=== PATIENT | male | born 1950 | race Caucasian/White ===

== ENCOUNTER 2020-03-17 08:34 | Outpatient (REF) | payer OTHER, SELFPAY ==
--- NOTE | 2020-03-17 | US_ITS ---
EXAMINATION: US RETROPERITONEAL LIMITED (AORTA) CLINICAL INFORMATION: Cardiovascular disorders. Smoker. COMPARISON: Ultrasound echo dated 03/15/2016 TECHNIQUE: Oleary-scale, color Doppler and spectral Doppler evaluation of the abdominal aorta. FINDINGS: The aorta is normal. The measurements of the aorta in maximum AP and transverse dimensions respectively are as follows: Proximal: 2.7 x 3.1 cm. Mid: 2.4 x 2.5 cm. Distal: 2.3 x 2.2 cm. PSV: 84.0 cm/s. The measurements of the common iliac arteries in maximum AP and TRV dimensions are as follows: AP: Right: 1.4 cm. Left: 1.4 cm. TRANS: Right: 1.5 cm. Left: 1.4 cm. US/US aorta IMPRESSION: There is a proximal abdominal aortic aneurysm that measures up to 3.1 cm in transverse dimension. Recommend continued attention on follow-up.
== END 2020-03-17 08:35 | disposition home or self-care (01) ==
LOC: HO.US 08:34
PROVIDERS: PCP Internal Medicine; Visit Provider Internal Medicine
DX: Z13.6 Encounter for screening for cardiovascular disorders (principal)
CPT/HCPCS: 76775

== ENCOUNTER → 2020-06-04 13:43 | Outpatient (BNVA) | payer OTHER, SELFPAY | PROVIDERS: PCP Internal Medicine; Visit Provider Internal Medicine Cardiovascular Disease | DX: I25.10 Atherosclerotic heart disease of native coronary artery without angina pectoris (principal); I10 Essential (primary) hypertension; I48.0 Paroxysmal atrial fibrillation | CPT/HCPCS: 93005 ==

== ENCOUNTER → 2020-06-05 07:51 | Outpatient (REF) | payer OTHER, SELFPAY ==
--- NOTE | 2020-06-05 07:55 | CA_ITS ---
Acquisition Time: 2020-06-05 08:58:03 Total Exercise Time: 00:07:17 Test Indications: Abnormal ECG Medications: METOPROLOL XARELTO ATORVASTATIN OMEPRAZOLE Protocol: CHELY Max HR: 133 BPM 86% of Pred: 153 BPM Max BP: 164/080 mmHG Max Work Load: 8.9 METS Exercise stress test with exercise 7 min 17 sec of Chley protocol, without anginal symptoms, with isolated PVC, with normotensive response to exercise, without EKG changes meeting criteria for ischemia. EKG tracings and report reviewed with Dr Little. Referred By: Robert Rai Overread By: EVANGELIST YOUNGER
== END ==
LOC: HO.CARD 07:51
PROVIDERS: Visit Provider Internal Medicine Cardiovascular Disease
DX: I25.10 Atherosclerotic heart disease of native coronary artery without angina pectoris (principal); I48.0 Paroxysmal atrial fibrillation
CPT/HCPCS: 93017

== ENCOUNTER → 2020-07-07 08:37 | Outpatient (BNVA) | payer OTHER, SELFPAY | PROVIDERS: PCP Internal Medicine; Visit Provider Nurse Practitioner ==

== ENCOUNTER → 2021-03-05 08:50 | Outpatient (BNVA) | payer OTHER, SELFPAY | PROVIDERS: PCP Internal Medicine; Visit Provider Nurse Practitioner ==

== ENCOUNTER → 2021-07-19 14:08 | Outpatient (BNVA) | payer OTHER, SELFPAY | PROVIDERS: PCP Internal Medicine; Visit Provider Hospitalist | DX: G47.33 Obstructive sleep apnea (adult) (pediatric) (principal); G82.20 Paraplegia, unspecified; J98.4 Other disorders of lung; G70.9 Myoneural disorder, unspecified; Z99.89 Dependence on other enabling machines and devices | CPT/HCPCS: 99202 ==

== ENCOUNTER → 2021-07-20 14:11 | Outpatient (BNVA) | payer OTHER, SELFPAY | PROVIDERS: PCP Internal Medicine; Visit Provider Internal Medicine Cardiovascular Disease | DX: I48.0 Paroxysmal atrial fibrillation (principal); I25.10 Atherosclerotic heart disease of native coronary artery without angina pectoris | CPT/HCPCS: 99212 ==

== ENCOUNTER 2021-07-23 15:28 | Outpatient (REF) | payer OTHER, SELFPAY ==
[2021-07-23 18:06] LABS: Appearance Urine HAZY; Color Urine STRAW; Glucose Urine UA NEG (NEG); Leukocyte Esterase Urine 3+ (NEG); Nitrite Urine POS (NEG); PH 6.5 (5.0-8.0); UACC Culture Trigger YES; Urine Blood 2+ (NEG); Urine Ketones NEG (NEG); Urine Protein NEG (NEG-TRACE)
[2021-07-23 18:18] LABS: Bacteria Urine 3+ /LPF; Squamous Epithelial Cell Urine TRACE /LPF
[2021-07-23 18:20] LABS: Calcium Oxalate Crystals Urine TRACE /LPF; WBC Urine 30-49 /HPF (0-4)
== END 2021-07-23 15:29 | disposition home or self-care (01) ==
LOC: HO.MANLNP 15:28
PROVIDERS: PCP Physician Assistant; Visit Provider Physician Assistant
DX: R30.0 Dysuria (principal)
CPT/HCPCS: 81001; 87086; 87088; 87186

== ENCOUNTER 2021-08-21 13:08 | Emergency (ER) | payer OTHER, SELFPAY ==
--- NOTE | ~2021-08-21 | CT_ITS ---
EXAMINATION: CT ABDOMEN AND PELVIS WITHOUT CONTRAST CLINICAL INFORMATION: History of brown urine. Evaluate for stone. COMPARISON: CT abdomen and pelvis from 05/23/2021. TECHNIQUE: Multidetector volumetric imaging was performed from the superior aspect of the liver through the pubic symphysis. Sagittal and coronal reformatted images were obtained on the technologist's workstation. This CT examination was performed using dose optimization techniques as appropriate, variously including the following: *Automated exposure control *Adjustment of mA and/or kV according to patient size (this includes techniques or standardized protocols for targeted exams where dose is matched to indication/reason for exam; i.e. extremities or head) *Use of iterative reconstruction technique DLP: 848 mGy-cm FINDINGS: LUNG BASES: Mild atelectasis at the dependent aspect of each lower lobe. No pulmonary consolidation or pleural effusion at either lung base. LIVER: The liver has normal size, shape, and attenuation. No evidence of liver mass. GALLBLADDER AND BILIARY TREE: Gallbladder has noncalcified stones. No gallbladder wall thickening or pericholecystic fluid. No dilated bile ducts. PANCREAS: No acute findings within the atrophied pancreas. No edema, pancreatic ductal dilatation or mass. SPLEEN: Again noted is mild splenomegaly. The spleen measures 14.5 cm AP dimension. ADRENAL GLANDS: Normal. KIDNEYS AND URETERS: Kidneys are normal in size. 3.8 cm cortical cyst of the mid left kidney has a simple appearance. No renal imaging follow-up is recommended for a simple cyst. There are two clustered stones (0.4 cm and 0.3 cm stones) of the upper pole of the left kidney. No large renal calculi. No ureteral stones or hydronephrosis. BLADDER: Urinary bladder is decompressed by a suprapubic catheter. No bladder calculi. BOWEL AND PERITONEUM: [id number]-[id number] sized sliding-type hiatal hernia. No dilated bowel loops. No ascites or pneumoperitoneum. The appendix is normal. Moderate amount fecal material is present in the colon. Again noted is the edema in the presacral space without presacral or perirectal fluid collection. ABDOMINAL WALL: There is no fluid around the suprapubic catheter. Again noted is mild protrusion of fat and trace fluid of the proximal right inguinal canal. VASCULATURE: Atherosclerotic calcification of the abdominal aorta without aneurysm. LYMPH NODES: No pathologic sized lymph nodes in the abdomen or pelvis. No inguinal lymphadenopathy. PELVIC VISCERA: Prostate gland is unremarkable. SKELETAL: No acute findings within the extensively degenerated spine. No compression fractures. A metallic device/pump is seen in subcutaneous tissues of the right lower lateral abdominal wall. A catheter enters the spinal canal at the T12-L1 level and ascends into the thoracic spinal canal. CT/CT abdomen pelvis wo con IMPRESSION: * Cholelithiasis without evidence of acute gallbladder inflammation. No pericholecystic fluid. The previously observed cholecystostomy tube has been removed. * Small, nonobstructing stones are present in the posterior upper pole the left kidney. No ureterolithiasis or hydronephrosis. Urinary bladder is decompressed by Gregg catheter. * Mild splenomegaly is unchanged compared to 05/23/2021. * Lgmek-ti-[id number] hiatal hernia.
[2021-08-21 13:14] VITALS: BP 104/43; PULSE 67; RESP 18; TEMP 37.1; O2SAT 97
[2021-08-21 13:20] VITALS: BP 117/46; PULSE 73; O2SAT 96
[2021-08-21 13:21] VITALS: BMI 32.1
--- NOTE | 2021-08-21 13:32 | PC.NURSE ---
Pt incontinent of stool, incontinence care performed with ax2. white floaties noted in pts catheter bag. Pt denies fevers at home. Pts aid is at bedside.
--- NOTE | 2021-08-21 14:00 | ED_ITS ---
HPI - Male Genitourinary General Chief complaint: Urogenital-Male Stated complaint: uti Time Seen by Provider: 08/21/21 13:51 Source: patient Mode of arrival: ambulatory Limitations: physical limitation (parapelegic) History of Present Illness HPI Narrative: 71-year-old paraplegic with a suprapubic catheter presents emergency room for dark cloudy urine that was noticed by his [employer] yesterday. Patient lives at home and has 24/ care, he became a paraplegic because of an accident 1 year ago. He has had a suprapubic catheter for 1 year, states that he gets changed every 6-8 weeks, is due to be changed out in 2 days. Patient also has a baclofen pump in his abdomen. No fevers, no back pain, no nausea, vomiting, diarrhea, abdominal pain, shortness of breath, or chest pain. Patient has had 3-4 UTIs since last year. States that he feels perfectly well today, he is only here for the cloudy dark urine that was noticed yesterday. Related Data Home Medications Medication Instructions Recorded Confirmed CPAP (CPAP Machine/Device) 07/19/21 07/20/21 Lactobacillus rhamnosus GG 15 1 cap PO DAILY 07/19/21 07/20/21 billion cell sprinkle capsule (Culturelle) apixaban 5 mg tablet (Eliquis) 5 mg PO Q12H 07/19/21 07/20/21 ascorbic acid (vitamin C) 250 mg 250 mg PO DAILY 07/19/21 07/20/21 tablet baclofen 2,000 mcg/mL intrathecal 200 mcg INTRATHECAL DAILY 07/19/21 07/20/21 solution baclofen 5 mg tablet mg PO 07/19/21 07/20/21 [facility]-castor oil topical TOPICAL 07/19/21 07/20/21 ointment (Venelex) bisacodyl 10 mg rectal suppository 10 mg VA DAILY PRN 07/19/21 07/20/21 chlorhexidine gluconate 0.12 % 15 ml PO BID 07/19/21 07/20/21 mouthwash gabapentin 300 mg capsule 300 mg PO BID 07/19/21 07/20/21 magnesium hydroxide 400 mg/5 mL PO 07/19/21 07/20/21 oral suspension (Milk of Magnesia) melatonin 3 mg tablet 6 mg PO DAILY 07/19/21 07/20/21 multivitamin 1 tab PO DAILY 07/19/21 07/20/21 pantoprazole 40 mg tablet,delayed 40 mg PO BID 07/19/21 07/20/21 release polyethylene glycol 3350 17 g PO 07/19/21 07/20/21 gram/dose oral powder (Purelax) psyllium husk 0.4 gram capsule 0.4 g PO DAILY 07/19/21 07/20/21 (Metamucil) sennosides 8.6 mg tablet (Senokot) 8.6 mg PO DAILY 07/19/21 07/20/21 acetaminophen 325 mg tablet 325 mg PO PRN tab 07/20/21 07/20/21 aluminum-mag hydroxide-simethicone ml PO PRN 07/20/21 07/20/21 200 mg-200 mg-20 mg/5 mL oral susp (Antacid-Antigas) midodrine 10 mg tablet 10 mg PO PRN tab 07/20/21 07/20/21 Previous Rx's Medication Instructions Recorded cefuroxime axetil 500 mg tablet 500 mg PO BID 10 Days #20 tab 08/21/21 Allergies Allergy/AdvReac Type Severity Reaction Status Date / Time No Known Allergies Allergy Verified 07/19/21 14:19 [No Known Allergies*] Review of Systems Constitutional: Constitutional: Denies body ache(s), Denies chills, Denies fatigue, Denies fever(s), Denies headache(s), Denies malaise and Denies weakness Eyes: Eyes: Denies diplopia ENT: Denies vertigo, Denies dizziness, Denies headache(s) and Reports post nasal drip Cardiovascular: Cardiovascular: Denies chest pain, Denies syncope, Denies leg edema, Denies lightheadedness, Denies Loss of Consciousness, Denies palpitations and Denies dyspnea Respiratory: Respiratory: Denies chest congestion, Denies cough and Denies dyspnea Gastrointestinal: Gastrointestinal: Denies abdominal pain, Denies hematochezia, Denies constipation, Denies diarrhea, Denies nausea and Denies vomiting Genitourinary: Genitourinary: Denies flank pain, Denies penile discharge, Denies scrotal swelling, Denies testicular mass, Denies testicular pain and Reports other (Dark cloudy urine) Musculoskeletal: Musculoskeletal: Reports no additional musculoskeletal complaints and Denies back pain Neurologic: Denies confusion, Denies vertigo, Denies dizziness, Denies syncope, Denies headache(s) and Denies weakness Psychiatric: Psychiatric: Denies anxiety, Denies confusion and Denies depression Endocrine: Endocrine: Denies fatigue and Denies palpitations PMFSH Past Medical History Medical History CAD (coronary artery disease) HTN (hypertension) LATANYA on CPAP Paraplegia Paroxysmal atrial fibrillation Restrictive lung mechanics due to neuromuscular disease Surgical History History of carpal tunnel release History of hip surgery Hx of colonoscopy Hx of rotator cuff surgery Family History Family History Father Diabetes HTN (hypertension) CVD (cardiovascular disease) Mother CVD (cardiovascular disease) Diabetes HTN (hypertension) Brother CVD (cardiovascular disease) Diabetes HTN (hypertension) Social History Social History Alcohol intake: current Alcohol intake frequency: former alcohol drinker Patient Tobacco Use Status: Former Tobacco user Tobacco use type: Cigarette Years Smoked: 20 years Advance Directives: No Advance Directives Information Provided: No Physical Exam Vital Signs: Vital Signs: Last Vital Signs Temp 97.5 F 08/21/21 15:17 Pulse 55 08/21/21 15:17 Resp 18 08/21/21 15:17 BP 114/50 L 08/21/21 15:17 Pulse Ox 98 08/21/21 15:17 BMI result Body Mass Index 32.1 Const: General: comfortable, no acute distress, alert and awake; No confusion Nutritional Appearance: well nourished Orientation/consciousness: patient oriented x3 and No confusion Limitations: no limitations HEENT: Head: Yes normal to inspection, Yes normocephalic and Yes atraumatic Ears: hearing grossly normal bilaterally, external ears normal, TM's normal bilaterally and EAC's normal General nose exam: Normal external nose present Face and sinus: Yes normal facial exam and Yes sinuses nontender Mouth: Normal oral and palatal mucosa present Throat: Yes posterior oropharynx normal Eyes: Conjunctivae: conjunctivae normal Pupils: Equal, round and reactive pupils present EOM: EOMs intact bilaterally Neck: Neck: Yes full ROM, Yes no lymphadenopathy and Yes supple Resp: Effort & Inspection: normal respiratory effort and able to speak in complete sentences Auscultation: clear to auscultation bilaterally, no crackles, no rales, no rhonchi and no wheezes Cardio: Rate: regular rate Rhythm: regular rhythm Heart sounds: S1 normal heart sound present and S2 normal heart sound present GI: Inspection: Yes normal to inspection Palpation (GI): Soft to palpation, nontender, no guarding and not rigid Percussion: Yes normal to percussion Auscultation: normal bowel sounds Skin: General skin exam: no rashes or lesions noted Neuro: General: patient oriented x3 and No confusion Cranial nerves: Yes Equal, round and reactive pupils present Extrem: Other: parapelegic Psych: Appearance: grossly normal Affect: normal affect Attitude: cooperative Thought process: Normal thought process present Course Course Course Narrative: 71-year-old paraplegic with suprapubic catheter presents for concern for urinary tract infection. Patient has had dark cloudy urine yesterday, and today there is sediment in his urine. No fevers, patient appears well. Vitals are stable. Due to report of dark cloudy urine, and concerned the patient may not be able to have sensation of kidney stone, will get CT abdomen pelvis to rule this out. Getting labs, urine. Prior urine culture showed Pseudomonas susceptible to all antibiotics. Reevaluation(s) Reevaluation #1: Labs remarkable for mild anemia, patient has a dirty urine. No evidence of kidney stone. Will treat with antibiotics, give return precautions, f/u with PCP CT/CT abdomen pelvis wo con IMPRESSION: *? Cholelithiasis without evidence of acute gallbladder inflammation. No pericholecystic fluid. The previously observed cholecystostomy tube has been removed. *? Small, nonobstructing stones are present in the posterior upper pole the left kidney. No ureterolithiasis or hydronephrosis. Urinary bladder is decompressed by Gregg catheter. *? Mild splenomegaly is unchanged compared to 05/23/2021. *? Enbhl-lu-ihorkxth hiatal hernia. ? MDM - Male Genitourinary Lab Data Result diagrams: 08/21/21 14:46 08/21/21 14:46 Labs: Lab Results 04/16/22 04/16/22 04/16/22 Range/Units 14:46 14:46 14:57 WBC 7.0 (4.8-10.8) X10*3/uL RBC 4.18 L (4.60-5.80) X10*6/uL Hgb 11.0 L (14.0-18.0) g/dl Hct 34.7 L (42.0-52.0) % MCV 83.0 (80.0-98.0) fL MCH 26.3 L (27.0-33.0) pg MCHC 31.7 (31.0-36.0) g/dl RDW 15.3 (11.0-16.0) % Plt Count 197 (160-400) X10*3/uL MPV 10.0 (9.4-12.4) fL Immature Gran % (Auto) 0.1 (0.0-0.4) % Neut % (Auto) 76.5 H (45-73) % Lymph % (Auto) 15.2 L (20-40) % Jerome % (Auto) 5.5 (2-11) % Eos % (Auto) 2.4 (0-4) % Baso % (Auto) 0.3 (0-2) % Lymph # (Auto) 1.1 L (1.2-4.9) X10*3/uL Jerome # (Auto) 0.4 (0.1-1.2) X10*3/uL Eos # (Auto) 0.2 (0.0-0.4) X10*3/uL Baso # (Auto) 0.0 (0.0-0.2) X10*3/uL Abs Immat Gran (auto) 0.01 (0.00-0.03) X10*3/uL Absolute Neuts (auto) 5.4 (2.0-8.3) x10*3/uL Absolute Nucleated RBC 0.000 (0.0-0.012) X10*3/uL Nucleated RBC % (auto) 0.0 (0.0-0.2) /100WBC Sodium 138 (135-145) mmol/L Potassium 3.6 (3.3-5.1) mmol/L Chloride 103 (96-108) mmol/L Carbon Dioxide 26 (22-29) mmol/L Anion Gap 13 (12-20) BUN 15 (9-16) mg/dL Creatinine 0.52 (0.5-1.4) mg/dL Estim Creat Clear Calc 150.6 Estimated GFR > 60 Random Glucose 106 (60-115) mg/dL Calcium 9.3 (8.4-10.2) mg/dL Total Bilirubin 0.5 (0.0-1.0) mg/dL AST 12 (5-37) U/L ALT 9 (0-40) U/L Alkaline Phosphatase 65 (39-117) U/L Total Protein 6.5 (6.5-8.0) g/dL Albumin 3.6 (3.5-5.0) g/dL Urine Color YELLOW Urine Appearance CLOUDY Urine pH 6.5 (5.0-8.0) Ur Specific Wittmann <= 1.005 (1.005-1.025) Urine Protein NEG (NEG-TRACE) MG/DL Urine Glucose (UA) NEG (NEG) MG/DL Urine Ketones NEG (NEG) MG/DL Urine Blood TRACE (NEG) Urine Nitrite POS H (NEG) Ur Leukocyte Esterase 3+ H (NEG) Urine RBC 1-4 (0) /HPF Urine WBC TNTC H (0-4) /HPF Ur Squamous Epith Cells TRACE /LPF Amorphous Sediment TRACE /LPF Urine Bacteria 2+ /LPF Discharge Plan Discharge Clinical Impression: Acute UTI Patient Disposition: Home, Self-Care Instructions: Urinary Tract Infection in Men (DC) Additional Instructions: Please call your primary care provider on Monday morning for follow-up appointment. Please take your medication as prescribed. If you have fevers, back pain, or any new or concerning symptoms, please return to emergency room. I also referred you to Dr. Estrada, urologist, for follow-up appointment. Prescriptions: New cefuroxime axetil 500 mg tablet 500 mg PO BID 10 Days Qty: 20 0RF No Action pantoprazole 40 mg tablet,delayed release (DR/EC) 40 mg PO BID 0RF polyethylene glycol 3350 [Purelax] 17 gram/dose powder PO 0RF magnesium hydroxide [Milk of Magnesia] 400 mg/5 mL suspension PO 0RF Eliquis 5 mg tablet 5 mg PO Q12H 0RF balsam anita-castor oil [Venelex] Ointment topical 0RF baclofen 5 mg tablet PO 0RF chlorhexidine gluconate 0.12 % mouthwash 15 ml PO BID 0RF gabapentin 300 mg capsule 300 mg PO BID 0RF (DME) CPAP Machine/Device Device See Rx Instructions .Route 0RF Rx Instructions: As directed baclofen 2,000 mcg/mL solution 200 mcg intrathecal DAILY 0RF Rx Instructions: administer over 24 hrs sennosides [Senokot] 8.6 mg tablet 8.6 mg PO DAILY 0RF Culturelle 15 billion cell capsule, sprinkle 1 cap PO DAILY 0RF multivitamin Tablet 1 tab PO DAILY 0RF ascorbic acid (vitamin C) 250 mg tablet 250 mg PO DAILY 0RF psyllium husk [Metamucil] 0.4 gram capsule 0.4 g PO DAILY 0RF melatonin 3 mg tablet 6 mg PO DAILY 0RF bisacodyl 10 mg suppository 10 mg VA DAILY PRN0RF acetaminophen 325 mg tablet 325 mg PO PRN0RF alum-mag hydroxide-simeth [Antacid-Antigas] 200-200-20 mg/5 mL suspension PO PRN0RF midodrine 10 mg tablet 10 mg PO PRN0RF Referrals: Rigoberto Estrada MD [Physician] -
[2021-08-21 14:51] LABS: MANUAL DIFF FLAG NO
[2021-08-21 14:52] LABS: Basophils Percent Auto 0.3 % (0-2); Eosinophils Absolute Auto 0.2 X10*3/uL (0.0-0.4); Eosinophils Percent Auto 2.4 % (0-4); Hematocrit 34.7 % (42.0-52.0); Imm Gran Abs Auto 0.01 X10*3/uL (0.00-0.03); Imm Gran Pct Auto 0.1 % (0.0-0.4); Lymphocytes Absolute Auto 1.1 X10*3/uL (1.2-4.9); Lymphocytes Percent Auto 15.2 % (20-40); Mean Corpuscular HGB Conc 31.7 g/dl (31.0-36.0); Mean Corpuscular Hemoglobin 26.3 pg (27.0-33.0); Monocytes Absolute Auto 0.4 X10*3/uL (0.1-1.2); Monocytes Percent Auto 5.5 % (2-11); Neutrophils Absolute Auto 5.4 x10*3/uL (2.0-8.3); Neutrophils Percent Auto 76.5 % (45-73); Platelet Count 197 X10*3/uL (160-400); Red Blood Count 4.18 X10*6/uL (4.60-5.80); Red Cell Distribution Width 15.3 % (11.0-16.0)
[2021-08-21 15:08] LABS: Appearance Urine CLOUDY; Color Urine YELLOW; Glucose Urine UA NEG (NEG); Leukocyte Esterase Urine 3+ (NEG); Nitrite Urine POS (NEG); PH 6.5 (5.0-8.0); Specific Gravity - Urine <= 1.005 (1.005-1.025); UACC Culture Trigger YES; Urine Blood TRACE (NEG); Urine Ketones NEG (NEG); Urine Protein NEG (NEG-TRACE)
[2021-08-21 15:10] LABS: Alanine Aminotransferase 9 U/L (0-40); Albumin Level 3.6 g/dL (3.5-5.0); Alkaline Phosphatase 65 U/L (39-117); Anion Gap 13 (12-20); Aspartate Amino Transferase 12 U/L (5-37); Bilirubin Total 0.5 mg/dL (0.0-1.0); Blood Urea Nitrogen 15 mg/dL (9-16); Calcium 9.3 mg/dL (8.4-10.2); Carbon Dioxide 26 mmol/L (22-29); Chloride 103 mmol/L (96-108); Creatinine Clr Calc Pharmacy 150.6; Estimated Glomerular Filt Rate > 60; Glucose Random 106 mg/dL (60-115); Potassium 3.6 mmol/L (3.3-5.1); Sodium 138 mmol/L (135-145); Total Protein 6.5 g/dL (6.5-8.0)
[2021-08-21 15:17] VITALS: BP 114/50; PULSE 55; RESP 18; TEMP 36.4; O2SAT 98
[2021-08-21 15:33] LABS: Amorphous Sediment Urine TRACE /LPF; Bacteria Urine 2+ /LPF; Squamous Epithelial Cell Urine TRACE /LPF; WBC Urine TNTC /HPF (0-4)
[2021-08-21] MEDS: cephALEXin 500 MG CAPSULE PO (18:18)
== END 2021-08-21 18:25 | disposition home or self-care (01) ==
PROVIDERS: Physician Assistant; Emergency Provider Emergency Medicine
DX: N39.0 Urinary tract infection, site not specified (principal); G82.20 Paraplegia, unspecified; I10 Essential (primary) hypertension; I48.0 Paroxysmal atrial fibrillation; I25.10 Atherosclerotic heart disease of native coronary artery without angina pectoris; G47.33 Obstructive sleep apnea (adult) (pediatric); Z99.89 Dependence on other enabling machines and devices; Z93.50 Unspecified cystostomy status
CPT/HCPCS: 36415; 74176; 80053; 81001; 85025; 87086; 99283; 99284

== ENCOUNTER → 2021-10-15 13:26 | Outpatient (BNVA) | payer OTHER, SELFPAY | PROVIDERS: PCP Internal Medicine; Visit Provider Hospitalist | DX: G47.33 Obstructive sleep apnea (adult) (pediatric) (principal); G82.20 Paraplegia, unspecified; J98.4 Other disorders of lung; G70.9 Myoneural disorder, unspecified; Z99.89 Dependence on other enabling machines and devices | CPT/HCPCS: 99212 ==

== ENCOUNTER → 2022-01-27 14:06 | Outpatient (BNVA) | payer OTHER, SELFPAY | PROVIDERS: PCP Internal Medicine; Visit Provider Hospitalist | DX: G47.33 Obstructive sleep apnea (adult) (pediatric) (principal); G82.20 Paraplegia, unspecified; J98.4 Other disorders of lung; G70.9 Myoneural disorder, unspecified; Z99.89 Dependence on other enabling machines and devices | CPT/HCPCS: 99212 ==

== ENCOUNTER 2022-02-16 13:21 | Outpatient (REF) | payer OTHER, SELFPAY ==
[2022-02-16 15:12] LABS: Anion Gap 15 (12-20); Blood Urea Nitrogen 19 mg/dL (9-16); Calcium 9.4 mg/dL (8.4-10.2); Carbon Dioxide 29 mmol/L (22-29); Chloride 100 mmol/L (96-108); Estimated Glomerular Filt Rate > 60; Glucose Random 93 mg/dL (60-115); Potassium 4.4 mmol/L (3.3-5.1); Sodium 140 mmol/L (135-145)
== END 2022-02-16 13:22 | disposition home or self-care (01) ==
LOC: HO.LAB 13:21
PROVIDERS: Visit Provider Internal Medicine Cardiovascular Disease
DX: I48.0 Paroxysmal atrial fibrillation (principal)
CPT/HCPCS: 36415; 80048

== ENCOUNTER → 2022-07-21 14:26 | Outpatient (BNVA) | payer OTHER, SELFPAY | PROVIDERS: PCP Internal Medicine; Visit Provider Internal Medicine Cardiovascular Disease | DX: I48.0 Paroxysmal atrial fibrillation (principal); I25.10 Atherosclerotic heart disease of native coronary artery without angina pectoris | CPT/HCPCS: 93005; 99212 ==

== ENCOUNTER 2022-08-14 16:43 | Emergency (ER) | payer OTHER, SELFPAY ==
--- NOTE | ~2022-08-14 | XR_ITS ---
EXAMINATION: CR CHEST CLINICAL INFORMATION: Weakness. COMPARISON: Chest x-ray dated 08/19/2015. TECHNIQUE: Frontal view of the chest was obtained on 2 images. FINDINGS: The cardiomediastinal silhouette is borderline enlarged, possibly related to AP portable technique. Lungs bilaterally are symmetrically expanded and clear. No focal consolidation, effusion or pneumothorax is seen. Old healed posterior left fifth, sixth, and seventh rib fractures are seen. Moderate vertebral spurring seen in the mid and lower thoracic spine. Bone anchor is projected over the left humeral head. XR/XR chest 1V IMPRESSION: 1. No acute cardiopulmonary process. 2. Borderline enlarged cardiomediastinal silhouette, possibly related to AP portable technique.
[2022-08-14 16:50] VITALS: BP 124/74; PULSE 60; O2SAT 98
[2022-08-14 17:02] VITALS: BP 115/45; PULSE 57; RESP 18; TEMP 36.4; O2SAT 98; BMI 36.2
--- NOTE | 2022-08-14 17:13 | ED.GENADULT ---
HPI - General Adult General Chief complaint: General Medical <Hung Quintana - Last Filed: 08/14/22 19:32> Stated complaint: PERIOD OF UNRESP PER FAMILY,WOKE AFTER EMS ARRIVAL <Hung Quintana - Last Filed: 08/14/22 19:32> Time Seen by Provider: 08/14/22 17:02 <Hung Quintana - Last Filed: 08/14/22 19:32> Source: patient, family, RN notes reviewed and old records reviewed <Hung Quintana - Last Filed: 08/14/22 19:32> Mode of arrival: EMS <Hung Quintana Last Filed: 08/14/22 19:32> Limitations: physical limitation <Hung Quintana Last Filed: 08/14/22 19:32> History of Present Illness HPI narrative: 72-year-old male with past medical history significant for paroxysmal AFib on Eliquis, hypertension, GERD, coronary artery disease, obesity, paraplegia erase cervical spine injury 2 years ago who presents for evaluation of unresponsiveness. Patient arrived to the ER awake, alert oriented at his baseline per family. Apparently around 3:00 p.m. family could not wake the patient and this lasted for approximately an hour despite repeated x2 weeks patient including sternal rubs. The patient has no complaints and does not know why he would not wake up. Per family the patient had ?pinpoint pupils the time. ? This has reportedly happened on 1 or 2 occasions in the past but not such a prolonged period of about an hour Per family there was no period of confusion after the patient woke up Apparently the patient woke up on the EMS stretcher when he was being wheeled to his front door He denies any headaches, fevers, chills, chest pain, shortness of breath, abdominal pain, nausea vomiting, diarrhea <Hung Quintana Last Filed: 08/14/22 19:32> Related Data Home medications: Home Medications Medication Instructions Recorded Confirmed CPAP (CPAP Machine/Device) 07/19/21 07/21/22 Lactobacillus rhamnosus GG 15 1 cap PO DAILY 07/19/21 07/21/22 billion cell sprinkle capsule (Culturelle) apixaban 5 mg tablet (Eliquis) 5 mg PO Q12H 07/19/21 07/21/22 ascorbic acid (vitamin C) 250 mg 250 mg PO DAILY 07/19/21 07/21/22 tablet balsam anita-castor oil topical topical 07/19/21 07/21/22 ointment (Venelex topical ointment) multivitamin 1 tab PO DAILY 07/19/21 07/21/22 pantoprazole 40 mg tablet,delayed 40 mg PO BID 07/19/21 07/21/22 release acetaminophen 325 mg tablet 325 mg PO PRN 07/20/21 07/21/22 aluminum-mag hydroxide-simethicone ml PO PRN 07/20/21 07/21/22 200 mg-200 mg-20 mg/5 mL oral susp (Antacid-Antigas) midodrine 10 mg tablet 10 mg PO PRN 07/20/21 07/21/22 baclofen 2,000 mcg/mL intrathecal 207 mcg intrathecal DAILY 10/15/21 07/21/22 solution baclofen 5 mg tablet mg PO TID 10/15/21 07/21/22 bisacodyl 10 mg rectal suppository 10 mg SC DAILY 10/15/21 07/21/22 gabapentin 300 mg capsule 300 mg PO TID 10/15/21 07/21/22 magnesium hydroxide 400 mg/5 mL PO PRN 10/15/21 07/21/22 oral suspension (Milk of Magnesia) melatonin 3 mg tablet 10 mg PO DAILY 10/15/21 07/21/22 nystatin 100,000 unit/gram topical topical 10/15/21 07/21/22 powder polyethylene glycol 3350 17 g PO PRN 10/15/21 07/21/22 gram/dose oral powder (Purelax) chlorhexidine gluconate 0.12 % 15 ml PO TID 01/27/22 07/21/22 mouthwash methenamine hippurate 1 gram tablet 1 g PO BID 01/27/22 07/21/22 sennosides 8.6 mg tablet (Senokot) 17.2 mg PO DAILY 01/27/22 07/21/22 silver sulfadiazine 1 % topical appl topical BID 01/27/22 07/21/22 cream <Hung Quintana - Last Filed: 08/14/22 19:32> Allergies/adverse reactions: Allergies Allergy/AdvReac Type Severity Reaction Status Date / Time No Known Allergies Allergy Verified 01/27/22 14:37 [No Known Allergies*] <Hung O Last Filed: 08/14/22 19:32> Review of Systems Constitutional: Constitutional: Reports as per HPI, Denies chills, Denies fatigue, Denies fever(s) and Denies headache(s) <Hung Last Filed: 08/14/22 19:32> ENT: Denies headache(s) < Last Filed: 08/14/22 19:32> Cardiovascular: Cardiovascular: Denies chest pain and Denies dyspnea < Last Filed: 08/14/22 19:32> Respiratory: Respiratory: Denies cough and Denies dyspnea < Last Filed: 08/14/22 19:32> Gastrointestinal: Gastrointestinal: Denies abdominal pain, Denies constipation and Denies vomiting <Hung Last Filed: 08/14/22 19:32> Genitourinary: Genitourinary: Denies difficulty urinating and Denies dysuria <Hung Last Filed: 08/14/22 19:32> Neurologic: Denies headache(s) and Denies focal weakness <Hung Last Filed: 08/14/22 19:32> Endocrine: Endocrine: Denies fatigue < Last Filed: 08/14/22 19:32> [facility] Past Medical History Medical History: Medical History CAD (coronary artery disease) HTN (hypertension) LATANYA on CPAP Paraplegia Paroxysmal atrial fibrillation Restrictive lung mechanics due to neuromuscular disease <Hung O Last Filed: 08/14/22 19:32> Surgical History: Surgical History History of carpal tunnel release History of hip surgery Hx of colonoscopy Hx of rotator cuff surgery <Hung Rossi Last Filed: 08/14/22 19:32> Family History Family History: Family History Father Diabetes HTN (hypertension) CVD (cardiovascular disease) Mother CVD (cardiovascular disease) Diabetes HTN (hypertension) Brother CVD (cardiovascular disease) Diabetes HTN (hypertension) <Hung Quintana Last Filed: 08/14/22 19:32> Social History Social History: Social History Alcohol intake: current Alcohol intake frequency: former alcohol drinker Patient Tobacco Use Status: Former Tobacco user Tobacco use type: Cigarette Years Smoked: 20 years Smoked in Last 30 Days: No Advance Directives: No Advance Directives Information Provided: No <Hung Quintana Last Filed: 08/14/22 19:32> Physical Exam ED Vital Signs: Vital Signs - 24 hr 08/14/22 17:02 Temperature 97.6 F Pulse Rate 57 Respiratory Rate 18 Blood Pressure 115/45 L Pulse Oximetry 98 Oxygen Delivery Method Room Air BMI result Body Mass Index 36.2 <Hung Quintana - Last Filed: 08/14/22 19:32> Vital Signs - 24 hr 08/14/22 17:02 Temperature 97.6 F Pulse Rate 57 Respiratory Rate 18 Blood Pressure 115/45 L Pulse Oximetry 98 Oxygen Delivery Method Room Air BMI result Body Mass Index 36.2 <JASMYNE Cronin - Last Filed: 08/20/22 09:31> Const General: healthy appearing, comfortable, no acute distress, alert and awake <Hung Quintana - Last Filed: 08/14/22 19:32> Nutritional Appearance: well nourished <Hung Quintana - Last Filed: 08/14/22 19:32> Orientation/consciousness: patient oriented x3 <Hung Quintana - Last Filed: 08/14/22 19:32> HENMT Head: Yes normocephalic and Yes atraumatic <Hung Quintana Last Filed: 08/14/22 19:32> Throat: Yes posterior oropharynx normal <Hung Quintana Last Filed: 08/14/22 19:32> Eyes Eyelids: Yes eyelids normal <Hung Quintana - Last Filed: 08/14/22 19:32> Conjunctivae: conjunctivae normal <Hung Quintana - Last Filed: 08/14/22 19:32> Sclerae: sclerae normal <Hung OSherman - Last Filed: 08/14/22 19:32> Corneas: corneas normal <Hung O Last Filed: 08/14/22 19:32> Pupils: Equal, round and reactive pupils present <Hung ODante - Last Filed: 08/14/22 19:32> EOM: EOMs intact bilaterally <Hung O Last Filed: 08/14/22 19:32> Neck Neck: Yes full ROM <Hung O Last Filed: 08/14/22 19:32> Resp Effort & Inspection: normal respiratory effort, able to speak in complete sentences, no audible wheezes and not labored <Hung O Last Filed: 08/14/22 19:32> Auscultation: clear to auscultation bilaterally <Hung Last Filed: 08/14/22 19:32> Cardio Rate: regular rate <Hung Last Filed: 08/14/22 19:32> Rhythm: regular rhythm < Filed: 08/14/22 19:32> GI Inspection: No distended <Hung O Filed: 08/14/22 19:32> Palpation (GI): Soft to palpation, not firm, nontender, no guarding and not rigid <Hung O Last Filed: 08/14/22 19:32> Auscultation: normoactive bowel sounds <Hung O Last Filed: 08/14/22 19:32> Skin General skin exam: no rashes or lesions noted and elasticity normal <Hung O Last Filed: 08/14/22 19:32> Neuro Other: Contractures to bilateral upper extremities. This patient has severely limited range of motion to the upper extremities. He has no motor ability to lower extremities. Gross sensation is intact to about the waist <Hung OSherman - Last Filed: 08/14/22 19:32> General: patient oriented x3 <Hung ODante - Last Filed: 08/14/22 19:32> Cranial nerves: Yes CN's II-XII intact bilaterally, Yes Equal, round and reactive pupils present and Yes Bilaterally intact EOM present <Hung Hollyy - Last Filed: 08/14/22 19:32> Cognition (Neuro): normal cognition <Hung RossiKaylanDante - Last Filed: 08/14/22 19:32> Course Reevaluation(s) Reevaluation #1: Patient's workup significant for a mild anemia is actually improved from baseline, no leukocytosis, ABG significant for mild hypercapnia but not a level an offsite cause unresponsiveness or somnolence. I did discuss this the patient and caregiver. He does have CPAP machine at home which he has been using. The patient has bacteriuria but he has a chronic suprapubic catheter, no abdominal discomfort, no fevers, no white count. Her the patient and his caregiver, he always has bacteria in his urine, will not treat as an active UTI as he has no symptoms of such. The patient has remained awake, and oriented with stable vital signs throughout his stay in the ER. He is still for discharge at this time <Hung Quintana - Last Filed: 08/14/22 19:32> Time: 19:30 <Hung Barreray - Last Filed: 08/14/22 19:32> Reevaluation #2: 08/20/2022--929--patient's urine culture grew Pseudomonas and Klebsiella with ESBL, called and spoke with patient and this morning made aware of results and need to return to ED for admission/IV antibiotics. and patient skeptical, report they found nothing on ED visit, state they will not return to the emergency department for IV antibiotics. Report they will wait & tell their PCP on Monday. Discussed with patient this could cause /sepsis. <JASMYNE Cronin - Last Filed: 08/20/22 09:31> Medical Decision Making Medical Decision Making MDM Narrative: 72-year-old male presents for evaluation of a period of unresponsiveness that lasted approximately 1 hour. Per family the patient had pinpoint pupils the time. He arrived to the ER awake, and oriented. No complaints. His neuro status is at his reported baseline. Will check basic labs, VBG to apnea. Will check a drug screen to check for opiates. There are no prescribed opiates in the patient's medication list <Hung Quintana - Last Filed: 08/14/22 19:32> Differential Diagnosis Unresponsiveness Syncope Orthostasis Opiate overdose Hypercapnia Seizure disorder Hyperammonemia <Hung Quintana - Last Filed: 08/14/22 19:32> Lab Data Result Diagrams: 08/14/22 17:44 08/14/22 17:44 <Hung Quintana - Last Filed: 08/14/22 19:32> Labs: Lab Results 08/14/22 08/14/22 08/14/22 Range/Units 17:44 17:44 17:44 WBC 7.0 (4.8-10.8) X10*3/uL RBC 4.65 (4.60-5.80) X10*6/uL Hgb 13.3 L D (14.0-18.0) g/dl Hct 41.1 L (42.0-52.0) % MCV 88.4 (80.0-98.0) fL MCH 28.6 (27.0-33.0) pg MCHC 32.4 (31.0-36.0) g/dl RDW 14.6 (11.0-16.0) % Plt Count 198 (160-400) X10*3/uL MPV 11.0 (9.4-12.4) fL Immature Gran % (Auto) 0.3 (0.0-0.4) % Neut % (Auto) 74.8 H (45-73) % Lymph % (Auto) 18.4 L (20-40) % Crowley % (Auto) 4.2 (2-11) % Eos % (Auto) 1.9 (0-4) % Baso % (Auto) 0.4 (0-2) % Lymph # (Auto) 1.3 (1.2-4.9) X10*3/uL Crowley # (Auto) 0.3 (0.1-1.2) X10*3/uL Eos # (Auto) 0.1 (0.0-0.4) X10*3/uL Baso # (Auto) 0.0 (0.0-0.2) X10*3/uL Abs Immat Gran (auto) 0.02 (0.00-0.03) X10*3/uL Absolute Neuts (auto) 5.2 (2.0-8.3) x10*3/uL Absolute Nucleated RBC 0.000 (0.0-0.012) X10*3/uL Nucleated RBC % (auto) 0.0 (0.0-0.2) /100WBC O2 Saturation % ABG pH at Pt Temp (7.35-7.45) ABG pCO2 at Pt Temp (32-45) mmHg ABG pO2 at Pt Temp (83-108) mmHg ABG HCO3 (22-26) mmol/L ABG Base Excess (Actual) mmol/L Sodium 139 (135-145) mmol/L Potassium 4.3 (3.3-5.1) mmol/L Chloride 101 (96-108) mmol/L Carbon Dioxide 31 H (22-29) mmol/L Anion Gap 11 L (12-20) BUN 15 (9-16) mg/dL Creatinine 0.66 (0.5-1.4) mg/dL Estim Creat Clear Calc 124.2 Estimated GFR > 60 Random Glucose 104 (60-115) mg/dL Calcium 9.2 (8.4-10.2) mg/dL Magnesium 1.9 (1.6-2.6) mg/dL Total Bilirubin 0.5 (0.0-1.0) mg/dL AST 16 (5-37) U/L ALT 13 (0-40) U/L Alkaline Phosphatase 70 (39-117) U/L Ammonia 29 (13-55) umol/L Total Protein 7.0 (6.5-8.0) g/dL Albumin 3.9 (3.5-5.0) g/dL Lipase 14 (8-78) U/L Urine Color Urine Appearance Urine pH (5.0-9.0) Ur Specific [place] (1.005-1.025) Urine Protein (Neg-Trace) mg/dL Urine Glucose (UA) (Negative) mg/dL Urine Ketones (Negative) mg/dL Urine Blood (Negative) Urine Nitrite (Negative) Ur Leukocyte Esterase (Negative) Urine RBC (0-2) /HPF Urine WBC (0-5) /HPF Ur Squamous Epith Cells (0-2) /HPF Urine Bacteria (None Seen) Hyaline Casts (0-2) /LPF Urine Opiates Screen (Not Detect) Urine Fentanyl Screen (Not Detect) Ur Barbiturates Screen (Not Detect) Ur Phencyclidine Scrn (Not Detect) Ur Amphetamines Screen (Not Detect) U Benzodiazepines Scrn (Not Detect) Urine Cocaine Screen (Not Detect) U Marijuana (THC) Screen (Not Detect) 08/14/22 08/14/22 08/14/22 Range/Units 17:52 18:41 18:41 WBC (4.8-10.8) X10*3/uL RBC (4.60-5.80) X10*6/uL Hgb (14.0-18.0) g/dl Hct (42.0-52.0) % MCV (80.0-98.0) fL MCH (27.0-33.0) pg MCHC (31.0-36.0) g/dl RDW (11.0-16.0) % Plt Count (160-400) X10*3/uL MPV (9.4-12.4) fL Immature Gran % (Auto) (0.0-0.4) % Neut % (Auto) (45-73) % Lymph % (Auto) (20-40) % Crowley % (Auto) (2-11) % Eos % (Auto) (0-4) % Baso % (Auto) (0-2) % Lymph # (Auto) (1.2-4.9) X10*3/uL Crowley # (Auto) (0.1-1.2) X10*3/uL Eos # (Auto) (0.0-0.4) X10*3/uL Baso # (Auto) (0.0-0.2) X10*3/uL Abs Immat Gran (auto) (0.00-0.03) X10*3/uL Absolute Neuts (auto) (2.0-8.3) x10*3/uL Absolute Nucleated RBC (0.0-0.012) X10*3/uL Nucleated RBC % (auto) (0.0-0.2) /100WBC O2 Saturation 82.0 % ABG pH at Pt Temp 7.42 (7.35-7.45) ABG pCO2 at Pt Temp 53 H (32-45) mmHg ABG pO2 at Pt Temp 53 L (83-108) mmHg ABG HCO3 34 H (22-26) mmol/L ABG Base Excess (Actual) 8.5 mmol/L Sodium (135-145) mmol/L Potassium (3.3-5.1) mmol/L Chloride (96-108) mmol/L Carbon Dioxide (22-29) mmol/L Anion Gap (12-20) BUN (9-16) mg/dL Creatinine (0.5-1.4) mg/dL Estim Creat Clear Calc Estimated GFR Random Glucose (60-115) mg/dL Calcium (8.4-10.2) mg/dL Magnesium (1.6-2.6) mg/dL Total Bilirubin (0.0-1.0) mg/dL AST (5-37) U/L ALT (0-40) U/L Alkaline Phosphatase (39-117) U/L Ammonia (13-55) umol/L Total Protein (6.5-8.0) g/dL Albumin (3.5-5.0) g/dL Lipase (8-78) U/L Urine Color Yellow Urine Appearance Cloudy Urine pH 6.5 (5.0-9.0) Ur Specific [place] 1.010 (1.005-1.025) Urine Protein Trace (Neg-Trace) mg/dL Urine Glucose (UA) Negative (Negative) mg/dL Urine Ketones Negative (Negative) mg/dL Urine Blood Small (1+) H (Negative) Urine Nitrite Positive H (Negative) Ur Leukocyte Esterase Large (3+) H (Negative) Urine RBC 0-2 (0-2) /HPF Urine WBC >50 H (0-5) /HPF Ur Squamous Epith Cells 0-2 (0-2) /HPF Urine Bacteria 4+ (None Seen) Hyaline Casts 0-2 (0-2) /LPF Urine Opiates Screen Not Detected (Not Detect) Urine Fentanyl Screen Not Detected (Not Detect) Ur Barbiturates Screen Not Detected (Not Detect) Ur Phencyclidine Scrn Not Detected (Not Detect) Ur Amphetamines Screen Not Detected (Not Detect) U Benzodiazepines Scrn Not Detected (Not Detect) Urine Cocaine Screen Not Detected (Not Detect) U Marijuana (THC) Screen Not Detected (Not Detect) <Hung Quintana - Last Filed: 08/14/22 19:32> Lab Results 08/14/22 08/14/22 08/14/22 Range/Units 17:44 17:44 17:44 WBC 7.0 (4.8-10.8) X10*3/uL RBC 4.65 (4.60-5.80) X10*6/uL Hgb 13.3 L D (14.0-18.0) g/dl Hct 41.1 L (42.0-52.0) % MCV 88.4 (80.0-98.0) fL MCH 28.6 (27.0-33.0) pg MCHC 32.4 (31.0-36.0) g/dl RDW 14.6 (11.0-16.0) % Plt Count 198 (160-400) X10*3/uL MPV 11.0 (9.4-12.4) fL Immature Gran % (Auto) 0.3 (0.0-0.4) % Neut % (Auto) 74.8 H (45-73) % Lymph % (Auto) 18.4 L (20-40) % Crowley % (Auto) 4.2 (2-11) % Eos % (Auto) 1.9 (0-4) % Baso % (Auto) 0.4 (0-2) % Lymph # (Auto) 1.3 (1.2-4.9) X10*3/uL [place] # (Auto) 0.3 (0.1-1.2) X10*3/uL Eos # (Auto) 0.1 (0.0-0.4) X10*3/uL Baso # (Auto) 0.0 (0.0-0.2) X10*3/uL Abs Immat Gran (auto) 0.02 (0.00-0.03) X10*3/uL Absolute Neuts (auto) 5.2 (2.0-8.3) x10*3/uL Absolute Nucleated RBC 0.000 (0.0-0.012) X10*3/uL Nucleated RBC % (auto) 0.0 (0.0-0.2) /100WBC O2 Saturation % ABG pH at Pt Temp (7.35-7.45) ABG pCO2 at Pt Temp (32-45) mmHg ABG pO2 at Pt Temp (83-108) mmHg ABG HCO3 (22-26) mmol/L ABG Base Excess (Actual) mmol/L Sodium 139 (135-145) mmol/L Potassium 4.3 (3.3-5.1) mmol/L Chloride 101 (96-108) mmol/L Carbon Dioxide 31 H (22-29) mmol/L Anion Gap 11 L (12-20) BUN 15 (9-16) mg/dL Creatinine 0.66 (0.5-1.4) mg/dL Estim Creat Clear Calc 124.2 Estimated GFR > 60 Random Glucose 104 (60-115) mg/dL Calcium 9.2 (8.4-10.2) mg/dL Magnesium 1.9 (1.6-2.6) mg/dL Total Bilirubin 0.5 (0.0-1.0) mg/dL AST 16 (5-37) U/L ALT 13 (0-40) U/L Alkaline Phosphatase 70 (39-117) U/L Ammonia 29 (13-55) umol/L Total Protein 7.0 (6.5-8.0) g/dL Albumin 3.9 (3.5-5.0) g/dL Lipase 14 (8-78) U/L Urine Color Urine Appearance Urine pH (5.0-9.0) Ur Specific [place] (1.005-1.025) Urine Protein (Neg-Trace) mg/dL Urine Glucose (UA) (Negative) mg/dL Urine Ketones (Negative) mg/dL Urine Blood (Negative) Urine Nitrite (Negative) Ur Leukocyte Esterase (Negative) Urine RBC (0-2) /HPF Urine WBC (0-5) /HPF Ur Squamous Epith Cells (0-2) /HPF Urine Bacteria (None Seen) Hyaline Casts (0-2) /LPF Urine Opiates Screen (Not Detect) Urine Fentanyl Screen (Not Detect) Ur Barbiturates Screen (Not Detect) Ur Phencyclidine Scrn (Not Detect) Ur Amphetamines Screen (Not Detect) U Benzodiazepines Scrn (Not Detect) Urine Cocaine Screen (Not Detect) U Marijuana (THC) Screen (Not Detect) 08/14/22 08/14/22 08/14/22 Range/Units 17:52 18:41 18:41 WBC (4.8-10.8) X10*3/uL RBC (4.60-5.80) X10*6/uL Hgb (14.0-18.0) g/dl Hct (42.0-52.0) % MCV (80.0-98.0) fL MCH (27.0-33.0) pg MCHC (31.0-36.0) g/dl RDW (11.0-16.0) % Plt Count (160-400) X10*3/uL MPV (9.4-12.4) fL Immature Gran % (Auto) (0.0-0.4) % Neut % (Auto) (45-73) % Lymph % (Auto) (20-40) % [place] % (Auto) (2-11) % Eos % (Auto) (0-4) % Baso % (Auto) (0-2) % Lymph # (Auto) (1.2-4.9) X10*3/uL [place] # (Auto) (0.1-1.2) X10*3/uL Eos # (Auto) (0.0-0.4) X10*3/uL Baso # (Auto) (0.0-0.2) X10*3/uL Abs Immat Gran (auto) (0.00-0.03) X10*3/uL Absolute Neuts (auto) (2.0-8.3) x10*3/uL Absolute Nucleated RBC (0.0-0.012) X10*3/uL Nucleated RBC % (auto) (0.0-0.2) /100WBC O2 Saturation 82.0 % ABG pH at Pt Temp 7.42 (7.35-7.45) ABG pCO2 at Pt Temp 53 H (32-45) mmHg ABG pO2 at Pt Temp 53 L (83-108) mmHg ABG HCO3 34 H (22-26) mmol/L ABG Base Excess (Actual) 8.5 mmol/L Sodium (135-145) mmol/L Potassium (3.3-5.1) mmol/L Chloride (96-108) mmol/L Carbon Dioxide (22-29) mmol/L Anion Gap (12-20) BUN (9-16) mg/dL Creatinine (0.5-1.4) mg/dL Estim Creat Clear Calc Estimated GFR Random Glucose (60-115) mg/dL Calcium (8.4-10.2) mg/dL Magnesium (1.6-2.6) mg/dL Total Bilirubin (0.0-1.0) mg/dL AST (5-37) U/L ALT (0-40) U/L Alkaline Phosphatase (39-117) U/L Ammonia (13-55) umol/L Total Protein (6.5-8.0) g/dL Albumin (3.5-5.0) g/dL Lipase (8-78) U/L Urine Color Yellow Urine Appearance Cloudy Urine pH 6.5 (5.0-9.0) Ur Specific [place] 1.010 (1.005-1.025) Urine Protein Trace (Neg-Trace) mg/dL Urine Glucose (UA) Negative (Negative) mg/dL Urine Ketones Negative (Negative) mg/dL Urine Blood Small (1+) H (Negative) Urine Nitrite Positive H (Negative) Ur Leukocyte Esterase Large (3+) H (Negative) Urine RBC 0-2 (0-2) /HPF Urine WBC >50 H (0-5) /HPF Ur Squamous Epith Cells 0-2 (0-2) /HPF Urine Bacteria 4+ (None Seen) Hyaline Casts 0-2 (0-2) /LPF Urine Opiates Screen Not Detected (Not Detect) Urine Fentanyl Screen Not Detected (Not Detect) Ur Barbiturates Screen Not Detected (Not Detect) Ur Phencyclidine Scrn Not Detected (Not Detect) Ur Amphetamines Screen Not Detected (Not Detect) U Benzodiazepines Scrn Not Detected (Not Detect) Urine Cocaine Screen Not Detected (Not Detect) U Marijuana (THC) Screen Not Detected (Not Detect) <JASMYNE Cronin - Last Filed: 08/20/22 09:31> Discharge Plan Discharge Clinical Impression: Mental status change resolved <Hung Quintana - Last Filed: 08/14/22 19:32> Patient Disposition: Home, Self-Care <Hung Quintana - Last Filed: 08/14/22 19:32> Additional Instructions: Your workup in the emergency department was significant for bacteria in your urine which is common with chronic catheters. If you develop a fever or abdominal discomfort, this should be treated as a urinary tract infection Your blood gas was significant for mild hypercapnia which is a slight increase in the CO2 she see in your blood. This is most commonly associated with COPD, sleep apnea. <Hung Quintana - Last Filed: 08/14/22 19:32> Prescriptions: No Action pantoprazole 40 mg tablet,delayed release (DR/EC) 40 mg PO BID Eliquis 5 mg tablet 5 mg PO Q12H balsam anita-castor oil [Venelex] Ointment topical (DME) CPAP Machine/Device Device See Rx Instructions .Route Rx Instructions: As directed Culturelle 15 billion cell capsule, sprinkle 1 cap PO DAILY multivitamin Tablet 1 tab PO DAILY ascorbic acid (vitamin C) 250 mg tablet 250 mg PO DAILY acetaminophen 325 mg tablet 325 mg PO PRN alum-mag hydroxide-simeth [Antacid-Antigas] 200-200-20 mg/5 mL suspension PO PRN midodrine 10 mg tablet 10 mg PO PRN polyethylene glycol 3350 [Purelax] 17 gram/dose powder PO PRN melatonin 3 mg tablet 10 mg PO DAILY magnesium hydroxide [Milk of Magnesia] 400 mg/5 mL suspension PO PRN gabapentin 300 mg capsule 300 mg PO TID bisacodyl 10 mg suppository 10 mg SC DAILY baclofen 5 mg tablet PO TID baclofen 2,000 mcg/mL solution 207 mcg intrathecal DAILY Rx Instructions: administer over 24 hrs chlorhexidine gluconate 0.12 % mouthwash 15 ml PO TID sennosides [Senokot] 8.6 mg tablet 17.2 mg PO DAILY nystatin 100,000 unit/gram powder topical methenamine hippurate 1 gram tablet 1 g PO BID silver sulfadiazine 1 % cream topical BID <Hung Quintana - Last Filed: 08/14/22 19:32> Interventions: ED Discharge Assessment Last Done: 08/14/22 21:18 <Hung Quintana - Last Filed: 08/14/22 19:32> Discharge Date/Time: 08/14/22 21:20 <Hung Quintana - Last Filed: 08/14/22 19:32>
--- NOTE | 2022-08-14 17:14 | ECG_ITS ---
Test Reason : LOW BLOOD PRESSURE Blood Pressure : / mmHG Vent. Rate : 053 BPM Atrial Rate : 053 BPM P-R Int : 152 ms QRS Dur : 088 ms QT Int : 432 ms P-R-T Axes : 048 035 039 degrees QTc Int : 405 ms Sinus bradycardia Otherwise normal ECG When compared with ECG of 13-NOV-2015 22:24, No significant change was found Referred By: Hung Quintana Electronically Signed By:MARY BETH GREGORY MD
[2022-08-14 17:53] LABS: Basophils Percent Auto 0.4 % (0-2); Eosinophils Absolute Auto 0.1 X10*3/uL (0.0-0.4); Eosinophils Percent Auto 1.9 % (0-4); Hematocrit 41.1 % (42.0-52.0); Hemoglobin 13.3 g/dl (14.0-18.0); Imm Gran Abs Auto 0.02 X10*3/uL (0.00-0.03); Imm Gran Pct Auto 0.3 % (0.0-0.4); Lymphocytes Absolute Auto 1.3 X10*3/uL (1.2-4.9); Lymphocytes Percent Auto 18.4 % (20-40); MANUAL DIFF FLAG NO; Mean Corpuscular HGB Conc 32.4 g/dl (31.0-36.0); Mean Corpuscular Hemoglobin 28.6 pg (27.0-33.0); Mean Corpuscular Volume 88.4 fL (80.0-98.0); Monocytes Absolute Auto 0.3 X10*3/uL (0.1-1.2); Monocytes Percent Auto 4.2 % (2-11); Neutrophils Absolute Auto 5.2 x10*3/uL (2.0-8.3); Neutrophils Percent Auto 74.8 % (45-73); Platelet Count 198 X10*3/uL (160-400); Red Blood Count 4.65 X10*6/uL (4.60-5.80); Red Cell Distribution Width 14.6 % (11.0-16.0)
[2022-08-14 18:07] LABS: Venous Blood Gas Refer to POC result
[2022-08-14 18:08] LABS: ABG Base Excess 8.5 mmol/L; ABG HCO3 34 mmol/L (22-26); ABG pCO2 53 mmHg (32-45); ABG pH 7.42 (7.35-7.45); ABG pO2 53 mmHg (83-108)
[2022-08-14 18:08] LABS: Ammonia 29 umol/L (13-55)
[2022-08-14 18:15] LABS: Alanine Aminotransferase 13 U/L (0-40); Albumin Level 3.9 g/dL (3.5-5.0); Alkaline Phosphatase 70 U/L (39-117); Anion Gap 11 (12-20); Aspartate Amino Transferase 16 U/L (5-37); Bilirubin Total 0.5 mg/dL (0.0-1.0); Blood Urea Nitrogen 15 mg/dL (9-16); Calcium 9.2 mg/dL (8.4-10.2); Carbon Dioxide 31 mmol/L (22-29); Chloride 101 mmol/L (96-108); Creatinine Clr Calc Pharmacy 124.2; Estimated Glomerular Filt Rate > 60; Glucose Random 104 mg/dL (60-115); Lipase 14 U/L (8-78); Magnesium 1.9 mg/dL (1.6-2.6); Potassium 4.3 mmol/L (3.3-5.1); Sodium 139 mmol/L (135-145)
[2022-08-14 18:58] LABS: Appearance Urine Cloudy; Color Urine Yellow; Glucose Urine UA Negative (Negative); Leukocyte Esterase Urine Large (3+) (Negative); Nitrite Urine Positive (Negative); PH 6.5 (5.0-9.0); UMIC TRIGGER UACC YES; Urine Blood Small (1+) (Negative); Urine Ketones Negative (Negative); Urine Protein Trace mg/dL (Neg-Trace)
[2022-08-14 19:05] LABS: Bacteria Urine 4+ (None Seen); Hyaline Casts Urine 0-2 /LPF (0-2); RBC Urine 0-2 /HPF (0-2); Squamous Epithelial Cell Urine 0-2 /HPF (0-2); UACC Culture Trigger YES; WBC Urine >50 /HPF (0-5)
[2022-08-14 19:09] LABS: Amphetamine Screen Urine Not Detected (Not Detect); Barbiturates, Urine Not Detected (Not Detect); Benzodiazepines Screen Urine Not Detected (Not Detect); Cannabinoid Screen Urine Not Detected (Not Detect); Cocaine Screen Urine Not Detected (Not Detect); Fentanyl, urine Not Detected (Not Detect); Opiate Screen Urine Not Detected (Not Detect); Phencyclidine Screen Urine Not Detected (Not Detect)
--- NOTE | 2022-08-14 19:20 | PC.NURSE ---
assumed care of patient at 1900 - ekg being done by PCT and pt resting comfortably , on rn cardiac rehab. will CTM
--- NOTE | 2022-08-14 21:17 | MHC.EDTECH ---
EMS arrived at 1911 for transport back home. RN aware
--- NOTE | 2022-08-14 21:18 | PC.NURSE ---
ambulance here now 21:15 to transport patient back home.
[2022-08-14 21:20] VITALS: PULSE 62; RESP 17
== END 2022-08-14 21:20 | disposition home or self-care (01) ==
PROVIDERS: Physician Assistant; Emergency Provider Internal Medicine; PCP Internal Medicine
DX: R41.82 Altered mental status, unspecified (principal); I48.0 Paroxysmal atrial fibrillation; Z79.01 Long term (current) use of anticoagulants; Z79.899 Other long term (current) drug therapy; Z79.4 Long term (current) use of insulin; Z87.891 Personal history of nicotine dependence
CPT/HCPCS: 36415; 71045; 80053; 80307; 81001; 82140; 82803; 83690; 83735; 85025; 87086; 87088; 87186; 93005; 99284

== ENCOUNTER 2022-08-20 13:35 | Emergency (ER) | payer OTHER, SELFPAY ==
[2022-08-20 13:46] VITALS: BP 120/48; BP 146/80; PULSE 55; PULSE 60; RESP 16; TEMP 36.8; O2SAT 98; BMI 34.0
--- NOTE | 2022-08-20 14:38 | ED_ITS ---
HPI - Male Genitourinary General Chief complaint: Urogenital-Male Stated complaint: UTI Time Seen by Provider: 08/20/22 13:50 Source: patient, family and EMS Mode of arrival: EMS Limitations: no limitations History of Present Illness HPI Narrative: 72-year-old male with past medical history significant for paroxysmal AFib on Eliquis, hypertension, GERD, coronary artery disease, obesity, paraplegia secondary to cervical spine injury 2 years ago, chronic UTIS on methenamine, chronic suprapubic antonio who presents to the ER with concern for abnormal urine culture. Patient was seen here on August 14 for change of mental status. He had a urine culture which was sent down to the lab and is now showing greater than 100,000 of Pseudomonas and Klebsiella ESBL +. The patient was called and because there was no oral option based on the sensitivity it was recommended that he come into the ER for further evaluation. Patient is feeling well and has no complaints. Per family he has had no fever, vomiting, pain. He has been eating and drinking well. He does have chronic urinary tract infections and is followed by a urologist. Related Data Home Medications Medication Instructions Recorded Confirmed CPAP (CPAP Machine/Device) 07/19/21 07/21/22 Lactobacillus rhamnosus GG 15 1 cap PO DAILY 07/19/21 07/21/22 billion cell sprinkle capsule (Culturelle) apixaban 5 mg tablet (Eliquis) 5 mg PO Q12H 07/19/21 07/21/22 ascorbic acid (vitamin C) 250 mg 250 mg PO DAILY 07/19/21 07/21/22 tablet radhasam anita-castor oil topical topical 07/19/21 07/21/22 ointment (Venelex topical ointment) multivitamin 1 tab PO DAILY 07/19/21 07/21/22 pantoprazole 40 mg tablet,delayed 40 mg PO BID 07/19/21 07/21/22 release acetaminophen 325 mg tablet 325 mg PO PRN 07/20/21 07/21/22 aluminum-mag hydroxide-simethicone ml PO PRN 07/20/21 07/21/22 200 mg-200 mg-20 mg/5 mL oral susp (Antacid-Antigas) midodrine 10 mg tablet 10 mg PO PRN 07/20/21 07/21/22 baclofen 2,000 mcg/mL intrathecal 207 mcg intrathecal DAILY 10/15/21 07/21/22 solution baclofen 5 mg tablet mg PO TID 10/15/21 07/21/22 bisacodyl 10 mg rectal suppository 10 mg ID DAILY 10/15/21 07/21/22 gabapentin 300 mg capsule 300 mg PO TID 10/15/21 07/21/22 magnesium hydroxide 400 mg/5 mL PO PRN 10/15/21 07/21/22 oral suspension (Milk of Magnesia) melatonin 3 mg tablet 10 mg PO DAILY 10/15/21 07/21/22 nystatin 100,000 unit/gram topical topical 10/15/21 07/21/22 powder polyethylene glycol 3350 17 g PO PRN 10/15/21 07/21/22 gram/dose oral powder (Purelax) chlorhexidine gluconate 0.12 % 15 ml PO TID 01/27/22 07/21/22 mouthwash methenamine hippurate 1 gram tablet 1 g PO BID 01/27/22 07/21/22 sennosides 8.6 mg tablet (Senokot) 17.2 mg PO DAILY 01/27/22 07/21/22 silver sulfadiazine 1 % topical appl topical BID 01/27/22 07/21/22 cream Allergies Allergy/AdvReac Type Severity Reaction Status Date / Time No Known Allergies Allergy Verified 01/27/22 14:37 [No Known Allergies*] Review of Systems Review of Systems: Yes all other systems are reviewed and are negative Constitutional: Constitutional: Reports no additional constitutional com plaints, Denies body ache(s), Denies chills, Denies fever(s), Denies headache(s) and Denies weakness Eyes: Eyes: Reports no additional eye complaints and Denies change in vision ENT: Reports system reviewed and no additional complaints, except as documented, Denies dizziness, Denies headache(s), Denies nasal congestion, Denies nasal discharge and Denies neck pain Cardiovascular: Cardiovascular: Reports no additional cardiovascular complaints, Denies chest pain, Denies leg edema and Denies dyspnea Respiratory: Respiratory: Reports no additional respiratory complaints, Denies cough and Denies dyspnea Gastrointestinal: Gastrointestinal: Reports no additional gastrointestinal complaints, Denies abdominal pain, Denies diarrhea, Denies nausea and Denies vomiting Genitourinary: Genitourinary: Denies urinary incontinence Musculoskeletal: Musculoskeletal: Reports no additional musculoskeletal complaints, Denies back pain, Denies arthralgias, Denies joint swelling, Denies neck pain, Denies numbness and Denies tingling Integumentary/Breasts: Skin/Breast: Reports system reviewed and no additional complaints, except as docu and Denies rash Neurologic: Reports system reviewed and no additional complaints, except as documented, Denies dizziness, Denies headache(s), Denies numbness, Denies tingling and Denies weakness PMFSH Past Medical History Attestation statement: The following information was validated with the patient. Source: old records reviewed and nursing notes reviewed Medical History CAD (coronary artery disease) HTN (hypertension) LATANYA on CPAP Paraplegia Paroxysmal atrial fibrillation Restrictive lung mechanics due to neuromuscular disease Surgical History History of carpal tunnel release History of hip surgery Hx of colonoscopy Hx of rotator cuff surgery Family History Family History Father Diabetes HTN (hypertension) CVD (cardiovascular disease) Mother CVD (cardiovascular disease) Diabetes HTN (hypertension) Brother CVD (cardiovascular disease) Diabetes HTN (hypertension) Social History Social History Alcohol intake: current Alcohol intake frequency: former alcohol drinker Patient Tobacco Use Status: Former Tobacco user Tobacco use type: Cigarette Years Smoked: 20 years Advance Directives: Yes Advance Directives Information Provided: No Advance Directives on File: No Physical Exam Vital Signs: Vital Signs: Last Vital Signs Temp 98.2 F 08/20/22 13:46 Pulse 55 08/20/22 13:46 Resp 16 08/20/22 13:46 BP 120/48 L 08/20/22 13:46 Pulse Ox 98 08/20/22 13:46 O2 Del Method Room Air 08/20/22 13:46 BMI result Body Mass Index 34.0 Const: General: cooperative, healthy appearing, comfortable and no acute distress Orientation/consciousness: patient oriented x3 Limitations: no limitations HEENT: Head: Yes normal to inspection Ears: hearing grossly normal bilaterally General nose exam: Normal external nose present Face and sinus: Yes normal facial exam Mouth: Normal oral and palatal mucosa present Throat: Yes posterior oropharynx normal Eyes: General: appearance normal, both eyes and all related structures Pupils: Equal, round and reactive pupils present Neck: Neck: Yes normal visual inspection Chest: Chest palpation & inspection: normal inspection of the chest Resp: Effort & Inspection: normal respiratory effort Auscultation: clear to auscultation bilaterally Cardio: Rate: regular rate Rhythm: regular rhythm Peripheral pulses: Peripheral pulses 2+ throughout GI: Other: +suprapubic catheter Inspection: Yes normal to inspection Palpation (GI): Soft to palpation and nontender Auscultation: normal bowel sounds Back/Spine/Pelvis: Thoracic/Lumbar Spine: thoracic and lumbar spine normal to inspection Skin: General skin exam: no rashes or lesions noted Neuro: Other: +contracted extremities General: patient oriented x3 Cranial nerves: Yes Equal, round and reactive pupils present Course Course Course Narrative: Patient is alert and oriented at his baseline. He has no systemic signs or symptoms concerning for infection. He has a urine culture that is likely from chronic colonization. I do not feel that he needs to be admitted to the hospital or receive IV antibiotics. I did discuss this with the family. They should monitor the patient and if he develops any systemic symptoms such as fever or vomiting they should bring him back to the emergency room. They were comfortable with this plan of care. Medical Decision Making Medical Decision Making [facility] Narrative: 72-year-old male who is a paraplegic with a chronic suprapubic catheter and urinary track infection presents after being informed that his urine culture was positive which was taken on August 14. Urine culture shows greater than 100,000 of Pseudomonas and Klebsiella with multiple resistances. Patient is asymptomatic and feels well with no complaint. I will check labs Differential Diagnosis Differential Diagnoses: The differential diagnosis associated with the presentation includes Likely chronic colonization. 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 I spoke to Infectious Disease Dr Peñaloza and we reviewed the patient and his urine culture. She feels that this is also chronic colonization and does not need to be treated with any additional antibiotics or admission to the hospital. Lab Data [facility] Lab Attestation statement: I reviewed the patient's lab results. 08/20/22 14:36 08/20/22 14:36 Labs: Lab Results 08/20/22 08/20/22 Range/Units 14:36 14:36 WBC 8.4 (4.8-10.8) X10*3/uL RBC 4.29 L (4.60-5.80) X10*6/uL Hgb 11.9 L (14.0-18.0) g/dl Hct 37.1 L (42.0-52.0) % MCV 86.5 (80.0-98.0) fL MCH 27.7 (27.0-33.0) pg MCHC 32.1 (31.0-36.0) g/dl RDW 14.9 (11.0-16.0) % Plt Count 176 (160-400) X10*3/uL MPV 10.8 (9.4-12.4) fL Immature Gran % (Auto) 0.1 (0.0-0.4) % Neut % (Auto) 77.6 H (45-73) % Lymph % (Auto) 15.0 L (20-40) % [place] % (Auto) 5.1 (2-11) % Eos % (Auto) 1.8 (0-4) % Baso % (Auto) 0.4 (0-2) % Lymph # (Auto) 1.3 (1.2-4.9) X10*3/uL [place] # (Auto) 0.4 (0.1-1.2) X10*3/uL Eos # (Auto) 0.2 (0.0-0.4) X10*3/uL Baso # (Auto) 0.0 (0.0-0.2) X10*3/uL Abs Immat Gran (auto) 0.01 (0.00-0.03) X10*3/uL Absolute Neuts (auto) 6.5 (2.0-8.3) x10*3/uL Absolute Nucleated RBC 0.000 (0.0-0.012) X10*3/uL Nucleated RBC % (auto) 0.0 (0.0-0.2) /100WBC Sodium 142 (135-145) mmol/L Potassium 4.1 (3.3-5.1) mmol/L Chloride 103 (96-108) mmol/L Carbon Dioxide 30 H (22-29) mmol/L Anion Gap 13 (12-20) BUN 16 (9-16) mg/dL Creatinine 0.65 (0.5-1.4) mg/dL Estim Creat Clear Calc 118.2 Estimated GFR > 60 Random Glucose 103 (60-115) mg/dL Calcium 9.0 (8.4-10.2) mg/dL Total Bilirubin 0.5 (0.0-1.0) mg/dL AST 12 (5-37) U/L ALT 8 (0-40) U/L Alkaline Phosphatase 65 (39-117) U/L Total Protein 6.6 (6.5-8.0) g/dL Albumin 3.8 (3.5-5.0) g/dL Discharge Plan Discharge Clinical Impression: Abnormal urine Patient Disposition: Home, Self-Care Instructions: Antonio Catheter Placement and Care (ED) Additional Instructions: Your urine culture shows bacteria which is likely chronic. You do not have any symptoms of a urinary tract infection. Please return if you develop pain, fever, vomiting or any other change. Please follow-up with your urologist ou tpatient. Continue your home medications. Prescriptions: No Action pantoprazole 40 mg tablet,delayed release (DR/EC) 40 mg PO BID Eliquis 5 mg tablet 5 mg PO Q12H balsam anita-castor oil [Venelex] Ointment topical (DME) CPAP Machine/Device Device See Rx Instructions .Route Rx Instructions: As directed Culturelle 15 billion cell capsule, sprinkle 1 cap PO DAILY multivitamin Tablet 1 tab PO DAILY ascorbic acid (vitamin C) 250 mg tablet 250 mg PO DAILY acetaminophen 325 mg tablet 325 mg PO PRN alum-mag hydroxide-simeth [Antacid-Antigas] 200-200-20 mg/5 mL suspension PO PRN midodrine 10 mg tablet 10 mg PO PRN polyethylene glycol 3350 [Purelax] 17 gram/dose powder PO PRN melatonin 3 mg tablet 10 mg PO DAILY magnesium hydroxide [Milk of Magnesia] 400 mg/5 mL suspension PO PRN gabapentin 300 mg capsule 300 mg PO TID bisacodyl 10 mg suppository 10 mg ID DAILY baclofen 5 mg tablet PO TID baclofen 2,000 mcg/mL solution 207 mcg intrathecal DAILY Rx Instructions: administer over 24 hrs chlorhexidine gluconate 0.12 % mouthwash 15 ml PO TID sennosides [Senokot] 8.6 mg tablet 17.2 mg PO DAILY nystatin 100,000 unit/gram powder topical methenamine hippurate 1 gram tablet 1 g PO BID silver sulfadiazine 1 % cream topical BID Referrals: Aba Linares MD [Primary Care Provider] - 1 week
[2022-08-20 14:40] LABS: MANUAL DIFF FLAG NO
[2022-08-20 14:46] LABS: Basophils Percent Auto 0.4 % (0-2); Eosinophils Absolute Auto 0.2 X10*3/uL (0.0-0.4); Eosinophils Percent Auto 1.8 % (0-4); Hematocrit 37.1 % (42.0-52.0); Hemoglobin 11.9 g/dl (14.0-18.0); Imm Gran Abs Auto 0.01 X10*3/uL (0.00-0.03); Imm Gran Pct Auto 0.1 % (0.0-0.4); Lymphocytes Absolute Auto 1.3 X10*3/uL (1.2-4.9); Mean Corpuscular HGB Conc 32.1 g/dl (31.0-36.0); Mean Corpuscular Hemoglobin 27.7 pg (27.0-33.0); Mean Corpuscular Volume 86.5 fL (80.0-98.0); Mean Platelet Volume 10.8 fL (9.4-12.4); Monocytes Absolute Auto 0.4 X10*3/uL (0.1-1.2); Monocytes Percent Auto 5.1 % (2-11); Neutrophils Absolute Auto 6.5 x10*3/uL (2.0-8.3); Neutrophils Percent Auto 77.6 % (45-73); Platelet Count 176 X10*3/uL (160-400); Red Blood Count 4.29 X10*6/uL (4.60-5.80); Red Cell Distribution Width 14.9 % (11.0-16.0); White Blood Count 8.4 X10*3/uL (4.8-10.8)
[2022-08-20 15:00] LABS: Alanine Aminotransferase 8 U/L (0-40); Albumin Level 3.8 g/dL (3.5-5.0); Alkaline Phosphatase 65 U/L (39-117); Anion Gap 13 (12-20); Aspartate Amino Transferase 12 U/L (5-37); Bilirubin Total 0.5 mg/dL (0.0-1.0); Blood Urea Nitrogen 16 mg/dL (9-16); Carbon Dioxide 30 mmol/L (22-29); Chloride 103 mmol/L (96-108); Creatinine Clr Calc Pharmacy 118.2; Estimated Glomerular Filt Rate > 60; Glucose Random 103 mg/dL (60-115); Potassium 4.1 mmol/L (3.3-5.1); Sodium 142 mmol/L (135-145); Total Protein 6.6 g/dL (6.5-8.0)
--- NOTE | 2022-08-20 15:51 | MHC.EDTECH ---
pt will be going home via ambulance [facility]. [facility] at [facility]37. [facility] stated et[facility] quarter after 4
[2022-08-20 15:55] VITALS: BP 119/56; PULSE 52; RESP 14; TEMP 36.9; O2SAT 97
--- NOTE | 2022-08-20 16:00 | PC.NURSE ---
Patient alert and oriented x 3. Paraplegic patient from a SNF. Patient has a superpubic catheter chronically. 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 labs drawn. Will be sent back to facility.
== END 2022-08-20 16:58 | disposition home or self-care (01) ==
PROVIDERS: Physician Assistant; Emergency Provider Emergency Medicine; PCP Internal Medicine
DX: R82.90 Unspecified abnormal findings in urine (principal); I10 Essential (primary) hypertension; I48.0 Paroxysmal atrial fibrillation; G82.20 Paraplegia, unspecified; Z87.891 Personal history of nicotine dependence; Z96.0 Presence of urogenital implants; Z79.01 Long term (current) use of anticoagulants; Z79.899 Other long term (current) drug therapy
CPT/HCPCS: 36415; 80053; 85025; 99283

== ENCOUNTER → 2022-09-09 15:07 | Outpatient (REF) | payer OTHER, SELFPAY ==
--- NOTE | 2022-09-09 | HM_ITS ---
Conclusion: 1. Patient was monitored for total period of 3 days 2. Baseline was normal sinus with average heart of 57 beats per minute 3. Frequent sinus bradycardia with 68% of time heart rate below 60 beats per minute but no significant pauses greater than 2.5 seconds noted 4. Frequent PACs with total burden of 2.5% with frequent episodes of SVT, longest lasting 10 minutes and 49 seconds and the fastest at 182 beats per minute 5. Occasional PVCs noted with total burden of 0.3% 6. Patient reported 1 event that correlated with isolated PVCs MTDD
== END ==
LOC: HO.CARD 15:07
PROVIDERS: PCP Internal Medicine; Visit Provider Internal Medicine
DX: R55 Syncope and collapse (principal)
CPT/HCPCS: 93242

== ENCOUNTER → 2022-09-13 14:48 | Outpatient (BNVA) | payer OTHER, SELFPAY | PROVIDERS: PCP Internal Medicine; Visit Provider Hospitalist | DX: G47.33 Obstructive sleep apnea (adult) (pediatric) (principal); G82.20 Paraplegia, unspecified; J98.4 Other disorders of lung; G70.9 Myoneural disorder, unspecified; J96.12 Chronic respiratory failure with hypercapnia; Z99.89 Dependence on other enabling machines and devices | CPT/HCPCS: 99212 ==

== ENCOUNTER 2023-06-07 21:08 | Emergency (ER) | payer OTHER, SELFPAY ==
[2023-06-07 21:16] VITALS: BP 126/42; PULSE 59; RESP 16; TEMP 37.2; O2SAT 96; BMI 36.1
--- NOTE | 2023-06-07 21:23 | ED.GENADULT ---
HPI - General Adult General Chief complaint: General Medical Stated complaint: DOES NOT HAVE [employer] FOR THE NIGHT Time Seen by Provider: 06/07/23 21:22 Source: patient Mode of arrival: EMS Limitations: no limitations History of Present Illness HPI narrative: Patient paraplegic from spinal cord injury at issues with [employer] at home who left tonight and patient does not have any care for tonight will be coming in the morning can not take care of the patient patient has no active medical issues patient tested COVID positive 3 days ago asymptomatic otherwise Related Data Home Medications Medication Instructions Recorded Confirmed CPAP (CPAP Machine/Device) 07/19/21 07/21/22 Lactobacillus rhamnosus GG 15 1 cap PO DAILY 07/19/21 07/21/22 billion cell sprinkle capsule (Culturelle) apixaban 5 mg tablet (Eliquis) 5 mg PO Q12H 07/19/21 07/21/22 ascorbic acid (vitamin C) 250 mg 250 mg PO DAILY 07/19/21 07/21/22 tablet balsam anita-castor oil topical topical 07/19/21 07/21/22 ointment (Venelex topical ointment) multivitamin 1 tab PO DAILY 07/19/21 07/21/22 pantoprazole 40 mg tablet,delayed 40 mg PO BID 07/19/21 07/21/22 release acetaminophen 325 mg tablet 325 mg PO PRN 07/20/21 07/21/22 aluminum-mag hydroxide-simethicone ml PO PRN 07/20/21 07/21/22 200 mg-200 mg-20 mg/5 mL oral susp (Antacid-Antigas) midodrine 10 mg tablet 10 mg PO PRN 07/20/21 07/21/22 baclofen 2,000 mcg/mL intrathecal 207 mcg intrathecal DAILY 10/15/21 07/21/22 solution baclofen 5 mg tablet mg PO TID 10/15/21 07/21/22 bisacodyl 10 mg rectal suppository 10 mg CA DAILY 10/15/21 07/21/22 gabapentin 300 mg capsule 300 mg PO TID 10/15/21 07/21/22 magnesium hydroxide 400 mg/5 mL PO PRN 10/15/21 07/21/22 oral suspension (Milk of Magnesia) melatonin 3 mg tablet 10 mg PO DAILY 06/10/22 03/16/23 nystatin 100,000 unit/gram topical topical 10/15/21 07/21/22 powder polyethylene glycol 3350 17 g PO PRN 10/15/21 07/21/22 gram/dose oral powder (Purelax) chlorhexidine gluconate 0.12 % 15 ml PO TID 01/27/22 07/21/22 mouthwash methenamine hippurate 1 gram tablet 1 g PO BID 01/27/22 07/21/22 sennosides 8.6 mg tablet (Senokot) 17.2 mg PO DAILY 01/27/22 07/21/22 silver sulfadiazine 1 % topical appl topical BID 01/27/22 07/21/22 cream Allergies Allergy/AdvReac Type Severity Reaction Status Date / Time No Known Allergies Allergy Verified 06/07/23 21:16 [No Known Allergies*] Review of Systems Review of Systems: Yes all other systems are reviewed and are negative PMFSH Past Medical History Medical History Chronic hypercapnic respiratory failure Restrictive lung mechanics due to neuromuscular disease Paraplegia LATANYA on CPAP CAD (coronary artery disease) Paroxysmal atrial fibrillation HTN (hypertension) Surgical History History of carpal tunnel release Hx of colonoscopy Hx of rotator cuff surgery History of hip surgery Family History Family History Father Diabetes HTN (hypertension) CVD (cardiovascular disease) Mother CVD (cardiovascular disease) Diabetes HTN (hypertension) Brother CVD (cardiovascular disease) Diabetes HTN (hypertension) Social History Social History Alcohol intake: current Alcohol intake frequency: former alcohol drinker Patient Tobacco Use Status: Former Tobacco user Tobacco use type: Cigarette Years Smoked: 20 years Advance Directives: No Advance Directives Information Provided: No Physical Exam ED Vital Signs: Vital Signs - 24 hr 06/07/23 21:16 06/07/23 21:25 06/07/23 23:57 Temperature 98.9 F 98.9 F 97.9 F Pulse Rate 59 74 57 Respiratory Rate 16 14 14 Blood Pressure 126/42 L 126/42 L 113/50 L Pulse Oximetry 96 97 98 Oxygen Delivery Method Room Air Room Air Room Air 06/08/23 03:01 Temperature 97.8 F Pulse Rate 56 Respiratory Rate 18 Blood Pressure 114/46 L Pulse Oximetry 97 Oxygen Delivery Method Room Air BMI result Body Mass Index 36.1 Appearance: Alert. Oriented X3. No acute distress. Eyes: PERRLA, ENT: Pharynx normal. Oral Mucosa moist Neck: Normal inspection. Neck supple. CVS: Normal heart rate and rhythm. Pulses normal. Respiratory: No respiratory distress. Equal air entry bilateral, Abdomen: Soft and nontender. Bowel sounds are present, Skin: Skin warm and dry. Normal skin color. Normal skin turgor. Extremities: No lower extremity edema. No calf tenderness Neuro: Oriented X 3. Paraplegic with limited upper extremity movements Medical Decision Making Medical Decision Making MDM Narrative: Patient with multiple issues unable to have [employer] till tomorrow will get case management involved medically cleared Discharge Plan Discharge Clinical Impression: Paraplegia Patient Disposition: Still a Patient Prescriptions: No Action pantoprazole 40 mg tablet,delayed release (DR/EC) 40 mg PO BID Eliquis 5 mg tablet 5 mg PO Q12H balsam anita-castor oil [Venelex] Ointment topical (DME) CPAP Machine/Device Device See Rx Instructions .Route Rx Instructions: As directed Culturelle 15 billion cell capsule, sprinkle 1 cap PO DAILY multivitamin Tablet 1 tab PO DAILY ascorbic acid (vitamin C) 250 mg tablet 250 mg PO DAILY acetaminophen 325 mg tablet 325 mg PO PRN alum-mag hydroxide-simeth [Antacid-Antigas] 200-200-20 mg/5 mL suspension PO PRN midodrine 10 mg tablet 10 mg PO PRN polyethylene glycol 3350 [Purelax] 17 gram/dose powder PO PRN melatonin 3 mg tablet 10 mg PO DAILY magnesium hydroxide [Milk of Magnesia] 400 mg/5 mL suspension PO PRN gabapentin 300 mg capsule 300 mg PO TID bisacodyl 10 mg suppository 10 mg CA DAILY baclofen 5 mg tablet PO TID baclofen 2,000 mcg/mL solution 207 mcg intrathecal DAILY Rx Instructions: administer over 24 hrs chlorhexidine gluconate 0.12 % mouthwash 15 ml PO TID sennosides [Senokot] 8.6 mg tablet 17.2 mg PO DAILY nystatin 100,000 unit/gram powder topical methenamine hippurate 1 gram tablet 1 g PO BID silver sulfadiazine 1 % cream topical BID
[2023-06-07 21:25] VITALS: BP 126/42; PULSE 74; RESP 14; TEMP 37.2; O2SAT 97
--- OUTSIDE RECORDS SUMMARY | 2023-06-07 22:02 | XMS_ITS | Continuity of Care Document ---
Author Name Unknown Organization [facility] Address [address] [place] [id number]- Care Team Providers Care Valve Pipe Irrigator Name Role Phone Aba Linares DO Primary Care Physician Encounter [facility] Date(s): 05/26/22 - 06/02/22 [facility] [address] [place] [id number]- Attending Physician: Radha CAMACHO, rEan Referring Physician: Aba Linares DO Allergies, Adverse Reactions, Alerts No Known Allergies Medications albuterol 90 mcg/inh inhalation aerosol 2 puffs, Inhalation, 4 times a day, Maintenance, 09/23/20 12:37:00 EDT Start Date: 09/23/20 Status: Ordered atorvastatin 10 mg oral tablet 1 tablet = 10 mg, By Mouth, Daily at bedtime, 0 Refills, Maintenance, 09/09/20 7:49:00 EDT, Tablet Start Date: 09/09/20 Status: Ordered Baclofen = 7.5 mg, By Mouth, 3 times a day, 0 Refills, Maintenance, 09/17/21 15:00:00 EDT, Partial fill uponpatient request if the prescription is for a schedule II opioid drug. Start Date: 09/17/21 Status: Ordered baclofen 10 mg oral tablet 10 mg, 1, tablet, By Mouth, 3 times a day, # 90 tablet, Refills 0, Tot. Refills 0, Maintenance, 05/26/22 15:47:00 EST, Route to Pharmacy Electronically, [facility]/pharmacy #[id number], Partial fill upon patient request if the prescription is for a schedule II opi... Start Date: 05/26/22 Status: Ordered baclofen 10 mg oral tablet 10 mg, 1, tablet, By Mouth, 3 times a day, # 270 tablet, Refills 1, Tot. Refills 1, Maintenance, 06/10/22 15:49:00 EST, Route to Pharmacy Electronically, [facility], 180.3, cm, 05/26/22 15:08:00 EST, Height, 93, kg, 09/30/21 14:5... Start Date: 06/10/22 Status: Ordered Bedside Table with Wheels Bedside Table with Wheels, See Instructions, # 1 kit, Refills 0, Tot. Refills 0, Maintenance, Dx: tetraplegia, 03/24/22 14:00:00 EST, Supply Start Date: 03/24/22 Status: Ordered Bilateral Class I (20-30mmHg) Knee-high Stockings Bilateral Class I (20-30mmHg) Knee-high Stockings, See Instructions, # 2 kit, Refills 3, Tot. Refills 3, Maintenance, Dx: Dependent edema Use daily. On in a.m. off at bedtime, 09/30/21 15:32:00 EDT, Supply Start Date: 09/30/21 Status: Ordered bisacodyl 10 mg rectal suppository 1 supp = 10 mg, Rectally, Every 48 hours, 0 Refills, Maintenance, 09/09/20 7:49:00 EDT, Suppository Start Date: 09/09/20 Status: Ordered docusate sodium 100 mg oral capsule 1 capsule = 100 mg, By Mouth, 2 times a day, PRN for constipation, # 60 capsule, 11 Refills, Maintenance, 02/10/22 14:22:00 EDT, Capsule, [facility]/pharmacy #[id number], \, 180.3, cm, 01/27/22 15:54:00 EDT, Height, 93, kg, 09/30/21 14:59:00 EDT, Dry Weight Start Date: 02/10/22 Status: Ordered Eliquis Starter Pack 5 mg oral tablet 1 tablet = 5 mg, By Mouth, 2 times a day, 0 Refills, Maintenance, 07/27/21 10:08:00 EDT, Partial fill upon patient request if the prescription is for a schedule II opioid drug. Start Date: 07/27/21 Status: Ordered gabapentin 300 mg oral capsule 300 mg, 1, capsule, By Mouth, 2 times a day, 9 am and 3 pm, Maintenance, 09/23/20 12:22:00 EDT Start Date: 09/23/20 Status: Ordered gabapentin 400 mg oral capsule 400 mg, 1, capsule, By Mouth, Daily at bedtime, Maintenance, 09/23/20 12:24:00 EDT Start Date: 09/23/20 Status: Ordered lidocaine 5% topical film 1 patch, Topically, Daily in AM, apply to right shoulder; remove at bedtime after 12 hours, Maintenance, 09/23/20 12:25:00 EDT, Film Start Date: 09/23/20 Status: Ordered Maalox Plus Liquid 30 mL, By Mouth, Every 4 hours, PRN Dyspepsia, Maintenance, 09/23/20 12:35:00 EDT Start Date: 09/23/20 Status: Ordered Magic Bullet 10 mg rectal suppository 1 supp = 10 mg, Rectally, Daily, Daily afer dinner., # 30 supp, 11 Refills, Maintenance, 08/20/21 15:56:00 EDT, Suppository, [facility]/pharmacy #[id number], 180.3, cm, 08/12/21 7:56:00 EDT, Height, 100.5, kg, 09/23/20 12:08:00 EDT, Dry Weight Start Date: 08/20/21 Status: Ordered melatonin 3 mg oral tablet 1 tablet = 3 mg, By Mouth, Daily at bedtime, Maintenance, 09/23/20 12:26:00 EDT Start Date: 09/23/20 Status: Ordered Metamucil 400 mg oral capsule 5 capsule = 2,000 mg, By Mouth, 4 times a day, PRN as needed for constipation, with at least 8 ounces of water, # 160 capsule, 0 Refills, Maintenance, 08/12/21 9:15:00 EDT, Capsule, Partial fill uponpatient request if the prescription is for a schedu... Start Date: 08/12/21 Status: Ordered metoprolol 50 mg oral tablet, extended release 50 mg, 1, tablet, By Mouth, Daily, Refills 0, Maintenance, 09/09/20 7:49:00 EDT Start Date: 09/09/20 Status: Ordered midodrine 5 mg oral tablet 5 mg, 1, tablet, By Mouth, 2 times a day, 9 am and 3 pm, Refills 0, Maintenance, 09/09/20 7:49:00 EDT Start Date: 09/09/20 Status: Ordered MiraLax = 17 Gm, By Mouth, Daily, 0 Refills, Maintenance, 08/12/21 9:15:00 EDT, Partial fill upon patient request if the prescription is for a schedule II opioid drug. Start Date: 08/12/21 Status: Ordered MiraLax oral powder for reconstitution = 17 Gm, By Mouth, Daily, PRN Constipation, dissolve in water before taking, # 530 pack/packet, 5 Refills, Maintenance, 09/17/21 16:24:00 EDT, REC Powder, [facility]/pharmacy #[id number], Partial fill upon patient request if the prescription is for a schedule II o... Start Date: 09/17/21 Status: Ordered Multivitamin With Minerals 1 tablet, By Mouth, Daily, Maintenance, 09/23/20 12:29:00 EDT Start Date: 09/23/20 Status: Ordered Mylanta Gas = 80 mg, 3 times a day after meals and bedtime, 0 Refills, Maintenance, 08/12/21 9:15:00 EDT, Partial fill upon patient request if the prescription is for a schedule II opioid drug. Start Date: 08/12/21 Status: Ordered pantoprazole 40 mg oral delayed release tablet = 40 mg, By Mouth, Daily before breakfast, 0 Refills, Maintenance, 09/09/20 7:49:00 EDT, EC Tablet Start Date: 09/09/20 Status: Ordered Please provide 24/7 DEPOSITION REPORTER care and weekly VNA visits for medication management. Please provide 24/7 DEPOSITION REPORTER care and weekly VNA visits for medication management., See Instructions, # 1 each, Refills 0, Tot. Refills 0, Maintenance, Dx: Tetraplegia, 12/06/21 10:20:00 EDT, Supply Start Date: 12/06/21 Status: Ordered Right UE combination Elbow /hand orthosis with progressive elbow extension lock Right UE combination Elbow /hand orthosis with progressive elbow extension lock, See Instructions, # 1 kit, Refills 0, Tot. Refills 0, Maintenance, Dx: C5 Tetraplegia., 08/12/21 8:42:00 EDT, Supply Start Date: 08/12/21 Status: Ordered rivaroxaban 20 mg oral tablet = 20 mg, By Mouth, Daily at supper, 0 Refills, Maintenance, 09/09/20 7:49:00 EDT, Tablet Start Date: 09/09/20 Status: Ordered Tylenol 325 mg oral tablet 650 mg, 2, tablet, By Mouth, Every 6 hours, PRN, Refills 0, Maintenance, as needed for mild pain orfever, 09/09/20 7:49:00 EDT Start Date: 09/09/20 Status: Ordered Venelex 788 mg-87 mg/g topical ointment See Instructions, Topically 3 times a day to affected area as needed, # 60 Gm, 6 Refills, Maintenance, 08/21/21 7:56:00 EDT, Ointment, [facility]acy #[id number], Partial fill upon patient request if the prescription is for a schedule II opioid drug., Topical... Start Date: 08/21/21 Status: Ordered Problem List Condition Confirmation Course Effective Dates Status Health St atus Informant Lower extremity edema Confirmed Active Vital Signs Most recent to oldest [Reference Range]: 1 Height 180.3 cm (05/26/22 3:08 PM) Mode of Delivery (Oxygen) Room air (05/26/22 3:08 PM) Patient Care team information Care Team Personnel Name: Danny Whittaker RN Position: [facility] ED RN W/OE and Tasks Member Role: Primary Care Nurse Name: Aba Linares DO Position: Reference Physician Member Role: PCP Address: Address: [address] [place] [address] [place] [address]- Name: Tesha Kirkpatrick RN Position: S RN Member Role: Primary Care Nurse Name: Vera Patricia RN Position: S RN Member Role: Primary Care Nurse Name: Pau Mills RN Position: [facility] SURINDER Nurse Member Role: Primary Care Nurse Name: Genevieve Orozco RN Position: [facility] RN Member Role: Primary Care Nurse Care Team Related Persons Name: CIRO TORREZ Address: [address] [address]
--- OUTSIDE RECORDS SUMMARY | 2023-06-07 22:02 | XMS_ITS | Continuity of Care Document ---
Author Name Unknown Organization [facility] Physical Me dicine and Rehabilitation Address Unknown Care Team Providers Care Reading Assistant Name Role Phone Aba Linares DO Marlen Primary Care Physician Encounter [facility] [place] Date(s): 10/22/21 - 11/21/21 [facility] Medicine [facility] Rehabilitation Allergies, Adverse Reactions, Alerts No Known Allergies [...] Status: Ordered baclofen 10 mg oral tablet 5 mg, 0.5, tablet, By Mouth, 3 times a day, # 21 tablet, Refills 0, Tot. Refills 0, Maintenance, 09/17/21 16:22:00 EDT, Route to Pharmacy Electronically, [facility]/pharmacy #[id number], Partial fill upon patientrequest if the prescription is for a schedule II op... Start Date: 09/17/21 Status: Ordered Bilateral Class I (20-30mmHg) Knee-high [...] EDT, Suppository Start Date: 09/09/20 Status: Ordered Eliquis Starter Pack 5 mg [...] 11 Refills, Maintenance, 08/20/21 15:56:00 EDT, Suppository, [facility]/pharmacy #[id number], 180.3, cm, 08/12/21 7:56:00 EDT, [...] Refills, Maintenance, 09/17/21 16:24:00 EDT, REC Powder, [facility]/pharmacy #[id number], Partial fill upon patient request [...] EC Tablet Start Date: 09/09/20 Status: Ordered Right UE combination Elbow /hand [...] EDT, Tablet Start Date: 09/09/20 Status: Ordered tiZANidine 4 mg oral tablet 4 mg, 1, tablet, By Mouth, 3 times a day, not to exceed 3 doses/day stop taking if dizzy or low blood pressure, # 90 tablet, Refills 0, Tot. Refills 0, Maintenance, 10/01/20 11:28:00 EDT, Print Requisition, Partial fill upon patient request if the pr... Start Date: 10/01/20 Status: Ordered Tylenol 325 mg oral tablet 650 mg, 2, tablet, By Mouth, Every 6 hours, PRN, Refills 0, Maintenance, as needed for mild pain orfever, 09/09/20 7:49:00 EDT Start Date: 09/09/20 Status: Ordered Venelex 788 mg-87 mg/g topical ointment See Instructions, Topically 3 times a day to affected area as needed, # 60 Gm, 6 Refills, Maintenance, 08/21/21 7:56:00 EDT, Ointment, [facility]/pharmacy #[id number], Partial fill upon patient request if the prescription is for a schedule II opioid drug., Topical... Start Date: 08/21/21 Status: Ordered Problem List Condition Effective Dates Status Health Status Inform ant Lower extremity edema(Confirmed) Active
--- OUTSIDE RECORDS SUMMARY | 2023-06-07 22:02 | XMS_ITS | Continuity of Care Document ---
Author Name Unknown Organization [facility] Address [address] [place], [place] [address]juno hanks, [address] [place] [address]- Care Team Providers Care Maintenance Superintendent Name Role Phone Not on Staff, PCP Primary Care Physician Unavail able Encounter [facility] [place] [place] Date(s): 06/11/21 - 07/11/21 [facility] [address] [place] [address] Drive, [address] [place], [place] [address] Allergies, Adverse Reactions, Alerts No Known Allergies Medications albuterol 90 mcg/inh inhalation aerosol 2 puffs, Inhalation, 4 times a day, Maintenance, 09/23/20 12:37:00 EDT Start Date: 09/23/20 Status: Ordered atorvastatin 10 mg oral tablet 1 tablet = 10 mg, By Mouth, Daily at bedtime, 0 Refills, Maintenance, 09/09/20 7:49:00 EDT, Tablet Start Date: 09/09/20 Status: Ordered baclofen 10 mg oral tablet 10 mg, 1, tablet, By Mouth, 3 times a day, Refills 0, Maintenance, 09/09/20 7:49:00 EDT Start Date: 09/09/20 Status: Ordered bisacodyl 10 mg rectal suppository 1 supp = 10 mg, Rectally, Every 48 hours, 0 Refills, Maintenance, 09/09/20 7:49:00 EDT, Suppository Start Date: 09/09/20 Status: Ordered gabapentin 300 mg oral capsule [...] 12:35:00 EDT Start Date: 09/23/20 Status: Ordered melatonin 3 mg oral tablet 1 tablet = 3 mg, By Mouth, Daily at bedtime, Maintenance, 09/23/20 12:26:00 EDT Start Date: 09/23/20 Status: Ordered metoprolol 50 mg oral tablet, extended release 50 mg, 1, tablet, By Mouth, Daily, Refills 0, Maintenance, 09/09/20 7:49:00 EDT Start Date: 09/09/20 Status: Ordered midodrine 5 mg oral tablet 5 mg, 1, tablet, By Mouth, 2 times a day, 9 am and 3 pm, Refills 0, Maintenance, 09/09/20 7:49:00 EDT Start Date: 09/09/20 Status: Ordered Multivitamin With Minerals 1 tablet, By Mouth, Daily, Maintenance, 09/23/20 12:29:00 EDT Start Date: 09/23/20 Status: Ordered pantoprazole 40 mg oral delayed release tablet = 40 mg, By Mouth, Daily before breakfast, 0 Refills, Maintenance, 09/09/20 7:49:00 EDT, EC Tablet Start Date: 09/09/20 Status: Ordered rivaroxaban 20 mg oral tablet [...]
--- OUTSIDE RECORDS SUMMARY | 2023-06-07 22:02 | XMS_ITS | Continuity of Care Document ---
Author Name Unknown Organization [facility] Address [address] [place] [id number]- Care Team Providers Care Adoption Counselor Name Role Phone Aba Linares DO Marlen Primary Care Physician Encounter [facility] [place] Date(s): 03/08/22 - 04/07/22 [facility] [address] [place] [address]- Allergies, Adverse Reactions, Alerts No Known Allergies [...] 09/17/21 16:22:00 EDT, Route to Pharmacy Electronically, [facility]/pharmacy #[id number], Partial fill upon patientrequest if the prescription is for a schedule II op... Start Date: 09/17/21 Status: Ordered Bedside Table with Wheels Bedside [...] 11 Refills, Maintenance, 02/10/22 14:22:00 EDT, Capsule, [facility]/pharmacy #[id number], \, 180.3, cm, 01/27/22 15:54:00 EDT, [...] 11 Refills, Maintenance, 08/20/21 15:56:00 EDT, Suppository, [facility]/pharmacy #[id number], 180.3, cm, 08/12/21 7:56:00 EDT, Height, [...] Refills, Maintenance, 09/17/21 16:24:00 EDT, REC Powder, [facility]/pharmacy #[id number], Partial fill upon patient request if [...] Start Date: 09/09/20 Status: Ordered Please provide 28/11 RESTAURANT HOURLY TEAM MEMBER care and weekly VNA visits for medication management. Please provide 28/11 RESTAURANT HOURLY TEAM MEMBER care and weekly VNA visits for medication [...] EDT, Tablet Start Date: 09/09/20 Status: Ordered traMADol 50 mg oral tablet 1 tablet = 50 mg, By Mouth, Every 12 hours, PRN as needed for pain, for 30 days, # 60 tablet, 3 Refills, Acute 05/27/22 17:03:00 EST, 01/27/22 17:03:00 EDT, Tablet, [facility]/pharmacy #[id number], 180.3, cm, 01/27/22 15:54:00 EDT, Height, 93, kg, 09/30/21 14:59:0... Start Date: 01/27/22 Stop Date: 05/27/22 Status: Ordered Tylenol 325 mg oral tablet 650 mg, 2, tablet, By Mouth, Every 6 hours, PRN, Refills 0, Maintenance, as needed for mild pain orfever, 09/09/20 7:49:00 EDT Start Date: 09/09/20 Status: Ordered Venelex 788 mg-87 mg/g topical ointment See Instructions, Topically 3 times a day to affected area as needed, # 60 Gm, 6 Refills, Maintenance, 08/21/21 7:56:00 EDT, Ointment, [id number], Partial fill upon patient request if the prescription is for a schedule II opioid drug., Topical... Start Date: 08/21/21 Status: Ordered Problem List Condition Confirmation Course Effective Dates Status Health St atus Informant Lower extremity edema Confirmed Active Patient Care team information Care Team Personnel Name: Danny Whittaker RN Position: [facility] ED RN W/OE and Tasks Member Role: Primary Care Nurse Name: Aba Linares DO Position: Reference Physician Member Role: PCP Address: Address: [address] [place] [address] [place] [address]- Name: Tesha Kirkpatrick RN Position: [facility] RN Member Role: Primary Care Nurse Name: Vera Patricia RN Position: [facility] RN Member Role: Primary Care Nurse Name: Pau Mills RN Position: [facility] AMB Nurse Member Role: Primary Care Nurse Name: Genevieve Orozco RN Position: [facility] RN Member Role: Primary Care Nurse Care Team Related Persons Name: CIRO TORREZ Address: [address] [address]
--- OUTSIDE RECORDS SUMMARY | 2023-06-07 22:02 | XMS_ITS | Continuity of Care Document ---
Author Name Unknown Organization [facility] Address [address], [address] [place] [address]- Care Team Providers Care Administration Manager Name Role Phone Aba Linares DO Primary Care Physician Encounter [facility] [place] Date(s): 01/24/22 - 02/23/22 [facility] [address], 4th [address] [place] [address]- Allergies, Adverse Reactions, Alerts No Known Allergies [...] 09/17/21 16:22:00 EDT, Route to Pharmacy Electronically, [facility]/pharmacy #[id number], Partial fill upon patientrequest if the prescription [...] 11 Refills, Maintenance, 02/10/22 14:22:00 EDT, Capsule, [facility]/pharmacy #[id number], \, 180.3, cm, 01/27/22 15:54:00 EDT, [...] 11 Refills, Maintenance, 08/20/21 15:56:00 EDT, Suppository, [facility]/pharmacy #[id number], 180.3, cm, 08/12/21 7:56:00 EDT, Height, [...] Refills, Maintenance, 09/17/21 16:24:00 EDT, REC Powder, [facility]/pharmacy #[id number], Partial fill upon patient request if [...] Date: 09/09/20 Status: Ordered Please provide 28/11 MYSQL DEVELOPER care and weekly VNA visits for medication management. Please provide 28/11 MYSQL DEVELOPER care and weekly VNA visits for medication [...] 05/27/22 17:03:00 EST, 01/27/22 17:03:00 EDT, Tablet, [facility]/pharmacy #[id number], 180.3, cm, 01/27/22 15:54:00 EDT, Height, [...] 6 Refills, Maintenance, 08/21/21 7:56:00 EDT, Ointment, [facility]/pharmacy #[id number], Partial fill upon patient request if the prescription is for a schedule II opioid drug., Topical... Start Date: 08/21/21 Status: Ordered Problem List Condition Confirmation Course Effective Dates Status Health St atus Informant Lower extremity edema Confirmed Active Patient Care team information Personnel Name: Aba Linares DO Address: Address: [address] [place] [address] Internal Medicine [place], [place] [address]
--- OUTSIDE RECORDS SUMMARY | 2023-06-07 22:02 | XMS_ITS | Continuity of Care Document ---
Author Name Unknown Organization [facility] Physical [facility]icine and Rehabilitation Address [address] [facility] [address] [place] [address]- Care Team Providers Care Accounting Supervisor Name Role Phone Aba Linares DO Marlen Primary Care Physician [phone] Encounter [facility] Date(s): 03/16/22 - 04/15/22 [facility] Physical Medicine and Rehabilitation [address] [place] [address]- Allergies, Adverse Reactions, Alerts No Known Allergies [...] 09/17/21 16:22:00 EDT, Route to Pharmacy Electronically, [facility]/pharmacy #[id number], Partial fill upon patientrequest if the prescription [...] 11 Refills, Maintenance, 02/10/22 14:22:00 EDT, Capsule, [facility]/pharmacy #[id number], \, 180.3, cm, 01/27/22 15:54:00 EDT, [...] 11 Refills, Maintenance, 08/20/21 15:56:00 EDT, Suppository, [facility]/pharmacy #[id number], 180.3, cm, 08/12/21 7:56:00 EDT, Height, [...] Refills, Maintenance, 09/17/21 16:24:00 EDT, REC Powder, [facility]/pharmacy #[id number], Partial fill upon patient request if [...] Date: 09/09/20 Status: Ordered Please provide 28/11 SLITTING MACHINE OPERATOR HELPER care and weekly VNA visits for medication management. Please provide 28/11 SLITTING MACHINE OPERATOR HELPER care and weekly VNA visits for medication [...] 05/27/22 17:03:00 EST, 01/27/22 17:03:00 EDT, Tablet, [facility]/pharmacy #[id number], 180.3, cm, 01/27/22 15:54:00 EDT, Height, [...] Refills, Maintenance, 08/21/21 7:56:00 EDT, Ointment, [id number], Partial fill upon patient request if the prescription is for a schedule II opioid drug., Topical... Start Date: 08/21/21 Status: Ordered Problem List Condition Confirmation Course Effective Dates Status Health St atus Informant Lower extremity edema Confirmed Active Patient Care team information Care Team Personnel Name: Danny Whittaker RN Position: [facility] ED RN W/OE and Tasks Member Role: Primary Care Nurse Name: Aba Linares DO Position: Reference Physician Member Role: PCP Address: Address: [address] [place] [address] [place] [address]- Name: Tesha Kirkpatrick RN Position: [facility] RN Member Role: Primary Care Nurse Name: Vera Patricia RN Position: [facility] RN Member Role: Primary Care Nurse Name: Pau Mills RN Position: [facility] AMB Nurse Member Role: Primary Care Nurse Name: Genevieve Orozco RN Position: [facility] RN Member Role: Primary Care Nurse Care Team Related Persons Name: CIRO TORREZ Address: [address] [address]
--- OUTSIDE RECORDS SUMMARY | 2023-06-07 22:02 | XMS_ITS | Continuity of Care Document ---
Author Name Unknown Organization [facility] Physical Me dicine and Rehabilitation Address Unknown Care Team Providers Care Boiler Tender Name Role Phone Milagros CHUNG Aba Gee Primary Care Physician Encounter [facility] [place] Date(s): 09/30/21 - 10/07/21 [facility] Medicine [facility] Rehabilitation Encounter Diagnosis Lower extremity edema(Discharge Diagnosis) - 09/30/21 Attending Physician: Eran Garcia MD Allergies, Adverse Reactions, Alerts No Known Allergies [...] 09/17/21 16:22:00 EDT, Route to Pharmacy Electronically, [facility]/pharmacy #[id number], Partial fill upon patientrequest if the prescription [...] 11 Refills, Maintenance, 08/20/21 15:56:00 EDT, Suppository, [facility]/pharmacy #[id number], 180.3, cm, 08/12/21 7:56:00 EDT, [...] Refills, Maintenance, 09/17/21 16:24:00 EDT, REC Powder, [facility]/pharmacy #[id number], Partial fill upon patient request [...] 6 Refills, Maintenance, 08/21/21 7:56:00 EDT, Ointment, [facility]/pharmacy #[id number], Partial fill upon patient request if the prescription is for a schedule II opioid drug., Topical... Start Date: 08/21/21 Status: Ordered Problem List Condition Effective Dates Status Health Status Inform ant Lower extremity edema(Confirmed) Active Diagnosis Diagnosis Type Effective Dates Health Status Cl inical Service Informant Lower extremity edema Discharge Diagnosis 09/30/21 Vital Signs Most recent to oldest [Reference Range]: 1 Height 180.3 cm (09/30/21 2:59 PM) Weight 93 kg (09/30/21 2:59 PM) Oxygen Saturation [94-100 %] 100 % (09/30/21 2:59 PM) Pulse Rate [55-90 bpm] 66 bpm (09/30/21 2:59 PM) Body Mass Index [18.5-24.99] 28.61 *H* (09/30/21 2:59 PM) Blood Pressure [90-138/55-84 mm Hg] 97/4 8mm Hg (09/30/21 2:59 PM) Temperature [96.8-100.4 DegF] 98.0 DegF (09/30/21 2:59 PM) Mode of Delivery (Oxygen) Room air (09/30/21 2:59 PM) Blood pressure sites Arm, left (09/30/21 2:59 PM) Temperature Route Temporal (09/30/21 2:59 PM) Dry Weight 93 kg (09/30/21 2:59 PM)
--- OUTSIDE RECORDS SUMMARY | 2023-06-07 22:02 | XMS_ITS | Continuity of Care Document ---
Author Name Unknown Organization [facility] Address [address] [place] [address] Drjuno hanks, [address] [place] [address]- Care Team Providers Care Solar Energy Technician Name Role Phone Not on Staff, PCP Primary Care Physician Unavail able Encounter [facility] Date(s): 09/07/20 - 10/07/20 [facility] [address] [place] [address] Drive, [address] [place], [place] [address] Allergies, Adverse Reactions, Alerts Substance Reaction Severity Status NKA Active Medications albuterol 90 mcg/inh inhalation aerosol 2 [...] 12:29:00 EDT Start Date: 09/23/20 Status: Ordered oxyCODONE 5 mg oral tablet 1-2, By Mouth, Every 6 hours, PRN, # 60 tablet, Refills 0, Tot. Refills 0, Acute 11/01/20 12:00:00 EDT, Pain , Moderate, 10/01/20 11:27:00 EDT, Print Requisition, Partial fill upon patient request ifthe prescription is for a schedule II opioid drug. Start Date: 10/01/20 Stop Date: 11/01/20 Status: Ordered pantoprazole 40 mg oral delayed [...]
--- OUTSIDE RECORDS SUMMARY | 2023-06-07 22:02 | XMS_ITS | Continuity of Care Document ---
Author Name Unknown Organization [facility] Address [address] [place], [place] [address]juno hanks, [address] [place] [address]- Care Team Providers Care Incident Response Consultant Name Role Phone Not on Staff, PCP Primary Care Physician Unavail able [place] [facility] [place](s): 09/23/20 - 10/23/20 [facility] [address] [place] [address] Drive, [address] [place], [place] [address] Allergies, Adverse Reactions, Alerts Substance [...]
--- OUTSIDE RECORDS SUMMARY | 2023-06-07 22:02 | XMS_ITS | Continuity of Care Document ---
Author Name Unknown Organization [facility] Address [address] [place] [address]- Care Team Providers Care Concession Worker Name Role Phone Aba Linares DO Marlen Primary Care Physician [phone] En[facility] Date(s): 09/07/22 - 10/07/22 [facility] [address] [place] [address]- Allergies, Adverse Reactions, Alerts No Known Allergies [...] 05/26/22 15:47:00 EST, Route to Pharmacy Electronically, [facility]/pharmacy #[id number], Partial fill upon patient request if the prescription is for a schedule II opi... Start Date: 05/26/22 Status: Ordered baclofen 10 mg oral tablet 10 mg, 1, tablet, By Mouth, 3 times a day, # 270 tablet, Refills 1, Tot. Refills 1, Maintenance, 06/10/22 15:49:00 EST, Route to Pharmacy Electronically, [facility], 180.3, cm, 05/26/22 [...] 11 Refills, Maintenance, 02/10/22 14:22:00 EDT, Capsule, [facility]/pharmacy #[id number], \, 180.3, cm, 01/27/22 15:54:00 [...] 11 Refills, Maintenance, 08/20/21 15:56:00 EDT, Suppository, [facility]/pharmacy #[id number], 180.3, cm, 08/12/21 7:56:00 EDT, Height, 100.5, kg, 09/23/20 12:08:00 EDT, Dry Weight Start Date: 08/20/21 Status: Ordered Manual Cheryl lift with scale attachment Manual Cheryl lift with scale attachment, See Instructions, # 1 kit, Refills 0, Tot. Refills 0, Maintenance, Dx: Tetraplegia, 09/08/22 13:20:00 EDT, Supply Start Date: 09/08/22 Status: Ordered melatonin 3 mg oral tablet [...] Refills, Maintenance, 09/17/21 16:24:00 EDT, REC Powder, [facility]/pharmacy #[id number], Partial fill upon patient request [...] Date: 09/09/20 Status: Ordered Please provide 24/7 ADULT NEUROPSYCHOLOGIST care and weekly VNA visits for medication management. Please provide 24/7 ADULT NEUROPSYCHOLOGIST care and weekly VNA visits for medication [...] 6 Refills, Maintenance, 08/21/21 7:56:00 EDT, Ointment, [facility]/pharmacy #[id number], Partial fill upon patient request if the prescription is for a schedule II opioid drug., Topical... Start Date: 08/21/21 Status: Ordered Problem List Condition Confirmation Course Effective Dates Status Health St atus Informant Lower extremity edema Confirmed Active Patient Care team information Care Team Personnel Name: Danny Whittaker RN Position: [facility] ED RN W/OE and Tasks Member Role: Primary Care Nurse Name: Aba Linares DO Position: Reference Physician Member Role: PCP Address: Address: [address] [place] [address] Internal Medicine [place], [place] [address] Name: Tesha Kirkpatrick RN Position: S RN Member Role: Primary Care Nurse Name: Vera Patricia RN Position: [facility] AMB Nurse Member Role: Primary Care Nurse Name: Pau Mills RN Position: [facility] AMB Nurse Member Role: Primary Care Nurse Name: Genevieve Orozco RN Position: [facility] RN Member Role: Primary Care Nurse Care Team Related Persons Name: CIRO TORREZ Address: home [address] [address] Name: PAULA WALLIS Address: [place] [address]
--- OUTSIDE RECORDS SUMMARY | 2023-06-07 22:02 | XMS_ITS | Continuity of Care Document ---
Author Name Unknown Organization [facility] Address [address] [place] [address]- Care Team Providers Care Project Production Engineer Name Role Phone Aba Linares DO Marlen Primary Care Physician Encounter [facility] [place] Date(s): 05/12/22 - 09/24/[address] [address] Encounter Diagnosis Quadriplegia, unspecified(Final) - Discharge Disposition: A-D/C Home Attending Physician: Eran Garcia MD Admitting Physician: Eran Garcia MD Referring Physician: Eran Garcia MD Allergies, Adverse Reactions, [...] 05/26/22 15:47:00 EST, Route to Pharmacy Electronically, [facility]/pharmacy #[id number], Partial fill upon patient request if the prescription is for a schedule II opi... Start Date: 05/26/22 Status: Ordered baclofen 10 mg oral tablet 10 mg, 1, tablet, By Mouth, 3 times a day, # 270 tablet, Refills 1, Tot. Refills 1, Maintenance, 06/10/22 15:49:00 EST, Route to Pharmacy Electronically, [facility], 180.3, cm, 05/26/22 [...] 11 Refills, Maintenance, 02/10/22 14:22:00 EDT, Capsule, [facility]/pharmacy #[id number], \, 180.3, cm, 01/27/22 [...] 11 Refills, Maintenance, 08/20/21 15:56:00 EDT, Suppository, [facility]/pharmacy #[id number], 180.3, cm, 08/12/21 7:56:00 [...] Refills, Maintenance, 09/17/21 16:24:00 EDT, REC Powder, [facility]/pharmacy #[id number], Partial fill upon patient [...] Date: 09/09/20 Status: Ordered Please provide 24/7 BUSINESS TAXES SPECIALIST care and weekly VNA visits for medication management. Please provide 24/7 BUSINESS TAXES SPECIALIST care and weekly VNA visits for medication [...] 6 Refills, Maintenance, 08/21/21 7:56:00 EDT, Ointment, [facility]/pharmacy #[id number], Partial fill upon patient request if the prescription is for a schedule II opioid drug., Topical... Start Date: 08/21/21 Status: Ordered Problem List Condition Confirmation Course Effective Dates Status Health St atus Informant Lower extremity edema Confirmed Active Patient Care team information Care Team Personnel Name: Danny Whittaker RN Position: [facility] ED RN W/OE and Tasks Member Role: Primary Care Nurse Name: Aba Linares DO Position: Reference Physician Member Role: PCP Address: Address: [address] [place] [address] Internal Medicine [place], [place] [address] Name: Tesha Kirkpatrick RN Position: [facility] RN Member Role: Primary Care Nurse Name: Vera Patricia RN Position: [facility] AMB Nurse Member Role: Primary Care Nurse Name: Pau Mills RN Position: [facility] AMB Nurse Member Role: Primary Care Nurse Name: Genevieve Orozco RN Position: [facility] RN Member Role: Primary Care Nurse Care Team Related Persons Name: CIRO TORREZ Address: [address] [place] [address] Name: PAULA WALLIS Address: [place] [address]
--- OUTSIDE RECORDS SUMMARY | 2023-06-07 22:02 | XMS_ITS | Continuity of Care Document ---
Author Name Unknown Organization [facility] Address [address] [place] [address]- Care Team Providers Care Gang Leader Name Role Phone Aba Linares DO Primary Care Physician [phone] Encounter [facility] Date(s): 09/07/22 - 10/07/22 [facility] [address] [address] Allergies, Adverse Reactions, Alerts No Known [...] 05/26/22 15:47:00 EST, Route to Pharmacy Electronically, [facility]/pharmacy #[id number], Partial fill upon patient request if the prescription is for a schedule II opi... Start Date: 05/26/22 Status: Ordered baclofen 10 mg oral tablet 10 mg, 1, tablet, By Mouth, 3 times a day, # 270 tablet, Refills 1, Tot. Refills 1, Maintenance, 06/10/22 15:49:00 EST, Route to Pharmacy Electronically, [facility], 180.3, cm, 05/26/22 [...] 11 Refills, Maintenance, 02/10/22 14:22:00 EDT, Capsule, [facility]/pharmacy #[id number], \, 180.3, cm, 01/27/22 15:54:00 EDT, [...] 11 Refills, Maintenance, 08/20/21 15:56:00 EDT, Suppository, [facility]/pharmacy #[id number], 180.3, cm, 08/12/21 7:56:00 EDT, Height, [...] Refills, Maintenance, 09/17/21 16:24:00 EDT, REC Powder, [facility]/pharmacy #[id number], Partial fill upon patient request if [...] Date: 09/09/20 Status: Ordered Please provide 24/7 TOBACCO DRUMMER care and weekly VNA visits for medication management. Please provide 24/7 TOBACCO DRUMMER care and weekly VNA visits for medication [...] 6 Refills, Maintenance, 08/21/21 7:56:00 EDT, Ointment, [facility]/pharmacy #[id number], Partial fill upon patient request if [...] Reference Physician Member Role: PCP Address: Address: [address] [place] [address] Internal Medicine [place], [place] [address] Name: Tesha Kirkpatrick RN Position: [facility] RN Member Role: Primary Care Nurse Name: Vera Patricia RN Position: [facility] AMB Nurse Member Role: Primary Care Nurse Name: Pua Mills RN Position: [facility] AMB Nurse Member Role: Primary Care Nurse Name: Genevieve Orozco RN Position: S RN Member Role: Primary Care Nurse Care Team Related Persons Name: CIRO TORREZ Address: home [address] [place] [address] Name: PAULA WALLIS Address: [place] [address]
--- OUTSIDE RECORDS SUMMARY | 2023-06-07 22:02 | XMS_ITS | Continuity of Care Document ---
Author Name Unknown Organization [facility] Address [address] [place] [id number]- Care Team Providers Care Filling Separator Name Role Phone AidenAba olivia DO Primary Care Physician [place] [facility] [place] Date(s): 02/09/23 - 02/16/23 [facility] [address] [place] [address]- Attending Physician: Eran Garcia MD Referring Physician: Aba Linares DO Allergies, Adverse [...] tablet, By Mouth, 3 times a day, PRN, # 270 tablet, Refills 1, Tot. Refills 1, Maintenance, Spasm, 02/09/23 14:14:00 EDT, Route to Pharmacy Electronically, [email or web address],178, cm, 02/09/23 13:48:00 EDT, Height, 120, kg, 06... Start Date: 02/09/23 Status: Ordered baclofen 10 mg oral tablet 10 mg, 1, tablet, By Mouth, 3 times a day, # 90 tablet, Refills 0, Tot. Refills 0, Maintenance, 05/26/22 15:47:00 EST, Route to Pharmacy Electronically, [facility]/pharmacy #[id number], Partial fill upon patient request if the prescription is for a schedule II opi... Start Date: 05/26/22 Status: Ordered Bedside Table with Wheels Bedside [...] EDT, Supply Start Date: 09/30/21 Status: Ordered Bilateral Wrist hand orthoses Bilateral Wrist hand orthoses, See Instructions, # 1 each, Refills 0, Tot. Refills 0, Maintenance, Dx: Tetraplegia, 10/25/22 9:47:00 EDT, Supply Start Date: 10/25/22 Status: Ordered bisacodyl 10 mg rectal suppository 1 supp = 10 mg, Rectally, Every 48 hours, 0 Refills, Maintenance, 09/09/20 7:49:00 EDT, Suppository Start Date: 09/09/20 Status: Ordered Botox 100 units injection See Instructions, 200 units total to right elbow flexors +/- shoulder., # 1 kit, 3 Refills, Maintenance, 11/24/22 15:14:00 EDT, Partial fill upon patient request if the prescription is for a scheduleII opioid drug. Start Date: 11/24/22 Status: Ordered docusate sodium 100 mg oral capsule 1 capsule = 100 mg, By Mouth, 2 times a day, PRN for constipation, # 60 capsule, 11 Refills, Maintenance, 01/04/23 14:53:00 EDT, Capsule, [facility], \, 178, cm, 11/17/22 15:17:00 EDT, Height, 120, kg, 10/26/22 18:50:00 EDT, Dry... Start Date: 01/04/23 Status: Ordered Eliquis Starter Pack 5 mg [...] Date: 09/09/20 Status: Ordered Please provide 28/11 MICROBIOLOGICAL ANALYST care and weekly VNA visits for medication management. Please provide 28/11 MICROBIOLOGICAL ANALYST care and weekly VNA visits for medication [...] 6 Refills, Maintenance, 08/21/21 7:56:00 EDT, Ointment, [facility]/pharmacy #[id number], Partial fill upon patient request if the prescription is for a schedule II opioid drug., Topical... Start Date: 08/21/21 Status: Ordered Problem List Condition Confirmation Course Effective Dates Status Health St atus Informant Presence of intrathecal baclofen pump Confirmed Active Lower extremity edema Confirmed Active Obese class II Confirmed Active Vital Signs Most recent to oldest [Reference Range]: 1 Height 178 cm (02/09/23 1:48 PM) Mode of Delivery (Oxygen) Room air (02/09/23 1:48 PM) Blood pressure sites Arm, right (02/09/23 1:48 PM) Patient Care team information Care Team Personnel Name: Danny Whittaker RN Position: [facility] ED RN W/OE and Tasks Member Role: Primary Care Nurse Name: Aba Linares DO Position: Reference Physician Member Role: PCP Address: Address: [address] [place] [address] Internal Medicine [place], [place] [address] Name: Tesha Kirkpatrick RN Position: [facility] RN Member Role: Primary Care Nurse Name: Vera Patricia RN Position: [facility] AMB Nurse Member Role: Primary Care Nurse Name: Genevieve Orozco RN Position: [facility] RN Member Role: Primary Care Nurse Care Team Related Persons Name: CIRO TORREZ Address: [address] [address] Name: FARNAZ HANNAH
--- OUTSIDE RECORDS SUMMARY | 2023-06-07 22:02 | XMS_ITS | Continuity of Care Document ---
Author Name Unknown Organization [facility] Address Unknown Care Team Providers Care Ux Consultant Name Role Phone Aba Linares DO Marlen Primary Care Physician [phone] [id number] Date(s): 09/17/21 - 10/17/21 [facility] Allergies, Adverse [...] 09/17/21 16:22:00 EDT, Route to Pharmacy Electronically, [facility]/pharmacy #[id number], Partial fill upon patientrequest if the prescription [...] 11 Refills, Maintenance, 08/20/21 15:56:00 EDT, Suppository, [facility]/pharmacy #[id number], 180.3, cm, 08/12/21 [...] Refills, Maintenance, 09/17/21 16:24:00 EDT, REC Powder, [facility]/pharmacy #[id number], Partial fill upon [...] 6 Refills, Maintenance, 08/21/21 7:56:00 EDT, Ointment, [facility]/pharmacy #[id number], Partial fill upon patient request if the prescription is for a schedule II opioid drug., Topical... Start Date: 08/21/21 Status: Ordered Problem List Condition Effective Dates Status Health Status Inform ant Lower extremity edema(Confirmed) Active
--- OUTSIDE RECORDS SUMMARY | 2023-06-07 22:02 | XMS_ITS | Continuity of Care Document ---
Author Name Unknown Organization [facility] Address [address] [place] [address]- Care Team Providers Care Online Health And Fitness Coach Name Role Phone Aba Linares DO Marlen Primary Care Physician [phone] [place] [id number] Date(s): 06/15/22 - 07/15/22 [facility] [address] [place] [address]- Attending Physician: Sumaya Rod Admitting Physician: AdmtrSumaya Referring Physician: Admtr, Ar8 Allergies, Adverse Reactions, Alerts No Known Allergies [...] 05/26/22 15:47:00 EST, Route to Pharmacy Electronically, [facility]/pharmacy #[id number], Partial fill upon patient request if the prescription is for a schedule II opi... Start Date: 05/26/22 Status: Ordered baclofen 10 mg oral tablet 10 mg, 1, tablet, By Mouth, 3 times a day, # 270 tablet, Refills 1, Tot. Refills 1, Maintenance, 06/10/22 15:49:00 EST, Route to Pharmacy Electronically, [facility], 180.3, cm, 05/26/22 [...] 11 Refills, Maintenance, 02/10/22 14:22:00 EDT, Capsule, [facility]/pharmacy #[id number], \, 180.3, cm, 01/27/22 15:54:00 [...] 11 Refills, Maintenance, 08/20/21 15:56:00 EDT, Suppository, [facility]/pharmacy #[id number], 180.3, cm, 08/12/21 [...] Refills, Maintenance, 09/17/21 16:24:00 EDT, REC Powder, [facility]/pharmacy #[id number], Partial fill upon [...] Date: 09/09/20 Status: Ordered Please provide 24/7 ROCK DUSTER care and weekly VNA visits for medication management. Please provide 24/7 ROCK DUSTER care and weekly VNA visits for medication [...] 6 Refills, Maintenance, 08/21/21 7:56:00 EDT, Ointment, [facility]/pharmacy #[id number], Partial fill upon patient request if the prescription is for a schedule II opioid drug., Topical... Start Date: 08/21/21 Status: Ordered Problem List Condition Confirmation Course Effective Dates Status [facility] St atus Informant Lower extremity edema Confirmed Active Patient Care team information Care Team Personnel Name: Danny Whittaker RN Position: [facility] ED RN W/OE and Tasks Member Role: Primary Care Nurse Name: Aba Linares DO Position: Reference Physician Member Role: PCP Address: Address: [address] [place] [address] [place] [address]- Name: Tesha Kirkpatrick RN Position: [facility] RN Member Role: Primary Care Nurse Name: Vera Patricia RN Position: [facility] RN Member Role: Primary Care Nurse Name: Pau Mills RN Position: [facility] AMB Nurse Member Role: Primary Care Nurse Name: Genevieve Orozco RN Position: [facility] RN Member Role: Primary Care Nurse Care Team Related Persons Name: CIRO TORREZ Address: home [address] [place] [address] Name: PAULA WALLIS Address: [place] [address]
--- OUTSIDE RECORDS SUMMARY | 2023-06-07 22:02 | XMS_ITS | Continuity of Care Document ---
Author Name Unknown Organization [facility] Address Unknown Care Team Providers Care Industrial Technician Name Role Phone Milagros CHUNG Aba Gee Primary Care Physician [phone] [id number] 08[facility]20[facility]21 - 09/19/21 [facility] Allergies, Adverse Reactions, [...] 09/17/21 16:22:00 EDT, Route to Pharmacy Electronically, [facility]/pharmacy #[id number], Partial fill upon patientrequest if the prescription is for a schedule II op... Start Date: 09/17/21 Status: Ordered bisacodyl 10 mg rectal suppository [...] 11 Refills, Maintenance, 08/20/21 15:56:00 EDT, Suppository, [facility]/pharmacy #[id number], 180.3, cm, 08/12/21 7:56:00 [...] Refills, Maintenance, 09/17/21 16:24:00 EDT, REC Powder, [facility]/pharmacy #[id number], Partial fill upon patient [...] 6 Refills, Maintenance, 08/21/21 7:56:00 EDT, Ointment, [facility]/pharmacy #[id number], Partial fill upon patient request if the prescription is for a schedule II opioid drug., Topical... Start Date: 08/21/21 Status: Ordered
--- OUTSIDE RECORDS SUMMARY | 2023-06-07 22:03 | XMS_ITS | Continuity of Care Document ---
Author Name Unknown Organization [facility] Address [address] [place] [address] [address] [place] [address]- Care Team Providers Care Mine Expert Name Role Phone Not on Staff, PCP Primary Care Physician Unavail able [place] [facility] [place] [facility] [place] 09/08/20 - 10/24/[address] [place], [place] [address] Attending Physician: Lindsey Dacosta MD Allergies, Adverse Reactions, Alerts Substance Reaction Severity [...]
--- OUTSIDE RECORDS SUMMARY | 2023-06-07 22:03 | XMS_ITS | Continuity of Care Document ---
Author Name Unknown Organization [facility] Address [address] [place] [address] [address], [address] [place] [address]- Care Team Providers Care Curbing Stonecutter Name Role Phone Not on Staff, PCP Primary Care Physician Unavail able En[place] [facility] [place] Date(s): 09/10/20 - 10/10/20 [facility] [address] [place] [address] Drive, [address] [place], [place] [address] Allergies, Adverse Reactions, Alerts [...]
--- OUTSIDE RECORDS SUMMARY | 2023-06-07 22:03 | XMS_ITS | Continuity of Care Document ---
Author Name Unknown Organization [facility] Address [address] [place] [address] [address] [place] [address]- Care Team Providers Care Services Account Manager Name Role Phone Aba Linares DO Primary Care Physician [phone] Encounter [facility] [place] Date(s): 08/22/22 - 09/21/22 [facility] [address] [place], [place] [address] Allergies, Adverse Reactions, Alerts No Known Allergies [...] 05/26/22 15:47:00 EST, Route to Pharmacy Electronically, [facility]/pharmacy #[id number], Partial fill upon patient request if the [...] 11 Refills, Maintenance, 02/10/22 14:22:00 EDT, Capsule, [facility]/pharmacy #[id number], \, 180.3, cm, 01/27/22 [...] 11 Refills, Maintenance, 08/20/21 15:56:00 EDT, Suppository, [facility]/pharmacy #[id number], 180.3, cm, 08/12/21 7:56:00 [...] Refills, Maintenance, 09/17/21 16:24:00 EDT, REC Powder, [facility]/pharmacy #[id number], Partial fill upon patient [...] Date: 09/09/20 Status: Ordered Please provide 24/7 PUBLIC RELATIONS SPECIALIST care and weekly VNA visits for medication management. Please provide 24/7 PUBLIC RELATIONS SPECIALIST care and weekly VNA visits for [...] 6 Refills, Maintenance, 08/21/21 7:56:00 EDT, Ointment, [facility]/pharmacy #[id number], Partial fill upon patient [...] Reference Physician Member Role: PCP Address: Address: [address] [place] [address] Internal Medicine [place], [place] [address] Name: Tesha Kirkpatrick RN Position: [facility] RN Member Role: Primary Care Nurse Name: Vera Patricia RN Position: [facility] AMB Nurse Member Role: Primary Care Nurse Name: Pau Mills RN Position: [facility] AMB Nurse Member Role: Primary Care Nurse Name: Genevieve Orozco RN Position: [facility] RN Member Role: Primary Care Nurse Care Team Related Persons Name: CIRO TORREZ Address: home [address] [place] [address] Name: PAULA WALLIS Address: [place] [address]
--- OUTSIDE RECORDS SUMMARY | 2023-06-07 22:03 | XMS_ITS | Continuity of Care Document ---
Author Name Unknown Organization [facility] Address [address] [facility] [address] [place] [address]- Care Team Providers Care Office Engineer Name Role Phone Aba Linares DO Marlen Primary Care Physician [phone] En[place] [facility] [place] Date(s): 11/24/22 - 12/24/22 [facility] [address] [place] [address]- Allergies, Adverse Reactions, Alerts No Known Allergies [...] 05/26/22 15:47:00 EST, Route to Pharmacy Electronically, [facility]/pharmacy #[id number], Partial fill upon patient request if the prescription is for a schedule II opi... Start Date: 05/26/22 Status: Ordered baclofen 10 mg oral tablet 10 mg, 1, tablet, By Mouth, 3 times a day, # 270 tablet, Refills 1, Tot. Refills 1, Maintenance, 06/10/22 15:49:00 EST, Route to Pharmacy Electronically, [facility], 180.3, cm, 05/26/22 [...] 11 Refills, Maintenance, 02/10/22 14:22:00 EDT, [facility]aps[facility], [id number], \, 180.3, cm, 01/27/22 15:54:00 EDT, [...] 11 Refills, Maintenance, 08/20/21 15:56:00 EDT, Suppository, [facility]/pharmacy #[id number], 180.3, cm, 08/12/21 7:56:00 EDT, [...] Refills, Maintenance, 09/17/21 16:24:00 EDT, REC Powder, [facility]/pharmacy #[id number], Partial fill upon patient request [...] Date: 09/09/20 Status: Ordered Please provide 24/7 SEALER DRY CELL care and weekly VNA visits for medication management. Please provide 28/11 SEALER DRY CELL care and weekly VNA visits for medication [...] 6 Refills, Maintenance, 08/21/21 7:56:00 EDT, Ointment, [facility]/pharmacy #[id number], Partial fill upon patient request if the prescription is for a schedule II opioid drug., Topical... Start Date: 08/21/21 Status: Ordered Problem List Condition Confirmation Course Effective Dates Status Health St atus Informant Lower extremity edema Confirmed Active Obese class II Confirmed Active Patient Care team information Care Team Personnel Name: Danny Whittaker RN Position: [facility] ED RN W/OE and Tasks Member Role: Primary Care Nurse Name: Aba Linares DO Position: Reference Physician Member Role: PCP Address: Address: [address] [place] [address] Internal Medicine [place], [place] [address] Name: Tesha Kirkpatrick RN Position: [facility] RN Member Role: Primary Care Nurse Name: Vera Patricia RN Position: [facility] AMB Nurse Member Role: Primary Care Nurse Name: Genevieve Orozco RN Position: S RN Member Role: Primary Care Nurse Care Team Related Persons Name: CIRO TORREZ Address: [address] [address] Name: FARNAZ HANNAH
--- OUTSIDE RECORDS SUMMARY | 2023-06-07 22:03 | XMS_ITS | Continuity of Care Document ---
Author Name Unknown Organization [facility] Address [address] [place] [address]- Care Team Providers Care Wood Shop Teacher Name Role Phone Aba Linares DO Marlen Primary Care Physician [place] [facility] [place] - 11/24/22 [facility] [address] [place] [address]- Allergies, Adverse Reactions, Alerts No Known Allergies [...] 05/26/22 15:47:00 EST, Route to Pharmacy Electronically, [facility]/pharmacy #[id number], Partial fill upon patient request if the prescription is for a schedule II opi... Start Date: 05/26/22 Status: Ordered baclofen 10 mg oral tablet 10 mg, 1, tablet, By Mouth, 3 times a day, # 270 tablet, Refills 1, Tot. Refills 1, Maintenance, 06/10/22 15:49:00 EST, [facility], 180.3, cm, 05/26/22 [...] 11 Refills, Maintenance, 08/20/21 15:56:00 EDT, Suppository, [facility]/pharmacy #[id number], 180.3, cm, 08/12/21 7:56:00 EDT, [...] Refills, Maintenance, 09/17/21 16:24:00 EDT, REC Powder, [facility]/pharmacy #[id number], Partial fill upon patient request [...] Date: 09/09/20 Status: Ordered Please provide 24/7 JUICE STANDARDIZER care and weekly VNA visits for medication management. Please provide 28/11 JUICE STANDARDIZER care and weekly VNA visits for medication [...] Team Personnel Name: Danny Whittaker RN Position: [facility] ED RN W/OE and Tasks Member Role: Primary Care Nurse Name: Aba Linares DO Position: Reference Physician Member Role: PCP Address: Address: [address] [place] [address] Internal Medicine [place], [place] [address] Name: Tesha Kirkpatrick RN Position: [facility] RN Member Role: Primary Care Nurse Name: Vera Patricia RN Position: [facility] AMB Nurse Member Role: Primary Care Nurse Name: Pau Mills RN Position: [facility] AMB Nurse Member Role: Primary Care Nurse Name: Genevieve Orozco RN Position: [facility] RN Member Role: Primary Care Nurse Care Team Related Persons Name: CIRO TORREZ Address: [address] [address] Name: FARNAZ HANNAH
--- OUTSIDE RECORDS SUMMARY | 2023-06-07 22:03 | XMS_ITS | Continuity of Care Document ---
Author Name Unknown Organization [facility] Address [address] [place] [address] [address], [address] [place] [address]- Care Team Providers Care Salary Manager Name Role Phone Not on Staff, PCP Primary Care Physician Unavail able Encounter [facility] [place] Date(s): 10/02/20 - 11/01/20 [facility] Neuro[facility] [address] [place] [address] Drive, [address] [place], [place] [address] Allergies, Adverse Reactions, Alerts Substance Reaction Severity [...]
--- OUTSIDE RECORDS SUMMARY | 2023-06-07 22:03 | XMS_ITS | Continuity of Care Document ---
Author Name Unknown Organization [facility] [place] [facility] [place] Address [address] [place] [address]- Care Team Providers Care Budget Specialist Name Role Phone Aba Linares DO Marlen Primary Care Physician [place] [facility] [place] 11[place]24/22 [facility] [address] [place] [address]- Attending Physician: Eran Garcia MD Allergies, Adverse [...] 05/26/22 15:47:00 EST, Route to Pharmacy Electronically, [facility]/pharmacy #[id number], Partial fill upon patient request if the [...] 11 Refills, Maintenance, 02/10/22 14:22:00 EDT, Capsule, [facility]/pharmacy #[id number], \, 180.3, cm, 01/27/22 15:54:00 EDT, [...] 11 Refills, Maintenance, 08/20/21 15:56:00 EDT, Suppository, [facility]/pharmacy #[id number], 180.3, cm, 08/12/21 7:56:00 EDT, Height, [...] Refills, Maintenance, 09/17/21 16:24:00 EDT, REC Powder, [facility]/pharmacy #[id number], Partial fill upon patient request if [...] Start Date: 09/09/20 Status: Ordered Please provide 24/ LAB AIDE care and weekly VNA visits for medication management. Please provide 24/ LAB AIDE care and weekly VNA visits for medication [...] 6 Refills, Maintenance, 08/21/21 7:56:00 EDT, Ointment, [facility]/pharmacy #[id number], Partial fill upon patient request if the prescription is for a schedule II opioid drug., Topical... Start Date: 08/21/21 Status: Ordered Problem List Condition Confirmation Course Effective Dates Status Health St atus Informant Lower extremity edema Confirmed Active Obese class II Confirmed Active Vital Signs Most recent to oldest [Reference Range]: 1 Height 178 cm (11/17/22 3:17 PM) Patient Care team information Care Team Personnel Name: Danny Whittaker RN Position: [facility] ED RN W/OE and Tasks Member Role: Primary Care Nurse Name: Aba Linares DO Position: Reference Physician Member Role: PCP Address: Address: [address] [place] [address] Internal Medicine [place], [place] [address] Name: Tesha Kirkpatrick RN Position: [facility] RN Member Role: Primary Care Nurse Name: Vera Patricia RN Position: [facility] AMB Nurse Member Role: Primary Care Nurse Name: Pau Mills RN Position: [facility] AMB Nurse Member Role: Primary Care Nurse Name: Genevieve Orozco RN Position: [facility] RN Member Role: Primary Care Nurse Care Team Related Persons Name: CARILorettaCIRO Address: [address] [address] Name: FARNAZ HANNAH
--- OUTSIDE RECORDS SUMMARY | 2023-06-07 22:03 | XMS_ITS | Continuity of Care Document ---
Author Name Unknown Organization [facility] Address [address] [place] [address]- Care Team Providers Care Honing Machine Operator Tool Name Role Phone Aba Linares DO Marlen Primary Care Physician [place] [facility] [place] 01[place]14[place]22 [facility] [address] [place] [address]- Allergies, Adverse Reactions, Alerts No Known Allergies [...] 09/17/21 16:22:00 EDT, Route to Pharmacy Electronically, [facility]/pharmacy #[id number], Partial fill upon patientrequest if the prescription [...] 11 Refills, Maintenance, 08/20/21 15:56:00 EDT, Suppository, [facility]/pharmacy #[id number], 180.3, cm, 08/12/21 7:56:00 EDT, [...] Refills, Maintenance, 09/17/21 16:24:00 EDT, REC Powder, [facility]/pharmacy #[id number], Partial fill upon patient request [...] Date: 09/09/20 Status: Ordered Please provide 28/11 NOVELTY TWISTER OPERATOR care and weekly VNA visits for medication management. Please provide 28/11 NOVELTY TWISTER OPERATOR care and weekly VNA visits for medication [...] Refills, Maintenance, 08/21/21 7:56:00 EDT, [facility]int[facility], [id number], Partial fill upon patient request if the prescription is for a schedule II opioid drug., Topical... Start Date: 08/21/21 Status: Ordered Problem List Condition Effective Dates Status Health Status Inform ant Lower extremity edema(Confirmed) Active Care Team Personnel Name: Aba Linares DO Address: [address] [place] [address] Internal Medicine [place], [place] [address]
--- OUTSIDE RECORDS SUMMARY | 2023-06-07 22:03 | XMS_ITS | Continuity of Care Document ---
Author Name Unknown Organization [facility] Address [address] [place] [address]- Care Team Providers Care Reconnaissance Crewmember Name Role Phone Aba Linares DO Marlen Primary Care Physician En[place] [facility] [place](s): 05/30/22 - 08/20/22 [facility] [address] [place] [address]- Attending Physician: Eran Garcia MD Allergies, Adverse Reactions, Alerts No Known Allergies Medications albuterol 90 mcg/inh inhalation aerosol 2 puffs, Inhalation, 4 times a day, Maintenance, 09/23/20 12:37:00 EDT Start Date: 09/23/20 Status: Ordered Annual Cheryl lift with scale attachment Annual Cheryl lift with scale attachment, See Instructions, # 1 kit, Refills 0, Tot. Refills 0, Maintenance, Dx: Tetraplegia, 08/18/22 12:45:00 EDT, Supply Start Date: 08/18/22 Status: Ordered atorvastatin 10 mg oral tablet [...] Pharmacy Electronically, [facility]/pharmacy #[id number], Partial fill upon patient request if the [...] Date: 09/09/20 Status: Ordered Please provide 24/7 SEWING MACHINE REPAIRER care and weekly VNA visits for medication management. Please provide 24/7 SEWING MACHINE REPAIRER care and weekly VNA visits for medication [...] Team Personnel Name: Danny Whittaker RN Position: [facility] ED RN W/OE and Tasks Member Role: Primary Care Nurse Name: Aba Linares DO Position: Reference Physician Member Role: PCP Address: Address: [address] [place] [address] Internal Medicine [place], [place] [address] Name: Tesha Kirkpatrick RN Position: [facility] RN Member Role: Primary Care Nurse Name: Vera Patricia RN Position: [facility] RN Member Role: Primary Care Nurse Name: Pau Mills RN Position: [facility] SURINDER Nurse Member Role: Primary Care Nurse Name: Genevieve Orozco RN Position: [facility] RN Member Role: Primary Care Nurse Care Team Related Persons Name: CIRO TORREZ Address: [address] [place] [address] Name: PAULA WALLIS Address: [place] [address]
--- OUTSIDE RECORDS SUMMARY | 2023-06-07 22:03 | XMS_ITS | Continuity of Care Document ---
Author Name Unknown Organization [facility] Raymond lalito Address [address] [place] [address] [address] [place] [address]- Care Team Providers Care Legal Specialist Name Role Phone Aba Linares DO Primary Care Physician [place] [facility] [place] - 09/22/22 [facility] [address] [place], [place] [address] Attending Physician: Clare Medrano MD Referring Physician: Aba Linares DO Allergies, [...] 05/26/22 15:47:00 EST, Route to Pharmacy Electronically, [facility]/pharmacy #[id number], Partial fill upon patient request if the [...] 11 Refills, Maintenance, 02/10/22 14:22:00 EDT, Capsule, [facility]/pharmacy #[id number], \, 180.3, cm, 01/27/22 15:54:00 EDT, [...] 11 Refills, Maintenance, 08/20/21 15:56:00 EDT, Suppository, [facility]/pharmacy #[id number], 180.3, cm, 08/12/21 7:56:00 EDT, Height, [...] Refills, Maintenance, 09/17/21 16:24:00 EDT, REC Powder, [facility]/pharmacy #[id number], Partial fill upon patient request if [...] Date: 09/09/20 Status: Ordered Please provide 24/7 SPECIAL EVENTS COORDINATOR care and weekly VNA visits for medication management. Please provide 24/7 SPECIAL EVENTS COORDINATOR care and weekly VNA visits for medication [...] Team Personnel Name: Danny Whittaker RN Position: [facility] ED RN W/OE and Tasks Member Role: Primary Care Nurse Name: Aba Linares DO Position: Reference Physician Member Role: PCP Address: Address: [address] [place] [address] Internal Medicine [address] Name: Tesha Kirkpatrick RN Position: [facility] RN Member Role: Primary Care Nurse Name: Vera Patricia RN Position: [facility] AMB Nurse Member Role: Primary Care Nurse Name: Pau Mills RN Position: [facility] AMB Nurse Member Role: Primary Care Nurse Name: Genevieve Orozco RN Position: [facility] RN Member Role: Primary Care Nurse Care Team Related Persons Name: CIRO TORREZ Address: home [address] [place] [address] Name: PAULA WALLIS Address: [place] [address]
--- OUTSIDE RECORDS SUMMARY | 2023-06-07 22:03 | XMS_ITS | Continuity of Care Document ---
Author Name Unknown Organization [facility] Address [address] [place] [address]- Care Team Providers Care Engine Lathe Set Up Operator Name Role Phone Aba Linares DO Marlen Primary Care Physician Encounter [facility] Date(s): 06/15/22 - 06/22/22 [facility] Physical Medicine and Rehabilitation [address] [place] [address]- Attending Physician: Eran Garcia MD Allergies, Adverse [...] 05/26/22 15:47:00 EST, Route to Pharmacy Electronically, [facility]/pharmacy #[id number], Partial fill upon patient request if the prescription is for a schedule II opi... Start Date: 05/26/22 Status: Ordered baclofen 10 mg oral tablet 10 mg, 1, tablet, By Mouth, 3 times a day, # 270 tablet, Refills 1, Tot. Refills 1, Maintenance, 06/10/22 15:49:00 EST, Route to Pharmacy Electronically, [facility], 180.3, cm, 05/26/22 [...] 11 Refills, Maintenance, 02/10/22 14:22:00 EDT, Capsule, [facility]/pharmacy #[id number], \, 180.3, cm, 01/27/22 15:54:00 EDT, [...] 11 Refills, Maintenance, 08/20/21 15:56:00 EDT, Suppository, [facility]/pharmacy #[id number], 180.3, cm, 08/12/21 7:56:00 EDT, Height, [...] Refills, Maintenance, 09/17/21 16:24:00 EDT, REC Powder, [facility]/pharmacy #[id number], Partial fill upon patient request if [...] Date: 09/09/20 Status: Ordered Please provide 24/7 INTERNET MARKETING ANALYST care and weekly VNA visits for medication management. Please provide 24/7 INTERNET MARKETING ANALYST care and weekly VNA visits for [...] 6 Refills, Maintenance, 08/21/21 7:56:00 EDT, Ointment, [facility]/pharmacy #[id number], Partial fill upon patient request if the prescription is for a schedule II opioid drug., Topical... Start Date: 08/21/21 Status: Ordered Problem List Condition Confirmation Course Effective Dates Status Health St atus Informant Lower extremity edema Confirmed Active Patient Care team information Care Team Personnel Name: Danny Whittaker RN Position: [facility] ED RN W/OE and Tasks Member Role: Primary Care Nurse Name: Aba Linares DO Position: Reference Physician Member Role: PCP Address: Address: [address] [place] [address] [place] [address]- Name: Tesha Kirkpatrick RN Position: [facility] RN Member Role: Primary Care Nurse Name: Vera Patricia RN Position: [facility] RN Member Role: Primary Care Nurse Name: Pau Mills RN Position: [facility] SURINDER Nurse Member Role: Primary Care Nurse Name: Genevieve Orozco RN Position: [facility] RN Member Role: Primary Care Nurse Care Team Related Persons Name: CIRO TORREZ Address: home [address] [place] [address] Name: PAULA WALLIS Address: [place] [address]
--- OUTSIDE RECORDS SUMMARY | 2023-06-07 22:03 | XMS_ITS | Continuity of Care Document ---
Author Name Unknown Organization [facility] Address [address] [place] [address]- Care Team Providers Care Supervisor Finishing Name Role Phone Aba Linares DO Marlen Primary Care Physician [phone] [place] [facility] [place] - 01/13/[address] [address] Attending Physician: Clare Medrano MD Admitting Physician: Clare Medrano MD Referring Physician: Clare Medrano MD Allergies, Adverse Reactions, Alerts No Known [...] 05/26/22 15:47:00 EST, Route to Pharmacy Electronically, [facility]/pharmacy #[id number], Partial fill upon patient request if the prescription is for a schedule II opi... Start Date: 05/26/22 Status: Ordered baclofen 10 mg oral tablet 10 mg, 1, tablet, By Mouth, 3 times a day, # 270 tablet, Refills 1, Tot. Refills 1, Maintenance, 01/04/23 14:53:00 EDT, Route to Pharmacy Electronically, [facility], 178, cm, 11/17/22 15:17:00 EDT, Height, 120, kg, 10/26/22 18:50... Start Date: 01/04/23 Status: Ordered Bedside Table with Wheels Bedside [...] 11 Refills, Maintenance, 08/20/21 15:56:00 EDT, Suppository, [facility]/pharmacy #[id number], 180.3, cm, 08/12/21 7:56:00 EDT, [...] Refills, Maintenance, 09/17/21 16:24:00 EDT, REC Powder, [facility]/pharmacy #[id number], Partial fill upon patient request [...] Date: 09/09/20 Status: Ordered Please provide 28/11 FISHER POUND NET OR TRAP care and weekly VNA visits for medication management. Please provide 28/11 FISHER POUND NET OR TRAP care and weekly VNA visits for medication [...] 6 Refills, Maintenance, 08/21/21 7:56:00 EDT, Ointment, [facility]/pharmacy #[id number], Partial fill upon patient request if the prescription is for a schedule II opioid drug., Topical... Start Date: 08/21/21 Status: Ordered Problem List Condition Confirmation Course Effective Dates Status Health atus Informant Presence of intrathecal baclofen pump Confirmed Active Lower extremity edema Confirmed Active Obese class II Confirmed Active Patient Care team information Care Team Personnel Name: Danny Whittaker RN Position: S ED RN W/OE and Tasks Member Role: Primary Care Nurse Name: Aba Linares DO Position: Reference Physician Member Role: PCP Address: Address: [address] [place] [address] [place] [address]- [place] Name: Tesha Kirkpatrick RN Position: [facility] RN Member Role: Primary Care Nurse Name: Vera Patricia RN Position: [facility] AMB Nurse Member Role: Primary Care Nurse Name: Genevieve Orozco RN Position: [facility] RN Member Role: Primary Care Nurse Care Team Related Persons Name: CIRO TORREZ Address: [address] [address] Name: FARNAZ HANNAH
--- OUTSIDE RECORDS SUMMARY | 2023-06-07 22:03 | XMS_ITS | Continuity of Care Document ---
Author Name Unknown Organization [facility] Address [address] [place] [address] [address], [address] [place] [address]- Care Team Providers Care Steam Clean Machine Operator Name Role Phone Not on Staff, PCP Primary Care Physician Unavail able Encounter [facility] [place] Date(s): 09/09/20 - 10/09/20 [facility] [address] [place] [address] Drive, [address] [place], [place] [address] Allergies, Adverse Reactions, Alerts [...]
--- OUTSIDE RECORDS SUMMARY | 2023-06-07 22:03 | XMS_ITS | Continuity of Care Document ---
Author Name Unknown Organization [facility] Address [address] [place] [address] [address], [address] [place] [address]- Care Team Providers Care Story Writer Name Role Phone Not on Staff, PCP Primary Care Physician Unavail able [place] [facility] [place] 08/31/20 - 11/11/20 [facility] Neurosurgery [address] [place] [address] Drive, [address] [place], [place] [address] Attending Physician: Not on Staff, Attending MD Allergies, Adverse Reactions, Alerts Substance Reaction [...]
--- OUTSIDE RECORDS SUMMARY | 2023-06-07 22:03 | XMS_ITS | Continuity of Care Document ---
Author Name Unknown Organization [facility] ter Address [address] [place] [address]- Care Team Providers Care Caustic Preparer Name Role Phone Not on Staff, PCP Primary Care Physician Unavail able En[place] [facility] [place] Date(s): 09/16/20 - 10/15/[address] [address]- Attending Physician: Dre Alexandre MD Admitting Physician: Dre Alexandre MD Allergies, Adverse Reactions, Alerts Substance Reaction [...]
--- OUTSIDE RECORDS SUMMARY | 2023-06-07 22:03 | XMS_ITS | Continuity of Care Document ---
Author Name Unknown Organization [facility] Raymond lalito Address [address] [place] [address] ve [address] [place] [address]- Care Team Providers Care Poem Writer Name Role Phone Aba Linares DO Marlen Primary Care Physician Encounter [facility] Date(s): 08/23/22 - 09/22/22 [facility] [address] [place], [place] [address] Attending Physician: Sumaya Rod Admitting Physician: AdmtrSumaya [...] 05/26/22 15:47:00 EST, Route to Pharmacy Electronically, [facility]/pharmacy #[id number], Partial fill upon patient request if the [...] 11 Refills, Maintenance, 02/10/22 14:22:00 EDT, Capsule, [facility]/pharmacy #[id number], \, 180.3, cm, 01/27/22 15:54:00 [...] 11 Refills, Maintenance, 08/20/21 15:56:00 EDT, Suppository, [facility]/pharmacy #[id number], 180.3, cm, 08/12/21 7:56:00 [...] Refills, Maintenance, 09/17/21 16:24:00 EDT, REC Powder, [facility]/pharmacy #[id number], Partial fill upon patient [...] Date: 09/09/20 Status: Ordered Please provide 24/7 GUEST ROOM ATTENDANT care and weekly VNA visits for medication management. Please provide 24/7 GUEST ROOM ATTENDANT care and weekly VNA visits for medication [...] 6 Refills, Maintenance, 08/21/21 7:56:00 EDT, Ointment, [facility]/pharmacy #[id number], Partial fill upon patient request if the prescription is for a schedule II opioid drug., Topical... Start Date: 08/21/21 Status: Ordered Problem List Condition Confirmation Course Effective Dates Status Health St atus Informant Lower extremity edema Confirmed Active Patient Care team information Care Team Personnel Name: Danny Whittaker RN Position: [facility] ED RN W/OE and Tasks Member Role: Primary Care Nurse Name: Aba Linares DO Position: Reference Physician Member Role: PCP Address: Address: [address] [place] [address] Internal Medicine [place], [place] [address] Name: Tesha Kirkpatrick RN Position: [facility] RN Member Role: Primary Care Nurse Name: Vera Patricia RN Position: [facility] AMB Nurse Member Role: Primary Care Nurse Name: Pau Mills RN Position: [facility] AMB Nurse Member Role: Primary Care Nurse Name: Genevieve Orozco RN Position: [facility] RN Member Role: Primary Care Nurse Care Team Related Persons Name: CIRO TORREZ Address: home [address] [address] Name: PAULA WALLIS Address: [place] [address]
--- OUTSIDE RECORDS SUMMARY | 2023-06-07 22:03 | XMS_ITS | Continuity of Care Document ---
Author Name Unknown Organization [facility] Address [address] [place] [address]- Care Team Providers Care Shallot Packer Name Role Phone Not on Staff, PCP Primary Care Physician Unavail able Encounter 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 Start Date: 09/09/20 Status: Ordered baclofen 10 mg oral tablet 5 mg, 0.5, tablet, By Mouth, 3 times a day, Refills 0, Maintenance, 09/09/20 7:49:00 EDT, Partial fill upon patient request if the prescription is for a schedule II opioid drug. Start Date: 09/09/20 Status: Ordered bisacodyl 10 mg rectal suppository 1 supp = 10 mg, Rectally, 2 times a day, PRN Constipation, 0 Refills, Maintenance, 09/09/20 7:49:00EDT, Suppository, Partial fill upon patient request if the prescription is for a schedule II opioiddrug. Start Date: 09/09/20 Status: Ordered Duoneb Inhalation Solution 1, vials, BAND Nebulizer, Every 6 hours, PRN, Refills 0, Maintenance, 09/09/20 7:49:00 EDT, Inhalation Solution Start Date: 09/09/20 Status: Ordered gabapentin 100 mg oral capsule 300 mg, Capsule, By Mouth, 09/09/20 9:00:00 EDT Start Date: 09/09/20 Stop Date: 09/09/20 Status: Completed gabapentin 100 mg oral capsule 300 mg, 3, capsule, By Mouth, 3 times a day, Refills 0, Maintenance, 09/09/20 7:49:00 EDT, Partial fill upon patient request if the prescription is for a schedule II opioid drug. Start Date: 09/09/20 Status: Ordered melatonin 5 mg oral tablet By Mouth, Daily at bedtime, 0 Refills, Maintenance, 09/09/20 7:49:00 EDT, Tablet, Partial fill uponpatient request if the prescription is for a schedule II opioid drug. Start Date: 09/09/20 Status: Ordered metoprolol 50 mg oral tablet, extended release 50 mg, 1, tablet, By Mouth, Daily, Refills 0, Maintenance, 09/09/20 7:49:00 EDT, Partial fill upon patient request if the prescription is for a schedule II opioid drug. Start Date: 09/09/20 Status: Ordered midodrine 5 mg oral tablet 5 mg, Tablet, By Mouth, 09/09/20 9:00:00 EDT Start Date: 09/09/20 Stop Date: 09/09/20 Status: Completed midodrine 5 mg oral tablet 5 mg, 1, tablet, By Mouth, 3 times a day, Refills 0, Maintenance, 09/09/20 7:49:00 EDT, Partial fill upon patient request if the prescription is for a schedule II opioid drug. Start Date: 09/09/20 Status: Ordered midodrine 5 mg oral tablet 5 mg, Tablet, By Mouth, 09/08/20 15:00:00 EDT Start Date: 09/08/20 Stop Date: 09/08/20 Status: Completed midodrine 5 mg oral tablet 5 mg, Tablet, By Mouth, 09/08/20 21:00:00 EDT Start Date: 09/08/20 Stop Date: 09/08/20 Status: Completed oxyCODONE 5 mg oral tablet 5 mg, 1, tablet, By Mouth, Every 6 hours, PRN, for 7 days, # 42 tablet, Refills 0, Tot. Refills 0, Acute 09/16/20 7:49:00 EDT, Pain , Moderate, 09/09/20 7:49:00 EDT, Print Requisition, Partial fill upon patient request if the prescription is for a papa... Start Date: 09/09/20 Stop Date: 09/16/20 Status: Ordered oxyCODONE 5 mg oral tablet 5 mg, 1, tablet, By Mouth, Every 4 hours, PRN, for 7 days, # 42 tablet, Refills 0, Tot. Refills 0, Acute 09/16/20 10:03:00 EDT, Pain , Moderate, 09/09/20 10:03:00 EDT, Print Requisition, Partial fillupon patient request if the prescription is for a s... Start Date: 09/09/20 Stop Date: 09/16/20 Status: Ordered pantoprazole 40 mg oral delayed release tablet = 40 mg, By Mouth, Daily, 0 Refills, Maintenance, 09/09/20 7:49:00 EDT, EC Tablet Start Date: 09/09/20 Status: Ordered rivaroxaban 20 mg oral tablet = 20 mg, By Mouth, Daily at supper, 0 Refills, Maintenance, 09/09/20 7:49:00 EDT, Tablet, Partial fill upon patient request if the prescription is for a schedule II opioid drug. Start Date: 09/09/20 Status: Ordered Tylenol 325 mg oral tablet 650 mg, 2, tablet, By Mouth, Every 6 hours, PRN, Refills 0, Maintenance, Pain , Mild, 09/09/20 7:49:00 EDT, Partial fill upon patient request if the prescription is for a schedule II opioid drug. Start Date: 09/09/20 Status: Ordered Results Radiology Reports * Exam Date Time Procedure Performing Provider Status 09/05/20 10:11 AM Chest Portable Adina Saleh; Auth ( Verified) Notes: (Chest Portable) Reason For Exam: Shortness of Breath RESULT: Chest Portable Chest Portable upright at 9:55 AM Reason: Shortness of Breath; Clinical Question(s): Atelectasis COMPARISON: Multiple priors, the most recent 09/02/2020 FINDINGS: LINES AND TUBES: None. LUNGS AND PLEURA: Low lung volumes again noted. There is bibasilar atelectasis. Lungs are otherwise clear with normalvascularity. Haziness again noted in the left costophrenic angle. No right pleural effusion. No pneumothorax. HEART, MEDIASTINUM AND AURELIO: Heart is normal in size. Normal upper mediastinal and hilar contour. BONES AND SOFT TISSUES: Recent fractures of left ribs 6 and 7 again noted. Evidence of remote surgery in the left shoulder. IMPRESSION: Suboptimal inspiration with bibasilar atelectasis, left greater than right, and possible small leftpleural effusion. Findings are similar to 09/02/2020. Recent left rib fractures without interval change. WSN: [id number] Ordering Physician: Srini Maldonado Dictated By: Yeison Sood MD Dictated Date/Time: 09/05/20 11:14 a Reviewed By: Yeison Sood MD Signed By: Yeison Sood MD Signed Date/Time: 09/05/20 11:14 am Transcribed By: JEANETTE Transcribed Date/Time: 09/05/20 11:12 am * Exam Date Time Procedure Performing Provider Status 09/02/20 6:10 AM Chest Portable Miriam Wagner; Auth (V erified) Notes: (Chest Portable) Reason For Exam: Cough RESULT: Chest Portable Chest Portable performed upright at 5:54 AM INDICATION: Cough. COMPARISON: multiple priors, the most [id number]/01/2020. FINDINGS: LINES AND TUBES: Right IJ central venous catheter terminating at the middle third SVC. LUNGS AND PLEURA: Unchanged left basilar, retrocardiac opacity. Right lung is clear. Normal pulmonary vascularity. Small left pleural effusion. No pneumothorax. HEART, MEDIASTINUM AND AURELIO: Unchanged. BONES AND SOFT TISSUES: Multiple left posterior nondisplaced rib fractures. IMPRESSION: No change since prior. I have personally reviewed the images and I agree with this report. WSN: [id number] Ordering Physician: Hung Morales Dictated By: Bandar[Radiology] Heraclio CAMACHO Dictated Date/Time: 09/02/20 3:12 pm Reviewed By: Kenya Lopez MD Signed By: Kenya Lopez MD Signed Date/Time: 09/02/20 3:17 pm Transcribed By: JEANETTE Transcribed Date/Time: 09/02/20 2:56 pm * Exam Date Time Procedure Performing Provider Status 09/01/20 12:20 PM Chest Portable Olive Alatorre; Auth (Verified) Notes: (Chest Portable) Reason For Exam: Shortness of Breath RESULT: Chest Portable Chest Portable Reason: Shortness of Breath COMPARISON: 08/31/2020 FINDINGS: LINES AND TUBES: Right IJ central venous catheter with tip in SVC. LUNGS AND PLEURA: Low lung volumes. Bibasilar atelectasis, left greater than right. Lungs are otherwise clear with normal vascularity. Slight blunting of left costophrenic angle. No pneumothorax. HEART, MEDIASTINUM AND AURELIO: No significant interval change. BONES AND SOFT TISSUES: No new abnormality. Evidence of remote surgery in the left shoulder. Left-sided rib fractures are again noted. IMPRESSION: No significant interval change. WSN: [id number] Ordering Physician: Mauricio Berman Dictated By: Sebastián Aparicio MD Dictated Date/Time: 09/01/20 12:48 p Reviewed By: Sebastián Aparicio MD Signed By: Sebastián Aparicio MD Signed Date/Time: 09/01/20 12:48 pm Transcribed By: JEANETTE Transcribed Date/Time: 09/01/20 12:45 pm * Exam Date Time Procedure Performing Provider Status 08/31/20 8:18 AM Chest Portable Gloria Matias; Emery (Verified) Notes: (Chest Portable) Reason For Exam: Cough RESULT: Chest Portable Chest Portable upright at 8:03 AM Reason: Cough COMPARISON: 08/29 and 08/30/2020 FINDINGS: LINES AND TUBES: Right IJ central venous catheter with tip in SVC, unchanged. LUNGS AND PLEURA: Bibasilar atelectasis, left greater than right. Lungs are otherwise clear with normal vascularity. Slight blunting of left costophrenic angle. No pneumothorax. HEART, MEDIASTINUM AND AURELIO: Heart is normal in size. Normal upper mediastinal and hilar contour. BONES AND SOFT TISSUES: No acute abnormality. Evidence of remote surgery in the left shoulder. Recent fractures of left ribs 5 6, and 7 IMPRESSION: Bibasilar atelectasis, left greater than right, with possible small left pleural effusion. Recent fractures of left ribs 5 through 7 without change from previous studies. WSN: [id number] Ordering Physician: Francisco Smith Dictated By: Yeison Sood MD Dictated Date/Time: 08/31/20 3:07 pm Reviewed By: Yeison Sood MD Signed By: Yeison Sood MD Signed Date/Time: 08/31/20 3:07 pm Transcribed By: JEANETTE Transcribed Date/Time: 08/31/20 3:05 pm * Exam Date Time Procedure Performing Provider Status 08/30/20 4:23 PM Chest Portable Patricia Solorio (Verified) Notes: (Chest Portable) Reason For Exam: R IJ;Line Placement RESULT: Chest Portable Chest Portable Reason: Line Placement; R IJ COMPARISON: 08/29/2020 FINDINGS: LINES AND TUBES: Central venous catheter tip in good position in the SVC. LUNGS AND PLEURA: Clear lungs. Normal pulmonary vascularity. No pleural effusion. No pneumothorax. HEART, MEDIASTINUM AND AURELIO: Heart is normal in size. Normal upper mediastinal and hilar contour. BONES AND SOFT TISSUES: No acute abnormality. IMPRESSION: No acute abnormality. WSN: [id number] Ordering Physician: Jez Raya Dictated By: Bryant Devries MD Dictated Date/Time: 08/30/20 4:38 pm Reviewed By: Bryant Devries MD Signed By: Bryant Devries MD Signed Date/Time: 08/30/20 4:38 pm Transcribed By: JEANETTE Transcribed Date/Time: 08/30/20 4:37 pm * Exam Date Time Procedure Performing Provider Status 08/29/20 2:09 PM Pelvis 1 or 2 Views Tessa Reza [facility] (Verified) Notes: (Pelvis 1 or 2 Views) Reason For Exam: Decreased ROM RESULT: Pelvis 1 or 2 Views Pelvis 1 or 2 Views Reason: Decreased ROM; Clinical Question(s): Other: COMPARISON: None. FINDINGS: The study is limited due to exclusion of the inferior aspect of the pelvis. The femoral heads are normally aligned with the acetabula. No definite fractures are seen. Osteophyte formation within the lumbar spine is noted. There are enthesophytes arising from the iliac crests. IMPRESSION: Limited study. No acute osseous abnormalities are seen. WSN: [id number] Ordering Physician: Dena Ortega Dictated By: Paulina Liu MD Dictated Date/Time: 08/29/20 2:14 pm Reviewed By: Paulina Liu MD Signed By: Paulina Liu MD Signed Date/Time: 08/29/20 2:14 pm Transcribed By: JEANETTE Transcribed Date/Time: 08/29/20 2:13 pm * Exam Date Time Procedure Performing Provider Status 08/29/20 2:09 PM Chest Portable Chelsea RezaDarrel Land ( Verified) Notes: (Chest Portable) Reason For Exam: Other: RESULT: Chest Portable Examination: Portable chest performed on 08/29/2020. History: Trauma. Findings: A frontal view of the chest is submitted without comparison. Portions of the left thorax are excluded from the radiograph. The cardiac and mediastinal silhouettes are within normal limits. The lungs are clear. Fractures ofthe left fifth, sixth, seventh, and possibly eighth ribs are noted. The right humeral head is high riding, which may be secondary to chronic rotator cuff injury. IMPRESSION: There is no acute cardiopulmonary disease. Left rib fractures as noted. WSN: [id number] Ordering Physician: Dena Ortega Dictated By: Paulina Liu MD Dictated Date/Time: 08/29/20 2:12 pm Reviewed By: Paulina Liu MD Signed By: Paulina Liu MD Signed Date/Time: 08/29/20 2:12 pm Transcribed By: JEANETTE Transcribed Date/Time: 08/29/20 2:11 pm Vital Signs Most recent to oldest [Reference Range]: 1 2 3 Height 179 cm (08/29/20 6:00 PM) Weight 109.4 kg (09/06/20 9:48 AM) 112.8 kg (09/04/20 5:59 AM) 95.8 kg (08/29/20 6:35 PM) Oxygen Saturation [94-100 %] 98 % (09/09/20 9:11 AM) 100 % (09/09/20 8:00 AM) 99 % (09/09/20 6:00 AM) Pulse Rate [55-90 bpm] 64 bpm (09/09/20 8:31 AM) 58 bpm (09/08/20 9:00 PM) 54 bpm *L* (09/08/20 2:27 PM) Blood Pressure [90-138/55-84 mm Hg] 100/44mm Hg (09/09/20 9:11 AM) 97/50mm Hg (09/09/20 8:31 AM) 97/50mm Hg (09/09/20 8:00 AM) Respiratory Rate [16-30 br/min] 19 br/min (09/09/20 9:11 AM) 20 br/min (09/09/20 8:31 AM) 15 br/min *L* (09/09/20 8:00 AM) Temperature [96.8-100.4 DegF] 97.2 DegF (09/09/20 7:00 AM) 98.0 DegF (09/09/20 4:00 AM) 98.5 DegF (09/09/20 12:00 AM) Liters per Minute 2 L/min (09/07/20 6:00 AM) 2 L/min (09/07/20 5:00 AM) 2 L/min (09/07/20 4:00 AM) Mode of Delivery (Oxygen) Room air (09/09/20 9:11 AM) Room air (09/09/20 8:00 AM) Room air (09/09/20 4:00 AM) Blood pressure sites Arm, left (09/08/20 8:00 PM) Arm, left (09/08/20 6:00 PM) Arm, left (09/08/20 4:00 PM) Temperature Route Temporal (09/09/20 7:00 AM) Temporal (09/09/20 4:00 AM) Temporal (09/09/20 12:00 AM) Dry Weight 95.8 kg (08/29/20 6:00 PM) Weight Obtained Via Bed scale (09/06/20 9:48 AM) Bed scale (09/04/20 5:59 AM) Bed scale (08/29/20 6:35 PM) Dry Weight Obtained Via Bed scale (08/29/20 6:00 PM)
--- OUTSIDE RECORDS SUMMARY | 2023-06-07 22:03 | XMS_ITS | Continuity of Care Document ---
Author Name Unknown Organization [facility] Address [address] [place] [address]- Care Team Providers Care Interstate Bus Driver Name Role Phone Aba Linares DO Marlen Primary Care Physician Encounter [facility] Date(s): 01/05/22 - 02/04/22 [facility] [address] [place] [id number]- Allergies, Adverse Reactions, Alerts No Known Allergies [...] 09/17/21 16:22:00 EDT, Route to Pharmacy Electronically, [facility]/pharmacy #[id number], Partial fill upon patientrequest if the prescription [...] Refills, Maintenance, 08/20/21 15:56:00 EDT, Suppository, [facility]/pharmacy #[id number], 180.3, cm, 08/12/21 7:56:00 EDT, Height, [...] Maintenance, 09/17/21 16:24:00 EDT, REC Powder, [facility]/pharmacy #[id number], Partial fill upon patient request if [...] Date: 09/09/20 Status: Ordered Please provide 28/11 LIFE INSURANCE SALESPERSON care and weekly VNA visits for medication management. Please provide 28/11 LIFE INSURANCE SALESPERSON care and weekly VNA visits for medication [...] 05/27/22 17:03:00 EST, 01/27/22 17:03:00 EDT, Tablet, [facility]/pharmacy #[id number], 180.3, cm, 01/27/22 15:54:00 EDT, Height, [...] Personnel Name: Aba Linares DO Address: Address: [address] [place] [address] Internal Medicine [place], [place] [address]
--- OUTSIDE RECORDS SUMMARY | 2023-06-07 22:03 | XMS_ITS | Continuity of Care Document ---
Author Name Unknown Organization [facility] Address [address] [place], [place] [address]juon hanks, [address] [place] [address]- Care Team Providers Care Spout Liner Name Role Phone Not on Staff, PCP Primary Care Physician Unavail able Encounter [facility] [place] Date(s): 09/01/20 - 10/01/20 [facility] [address] [place] [address] Drive, [address] [place], [place] [address] Allergies, Adverse Reactions, Alerts Substance Reaction Severity [...]
--- OUTSIDE RECORDS SUMMARY | 2023-06-07 22:03 | XMS_ITS | Continuity of Care Document ---
Author Name Unknown Organization [facility] Raymond lalito Address [address] [place] [address] [address] [place] [address]- Care Team Providers Care Oil Spraying Machine Operator Name Role Phone Aba Linares DO Primary Care Physician Encounter [facility] [place] Date(s): 11/03/22 - 12/03/22 [facility] [address] [place], [place] [address] Allergies, Adverse Reactions, Alerts No [...] 05/26/22 15:47:00 EST, Route to Pharmacy Electronically, [facility]/pharmacy #[id number], Partial fill upon patient request if the prescription is for a schedule II opi... Start Date: 05/26/22 Status: Ordered baclofen 10 mg oral tablet 10 mg, 1, tablet, By Mouth, 3 times a day, # 270 tablet, Refills 1, Tot. Refills 1, Maintenance, 06/10/22 15:49:00 EST, Route to Pharmacy Electronically, [facility], 180.3, cm, 05/26/22 [...] 11 Refills, Maintenance, 02/10/22 14:22:00 EDT, Capsule, [facility]/pharmacy #[id number], \, 180.3, cm, 01/27/22 15:54:00 [...] 11 Refills, Maintenance, 08/20/21 15:56:00 EDT, Suppository, [facility]/pharmacy #[id number], 180.3, cm, 08/12/21 7:56:00 EDT, [...] Refills, Maintenance, 09/17/21 16:24:00 EDT, REC Powder, [facility]/pharmacy #[id number], Partial fill upon patient request [...] Date: 09/09/20 Status: Ordered Please provide 24/ POWERSAW SUPERVISOR care and weekly VNA visits for medication management. Please provide 24/ POWERSAW SUPERVISOR care and weekly VNA visits for medication [...] 6 Refills, Maintenance, 08/21/21 7:56:00 EDT, Ointment, [facility]/pharmacy #[id number], Partial fill upon patient request if the prescription is for a schedule II opioid drug., Topical... Start Date: 08/21/21 Status: Ordered Problem List Condition Confirmation Course Effective Dates Status Health St atus Informant Lower extremity edema Confirmed Active Obese class II Confirmed Active Patient Care team information Care Team Personnel Name: Danny Whittaker RN Position: [facility] ED RN W/OE and Tasks Member Role: Primary Care Nurse Name: Aba Linares DO Position: Reference Physician Member Role: PCP Address: Address: [address] [place] [address] Internal Medicine [place], [place] [address] Name: Tesha Kirkpatrick RN Position: [facility] RN Member Role: Primary Care Nurse Name: Vera Patricia RN Position: [facility] AMB Nurse Member Role: Primary Care Nurse Name: Pau Mills RN Position: [facility] SURINDER Nurse Member Role: Primary Care Nurse Name: Ernesto THURSTON, Genevieve Position: [facility] RN Member Role: Primary Care Nurse Care Team Related Persons Name: CIRO TORREZ Address: [address] [address] Name: FARNAZ HANNAH
--- OUTSIDE RECORDS SUMMARY | 2023-06-07 22:03 | XMS_ITS | Continuity of Care Document ---
Author Name Unknown Organization [facility] Address [address] [place] [address]- Care Team Providers Care Housekeeping Lead Name Role Phone Aba Linares DO Marlen Primary Care Physician Encounter [facility] [place] Date(s): 08/04/22 - 09/03/[address] [address] Attending Physician: Sumaya Rod Admitting Physician: AdmtrSumaya [...] 05/26/22 15:47:00 EST, Route to Pharmacy Electronically, [facility]/pharmacy #[id number], Partial fill upon patient request if the prescription is for a schedule II opi... Start Date: 05/26/22 Status: Ordered baclofen 10 mg oral tablet 10 mg, 1, tablet, By Mouth, 3 times a day, # 270 tablet, Refills 1, Tot. Refills 1, Maintenance, 06/10/22 15:49:00 EST, Route to Pharmacy Electronically, [facility], 180.3, cm, 05/26/22 [...] 11 Refills, Maintenance, 02/10/22 14:22:00 EDT, Capsule, [facility]/pharmacy #[id number], \, 180.3, cm, 01/27/22 15:54:00 EDT, [...] Refills, Maintenance, 08/20/21 15:56:00 EDT, Suppository, [facility]/pharmacy #[id number], 180.3, cm, 08/12/21 7:56:00 EDT, Height, [...] Maintenance, 09/17/21 16:24:00 EDT, REC Powder, [facility]/pharmacy #[id number], Partial fill upon patient request if [...] Date: 09/09/20 Status: Ordered Please provide 24/7 SOLID GLASS ROD DOWEL MACHINE OPERATOR care and weekly VNA visits for medication management. Please provide 24/7 SOLID GLASS ROD DOWEL MACHINE OPERATOR care and weekly VNA visits for [...] Team Personnel Name: Danny Whittaker RN Position: [facility] ED RN W/OE and Tasks Member Role: Primary Care Nurse Name: Aba Linares DO Position: Reference Physician Member Role: PCP Address: Address: [address] [place] [address] Internal Medicine [address] Name: Tesha Kirkpatrick RN Position: [facility] RN Member Role: Primary Care Nurse Name: Vera Patricia RN Position: [facility] RN Member Role: Primary Care Nurse Name: Pau Mills RN Position: [facility] SURINDER Nurse Member Role: Primary Care Nurse Name: Genevieve Orozco RN Position: [facility] RN Member Role: Primary Care Nurse Care Team Related Persons Name: CIRO TORREZ Address: home [address] [place] [address] Name: PAULA WALLIS Address: [place] [address]
--- OUTSIDE RECORDS SUMMARY | 2023-06-07 22:03 | XMS_ITS | Continuity of Care Document ---
Author Name Unknown Organization [facility] Physical Tn dicine and Rehabilitation Address [address] [place] [address]- Care Team Providers Care Certified Bench Jeweler Technician Name Role Phone Aba Linares DO Marlen Primary Care Physician [phone] Encounter [facility] Date(s): 02/10/22 - 03/12/22 [facility] Physical Medicine and Rehabilitation [address] [place] [address]- Allergies, Adverse Reactions, Alerts No Known Allergies [...] 09/17/21 16:22:00 EDT, Route to Pharmacy Electronically, [facility]/pharmacy #[id number], Partial fill upon patientrequest if the prescription [...] 11 Refills, Maintenance, 02/10/22 14:22:00 EDT, Capsule, [facility]/pharmacy #[id number], \, 180.3, cm, 01/27/22 [...] 11 Refills, Maintenance, 08/20/21 15:56:00 EDT, Suppository, [facility]/pharmacy #[id number], 180.3, cm, 08/12/21 7:56:00 [...] Refills, Maintenance, 09/17/21 16:24:00 EDT, REC Powder, [facility]/pharmacy #[id number], Partial fill upon patient [...] Date: 09/09/20 Status: Ordered Please provide 28/11 POST MANAGER care and weekly VNA visits for medication management. Please provide 28/11 POST MANAGER care and weekly VNA visits for medication [...] 05/27/22 17:03:00 EST, 01/27/22 17:03:00 EDT, Tablet, [facility]/pharmacy #[id number], 180.3, cm, 01/27/22 15:54:00 EDT, Height, [...] 6 Refills, Maintenance, 08/21/21 7:56:00 EDT, Ointment, [facility]/pharmacy #[id number], Partial fill upon patient request if the prescription is for a schedule II opioid drug., Topical... Start Date: 08/21/21 Status: Ordered Problem List Condition Confirmation Course Effective Dates Status [facility] atus Informant Lower extremity edema Confirmed Active Patient Care team information Personnel Name: Aba Linares DO Address: Address: [address] [place] [address] Internal Medicine [place], [place] [address]
--- OUTSIDE RECORDS SUMMARY | 2023-06-07 22:03 | XMS_ITS | Continuity of Care Document ---
Author Name Unknown Organization [facility] ter Address [address] [place] [address] Care Team Providers Care Blow Mold Operator Name Role Phone Not on Staff, PCP Primary Care Physician Unavail able [place] [facility] Date(s): 09/28/20 - 10/01/[address] [address] Discharge Disposition: Disch/Trans to IP Rehab or unit w/in Hos Attending Physician: Dre Alexandre MD Admitting Physician: Dre Alexandre MD Referring Physician: Dre Alexandre MD Allergies, Adverse Reactions, [...] baclofen 10 mg oral tablet 10 mg, Tablet, By Mouth, 10/01/20 15:00:00 EDT Start Date: 10/01/20 Stop Date: 10/01/20 Status: Completed baclofen 10 mg oral tablet 10 mg, 1, tablet, By Mouth, 3 times a day, Refills 0, Maintenance, 09/09/20 7:49:00 EDT Start Date: 09/09/20 Status: Ordered bisacodyl 10 mg rectal suppository 1 supp = 10 mg, Rectally, Every 48 hours, 0 Refills, Maintenance, 09/09/20 7:49:00 EDT, Suppository Start Date: 09/09/20 Status: Ordered gabapentin 300 mg oral capsule 300 mg, Capsule, By Mouth, 10/01/20 9:00:00 EDT Start Date: 10/01/20 Stop Date: 10/01/20 Status: Completed gabapentin 300 mg oral capsule 300 mg, Capsule, By Mouth, 10/01/20 15:00:00 EDT Start Date: 10/01/20 Stop Date: 10/01/20 Status: Completed gabapentin 300 mg oral capsule 300 mg, [...] mg oral tablet, extended release 50 mg, XL Tablet, By Mouth, 10/01/20 9:00:00 EDT Start Date: 10/01/20 Stop Date: 10/01/20 Status: Completed metoprolol 50 mg oral tablet, extended release [...] 7:49:00 EDT Start Date: 09/09/20 Status: Ordered Results Radiology Reports * Exam Date Time Procedure Performing Provider Status 09/28/20 5:34 PM C-Arm < 1 Hour Keyla Martinez; Auth ( Verified) Notes: (C-Arm < 1 Hour) Reason For Exam: decompression cerival spine RESULT: C-Arm < 1 Hour Spine Single View, C-Arm < 1 Hour INDICATION/CLINICAL QUESTION: Cervical spine decompression. Special Instructions: ft 3 secs, tt 15 mins. COMPARISON: MRI 09/01/2020. TECHNIQUE: Fluoroscopy support was provided. There was no radiologist in attendance. Fluoroscopy time: 3 seconds. Technologist time: 15 minutes. Exposure: 0.5 mGy FINDINGS: 2 lateral intraoperative fluoroscopic spot views. Please see procedural report for further information. IMPRESSION: See above. WSN: [id number] Ordering Physician: Dre Alexandre Dictated By: Pavan Anderson MD Dictated Date/Time: 09/28/20 7:43 pm Reviewed By: Pavan Anderson MD Signed By: Pavan Anderson MD Signed Date/Time: 09/28/20 7:43 pm Transcribed By: JEANETTE Transcribed Date/Time: 09/28/20 7:41 pm * Exam Date Time Procedure Performing Provider Status 09/28/20 5:34 PM Spine Single View Mari Martinez (Verified) Notes: (Spine Single View) Reason For Exam: decompression cevical spine RESULT: Spine Single View Spine Single View, C-Arm < 1 Hour INDICATION/CLINICAL QUESTION: Cervical spine decompression. Special Instructions: ft 3 secs, tt 15 mins. COMPARISON: MRI 09/01/2020. TECHNIQUE: Fluoroscopy support was provided. There was no radiologist in attendance. Fluoroscopy time: 3 seconds. Technologist time: 15 minutes. Exposure: 0.5 mGy FINDINGS: 2 lateral intraoperative fluoroscopic spot views. Please see procedural report for further information. IMPRESSION: See above. WSN: [id number] Ordering Physician: Dre Alexandre Dictated By: Pavan Anderson MD Dictated Date/Time: 09/28/20 7:43 pm Reviewed By: Pavan Anderson MD Signed By: Pavan Anderson MD Signed Date/Time: 09/28/20 7:43 pm Transcribed By: JEANETTE Transcribed Date/Time: 09/28/20 7:41 pm Vital Signs Most recent to oldest [Reference Range]: 1 2 3 Height 180.3 cm (10/01/20 7:08 AM) 180.3 cm (10/01/20 3:35 AM) 180.3 cm (09/30/20 11:35 PM) Weight 101 kg (09/28/20 7:58 PM) 100.5 kg (09/28/20 1:39 PM) 100.5 kg (09/23/20 12:08 PM) Oxygen Saturation [94-100 %] 94 % (10/01/20 7:08 AM) 97 % (10/01/20 3:35 AM) 97 % (09/30/20 11:35 PM) Pulse Rate [55-90 bpm] 70 bpm (10/01/20 8:08 AM) 70 bpm (10/01/20 7:08 AM) 67 bpm (10/01/20 3:35 AM) Body Mass Index [18.5-24.99] 30.92 *>HHI* (09/28/20 1:39 PM) 30.92 *>HHI* (09/23/20 12:08 PM) Blood Pressure [90-138/55-84 mm Hg] 131/64mm Hg (10/01/20 8:08 AM) 131/64mm Hg (10/01/20 7:08 AM) 148/61mm Hg *H* (10/01/20 3:35 AM) Respiratory Rate [16-30 br/min] 18 br/min (10/01/20 2:28 PM) 16 br/min (10/01/20 2:28 PM) 16 br/min (10/01/20 9:08 AM) Temperature [96.8-100.4 DegF] 98.6 DegF (10/01/20 7:08 AM) 98.2 DegF (10/01/20 3:35 AM) 98.9 DegF (09/30/20 11:35 PM) Liters per Minute 4 L/min (09/28/20 5:00 PM) Mode of Delivery (Oxygen) Room air (10/01/20 7:08 AM) Room air (10/01/20 3:35 AM) Room air (09/30/20 11:35 PM) Blood pressure sites Arm, left (10/01/20 7:08 AM) Arm, left (10/01/20 3:35 AM) Arm, left (09/30/20 11:35 PM) Temperature Route Oral (10/01/20 7:08 AM) Oral (10/01/20 3:35 AM) Oral (09/30/20 11:35 PM) Dry Weight 100.5 kg (09/23/20 12:08 PM) Weight Obtained Via Bed scale (09/28/20 7:58 PM) Rehab records (09/23/20 12:08 PM) Dry Weight Obtained Via Rehab records (09/23/20 12:08 PM)
--- OUTSIDE RECORDS SUMMARY | 2023-06-07 22:03 | XMS_ITS | Continuity of Care Document ---
Author Name Unknown Organization [facility] Neurosur[facility] y Address [address] [place], [place] [address]juno hanks, [address] [place] [address]- Care Team Providers Care Benefits Sales Consultant Name Role Phone Not on Staff, PCP Primary Care Physician Unavail able [place] [facility] Date(s): 09/04/20 - 11/28/20 [facility] Neurosurgery [address] [place] [address] Drive, [address] [place], [place] [address] Attending Physician: Dre Alexandre MD Referring Physician: Not on Staff, Referring MD Allergies, Adverse Reactions, Alerts Substance Reaction [...]
--- OUTSIDE RECORDS SUMMARY | 2023-06-07 22:03 | XMS_ITS | Continuity of Care Document ---
Author Name Unknown Organization [facility] Physical Ct dicine and Rehabilitation Address [address] [place] [address]- Care Team Providers Care Appraiser Timber Name Role Phone Milagros CHUNG Aba Gee Primary Care Physician [phone] Encounter [facility] Date(s): 07/05/22 - 08/04/22 [facility] Physical Medicine and Rehabilitation [address] [place] [address] Allergies, Adverse Reactions, Alerts No Known Allergies [...] 05/26/22 15:47:00 EST, Route to Pharmacy Electronically, [facility]/pharmacy #[id number], Partial fill upon patient request if the [...] 11 Refills, Maintenance, 02/10/22 14:22:00 EDT, Capsule, [facility]/pharmacy #[id number], \, 180.3, cm, 01/27/22 15:54:00 [...] 11 Refills, Maintenance, 08/20/21 15:56:00 EDT, Suppository, [facility]/pharmacy #[id number], 180.3, cm, 08/12/21 7:56:00 [...] Refills, Maintenance, 09/17/21 16:24:00 EDT, REC Powder, [facility]/pharmacy #[id number], Partial fill upon patient [...] Date: 09/09/20 Status: Ordered Please provide 24/7 MOTOR RUNNER care and weekly VNA visits for medication management. Please provide 24/7 MOTOR RUNNER care and weekly VNA visits for medication [...] Team Personnel Name: Danny Whittaker RN Position: [facility] ED RN W/OE and Tasks Member Role: Primary Care Nurse Name: Aba Linares DO Position: Reference Physician Member Role: PCP Address: Address: [address] [place] [address] Internal Medicine [place], [place] [address] Name: Tesha Kirkpatrick RN Position: [facility] RN Member Role: Primary Care Nurse Name: Vera Patricia RN Position: [facility] RN Member Role: Primary Care Nurse Name: Pau Mills RN Position: [facility] SURINDER Nurse Member Role: Primary Care Nurse Name: Genevieve Orozco RN Position: [facility] RN Member Role: Primary Care Nurse Care Team Related Persons Name: CIRO TORREZ Address: home [address] [place] [address] Name: PAULA WALLIS Address: [place] [address]
--- OUTSIDE RECORDS SUMMARY | 2023-06-07 22:03 | XMS_ITS | Continuity of Care Document ---
Author Name Unknown Organization [facility]astic [facility] lalito Address [address] [place] [address] [address] [place] [address]- Care Team Providers Care Country Manager Name Role Phone Aba Linares DO Marlen Primary Care Physician [place] [facility] [place](s): 09/28/22 - 01/19/23 [facility] Plastic [address] [place], [place] [address] Attending Physician: Clare Medrano MD Allergies, Adverse Reactions, [...] Route to Pharmacy Electronically, [facility]/pharmacy #[id number], Partial fill upon patient request if the prescription is for a schedule II opi... Start Date: 05/26/22 Status: Ordered baclofen 10 mg oral tablet 10 mg, 1, tablet, By Mouth, 3 times a day, # 270 tablet, Refills 1, Tot. Refills 1, Maintenance, 01/04/23 14:53:00 EDT, Route to Pharmacy Electronically, [facility], 178, cm, 11/17/22 [...] Start Date: 09/09/20 Status: Ordered Please provide 24 HOUSEKEEPING AID care and weekly VNA visits for medication management. Please provide / HOUSEKEEPING AID care and weekly VNA visits for medication [...] 6 Refills, Maintenance, 08/21/21 7:56:00 EDT, Ointment, [facility]/pharmacy #[id number], Partial fill upon patient request if the prescription is for a schedule II opioid drug., Topical... Start Date: 08/21/21 Status: Ordered Problem List Condition Confirmation Course Effective Dates Status [facility] at Informant Presence of intrathecal baclofen pump Confirmed Active Lower extremity edema Confirmed Active Obese class II Confirmed Active Patient Care team information Care Team Personnel Name: Danny Whittaker RN Position: [facility] ED RN W/OE and Tasks Member Role: Primary Care Nurse Name: Aba Linares DO Position: Reference Physician Member Role: PCP Address: Address: [address] [place] [address] Internal Medicine [place], [place] [address] Name: Tesha Kirkpatrick RN Position: S RN Member Role: Primary Care Nurse Name: Vera Patricia RN Position: [facility] SURINDER Nurse Member Role: Primary Care Nurse Name: Genevieve Orozco RN Position: [facility] RN Member Role: Primary Care Nurse Care Team Related Persons Name: CIRO TORREZ Address: [address] [address] Name: FARNAZ HANNAH
--- OUTSIDE RECORDS SUMMARY | 2023-06-07 22:03 | XMS_ITS | Continuity of Care Document ---
Author Name Unknown Organization [facility] [place] Address [address] [place] [address]- Care Team Providers Care Director Of Personnel Name Role Phone Aba Linares DO Marlen Primary Care Physician Encounter [facility] Date(s): 03/06/23 - 04/05/23 [facility] Reconstructive Surg [address] [address] Attending Physician: Sumaya Rod Admitting Physician: Sumaya Rod Referring Physician: AdmtrSumaya Allergies, Adverse Reactions, Alerts No Known Allergies [...] 02/09/23 14:14:00 EDT, Route to Pharmacy Electronically, [facility],178, cm, 02/09/23 13:48:00 EDT, Height, 120, kg, 06... Start Date: 02/09/23 Status: Ordered baclofen 10 mg oral tablet 10 mg, 1, tablet, By Mouth, 3 times a day, # 90 tablet, Refills 0, Tot. Refills 0, Maintenance, 05/26/22 15:47:00 EST, Route to Pharmacy Electronically, [facility]/pharmacy #[id number], Partial fill upon patient request if the [...] Refills, Maintenance, 08/20/21 15:56:00 EDT, Suppository, [facility]/pharmacy #[id number], 180.3, cm, 08/12/21 7:56:00 EDT, Height, [...] Maintenance, 09/17/21 16:24:00 EDT, REC Powder, [facility]/pharmacy #[id number], Partial fill upon patient request if [...] Date: 09/09/20 Status: Ordered Please provide 28/11 SECURITY TRAINER care and weekly VNA visits for medication management. Please provide / SECURITY TRAINER care and weekly VNA visits for medication [...] Refills, Maintenance, 08/21/21 7:56:00 EDT, Ointment, [facility]/pharmacy #[id number], Partial fill upon patient request if the [...] Physician Member Role: PCP Address: Address: [address] [place] [address] Internal Medicine [place], [place] [address] Name: Tesha Kirkpatrick RN Position: [facility] RN Member Role: Primary Care Nurse Name: Vera Patricia RN Position: [facility] AMB Nurse Member Role: Primary Care Nurse Name: Genevieve Orozco RN Position: [facility] RN Member Role: Primary Care Nurse Care Team Related Persons Name: CIRO TORREZ Address: [address] [address] Name: FARNAZ HANNAH
--- OUTSIDE RECORDS SUMMARY | 2023-06-07 22:04 | XMS_ITS | Continuity of Care Document ---
Author Name Unknown Organization [facility] Address [address] [place] [address]- Care Team Providers Care Chair Pad Maker Name Role Phone Aba Linares DO Marlen Primary Care Physician [phone] [id number] Date[facility] 05/03/22 - 06/11/[address] [address] Attending Physician: Eran Garcia MD Admitting Physician: [...] 05/26/22 15:47:00 EST, Route to Pharmacy Electronically, [facility]/pharmacy #[id number], Partial fill upon patient request if the [...] 11 Refills, Maintenance, 02/10/22 14:22:00 EDT, Capsule, [facility]/pharmacy #[id number], \, 180.3, cm, 01/27/22 15:54:00 [...] 11 Refills, Maintenance, 08/20/21 15:56:00 EDT, Suppository, [facility]/pharmacy #[id number], 180.3, cm, 08/12/21 7:56:00 EDT, [...] Refills, Maintenance, 09/17/21 16:24:00 EDT, REC Powder, [facility]/pharmacy #[id number], Partial fill upon patient request [...] Date: 09/09/20 Status: Ordered Please provide 24/7 ATHLETIC AGENT care and weekly VNA visits for medication management. Please provide 24/7 ATHLETIC AGENT care and weekly VNA visits for medication [...] 6 Refills, Maintenance, 08/21/21 7:56:00 EDT, Ointment, [facility]/pharmacy #[id number], Partial fill upon patient request if the prescription is for a schedule II opioid drug., Topical... Start Date: 08/21/21 Status: Ordered Problem List Condition Confirmation Course Effective Dates [facility] Informant Lower extremity edema Confirmed Active Patient Care team information Care Team Personnel Name: Danny Whittaker RN Position: [facility] ED RN W/OE and Tasks Member Role: Primary Care Nurse Name: Aba Linares DO Position: Reference Physician Member Role: PCP Address: Address: [address] [place] [address] [place] [address]- Name: Tesha Kirkpatrick RN Position: [facility] RN Member Role: Primary Care Nurse Name: Vera Patricia RN Position: [facility] RN Member Role: Primary Care Nurse Name: Pau Mills RN Position: [facility] SURINDER Nurse Member Role: Primary Care Nurse Name: Genevieve Orozco RN Position: [facility] RN Member Role: Primary Care Nurse Care Team Related Persons Name: CIRO TORREZ Address: [address] [address]
--- OUTSIDE RECORDS SUMMARY | 2023-06-07 22:04 | XMS_ITS | Continuity of Care Document ---
Author Name Unknown Organization [facility] Address [address] [place] [address] [address], [address] [place] [address]- Care Team Providers Care Car Examiner Name Role Phone Not on Staff, PCP Primary Care Physician Unavail able Encounter [facility] Date(s): 10/29/20 - 11/28/[address], [address] [place], [place] [address] Attending Physician: Sumaya Rod Admitting Physician: Admtr, Hector8 Referring Physician: Admtr, Ar8 Allergies, Adverse Reactions, Alerts Substance Reaction Severity [...]
--- OUTSIDE RECORDS SUMMARY | 2023-06-07 22:04 | XMS_ITS | Continuity of Care Document ---
Author Name Unknown Organization [facility] Address [address] [place] [address]- Care Team Providers Care Graphic User Interface Designer Name Role Phone Aba Linares DO Primary Care Physician [id number] Date(s): 12/01/22 - 03/08/23 [facility] Physical Medicine and Rehabilitation [address] [place] [address]- Attending Physician: Radha CAMACHO, Eran Referring Physician: Aba Linares DO Allergies, Adverse [...] 02/09/23 14:14:00 EDT, Route to Pharmacy Electronically, [facility],178, cm, 02/09/23 13:48:00 EDT, Height, 120, kg, 06... Start Date: 02/09/23 Status: Ordered baclofen 10 mg oral tablet 10 mg, 1, tablet, By Mouth, 3 times a day, # 90 tablet, Refills 0, Tot. Refills 0, Maintenance, 05/26/22 15:47:00 EST, Route to Pharmacy Electronically, [facility]/pharmacy #[id number], Partial fill upon patient request if the [...] 11 Refills, Maintenance, 08/20/21 15:56:00 EDT, Suppository, [facility]/pharmacy #[id number], 180.3, cm, 08/12/21 [...] Refills, Maintenance, 09/17/21 16:24:00 EDT, REC Powder, [facility]/pharmacy #[id number], Partial fill upon [...] Start Date: 09/09/20 Status: Ordered Please provide / ORGANIC SECTION TECHNICAL LEAD care and weekly VNA visits for medication management. Please provide / ORGANIC SECTION TECHNICAL LEAD care and weekly VNA visits for medication [...] 6 Refills, Maintenance, 08/21/21 7:56:00 EDT, Ointment, [facility]/pharmacy #[id number], Partial fill upon [...] Reference Physician Member Role: PCP Address: Address: [address] [place] [address] Internal Medicine [place], [place] [address] Name: Tesha Kirkpatrick RN Position: S RN Member Role: Primary Care Nurse Name: Vera Patricia RN Position: [facility] AMB Nurse Member Role: Primary Care Nurse Name: Genevieve Orozco RN Position: [facility] RN Member Role: Primary Care Nurse Care Team Related Persons Name: CIRO TORREZ Address: [address] [address] Name: FARNAZ HANNAH
--- OUTSIDE RECORDS SUMMARY | 2023-06-07 22:04 | XMS_ITS | Continuity of Care Document ---
Author Name Unknown Organization [facility] [place] Address [address] [place] [address]- Care Team Providers Care Veneer Sheet Repairer Name Role Phone Aba Linares DO Primary Care Physician [phone] Encounter [facility] Date(s): 08/29/22 - 09/28/22 [facility] [place] [address] [place], [place] [address] Attending Physician: Sumaya Rod Admitting [...] 05/26/22 15:47:00 EST, Route to Pharmacy Electronically, [facility]/pharmacy #[id number], Partial fill upon patient request if the [...] 11 Refills, Maintenance, 02/10/22 14:22:00 EDT, Capsule, [facility]/pharmacy #[id number], \, 180.3, cm, [...] Date: 09/09/20 Status: Ordered Please provide 24/7 MATERIALS DIRECTOR care and weekly VNA visits for medication management. Please provide 24/7 MATERIALS DIRECTOR care and weekly VNA visits for medication [...] 7:56:00 EDT, Ointment, [facility]/pharmacy #[id number], Partial fill upon patient request if the prescription is for a schedule II opioid drug., Topical... Start Date: 08/21/21 Status: Ordered Problem List Condition Confirmation Course Effective Dates Status [facility] Informant Lower extremity edema Confirmed Active Patient Care team information Care Team Personnel Name: Danny Whittaker RN Position: [facility] ED RN W/OE and Tasks Member Role: Primary Care Nurse Name: Aba Linares DO Position: Reference Physician Member Role: PCP Address: Address: [address] [place] [address] Internal Medicine [place], [place] [address] Name: Tesha Kirkpatrick RN Position: [facility] RN Member Role: Primary Care Nurse Name: Vera Patricia RN Position: [facility] AMB Nurse Member Role: Primary Care Nurse Name: Pau Mills RN Position: [facility] AMB Nurse Member Role: Primary Care Nurse Name: Genevieve Orozco RN Position: [facility] RN Member Role: Primary Care Nurse Care Team Related Persons Name: CIRO TORREZ Address: home [address] [address] Name: PAULA WALLIS Address: [place] [address]
--- OUTSIDE RECORDS SUMMARY | 2023-06-07 22:04 | XMS_ITS | Continuity of Care Document ---
Author Name Unknown Organization [facility] Address [address] [place], [place] [address]juno hanks, [address] [place] [address]- Care Team Providers Care Middleware Consultant Name Role Phone Not on Staff, PCP Primary Care Physician Unavail able Encounter [facility] Date(s): 04/06/21 - 05/06/21 [facility] Neurosurgery [address] [place] [address] Drive, [address] [place], [place] [address] Allergies, Adverse Reactions, Alerts Substance Reaction Severity [...]
--- OUTSIDE RECORDS SUMMARY | 2023-06-07 22:04 | XMS_ITS | Continuity of Care Document ---
Author Name Unknown Organization [facility] Address [address] [place] [address]- Care Team Providers Care Podiatry Teacher Name Role Phone Milagros Aba CHUNG Primary Care Physician [phone] [place] [facility] [place](s[place] 01/27/22 - 02/03/22 [facility] [address] [place] [address]- Attending Physician: Radha CAMACHO, Eran Referring Physician: [...] 09/17/21 16:22:00 EDT, Route to Pharmacy Electronically, [facility]/pharmacy #[id number], Partial fill upon patientrequest if the prescription [...] Refills, Maintenance, 08/20/21 15:56:00 EDT, Suppository, [facility]/pharmacy #[id number], 180.3, cm, 08/12/21 7:56:00 [...] Maintenance, 09/17/21 16:24:00 EDT, REC Powder, [facility]/pharmacy #[id number], Partial fill upon patient [...] Date: 09/09/20 Status: Ordered Please provide 28/11 ASSEMBLER HYDRAULIC BACKHOE care and weekly VNA visits for medication management. Please provide 28/11 ASSEMBLER HYDRAULIC BACKHOE care and weekly VNA visits for medication [...] 05/27/22 17:03:00 EST, 01/27/22 17:03:00 EDT, Tablet, [facility]/pharmacy #[id number], 180.3, cm, 01/27/22 15:54:00 [...] Refills, Maintenance, 08/21/21 7:56:00 EDT, Ointment, [id number], Partial fill upon patient request if the prescription is for a schedule II opioid drug., Topical... Start Date: 08/21/21 Status: Ordered Problem List Condition Confirmation Course Effective Dates Status Health St atus Informant Lower extremity edema Confirmed Active Vital Signs Most recent to oldest [Reference Range]: 1 Height 180.3 cm (01/27/22 3:54 PM) Mode of Delivery (Oxygen) Room air (01/27/22 3:54 PM) Patient Care team information Personnel Name: Aba Linares DO Address: Address: [address] [place] [address] Internal Medicine [place], [place] [address]
--- OUTSIDE RECORDS SUMMARY | 2023-06-07 22:04 | XMS_ITS | Continuity of Care Document ---
Author Name Unknown Organization [facility] l[facility]ito Address [address] [place] [address] [address] [place] [address]- Care Team Providers Care Copper Plate Lithographer Name Role Phone Aba Linares DO Primary Care Physician [place] [facility] [place] 09/26/22 - 10/26/22 [facility] [address] [place], [place] [address] Allergies, Adverse Reactions, Alerts No Known [...] 15:47:00 EST, Route to Pharmacy Electronically, [facility]/pharmacy #[id number], Partial fill upon patient request if the prescription is for a schedule II opi... Start Date: 05/26/22 Status: Ordered baclofen 10 mg oral tablet 10 mg, 1, tablet, By Mouth, 3 times a day, # 270 tablet, Refills 1, Tot. Refills 1, Maintenance, 06/10/22 15:49:00 EST, Route to Pharmacy Electronically, [facility], 180.3, cm, 05/26/22 [...] Refills, Maintenance, 02/10/22 14:22:00 EDT, Capsule, [facility]/pharmacy #[id number], \, 180.3, cm, 01/27/22 15:54:00 EDT, [...] 11 Refills, Maintenance, 08/20/21 15:56:00 EDT, Suppository, [id number], 180.3, cm, 08/12/21 7:56:00 EDT, Height, [...] Maintenance, 09/17/21 16:24:00 EDT, REC Powder, [facility]/pharmacy #[id number], Partial fill upon patient request if [...] Date: 09/09/20 Status: Ordered Please provide 24/7 DIGITAL CONTENT PRODUCER care and weekly VNA visits for medication management. Please provide 24/7 DIGITAL CONTENT PRODUCER care and weekly VNA visits for medication [...] Refills, Maintenance, 08/21/21 7:56:00 EDT, Ointment, [facility]/pharmacy #[id number], Partial fill upon patient request if [...] Physician Member Role: PCP Address: Address: [address] [place] [address] Internal Medicine [place], [place] [address] Name: Tesha Kirkpatrick RN Position: [facility] RN Member Role: Primary Care Nurse Name: Vera Patricia RN Position: [facility] AMB Nurse Member Role: Primary Care Nurse Name: Pau Mills RN Position: [facility] AMB Nurse Member Role: Primary Care Nurse Name: Genevieve Orozco RN Position: [facility] RN Member Role: Primary Care Nurse Care Team Related Persons Name: CIRO TORREZ Address: home [address] [place] [address] Name: KADI, PAULA Address: home [place] [address]
--- OUTSIDE RECORDS SUMMARY | 2023-06-07 22:04 | XMS_ITS | Continuity of Care Document ---
Author Name Unknown Organization [facility] Address [address] [place] [address], [address] [place] [address]- Care Team Providers Care Sheep Farmer Name Role Phone Aba Linares DO Marlen Primary Care Physician Encounter [facility] [place] Date(s): 07/27/21 - 08/26/[address], [address] [place], [place] [address] Attending Physician: Sumaya Rod Admitting Physician: Admtr, Sumaya Referring Physician: Admtr, Ar8 Allergies, Adverse Reactions, [...] 11 Refills, Maintenance, 08/20/21 15:56:00 EDT, Suppository, [facility]/pharmacy #[id number], 180.3, cm, 08/12/21 7:56:00 [...] opioid drug. Start Date: 08/12/21 Status: Ordered Multivitamin With Minerals 1 tablet, [...] 6 Refills, Maintenance, 08/21/21 7:56:00 EDT, Ointment, [facility]/pharmacy #[id number], Partial fill upon patient request if the prescription is for a schedule II opioid drug., Topical... Start Date: 08/21/21 Status: Ordered
--- OUTSIDE RECORDS SUMMARY | 2023-06-07 22:04 | XMS_ITS | Continuity of Care Document ---
Author Name Unknown Organization [facility] ter Address [address] [place] [address]- Care Team Providers Care Bank And Savings Securities Trader Name Role Phone Not on Staff, PCP Primary Care Physician Unavail able Encounter [facility] [place] Date(s): 09/03/20 - 10/16/[address] [address]- Attending Physician: Dre Alexandre MD Admitting Physician: [...]
--- OUTSIDE RECORDS SUMMARY | 2023-06-07 22:04 | XMS_ITS | Continuity of Care Document ---
Author Name Unknown Organization [facility]icine [facility] Rehabilitation Address [address] [place] [address]- Care Team Providers Care Automobile Club Information Clerk Name Role Phone Milagros CHUNG Aba Gee Primary Care Physician Encounter [facility] [place] Date(s): 06/13/22 - 07/13/22 [facility] [address] [place] [address]- Allergies, Adverse Reactions, Alerts No Known Allergies [...] 05/26/22 15:47:00 EST, Route to Pharmacy Electronically, [facility]/pharmacy #[id number], Partial fill upon patient request if the [...] 11 Refills, Maintenance, 02/10/22 14:22:00 EDT, Capsule, [facility]/pharmacy #[id number], \, 180.3, cm, 01/27/22 15:54:00 [...] 11 Refills, Maintenance, 08/20/21 15:56:00 EDT, Suppository, [facility]/pharmacy #[id number], 180.3, cm, 08/12/21 7:56:00 EDT, [...] Refills, Maintenance, 09/17/21 16:24:00 EDT, REC Powder, [facility]/pharmacy #[id number], Partial fill upon patient request [...] Date: 09/09/20 Status: Ordered Please provide 24/7 TRACTOR DRIVER care and weekly VNA visits for medication management. Please provide 24/7 TRACTOR DRIVER care and weekly VNA visits for medication [...] Name: Danny Whittaker RN Position: [facility] ED RN W/OE and Tasks Member Role: Primary Care Nurse Name: Aba Linares DO Position: Reference Physician Member Role: PCP Address: Address: [address] [place] [address] Internal Medicine [place], [place] [address] Name: Tesha Kirkpatrick RN Position: [facility] RN Member Role: Primary Care Nurse Name: Vera Patricia RN Position: [facility] RN Member Role: Primary Care Nurse Name: Pau Mills RN Position: [facility] SURINDER Nurse Member Role: Primary Care Nurse Name: Genevieve Orozco RN Position: [facility] RN Member Role: Primary Care Nurse Care Team Related Persons Name: CIRO TORREZ Address: home [address] [place] [address] Name: PAULA WALLIS Address: [place] [address]
--- OUTSIDE RECORDS SUMMARY | 2023-06-07 22:04 | XMS_ITS | Continuity of Care Document ---
Author Name Unknown Organization [facility] Physical Tx dicine and Rehabilitation Address [address] [place] [address]- Care Team Providers Care Plaster Caster Name Role Phone Aba Linares DO Marlen Primary Care Physician [place] [facility] [place] 01/04/23 - 02/03/23 [facility] [address] [place] [address]- Allergies, Adverse Reactions, Alerts No Known Allergies [...] to Pharmacy Electronically, [facility]/pharmacy #[id number], Partial fill upon patient request if the prescription is for a schedule II opi... Start Date: 05/26/22 Status: Ordered baclofen 10 mg oral tablet 10 mg, 1, tablet, By Mouth, 3 times a day, # 270 tablet, Refills 1, Tot. Refills 1, Maintenance, 01/04/23 14:53:00 EDT, Route to Pharmacy Electronically, [facility], 178, cm, 11/17/22 [...] 11 Refills, Maintenance, 01/04/23 14:53:00 EDT, Capsule, [facility], \, 178, cm, [...] Date: 09/09/20 Status: Ordered Please provide 24/7 LEAD MOBILE DEVELOPER care and weekly VNA visits for medication management. Please provide 28/11 LEAD MOBILE DEVELOPER care and weekly VNA visits for [...] List Condition Confirmation Course Effective Dates Status [facility] atus Informant Presence of intrathecal baclofen pump Confirmed Active Lower extremity edema Confirmed Active Obese class II Confirmed Active Patient Care team information Care Team Personnel Name: Danny Whittaker RN Position: [facility] ED RN W/OE and Tasks Member Role: Primary Care Nurse Name: bAa Linares DO Position: Reference Physician Member Role: PCP Address: Address: [address] [place] [address] Internal Medicine [place], [place] [address] Name: Tesha Kirkpatrick RN Position: [facility] RN Member Role: Primary Care Nurse Name: Vera Patricia RN Position: [facility] Nurse Member Role: Primary Care Nurse Name: Ernesto THURSTON, Genevieev Position: [facility] RN Member Role: Primary Care Nurse Care Team Related Persons Name: CIRO TORREZ Address: [address] [address] Name: FARNAZ HANNAH
--- OUTSIDE RECORDS SUMMARY | 2023-06-07 22:04 | XMS_ITS | Continuity of Care Document ---
Author Name Unknown Organization [facility] Address [address] [place] [address] [address], [address] [place] [address]- Care Team Providers Care Cloth Bleaching Supervisor Name Role Phone Not on Staff, PCP Primary Care Physician Unavail able Encounter [facility] [place] Date(s): 09/14/20 - 10/14/20 [facility] [address] [place] [address] Drive, [address] [place], [place] [address] Allergies, Adverse Reactions, Alerts Substance Reaction [...]
--- OUTSIDE RECORDS SUMMARY | 2023-06-07 22:04 | XMS_ITS | Continuity of Care Document ---
Author Name Unknown Organization [facility] ter Address [address] [place] [address]- Care Team Providers Care Chief I Dispatcher Name Role Phone Aba Linares DO Marlen Primary Care Physician [phone] Encounter [facility] [place] Date(s): 10/26/22 - 10/26/[address] [address]- Discharge Disposition: A-D/C Home Attending Physician: aJnak Brooks MD Admitting Physician: Janak Brooks MD Referring Physician: Not on Staff, Referring [...] 05/26/22 15:47:00 EST, Route to Pharmacy Electronically, [facility]/pharmacy #[id number], Partial fill upon patient request if the [...] 11 Refills, Maintenance, 02/10/22 14:22:00 EDT, Capsule, [facility]/pharmacy #[id number], \, 180.3, cm, 01/27/22 [...] 11 Refills, Maintenance, 08/20/21 15:56:00 EDT, Suppository, [facility]/pharmacy #[id number], 180.3, cm, 08/12/21 7:56:00 [...] Refills, Maintenance, 09/17/21 16:24:00 EDT, REC Powder, [facility]/pharmacy #[id number], Partial fill upon patient [...] Date: 09/09/20 Status: Ordered Please provide 24/7 ASSEMBLER CAMPER care and weekly VNA visits for medication management. Please provide 24/7 ASSEMBLER CAMPER care and weekly VNA visits for medication [...] 6 Refills, Maintenance, 08/21/21 7:56:00 EDT, Ointment, [facility]/pharmacy #[id number], Partial fill upon patient request if the prescription is for a schedule II opioid drug., Topical... Start Date: 08/21/21 Status: Ordered Problem List Condition Confirmation Course Effective Dates Status Health St atus Informant Lower extremity edema Confirmed Active Obese class II Confirmed Active Vital Signs Most recent to oldest [Reference Range]: 1 2 3 Height 178 cm (10/26/22 6:50 PM) 178 cm (10/26/22 3:08 PM) Weight 120 kg (10/26/22 6:50 PM) 120 kg (10/26/22 3:08 PM) Oxygen Saturation [94-100 %] 98 % (10/26/22 6:50 PM) 98 % (10/26/22 2:47 PM) Pulse Rate [55-90 bpm] 52 bpm *L* (10/26/22 6:50 PM) 55 bpm (10/26/22 2:47 PM) Body Mass Index [18.5-24.99 kg/m2] 37.87 kg/m2 *>HHI* (10/26/22 6:50 PM) Blood Pressure [90-138/55-84 mm Hg] 101/46mm Hg (10/26/22 7:00 PM) 92/47mm Hg (10/26/22 6:50 PM) 108/47mm Hg (10/26/22 2:47 PM) Respiratory Rate [16-30 br/min] 16 br/min (10/26/22 6:50 PM) 15 br/min *L* (10/26/22 2:47 PM) Temperature [96.8-100.4 DegF] 98.3 DegF (10/26/22 6:50 PM) 98.5 DegF (10/26/22 2:47 PM) Mode of Delivery (Oxygen) Room air (10/26/22 6:50 PM) Room air (10/26/22 2:47 PM) Blood pressure sites Arm, left (10/26/22 7:00 PM) Arm, left (10/26/22 6:50 PM) Arm, left (10/26/22 2:47 PM) Temperature Route Oral (10/26/22 6:50 PM) Oral (10/26/22 2:47 PM) Dry Weight 120 kg (10/26/22 6:50 PM) 120 kg (10/26/22 3:08 PM) Weight Obtained Via Patient/family state d (10/26/22 3:08 PM) Dry Weight Obtained Via Patient/family s tated (10/26/22 3:08 PM) EKG study * Event Display: EKG Authored Date: [id number] Note * Carmelita Morrison MD: PERFORM Event Display: Patient Education Leaflets Authored Date: [id number] Abrasions ?? [id number] Abrasions Abrasions are skin scrapes. Their treatment depends on how large and deep the abrasion is. Home care You may be prescribed an antibiotic cream or ointment to apply to the wound. This helps prevent infection. Follow instructions when using this medicine. General care ??? To care for the abrasion, do the following each day for as long as directed by your healthcare provider: o If you were given a bandage, change it once a day. If your bandage sticks to the wound, soak it in warm water until it loosens. o Wash the area with soap and warm water. You may do this in a sink or under a tub faucet or shower. Rinse off the soap. Then pat the area dry witha clean towel. o If antibiotic ointment or cream was prescribed, reapply it to the wound as directed. Cover the wound with a fresh nonstick bandage. If the bandage becomes wet or dirty, change it as soon as possible. o Some antibiotic ointments or cream can cause an allergic reaction or dermatitis.This may cause redness, itching, or hives. If this occurs, stop using the ointment right away and wash off any remaining ointment. You may need to take some allergy medicine to relieve symptoms. ??? You may use acetaminophen or ibuprofen to control pain unless another pain medicine was prescribed.??Talk with your healthcare provider before using these medicines if you have chronic liver or kidneydisease, or ever had a stomach ulcer or digestive tract bleeding. Don???t use ibuprofen in childrenyounger than 6 months old. ??? Most skin wounds heal within 10 days. But an infection may occur even with treatment. So it???s important to watch the wound for signs of infection as listed below. ?? Follow-up care Follow up with your healthcare provider as advised. ?? When to get medical advice Call your healthcare provider right away if any of these occur: ??? Fever of 100.4??F (38??C) or higher, or as advised by your provider ??? Increasing pain, redness, swelling, or fluid leaking from the wound ??? Bleeding from the wound that doesn't stop after a few minutes of steady, firm pressure ??? Decreased ability to move any body part near the wound ?? Last Reviewed Date: 2021 ?? [id number] [employer]. All rights reserved. This information is not intended as a substitute for professional medical care. Always follow your healthcare professional's instructions. ?? Patient Care team information Care Team Personnel Name: Danny Whittaker RN Position: S ED RN W/OE and Tasks Member Role: Primary Care Nurse Name: Aba Linares DO Position: Reference Physician Member Role: PCP Address: Address: [address] [place] [address] [place] [address]- [place] Name: Tesha Kirkpatrick RN Position: [facility] RN Member Role: Primary Care Nurse Name: Vera Patricia RN Position: [facility] AMB Nurse Member Role: Primary Care Nurse Name: Pau Mills RN Position: [facility] AMB Nurse Member Role: Primary Care Nurse Name: Genevieve Orozco RN Position: [facility] RN Member Role: Primary Care Nurse Name: Bridget Zaidi Position: [facility] ED TA [facility] Member Role: Shake Backboard Notcher Name: Janak Brooks MD Position: [facility] ED Medicine MD Member Role: Admitting Physician Address: Address: [address] [place] [address]- Name: Carmelita Morrison MD Position: [facility] Resident Member Role: ED Resident Address: Address: [address] [place] [address]- Name: Nahomy Alfaro RN Position: [facility] ED RN W/OE and Tasks Member Role: Patient Care Provider Care Team Related Persons Name: CIRO TORREZ Address: home [address] [place] [address] Name: PAULA WALLIS Address: [place] [address]
--- OUTSIDE RECORDS SUMMARY | 2023-06-07 22:04 | XMS_ITS | Continuity of Care Document ---
Author Name Unknown Organization [facility] Physical Ct dicine and Rehabilitation Address [address] [place] [address]- Care Team Providers Care Urban Renewal Manager Name Role Phone Milagros CHUNG Aba Gee Primary Care Physician [phone] [facility] [place] Date(s): 10/14/22 - 11/13/22 [facility] Physical Medicine and Rehabilitation [address] [place] [address] Allergies, Adverse Reactions, Alerts No Known Allergies [...] 05/26/22 15:47:00 EST, Route to Pharmacy Electronically, [facility]/pharmacy #[id number], Partial fill upon patient request if the [...] 11 Refills, Maintenance, 02/10/22 14:22:00 EDT, Capsule, [facility]/pharmacy #[id number], \, 180.3, cm, 01/27/22 15:54:00 [...] 11 Refills, Maintenance, 08/20/21 15:56:00 EDT, Suppository, [facility]/pharmacy #[id number], 180.3, cm, 08/12/21 7:56:00 EDT, [...] Refills, Maintenance, 09/17/21 16:24:00 EDT, REC Powder, [facility]/pharmacy #[id number], Partial fill upon patient request [...] Date: 09/09/20 Status: Ordered Please provide 24/7 CONSULTING DATABASE ADMINISTRATOR care and weekly VNA visits for medication management. Please provide 24/7 CONSULTING DATABASE ADMINISTRATOR care and weekly VNA visits for medication [...] 6 Refills, Maintenance, 08/21/21 7:56:00 EDT, Ointment, [facility]/pharmacy #[id number], Partial fill upon patient request if the prescription is for a schedule II opioid drug., Topical... Start Date: 08/21/21 Status: Ordered Problem List Condition Confirmation Course Effective Dates Status Health St atus Informant Lower extremity edema Confirmed Active Obese class II Confirmed Active Patient Care team information Care Team Personnel Name: Danny Whittaker RN Position: [facility] ED RN W/OE and Tasks Member Role: Primary Care Nurse Name: Aba Linares DO Position: Reference Physician Member Role: PCP Address: Address: [address] [place] [address] Internal Medicine [place], [place] [address] Name: Tesha Kirkpatrick RN Position: [facility] RN Member Role: Primary Care Nurse Name: Vera Patricia RN Position: [facility] AMB Nurse Member Role: Primary Care Nurse Name: Pau Mills RN Position: [facility] AMB Nurse Member Role: Primary Care Nurse Name: Genevieve Orozco RN Position: S RN Member Role: Primary Care Nurse Care Team Related Persons Name: CIRO TORREZ Address: [address] [address] Name: PAULA WALLIS Address: home [place] [address]
--- OUTSIDE RECORDS SUMMARY | 2023-06-07 22:04 | XMS_ITS | Continuity of Care Document ---
Author Name Unknown Organization [facility] Physical Pa dicine and Rehabilitation Address [address] [address]- Care Team Providers Care Commercial Property Manager Name Role Phone Aba Linares DO Marlen Primary Care Physician Encounter [facility] [place] Date(s): 04/10/23 - 05/10/23 [facility] Physical Medicine and Rehabilitation [address] [place] [address]- Allergies, Adverse Reactions, Alerts No Known Allergies [...] 02/09/23 14:14:00 EDT, Route to Pharmacy Electronically, [facility],178, cm, 02/09/23 13:48:00 EDT, Height, 120, kg, 06... Start Date: 02/09/23 Status: Ordered baclofen 10 mg oral tablet 10 mg, 1, tablet, By Mouth, 3 times a day, # 90 tablet, Refills 0, Tot. Refills 0, Maintenance, 05/26/22 15:47:00 EST, Route to Pharmacy Electronically, [facility]/pharmacy #[id number], Partial fill upon patient request if [...] 0, Tot. Refills 0, Maintenance, Dx: Tetraplegia, 04/10/23 15:39:00 EST, Supply Start Date: 04/10/23 Status: Ordered bisacodyl 10 mg rectal suppository [...] Refills, Maintenance, 08/20/21 15:56:00 EDT, Suppository, [facility]/pharmacy #[id number], 180.3, cm, 08/12/21 7:56:00 EDT, Height, [...] Maintenance, 09/17/21 16:24:00 EDT, REC Powder, [facility]/pharmacy #[id number], Partial fill upon patient request if [...] Date: 09/09/20 Status: Ordered Please provide 28/11 OFFAL ICER POULTRY care and weekly VNA visits for medication management. Please provide 28/11 OFFAL ICER POULTRY care and weekly VNA visits for medication management., See Instructions, # 1 each, Refills 0, Tot. Refills 0, Maintenance, Dx: Tetraplegia, 12/06/21 10:20:00 EDT, Supply Start Date: 12/06/21 Status: Ordered Reusable underpads Reusable underpads, See Instructions, # 7 each, Refills 11, Tot. Refills 11, Maintenance, Dx: Tetraplegia, 04/11/23 10:36:00 EST, Supply Start Date: 04/11/23 Status: Ordered Right UE combination Elbow /hand [...] 6 Refills, Maintenance, 08/21/21 7:56:00 EDT, Ointment, [facility]/pharmacy #[id number], Partial fill upon patient request if the [...] Reference Physician Member Role: PCP Address: Address: [address] [place] [address] [place] [address]- Name: Tesha Kirkptarick RN Position: S RN Member Role: Primary Care Nurse Name: Vera Patricia RN Position: [facility] Nurse Member Role: Primary Care Nurse Name: Genevieve Orozco RN Position: [facility] RN Member Role: Primary Care Nurse Care Team Related Persons Name: CIRO TORREZ Address: [address] [address] Name: FARNAZ HANNAH
--- OUTSIDE RECORDS SUMMARY | 2023-06-07 22:04 | XMS_ITS | Continuity of Care Document ---
Author Name Unknown Organization [facility] Address [address] [place] [address]- Care Team Providers Care Flash Ranging Crewmember Name Role Phone Aba Linares DO Primary Care Physician [phone] Encounter [facility] Date(s): 09/01/22 - 09/08/22 [facility] Medicine and Rehabilitation [address] [place] [address]- Attending Physician: Radha CAMACHO, Eran Referring Physician: [...] 15:47:00 EST, Route to Pharmacy Electronically, [facility]/pharmacy #[id number], Partial fill upon patient request if the prescription is for a schedule II opi... Start Date: 05/26/22 Status: Ordered baclofen 10 mg oral tablet 10 mg, 1, tablet, By Mouth, 3 times a day, # 270 tablet, Refills 1, Tot. Refills 1, Maintenance, 06/10/22 15:49:00 EST, Route to Pharmacy Electronically, [facility], 180.3, cm, 05/26/22 [...] Refills, Maintenance, 02/10/22 14:22:00 EDT, Capsule, [facility]/pharmacy #[id number], \, 180.3, cm, 01/27/22 15:54:00 [...] Refills, Maintenance, 08/20/21 15:56:00 EDT, Suppository, [facility]/pharmacy #[id number], 180.3, cm, 08/12/21 7:56:00 EDT, [...] Maintenance, 09/17/21 16:24:00 EDT, REC Powder, [facility]/pharmacy #[id number], Partial fill upon patient request [...] Date: 09/09/20 Status: Ordered Please provide 24/7 WEDDING DESIGNER care and weekly VNA visits for medication management. Please provide 24/7 WEDDING DESIGNER care and weekly VNA visits for medication [...] oldest [Reference Range]: 1 Height 180.3 cm (09/01/22 1:11 PM) Oxygen Saturation [94-100 %] 96 % (09/01/22 1:11 PM) Pulse Rate [55-90 bpm] 57 bpm (09/01/22 1:11 PM) Blood Pressure [90-138/55-84 mm Hg] 101/ 48mm Hg (09/01/22 1:11 PM) Mode of Delivery (Oxygen) Room air (09/01/22 1:11 PM) Blood pressure sites Arm, left (09/01/22 1:11 PM) Patient Care team information Care Team Personnel Name: Danny Whittaker RN Position: S ED RN W/OE and Tasks Member Role: Primary Care Nurse Name: Aba Linares DO Position: Reference Physician Member Role: PCP Address: Address: [address] [place] [address] Internal Medicine [place], [place] [address] Name: Tesha Kirkpatrick RN Position: S RN Member Role: Primary Care Nurse Name: Vera Patricia RN Position: [facility] RN Member Role: Primary Care Nurse Name: Pau Mills RN Position: [facility] AMB Nurse Member Role: Primary Care Nurse Name: Genevieve Orozco RN Position: [facility] RN Member Role: Primary Care Nurse Care Team Related Persons Name: CIRO TORREZ Address: home [address] [place] [address] [place] [address] Name: PAULA WALLIS Address: [place] [address]
--- OUTSIDE RECORDS SUMMARY | 2023-06-07 22:04 | XMS_ITS | Continuity of Care Document ---
Author Name Unknown Organization [facility] Physical Me dicine and Rehabilitation Address Unknown Care Team Providers Care Derrick Boat Lever Operator Name Role Phone Aba Linares DO Primary Care Phys[id number] - 08[facility]19[facility] [facility] Medicine [facility] Rehabilitation Encounter Diagnosis Dysesthesia(Discharge Diagnosis) - 08/12/21 Neurogenic bowel(Discharge Diagnosis) - 08/12/21 Spasticity(Discharge Diagnosis) - 08/12/21 Quadriplegia, C5-C7 complete(Discharge Diagnosis) - 08/12/21 Presence of intrathecal baclofen pump(Discharge Diagnosis) - 08/12/21 Neurogenic bladder(Discharge Diagnosis) - 08/12/21 Attending Physician: Eran Garcia MD Referring Physician: [...] mg, Rectally, Daily, Daily afer dinner., # 10 supp, 0 Refills, Maintenance, 08/12/21 9:01:00 EDT, Suppository Start Date: 08/12/21 Status: Ordered melatonin 3 mg oral tablet [...] EDT Start Date: 09/09/20 Status: Ordered Venelex Topically, 3 times a day, 0 Refills, Maintenance, 08/12/21 9:15:00 EDT, Partial fill upon patient request if the prescription is for a schedule II opioid drug. Start Date: 08/12/21 Status: Ordered Problem List Diagnosis Diagnosis Type Effective Dates Health Status Clinical Service Informant Quadriplegia, C5-C7 complete Discharge Diagnosis 08/12/21 Neurogenic bowel Discharge Diagnosis 08/12/21 Spasticity Discharge Diagnosis 08/12/21 Dysesthesia Discharge Diagnosis 08/12/21 Presence of intrathecal baclofen pump Discharge Diagnosis 08/12/21 Neurogenic bladder Discharge Diagnosis 08/12/21 Vital Signs Most recent to oldest [Reference Range]: 1 Height 180.3 cm (08/12/21 7:56 AM) Oxygen Saturation [94-100 %] 97 % (08/12/21 7:56 AM) Pulse Rate [55-90 bpm] 88 bpm (08/12/21 7:56 AM) Blood Pressure [90-138/55-84 mm Hg] 115/ 49mm Hg (08/12/21 7:56 AM) Temperature [96.8-100.4 DegF] 98.6 DegF (08/12/21 7:56 AM) Blood pressure sites Arm, left (08/12/21 7:56 AM) Temperature Route Temporal (08/12/21 7:56 AM)
--- OUTSIDE RECORDS SUMMARY | 2023-06-07 22:04 | XMS_ITS | Continuity of Care Document ---
Author Name Unknown Organization [facility] Physical Me dicine and Rehabilitation Address [address] [place] [address]- Care Team Providers Care Assistant Plant Manager Name Role Phone Milagros CHUNG Aba Gee Primary Care Physician [phone] Encounter [facility] Date(s): 03/13/23 - 04/12/23 [facility] Physical Medicine and Rehabilitation [address] [place] [id number] Allergies, Adverse Reactions, Alerts No Known Allergies [...] 02/09/23 14:14:00 EDT, Route to Pharmacy Electronically, [facility],178, cm, 02/09/23 13:48:00 EDT, Height, 120, kg, 06... Start Date: 02/09/23 Status: Ordered baclofen 10 mg oral tablet 10 mg, 1, tablet, By Mouth, 3 times a day, # 90 tablet, Refills 0, Tot. Refills 0, Maintenance, 05/26/22 15:47:00 EST, Route to Pharmacy Electronically, [facility]/pharmacy #[id number], Partial fill upon patient request if the [...] 11 Refills, Maintenance, 08/20/21 15:56:00 EDT, Suppository, [facility]/pharmacy #[id number], 180.3, cm, [...] Refills, Maintenance, 09/17/21 16:24:00 EDT, REC Powder, [facility]/pharmacy #[id number], Partial fill [...] Date: 09/09/20 Status: Ordered Please provide 28/11 TRAFFIC INSPECTOR care and weekly VNA visits for medication management. Please provide 28/11 TRAFFIC INSPECTOR care and weekly VNA visits for medication [...] 6 Refills, Maintenance, 08/21/21 7:56:00 EDT, Ointment, [facility]/pharmacy #[id number], Partial fill upon patient request if the [...] Tasks Member Role: Primary Care Nurse Name: Bigda DO, Aba A Position: Reference Physician Member Role: PCP Address: Address: [address] [place] [address] Internal Medicine [place], [place] [address] Name: Tesha Kirkpatrick RN Position: S RN Member Role: Primary Care Nurse Name: Vera Patricia RN Position: [facility] AMB Nurse Member Role: Primary Care Nurse Name: Genevieve Orozco RN Position: [facility] RN Member Role: Primary Care Nurse Care Team Related Persons Name: CIRO TORREZ Address: [address] [address] Name: FARNAZ HANNAH
--- OUTSIDE RECORDS SUMMARY | 2023-06-07 22:04 | XMS_ITS | Continuity of Care Document ---
Author Name Unknown Organization [facility] Physical Ut dicine and Rehabilitation Address [address] [place] [address]- Care Team Providers Care Manager Marketing Name Role Phone Aba Linares DO Primary Care Physician Encounter [facility] Date(s): 10/22/21 - 02/19/22 [facility] Physical Medicine and Rehabilitation [address] [place] [address]- Attending Physician: Radha CAMACHO, Eran Referring Physician: [...] 09/17/21 16:22:00 EDT, Route to Pharmacy Electronically, [facility]/pharmacy #[id number], Partial fill upon patientrequest if the prescription [...] 11 Refills, Maintenance, 02/10/22 14:22:00 EDT, Capsule, [facility]/pharmacy #[id number], \, 180.3, cm, 01/27/22 15:54:00 [...] 11 Refills, Maintenance, 08/20/21 15:56:00 EDT, Suppository, [facility]/pharmacy #[id number], 180.3, cm, 08/12/21 7:56:00 EDT, [...] Refills, Maintenance, 09/17/21 16:24:00 EDT, REC Powder, [facility]/pharmacy #[id number], Partial fill upon patient request [...] Date: 09/09/20 Status: Ordered Please provide 28/11 CHORUS MASTER care and weekly VNA visits for medication management. Please provide 28/11 CHORUS MASTER care and weekly VNA visits for medication [...] 05/27/22 17:03:00 EST, 01/27/22 17:03:00 EDT, Tablet, [facility]/pharmacy #[id number], 180.3, cm, 01/27/22 15:54:00 EDT, [...] 6 Refills, Maintenance, 08/21/21 7:56:00 EDT, Ointment, [facility]/pharmacy #[id number], Partial fill upon patient request if the prescription is for a schedule II opioid drug., Topical... Start Date: 08/21/21 Status: Ordered Problem List Condition Confirmation Course Effective Dates Status Health St atus Informant Lower extremity edema Confirmed Active Patient Care team information Personnel Name: Aba Linares DO Address: Address: [address] [place] [address] Internal Medicine [place], [place] [address]
--- OUTSIDE RECORDS SUMMARY | 2023-06-07 22:04 | XMS_ITS | Continuity of Care Document ---
Author Name Unknown Organization [facility] Address [address] [place] [address]- Care Team Providers Care Commodity Loan Clerk Name Role Phone Aba Linares DO Marlen Primary Care Physician Encounter [facility] [place] Date(s): 05/12/22 - 09/24/[address] [address] Encounter Diagnosis Quadriplegia, unspecified(Final) - Discharge [...] 05/26/22 15:47:00 EST, Route to Pharmacy Electronically, [facility]/pharmacy #[id number], Partial fill upon patient request if the prescription is for a schedule II opi... Start Date: 05/26/22 Status: Ordered baclofen 10 mg oral tablet 10 mg, 1, tablet, By Mouth, 3 times a day, # 270 tablet, Refills 1, Tot. Refills 1, Maintenance, 06/10/22 15:49:00 EST, Route to Pharmacy Electronically, [facility], 180.3, cm, 05/26/22 [...] 11 Refills, Maintenance, 02/10/22 14:22:00 EDT, Capsule, [facility]/pharmacy #[id number], \, 180.3, cm, 01/27/22 [...] 11 Refills, Maintenance, 08/20/21 15:56:00 EDT, Suppository, [facility]/pharmacy #[id number], 180.3, cm, 08/12/21 7:56:00 [...] Refills, Maintenance, 09/17/21 16:24:00 EDT, REC Powder, [facility]/pharmacy #[id number], Partial fill upon patient [...] Date: 09/09/20 Status: Ordered Please provide 24/7 FERRYBOAT CAPTAIN care and weekly VNA visits for medication management. Please provide 24/7 FERRYBOAT CAPTAIN care and weekly VNA visits for medication [...] 6 Refills, Maintenance, 08/21/21 7:56:00 EDT, Ointment, [facility]/pharmacy #[id number], Partial fill upon patient [...] Physician Member Role: PCP Address: Address: [address] [place] [address] Internal Medicine [place], [place] [address] Name: Tesha Kirkpatrick RN Position: [facility] RN Member Role: Primary Care Nurse Name: Vera Patricia RN Position: [facility] AMB Nurse Member Role: Primary Care Nurse Name: Pau Mills RN Position: [facility] AMB Nurse Member Role: Primary Care Nurse Name: Genevieve Orozco RN Position: [facility] RN Member Role: Primary Care Nurse Care Team Related Persons Name: CIRO TORREZ Address: [address] [address] Name: PAULA WALLIS Address: [place] [address]
--- OUTSIDE RECORDS SUMMARY | 2023-06-07 22:04 | XMS_ITS | Continuity of Care Document ---
Author Name Unknown Organization [facility] Physical Ar dicine and Rehabilitation Address [address] [place] [address]- Care Team Providers Care Teacher Emotionally Impaired Name Role Phone Aba Linares DO Marlen Primary Care Physician [place] [facility] [place] 02/10/22 - 03/12/22 [facility] Physical Medicine and Rehabilitation [address] [place] [address]- Allergies, Adverse Reactions, Alerts No Known Allergies [...] 09/17/21 16:22:00 EDT, Route to Pharmacy Electronically, [facility]/pharmacy #[id number], Partial fill upon patientrequest if the prescription [...] 11 Refills, Maintenance, 02/10/22 14:22:00 EDT, Capsule, [facility]/pharmacy #[id number], \, 180.3, cm, 01/27/22 15:54:00 [...] 11 Refills, Maintenance, 08/20/21 15:56:00 EDT, Suppository, [facility]/pharmacy #[id number], 180.3, cm, 08/12/21 7:56:00 EDT, [...] Refills, Maintenance, 09/17/21 16:24:00 EDT, REC Powder, [facility]/pharmacy #[id number], Partial fill upon patient request [...] Date: 09/09/20 Status: Ordered Please provide 28/11 DESTINATION SIGN REPAIRER care and weekly VNA visits for medication management. Please provide 28/11 DESTINATION SIGN REPAIRER care and weekly VNA visits for [...] 05/27/22 17:03:00 EST, 01/27/22 17:03:00 EDT, Tablet, [facility]/pharmacy #[id number], 180.3, cm, 01/27/22 15:54:00 EDT, [...] 6 Refills, Maintenance, 08/21/21 7:56:00 EDT, Ointment, [facility]/pharmacy #[id number], Partial fill upon patient request if the prescription is for a schedule II opioid drug., Topical... Start Date: 08/21/21 Status: Ordered Problem List Condition Confirmation Course Effective Dates Status Health St atus Informant Lower extremity edema Confirmed Active Patient Care team information Personnel Name: Aba Linares DO Address: Address: [address] [place] [address] Internal Medicine [place], [place] [address]
--- OUTSIDE RECORDS SUMMARY | 2023-06-07 22:04 | XMS_ITS | Continuity of Care Document ---
Author Name Unknown Organization [facility] Physical Me dicine and Rehabilitation Address Unknown Care Team Providers Care Method Consultant Name Role Phone Aba Linares DO Marlen Primary Care Physician [phone] Encounter [facility] Date(s): 11/24/21 - 12/24/21 [facility] Physical Medicine and Rehabilitation Allergies, Adverse [...] 09/17/21 16:22:00 EDT, Route to Pharmacy Electronically, [facility]/pharmacy #[id number], Partial fill upon patientrequest if the prescription [...] 11 Refills, Maintenance, 08/20/21 15:56:00 EDT, Suppository, [facility]/pharmacy #[id number], 180.3, cm, 08/12/21 7:56:00 [...] Refills, Maintenance, 09/17/21 16:24:00 EDT, REC Powder, [facility]/pharmacy #[id number], Partial fill upon patient [...] Date: 09/09/20 Status: Ordered Please provide 28/11 PARKING RAMP ATTENDANT care and weekly VNA visits for medication management. Please provide 28/11 PARKING RAMP ATTENDANT care and weekly VNA visits for [...] 6 Refills, Maintenance, 08/21/21 7:56:00 EDT, Ointment, [facility]/pharmacy #[id number], Partial fill upon patient request if the prescription is for a schedule II opioid drug., Topical... Start Date: 08/21/21 Status: Ordered Problem List Condition Effective Dates Status Health Status Inform ant Lower extremity edema(Confirmed) Active
--- OUTSIDE RECORDS SUMMARY | 2023-06-07 22:04 | XMS_ITS | Continuity of Care Document ---
Author Name Unknown Organization [facility] Address [address] [place] [address] [address] [place] [address]- Care Team Providers Care Brick Setter Operator Name Role Phone Not on Staff, PCP Primary Care Physician Unavail able Encounter [facility] Date(s): 09/24/20 - 10/24/20 [facility] [address] [place] [address]- Attending Physician: Sumaya Rod Admitting Physician: Admtr, [...]
--- OUTSIDE RECORDS SUMMARY | 2023-06-07 22:04 | XMS_ITS | Continuity of Care Document ---
Author Name Unknown Organization [facility] Raymond lalito Address [address] [place] [address] [address] [place] [address]- Care Team Providers Care Body Technician/Painter Name Role Phone Aba Linares DO Marlen Primary Care Physician [place] [facility] [place]23 - 05/18/23 [facility] [address] [place], [place] [address] Allergies, Adverse Reactions, Alerts No [...] 02/09/23 14:14:00 EDT, Route to Pharmacy Electronically, [facility],178, cm, 02/09/23 13:48:00 EDT, Height, 120, kg, 06... Start Date: 02/09/23 Status: Ordered baclofen 10 mg oral tablet 10 mg, 1, tablet, By Mouth, 3 times a day, # 90 tablet, Refills 0, Tot. Refills 0, Maintenance, 05/26/22 15:47:00 EST, Route to Pharmacy Electronically, [facility]/pharmacy #[id number], Partial fill upon patient request if the [...] 11 Refills, Maintenance, 08/20/21 15:56:00 EDT, Suppository, [facility]/pharmacy #[id number], 180.3, cm, 08/12/21 [...] Refills, Maintenance, 09/17/21 16:24:00 EDT, REC Powder, [facility]/pharmacy #[id number], Partial fill upon [...] Date: 09/09/20 Status: Ordered Please provide 28/11 PACKING TRACTOR MACHINE OPERATOR care and weekly VNA visits for medication management. Please provide / PACKING TRACTOR MACHINE OPERATOR care and weekly VNA visits [...] 6 Refills, Maintenance, 08/21/21 7:56:00 EDT, Ointment, [facility]/pharmacy #[id number], Partial fill upon patient request if the prescription is for a schedule II opioid drug., Topical... Start Date: 08/21/21 Status: Ordered Problem List Condition Confirmation Course Effective Dates Status [facility] atus Informant Presence of intrathecal baclofen pump Confirmed Active Lower extremity edema Confirmed Active Obese class II Confirmed Active Patient Care team information Care Team Personnel Name: Danny Whittaker RN Position: S ED RN W/OE and Tasks Member Role: Primary Care Nurse Name: Aba Linares DO Position: Reference Physician Member Role: PCP Address: Address: [address] [place] [address] [place] [address]- Name: Tesha Kirkpatrick RN Position: S RN Member Role: Primary Care Nurse Name: Vera Patricia RN Position: [facility] AMB Nurse Member Role: Primary Care Nurse Name: Genevieve Orozco RN Position: [facility] RN Member Role: Primary Care Nurse Care Team Related Persons Name: CIRO TORREZ Address: [address] [address] Name: FARNAZ HANNAH
--- OUTSIDE RECORDS SUMMARY | 2023-06-07 22:04 | XMS_ITS | Continuity of Care Document ---
Author Name Unknown Organization [facility] Physical Me dicine and Rehabilitation Address [address] [place] [address]- Care Team Providers Care Child And Adolescent Psychologist Name Role Phone Aba Linares DO Marlen Primary Care Physician [phone] Encounter [facility] [place] Date(s): 03/22/22 - 04/21/22 [facility] Physical Medicine and Rehabilitation [address] [place] [address] Allergies, Adverse Reactions, Alerts No Known [...] Route to Pharmacy Electronically, [facility]/pharmacy #[id number], Partial fill upon patientrequest if the prescription [...] Date: 09/09/20 Status: Ordered Please provide 28/11 JUNK REMOVAL SPECIALIST care and weekly VNA visits for medication management. Please provide 24/ JUNK REMOVAL SPECIALIST care and weekly VNA visits for [...] 08/21/21 7:56:00 EDT, Ointment, [facility]/pharmacy #[id number], Partial fill upon patient request if the prescription is for a schedule II opioid drug., Topical... Start Date: 08/21/21 Status: Ordered Problem List Condition Confirmation Course Effective Dates Status Health atus Informant Lower extremity edema Confirmed Active Patient Care team information Care Team Personnel Name: Danny Whittaker RN Position: [facility] ED RN W/OE and Tasks Member Role: Primary Care Nurse Name: Aba Linares DO Position: Reference Physician Member Role: PCP Address: Address: [address] [place] [address] [place] [address]- Name: Tesha Kirkpatrick RN Position: [facility] RN Member Role: Primary Care Nurse Name: Vera Patricia RN Position: [facility] RN Member Role: Primary Care Nurse Name: Pau Mills RN Position: [facility] AMB Nurse Member Role: Primary Care Nurse Name: Genevieve Orozco RN Position: [facility] RN Member Role: Primary Care Nurse Care Team Related Persons Name: CIRO TORREZ Address: home [address] [place] [address]
--- OUTSIDE RECORDS SUMMARY | 2023-06-07 22:04 | XMS_ITS | Continuity of Care Document ---
Author Name Unknown Organization [facility] Address [address] [place] [address]- Care Team Providers Care It Associate Name Role Phone Aba Linares DO Marlen Primary Care Physician [place] [facility] [place]23 - 03/31/[address] [address]- Attending Physician: Sumaya Rod Admitting Physician: Sumaya [...] 02/09/23 14:14:00 EDT, Route to Pharmacy Electronically, [facility],178, cm, 02/09/23 13:48:00 EDT, Height, 120, kg, 06... Start Date: 02/09/23 Status: Ordered baclofen 10 mg oral tablet 10 mg, 1, tablet, By Mouth, 3 times a day, # 90 tablet, Refills 0, Tot. Refills 0, Maintenance, 05/26/22 15:47:00 EST, Route to Pharmacy Electronically, [facility]/pharmacy #[id number], Partial fill upon patient request if the [...] Date: 09/09/20 Status: Ordered Please provide 28/11 BOILER TESTER care and weekly VNA visits for medication management. Please provide / BOILER TESTER care and weekly VNA visits for medication [...] 08/21/21 7:56:00 EDT, Ointment, [facility]/pharmacy #[id number], Partial fill upon patient request if the [...] Reference Physician Member Role: PCP Address: Address: [address] [place] [address] Internal Medicine [place], [place] [address] Name: Tesha Kirkpatrick RN Position: [facility] RN Member Role: Primary Care Nurse Name: Vera Patricia RN Position: [facility] AMB Nurse Member Role: Primary Care Nurse Name: Genevieve Orozco RN Position: [facility] RN Member Role: Primary Care Nurse Care Team Related Persons Name: CIRO TORREZ Address: [address] [address] Name: FARNAZ HANNAH
--- OUTSIDE RECORDS SUMMARY | 2023-06-07 22:04 | XMS_ITS | Continuity of Care Document ---
Author Name Unknown Organization [facility] Address [address] [place] [address]- Care Team Providers Care Arch Support Technician Name Role Phone Aba Linares DO Marlen Primary [facility] Phys[id number] Date[facility] - 06/11/[address] [address] Attending Physician: Eran Garcia MD [...] 05/26/22 15:47:00 EST, Route to Pharmacy Electronically, [facility]/pharmacy #[id number], Partial fill upon patient request if the [...] 11 Refills, Maintenance, 02/10/22 14:22:00 EDT, Capsule, [facility]/pharmacy #[id number], \, 180.3, cm, 01/27/22 [...] 11 Refills, Maintenance, 08/20/21 15:56:00 EDT, Suppository, [facility]/pharmacy #[id number], 180.3, cm, 08/12/21 7:56:00 [...] Refills, Maintenance, 09/17/21 16:24:00 EDT, REC Powder, [facility]/pharmacy #[id number], Partial fill upon patient [...] Date: 09/09/20 Status: Ordered Please provide 24/7 SHOE PULLER care and weekly VNA visits for medication management. Please provide 24/7 SHOE PULLER care and weekly VNA visits for medication [...] 6 Refills, Maintenance, 08/21/21 7:56:00 EDT, Ointment, [facility]/pharmacy #[id number], Partial fill upon patient request if the prescription is for a schedule II opioid drug., Topical... Start Date: 08/21/21 Status: Ordered Problem List Condition Confirmation Course Effective Dates Status Health St atus Informant Lower extremity edema Confirmed Active Patient Care team information Care Team Personnel Name: Danny Whittaker RN Position: [facility] ED RN W/OE and Tasks Member Role: Primary Care Nurse Name: Aba Linares DO Position: Reference Physician Member Role: PCP Address: Address: [address] [place] [address] [place] [address]- Name: Tesha Kirkpatrick RN Position: [facility] RN Member Role: Primary Care Nurse Name: Vera Patricia RN Position: [facility] RN Member Role: Primary Care Nurse Name: Pau Milsl RN Position: [facility] SURINDER Nurse Member Role: Primary Care Nurse Name: Genevieve Orozco RN Position: [facility] RN Member Role: Primary Care Nurse Care Team Related Persons Name: CIRO TORREZ Address: [address] [address]
--- OUTSIDE RECORDS SUMMARY | 2023-06-07 22:04 | XMS_ITS | Continuity of Care Document ---
Author Name Unknown Organization [facility] Address [address] [place] [address] [address] [place] [address]- Care Team Providers Care Bilingual Account Manager Name Role Phone Not on Staff, PCP Primary Care Physician Unavail able Encounter [facility] Date(s): 09/14/20 - 10/14/20 [facility] [address] [place] [address]- Allergies, Adverse Reactions, Alerts Substance Reaction Severity [...]
--- OUTSIDE RECORDS SUMMARY | 2023-06-07 22:04 | XMS_ITS | Continuity of Care Document ---
Author Name Unknown Organization [facility] Address [address] [place] [address] [address] [place] [address]- Care Team Providers Care Human Resources Vice President Name Role Phone Aba Linares DO Marlen Primary Care Physician Encounter [facility] Date(s): 12/20/22 - 01/19/23 [facility] [address] [place], [place] [address] Attending Physician: Sumaya Rod Admitting Physician: [...] 05/26/22 15:47:00 EST, Route to Pharmacy Electronically, [facility]/pharmacy #[id number], Partial fill upon patient request if the [...] 11 Refills, Maintenance, 08/20/21 15:56:00 EDT, Suppository, [facility]/pharmacy #[id number], 180.3, cm, 08/12/21 7:56:00 EDT, [...] Refills, Maintenance, 09/17/21 16:24:00 EDT, REC Powder, [facility]/pharmacy #[id number], Partial fill upon patient request [...] Date: 09/09/20 Status: Ordered Please provide / DIRECTOR OF GIFT PLANNING care and weekly VNA visits for medication management. Please provide 24/ DIRECTOR OF GIFT PLANNING care and weekly VNA visits for medication [...] 6 Refills, Maintenance, 08/21/21 7:56:00 EDT, Ointment, [facility]/pharmacy #[id number], Partial fill upon patient request if the [...] Reference Physician Member Role: PCP Address: Address: [address] [place] [address] Internal Medicine [place], [place] [address] Name: Tesha Kirkpatrick RN Position: [facility] RN Member Role: Primary Care Nurse Name: Vera Patricia RN Position: [facility] AMB Nurse Member Role: Primary Care Nurse Name: Genevieve Orozco RN Position: [facility] RN Member Role: Primary Care Nurse Care Team Related Persons Name: CIRO TORREZ Address: [address] [address] Name: FARNAZ HANNAH
--- OUTSIDE RECORDS SUMMARY | 2023-06-07 22:05 | XMS_ITS | Continuity of Care Document ---
Author Name Unknown Organization [facility] Address [address] [place] [address]- Care Team Providers Care Concrete Panel Installer Name Role Phone Aba Linares DO Marlen Primary Care Physician Encounter [facility] Date(s): 12/15/21 - 01/14/22 [facility] [address] [place] [address]- Allergies, Adverse Reactions, Alerts No Known Allergies [...] 09/17/21 16:22:00 EDT, Route to Pharmacy Electronically, [facility]/pharmacy #[id number], Partial fill upon patientrequest if the prescription [...] Date: 09/09/20 Status: Ordered Please provide 28/11 PURCHASING MANAGER care and weekly VNA visits for medication management. Please provide 28/11 PURCHASING MANAGER care and weekly VNA visits for [...] Refills, Maintenance, 08/21/21 7:56:00 EDT, Ointment, [id number], Partial fill upon patient request if the prescription is for a schedule II opioid drug., Topical... Start Date: 08/21/21 Status: Ordered Problem List Condition Effective Dates Status Health Status Inform ant Lower extremity edema(Confirmed) Active Care Team Personnel Name: bAa Linares DO Address: [address] [place] [address] Internal Medicine [place], [place] [address]
--- OUTSIDE RECORDS SUMMARY | 2023-06-07 22:05 | XMS_ITS | Continuity of Care Document ---
Author Name Unknown Organization [facility] Address Unknown Care Team Providers Care Security Guard Dispatcher Name Role Phone Aba Linares DO Marlen Primary Care Physician [phone] Encounter [facility] Date(s): 10/26/21 - 11/25/21 [facility] Allergies, Adverse [...] 09/17/21 16:22:00 EDT, Route to Pharmacy Electronically, [facility]/pharmacy #[id number], Partial fill upon patientrequest if the prescription [...] 08/21/21 7:56:00 EDT, Ointment, [facility]/pharmacy #[id number], Partial fill upon patient request if the prescription is for a schedule II opioid drug., Topical... Start Date: 08/21/21 Status: Ordered Problem List Condition Effective Dates Status Health Status Inform ant Lower extremity edema(Confirmed) Active
--- OUTSIDE RECORDS SUMMARY | 2023-06-07 22:05 | XMS_ITS | Continuity of Care Document ---
Author Name Unknown Organization [facility] Address Unknown Care Team Providers Care Software Design Engineer Name Role Phone Aba Linares DO Marlen Primary Care Physician [phone] [place] [facility] [place]s): 09/01/21 - 10/01/21 [facility] Allergies, [...] 16:22:00 EDT, Route to Pharmacy Electronically, [facility]/pharmacy #[id number], Partial fill upon patientrequest if the prescription [...] Refills, Maintenance, 08/20/21 15:56:00 EDT, Suppository, [facility]/pharmacy #[id number], 180.3, cm, 08/12/21 7:56:00 EDT, Height, [...] Maintenance, 09/17/21 16:24:00 EDT, REC Powder, [facility]/pharmacy #[id number], Partial fill upon patient request if [...] Refills, Maintenance, 08/21/21 7:56:00 EDT, Ointment, [facility]/pharmacy #[id number], Partial fill upon patient request if the prescription is for a schedule II opioid drug., Topical... Start Date: 08/21/21 Status: Ordered Problem List Condition Effective Dates Status Health Status Inform ant Lower extremity edema(Confirmed) Active
--- OUTSIDE RECORDS SUMMARY | 2023-06-07 22:05 | XMS_ITS | Continuity of Care Document ---
Author Name Unknown Organization [facility] Address [address] [place] [address]- Care Team Providers Care Geophysical Prospector Name Role Phone Aba Linares DO Primary Care Physician Encounter [facility] R [id number] Date(s): 04/20/23 - 04/27/23 [facility] [address] [place] [address]- Attending Physician: Radha CAMACHO, Eran Referring Physician: [...] 02/09/23 14:14:00 EDT, Route to Pharmacy Electronically, [facility],178, cm, 02/09/23 13:48:00 EDT, Height, 120, kg, 06... Start Date: 02/09/23 Status: Ordered baclofen 10 mg oral tablet 10 mg, 1, tablet, By Mouth, 3 times a day, # 90 tablet, Refills 0, Tot. Refills 0, Maintenance, 05/26/22 15:47:00 EST, Route to Pharmacy Electronically, [facility]/pharmacy #[id number], Partial fill upon patient request if the [...] Refills, Maintenance, 08/20/21 15:56:00 EDT, Suppository, [facility]/pharmacy #[id number], 180.3, cm, 08/12/21 7:56:00 EDT, Height, [...] Maintenance, 09/17/21 16:24:00 EDT, REC Powder, [facility]/pharmacy #[id number], Partial fill upon patient request if [...] Date: 09/09/20 Status: Ordered Please provide 28/11 MORTGAGE UNDERWRITER care and weekly VNA visits for medication management. Please provide 28/11 MORTGAGE UNDERWRITER care and weekly VNA visits for medication [...] Refills, Maintenance, 08/21/21 7:56:00 EDT, Ointment, [id number], Partial fill upon patient request if the prescription is for a schedule II opioid drug., Topical... Start Date: 08/21/21 Status: Ordered Problem List Condition Confirmation Course Effective Dates Status [facility] St atus Informant Presence of intrathecal baclofen pump Confirmed Active Lower extremity edema Confirmed Active Obese class II Confirmed Active Vital Signs Most recent to oldest [Reference Range]: 1 Height 178 cm (04/20/23 2:43 PM) Oxygen Saturation [94-100 %] 96 % (04/20/23 2:43 PM) Pulse Rate [55-90 bpm] 59 bpm (04/20/23 2:43 PM) Blood Pressure [90-138/55-84 mm Hg] 106/ 57mm Hg (04/20/23 2:43 PM) Mode of Delivery (Oxygen) Room air (04/20/23 2:43 PM) Blood pressure sites Arm, left (04/20/23 2:43 PM) Patient Care team information Care Team Personnel Name: Danny Whittaker RN Position: [facility] ED RN W/OE and Tasks Member Role: Primary Care Nurse Name: Aba Linares DO Position: Reference Physician Member Role: PCP Address: Address: [address] [place] [address] [place] [address]- Name: Tesha Kirkpatrick RN Position: S RN Member Role: Primary Care Nurse Name: Vera Patircia RN Position: [facility] AMB Nurse Member Role: Primary Care Nurse Name: Genevieve Orozco RN Position: [facility] RN Member Role: Primary Care Nurse Care Team Related Persons Name: CIRO TORREZ Address: [address] [address] Name: FARNAZ HANNAH
[2023-06-07 23:57] VITALS: BP 113/50; PULSE 57; RESP 14; TEMP 36.6; O2SAT 98
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
[2023-06-08 03:01] VITALS: BP 114/46; PULSE 56; RESP 18; TEMP 36.6; O2SAT 97
--- NOTE | 2023-06-08 06:34 | PC.NURSE ---
Pts , Gretchen, called inquiring when will pt return home as she was expecting him to be home at 0600. Gretchen updated that there is no care aide available at this time for pt to return home. Gretchen reports will call back later for an update.
--- NOTE | 2023-06-08 07:20 | PC.NURSE ---
Alert and oriented, provided with fluids per patients request. Arms repositioned, patient denies pain or discomfort
--- NOTE | 2023-06-08 07:39 | PC.NURSE ---
Spoke with Mallory who stated she is just waiting for a return call from [employer] before patient will be able to return home. States plan is to have 2 life enrichment director in the home for the next few days to make sure `s behavior is appropriate. Mallory to call back once she speaks to [employer].
--- NOTE | 2023-06-08 08:25 | PC.NURSE ---
Turned and repositioned, incontinence care provided. Suprapubic flushed with 30cc normal saline, flushed well.
[2023-06-08 08:27] VITALS: BP 99/54; RESP 20; O2SAT 97
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
--- NOTE | 2023-06-08 10:34 | PC.NURSE ---
Report called to overflow
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
--- NOTE | 2023-06-08 13:58 | PC.NURSE ---
pt with nad, no complaints, pt has a summer analyst here with him and another came as well, ate lunch, has his meds with him and he states he took his own meds in the ED and has them with him/ with the summer analyst, I contacted pharmacy and they will do his med rec
[2023-06-08 14:00] VITALS: BP 116/58; PULSE 72; RESP 16; TEMP 36.6; O2SAT 96
--- NOTE | 2023-06-08 17:00 | PHA.MEDREC ---
Pharmacy Consult ? Medication Reconciliation Pharmacy has completed the medication reconciliation.Patient or PARTS SALES ASSOCIATE unable to confirm medications. Spoke with Mallory (agency) She texted PARTS SALES ASSOCIATE who in turn texted it to me.
--- NOTE | 2023-06-08 17:30 | PC.NURSE ---
assumed care of pt at 1500. DIAGRAMMER AND SEAMER at bedside assisting pt with bed bath. suprapubic cath in place draining clear yellow urine with some sediment noted. respirations even and unlabored, pt offering no complaints, safety precautions remain in place, encoouraged to call for assistance.
[2023-06-08 21:20] VITALS: BP 135/64; PULSE 86; RESP 18; TEMP 36.6; O2SAT 96
--- NOTE | 2023-06-08 22:16 | PC.NURSE ---
Assumed care of pt at 19:00: Pt A+Ox4, quadriplegic. VSS, breathing non-labored, afebrile. Denies pain. suprapubic catheter in place draining CYU. Phone call received from Mallory Mcgarry who identified herself as the stone planer [employer] (pt's DIRECT SERVICE PROFESSIONAL company) [phone]. Mallory was adamant about patient returning home tonight, and ensured that he would have camp recreation specialist available at home. Caller made aware by this RN that the physician on-duty would be notified as well as ED charge nurse/supervisor remelt. EMIR Vanegas also arrived at [facility] to meet with patient, and made aware of situation/given Mallory's contact info. Pt in bed, watching TV and eating snacks, in overall good spirits. call sanchez within reach. Will cont with plan of care. safety and airborne/contact precautions remain in place.
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
[2023-06-09 05:53] VITALS: BP 125/57; PULSE 63; TEMP 36.4; O2SAT 94
== END 2023-06-09 12:46 | disposition home or self-care (01) ==
PROVIDERS: Emergency Provider Internal Medicine; PCP Internal Medicine
DX: G82.20 Paraplegia, unspecified (principal); I10 Essential (primary) hypertension; I48.0 Paroxysmal atrial fibrillation; Z79.01 Long term (current) use of anticoagulants; Z79.899 Other long term (current) drug therapy
CPT/HCPCS: 99284; 99285

== ENCOUNTER 2023-07-03 14:15 | Outpatient (AMB) | payer OTHER, SELFPAY ==
[2023-07-03 14:23] VITALS: BMI 33.2
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
== END 2023-07-03 15:02 | disposition home or self-care (01) ==
PROVIDERS: PCP Internal Medicine; Visit Provider Hospitalist
DX: G47.33 Obstructive sleep apnea (adult) (pediatric) (principal); Z99.89 Dependence on other enabling machines and devices; G82.20 Paraplegia, unspecified; J98.4 Other disorders of lung; G70.9 Myoneural disorder, unspecified; J96.12 Chronic respiratory failure with hypercapnia
CPT/HCPCS: 99215

== ENCOUNTER → 2023-07-03 14:15 | Outpatient (BNVA) | payer OTHER, SELFPAY | PROVIDERS: PCP Internal Medicine; Visit Provider Hospitalist | DX: G47.33 Obstructive sleep apnea (adult) (pediatric) (principal); G82.20 Paraplegia, unspecified; J98.4 Other disorders of lung; G70.9 Myoneural disorder, unspecified; J96.12 Chronic respiratory failure with hypercapnia; Z99.89 Dependence on other enabling machines and devices | CPT/HCPCS: 99212 ==

== ENCOUNTER 2023-07-23 22:36 | Emergency (ER) | payer OTHER, SELFPAY ==
--- NOTE | ~2023-07-23 | XR_ITS ---
EXAMINATION: XR ABDOMEN KUB CLINICAL INDICATION: No bowel movement. Discomfort. COMPARISON: CT dated 08/22/2019 TECHNIQUE: AP view of the abdomen. FINDINGS: Moderate to large volume of stool is present in the colon. Nondilated bowel gas pattern. No gross evidence of free air, though sensitivity is limited on the supine images. Calcific atherosclerosis is present in the iliac arteries. Phleboliths are present in the pelvis. Bones are osteopenic. Degenerative spondylosis is noted in the lumbar spine. 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 XR/XR KUB IMPRESSION: Moderate to large volume of stool in the colon. Nondilated bowel gas pattern.
[2023-07-23 22:40] VITALS: BP 110/60; PULSE 62; O2SAT 100; BMI 35.2
[2023-07-23 22:52] VITALS: BP 120/63; PULSE 65; RESP 19; TEMP 37; O2SAT 100
--- NOTE | 2023-07-23 23:23 | ED.MALEGU ---
HPI - Male Genitourinary General Chief complaint: Urogenital-Male Stated complaint: NO URINE OUTPUT SINCE 2PM,NO BM X3 DAYS Time Seen by Provider: 07/23/23 22:41 Source: patient and other Mode of arrival: EMS History of Present Illness HPI Narrative: 72-year-old male who is paraplegic and comes in from home with concerns that his Gregg catheter stopped draining since 1400, it was recently replaced on Monday of this past week, he denies any associated fever or chills and denies any nausea or vomiting. Patient also states that he has not had a recent bowel movement and is concerned because his healthcare providers are not allowing him to take MiraLax. Related Data Home Medications Medication Instructions Recorded Confirmed CPAP (CPAP Machine/Device) 07/19/21 07/21/22 apixaban 5 mg tablet (Eliquis) 5 mg PO Q12H 07/19/21 06/08/23 ascorbic acid (vitamin C) 250 mg 250 mg PO BID 07/19/21 06/08/23 tablet pantoprazole 40 mg tablet,delayed 40 mg PO BID 07/19/21 06/08/23 release baclofen 2,000 mcg/mL intrathecal 207 mcg intrathecal DAILY 10/15/21 06/08/23 solution gabapentin 300 mg capsule 300 mg PO TID 10/15/21 06/08/23 methenamine hippurate 1 gram tablet 1 g PO BID 01/27/22 06/08/23 docusate sodium 100 mg capsule 100 mg PO BID PRN constipation 06/08/23 06/08/23 escitalopram oxalate 10 mg tablet 10 mg PO DAILY 06/08/23 06/08/23 multivitamin 1 tab PO DAILY 06/08/23 06/08/23 baclofen 10 mg tablet 10 mg PO TID 07/03/23 melatonin 10 mg tablet,extended 10 mg PO BEDTIME 07/03/23 release Previous Rx's Medication Instructions Recorded azithromycin 250 mg tablet 250 mg PO 3XW 28 days #12 tabs 07/03/23 Allergies Allergy/AdvReac Type Severity Reaction Status Date / Time No Known Allergies Allergy Verified 07/03/23 14:24 [No Known Allergies*] Review of Systems Review of Systems: Pertinent positives and negatives as stated in HPI PMFSH Past Medical History Source: nursing notes reviewed Medical History Chronic hypercapnic respiratory failure Restrictive lung mechanics due to neuromuscular disease Paraplegia LATANYA on CPAP CAD (coronary artery disease) Paroxysmal atrial fibrillation HTN (hypertension) Surgical History History of carpal tunnel release Hx of colonoscopy Hx of rotator cuff surgery History of hip surgery Family History Family History Father Diabetes HTN (hypertension) CVD (cardiovascular disease) Mother CVD (cardiovascular disease) Diabetes HTN (hypertension) Brother CVD (cardiovascular disease) Diabetes HTN (hypertension) Social History Social History Alcohol intake: former Patient Tobacco Use Status: Former Tobacco user Tobacco use type: Cigarette Years Smoked: 20 years Advance Directives: No Advance Directives Information Provided: No Physical Exam Vital Signs: Vital Signs: Last Vital Signs Temp 98.6 F 07/23/23 22:52 Pulse 65 07/23/23 22:52 Resp 19 07/23/23 22:52 BP 120/63 07/23/23 22:52 Pulse Ox 100 07/23/23 22:52 O2 Del Method Room Air 07/23/23 22:52 BMI result Body Mass Index 35.2 VITAL SIGNS: Reviewed. GENERAL: Well developed, well nourished, in no acute distress. HEAD: Normocephalic/atraumatic EYES: PERRLA, EOMI EARS: Ext canals without abnormality NOSE: Nares patent bilateral OROPHARYNX: no oral lesions noted, posterior pharynx clear NECK: Supple, no adenopathy LUNGS: Normal breath sounds. No adventitious sounds or accessory muscle use. SpO2<100> CARDIOVASCULAR: Regular rate and rhythm without noted murmurs ABDOMEN: Soft, non-tender, non-distended with bowel sounds. : Indwelling suprapubic catheter MUSCULOSKELETAL: No tenderness, deformities, or effusions noted on gross inspection. EXTREMITIES: No cyanosis, clubbing or edema. SKIN: Inspection of the skin reveals no rashes, NEUROLOGIC: Alert and oriented x 4. Significant contractures in upper extremities. Medical Decision Making Medical Decision Making MDM Narrative: 72-year-old male with history and clinical presentation of frequent blockages in his suprapubic catheter, will attempt to irrigate and if unsuccessful will exchange catheter as he has a new catheter with him. Will also obtain a KUB to assess the constipation though patient has no other additional complaints and will also provide a dose of MiraLax. Attempts to irrigate the old catheter unsuccessful and so suprapubic catheter was exchanged with provided catheter by the patient. There was immediate urine release, patient tolerated procedure well. KUB does demonstrate moderate to large volume of stool, he did receive MiraLax. Patient is otherwise discharged back to home. Differential Diagnosis Differential Diagnoses: The differential diagnosis associated with the presentation includes Please see the discussion above Admission/Observation Consideration of admission/observation: Escalation of care including admission/observation considered Please see the discussion above Radiology Impression Discussion of test interpretation with radiology: I have reviewed the radiologist's reading. Radiologist Impression: Please see the discussion above External Record Review External record reviewed: Outpatient record and Prior outpatient labs Procedures Catheter Insertion (Urinary) Date of insertion: 07/24/23 Time of insertion: 00:30 Reason for placing indwelling catheter: Urinary obstruction Bladder scan/ultrasound used before catheterization: Yes Estimated amount of urine (mLs): 300 Antiseptic solution prep: Povidone-Iodine Topical anesthesia used: No Catheter type/location: Suprapubic Size (Amharic): 20 Catheter balloon size (mL): 30 Catheter balloon amount: 30 Results: successfully catheterized-immediate flow Procedure performed: without complications Critical Care Time Critical Care Time Critical Care Time: Yes Total Critical Care Time: 30 Attestation: I personally attest to this time spent taking care of the patient. Discharge Plan Discharge Clinical Impression: Complication, blocked suprapubic catheter, Constipation Instructions: Constipation (ED), High Fiber Diet (ED), How to Care for Your Suprapubic Catheter (DC), Fleet Enema (ED) Additional Instructions: 1. Resume all home medications as prescribed. I do recommend [id number] MiraLax for any additional symptoms of constipation. 2. Follow-up with primary care doctor on Monday morning. Return to the ER for any worsening symptoms. Prescriptions: No Action multivitamin [Multi-Vitamin] Tablet 1 tab PO DAILY docusate sodium 100 mg capsule 100 mg PO BID PRN (Reason: constipation) escitalopram oxalate 10 mg tablet 10 mg PO DAILY pantoprazole 40 mg tablet,delayed release (DR/EC) 40 mg PO BID Eliquis 5 mg tablet 5 mg PO Q12H (DME) CPAP Machine/Device Device See Rx Instructions .Route Rx Instructions: As directed ascorbic acid (vitamin C) 250 mg tablet 250 mg PO BID gabapentin 300 mg capsule 300 mg PO TID baclofen 2,000 mcg/mL solution 207 mcg intrathecal DAILY Rx Instructions: administer over 24 hrs methenamine hippurate 1 gram tablet 1 g PO BID melatonin 10 mg tablet extended release 10 mg PO BEDTIME baclofen 10 mg tablet 10 mg PO TID azithromycin 250 mg tablet 250 mg PO 3XW 28 Days Qty: 12 1RF Rx Instructions: Take 1 tablet on Monday/Monday/Monday Referrals: Aba Linares MD [Primary Care Provider] -
--- NOTE | 2023-07-24 00:34 | PC.NURSE ---
Addendum entered by Avani Cobos 07/24/23 00:34: A large amount of urine pouring out of catheter insertion site once removed. Pt reports immediate relief of discomfort. Original Note: MD Chicas replacing suprapubic catheter. geospatial technician at bedside for new [place]io tubing/bag. Plan for DC home.
[2023-07-24] MEDS: polyethylene glycoL 3350 17 GM POWD.PACK PO (01:05)
--- NOTE | 2023-07-24 01:30 | MHC.EDTECH ---
call out to leslie at 0130 to book transport for pt, estimated eta given was 0200
[2023-07-24 02:30] VITALS: BP 124/60; PULSE 72; RESP 16; TEMP 36.9; O2SAT 100
== END 2023-07-24 02:30 | disposition home or self-care (01) ==
PROVIDERS: Emergency Provider Student in an Organized Health Care Education/Training Program; PCP Internal Medicine
DX: T83.090A Other mechanical complication of cystostomy catheter, initial encounter (principal); K59.00 Constipation, unspecified; N13.9 Obstructive and reflux uropathy, unspecified; G82.20 Paraplegia, unspecified; I10 Essential (primary) hypertension; Y84.6 Urinary catheterization as the cause of abnormal reaction of the patient, or of later complication, without mention of misadventure at the time of the procedure; Y92.9 Unspecified place or not applicable
CPT/HCPCS: 51705; 51798; 74018; 99283

== ENCOUNTER 2023-08-05 08:49 | Emergency (ER) | payer OTHER, SELFPAY ==
[2023-08-05 08:57] VITALS: BP 108/58; PULSE 67; O2SAT 99
--- NOTE | 2023-08-05 08:58 | ED_ITS ---
HPI - Male Genitourinary General Chief complaint: Urogenital-Male Stated complaint: CATHETER IS CLOGGED Time Seen by Provider: 08/05/23 08:52 Source: patient, EMS, RN notes reviewed and old records reviewed Mode of arrival: EMS Limitations: no limitations History of Present Illness HPI Narrative: 72-year-old male with a history of paraplegia since August of 2020 after a spinal cord injury, neurogenic bladder status post suprapubic catheter, LATANYA on CPAP, restrictive lung disease, chronic hypercarbic respiratory failure, HTN, CAD, paroxysmal AFib who presents to the ER for evaluation of a clogged suprapubic catheter. His INDEPENDENT AGENT MUSIC EDUCATION had noticed there was the same amount of urine in the bag from last night till this morning with leaking around the tubing. Patient does not have any pain. Patient has not had any fevers or chills. No abdominal pain. No sediment noted in the urine. He was reportedly here 07/22 for similar complaint and had his catheter changed at that time. MD Complaint: other (Clogged suprapubic catheter with leaking urine) Onset (ago): hour(s) Duration: constant Associated symptoms: Reports denies other symptoms Related Data Home Medications Medication Instructions Recorded Confirmed CPAP (CPAP Machine/Device) 07/19/21 07/21/22 apixaban 5 mg tablet (Eliquis) 5 mg PO Q12H 07/19/21 06/08/23 ascorbic acid (vitamin C) 250 mg 250 mg PO BID 07/19/21 06/08/23 tablet pantoprazole 40 mg tablet,delayed 40 mg PO BID 07/19/21 06/08/23 release baclofen 2,000 mcg/mL intrathecal 207 mcg intrathecal DAILY 10/15/21 06/08/23 solution gabapentin 300 mg capsule 300 mg PO TID 10/15/21 06/08/23 methenamine hippurate 1 gram tablet 1 g PO BID 01/27/22 06/08/23 docusate sodium 100 mg capsule 100 mg PO BID PRN constipation 06/08/23 06/08/23 escitalopram oxalate 10 mg tablet 10 mg PO DAILY 06/08/23 06/08/23 multivitamin 1 tab PO DAILY 06/08/23 06/08/23 baclofen 10 mg tablet 10 mg PO TID 07/03/23 melatonin 10 mg tablet,extended 10 mg PO BEDTIME 07/03/23 release Previous Rx's Medication Instructions Recorded azithromycin 250 mg tablet 250 mg PO 3XW 28 days #12 tabs 07/03/23 Allergies Allergy/AdvReac Type Severity Reaction Status Date / Time No Known Allergies Allergy Verified 07/03/23 14:24 [No Known Allergies*] Review of Systems Review of Systems: Yes all other systems are reviewed and are negative [facility] Past Medical History Medical History Chronic hypercapnic respiratory failure Restrictive lung mechanics due to neuromuscular disease Paraplegia LATANYA on CPAP CAD (coronary artery disease) Paroxysmal atrial fibrillation HTN (hypertension) Surgical History History of carpal tunnel release Hx of colonoscopy Hx of rotator cuff surgery History of hip surgery Family History Family History Father Diabetes HTN (hypertension) CVD (cardiovascular disease) Mother CVD (cardiovascular disease) Diabetes HTN (hypertension) Brother CVD (cardiovascular disease) Diabetes HTN (hypertension) Social History Social History Alcohol intake: former Patient Tobacco Use Status: Former Tobacco user Tobacco use type: Cigarette Years Smoked: 20 years Smoked in Last 30 Days: No Use of substances other than those prescribed or required for medical reasons: No Advance Directives: No Advance Directives Information Provided: No Physical Exam Vital Signs: Vital Signs: Last Vital Signs Temp 98.9 F 08/05/23 09:02 Pulse 60 08/05/23 09:02 Resp 16 08/05/23 09:02 BP 124/47 L 08/05/23 09:02 Pulse Ox 96 08/05/23 09:02 O2 Del Method Room Air 08/05/23 09:02 BMI result Body Mass Index 33.8 Appearance: Alert. Oriented X3. No acute distress. Head: normocephalic, atraumatic. Eyes: Pupils equal, round and reactive to light. ENT: Pharynx normal. No tonsillar swelling or exudate. Neck: Normal inspection. Neck supple. CVS: Normal heart rate and rhythm. Pulses normal. Respiratory: No respiratory distress. Breath sounds normal. Abdomen: Obese Soft and nontender. SPC in place with leaking urine around the i nsertion site. Skin: Skin warm and dry. Normal skin color. Normal skin turgor. No rashes. Extremities: No lower extremity edema. No joint swelling. contracted upper extremities Neuro/psych: Oriented X 3. conversant, mental status at baseline Medications Administered Discontinued Medications Generic Name Dose Route Start Last Admin Trade Name Cristhian PRN Reason Stop Dose Admin Levofloxacin 500 mg 08/05/23 09:12 08/05/23 09:25 Levofloxacin 500 Mg Tablet PO 08/05/23 09:13 500 mg ONCE ONE Administration Medical Decision Making Medical Decision Making [facility] Narrative: 72-year-old male with history of paraplegia and chronic suprapubic catheter presenting for recurrent catheter issues. Has been clogged since midnight with no drainage in the tubing, there was leakage around the insertion site. Unable to flush. Catheter was successfully exchanged with flow of dark but clear urine. Patient has a history of pansensitive Pseudomonas as well as ESBL Klebsiella. He has an appointment with his urologist on Monday. He is afebrile. Will empirically start 3 day course of Levaquin, 1st dose given here in the ER. He will continue until he sees his urologist on Monday. At this time patient is stable for discharge from the ER with Urology follow-up on Monday. Differential Diagnosis Differential Diagnoses: The differential diagnosis associated with the presentation includes catheter associated UTI, dehydration/sedement causing blockage, malpositioned catheter Lab Data [facility] Lab Attestation statement: I reviewed the patient's lab results. Appears infected versus colonized Labs: Lab Results 08/05/23 Range/Units 09:25 Urine Color Other A Urine Appearance Hazy Urine pH 8.0 (5.0-9.0) Ur Specific [place] 1.010 (1.005-1.025) Urine Protein 30 (1+) H (Neg-Trace) mg/dL Urine Glucose (UA) Negative (Negative) mg/dL Urine Ketones Negative (Negative) mg/dL Urine Blood Large (3+) H (Negative) Urine Nitrite Negative (Negative) Ur Leukocyte Esterase Large (3+) H (Negative) Urine RBC >20 H (0-2) /HPF Urine WBC >50 H (0-5) /HPF Ur Squamous Epith Cells 0-2 (0-2) /HPF Urine Bacteria 4+ (None Seen) Hyaline Casts 0-2 (0-2) /LPF Independent Historian Clinical information obtained from an independent historian. History obtained from or confirmed by: EMS External Record Review External record reviewed: Office record, Outpatient record, Prior outpatient labs and Prior outpatient radiology Prescription Management I considered prescription management with: Antibiotic Chronic Conditions Patient?s care impacted by: Other (paraplegia) Procedures Catheter Insertion (Urinary) Date of insertion: 08/05/23 Time of insertion: 09:18 Reason for placing: Yes Reason for placing indwelling catheter: Other (cervical spinal injury resulting in paraplegia) Patient has the following: history of catheter associated urinary tract infection Antiseptic solution prep: Povidone-Iodine Topical anesthesia used: No Catheter type/location: Suprapubic Size (Serbian): 20 Catheter balloon size (mL): 30 Catheter balloon amount: 30 Results: successfully catheterized-immediate flow Procedure performed: without complications Critical Care Time Critical Care Time Critical Care Time: No Discharge Plan Discharge Clinical Impression: Blocked urinary catheter Qualifiers: Encounter type: initial encounter Qualified Code(s): T83.098A - Other me chanical complication of other urinary catheter, initial encounter Patient Disposition: Home, Self-Care Instructions: Catheter-associated Urinary Tract Infection (ED) Additional Instructions: take the prescribed antibiotic tomorrow and Monday. you were given 1st dose today in the ER follow up with your Urologist on Monday for further recommendations If you develop new or worsening symptoms call 911 or come back to the ER for further evaluation. Prescriptions: No Action multivitamin [Multi-Vitamin] Tablet 1 tab PO DAILY docusate sodium 100 mg capsule 100 mg PO BID PRN (Reason: constipation) escitalopram oxalate 10 mg tablet 10 mg PO DAILY pantoprazole 40 mg tablet,delayed release (DR/EC) 40 mg PO BID Eliquis 5 mg tablet 5 mg PO Q12H (DME) CPAP Machine/Device Device See Rx Instructions .Route Rx Instructions: As directed ascorbic acid (vitamin C) 250 mg tablet 250 mg PO BID gabapentin 300 mg capsule 300 mg PO TID baclofen 2,000 mcg/mL solution 207 mcg intrathecal DAILY Rx Instructions: administer over 24 hrs methenamine hippurate 1 gram tablet 1 g PO BID melatonin 10 mg tablet extended release 10 mg PO BEDTIME baclofen 10 mg tablet 10 mg PO TID azithromycin 250 mg tablet 250 mg PO 3XW 28 Days Qty: 12 1RF Rx Instructions: Take 1 tablet on Monday/Monday/Monday
[2023-08-05 09:02] VITALS: BP 124/47; PULSE 60; RESP 16; TEMP 37.2; O2SAT 96; BMI 33.8
[2023-08-05] MEDS: levoFLOXacin 500 MG TABLET PO (09:25)
--- NOTE | 2023-08-05 09:26 | MHC.EDTECH ---
EMS bedding removed from under Pt, Pt cleaned and repositioned. Home brief applied to Pt, per his request, ok per RN.
--- NOTE | 2023-08-05 09:45 | PC.NURSE ---
Patient admitted to ER d/t lack of drainage from suprapubic cath / requesitng change out. Cath switched out with provider, immediate cloudy yellow drainage noted, UA sent from new output
[2023-08-05 09:46] LABS: Appearance Urine Hazy; Color Urine Other; Glucose Urine UA Negative (Negative); Nitrite Urine Negative (Negative); Urine Blood Large (3+) (Negative); Urine Ketones Negative (Negative); Urine Protein 30 (1+) mg/dL (Neg-Trace)
[2023-08-05 09:47] LABS: Leukocyte Esterase Urine Large (3+) (Negative); UMIC TRIGGER UACC YES
--- OUTSIDE RECORDS SUMMARY | 2023-08-05 09:47 | XMS_ITS | Continuity of Care Document ---
Author Name Unknown Organization [facility] Address [address] [place] [id number]- Care Team Providers Care Allergist Name Role Phone Milagros CHUNG Aba Gee Primary Care Physician [phone] Encounter [facility] Date(s): 06/29/23 - 07/06/23 [facility] [address] [place], [place] [address] Attending Physician: Sourav Guadalupe DO Referring Physician: Mitchell CAMACHO, Clare Allergies, Adverse Reactions, Alerts No Known Allergies Medications albuterol 90 mcg/inh inhalation aerosol 2 puffs, Inhalation, 4 times a day, Maintenance, 09/23/20 12:37:00 EDT Start Date: 09/23/20 Status: Ordered atorvastatin 10 mg oral tablet 1 tablet = 10 mg, By Mouth, Daily at bedtime, 0 Refills, Maintenance, 09/09/20 7:49:00 EDT, Tablet Start Date: 09/09/20 Status: Ordered azithromycin 250 mg oral tablet preventive, --Mon, 0 Refills, Maintenance, 07/05/23 14:11:00 EST, Partial fill upon patient request if the prescription is for a schedule II opioid drug. Start Date: 07/05/23 Status: Ordered baclofen 10 mg oral tablet 10 mg, 1, tablet, By Mouth, 3 times a day, PRN, # 270 tablet, Refills 1, Tot. Refills 1, Maintenance, Spasm, 02/09/23 14:14:00 EDT, Route to Pharmacy Electronically, [facility],178, cm, 02/09/23 13:48:00 EDT, Height, 120, kg, 06... Start Date: 02/09/23 Status: Ordered baclofen 10 mg oral tablet 10 mg, 1, tablet, By Mouth, 3 times a day, # 90 tablet, Refills 0, Tot. Refills 0, Maintenance, 05/26/22 15:47:00 EST, Route to Pharmacy Electronically, [facility]/pharmacy #[id number], Partial fill upon patient request if the [...] opioid drug. Start Date: 07/27/21 Status: Ordered escitalopram 10 mg oral tablet 0 Refills, Maintenance, 07/05/23 14:11:00 EST, Partial fill upon patient request if the prescription is for a schedule II opioid drug. Start Date: 07/05/23 Status: Ordered gabapentin 300 mg oral capsule [...] a schedu... Start Date: 08/12/21 Status: Ordered methenamine hippurate 1 gm oral tablet 0 Refills, Maintenance, 07/05/23 14:11:00 EST, Partial fill upon patient request if the prescription is for a schedule II opioid drug. Start Date: 07/05/23 Status: Ordered midodrine 5 mg oral tablet [...] Date: 09/09/20 Status: Ordered Please provide 28/11 ASSISTANT SIGNAL MAINTAINER care and weekly VNA visits for medication management. Please provide 28/11 ASSISTANT SIGNAL MAINTAINER care and weekly VNA visits for medication [...] EDT, Supply Start Date: 08/12/21 Status: Ordered Tylenol 325 mg oral tablet 650 mg, 2, tablet, By Mouth, Every 6 hours, PRN, Refills 0, Maintenance, as needed for mild pain orfever, 09/09/20 7:49:00 EDT Start Date: 09/09/20 Status: Ordered Venelex 788 mg-87 mg/g topical ointment See Instructions, Topically 3 times a day to affected area as needed, # 60 Gm, 6 Refills, Maintenance, 08/21/21 7:56:00 EDT, Ointment, [facility]/pharmacy #[id number], Partial fill upon patient request if the prescription is for a schedule II opioid drug., Topical... Start Date: 08/21/21 Status: Ordered Vitamin C 500 mg oral tablet 1 tablet = 500 mg, By Mouth, Daily, 0 Refills, Maintenance, 07/05/23 14:13:00 EST, Partial fill upon patient request if the prescription is for a schedule II opioid drug. Start Date: 07/05/23 Status: Ordered Problem List Condition Confirmation Course Effective Dates Status Health St atus Informant Anemia 1 Confirmed Active Atrial fibrillation Confirmed Active Spinal cord injury, cervical region Confirmed Active COPD (chronic obstructive pulmonary disease) Confirmed Active Presence of intrathecal baclofen pump Confirmed Active Lower extremity edema Confirmed Active GERD (gastroesophageal reflux disease) Confirmed Active Obese class II Confirmed Active 1Hemoglobin 06/29/23-10 Procedures Procedure Date Related Diagnosis Body Site Status Baclofen pump implant Com pleted Carpal tunnel release-b/l Completed Decompression of cervical spine 1 Completed Inguinal herniorrhaphy Co mpleted Rotator cuff repair-L Com pleted Suprapubic catheter Compl eted 86393 (after SCI) Vital Signs Most recent to oldest [Reference Range]: 1 Height 178 cm (06/29/23 12:00 PM) Oxygen Saturation [94-100 %] 98 % (06/29/23 12:00 PM) Pulse Rate [55-90 bpm] 55 bpm (06/29/23 12:00 PM) Blood Pressure [90-138/55-84 mm Hg] 113/ 63mm Hg (06/29/23 12:00 PM) Respiratory Rate [16-30 br/min] 18 br/mi n (06/29/23 12:00 PM) Mode of Delivery (Oxygen) Room air (06/29/23 12:00 PM) Blood pressure sites Arm, left (06/29/23 12:00 PM) Patient Care team information Care Team Personnel Name: Danny Whittaker RN Position: [facility] ED RN W/OE and Tasks Member Role: Primary Care Nurse Name: Aba Linares DO Position: Reference Physician Member Role: PCP Address: Address: [address] [place] [address] [place] [address]- Name: Tesha Kirkpatrick RN Position: [facility] RN Member Role: Primary Care Nurse Name: Vera Patricia RN Position: [facility] AMB Nurse Member Role: Primary Care Nurse Name: Genevieve Orozco RN Position: [facility] RN Member Role: Primary Care Nurse Care Team Related Persons Name: CIRO TORREZ Address: home [address] [place] [id number] Name: FARNAZ HANNAH
--- OUTSIDE RECORDS SUMMARY | 2023-08-05 09:47 | XMS_ITS | Continuity of Care Document ---
Author Name Unknown Organization [facility] Raymond lalito Address [address] [place] [address] [address] [place] [address]- Care Team Providers Care Cake Puncher Name Role Phone Aba Linares DO Primary Care Physician [phone] Encounter [facility] Date(s): 07/18/23 - 07/25/23 [facility] [address] [place] [address]- Attending Physician: Mitchell CAMACHO, Clare Referring Physician: Aba Linares DO Allergies, Adverse [...] 02/09/23 14:14:00 EDT, Route to Pharmacy Electronically, [facility],178, cm, 02/09/23 13:48:00 EDT, Height, 120, kg, 06... Start Date: 02/09/23 Status: Ordered baclofen 10 mg oral tablet 10 mg, 1, tablet, By Mouth, 3 times a day, # 90 tablet, Refills 0, Tot. Refills 0, Maintenance, 05/26/22 15:47:00 EST, Route to Pharmacy Electronically, [facility]/pharmacy #[id number], Partial fill upon patient request if the [...] 11 Refills, Maintenance, 08/20/21 15:56:00 EDT, Suppository, [facility]/pharmacy #[id number], 180.3, cm, 08/12/21 7:56:00 [...] Refills, Maintenance, 09/17/21 16:24:00 EDT, REC Powder, [facility]/pharmacy #[id number], Partial fill upon patient [...] Date: 09/09/20 Status: Ordered Please provide 28/11 MEDICAL FIELD REPRESENTATIVE care and weekly VNA visits for medication management. Please provide 28/11 MEDICAL FIELD REPRESENTATIVE care and weekly VNA visits for medication [...] 6 Refills, Maintenance, 08/21/21 7:56:00 EDT, Ointment, [facility]/pharmacy #[id number], Partial fill upon patient [...] Active GERD (gastroesophageal reflux disease) Confirmed Active Severe obesity (BMI 35.0-39.9) with comorbidity Confirmed Active 1Hemoglobin 06/29/23-10 Vital Signs Most recent to oldest [Reference Range]: 1 Height 178 cm (07/18/23 1:42 PM) Weight 120 kg (07/18/23 1:42 PM) Body Mass Index [18.5-24.99 kg/m2] 37.87 kg/m2 *>HHI* (07/18/23 1:42 PM) Patient Care team information Care Team Personnel Name: Danny Whittaker RN Position: [facility] ED RN W/OE and Tasks Member Role: Primary Care Nurse Name: Aba Linares DO Position: Reference Physician Member Role: PCP Address: Address: [address] [place] [address] Internal Medicine [place], [place] [address] Name: Tesha Kirkpatrick RN Position: [facility] RN Member Role: Primary Care Nurse Name: Vera Patricia RN Position: [facility] AMB Nurse Member Role: Primary Care Nurse Name: Genevieve Orozco RN Position: [facility] RN Member Role: Primary Care Nurse Care Team Related Persons Name: CIRO TORREZ Address: [address] [address] Name: FARNAZ HANNAH
--- OUTSIDE RECORDS SUMMARY | 2023-08-05 09:47 | XMS_ITS | Continuity of Care Document ---
Author Name Unknown Organization [facility] ter Address [address] [place] [address]- Care Team Providers Care Astronomy Professor Name Role Phone Aba Linares DO Marlen Primary Care Physician [place] [facility]/02/23 - 07/29/[address] [address] Attending Physician: Clare Medrano MD [...] Ordered azithromycin 250 mg oral tablet preventive, , 0 Refills, Maintenance, 07/05/23 14:11:00 EST, Partial fill upon patient request if the prescription is for a schedule II opioid drug. Start Date: 07/05/23 Status: Ordered baclofen 10 mg oral tablet 10 mg, 1, tablet, By Mouth, 3 times a day, PRN, # 270 tablet, Refills 1, Tot. Refills 1, Maintenance, Spasm, 02/09/23 14:14:00 EDT, Route to Pharmacy Electronically, [facility],178, cm, 02/09/23 13:48:00 EDT, Height, 120, kg, 06... Start Date: 02/09/23 Status: Ordered baclofen 10 mg oral tablet 10 mg, 1, tablet, By Mouth, 3 times a day, # 90 tablet, Refills 0, Tot. Refills 0, Maintenance, 05/26/22 15:47:00 EST, Route to Pharmacy Electronically, [facility]/pharmacy #[id number], Partial fill upon patient request if the [...] 11 Refills, Maintenance, 08/20/21 15:56:00 EDT, Suppository, [facility]/pharmacy #[id number], 180.3, cm, 08/12/21 7:56:00 EDT, [...] Refills, Maintenance, 09/17/21 16:24:00 EDT, REC Powder, [facility]/pharmacy #[id number], Partial fill upon patient request [...] Date: 09/09/20 Status: Ordered Please provide 28/11 FREIGHT BROKER care and weekly VNA visits for medication management. Please provide 28/11 FREIGHT BROKER care and weekly VNA visits for medication [...] Refills, Maintenance, 08/21/21 7:56:00 EDT, Ointment, [facility]/pharmacy #[id number], Partial fill upon patient request if the [...] 35.0-39.9) with comorbidity Confirmed Active 1Hemoglobin 06/29/23-10 Patient Care team information Care Team Personnel Name: Danny Whittaker RN Position: [facility] ED RN W/OE and Tasks Member Role: Primary Care Nurse Name: Aba Linares DO Position: Reference Physician Member Role: PCP Address: Address: [address] [place] [address] Internal Medicine [place], [place] [address] Name: Tesha Kirkpatrick RN Position: [facility] RN Member Role: Primary Care Nurse Name: Vera Patricia RN Position: [facility] AMB Nurse Member Role: Primary Care Nurse Name: Genevieve Orozco RN Position: [facility] RN Member Role: Primary Care Nurse Care Team Related Persons Name: CIRO TORREZ Address: [address] [address] Name: FARNAZ HANNAH
--- OUTSIDE RECORDS SUMMARY | 2023-08-05 09:48 | XMS_ITS | Continuity of Care Document ---
Author Name Unknown Organization [facility] Address [address] [place] [address]- Care Team Providers Care Laryngologist Name Role Phone Aba Linares DO Marlen Primary Care Physician [place] [facility] [place] Date(s): 06/29/23 - 07/29/23 [facility] [address] [place], [place] [address] Attending Physician: Sumaya Rod Admitting Physician: AdmSumaya taylor Referring Physician: [email or web address] Allergies, Adverse Reactions, Alerts No Known Allergies [...] 02/09/23 14:14:00 EDT, Route to Pharmacy Electronically, [facility],178, cm, 02/09/23 13:48:00 EDT, Height, 120, kg, 06... Start Date: 02/09/23 Status: Ordered baclofen 10 mg oral tablet 10 mg, 1, tablet, By Mouth, 3 times a day, # 90 tablet, Refills 0, Tot. Refills 0, Maintenance, 05/26/22 15:47:00 EST, Route to Pharmacy Electronically, [facility]/pharmacy #[id number], Partial fill upon patient request if the [...] Maintenance, 08/20/21 15:56:00 EDT, Suppository, [facility]/pharmacy #[id number], 180.3, cm, 08/12/21 7:56:00 EDT, [...] 09/17/21 16:24:00 EDT, REC Powder, [facility]/pharmacy #[id number], Partial fill upon patient request [...] Date: 09/09/20 Status: Ordered Please provide 28/11 COMMERCIAL LOAN ADMINISTRATOR care and weekly VNA visits for medication management. Please provide 28/11 COMMERCIAL LOAN ADMINISTRATOR care and weekly VNA visits for [...] Maintenance, 08/21/21 7:56:00 EDT, Ointment, [facility]/pharmacy #[id number], Partial fill upon patient request if the [...] Team Personnel Name: Danny Whittaker RN Position: [facility] ED RN W/OE and Tasks Member Role: Primary Care Nurse Name: Aba Linares DO Position: Reference Physician Member Role: PCP Address: Address: [address] [place] [address] [place] [address]- Name: Tesha Kirkpatrick RN Position: [facility] RN Member Role: Primary Care Nurse Name: Vera Patricia RN Position: [facility] AMB Nurse Member Role: Primary Care Nurse Name: Genevieve Orozco RN Position: [facility] RN Member Role: Primary Care Nurse Care Team Related Persons Name: CIRO TORREZ Address: [address] [address] Name: FARNAZ HANNAH
[2023-08-05 09:49] LABS: Bacteria Urine 4+ (None Seen); Hyaline Casts Urine 0-2 /LPF (0-2); RBC Urine >20 /HPF (0-2); Squamous Epithelial Cell Urine 0-2 /HPF (0-2); UACC Culture Trigger YES; WBC Urine >50 /HPF (0-5)
--- OUTSIDE RECORDS SUMMARY | 2023-08-05 09:49 | XMS_ITS | Continuity of Care Document ---
Author Name Unknown Organization [facility] ter Address [address] [place] [address]- Care Team Providers Care Trailer Rental Clerk Name Role Phone Aba Linares DO Marlen Primary Care Physician Encounter [facility] Date(s): 07/07/23 - 07/07/[address] [address] Discharge Disposition: A-D/C Home Attending Physician: Clare Medrano MD Admitting Physician: [...] 02/09/23 14:14:00 EDT, Route to Pharmacy Electronically, [facility],178, cm, 02/09/23 13:48:00 EDT, Height, 120, kg, 06... Start Date: 02/09/23 Status: Ordered baclofen 10 mg oral tablet 10 mg, 1, tablet, By Mouth, 3 times a day, # 90 tablet, Refills 0, Tot. Refills 0, Maintenance, 05/26/22 15:47:00 EST, Route to Pharmacy Electronically, [facility]/pharmacy #[id number], Partial fill upon patient request if the [...] 11 Refills, Maintenance, 08/20/21 15:56:00 EDT, Suppository, [facility]/pharmacy #[id number], 180.3, cm, 08/12/21 7:56:00 EDT, Height, [...] Refills, Maintenance, 09/17/21 16:24:00 EDT, REC Powder, [facility]/pharmacy #[id number], Partial fill upon patient request if [...] opioid drug. Start Date: 08/12/21 Status: Ordered oxyCODONE 5 mg oral tablet 5 mg, 1, tablet, By Mouth, Every 6 hours, PRN, for 3 days, Do not drive on this medication., # 10 tablet, Refills 0, Tot. Refills 0, Acute 07/10/23 9:43:00 EST, as needed for pain, 07/07/23 9:43:00 EST, Route to Pharmacy Electronically, [facility]/pharmacy #... Start Date: 07/07/23 Stop Date: 07/10/23 Status: Ordered pantoprazole 40 mg oral delayed release tablet = 40 mg, By Mouth, Daily before breakfast, 0 Refills, Maintenance, 09/09/20 7:49:00 EDT, EC Tablet Start Date: 09/09/20 Status: Ordered Please provide 28/11 MILL REPRESENTATIVE care and weekly VNA visits for medication management. Please provide 28/11 MILL REPRESENTATIVE care and weekly VNA visits for [...] 7:49:00 EDT Start Date: 09/09/20 Status: Ordered Tylenol 325 mg oral tablet 650 mg, 2, tablet, By Mouth, Every 6 hours, PRN, for 7 days, not to exceed 4000 mg/day, # 30 tablet, Refills 0, Tot. Refills 0, Acute 07/14/23 9:43:00 EST, for pain, 07/07/23 9:43:00 EST, Route to Pharmacy Electronically, [facility]/pharmacy #[id number], Partial f... Start Date: 07/07/23 Stop Date: 07/14/23 Status: Ordered Venelex 788 mg-87 mg/g topical ointment See Instructions, Topically 3 times a day to affected area as needed, # 60 Gm, 6 Refills, Maintenance, 08/21/21 7:56:00 EDT, Ointment, [facility]/pharmacy #[id number], Partial fill upon patient request if [...] Obese class II Confirmed Active 1Hemoglobin 06/29/23-10 Vital Signs Most recent to oldest [Reference Range]: 1 2 3 Height 178 cm (07/07/23 5:54 AM) 178 cm (07/05/23 2:20 PM) Oxygen Saturation [94-100 %] 96 % (07/07/23 10:15 AM) 97 % (07/07/23 10:00 AM) 97 % (07/07/23 9:45 AM) Pulse Rate [55-90 bpm] 54 bpm *L* (07/07/23 5:54 AM) Blood Pressure [90-138/55-84 mm Hg] 131/54mm Hg (07/07/23 10:15 AM) 143/50mm Hg *H* (07/07/23 10:00 AM) 146/43mm Hg *H* (07/07/23 9:45 AM) Respiratory Rate [16-30 br/min] 14 br/min *L* (07/07/23 10:15 AM) 16 br/min (07/07/23 10:00 AM) 19 br/min (07/07/23 9:45 AM) Temperature [96.8-100.4 DegF] 99.1 DegF (07/07/23 9:45 AM) 98.1 DegF (07/07/23 5:54 AM) Liters per Minute 6 L/min (07/07/23 9:45 AM) Mode of Delivery (Oxygen) Room air (07/07/23 11:00 AM) Room air (07/07/23 10:15 AM) Simple face mask (07/07/23 9:45 AM) Blood pressure sites Leg, right (07/07/23 9:45 AM) Arm, left (07/07/23 5:54 AM) Temperature Route Temporal (07/07/23 9:45 AM) Temporal (07/07/23 5:54 AM) Note * Alisson Diaz RN: PERFORM Event Display: Discharge/Transfer Note Hospital Authored Date: [id number] Nursing Discharge Note Entered On: 07/07/2023 11:07 EST Performed On: 07/07/2023 11:06 EST by Alisson Diaz RN Nursing Discharge Note 2 Discharge Time : 07/07/2023 11:05 EST Discharge Level of Care at Discharge : Home/Fdc/Foster Care Patient Left Unit Via : Wheelchair Patient Accompanied Off Unit with : Significant other, Responsible adult DC Instructions Provided & Signed by Pt : Yes Patient Understands D/C Instructions : Yes Verbalized Understanding of D/C Plan By : Family, Caregiver Patient Instructions Discharge Signed : Yes Did Pt have Specialty Bed or Wound Vac : No Alisson Diaz RN - 07/07/2023 11:06 EST * Alisson Diaz RN: PERFORM, MODIFY Event Display: Patient Education/Instruction Authored Date: [id number] Surgery Adult Discharge Instructions [address] [address] Name: ADRIAN GUERRERO : 1950?? Visit: 07/07/2023 06:03?? Current Date: 07/07/2023 10:02 ?? Account: [id number]?? Surgery Discharge Instructions We would like to thank you for allowing us to assist you with your healthcare needs. The following includes patient education materials and information regarding your injury/illness. Our entire staffstrives to provide an excellent experience for our patients and their families. PLEASE ENSURE YOU FOLLOW-UP PER THE INSTRUCTIONS BELOW! ?? YOUR OPINION IS IMPORTANT TO US! Please complete the survey you may receive by mail or email. Your feedback will be used to make improvements to the healthcare experiences of our patients and their families. Surveys are administered by [employer] ?? If further treatment with your primary care physician or another doctor is recommended, it is important for you to keep the appointment. Call your primary care physician or return to the Emergency Department immediately if your condition worsens, fails to improve, or new symptoms develop. If you need to find a doctor, you can call [facility] for a referral at [phone] or toll free at [phone]) or log in to [email or web address].. ?? [facility], in keeping with [facility] guidance, no longer requires face masks for staff, patientsor visitors in most situations. Similiar to time spent indoors at other locations, there is the chance that you were exposed to repiratory viruses during your time with us (such as flu or COVID-19). If you develop symptoms concerning for a viral respiratory infection, please seek testing (and treatment if indicated) from your medical provider or home test kit. ?? You can view and manage your care through the patient portal or by using a health care joshua of your choosing. [employer] is a website that allows you to securely view your medical information including your hospital discharge summary, office visit summaries, medications and follow-up visits. You can also request appointments, renew medications, and request access to your medical information using a health care joshua of your choosing, or just ask a question. You are entitled to know the individuals who participated in your treatment. This information is available within your medical record and will be provided upon your request. You can enroll at [email or web address] or register d uring your next office visit. You have been discharged from [facility], Patient Care Unit: [facility]??. If you have any questions regarding these instructions after you leave, please call us and we will be happy to assist you. [facility] Your Care Team Attending Physician Clare Medrano MD?? Consulting Providers Eleazar CAMACHO, Delmy Jenkins?? Discharging Providers Jeyson CAMACHO, Cindy Reason for Admission TETRAPLEGIACS DS Primary Care Provider Milagros DO, Aba Gee? Advance Directive Health Care Proxy on File Yes - Health Care Proxy Yes - MOLST What to do next Instructions From Your Doctor ?? Orders?? Unit Discharge Criteria Met, ??07/07/23 9:42:00 EST?? Prescriptions??, ??07/07/23 9:42:00 EST?? Instructions from your Care Team Elevate arm with pillows while lying and sitting No lifting with that hand Keep splint on for 4 weeks, keep clean and dry Follow-up as scheduled Pain meds sent??to home pharmacy You may restart all meds from home, including Xarelto Call MD office if you have questions or concerns Scheduled Follow-Up Appointments Monday 1:40 PM EDT ?? With: Clare Medrano MD Where: [facility] Plastic Surgery [address] [place] [id number]- Status: Pending 2023 2:30 PM EDT ?? With: Adrian Garcia MD Where: [facility] [address] [facility] [address] [place] [address]- Status: Pending You Need to Schedule the Following Appointments Follow Up with??Clare Medrano Where: [address] [place] [address] [address] [facility] [place] [address]- Business (1) Follow Up with??Aba Linares DO When:??In 0 days Where: [address] [place] [address] [place] [address]- Business (1) Discharge Medications ADRIAN GUERRERO :1950 Visit Date:07/07/2023 Medications: Please continue your medications until treatment is completed or stopped by your provider. You may resume your daily prescription medications. Discuss any questions related to medications with your provider. What How Much When Why Instructions Next Dose New Oxycodone (oxyCODONE 5 mg oral tablet) 1 tab(s) Oral Every 6 hours as needed for as needed for pain Duration: [address] on this medication. ?? Pickup at [facility]/pharmacy #[id number] Changed Acetaminophen (Tylenol 325 mg oral tablet) 2 tab(s) Oral Every 6 hours as needed for as needed for mild pain or fever Changed Acetaminophen (Tylenol 325 mg oral tablet) 2 tab(s) Oral Every 6 hours as needed for for pain Duration: 7 Days not to exceed 4000 mg/ day ?? Pickup at [facility]/pharmacy #0373 Unchanged Al Hydroxide/ Mg Hydroxide/ Simethicone (Maalox Plus Liquid) 30 Milliliter Oral Every 4 hours as needed for Dyspepsia Unchanged Albuterol (albuterol 90 mcg/ inh inhalation aerosol) 2 puff(s) Inhalation 4 times a day Unchanged apixaban (Eliquis Starter Pack 5 mg oral tablet) 1 tab(s) Oral Twice a day Unchanged Ascorbic Acid (Vitamin C 500 mg oral tablet) 1 tab(s) Oral Daily Unchanged Atorvastatin (atorvastatin 10 mg oral tablet) 1 tab(s) Oral Daily at Bedtime Unchanged Azithromycin (azithromycin 250 mg oral tablet) preventive, --Mon ?? Unchanged Baclofen (baclofen 10 mg oral tablet) 1 tab(s) Oral 3 times a day Unchanged Baclofen (baclofen 10 mg oral tablet) 1 tab(s) Oral 3 times a day as needed for Spasm Unchanged Balsam [place] Oil Topical (Venelex 788 mg-87 mg/ g topical ointment) See instructions Topically 3 times a day to affected area as needed ?? Unchanged Bisacodyl (bisacodyl 10 mg rectal suppository) 1 suppository(ies) Per rectum Every 48 hours Unchanged Bisacodyl (Magic Bullet 10 mg rectal suppository) 1 suppository(ies) Per rectum Daily Daily afer dinner. ?? Unchanged Docusate (docusate sodium 100 mg oral capsule) 1 capsule Oral Twice a day as needed for for constipation Unchanged Durable Medical Equipment (Bedside Table with Wheels) See instructions Dx: tetraplegia ?? Unchanged Durable Medical Equipment (Bilateral Class I (20-30mmHg) Knee-high Stockings) See instructions Lower extremity edema Dx: Dependent edema ?Use daily. On in a.m. off at bedtime ?? Unchanged Durable Medical Equipment (Bilateral Wrist hand orthoses) See instructions Dx: Tetraplegia ?? Unchanged Durable Medical Equipment (Manual Cheryl lift with scale attachment) See instructions Dx: Tetraplegia ?? Unchanged Durable Medical Equipment (Reusable underpads) See instructions Dx: Tetraplegia ?? Unchanged Durable Medical Equipment (Right UE combination Elbow / hand orthosis with progressive elbow extension lock) See instructions Dx: C5 Tetraplegia. ?? Unchanged Escitalopram (escitalopram 10 mg oral tablet) Unchanged Gabapentin (gabapentin 300 mg oral capsule) 1 capsule Oral Twice a day 9 am and 3 pm ?? Unchanged Gabapentin (gabapentin 400 mg oral capsule) 1 capsule Oral Daily at Bedtime Unchanged Lidocaine Topical (lidocaine 5% topical film) 1 patch(es) Topically Daily in the morning apply to right shoulder; remove at bedtime after 12 hours ?? Unchanged Melatonin (melatonin 3 mg oral tablet) 1 tab(s) Oral Daily at Bedtime Unchanged Methenamine (methenamine hippurate 1 gm oral tablet) Unchanged Midodrine (midodrine 5 mg oral tablet) 1 tab(s) Oral Twice a day 9 am and 3 pm ?? Unchanged Miscellaneous Rx (Please provide 24/ MILL REPRESENTATIVE care and weekly VNA visits for medication management.) See instructions Dx: Tetraplegia ?? Unchanged Multivitamin With Minerals 1 tab(s) Oral Daily Unchanged onabotulinumtoxinA (Botox 100 units injection) See instructions 200 units total to right elbow flexors +/ - shoulder. ?? Unchanged Pantoprazole (pantoprazole 40 mg oral delayed release tablet) 40 Milligram Oral Daily before breakfast Unchanged PEG Electrolyte Solution (MiraLax) 17 gram Oral Daily Unchanged Polyethylene Glycol 3350 (MiraLax oral powder for reconstitution) 17 gram Oral Daily as needed for Constipation dissolve in water before taking ?? Unchanged Psyllium (Metamucil 400 mg oral capsule) 5 capsule Oral 4 times a day as needed for as needed for constipation with at least 8 ounces of water ?? Unchanged Simethicone (Mylanta Gas) 80 Milligram 3 times a day after meals and bedtime Pharmacy Information [facility]/pharmacy #0373: [address] [place], [place] [id number] [phone] Allergies (NKA means No Known Allergies) NKA Valuables and Belongings I fully understand and agree that [facility] accepts no responsibility for all my personal property including clothing, toilet articles, radios, jewelry, dentures, hearing aids, rings, money, or any other property that is in my possession or is brought to me after admission. I understand certain valuables may be placed in a hospital safe for a short period of time. I understand that the hospital is not liable for loss or damage due to accident, fire, or other natural occurrence while said property is in the safe. I accept full responsibility for any personal property that I keep with me, and will not hold the hospital responsible in case of loss or disappearance. I acknowledge that i have been encouraged to send valuables and belongings home. ?? Review of Valuable and Belonging List: With patient Date for Pt to Sign Valuables/Belongings: 07/07/23 06:55:00 ?? Common Emergency Awareness Tips IS IT A STROKE? Act FAST and Check for these signs: FACE Does the face look uneven? ARM Does one arm drift down? SPEECH Does their speech sound strange? TIME Call at any sign of stroke ?? Heart Attack Signs Chest discomfort: Most heart attacks involve discomfort in the center of the chest and lasts more than a few minutes, or goes away and comes back. It can feel like uncomfortable pressure, squeezing, fullness or pain. Discomfort in upper body: Symptoms can include pain or discomfort in one or both arms, back, neck, jaw or stomach. Shortness of breath: With or without discomfort. Other signs: Breaking out in a cold sweat, nausea, or lightheaded. Remember, MINUTES DO MATTER. If you experience any of these heart attack warning signs, call to get immediate medical attention! ?? Smoking can increase your chances of developing chronic health problems and can cause harmful effects to other family members in your house. If you smoke, you are strongly encouraged to quit. Please call [facility] Link at [phone] or [phone] ([phone]) or log in to [email or web address] for referrals to smoking cessation programs. ?? The National Suicide Prevention Hotline is available 28/11 if you or someone you know needs to find a reason to keep living. By calling 4-268-747-suot (2762) you'll be connected to a skilled, trained counselor at a crisis center in your area. SURGERY DISCHARGE INSTRUCTIONS SIGNATURE PAGE ADRIAN GUERRERO Location:[facility] Registration Date and Time:07/07/2023 06:03 EST Primary Care Physician: Aba Linares DO, Attending Physician: Clare Medrano MD, I LAILASEGUNDOLoretta ADRIAN, have received the above patient education materials/instructions and have verbalized understanding. If ambulance or transport services are being used I further acknowledge being given a choice of service. ?? If you need to contact me, please call me at this number: CIS . Patient/Circus Artist Name: Ciro Guerrero Patient/Circus Artist Signature: Relationship to Patient: Wife Witness Name/Signature: Date: 07/07/2023 * Barlar RN, Alisson: PERFORM, SIGN, VERIFY Event Display: Patient Education Handout Authored Date: [id number] * Alisson Diaz RN: PERFORM Event Display: Patient Education Leaflets Authored Date: [id number] Surgery Medical Daystay Surgical Overnight Discharge Instructions ?? 295 Medical Daystay/Surgical Overnight Discharge Instructions ? Since your coordination and judgment may be altered by medication and/or anesthesia, a responsible adult must drive you home from the hospital. ? If you have received medication for pain or sedation while under our care, you should not drive, operate machinery, drink alcohol, or sign any legal documents for 24 hours.?? You should have someone with you at home tonight. ? Remain at home the day of discharge.?? You may be up and about unless otherwise instructed by your physician. ? You may resume your daily prescription medication schedule.?? Any depressant medication should be avoided for 24 hours unless otherwise instructed by your surgeon or anesthesiologist. ? Call your physician for a follow-up appointment.? If you experience unusual or severe pain not relied by your pain medication, excessive bleedingor drainage, persistent nausea and vomiting, excessive swelling or redness, foul odor from incisionsite or fever over 100.6F, you need to call your physician. ? A follow-up phone call by a nurse will be made the day after your procedure.?? If you have stayed with us over night, you will not be receiving a follow-up phone call. ? Nausea and vomiting are a common side effect of prescription pain medication.?? We recommend that pills are not taken on an empty stomach.?? While taking any prescription pain medication you should not drive or drink alcohol. ? Patient Care team information Care Team Personnel Name: Danny Whittaker RN Position: [facility] ED RN W/OE and Tasks Member Role: Primary Care Nurse Name: Aba Linares DO Position: Reference Physician Member Role: PCP Address: Address: [address] [place] [address] [place] [address]- Name: Tesha Kirkpatrick RN Position: [facility] RN Member Role: Primary Care Nurse Name: Vera Patricia RN Position: [facility] SURINDER Nurse Member Role: Primary Care Nurse Name: Genevieve Orozco RN Position: [facility] RN Member Role: Primary Care Nurse Care Team Related Persons Name: CIRO GUERRERO Address: [address] [address] Name: FARNAZ HANNAH
--- OUTSIDE RECORDS SUMMARY | 2023-08-05 09:49 | XMS_ITS | Continuity of Care Document ---
Author Name Unknown Organization [facility] [place] [facility] Address [address] [place] [id number]- Care Team Providers Care Director Clinical Operations Name Role Phone Aba Linares DO Primary Care Phys[id number] Date[facility]s): 06/13/23 - 06/20/23 [facility] [address] [place] [id number]- Attending Physician: Amanuel CAMACHO, Man Ocampo Referring Physician: Aba Linares DO Allergies, Adverse [...] 02/09/23 14:14:00 EDT, Route to Pharmacy Electronically, [facility],178, cm, 02/09/23 13:48:00 EDT, Height, 120, kg, 06... Start Date: 02/09/23 Status: Ordered baclofen 10 mg oral tablet 10 mg, 1, tablet, By Mouth, 3 times a day, # 90 tablet, Refills 0, Tot. Refills 0, Maintenance, 05/26/22 15:47:00 EST, Route to Pharmacy Electronically, [facility]/pharmacy #[id number], Partial fill upon patient request if the [...] 11 Refills, Maintenance, 08/20/21 15:56:00 EDT, Suppository, [facility]/pharmacy #[id number], 180.3, cm, 08/12/21 7:56:00 EDT, [...] Refills, Maintenance, 09/17/21 16:24:00 EDT, REC Powder, [facility]/pharmacy #[id number], Partial fill upon patient request [...] Date: 09/09/20 Status: Ordered Please provide 28/11 MULE RIDER care and weekly VNA visits for medication management. Please provide 28/11 MULE RIDER care and weekly VNA visits for medication [...] Refills, Maintenance, 08/21/21 7:56:00 EDT, Ointment, [id number], Partial fill upon patient request if the prescription is for a schedule II opioid drug., Topical... Start Date: 08/21/21 Status: Ordered Problem List Condition Confirmation Course Effective Dates Status Health St atus Informant Presence of intrathecal baclofen pump Confirmed Active Lower extremity edema Confirmed Active Obese class II Confirmed Active Vital Signs Most recent to oldest [Reference Range]: 1 Height 178 cm (06/13/23 3:41 PM) Patient Care team information Care Team Personnel Name: Danny Whittaker RN Position: [facility] ED RN W/OE and Tasks Member Role: Primary Care Nurse Name: Aba Linares DO Position: Reference Physician Member Role: PCP Address: Address: [address] [place] [address] Internal Medicine [place], [place] [address] Name: Tesha Kirkpatrick RN Position: S RN Member Role: Primary Care Nurse Name: Vera Patricia RN Position: [facility] AMB Nurse Member Role: Primary Care Nurse Name: Genevieve Orozco RN Position: [facility] RN Member Role: Primary Care Nurse Care Team Related Persons Name: CIRO TORREZ Address: [address] [address] Name: FARNAZ HANNAH
--- OUTSIDE RECORDS SUMMARY | 2023-08-05 09:49 | XMS_ITS | Continuity of Care Document ---
Author Name Unknown Organization [facility] Address [address] [address]- Care Team Providers Care Quick Sketch Artist Name Role Phone Aba Linares DO Marlen Primary Care Physician [phone] Encounter [facility] [place] Date(s): 06/22/23 - 07/22/23 [facility] [address] [place] [address]- Allergies, Adverse Reactions, Alerts No Known Allergies Medications albuterol 90 mcg/inh inhalation aerosol 2 puffs, Inhalation, 4 times a day, Maintenance, 09/23/20 12:37:00 EDT Start Date: 09/23/20 Status: Ordered atorvastatin 10 mg oral tablet 1 tablet = 10 mg, By Mouth, Daily at bedtime, 0 Refills, Maintenance, 09/09/20 7:49:00 EDT, Tablet Start Date: 09/09/20 Status: Ordered azithromycin 250 mg oral tablet preventive, -Mon, 0 Refills, Maintenance, 07/05/23 14:11:00 EST, Partial fill upon patient request if the prescription is for a schedule II opioid drug. Start Date: 07/05/23 Status: Ordered baclofen 10 mg oral tablet 10 mg, 1, tablet, By Mouth, 3 times a day, PRN, # 270 tablet, Refills 1, Tot. Refills 1, Maintenance, Spasm, 02/09/23 14:14:00 EDT, Route to Pharmacy Electronically, [facility],178, cm, 02/09/23 13:48:00 EDT, Height, 120, kg, 06... Start Date: 02/09/23 Status: Ordered baclofen 10 mg oral tablet 10 mg, 1, tablet, By Mouth, 3 times a day, # 90 tablet, Refills 0, Tot. Refills 0, Maintenance, 05/26/22 15:47:00 EST, Route to Pharmacy Electronically, [facility]/pharmacy #[id number], Partial fill upon patient request if the [...] Date: 09/09/20 Status: Ordered Please provide 28/11 CEMETERY LABORER care and weekly VNA visits for medication management. Please provide 28/11 CEMETERY LABORER care and weekly VNA visits for medication [...] 08/21/21 7:56:00 EDT, Ointment, [facility]/pharmacy #[id number], Partial fill upon patient request if the [...] Reference Physician Member Role: PCP Address: Address: [address] [place] [address] Internal Medicine [place], [place] [address] Name: Tesha Kirkpatrick RN Position: [facility] RN Member Role: Primary Care Nurse Name: Vera Patricia RN Position: [facility] AMB Nurse Member Role: Primary Care Nurse Name: Genevieve Orozco RN Position: [facility] RN Member Role: Primary Care Nurse Care Team Related Persons Name: CIRO TORREZ Address: [address] [address] Name: FARNAZ HANNAH
--- OUTSIDE RECORDS SUMMARY | 2023-08-05 09:50 | XMS_ITS | Continuity of Care Document ---
Author Name Unknown Organization [facility] ter Address [address] [place] [address]- Care Team Providers Care Medical Liaison Name Role Phone Aba Linares DO Marlen Primary Care Physician Encounter [facility] [place] Date(s): 05/26/23 - 06/25/[address] [address] Attending Physician: Clare Medrano MD Admitting Physician: Clare Medrano MD Allergies, Adverse Reactions, [...] 02/09/23 14:14:00 EDT, Route to Pharmacy Electronically, [facility],178, cm, 02/09/23 13:48:00 EDT, Height, 120, kg, 06... Start Date: 02/09/23 Status: Ordered baclofen 10 mg oral tablet 10 mg, 1, tablet, By Mouth, 3 times a day, # 90 tablet, Refills 0, Tot. Refills 0, Maintenance, 05/26/22 15:47:00 EST, Route to Pharmacy Electronically, [facility]/pharmacy #[id number], Partial fill upon patient request if the [...] Date: 09/09/20 Status: Ordered Please provide 28/11 DOUGH MIXER care and weekly VNA visits for medication management. Please provide 28/11 DOUGH MIXER care and weekly VNA visits for medication [...] 7:56:00 EDT, Ointment, [facility]/pharmacy #[id number], Partial fill upon patient request if the [...] Physician Member Role: PCP Address: Address: [address] [place] [address] [place] [address]- Name: Tesha Kirkpatrick RN Position: S RN Member Role: Primary Care Nurse Name: Vera Patricia RN Position: [facility] AMB Nurse Member Role: Primary Care Nurse Name: Genevieve Orozco RN Position: S RN Member Role: Primary Care Nurse Care Team Related Persons Name: CIRO TORREZ Address: [address] [address] Name: FARNAZ HANNAH
--- OUTSIDE RECORDS SUMMARY | 2023-08-05 09:50 | XMS_ITS | Continuity of Care Document ---
Author Name Unknown Organization [facility] Raymond lalito Address [address] [place] [address] [address] [place] [address]- Care Team Providers Care Digital Tech Name Role Phone Aba Linares DO Marlen Primary Care Physician [phone] [facility] [place] Date(s): 06/29/23 - 07/29/23 [facility] [address] [place] [address]- Allergies, Adverse Reactions, Alerts No Known Allergies [...] 02/09/23 14:14:00 EDT, Route to Pharmacy Electronically, [facility],178, cm, 02/09/23 13:48:00 EDT, Height, 120, kg, 06... Start Date: 02/09/23 Status: Ordered baclofen 10 mg oral tablet 10 mg, 1, tablet, By Mouth, 3 times a day, # 90 tablet, Refills 0, Tot. Refills 0, Maintenance, 05/26/22 15:47:00 EST, Route to Pharmacy Electronically, [facility]/pharmacy #[id number], Partial fill [...] kg, 10/26/22 18:50:00 EDT, Dry... Start Date: 8/30/23 Status: Ordered Eliquis Starter Pack 5 mg [...] Date: 09/09/20 Status: Ordered Please provide 28/11 SCRAP CUTTER care and weekly VNA visits for medication management. Please provide 28/11 SCRAP CUTTER care and weekly VNA visits for medication [...] 7:56:00 EDT, Ointment, [facility]/pharmacy #[id number], Partial fill upon patient request if the [...] List Condition Confirmation Course Effective Dates Status [facility] atus Informant Anemia 1 Confirmed Active Atrial fibrillation Confirmed Active Spinal cord injury, cervical region Confirmed Active COPD (chronic obstructive pulmonary disease) Confirmed Active Presence of intrathecal baclofen pump Confirmed Active Lower extremity edema Confirmed Active GERD (gastroesophageal reflux disease) Confirmed Active Severe obesity (BMI 35.0-39.9) with comorbidity Confirmed Active 1Hemoglobin 06/29/23- Patient Care team information Care Team Personnel Name: Danny Whittaker RN Position: [facility] ED RN W/OE and Tasks Member Role: Primary Care Nurse Name: Aba Linares DO Position: Reference Physician Member Role: PCP Address: Address: [address] [place] [address] Internal Medicine [place], [place] [address] Name: Tesha Kirkpatrick RN Position: [facility] RN Member Role: Primary Care Nurse Name: Vera Patricia RN Position: [facility] AMB Nurse Member Role: Primary Care Nurse Name: Genevieve Orozco RN Position: [facility] RN Member Role: Primary Care Nurse Care Team Related Persons Name: CIRO TORREZ Address: [address] [address] Name: FARNAZ HANNAH
[2023-08-05 12:29] VITALS: BP 124/47; PULSE 60; RESP 16; TEMP 37.2; O2SAT 96
== END 2023-08-05 12:00 | disposition home or self-care (01) ==
PROVIDERS: Physician Assistant; Emergency Provider Student in an Organized Health Care Education/Training Program; PCP Internal Medicine
DX: T83.090A Other mechanical complication of cystostomy catheter, initial encounter (principal); Y83.3 Surgical operation with formation of external stoma as the cause of abnormal reaction of the patient, or of later complication, without mention of misadventure at the time of the procedure; Y92.9 Unspecified place or not applicable; G82.20 Paraplegia, unspecified; N31.9 Neuromuscular dysfunction of bladder, unspecified; I10 Essential (primary) hypertension; I48.0 Paroxysmal atrial fibrillation; I25.10 Atherosclerotic heart disease of native coronary artery without angina pectoris; J96.12 Chronic respiratory failure with hypercapnia
CPT/HCPCS: 51705; 81001; 87086; 87088; 87186; 99284

== ENCOUNTER 2023-08-14 14:22 | Outpatient (AMB) | payer OTHER, SELFPAY ==
--- NOTE | 2023-08-14 14:25 | A.OFFVIS_ITS ---
Intake Vital Signs 08/14/23 14:26 Height 5 ft 9 in BMI Reason not done Patient refused/unable BP 109/53 L Blood Pressure Location Lt brachial Position Sitting Intake Visit Reasons: r/s 1 year followup w/ekg Intake Note: 1 year follow-up Milk Pickup Driver Required: No Renewable Energy Trader: Renewable Energy Trader Present Accompanied by: Spouse Allergies No Known Allergies [No Known Allergies*] Allergy (Verified 07/03/23 14:24) Medication List - Last Reconciled 08/14/23 by Robert Rai MD apixaban (Eliquis) 5 mg PO Q12H ascorbic acid (vitamin C) 250 mg PO BID azithromycin 250 mg PO 3XW 28 days baclofen 207 mcg intrathecal DAILY baclofen 10 mg PO TID CPAP (CPAP Machine/Device) As directed docusate sodium 100 mg PO BID PRN escitalopram oxalate 10 mg PO DAILY gabapentin 300 mg PO TID melatonin ER 10 mg PO BEDTIME methenamine hippurate 1 g PO BID multivitamin 1 tab PO DAILY pantoprazole 40 mg PO BID HPI HPI Comments History of Present Illness Details Eran comes for follow-up. He has had no cardiac complaints. However as you know is very restricted in overall due to his cervical spinal cord injury. He has constant cough. Uses CPAP. Denies any prolonged palpitation. Denies any chest pain. Currently taking oral anticoagulation without any side effects. Blood pressure has remained stable he has currently not on any medications for the same. No major bleeding issues or neurologic events. [facility] Medical History Chronic hypercapnic respiratory failure Restrictive lung mechanics due to neuromuscular disease Paraplegia LATANYA on CPAP CAD (coronary artery disease) Paroxysmal atrial fibrillation HTN (hypertension) Surgical History History of carpal tunnel release Hx of colonoscopy Hx of rotator cuff surgery History of hip surgery Family History Father Diabetes HTN (hypertension) CVD (cardiovascular disease) Mother CVD (cardiovascular disease) Diabetes HTN (hypertension) Brother CVD (cardiovascular disease) Diabetes HTN (hypertension) Social History Alcohol intake: former Patient Tobacco Use Status: Former Tobacco user Tobacco use type: Cigarette Years Smoked: 20 years Review of Systems Const Denies chills, Denies fatigue, Denies fever(s), Denies frequent falls, Denies weakness, Denies weight gain and Denies weight loss ENT Denies dizziness Card Denies chest pain, Denies leg edema, Denies lightheadedness, Denies palpitations, Denies dyspnea, Denies dyspnea on exertion, Denies orthopnea and Denies other (loss of consciousness) Resp Denies cough, Denies dyspnea and Denies dyspnea on exertion GI Denies hematochezia and Denies change in stool character Musc Denies abnormal gait, Denies muscle weakness, Denies numbness, Denies radiating pain into limb and Denies tingling Neuro Denies abnormal gait, Denies dizziness, Denies frequent falls, Denies numbness, Denies tingling and Denies weakness Endo Denies fatigue and Denies palpitations Physical Exam Vital Signs: Last Vital Signs BP 109/53 L 08/14/23 14:26 Const General: cooperative, comfortable, no acute distress, alert, awake and ill appearing Nutritional Appearance: underweight Orientation/consciousness: patient oriented x3 Limitations: wheelchair Neck Neck: Yes trachea midline, Yes supple and Yes no JVD Chest Chest palpation & inspection: normal inspection of the chest Resp Effort & Inspection: normal respiratory effort Auscultation: clear to auscultation bilaterally Cardio Jugular venous distension: no JVD Palpation: normal PMI Rate: regular rate Rhythm: regular rhythm Heart sounds: S1 normal heart sound present and S2 normal heart sound present GI Auscultation: normal bowel sounds Skin General skin exam: no rashes or lesions noted Neuro General: patient oriented x3 and no focal motor deficits Extrem General: Yes no clubbing, cyanosis or edema Psych Appearance: grossly normal Office Procedures EKG Details: EKG shows sinus bradycardia at 54 beats per minute otherwise normal EKG 57001-[id number], Complete Assessment & Plan Assessment & Plan (1) Paroxysmal atrial fibrillation: Code(s): I48.0 - Paroxysmal atrial fibrillation Plan: Paroxysmal atrial fibrillation which has remained suppressed without any medications. Continue oral anticoagulation therapy with CHADS-VASc score of 2. We discussed the rationale for oral anticoagulant therapy. Semi annual renal function test should be pursued. Recommend to continue CPAP therapy. Advised to call me with any worsening symptoms. No change in therapy at this (2) HTN (hypertension): Code(s): I10 - Essential (primary) hypertension Plan: Point time. Hypertension which remains controlled without any medical therapy. Probably given reduce functionality and use of CPAP therapy and losing weight. Continue monitor intermittently blood pressure at home. Advised to call me with any well elevated reading. Will follow up in the clinic in 1 year's time on their request. Thank you for allowing me to partake in his care Coding Level of Care Code Est Pt Level 4 (10713) Diagnoses Paroxysmal atrial fibrillation I48.0 HTN (hypertension) I10 CPT Codes EKG - CPT: 27510-Njwyquwnzrfwfglhk, Complete ([id number])
[2023-08-14 14:26] VITALS: BP 109/53
== END 2023-08-14 15:01 | disposition home or self-care (01) ==
PROVIDERS: PCP Internal Medicine; Visit Provider Internal Medicine Cardiovascular Disease
DX: I48.0 Paroxysmal atrial fibrillation (principal); I10 Essential (primary) hypertension
CPT/HCPCS: 93010; 99214

== ENCOUNTER → 2023-08-14 14:22 | Outpatient (BNVA) | payer OTHER, SELFPAY | PROVIDERS: PCP Internal Medicine; Visit Provider Internal Medicine Cardiovascular Disease | DX: I48.0 Paroxysmal atrial fibrillation (principal); I10 Essential (primary) hypertension; Z79.01 Long term (current) use of anticoagulants | CPT/HCPCS: 93005; 99212 ==

== ENCOUNTER 2023-09-23 13:13 | Emergency (ER) | payer OTHER, SELFPAY ==
[2023-09-23 13:36] VITALS: BP 116/47; BP 128/62; PULSE 57; PULSE 58; RESP 18; TEMP 36.8; O2SAT 98; O2SAT 99; BMI 34.9
--- NOTE | 2023-09-23 13:40 | ED_ITS ---
HPI - General Adult General Chief complaint: Urogenital-Male Stated complaint: BLEEDING FROM [place] PER EMS Time Seen by Provider: 09/23/23 13:20 Source: patient, EMS and RN notes reviewed Mode of arrival: EMS Limitations: no limitations History of Present Illness ED Provider: Erika Martinez NP HPI narrative: Patient is a 73-year-old male with history of paroxysmal AFib on Eliquis, hypertension, GERD, coronary artery disease, obesity, paraplegia secondary to cervical spine injury 2 years ago, chronic UTIS on methenamine, chronic suprapubic rutherford presenting to the emergency department with report of hematuria noted in drainage bag of suprapubic catheter since this morning. Also reports that he had some itching/burning around his penis area. States that his catheter was flushed by his aide which improved the burning around his penis and states that the catheter was draining normally after being flushed. Reports history of hematuria in the past, states that began after an aid attempted to change his catheter at home in March. He denies any abdominal pain, nausea or vomiting. Denies fever, chills, body aches. States that his catheter was draining normally after being flushed. MD complaint: hematuria Onset (ago): hour(s) Associated symptoms: denies other symptoms Treatments prior to arrival: other (flushing catheter) Related Data Home Medications ?Medication ?Instructions ?Recorded ?Confirmed CPAP (CPAP Machine/Device) 07/19/21 08/14/23 apixaban 5 mg tablet (Eliquis) 5 mg PO Q12H 07/19/21 08/14/23 ascorbic acid (vitamin C) 250 mg 250 mg PO BID 07/19/21 08/14/23 tablet pantoprazole 40 mg tablet,delayed 40 mg PO BID 07/19/21 08/14/23 release baclofen 2,000 mcg/mL intrathecal 207 mcg intrathecal DAILY 10/15/21 08/14/23 solution gabapentin 300 mg capsule 300 mg PO TID 10/15/21 08/14/23 methenamine hippurate 1 gram tablet 1 g PO BID 01/27/22 08/14/23 docusate sodium 100 mg capsule 100 mg PO BID PRN constipation 06/08/23 08/14/23 escitalopram oxalate 10 mg tablet 10 mg PO DAILY 06/08/23 08/14/23 multivitamin 1 tab PO DAILY 06/08/23 08/14/23 baclofen 10 mg tablet 10 mg PO TID 07/03/23 08/14/23 melatonin 10 mg tablet,extended 10 mg PO BEDTIME 07/03/23 08/14/23 release Previous Rx's ?Medication ?Instructions ?Recorded azithromycin 250 mg tablet 250 mg PO 3XW 28 days #12 tabs 07/03/23 levofloxacin 750 mg tablet 750 mg PO DAILY #4 tabs 09/23/23 Allergies Allergy/AdvReac Type Severity Reaction Status Date / Time No Known Allergies Allergy Verified 09/23/23 13:38 [No Known Allergies*] Review of Systems 2 Review of Systems: As per HPI. Yes all other systems are reviewed and are negative [facility] Past Medical History Medical History Chronic hypercapnic respiratory failure Restrictive lung mechanics due to neuromuscular disease Paraplegia LATANYA on CPAP CAD (coronary artery disease) Paroxysmal atrial fibrillation HTN (hypertension) Surgical History History of carpal tunnel release Hx of colonoscopy Hx of rotator cuff surgery History of hip surgery Family History Family History Father Diabetes HTN (hypertension) CVD (cardiovascular disease) Mother CVD (cardiovascular disease) Diabetes HTN (hypertension) Brother CVD (cardiovascular disease) Diabetes HTN (hypertension) Social History Social History Alcohol intake: former Patient Tobacco Use Status: Former Tobacco user Tobacco use type: Cigarette Years Smoked: 20 years Advance Directives: No Advance Directives Information Provided: Yes Physical Exam ED Vital Signs: Vital Signs - 24 hr 09/23/23 13:36 09/23/23 14:40 Temperature 98.2 F Pulse Rate 58 52 Respiratory Rate 18 15 Blood Pressure 116/47 L 117/57 L Pulse Oximetry 99 100 Oxygen Delivery Method Room Air Room Air BMI result Body Mass Index 34.9 Vital signs have been reviewed and appear to be correct. Blood pressure normal. Heart rate bradycardic. Respiratory rate normal. Temperature normal. Oxygen saturation normal. Const General: cooperative, no acute distress, alert and awake Nutritional Appearance: obese Orientation/consciousness: patient oriented x3 Limitations: physical limitations HENMT Head: Yes normocephalic and Yes atraumatic Ears: hearing grossly normal bilaterally and external ears normal General nose exam: Normal external nose present Mouth: Normal oral and palatal mucosa present Throat: Yes uvula midline Eyes Pupils: Equal, round and reactive pupils present Resp Effort & Inspection: normal respiratory effort Auscultation: clear to auscultation bilaterally Cardio Rate: regular rate Rhythm: regular rhythm Heart sounds: S1 normal heart sound present and S2 normal heart sound present Peripheral pulses: Peripheral pulses 2+ throughout GI Inspection: Yes other (suprapubic catheter present without surrounding erythema) Palpation (GI): Soft to palpation and nontender Other: scant amount of urinary incontinence from penis General: Yes no CVA tenderness Penis: normal penis Back/Spine/Pelvis Back: no CVA tenderness Skin General skin exam: elasticity normal and turgor normal Neuro General: patient oriented x3 and No moves all extremities Cranial nerves: Yes Equal, round and reactive pupils present Cognition (Neuro): normal cognition Medical Decision Making Medical Decision Making [facility] Narrative: Patient is a 73-year-old male with history of paroxysmal AFib on Eliquis, hypertension, GERD, coronary artery disease, obesity, paraplegia secondary to cervical spine injury 2 years ago, chronic UTIS on methenamine, chronic suprapubic rutherford presenting to the emergency department with report of hematuria noted in drainage bag of suprapubic catheter since this morning. On exam patient is awake, A+Ox3, BP slightly low, patient bradycardic in the 50s, asymptomatic, WNL, afebrile, normal neurological exam without focal deficits, physical exam findings as above. Given reported symptoms and physical exam findings, initial differential includes painless hematuria, complication of catheter, UTI/pyelonephritis. Labs notable for microcytic anemia not at transfusable level, no evidence of DYLAN. Urinalysis notable for 3+ leukocytes, 3+ blood, >50WBCs. Catheter draining appropriately in the ED. Case discussed with Dr. Estrada who recommends antibiotics and follow up with urologist on Monday. Prior cultures show pansensitive Pseudomonas and ESBL Klebsiella, will treat with Levaquin and 1st dose given in the emergency department. Discussed plan with patient and caretakers, who verbalized understanding and agreement. Return precautions discussed. Differential Diagnosis Differential Diagnoses: The differential diagnosis associated with the presentation includes As per MDM Admission/Observation Consideration of admission/observation: Escalation of care including admission/observation considered Patient would have been admitted to the hospital had their work up had any findings where hospital admission was appropriate and their clinical presentation warranted hospital admission. Consult Healthcare Provider Management of the patient was discussed with: Condominium Property Manager (Dr. Estrada urology) Lab Data [facility] Lab Attestation statement: I reviewed the patient's lab results. As per [facility] 09/23/23 15:11 09/23/23 15:11 Labs: Lab Results 09/23/23 09/23/23 Range/Units 15:11 15:29 WBC 8.6 (4.8-10.8) X10*3/uL RBC 3.78 L (4.60-5.80) X10*6/uL Hgb 10.0 L (14.0-18.0) g/dl Hct 31.4 L (42.0-52.0) % MCV 83.1 (80.0-98.0) fL MCH 26.5 L (27.0-33.0) pg MCHC 31.8 (31.0-36.0) g/dl RDW 16.2 H (11.0-16.0) % Plt Count 220 (160-400) X10*3/uL MPV 10.1 (9.4-12.4) fL Immature Gran % (Auto) 0.1 (0.0-0.4) % Neut % (Auto) 76.9 H (45-73) % Lymph % (Auto) 13.7 L (20-40) % Villalba % (Auto) 6.9 (2-11) % Eos % (Auto) 2.0 (0-4) % Baso % (Auto) 0.4 (0-2) % Lymph # (Auto) 1.2 (1.2-4.9) X10*3/uL Villalba # (Auto) 0.6 (0.1-1.2) X10*3/uL Eos # (Auto) 0.2 (0.0-0.4) X10*3/uL Baso # (Auto) 0.0 (0.0-0.2) X10*3/uL Abs Immat Gran (auto) 0.01 (0.00-0.03) X10*3/uL Absolute Neuts (auto) 6.6 (2.0-8.3) x10*3/uL Absolute Nucleated RBC 0.000 (0.0-0.012) X10*3/uL Nucleated RBC % (auto) 0.0 (0.0-0.2) /100WBC Sodium 140 (135-145) mmol/L Potassium 3.8 (3.3-5.1) mmol/L Chloride 103 (96-108) mmol/L Carbon Dioxide 26 (22-29) mmol/L Anion Gap 15 (12-20) BUN 12 (9-16) mg/dL Creatinine 0.55 (0.5-1.4) mg/dL Estim Creat Clear Calc 143.9 Estimated GFR > 60 Random Glucose 107 (60-115) mg/dL Calcium 8.9 (8.4-10.2) mg/dL Total Bilirubin 0.4 (0.0-1.0) mg/dL AST 18 (5-37) U/L ALT 9 (0-40) U/L Alkaline Phosphatase 62 (39-117) U/L Total Protein 6.6 (6.5-8.0) g/dL Albumin 3.5 (3.5-5.0) g/dL Urine Color Yellow Urine Appearance Cloudy Urine pH 7.0 (5.0-9.0) Ur Specific Colbert <= 1.005 (1.005-1.025) Urine Protein 100 (2+) H (Neg-Trace) mg/dL Urine Glucose (UA) Negative (Negative) mg/dL Urine Ketones Negative (Negative) mg/dL Urine Blood Large (3+) H (Negative) Urine Nitrite Negative (Negative) Ur Leukocyte Esterase Large (3+) H (Negative) Urine RBC 6-10 H (0-2) /HPF Urine WBC >50 H (0-5) /HPF Ur Squamous Epith Cells 0-2 (0-2) /HPF Urine Bacteria Trace (None Seen) Hyaline Casts 0-2 (0-2) /LPF External Record Review External record reviewed: Inpatient record, Office record and Outpatient record Prescription Management I considered prescription management with: Antibiotic Discharge Plan Discharge Clinical Impression: Urinary tract infection, Painless hematuria Patient Disposition: Home, Self-Care Instructions: How to Care for Your Suprapubic Catheter (DC), Hematuria (ED), Catheter-associated Urinary Tract Infection (ED) Additional Instructions: You were evaluated in the emergency department today for blood in your urinary catheter drainage bag. Your evaluation showed evidence of a urinary tract infection and you are being treated with antibiotics, please complete the full course as prescribed. You were given the 1st dose tonight in the emergency department in your next dose is due tomorrow night. We recommend that you follow-up with your urologist on Monday. Return to the emergency department if you develop back pain, nausea and vomiting, fever, increased blood in your urine or if your urine is not draining into your bag or any other concerning symptoms. Prescriptions: New levofloxacin 750 mg tablet 750 mg PO DAILY Qty: 4 0RF No Action multivitamin [Multi-Vitamin] Tablet 1 tab PO DAILY docusate sodium 100 mg capsule 100 mg PO BID PRN (Reason: constipation) escitalopram oxalate 10 mg tablet 10 mg PO DAILY pantoprazole 40 mg tablet,delayed release (DR/EC) 40 mg PO BID Eliquis 5 mg tablet 5 mg PO Q12H (DME) CPAP Machine/Device Device See Rx Instructions .Route Rx Instructions: As directed ascorbic acid (vitamin C) 250 mg tablet 250 mg PO BID gabapentin 300 mg capsule 300 mg PO TID baclofen 2,000 mcg/mL solution 207 mcg intrathecal DAILY Rx Instructions: administer over 24 hrs methenamine hippurate 1 gram tablet 1 g PO BID melatonin 10 mg tablet extended release 10 mg PO BEDTIME baclofen 10 mg tablet 10 mg PO TID azithromycin 250 mg tablet 250 mg PO 3XW 28 Days Qty: 12 1RF Rx Instructions: Take 1 tablet on Monday/Monday/Monday Print Language: Vietnamese
--- OUTSIDE RECORDS SUMMARY | 2023-09-23 14:08 | XMS_ITS | Continuity of Care Document ---
Author Organization [facility] Address [address] [place] [address]- Care Team Providers Care Ornamental Metal Worker Name Role Phone Aba Linares DO Marlen Primary Care Physician [phone] Encounter [facility] Date(s): 08/23/23 - 09/22/23 [facility] [address] [place] [address]- Allergies, Adverse Reactions, Alerts No Known Allergies [...] 02/09/23 14:14:00 EDT, Route to Pharmacy Electronically, [facility],178, cm, 02/09/23 13:48:00 EDT, Height, 120, kg, 06... Start Date: 02/09/23 Status: Ordered baclofen 10 mg oral tablet 10 mg, 1, tablet, By Mouth, 3 times a day, # 90 tablet, Refills 0, Tot. Refills 0, Maintenance, 05/26/22 15:47:00 EST, Route to Pharmacy Electronically, [facility]/pharmacy #[id number], Partial fill upon patient request if the [...] 11 Refills, Maintenance, 08/20/21 15:56:00 EDT, Suppository, [facility]/pharmacy #[id number], 180.3, cm, 08/12/21 7:56:00 EDT, Height, 100.5, kg, 09/23/20 12:08:00 EDT, Dry Weight Start Date: 08/20/21 Status: Ordered Manual Cheryl lift with scale attachment Manual Cheryl lift with scale attachment, See Instructions, # 1 kit, Refills 0, Tot. Refills 0, Maintenance, Dx: Tetraplegia, 09/08/22 13:20:00 EDT, Supply Start Date: 5/4/23 Status: Ordered melatonin 3 mg oral tablet [...] Refills, Maintenance, 09/17/21 16:24:00 EDT, REC Powder, [facility]/pharmacy #[id number], Partial fill upon patient [...] Date: 09/09/20 Status: Ordered Please provide 28/11 LABOR AND DELIVERY NURSE care and weekly VNA visits for medication management. Please provide 28/11 LABOR AND DELIVERY NURSE care and weekly VNA visits for medication [...] Refills, Maintenance, 08/21/21 7:56:00 EDT, Ointment, [id number], Partial fill upon patient request if the [...] Team Personnel Name: Danny Whittaker RN Position: [facility] ED RN W/OE and Tasks Member Role: Primary Care Nurse Name: Aba Linares DO Position: Reference Physician Member Role: PCP Address: Address: [address] [place] [address] Internal Medicine [place], [place] [address] Name: Tesha Kirkpatrick RN Position: [facility] RN Member Role: Primary Care Nurse Name: Vera Patricia RN Position: [facility] AMB Nurse Member Role: Primary Care Nurse Name: Genevieve Orozco RN Position: [facility] RN Member Role: Primary Care Nurse Care Team Related Persons Name: CIRO TORREZ Address: [address] [address] Name: FARNAZ HANNAH
--- OUTSIDE RECORDS SUMMARY | 2023-09-23 14:08 | XMS_ITS | Continuity of Care Document ---
Author Organization [facility] Raymond lalito Address [address] [place] [address] [facility] [address] [place] [address]- Care Team Providers Care Bio Medical Technician Name Role Phone Aba Linares DO Marlen Primary Care Physician [phone] Encounter [facility] Date(s): 07/07/23 - 08/06/23 [facility] [address] [address] Allergies, Adverse Reactions, Alerts No [...] 02/09/23 14:14:00 EDT, Route to Pharmacy Electronically, [facility],178, cm, 02/09/23 13:48:00 EDT, Height, 120, kg, 06... Start Date: 02/09/23 Status: Ordered baclofen 10 mg oral tablet 10 mg, 1, tablet, By Mouth, 3 times a day, # 90 tablet, Refills 0, Tot. Refills 0, Maintenance, 05/26/22 15:47:00 EST, Route to Pharmacy Electronically, [facility]/pharmacy #[id number], Partial fill upon [...] Date: 09/09/20 Status: Ordered Please provide 28/11 CASHIERS BUSSERS FOOD RUNNERS care and weekly VNA visits for medication management. Please provide 28/11 CASHIERS BUSS[employer] FOOD RUNNERS care and weekly VNA visits for medication [...] 08/21/21 7:56:00 EDT, Ointment, [facility]/pharmacy #[id number], Partial fill upon patient request if [...] Reference Physician Member Role: PCP Address: Address: [address] [place] [address] Internal [place] [address] Name: Tesha Kirkpatrick RN Position: [facility] RN Member Role: Primary Care Nurse Name: Vera Patricia RN Position: [facility] AMB Nurse Member Role: Primary Care Nurse Name: Genevieve Orozco RN Position: [facility] RN Member Role: Primary Care Nurse Care Team Related Persons Name: CIRO TORREZ Address: [address] [address] Name: FARNAZ HANNAH
--- OUTSIDE RECORDS SUMMARY | 2023-09-23 14:08 | XMS_ITS | Continuity of Care Document ---
Author Organization [facility] Address [address] [place] [address]- Care Team Providers Care Casing Worker Name Role Phone Aba Linares DO Primary Care Physician Encounter [facility] Date(s): 08/17/23 - 08/24/23 [facility] [address] [place] [address]- Attending Physician: Radha CAMACHO, Eran Referring Physician: [...] 02/09/23 14:14:00 EDT, Route to Pharmacy Electronically, [facility],178, cm, 02/09/23 13:48:00 EDT, Height, 120, kg, 06... Start Date: 02/09/23 Status: Ordered baclofen 10 mg oral tablet 10 mg, 1, tablet, By Mouth, 3 times a day, # 90 tablet, Refills 0, Tot. Refills 0, Maintenance, 05/26/22 15:47:00 EST, Route to Pharmacy Electronically, [facility]/pharmacy #[id number], Partial fill upon patient request if the [...] Refills, Maintenance, 08/20/21 15:56:00 EDT, Suppository, [facility]/pharmacy #[id number], 180.3, cm, 08/12/21 7:56:00 [...] Maintenance, 09/17/21 16:24:00 EDT, REC Powder, [facility]/pharmacy #[id number], Partial fill upon patient [...] Date: 09/09/20 Status: Ordered Please provide 28/11 CENTRAL OFFICE WORKER care and weekly VNA visits for medication management. Please provide 28/11 CENTRAL OFFICE WORKER care and weekly VNA visits for medication [...] 6 Refills, Maintenance, 08/21/21 7:56:00 EDT, Ointment, [facility]/pharmacy #[id number], Partial fill upon patient request if the [...] oldest [Reference Range]: 1 Height 178 cm (08/17/23 2:49 PM) Oxygen Saturation [94-100 %] 96 % (08/17/23 2:49 PM) Pulse Rate [55-90 bpm] 54 bpm *L* (08/17/23 2:49 PM) Blood Pressure [90-138/55-84 mm Hg] 93/5 5mm Hg (08/17/23 2:49 PM) Mode of Delivery (Oxygen) Room air (08/17/23 2:49 PM) Patient Care team information Care Team Personnel Name: Danny Whittaker RN Position: [facility] ED RN W/OE and Tasks Member Role: Primary Care Nurse Name: Aba Linares DO Position: Reference Physician Member Role: PCP Address: Address: [address] [place] [address] [place] [address]- Name: Tesha Kirkpatrick RN Position: [facility] RN Member Role: Primary Care Nurse Name: Vera Patricia RN Position: [facility] AMB Nurse Member Role: Primary Care Nurse Name: Genevieve Orozco RN Position: [facility] RN Member Role: Primary Care Nurse Care Team Related Persons Name: CIRO TORREZ Address: [address] [address] Name: FARNAZ HANNAH
--- OUTSIDE RECORDS SUMMARY | 2023-09-23 14:08 | XMS_ITS | Continuity of Care Document ---
Author Organization [facility] Address [address] [place] [address]- Care Team Providers Care Technical Maintenance Technician Name Role Phone Aba Linares DO Marlen Primary Care Physician [phone] Encounter [facility] Date(s): 08/17/23 - 09/16/23 [facility] [address] [place] [address]- Attending Physician: Sumaya Rod Admitting Physician: AdmtrSumaya Referring Physician: AdmtrSumaya Allergies, Adverse Reactions, Alerts [...] 02/09/23 14:14:00 EDT, Route to Pharmacy Electronically, [facility],178, cm, 02/09/23 13:48:00 EDT, Height, 120, kg, 06... Start Date: 02/09/23 Status: Ordered baclofen 10 mg oral tablet 10 mg, 1, tablet, By Mouth, 3 times a day, # 90 tablet, Refills 0, Tot. Refills 0, Maintenance, 05/26/22 15:47:00 EST, Route to Pharmacy Electronically, [facility]/pharmacy #[id number], Partial fill upon patient request if the [...] 11 Refills, Maintenance, 08/20/21 15:56:00 EDT, Suppository, [facility]/pharmacy #[id number], 180.3, cm, 08/12/21 7:56:00 EDT, [...] Refills, Maintenance, 09/17/21 16:24:00 EDT, REC Powder, [facility]/pharmacy #[id number], Partial fill upon patient request [...] Date: 09/09/20 Status: Ordered Please provide 28/11 MATERIALS AND PROCESSES MANAGER care and weekly VNA visits for medication management. Please provide 28/11 MATERIALS AND PROCESSES MANAGER care and weekly VNA visits for [...] 6 Refills, Maintenance, 08/21/21 7:56:00 EDT, Ointment, [facility]/pharmacy #[id number], Partial fill upon patient request if the [...] Reference Physician Member Role: PCP Address: Address: [address] [place] [address] [place] [address]- Name: Tesha Kirkpatrick RN Position: [facility] RN Member Role: Primary Care Nurse Name: Vera Patricia RN Position: [facility] AMB Nurse Member Role: Primary Care Nurse Name: Genevieve Orozco RN Position: [facility] RN Member Role: Primary Care Nurse Care Team Related Persons Name: CIRO TORREZ Address: [address] [address] Name: FARNAZ HANNAH
--- OUTSIDE RECORDS SUMMARY | 2023-09-23 14:09 | XMS_ITS | Continuity of Care Document ---
Author Organization [facility] Raymond lalito Address [address] [place] [address] [address] [place] [address]- Care Team Providers Care Civil Service Clerk Name Role Phone Aba Linares DO Marlen Primary Care Physician Encounter [facility] Date(s): 08/01/23 - 08/31/23 [facility] [address] [address]- Attending Physician: Sumaya Rod Admitting Physician: AdmtrSumaya [...] 02/09/23 14:14:00 EDT, Route to Pharmacy Electronically, [facility],178, cm, 02/09/23 13:48:00 EDT, Height, 120, kg, 06... Start Date: 02/09/23 Status: Ordered baclofen 10 mg oral tablet 10 mg, 1, tablet, By Mouth, 3 times a day, # 90 tablet, Refills 0, Tot. Refills 0, Maintenance, 05/26/22 15:47:00 EST, Route to Pharmacy Electronically, [facility]/pharmacy #[id number], Partial fill upon patient request if the [...] Refills, Maintenance, 08/20/21 15:56:00 EDT, Suppository, [facility]/pharmacy #[id number], 180.3, cm, 08/12/21 7:56:00 EDT, Height, [...] Maintenance, 09/17/21 16:24:00 EDT, REC Powder, [facility]/pharmacy #[id number], Partial fill upon patient request if [...] Date: 09/09/20 Status: Ordered Please provide 28/11 PROFESSOR OF BUSINESS care and weekly VNA visits for medication management. Please provide 28/11 PROFESSOR OF BUSINESS care and weekly VNA visits for medication [...] Refills, Maintenance, 08/21/21 7:56:00 EDT, Ointment, [facility]/pharmacy #[id number], Partial fill upon patient request if the [...] Team Personnel Name: Danny Whittaker RN Position: [facility] ED RN W/OE and Tasks Member Role: Primary Care Nurse Name: Aba Linares DO Position: Reference Physician Member Role: PCP Address: Address: [address] [place] [address] [place] [address]- Name: Tesha Kirkpatrick RN Position: [facility] RN Member Role: Primary Care Nurse Name: Vera Patricia RN Position: [facility] AMB Nurse Member Role: Primary Care Nurse Name: Genevieve Orozco RN Position: [facility] RN Member Role: Primary Care Nurse Care Team Related Persons Name: CIRO TORREZ Address: [address] [address] Name: FARNAZ HANNAH
--- OUTSIDE RECORDS SUMMARY | 2023-09-23 14:09 | XMS_ITS | Continuity of Care Document ---
Author Organization [facility] Raymond lalito Address [address] [place] [address] [facility] [address] [place] [address]- Care Team Providers Care Business Communications Instructor Name Role Phone Aba Linares DO Marlen Primary Care Physician [place] [facility] [place]s): 08/02/23 - 09/01/23 [facility] [address] [address] Allergies, Adverse Reactions, [...] 02/09/23 14:14:00 EDT, Route to Pharmacy Electronically, [facility],178, cm, 02/09/23 13:48:00 EDT, Height, 120, kg, 06... Start Date: 02/09/23 Status: Ordered baclofen 10 mg oral tablet 10 mg, 1, tablet, By Mouth, 3 times a day, # 90 tablet, Refills 0, Tot. Refills 0, Maintenance, 05/26/22 15:47:00 EST, Route to Pharmacy Electronically, [facility]/pharmacy #[id number], Partial fill upon [...] 11 Refills, Maintenance, 08/20/21 15:56:00 EDT, Suppository, [facility]/pharmacy #[id number], 180.3, cm, 08/12/21 [...] Refills, Maintenance, 09/17/21 16:24:00 EDT, REC Powder, [facility]/pharmacy #[id number], Partial fill upon [...] Date: 09/09/20 Status: Ordered Please provide 28/11 PAYMENT POSTER care and weekly VNA visits for medication management. Please provide 28/11 PAYMENT POSTER care and weekly VNA visits for medication [...] 6 Refills, Maintenance, 08/21/21 7:56:00 EDT, Ointment, [facility]/pharmacy #[id number], Partial fill upon patient request if the [...] Team Personnel Name: Danny Whittaker RN Position: [facility] ED RN W/OE and Tasks Member Role: Primary Care Nurse Name: Aba Linares DO Position: Reference Physician Member Role: PCP Address: Address: [address] [place] [address] Internal Medicine [place], [place] [address] Name: Tesha Kirkpatrick RN Position: [facility] RN Member Role: Primary Care Nurse Name: Vera Patricia RN Position: [facility] AMB Nurse Member Role: Primary Care Nurse Name: Genevieve Orozco RN Position: [facility] RN Member Role: Primary Care Nurse Care Team Related Persons Name: CIRO TORREZ Address: [address] [address] Name: FARNAZ HANNAH
--- OUTSIDE RECORDS SUMMARY | 2023-09-23 14:09 | XMS_ITS | Continuity of Care Document ---
Author Organization [facility] Raymond lalito Address [address] [place] [address] [facility] [address] [place] [address]- Care Team Providers Care Hhas Name Role Phone Aba Linares DO Marlen Primary Care Physician [phone] Encounter [facility] Date(s): 08/09/23 - 09/08/23 [facility] [address] [address] Allergies, Adverse Reactions, Alerts No Known [...] 02/09/23 14:14:00 EDT, Route to Pharmacy Electronically, [facility],178, cm, 02/09/23 13:48:00 EDT, Height, 120, kg, 06... Start Date: 02/09/23 Status: Ordered baclofen 10 mg oral tablet 10 mg, 1, tablet, By Mouth, 3 times a day, # 90 tablet, Refills 0, Tot. Refills 0, Maintenance, 05/26/22 15:47:00 EST, Route to Pharmacy Electronically, [facility]/pharmacy #[id number], Partial fill upon [...] Maintenance, 08/20/21 15:56:00 EDT, Suppository, [facility]/pharmacy #[id number], 180.3, cm, 08/12/21 [...] 09/17/21 16:24:00 EDT, REC Powder, [facility]/pharmacy #[id number], Partial fill upon [...] Date: 09/09/20 Status: Ordered Please provide 28/11 SYSTEMS SOFTWARE MANAGER care and weekly VNA visits for medication management. Please provide 28/11 SYSTEMS SOFTWARE MANAGER care and weekly VNA visits for [...] Maintenance, 08/21/21 7:56:00 EDT, Ointment, [facility]/pharmacy #[id number], Partial fill upon patient request if the [...] Team Personnel Name: Danny Whittaker RN Position: [facility] ED RN W/OE and Tasks Member Role: Primary Care Nurse Name: Aba Linares DO Position: Reference Physician Member Role: PCP Address: Address: [address] [place] [address] Internal Medicine [place], [place] [address] Name: Tesha Kirkpatrick RN Position: [facility] RN Member Role: Primary Care Nurse Name: Vera Patricia RN Position: [facility] AMB Nurse Member Role: Primary Care Nurse Name: Genevieve Orozco RN Position: [facility] RN Member Role: Primary Care Nurse Care Team Related Persons Name: CIRO TORREZ Address: [address] [address] Name: FARNAZ HANNAH
--- OUTSIDE RECORDS SUMMARY | 2023-09-23 14:09 | XMS_ITS | Continuity of Care Document ---
Author Organization [facility] Raymond lalito Address [address] [place] [address] [facility] [address] [place] [address]- Care Team Providers Care Manager Of Training And Development Name Role Phone Aba Linares DO Malren Primary Care Physician Encounter [facility] Date(s): 08/01/23 - 08/31/23 [facility] [address] [address] Allergies, Adverse Reactions, Alerts No Known [...] 02/09/23 14:14:00 EDT, Route to Pharmacy Electronically, [facility],178, cm, 02/09/23 13:48:00 EDT, Height, 120, kg, 06... Start Date: 02/09/23 Status: Ordered baclofen 10 mg oral tablet 10 mg, 1, tablet, By Mouth, 3 times a day, # 90 tablet, Refills 0, Tot. Refills 0, Maintenance, 05/26/22 15:47:00 EST, Route to Pharmacy Electronically, [facility]/pharmacy #[id number], Partial fill [...] Date: 09/09/20 Status: Ordered Please provide 28/11 COLOR GRINDER care and weekly VNA visits for medication management. Please provide 28/11 COLOR GRINDER care and weekly VNA visits for medication [...] 7:56:00 EDT, Ointment, [facility]/pharmacy #[id number], Partial fill upon patient request if the [...] List Condition Confirmation Course Effective Dates Status [facility] atus Informant Anemia 1 Confirmed Active [...] Team Personnel Name: Danny Whittaker RN Position: [facility] ED RN W/OE and Tasks Member Role: Primary Care Nurse Name: Aba Linares DO Position: Reference Physician Member Role: PCP Address: Address: [address] [place] [address] Internal Medicine [place], [place] [address] Name: Tesha Kirkpatrick RN Position: [facility] RN Member Role: Primary Care Nurse Name: Vera Patricia RN Position: [facility] AMB Nurse Member Role: Primary Care Nurse Name: Genevieve Orozco RN Position: [facility] RN Member Role: Primary Care Nurse Care Team Related Persons Name: CIRO TORREZ Address: [address] [address] Name: AFRNAZ HANNAH
[2023-09-23 14:40] VITALS: BP 117/57; PULSE 52; RESP 15; O2SAT 100
[2023-09-23 15:18] LABS: MANUAL DIFF FLAG NO
[2023-09-23 15:21] LABS: Basophils Percent Auto 0.4 % (0-2); Eosinophils Absolute Auto 0.2 X10*3/uL (0.0-0.4); Hematocrit 31.4 % (42.0-52.0); Imm Gran Abs Auto 0.01 X10*3/uL (0.00-0.03); Imm Gran Pct Auto 0.1 % (0.0-0.4); Lymphocytes Absolute Auto 1.2 X10*3/uL (1.2-4.9); Lymphocytes Percent Auto 13.7 % (20-40); Mean Corpuscular HGB Conc 31.8 g/dl (31.0-36.0); Mean Corpuscular Hemoglobin 26.5 pg (27.0-33.0); Mean Corpuscular Volume 83.1 fL (80.0-98.0); Mean Platelet Volume 10.1 fL (9.4-12.4); Monocytes Absolute Auto 0.6 X10*3/uL (0.1-1.2); Monocytes Percent Auto 6.9 % (2-11); Neutrophils Absolute Auto 6.6 x10*3/uL (2.0-8.3); Neutrophils Percent Auto 76.9 % (45-73); Platelet Count 220 X10*3/uL (160-400); Red Blood Count 3.78 X10*6/uL (4.60-5.80); Red Cell Distribution Width 16.2 % (11.0-16.0); White Blood Count 8.6 X10*3/uL (4.8-10.8)
[2023-09-23 15:35] LABS: Alanine Aminotransferase 9 U/L (0-40); Albumin Level 3.5 g/dL (3.5-5.0); Alkaline Phosphatase 62 U/L (39-117); Anion Gap 15 (12-20); Aspartate Amino Transferase 18 U/L (5-37); Bilirubin Total 0.4 mg/dL (0.0-1.0); Blood Urea Nitrogen 12 mg/dL (9-16); Calcium 8.9 mg/dL (8.4-10.2); Carbon Dioxide 26 mmol/L (22-29); Chloride 103 mmol/L (96-108); Creatinine Clr Calc Pharmacy 143.9; Estimated Glomerular Filt Rate > 60; Glucose Random 107 mg/dL (60-115); Potassium 3.8 mmol/L (3.3-5.1); Sodium 140 mmol/L (135-145); Total Protein 6.6 g/dL (6.5-8.0)
[2023-09-23 15:50] LABS: Appearance Urine Cloudy; Color Urine Yellow; Glucose Urine UA Negative (Negative); Leukocyte Esterase Urine Large (3+) (Negative); Nitrite Urine Negative (Negative); Specific Gravity - Urine <= 1.005 (1.005-1.025); UMIC TRIGGER UACC YES; Urine Blood Large (3+) (Negative); Urine Ketones Negative (Negative); Urine Protein 100 (2+) mg/dL (Neg-Trace)
[2023-09-23 15:56] LABS: Bacteria Urine Trace (None Seen); Hyaline Casts Urine 0-2 /LPF (0-2); Squamous Epithelial Cell Urine 0-2 /HPF (0-2); UACC Culture Trigger YES; WBC Urine >50 /HPF (0-5)
[2023-09-23] MEDS: levoFLOXacin 750 MG TABLET PO (18:10)
[2023-09-23 18:54] VITALS: BP 128/57; PULSE 59; RESP 18; TEMP 36.8; O2SAT 97
== END 2023-09-23 18:54 | disposition home or self-care (01) ==
PROVIDERS: Registered Nurse Emergency; Emergency Provider Emergency Medicine; PCP Internal Medicine
DX: N39.0 Urinary tract infection, site not specified (principal); R31.9 Hematuria, unspecified; Z96.0 Presence of urogenital implants; G82.20 Paraplegia, unspecified; T14.8XXS Other injury of unspecified body region, sequela; I10 Essential (primary) hypertension; I48.91 Unspecified atrial fibrillation; Z79.01 Long term (current) use of anticoagulants; I25.10 Atherosclerotic heart disease of native coronary artery without angina pectoris
CPT/HCPCS: 36415; 80053; 81001; 85025; 87086; 87088; 87186; 99283

== ENCOUNTER 2023-10-11 14:30 | Outpatient (REF) | payer OTHER, SELFPAY ==
[2023-10-11 19:08] LABS: Appearance Urine Turbid; Color Urine Dark Yellow; Glucose Urine UA Negative (Negative); Leukocyte Esterase Urine Large (3+) (Negative); Nitrite Urine Negative (Negative); PH 6.5 (5.0-9.0); UMIC TRIGGER UACC YES; Urine Blood Large (3+) (Negative); Urine Ketones Trace mg/dL (Negative); Urine Protein 300 (3+) mg/dL (Neg-Trace)
[2023-10-11 19:51] LABS: Bacteria Urine None Seen (None Seen); Hyaline Casts Urine 0-2 /LPF (0-2); RBC Urine >20 /HPF (0-2); Squamous Epithelial Cell Urine 0-2 /HPF (0-2); UACC Culture Trigger YES; WBC Urine >50 /HPF (0-5)
== END 2023-10-11 14:31 | disposition home or self-care (01) ==
LOC: HO.MANLNP 14:30
PROVIDERS: Visit Provider Internal Medicine
DX: N39.0 Urinary tract infection, site not specified (principal)
CPT/HCPCS: 81001; 81003; 87086; 87088; 87186

== ENCOUNTER 2023-11-03 14:59 | Outpatient (AMB) | payer OTHER, SELFPAY ==
--- NOTE | 2023-11-03 15:04 | MHC.OFFVIS ---
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 He was admitted to [facility]. Underwent number surgery for decompression of the C3/C4 spinal cord area. The patient was monitored in the intensive care but he did not require a tracheostomy. The patient has minimal movement to the upper extremities. Ultimately the patient was transferred to [facility] in [place]. There he had issues with urosepsis and was briefly admitted at [facility]. Subsequently the patient was then transferred over to an acute rehab at [facility] and [place]. While he was there he was noted to be hypoxic at nighttime. He did undergo a sleep study which was personally by me is also in the records which demonstrates that he had AHI up to 50 events an hour. Most of the events were either obstructive or hypopneas. No evidence of any significant central sleep apnea. He did desaturate down to the 70s. The patient was then placed on PAP therapy with good response. He has been tolerating the therapy. The patient ultimately after prolonged hospitalization and rehab was transferred home and now he is going to the transition of getting his care situated in the [place]. while the patient was at [facility] he was able to get a CPAP with a [place] DME. 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 The patient needs to establish with a local DME company for supplies. In addition to that the patient does have issues with a weak cough due to the high spinal cord injury. He denies any chest congestion at this time. He is currently not using any oxygen at nighttime. He does get around with the use of a power wheelchair. 10/15/2021 the patient is here for pulmonary follow-up visit. Overall he is doing well. He is working with his teen to keep him home in safe. He has been tolerating the CPAP. The CPAP therapy continues to be affecting beneficial. He is using a nasal pillow mask. He is very reluctant to use a fullface mask because of some difficulties that he has had in the past that were pretty dramatic and traumatic for him. he does complaint of a dry mouth. It is likely that he is opening his mouth while sleeping. I did provide him a chin strap that he can try along with the nasal pillows. His apnea scores are within normal limits. His cough is overall better. We did talk about the staff regarding doing manual chest PT or considering a percussion device. In addition to that I did request that they can check or point check his pulse ox while sleeping specially since he has 24 hour care to make sure that he does not require oxygen supplementation. There is still struggling to find him a [employer] company that will work under the [employer]s [employer] insurance. Once he is accepted into a [employer] company then we can continue getting supplies. 01/27/2022 the patient is here for a pulmonary follow-up visit. Overall he is doing well. He is tolerating his CPAP therapy. The CPAP therapy has been affecting beneficial. He is using nasal pillows. Although he does have issues with opening his mouth even with a chin strap and he does complain of a dry mouth. Therefore, we did talk about the importance of a fullface mask. He is willing to try 1. I did encourage him to try the F 30 medium mask. I will submit went to his [employer]. Otherwise his AHI is very good below 2 events an hour. He feels sometimes the pressure is too high so therefore I did decrease some of the pressures from a maximum of 20 down to a maximum of 14. His average pressure that he needs to treat his sleep apnea is 12.5 cmH2O. The patient does have a cough. It is mild to moderate at times. He does expectorate. He needs to be performed CPT. We his spoken before about a percussion valve. I will submit 1 again to his [employer] company. If his symptoms worsen if he gets more congested then we can consider a percussion wrap that will be more effective for him. Otherwise the patient is without any other complaints. 09/13/2022 The patient is here for a pulmonary follow up visit. Overall he is doing well. He is tolerating his CPAP therapy. The CPAP therapy has been affecting beneficial. He is using nasal mask. He could not tolerate the full face mask. Although he does have issues with opening his mouth. He needs to start isung the chin strap. Also, he was taken to the ED with encephalopathy. ABH with chronic hypercarbic respiratory failure. Not medication related per the pt. May have been related to a UTI. He was also referred to [facility] and had a holter monitor. No further episodes of confusion noted. 07/03/2023 the patient is here for a pulmonary follow-up visit. The patient overall has been doing well. Although, he has been having hard time with his fullface mask. He was doing better with the nasal pillows. He would like to go back on that type of mask. He is mouth breather and he was wearing a chinstrap in the past. Therefore will go ahead and attempt to get him back on the previous therapy. Otherwise patient is not tolerating CPAP. Will request a an urgent mask change from his [employer] company, [employer]. Hopefully they can supply them mask soon so he can start his therapy soon as possible. In the meantime he is also complaining of chest congestion. He is able to expectorate usually yellowish phlegm. Typically is on a daily basis. Denies any fevers or chills or any worsening shortness of breath. Likely has a component of chronic bronchitis. We could try macrolide therapy Monday for about a month just to see if we can improve his secretions in addition to improve his promotility issues that may be also contributing to his underlying chronic bronchitis. If the patient finds the medication helpful and he would like to stand medication would have to get an EKG to make sure that I can can tolerated. Patient also she got a chest x-ray although be difficult for him to do so we can make arrangements for him to have 1 done. Therefore, the patient is not improving on the current therapy he should have an x-ry. The order is available already. The patient also would like to decrease the pressure on his CPAP. I did go down to the maximum pressure of 12. His average pressure is around 11 so therefore we do want bring a lower than that. At the same time I made the ramp maximum 45 minutes in order for him to be able to fall asleep with the mask and then let the pressures increased. His sleep hygiene is not very good however. Will continue to monitor his progress on the CPAP. Otherwise the other option would be to check a blood gas and make sure that his CO2 is within normal limits. Will discuss that further during the next visit or if his symptoms worsen. 11/03/2023 the patient is here for a pulmonary follow-up visit. Overall he is doing well he has tolerating the nasal pillows. No significant air leakage based on his download from the machine. He still tolerates it just for short bout and then he takes it off after an hour. Seems like once the ramp is completed 45 minutes then the PAP pressures increased and he develops a hard time tolerating it. We did download the CPAP is seems that his AHI is slightly below 5. He understands that if he decrease the pressures it may be that his AHI will increase. Although at this point we need to make sure he tolerates the machine better so therefore I will decrease the pressures at this time. If the patient still has a hard time tolerating he can always call. He is also complains of the air. We also adjusted the temperature slightly from 80-78 and he can always adjusted accordingly to his comfort. The humidity is set at auto. The patient also has been little bit more sleepy. It may be from the fact that he has been using the CPAP regularly. Although because of his history of restrictive lung disease will go ahead and request blood work including a blood gas. If his CO2 is elevated then we have to consider changing his machine to a BiPAP or a noninvasive ventilator. [facility] Medical History Chronic hypercapnic respiratory failure Restrictive lung mechanics due to neuromuscular disease Paraplegia DIMAS on CPAP CAD (coronary artery disease) Paroxysmal atrial fibrillation HTN (hypertension) Surgical History History of carpal tunnel release Hx of colonoscopy Hx of rotator cuff surgery History of hip surgery Family History Father Diabetes HTN (hypertension) CVD (cardiovascular disease) Mother CVD (cardiovascular disease) Diabetes HTN (hypertension) Brother CVD (cardiovascular disease) Diabetes HTN (hypertension) Social History Alcohol intake: former Patient Tobacco Use Status: Former Tobacco user Tobacco use type: Cigarette Years Smoked: 20 years Review of Systems Const Reports daytime sleepiness, Denies difficulty sleeping, Denies fever(s) and Denies snoring Eyes Denies change in vision ENT Denies change in voice and Reports dry mouth Card Denies chest pain Resp Denies change in phlegm color, Denies chest congestion, Reports cough, Denies excessive phlegm production and Denies snoring GI Reports no additional complaints Reports as per HPI Musc Reports as per HPI Skin/Breast Denies rash Neuro Reports as per HPI Physical Exam Vital Signs: Last Vital Signs Pulse 60 11/03/23 15:06 Pulse Ox 98 11/03/23 15:06 Oxygen Delivery Method Room Air 11/03/23 15:06 BMI result Body Mass Index 33.4 Const General: alert Limitations: physical limitations (quadriplegia) Neck Neck: Yes normal visual inspection, Yes full ROM and Yes no lymphadenopathy Chest Chest palpation & inspection: normal inspection of the chest Resp Auscultation: diminished lung sounds Cardio Rate: regular rate Rhythm: regular rhythm Heart sounds: S1 normal heart sound present and S2 normal heart sound present GI Palpation (GI): Soft to palpation and nontender Auscultation: normal bowel sounds Skin General skin exam: rashes and/or lesions noted Assessment & Plan Assessment & Plan (1) DIMAS on CPAP: Code(s): G47.33 - Obstructive sleep apnea (adult) (pediatric); Z99.89 - Dependence on other enabling machines and devices Category: Medical (2) Paraplegia: Code(s): G82.20 - Paraplegia, unspecified Category: Medical (3) Restrictive lung mechanics due to neuromuscular disease: Code(s): J98.4 - Other disorders of lung; G70.9 - Myoneural disorder, unspecified Category: Medical (4) Chronic hypercapnic respiratory failure: Code(s): J96.12 - Chronic respiratory failure with hypercapnia Category: Medical Plan continue APAP therapy, adjusted pressure 6-12->4>8 .Request nasal pillows, needs to wear chin strap. Needs a new mask from DME consider using APAP during his afternoon nap venous blood gas and CXR CPT with acapella valve. Consider percussion wrap if worsens F/U 3-4 months Orders: Orders XR chest 2V 11/03/23 G70.9 - Myoneural disorder, unspecified, J96.12 - Chronic respiratory failure with hypercapnia, J98.4 - Other disorders of lung Venous Blood Gas 11/03/23 G70.9 - Myoneural disorder, unspecified, J96.12 - Chronic respiratory failure with hypercapnia, J98.4 - Other disorders of lung Coding Level of Care Code Est Pt Level 4 (53100) Diagnoses DIMAS on CPAP G47.33; Z99.89 Paraplegia G82.20 Restrictive lung mechanics due to neuromuscular disease J98.4; G70.9 Chronic hypercapnic respiratory failure J96.12 Time Spent (min) 18
[2023-11-03 15:06] VITALS: PULSE 60; O2SAT 98; BMI 33.4
== END 2023-11-03 15:32 | disposition home or self-care (01) ==
PROVIDERS: PCP Internal Medicine; Visit Provider Hospitalist
DX: G47.33 Obstructive sleep apnea (adult) (pediatric) (principal); Z99.89 Dependence on other enabling machines and devices; G82.20 Paraplegia, unspecified; J98.4 Other disorders of lung; G70.9 Myoneural disorder, unspecified; J96.12 Chronic respiratory failure with hypercapnia
CPT/HCPCS: 99214

== ENCOUNTER 2023-11-03 14:59 | Outpatient (REF) | payer OTHER, SELFPAY ==
--- NOTE | ~2023-11-03 | XR_ITS ---
EXAMINATION: XR CHEST CLINICAL INFORMATION: Patient states shortness of breath, unable to lift arms, best images possible per technologist. COMPARISON: 08/14/2022. TECHNIQUE: 2 views of the chest were obtained. FINDINGS: There is no gross pneumothorax. Lung volumes are low. Borderline enlargement of cardiac silhouette. Degenerative changes in the thoracic spine. No pleural effusion. No new focal consolidation to suggest pneumonia. Limited visualization on the lateral view due to overlying arm as patient unable to lift arm. Deformity of multiple left ribs redemonstrate characteristics of prior fractures. XR/XR chest 2V IMPRESSION: 1. No evidence of pneumonia. 2. Borderline enlargement of cardiac silhouette.
[2023-11-03 16:07] LABS: VBG pCO2 41 mmHg; VBG pH 7.48 (7.32-7.43); VBG pO2 85 mmHg
[2023-11-03 16:08] LABS: VBG HCO3 30 mmol/L (22-26)
[2023-11-03 16:09] LABS: Venous Blood Gas Refer to POC result
[2023-11-03 16:44] LABS: Anion Gap 13 (12-20); Blood Urea Nitrogen 11 mg/dL (9-16); Calcium 9.1 mg/dL (8.4-10.2); Carbon Dioxide 27 mmol/L (22-29); Chloride 95 mmol/L (96-108); Estimated Glomerular Filt Rate > 60; Glucose Random 111 mg/dL (60-115); Potassium 4.3 mmol/L (3.3-5.1); Sodium 131 mmol/L (135-145)
== END 2023-11-03 15:00 | disposition home or self-care (01) ==
LOC: HO.LAB 14:59
PROVIDERS: PCP Internal Medicine; Visit Provider Hospitalist
DX: K21.9 Gastro-esophageal reflux disease without esophagitis (principal); J96.12 Chronic respiratory failure with hypercapnia; J98.4 Other disorders of lung; G70.9 Myoneural disorder, unspecified; G47.33 Obstructive sleep apnea (adult) (pediatric); Z99.89 Dependence on other enabling machines and devices
CPT/HCPCS: 36415; 71046; 80048; 82803; 99212

== ENCOUNTER 2023-11-13 19:25 | Inpatient (IN) | payer OTHER, SELFPAY ==
[2023-11-13] VITALS (9 sets, daily range): BP systolic 108–144; BP diastolic 48–70; PULSE 69–89; RESP 14–20; TEMP 36.4–39.1; O2SAT 94–96; BMI 32.0
--- NOTE | ~2023-11-13 | XR_ITS ---
EXAMINATION: XR CHEST CLINICAL INFORMATION: Fever. COMPARISON: 11/03/2023. TECHNIQUE: Frontal view of the chest was obtained. FINDINGS: The patient is mildly rotated. The cardiomediastinal silhouette is stable. There is no focal lung consolidation or pleural effusions. The bony structures and soft tissues are unremarkable. XR/XR chest 1V IMPRESSION: No acute cardiopulmonary process.
--- NOTE | ~2023-11-13 | CT_ITS ---
EXAMINATION: CT ABDOMEN AND PELVIS WITHOUT CONTRAST CLINICAL INFORMATION: Hematuria COMPARISON: August 1621 TECHNIQUE: Multidetector volumetric imaging was performed from the superior aspect of the liver through the pubic symphysis. Sagittal and coronal reformatted images were obtained on the technologist's workstation. This CT examination was performed using dose optimization techniques as appropriate, variously including the following: *Automated exposure control *Adjustment of mA and/or kV according to patient size (this includes techniques or standardized protocols for targeted exams where dose is matched to indication/reason for exam; i.e. extremities or head) *Use of iterative reconstruction technique DLP: 944 mGy-cm FINDINGS: LUNG BASES: There is small bilateral pleural effusion. Coronary artery calcifications present. There is trace of pericardial effusion. Large hiatal hernia. LIVER, GALLBLADDER, AND BILIARY TREE: The liver is normal in size, shape, and attenuation. No focal hepatic lesion or biliary ductal dilatation is present. There are multiple gallstones without pericolic cystic fluid collection or wall thickening. PANCREAS: Unremarkable. SPLEEN: Spleen is enlarged measured 16 cm. ADRENAL GLANDS: Unremarkable. KIDNEYS AND URETERS: Left kidney revealed 0.9 x 1.4 cm stone in upper pole, partially obstructing stone in left renal pelvis measured 0.9 cm, perinephric stranding, hydronephrosis and cyst in interpolar cortex, measured 3.4 x 3.3 cm. The rest of left ureter is dilated with periureteral stranding but no urolithiasis. Right kidney demonstrate no hydroureteronephrosis or nephrolithiasis mildly for collecting system and mild perinephric stranding. BLADDER: Urinary bladder decompressed with suprapubic catheter an inflated balloon GASTROINTESTINAL TRACT: There are scattered diverticula but no diverticulitis there is small amount of ascites seen along the left flank seen. Normal appendix visualized. There is large hiatal hernia. Small bowel loops are unremarkable ABDOMINAL WALL: No significant hernia is appreciated. LYMPH NODES: Scattered small mesenteric lymph nodes present. There is nonspecific VASCULAR: Unremarkable. PELVIC VISCERA: Unremarkable. OSSEOUS STRUCTURES: There are multilevel degenerative changes in lumbar spine without compression deformities There is a battery of neurostimulator seen on the right subcutaneously with thin wires entering spine at the level of T12-L1 CT/CT abdomen pelvis wo IV con IMPRESSION: 1. Left-sided nephrolithiasis with hydronephrosis and perinephric/periureteral stranding. 2. Cholelithiasis without cholecystitis. 3. Splenomegaly. 4. Diverticulosis without diverticulitis. 5. Small bilateral pleural effusion and trace of pericardial effusion. 6. Large hiatal hernia. 7. Small amount of ascites along the left flank. Fleischner guidelines were followed.
--- NOTE | 2023-11-13 19:44 | ED_ITS ---
HPI - Male Genitourinary General Chief complaint: Urogenital-Male Stated complaint: BLOOD IN URINE, DISCHARGE FROM [facility] PER EMS Time Seen by Provider: 11/13/23 19:36 Source: patient Mode of arrival: ambulatory Limitations: no limitations History of Present Illness ED Provider: Uziel Munoz PA-C HPI Narrative: 73-year-old male history of chronic respiratory failure, CAD, afib, paraplegic, GERD, HTN presents to the ED for fever, chills, altered mental status and blood in the [place]. dietetic aide states patient has had fever at the facility and is usually more alert. Related Data Home Medications ?Medication ?Instructions ?Recorded ?Confirmed CPAP (CPAP Machine/Device) 07/19/21 08/14/23 apixaban 5 mg tablet (Eliquis) 5 mg PO Q12H 07/19/21 08/14/23 ascorbic acid (vitamin C) 250 mg 250 mg PO BID 07/19/21 08/14/23 tablet pantoprazole 40 mg tablet,delayed 40 mg PO BID 07/19/21 08/14/23 release baclofen 2,000 mcg/mL intrathecal 207 mcg intrathecal DAILY 10/15/21 08/14/23 solution gabapentin 300 mg capsule 300 mg PO TID 10/15/21 08/14/23 methenamine hippurate 1 gram tablet 1 g PO BID 01/27/22 08/14/23 docusate sodium 100 mg capsule 100 mg PO BID PRN constipation 06/08/23 08/14/23 escitalopram oxalate 10 mg tablet 10 mg PO DAILY 06/08/23 08/14/23 multivitamin 1 tab PO DAILY 06/08/23 08/14/23 baclofen 10 mg tablet 10 mg PO TID 07/03/23 08/14/23 melatonin 10 mg tablet,extended 10 mg PO BEDTIME 07/03/23 08/14/23 release Previous Rx's ?Medication ?Instructions ?Recorded azithromycin 250 mg tablet 250 mg PO 3XW 28 days #12 tabs 07/03/23 Allergies Allergy/AdvReac Type Severity Reaction Status Date / Time No Known Allergies Allergy Verified 11/13/23 19:34 [No Known Allergies*] Review of Systems 2 Review of Systems: fever, alteretemtnal statuts Yes all other systems are reviewed and are negative PMFSH Past Medical History Medical History Chronic hypercapnic respiratory failure Restrictive lung mechanics due to neuromuscular disease Paraplegia LATANYA on CPAP CAD (coronary artery disease) Paroxysmal atrial fibrillation HTN (hypertension) Surgical History History of carpal tunnel release Hx of colonoscopy Hx of rotator cuff surgery History of hip surgery Family History Family History Father Diabetes HTN (hypertension) CVD (cardiovascular disease) Mother CVD (cardiovascular disease) Diabetes HTN (hypertension) Brother CVD (cardiovascular disease) Diabetes HTN (hypertension) Social History Social History Household Members: Spouse Housing: House Do you presently have visiting nurse or other home services: Yes (visiting nurses, cnas daily) Alcohol intake: former Patient Tobacco Use Status: Former Tobacco user Tobacco use type: Cigarette Years Smoked: 20 years Physical Exam 2 Vital Signs: Vital Signs: Last Vital Signs Temp 97.5 F 11/13/23 22:20 Pulse 69 11/13/23 23:28 Resp 16 11/13/23 23:28 BP 108/50 L 11/13/23 23:28 Pulse Ox 95 11/13/23 23:28 O2 Del Method CPAP 11/13/23 23:28 BMI result Body Mass Index 32.0 Const: General: cooperative, healthy appearing, comfortable, no acute distress, well developed, alert, awake and Physically active HEENT: Head: Yes normal to inspection, Yes No palpable skull fracture present, Yes normocephalic, Yes atraumatic and No abrasion Eyes: General: appearance normal, both eyes and all related structures Neck: Neck: Yes normal visual inspection, Yes full ROM, Yes no lymphadenopathy, Yes no meningeal signs, Yes trachea midline, Yes supple, No anterior neck swelling and No tender Chest: Chest palpation & inspection: normal inspection of the chest and normal palpation of entire chest wall Resp: Effort & Inspection: normal respiratory effort and able to speak in complete sentences Auscultation: clear to auscultation bilaterally Cardio: Jugular venous distension: no JVD Heart sounds: S1 normal heart sound present and S2 normal heart sound present GI: Inspection: Yes normal to inspection Palpation (GI): Soft to palpation, not firm, nontender, no guarding and not rigid : Other: Patient has suprapubic catheter, draining blood. General: No CVA tenderness and Yes no CVA tenderness Back/Spine/Pelvis: Back: no CVA tenderness, No CVA tenderness and No back tenderness Skin: General skin exam: no rashes or lesions noted and elasticity normal Neuro: Other: Patient paraplegic. Patient is slightly altered due to fever General: no meningeal signs Extrem: Other: Paraplegia Psych: Appearance: grossly normal, well kempt and not disheveled Medications Administered Discontinued Medications Generic Name Dose Route Start Last Admin Trade Name Freq PRN Reason Stop Dose Admin Acetaminophen 975 mg 11/13/23 20:02 11/13/23 20:05 Acetaminophen 325 Mg Tablet PO 11/13/23 20:03 975 mg ONCE ONE Administration Sodium Chloride 1,000 mls @ 999 mls/hr 11/13/23 19:40 11/13/23 20:57 Ns IV 11/13/23 20:40 Infused .Q1H1M STA Infusion Ceftriaxone Sodium 1 gm/ 50 mls @ 100 mls/hr 11/13/23 19:42 11/13/23 20:27 Sodium Chloride IV 11/13/23 20:11 Infused ONCE ONE Infusion Sodium Chloride 1,000 mls @ 999 mls/hr 11/13/23 21:35 11/13/23 22:40 Ns IV 11/13/23 22:35 Infused .Q1H1M STA Infusion Sodium Chloride 1,000 mls @ 999 mls/hr 11/13/23 22:32 11/13/23 23:48 Ns IV 11/13/23 23:32 Infused .Q1H1M STA Infusion Sodium Chloride 1,000 mls @ 999 mls/hr 11/13/23 23:30 11/13/23 23:51 Ns IV 11/14/23 00:30 999 mls/hr .Q1H1M PAUL Administration Medical Decision Making Medical Decision Making MDM Narrative: 73-year-old male presents to ED for 4 fever, altered mental status, and blood in the [place]. Sepsis protocol called. Patient treated as a UTI. Labs lactic antibiotics fluids ordered 1:00am: Patient's suprapubic [place] was flushed out that has no longer blood going into the [place] bag. Patient to be admitted to hospitalist for UTI and DYLAN. Case discussed with Dr. Marin with hospitalist who accepts the case. Patient more alert oriented x3 Differential Diagnosis Differential Diagnoses: The differential diagnosis associated with the presentation includes (UTI, pyelonephritis, urosepsis) Admission/Observation Consideration of admission/observation: Escalation of care including admission/observation considered Consult Healthcare Provider Management of the patient was discussed with: Hospitalist (Dr. Marin) Lab Data 11/13/23 19:53 11/13/23 20:29 Labs: Lab Results 11/13/23 11/13/23 11/13/23 Range/Units 19:53 20:29 20:35 WBC 28.1 H (4.8-10.8) X10*3/uL RBC 3.66 L (4.60-5.80) X10*6/uL Hgb 9.4 L (14.0-18.0) g/dl Hct 28.2 L (42.0-52.0) % MCV 77.0 L (80.0-98.0) fL MCH 25.7 L (27.0-33.0) pg MCHC 33.3 (31.0-36.0) g/dl RDW 15.4 (11.0-16.0) % Plt Count 394 D (160-400) X10*3/uL MPV 9.0 L (9.4-12.4) fL Immature Gran % (Auto) Cancelled Neut % (Auto) Cancelled Lymph % (Auto) Cancelled [place] % (Auto) Cancelled Eos % (Auto) Cancelled Baso % (Auto) Cancelled Lymph # (Auto) Cancelled [place] # (Auto) Cancelled Eos # (Auto) Cancelled Baso # (Auto) Cancelled Abs Immat Gran (auto) Cancelled Absolute Neuts (auto) Cancelled Absolute Nucleated RBC 0.000 (0.0-0.012) X10*3/uL Nucleated RBC % (auto) 0.0 (0.0-0.2) /100WBC Neutrophils % (Manual) 85 H (45-73) % Band Neutrophils % 9 H (3-5) % Lymphocytes % (Manual) 2 L (20-40) % Monocytes % (Manual) 4 (2-11) % Abs Neuts (Manual) 26.4 H (2.0-8.3) X10*3/uL Lymphocytes # (Manual) 0.6 L (1.2-4.9) X10*3/uL Monocytes # (Manual) 1.1 (0.1-1.2) X10*3/uL Platelet Estimate NORMAL (NORMAL) Plt Morphology Comment NORMAL RBC Morphology NOTED Polychromasia 1+ (0-2) /OIF Ovalocytes 1+ (5-14) /OIF Smear Tech's Comments MANUAL DIFF PT 20.5 H (11.1-13.3) SEC INR 1.7 H (0.9-1.1) APTT 32.1 (26.0-36.8) SEC Sodium 123 L (135-145) mmol/L Potassium 4.6 (3.3-5.1) mmol/L Chloride 89 L (96-108) mmol/L Carbon Dioxide 22 (22-29) mmol/L Anion Gap 17 (12-20) BUN 31 H (9-16) mg/dL Creatinine 1.44 H (0.5-1.4) mg/dL Estim Creat Clear Calc 57.8 Estimated GFR 48 Random Glucose 115 (60-115) mg/dL Lactic Acid 0.8 (0.5-2.0) mmol/L Calcium 8.7 (8.4-10.2) mg/dL Total Bilirubin 0.4 (0.0-1.0) mg/dL AST 19 (5-37) U/L ALT 15 (0-40) U/L Alkaline Phosphatase 140 H (39-117) U/L Total Protein 7.2 (6.5-8.0) g/dL Albumin 2.9 L (3.5-5.0) g/dL Urine Color BROWN Urine Appearance Turbid Urine pH 6.5 (5.0-9.0) Ur Specific [place] >= 1.030 H (1.005-1.025) Urine Protein 300 (3+) H (Neg-Trace) mg/dL Urine Glucose (UA) Negative (Negative) mg/dL Urine Ketones Trace (Negative) mg/dL Urine Blood Large (3+) H (Negative) Urine Nitrite Positive H (Negative) Ur Leukocyte Esterase Moderate (2+) H (Negative) Urine RBC >20 H (0-2) /HPF Urine WBC >50 (0-5) /HPF Ur Squamous Epith Cells 3-5 (0-2) /HPF Urine Bacteria None Seen (None Seen) Hyaline Casts 0-2 (0-2) /LPF Influenza Type A (PCR) NEGATIVE (Negative) Influenza Type B (PCR) NEGATIVE (Negative) RSV RNA Qual (PCR) NEGATIVE (Negative) SARS-CoV-2 RNA (RT-PCR) NEGATIVE (Negative) Independent Historian Clinical information obtained from an independent historian. History obtained from or confirmed by: Other (Patient) External Record Review External record reviewed: Other (Prior visits) Critical Care Time Critical Care Time Critical Care Time: Yes Total Critical Care Time: 60 Attestation: Patient presents as sepsis. Sepsis called. Labs ordered. Fluids ordered. Antibiotics ordered. [place] flushed to clear out blood. Discharge Plan Discharge Clinical Impression: Sepsis, Catheter-associated urinary tract infection, DYLAN (acute kidney injury) Patient Disposition: Admitted As Inpatient Interventions: Admission Worksheet (ED) Last Done: 11/13/23 23:31 Discharge Date/Time: 11/14/23 00:22
[2023-11-13] MEDS: 0.9 % Sodium Chloride 1,000 ML 999 ML IV ×4 (19:56→23:51)
[2023-11-13] MEDS: cefTRIAXone sodium 1 GM in 0.9 % Sodium Chloride 50 ML IV (19:57)
[2023-11-13] MEDS: Acetaminophen 325 MG TABLET 975 MG PO (20:05)
--- NOTE | 2023-11-13 20:08 | PC.NURSE ---
pt biba from home, pt is usually a&ox4, now he is only a&ox2. pt has 24 care due to being a quadriplegic, 3D SPECIALIST reporting increased AMS and blood in catheter. pt has supra pubic in place.upon arrival, pt noted to have fever. due to AMS and fever, Uziel MEDLEY aware and sepsis alert called at this time. 20G placed in right wrist, labs obtained and sent. fluids and antibiotics administered at this time. per Uziel MEDLEY 1L normal saline due at this time due to pt not being hypotennsive. urine obtained from antonio bag. pt normal sinus on tele 82-84bpm.
[2023-11-13 20:11] LABS: Hematocrit 28.2 % (42.0-52.0); Hemoglobin 9.4 g/dl (14.0-18.0); Mean Corpuscular HGB Conc 33.3 g/dl (31.0-36.0); Mean Corpuscular Hemoglobin 25.7 pg (27.0-33.0); Platelet Count 394 X10*3/uL (160-400); Red Blood Count 3.66 X10*6/uL (4.60-5.80); Red Cell Distribution Width 15.4 % (11.0-16.0); White Blood Count 28.1 X10*3/uL (4.8-10.8)
--- NOTE | 2023-11-13 20:14 | PC.NURSE ---
pt medicated with tylenol at this time, pt able to tolerate one pill at a time. needs direction to open mouth.
[2023-11-13 20:20] LABS: Lactic Acid 0.8 mmol/L (0.5-2.0)
[2023-11-13 20:22] LABS: INTERNATIONAL NORM RATIO 1.7 (0.9-1.1); Prothrombin Time 20.5 SEC (11.1-13.3)
[2023-11-13 20:25] LABS: Partial Thromboplastin Time 32.1 SEC (26.0-36.8)
[2023-11-13 20:27] LABS: Appearance Urine Turbid; Color Urine BROWN; Glucose Urine UA Negative (Negative); Leukocyte Esterase Urine Moderate (2+) (Negative); Nitrite Urine Positive (Negative); PH 6.5 (5.0-9.0); Specific Gravity - Urine >= 1.030 (1.005-1.025); UMIC TRIGGER UACC YES; Urine Blood Large (3+) (Negative); Urine Ketones Trace mg/dL (Negative); Urine Protein 300 (3+) mg/dL (Neg-Trace)
[2023-11-13 20:40] LABS: Bacteria Urine None Seen (None Seen); Hyaline Casts Urine 0-2 /LPF (0-2); RBC Urine >20 /HPF (0-2); UACC Culture Trigger YES; WBC Urine >50 /HPF (0-5)
--- NOTE | 2023-11-13 20:43 | PC.NURSE ---
Uziel MEDLEY aware of pt temperature at this time.
[2023-11-13 20:54] LABS: Alanine Aminotransferase 15 U/L (0-40); Albumin Level 2.9 g/dL (3.5-5.0); Alkaline Phosphatase 140 U/L (39-117); Anion Gap 17 (12-20); Aspartate Amino Transferase 19 U/L (5-37); Bilirubin Total 0.4 mg/dL (0.0-1.0); Blood Urea Nitrogen 31 mg/dL (9-16); Calcium 8.7 mg/dL (8.4-10.2); Carbon Dioxide 22 mmol/L (22-29); Chloride 89 mmol/L (96-108); Creatinine Clr Calc Pharmacy 57.8; Estimated Glomerular Filt Rate 48; Glucose Random 115 mg/dL (60-115); Potassium 4.6 mmol/L (3.3-5.1); Sodium 123 mmol/L (135-145); Total Protein 7.2 g/dL (6.5-8.0)
--- NOTE | 2023-11-13 21:08 | PC.NURSE ---
this rn at bedside with Uziel MEDLEY, pt supra pubic catheter irrigated at this time. all blood removed, new drainage bag placed. urine draining clear at this time.
[2023-11-13 21:16] LABS: Influenza A PCR NEGATIVE (Negative); Influenza B PCR NEGATIVE (Negative); Resp Syncy Virus RNA Qual PCR NEGATIVE (Negative); SARS COV2 PCR INHOUSE NEGATIVE (Negative)
[2023-11-13 21:40] LABS: SLIDE REVIEW MANUAL DIFF
[2023-11-13 21:46] LABS: Band Neutrophils Percent 9 % (3-5); Lymphocytes Absolute Manual 0.6 X10*3/uL (1.2-4.9); Lymphocytes Percent Manual 2 % (20-40); Monocytes Absolute Manual 1.1 X10*3/uL (0.1-1.2); Monocytes Percent Manual 4 % (2-11); Neutrophils Absolute Manual 26.4 X10*3/uL (2.0-8.3); Neutrophils Percent Manual 85 % (45-73)
[2023-11-13 21:48] LABS: Ovalocytes 1+ (5-14) /OIF; Platelet Estimate NORMAL (NORMAL); Platelet Morphology Comment NORMAL; Polychromasia 1+ (0-2) /OIF; RBC Morphology NOTED
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
--- NOTE | 2023-11-13 23:09 | PC.NURSE ---
at this time, pt de sat to 70% while sleeping. HYDROLOGY TEACHER at bedside reports pt wears CPAP at night. pt woken up, placed on 2L nasal cannula, sating 100%. aware, RT called to bedside to place pt on night time CPAP.
[2023-11-14] VITALS (7 sets, daily range): BP systolic 120–132; BP diastolic 56–63; PULSE 72–89; RESP 16–20; TEMP 36.2–37.7; O2SAT 96–98; BMI 32.0
[2023-11-14 01:52] LABS: Anion Gap 16 (12-20); Blood Urea Nitrogen 29 mg/dL (9-16); Calcium 8.6 mg/dL (8.4-10.2); Carbon Dioxide 18 mmol/L (22-29); Chloride 95 mmol/L (96-108); Creatinine Clr Calc Pharmacy 72.3; Estimated Glomerular Filt Rate > 60; Glucose Random 107 mg/dL (60-115); Potassium 3.6 mmol/L (3.3-5.1); Sodium 125 mmol/L (135-145)
--- NOTE | 2023-11-14 02:45 | HO.SKINPHOTO ---
Location: bilateral buttock Category: pressure injury Stage: Length: Width: Depth: cm Location: Category: Stage: Length: Width: Depth: cm Location: Category: Stage: Length: Width: Depth: cm Location: Category: Stage: Length: Width: Depth: cm Location: Category: Stage: Length: Width: Depth: cm Location: Category: Stage: Length: Width: Depth: cm
[2023-11-14] MEDS: 0.9 % Sodium Chloride Flush 3 ML SYRINGE IVFLUSH ×3 (04:00→19:54)
[2023-11-14] MEDS: Pantoprazole Sodium 40 MG/10 ML VIAL IVPUSH (05:38)
[2023-11-14 06:59] LABS: Basophils Absolute Auto 0.1 X10*3/uL (0.0-0.2); Basophils Percent Auto 0.3 % (0-2); Eosinophils Percent Auto 0.1 % (0-4); Hematocrit 22.9 % (42.0-52.0); Hemoglobin 7.7 g/dl (14.0-18.0); Lymphocytes Absolute Auto 0.5 X10*3/uL (1.2-4.9); Lymphocytes Percent Auto 2.7 % (20-40); MANUAL DIFF FLAG SCAN; Mean Corpuscular HGB Conc 33.6 g/dl (31.0-36.0); Mean Corpuscular Hemoglobin 25.7 pg (27.0-33.0); Mean Corpuscular Volume 76.3 fL (80.0-98.0); Mean Platelet Volume 8.4 fL (9.4-12.4); Neutrophils Absolute Auto 17.5 x10*3/uL (2.0-8.3); Neutrophils Percent Auto 90.9 % (45-73); Platelet Count 305 X10*3/uL (160-400); Red Cell Distribution Width 15.4 % (11.0-16.0); SCAN SMEAR FLAG 1; White Blood Count 19.3 X10*3/uL (4.8-10.8)
[2023-11-14 07:06] LABS: Alanine Aminotransferase 14 U/L (0-40); Albumin Level 2.5 g/dL (3.5-5.0); Alkaline Phosphatase 122 U/L (39-117); Anion Gap 13 (12-20); Aspartate Amino Transferase 18 U/L (5-37); Bilirubin Total 0.3 mg/dL (0.0-1.0); Blood Urea Nitrogen 28 mg/dL (9-16); Calcium 8.5 mg/dL (8.4-10.2); Carbon Dioxide 20 mmol/L (22-29); Chloride 97 mmol/L (96-108); Estimated Glomerular Filt Rate > 60; Glucose Random 112 mg/dL (60-115); Potassium 3.7 mmol/L (3.3-5.1); Sodium 126 mmol/L (135-145); Total Protein 6.4 g/dL (6.5-8.0)
[2023-11-14 07:45] LABS: SLIDE REVIEW VERIFIED
--- NOTE | 2023-11-14 09:26 | PHA.MEDREC ---
Pharmacy Consult ? Medication Reconciliation Pharmacy has completed the medication reconciliation Pt has alerted mental status. Spoke with health care proxy at bedside, he was able to provide a home list of medications from to confirm medications.
--- NOTE | 2023-11-14 10:14 | MHC.CLN ---
PT WITH INCREASED NUTRITION RISK R/T PRESSURE INJURY PT IS CURRENTLY NPO WHEN DIET TO ADVANCE, RECOMMEND ADDING HIGH PROTEIN SUPPLEMENT TO PROMOTE WOUND HEALING MONITOR FOR DIET ADVANCEMENT SEE ALSO FULL CLINICAL NUTRITION ASSESSMENT
[2023-11-14] MEDS: Apixaban 5 MG TABLET PO ×2 (10:57→19:54)
[2023-11-14] MEDS: Ascorbic Acid 250 MG TABLET PO ×2 (10:57→19:54)
[2023-11-14] MEDS: Baclofen 10 MG TABLET PO ×3 (10:57→19:54)
[2023-11-14] MEDS: Escitalopram Oxalate 10 MG TABLET PO (10:57)
--- NOTE | 2023-11-14 11:10 | MHC.CM.PN ---
Pt lives at home with his , he receives 28/11 [employer] ATTEND[employer] services. Pt is fully dependent with care and wheelchair bound/bedbound. Pt has a hospital bed at home in addition to his wheelchair. HCP on file and verified. Pt will need BLS transport home. PCP: Dr. Aba Linares
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
[2023-11-14] MEDS: Gabapentin 300 MG CAPSULE PO ×2 (14:58→19:54)
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
--- NOTE | 2023-11-14 17:24 | HO.WOUND ---
Wound Consult: Initial 73yr old?[place] [facility] [place] - See progress notes and H&P for detailed history.? Wound consult placed for sacral wound POA.? Patient agreeable to assessment and photo documentation.? Sacrum Etiology: Stage 2 Pressure Injury - Present on Admission Measurements: 1.2cm x 1cm x 0.1cm Wound Bed: pale pink wound bed Drainage / Odor: None Edges: ? defined Emely wound: Intact blanchable redness and light purple intact tissue -consistent with chronic MASD - bilateral ischium noted for redness - remains intact and blanchable No Induration, Fluctuance or Warmth noted Pain: none noted Goals of Treatment: ? Triad and Foam dressing Left Elbow noted for stage 2 pressure injury - red dry pink nonblanchable tissue - partial thickness tissue loss - foam dressing to be applied Right Elbow noted for stage 1 pressure injury - pink nonblanchable tissue - foam dressing to be applied Recommendations: 1. Turn and Reposition every 2 hours and as needed for patient comfort.? Use pillows or wedges to support off loading positions. 2. Off Load all bony prominences with use of pillows and heel boots if needed.? Apply Preventative foams where needed. ? 3. Monitor for incontinence and moisture control, use barrier creams when needed for prevention and treatment. 4. Provide adequate and supplemental nutrition.? 5. Order or Continue low air loss mattress. 6. When applicable maintain blood glucose levels per Providers order. 7. Sacrum - Off Load Pressure - Cleanse with PH balance spray or wipes, pat dry. ?Apply thin layer of Triad to wound bed. Do not remove all of paste between applications as this may cause further skin damage.? Cover with foam dressing to aid in off loading and protection from friction. Change every other day and PRN. 8. Bilateral Elbows - Off Load Pressure - Apply foam dressings peel back and assess Q shift and change every 5 days. Re-consult wound care Nurse for wound deterioration or wound changes.
[2023-11-14 17:39] LABS: Osmolality Urine 297 mosm/kg (373-1093)
[2023-11-14] MEDS: Methenamine Hippurate 1 GM TABLET PO (19:54)
[2023-11-14] MEDS: Pantoprazole Sodium 20 MG TABLET.DR 40 MG PO (19:54)
[2023-11-14] MEDS: cefTRIAXone sodium 1 GM in 0.9 % Sodium Chloride 50 ML IV (19:55)
[2023-11-15] VITALS (10 sets, daily range): BP systolic 119–141; BP diastolic 57–69; PULSE 63–73; RESP 15–20; TEMP 36.2–36.7; O2SAT 91–99
--- NOTE | 2023-11-15 04:26 | PC.NURSE ---
Pt AOx2, denies pain at this time. Private PERSONALIZATION SPECIALIST bedside w/pt. Pt refused to wear CPAP tonight, did not like full face mask. Informed pt and private PERSONALIZATION SPECIALIST can bring in pt's personal CPAP if they are willing to bring it in. Private PERSONALIZATION SPECIALIST stated he would pass it on. Call sanchez within reach. Bed alarm on.
[2023-11-15 06:46] LABS: Hematocrit 22.1 % (42.0-52.0); Hemoglobin 7.4 g/dl (14.0-18.0); Mean Corpuscular HGB Conc 33.5 g/dl (31.0-36.0); Mean Corpuscular Hemoglobin 25.5 pg (27.0-33.0); Mean Corpuscular Volume 76.2 fL (80.0-98.0); Mean Platelet Volume 8.7 fL (9.4-12.4); Platelet Count 285 X10*3/uL (160-400); Red Cell Distribution Width 15.4 % (11.0-16.0); White Blood Count 12.3 X10*3/uL (4.8-10.8)
[2023-11-15 07:07] LABS: Anion Gap 11 (12-20); Blood Urea Nitrogen 26 mg/dL (9-16); Calcium 8.6 mg/dL (8.4-10.2); Carbon Dioxide 22 mmol/L (22-29); Chloride 95 mmol/L (96-108); Creatinine Clr Calc Pharmacy 95.6; Estimated Glomerular Filt Rate > 60; Glucose Fasting 123 mg/dL (60-99); Potassium 3.1 mmol/L (3.3-5.1); Sodium 125 mmol/L (135-145)
[2023-11-15 07:19] LABS: Osmolality, Serum 265 mosm/kg (281-305)
[2023-11-15 07:24] LABS: TSH reflex Free T4 1.07 uIU/mL (0.32-4.0)
[2023-11-15] MEDS: 0.9 % Sodium Chloride 1,000 ML 80 ML IVCONT (09:33)
[2023-11-15] MEDS: Apixaban 5 MG TABLET PO (09:35)
[2023-11-15] MEDS: Escitalopram Oxalate 10 MG TABLET PO (09:35)
[2023-11-15] MEDS: Pantoprazole Sodium 20 MG TABLET.DR 40 MG PO ×2 (09:35→20:30)
[2023-11-15] MEDS: Methenamine Hippurate 1 GM TABLET PO ×2 (09:35→20:30)
[2023-11-15] MEDS: Ascorbic Acid 250 MG TABLET PO ×2 (09:35→20:31)
[2023-11-15] MEDS: Urea 15 GM POWDER PO ×2 (09:35→20:30)
[2023-11-15] MEDS: Multivitamin TABLET 1 TAB PO (09:35)
[2023-11-15] MEDS: Gabapentin 300 MG CAPSULE PO ×3 (09:35→20:30)
[2023-11-15] MEDS: Potassium Chloride ER 20 MEQ TAB.ER.PRT 40 MEQ PO (09:35)
[2023-11-15] MEDS: Baclofen 10 MG TABLET PO ×3 (09:35→20:30)
--- NOTE | 2023-11-15 11:49 | MHC.CM.PN ---
Pt requiring continued acute care for UTI and Sepsis. DCP is home via BLS, resume home care services.
--- NOTE | 2023-11-15 11:59 | MHC.CLN ---
F/U PT WITH INCREASED NUTRITION RISK R/T PRESSURE INJURY DIET ADVANCED TO REGULAR NOTED SERUM NA 125-RECOMMEND 1500ML FLUID RESTRICTION RECOMMEND ADDING ENSURE BID TO PROMOTE WOUND HEALING SUPP TO PROVIDE 700KCALS, 40G PROTEIN, 360ML FREE WATER FOR F.R. MONITOR PO INTAKE AND ENCOURAGE SUPPLEMENTS
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
[2023-11-15 12:31] LABS: Iron 8 mcg/dL (45-160); Percent Iron Saturation 6 % (15-50); Total Iron Binding Capacity 130 mcg/dL (228-428); Unsaturated Iron Binding 122 ug/dL
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
[2023-11-15 13:26] LABS: Hematocrit 22.2 % (42.0-52.0); Hemoglobin 7.4 g/dl (14.0-18.0)
--- NOTE | 2023-11-15 15:55 | P.PNNP_ITS ---
Subjective Subjective Date of Service: 11/15/23 Interval history: Events noted Na unchanged Hematuria resolving Physical Exam 2 Vital Signs: Vital Signs: Last Vital Signs Temp 98 F 11/15/23 15:00 Pulse 63 11/15/23 15:00 Resp 20 11/15/23 15:00 BP 127/59 L 11/15/23 15:00 Pulse Ox 96 11/15/23 11:40 O2 Del Method Nasal Cannula 11/15/23 11:40 BMI result Body Mass Index 32.0 Const: General: ill appearing Neck: Neck: Yes supple Resp: Auscultation: clear to auscultation bilaterally Cardio: Palpation: no palpable S3 Heart sounds: no rubs GI: Palpation (GI): Soft to palpation Auscultation: normal bowel sounds Neuro: Motor exam (neuro): no asterixis Objective Data Labs 11/15/23 13:08 11/15/23 06:24 Labs: Laboratory Results - last 24 hr 11/14/23 11/15/23 11/15/23 16:43 06:24 13:08 WBC 12.3 H RBC 2.90 L Hgb 7.4 L 7.4 L Hct 22.1 L 22.2 L MCV 76.2 L MCH 25.5 L MCHC 33.5 RDW 15.4 Plt Count 285 MPV 8.7 L Absolute Nucleated RBC 0.000 Nucleated RBC % (auto) 0.0 Sodium 125 L Potassium 3.1 L Chloride 95 L Carbon Dioxide 22 Anion Gap 11 L BUN 26 H Creatinine 0.87 Estim Creat Clear Calc 95.6 Estimated GFR > 60 Fasting Glucose 123 H Osmolality 265 L Calcium 8.6 Iron 8 L TIBC 130 L % Saturation 6 L Unsat Iron Binding 122 TSH 1.07 Urine Osmolality 297 L Ur Random Sodium 34.0 Urine Creatinine 40.70 Blood Type A Positive Antibody Screen NEGATIVE Crossmatch See Detail Microbiology Microbiology Results: Microbiology 11/13/23 19:53 Urine Catheterized - Gregg Catheter Urine Culture - Preliminary Gram negative nitish 11/13/23 19:54 Blood - Venous Blood Culture - Preliminary No growth after 24 hours. 11/13/23 19:53 Blood - Venous Blood Culture - Preliminary No growth after 24 hours. Procedures Date of Service Date of Service: 11/15/23 Assessment & Plan Assessment and plan (1) DYLAN (acute kidney injury): Status: Acute (2) Hyponatremia: Status: Acute (3) Catheter-associated urinary tract infection: Status: Acute Plan DYLAN due to volume depletion. Renal function is improving with hydration. Keep intake more than output with isotonic saline. Expect renal recovery. Hyponatremia due to hypovolemia. Differential would include non osmotic ADH release. Citalopram would be a contributing factor as well. Limit hypotonic fluids. Keep I > O with NS If pNA does not improve by tomorrow, will add UREA 15 m PO BID x 4 doses Time Spent With Patient Time: Total time managing care of this patient today ____ minutes. Progress Note: Quality Stroke Does the patient have a stroke diagnosis?: No
[2023-11-15] MEDS: cefTRIAXone sodium 1 GM in 0.9 % Sodium Chloride 50 ML IV (20:30)
[2023-11-16] MEDS: 0.9 % Sodium Chloride 1,000 ML 80 ML IVCONT ×2 (00:04→11:41)
[2023-11-16 03:38] VITALS: BP 126/58; PULSE 60; RESP 18; TEMP 36.1; O2SAT 98
[2023-11-16 08:00] VITALS: BP 144/67; PULSE 64; RESP 18; TEMP 36.4; O2SAT 97
[2023-11-16 09:38] LABS: Hematocrit 24.3 % (42.0-52.0); Hemoglobin 8.1 g/dl (14.0-18.0); Mean Corpuscular HGB Conc 33.3 g/dl (31.0-36.0); Mean Corpuscular Volume 78.1 fL (80.0-98.0); Platelet Count 298 X10*3/uL (160-400); Red Blood Count 3.11 X10*6/uL (4.60-5.80); Red Cell Distribution Width 15.9 % (11.0-16.0); White Blood Count 8.6 X10*3/uL (4.8-10.8)
[2023-11-16 09:52] LABS: Anion Gap 13 (12-20); Blood Urea Nitrogen 30 mg/dL (9-16); Calcium 8.3 mg/dL (8.4-10.2); Carbon Dioxide 21 mmol/L (22-29); Chloride 95 mmol/L (96-108); Estimated Glomerular Filt Rate > 60; Glucose Random 152 mg/dL (60-115); Potassium 3.2 mmol/L (3.3-5.1); Sodium 126 mmol/L (135-145)
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
[2023-11-16] MEDS: Ascorbic Acid 250 MG TABLET PO ×2 (11:00→21:07)
[2023-11-16] MEDS: Multivitamin TABLET 1 TAB PO (11:00)
[2023-11-16] MEDS: Pantoprazole Sodium 20 MG TABLET.DR 40 MG PO ×2 (11:00→21:07)
[2023-11-16] MEDS: Methenamine Hippurate 1 GM TABLET PO ×2 (11:00→21:07)
[2023-11-16] MEDS: Potassium Chloride ER 20 MEQ TAB.ER.PRT 40 MEQ PO (11:02)
[2023-11-16] MEDS: Urea 15 GM POWDER PO ×2 (11:03→21:06)
[2023-11-16] MEDS: Baclofen 10 MG TABLET PO ×3 (11:03→21:07)
[2023-11-16] MEDS: Escitalopram Oxalate 10 MG TABLET PO (11:04)
[2023-11-16] MEDS: Gabapentin 300 MG CAPSULE PO ×3 (11:04→21:07)
[2023-11-16 11:22] VITALS: BP 141/64; PULSE 59; RESP 17; TEMP 36.3; O2SAT 98
[2023-11-16] MEDS: Iron Sucrose Complex 200 MG in 0.9 % Sodium Chloride 100 ML 440 MG IV (11:40)
--- NOTE | 2023-11-16 13:22 | P.PNNP_ITS ---
Subjective Subjective Date of Service: 11/16/23 Interval history: Events noted Na unchanged Hematuria resolving Physical Exam 2 Vital Signs: Vital Signs: Last Vital Signs Temp 97.3 F 11/16/23 11:22 Pulse 59 11/16/23 11:22 Resp 17 11/16/23 11:22 BP 141/64 H 11/16/23 11:22 Pulse Ox 98 11/16/23 11:22 O2 Del Method Room Air 11/16/23 11:22 O2 Flow Rate 2 11/15/23 23:46 BMI result Body Mass Index 32.0 Neck: Neck: Yes supple Resp: Auscultation: clear to auscultation bilaterally Cardio: Jugular venous distension: no JVD Palpation: no palpable S3 and no palpable S4 Heart sounds: no rubs GI: Palpation (GI): Soft to palpation Auscultation: normal bowel sounds Neuro: Motor exam (neuro): no asterixis Objective Data Labs 11/16/23 09:09 11/16/23 09:09 Labs: Laboratory Results - last 24 hr 11/15/23 11/16/23 13:08 09:09 WBC 8.6 RBC 3.11 L Hgb 7.4 L 8.1 L Hct 22.2 L 24.3 L MCV 78.1 L MCH 26.0 L MCHC 33.3 RDW 15.9 Plt Count 298 MPV 9.0 L Absolute Nucleated RBC 0.000 Nucleated RBC % (auto) 0.0 Sodium 126 L Potassium 3.2 L Chloride 95 L Carbon Dioxide 21 L Anion Gap 13 BUN 30 H Creatinine 0.65 Estim Creat Clear Calc 128.0 Estimated GFR > 60 Random Glucose 152 H Calcium 8.3 L Blood Type A Positive Antibody Screen NEGATIVE Crossmatch See Detail Microbiology Microbiology Results: Microbiology 11/13/23 19:53 Urine Catheterized - Gregg Catheter Urine Culture - Final Pseudomonas aeruginosa 11/13/23 19:54 Blood - Venous Blood Culture - Preliminary No growth after 48 hours. 11/13/23 19:53 Blood - Venous Blood Culture - Preliminary No growth after 48 hours. Procedures Date of Service Date of Service: 11/16/23 Assessment & Plan Assessment and plan (1) DYLAN (acute kidney injury): Status: Acute (2) Hyponatremia: Status: Acute (3) Catheter-associated urinary tract infection: Status: Acute Plan DYLAN due to volume depletion. Renal function is improving with hydration. Keep intake more than output with isotonic saline. Expect renal recovery. Hyponatremia due to hypovolemia. Differential would include non osmotic ADH release. Citalopram would be a contributing factor as well. Limit hypotonic fluids. UREA 15 m PO BID x 4 doses Time Spent With Patient Time: Total time managing care of this patient today ____ minutes. Progress Note: Quality Stroke Does the patient have a stroke diagnosis?: No
[2023-11-16 16:00] VITALS: BP 125/69; PULSE 64; RESP 17; TEMP 36.3; O2SAT 97
[2023-11-16 20:00] VITALS: BP 112/56; PULSE 63; RESP 17; TEMP 36.6; O2SAT 97
[2023-11-16] MEDS: cefTRIAXone sodium 1 GM in 0.9 % Sodium Chloride 50 ML IV (21:06)
[2023-11-17] VITALS (7 sets, daily range): BP systolic 100–148; BP diastolic 50–66; PULSE 52–69; RESP 16–20; TEMP 36.3–36.9; O2SAT 94–98
[2023-11-17] MEDS: 0.9 % Sodium Chloride 1,000 ML 80 ML IVCONT ×2 (01:07→15:22)
[2023-11-17] MEDS: 0.9 % Sodium Chloride Flush 3 ML SYRINGE IVFLUSH ×3 (01:07→20:06)
[2023-11-17] MEDS: Acetaminophen 325 MG TABLET 975 MG PO (06:18)
[2023-11-17 06:30] LABS: Hematocrit 26.2 % (42.0-52.0); Hemoglobin 8.7 g/dl (14.0-18.0); Mean Corpuscular HGB Conc 33.2 g/dl (31.0-36.0); Mean Corpuscular Hemoglobin 26.3 pg (27.0-33.0); Mean Corpuscular Volume 79.2 fL (80.0-98.0); Mean Platelet Volume 8.6 fL (9.4-12.4); Platelet Count 297 X10*3/uL (160-400); Red Blood Count 3.31 X10*6/uL (4.60-5.80); Red Cell Distribution Width 15.9 % (11.0-16.0)
[2023-11-17 06:41] LABS: Anion Gap 14 (12-20); Blood Urea Nitrogen 37 mg/dL (9-16); Calcium 9.1 mg/dL (8.4-10.2); Carbon Dioxide 24 mmol/L (22-29); Chloride 103 mmol/L (96-108); Estimated Glomerular Filt Rate > 60; Glucose Random 111 mg/dL (60-115); Potassium 3.5 mmol/L (3.3-5.1); Sodium 137 mmol/L (135-145)
[2023-11-17] MEDS: Escitalopram Oxalate 10 MG TABLET PO (08:48)
[2023-11-17] MEDS: Baclofen 10 MG TABLET PO ×3 (08:48→20:06)
[2023-11-17] MEDS: Gabapentin 300 MG CAPSULE PO ×3 (08:48→20:06)
[2023-11-17] MEDS: Methenamine Hippurate 1 GM TABLET PO ×2 (08:48→20:06)
[2023-11-17] MEDS: Ascorbic Acid 250 MG TABLET PO ×2 (08:48→20:06)
[2023-11-17] MEDS: Multivitamin TABLET 1 TAB PO (08:48)
[2023-11-17] MEDS: Piperacillin Sodium/Tazobactam 4.5 GM in 0.9 % Sodium Chloride 100 ML IV ×3 (08:48→20:07)
[2023-11-17] MEDS: Urea 15 GM POWDER PO (08:48)
[2023-11-17] MEDS: Pantoprazole Sodium 20 MG TABLET.DR 40 MG PO ×2 (08:48→20:06)
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
[2023-11-17] MEDS: Iron Sucrose Complex 200 MG in 0.9 % Sodium Chloride 100 ML 440 MG IV (10:40)
--- NOTE | 2023-11-17 11:21 | MHC.CM.PN ---
Pt not yet ready for DC. CM spoke to pt.s / HCP Sarah, to ask about home care services. Pt. has 24 hour [facility] care from [facility]. CM asked if he has a nurse that visits, and he does not. Sarah said that pt[facility] second contact listed: Consuelo Urbano, and she asked that I call her because she is aware of pt.'s medical and care needs. Message left for Consuelo to call CM, to inquire about VNA services for pt. for care for pressure ulcer. CM will place referral if indicated.
--- NOTE | 2023-11-17 11:55 | MHC.CLN ---
F/U PT WITH INCREASED NUTRITION RISK R/T PRESSURE INJURY PO INTAKE 50% X5 MEALS DIET CURRENTLY NPO NOTED SERUM NA WNL-RESOLVED WHEN DIET ADVANCES; RECOMMEND ADDING ENSURE BID TO PROMOTE WOUND HEALING SUPP TO PROVIDE 700KCALS, 40G PROTEIN MONITOR FOR DIET ADVANCEMENT
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
--- NOTE | 2023-11-17 12:22 | P.PNNP_ITS ---
Subjective Subjective Date of Service: 11/17/23 Interval history: Events noted CAD noted Physical Exam 2 Vital Signs: Vital Signs: Last Vital Signs Temp 97.7 F 11/17/23 11:31 Pulse 54 11/17/23 11:31 Resp 18 11/17/23 11:31 BP 148/66 H 11/17/23 11:31 Pulse Ox 95 11/17/23 11:31 O2 Del Method Room Air 11/17/23 11:31 O2 Flow Rate 2 11/15/23 23:46 BMI result Body Mass Index 32.0 Const: Other: Appearing in no acute distress lung sounds are clear to auscultation heart regular rate rhythm, clear S1, S2 positive bowel sounds, abdomen is soft, nontender neuro patient is alert x3, no focal deficits Stage II pressure injury to sacrum measuring 1.2 cm x 1 cm x 0.1 cm, wound bed pale pink, no odor or drainage skin blanchable with redness and light purple tissue consistent with chronic moisture associated skin damage Objective Data Labs 11/17/23 06:10 11/17/23 06:10 Labs: Laboratory Results - last 24 hr 11/17/23 06:10 WBC 7.0 RBC 3.31 L Hgb 8.7 L Hct 26.2 L MCV 79.2 L MCH 26.3 L MCHC 33.2 RDW 15.9 Plt Count 297 MPV 8.6 L Absolute Nucleated RBC 0.000 Nucleated RBC % (auto) 0.0 Sodium 137 Potassium 3.5 Chloride 103 Carbon Dioxide 24 Anion Gap 14 BUN 37 H Creatinine 0.64 Estim Creat Clear Calc 130.0 Estimated GFR > 60 Random Glucose 111 Calcium 9.1 D Microbiology Microbiology Results: Microbiology 11/13/23 19:53 Urine Catheterized - Gregg Catheter Urine Culture - Final Pseudomonas aeruginosa 11/13/23 19:54 Blood - Venous Blood Culture - Preliminary No growth after 48 hours. 11/13/23 19:53 Blood - Venous Blood Culture - Preliminary No growth after 48 hours. Procedures Date of Service Date of Service: 11/17/23 Assessment & Plan Assessment and plan (1) DYLAN (acute kidney injury): Status: Acute (2) Hyponatremia: Status: Acute (3) Catheter-associated urinary tract infection: Status: Acute Plan DYLAN due to volume depletion. Renal function is improving with hydration. Keep intake more than output with isotonic saline. Expect renal recovery. Hyponatremia due to hypovolemia. Differential would include non osmotic ADH release. Citalopram would be a contributing factor as well. Limit hypotonic fluids. Sodium up to 135 DC urea Urology evaluation for hydronephrosis/renal stone Time Spent With Patient Time: Total time managing care of this patient today ____ minutes. Progress Note: Quality Stroke Does the patient have a stroke diagnosis?: No
[2023-11-18] VITALS (7 sets, daily range): BP systolic 108–161; BP diastolic 52–74; PULSE 59–69; RESP 16–20; TEMP 36.1–36.9; O2SAT 94–98
[2023-11-18] MEDS: Piperacillin Sodium/Tazobactam 4.5 GM in 0.9 % Sodium Chloride 100 ML IV ×4 (03:05→20:09)
[2023-11-18] MEDS: 0.9 % Sodium Chloride 1,000 ML 80 ML IVCONT (03:07)
--- NOTE | 2023-11-18 04:10 | PC.NURSE ---
Pt AOx2, can answer some questions but he can be vague or segue to a topic that was not being discussed. All extremities are edematous; BLUE have contractures; BLLE foot drop. Pt is on RA, he is noncompliant w/his CPAP. T&R q2 hrs. Private ONLINE MARKETING COORDINATOR bedside. Pt had BM 11/16. Call sanchez within reach. Bed alarm on.
[2023-11-18 07:17] LABS: Hemoglobin 8.4 g/dl (14.0-18.0); Mean Corpuscular HGB Conc 32.3 g/dl (31.0-36.0); Mean Corpuscular Hemoglobin 26.3 pg (27.0-33.0); Mean Corpuscular Volume 81.5 fL (80.0-98.0); Mean Platelet Volume 8.6 fL (9.4-12.4); Platelet Count 323 X10*3/uL (160-400); Red Blood Count 3.19 X10*6/uL (4.60-5.80); Red Cell Distribution Width 16.1 % (11.0-16.0); White Blood Count 10.1 X10*3/uL (4.8-10.8)
[2023-11-18 07:48] LABS: Anion Gap 10 (12-20); Blood Urea Nitrogen 30 mg/dL (9-16); Calcium 8.8 mg/dL (8.4-10.2); Carbon Dioxide 26 mmol/L (22-29); Chloride 105 mmol/L (96-108); Creatinine Clr Calc Pharmacy 122.4; Estimated Glomerular Filt Rate > 60; Glucose Random 104 mg/dL (60-115); Potassium 3.4 mmol/L (3.3-5.1); Sodium 138 mmol/L (135-145)
[2023-11-18] MEDS: Baclofen 10 MG TABLET PO ×3 (09:43→20:09)
[2023-11-18] MEDS: Ascorbic Acid 250 MG TABLET PO ×2 (09:43→20:09)
[2023-11-18] MEDS: Gabapentin 300 MG CAPSULE PO ×3 (09:43→20:09)
[2023-11-18] MEDS: Pantoprazole Sodium 20 MG TABLET.DR 40 MG PO ×2 (09:43→20:09)
[2023-11-18] MEDS: Methenamine Hippurate 1 GM TABLET PO ×2 (09:43→20:09)
[2023-11-18] MEDS: Escitalopram Oxalate 10 MG TABLET PO (09:43)
[2023-11-18] MEDS: Multivitamin TABLET 1 TAB PO (09:43)
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
--- NOTE | 2023-11-18 14:23 | W.PM.IDCN ---
History of Present Illness Data of Consult Service Date: 11/17/23 Requesting physician: Marty Beard Primary Care Provider: Aba Linares MD HPI Reason for consult: hematuria,Pseudomonas auruginosa He presents with hematuria as well as temperature 102 and leukocytosis. He has suprapubic catheter. He has Pseudomonas low colony count. Review of Systems Review of Systems: Yes all other systems are reviewed and are negative PMFSH Past Medical History Medical History Chronic hypercapnic respiratory failure Restrictive lung mechanics due to neuromuscular disease Paraplegia LATANYA on CPAP CAD (coronary artery disease) Paroxysmal atrial fibrillation HTN (hypertension) Family History Family History Father Diabetes HTN (hypertension) CVD (cardiovascular disease) Mother CVD (cardiovascular disease) Diabetes HTN (hypertension) Brother CVD (cardiovascular disease) Diabetes HTN (hypertension) Family history: reviewed and not pertinent Surgical History Surgical History History of carpal tunnel release Hx of colonoscopy Hx of rotator cuff surgery History of hip surgery Social History Social History Household Members: Spouse Housing: House Do you presently have visiting nurse or other home services: Yes (visiting nurses, cnas daily) Alcohol intake: former Comment: Private caregiver bedside Patient Tobacco Use Status: Former Tobacco user Tobacco use type: Cigarette Years Smoked: 20 years service: No Meds Allergies Allergy/AdvReac Type Severity Reaction Status Date / Time No Known Allergies Allergy Verified 11/13/23 19:34 [No Known Allergies*] Active Medications: Current Medications Acetaminophen (Acetaminophen 325 Mg Tablet) 975 mg PO Q6H PRN PRN Reason: Pain, Mild (Pain Scale 1-3), fever or headache Last Admin: 11/17/23 06:18 Dose: 975 mg Apixaban (Apixaban 5 Mg Tablet) 5 mg PO BID [facility] Last Admin: 11/15/23 09:35 Dose: 5 mg Ascorbic Acid (Ascorbic Acid 250 Mg Tablet) 250 mg PO BID [facility] Last Admin: 11/18/23 09:43 Dose: 250 mg Baclofen (Baclofen 10 Mg Tablet) 10 mg PO TID [facility] Last Admin: 11/18/23 09:43 Dose: 10 mg Docusate Sodium (Docusate Sodium 100 Mg Capsule) 100 mg PO BEDTIME PRN PRN Reason: constipation Escitalopram Oxalate (Escitalopram Oxalate 10 Mg Tablet) 10 mg PO DAILY [facility] Last Admin: 11/18/23 09:43 Dose: 10 mg Gabapentin (Gabapentin 300 Mg Capsule) 300 mg PO TID [facility] Last Admin: 11/18/23 09:43 Dose: 300 mg Piperacillin Sod/Tazobactam (Sod 4.5 gm/ Sodium Chloride) 100 mls @ 200 mls/hr IV Q6H [facility] Last Infusion: 11/18/23 10:37 Dose: Infused Methenamine Hippurate (Methenamine Hippurate 1 Gm Tablet) 1 gm PO BID [facility] Last Admin: 11/18/23 09:43 Dose: 1 gm Multivitamins/Vitamin C (Multivitamin Tablet) 1 tab PO DAILY [facility] Last Admin: 11/18/23 09:43 Dose: 1 tab Pantoprazole Sodium (Pantoprazole Sodium 20 Mg Tablet.) 40 mg PO BID [facility] Last Admin: 11/18/23 09:43 Dose: 40 mg Sodium Chloride (0.9 % Sodium Chloride Flush 3 Ml Syringe) 3 ml IVFLUSH QSHIFT [facility] Last Admin: 11/18/23 09:44 Dose: Not Given Home Medications ?Medication ?Instructions ?Recorded ?Confirmed ?Last Taken ?Type CPAP (CPAP Machine/Device) 07/19/21 11/14/23 11/13/23 History apixaban 5 mg tablet (Eliquis) 5 mg PO BID 07/19/21 11/14/23 11/13/23 History ascorbic acid (vitamin C) 250 mg 250 mg PO BID 07/19/21 11/14/23 11/13/23 History tablet pantoprazole 40 mg tablet,delayed 40 mg PO BID 07/19/21 11/14/23 11/13/23 History release gabapentin 300 mg capsule 300 mg PO TID 10/15/21 11/14/23 11/13/23 History methenamine hippurate 1 gram tablet 1 g PO BID 01/27/22 11/14/23 11/13/23 History docusate sodium 100 mg capsule 100 mg PO BEDTIME PRN constipation 06/08/23 11/14/23 11/13/23 History escitalopram oxalate 10 mg tablet 10 mg PO DAILY 06/08/23 11/14/23 11/13/23 History multivitamin 1 tab PO DAILY 06/08/23 11/14/23 11/13/23 History baclofen 10 mg tablet 10 mg PO TID 07/03/23 11/14/23 11/13/23 History Physical Exam Vital Signs: Vital Signs: Last Vital Signs Temp 97.4 F 11/18/23 11:28 Pulse 62 11/18/23 11:28 Resp 20 11/18/23 11:28 BP 135/63 11/18/23 11:28 Pulse Ox 96 11/18/23 11:28 O2 Del Method Room Air 11/18/23 11:28 O2 Flow Rate 2 11/15/23 23:46 BMI result Body Mass Index 32.0 Neuro: Other: weakness LE Results Labs 11/18/23 06:57 11/18/23 06:57 Labs: Short CBC 11/18/23 Range/Units 06:57 WBC 10.1 (4.8-10.8) X10*3/uL Hgb 8.4 L (14.0-18.0) g/dl Hct 26.0 L (42.0-52.0) % Plt Count 323 (160-400) X10*3/uL BMP 11/18/23 06:57 Sodium 138 Potassium 3.4 Chloride 105 Carbon Dioxide 26 BUN 30 H Creatinine 0.68 Calcium 8.8 Microbiology Microbiology Results: Microbiology 11/13/23 19:53 Urine Catheterized - Gregg Catheter Urine Culture - Final Pseudomonas aeruginosa 11/13/23 19:54 Blood - Venous Blood Culture - Preliminary No growth after 48 hours. 11/13/23 19:53 Blood - Venous Blood Culture - Preliminary No growth after 48 hours. Assessment and Plan (1) Hydronephrosis, left: Status: Acute (2) Gross hematuria: Status: Acute (3) Severe sepsis: Status: Acute (4) Catheter-associated urinary tract infection: Qualifiers: Indwelling urinary catheter type: unspecified Encounter type: initial encounter Qualified Code(s): T83.511A - Infection and inflammatory reaction due to indwelling urethral catheter, initial encounter; N39.0 - Urinary tract infection, site not specified Status: Acute Plan likely zosyn for 10 days as still working on quinolone sensitivities. Follow Urology outpatient.
[2023-11-18] MEDS: 0.9 % Sodium Chloride Flush 3 ML SYRINGE IVFLUSH (20:10)
[2023-11-19] VITALS: BP 149/68; PULSE 64; RESP 19; TEMP 36.6; O2SAT 95
[2023-11-19] MEDS: Piperacillin Sodium/Tazobactam 4.5 GM in 0.9 % Sodium Chloride 100 ML IV ×4 (02:51→22:27)
[2023-11-19 03:28] VITALS: BP 121/58; PULSE 70; RESP 19; TEMP 36.3; O2SAT 95
--- NOTE | 2023-11-19 06:57 | PC.NURSE ---
patient noted to be voiding punch colored urine with male purewick. patients suprapubic catheter draining punch colored urine. Dr. Marin notified, no further orders placed. suprapubic catheter irrigated.
[2023-11-19 07:33] VITALS: BP 137/61; PULSE 61; RESP 20; TEMP 36.8; O2SAT 96
[2023-11-19 07:44] LABS: Hematocrit 26.4 % (42.0-52.0); Hemoglobin 8.3 g/dl (14.0-18.0); Mean Corpuscular HGB Conc 31.4 g/dl (31.0-36.0); Mean Corpuscular Hemoglobin 26.1 pg (27.0-33.0); Mean Platelet Volume 8.6 fL (9.4-12.4); Platelet Count 339 X10*3/uL (160-400); Red Blood Count 3.18 X10*6/uL (4.60-5.80); Red Cell Distribution Width 16.3 % (11.0-16.0); White Blood Count 11.5 X10*3/uL (4.8-10.8)
[2023-11-19 08:07] LABS: Anion Gap 16 (12-20); Calcium 9.1 mg/dL (8.4-10.2); Carbon Dioxide 21 mmol/L (22-29); Chloride 104 mmol/L (96-108); Glucose Random 196 mg/dL (60-115); Potassium 3.4 mmol/L (3.3-5.1); Sodium 138 mmol/L (135-145)
[2023-11-19] MEDS: Gabapentin 300 MG CAPSULE PO ×3 (08:32→22:26)
[2023-11-19] MEDS: Pantoprazole Sodium 20 MG TABLET.DR 40 MG PO ×2 (08:32→22:27)
[2023-11-19] MEDS: Methenamine Hippurate 1 GM TABLET PO ×2 (08:33→22:26)
[2023-11-19] MEDS: Baclofen 10 MG TABLET PO ×3 (08:33→22:26)
[2023-11-19] MEDS: Ascorbic Acid 250 MG TABLET PO ×2 (08:33→22:27)
[2023-11-19] MEDS: Multivitamin TABLET 1 TAB PO (08:33)
[2023-11-19] MEDS: Escitalopram Oxalate 10 MG TABLET PO (08:33)
[2023-11-19] MEDS: 0.9 % Sodium Chloride Flush 3 ML SYRINGE IVFLUSH ×3 (08:38→22:28)
[2023-11-19 09:03] LABS: Blood Urea Nitrogen 17 mg/dL (9-16); Creatinine Clr Calc Pharmacy 112.4; Estimated Glomerular Filt Rate > 60
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
[2023-11-19 11:57] VITALS: BP 119/69; PULSE 51; RESP 20; TEMP 36.3; O2SAT 97
[2023-11-19 16:00] VITALS: BP 142/70; PULSE 67; RESP 20; TEMP 36.5; O2SAT 97
[2023-11-19 19:08] VITALS: BP 144/71; PULSE 65; RESP 20; TEMP 36.1; O2SAT 98
[2023-11-19 20:40] LABS: OBS Int Ctl Valid YES; OBS1 NEGATIVE (NEGATIVE)
[2023-11-19] MEDS: Acetaminophen 325 MG TABLET 975 MG PO (22:29)
[2023-11-20] VITALS (8 sets, daily range): BP systolic 118–160; BP diastolic 60–72; PULSE 50–72; RESP 16–20; TEMP 36.3–37.2; O2SAT 93–98
--- NOTE | 2023-11-20 00:16 | PC.RT ---
RT placed pt on nocturnal CPAP, pt came off after 10 minutes, pt not tolerating. Pt has been refusing CPAP the last 3 nights. RN is aware pt is refusing, Pt is in no distress at this time and remains on Room Air.
[2023-11-20] MEDS: Piperacillin Sodium/Tazobactam 4.5 GM in 0.9 % Sodium Chloride 100 ML IV ×4 (04:03→21:03)
[2023-11-20 08:32] LABS: Anion Gap 14 (12-20); Blood Urea Nitrogen 13 mg/dL (9-16); Calcium 9.1 mg/dL (8.4-10.2); Carbon Dioxide 28 mmol/L (22-29); Chloride 106 mmol/L (96-108); Creatinine Clr Calc Pharmacy 124.2; Estimated Glomerular Filt Rate > 60; Glucose Random 98 mg/dL (60-115); Potassium 3.2 mmol/L (3.3-5.1); Sodium 145 mmol/L (135-145)
[2023-11-20 08:38] LABS: Magnesium 1.4 mg/dL (1.6-2.6)
--- NOTE | 2023-11-20 11:03 | MHC.CM.PN ---
CM received a call from pt.s worker's comp CM, Consuelo Urbano, she will find a VNA for him for when he goes home, she asked that we fax doctor's order to her at [phone], order requested from the provider. Consuelo also informed CM that pt. is very different here than from baseline. She said that at baseline, pt. is not lethargic or confused as he has been here.
--- NOTE | 2023-11-20 11:32 | MHC.CLN ---
F/U PT WITH INCREASED NUTRITION RISK R/T PRESSURE INJURY PO INTAKE 50-100% DIET RX: REGULAR WITH 1500ML FLUID RESTRICTION NOTED SERUM NA WNL-RESOLVED PT RECEIVING ENSURE BID TO PROMOTE WOUND HEALING SUPP TO PROVIDE 700KCALS, 40G PROTEIN, 360ML FREE WATER MONITOR PO INTAKE AND ENCOURAGE SUPPLEMENT
[2023-11-20] MEDS: Potassium Chloride Packet 20 MEQ PACKET 40 MEQ PO ×2 (11:33→21:02)
[2023-11-20] MEDS: Multivitamin TABLET 1 TAB PO (11:34)
[2023-11-20] MEDS: Methenamine Hippurate 1 GM TABLET PO ×2 (11:34→21:02)
[2023-11-20] MEDS: Escitalopram Oxalate 10 MG TABLET PO (11:34)
[2023-11-20] MEDS: Baclofen 10 MG TABLET PO ×3 (11:34→21:02)
[2023-11-20] MEDS: Gabapentin 300 MG CAPSULE PO ×3 (11:34→21:02)
[2023-11-20] MEDS: Ascorbic Acid 250 MG TABLET PO ×2 (11:34→21:02)
[2023-11-20] MEDS: Pantoprazole Sodium 20 MG TABLET.DR 40 MG PO ×2 (11:40→21:02)
[2023-11-20] MEDS: 0.9 % Sodium Chloride Flush 3 ML SYRINGE IVFLUSH ×2 (11:51→15:33)
[2023-11-20] MEDS: Magnesium Sulfate/H2O 2 GM/50 ML PIGGYBACK IV (11:51)
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
--- NOTE | 2023-11-20 16:33 | P.CDIM_ITS ---
PROVIDER RESPONSE TEXT: To clarify, the appropriate diagnosis supported by the clinical indicators: Pressure Injury Stage 1 right elbow QUERY TEXT: PHYSICIAN'S DOCUMENTATION REQUEST Date of Query: 11/15/2023 01:03 PM EDT Patient Name: Eran Guerrero Admit Date: 11/14/2023 Dear Romina Soler, A review of the medical record indicates additional documentation may be needed. Please review below and update the documentation accordingly. Clinical Indicators: Wound care note dated 11/13 - Right elbow Stage 1 pressure injury. [place], non-blanchable tissue Foam dressing to be applied. Based on the above, could you please provide further information regarding the ulcer/wound/injury: Pressure Injury Stage 1 right elbow Other (explain) Clinically unable to determine (explain) Thank you, Lucrecia Doe, CCS, CDIS Use of terms such as suspected, likely, concern for, or probable (associated with a specific diagnosi s that is being evaluated, monitored, or treated as if it exists) are acceptable and can be coded in the inpatient se tting, when documented at the time of discharge. Please use your independent medical judgment in providing your response. THIS QUERY IS PART OF THE PERMANENT MEDICAL RECORD
--- NOTE | 2023-11-20 16:33 | P.CDIM_ITS ---
PROVIDER RESPONSE TEXT: To clarify, the appropriate diagnosis supported by the clinical indicators: Pressure injury Stage 2 left elbow QUERY TEXT: PHYSICIAN'S DOCUMENTATION REQUEST Date of Query: 11/15/2023 01:01 PM EDT Patient Name: Eran Guerrero Admit Date: 11/14/2023 Dear Romina Soler, A review of the medical record indicates additional documentation may be needed. Please review below and update the documentation accordingly. Clinical Indicators: Wound care note dated 11/14/23 - Left elbow Stage 2 pressure injury - red dry pink non-blanchable tissu e - partial thickness tissue loss. Foam dressing to be applied. Based on the above, could you please provide further information regarding the ulcer/wound/injury: Pressure injury Stage 2 left elbow Other (explain) Clinically unable to determine (explain) Thank you, Lucrecia Doe, CCS, CDIS Use of terms such as suspected, likely, concern for, or probable (associated with a specific diagnosi s that is being evaluated, monitored, or treated as if it exists) are acceptable and can be coded in the inpatient se tting, when documented at the time of discharge. Please use your independent medical judgment in providing your response. THIS QUERY IS PART OF THE PERMANENT MEDICAL RECORD
[2023-11-21] VITALS (7 sets, daily range): BP systolic 136–166; BP diastolic 61–70; PULSE 60–76; RESP 16–20; TEMP 36.1–37; O2SAT 94–97
[2023-11-21] MEDS: Piperacillin Sodium/Tazobactam 4.5 GM in 0.9 % Sodium Chloride 100 ML IV ×4 (02:43→20:53)
[2023-11-21 06:34] LABS: MANUAL DIFF FLAG NO
[2023-11-21 06:41] LABS: Basophils Absolute Auto 0.1 X10*3/uL (0.0-0.2); Basophils Percent Auto 0.5 % (0-2); Eosinophils Absolute Auto 0.4 X10*3/uL (0.0-0.4); Eosinophils Percent Auto 3.7 % (0-4); Hematocrit 27.6 % (42.0-52.0); Hemoglobin 8.6 g/dl (14.0-18.0); Imm Gran Abs Auto 0.06 X10*3/uL (0.00-0.03); Imm Gran Pct Auto 0.6 % (0.0-0.4); Lymphocytes Absolute Auto 1.5 X10*3/uL (1.2-4.9); Lymphocytes Percent Auto 16.3 % (20-40); Mean Corpuscular HGB Conc 31.2 g/dl (31.0-36.0); Mean Corpuscular Hemoglobin 26.1 pg (27.0-33.0); Mean Corpuscular Volume 83.9 fL (80.0-98.0); Mean Platelet Volume 8.7 fL (9.4-12.4); Monocytes Absolute Auto 0.5 X10*3/uL (0.1-1.2); Monocytes Percent Auto 5.4 % (2-11); Neutrophils Absolute Auto 6.9 x10*3/uL (2.0-8.3); Neutrophils Percent Auto 73.5 % (45-73); Platelet Count 380 X10*3/uL (160-400); Red Blood Count 3.29 X10*6/uL (4.60-5.80); Red Cell Distribution Width 17.1 % (11.0-16.0); White Blood Count 9.4 X10*3/uL (4.8-10.8)
[2023-11-21 07:29] LABS: Alanine Aminotransferase 28 U/L (0-40); Albumin Level 2.8 g/dL (3.5-5.0); Alkaline Phosphatase 80 U/L (39-117); Anion Gap 13 (12-20); Aspartate Amino Transferase 28 U/L (5-37); Bilirubin Total 0.2 mg/dL (0.0-1.0); Blood Urea Nitrogen 15 mg/dL (9-16); Calcium 9.1 mg/dL (8.4-10.2); Carbon Dioxide 30 mmol/L (22-29); Chloride 106 mmol/L (96-108); Creatinine Clr Calc Pharmacy 118.9; Estimated Glomerular Filt Rate > 60; Glucose Fasting 98 mg/dL (60-99); Magnesium 1.7 mg/dL (1.6-2.6); Sodium 145 mmol/L (135-145); Total Protein 6.9 g/dL (6.5-8.0)
[2023-11-21] MEDS: Gabapentin 300 MG CAPSULE PO ×3 (09:04→20:53)
[2023-11-21] MEDS: Baclofen 10 MG TABLET PO ×3 (09:04→20:53)
[2023-11-21] MEDS: 0.9 % Sodium Chloride Flush 3 ML SYRINGE IVFLUSH ×2 (09:04→15:57)
[2023-11-21] MEDS: Methenamine Hippurate 1 GM TABLET PO ×2 (09:04→20:53)
[2023-11-21] MEDS: Pantoprazole Sodium 20 MG TABLET.DR 40 MG PO ×2 (09:04→20:53)
[2023-11-21] MEDS: Multivitamin TABLET 1 TAB PO (09:04)
[2023-11-21] MEDS: Escitalopram Oxalate 10 MG TABLET PO (09:04)
[2023-11-21] MEDS: Ascorbic Acid 250 MG TABLET PO ×2 (09:04→20:53)
--- NOTE | 2023-11-21 12:06 | HO.MIDLINE_ITS ---
Midline Insertion MIDLINE INSERTION Diagnosis: UTI Indication: half-way Antibiotics Pertinent Labs: Reviewed Technique: Using sterile technique including cap and mask, glove and drape, the Left arm was prepped and draped in the usual sterile fashion of full barrier technique with CHG. Using ultrasound guidance, the left basilic vein access was obtained in an single attempt by JASMYNE Lau. Previously the left cephalic vein was attempt x1 by this RN And then by JASMYNE Lau without success a NON_ PASV 20 guage 10 cm Midline was positioned. The procedure was performed in S272. Ultrasound was used to document vein patency and for needle entry. A formal ultrasound picture was recorded. [facility] has released the line for use and it is currently dressed with a StatLock, Tegaderm, and CHG disc. Verification has been performed for blood return and line patency. Arm Circumference: 37.5cm Equipment: BARD PowerGlide ST Midline Catheter Catheter Type: 20 guage 10 cm Non-PASV midline Lot #: [id number]
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
[2023-11-21] MEDS: 0.9 % Sodium Chloride Flush 10 ML SYRINGE 5 ML IVFLUSH ×2 (16:46→20:54)
[2023-11-21 20:28] LABS: Cortisol, Free 1.03 mcg/dL
[2023-11-22] VITALS (7 sets, daily range): BP systolic 124–161; BP diastolic 58–71; PULSE 59–65; RESP 17–20; TEMP 36.1–36.8; O2SAT 94–97
[2023-11-22] MEDS: Piperacillin Sodium/Tazobactam 4.5 GM in 0.9 % Sodium Chloride 100 ML IV ×4 (05:02→21:47)
[2023-11-22 06:30] LABS: MANUAL DIFF FLAG NO
[2023-11-22 06:43] LABS: Basophils Percent Auto 0.4 % (0-2); Eosinophils Absolute Auto 0.3 X10*3/uL (0.0-0.4); Eosinophils Percent Auto 3.4 % (0-4); Hematocrit 27.5 % (42.0-52.0); Hemoglobin 8.4 g/dl (14.0-18.0); Imm Gran Abs Auto 0.06 X10*3/uL (0.00-0.03); Imm Gran Pct Auto 0.7 % (0.0-0.4); Lymphocytes Absolute Auto 1.6 X10*3/uL (1.2-4.9); Lymphocytes Percent Auto 18.6 % (20-40); Mean Corpuscular HGB Conc 30.5 g/dl (31.0-36.0); Mean Corpuscular Hemoglobin 25.9 pg (27.0-33.0); Mean Corpuscular Volume 84.9 fL (80.0-98.0); Mean Platelet Volume 8.8 fL (9.4-12.4); Monocytes Absolute Auto 0.5 X10*3/uL (0.1-1.2); Monocytes Percent Auto 6.3 % (2-11); Neutrophils Absolute Auto 6.1 x10*3/uL (2.0-8.3); Neutrophils Percent Auto 70.6 % (45-73); Platelet Count 369 X10*3/uL (160-400); Red Blood Count 3.24 X10*6/uL (4.60-5.80); Red Cell Distribution Width 17.4 % (11.0-16.0); White Blood Count 8.6 X10*3/uL (4.8-10.8)
[2023-11-22 07:05] LABS: Alanine Aminotransferase 26 U/L (0-40); Albumin Level 2.9 g/dL (3.5-5.0); Alkaline Phosphatase 80 U/L (39-117); Anion Gap 13 (12-20); Aspartate Amino Transferase 26 U/L (5-37); Bilirubin Total 0.2 mg/dL (0.0-1.0); Blood Urea Nitrogen 14 mg/dL (9-16); Calcium 9.1 mg/dL (8.4-10.2); Carbon Dioxide 32 mmol/L (22-29); Chloride 105 mmol/L (96-108); Creatinine Clr Calc Pharmacy 115.6; Estimated Glomerular Filt Rate > 60; Glucose Fasting 94 mg/dL (60-99); Magnesium 1.7 mg/dL (1.6-2.6); Potassium 3.6 mmol/L (3.3-5.1); Sodium 146 mmol/L (135-145); Total Protein 7.1 g/dL (6.5-8.0)
--- NOTE | 2023-11-22 09:31 | MHC.CLN ---
F/U PT WITH INCREASED NUTRITION RISK R/T PRESSURE INJURY PO INTAKE 75-100% DIET RX: REGULAR WITH 1500ML FLUID RESTRICTION NOTED SERUM NA NOW ELEVATED-RECOMMEND D/C FLUID RESTRICTION PT RECEIVING ENSURE BID TO PROMOTE WOUND HEALING SUPP TO PROVIDE 700KCALS, 40G PROTEIN, 360ML FREE WATER MONITOR PO INTAKE AND ENCOURAGE SUPPLEMENT
[2023-11-22] MEDS: Multivitamin TABLET 1 TAB PO (10:22)
[2023-11-22] MEDS: Pantoprazole Sodium 20 MG TABLET.DR 40 MG PO ×2 (10:31→21:46)
[2023-11-22] MEDS: Methenamine Hippurate 1 GM TABLET PO ×2 (10:32→21:47)
[2023-11-22] MEDS: Baclofen 10 MG TABLET PO ×3 (10:32→21:47)
[2023-11-22] MEDS: Ascorbic Acid 250 MG TABLET PO ×2 (10:33→21:47)
[2023-11-22] MEDS: Gabapentin 300 MG CAPSULE PO ×3 (10:34→21:47)
[2023-11-22] MEDS: Escitalopram Oxalate 10 MG TABLET PO (10:35)
[2023-11-22] MEDS: Acetaminophen 325 MG TABLET 975 MG PO (11:07)
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
--- NOTE | 2023-11-22 14:11 | MHC.CM.PN ---
EMR reviewed and per MD rounds, pt is not medically cleared for discharge due to ongoing management of UTI/sepsis requiring IV antibiotics. This CM attempted to plan for pt to go home for the remainder of the IV antibiotic course (3 more days). [facility] infusion referred to and was on site, attempting to work out the financials with workers comp, option care liaison awaiting confirmation from [employer] (workers comp) regarding if they would approve option care services. [facility] referred to and per their consulting practice director have declined to accept pt at this time. This CM spoke with Blessing from [employer] (workers comp), and updated that [facility] has declined to accept pt, and without a VNA pt unable to go home with IV antibiotics as there is no one able to provide this to him at home. Blessing in agreement with discharge plan of pt staying here for the remaining IV antibiotic course. Hospitalist updated.
[2023-11-22] MEDS: 0.9 % Sodium Chloride Flush 10 ML SYRINGE 5 ML IVFLUSH ×2 (14:56→21:47)
[2023-11-23] VITALS (7 sets, daily range): BP systolic 101–156; BP diastolic 46–71; PULSE 59–77; RESP 17–20; TEMP 36.3–36.7; O2SAT 96–98
[2023-11-23] MEDS: Piperacillin Sodium/Tazobactam 4.5 GM in 0.9 % Sodium Chloride 100 ML IV ×4 (03:02→20:26)
[2023-11-23] MEDS: 0.9 % Sodium Chloride Flush 3 ML SYRINGE IVFLUSH ×4 (03:29→20:28)
[2023-11-23 07:23] LABS: Alanine Aminotransferase 32 U/L (0-40); Albumin Level 2.9 g/dL (3.5-5.0); Alkaline Phosphatase 83 U/L (39-117); Anion Gap 17 (12-20); Aspartate Amino Transferase 39 U/L (5-37); Bilirubin Total 0.3 mg/dL (0.0-1.0); Blood Urea Nitrogen 18 mg/dL (9-16); Calcium 9.2 mg/dL (8.4-10.2); Carbon Dioxide 28 mmol/L (22-29); Chloride 103 mmol/L (96-108); Creatinine Clr Calc Pharmacy 101.5; Estimated Glomerular Filt Rate > 60; Glucose Fasting 92 mg/dL (60-99); Magnesium 1.7 mg/dL (1.6-2.6); Potassium 4.3 mmol/L (3.3-5.1); Sodium 144 mmol/L (135-145); Total Protein 7.6 g/dL (6.5-8.0)
[2023-11-23] MEDS: Baclofen 10 MG TABLET PO ×3 (10:25→20:27)
[2023-11-23] MEDS: Pantoprazole Sodium 20 MG TABLET.DR 40 MG PO ×2 (10:25→20:27)
[2023-11-23] MEDS: Multivitamin TABLET 1 TAB PO (10:25)
[2023-11-23] MEDS: Ascorbic Acid 250 MG TABLET PO ×2 (10:25→20:27)
[2023-11-23] MEDS: Escitalopram Oxalate 10 MG TABLET PO (10:25)
[2023-11-23] MEDS: Gabapentin 300 MG CAPSULE PO ×3 (10:25→20:27)
[2023-11-23] MEDS: 0.9 % Sodium Chloride Flush 10 ML SYRINGE 5 ML IVFLUSH ×3 (10:26→22:25)
[2023-11-23] MEDS: Methenamine Hippurate 1 GM TABLET PO ×2 (10:26→20:27)
--- NOTE | 2023-11-23 10:59 | MHC.CM.PN ---
CM RECEIVED CALL FROM PT'S [employer], PER REQUEST UPDATED CLINICALS FAXED TO RAISA BAKER CM AT [phone]. RAISA DID MENTION THAT PT'S WAS CONCERNED D/T PT URINATING FROM HIS URETHRA AND NOTED THAT THIS DOES NOT NORMALLY HAPPEN FOR PT, HOSPITALIST MADE AWARE VIA TIGERCONNECT, RAISA ALSO QUESTIONED IF PT NEEDS TX FOR WOUND IF PT COULD BE ON [facility] IT HAS WORKED FOR PT IN PAST AND WHAT THEY TYPICALLY USE, PT DOES HAVE STAGE 2 PRESSURE WOUND TO SACRAM PER NOTES AND PT CURRENTLY RECEIVING TRIAD W/FOAM DRESSING, EMIR DID REACH OUT TO WOUND NURSE WHO REPORTED SHE WOULD NOT RECOMMEND S[place] AT THIS TIME AND THAT PT SHOULD CONTINUE W/TRIAD AND FOAM DRESSINGS. PER HOSPITALIST PT WILL NOT NEED VNA SERVICES, RAISA DOES REPORT TYPICALLY PT'S 24HR CARE STAFF CAN DO ANY DRESSING CHANGES NEEDED.
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
[2023-11-23] MEDS: Acetaminophen 325 MG TABLET 975 MG PO (17:55)
[2023-11-24] VITALS (7 sets, daily range): BP systolic 110–125; BP diastolic 53–84; PULSE 58–64; RESP 18–20; TEMP 36.3–36.8; O2SAT 92–99
[2023-11-24] MEDS: Piperacillin Sodium/Tazobactam 4.5 GM in 0.9 % Sodium Chloride 100 ML IV ×4 (07:25→21:47)
[2023-11-24] MEDS: Baclofen 10 MG TABLET PO ×3 (08:58→21:47)
[2023-11-24] MEDS: Ascorbic Acid 250 MG TABLET PO ×2 (08:58→21:47)
[2023-11-24] MEDS: Gabapentin 300 MG CAPSULE PO ×3 (08:58→21:47)
[2023-11-24] MEDS: Escitalopram Oxalate 10 MG TABLET PO (08:58)
[2023-11-24] MEDS: Methenamine Hippurate 1 GM TABLET PO (08:58)
[2023-11-24] MEDS: Multivitamin TABLET 1 TAB PO (08:58)
[2023-11-24] MEDS: Pantoprazole Sodium 20 MG TABLET.DR 40 MG PO ×2 (08:58→21:45)
[2023-11-24] MEDS: 0.9 % Sodium Chloride Flush 10 ML SYRINGE 5 ML IVFLUSH ×3 (08:59→21:56)
[2023-11-24] MEDS: 0.9 % Sodium Chloride Flush 3 ML SYRINGE IVFLUSH ×3 (08:59→21:55)
--- NOTE | 2023-11-24 11:25 | MHC.CM.PN ---
Pt recieving IV ABX, last dose on 11/26/23, then anticipate he will DC. DCP: home and resume 24 hour [employer] services, overseen by worker's comp nurse outreach case manager.
--- NOTE | 2023-11-24 11:31 | MHC.CLN ---
F/U PO INTAKE REMAINS 75-100% DIET RX: REGULAR -APPROPRIATE NOTED SERUM NA NOW WNL PT RECEIVING ENSURE BID TO PROMOTE WOUND HEALING SUPP TO PROVIDE 700KCALS, 40G PROTEIN, 360ML FREE WATER CONTINUE TO MONITOR PO INTAKE AND ENCOURAGE SUPPLEMENT
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
[2023-11-25] VITALS (7 sets, daily range): BP systolic 117–142; BP diastolic 53–76; PULSE 55–68; RESP 16–20; TEMP 36.2–36.7; O2SAT 93–99
[2023-11-25] MEDS: Piperacillin Sodium/Tazobactam 4.5 GM in 0.9 % Sodium Chloride 100 ML IV ×4 (04:16→19:37)
[2023-11-25] MEDS: Nystatin Powder 15 GM BOTTLE 1 APPL TOPICAL ×3 (04:50→20:01)
[2023-11-25] MEDS: Ascorbic Acid 250 MG TABLET PO ×2 (08:19→19:37)
[2023-11-25] MEDS: Baclofen 10 MG TABLET PO ×3 (08:20→19:37)
[2023-11-25] MEDS: Multivitamin TABLET 1 TAB PO (08:20)
[2023-11-25] MEDS: Pantoprazole Sodium 20 MG TABLET.DR 40 MG PO ×2 (08:20→19:36)
[2023-11-25] MEDS: Escitalopram Oxalate 10 MG TABLET PO (08:20)
[2023-11-25] MEDS: 0.9 % Sodium Chloride Flush 3 ML SYRINGE IVFLUSH ×3 (08:20→19:37)
[2023-11-25] MEDS: Gabapentin 300 MG CAPSULE PO ×3 (08:20→19:37)
[2023-11-25] MEDS: 0.9 % Sodium Chloride Flush 10 ML SYRINGE 5 ML IVFLUSH ×3 (08:20→19:38)
[2023-11-25 08:32] LABS: Hematocrit 28.9 % (42.0-52.0); Hemoglobin 8.8 g/dl (14.0-18.0); Mean Corpuscular HGB Conc 30.4 g/dl (31.0-36.0); Mean Corpuscular Volume 85.5 fL (80.0-98.0); Mean Platelet Volume 8.9 fL (9.4-12.4); Platelet Count 277 X10*3/uL (160-400); Red Blood Count 3.38 X10*6/uL (4.60-5.80); Red Cell Distribution Width 17.6 % (11.0-16.0)
[2023-11-25 08:52] LABS: Anion Gap 13 (12-20); Blood Urea Nitrogen 21 mg/dL (9-16); Calcium 9.2 mg/dL (8.4-10.2); Carbon Dioxide 30 mmol/L (22-29); Chloride 107 mmol/L (96-108); Creatinine Clr Calc Pharmacy 86.7; Estimated Glomerular Filt Rate > 60; Glucose Random 93 mg/dL (60-115); Potassium 3.2 mmol/L (3.3-5.1); Sodium 147 mmol/L (135-145)
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
[2023-11-25] MEDS: Potassium Chloride ER 20 MEQ TAB.ER.PRT 40 MEQ PO (10:44)
[2023-11-25] MEDS: Acetaminophen 325 MG TABLET 975 MG PO (15:07)
[2023-11-26] VITALS (8 sets, daily range): BP systolic 102–154; BP diastolic 62–79; PULSE 51–62; RESP 16–20; TEMP 36.2–36.6; O2SAT 93–99
--- NOTE | 2023-11-26 | ECG_ITS ---
Test Reason : HEART RATE DOWN 40 Blood Pressure : / mmHG Vent. Rate : 047 BPM Atrial Rate : 047 BPM P-R Int : 144 ms QRS Dur : 090 ms QT Int : 476 ms P-R-T Axes : 037 021 037 degrees QTc Int : 421 ms Sinus bradycardia with Sinus Arrhythmia Normal ECG When compared with ECG of 14-AUG-2022 18:59, No significant changes seen Referred By: Romina Soler Electronically Signed By:AUDRA DOWELL
[2023-11-26] MEDS: Piperacillin Sodium/Tazobactam 4.5 GM in 0.9 % Sodium Chloride 100 ML IV ×4 (02:51→19:56)
[2023-11-26 07:03] LABS: Anion Gap 14 (12-20); Blood Urea Nitrogen 18 mg/dL (9-16); Calcium 9.3 mg/dL (8.4-10.2); Carbon Dioxide 29 mmol/L (22-29); Chloride 106 mmol/L (96-108); Creatinine Clr Calc Pharmacy 93.5; Estimated Glomerular Filt Rate > 60; Glucose Random 93 mg/dL (60-115); Potassium 3.5 mmol/L (3.3-5.1); Sodium 145 mmol/L (135-145)
[2023-11-26] MEDS: Acetaminophen 325 MG TABLET 975 MG PO (08:58)
[2023-11-26] MEDS: Gabapentin 300 MG CAPSULE PO ×3 (08:58→19:56)
[2023-11-26] MEDS: Pantoprazole Sodium 20 MG TABLET.DR 40 MG PO ×2 (08:59→19:56)
[2023-11-26] MEDS: Ascorbic Acid 250 MG TABLET PO ×2 (08:59→19:55)
[2023-11-26] MEDS: Multivitamin TABLET 1 TAB PO (08:59)
[2023-11-26] MEDS: 0.9 % Sodium Chloride Flush 3 ML SYRINGE IVFLUSH ×3 (08:59→19:56)
[2023-11-26] MEDS: Escitalopram Oxalate 10 MG TABLET PO (08:59)
[2023-11-26] MEDS: Baclofen 10 MG TABLET PO ×3 (08:59→19:56)
[2023-11-26] MEDS: Nystatin Powder 15 GM BOTTLE 1 APPL TOPICAL ×3 (09:00→19:57)
[2023-11-26] MEDS: 0.9 % Sodium Chloride Flush 10 ML SYRINGE 5 ML IVFLUSH ×3 (09:00→19:57)
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
[2023-11-27] MEDS: Piperacillin Sodium/Tazobactam 4.5 GM in 0.9 % Sodium Chloride 100 ML IV (02:52)
[2023-11-27 03:29] VITALS: BP 142/74; PULSE 63; RESP 20; TEMP 36.7; O2SAT 97
--- NOTE | 2023-11-27 07:10 | HO.PM.IMPN ---
Subjective Subjective Date of Service: 11/27/23 Physical Exam Vital Signs: Vital Signs: Last Vital Signs Temp 98.0 F 11/27/23 03:29 Pulse 63 11/27/23 03:29 Resp 20 11/27/23 03:29 BP 142/74 H 11/27/23 03:29 Pulse Ox 97 11/27/23 03:29 O2 Del Method Room Air 11/27/23 03:29 O2 Flow Rate 2 11/24/23 20:00 BMI result Body Mass Index 32.0 Objective Data Active Medications Acetaminophen (Acetaminophen 325 Mg Tablet) 975 mg PO Q6H PRN PRN Reason: Pain, Mild (Pain Scale 1-3), fever or headache Last Admin: 11/26/23 08:58 Dose: 975 mg Documented By: SHERWIN Apixaban (Apixaban 5 Mg Tablet) 5 mg PO BID [facility] Last Admin: 11/15/23 09:35 Dose: 5 mg Documented By: TASNEEM Ascorbic Acid (Ascorbic Acid 250 Mg Tablet) 250 mg PO BID [facility] Last Admin: 11/26/23 19:55 Dose: 250 mg Documented By: LUIZ Baclofen (Baclofen 10 Mg Tablet) 10 mg PO TID [facility] Last Admin: 11/26/23 19:56 Dose: 10 mg Documented By: LUIZ Docusate Sodium (Docusate Sodium 100 Mg Capsule) 100 mg PO BEDTIME PRN PRN Reason: constipation Escitalopram Oxalate (Escitalopram Oxalate 10 Mg Tablet) 10 mg PO DAILY [facility] Last Admin: 11/26/23 08:59 Dose: 10 mg Documented By: SHERWIN Gabapentin (Gabapentin 300 Mg Capsule) 300 mg PO TID [facility] Last Admin: 11/26/23 19:56 Dose: 300 mg Documented By: LUIZ Piperacillin Sod/Tazobactam (Sod 4.5 gm/ Sodium Chloride) 100 mls @ 200 mls/hr IV Q6H [facility] Stop: 11/27/23 08:59 Last Infusion: 11/27/23 03:27 Dose: Infused Documented By: LUIZ Multivitamins/Vitamin C (Multivitamin Tablet) 1 tab PO DAILY [facility] Last Admin: 11/26/23 08:59 Dose: 1 tab Documented By: SHERWIN Nystatin (Nystatin Powder 15 Gm Bottle) 1 appl TOPICAL TID [facility]; Protocol Last Admin: 11/26/23 19:57 Dose: 1 appl Documented By: LUIZ Pantoprazole Sodium (Pantoprazole Sodium 20 Mg Tablet.Dr) 40 mg PO BID [facility] Last Admin: 11/26/23 19:56 Dose: 40 mg Documented By: LUIZ Sodium Chloride (0.9 % Sodium Chloride Flush 3 Ml Syringe) 3 ml IVFLUSH QSHIFT [facility] Last Admin: 11/26/23 19:56 Dose: 3 ml Documented By: LUIZ Sodium Chloride (0.9 % Sodium Chloride Flush 10 Ml Syringe) 5 ml IVFLUSH TID [facility] Last Admin: 11/26/23 19:57 Dose: 5 ml Documented By: LUIZ Labs 11/25/23 08:08 11/26/23 06:26 Quality Stroke Does the patient have a stroke diagnosis?: No VTE Prior VTE?: No VTE Risk Level:: Medical - moderate - high VTE Device Contraindication: Treatment Not Indicated VTE Drug Contraindication: N/A - Med Ordered
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
[2023-11-27 08:00] VITALS: BP 174/85; PULSE 66; RESP 20; TEMP 36.1; O2SAT 98
[2023-11-27] MEDS: Gabapentin 300 MG CAPSULE PO ×2 (08:26→15:09)
[2023-11-27] MEDS: Pantoprazole Sodium 20 MG TABLET.DR 40 MG PO (08:27)
[2023-11-27] MEDS: Ascorbic Acid 250 MG TABLET PO (08:27)
[2023-11-27] MEDS: Baclofen 10 MG TABLET PO ×2 (08:27→15:09)
[2023-11-27] MEDS: Multivitamin TABLET 1 TAB PO (08:27)
[2023-11-27] MEDS: Escitalopram Oxalate 10 MG TABLET PO (08:27)
[2023-11-27] MEDS: 0.9 % Sodium Chloride Flush 3 ML SYRINGE IVFLUSH ×2 (08:44→15:14)
[2023-11-27] MEDS: 0.9 % Sodium Chloride Flush 10 ML SYRINGE 5 ML IVFLUSH ×2 (08:44→15:14)
[2023-11-27] MEDS: Nystatin Powder 15 GM BOTTLE 1 APPL TOPICAL ×2 (08:45→15:10)
[2023-11-27 09:30] VITALS: BP 110/70
--- NOTE | 2023-11-27 11:14 | MHC.CLN ---
F/U PO INTAKE REMAINS 100% X 4 MEALS DIET RX: REGULAR -APPROPRIATE NOTED SERUM NA NOW WNL PT RECEIVING ENSURE BID TO PROMOTE WOUND HEALING SUPP TO PROVIDE 700KCALS, 40G PROTEIN, 360ML FREE WATER CONTINUE TO MONITOR PO INTAKE AND ENCOURAGE SUPPLEMENT
[2023-11-27 12:00] VITALS: BP 125/69; PULSE 58; RESP 20; TEMP 36.5; O2SAT 96
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
[2023-11-27 16:00] VITALS: BP 124/71; PULSE 60; RESP 18; TEMP 37.2; O2SAT 98
== END 2023-11-27 19:00 | disposition home or self-care (01) | DRG 698 ==
LOC: HO.ED 20:11 → HO.EDOVER 22:40 → HO.IMC 23:23
PROVIDERS: Hospitalist; Internal Medicine; Internal Medicine Hypertension Specialist; Nurse Practitioner Acute Care; Physician Assistant; Physician Assistant Medical; Admitting Provider Internal Medicine; Emergency Provider Emergency Medicine; PCP Internal Medicine; Visit Provider Physician Assistant
DX: T83.518A Infection and inflammatory reaction due to other urinary catheter, initial encounter (principal); A41.9 Sepsis, unspecified organism; R65.20 Severe sepsis without septic shock; G82.20 Paraplegia, unspecified; E87.1 Hypo-osmolality and hyponatremia; N13.6 Pyonephrosis; R31.0 Gross hematuria; E87.6 Hypokalemia; N31.9 Neuromuscular dysfunction of bladder, unspecified; L89.011 Pressure ulcer of right elbow, stage 1; L89.022 Pressure ulcer of left elbow, stage 2; B96.5 Pseudomonas (aeruginosa) (mallei) (pseudomallei) as the cause of diseases classified elsewhere; L89.152 Pressure ulcer of sacral region, stage 2; R00.1 Bradycardia, unspecified; N32.89 Other specified disorders of bladder; S14.109S Unspecified injury at unspecified level of cervical spinal cord, sequela; X58.XXXS Exposure to other specified factors, sequela; I48.0 Paroxysmal atrial fibrillation; E86.1 Hypovolemia; K21.9 Gastro-esophageal reflux disease without esophagitis; G47.33 Obstructive sleep apnea (adult) (pediatric); Y73.8 Miscellaneous gastroenterology and urology devices associated with adverse incidents, not elsewhere classified; I25.10 Atherosclerotic heart disease of native coronary artery without angina pectoris; Z20.822 Contact with and (suspected) exposure to COVID-19; Z87.891 Personal history of nicotine dependence; Z79.01 Long term (current) use of anticoagulants; Z79.899 Other long term (current) drug therapy
CPT/HCPCS: 0241U; 36410; 36415; 71045; 74176; 80048; 80053; 81001; 82272; 82530; 82570; 83540; 83605; 83735; 83930; 83935; 84300; 84443; 85007; 85014; 85018; 85025; 85027; 85610; 85730; 86850; 86900; 86901; 86923; 87040; 87086; 87088; 87186; 93005; 94660; 99285; J0696; J1756; J2470; J2543; J3475; P9016

== ENCOUNTER 2023-11-13 22:32 | Outpatient (BNV) | payer OTHER, SELFPAY | END 2023-11-26 11:51 | PROVIDERS: Admitting Provider Internal Medicine; Emergency Provider Emergency Medicine; PCP Internal Medicine; Visit Provider Internal Medicine | DX: R00.1 Bradycardia, unspecified (principal) | CPT/HCPCS: 93010 ==

== ENCOUNTER → 2023-11-13 22:32 | Outpatient (BNV) | payer OTHER, SELFPAY | PROVIDERS: Admitting Provider Internal Medicine; Emergency Provider Emergency Medicine; PCP Internal Medicine; Visit Provider Urology | DX: N32.89 Other specified disorders of bladder (principal); T83.511A Infection and inflammatory reaction due to indwelling urethral catheter, initial encounter; N39.0 Urinary tract infection, site not specified | CPT/HCPCS: 99222; 99232 ==

== ENCOUNTER → 2023-11-13 22:32 | Outpatient (BNV) | payer OTHER, SELFPAY | PROVIDERS: Admitting Provider Internal Medicine; Emergency Provider Emergency Medicine; PCP Internal Medicine; Visit Provider Internal Medicine Hypertension Specialist | DX: N17.9 Acute kidney failure, unspecified (principal); E87.1 Hypo-osmolality and hyponatremia; T83.511A Infection and inflammatory reaction due to indwelling urethral catheter, initial encounter; N39.0 Urinary tract infection, site not specified | CPT/HCPCS: 99223; 99232 ==

== ENCOUNTER → 2023-11-13 22:32 | Outpatient (BNV) | payer OTHER, SELFPAY | PROVIDERS: Admitting Provider Internal Medicine; Emergency Provider Emergency Medicine; PCP Internal Medicine; Visit Provider Internal Medicine | DX: N13.30 Unspecified hydronephrosis (principal); R31.0 Gross hematuria; A41.9 Sepsis, unspecified organism; R65.20 Severe sepsis without septic shock; T83.511A Infection and inflammatory reaction due to indwelling urethral catheter, initial encounter; N39.0 Urinary tract infection, site not specified | CPT/HCPCS: 99222 ==

== ENCOUNTER → 2023-11-13 22:32 | Outpatient (BNV) | payer OTHER, SELFPAY | PROVIDERS: Admitting Provider Internal Medicine; Emergency Provider Emergency Medicine; PCP Internal Medicine; Visit Provider Internal Medicine | DX: R31.0 Gross hematuria (principal); Z93.59 Other cystostomy status; T83.511A Infection and inflammatory reaction due to indwelling urethral catheter, initial encounter; N39.0 Urinary tract infection, site not specified | CPT/HCPCS: 99223; 99232; 99233; 99239 ==

== ENCOUNTER 2023-12-18 16:06 | Outpatient (REF) | payer OTHER, SELFPAY ==
[2023-12-18 17:39] LABS: MANUAL DIFF FLAG NO
[2023-12-18 17:39] LABS: Appearance Urine Cloudy; Glucose Urine UA Negative (Negative); Leukocyte Esterase Urine Trace (Negative); Nitrite Urine Positive (Negative); PH 6.5 (5.0-9.0); Specific Gravity - Urine >= 1.030 (1.005-1.025); UMIC TRIGGER UACC YES; Urine Blood Large (3+) (Negative); Urine Ketones 15 mg/dL (Negative); Urine Protein 300 (3+) mg/dL (Neg-Trace)
[2023-12-18 17:48] LABS: Basophils Percent Auto 0.3 % (0-2); Eosinophils Absolute Auto 0.2 X10*3/uL (0.0-0.4); Eosinophils Percent Auto 1.8 % (0-4); Hematocrit 31.5 % (42.0-52.0); Hemoglobin 9.8 g/dl (14.0-18.0); Imm Gran Abs Auto 0.05 X10*3/uL (0.00-0.03); Imm Gran Pct Auto 0.5 % (0.0-0.4); Lymphocytes Absolute Auto 1.2 X10*3/uL (1.2-4.9); Lymphocytes Percent Auto 11.9 % (20-40); Mean Corpuscular HGB Conc 31.1 g/dl (31.0-36.0); Mean Corpuscular Hemoglobin 27.1 pg (27.0-33.0); Mean Platelet Volume 9.8 fL (9.4-12.4); Monocytes Absolute Auto 0.4 X10*3/uL (0.1-1.2); Monocytes Percent Auto 4.3 % (2-11); Neutrophils Absolute Auto 8.2 x10*3/uL (2.0-8.3); Neutrophils Percent Auto 81.2 % (45-73); Platelet Count 285 X10*3/uL (160-400); Red Blood Count 3.62 X10*6/uL (4.60-5.80); Red Cell Distribution Width 19.2 % (11.0-16.0); White Blood Count 10.1 X10*3/uL (4.8-10.8)
[2023-12-18 17:55] LABS: Color Urine RED
[2023-12-18 18:20] LABS: Bacteria Urine 1+ (None Seen); Hyaline Casts Urine 0-2 /LPF (0-2); RBC Urine >20 /HPF (0-2); UACC Culture Trigger YES; WBC Urine 21-50 /HPF (0-5)
[2023-12-18 18:23] LABS: Alanine Aminotransferase 19 U/L (0-40); Alkaline Phosphatase 93 U/L (39-117); Anion Gap 15 (12-20); Aspartate Amino Transferase 30 U/L (5-37); Bilirubin Total 0.2 mg/dL (0.0-1.0); Blood Urea Nitrogen 9 mg/dL (9-16); Calcium 8.9 mg/dL (8.4-10.2); Carbon Dioxide 26 mmol/L (22-29); Chloride 104 mmol/L (96-108); Estimated Glomerular Filt Rate > 60; Glucose Random 93 mg/dL (60-115); Iron 28 mcg/dL (45-160); Percent Iron Saturation 18 % (15-50); Potassium 3.5 mmol/L (3.3-5.1); Sodium 141 mmol/L (135-145); Total Iron Binding Capacity 152 mcg/dL (228-428); Total Protein 7.3 g/dL (6.5-8.0); Unsaturated Iron Binding 124 ug/dL
[2023-12-18 18:37] LABS: Ferritin 453 ng/mL (20-250)
== END 2023-12-18 16:07 | disposition home or self-care (01) ==
LOC: HO.MANLDS 16:06
PROVIDERS: Visit Provider Physician Assistant
DX: N30.81 Other cystitis with hematuria (principal); J06.9 Acute upper respiratory infection, unspecified; E87.1 Hypo-osmolality and hyponatremia; D50.0 Iron deficiency anemia secondary to blood loss (chronic)
CPT/HCPCS: 36415; 80053; 81001; 82728; 83540; 85025; 87070; 87086; 87088

== ENCOUNTER 2023-12-22 12:31 | Outpatient (REF) | payer OTHER, SELFPAY ==
[2023-12-22 13:24] LABS: CDiff Gene PCR NEGATIVE (Negative)
== END 2023-12-22 12:32 | disposition home or self-care (01) ==
LOC: HO.LNP 12:31
PROVIDERS: Visit Provider Physician Assistant
DX: A04.72 Enterocolitis due to Clostridium difficile, not specified as recurrent (principal)
CPT/HCPCS: 87493

== ENCOUNTER 2024-01-09 08:34 | Inpatient (IN) | payer OTHER, SELFPAY ==
[2024-01-09] VITALS (35 sets, daily range): BP systolic 74–152; BP diastolic 37–86; PULSE 46–80; RESP 12–28; TEMP 30–36.7; O2SAT 97–100; BMI 29.2
--- NOTE | 2024-01-09 | EEG_ITS ---
This is a 16 channel portable EEG performed in ICU. It is contaminated by movement and muscle artifacts, but background EEG rhythm seems to be low amplitude fast with frequent bilateral posterior sharp waves and sharp and slow wave complexes, probably originating in the occipital area. Photic stimulation and hyperventilation were not performed. Cardiac lead did not reveal any obvious arrhythmia. IMPRESSION: Abnormal EEG, suggestive of frequent epileptic discharges localized to posterior part of brain, probably occipital area. MD LOVELY Hurtado/LORAINE / [id number]
--- NOTE | ~2024-01-09 | CT_ITS ---
EXAMINATION: CT HEAD WITHOUT CONTRAST CLINICAL INFORMATION: Seizure. Patient on Eliquis. COMPARISON: Head CT dated 04/29/2019. TECHNIQUE: Contiguous axial imaging was performed from the skullbase to vertex without intravenous administration of contrast. Limited study with motion artifacts. This CT examination was performed using dose optimization techniques as appropriate, variously including the following: *Automated exposure control *Adjustment of mA and/or kV according to patient size (this includes techniques or standardized protocols for targeted exams where dose is matched to indication/reason for exam; i.e. extremities or head) *Use of iterative reconstruction technique DLP: 775.05 mGy-cm. FINDINGS: There is no evidence of acute intracranial hemorrhage or territorial infarction. No abnormal mass effect or midline shift is seen. No extra-axial fluid collections are identified. Generalized brain parenchymal volume loss with mild expected dilatation of the ventricles. No evidence of hydrocephalus. Chronic white matter microangiopathic changes are stable. The osseous structures and soft tissues are normal. The mastoid air cells are well aerated. There are aerosolized secretions in the nasopharynx. The patient is intubated. Moderate left maxillary sinus mucosal thickening noted. There are patchy areas of mild to moderate mucosal thickening in the ethmoid air cells as well. CT/CT head/brain wo IV con IMPRESSION: No acute intracranial hemorrhage or territorial infarction. Limited examination due to motion artifacts. Moderate left maxillary sinus mucosal thickening with patchy mild to moderate mucosal thickening in the ethmoid air cells. Electronically signed by: Sudhakar Triplett MD 01/09/2024 10:05 AM EDT
--- NOTE | ~2024-01-09 | XR_ITS ---
EXAMINATION: XR CHEST CLINICAL INFORMATION: Endotracheal intubation COMPARISON: Chest x-ray on 11/13/2023 TECHNIQUE: Frontal view of the chest was obtained. FINDINGS: HEART & VASCULARITY: There are normal cardiac size and pulmonary vascularity. LUNGS: Lungs are hypoinflated with resulting exaggerated vascular and interstitial lung markings. Asymmetric crowding of vessels, resulting increased alveolar densities seen in the medial right lung base. No pneumothorax is seen. LINES & SUPPORTING TUBES: Endotracheal tube is seen ending at 4.0 cm above killian. XR/XR chest 1V IMPRESSION: 1. Interval successful endotracheal intubation. 2. Interval decrease in lung expansion with asymmetric crowding of vessels, resulting increased alveolar densities in the medial right lung base, compatible with subsegmental atelectasis. Electronically signed by: Umesh Haq MD 01/09/2024 09:18 AM EDT
--- NOTE | ~2024-01-09 | FL_ITS ---
EXAMINATION: Modified Barium Swallow CLINICAL INFORMATION: Dysphagia COMPARISON: None TECHNIQUE: Modified barium swallow was performed under lateral fluoroscopy with patient in standing position. Barium mixed with solids and liquids of different consistencies was administered by the speech pathologist. Examination was recorded in the fluoroscopy suite. FINDINGS: Exam is somewhat limited due to patient positioning and upper extremity contracture. Laryngeal penetration was seen with thin consistency barium. No subglottic aspiration was observed. FLUOROSCOPY TIME: 2 minutes 56 seconds Number of Spot Images: DOSE AREA PRODUCT: 2421 uGy-m2 (microgray-meter squared) FL/FL Modified Barium Swallow IMPRESSION: 1. Partially limited exam due to patient positioning and upper extremity contracture. 2. Laryngeal penetration was seen with thin consistency barium. No subglottic aspiration was observed. Refer to the speech therapy report for further clarification This procedure was performed by Hung Saleh PA-C, and supervised by Dr. Hagan Electronically signed by: Eriberto Hagan MD 01/23/2024 02:02 PM EDT
--- NOTE | ~2024-01-09 | XR_ITS ---
EXAMINATION: XR CHEST CLINICAL INFORMATION: OG tube placement COMPARISON: 01/09/2024 TECHNIQUE: Portable 5:00 PM view of the chest was obtained. FINDINGS: NG tube placed with its tip well below the GE junction coiled within the gastric body. ET tube remains satisfactory. No other change. XR/XR chest 1V IMPRESSION: NG tube placement as above. Electronically signed by: Ramon Holt MD 01/11/2024 07:28 PM EDT
--- NOTE | ~2024-01-09 | CT_ITS ---
EXAMINATION: CT CHEST, ABDOMEN AND PELVIS WITHOUT CONTRAST CLINICAL INFORMATION: AMS, aspiration risk, renal colic and UTI COMPARISON: CT abdomen and pelvis 11/16/2023 TECHNIQUE: Multidetector volumetric imaging was performed from the thoracic inlet through the pubic symphysis without IV contrast. Sagittal and coronal reformatted images were obtained on the technologist's workstation. This CT examination was performed using dose optimization techniques as appropriate, variously including the following: *Automated exposure control *Adjustment of mA and/or kV according to patient size (this includes techniques or standardized protocols for targeted exams where dose is matched to indication/reason for exam; i.e. extremities or head) *Use of iterative reconstruction technique DLP: 1227 mGy-cm FINDINGS: CHEST: Lung: Bibasilar atelectasis is present. Bronchial thickening is noted. An ET tube is present with its tip a few centimeters above the killian. There is mucous extending from the tip of the ET tube into the right mainstem bronchus. Bronchial thickening is noted. Mediastinum: The heart is enlarged. No evidence of aortic aneurysm. Moderate coronary calcium is present. Pericardium/Pleura: No pleural effusions. There is a trace Chest Wall/Axilla: Unremarkable ABDOMEN/PELVIS: Peritoneal Space: No significant free air or free fluid identified. Liver, Gallbladder, Biliary Tree: The liver is enlarged at 18 cm in cephalocaudad dimension with normal attenuation. No focal hepatic lesion or biliary ductal dilatation is present. The gallbladder is packed with gallstones but without obvious pericholecystic inflammatory changes. Pancreas: Unremarkable Spleen: Spleen is enlarged at 15.7 cm. Adrenal Glands: Unremarkable Kidneys and Ureters: Left: The internal indwelling double-J stent is present on the left with some redundancy in both the kidneys as well as the bladder. A 1 cm stone is present in the mid left kidney. A benign left mid renal 4.0 cm Bosniak class I renal cyst is noted which requires no additional imaging or follow up. No solid renal masses are seen. Right: There is mild dilatation of the right ureter and mild right sided hydronephrosis with some perinephric stranding and periureteral stranding. No nephrolithiasis or obstructing ureteral masses/stones are seen. Bladder: The bladder is empty containing a suprapubic Gregg catheter. Gastrointestinal Tract: Moderate-sized hiatal hernia is present. An NG tube is present with its tip coiled in stomach. The small and large bowel are unremarkable. The appendix is unremarkable. Abdominal Wall: No significant hernia is appreciated. Lymph Nodes: No lymphadenopathy. Vascular: The aorta appears normal.. The IVC appears unremarkable. PELVIC VISCERA: Unremarkable OSSEUS STRUCTURES: Mild degenerative changes are noted in the spine and hips. No bony destructive lesions are seen. CT/CT abdomen pelvis wo IV con IMPRESSION: 1. ET tube in place with mucous extending from the tip of the ET tube into the right mainstem bronchus. 2. Hepatosplenomegaly. 3. Cholelithiasis without cholecystitis. 4. Left-sided double-J stent with nonobstructing 1 cm renal calculus. 5. Mild right-sided hydronephrosis with some perinephric and periureteral stranding. No obstructing stone or mass is seen. 6. Suprapubic Gregg catheter. 7. Other incidental findings as described above. Fleischner guidelines were followed. Electronically signed by: Esau Kwok MD 01/09/2024 10:49 AM EDT
--- NOTE | ~2024-01-09 | FL_ITS ---
FLUOROSCOPIC LUMBAR PUNCTURE INDICATION: Seizures TECHNIQUE: Risks and benefits and possible complications were discussed with the patient's spouse and consent was obtained. Patient was placed in the left lateral decubitus position on the fluoroscopy table. The back was prepped and draped in routine sterile fashion. Betadine was used as a skin antiseptic. Utilizing fluoroscopic guidance, the L2-3 i interlaminar space was accessed with a 22 gague quinkie spinal needle and clear CSF fluid obtained. Opening pressure was 14 cm H2O. 12 cc of fluid was sent for analysis. The needle was removed without immediate complications. Total fluoroscopy time: 1.06 minutes FL/FL guided lumbar puncture LP IMPRESSION: Successful fluoroscopic guided lumbar puncture at L2-L3. This procedure was performed by Hung Saleh PA-C and supervised by Dr. Hagan. Electronically signed by: Eriberto Hagan MD 01/12/2024 01:05 PM EDT
--- NOTE | ~2024-01-09 | MR_ITS ---
EXAMINATION: MR BRAIN WITHOUT AND WITH CONTRAST CLINICAL INFORMATION: Seizure. COMPARISON: CT head dated 01/09/2024. TECHNIQUE: Multiplanar, multisequence imaging of the brain was performed before and after the intravenous administration of 10 mL of Gadavist. FINDINGS: No diffusion abnormalities are identified to suggest an acute infarct. Mild generalized brain parenchymal volume loss with commensurate ex vacuo prominence of the ventricles evident. No mass effect or midline shift is seen. Nonspecific mild scattered white matter signal changes may be due to chronic microangiopathy. No extra-axial fluid collections are seen. The brainstem and cerebellum are normal. There is no abnormal parenchymal or leptomeningeal enhancement. The gradient refocused acquisition demonstrates no pathologic magnetic susceptibility artifact to indicate underlying acute or chronic blood products. The hippocampi are normal in appearance. The craniovertebral junction, marrow signal, and midline structures are normal. The major intracranial flow voids at the level of the comanche of Mercado are preserved. The dural venous sinus flow voids are maintained. There is a mild amount of fluid in the mastoid air cells bilaterally. There is abnormal lateralization of the left middle turbinate with obstructive secretions in the left frontal and ethmoid sinuses. Moderate left maxillary sinus mucosal thickening with a moderate dependent proteinaceous fluid level visible with abnormal lateralization of the uncinate processes to the inferomedial wall of the left orbit. There is fluid in the pharyngeal airway within the OG tube and ETT in place. MR/MR head/brain wo/w con IMPRESSION: No acute intracranial process. Nonspecific mild scattered white matter signal changes which may be due to chronic microangiopathy. No abnormal enhancement. No hippocampal pathology. Atelectatic changes with abnormal lateralization of the left middle turbinate to the medial wall of the left orbit resulting in complete obstructive mucosal opacification of the left frontoethmoid sinuses. Additional abnormal lateralization of the left uncinate process to the inferomedial wall of the left orbit with a moderate proteinaceous fluid level and mucosal thickening in the left maxillary antrum. Recommend follow-up ENT evaluation to guide further management. Electronically signed by: Sudhakar Triplett MD 01/12/2024 01:39 PM EDT
--- NOTE | 2024-01-09 08:38 | ECG_ITS ---
Test Reason : seizure Blood Pressure : / mmHG Vent. Rate : 060 BPM Atrial Rate : 060 BPM P-R Int : 144 ms QRS Dur : 096 ms QT Int : 428 ms P-R-T Axes : 056 024 028 degrees QTc Int : 428 ms Normal sinus rhythm Normal ECG When compared with ECG of 26-NOV-2023 11:51, Heart rate has increased Referred By: Elsi Cool Electronically Signed By:MO NIÑO
[2024-01-09] MEDS: Etomidate 20 MG/10 ML VIAL 10 MG IVPUSH (08:40)
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
[2024-01-09] MEDS: Rocuronium Bromide 50 MG/5 ML VIAL IVPUSH (09:01)
[2024-01-09 09:03] LABS: VBG Base Excess 0.3 mmol/L; VBG HCO3 25 mmol/L (22-26); VBG pCO2 45 mmHg; VBG pH 7.36 (7.32-7.43); VBG pO2 92 mmHg
[2024-01-09 09:07] LABS: Ammonia 29 umol/L (13-55)
[2024-01-09 09:09] LABS: INTERNATIONAL NORM RATIO 1.1 (0.9-1.1); Prothrombin Time 13.4 SEC (11.1-13.3)
[2024-01-09 09:11] LABS: Lactic Acid 1.4 mmol/L (0.5-2.0)
[2024-01-09 09:12] LABS: Partial Thromboplastin Time 26.9 SEC (26.0-36.8)
[2024-01-09 09:14] LABS: Venous Blood Gas Refer to POC result
[2024-01-09 09:15] LABS: MANUAL DIFF FLAG NO
[2024-01-09 09:21] LABS: Troponin-I High Sensitivity 6.6 ng/L (<3.5-35.0)
[2024-01-09 09:23] LABS: Basophils Percent Auto 0.3 % (0-2); Eosinophils Absolute Auto 0.1 X10*3/uL (0.0-0.4); Eosinophils Percent Auto 1.5 % (0-4); Hematocrit 23.2 % (42.0-52.0); Hemoglobin 7.5 g/dl (14.0-18.0); Imm Gran Abs Auto 0.03 X10*3/uL (0.00-0.03); Imm Gran Pct Auto 0.4 % (0.0-0.4); Lymphocytes Absolute Auto 0.7 X10*3/uL (1.2-4.9); Lymphocytes Percent Auto 9.2 % (20-40); Mean Corpuscular HGB Conc 32.3 g/dl (31.0-36.0); Mean Corpuscular Hemoglobin 27.6 pg (27.0-33.0); Mean Corpuscular Volume 85.3 fL (80.0-98.0); Mean Platelet Volume 9.8 fL (9.4-12.4); Monocytes Absolute Auto 0.3 X10*3/uL (0.1-1.2); Monocytes Percent Auto 3.9 % (2-11); Neutrophils Absolute Auto 6.1 x10*3/uL (2.0-8.3); Neutrophils Percent Auto 84.7 % (45-73); Platelet Count 187 X10*3/uL (160-400); Red Blood Count 2.72 X10*6/uL (4.60-5.80); Red Cell Distribution Width 18.5 % (11.0-16.0); White Blood Count 7.2 X10*3/uL (4.8-10.8)
[2024-01-09 09:24] LABS: B Type Natriuretic Peptide 361 pg/mL (<100)
[2024-01-09] MEDS: cefEPime HCl 1 GM in 0.9 % Sodium Chloride 50 ML IV (09:36)
[2024-01-09] MEDS: Midazolam HCl/PF 2 MG/2 ML VIAL IVPUSH (09:37)
[2024-01-09 09:42] LABS: Alanine Aminotransferase 8 U/L (0-40); Albumin Level 2.9 g/dL (3.5-5.0); Alkaline Phosphatase 62 U/L (39-117); Anion Gap 16 (12-20); Aspartate Amino Transferase 16 U/L (5-37); Bilirubin Direct < 0.2 mg/dL (0.0-0.5); Bilirubin Total 0.2 mg/dL (0.0-1.0); Blood Urea Nitrogen 37 mg/dL (9-16); Calcium 8.3 mg/dL (8.4-10.2); Carbon Dioxide 24 mmol/L (22-29); Chloride 99 mmol/L (96-108); Creatinine Clr Calc Pharmacy 37.3; Estimated Glomerular Filt Rate 30; Ethanol < 10 mg/dL; Glucose Random 115 mg/dL (60-115); Magnesium 1.6 mg/dL (1.6-2.6); Potassium 4.1 mmol/L (3.3-5.1); Sodium 135 mmol/L (135-145); Total Protein 6.8 g/dL (6.5-8.0)
[2024-01-09 09:43] LABS: Influenza A PCR NEGATIVE (Negative); Influenza B PCR NEGATIVE (Negative); Resp Syncy Virus RNA Qual PCR NEGATIVE (Negative); SARS COV2 PCR INHOUSE NEGATIVE (Negative)
[2024-01-09] MEDS: Lactated Ringers 1,000 ML 999 ML IV (09:43)
[2024-01-09 09:52] LABS: Procalcitonin 0.13 ng/mL; TSH reflex Free T4 1.59 uIU/mL (0.32-4.0)
[2024-01-09] MEDS: fentaNYL citrate/NS 1,000 MCG/100 ML PLAST..BAG 2.5 MCG IVCONT (10:08)
[2024-01-09] MEDS: propofoL 1,000 MG/100 ML VIAL 17.6 MG IVCONT ×2 (10:14→22:32)
[2024-01-09 10:16] LABS: Appearance Urine Turbid; Color Urine Yellow; Glucose Urine UA Negative (Negative); Leukocyte Esterase Urine Large (3+) (Negative); Nitrite Urine Negative (Negative); PH 6.5 (5.0-9.0); UMIC TRIGGER UACC YES; Urine Blood Large (3+) (Negative); Urine Ketones Negative (Negative); Urine Protein 300 (3+) mg/dL (Neg-Trace)
[2024-01-09 10:26] LABS: Amphetamine Screen Urine Not Detected (Not Detect); Barbiturates, Urine Not Detected (Not Detect); Benzodiazepines Screen Urine Not Detected (Not Detect); Buprenorphine Scr Not Detected (Not Detect); Cannabinoid Screen Urine Not Detected (Not Detect); Cocaine Screen Urine Not Detected (Not Detect); Fentanyl, urine Not Detected (Not Detect); Methadone Screen, Urine Not Detected (Not Detect); Opiate Screen Urine Not Detected (Not Detect); Oxycodone Screen Urine Not Detected (Not Detect); Phencyclidine Screen Urine Not Detected (Not Detect)
[2024-01-09 10:35] LABS: Bacteria Urine 4+ (None Seen); Hyaline Casts Urine >20 /LPF (0-2); RBC Urine >20 /HPF (0-2); UACC Culture Trigger YES; WBC Urine >50 /HPF (0-5)
--- NOTE | 2024-01-09 11:19 | P.HPCC_ITS ---
History of Present Illness Date of Service: 01/09/24 Chief Complaint: Possible Seizure Patient is a 73 Y M with traumatic spinal cord injury c/b paraplegia, neurogenic bladder w/ chronic suprapubic catheter, c/b pseudomonas urinary tract infection, hypertension, CAD, atrial fibrillation on apixaban, and LATANYA on CPAP, presenting to emergency department on 01/08 with question seizure; per EMS, VNA noted prior prolonged episodes of shaking and loss of consciousness for upwards of 40 minutes, developed episode of shaking w/ loss of consciousness for greater than 20 minutes; on arrival to emergency department, patient intubated; broad work-up initiated; laboratories suggestive of acute renal insufficiency; CT H, C, A/P demonstrating possible pyelonephritis; otherwise, work-up grossly unrevealing Review of Systems 2 Review of Systems: Yes Unobtainable due to mental status PMFSH Past Medical History Medical History Chronic hypercapnic respiratory failure Restrictive lung mechanics due to neuromuscular disease Paraplegia LATANYA on CPAP CAD (coronary artery disease) Paroxysmal atrial fibrillation HTN (hypertension) Family History Family History Father Diabetes HTN (hypertension) CVD (cardiovascular disease) Mother CVD (cardiovascular disease) Diabetes HTN (hypertension) Brother CVD (cardiovascular disease) Diabetes HTN (hypertension) Surgical History Surgical History History of carpal tunnel release Hx of colonoscopy Hx of rotator cuff surgery History of hip surgery Social History Social History Household Members: Spouse Housing: House Do you presently have visiting nurse or other home services: Yes (visiting nurses, cnas daily) Alcohol intake: former Comment: caregiver at bedside Patient Tobacco Use Status: Former Tobacco user Tobacco use type: Cigarette Years Smoked: 20 years Advance Directives: Yes Advance Directives on File: Yes Advance Directives Date on File: 06/08/23 service: No Meds Allergies Allergy/AdvReac Type Severity Reaction Status Date / Time No Known Allergies Allergy Verified 01/09/24 08:53 [No Known Allergies*] Active Medications: Current Medications Propofol (Diprivan) 1,000 mg in 100 mls @ 0 mls/hr IVCONT .Q0M PAUL; Protocol Last Titration: 01/09/24 11:02 Dose: 20 mcg/kg/min, 11.74 mls/hr Fentanyl (Sublimaze/Ns) 1,000 mcg in 100 mls @ 0 mls/hr IVCONT .Q0M PAUL; Protocol Last Titration: 01/09/24 11:03 Dose: 50 mcg/hr, 5 mls/hr Naloxone HCl (Naloxone Hcl 0.4 Mg/Ml Vial) 0.2 mg IVPUSH Q2M PRN PRN Reason: Excessive sedation or RR < 8 Home Medications ?Medication ?Instructions ?Recorded ?Confirmed ?Last Taken ?Type CPAP (CPAP Machine/Device) 07/19/21 11/14/23 11/13/23 History apixaban 5 mg tablet (Eliquis) 5 mg PO BID 07/19/21 01/09/24 11/13/23 History ascorbic acid (vitamin C) 250 mg 250 mg PO BID 07/19/21 01/09/24 11/13/23 History tablet pantoprazole 40 mg tablet,delayed 40 mg PO BID 07/19/21 01/09/24 11/13/23 History release gabapentin 300 mg capsule 300 mg PO TID 10/15/21 01/09/24 11/13/23 History methenamine hippurate 1 gram tablet 1 g PO BID 01/27/22 01/09/24 11/13/23 History docusate sodium 100 mg capsule 100 mg PO BID PRN constipation 06/08/23 01/09/24 11/13/23 History escitalopram oxalate 10 mg tablet 10 mg PO DAILY 06/08/23 01/09/24 11/13/23 History multivitamin 1 tab PO DAILY 06/08/23 01/09/24 11/13/23 History baclofen 10 mg tablet 10 mg PO TID PRN Muscle Spasm 07/03/23 01/09/24 11/13/23 History acetaminophen 325 mg tablet 650 mg PO Q6H PRN Mild Pain (Scale 01/09/24 01/09/24 Unknown History Score 1-4) aluminum-magnesium hydroxide 200 5 ml PO Q4H PRN Dyspepsia 01/09/24 01/09/24 Unknown History mg-200 mg/5 mL oral suspension clobetasol 0.05 % topical cream 1 appl topical BID 01/09/24 01/09/24 Unknown History midodrine 5 mg tablet 5 mg PO BID@0900,1500 01/09/24 01/09/24 Unknown History nystatin 100,000 unit/gram topical 1 appl topical TID 01/09/24 01/09/24 Unknown History powder psyllium husk 0.4 gram capsule 2 g PO Q6H PRN Constipation 01/09/24 01/09/24 Unknown History simethicone 80 mg chewable tablet 80 mg PO TID 01/09/24 01/09/24 Unknown History vancomycin 125 mg capsule 125 mg PO QID 01/09/24 01/09/24 Unknown History Physical Exam 2 Vital Signs: Vital Signs: Last Vital Signs Temp 96.3 F L 01/09/24 11:00 Pulse 60 01/09/24 11:03 Resp 18 01/09/24 11:03 BP 134/48 L 01/09/24 11:03 Pulse Ox 100 01/09/24 11:03 O2 Del Method Mechanical Ventil ation 01/09/24 11:00 FiO2 30 01/09/24 09:02 BMI result Body Mass Index 29.2 Const: Other: intubated, sedated General: comfortable, no acute distress and well developed HEENT: Head: Yes normal to inspection, Yes normocephalic and Yes atraumatic Eyes: General: appearance normal, both eyes and all related structures Neck: Neck: Yes normal visual inspection, Yes full ROM, Yes trachea midline and Yes supple Chest: Chest palpation & inspection: normal inspection of the chest Resp: Other: no appreciable rales, rhonchi, wheezing Effort & Inspection: normal respiratory effort Cardio: Rate: bradycardic Rhythm: regular rhythm GI: Inspection: Yes normal to inspection, No Abdominal wall edema and No distended Palpation (GI): Soft to palpation, not firm, nontender, no guarding and not rigid : Male General Exam: Yes normal external exam Skin: General skin exam: no rashes or lesions noted Neuro: Other: grimaces w/ noxious stimulus; appreciable spontaneous upper extremity movements Extrem: Other: 2+ pitting edema to bilateral shins General: Yes normal to inspection, Yes full ROM and Yes capillary refill normal Psych: Other: unable to assess Results Labs 01/09/24 09:09 01/09/24 09:09 Labs: Laboratory Results - last 24 hr 01/09/24 01/09/24 01/09/24 08:50 09:00 09:09 MCV 85.3 MCH 27.6 MCHC 32.3 RDW 18.5 H Plt Count 187 D MPV 9.8 Immature Gran % (Auto) 0.4 Neut % (Auto) 84.7 H Lymph % (Auto) 9.2 L [place] % (Auto) 3.9 Eos % (Auto) 1.5 Baso % (Auto) 0.3 Lymph # (Auto) 0.7 L [place] # (Auto) 0.3 Eos # (Auto) 0.1 Baso # (Auto) 0.0 Abs Immat Gran (auto) 0.03 Absolute Neuts (auto) 6.1 Absolute Nucleated RBC 0.000 Nucleated RBC % (auto) 0.0 PT 13.4 H D INR 1.1 APTT 26.9 VBG pH 7.36 VBG pCO2 45 VBG pO2 92 VBG HCO3 25 VBG O2 Saturation TNP VBG Base Excess 0.3 Anion Gap 16 Estim Creat Clear Calc 37.3 Estimated GFR 30 Random Glucose 115 Lactic Acid 1.4 Calcium 8.3 L D Magnesium 1.6 Total Bilirubin 0.2 Direct Bilirubin < 0.2 AST 16 ALT 8 Alkaline Phosphatase 62 Ammonia 29 Troponin I High Sens 6.6 B-Natriuretic Peptide 361 H Total Protein 6.8 Albumin 2.9 L Procalcitonin 0.13 TSH 1.59 Urine Color Urine Appearance Urine pH Ur Specific [place] Urine Protein Urine Glucose (UA) Urine Ketones Urine Blood Urine Nitrite Ur Leukocyte Esterase Urine RBC Urine WBC Ur Squamous Epith Cells Urine Bacteria Hyaline Casts Urine Opiates Screen Ur Buprenorphine Scrn Ur Oxycodone Screen Urine Methadone Screen Urine Fentanyl Screen Ur Barbiturates Screen Ur Phencyclidine Scrn Ur Amphetamines Screen U Benzodiazepines Scrn Urine Cocaine Screen U Marijuana (THC) Screen Ethyl Alcohol < 10 Influenza Type A (PCR) NEGATIVE Influenza Type B (PCR) NEGATIVE RSV RNA Qual (PCR) NEGATIVE SARS-CoV-2 RNA (RT-PCR) NEGATIVE Blood Type Antibody Screen 01/09/24 01/09/24 10:03 10:08 MCV MCH MCHC RDW Plt Count MPV Immature Gran % (Auto) Neut % (Auto) Lymph % (Auto) [place] % (Auto) Eos % (Auto) Baso % (Auto) Lymph # (Auto) [place] # (Auto) Eos # (Auto) Baso # (Auto) Abs Immat Gran (auto) Absolute Neuts (auto) Absolute Nucleated RBC Nucleated RBC % (auto) PT INR APTT VBG pH VBG pCO2 VBG pO2 VBG HCO3 VBG O2 Saturation VBG Base Excess Anion Gap Estim Creat Clear Calc Estimated GFR Random Glucose Lactic Acid Calcium Magnesium Total Bilirubin Direct Bilirubin AST ALT Alkaline Phosphatase Ammonia Troponin I High Sens B-Natriuretic Peptide Total Protein Albumin Procalcitonin TSH Urine Color Yellow Urine Appearance Turbid Urine pH 6.5 Ur Specific [place] 1.010 Urine Protein 300 (3+) H Urine Glucose (UA) Negative Urine Ketones Negative Urine Blood Large (3+) H Urine Nitrite Negative Ur Leukocyte Esterase Large (3+) H Urine RBC >20 H Urine WBC >50 H Ur Squamous Epith Cells 11-20 Urine Bacteria 4+ Hyaline Casts >20 Urine Opiates Screen Not Detected Ur Buprenorphine Scrn Not Detected Ur Oxycodone Screen Not Detected Urine Methadone Screen Not Detected Urine Fentanyl Screen Not Detected Ur Barbiturates Screen Not Detected Ur Phencyclidine Scrn Not Detected Ur Amphetamines Screen Not Detected U Benzodiazepines Scrn Not Detected Urine Cocaine Screen Not Detected U Marijuana (THC) Screen Not Detected Ethyl Alcohol Influenza Type A (PCR) Influenza Type B (PCR) RSV RNA Qual (PCR) SARS-CoV-2 RNA (RT-PCR) Blood Type A Positive Antibody Screen NEGATIVE Imaging Radiologist's Impressions: Impressions Chest X-Ray 01/09/24 08:42 IMPRESSION: 1. Interval successful endotracheal intubation. 2. Interval decrease in lung expansion with asymmetric crowding of vessels, resulting increased alveolar densities in the medial right lung base, compatible with subsegmental atelectasis. Electronically signed by: Umesh Haq MD 01/09/2024 09:18 AM EDT Abdomen/Pelvis CT 01/09/24 09:01 IMPRESSION: 1. ET tube in place with mucous extending from the tip of the ET tube into the right mainstem bronchus. 2. Hepatosplenomegaly. 3. Cholelithiasis without cholecystitis. 4. Left-sided double-J stent with nonobstructing 1 cm renal calculus. 5. Mild right-sided hydronephrosis with some perinephric and periureteral stranding. No obstructing stone or mass is seen. 6. Suprapubic Gregg catheter. 7. Other incidental findings as described above. Fleischner guidelines were followed. Electronically signed by: Esau Kwok MD 01/09/2024 10:49 AM EDT RP Chest CT 01/09/24 09:01 IMPRESSION: 1. ET tube in place with mucous extending from the tip of the ET tube into the right mainstem bronchus. 2. Hepatosplenomegaly. 3. Cholelithiasis without cholecystitis. 4. Left-sided double-J stent with nonobstructing 1 cm renal calculus. 5. Mild right-sided hydronephrosis with some perinephric and periureteral stranding. No obstructing stone or mass is seen. 6. Suprapubic Gregg catheter. 7. Other incidental findings as described above. Fleischner guidelines were followed. Electronically signed by: Esau Kwok MD 01/09/2024 10:49 AM EDT RP Head CT 01/09/24 09:14 IMPRESSION: No acute intracranial hemorrhage or territorial infarction. Limited examination due to motion artifacts. Moderate left maxillary sinus mucosal thickening with patchy mild to moderate mucosal thickening in the ethmoid air cells. Electronically signed by: Sudhakar Triplett MD 01/09/2024 10:05 AM EDT RP Assessment and Plan (1) Acute alteration in mental status: Status: Acute (2) LATANYA on CPAP: Status: Acute (3) Chronic hypercapnic respiratory failure: Status: Acute (4) CAD (coronary artery disease): Status: Acute (5) Paraplegia: Status: Acute Plan Patient is a 73 Y M with traumatic spinal cord injury c/b paraplegia, neurogenic bladder w/ chronic suprapubic catheter, c/b pseudomonas urinary tract infection, hypertension, CAD, atrial fibrillation on apixaban, and LATANYA on CPAP, presenting to emergency department on 01/08 with question seizure; per EMS, VNA noted prior prolonged episodes of shaking and loss of consciousness for upwards of 40 minutes, developed episode of shaking w/ loss of consciousness for greater than 20 minutes; on arrival to emergency department, patient intubated; broad work-up initiated; laboratories suggestive of acute renal insufficiency; CT H, C, A/P demonstrating possible pyelonephritis; otherwise, work-up grossly unrevealing N: c/f seizure; follow-up EEG; CT H unrevealing; to consider MRI CV: no acute issues R: intubated in setting of encephalopathy; wean as tolerated GI: NPO : acute renal insufficiency; to monitor renal indices H: anemia; to hold home apixaban ID: c/f pyelonephritis; prior UCx c/f possible ESBL, empiric meropenem E: to monitor hypo-/hyper-glycemia P: no acute issues Total time managing care of this patient today: 60 minutes.
--- OUTSIDE RECORDS SUMMARY | 2024-01-09 11:24 | XMS_ITS | Continuity of Care Document ---
Author Organization [facility] ter Address [address] [place] [id number] Care Team Providers Care Bus Analyst Name Role Phone Aba Linares DO Primary Care Physician Encounter [facility] [place] Date(s): 10/09/23 - 12/30/[address] [id number] Attending Physician: Sophie Mayo MD Admitting Physician: Sophie Mayo MD Allergies, Adverse Reactions, Alerts No Known Allergies Medications baclofen 10 mg oral tablet 10 mg, 1, tablet, By Mouth, 3 times a day, # 90 tablet, Refills 0, Tot. Refills 0, Maintenance, 05/26/22 15:47:00 EST, Route to Pharmacy Electronically, [facility]/pharmacy #[id number], Partial fill upon patient request if the prescription is for a schedule II opi... Start Date: 05/26/22 Status: Ordered Botox 100 units injection See Instructions, 200 units total to right elbow flexors +/- shoulder., # 1 kit, 3 Refills, Maintenance, 11/24/22 15:14:00 EDT, Partial fill upon patient request if the prescription is for a scheduleII opioid drug. Start Date: 11/24/22 Status: Ordered Eliquis Starter Pack 5 mg oral tablet 1 tablet = 5 mg, By Mouth, 2 times a day, 0 Refills, Maintenance, 07/27/21 10:08:00 EDT, Partial fill upon patient request if the prescription is for a schedule II opioid drug. Start Date: 07/27/21 Status: Ordered escitalopram 10 mg oral tablet 1 tablet = 10 mg, By Mouth, Daily, # 30 tablet, 5 Refills, Maintenance, 12/10/23 22:09:00 EDT, Tablet, Partial fill upon patient request if the prescription is for a schedule II opioid drug. Start Date: 12/10/23 Status: Ordered fluconazole 100 mg oral tablet 1 tablet = 100 mg, By Mouth, Daily, for 21 days, # 21 tablet, 0 Refills, Acute 01/20/24 11:34:00 EDT, 12/30/23 11:34:00 EDT, Tablet, [facility]/pharmacy #[id number], Partial fill upon patient request if the prescription is for a schedule II opioid drug., 172, cm,... Start Date: 12/30/23 Stop Date: 01/20/24 Status: Ordered gabapentin 300 mg oral capsule 300 mg, 1, capsule, By Mouth, 3 times a day, Maintenance, 09/23/20 12:22:00 EDT Start Date: 09/23/20 Status: Ordered levoFLOXacin 750 mg oral tablet 1 tablet = 750 mg, By Mouth, Every 24 hours, for 21 days, # 21 tablet, 0 Refills, Acute 01/20/24 11:33:00 EDT, 12/30/23 11:33:00 EDT, Tablet, [facility]/pharmacy #[id number], Partial fill upon patient request if the prescription is for a schedule II opioid drug.,... Start Date: 12/30/23 Stop Date: 01/20/24 Status: Ordered Maalox Plus Liquid 30 mL, [...] a schedu... Start Date: 08/12/21 Status: Ordered midodrine 5 mg oral tablet 5 mg, 1, tablet, By Mouth, 2 times a day, PRN, 9 am and 3 pm, Refills 0, Maintenance, Blood Pressure, 09/09/20 7:49:00 EDT Start Date: 09/09/20 Status: Ordered MiraLax oral powder for reconstitution = 17 Gm, By Mouth, Daily, PRN Constipation, dissolve in water before taking, # 530 pack/packet, 5 Refills, Maintenance, 09/17/21 16:24:00 EDT, REC Powder, [facility]/pharmacy #[id number], Partial fill upon [...] opioid drug. Start Date: 08/12/21 Status: Ordered nystatin topical [id number] u/gm powder 1 application, Topically, 3 times a day, # 30 Gm, 0 Refills, Maintenance, 10/12/23 15:10:00 EDT, Powder, Partial fill upon patient request if the prescription is for a schedule II opioid drug. Start Date: 10/12/23 Status: Ordered Please provide 28/11 PHOTO JOURNALIST care and weekly VNA visits for medication management. Please provide 28/11 PHOTO JOURNALIST care and weekly VNA visits for medication management., See Instructions, # 1 each, Refills 0, Tot. Refills 0, Maintenance, Dx: Tetraplegia, 12/06/21 10:20:00 EDT, Supply Start Date: 12/06/21 Status: Ordered Silvadene 1% cream 1 application, Topically, Daily, # 25 Gm, 0 Refills, Acute 01/31/24 12:21:00 EDT, 12/30/23 12:21:00EDT, Cream, [facility]/pharmacy #[id number], Partial fill upon patient request if the prescription is for a schedule II opioid drug., 1 application Topically Daily,... Start Date: 12/30/23 Stop Date: 01/31/24 Status: Ordered Tylenol 325 mg oral tablet 650 mg, 2, tablet, By Mouth, Every 6 hours, PRN, Refills 0, Maintenance, as needed for mild pain orfever, 09/09/20 7:49:00 EDT Start Date: 09/09/20 Status: Ordered vancomycin 125 mg oral capsule = 125 mg, By Mouth, 2 times a day, for 28 days, Doses over 125 mg require ID consult. Indication for Use: C. difficile colitis, # 56 capsule, 0 Refills, Acute 01/27/24 11:33:00 EDT, 12/30/23 11:33:00EDT, Capsule, [id number], Partial fill upon... Start Date: 12/30/23 Stop Date: 01/27/24 Status: Ordered Vitamin C 250 mg oral tablet 1 tablet = 250 mg, By Mouth, 3 times a day, # 30 tablet, 0 Refills, Maintenance, 12/10/23 22:09:00 EDT, Tablet, Partial fill upon patient request if the prescription is for a schedule II opioid drug. Start Date: 12/10/23 Status: Ordered Problem List Condition Confirmation Course Effective Dates Status H ealth Status Informant Anemia 1 Confirmed Active Weakness Confirmed Active Atrial fibrillation Confirmed Active Hematuria Confirmed Active Elevated troponin Confirmed Active Spinal cord injury, cervical region Confirmed Active COPD (chronic obstructive pulmonary disease) Confirmed Active Constipation Confirmed Active Presence of intrathecal baclofen pump Confirmed Active Lower extremity edema Confirmed Active GERD (gastroesophageal reflux disease) Confirmed Active Hypokalemia Confirmed Active Hyponatremia Confirmed Active Obese class I Confirmed Active Bedsores Confirmed Active Pyelonephritis Confirmed Active Quadriplegia Confirmed Active 1Hemoglobin 06/29/23-10 Social History Social History Type Response Smoking Status Former smoker, quit more than 30 days ago; Type: Cigarettes; Other: quit smoking 2020; entered on: 12/12/23 Sex Patient Care team information Care Team Personnel Name: Danny Whittaker RN Position: [facility] ED RN W/OE and Tasks Member Role: Primary Care Nurse Name: Rupali Burgos RN Position: S RN Member Role: Primary Care Nurse Name: Aba Linares DO Position: Reference Physician Member Role: PCP Address: Address: [address] [place] [address] Internal [place], [place] [address] Name: Tesha Kirkpatrick RN Position: S RN Member Role: Primary Care Nurse Name: Karoline Rader RN Position: S RN Member Role: Primary Care Nurse Name: Clay Dunham RN Position: [facility] RN Member Role: Primary Care Nurse Name: Clay Najera RN Position: S RN Supv Member Role: Primary Care Nurse Name: Vera Patricia RN Position: [facility] AMB Nurse Member Role: Primary Care Nurse Name: Genevieve Orozco RN Position: [facility] RN Member Role: Primary Care Nurse Name: Mary Alice Villanueva RN Position: [facility] RN Supv Member Role: Primary Care Nurse Name: Анна Brock RN Position: [facility] RN Supv Member Role: Primary Care Nurse Care Team Related Persons Name: CIRO TORREZ Address: [address] [place] [address] Name: FARNAZ HANNAH
--- OUTSIDE RECORDS SUMMARY | 2024-01-09 11:24 | XMS_ITS | Continuity of Care Document ---
Author Organization [facility] Address [address] [place] [address] [address] [place] [address]- Care Team Providers Care Wireless Retail Manager Name Role Phone Aba Linares DO Primary Care Physician [phone] [place] [facility] [place] 11[place]28[place]23 - 12/28/23 [facility] [address] [place] [address] Allergies, Adverse Reactions, Alerts No Known Allergies Medications baclofen 10 mg oral tablet 10 mg, 1, tablet, By Mouth, 3 times a day, # 90 tablet, Refills 0, Tot. Refills 0, Maintenance, 05/26/22 15:47:00 EST, Route to Pharmacy Electronically, [facility]/pharmacy #[id number], Partial fill upon patient request if the [...] opioid drug. Start Date: 12/10/23 Status: Ordered gabapentin 300 mg oral capsule 300 mg, 1, capsule, By Mouth, 3 times a day, Maintenance, 09/23/20 12:22:00 EDT Start Date: 09/23/20 Status: Ordered Maalox Plus [...] Maintenance, 09/17/21 16:24:00 EDT, REC Powder, [facility]/pharmacy #[id number], Partial fill upon patient request [...] Start Date: 08/12/21 Status: Ordered nystatin topical [id number] u/gm powder 1 application, Topically, 3 times a day, # 30 Gm, 0 Refills, Maintenance, 10/12/23 15:10:00 EDT, Powder, Partial fill upon patient request if the prescription is for a schedule II opioid drug. Start Date: 10/12/23 Status: Ordered Please provide 28/11 REFUND CLERK care and weekly VNA visits for medication management. Please provide 28/11 REFUND CLERK care and weekly VNA visits for medication management., See Instructions, # 1 each, Refills 0, Tot. Refills 0, Maintenance, Dx: Tetraplegia, 12/06/21 10:20:00 EDT, Supply Start Date: 12/06/21 Status: Ordered Tylenol 325 mg oral tablet 650 mg, 2, tablet, By Mouth, Every 6 hours, PRN, Refills 0, Maintenance, as needed for mild pain orfever, 09/09/20 7:49:00 EDT Start Date: 09/09/20 Status: Ordered Vitamin C 250 mg oral [...] Tasks Member Role: Primary Care Nurse Name: Aubrey THURSTON, Rupali Position: S RN Member Role: Primary Care Nurse Name: Aba Linares DO Position: Reference Physician Member Role: PCP Address: Address: [address] [place] [address] [place] [address]- Name: Tesha Kirkpatrick RN Position: S RN Member Role: Primary Care Nurse Name: Karoline Rader RN Position: S RN Member Role: Primary Care Nurse Name: Clay Najera RN Position: [facility] RN Supv Member Role: Primary Care Nurse Name: Vera Patricia RN Position: [facility] AMB Nurse Member Role: Primary Care Nurse Name: Genevieve Orozco RN Position: S RN Member Role: Primary Care Nurse Name: Mary Alice Villanueva RN Position: S RN Supv Member Role: Primary Care Nurse Name: Анна Brock RN Position: S RN Supv Member Role: Primary Care Nurse Care Team Related Persons Name: CIRO TORREZ Address: [address] [place] [address] Name: FARNAZ HANNAH
--- OUTSIDE RECORDS SUMMARY | 2024-01-09 11:25 | XMS_ITS | Continuity of Care Document ---
Author Organization [facility] ter Address [address] [place] [id number] Care Team Providers Care Lettuce Cutter Name Role Phone Milagros CHUNG Aba Gee Primary Care Physician [phone] [place] [facility] [place]s): 12/12/23 - 12/14/[address] [address] [[email or web address] Discharge Disposition: A-D/C Home Attending Physician: Russell Villa MD Admitting Physician: Marcelino Quiros DO Referring Physician: Not on Staff, Referring MD Allergies, Adverse Reactions, Alerts No Known Allergies Medications baclofen 10 mg oral tablet 10 mg, Tablet, By Mouth, 12/14/23 9:00:00 EDT Start Date: 12/14/23 Stop Date: 12/14/23 Status: Completed baclofen 10 mg oral tablet 10 mg, 1, tablet, By Mouth, 3 times a day, # 90 tablet, Refills 0, Tot. Refills 0, Maintenance, 05/26/22 15:47:00 EST, Route to Pharmacy Electronically, [facility]/pharmacy #[id number], Partial fill upon patient request if the [...] a schedule II opioid drug. Start Date: 3/22/22 Status: Ordered escitalopram 10 mg oral tablet 1 tablet = 10 mg, By Mouth, Daily, # 30 tablet, 5 Refills, Maintenance, 12/10/23 22:09:00 EDT, Tablet, Partial fill upon patient request if the prescription is for a schedule II opioid drug. Start Date: 12/10/23 Status: Ordered gabapentin 300 mg oral capsule 300 mg, Capsule, By Mouth, 12/14/23 9:00:00 EDT Start Date: 12/14/23 Stop Date: 12/14/23 Status: Completed gabapentin 300 mg oral capsule 300 mg, 1, capsule, By Mouth, 3 times a day, Maintenance, 09/23/20 12:22:00 EDT Start Date: 09/23/20 Status: Ordered levoFLOXacin 750 mg oral tablet = 750 mg, By Mouth, Daily, for 4 days, # 4 tablet, 0 Refills, Acute 12/19/23 9:00:00 EDT, 12/15/23 9:00:00 EDT, Tablet, [facility] [id number] [email or web address]), Partial fill upon patient request if the prescription is for a schedule II opioid drug., 174, cm,... Start Date: 12/15/23 Stop Date: 12/19/23 Status: Ordered Maalox Plus Liquid 30 mL, [...] Start Date: 08/12/21 Status: Ordered nystatin topical 649628 u/gm powder 1 application, Topically, 3 times a day, # 30 Gm, 0 Refills, Maintenance, 10/12/23 15:10:00 EDT, Powder, Partial fill upon patient request if the prescription is for a schedule II opioid drug. Start Date: 10/12/23 Status: Ordered Please provide 24/7 EXECUTIVE SALES MANAGER care and weekly VNA visits for medication management. Please provide 24/7 EXECUTIVE SALES MANAGER care and weekly VNA visits for [...] oral capsule = 125 mg, By Mouth, Every 6 hours, for 12 days, Doses over 125 mg require ID consult. Indication for Use: C. difficile colitis, # 48 tablet, 0 Refills, Acute 12/26/23 13:00:00 EDT, 12/14/23 13:00:00 EDT, Capsule, Rodney [id number] (doxIQ [id number]), Part... Start Date: 12/14/23 Stop Date: 12/26/23 Status: Ordered Vitamin C 250 mg oral [...] Confirmed Active Quadriplegia Confirmed Active 1Hemoglobin 06/29/23-10 Vital Signs Most recent to oldest [Reference Range]: 1 2 3 4 Height 174 cm (12/14/23 2:47 PM) 174 cm (12/14/23 7:55 AM) 174 cm (12/13/23 9:58 PM) Weight 99.2 kg (12/12/23 11:38 PM) Oxygen Saturation [94-100 %] 100 % (12/14/23 2:47 PM) 100 % (12/14/23 7:55 AM) 100 % (12/14/23 3:00 AM) Pulse Rate [55-90 bpm] 52 bpm *L* (12/14/23 2:47 PM) 53 bpm *L* (12/14/23 7:55 AM) 51 bpm *L* (12/14/23 3:00 AM) Body Mass Index [18.5-24.99 kg/m2] 32.77 kg/m2 *>HHI* (12/12/23 11:38 PM) Blood Pressure [90-138/55-84 mm Hg] 131/59mm Hg (12/14/23 2:47 PM) 139/59mm Hg *H* (12/14/23 7:55 AM) 111/47mm Hg (12/14/23 3:00 AM) Respiratory Rate [16-30 br/min] 20 br/min (12/14/23 2:47 PM) 16 br/min (12/14/23 9:54 AM) 18 br/min (12/14/23 8:54 AM) 19 br/min (12/14/23 8:54 AM) Temperature [96.8-100.4 DegF] 98.2 DegF (12/14/23 2:47 PM) 97.7 DegF (12/14/23 7:55 AM) 97.8 DegF (12/14/23 3:00 AM) Mode of Delivery (Oxygen) Room air (12/14/23 2:47 PM) Room air (12/14/23 7:55 AM) Room air (12/14/23 3:00 AM) Blood pressure sites Arm, left (12/14/23 2:47 PM) Arm, left (12/14/23 7:55 AM) Arm, left (12/14/23 3:00 AM) Temperature Route Oral (12/14/23 2:47 PM) Oral (12/14/23 7:55 AM) Oral (12/14/23 3:00 AM) Dry Weight 99.2 kg (12/12/23 11:38 PM) Weight Obtained Via Bed scale (12/12/23 11:38 PM) Dry Weight Obtained Via Bed scale (12/12/23 11:38 PM) Social History Social History Type Response Smoking Status Former smoker, quit more than 30 days ago; Type: Cigarettes; Other: quit smoking 2020; entered on: 12/12/23 Sex History and physical note * Renee CAMACHO, Robert A: MODIFY, MODIFY, MODIFY, MODIFY, PERFORM Event Display: History and Physical Hospital Authored Date: Patient: ??ADRIAN TORREZ ? Age:??73 Years?Sex:??Male?:??1950?? History of Present Illness 12/12 ?? 73-year-old male with PMH including spinal cord injury, quadriplegia, intrathecal baclofen pump, suprapubic catheter (changed about a week ago), GERD, COPD, A-fib, anemia.?? Patient transferred from [facility] for further management of complicated UTI/pyelonephritis. ?? Patient was admitted and based on renal hospital on 12/09 after he presented with generalized weakness, cloudy urine and bedsore.?? As documented patient was initially confused.?? He was found to have hyponatremia, hypokalemia, DYLAN, elevated troponin.?? UA consistent with UTI.?? CT scan showing possible pyelonephritis and proctitis.?? Patient was started on Zosyn and vancomycin.?? Hospitalist spokewith surgery regarding bedsores, no indication for surgical debridement.?? Subsequently patient found to have diarrhea, tested positive for C. difficile, started on oral vancomycin. ?? Of note,??October 2023 patient was admitted for pyelonephritis, urine culture grew Pseudomonas and wastreated with Zosyn. ?? Chart reviewed.?? Patient has so far remained afebrile, initially soft blood pressure, currently blood pressure is stable.?? Labs shows no leukocytosis, hemoglobin 8.4, hypokalemia, hyponatremia resolved, initial DYLAN resolved, low albumin, normal liver enzymes.?? Troponin 103, 83, 103.?? C. difficile positive.?? UA showed 125 WBC and more than 182 RBC.?? Urine culture shows Pseudomonas aeruginosawhich is pansensitive.?? Blood culture so far negative. ?? Hospitalist discussed with ID who recommended transfer [place] [facility] [place] higher level of care.?? Also the patient has a intrathecal baclofen pump which is due to be refilled by 12/16/2023.?? Weaning is unable to perform this, hence patient needed to transfer to [facility].? Patient??seen at bedside.?? Patient denies any symptoms at this time.?? Continues to have??diarrhea. Review of Systems All systems reviewed and negative except as in HPI. Objective Measurements?? Height: 174 cm (12/12/23) Weight: 99.2 kg (12/12/23) Dry Weight: 99.2 kg (12/12/23) Body Mass Index:??32.77 kg/m2??Critical (12/12/23) ? Vital Signs?? Temperature: 97.8 DegF (12/12/23 23:38:00) Temperature Route: Oral (12/12/23 23:38:00) Pulse Rate: 60 bpm (12/12/23 23:38:00) Respiratory Rate: 17 br/min (12/12/23 23:38:00) Systolic Blood Pressure: 114 mm Hg (12/12/23 23:38:00) Diastolic Blood Pressure: 59 mm Hg (12/12/23 23:38:00) Blood pressure sites: Arm, right (12/12/23 23:38:00) Mean Arterial Pressure: 77 mm Hg (12/12/23 23:38:00) Pulse Pressure: 55 mm Hg (12/12/23 23:38:00) Oxygen Saturation: 100 % (12/12/23 23:38:00) Mode of Delivery (Oxygen): Room air (12/12/23 23:38:00) Early Warning Score: 2 (12/12/23 23:48:51) ? Physical Exam Constitutional: ??Alert,??no acute distress, co-operative, lying on the bed, saturating well on room air. ?? Mental state: Oriented Head: ??Normocephalic, atraumatic. ?? Eye:?No discharge. ENT: No discharge. Neck: ??Supple,??no JVD. Cardiovascular: ??S1, S2. Regular rhythm. No MRG. Respiratory:?reduced breath sound. Gastrointestinal: ??Soft, Nontender, Non distended, ??Normal bowel sounds.?? Genitourinary: Suprapubic catheter. Neurological: ??Cranial nerves intact. ??Quadriplegia,??limited movement of the left upper extremity,??contracture of both upper extremity,??no movement of the??lower extremities. Back: ??Nontender. Decubitus ulcer noted,??slight??purulent discharge noted. Musculoskeletal: ??Normal ROM.?? Bilateral edema. Hematology: No lymphadenopathy Skin: ??Warm, dry. Psychiatric: ??Cooperative.?? Assessment/Plan Diagnoses A-fib ??(I48.91) Acute renal failure ??(N17.9) Anemia ??(D64.9) COPD without exacerbation ??(J44.9) Colitis, Clostridium difficile ??(A04.72) Decubitus ulcer ??(L89.90) Elevated troponin ??(R79.89) GERD (gastroesophageal reflux disease) ??(K21.9) Hydroureter ??(N13.4) Hypokalemia ??(E87.6) Hyponatremia ??(E87.1) Infected wound ??(T14.8XXA) Presence of intrathecal baclofen pump ??(Z97.8) Presence of suprapubic catheter ??(Z93.59) Pyelonephritis ??(N12) Quadriplegia ??(G82.50) UTI (urinary tract infection) ??(N39.0) ?? Assessment:??73-year-old male with PMH including spinal cord injury, quadriplegia, intrathecal baclofen pump, suprapubic catheter (changed about a week ago), GERD, COPD, A-fib, anemia.??Patient transferred from [facility] for further management of complicated UTI/pyelonephritis. ?? UTI (urinary tract infection) (N39.0) ?Grouped with??Pyelonephritis (N12),??Presence of suprapubic catheter (Z93.59) ? UA suggestive of UTI, urine culture shows??Pseudomonas aeruginosa. Continue Zosyn. Hospitalist spoke with??ID??who recommended transfer for??higher level of care. Follow-up??cultures from??[facility]. Consider ID input. ?? Decubitus ulcer (L89.90) ?Grouped with??Infected wound (T14.8XXA) ? Patient is on vancomycin.?Hospitalist at [facility]??spoke with surgery??who recommended??no surgical intervention.??Wound consult. ?? Colitis, Clostridium difficile (A04.72):??Contact isolation.??Continue??vancomycin oral. ?? Acute renal failure (N17.9) ?Grouped with??Hydroureter (N13.4),??Hyponatremia (E87.1),??Hypokalemia (E87.6) Patient on admission??to another hospital was found to have renal failure,??has improved??with hydration.?? Patient also had hyponatremia??that has resolved.?? Patient had hypokalemia.?? She is taking orally, and has??bilateral??pitting edema,??will hold further IV fluids, monitor??renal function closely, avoid nephrotoxic medications.?? If increased output/diarrhea??patient may need??some extra hydration. Will check electrolytes in the morning and replace as??needed.?? Mild hydration??hydroureter noted,??hospitalist at??[facility]??discussed with urology,??no interventionrecommended as patient does not have any??obstructing stone. ?? Elevated troponin (R79.89):??Troponin flat, no EKG change, no chest pain. ?? Quadriplegia (G82.50) ?Grouped with??Presence of intrathecal baclofen pump (Z97.8) ? Continue gabapentin, baclofen. Patient??has??baclofen pump.??As per??discharge summary??this needs to be??refilled??by 12/15.??However??[facility] does not have the facility, hence??transferred to??[facility]. Please check with pharmacy.? Anemia (D64.9):??Stable,??monitor. A-fib (I48.91):??On Eliquis.??Not on??beta-deonte. COPD without exacerbation (J44.9):??On examination, nebs as needed. GERD (gastroesophageal reflux disease) (K21.9):??Pantoprazole. ? VTE Prophylaxis:??On Eliquis ?VTE Prophylaxis Assessment:??VTE Prophylaxis Ordered ?? Discharge Planning:? Code Status:??Full code ?Order Code Status:??Code Status Ordered ? Histories Allergies Allergies ?(Active and Proposed Allergies Only) NKA? (Severity: Unknown severity, Onset: Unknown) ? Past Medical History/Problem List Active Problems(17) Anemia Atrial fibrillation Bedsores Constipation COPD (chronic obstructive pulmonary disease) Elevated troponin GERD (gastroesophageal reflux disease) Hematuria Hypokalemia Hyponatremia Lower extremity edema Obese class I Presence of intrathecal baclofen pump Pyelonephritis Quadriplegia Spinal cord injury, cervical region Weakness ? Past Surgical History Carpal tunnel release-b/l Rotator cuff repair-L Baclofen pump implant Suprapubic catheter Inguinal herniorrhaphy Decompression of cervical spine ? Social History Alcohol Details:??Use: Past. ??Type: Liquor. ??Other: last alcoholic beverage was 2020. Employment/School Details:??Status: Retired. Exercise Details:??Regular exercise: No. Home/Environment Details:??Living situation: Home with assistance. ??Lives with: Spouse. ??Other: has 28/11 home health staff. Nutrition/Health Details:??Diet: Regular. Substance Abuse Details:??Use: Never. Tobacco Details:??Use: Former smoker, quit more than 30 days ago. ??Other: quit smoking 2020. ??Type: Cigarettes. Electronic Cigarette/Vaping Details:??Electronic Cigarette Use: Never. ? Family History No Family History documented. ? Medications Home Medications Acetaminophen (Tylenol 325 mg oral tablet)?650?Milligram?2?tablet?By Mouth?Every 6 hours?as needed?as needed for mild pain or fever Al Hydroxide/Mg Hydroxide/Simethicone (Maalox Plus Liquid)?30?Milliliter?By Mouth?Every4 hours?as needed?Dyspepsia apixaban (Eliquis Starter Pack 5 mg oral tablet)?1?tab(s)?5?Milligram?By Mouth?2 times a day Ascorbic Acid (Vitamin C 250 mg oral tablet)?1?tab(s)?250?Milligram?By Mouth?3 times a day Baclofen (baclofen 10 mg oral tablet)?10?Milligram?1?tablet?By Mouth?3 times a day Bisacodyl (bisacodyl 10 mg rectal suppository)?1?suppository(ies)?10?Milligram?Rectally?Every 48 hours Bisacodyl (Magic Bullet 10 mg rectal suppository)?1?suppository(ies)?10?Milligram?Rec tally?Daily?Daily afer dinner. Docusate (Colace sodium 100 mg oral capsule)?100?Milligram?1?capsule?By Mouth?Daily Escitalopram (escitalopram 10 mg oral tablet)?1?tab(s)?10?Milligram?By Mouth?Daily Gabapentin (gabapentin 300 mg oral capsule)?300?Milligram?1?capsule?By Mouth?3 times a day Melatonin (melatonin 3 mg oral tablet)?1?tab(s)?3?Milligram?By Mouth?Daily at bedtime Midodrine (midodrine 5 mg oral tablet)?5?Milligram?1?tablet?By Mouth?2 times a day?as needed?9 am and 3 pm?Blood Pressure Miscellaneous Rx (Please provide 24/7 EXECUTIVE SALES MANAGER care and weekly VNA visits for medication management.)?See Instructions?Dx: Tetraplegia Multivitamin With Minerals?1?tab(s)?By Mouth?Daily Nystatin Topical (nystatin topical 814002 u/gm powder)?1?joshua?Topically?3 times a day onabotulinumtoxinA (Botox 100 units injection)?See Instructions?200 units total to right elbow flexors +/- shoulder. Pantoprazole (pantoprazole 40 mg oral delayed release tablet)?40?Milligram?By Mouth?2 times a day Polyethylene Glycol 3350 (MiraLax oral powder for reconstitution)?17?gram?By Mouth?Daily?as needed?Constipation?dissolve in water before taking Psyllium (Metamucil 400 mg oral capsule)?5?capsule?2,000?Milligram?By Mouth?4 times a day?as needed?as needed for constipation?with at least 8 ounces of water Simethicone (Mylanta Gas)?80?Milligram?3 times a day after meals and bedtime ? Inpatient Medications Medications (21) Active SCHEDULED: (12) Apixaban 5 mg Tablet (apixaban) ??5 mg, By Mouth, 2 times a day Ascorbic Acid 250 mg Tablet (Vitamin C 250 mg oral tablet) ??250 mg, By Mouth, 3 times a day Baclofen 10 mg Tablet (baclofen 10 mg oral tablet) ??10 mg, By Mouth, 3 times a day Escitalopram 10 mg Tablet (escitalopram 10 mg oral tablet) ??10 mg, By Mouth, Daily Gabapentin 300 mg Capsule (gabapentin 300 mg oral capsule) ??300 mg, By Mouth, 3 times a day Multivitamin Therapeutic / Minerals Tablet (Multivit Therapeutic/Minerals Tablet) ??1 tablet, By Mouth, Daily NaCl 0.9% Flush 3ml (NaCL 0.9% Flush) ??3 mL, IV Push, Every 8 hours Nystatin Powder ??1 application, Topically, 2 times a day Pantoprazole 40 mg EC Tablet (pantoprazole 40 mg oral delayed release tablet) ??40 mg, By Mouth, 2 times a day Piperacillin/Tazobactam 3.375 Gm Inj (Zosyn Extended IVPB) ??3.375 Gm, IVPB, Every 8 hours Vancomycin 125 mg Capsule (Vancomycin Capsule) ??125 mg, By Mouth, Every 6 hours Vancomycin 1500 mg Inj (Vancomycin IVPB) ??1,500 mg, IVPB, Every 24 hours CONTINUOUS: (0) PRN: (9) Acetaminophen 325 mg Tablet (Acetaminophen Tablet) ??650 mg, By Mouth, Every 4 hours Dextromethorphan-Guaifenesin 20 mg-200 mg/10 mL Liqu UD (Robitussin DM Liquid) ??10 mL, By Mouth, Every 4 hours Docusate Sodium 100 mg Capsule (Docusate Sodium Capsule) ??100 mg 1 capsule, By Mouth, 2 times a day Melatonin 3 mg Tablet (Melatonin Tablet) ??3 mg, By Mouth, Daily at bedtime Midodrine 5 mg Tablet (midodrine 5 mg oral tablet) ??5 mg, By Mouth, 2 times a day NaCl 0.9% Flush 3ml (NaCL 0.9% Flush) ??3 mL, IV Push, Every 8 hours Polyethylene Glycol 17 Gm Powder (MiraLax Powder) ??17 Gm 1 pack/packet, By Mouth, Daily Senna Tablet ??8.6 mg 1 tablet, By Mouth, 2 times a day Simethicone 80 mg Chewable Tablet (Simethicone Tablet) ??80 mg, Chew, 3 times a day ? Results Recent Labs BACTERIOLOGY Urine Culture Results Final report (Abnormal)?? 12/10/2023 11:04 Urine Culture Isolate 1 Comment (Abnormal)?? 12/10/2023 11:04 Urine Cult Antimicrobial Susceptibility Comment ()?? 12/10/2023 11:04 ?? BLOOD COUNT & DIFF WBC 8.1 k/mm3 ()?? 12/12/2023 07:10 RBC 3.17 m/mm3 (Low)?? 12/12/2023 07:10 Hgb 8.4 Gm/dL (Low)?? 12/12/2023 07:10 Hct 26.7 % (Low)?? 12/12/2023 07:10 MCV 84.2 femtoliters ()?? 12/12/2023 07:10 MCH 26.5 pg (Low)?? 12/12/2023 07:10 MCHC 31.5 g/dL (Low)?? 12/12/2023 07:10 Platelet Count 254 k/mm3 ()?? 12/12/2023 07:10 RDW-SD 59.8 femtoliters (High)?? 12/12/2023 07:10 MPV 9.9 femtoliters ()?? 12/12/2023 07:10 Nucleated RBC (Automated) 0.0 #/100 WBC'S ()?? 12/12/2023 07:10 Abs. NRBC 0.0 k/mm3 ()?? 12/12/2023 07:10 Abs. Neut 5.8 k/mm3 ()?? 12/12/2023 07:10 Abs. Lymph 1.3 k/mm3 ()?? 12/12/2023 07:10 Abs. Roane 0.6 k/mm3 ()?? 12/12/2023 07:10 Abs. Eo 0.4 k/mm3 ()?? 12/12/2023 07:10 Abs. Baso 0.0 k/mm3 ()?? 12/12/2023 07:10 Neut % 72.4 % ()?? 12/12/2023 07:10 Lymph % 15.5 % ()?? 12/12/2023 07:10 Roane % 6.9 % ()?? 12/12/2023 07:10 Eos % 4.3 % ()?? 12/12/2023 07:10 Baso % 0.4 % ()?? 12/12/2023 07:10 Imm Gran 0.5 % ()?? 12/12/2023 07:10 Abs. Imm Gran 0.0 k/mm3 ()?? 12/12/2023 07:10 ?? CHEM GENERAL Sodium 139 mmol/L ()?? 12/12/2023 07:10 Potassium 3.1 mmol/L (Low)?? 12/12/2023 07:10 Chloride 101 mmol/L ()?? 12/12/2023 07:10 Bicarbonate Level 25 mmol/L ()?? 12/12/2023 07:10 Anion Gap 13 ()?? 12/12/2023 07:10 Glucose Level 98 mg/dL ()?? 12/12/2023 07:10 BUN 21 mg/dL ()?? 12/12/2023 07:10 Creatinine-Blood 0.96 mg/dL ()?? 12/12/2023 07:10 Estimated GFR Creatinine 85 ML/MIN/1.73 M2 ()?? 12/12/2023 07:10 Calcium 8.5 mg/dL (Low)?? 12/12/2023 07:10 Magnesium 1.7 mg/dL ()?? 12/12/2023 07:10 Protein, Total 6.6 Gm/dL ()?? 12/12/2023 07:10 Albumin 2.8 Gm/dL (Low)?? 12/12/2023 07:10 AG Ratio 0.7 ()?? 12/12/2023 07:10 Alkaline Phosphatase 122 units/L ()?? 12/12/2023 07:10 AST (SGOT) 18 units/L ()?? 12/12/2023 07:10 ALT (SGPT) 17 units/L ()?? 12/12/2023 07:10 Bilirubin, Total 0.2 mg/dL ()?? 12/12/2023 07:10 ?? URINE OTHER Est Creatinine Clearance 68.53 mL/min ()?? 12/12/2023 08:20 ? Hospital Progress note * Amanuel CAMACHO, Man Ocampo: PERFORM Event Display: Progress Note Hospital Authored Date: Patient: ??ADRIAN TORREZ ? Age:??73 Years?Sex:??Male?:??1950?? History of Present Illness Pump refilled at bedside today, see below. Adrian is being discharged home this afternoon. Assistance by Vianney Carpenter MS3 Review of Systems 14 point review of systems negative except as noted above in HPI. Physical Exam Vitals & Measurements T:??97.7?F?? HR:??53??(Peripheral)?? RR:??16?? BP:??139/59?? SpO2:??100%?? HT:??174??cm?? WT:??99.2??kg?? BMI:??32.77?? Area prepped with betadine swabs x 3 and sprayed with ethyl chloride.?? Sterile technique followed throughout the procedure.? Last Name : Lore Birthdate : [birth year] First Name : Adrian Device : SynchroMed?II; 8637-20 [id number] Last Update : 12/14/23 11:13 AM LOW RESERVOIR ALARM Refill Pump Before:??02/19/24??Low [place] Alarm Volume : 2.0 mL CHANGES MADE Refill & Adjust session workflow. 1 updates occurred. Changes made in: - [place] volume RESERVOIR Title Beginning of Session Current Settings [place] Volume 2.8 mL??20.0 mL DRUGS Title Beginning of Session Current Settings Primary: Baclofen (2,000.0 mcg/mL) Baclofen (2,000.0 mcg/mL) Is Patient Receiving Systemic Medication? - - - - - INFUSION Beginning of Session Monday - Monday : Flex Step Duration Baclofen Base Rate: - - - - - 262.4 mcg (11.0 mcg/hr) Step 1: 12:00 AM - 12:02 AM 2 min 40.0 mcg (1,199.2 mcg/hr) Step 2: 4:00 AM - 4:02 AM 2 min 40.0 mcg (1,199.2 mcg/hr) Step 3: 8:00 AM - 8:03 AM 3 min 70.0 mcg (1,400.7 mcg/hr) Step 4: 12:00 PM - 12:02 PM 2 min 40.0 mcg (1,199.2 mcg/hr) Step 5: 4:00 PM - 4:02 PM 2 min 40.0 mcg (1,199.2 mcg/hr) Step 6: 8:00 PM - 8:02 PM 2 min 40.0 mcg (1,199.2 mcg/hr) 24 Hour Dose:??532.3 mcg/day ?? Assessment/Plan ??73yo M known to our service with h/o C5??EMILY??A tetraplegia with spasticity--s/p intrathecal baclofen pump managed by our??office. He has a h/o neurogenic bladder--s/p suprapubic cath admitted with pyelonephritis--on Zosyn. ?? Pump refilled at bedside today. Next alarm date is 02/19/24. Our office will make arrangements for his pump to be refilled prior to this date. D/w Dr. Villa. ?? Problem List/Past Medical History Ongoing Anemia Atrial fibrillation Bedsores Constipation COPD (chronic obstructive pulmonary disease) Elevated troponin GERD (gastroesophageal reflux disease) Hematuria Hypokalemia Hyponatremia Lower extremity edema Obese class I Presence of intrathecal baclofen pump Pyelonephritis Quadriplegia Spinal cord injury, cervical region Weakness Procedure/Surgical History Carpal tunnel release-b/l Rotator cuff repair-L Baclofen pump implant Decompression of cervical spine Suprapubic catheter Inguinal herniorrhaphy Hospital Medications Medications (22) Active SCHEDULED: (13) Apixaban 5 mg Tablet (apixaban) ??5 mg, By Mouth, 2 times a day Ascorbic Acid 250 mg Tablet (Vitamin C 250 mg oral tablet) ??250 mg, By Mouth, 3 times a day Baclofen 10 mg Tablet (baclofen 10 mg oral tablet) ??10 mg, By Mouth, 3 times a day Escitalopram 10 mg Tablet (escitalopram 10 mg oral tablet) ??10 mg, By Mouth, Daily Gabapentin 300 mg Capsule (gabapentin 300 mg oral capsule) ??300 mg, By Mouth, 3 times a day Levofloxacin 750 mg Tablet (Levofloxacin Tablet) ??750 mg, By Mouth, Every 24 hours Lioresal 2 mg/mL Intrathecal Inj (20mL) (Lioresal 2 mg/mL Intrathecal) ??40 mg 20 mL, Intrathecal, on call to Procedure Multivitamin Therapeutic / Minerals Tablet (Multivit Therapeutic/Minerals Tablet) ??1 tablet, By Mouth, Daily NaCL 0.9% Flush 10ml (BD Normal Saline Flush) ??100 mL, Intrabladder, 2 times a day NaCl 0.9% Flush 3ml (NaCL 0.9% Flush) ??3 mL, IV Push, Every 8 hours Nystatin Powder ??1 application, Topically, 2 times a day Pantoprazole 40 mg EC Tablet (pantoprazole 40 mg oral delayed release tablet) ??40 mg, By Mouth, 2 times a day Vancomycin 125 mg Capsule (Vancomycin Capsule) ??125 mg, By Mouth, Every 6 hours CONTINUOUS: (0) PRN: (9) Acetaminophen 325 mg Tablet (Acetaminophen Tablet) ??650 mg, By Mouth, Every 4 hours Dextromethorphan-Guaifenesin 20 mg-200 mg/10 mL Liqu UD (Robitussin DM Liquid) ??10 mL, By Mouth, Every 4 hours Docusate Sodium 100 mg Capsule (Docusate Sodium Capsule) ??100 mg 1 capsule, By Mouth, 2 times a day Melatonin 3 mg Tablet (Melatonin Tablet) ??3 mg, By Mouth, Daily at bedtime Midodrine 5 mg Tablet (midodrine 5 mg oral tablet) ??5 mg, By Mouth, 2 times a day NaCl 0.9% Flush 3ml (NaCL 0.9% Flush) ??3 mL, IV Push, Every 8 hours Polyethylene Glycol 17 Gm Powder (MiraLax Powder) ??17 Gm 1 pack/packet, By Mouth, Daily Senna Tablet ??8.6 mg 1 tablet, By Mouth, 2 times a day Simethicone 80 mg Chewable Tablet (Simethicone Tablet) ??80 mg, Chew, 3 times a day Follow-Up Appointments Added Follow Up ?Time Frame ?Comments Milagros DO, Aba A?Within one week Patient Instructions ? You are admitted to the hospital due to bilateral kidney infection known as pyelonephritis??as wellas a diarrhea infection known as C. difficile You improved with antibiotics, the infectious disease doctors recommended total 7 days of??levofloxacin antibiotic for your??kidney infection/pyelonephritis and??14 days of total treatment for your C. difficile diarrhea infection with oral vancomycin, both of these have been sent to your pharmacy of choice ?? While you are in the hospital your baclofen pump was refilled on 12/14/2019 for ?? Furthermore you have some stones in your kidneys but these are not causing any obstructions,??the kidney surgeons evaluated your case and recommend you call and arrange a follow-up with them??in around 2 weeks??to see if you would need treatment for the stones. ??The number for the urology office??is [phone]. ?? Please follow-up with your primary care physician Lab Results PM&R Labs WBC: 8.3 k/mm3 (12/14/23) Platelet Count: 306 k/mm3 (12/14/23) Sodium: 143 mmol/L (12/14/23) BUN: 8 mg/dL (12/14/23) Creatinine-Blood: 0.73 mg/dL (12/14/23) AST (SGOT): 18 units/L (12/12/23) ALT (SGPT): 17 units/L (12/12/23) [1]??PM&R Consult Note; Man Vital MD 12/13/2023 16:22 EDT * Gloria Harmon RN: PERFORM, SIGN, VERIFY Event Display: Progress Note Hospital Authored Date: [id number] Patient: ADRIAN TORREZ Age: 73 years Sex: Male : 1950 Associated Diagnoses: None Author: Gloria Harmon RN Findings Narrative/Incidental Patient alert and oriented times 3, resting in bed safety precautions in place. Baclofen pump beingplaced on patient at this time prior to being dced at 3pm. No interventions needed at this time, suprapubic cath flushed this am, rectal tube also taken out per md. . Discharge Information Case Management Discharge Plan : Case Management Discharge Plan Data 12/14/2023 11:10 EDT Discharge Level of Care at Discharge Home/Senior Care/Foster Care 12/12/2023 22:38 EDT Discharge Level of Care at Discharge Short-term Acute Inpatient * Aubrey THURSTON, Rupali: VERIFY, PERFORM, SIGN Event Display: Progress Note Hospital Authored Date: [id number] Patient: ADRIAN TORREZ Age: 73 years Sex: Male : 1950 Associated Diagnoses: None Author: Aubrey THURSTON, Rupali Findings Problem Related to Alteration in Gastrointestinal : Alteration in Gastrointestinal Func/new 12/13/2023 18:00 EDT Alteration in GI status Related to C Diff Goals & Outcomes, Gastrointestinal Establish a regular pattern of elimination for pt, Nutritional intake is adequate for metabolic needs, Pt will achieve normal/improved fluid balance, Pt will have a bowel movement prior to discharge, Pt will maintain adequate GI function appropriate for pt Interventions, Gastrointestinal Assess/monitor bowel pattern, bowel sounds, flatus, Assess/monitor number of bowel movements, Assess/monitor color, quantity, quality, consistency of stoo, Assess/monitor pt for nausea, vomiting, Assess/monitor effects of re-hydration BH Goals/Interventions, Gastrointestinal Yes Gastrointestinal, Problem Start 12/13/2023 18:59 Reviewed plan with, Gastrointestinal Patient Patient Progression, Gastrointestinal Pt progressing according to plan . Evaluation Pt AOx3/4 can be confused, no tele- edema +2 on LE, dim on room air, rectal tube replaced and reinflated- small output- placed for skin management. Suprapubic catheter patent, red/pink with clots- MDaware, cardiac diet good PO intake, patent access. Pt requested to be called by MD in the morning- will pass along. Pt caregivers educated and updated. Safety measues in place see CIS for full assessment. Discharge Information Case Management Discharge Plan : Case Management Discharge Plan Data 12/12/2023 22:38 EDT Discharge Level of Care at Discharge Short-term Acute Inpatient Consult note * Jimmy LOTT, Galina Nassar: PERFORM Event Display: Consultation Note Authored Date: [id number] Patient: ??ADRIAN TORREZ ? Age:??73 Years?Sex:??Male?:??1950?? History of Present Illness ?? Date: 12/13/23 ?? Infectious Diseases Attending: Dr. Rueda ?? Requesting Attending/Provider:??Dr. Russell Villa ?? Reason for Consult: Pyelonephritis + C. difficile ?? Source of Information: CIS, patient ?? History of Present Illness: The patient is a 73-year-old male with a past medical history significant for??A. 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 Has now been re- admitted to [facility] on 12/09 with confusion and an DYLAN, and imaging showed bilateral pyelonephritis (with left nonobstructing stones) and proctitis, and there was concern for soft tissue infection of his sacral wounds, so he was started on vancomycin and Zosyn. Urology did not have any surgical recommendations, nor did Surgery regarding his wounds. Subsequently tested positive for C. difficile so was started on PO vancomycin and transferred to [facility]. His urine culture has now grown out a kelly-susceptible Pseudomonas aeruginosa, and ID has been consulted for assistance. ?? Today on exam the patient has been afebrile, hemodynamically stable, and labs have been without a leukocytosis (WBC 8.6) - did have a neutrophilic predominance on admission, creatinine improving (0.88), LFTs are WNL. Blood cultures have no growth to date. Reports he was having loose stools at home b efore presentation but unable to determine how many times a day he was stooling. His suprapubic catheter is exchanged monthly, patient predominantly insensate but??denies any cramping/frequency/urgency/suprapubic or flank pain. Does not think he had fever, chills, sweats, nausea, or vomiting. Urology formally evaluated during his last admission, has a known left renal stone??they have??been monitoring.??Regarding his wounds, do not appear overly infected without significant periwound erythema/edema/purulence. ?? Past Medical and Surgical History: ?? -A. fib -COPD -GERD -Cervical spinal cord injury??2/2 a forklift injury (2020) with resultant quadriplegia s/p cervicaldecompression and an intrathecal baclofen pump -Chronic sacral wounds -Neurogenic bladder with suprapubic catheter -Recurrent UTIs on methenamine/follows with Urology -Obesity -Bilateral carpal tunnel release -Left rotator cuff repair ?? Recent Antimicrobials: ?? PO vancomycin 125mg QID (12/11-present) Piperacillin/tazobactam IV (12/09-present) Vancomycin IV (12/09-present) ?? Medications: Reviewed ?? Antimicrobial Allergies: No known antimicrobial allergies. ?? Family History: No relevant history of infectious issues in first degree relatives. ?? Social History and Infectious Diseases Exposure History: The patient lives in [place], [place] with his . They have [id number] nursing care as he is bedridden. Former smoker, quit in 2020.??Since his accident, no heavy ETOH or illicit/IVDU. No recent travel or sick contacts. Review of Systems Denies fever, chills, rigors, night sweats, headache, chest pain, shortness of breath, cough, abdominal pain, nausea, vomiting, diarrhea, dysuria, arthralgias, or rash. ?? Physical Exam Vitals & Measurements Vital Signs?? Temperature: 97.7 DegF (12/14/23 07:55:00) Temperature Route: Oral (12/14/23 07:55:00) Pulse Rate:??53 bpm??Low (12/14/23 07:55:00) Respiratory Rate: 20 br/min (12/14/23 07:55:00) Systolic Blood Pressure:??139 mm Hg??High (12/14/23 07:55:00) Diastolic Blood Pressure: 59 mm Hg (12/14/23 07:55:00) Blood pressure sites: Arm, left (12/14/23 07:55:00) Mean Arterial Pressure: 86 mm Hg (12/14/23 07:55:00) Pulse Pressure: 80 mm Hg (12/14/23 07:55:00) Oxygen Saturation: 100 % (12/14/23 07:55:00) Mode of Delivery (Oxygen): Room air (12/14/23 07:55:00) Early Warning Score: 2 (12/14/23 08:19:49) ]GENERAL: In no acute distress HEENT: Anicteric, no subconjunctival petechiae, moist oral mucosa without lesions or thrush NECK: Neck supple, without cervical lymphadenopathy CARDIOVASCULAR: Regular rate and rhythm. Not able to appreciate any murmurs, rubs, or gallops. No peripheral edema. RESPIRATORY: Lungs diminished to auscultation, breathing comfortably on room air GASTROINTESTINAL: Non-distended, normoactive bowel sounds, non-tender GENITOURINARY: No CVAT or suprapubic tenderness. Suprapubic catheter with blood- tinged urine MUSCULOSKELETAL: Without joint effusions, no tenderness over spine SKIN: No diffuse rash present, no stigmata of infective endocarditis, sacral wounds??without significant periwound erythema/edema/purulence NEUROLOGICAL/PSYCH: A&Ox2-3, grossly intact LINES: PIVs without erythema/edema/tenderness ? Microbiology/ID Work-up: ?? C. difficile toxin 12/10: Positive Urine culture 12/09: Pseudomonas aeruginosa (kelly-susceptible) Blood cultures 12/09 x2: NGTD ?? Prior micro: Urine culture 10/11: Pseudomonas aeruginosa (resistant to levofloxacin) ?? Culture/Event_id: ?Urine Culture/[id number] Collect date: ?12/10/23 11:04 ? Result Status: ?Modified Result Date: ?12/12/23 11:06 ? Specimen: URINE ? >??Urine Culture Results:??Final report?? Testing performed at [address], [address], ??[place] [address] Dir: Jayy Reza MD CORRECTED ON 12/11 AT 1105: PREVIOUSLY REPORTED Preliminary report ?? >??Urine Culture Isolate 1:?? Pseudomonas aeruginosa 25,000-50,000 colony forming units per mL CORRECTED ON 12/11 AT 1105: PREVIOUSLY REPORTED Gram negative rods ?? >??Urine Cult Antimicrobial Susceptibility:?? S ??= Susceptible; I ??= Intermediate; R ??= Resistant ?P ??= Positive; N ??= Negative ? MICS are expressed in micrograms per mL ?Antibiotic ? RSLT#1 ?RSLT#2 ?RSLT#3 ?RSLT#4 Amikacin ? S Cefepime ? S Ceftazidime ?S Ciprofloxacin ?S Gentamicin ? S Imipenem ? S Levofloxacin ? S Meropenem ?S Piperacillin ? S Ticarcillin ?S Tobramycin ? S ? Imaging CT abdomen/pelvis 12/09:??COMPARISON: 10/12/2023.??FINDINGS:??[place] View Findings, Lines and Tubes: Suprapubic catheter in place. Right lateral abdominal wall metastatic hepatic and an epidural catheter with its tip outside the field of view.??Visualized Chest: ??Dependent atelectasis in lower lobes. No pleural effusion. Small pericardial effusion similar to prior CT. No pericardial effusion.??Diaphragm: Paraesophageal hernia.??Liver: Normal.??Gallbladder: Cholelithiasis without evidence of acute cholecystitis.??Bile ducts: No biliary ductal dilation.??Spleen: Normal.??Pancreas: ??Mildly atrophied parenchyma. No ductal dilatation or focal abnormality.??Adrenal glands: Normal.??Kidneys and ureters: There is bilateral heterogeneous hypoenhancement of the kidneys. There is perinephric fat stranding and hyperenhancement in bilateral ureteral dhaliwal. There is a 1.5 cm stone in the left kidney upper pole and a 0.7 cm stone in the lower pole. No right nephrolithiasis.??Mild bilateral hydronephroureter.??No suspicious masses. Simple appearing renal cysts and hypodensities that are too small to characterize are noted, requiring no dedicated follow up.??Bladder: Decompressed around a suprapubic catheter. There is circumferential wall thickening and perivesical fat stranding.?Reproductive organs: Unremarkable.??Stomach, small bowel, and large bowel: Unchanged moderate-sized type III paraesophageal hernia. Otherwise, normal caliber stomach and bowel loops. There is circumferential wall thickening in rectal wall with surrounding fat stranding.??Appendix: Normal.??Peritoneum and retroperitoneum: No ascites or pneumoperitoneum. No omental or mesenteric lesions.??Lymph nodes: No enlarged l ymph nodes.??Blood vessels: Moderate atherosclerotic vascular calcification. No aortic aneurysm. Noevidence of venous thrombosis.??Abdominal and pelvic wall: Bilateral small inguinal hernias with trace fluid in the right hernia sac.??Bones: No acute abnormality. Bones are diffusely demineralized. Multilevel degenerative disc disease in the visualized spine. ?? IMPRESSION:??1. Findings highly suspicious for bilateral pyelonephritis.??2. Mild bilateral hydronephroureter without an obstructing stone.??3. Cystitis.??4. Proctitis.??5. Chronic findings as detailed above. Assessment/Plan ?? Assessment:??The patient is a 73-year-old male with a past medical history significant for??A. 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 difficile diarrhea. ID has been consulted for recommendations. ?? Pyelonephritis: The patient is on empiric treatment for a UTI with hydronephrosis and??Pseudomonas aeruginosa on culture. Unclear if he required a longer course previously or if he has a recurrent infection, given the recent admissions and antibiotic courses. Would continue the Zosyn for now while a dmitted as it is susceptible, and can stop the vancomycin as his wounds do not appear acutely infected. When ready for discharge, would transition to levofloxacin to target the P. aeruginosa and can complete 7 days. Last QTc on 12/09 was 420ms. While the stones/cysts are??nonobstructing and not presenting an anatomical problem, they place him at higher risk for recurrent infections as they may be colonized, which will be a problem for future infections with the new C. diff - should have Urology follow-up to address these.? C. difficile diarrhea: Unfortunately the patient has developed this complication in the setting of the recent frequent antibiotic use. As it is his first occurrence, would continue the 14-day course of PO vancomycin which should extend beyond his current antimicrobial course. In the future, he should not be placed??on broad-spectrum antibiotics unless absolutely necessary to prevent relapse - andif he does require antibiotics, should be concurrently started on secondary prophylaxis with BID POvancomycin. ?? Recommendations: ?? - Stop vancomycin IV - Continue piperacillin/tazobactam IV while inpatient - When ready for discharge, can transition to levofloxacin 750mg PO daily to complete a 7-day course (to end 12/16) - Should have Urology follow-up to address the stones which may be contributing to recurrent infections - PO vancomycin 125mg QID should be continued to complete a 14-day course (to end 12/25) - Patient should not be placed on broad-spectrum antibiotics unless absolutely necessary to preventrelapse, and if they are then also needs to be started on oral vancomycin 125 mg PO twice per day as a secondary prophylaxis and this should continue up until 7 days after he finishes the antibiotics - If the patient were to relapse, would start??a??prolonged 6-week PO vancomycin??taper and refer to ID outpatient for consideration of bezlotoxumab infusion vs VOWST ? Thank you for the consultation. Infectious Diseases will sign-off, please call with any questions or concerns.? Galina Marquez, DNP, HORSE SHOW MANAGER-BC [facility] Infectious Disease ?? Discussed with Dr. Rueda. Recommendations communicated with Dr. Villa??via TC. ?? Time-based billing: I spent a total of 75 + minutes today reviewing the chart/medical records, evaluating the patient, formulating and discussing the treatment plan, and documenting the findings and encounter. ?? (This note was dictated using the Premium Store software and any typographical/grammatical errors were notdeliberate) ?? Lab Results Test Name Test Result Date/Time WBC 8.6 k/mm3 12/13/2023 02:50 EDT RBC 3.23 m/mm3 12/13/2023 02:50 EDT Hgb 8.7 Gm/dL 12/13/2023 02:50 EDT Hct 27.8 % 12/13/2023 02:50 EDT MCV 86.1 femtoliters 12/13/2023 02:50 EDT MCH 26.9 pg 12/13/2023 02:50 EDT MCHC 31.3 g/dL 12/13/2023 02:50 EDT Platelet Count 245 k/mm3 12/13/2023 02:50 EDT RDW-SD 60.6 femtoliters 12/13/2023 02:50 EDT MPV 9.3 femtoliters 12/13/2023 02:50 EDT Nucleated RBC (Automated) 0.0 #/100 WBC'S 12/13/2023 02:50 EDT Abs. NRBC 0.0 k/mm3 12/13/2023 02:50 EDT Abs. Neut 6.5 k/mm3 12/13/2023 02:50 EDT Abs. Lymph 1.1 k/mm3 12/13/2023 02:50 EDT Abs. Ro[place] 0.5 k/mm3 12/13/2023 02:50 EDT Abs. Eo 0.4 k/mm3 12/13/2023 02:50 EDT Abs. Baso 0.0 k/mm3 12/13/2023 02:50 EDT Neut % 75.9 % 12/13/2023 02:50 EDT Lymph % 13.3 % 12/13/2023 02:50 EDT [place] % 5.3 % 12/13/2023 02:50 EDT Eos % 4.7 % 12/13/2023 02:50 EDT Baso % 0.4 % 12/13/2023 02:50 EDT Imm Gran 0.4 % 12/13/2023 02:50 EDT Abs. Imm Gran 0.0 k/mm3 12/13/2023 02:50 EDT Sodium 140 mmol/L 12/13/2023 02:50 EDT Potassium 3.7 mmol/L 12/13/2023 02:50 EDT Chloride 106 mmol/L 12/13/2023 02:50 EDT Bicarbonate Level 25 mmol/L 12/13/2023 02:50 EDT Anion Gap 9 12/13/2023 02:50 EDT Glucose Level 164 mg/dL 12/13/2023 02:50 EDT BUN 13 mg/dL 12/13/2023 02:50 EDT Creatinine-Blood 0.88 mg/dL 12/13/2023 02:50 EDT Estimated GFR Creatinine 92 ML/MIN/1.73 M2 12/13/2023 02:50 EDT Calcium 8.4 mg/dL 12/13/2023 02:50 EDT Magnesium 1.6 mg/dL 12/13/2023 02:50 EDT Images coccyx * Amanuel CAMACHO, Man Ocampo: PERFORM, MODIFY Event Display: Consultation Note Authored Date: Patient: ??ADRIAN TORREZ ? Age:??73 Years?Sex:??Male?:??1950?? History of Present Illness Asked to evaluate Adrian who is known to our service with h/o C5 EMILY A tetraplegia with spasticity--s/p intrathecal baclofen pump. He was transferred overnight from OSH for mgmt of complicated UTI/pyelonephritis. He is s/p suprapubic catheter. He is a h/o C. diff and is on PO Vanco and mild??bump in creatinine which is now improving. We manage is baclofen pump and it is due for refill no later than monday. We were asked to evaluate. Adrian denies any worsening of his spasticity.?? Review of Systems 14 point review of systems negative except as noted above in HPI. Physical Exam Vitals & Measurements T:??96.2?F?? HR:??52??(Peripheral)?? RR:??18?? RR:??18?? BP:??111/64?? SpO2:??98%?? HT:??174??cm?? WT:??99.2??kg?? BMI:??32.77?? 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 [facility] 1 bilat lower exts. ?? Last Name : Lore Birthdate : [birth year] First Name : Adrian Device : SynchroMed?II; 8637-20 [id number] Last Update : 10/10/23 3:33 PM LOW RESERVOIR ALARM Refill Pump Before:??12/16/23??Low [place] Alarm Volume : 2.0 mL Next Refill Appointment: - - - - - CHANGES MADE No workflow selected. 0 updates occurred. Changes made in: RESERVOIR Title Beginning of Session Current Settings [place] Volume 3.0 mL 3.0 mL DRUGS Title Beginning of Session Current Settings Primary: Baclofen (2,000.0 mcg/mL) Baclofen (2,000.0 mcg/mL) Is Patient Receiving Systemic Medication? - - - - - INFUSION Beginning of Session Monday - Monday : Flex Step Duration Baclofen Base Rate: - - - - - 262.4 mcg (11.0 mcg/hr) Step 1: 12:00 AM - 12:02 AM 2 min 40.0 mcg (1,199.2 mcg/hr) Step 2: 4:00 AM - 4:02 AM 2 min 40.0 mcg (1,199.2 mcg/hr) Step 3: 8:00 AM - 8:03 AM 3 min 70.0 mcg (1,400.7 mcg/hr) Step 4: 12:00 PM - 12:02 PM 2 min 40.0 mcg (1,199.2 mcg/hr) Step 5: 4:00 PM - 4:02 PM 2 min 40.0 mcg (1,199.2 mcg/hr) Step 6: 8:00 PM - 8:02 PM 2 min 40.0 mcg (1,199.2 mcg/hr) 24 Hour Dose:??532.3 mcg/day ?? Assessment/Plan 73yo M known to our service with h/o C5??EMILY??A tetraplegia with spasticity--s/p intrathecal baclofen pump managed by our??office. He has a h/o neurogenic bladder--s/p suprapubic cath admitted with pyelonephritis--on Zosyn. ?? Pump is operating appropriately and managing his spasticity well. Will refill the pump later this week before his alarm date of 12/16/23. For now, continue Baclofen 10mg PO TID. DVT PPx with Damir. Has HCP appointed. D/w Dr. Garcia. Seen with Mikhail Forman, MS3. ? Problem List/Past Medical History Ongoing Anemia Atrial fibrillation Bedsores Constipation COPD (chronic obstructive pulmonary disease) Elevated troponin GERD (gastroesophageal reflux disease) Hematuria Hypokalemia Hyponatremia Lower extremity edema Obese class I Presence of intrathecal baclofen pump Pyelonephritis Quadriplegia Spinal cord injury, cervical region Weakness Procedure/Surgical History Carpal tunnel release-b/l Rotator cuff repair-L Baclofen pump implant Decompression of cervical spine Suprapubic catheter Inguinal herniorrhaphy Home Medications Acetaminophen: 650 mg = 2 tablet, By Mouth, Every 6 hours, PRN (as needed for mild pain or fever) Al Hydroxide/Mg Hydroxide/Simethicone: 30 mL, By Mouth, Every 4 hours, PRN (Dyspepsia) apixaban: 5 mg = 1 tablet, By Mouth, 2 times a day Ascorbic Acid: 250 mg = 1 tablet, By Mouth, 3 times a day Baclofen: 10 mg = 1 tablet, By Mouth, 3 times a day Bisacodyl: 10 mg = 1 supp, Rectally, Every 48 hours Bisacodyl: 10 mg = 1 supp, Rectally, Daily, Daily afer dinner. Docusate: 100 mg = 1 capsule, By Mouth, Daily Escitalopram: 10 mg = 1 tablet, By Mouth, Daily Gabapentin: 300 mg = 1 capsule, By Mouth, 3 times a day Melatonin: 3 mg = 1 tablet, By Mouth, Daily at bedtime Methenamine Midodrine: 5 mg = 1 tablet, By Mouth, 2 times a day, PRN (Blood Pressure), 9 am and 3 pm Miscellaneous Rx (Please provide 24/7 EXECUTIVE SALES MANAGER care and weekly VNA visits for medication management.) (Please provide 24/7 EXECUTIVE SALES MANAGER care and weekly VNA visits for medication management.): See Instructions, Dx:Tetraplegia Multivitamin With Minerals: 1 tablet, By Mouth, Daily Nystatin Topical: 1 application, Topically, 3 times a day onabotulinumtoxinA: See Instructions, 200 units total to right elbow flexors +/- shoulder. Pantoprazole: 40 mg, By Mouth, 2 times a day Polyethylene Glycol 3350: 17 Gm, By Mouth, Daily, PRN (Constipation), dissolve in water before taking Psyllium: 2,000 mg = 5 capsule, By Mouth, 4 times a day, PRN (as needed for constipation), with at least 8 ounces of water Simethicone: 80 mg, 3 times a day after meals and bedtime Hospital Medications Medications (21) Active SCHEDULED: (12) Apixaban 5 mg Tablet (apixaban) ??5 mg, By Mouth, 2 times a day Ascorbic Acid 250 mg Tablet (Vitamin C 250 mg oral tablet) ??250 mg, By Mouth, 3 times a day Baclofen 10 mg Tablet (baclofen 10 mg oral tablet) ??10 mg, By Mouth, 3 times a day Escitalopram 10 mg Tablet (escitalopram 10 mg oral tablet) ??10 mg, By Mouth, Daily Gabapentin 300 mg Capsule (gabapentin 300 mg oral capsule) ??300 mg, By Mouth, 3 times a day Multivitamin Therapeutic / Minerals Tablet (Multivit Therapeutic/Minerals Tablet) ??1 tablet, By Mouth, Daily NaCL 0.9% Flush 10ml (BD Normal Saline Flush) ??100 mL, Intrabladder, 2 times a day NaCl 0.9% Flush 3ml (NaCL 0.9% Flush) ??3 mL, IV Push, Every 8 hours Nystatin Powder ??1 application, Topically, 2 times a day Pantoprazole 40 mg EC Tablet (pantoprazole 40 mg oral delayed release tablet) ??40 mg, By Mouth, 2 times a day Piperacillin/Tazobactam 3.375 Gm Inj (Zosyn Extended IVPB) ??3.375 Gm, IVPB, Every 8 hours Vancomycin 125 mg Capsule (Vancomycin Capsule) ??125 mg, By Mouth, Every 6 hours CONTINUOUS: (0) PRN: (9) Acetaminophen 325 mg Tablet (Acetaminophen Tablet) ??650 mg, By Mouth, Every 4 hours Dextromethorphan-Guaifenesin 20 mg-200 mg/10 mL Liqu UD (Robitussin DM Liquid) ??10 mL, By Mouth, Every 4 hours Docusate Sodium 100 mg Capsule (Docusate Sodium Capsule) ??100 mg 1 capsule, By Mouth, 2 times a day Melatonin 3 mg Tablet (Melatonin Tablet) ??3 mg, By Mouth, Daily at bedtime Midodrine 5 mg Tablet (midodrine 5 mg oral tablet) ??5 mg, By Mouth, 2 times a day NaCl 0.9% Flush 3ml (NaCL 0.9% Flush) ??3 mL, IV Push, Every 8 hours Polyethylene Glycol 17 Gm Powder (MiraLax Powder) ??17 Gm 1 pack/packet, By Mouth, Daily Senna Tablet ??8.6 mg 1 tablet, By Mouth, 2 times a day Simethicone 80 mg Chewable Tablet (Simethicone Tablet) ??80 mg, Chew, 3 times a day Lab Results PM&R Labs WBC: 8.6 k/mm3 (12/13/23) Platelet Count: 245 k/mm3 (12/13/23) Sodium: 140 mmol/L (12/13/23) BUN: 13 mg/dL (12/13/23) Creatinine-Blood: 0.88 mg/dL (12/13/23) AST (SGOT): 18 units/L (12/12/23 07:10:00) AST (SGOT): 19 units/L (12/10/23 11:38:00) ALT (SGPT): 17 units/L (12/12/23 07:10:00) ALT (SGPT): 14 units/L (12/10/23 11:38:00) Note * Betty Rg RN: PERFORM Event Display: Discharge/Transfer Note Hospital Authored Date: [id number] Nursing Discharge Note Entered On: 12/14/2023 11:10 EDT Performed On: 12/14/2023 11:10 EDT by Betty Rg RN Nursing Discharge Note 2 Discharge Time : 12/14/2023 15:30 EDT Gloria Harmon RN - 12/14/2023 16:04 EDT Discharge Level of Care at Discharge : Home/Senior Care/Foster Care Patient Left Unit Via : Ambulance Patient Accompanied Off Unit with : Ambulance/Chair Van Personnel Handover Given to Transport Personnel : Yes DC Instructions Provided & Signed by Pt : Unable Patient Understands D/C Instructions : Unable Patient Instructions Discharge Signed : No Did Pt have Specialty Bed or Wound Vac : No Betty Rg RN - 12/14/2023 11:10 EDT * Allen CAMACHO, Russell Muller: PERFORM Event Display: Discharge/Transfer Note Hospital Authored Date: Patient: ??ADRIAN TORREZ ? Age:??73 Years?Sex:??Male?:??1950?? Patient Information Discharge Location: W4 Primary Care Physician: Aba Linares DO Admit Date/Time: 12/12/23 23:22 Discharge Disposition Discharge Disposition: Home: No Services Discharge Diagnosis UTI (urinary tract infection) (N39.0) Quadriplegia (G82.50) Presence of intrathecal baclofen pump (Z97.8) Presence of suprapubic catheter (Z93.59) GERD (gastroesophageal reflux disease) (K21.9) COPD without exacerbation (J44.9) A-fib (I48.91) Anemia (D64.9) Pyelonephritis (N12) Decubitus ulcer (L89.90) Infected wound (T14.8XXA) Hypokalemia (E87.6) Acute renal failure (N17.9) Hyponatremia (E87.1) Elevated troponin (R79.89) Colitis, Clostridium difficile (A04.72) Hydroureter (N13.4) _ Discharge Medications Acetaminophen (Tylenol 325 mg oral tablet)?650?Milligram?2?tablet?By Mouth?Every 6 hours?as needed?as needed for mild pain or fever Al Hydroxide/Mg Hydroxide/Simethicone (Maalox Plus Liquid)?30?Milliliter?By Mouth?Every4 hours?as needed?Dyspepsia apixaban (Eliquis Starter Pack 5 mg oral tablet)?1?tab(s)?5?Milligram?By Mouth?2 times a day Ascorbic Acid (Vitamin C 250 mg oral tablet)?1?tab(s)?250?Milligram?By Mouth?3 times a day Baclofen (baclofen 10 mg oral tablet)?10?Milligram?1?tablet?By Mouth?3 times a day Escitalopram (escitalopram 10 mg oral tablet)?1?tab(s)?10?Milligram?By Mouth?Daily Gabapentin (gabapentin 300 mg oral capsule)?300?Milligram?1?capsule?By Mouth?3 times a day Levofloxacin (levoFLOXacin 750 mg oral tablet)?750?Milligram?By Mouth?Daily?for 4?Days Melatonin (melatonin 3 mg oral tablet)?1?tab(s)?3?Milligram?By Mouth?Daily at bedtime Midodrine (midodrine 5 mg oral tablet)?5?Milligram?1?tablet?By Mouth?2 times a day?as needed?9 am and 3 pm?Blood Pressure Miscellaneous Rx (Please provide 24/7 EXECUTIVE SALES MANAGER care and weekly VNA visits for medication management.)?See Instructions?Dx: Tetraplegia Multivitamin With Minerals?1?tab(s)?By Mouth?Daily Nystatin Topical (nystatin topical 259618 u/gm powder)?1?joshua?Topically?3 times a day onabotulinumtoxinA (Botox 100 units injection)?See Instructions?200 units total to right elbow flexors +/- shoulder. Polyethylene Glycol 3350 (MiraLax oral powder for reconstitution)?17?gram?By Mouth?Daily?as needed?Constipation?dissolve in water before taking Psyllium (Metamucil 400 mg oral capsule)?5?capsule?2,000?Milligram?By Mouth?4 times a day?as needed?as needed for constipation?with at least 8 ounces of water Simethicone (Mylanta Gas)?80?Milligram?3 times a day after meals and bedtime Vancomycin (vancomycin 125 mg oral capsule)?125?Milligram?By Mouth?Every 6 hours?for12?Days?Doses over 125 mg require ID consult. Indication for Use: C. difficile colitis ? Medications Started ?? Levofloxacin Oral vancomycin PCP Follow-Up/Heads-Up ?? Diagnosed with bilateral pyelonephritis,??infectious disease team recommended 7 days of treatment, levofloxacin was prescribed Also found to have diarrhea with C. difficile??infection, or volume of diarrhea improved at time ofdischarge, completing 14 days of oral vancomycin ?? Has nonobstructing kidney stones,??urology??contact information provided??to discuss stone treatment??later on Future Appointments Monday 1:00 PM EDT ?? With: Clare Medrano MD Where: [facility] Plastic Surgery [address] [place] [id number]- Status: Pending Hospital Course ?? 73-year-old male with PMH including spinal cord injury, quadriplegia, intrathecal baclofen pump, suprapubic catheter (changed about a week ago), GERD, COPD, A-fib, anemia.??Patient transferred from [facility] for further management of complicated UTI/pyelonephritis. Seen by infectious disease doctors, recommended 7 more days of antibiotics with p.o. levofloxacin which was prescribed Furthermore was found to have C. difficile infection, volume of diarrhea improved,??infectious disease recommended 14 days of p.o. vancomycin completed therapy which was prescribed as well ?? Baclofen pump was refilled during hospital stay by physical medicine and rehab team on 12/13 Urology team provided contact information for patient to schedule outpatient follow-up to see if his nonobstructing stones??would improve with treatment, currently no inpatient intervention recommended ?? UTI (urinary tract infection) (N39.0) ?Grouped with??Pyelonephritis (N12),??Presence of suprapubic catheter (Z93.59) ? UA suggestive of UTI, urine culture shows??Pseudomonas aeruginosa. Was on Zosyn in hospital, switched to p.o.??levofloxacin at time of discharge as per infectious disease recommendations ? Final infectious disease recommendations recommendations: - When ready for discharge, can transition to levofloxacin 750mg PO daily to complete a 7-day course (to end 12/16) - Should have Urology follow-up to address the stones which may be contributing to recurrent infections - PO vancomycin 125mg QID should be continued to complete a 14-day course (to end 12/25) - Patient should not be placed on broad-spectrum antibiotics unless absolutely necessary to preventrelapse, and if they are then also needs to be started on oral vancomycin 125 mg PO twice per day as a secondary prophylaxis and this should continue up until 7 days after he finishes the antibiotics - If the patient were to relapse, would start??a??prolonged 6-week PO vancomycin??taper and refer to ID outpatient for consideration of bezlotoxumab infusion vs VOWST ? Decubitus ulcer (L89.90) Hospitalist at [facility]??spoke with surgery??who recommended??no surgical intervention Home wound care to continue ?? Colitis, Clostridium difficile (A04.72):?? Contact isolation.??Continue??vancomycin oral.?? As detailed above ?? Acute renal failure (N17.9) ?Grouped with??Hydroureter (N13.4),??Hyponatremia (E87.1),??Hypokalemia (E87.6) Patient on admission??to another hospital was found to have renal failure,??has improved??with hydration.?? Patient also had hyponatremia??that has resolved.? Elevated troponin (R79.89): ??Troponin flat, no EKG change, no chest pain. ?? Quadriplegia (G82.50) Presence of intrathecal baclofen pump (Z97.8) ? Continue gabapentin, baclofen. Baclofen pump was refilled prior to discharge 12/13 ?? Anemia (D64.9):??Stable,??monitor. A-fib (I48.91):??On Eliquis.??Not on??beta-deonte. COPD without exacerbation (J44.9):??On examination, nebs as needed. GERD (gastroesophageal reflux disease) (K21.9):??Pantoprazole. ? Objective Measurements?? Height: 174 cm (12/14/23) Weight: 99.2 kg (12/12/23) Dry Weight: 99.2 kg (12/12/23) Body Mass Index:??32.77 kg/m2??Critical (12/12/23) ? Vital Signs?? Temperature: 97.7 DegF (12/14/23 07:55:00) Temperature Route: Oral (12/14/23 07:55:00) Pulse Rate:??53 bpm??Low (12/14/23 07:55:00) Respiratory Rate: 16 br/min (12/14/23 09:54:00) Systolic Blood Pressure:??139 mm Hg??High (12/14/23 07:55:00) Diastolic Blood Pressure: 59 mm Hg (12/14/23 07:55:00) Blood pressure sites: Arm, left (12/14/23 07:55:00) Mean Arterial Pressure: 86 mm Hg (12/14/23 07:55:00) Pulse Pressure: 80 mm Hg (12/14/23 07:55:00) Oxygen Saturation: 100 % (12/14/23 07:55:00) Mode of Delivery (Oxygen): Room air (12/14/23 07:55:00) Early Warning Score: 2 (12/14/23 09:08:04) ? . Physical Exam ?? General: Resting comfortably, contractures at baseline due to paraplegia Cardiac: Regular rate rhythm no murmurs Respiratory: Diminished breath sounds at bases but on room air otherwise clear to auscultation Abdomen: Soft, nontender, suprapubic catheter in place Neuro: At his baseline, mentation normal ?? Pending Results No Pending Results Follow-Up Appointments Added Follow Up ?Time Frame ?Comments Milagros DO, Aba A?Within one week Patient Instructions ? You are admitted to the hospital due to bilateral kidney infection known as pyelonephritis??as wellas a diarrhea infection known as C. difficile You improved with antibiotics, the infectious disease doctors recommended total 7 days of??levofloxacin antibiotic for your??kidney infection/pyelonephritis and??14 days of total treatment for your C. difficile diarrhea infection with oral vancomycin, both of these have been sent to your pharmacy of choice ?? While you are in the hospital your baclofen pump was refilled on 12/14/2019 for ?? Furthermore you have some stones in your kidneys but these are not causing any obstructions,??the kidney surgeons evaluated your case and recommend you call and arrange a follow-up with them??in around 2 weeks??to see if you would need treatment for the stones. ??The number for the urology office??is [phone]. ?? Please follow-up with your primary care physician Post Discharge Care Diet: ??Regular Diet ?? Activity: ??As tolerated at baseline ?? Code Status: ??Full Resuscitation ?? Condition: ??Stable ?? Prognosis: ??Fair ?? Discharge ?12/14/23 10:40:00 EDT Discharge Prescriptions ?ePrescribed, 12/14/23 10:40:00 EDT Home Health Face to Face ^HomeHealthFTF Results Discharge Labs BLOOD COUNT & DIFF WBC 8.3 k/mm3 ()?? 12/14/2023 07:38 RBC 3.39 m/mm3 (Low)?? 12/14/2023 07:38 Hgb 8.8 Gm/dL (Low)?? 12/14/2023 07:38 Hct 29.3 % (Low)?? 12/14/2023 07:38 MCV 86.4 femtoliters ()?? 12/14/2023 07:38 MCH 26.0 pg (Low)?? 12/14/2023 07:38 MCHC 30.0 g/dL (Low)?? 12/14/2023 07:38 Platelet Count 306 k/mm3 ()?? 12/14/2023 07:38 RDW-SD 60.8 femtoliters (High)?? 12/14/2023 07:38 MPV 9.6 femtoliters ()?? 12/14/2023 07:38 Nucleated RBC (Automated) 0.0 #/100 WBC'S ()?? 12/14/2023 07:38 Abs. NRBC 0.0 k/mm3 ()?? 12/14/2023 07:38 Abs. Neut 6.5 k/mm3 ()?? 12/13/2023 02:50 Abs. Lymph 1.1 k/mm3 ()?? 12/13/2023 02:50 Abs. Roane 0.5 k/mm3 ()?? 12/13/2023 02:50 Abs. Eo 0.4 k/mm3 ()?? 12/13/2023 02:50 Abs. Baso 0.0 k/mm3 ()?? 12/13/2023 02:50 Neut % 75.9 % ()?? 12/13/2023 02:50 Lymph % 13.3 % (Low)?? 12/13/2023 02:50 Roane % 5.3 % ()?? 12/13/2023 02:50 Eos % 4.7 % ()?? 12/13/2023 02:50 Baso % 0.4 % ()?? 12/13/2023 02:50 Imm Gran 0.4 % ()?? 12/13/2023 02:50 Abs. Imm Gran 0.0 k/mm3 ()?? 12/13/2023 02:50 ?? CHEM GENERAL Sodium 143 mmol/L ()?? 12/14/2023 07:38 Potassium 3.8 mmol/L ()?? 12/14/2023 07:38 Chloride 108 mmol/L (High)?? 12/14/2023 07:38 Bicarbonate Level 24 mmol/L ()?? 12/14/2023 07:38 Anion Gap 11 ()?? 12/14/2023 07:38 Glucose Level 105 mg/dL (High)?? 12/14/2023 07:38 BUN 8 mg/dL ()?? 12/14/2023 07:38 Creatinine-Blood 0.73 mg/dL ()?? 12/14/2023 07:38 Estimated GFR Creatinine 97 ML/MIN/1.73 M2 ()?? 12/14/2023 07:38 Calcium 8.4 mg/dL (Low)?? 12/13/2023 02:50 Calcium, Ionized pH Corrected 1.26 mmol/L ()?? 12/14/2023 07:38 Phosphorus 3.3 mg/dL ()?? 12/14/2023 07:38 Magnesium 1.9 mg/dL ()?? 12/14/2023 07:38 ? URINE OTHER Est Creatinine Clearance 91.32 mL/min ()?? 12/14/2023 08:19 ? 42_ minutes spent on discharge * Arcenio THURSTON, Betty: PERFORM Event Display: Patient Education/Instruction Authored Date: Inpatient Adult Discharge Instructions. [address] [address] Name: ADRIAN TORREZ : 1950?? Visit: 12/12/2023 23:22?? Current Date: 12/14/2023 11:11 ?? Account: [id number]?? Inpatient Adult Discharge Instructions We would like to thank [...] and their families. Surveys are administered by [employer]. ?? If further treatment with your primary care physician or another doctor is recommended, it is important for you to keep the appointment. Call your primary care physician or return to the Emergency Department immediately if your condition worsens, fails to improve, or new symptoms develop. If you need to find a doctor, you can call [facility] [employer] [facility] for a referral at [phone] or toll free at [phone]) or log in to [email or web address].. ?? [facility], in keeping with [facility] guidance, no longer requires face masks for [...] a health care joshua of your choosing. [employer] is a website that allows you to securely view your medical information including your hospital discharge summary, office visit summaries, medications and follow-up visits. You can also request appointments, renew medications, and request access to your medical information using a health care joshua of your choosing, or just ask a question. You can enroll at [email or web address] or register during your next office visit. You have been discharged from [facility], Patient Care Unit: W4??. If you have any questions regarding these instructions, including results of studies pending, afteryou leave, please call us and we will be happy to assist you 28/11. [facility] Your Care Team Attending Physician Russell Villa MD?? Consulting Providers Russell Villa MD?? Discharging Providers Russell Villa MD Your Diagnosis A-fib Acute renal failure Anemia Colitis, Clostridium difficile COPD without exacerbation Decubitus ulcer Elevated troponin GERD (gastroesophageal reflux disease) Hydroureter Hypokalemia Hyponatremia Infected wound Presence of intrathecal baclofen pump Presence of suprapubic catheter Pyelonephritis Quadriplegia UTI (urinary tract infection) Tests Performed Below is a partial list of the tests performed during your hospitalization. You may have had other tests and procedures not included in this list. Please discuss all test results with your provider. BUN Calcium Level CBC CBC w/ Differential Creatinine Electrolytes Glucose Level Ionized Calcium Magnesium Level Phosphorus Level BUN?? CBC?? CBC w/ Differential?? Calcium Level?? Creatinine?? Electrolytes?? Glucose Level?? Ionized Calcium?? Magnesium Level?? Phosphorus Level?? Primary Care Provider Milagros CHUNG, Aba Gee? Advance Directive Health Care Proxy on File Yes - Health Care Proxy Yes - MOLST Discharge Vitals Temperature: 97.7 DegF Height: 174 cm Pulse Rate:??53 bpm??Low Weight: 99.2 kg Respiratory Rate: 16 br/min Body Mass Index:??32.77 kg/m2??Critical Systolic Blood Pressure:??139 mm Hg??High Body surface area: 2.19 Diastolic Blood Pressure: 59 mm Hg ?? Oxygen Saturation: 100 % ?? Studies Pending All studies ordered during this hospital stay have been completed unless listed below. Please discuss all pending results with your provider listed above in these instructions. ?? No incomplete studies found?? What to do next Instructions From Your Doctor ? You are admitted to the hospital due to bilateral kidney infection known as pyelonephritis??as wellas a diarrhea infection known as C. difficile You improved with antibiotics, the infectious disease doctors recommended total 7 days of??levofloxacin antibiotic for your??kidney infection/pyelonephritis and??14 days of total treatment for your C. difficile diarrhea infection with oral vancomycin, both of these have been sent to your pharmacy of choice ?? While you are in the hospital your baclofen pump was refilled on 12/14/2019 for ?? Furthermore you have some stones in your kidneys but these are not causing any obstructions,??the kidney surgeons evaluated your case and recommend you call and arrange a follow-up with them??in around 2 weeks??to see if you would need treatment for the stones. ??The number for the urology office??is [phone]. ?? Please follow-up with your primary care physician ?? Orders??:Regular Diet :As tolerated at baseline Status: ??Full Resuscitation :Stable :Fair? 12/14/23 10:40:00 EDT?? Prescriptions??, ??12/14/23 10:40:00 EDT?? Scheduled Follow-Up Appointments Monday 1:00 PM EDT ?? With: Clare Medrano MD Where: [facility] Plastic Surgery [address] [place] [phone]- Status: Pending You Need to Schedule the Following Appointments Follow Up with??Milagros DO, Aba A When:??Within Within one week Where: [address] [place] [address] [place] [address]- Discharge Medications ADRIAN TORREZ :1950 Visit Date:12/12/2023 Medications: Please continue your medications until treatment is completed or stopped by your provider. Medications not listed below should be discontinued. Discuss any questions related to medications with your provider. What How Much When Instructions Next Dose New Levofloxacin (levoFLOXacin 750 mg oral tablet) 750 Milligram Oral Daily Duration: 4 [facility] [address] [facility] Tomorrow 12/14 in the morning New Vancomycin (vancomycin 125 mg oral capsule) 125 Milligram Oral Every 6 hours Duration: 12 Days Doses over 125 mg require ID consult. Indication for Use: C. difficile colitis ?? [facility] [place] [address] [facility]) Take every 6 hours, next dose tonight 12/13 at 9pm Unchanged Acetaminophen (Tylenol 325 mg oral tablet) 2 tab(s) Oral Every 6 hours as needed for as needed for mild pain or fever Every 6 hours as needed for as needed for mild pain or fever Unchanged Al Hydroxide/ Mg Hydroxide/ Simethicone (Maalox Plus Liquid) 30 Milliliter Oral Every 4 hours as needed for Dyspepsia Every 4 hours as needed for Dyspepsia Unchanged apixaban (Eliquis Starter Pack 5 mg oral tablet) 1 tab(s) Oral Twice a day Tonight 12/13 at 9pm Unchanged Ascorbic Acid (Vitamin C 250 mg oral tablet) 1 tab(s) Oral 3 times a day Tonight 8 at 9pm Unchanged Baclofen (baclofen 10 mg oral tablet) 1 tab(s) Oral 3 times a day Tonight 12/13 at 9pm Unchanged Escitalopram (escitalopram 10 mg oral tablet) 1 tab(s) Oral Daily Tomorrow 12/14 in the morning Unchanged Gabapentin (gabapentin 300 mg oral capsule) 1 capsule Oral 3 times a day Tonight 12/13 at 9pm Unchanged Melatonin (melatonin 3 mg oral tablet) 1 tab(s) Oral Daily at Bedtime Tonight 12/13 at bedtime Unchanged Methenamine (methenamine hippurate 1 gm oral tablet) Resume previous schedule Unchanged Midodrine (midodrine 5 mg oral tablet) 1 tab(s) Oral Twice a day as needed for Blood Pressure 9 am and 3 pm ?? Twice a day as needed for Blood Pressure Unchanged Miscellaneous Rx (Please provide 24/ EXECUTIVE SALES MANAGER care and weekly VNA visits for medication management.) See instructions Dx: Tetraplegia ?? Resume previous schedule Unchanged Multivitamin With Minerals 1 tab(s) Oral Daily Tomorrow 12/14 in the morning Unchanged Nystatin Topical (nystatin topical 074942 u/ gm powder) 1 joshua Topically 3 times a day Tonight 12/13 at 9pm Unchanged onabotulinumtoxinA (Botox 100 units injection) See instructions 200 units total to right elbow flexors +/ - shoulder. ?? Resume previous schedule Unchanged Polyethylene Glycol 3350 (MiraLax oral powder for reconstitution) 17 gram Oral Daily as needed for Constipation dissolve in water before taking ?? Daily as needed for Constipation Unchanged Psyllium (Metamucil 400 mg oral capsule) 5 capsule Oral 4 times a day as needed for as needed for constipation with at least 8 ounces of water ?? 4 times a day as needed for as needed for constipation Unchanged Simethicone (Mylanta Gas) 80 Milligram 3 times a day after meals and bedtime 3 times a day after meals and bedtime Pharmacy Information [place] [address] ([place] [address]): [address] [place], [place] [phone] ?? What How Much When Comments Stop Taking Bisacodyl (bisacodyl 10 mg rectal suppository) 1 suppository(ies) Per rectum Every 48 hours Stop Taking Bisacodyl (Magic Bullet 10 mg rectal suppository) 1 suppository(ies) Per rectum Daily Daily afer dinner. ?? Stop Taking Docusate (Colace sodium 100 mg oral capsule) 1 capsule Oral Daily Stop Taking Pantoprazole (pantoprazole 40 mg oral delayed release tablet) 40 Milligram Oral Twice a day Prescription Given During Visit Levofloxacin (levoFLOXacin 750 mg oral tablet) - 750 mg, By Mouth, Daily, # 4 tablet, 0 Refills, [facility] ([place] [address]), [address] [place] [phone]?? Vancomycin (vancomycin 125 mg oral capsule) - 125 mg, By Mouth, Every 6 hours, # 48 tablet, 0 Refills, Doses over 125 mg require ID consult. Indication for Use: C. difficile colitis, [facility] ([place] [address]), [address] [place] [phone]?? Laboratory Results Below is a partial list of the most recent Laboratory test results done prior to this discharge. You may have had other tests and procedures not included in this list. Please discuss all test resultswith your provider. Est Creatinine Clearance - 91.32 mL/min (12/14/2023) BUN (12/14/2023) ???BUN - 8 mg/dL Calcium Level (12/13/2023) ???Calcium - 8.4 mg/dL CBC (12/14/2023) ???WBC - 8.3 k/mm3???RBC - 3.39 m/mm3???Hgb - 8.8 Gm/dL???Hct - 29.3 %???MCV - 86.4 femtoliters???MCH - 26.0 pg???MCHC - 30.0 g/dL???Platelet Count - 306 k/mm3???RDW-SD - 60.8 femtoliters???MPV - 9.6femtoliters???Nucleated RBC (Automated) - 0.0 #/100 WBC'S???Abs. NRBC - 0.0 k/mm3 CBC w/ Differential (12/13/2023) ???WBC - 8.6 k/mm3???RBC - 3.23 m/mm3???Hgb - 8.7 Gm/dL???Hct - 27.8 %???MCV - 86.1 femtoliters???MCH - 26.9 pg???MCHC - 31.3 g/dL???Platelet Count - 245 k/mm3???RDW-SD - 60.6 femtoliters???MPV - 9.3femtoliters???Nucleated RBC (Automated) - 0.0 #/100 WBC'S???Abs. NRBC - 0.0 k/mm3???Abs. Neut - 6.5 k/mm3???Abs. Lymph - 1.1 k/mm3???Abs. Roane - 0.5 k/mm3???Abs. Eo - 0.4 k/mm3???Abs. Baso - 0.0 k/mm3???Neut % - 75.9 %???Lymph % - 13.3 %???Roane % - 5.3 %???Eos % - 4.7 %???Baso % - 0.4 %???Imm Gran - 0.4 %???Abs. Imm Gran - 0.0 k/mm3 Creatinine (12/14/2023) ???Creatinine-Blood - 0.73 mg/dL???Estimated GFR Creatinine - 97 ML/MIN/1.73 M2 Electrolytes (12/14/2023) ???Sodium - 143 mmol/L???Potassium - 3.8 mmol/L???Chloride - 108 mmol/L???Bicarbonate Level - 24 mmol/L???Anion Gap - 11 Glucose Level (12/14/2023) ???Glucose Level - 105 mg/dL Ionized Calcium (12/14/2023) ???Calcium, Ionized pH Corrected - 1.26 mmol/L Magnesium Level (12/14/2023) ???Magnesium - 1.9 mg/dL Phosphorus Level (12/14/2023) ???Phosphorus - 3.3 mg/dL You will be contacted within 72 hours with your results. Allergies (NKA means No Known Allergies) NKA Problems Active Problems??(17) Anemia?? Atrial fibrillation?? Bedsores?? Constipation?? COPD (chronic obstructive pulmonary disease)?? Elevated troponin?? GERD (gastroesophageal reflux disease)?? Hematuria?? Hypokalemia?? Hyponatremia?? Lower extremity edema?? Obese class I?? Presence of intrathecal baclofen pump?? Pyelonephritis?? Quadriplegia?? Spinal cord injury, cervical region?? Weakness?? Education Materials Below is the list of Educational Leaflet Providered with your Discharge Instructions. Valuables and Belongings I fully understand and agree that [facility] accepts no responsibility for all my [...] to send valuables and belongings home. ?? Date for Pt to Sign Valuables/Belongings: 12/12/23 23:43:00 ?? Other Discharge Information ? Case Management Discharge Plan?? Discharge Plan?? Discharge Level of Care at Discharge: Home/Senior Care/Foster Care ?? Pulmonary Rehab Status?? Pulmonary Rehab Discharge Status?? Respiratory Rate: 16 br/min ? Common Emergency Awareness Tips IS IT A [...] are strongly encouraged to quit. Please call [facility] [employer] [facility] at [phone] or [phone]) or log in to [email or web address] for referrals to smoking cessation programs. ?? 648 Suicide & Crisis Lifeline is available 28/11 if you or someone you know needs to find a reason to keep living. By calling 768 you'll be connected to a skilled, trained counselor at a crisis center in your area. INPATIENT DISCHARGE INSTRUCTIONS SIGNATURE PAGE LORE ADRIAN Location:[place] [facility] Date and Time:12/12/2023 23:22 EDT Primary Care Physician: Aba Linares DO, Attending Physician: Allen CAMACHO, Russell Muller, I ADRIAN TORREZ, have received the above patient education materials/instructions and have verbalized understanding. If ambulance or transport services are being used I further acknowledge being given a choice of service. ?? If you need to contact me, please call me at this number: . Patient/Clinical Trial Specialist Name: Patient/Clinical Trial Specialist Signature: Relationship to Patient: Witness Name/Signature: Date: Patient Care team information Care Team Personnel Name: Danny Whittaker RN Position: [facility] ED RN W/OE and Tasks Member Role: Primary Care Nurse Name: Rupali Burgos RN Position: S RN Member Role: Primary Care Nurse Name: Aba Linares DO Position: Reference Physician Member Role: PCP Address: Address: [address] [place] [address] Internal Medicine [place], [place] [address] [[email or web address] Name: Tesha Kirkpatrick RN Position: S RN Member Role: Primary Care Nurse Name: Karoline Rader RN Position: S RN Member Role: Primary Care Nurse Name: Clay Najera RN Position: S RN Supv Member Role: Primary Care Nurse Name: Vera Patricia RN Position: [facility] Nurse Member Role: Primary Care Nurse Name: Genevieve Orozco RN Position: S RN Member Role: Primary Care Nurse Care Team Related Persons Name: CIRO TORREZ Address: home [address] [place] [id number] Name: FARNAZ HANNAH
--- OUTSIDE RECORDS SUMMARY | 2024-01-09 11:27 | XMS_ITS | Continuity of Care Document ---
Author Organization [facility] ter Address [address] [place] [id number]- Care Team Providers Care Container Crane Operator Name Role Phone Aba Linares DO Primary Care Physician [phone] [place] [facility] [place](s): 10/11/23 - 12/21/[address] [address] Attending Physician: Sophei Mayo MD Admitting Physician: Sophie Mayo MD Allergies, Adverse Reactions, Alerts No Known Allergies Medications baclofen 10 mg oral tablet 10 mg, 1, tablet, By Mouth, 3 times a day, # 90 tablet, Refills 0, Tot. Refills 0, Maintenance, 05/26/22 15:47:00 EST, Route to Pharmacy Electronically, [facility]/pharmacy #[id number], Partial fill upon patient request if the [...] Start Date: 08/12/21 Status: Ordered nystatin topical [id number] u/gm powder 1 application, Topically, 3 times a day, # 30 Gm, 0 Refills, Maintenance, 10/12/23 15:10:00 EDT, Powder, Partial fill upon patient request if the prescription is for a schedule II opioid drug. Start Date: 10/12/23 Status: Ordered Please provide 28/11 RESOLUTION ANALYST care and weekly VNA visits for medication management. Please provide 28/11 RESOLUTION ANALYST care and weekly VNA visits for [...] 12/26/23 13:00:00 EDT, 12/14/23 13:00:00 EDT, Capsule, [employer] [id number] ([employer] 827), Part... Start Date: 12/14/23 Stop Date: [...] Care Nurse Name: Rupali Burgos RN Position: [facility] RN Member Role: Primary Care Nurse Name: Aba Linares DO Position: Reference Physician Member Role: PCP Address: Address: [address] [place] [address] Internal Medicine [place], [place] [address] Name: Tesha Kirkpatrick RN Position: [facility] RN Member Role: Primary Care Nurse Name: Karoline Rader RN Position: [facility] RN Member Role: Primary Care Nurse Name: Clay Najera RN Position: [facility] RN Supv Member Role: Primary Care Nurse Name: Vera Patricia RN Position: [facility] AMB Nurse Member Role: Primary Care Nurse Name: Genevieve Orozco RN Position: [facility] RN Member Role: Primary Care Nurse Care Team Related Persons Name: CIRO TORREZ Address: [address] [address] Name: FARNAZ HANNAH
--- OUTSIDE RECORDS SUMMARY | 2024-01-09 11:27 | XMS_ITS | Continuity of Care Document ---
Author Organization [facility] Raymond lalito Address [address] [place] [address] [address] [place] [address]- Care Team Providers Care Motorcycle Deliverer Name Role Phone Milagros CHUNG Aba Gee Primary Care Physician [place] [facility] [place] 11/06/23 - 12/20/23 [facility] [address] [place] [address] Attending Physician: Mitchell CAMACHO, Clare Referring Physician: Aba Linares DO Allergies, Adverse Reactions, Alerts No Known Allergies Medications baclofen 10 mg oral tablet 10 mg, 1, tablet, By Mouth, 3 times a day, # 90 tablet, Refills 0, Tot. Refills 0, Maintenance, 05/26/22 15:47:00 EST, Route to Pharmacy Electronically, [facility]/pharmacy #[id number], Partial fill upon patient request if the [...] 09/17/21 16:24:00 EDT, REC Powder, [facility]/pharmacy #[id number], Partial fill upon patient request if [...] Start Date: 08/12/21 Status: Ordered nystatin topical 924799 u/gm powder 1 application, Topically, 3 times a day, # 30 Gm, 0 Refills, Maintenance, 10/12/23 15:10:00 EDT, Powder, Partial fill upon patient request if the prescription is for a schedule II opioid drug. Start Date: 10/12/23 Status: Ordered Please provide 28/11 HANDBAG PARTS CUTTER care and weekly VNA visits for medication management. Please provide 28/11 HANDBAG PARTS CUTTER care and weekly VNA visits for [...] 12/26/23 13:00:00 EDT, 12/14/23 13:00:00 EDT, Capsule, [employer] [id number] ([employer] 827), Part... Start Date: 12/14/23 Stop Date: [...] Care Nurse Name: Rupali Burgos RN Position: [facility] RN Member Role: Primary Care Nurse Name: Aba Linares DO Position: Reference Physician Member Role: PCP Address: Address: [address] [place] [address] Internal Medicine [place], [place] [address] Name: Tesha Kirkpatrick RN Position: [facility] RN Member Role: Primary Care Nurse Name: Karoline Rader RN Position: [facility] RN Member Role: Primary Care Nurse Name: Clay Najera RN Position: [facility] RN Supv Member Role: Primary Care Nurse Name: Vera Patricia RN Position: [facility] AMB Nurse Member Role: Primary Care Nurse Name: Genevieve Orozco RN Position: [facility] RN Member Role: Primary Care Nurse Care Team Related Persons Name: CIRO TORREZ Address: [address] [address] Name: FARNAZ HANNAH
--- OUTSIDE RECORDS SUMMARY | 2024-01-09 11:28 | XMS_ITS | Continuity of Care Document ---
Author Organization [facility] Raymond lalito Address [address] [place] [address] [facility] [address] [place] [address]- Care Team Providers Care Medical Reimbursement Specialist Name Role Phone Aba Linares DO Marlen Primary Care Physician Encounter [facility] [place] Date(s): 11/06/23 - 12/06/23 [facility] [address] [address] Allergies, Adverse Reactions, Alerts No Known Allergies Medications albuterol 90 mcg/inh inhalation aerosol 2 puffs, Inhalation, 4 times a day, Maintenance, 09/23/20 12:37:00 EDT Start Date: 09/23/20 Status: Ordered baclofen 10 mg oral tablet 10 mg, 1, tablet, By Mouth, 3 times a day, # 90 tablet, Refills 0, Tot. Refills 0, Maintenance, 05/26/22 15:47:00 EST, Route to Pharmacy Electronically, [facility]/pharmacy #[id number], Partial fill upon patient request if the [...] opioid drug. Start Date: 11/24/22 Status: Ordered Colace sodium 100 mg oral capsule 100 mg, 1, capsule, By Mouth, Daily, Refills 0, Maintenance, 10/12/23 15:14:00 EDT, Partial fill upon patient request if the prescription is for a schedule II opioid drug. Start Date: 10/12/23 Status: Ordered Eliquis Starter Pack 5 mg [...] 12:22:00 EDT Start Date: 09/23/20 Status: Ordered lidocaine [...] 11 Refills, Maintenance, 08/20/21 15:56:00 EDT, Suppository, [facility]/pharmacy #[id number], 180.3, cm, 08/12/21 7:56:00 EDT, [...] Refills, Maintenance, 09/17/21 16:24:00 EDT, REC Powder, [facility]/pharmacy #[id number], Partial fill upon patient request [...] Start Date: 08/12/21 Status: Ordered nystatin topical 385631 u/gm powder 1 application, Topically, 3 times a day, # 30 Gm, 0 Refills, Maintenance, 10/12/23 15:10:00 EDT, Powder, Partial fill upon patient request if the prescription is for a schedule II opioid drug. Start Date: 10/12/23 Status: Ordered pantoprazole 40 mg oral delayed release tablet = 40 mg, By Mouth, 2 times a day, 0 Refills, Maintenance, 09/09/20 7:49:00 EDT, EC Tablet Start Date: 09/09/20 Status: Ordered Please provide 24/7 RATE SETTER care and weekly VNA visits for medication management. Please provide 24/7 RATE SETTER care and weekly VNA visits for medication [...] 1 tablet = 500 mg, By Mouth, 2 times a day, 0 Refills, Maintenance, 07/05/23 14:13:00 EST, Partial fill upon patient request if the prescription is for a schedule II opioid drug. Start Date: 07/05/23 Status: Ordered Problem List Condition Confirmation Course Effective Dates Status Health St atus Informant Anemia 1 Confirmed Active Weakness Confirmed Active Atrial fibrillation Confirmed Active Hematuria Confirmed Active Spinal cord injury, cervical region Confirmed Active COPD (chronic obstructive pulmonary disease) Confirmed Active Constipation Confirmed Active Presence of intrathecal baclofen pump Confirmed Active Lower extremity edema Confirmed Active GERD (gastroesophageal reflux disease) Confirmed Active Obese class I Confirmed Active Quadriplegia Confirmed Active 1Hemoglobin 06/29/23-10 Patient Care team information Care Team Personnel Name: Danny Whittaker RN Position: [facility] ED RN W/OE and Tasks Member Role: Primary Care Nurse Name: Aba Linares DO Position: Reference Physician Member Role: PCP Address: Address: [address] [place] [address] [place] [address]- Name: Tesha Kirkpatrick RN Position: [facility] RN Member Role: Primary Care Nurse Name: Clay Najera RN Position: [facility] RN Supv Member Role: Primary Care Nurse Name: Vera Patricia RN Position: [facility] AMB Nurse Member Role: Primary Care Nurse Name: Genevieve Orozco RN Position: [facility] RN Member Role: Primary Care Nurse Care Team Related Persons Name: CIRO TORREZ Address: [address] [place] [address] Name: FARNAZ HANNAH
--- NOTE | 2024-01-09 11:38 | PC.NURSE ---
Addendum entered by Trixie Mahajan 01/09/24 16:54: Back documentation, at approx 08:20 am patient arrived with EMS and he was being bagged, had a pulse but not breathing at that time. Per ems, patient had 2 seizures once witnessed by nursing ( agency) and then one witnessed by EMS that lasted approx 45 seconds. No history of seizures. MD was present at bedside along with respiratory. MD did a sternal rub with no response noted. Patient was then intubated with a 7.5 e tube and 23 at the lip. OG was placed by RN without any complications. IV accessed by EMS in route and 1 liter of fluids were given. Another IV line was established by ultrasound in the left AC without complications. Propofol and Fentanyl were given through this left the AC. Original Note: 10mg of Etomidate given at 0840am and 50mg of NICOLE given at 0843 am. per respiratory , the size of the e tube is 7.5 and 23 at the lip line, bilateral breath sounds.
[2024-01-09] MEDS: Lactated Ringers 1,000 ML 100 ML IVCONT (11:52)
[2024-01-09] MEDS: Midodrine HCl 10 MG TABLET G-TUBE (12:14)
[2024-01-09] MEDS: levoFLOXacin/D5W 500 MG/100 ML PIGGYBACK 100 MG IV (12:14)
--- NOTE | 2024-01-09 12:58 | PHA.MEDREC ---
Addendum entered by Afshin Rodriguez 01/09/24 13:31: Received med list from patient's stay at [facility] from 12/30/23. Used list to update med rec with listed home meds that weren't in claim history. Original Note: Pharmacy Consult ? Medication Reconciliation Pharmacy has completed the medication reconciliation. Pt intubated at this time, used claim history and discharge note from 11/27/23 which matched most of the claims. Was unable to confirm if they filled the Clobetasol or Multivitamin.
[2024-01-09] MEDS: Albumin Human 25 % 50 ML 100 ML IV (14:07)
[2024-01-09 14:08] LABS: Basophils Percent Auto 0.2 % (0-2); Eosinophils Absolute Auto 0.1 X10*3/uL (0.0-0.4); Eosinophils Percent Auto 1.2 % (0-4); Hematocrit 26.5 % (42.0-52.0); Hemoglobin 8.4 g/dl (14.0-18.0); Imm Gran Abs Auto 0.05 X10*3/uL (0.00-0.03); Imm Gran Pct Auto 0.5 % (0.0-0.4); Lymphocytes Absolute Auto 0.9 X10*3/uL (1.2-4.9); Lymphocytes Percent Auto 9.3 % (20-40); MANUAL DIFF FLAG SCAN; Mean Corpuscular HGB Conc 31.7 g/dl (31.0-36.0); Mean Corpuscular Hemoglobin 27.1 pg (27.0-33.0); Mean Corpuscular Volume 85.5 fL (80.0-98.0); Monocytes Absolute Auto 0.4 X10*3/uL (0.1-1.2); Neutrophils Absolute Auto 8.1 x10*3/uL (2.0-8.3); Neutrophils Percent Auto 84.8 % (45-73); PLT CLUMP 1; Red Cell Distribution Width 18.4 % (11.0-16.0); SCAN SMEAR FLAG 1
[2024-01-09 14:18] LABS: Venous Blood Gas Refer to POC result
[2024-01-09 14:19] LABS: VBG HCO3 23 mmol/L (22-26); VBG pCO2 22 mmHg; VBG pH 7.63 (7.32-7.43); VBG pO2 217 mmHg
[2024-01-09] MEDS: Calcium Gluconate/NaCl,Iso-Osm 1 GM/50 ML PLAST..BAG IV (14:25)
[2024-01-09 14:27] LABS: Alanine Aminotransferase 7 U/L (0-40); Albumin Level 2.7 g/dL (3.5-5.0); Alkaline Phosphatase 60 U/L (39-117); Anion Gap 16 (12-20); Aspartate Amino Transferase 15 U/L (5-37); Bilirubin Total 0.2 mg/dL (0.0-1.0); Blood Urea Nitrogen 33 mg/dL (9-16); Calcium 8.7 mg/dL (8.4-10.2); Carbon Dioxide 19 mmol/L (22-29); Chloride 102 mmol/L (96-108); Creatinine Clr Calc Pharmacy 40.2; Estimated Glomerular Filt Rate 32; Glucose Random 94 mg/dL (60-115); Magnesium 1.7 mg/dL (1.6-2.6); Phosphorus 4.5 mg/dL (2.7-4.5); Potassium 4.4 mmol/L (3.3-5.1); Sodium 133 mmol/L (135-145); Total Protein 6.9 g/dL (6.5-8.0)
[2024-01-09] MEDS: vancomycin HCL Oral Solution 125 MG/5 ML SOLN.RECON PO (14:29)
[2024-01-09] MEDS: Chlorhexidine Gluc Oral Rinse 15 ML MOUTHWASH BUCCAL ×2 (14:29→20:21)
[2024-01-09] MEDS: levETIRAcetam in NaCl (iso-os) 1,000 MG/100 ML PIGGYBACK 400 MG IV ×3 (14:34→15:55)
[2024-01-09 14:35] LABS: Mean Platelet Volume 10.8 fL (9.4-12.4); Platelet Count 176 X10*3/uL (160-400); SLIDE REVIEW VERIFIED; White Blood Count 9.5 X10*3/uL (4.8-10.8)
[2024-01-09 14:49] LABS: TSH reflex Free T4 0.39 uIU/mL (0.32-4.0)
[2024-01-09] MEDS: propofoL 1,000 MG/100 ML VIAL 29.34 MG IVCONT ×2 (15:32→18:41)
[2024-01-09] MEDS: Midazolam HCl/NS 50 MG/50 ML PLAST..BAG IVCONT (16:41)
[2024-01-09 17:54] LABS: VBG Base Excess 3.1 mmol/L; VBG HCO3 24 mmol/L (22-26); VBG pCO2 25 mmHg; VBG pH 7.58 (7.32-7.43); VBG pO2 236 mmHg
[2024-01-09 17:56] LABS: Venous Blood Gas Refer to POC result
[2024-01-09 18:16] LABS: Ethanol < 10 mg/dL
[2024-01-09 18:38] LABS: Amphetamine Screen Urine Not Detected (Not Detect); Barbiturates, Urine Not Detected (Not Detect); Benzodiazepines Screen Urine POSITIVE (Not Detect); Buprenorphine Scr Not Detected (Not Detect); Cannabinoid Screen Urine Not Detected (Not Detect); Cocaine Screen Urine Not Detected (Not Detect); Fentanyl, urine POSITIVE (Not Detect); Methadone Screen, Urine Not Detected (Not Detect); Opiate Screen Urine Not Detected (Not Detect); Oxycodone Screen Urine Not Detected (Not Detect); Phencyclidine Screen Urine Not Detected (Not Detect)
[2024-01-09 18:50] LABS: Acetaminophen LAB < 3 mcg/mL (<30); Salicylate < 5.0 mg/dL (15-30)
--- NOTE | 2024-01-09 19:13 | HO.SKINPHOTO ---
Location: Bilateral Buttocks Category: Pressure Injury Stage: Unstagable
[2024-01-10] VITALS (36 sets, daily range): BP systolic 108–141; BP diastolic 45–75; PULSE 44–52; RESP 12–18; TEMP 34.7–36.6; O2SAT 93–99; BMI 30.3
--- NOTE | 2024-01-10 | EEG_ITS ---
This is a portable EEG performed in ICU. The patient is intubated and sedated. Sedation was partly stopped during the test. During initial part of EEG, background EEG rhythm was almost flat with rare low amplitude theta to delta range discharges. During later part of the tracing, similar, little bit more frequent discharges were noted with occasional right frontocentral sharp and slow wave. Cardiac lead revealed bradycardia. Photic stimulation and hyperventilation were not performed. IMPRESSION: Severe generalized slowing suggestive of bihemispheric dysfunction, which partly was due to sedation. During later part of the tracing when sedation was stopped, minor similar activity that was noted on previous EEG was still noted. MD LOVELY Hurtado/TODDL / [id number]
[2024-01-10] MEDS: Midazolam HCl/NS 50 MG/50 ML PLAST..BAG IVCONT (03:42)
[2024-01-10] MEDS: Chlorhexidine Gluc Oral Rinse 15 ML MOUTHWASH BUCCAL ×3 (03:42→21:42)
[2024-01-10] MEDS: propofoL 1,000 MG/100 ML VIAL 17.6 MG IVCONT (03:45)
[2024-01-10 05:22] LABS: VBG Base Excess 1.1 mmol/L; VBG HCO3 23 mmol/L (22-26); VBG pCO2 27 mmHg; VBG pH 7.53 (7.32-7.43); VBG pO2 67 mmHg
[2024-01-10 05:39] LABS: MANUAL DIFF FLAG NO
[2024-01-10 05:40] LABS: Basophils Percent Auto 0.5 % (0-2); Eosinophils Absolute Auto 0.2 X10*3/uL (0.0-0.4); Eosinophils Percent Auto 3.6 % (0-4); Hematocrit 23.4 % (42.0-52.0); Hemoglobin 7.6 g/dl (14.0-18.0); Imm Gran Abs Auto 0.03 X10*3/uL (0.00-0.03); Imm Gran Pct Auto 0.5 % (0.0-0.4); Lymphocytes Absolute Auto 1.1 X10*3/uL (1.2-4.9); Lymphocytes Percent Auto 17.6 % (20-40); Mean Corpuscular HGB Conc 32.5 g/dl (31.0-36.0); Mean Corpuscular Hemoglobin 27.4 pg (27.0-33.0); Mean Corpuscular Volume 84.5 fL (80.0-98.0); Mean Platelet Volume 10.1 fL (9.4-12.4); Monocytes Absolute Auto 0.4 X10*3/uL (0.1-1.2); Monocytes Percent Auto 6.6 % (2-11); Neutrophils Absolute Auto 4.3 x10*3/uL (2.0-8.3); Neutrophils Percent Auto 71.2 % (45-73); Platelet Count 196 X10*3/uL (160-400); Red Blood Count 2.77 X10*6/uL (4.60-5.80); Red Cell Distribution Width 18.4 % (11.0-16.0); White Blood Count 6.1 X10*3/uL (4.8-10.8)
[2024-01-10] MEDS: Pantoprazole Sodium 40 MG in 0.9 % Sodium Chloride 100 ML 400 MG IV (05:41)
[2024-01-10 05:55] LABS: Venous Blood Gas Refer to POC result
[2024-01-10 06:11] LABS: Albumin Level 2.8 g/dL (3.5-5.0); Anion Gap 17 (12-20); Blood Urea Nitrogen 34 mg/dL (9-16); Calcium 8.7 mg/dL (8.4-10.2); Carbon Dioxide 20 mmol/L (22-29); Chloride 103 mmol/L (96-108); Creatinine Clr Calc Pharmacy 45.3; Estimated Glomerular Filt Rate 36; Glucose Random 85 mg/dL (60-115); Magnesium 1.6 mg/dL (1.6-2.6); Phosphorus 3.6 mg/dL (2.7-4.5); Potassium 3.2 mmol/L (3.3-5.1); Sodium 137 mmol/L (135-145)
[2024-01-10] MEDS: Potassium Chloride Packet 20 MEQ PACKET 40 MEQ PO (07:40)
[2024-01-10] MEDS: Magnesium Sulfate/D5W 1 GM/100 ML PIGGYBACK IV (07:49)
[2024-01-10] MEDS: Albumin Human 25 % 100 ML IV ×2 (07:50→09:17)
[2024-01-10] MEDS: levETIRAcetam in NaCl (iso-os) 500 MG/100 ML PIGGYBACK 400 MG IV ×2 (08:02→12:58)
--- NOTE | 2024-01-10 08:15 | P.PNCC_ITS ---
Subjective Subjective Date of Service: 01/10/24 Interval History: no significant overnight events; per neurology, EEG read as frequent intermittent eleptiform activity Critical Care Time (minutes): 60 Physical Exam 2 Vital Signs: Vital Signs: Last Vital Signs Temp 97.7 F 01/10/24 03:48 Pulse 46 L 01/10/24 07:00 Resp 15 01/10/24 07:00 BP 113/55 L 01/10/24 07:00 Pulse Ox 98 01/10/24 07:00 O2 Del Method Mechanical Ventil ation 01/10/24 07:00 O2 Flow Rate 25 01/09/24 18:00 FiO2 21 01/10/24 07:43 BMI result Body Mass Index 30.3 Const: Other: intubated, sedated HEENT: Head: Yes normal to inspection, Yes normocephalic and Yes atraumatic Eyes: General: appearance normal, both eyes and all related structures Neck: Neck: Yes normal visual inspection, Yes full ROM, Yes no meningeal signs, Yes trachea midline and Yes supple Chest: Chest palpation & inspection: normal inspection of the chest Resp: Other: no appreciable rales, rhonchi, wheezing Effort & Inspection: normal respiratory effort Cardio: Rate: bradycardic Rhythm: regular rhythm GI: Inspection: Yes normal to inspection, No Abdominal wall edema and No distended Palpation (GI): Soft to palpation, not firm, nontender, no guarding and not rigid Skin: General skin exam: no rashes or lesions noted Neuro: Other: intubated, sedated; no appreciable rigidity, clonus General: no meningeal signs Extrem: Other: appreciable non-pitting edema to bilateral shins General: Yes normal to inspection, Yes full ROM and Yes capillary refill normal Psych: Other: unable to assess Objective Data Labs 01/10/24 05:18 01/10/24 05:18 Labs: Laboratory Results - last 24 hr 01/09/24 01/09/24 01/09/24 08:50 09:00 09:09 WBC 7.2 RBC 2.72 L D Hgb 7.5 L D Hct 23.2 L D MCV 85.3 MCH 27.6 MCHC 32.3 RDW 18.5 H Plt Count 187 D MPV 9.8 Immature Gran % (Auto) 0.4 Neut % (Auto) 84.7 H Lymph % (Auto) 9.2 L [place] % (Auto) 3.9 Eos % (Auto) 1.5 Baso % (Auto) 0.3 Lymph # (Auto) 0.7 L [place] # (Auto) 0.3 Eos # (Auto) 0.1 Baso # (Auto) 0.0 Abs Immat Gran (auto) 0.03 Absolute Neuts (auto) 6.1 Absolute Nucleated RBC 0.000 Nucleated RBC % (auto) 0.0 Smear Tech's Comments PT 13.4 H D INR 1.1 APTT 26.9 VBG pH 7.36 VBG pCO2 45 VBG pO2 92 VBG HCO3 25 VBG O2 Saturation TNP VBG Base Excess 0.3 Sodium 135 Potassium 4.1 Chloride 99 Carbon Dioxide 24 Anion Gap 16 BUN 37 H Creatinine 2.20 H Estim Creat Clear Calc 37.3 Estimated GFR 30 Random Glucose 115 Lactic Acid 1.4 Calcium 8.3 L D Phosphorus Magnesium 1.6 Total Bilirubin 0.2 Direct Bilirubin < 0.2 AST 16 ALT 8 Alkaline Phosphatase 62 Ammonia 29 Troponin I High Sens 6.6 B-Natriuretic Peptide 361 H Total Protein 6.8 Albumin 2.9 L Procalcitonin 0.13 TSH 1.59 Urine Color Urine Appearance Urine pH Ur Specific [place] Urine Protein Urine Glucose (UA) Urine Ketones Urine Blood Urine Nitrite Ur Leukocyte Esterase Urine RBC Urine WBC Ur Squamous Epith Cells Urine Bacteria Hyaline Casts Salicylates Urine Opiates Screen Ur Buprenorphine Scrn Ur Oxycodone Screen Urine Methadone Screen Urine Fentanyl Screen Acetaminophen Ur Barbiturates Screen Ur Phencyclidine Scrn Ur Amphetamines Screen U Benzodiazepines Scrn Urine Cocaine Screen U Marijuana (THC) Screen Ethyl Alcohol < 10 Influenza Type A (PCR) NEGATIVE Influenza Type B (PCR) NEGATIVE RSV RNA Qual (PCR) NEGATIVE SARS-CoV-2 RNA (RT-PCR) NEGATIVE Blood Type Antibody Screen 01/09/24 01/09/24 01/09/24 10:03 10:08 13:58 WBC 9.5 RBC 3.10 L Hgb 8.4 L Hct 26.5 L MCV 85.5 MCH 27.1 MCHC 31.7 RDW 18.4 H Plt Count 176 MPV 10.8 Immature Gran % (Auto) 0.5 H Neut % (Auto) 84.8 H Lymph % (Auto) 9.3 L [place] % (Auto) 4.0 Eos % (Auto) 1.2 Baso % (Auto) 0.2 Lymph # (Auto) 0.9 L [place] # (Auto) 0.4 Eos # (Auto) 0.1 Baso # (Auto) 0.0 Abs Immat Gran (auto) 0.05 H Absolute Neuts (auto) 8.1 Absolute Nucleated RBC 0.000 Nucleated RBC % (auto) 0.0 Smear Tech's Comments VERIFIED PT INR APTT VBG pH VBG pCO2 VBG pO2 VBG HCO3 VBG O2 Saturation VBG Base Excess Sodium 133 L Potassium 4.4 Chloride 102 Carbon Dioxide 19 L Anion Gap 16 BUN 33 H Creatinine 2.04 H Estim Creat Clear Calc 40.2 Estimated GFR 32 Random Glucose 94 Lactic Acid Calcium 8.7 Phosphorus 4.5 Magnesium 1.7 Total Bilirubin 0.2 Direct Bilirubin AST 15 ALT 7 Alkaline Phosphatase 60 Ammonia Troponin I High Sens B-Natriuretic Peptide Total Protein 6.9 Albumin 2.7 L Procalcitonin TSH 0.39 Urine Color Yellow Urine Appearance Turbid Urine pH 6.5 Ur Specific [place] 1.010 Urine Protein 300 (3+) H Urine Glucose (UA) Negative Urine Ketones Negative Urine Blood Large (3+) H Urine Nitrite Negative Ur Leukocyte Esterase Large (3+) H Urine RBC >20 H Urine WBC >50 H Ur Squamous Epith Cells 11-20 Urine Bacteria 4+ Hyaline Casts >20 Salicylates Urine Opiates Screen Not Detected Ur Buprenorphine Scrn Not Detected Ur Oxycodone Screen Not Detected Urine Methadone Screen Not Detected Urine Fentanyl Screen Not Detected Acetaminophen Ur Barbiturates Screen Not Detected Ur Phencyclidine Scrn Not Detected Ur Amphetamines Screen Not Detected U Benzodiazepines Scrn Not Detected Urine Cocaine Screen Not Detected U Marijuana (THC) Screen Not Detected Ethyl Alcohol Influenza Type A (PCR) Influenza Type B (PCR) RSV RNA Qual (PCR) SARS-CoV-2 RNA (RT-PCR) Blood Type A Positive Antibody Screen NEGATIVE 01/09/24 01/09/24 01/09/24 14:09 17:40 17:50 WBC RBC Hgb Hct MCV MCH MCHC RDW Plt Count MPV Immature Gran % (Auto) Neut % (Auto) Lymph % (Auto) [place] % (Auto) Eos % (Auto) Baso % (Auto) Lymph # (Auto) [place] # (Auto) Eos # (Auto) Baso # (Auto) Abs Immat Gran (auto) Absolute Neuts (auto) Absolute Nucleated RBC Nucleated RBC % (auto) Smear Tech's Comments PT INR APTT VBG pH 7.63 H* 7.58 H VBG pCO2 22 25 VBG pO2 217 236 VBG HCO3 23 24 VBG O2 Saturation 99.0 100.0 VBG Base Excess 3.0 3.1 Sodium Potassium Chloride Carbon Dioxide Anion Gap BUN Creatinine Estim Creat Clear Calc Estimated GFR Random Glucose Lactic Acid Calcium Phosphorus Magnesium Total Bilirubin Direct Bilirubin AST ALT Alkaline Phosphatase Ammonia Troponin I High Sens B-Natriuretic Peptide Total Protein Albumin Procalcitonin TSH Urine Color Urine Appearance Urine pH Ur Specific [place] Urine Protein Urine Glucose (UA) Urine Ketones Urine Blood Urine Nitrite Ur Leukocyte Esterase Urine RBC Urine WBC Ur Squamous Epith Cells Urine Bacteria Hyaline Casts Salicylates < 5.0 L Urine Opiates Screen Ur Buprenorphine Scrn Ur Oxycodone Screen Urine Methadone Screen Urine Fentanyl Screen Acetaminophen < 3 Ur Barbiturates Screen Ur Phencyclidine Scrn Ur Amphetamines Screen U Benzodiazepines Scrn Urine Cocaine Screen U Marijuana (THC) Screen Ethyl Alcohol < 10 Influenza Type A (PCR) Influenza Type B (PCR) RSV RNA Qual (PCR) SARS-CoV-2 RNA (RT-PCR) Blood Type Antibody Screen 01/09/24 01/10/24 01/10/24 18:16 05:13 05:18 WBC 6.1 RBC 2.77 L Hgb 7.6 L Hct 23.4 L MCV 84.5 MCH 27.4 MCHC 32.5 RDW 18.4 H Plt Count 196 MPV 10.1 Immature Gran % (Auto) 0.5 H Neut % (Auto) 71.2 Lymph % (Auto) 17.6 L [place] % (Auto) 6.6 Eos % (Auto) 3.6 Baso % (Auto) 0.5 Lymph # (Auto) 1.1 L [place] # (Auto) 0.4 Eos # (Auto) 0.2 Baso # (Auto) 0.0 Abs Immat Gran (auto) 0.03 Absolute Neuts (auto) 4.3 Absolute Nucleated RBC 0.000 Nucleated RBC % (auto) 0.0 Smear Tech's Comments PT INR APTT VBG pH 7.53 H VBG pCO2 27 VBG pO2 67 VBG HCO3 23 VBG O2 Saturation 96.0 VBG Base Excess 1.1 Sodium 137 Potassium 3.2 L D Chloride 103 Carbon Dioxide 20 L Anion Gap 17 BUN 34 H Creatinine 1.84 H Estim Creat Clear Calc 45.3 Estimated GFR 36 Random Glucose 85 Lactic Acid Calcium 8.7 Phosphorus 3.6 Magnesium 1.6 Total Bilirubin Direct Bilirubin AST ALT Alkaline Phosphatase Ammonia Troponin I High Sens B-Natriuretic Peptide Total Protein Albumin 2.8 L Procalcitonin TSH Urine Color Urine Appearance Urine pH Ur Specific [place] Urine Protein Urine Glucose (UA) Urine Ketones Urine Blood Urine Nitrite Ur Leukocyte Esterase Urine RBC Urine WBC Ur Squamous Epith Cells Urine Bacteria Hyaline Casts Salicylates Urine Opiates Screen Not Detected Ur Buprenorphine Scrn Not Detected Ur Oxycodone Screen Not Detected Urine Methadone Screen Not Detected Urine Fentanyl Screen POSITIVE H Acetaminophen Ur Barbiturates Screen Not Detected Ur Phencyclidine Scrn Not Detected Ur Amphetamines Screen Not Detected U Benzodiazepines Scrn POSITIVE H Urine Cocaine Screen Not Detected U Marijuana (THC) Screen Not Detected Ethyl Alcohol Influenza Type A (PCR) Influenza Type B (PCR) RSV RNA Qual (PCR) SARS-CoV-2 RNA (RT-PCR) Blood Type Antibody Screen Progress Note: A&P Assessment and plan (1) Seizure: Status: Acute (2) Pyelonephritis: Status: Acute (3) Paraplegia: Status: Acute Plan Patient is a 73 Y M with traumatic spinal cord injury c/b paraplegia, neurogenic bladder w/ chronic suprapubic catheter, c/b pseudomonas urinary tract infection, hypertension, CAD, atrial fibrillation on apixaban, and LATANYA on CPAP, presenting to emergency department on 01/08 with question seizure; per EMS, VNA noted prior prolonged episodes of shaking and loss of consciousness for upwards of 40 minutes, developed episode of shaking w/ loss of consciousness for greater than 20 minutes; on arrival to emergency department, patient intubated; broad work-up initiated; laboratories suggestive of acute renal insufficiency; CT H, C, A/P demonstrating possible pyelonephritis; otherwise, work-up grossly unrevealing N: c/f seizure; EEG 01/08 not on propofol gtt demonstrating frequent epileptiform activity; CT H unrevealing; appreciate neurology recommendations; to maintain propofol gtt, midazolam gtt, and levetiracetam CV: no acute issues R: intubated in setting of encephalopathy GI: NPO : acute renal insufficiency; to monitor renal indices H: anemia, to hold home apixaban ID: c/f pyelonephritis; prior UCx c/f possible ESBL, empiric meropenem E: to monitor hypo-/hyper-glycemia P: no acute issues Quality Stroke Does the patient have a stroke diagnosis?: No VTE Prior VTE?: No VTE Risk Level:: Medical - moderate - high VTE Device Contraindication: N/A - Device Ordered VTE Drug Contraindication: N/A - Med Ordered
[2024-01-10] MEDS: propofoL 1,000 MG/100 ML VIAL 29.34 MG IVCONT ×5 (08:44→21:42)
[2024-01-10] MEDS: Enoxaparin Sodium 40 MG/0.4 ML SYRINGE SUBCUT (09:17)
--- NOTE | 2024-01-10 09:29 | MHC.CM.PN ---
Addendum entered by Bruna Jane 01/10/24 09:34: Per pts Argenis, his [employer] child support case officer is Consuelo and she can be reached at [phone] if we have any questions for her pertaining to his care/services. Original Note: Pt in the ICU, he remains intubated. This CM contacted pts /HCP Argenis to complete CM intake assessment. Per Argenis, pt lives at home with her and has 28/11 [employer] services through [employer]. Pt is fully dependent on care and is wheelchair/bedbound, and uses a lyft for transfers. DCP will be for pt to return home with resumption of previous AFTER SCHOOL TUTOR services. Pts can transport him home with some prior notice, they have a van and will need to arrange having a AFTER SCHOOL TUTOR available for the transport, vs BLS transport. PCP: Dr. Aba Linares
--- NOTE | 2024-01-10 09:40 | MHC.CLN ---
PT IS INTUBATED ADN SEDATED CURRENTLY NPO IF TF NEEDED; RECOMMEND PROMOTE AT MAX GOAL RATE 50ML/HR WITH 30ML PROSOURCE BID TO PROVIDE 1320KCALS (2095KCALS TOTAL; 24KCALS/KG), 105G TOTAL PROTEIN (1.2G/KG), 1007ML FREE WATER FROM FORMULA MONITOR TOLERANCE AND LYTES SEE ALSO FULL CLINICAL NUTRITION ASSESSMENT
--- NOTE | 2024-01-10 09:47 | P.CNNE_ITS ---
History of Present Illness Data of Consult Service Date: 01/10/24 Primary Care Provider: Aba Linares MD [facility] Reason for consult: seizure disorder 73 Y M with traumatic spinal cord injury c/b paraplegia, neurogenic bladder w/ chronic suprapubic catheter, c/b pseudomonas urinary tract infection, hypertension, CAD, atrial fibrillation on apixaban, and LATANYA on CPAP, presenting to emergency department on 01/08 with question seizure. He was noted to be in prolonged stage of shaking. EEG was done yesterday that revealed frequent epileptic discharges. He was loaded with levetiracetam. He was also sedated with propofol and Versed. Review of Systems 2 Review of Systems: Could not be done with [facility] Past Medical History Medical History Chronic hypercapnic respiratory failure Restrictive lung mechanics due to neuromuscular disease Paraplegia LATANYA on CPAP CAD (coronary artery disease) Paroxysmal atrial fibrillation HTN (hypertension) Family History Family History Father Diabetes HTN (hypertension) CVD (cardiovascular disease) Mother CVD (cardiovascular disease) Diabetes HTN (hypertension) Brother CVD (cardiovascular disease) Diabetes HTN (hypertension) Surgical History Surgical History History of carpal tunnel release Hx of colonoscopy Hx of rotator cuff surgery History of hip surgery Social History Social History Household Members: Spouse Housing: House Do you presently have visiting nurse or other home services: Yes (visiting nurses, cnas daily) Alcohol intake: former Comment: caregiver at bedside Patient Tobacco Use Status: Former Tobacco user Tobacco use type: Cigarette Years Smoked: 20 years Advance Directives Date on File: 06/08/23 service: No Meds Allergies Allergy/AdvReac Type Severity Reaction Status Date / Time No Known Allergies Allergy Verified 01/09/24 08:53 [No Known Allergies*] Active Medications: Current Medications Chlorhexidine Gluconate (Chlorhexidine Gluc Oral Rinse 15 Ml Mouthwash) 15 ml BUCCAL Q8H [facility] Last Admin: 01/10/24 03:42 Dose: 15 ml Enoxaparin Sodium (Enoxaparin Sodium 40 Mg/0.4 Ml Syringe) 40 mg SUBCUT Q24H [facility] Last Admin: 01/10/24 09:17 Dose: 40 mg Hydromorphone HCl (Hydromorphone Hcl 1 Mg/Ml Syringe) 1 mg IVPUSH Q2H PRN; Protocol PRN Reason: Pain, Moderate(Pain Scale 4-6) Propofol (Diprivan) 1,000 mg in 100 mls @ 0 mls/hr IVCONT .Q0M [facility]; Protocol Last Admin: 01/10/24 08:44 Dose: 50 mcg/kg/min, 29.34 mls/hr Pantoprazole Sodium 40 mg/ (Sodium Chloride) 110 mls @ 400 mls/hr IV DAILY@0630 [facility] Last Infusion: 01/10/24 06:11 Dose: Infused Meropenem 1 gm/ Sodium (Chloride) 100 mls @ 200 mls/hr IV Q12H [facility] Last Infusion: 01/10/24 03:22 Dose: Infused Levetiracetam (Keppra) 500 mg in 100 mls @ 400 mls/hr IV DAILY [facility] Last Infusion: 01/10/24 09:18 Dose: Infused Midazolam HCl (Versed) 50 mg in 50 mls @ 2 mls/hr IVCONT .Q24H [facility] Last Admin: 01/10/24 03:42 Dose: 2 mg/hr, 2 mls/hr Albumin Human (Kedbumin 25 %) 100 mls @ 100 mls/hr IV Q1H [facility] Stop: 01/10/24 09:59 Last Admin: 01/10/24 09:17 Dose: 100 mls/hr Lorazepam (Lorazepam 2 Mg/Ml Vial) 4 mg IVPUSH ONCE PRN PRN Reason: Seizure Naloxone HCl (Naloxone Hcl 0.4 Mg/Ml Vial) 0.2 mg IVPUSH Q2M PRN PRN Reason: Excessive sedation or RR < 8 Home Medications ?Medication ?Instructions ?Recorded ?Confirmed ?Last Taken ?Type CPAP (CPAP Machine/Device) 07/19/21 11/14/23 11/13/23 History apixaban 5 mg tablet (Eliquis) 5 mg PO BID 07/19/21 01/09/24 11/13/23 History ascorbic acid (vitamin C) 250 mg 250 mg PO BID 07/19/21 01/09/24 11/13/23 History tablet pantoprazole 40 mg tablet,delayed 40 mg PO BID 07/19/21 01/09/24 11/13/23 History release gabapentin 300 mg capsule 300 mg PO TID 10/15/21 01/09/24 11/13/23 History methenamine hippurate 1 gram tablet 1 g PO BID 01/27/22 01/09/24 11/13/23 History docusate sodium 100 mg capsule 100 mg PO BID PRN constipation 06/08/23 01/09/24 11/13/23 History escitalopram oxalate 10 mg tablet 10 mg PO DAILY 06/08/23 01/09/24 11/13/23 History multivitamin 1 tab PO DAILY 06/08/23 01/09/24 11/13/23 History baclofen 10 mg tablet 10 mg PO TID PRN Muscle Spasm 07/03/23 01/09/24 11/13/23 History acetaminophen 325 mg tablet 650 mg PO Q6H PRN Mild Pain (Scale 01/09/24 01/09/24 Unknown History Score 1-4) aluminum-magnesium hydroxide 200 5 ml PO Q4H PRN Dyspepsia 01/09/24 01/09/24 Unknown History mg-200 mg/5 mL oral suspension clobetasol 0.05 % topical cream 1 appl topical BID 01/09/24 01/09/24 Unknown History midodrine 5 mg tablet 5 mg PO BID@0900,1500 01/09/24 01/09/24 Unknown History nystatin 100,000 unit/gram topical 1 appl topical TID 01/09/24 01/09/24 Unknown History powder psyllium husk 0.4 gram capsule 2 g PO Q6H PRN Constipation 01/09/24 01/09/24 Unknown History simethicone 80 mg chewable tablet 80 mg PO TID 01/09/24 01/09/24 Unknown History vancomycin 125 mg capsule 125 mg PO QID 01/09/24 01/09/24 Unknown History Physical Exam 2 Vital Signs: Vital Signs: Last Vital Signs Temp 97.1 F 01/10/24 08:00 Pulse 48 L 01/10/24 09:00 Resp 15 01/10/24 09:00 BP 121/56 L 01/10/24 09:00 Pulse Ox 98 01/10/24 09:00 O2 Del Method Mechanical Ventil ation 01/10/24 09:00 O2 Flow Rate 25 01/09/24 18:00 FiO2 21 01/10/24 09:00 BMI result Body Mass Index 30.3 Neuro: Other: Exam was limited because of heavy sedation. Propofol was stopped but I did not notice any abnormal movements. Eyes were midline. There was no obvious facial asymmetry. Reflexes were absent. Results Labs 01/10/24 05:18 01/10/24 05:18 Labs: Short CBC 01/09/24 01/10/24 Range/Units 13:58 05:18 WBC 9.5 6.1 (4.8-10.8) X10*3/uL Hgb 8.4 L 7.6 L (14.0-18.0) g/dl Hct 26.5 L 23.4 L (42.0-52.0) % Plt Count 176 196 (160-400) X10*3/uL BMP 01/09/24 01/10/24 13:58 05:18 Sodium 133 L 137 Potassium 4.4 3.2 L D Chloride 102 103 Carbon Dioxide 19 L 20 L BUN 33 H 34 H Creatinine 2.04 H 1.84 H Calcium 8.7 8.7 Liver Function 01/09/24 01/10/24 Range/Units 13:58 05:18 Total Bilirubin 0.2 (0.0-1.0) mg/dL AST 15 (5-37) U/L ALT 7 (0-40) U/L Alkaline Phosphatase 60 (39-117) U/L Albumin 2.7 L 2.8 L (3.5-5.0) g/dL Urine 01/09/24 Range/Units 10:03 Urine Color Yellow Urine Appearance Turbid Urine pH 6.5 (5.0-9.0) Ur Specific [place] 1.010 (1.005-1.025) Urine Protein 300 (3+) H (Neg-Trace) mg/dL Urine Glucose (UA) Negative (Negative) mg/dL Assessment and Plan (1) Status epilepticus: Status: Acute 73 years old man with new onset of status epilepticus. Exact etiology was unclear. He was not febrile. My recommendation is to obtain another EEG today. If that is better than yesterday, I recommend tapering of IV sedation. Levetiracetam should continue with a dose of at least 1000 mg twice a day. Once extubated, an MRI of brain with and without contrast is recommended. Procedures Date of Service Date of Service: 01/10/24
--- NOTE | 2024-01-10 13:29 | MHC.CM.PN ---
CM spoke w/Consuelo, pt's RN CM through [employer]. She informs CM of the followin. Pt was flushing suprapubic cath 3x daily: afternoon flush w/acetic acid, am and pm w/NS. 2. Pt's spouse DOES NOT participate in ANY care needs including ADL's - she will only assist by transporting him to medical appointments using their w/c van. Pt's 28/11 BANK [employer] cannot assist w/IV infusion but are able to perform daily buttock dressing changes. Pt has daily suprapubic cath changes (due 01/11). If pt needs STR, [employer] will negotiate payment w/facility if required. Above information relayed to ICU care team. CM to follow
--- NOTE | 2024-01-10 14:16 | P.CDIM_ITS ---
PROVIDER RESPONSE TEXT: To clarify, the appropriate diagnosis supported by the clinical indicators: Toxic metabolic QUERY TEXT: PHYSICIAN'S DOCUMENTATION REQUEST Date of Query: 01/10/2024 01:22 PM EDT Patient Name: Eran Guerrero Admit Date: 01/09/2024 Dear Ashley Hancock MD, A review of the medical record indicates additional documentation may be needed. Please review below and update the documentation accordingly. Clinical Indicators: Per Critical Care H&P 01/09/24: loss of consciousness at home in ED, unresponsive, groan to painful stimuli, acute alteration in mental status Per Critical Care Progress Note 01/10/24: intubated in setting of encephalopathy Based on the above, please further specify, in the Progress Notes, the known or suspected type of the documented encephalopathy: Metabolic Toxic Toxic metabolic Anoxic Hepatic (reported as hepatic failure and needs further specificity as to acute, subacute, or chronic) Due to a specified condition (such as UTI, hyponatremia, CVA, etc.) Other (explain) Clinically unable to determine (explain) Thank you, Doris Bobby RN Use of terms such as suspected, likely, concern for, or probable (associated with a specific diagnosi s that is being evaluated, monitored, or treated as if it exists) are acceptable and can be coded in the inpatient se tting, when documented at the time of discharge. Please use your independent medical judgment in providing your response. THIS QUERY IS PART OF THE PERMANENT MEDICAL RECORD
--- NOTE | 2024-01-10 14:16 | P.CDIM_ITS ---
PROVIDER RESPONSE TEXT: To clarify, the appropriate diagnosis supported by the clinical indicators: Other (explain): acute on chronic anemia QUERY TEXT: PHYSICIAN'S DOCUMENTATION REQUEST Date of Query: 01/10/2024 01:14 PM EDT Patient Name: Eran Guerrero Admit Date: 01/09/2024 Dear Ashley Hancock MD, A review of the medical record indicates additional documentation may be needed. Please review below and update the documentation accordingly. Clinical Indicators: H&H on 01/09/24: 8.4/26.4 H&H on 01/10/24: 7.6/23.4 Patient is on Apixaban for atrial fibrillation Per Critical Care H&P 01/09/24: anemia; to hold home Apixaban Based on the above, could you clarify which of the following is the most likely type of anemia you ar e evaluating, treating, and/or monitoring? Acute blood loss anemia Acute blood loss anemia with baseline chronic anemia (specify type) Anemia of chronic disease Anemia due to adverse effect of anticoagulant Other (explain) Clinically unable to determine (explain) Thank you, Doris Bobby RN Use of terms such as suspected, likely, concern for, or probable (associated with a specific diagnosi s that is being evaluated, monitored, or treated as if it exists) are acceptable and can be coded in the inpatient se tting, when documented at the time of discharge. Please use your independent medical judgment in providing your response. THIS QUERY IS PART OF THE PERMANENT MEDICAL RECORD
--- NOTE | 2024-01-10 14:16 | P.CDIM_ITS ---
PROVIDER RESPONSE TEXT: To clarify, the appropriate diagnosis supported by the clinical indicators: Acute kidney injury (non-traumatic) QUERY TEXT: PHYSICIAN'S DOCUMENTATION REQUEST Date of Query: 01/10/2024 01:11 PM EDT Patient Name: Eran Guerrero Admit Date: 01/09/2024 Dear Ashley Hancock MD, A review of the medical record indicates additional documentation may be needed. Please review below and update the documentation accordingly. Clinical Indicators: Per Critical Care Progress Note 01/10/24: Acute renal insufficiency BUN 34/Creatinine 1.84 laboratories suggestive of acute renal insufficiency Please clarify which of the following accurately represents the patient's renal status: Acute renal failure Acute renal failure with suspected ATN Acute renal failure with other pathology (medullary, papillary, or cortical necrosis) Acute renal failure (with type, appropriate) on Chronic Kidney Disease (CKD) Acute kidney injury (non-traumatic) CKD, please provide stage Other (explain) Clinically unable to determine (explain) Thank you, Doris Bobby RN Use of terms such as suspected, likely, concern for, or probable (associated with a specific diagnosi s that is being evaluated, monitored, or treated as if it exists) are acceptable and can be coded in the inpatient se tting, when documented at the time of discharge. Please use your independent medical judgment in providing your response. THIS QUERY IS PART OF THE PERMANENT MEDICAL RECORD
--- NOTE | 2024-01-10 16:27 | HO.WOUND ---
Wound Consult: Initial 73yr old? male admitted to [facility] [place] on 01/09/24 - See progress notes and H&P for detailed history.? Wound consult placed for Sacral Wound POA.? Patient is admitted to the ICU unit for care and remains intubated.? Wound details obtained from chart review, in preson direct care team discussion and photo review. Sacrococcygeal (Sacrum, coccyx and buttock) Etiology: ?Unstageable Pressure Injury ?Present on Admission Measurements: unknown at this time photo review Wound Bed: marbled wound bed with areas of full thickness tissue loss, red moist tissue, yellow moist slough Drainage / Odor: appears yellow faust Edges: ? irregular Emely wound: ?Perirectal area noted for suspected MASD Goals of Treatment: ? Off Load Pressure and Triad for autolytic debridement and moist wound healing and foam dressing to protect from friction and aid in off loading pressure Pressure Injury measures currently in place, Isotour LINO - specialty mattress in use, wedges for off loading, Q 2 hrs turns, heel protector boots, barrier cream in place and nutrition following. Recommendations: 1. Turn and Reposition every 2 hours and as needed for patient comfort.? Use pillows or wedges to support off loading positions. 2. Off Load all bony prominences with use of pillows and heel boots if needed.? Apply Preventative foams where needed. ? 3. Monitor for incontinence and moisture control, use barrier creams when needed for prevention and treatment. 4. Provide adequate and supplemental nutrition.? Nutrition following. 5. Continue low air loss mattress. 6. When applicable maintain blood glucose levels per Providers order. 7. Sacrum - Off Load Pressure? - Cleanse with PH balance spray or wipes, pat dry. ?Apply thin layer of Triad to wound bed. Do not remove all of paste between applications as this may cause further skin damage.? Cover with foam dressing to aid in off loading and protection from friction. Change every 3 days and PRN. Re-consult wound care Nurse for wound deterioration or wound changes.
[2024-01-11] VITALS (39 sets, daily range): BP systolic 94–150; BP diastolic 42–87; PULSE 47–68; RESP 12–20; TEMP 34–36.8; O2SAT 94–100; BMI 29.4
[2024-01-11] MEDS: propofoL 1,000 MG/100 ML VIAL 29.34 MG IVCONT ×8 (00:12→21:48)
[2024-01-11] MEDS: Chlorhexidine Gluc Oral Rinse 15 ML MOUTHWASH BUCCAL ×3 (03:34→19:32)
[2024-01-11] MEDS: Midazolam HCl/NS 50 MG/50 ML PLAST..BAG IVCONT (03:34)
[2024-01-11 05:19] LABS: VBG HCO3 21 mmol/L (22-26); VBG pCO2 28 mmHg; VBG pH 7.48 (7.32-7.43); VBG pO2 66 mmHg
[2024-01-11 05:29] LABS: MANUAL DIFF FLAG NO
[2024-01-11 05:30] LABS: Basophils Percent Auto 0.4 % (0-2); Eosinophils Absolute Auto 0.2 X10*3/uL (0.0-0.4); Eosinophils Percent Auto 3.6 % (0-4); Hematocrit 24.6 % (42.0-52.0); Hemoglobin 7.9 g/dl (14.0-18.0); Imm Gran Abs Auto 0.02 X10*3/uL (0.00-0.03); Imm Gran Pct Auto 0.4 % (0.0-0.4); Lymphocytes Absolute Auto 0.8 X10*3/uL (1.2-4.9); Lymphocytes Percent Auto 16.5 % (20-40); Mean Corpuscular HGB Conc 32.1 g/dl (31.0-36.0); Mean Corpuscular Hemoglobin 27.2 pg (27.0-33.0); Mean Corpuscular Volume 84.8 fL (80.0-98.0); Monocytes Absolute Auto 0.3 X10*3/uL (0.1-1.2); Monocytes Percent Auto 6.1 % (2-11); Neutrophils Absolute Auto 3.4 x10*3/uL (2.0-8.3); Platelet Count 187 X10*3/uL (160-400); Red Cell Distribution Width 18.6 % (11.0-16.0); White Blood Count 4.7 X10*3/uL (4.8-10.8)
[2024-01-11] MEDS: Pantoprazole Sodium 40 MG in 0.9 % Sodium Chloride 100 ML 400 MG IV (05:32)
[2024-01-11 05:38] LABS: Venous Blood Gas Refer to POC result
[2024-01-11 05:48] LABS: Albumin Level 3.1 g/dL (3.5-5.0); Anion Gap 17 (12-20); Blood Urea Nitrogen 29 mg/dL (9-16); Calcium 8.8 mg/dL (8.4-10.2); Carbon Dioxide 20 mmol/L (22-29); Chloride 106 mmol/L (96-108); Estimated Glomerular Filt Rate 38; Glucose Random 79 mg/dL (60-115); Magnesium 1.7 mg/dL (1.6-2.6); Phosphorus 4.4 mg/dL (2.7-4.5); Potassium 3.3 mmol/L (3.3-5.1); Sodium 140 mmol/L (135-145)
[2024-01-11] MEDS: Potassium Chloride Packet 20 MEQ PACKET 40 MEQ PO (06:06)
--- NOTE | 2024-01-11 08:24 | P.PNCC_ITS ---
Subjective Subjective Date of Service: 01/11/24 Interval History: no significant overnight events Critical Care Time (minutes): 60 Physical Exam 2 Vital Signs: Vital Signs: Last Vital Signs Temp 96.9 F 01/11/24 04:53 Pulse 50 01/11/24 08:00 Resp 18 01/11/24 08:00 BP 127/60 01/11/24 08:00 Pulse Ox 99 01/11/24 08:00 O2 Del Method Mechanical Ventil ation 01/11/24 08:00 O2 Flow Rate 25 01/09/24 18:00 FiO2 21 01/11/24 08:18 BMI result Body Mass Index 29.4 Const: Other: intubated, sedated General: no acute distress and well developed HEENT: Head: Yes normal to inspection, Yes normocephalic and Yes atraumatic Eyes: General: appearance normal, both eyes and all related structures Neck: Neck: Yes normal visual inspection, Yes full ROM, Yes no meningeal signs, Yes trachea midline and Yes supple Chest: Chest palpation & inspection: normal inspection of the chest Resp: Other: no appreciable rales, rhonchi, wheezing Effort & Inspection: normal respiratory effort Cardio: Rate: bradycardic Rhythm: regular rhythm GI: Inspection: Yes normal to inspection, No Abdominal wall edema and No distended Palpation (GI): Soft to palpation, not firm, nontender, no guarding and not rigid Skin: General skin exam: no rashes or lesions noted Neuro: Other: appreciable contractures bilateral upper extremities General: no meningeal signs Extrem: General: Yes normal to inspection, Yes full ROM, Yes capillary refill normal and Yes no clubbing, cyanosis or edema Psych: Other: unable to assess Objective Data Labs 01/11/24 05:14 01/11/24 05:14 Labs: Laboratory Results - last 24 hr 01/11/24 01/11/24 05:09 05:14 WBC 4.7 L RBC 2.90 L Hgb 7.9 L Hct 24.6 L MCV 84.8 MCH 27.2 MCHC 32.1 RDW 18.6 H Plt Count 187 MPV 10.0 Immature Gran % (Auto) 0.4 Neut % (Auto) 73.0 Lymph % (Auto) 16.5 L [place] % (Auto) 6.1 Eos % (Auto) 3.6 Baso % (Auto) 0.4 Lymph # (Auto) 0.8 L [place] # (Auto) 0.3 Eos # (Auto) 0.2 Baso # (Auto) 0.0 Abs Immat Gran (auto) 0.02 Absolute Neuts (auto) 3.4 Absolute Nucleated RBC 0.000 Nucleated RBC % (auto) 0.0 VBG pH 7.48 H VBG pCO2 28 VBG pO2 66 VBG HCO3 21 L VBG O2 Saturation 95.0 VBG Base Excess -1.0 Sodium 140 Potassium 3.3 Chloride 106 Carbon Dioxide 20 L Anion Gap 17 BUN 29 H Creatinine 1.79 H Estim Creat Clear Calc 46.0 Estimated GFR 38 Random Glucose 79 Calcium 8.8 Phosphorus 4.4 Magnesium 1.7 Albumin 3.1 L Microbiology Microbiology Results: Microbiology 01/09/24 Unknown Urine Catheterized - Gregg Catheter Urine Culture - Final No growth. 01/09/24 09:09 Blood - Venous Blood Culture - Preliminary No growth after 24 hours. 01/09/24 08:50 Blood - Venous Blood Culture - Preliminary No growth after 24 hours. Progress Note: A&P Assessment and plan (1) Status epilepticus: Status: Acute (2) Pyelonephritis: Status: Acute Plan Patient is a 73 Y M with traumatic spinal cord injury c/b paraplegia, neurogenic bladder w/ chronic suprapubic catheter, c/b pseudomonas urinary tract infection, hypertension, CAD, atrial fibrillation on apixaban, and LATANYA on CPAP, presenting to emergency department on 01/08 with question seizure; per EMS, VNA noted developed episode of shaking w/ loss of consciousness for greater than 20 minutes; on arrival to emergency department, patient intubated; laboratories suggestive of acute renal insufficiency; CT H, C, A/P demonstrating possible pyelonephritis; otherwise, work-up grossly unrevealing N: c/f seizure; EEG 01/08 not on sedation demonstrating frequent epileptiform activity; CT H unrevealing; repeat EEG 01/09 not on sedation w/ continued epileptiform activity, though decreased; appreciate neurology recommendations; to maintain propofol gtt, midazolam gtt, and levetiracetam; LP today CV: no acute issues R: intubated in setting of encephalopathy GI: NPO; tube feeds : acute renal insufficiency; to monitor renal indices H: chronic anemia; to hold chemical DVT prophylaxis asa-procedurally ID: c/f pyelonephritis; prior UCx c/f possible ESBL, empiric meropenem E: to monitor hypo-/hyper-glycemia P: no acute issues Quality Stroke Does the patient have a stroke diagnosis?: No VTE Prior VTE?: No VTE Risk Level:: Medical - moderate - high VTE Device Contraindication: N/A - Device Ordered VTE Drug Contraindication: N/A - Med Ordered
[2024-01-11] MEDS: levETIRAcetam in NaCl (iso-os) 1,000 MG/100 ML PIGGYBACK 400 MG IV (08:25)
--- NOTE | 2024-01-11 10:37 | MHC.CLN ---
F/U PT REMAINS INTUBATED AND SEDATED TF TO START; RECOMMEND PROMOTE AT MAX GOAL RATE 50ML/HR WITH 30ML PROSOURCE BID TO PROVIDE 1320KCALS (2095KCALS TOTAL WITH SEDATION; 24KCALS/KG), 105G TOTAL PROTEIN (1.2G/KG), 1007ML FREE WATER FROM FORMULA MONITOR TOLERANCE AND LYTES
--- NOTE | 2024-01-11 11:49 | PM.PROC ---
Brief Operative Note Date of procedure: 01/11/24 Pre-op diagnosis: Seizures Post-op diagnosis: same Procedure: FL Lumbar puncture L2-L3, Opening pressure 14 cm H20. 12 cc clear csf removed and sent for requested labs. No immediate complications.
[2024-01-11 12:38] LABS: Glucose CSF 49 mg/dL
--- NOTE | 2024-01-11 13:25 | MHC.CM.PN ---
Pt continues on ventilatory support in ICU secondary to urosepsis and seizure activity. Plan for the day: assess vent wean ability: lumbar puncture. Pt is being followed by [employer] [facility] who assists w/coordination of home services. has [employer] care at home, all necessary adaptive equipment and weekly appointments w/[facility] wound care. Until his clinical needs can be fully known, pt's d/c plan is for a return to home w/existing services, however, should he need LT IV ATB or his wound care needs change, he may require STR placement. CM to follow and will update Consuelo on 01/11 via contact number.
[2024-01-11 13:34] LABS: CSF Appearance Clear, Colorless; CSF Tube # 3
[2024-01-11 14:24] LABS: Cryptococcus neoformans/gattii Not Detected (Not Detect.); Enterovirus Not Detected (Not Detect.); Escherichia coli K1 Not Detected (Not Detect.); Haemophilus influenzae Not Detected (Not Detect.); Herpes simplex virus 1 Not Detected (Not Detect.); Herpes simplex virus 2 Not Detected (Not Detect.); Human herpesvirus 6 Not Detected (Not Detect.); Human parechovirus Not Detected (Not Detect.); Listeria monocytogenes Not Detected (Not Detect.); Neisseria meningitidis Not Detected (Not Detect.); Streptococcus agalactiae Not Detected (Not Detect.); Streptococcus pneumoniae Not Detected (Not Detect.); Varicella zoster virus Not Detected (Not Detect.)
[2024-01-11 14:31] LABS: Appearance CSF CLEAR; CSF Tube # 1; CSF Volume 2.5 ML; Color CSF COLORLESS; Red Blood Cell CSF 376 MM*3; White Blood Cell CSF 0 MM*3
[2024-01-11 14:32] LABS: Appearance CSF CLEAR; CSF Tube # 4; CSF Volume 2.8 ML; Color CSF COLORLESS; Red Blood Cell CSF 1 MM*3; White Blood Cell CSF 0 MM*3
--- NOTE | 2024-01-11 14:47 | P.CDIM_ITS ---
PROVIDER RESPONSE TEXT: To clarify, the appropriate diagnosis supported by the clinical indicators: Pressure (decubitus) ulcer sacrococcygeal, unstageable, present on admission QUERY TEXT: PHYSICIAN'S DOCUMENTATION REQUEST Date of Query: 01/11/2024 02:09 PM EDT Patient Name: Eran Guerrero Admit Date: 01/09/2024 Dear Ashley Hancock MD, A review of the medical record indicates additional documentation may be needed. Please review below and update the documentation accordingly. Clinical Indicators: Per Wound Consult 01/10/24: Unstageable pressure injury sacrococcygeal, present on admission Off Load Pressure and Triad for autolytic debridement and moist wound healing and foam dressing to pr otect from friction and aid in off loading pressure Based on the above, could you please provide further information regarding the ulcer/wound: Pressure (decubitus) ulcer sacrococcygeal, unstageable, present on admission Traumatic wound sacrococcygeal, unstageable, present on admission Other (explain) Clinically unable to determine (explain) Thank you, Doris Bobby RN Use of terms such as suspected, likely, concern for, or probable (associated with a specific diagnosi s that is being evaluated, monitored, or treated as if it exists) are acceptable and can be coded in the inpatient se tting, when documented at the time of discharge. Please use your independent medical judgment in providing your response. THIS QUERY IS PART OF THE PERMANENT MEDICAL RECORD
[2024-01-11 14:50] LABS: Triglycerides 133 mg/dL (<150)
[2024-01-11] MEDS: Baclofen 10 MG TABLET 5 MG PO ×2 (16:14→21:47)
[2024-01-11] MEDS: Albumin Human 25 % 100 ML IV (19:27)
[2024-01-11] MEDS: gadobutroL 10 ML VIAL IVPUSH (20:45)
[2024-01-12] VITALS (34 sets, daily range): BP systolic 91–150; BP diastolic 34–86; PULSE 52–81; RESP 12–20; TEMP 34–37.2; O2SAT 93–99; BMI 29.8
[2024-01-12] MEDS: propofoL 1,000 MG/100 ML VIAL 29.34 MG IVCONT ×5 (00:19→13:00)
[2024-01-12] MEDS: Chlorhexidine Gluc Oral Rinse 15 ML MOUTHWASH BUCCAL ×3 (03:28→19:33)
[2024-01-12] MEDS: Midazolam HCl/NS 50 MG/50 ML PLAST..BAG IVCONT (03:31)
[2024-01-12] MEDS: Pantoprazole Sodium 40 MG in 0.9 % Sodium Chloride 100 ML 400 MG IV (05:43)
[2024-01-12 05:58] LABS: VBG HCO3 19 mmol/L (22-26); VBG pCO2 28 mmHg; VBG pH 7.43 (7.32-7.43); VBG pO2 46 mmHg
[2024-01-12 06:05] LABS: Venous Blood Gas Refer to POC result
[2024-01-12 06:13] LABS: MANUAL DIFF FLAG NO
[2024-01-12 06:34] LABS: Albumin Level 3.6 g/dL (3.5-5.0); Anion Gap 19 (12-20); Blood Urea Nitrogen 27 mg/dL (9-16); Calcium 8.9 mg/dL (8.4-10.2); Carbon Dioxide 19 mmol/L (22-29); Chloride 111 mmol/L (96-108); Creatinine Clr Calc Pharmacy 44.7; Estimated Glomerular Filt Rate 36; Glucose Random 90 mg/dL (60-115); Magnesium 1.6 mg/dL (1.6-2.6); Phosphorus 4.7 mg/dL (2.7-4.5); Potassium 3.7 mmol/L (3.3-5.1); Sodium 145 mmol/L (135-145)
[2024-01-12 06:45] LABS: Basophils Percent Auto 0.4 % (0-2); Eosinophils Absolute Auto 0.2 X10*3/uL (0.0-0.4); Eosinophils Percent Auto 3.5 % (0-4); Hematocrit 26.1 % (42.0-52.0); Hemoglobin 8.3 g/dl (14.0-18.0); Imm Gran Abs Auto 0.02 X10*3/uL (0.00-0.03); Imm Gran Pct Auto 0.4 % (0.0-0.4); Lymphocytes Absolute Auto 0.9 X10*3/uL (1.2-4.9); Lymphocytes Percent Auto 15.9 % (20-40); Mean Corpuscular HGB Conc 31.8 g/dl (31.0-36.0); Mean Corpuscular Hemoglobin 26.9 pg (27.0-33.0); Mean Corpuscular Volume 84.7 fL (80.0-98.0); Mean Platelet Volume 10.4 fL (9.4-12.4); Monocytes Absolute Auto 0.4 X10*3/uL (0.1-1.2); Monocytes Percent Auto 6.2 % (2-11); Neutrophils Absolute Auto 4.2 x10*3/uL (2.0-8.3); Neutrophils Percent Auto 73.6 % (45-73); Platelet Count 223 X10*3/uL (160-400); Red Blood Count 3.08 X10*6/uL (4.60-5.80); Red Cell Distribution Width 18.8 % (11.0-16.0); White Blood Count 5.7 X10*3/uL (4.8-10.8)
[2024-01-12] MEDS: Baclofen 10 MG TABLET 5 MG PO ×3 (08:05→20:45)
[2024-01-12] MEDS: levETIRAcetam in NaCl (iso-os) 1,000 MG/100 ML PIGGYBACK 400 MG IV (08:05)
--- NOTE | 2024-01-12 10:10 | MHC.CLN ---
F/U PT REMAINS INTUBATED AND SEDATED DISCUSSED AT ROUNDS WITH MD SCHUMACHER RUNNING AT 30ML/HR AND TITRATING TO GOAL RECOMMEND PROMOTE AT MAX GOAL RATE 50ML/HR WITH 30ML PROSOURCE BID TO PROVIDE 1320KCALS (2095KCALS TOTAL WITH SEDATION; 24KCALS/KG), 105G TOTAL PROTEIN (1.2G/KG), 1007ML FREE WATER FROM FORMULA CONTINUE TO MONITOR TOLERANCE AND LYTES
--- NOTE | 2024-01-12 11:52 | PC.NURSE ---
Late entry for patient: 01-09-2024 Propofol started at 10:14am at 30mcg /kg/min per protocol At 10:23am per Dr Delvalle drip to be decreased by 50 percent to 15 mcg/kg/min per verbal order. Dr Delvalle also stated to increase to 20mcg/kg/min at 11:20am. followed protocol there after.
--- NOTE | 2024-01-12 12:25 | P.PNCC_ITS ---
Subjective Subjective Date of Service: 01/12/24 Interval History: Continues to be in status epilepticus needing multiple drips including propofol and Versed On ventilator support Lumbar puncture done yesterday showed normal cell count, normal glucose, pending protein levels MRI done yesterday still pending Baclofen pump was checked by the tech today and is working Critical Care Time (minutes): 50 Physical Exam 2 Vital Signs: Vital Signs: Last Vital Signs Temp 97.7 F 01/12/24 10:00 Pulse 53 01/12/24 12:00 Resp 12 01/12/24 12:00 BP 110/54 L 01/12/24 12:00 Pulse Ox 97 01/12/24 12:00 O2 Del Method Mechanical Ventil ation 01/12/24 12:00 O2 Flow Rate 25 01/09/24 18:00 FiO2 21 01/12/24 12:00 BMI result Body Mass Index 29.8 General: acute distress, ill appearing and tired appearing Nutritional Appearance: well nourished and overweight Eyes: appearance normal, both eyes and all related structures; Alignment and Position: alignment normal and position normal Neck: No lymphadenopathy, no thyromegaly Resp: bilateral air entry equal, occasional added sounds present in both lungs bases Cardio: Regular rate, regular rhythm; Heart sounds: S1 normal heart sound present and S2 normal heart sound present GI: soft, nontender, no guarding, no hepatosplenomegaly : bladder normal to inspection, bladder normal to palpation, no renal angle tenderness Skin: no rashes or lesions noted and elasticity normal Neuro: Sedated, no focal deficits, oriented to time and moves all extremities Objective Data Labs 01/12/24 05:52 01/12/24 05:52 Labs: Laboratory Results - last 24 hr 01/11/24 01/11/24 01/11/24 11:24 11:24 11:24 WBC RBC Hgb Hct MCV MCH MCHC RDW Plt Count MPV Immature Gran % (Auto) Neut % (Auto) Lymph % (Auto) [place] % (Auto) Eos % (Auto) Baso % (Auto) Lymph # (Auto) [place] # (Auto) Eos # (Auto) Baso # (Auto) Abs Immat Gran (auto) Absolute Neuts (auto) Absolute Nucleated RBC Nucleated RBC % (auto) VBG pH VBG pCO2 VBG pO2 VBG HCO3 VBG O2 Saturation VBG Base Excess Sodium Potassium Chloride Carbon Dioxide Anion Gap BUN Creatinine Estim Creat Clear Calc Estimated GFR Random Glucose Calcium Phosphorus Magnesium Albumin Triglycerides CSF Tube Number 3 1 4 CSF Volume 2.5 CSF Appearance CSF Color CSF WBC CSF RBC CSF Appearance (b) CSF Glucose CSF C.neoform/gat PCR CSF CMV DNA (PCR) CSF Enterovirus (PCR) CSF E. coli K1 (PCR) CSF H. influenzae (PCR) CSF HSV I (PCR) CSF HSV II (PCR) CSF HHV 6 (PCR) CSF L.monocytogenes PCR CSF N. meningitidis PCR CSF Parechovirus (PCR) CSF S. agalactiae (PCR) CSF S. pneumoniae (PCR) CSF VZV (PCR) 01/11/24 01/11/24 01/11/24 11:24 11:24 11:24 WBC RBC Hgb Hct MCV MCH MCHC RDW Plt Count MPV Immature Gran % (Auto) Neut % (Auto) Lymph % (Auto) [place] % (Auto) Eos % (Auto) Baso % (Auto) Lymph # (Auto) [place] # (Auto) Eos # (Auto) Baso # (Auto) Abs Immat Gran (auto) Absolute Neuts (auto) Absolute Nucleated RBC Nucleated RBC % (auto) VBG pH VBG pCO2 VBG pO2 VBG HCO3 VBG O2 Saturation VBG Base Excess Sodium Potassium Chloride Carbon Dioxide Anion Gap BUN Creatinine Estim Creat Clear Calc Estimated GFR Random Glucose Calcium Phosphorus Magnesium Albumin Triglycerides CSF Tube Number CSF Volume 2.8 CSF Appearance CLEAR CLEAR CSF Color COLORLESS COLORLESS CSF WBC 0 CSF RBC CSF Appearance (b) CSF Glucose CSF C.neoform/gat PCR CSF CMV DNA (PCR) CSF Enterovirus (PCR) CSF E. coli K1 (PCR) CSF H. influenzae (PCR) CSF HSV I (PCR) CSF HSV II (PCR) CSF HHV 6 (PCR) CSF L.monocytogenes PCR CSF N. meningitidis PCR CSF Parechovirus (PCR) CSF S. agalactiae (PCR) CSF S. pneumoniae (PCR) CSF VZV (PCR) 01/11/24 01/11/24 01/11/24 11:24 11:24 Unknown WBC RBC Hgb Hct MCV MCH MCHC RDW Plt Count MPV Immature Gran % (Auto) Neut % (Auto) Lymph % (Auto) [place] % (Auto) Eos % (Auto) Baso % (Auto) Lymph # (Auto) [place] # (Auto) Eos # (Auto) Baso # (Auto) Abs Immat Gran (auto) Absolute Neuts (auto) Absolute Nucleated RBC Nucleated RBC % (auto) VBG pH VBG pCO2 VBG pO2 VBG HCO3 VBG O2 Saturation VBG Base Excess Sodium Potassium Chloride Carbon Dioxide Anion Gap BUN Creatinine Estim Creat Clear Calc Estimated GFR Random Glucose Calcium Phosphorus Magnesium Albumin Triglycerides 133 CSF Tube Number CSF Volume CSF Appearance CSF Color CSF WBC 0 CSF RBC 376 1 CSF Appearance (b) Clear, Colorless CSF Glucose 49 CSF C.neoform/gat PCR Not Detected CSF CMV DNA (PCR) Not Detected CSF Enterovirus (PCR) Not Detected CSF E. coli K1 (PCR) Not Detected CSF H. influenzae (PCR) Not Detected CSF HSV I (PCR) Not Detected CSF HSV II (PCR) Not Detected CSF HHV 6 (PCR) Not Detected CSF L.monocytogenes PCR Not Detected CSF N. meningitidis PCR Not Detected CSF Parechovirus (PCR) Not Detected CSF S. agalactiae (PCR) Not Detected CSF S. pneumoniae (PCR) Not Detected CSF VZV (PCR) Not Detected 01/12/24 01/12/24 05:46 05:52 WBC 5.7 RBC 3.08 L Hgb 8.3 L Hct 26.1 L MCV 84.7 MCH 26.9 L MCHC 31.8 RDW 18.8 H Plt Count 223 MPV 10.4 Immature Gran % (Auto) 0.4 Neut % (Auto) 73.6 H Lymph % (Auto) 15.9 L [place] % (Auto) 6.2 Eos % (Auto) 3.5 Baso % (Auto) 0.4 Lymph # (Auto) 0.9 L [place] # (Auto) 0.4 Eos # (Auto) 0.2 Baso # (Auto) 0.0 Abs Immat Gran (auto) 0.02 Absolute Neuts (auto) 4.2 Absolute Nucleated RBC 0.000 Nucleated RBC % (auto) 0.0 VBG pH 7.43 VBG pCO2 28 VBG pO2 46 VBG HCO3 19 L VBG O2 Saturation 81.0 VBG Base Excess -4.0 Sodium 145 Potassium 3.7 Chloride 111 H Carbon Dioxide 19 L Anion Gap 19 BUN 27 H Creatinine 1.85 H Estim Creat Clear Calc 44.7 Estimated GFR 36 Random Glucose 90 Calcium 8.9 Phosphorus 4.7 H Magnesium 1.6 Albumin 3.6 Triglycerides CSF Tube Number CSF Volume CSF Appearance CSF Color CSF WBC CSF RBC CSF Appearance (b) CSF Glucose CSF C.neoform/gat PCR CSF CMV DNA (PCR) CSF Enterovirus (PCR) CSF E. coli K1 (PCR) CSF H. influenzae (PCR) CSF HSV I (PCR) CSF HSV II (PCR) CSF HHV 6 (PCR) CSF L.monocytogenes PCR CSF N. meningitidis PCR CSF Parechovirus (PCR) CSF S. agalactiae (PCR) CSF S. pneumoniae (PCR) CSF VZV (PCR) Microbiology Microbiology Results: Microbiology 01/11/24 11:24 Cerebrospinal Fluid Gram Stain - Final 01/11/24 11:24 Cerebrospinal Fluid CSF Examination - Final 01/11/24 11:24 Cerebrospinal Fluid Fluid Description - Final 01/11/24 11:24 Cerebrospinal Fluid CSF Culture - Preliminary No growth after 1 day 01/09/24 09:09 Blood - Venous Blood Culture - Preliminary No growth after 48 hours. 01/09/24 08:50 Blood - Venous Blood Culture - Preliminary No growth after 48 hours. 01/09/24 Unknown Urine Catheterized - Gregg Catheter Urine Culture - Final No growth. Progress Note: A&P Assessment and plan (1) Status epilepticus: Status: Acute (2) Pyelonephritis: Status: Acute (3) Seizure: Status: Acute (4) Acute UTI: Status: Acute (5) DYLAN (acute kidney injury): Status: Acute Plan Neuro: Acute encephalopathy secondary to status epilepticus On propofol and Versed drip to manage status epilepticus; we will slowly wean off Versed drip as tolerated white closely monitoring for any seizure activities On p.o. Keppra Continue baclofen pump, on p.o. baclofen 5 mg t.i.d. Underwent MRI of the brain yesterday, results pending Lumbar puncture shows normal cell count and normal sugars, pending proteins Close neurological status monitoring in the ICU every hour Cardiac: Blood pressure stable Respiratory: Currently on ventilator support secondary to status epilepticus leading to poor respiratory efforts On PRVC mode FiO2[50%], PEEP 5, TV 400, RR 20 Peak pressures and plateau pressures are under the curve Ventilator management bundle with head end elevation, aspiration precaution, chlorhexidine mouthwash, daily awakening trials, daily spontaneous breathing trials No plans to extubate today as the patient has status epilepticus and is on multiple sedative drips GI: Continue tube feeds Renal: Acute kidney injury possibly secondary to pyelonephritis,, we will do a bedside ultrasound to evaluate the fluid status Baseline creatinine normal, creatinine today is 1.85 We will closely monitor I's and O's Avoid nephrotoxic medications Heme: Chronic anemia, closely monitor H&H, transfuse for hemoglobin less than 7 grams/deciliter Endocrine: Blood sugars under control Sliding scale insulin as needed Infectious disease: Pancultures negative so far On meropenem as the patient has evidence of pyelonephritis on CT abdomen and has a history of ESBL Klebsiella Musculoskeletal: Decubitus ulcer prevention protocol Lines: Peripheral zone Prophylaxis: Lovenox, pantoprazole Critical care time spent is about 45 minutes on managing patient's status epilepticus, titrating multiple sedating drips to manage the seizures, ventilator management, sedation management at this time is excluding any procedural times. Quality Stroke Does the patient have a stroke diagnosis?: No VTE Prior VTE?: No VTE Risk Level:: Medical - moderate - high VTE Device Contraindication: N/A - Device Ordered VTE Drug Contraindication: N/A - Med Ordered
--- NOTE | 2024-01-12 12:36 | MHC.CM.PN ---
Addendum entered by Galina Rivera 01/12/24 12:54: Pt also w/continued seizure activity noted: on Keppra and being closely followed Original Note: Pt continues on low vent support: Pt from home w/ [employer] care and all necessary adaptive equipment. Original plan is to return to home via BLS vs spouse. Pt has thorough oversight through Rajeev's Comp RN Consuelo who calls [facility] [place] for clinical updates. [facility] [place] CM discussed pt's likely need for IV ATB and more frequent wound management that would require STR placement. No referrals have been made at this time: Consuelo is aware and can assist with STR payment needs. CM to follow for finalization of d/c plans.
[2024-01-12 12:40] LABS: Total Protein CSF 49.6 mg/dL (15-45)
[2024-01-12] MEDS: Heparin Sodium,Porcine 5,000 UNIT/ML VIAL 5000 UNIT SUBCUT ×2 (14:29→20:09)
[2024-01-12 15:05] LABS: CSF Appearance Clear, Colorless; CSF Tube # 1
[2024-01-12] MEDS: levETIRAcetam Oral Soln 500 MG/5 ML 1000 MG PO (20:46)
[2024-01-13] VITALS (34 sets, daily range): BP systolic 107–173; BP diastolic 54–86; PULSE 69–89; RESP 12–32; TEMP 34.1–37.6; O2SAT 92–99; BMI 27.9
[2024-01-13 00:07] LABS: CDiff Gene PCR NEGATIVE (Negative)
[2024-01-13] MEDS: Chlorhexidine Gluc Oral Rinse 15 ML MOUTHWASH BUCCAL ×3 (04:54→20:49)
[2024-01-13] MEDS: Heparin Sodium,Porcine 5,000 UNIT/ML VIAL 5000 UNIT SUBCUT ×2 (04:54→13:46)
[2024-01-13] MEDS: Pantoprazole Sodium 40 MG in 0.9 % Sodium Chloride 100 ML 400 MG IV (04:55)
[2024-01-13 05:04] LABS: MANUAL DIFF FLAG NO
[2024-01-13 05:05] LABS: Venous Blood Gas Refer to POC result
[2024-01-13 05:06] LABS: Basophils Percent Auto 0.3 % (0-2); Eosinophils Absolute Auto 0.2 X10*3/uL (0.0-0.4); Eosinophils Percent Auto 2.4 % (0-4); Hematocrit 28.4 % (42.0-52.0); Hemoglobin 8.9 g/dl (14.0-18.0); Imm Gran Abs Auto 0.02 X10*3/uL (0.00-0.03); Imm Gran Pct Auto 0.3 % (0.0-0.4); Lymphocytes Absolute Auto 0.7 X10*3/uL (1.2-4.9); Lymphocytes Percent Auto 10.4 % (20-40); Mean Corpuscular HGB Conc 31.3 g/dl (31.0-36.0); Mean Corpuscular Hemoglobin 26.6 pg (27.0-33.0); Mean Platelet Volume 9.6 fL (9.4-12.4); Monocytes Absolute Auto 0.4 X10*3/uL (0.1-1.2); Monocytes Percent Auto 6.4 % (2-11); Neutrophils Absolute Auto 5.4 x10*3/uL (2.0-8.3); Neutrophils Percent Auto 80.2 % (45-73); Platelet Count 231 X10*3/uL (160-400); Red Blood Count 3.34 X10*6/uL (4.60-5.80); Red Cell Distribution Width 18.8 % (11.0-16.0); White Blood Count 6.7 X10*3/uL (4.8-10.8)
[2024-01-13 05:11] LABS: VBG Base Excess -2.1 mmol/L; VBG HCO3 20 mmol/L (22-26); VBG pCO2 26 mmHg; VBG pH 7.48 (7.32-7.43); VBG pO2 104 mmHg
[2024-01-13 05:23] LABS: Albumin Level 3.6 g/dL (3.5-5.0); Anion Gap 17 (12-20); Blood Urea Nitrogen 29 mg/dL (9-16); Calcium 8.9 mg/dL (8.4-10.2); Carbon Dioxide 21 mmol/L (22-29); Chloride 114 mmol/L (96-108); Estimated Glomerular Filt Rate 40; Glucose Random 123 mg/dL (60-115); Magnesium 1.5 mg/dL (1.6-2.6); Phosphorus 4.3 mg/dL (2.7-4.5); Potassium 4.2 mmol/L (3.3-5.1); Sodium 148 mmol/L (135-145)
[2024-01-13] MEDS: Magnesium Sulfate/H2O 2 GM/50 ML PIGGYBACK IV (06:05)
[2024-01-13] MEDS: Baclofen 10 MG TABLET 5 MG PO ×3 (10:11→20:49)
[2024-01-13] MEDS: levETIRAcetam Oral Soln 500 MG/5 ML 1000 MG PO ×2 (10:54→20:49)
--- NOTE | 2024-01-13 12:26 | P.PNCC_ITS ---
Subjective Subjective Date of Service: 01/13/24 Interval History: No further seizures or status epilepticus Propofol and Versed is currently tapered off Patient is quadriplegic hard to see if he is following commands Place the patient on pressor support trials this morning Critical Care Time (minutes): 40 Physical Exam 2 Vital Signs: Vital Signs: Last Vital Signs Temp 99.7 F 01/13/24 11:57 Pulse 84 01/13/24 11:57 Resp 13 01/13/24 11:57 BP 133/69 01/13/24 11:57 Pulse Ox 94 01/13/24 11:57 O2 Del Method Mechanical Ventil ation 01/13/24 11:57 O2 Flow Rate 25 01/09/24 18:00 FiO2 21 01/13/24 11:57 BMI result Body Mass Index 27.9 General: acute distress, ill appearing and tired appearing Nutritional Appearance: well nourished and overweight Eyes: appearance normal, both eyes and all related structures; Alignment and Position: alignment normal and position normal Neck: No lymphadenopathy, no thyromegaly Resp: bilateral air entry equal, occasional crackles heard Cardio: Regular rate, regular rhythm; Heart sounds: S1 normal heart sound present and S2 normal heart sound present GI: soft, nontender, no guarding, no hepatosplenomegaly : bladder normal to inspection, bladder normal to palpation, no renal angle tenderness Skin: no rashes or lesions noted and elasticity normal Neuro: Spastic quadriplegia Objective Data Labs 01/13/24 04:58 01/13/24 04:58 Labs: Laboratory Results - last 24 hr 01/10/24 01/11/24 01/12/24 13:07 11:24 22:53 WBC RBC Hgb Hct MCV MCH MCHC RDW Plt Count MPV Immature Gran % (Auto) Neut % (Auto) Lymph % (Auto) [place] % (Auto) Eos % (Auto) Baso % (Auto) Lymph # (Auto) [place] # (Auto) Eos # (Auto) Baso # (Auto) Abs Immat Gran (auto) Absolute Neuts (auto) Absolute Nucleated RBC Nucleated RBC % (auto) VBG pH VBG pCO2 VBG pO2 VBG HCO3 VBG O2 Saturation VBG Base Excess Sodium Potassium Chloride Carbon Dioxide Anion Gap BUN Creatinine Estim Creat Clear Calc Estimated GFR Random Glucose Calcium Phosphorus Magnesium Albumin CSF Tube Number 1 CSF Appearance (b) Clear, Colorless CSF Total Protein 49.6 H Levetiracetam 62.0 H C. difficile Tox B Gene NEGATIVE 01/13/24 01/13/24 04:58 05:04 WBC 6.7 RBC 3.34 L Hgb 8.9 L Hct 28.4 L MCV 85.0 MCH 26.6 L MCHC 31.3 RDW 18.8 H Plt Count 231 MPV 9.6 Immature Gran % (Auto) 0.3 Neut % (Auto) 80.2 H Lymph % (Auto) 10.4 L [place] % (Auto) 6.4 Eos % (Auto) 2.4 Baso % (Auto) 0.3 Lymph # (Auto) 0.7 L [place] # (Auto) 0.4 Eos # (Auto) 0.2 Baso # (Auto) 0.0 Abs Immat Gran (auto) 0.02 Absolute Neuts (auto) 5.4 Absolute Nucleated RBC 0.000 Nucleated RBC % (auto) 0.0 VBG pH 7.48 H VBG pCO2 26 VBG pO2 104 VBG HCO3 20 L VBG O2 Saturation 100.0 VBG Base Excess -2.1 Sodium 148 H Potassium 4.2 Chloride 114 H Carbon Dioxide 21 L Anion Gap 17 BUN 29 H Creatinine 1.71 H Estim Creat Clear Calc 47.0 Estimated GFR 40 Random Glucose 123 H Calcium 8.9 Phosphorus 4.3 Magnesium 1.5 L Albumin 3.6 CSF Tube Number CSF Appearance (b) CSF Total Protein Levetiracetam C. difficile Tox B Gene Microbiology Microbiology Results: Microbiology 01/11/24 11:24 Cerebrospinal Fluid Gram Stain - Final 01/11/24 11:24 Cerebrospinal Fluid CSF Examination - Final 01/11/24 11:24 Cerebrospinal Fluid Fluid Description - Final 01/11/24 11:24 Cerebrospinal Fluid CSF Culture - Preliminary Culture in progress. 01/09/24 09:09 Blood - Venous Blood Culture - Preliminary No growth after 48 hours. 01/09/24 08:50 Blood - Venous Blood Culture - Preliminary No growth after 48 hours. 01/09/24 Unknown Urine Catheterized - Gregg Catheter Urine Culture - Final No growth. Progress Note: A&P Assessment and plan (1) Status epilepticus: Status: Acute (2) Pyelonephritis: Status: Acute (3) Seizure: Status: Acute (4) Acute alteration in mental status: Status: Acute (5) Acute UTI: Status: Acute (6) DYLAN (acute kidney injury): Status: Acute Plan Neuro: Acute encephalopathy secondary to status epilepticus, currently is improving Propofol and Versed drip has been tapered off, no active seizures On p.o. Keppra 1 g b.i.d.. Keppra level done yesterday was slightly higher; the level was drawn around 13:00 and he had received a dose at 09:00. We will repeat a trough level tomorrow in the morning Continue baclofen pump- confirmed with the tech that baclofen pump is working, on p.o. baclofen 5 mg t.i.d. MRI of the brain did not show any acute intracranial pathology Lumbar puncture shows normal cell count and normal sugars, protein slightly elevated Close neurological status monitoring in the ICU every hour Cardiac: Blood pressure stable Respiratory: Currently on ventilator support secondary to status epilepticus leading to poor respiratory efforts On PRVC mode FiO2 40%, PEEP 5, TV 400, RR 20; patient has been switched to pressure support trials this morning, so far he is doing okay. We will get the weaning parameters and possibly we will extubate him today Peak pressures and plateau pressures are under the curve Ventilator management bundle with head end elevation, aspiration precaution, chlorhexidine mouthwash, daily awakening trials, daily spontaneous breathing trials GI: Hold tube feeds for extubation Renal: Acute kidney injury possibly secondary to pyelonephritis, bedside ultrasound to evaluate the fluid status showed normal sized IVC, normal-sized RV and normal LV systolic function Baseline creatinine normal, creatinine yesterday was 1.85 today it trended down to 1.7 We will closely monitor I's and O's Avoid nephrotoxic medications Hypernatremia: Sodium increased up to 148 Overall fluid balance net-200 cc yesterday We will give him 500 cc of D5 water He is going to be NPO for extubation so we will not do free water flushes Heme: Chronic anemia, closely monitor H&H, transfuse for hemoglobin less than 7 grams/deciliter Endocrine: Blood sugars under control Sliding scale insulin as needed Infectious disease: Pancultures negative so far On meropenem as the patient has evidence of pyelonephritis on CT abdomen and has a history of ESBL Klebsiella Musculoskeletal: Decubitus ulcer prevention protocol Lines: Peripheral zone Prophylaxis: Heparin, pantoprazole Patient has multiple organ failures including acute encephalopathy, acute hypoxemic respiratory failure, acute kidney injury. Critical care time spent is about 40 minutes on ventilator management, ventilator setting changes, weaning from ventilator, close neurological status monitoring and this time is excluding any procedural times. Quality Stroke Does the patient have a stroke diagnosis?: No VTE Prior VTE?: No VTE Risk Level:: Medical - moderate - high VTE Device Contraindication: N/A - Device Ordered VTE Drug Contraindication: N/A - Med Ordered
[2024-01-13 16:33] LABS: Lyme (B. burgdorferi) PCR NOT DETECTED (NOT DETECTED)
[2024-01-13] MEDS: dexmedeTOMIDidine HCL/NS 400 MCG/100 ML INFUS..BTL 23.35 MCG IVCONT (21:36)
[2024-01-13 23:29] LABS: JC Polyoma Virus RT CSF Not Detected (Not Detected)
[2024-01-14] VITALS (31 sets, daily range): BP systolic 117–170; BP diastolic 49–100; PULSE 59–86; RESP 12–21; TEMP 34.8–37.9; O2SAT 91–99; BMI 28.3
--- NOTE | 2024-01-14 | ECG_ITS ---
Test Reason : HTN Blood Pressure : / mmHG Vent. Rate : 070 BPM Atrial Rate : 070 BPM P-R Int : 156 ms QRS Dur : 088 ms QT Int : 378 ms P-R-T Axes : 062 030 034 degrees QTc Int : 408 ms Normal sinus rhythm with sinus arrhythmia Normal ECG When compared with ECG of 09-JAN-2024 09:03, No significant change was found Referred By: Shefali Duggan Electronically Signed By:MO NIÑO
[2024-01-14] MEDS: 0.9 % Sodium Chloride Flush 3 ML SYRINGE IVFLUSH ×2 (00:06→08:17)
[2024-01-14] MEDS: dexmedeTOMIDidine HCL/NS 400 MCG/100 ML INFUS..BTL 35.03 MCG IVCONT (00:13)
[2024-01-14] MEDS: Midazolam HCl/PF 2 MG/2 ML VIAL IVPUSH (00:46)
[2024-01-14] MEDS: propofoL 1,000 MG/100 ML VIAL 17.6 MG IVCONT ×2 (01:37→05:48)
[2024-01-14] MEDS: dexmedeTOMIDidine HCL/NS 400 MCG/100 ML INFUS..BTL 21.02 MCG IVCONT (03:49)
[2024-01-14] MEDS: Chlorhexidine Gluc Oral Rinse 15 ML MOUTHWASH BUCCAL ×3 (04:26→19:47)
[2024-01-14 04:27] LABS: VBG Base Excess -0.6 mmol/L; VBG HCO3 22 mmol/L (22-26); VBG pCO2 33 mmHg; VBG pH 7.44 (7.32-7.43); VBG pO2 59 mmHg
[2024-01-14 04:30] LABS: Venous Blood Gas Refer to POC result
[2024-01-14 04:39] LABS: MANUAL DIFF FLAG NO
[2024-01-14 04:40] LABS: Basophils Percent Auto 0.5 % (0-2); Eosinophils Absolute Auto 0.1 X10*3/uL (0.0-0.4); Eosinophils Percent Auto 1.9 % (0-4); Hemoglobin 9.2 g/dl (14.0-18.0); Imm Gran Abs Auto 0.02 X10*3/uL (0.00-0.03); Imm Gran Pct Auto 0.3 % (0.0-0.4); Lymphocytes Absolute Auto 1.1 X10*3/uL (1.2-4.9); Lymphocytes Percent Auto 18.2 % (20-40); Mean Corpuscular HGB Conc 31.7 g/dl (31.0-36.0); Mean Corpuscular Hemoglobin 27.3 pg (27.0-33.0); Mean Corpuscular Volume 86.1 fL (80.0-98.0); Mean Platelet Volume 9.6 fL (9.4-12.4); Monocytes Absolute Auto 0.4 X10*3/uL (0.1-1.2); Monocytes Percent Auto 6.5 % (2-11); Neutrophils Absolute Auto 4.5 x10*3/uL (2.0-8.3); Neutrophils Percent Auto 72.6 % (45-73); Platelet Count 212 X10*3/uL (160-400); Red Blood Count 3.37 X10*6/uL (4.60-5.80); Red Cell Distribution Width 18.6 % (11.0-16.0); White Blood Count 6.2 X10*3/uL (4.8-10.8)
--- NOTE | 2024-01-14 04:51 | PC.NURSE ---
Upon initial assessment at approx. 1999, patient noted to have elevated NIBP. SBP 150s, patient denies pain or anxiety. Repeated NIBP readings remain SBP 150s, precedex gtt ordered (see MAR). 2300- patient SBP 170s, precedex gtt titrated up to max rate per KAYLIE Duggan. SBP remained elevated, RASS +1, and LNA concerned for HTN r/t possible seizure activity. 0045- 2mg versed IVP ordered and administered (see MAR) with positive effect, RASS -3. 0130- SBP reading 160s, propofol gtt restarted per KAYLIE Duggan (see MAR). 0500- SBP reading 130s, RASS -3. Bed locked in lowest position, bed alarm on.
[2024-01-14 04:55] LABS: Albumin Level 3.6 g/dL (3.5-5.0); Anion Gap 17 (12-20); Blood Urea Nitrogen 30 mg/dL (9-16); Calcium 9.1 mg/dL (8.4-10.2); Carbon Dioxide 21 mmol/L (22-29); Chloride 117 mmol/L (96-108); Creatinine Clr Calc Pharmacy 56.2; Estimated Glomerular Filt Rate 49; Glucose Random 158 mg/dL (60-115); Magnesium 1.8 mg/dL (1.6-2.6); Phosphorus 3.9 mg/dL (2.7-4.5); Potassium 4.1 mmol/L (3.3-5.1); Sodium 151 mmol/L (135-145)
[2024-01-14] MEDS: Dextrose 5 % 1,000 ML 50 ML IVCONT (05:44)
[2024-01-14] MEDS: Pantoprazole Sodium 40 MG/10 ML VIAL IVPUSH (05:50)
[2024-01-14 06:21] LABS: Glucose, Whole Blood 149 mg/dL (60-115)
[2024-01-14] MEDS: levETIRAcetam Oral Soln 500 MG/5 ML 1000 MG PO (08:16)
[2024-01-14] MEDS: Baclofen 10 MG TABLET 5 MG PO (08:16)
[2024-01-14] MEDS: dexmedeTOMIDidine HCL/NS 400 MCG/100 ML INFUS..BTL 11.68 MCG IVCONT (11:50)
[2024-01-14 12:28] LABS: Glucose, Whole Blood 138 mg/dL (60-115)
--- NOTE | 2024-01-14 12:42 | P.PNCC_ITS ---
Subjective Subjective Date of Service: 01/14/24 Interval History: On ventilator support this morning Had episodes of dyssynchrony, agitation hypertension and tachycardia overnight so he was started on propofol and Precedex drip and also received multiple pushes of Versed and fentanyl Critical Care Time (minutes): 40 Physical Exam 2 Vital Signs: Vital Signs: Last Vital Signs Temp 99.9 F 01/14/24 12:00 Pulse 80 01/14/24 12:00 Resp 21 H 01/14/24 12:00 BP 133/61 01/14/24 12:00 Pulse Ox 93 01/14/24 12:00 O2 Del Method Mechanical Ventil ation 01/14/24 12:00 O2 Flow Rate 25 01/09/24 18:00 FiO2 21 01/14/24 12:00 BMI result Body Mass Index 28.3 General: acute distress, ill appearing and tired appearing Nutritional Appearance: well nourished and overweight Eyes: appearance normal, both eyes and all related structures; Alignment and Position: alignment normal and position normal Neck: No lymphadenopathy, no thyromegaly Resp: bilateral air entry equal, no added sounds present Cardio: Regular rate, regular rhythm; Heart sounds: S1 normal heart sound present and S2 normal heart sound present GI: soft, nontender, no guarding, no hepatosplenomegaly : bladder normal to inspection, bladder normal to palpation, no renal angle tenderness Skin: no rashes or lesions noted and elasticity normal Neuro: Spastic quadriparesis, opens eyes Objective Data Labs 01/14/24 04:18 01/14/24 04:18 Labs: Laboratory Results - last 24 hr 01/11/24 01/14/24 01/14/24 11:24 04:16 04:18 WBC 6.2 RBC 3.37 L Hgb 9.2 L Hct 29.0 L MCV 86.1 MCH 27.3 MCHC 31.7 RDW 18.6 H Plt Count 212 MPV 9.6 Immature Gran % (Auto) 0.3 Neut % (Auto) 72.6 Lymph % (Auto) 18.2 L [place] % (Auto) 6.5 Eos % (Auto) 1.9 Baso % (Auto) 0.5 Lymph # (Auto) 1.1 L [place] # (Auto) 0.4 Eos # (Auto) 0.1 Baso # (Auto) 0.0 Abs Immat Gran (auto) 0.02 Absolute Neuts (auto) 4.5 Absolute Nucleated RBC 0.000 Nucleated RBC % (auto) 0.0 VBG pH 7.44 H VBG pCO2 33 VBG pO2 59 VBG HCO3 22 VBG O2 Saturation 89.0 VBG Base Excess -0.6 Sodium 151 H Potassium 4.1 Chloride 117 H Carbon Dioxide 21 L Anion Gap 17 BUN 30 H Creatinine 1.43 H Estim Creat Clear Calc 56.2 Estimated GFR 49 POC Glucose Random Glucose 158 H Calcium 9.1 Phosphorus 3.9 Magnesium 1.8 Albumin 3.6 Fld Lyme DNA (PCR) ANUP Virus DNA Rpt Status Not Detected Lyme Disease DNA (PCR) NOT DETECTED 01/14/24 01/14/24 06:17 12:25 WBC RBC Hgb Hct MCV MCH MCHC RDW Plt Count MPV Immature Gran % (Auto) Neut % (Auto) Lymph % (Auto) [place] % (Auto) Eos % (Auto) Baso % (Auto) Lymph # (Auto) [place] # (Auto) Eos # (Auto) Baso # (Auto) Abs Immat Gran (auto) Absolute Neuts (auto) Absolute Nucleated RBC Nucleated RBC % (auto) VBG pH VBG pCO2 VBG pO2 VBG HCO3 VBG O2 Saturation VBG Base Excess Sodium Potassium Chloride Carbon Dioxide Anion Gap BUN Creatinine Estim Creat Clear Calc Estimated GFR POC Glucose 149 H 138 H Random Glucose Calcium Phosphorus Magnesium Albumin Fld Lyme DNA (PCR) ANUP Virus DNA Rpt Status Lyme Disease DNA (PCR) Microbiology Microbiology Results: Microbiology 01/09/24 09:09 Blood - Venous Blood Culture - Final No growth after 5 days. 01/09/24 08:50 Blood - Venous Blood Culture - Final No growth after 5 days. 01/13/24 15:40 Tracheal Aspirate Gram Stain - Final 01/13/24 15:40 Tracheal Aspirate Sputum Culture - Preliminary No growth to date. 01/11/24 11:24 Cerebrospinal Fluid Gram Stain - Final 01/11/24 11:24 Cerebrospinal Fluid CSF Examination - Final 01/11/24 11:24 Cerebrospinal Fluid Fluid Description - Final 01/11/24 11:24 Cerebrospinal Fluid CSF Culture - Preliminary No growth after 2 days 01/09/24 Unknown Urine Catheterized - Gregg Catheter Urine Culture - Final No growth. Progress Note: A&P Assessment and plan (1) Status epilepticus: Status: Acute (2) Pyelonephritis: Status: Acute (3) Seizure: Status: Acute (4) Acute UTI: Status: Acute (5) DYLAN (acute kidney injury): Status: Acute (6) Bladder spasm: Status: Acute Plan Neuro: Acute encephalopathy secondary to status epilepticus, currently is improving. Had episodes of agitation along with hypertension and tachycardia overnight so was restarted Precedex initially but continued to have hypertension and tachycardia so propofol was added. He also received multiple pushes of Versed and fentanyl earlier this morning. We will taper off propofol for weaning from ventilator, continue Precedex and slowly wean On p.o. Keppra 1 g b.i.d.. Keppra level done previously was slightly higher; the level was drawn around 13:00 and he had received a dose at 09:00. Trough levels drawn this morning, pending results Continue baclofen pump- confirmed with the tech that baclofen pump is working, on p.o. baclofen 5 mg t.i.d (at home he is on 10 mg TID of baclofen on top of the pump). MRI of the brain did not show any acute intracranial pathology Lumbar puncture shows normal cell count and normal sugars, protein slightly elevated Close neurological status monitoring in the ICU every hour Cardiac: Blood pressure stable Respiratory: Currently on ventilator support secondary to status epilepticus leading to poor respiratory efforts On PRVC mode FiO2 40%, PEEP 5, TV 400, RR 20; patient has been switched to pressure support trials this morning, failed pressor support trials yesterday due to poor mental status. Patient has a better mental status this morning, weaning trials very done and he did well so patient is extubated at 13:00. We will closely monitor his respiratory status for another 24 hours GI: Hold tube feeds for extubation Renal: Acute kidney injury possibly secondary to pyelonephritis, bedside ultrasound to evaluate the fluid status showed normal sized IVC, normal-sized RV and normal LV systolic function Baseline creatinine normal, creatinine is trending down for the past 2 days. We will closely monitor I's and O's Avoid nephrotoxic medications Hypernatremia: Sodium increased up to 151 Overall fluid balance net even We will run D5 water at 100 cc/hour He is going to be NPO for extubation so we will not do free water flushes Heme: Chronic anemia, closely monitor H&H, transfuse for hemoglobin less than 7 grams/deciliter Endocrine: Blood sugars under control Sliding scale insulin as needed Infectious disease: Pancultures negative so far On meropenem as the patient has evidence of pyelonephritis on CT abdomen and has a history of ESBL Klebsiella Musculoskeletal: Decubitus ulcer prevention protocol Lines: Peripheral zone Prophylaxis: Heparin, pantoprazole Patient has multiple organ failures including acute encephalopathy, acute hypoxemic respiratory failure, acute kidney injury. Critical care time spent is about 45 minutes on ventilator management, ventilator setting changes, weaning from ventilator, postextubation care, close neurological status monitoring and this time is excluding any procedural times. Quality Stroke Does the patient have a stroke diagnosis?: No VTE Prior VTE?: No VTE Risk Level:: Medical - moderate - high VTE Device Contraindication: N/A - Device Ordered VTE Drug Contraindication: N/A - Med Ordered
[2024-01-14 15:58] LABS: VDRL Qualitative CSF Nonreactive (Nonreactive)
[2024-01-14 18:00] LABS: Glucose, Whole Blood 113 mg/dL (60-115)
[2024-01-14] MEDS: Dextrose 5 % 1,000 ML 100 ML IVCONT (18:32)
[2024-01-14] MEDS: levETIRAcetam in NaCl (iso-os) 1,000 MG/100 ML PIGGYBACK 400 MG IV (19:47)
[2024-01-15] VITALS (15 sets, daily range): BP systolic 125–181; BP diastolic 47–78; PULSE 61–82; RESP 12–20; TEMP 36.1–37.1; O2SAT 96–98; BMI 28.0
[2024-01-15 01:08] LABS: Glucose, Whole Blood 103 mg/dL (60-115)
[2024-01-15] MEDS: Dextrose 5 % 1,000 ML 100 ML IVCONT (04:28)
[2024-01-15] MEDS: Chlorhexidine Gluc Oral Rinse 15 ML MOUTHWASH BUCCAL (04:28)
[2024-01-15 05:32] LABS: MANUAL DIFF FLAG NO
[2024-01-15 05:33] LABS: Basophils Percent Auto 0.3 % (0-2); Eosinophils Absolute Auto 0.2 X10*3/uL (0.0-0.4); Hematocrit 27.6 % (42.0-52.0); Hemoglobin 8.6 g/dl (14.0-18.0); Imm Gran Abs Auto 0.02 X10*3/uL (0.00-0.03); Imm Gran Pct Auto 0.3 % (0.0-0.4); Lymphocytes Absolute Auto 1.2 X10*3/uL (1.2-4.9); Lymphocytes Percent Auto 20.4 % (20-40); Mean Corpuscular HGB Conc 31.2 g/dl (31.0-36.0); Mean Corpuscular Hemoglobin 27.2 pg (27.0-33.0); Mean Corpuscular Volume 87.3 fL (80.0-98.0); Mean Platelet Volume 9.7 fL (9.4-12.4); Monocytes Absolute Auto 0.3 X10*3/uL (0.1-1.2); Monocytes Percent Auto 5.7 % (2-11); Neutrophils Absolute Auto 4.2 x10*3/uL (2.0-8.3); Neutrophils Percent Auto 69.3 % (45-73); Platelet Count 200 X10*3/uL (160-400); Red Blood Count 3.16 X10*6/uL (4.60-5.80); Red Cell Distribution Width 18.2 % (11.0-16.0)
[2024-01-15 05:48] LABS: Anion Gap 15 (12-20); Blood Urea Nitrogen 28 mg/dL (9-16); Carbon Dioxide 22 mmol/L (22-29); Chloride 114 mmol/L (96-108); Estimated Glomerular Filt Rate > 60; Glucose Random 110 mg/dL (60-115); Magnesium 1.5 mg/dL (1.6-2.6); Phosphorus 3.2 mg/dL (2.7-4.5); Potassium 3.8 mmol/L (3.3-5.1); Sodium 147 mmol/L (135-145)
[2024-01-15] MEDS: Pantoprazole Sodium 40 MG/10 ML VIAL IVPUSH (06:11)
[2024-01-15] MEDS: Magnesium Sulfate/H2O 2 GM/50 ML PIGGYBACK IV (06:11)
[2024-01-15] MEDS: 0.9 % Sodium Chloride Flush 3 ML SYRINGE IVFLUSH ×3 (08:29→22:09)
[2024-01-15] MEDS: levETIRAcetam Oral Soln 500 MG/5 ML 1000 MG PO ×2 (09:26→22:06)
--- NOTE | 2024-01-15 09:28 | MHC.CLN ---
F/U PT EXTUBATED LINE SERVICE TECHNICIAN EVAL PENDING FOR APPROPRIATE DIET CONSISTENCY CURRENTLY NPO PT WITH INCREASED NUTRITION RISK R/T PRESSURE INJURY WHEN DIET TO ADVANCE; RECOMMEND HIGH PROTEIN SUPPLEMENT TO PROMOTE WOUND HEALING FOLLOWING WITH TEAM FOR DIET ADVANCEMENT
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
[2024-01-15] MEDS: levoFLOXacin 750 MG TABLET PO (13:11)
[2024-01-15] MEDS: Fluconazole 100 MG TABLET PO (13:11)
[2024-01-15] MEDS: Heparin Sodium,Porcine 5,000 UNIT/ML VIAL 5000 UNIT SUBCUT ×2 (13:11→22:08)
--- NOTE | 2024-01-15 14:41 | MHC.CM.PN ---
Pt will transfer out of ICU to [facility] today: Call placed to pt's Workman's Comp RN Consuelo FIELD at [phone] to inform her of the transfer for assistance w/discharge planning needs. Message left requesting a callback. Pt resides at home w/[employer] and all necessary DME. The goal is for a return to home. No additional referrals for STR or skilled RN visits have been made pending discussion with Consuelo. Pt will need BLS to return to home. [facility] to follow
--- NOTE | 2024-01-15 17:07 | MHC.SL.SWA ---
Speech Pathologist Impression: Risk of Aspiration, Oropharyngeal Dysphagia Risk of Aspiration Due to: Medically Fragile Hx of Recent Extubation Dysphasia Diet Status: Start on NDD2/HTL Liquid Consistency and Strategies for Safe Swallow: Liquid Intake Recommendation: Honey Thick Liquid Intake Strategies: Small Sips No Straws Liquids by Teaspoon Only Solid Food Consistency: Dietary Recommendations: Grnd/Mech Altered (NDD2) Additional Modifications to Solid Foods: Mildly oral phase with presence of oral residue on trials of solids. Patient tolerated softer solids without difficulty. Patient exhibited no overt s/s of aspiration on first few sips of water by teaspoon, but had coughing episode when drinking from a straw. Patient was fearful and refused to try more liquids, including thickened liquids, despite reassurance from [facility]. [facility] discussed with Dr. De Jseus. Recommend GROUND/MECHANICALLY SOFT solids (NDD2), per Dr. De Jesus, start on HONEY THICK by teaspoon as a precaution, pills to be CRUSHED in PUREE. Strict aspiration precautions apply. Patient will need 1:1 feed, monitor closely, if any difficulties are observed with this diet, downgrade to NPO and [facility] will repeat assessment. Oral Medication Intake: Crushed with Puree Please contact the pharmacy regarding appropriate crushable or liquid drug formulations that are available whenever modified delivery is recommended. Compensatory Strategies and Precautions to be Taken for Safe Swallow: Sitting Upright (90 deg) No Straw Liquids from Spoon Small Bites and Sips Alternate Liquids/Solids Rate of Ingestion Change Oral Check Avoid Specific Foods Supervision While Eating and Drinking for Safe Swallow: Total Assistance (1:1) Foods to Avoid: Mixed consistencies, hard tough to chew solids Swallowing Recommended Treatments: Compens. Strategy Educat. Recommendation for Speech: Inpatient Speech Therapy Comment: [facility] will continue to follow to monitor patient's tolerance of modified diet, re-assess for potential upgrade/feeding needs. Frequency/Duration: PRN M-F Date Range for Service Req: Timeline to reassess: Balance Staff Staker Clinican/Clinical Fellow: No Supervisory Statement: I have reviewed and agree with the student/clinical fellow's documentation: N/A Speech Language Pathologist: Pamela Peralta M.A., [facility]
[2024-01-15] MEDS: Ascorbic Acid 250 MG TABLET PO (22:06)
[2024-01-15] MEDS: Simethicone 80 MG TAB.CHEW PO (22:06)
[2024-01-15] MEDS: Docusate Sodium 100 MG CAPSULE PO (22:06)
[2024-01-15] MEDS: Omeprazole 20 MG CAPSULE.DR PO (22:06)
[2024-01-15] MEDS: vancomycin HCL 125 MG CAPSULE PO (22:07)
[2024-01-15] MEDS: oxyBUTYnin chloride ER 5 MG TAB.ER.24 PO (22:07)
[2024-01-15] MEDS: Methenamine Hippurate 1 GM TABLET PO (22:08)
[2024-01-16] VITALS (8 sets, daily range): BP systolic 120–176; BP diastolic 58–80; PULSE 63–74; RESP 18–20; TEMP 36.4–37; O2SAT 94–98; BMI 28.9
[2024-01-16 06:17] LABS: MANUAL DIFF FLAG NO
[2024-01-16 06:23] LABS: Basophils Percent Auto 0.6 % (0-2); Eosinophils Absolute Auto 0.3 X10*3/uL (0.0-0.4); Eosinophils Percent Auto 5.1 % (0-4); Hematocrit 26.8 % (42.0-52.0); Hemoglobin 8.3 g/dl (14.0-18.0); Imm Gran Abs Auto 0.02 X10*3/uL (0.00-0.03); Imm Gran Pct Auto 0.4 % (0.0-0.4); Lymphocytes Absolute Auto 1.3 X10*3/uL (1.2-4.9); Lymphocytes Percent Auto 25.9 % (20-40); Mean Corpuscular Hemoglobin 26.8 pg (27.0-33.0); Mean Corpuscular Volume 86.5 fL (80.0-98.0); Mean Platelet Volume 9.1 fL (9.4-12.4); Monocytes Absolute Auto 0.2 X10*3/uL (0.1-1.2); Monocytes Percent Auto 4.5 % (2-11); Neutrophils Absolute Auto 3.1 x10*3/uL (2.0-8.3); Neutrophils Percent Auto 63.5 % (45-73); Platelet Count 200 X10*3/uL (160-400); Red Cell Distribution Width 17.4 % (11.0-16.0); White Blood Count 4.9 X10*3/uL (4.8-10.8)
[2024-01-16 06:25] LABS: Venous Blood Gas Refer to POC result
[2024-01-16 06:26] LABS: VBG Base Excess 5.9 mmol/L; VBG HCO3 29 mmol/L (22-26); VBG pCO2 40 mmHg; VBG pH 7.47 (7.32-7.43); VBG pO2 71 mmHg
[2024-01-16 06:50] LABS: Alanine Aminotransferase 10 U/L (0-40); Albumin Level 3.5 g/dL (3.5-5.0); Anion Gap 12 (12-20); Aspartate Amino Transferase 23 U/L (5-37); Bilirubin Total 0.3 mg/dL (0.0-1.0); Blood Urea Nitrogen 24 mg/dL (9-16); Calcium 9.4 mg/dL (8.4-10.2); Carbon Dioxide 27 mmol/L (22-29); Chloride 114 mmol/L (96-108); Creatinine Clr Calc Pharmacy 87.8; Estimated Glomerular Filt Rate > 60; Glucose Random 95 mg/dL (60-115); Magnesium 1.6 mg/dL (1.6-2.6); Phosphorus 3.1 mg/dL (2.7-4.5); Potassium 3.8 mmol/L (3.3-5.1); Sodium 149 mmol/L (135-145); Total Protein 7.5 g/dL (6.5-8.0)
[2024-01-16 07:09] LABS: Alkaline Phosphatase 67 U/L (39-117)
[2024-01-16] MEDS: levETIRAcetam Oral Soln 500 MG/5 ML 1000 MG PO ×2 (08:07→21:14)
[2024-01-16] MEDS: 0.9 % Sodium Chloride Flush 3 ML SYRINGE IVFLUSH ×2 (08:07→16:52)
[2024-01-16] MEDS: Methenamine Hippurate 1 GM TABLET PO ×2 (08:08→21:15)
[2024-01-16] MEDS: Ferrous Sulfate 324 MG TABLET.DR PO (08:08)
[2024-01-16] MEDS: Ascorbic Acid 250 MG TABLET PO ×2 (08:08→21:15)
[2024-01-16] MEDS: vancomycin HCL 125 MG CAPSULE PO ×2 (08:08→21:14)
[2024-01-16] MEDS: Fluconazole 100 MG TABLET PO (08:08)
[2024-01-16] MEDS: Escitalopram Oxalate 10 MG TABLET PO (08:08)
[2024-01-16] MEDS: Multivitamin TABLET 1 TAB PO (08:08)
[2024-01-16] MEDS: Simethicone 80 MG TAB.CHEW PO ×2 (08:09→21:15)
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
[2024-01-16] MEDS: Dextrose 5 % 1,000 ML 100 ML IVCONT ×2 (11:29→22:57)
--- NOTE | 2024-01-16 11:30 | MHC.SPEECHCO ---
Pt declined offerings of food and liquid. Agreeable to try lunch.
--- NOTE | 2024-01-16 12:23 | MHC.CM.PN ---
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 RAISA AWARE NEURO IS PENDING AND CM DOES NOT HAVE A DC DATE AT THIS TIME. CM WILL CONT TO FOLLOW DC NEEDS.
--- NOTE | 2024-01-16 16:10 | HO.WOUND ---
Wound Consult: Follow up 73yr old? male admitted to [facility] on 01/09/24 - See progress notes and H&P for detailed history.? Wound consult follow up for Sacral Wound POA.? Patient was admitted to the ICU unit for care and since transitioned to [facility].? Sacrococcygeal (Sacrum, coccyx and buttock) on Admission 01/09/24 01/16/24 Sacrum and Coccyx Etiology: ?Unstageable Pressure Injury ?Present on Admission Measurements: 4cm x 6cm x 0.8cm Wound Bed: Full thickness tissue loss, red moist tissue, improving yellow moist slough Right Sacrum resolving almost healed - Left Sacrum improving - coccyx remains with adherent yellow slough Drainage / Odor: appears yellow faust Edges: ? irregular Emely wound: ?Perirectal area noted for suspected MASD - blanchable purple pigmentation noted Goals of Treatment: ? Off Load Pressure and Provider to consider Santly to necrotic tissue wound beds for enzymatic debridement and foam dressing to protect from friction and aid in off loading pressure Pressure Injury measures currently in place, LINO mattress, wedges for off loading, Q 2 hrs turns, heels off loaded with pillows, barrier cream in place and nutrition following. Recommendations: 1. Turn and Reposition every 2 hours and as needed for patient comfort.? Use pillows or wedges to support off loading positions. 2. Off Load all bony prominences with use of pillows and heel boots if needed.? Apply Preventative foams where needed. ? 3. Monitor for incontinence and moisture control, use barrier creams when needed for prevention and treatment. 4. Provide adequate and supplemental nutrition.? Nutrition following. 5. Continue low air loss mattress. 6. When applicable maintain blood glucose levels per Providers order. 7. Sacrum - Off Load Pressure? - Cleanse with PH balance spray or wipes, and irrigate wound bed with NS, pat dry. ?Apply thin layer of Triad to periwound. ?Apply thick layer of Santyl to wound beds, cover / pack with saline moist gauze. Cover with ABD pad. Change Daily. Re-consult wound care Nurse for wound deterioration or wound changes.
[2024-01-16] MEDS: Heparin Sodium,Porcine 5,000 UNIT/ML VIAL 5000 UNIT SUBCUT (21:13)
[2024-01-16] MEDS: oxyBUTYnin chloride ER 5 MG TAB.ER.24 PO (21:17)
[2024-01-16 23:14] LABS: Glucose, Whole Blood 111 mg/dL (60-115)
[2024-01-17] VITALS (20 sets, daily range): BP systolic 76–170; BP diastolic 39–97; PULSE 64–153; RESP 14–26; TEMP 36.3–37.6; O2SAT 95–98; BMI 29.8
--- NOTE | 2024-01-17 | ECG_ITS ---
Test Reason : tachycardia Blood Pressure : / mmHG Vent. Rate : 143 BPM Atrial Rate : 000 BPM P-R Int : 000 ms QRS Dur : 084 ms QT Int : 316 ms P-R-T Axes : 000 031 260 degrees QTc Int : 487 ms Atrial fibrillation with rapid ventricular response Marked ST abnormality, possible inferior subendocardial injury Marked ST abnormality, possible anterolateral subendocardial injury Abnormal ECG When compared with ECG of 14-JAN-2024 01:04, Atrial fibrillation has replaced Sinus rhythm Vent. rate has increased BY [address] now depressed in Inferior leads ST now depressed in Anterolateral leads Referred By: Miah Michel Electronically Signed By:MO NIÑO
[2024-01-17] MEDS: Heparin Sodium,Porcine 5,000 UNIT/ML VIAL 5000 UNIT SUBCUT ×2 (05:43→14:37)
[2024-01-17] MEDS: Omeprazole 20 MG CAPSULE.DR PO (05:43)
--- NOTE | 2024-01-17 10:30 | MHC.CM.PN ---
EMR REVIEWED, PT ICU STEPDOWN, PER HOSPITALIST PT IMPROVING, ANTIC DC 1-2 DAYS, PLAN CONT'S TO BE FOR PT TO RETURN HOME W/24HR CARE, CM WILL CONT TO FOLLOW DC NEEDS.
[2024-01-17] MEDS: Methenamine Hippurate 1 GM TABLET PO ×2 (10:53→21:07)
[2024-01-17] MEDS: vancomycin HCL 125 MG CAPSULE PO ×2 (10:53→21:07)
[2024-01-17] MEDS: levETIRAcetam Oral Soln 500 MG/5 ML 1000 MG PO ×2 (10:53→21:07)
[2024-01-17] MEDS: Ascorbic Acid 250 MG TABLET PO (10:53)
[2024-01-17] MEDS: Ferrous Sulfate 324 MG TABLET.DR PO (10:54)
[2024-01-17] MEDS: 0.9 % Sodium Chloride Flush 3 ML SYRINGE IVFLUSH ×2 (10:54→22:10)
[2024-01-17] MEDS: Multivitamin TABLET 1 TAB PO (10:54)
[2024-01-17] MEDS: Fluconazole 100 MG TABLET PO (10:54)
[2024-01-17] MEDS: Escitalopram Oxalate 10 MG TABLET PO (10:54)
[2024-01-17] MEDS: Simethicone 80 MG TAB.CHEW PO ×2 (10:56→21:07)
[2024-01-17] MEDS: Collagenase Clostridium Hist. 30 GM TUBE 1 APPL TOPICAL (11:14)
[2024-01-17] MEDS: Nystatin Powder 15 GM BOTTLE 1 APPL TOPICAL ×2 (11:15→21:07)
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
[2024-01-17 11:57] LABS: Hematocrit 26.9 % (42.0-52.0); Hemoglobin 8.4 g/dl (14.0-18.0); Mean Corpuscular HGB Conc 31.2 g/dl (31.0-36.0); Mean Corpuscular Hemoglobin 26.8 pg (27.0-33.0); Mean Corpuscular Volume 85.7 fL (80.0-98.0); Mean Platelet Volume 9.9 fL (9.4-12.4); Platelet Count 177 X10*3/uL (160-400); Red Blood Count 3.14 X10*6/uL (4.60-5.80); Red Cell Distribution Width 16.8 % (11.0-16.0); White Blood Count 6.2 X10*3/uL (4.8-10.8)
--- NOTE | 2024-01-17 12:05 | MHC.CLN ---
F/U PT TRANSFERRED TO MEDICAL FLOOR PT ATE PUDDING DIET ADVANCED TO GRD M/S WITH HT LIQ-APPROPRIATE PT WITH INCREASED NUTRITION RISK R/T PRESSURE INJURY RECOMMEND ADDING ENSURE MAX BID TO PROMOTE WOUND HEALING SUPP TO PROVIDE 300KCALS, 60G PROTEIN MONITOR PO INTAKE AND ENCOURAGE SUPPLEMENT
[2024-01-17 12:08] LABS: Anion Gap 14 (12-20); Blood Urea Nitrogen 18 mg/dL (9-16); Calcium 9.2 mg/dL (8.4-10.2); Carbon Dioxide 25 mmol/L (22-29); Chloride 109 mmol/L (96-108); Creatinine Clr Calc Pharmacy 104.9; Estimated Glomerular Filt Rate > 60; Glucose Random 99 mg/dL (60-115); Potassium 3.4 mmol/L (3.3-5.1); Sodium 145 mmol/L (135-145)
--- NOTE | 2024-01-17 13:36 | MHC.SLORD ---
Speech Language Pathology Order Status: Pt consistently refused PO w/ BACK TENDER FOURDRINIER on this date, despite encouragement. BACK TENDER FOURDRINIER explained desire to trial thin liquids, to which patient refused. Pt stating he didn't want anything sweet, was assured by BACK TENDER FOURDRINIER that meat and potato would not be sweet, pt continued to refuse. Per nursing, pt tolerated limited puree solids and honey thick liquids this morning.
[2024-01-17] MEDS: Metoprolol Tartrate 5 MG/5 ML VIAL IVPUSH (14:30)
[2024-01-17 14:40] LABS: Glucose, Whole Blood 94 mg/dL (60-115)
[2024-01-17] MEDS: dilTIAZem HCL 50 MG/10 ML VIAL IVPUSH (14:43)
[2024-01-17] MEDS: 0.9 % Sodium Chloride 500 ML IV ×2 (14:47→18:24)
[2024-01-17] MEDS: dilTIAZem HCL 125 MG in 0.9 % Sodium Chloride 100 ML IVCONT (14:50)
[2024-01-17] MEDS: Digoxin 0.5 MG/2 ML AMPUL 0.25 MG IVPUSH ×2 (15:07→21:46)
[2024-01-17 15:22] LABS: Magnesium 1.6 mg/dL (1.6-2.6)
[2024-01-17] MEDS: Piperacillin Sodium/Tazobactam 4.5 GM in 0.9 % Sodium Chloride 100 ML IV ×2 (15:30→22:10)
--- NOTE | 2024-01-17 15:37 | P.CONCA_ITS ---
History of Present Illness History of Present Illness Date of Service: 01/17/24 Requesting physician: Miah Michel Chief complaint: Afib with RVR Narrative: 73-year-old gentleman who has quadriplegia and recently left the intensive care unit after being in status epilepticus and was started on Keppra. He also was being treated for Pseudomonas UTI. He developed AFib with a RVR today. The patient is somewhat confused currently. He is denying any active symptoms. Appears quite comfortable laying in bed. He was given IV metoprolol followed by IV Cardizem and had some hypotension. He was getting D5W to correct his sodium because he has not been drinking and eating well. along with caregiver at bedside. Apparently patient had AFib in the past and was on Eliquis for that indication. He had hematuria over the last month and has not been taking Eliquis. [facility] Past Medical History Medical History Chronic hypercapnic respiratory failure Restrictive lung mechanics due to neuromuscular disease Paraplegia LATANYA on CPAP CAD (coronary artery disease) Paroxysmal atrial fibrillation HTN (hypertension) Family History Family History Father Diabetes HTN (hypertension) CVD (cardiovascular disease) Mother CVD (cardiovascular disease) Diabetes HTN (hypertension) Brother CVD (cardiovascular disease) Diabetes HTN (hypertension) Surgical History Surgical History History of carpal tunnel release Hx of colonoscopy Hx of rotator cuff surgery History of hip surgery Social History Social History Household Members: Spouse Housing: House Do you presently have visiting nurse or other home services: Yes (visiting nurses, cnas daily) Alcohol intake: former 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 Tobacco Use Status: Former Tobacco user Tobacco use type: Cigarette Years Smoked: 20 years Advance Directives Date on File: 06/08/23 service: No Meds Allergies Allergy/AdvReac Type Severity Reaction Status Date / Time No Known Allergies Allergy Verified 01/09/24 08:53 [No Known Allergies*] Active Medications: Current Medications Acetaminophen (Acetaminophen 325 Mg Tablet) 650 mg PO Q6H PRN PRN Reason: Mild Pain (Scale Score 1-4) Al Hydroxide/Mg Hydroxide (Magnesium Hydrox/Alum Hydrox 30 Ml Oral.Susp) 5 ml PO Q4H PRN PRN Reason: Dyspepsia Ascorbic Acid (Ascorbic Acid 250 Mg Tablet) 250 mg PO BID [facility] Last Admin: 01/17/24 10:53 Dose: 250 mg Baclofen (Baclofen 10 Mg Tablet) 5 mg PO TID PRN PRN Reason: spasms Betamethasone Dipropion Augmented (Betamethasone Dip Aug 0.05% Cr 15 Gm Tube) 1 appl TOPICAL BID [facility] Last Admin: 01/17/24 00:22 Dose: Not Given Collagenase (Collagenase Clostridium Hist. 30 Gm Tube) 1 appl TOPICAL DAILY [facility]; Protocol Last Admin: 01/17/24 11:14 Dose: 1 appl Docusate Sodium (Docusate Sodium 100 Mg Capsule) 100 mg PO BID PRN PRN Reason: constipation Last Admin: 01/15/24 22:06 Dose: 100 mg Escitalopram Oxalate (Escitalopram Oxalate 10 Mg Tablet) 10 mg PO DAILY [facility] Last Admin: 01/17/24 10:54 Dose: 10 mg Ferrous Sulfate (Ferrous Sulfate 324 Mg Tablet.Dr) 324 mg PO DAILY [facility] Last Admin: 01/17/24 10:54 Dose: 324 mg Fluconazole (Fluconazole 100 Mg Tablet) 100 mg PO DAILY [facility] Last Admin: 01/17/24 10:54 Dose: 100 mg Gabapentin (Gabapentin 300 Mg Capsule) 300 mg PO TID [facility] Heparin Sodium (Porcine) (Heparin Sodium,Porcine 5,000 Unit/Ml Vial) 5,000 unit SUBCUT Q8H [facility] Last Admin: 01/17/24 14:37 Dose: 5,000 unit Sodium Chloride (Ns) 500 mls @ 500 mls/hr IV .Q1H [facility] Stop: 01/17/24 15:44 Last Admin: 01/17/24 14:47 Dose: 500 mls/hr Diltiazem HCl 125 mg/ Sodium (Chloride) 125 mls @ 0 mls/hr IVCONT .Q0M [facility]; Protocol Last Titration: 01/17/24 14:55 Dose: 0 mg/hr, 0 mls/hr Piperacillin Sod/Tazobactam (Sod 4.5 gm/ Sodium Chloride) 100 mls @ 200 mls/hr IV Q6H [facility] Last Admin: 01/17/24 15:30 Dose: 200 mls/hr Levetiracetam (Levetiracetam Oral Soln 500 Mg/5 Ml) 1,000 mg PO BID [facility] Last Admin: 01/17/24 10:53 Dose: 1,000 mg Methenamine Hippurate (Methenamine Hippurate 1 Gm Tablet) 1 gm PO BID [facility] Last Admin: 01/17/24 10:53 Dose: 1 gm Midodrine (Midodrine Hcl 5 Mg Tablet) 5 mg PO BID@0900,1500 [facility] Last Admin: 01/17/24 15:29 Dose: Not Given Multivitamins/Vitamin C (Multivitamin Tablet) 1 tab PO DAILY [facility] Last Admin: 01/17/24 10:54 Dose: 1 tab Nystatin (Nystatin Powder 15 Gm Bottle) 1 appl TOPICAL TID [facility]; Protocol Last Admin: 01/17/24 11:15 Dose: 1 appl Omeprazole (Omeprazole 20 Mg Capsule.Dr) 20 mg PO BID@0630,1630 [facility] Last Admin: 01/17/24 05:43 Dose: 20 mg Oxybutynin Chloride (Oxybutynin Chloride Er 5 Mg Tab.Er.24) 5 mg PO BEDTIME [facility] Last Admin: 01/16/24 21:17 Dose: 5 mg Simethicone (Simethicone 80 Mg Tab.Chew) 80 mg PO TID [facility] Last Admin: 01/17/24 10:56 Dose: 80 mg Sodium Chloride (0.9 % Sodium Chloride Flush 3 Ml Syringe) 3 ml IVFLUSH QSHIFT [facility] Last Admin: 01/17/24 10:54 Dose: 3 ml Vancomycin HCl (Vancomycin Hcl 125 Mg Capsule) 125 mg PO BID [facility] Last Admin: 01/17/24 10:53 Dose: 125 mg Home Medications ?Medication ?Instructions ?Recorded ?Confirmed ?Last Taken ?Type CPAP (CPAP Machine/Device) 07/19/21 11/14/23 11/13/23 History apixaban 5 mg tablet (Eliquis) 5 mg PO BID 07/19/21 01/09/24 11/13/23 History ascorbic acid (vitamin C) 250 mg 250 mg PO BID 07/19/21 01/09/24 11/13/23 History tablet pantoprazole 40 mg tablet,delayed 40 mg PO BID 07/19/21 01/09/24 11/13/23 History release gabapentin 300 mg capsule 300 mg PO TID 06/02/2601/09/24 11/13/23 History methenamine hippurate 1 gram tablet 1 g PO BID 01/27/22 01/09/24 11/13/23 History docusate sodium 100 mg capsule 100 mg PO BID PRN constipation 06/08/23 01/09/24 11/13/23 History escitalopram oxalate 10 mg tablet 10 mg PO DAILY 06/08/23 01/09/24 11/13/23 History multivitamin 1 tab PO DAILY 06/08/23 01/09/24 11/13/23 History baclofen 10 mg tablet 10 mg PO TID PRN Muscle Spasm 07/03/23 01/09/24 11/13/23 History acetaminophen 325 mg tablet 650 mg PO Q6H PRN Mild Pain (Scale 01/09/24 01/09/24 Unknown History Score 1-4) aluminum-magnesium hydroxide 200 5 ml PO Q4H PRN Dyspepsia 01/09/24 01/09/24 Unknown History mg-200 mg/5 mL oral suspension clobetasol 0.05 % topical cream 1 appl topical BID 01/09/24 01/09/24 Unknown History midodrine 5 mg tablet 5 mg PO BID@0900,1500 01/09/24 01/09/24 Unknown History nystatin 100,000 unit/gram topical 1 appl topical TID 01/09/24 01/09/24 Unknown History powder psyllium husk 0.4 gram capsule 2 g PO Q6H PRN Constipation 01/09/24 01/09/24 Unknown History simethicone 80 mg chewable tablet 80 mg PO TID 01/09/24 01/09/24 Unknown History vancomycin 125 mg capsule 125 mg PO QID 01/09/24 01/09/24 Unknown History Physical Exam 2 Vital Signs: Vital Signs: Last Vital Signs Temp 97.4 F 01/17/24 11:00 Pulse 149 H 01/17/24 14:50 Resp 20 01/17/24 11:00 BP 103/70 01/17/24 14:50 Pulse Ox 97 01/17/24 11:00 O2 Del Method Room Air 01/17/24 11:00 O2 Flow Rate 25 01/09/24 18:00 FiO2 21 01/14/24 12:00 BMI result Body Mass Index 29.8 GENERAL APPEARANCE: in no acute distress, quadriplegia with contractures. SKIN: no suspicious lesions, warm and dry. HEART: no murmurs, irregular rate and rhythm. Tachycardic. LUNGS: clear to auscultation bilaterally. ABDOMEN: soft, nontender. EXTREMITIES: no edema. PERIPHERAL PULSES: equal. NEUROLOGIC: Cardioplegic with contractures. Objective Labs and Meds 01/17/24 11:48 01/17/24 11:48 Lab results: Laboratory Results - last 24 hr 01/16/24 01/17/24 01/17/24 23:08 11:48 14:36 WBC 6.2 RBC 3.14 L Hgb 8.4 L Hct 26.9 L MCV 85.7 MCH 26.8 L MCHC 31.2 RDW 16.8 H Plt Count 177 MPV 9.9 Absolute Nucleated RBC 0.000 Nucleated RBC % (auto) 0.0 Sodium 145 Potassium 3.4 Chloride 109 H Carbon Dioxide 25 Anion Gap 14 BUN 18 H Creatinine 0.79 Estim Creat Clear Calc 104.9 Estimated GFR > 60 POC Glucose 111 94 Random Glucose 99 Calcium 9.2 Magnesium 1.6 Assessment and Plan (1) Paroxysmal atrial fibrillation: Status: Acute Plan [age] gentleman with known history of atrial fibrillation in the past for which he was on apixaban. Recent hematuria episodes and has been off Eliquis over the last month. Presented with status epilepticus and was in the intensive care unit and was started on Keppra. Also has metabolic derangements including hypernatremia and was getting D5W. Today he went into AFib with RVR. Completely asymptomatic currently. Not in heart failure. He has not tolerated IV Cardizem and metoprolol. I think Cardizem should not be used. He was given a digoxin load and I think we should continue loading him with digoxin 250 mcg every 6 hours x3. If he can consistently take oral metoprolol then he should be started on 25 mg 3 times a day of Lopressor. Alternatively can use 2.5 mg IV metoprolol for now. If systolic blood pressure less than 70 or symptomatic hypotension then midodrine can be used. Given the fact that he is off anticoagulation and can not take it consistently I would avoid cardioversion as much as possible. I have explained this to the patient's that cardioversion his high-risk due to stroke and currently we will conservatively manage him. Please check a rectal temperature. If fever then do sepsis workup. I think he should get 1 unit of blood. Thank you for allowing me to participate in the care of your patient. Please feel free to contact me if you have any questions. Procedures Date of Service Date of Service: 01/17/24
[2024-01-17 16:09] LABS: Hematocrit 24.4 % (42.0-52.0); Hemoglobin 7.4 g/dl (14.0-18.0); Mean Corpuscular HGB Conc 30.3 g/dl (31.0-36.0); Mean Corpuscular Volume 89.1 fL (80.0-98.0); Mean Platelet Volume 9.7 fL (9.4-12.4); Platelet Count 203 X10*3/uL (160-400); Red Blood Count 2.74 X10*6/uL (4.60-5.80); White Blood Count 6.4 X10*3/uL (4.8-10.8)
[2024-01-17 16:12] LABS: Lactic Acid 0.8 mmol/L (0.5-2.0)
--- NOTE | 2024-01-17 17:26 | PM.UROCN ---
History of Present Illness Consult details Consult date: 01/17/24 Narrative: CC: Hematuria with suprapubic tube catheter 73-year-old male with traumatic spinal cord injury and paraplegia Long-term chronic suprapubic tube - history of left ureteric stent for hydronephrosis Presented through emergency room with question of seizure Evaluation for possible pyelonephritis Current question regarding hematuria Current medications include heparin Highly likely that anticoagulation has caused mild hematuria Would continue with current suprapubic tube which should be changed every 3-4 weeks. Please check with patient when last change performed. Baseline continue with vitamin-C and methenamine Imaging - Left: The internal indwelling double-J stent is present on the left with some redundancy in both the kidneys as well as the bladder. A 1 cm stone is present in the mid left kidney. A benign left mid renal 4.0 cm Bosniak class I renal cyst is noted which requires no additional maging or follow up. No solid renal masses are seen. Right: There is mild dilatation of the right ureter and mild right sided hydronephrosis with some perinephric stranding and periureteral stranding. No nephrolithiasis or obstructing ureteral masses/stones are seen. Should follow-up with regular urologist after discharge Review of Systems Constitutional: Constitutional: Reports as per HPI and Reports no additional constitutional complaints Cardiovascular: Cardiovascular: Reports as per HPI and Reports no additional cardiovascular complaints Respiratory: Respiratory: Reports as per HPI and Reports no additional respiratory complaints Gastrointestinal: Gastrointestinal: Reports as per HPI and Reports no additional gastrointestinal complaints Genitourinary: Genitourinary: Reports as per HPI Musculoskeletal: Musculoskeletal: Reports no additional musculoskeletal complaints and Reports as per HPI Neurologic: Reports system reviewed and no additional complaints, except as documented and Reports as per HPI [facility] Past Medical History Medical History Chronic hypercapnic respiratory failure Restrictive lung mechanics due to neuromuscular disease Paraplegia LATANYA on CPAP CAD (coronary artery disease) Paroxysmal atrial fibrillation HTN (hypertension) Family History Family History Father Diabetes HTN (hypertension) CVD (cardiovascular disease) Mother CVD (cardiovascular disease) Diabetes HTN (hypertension) Brother CVD (cardiovascular disease) Diabetes HTN (hypertension) Surgical History Surgical History History of carpal tunnel release Hx of colonoscopy Hx of rotator cuff surgery History of hip surgery Social History Social History Household Members: Spouse Housing: House Do you presently have visiting nurse or other home services: Yes (visiting nurses, cnas daily) Alcohol intake: former 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 Tobacco Use Status: Former Tobacco user Tobacco use type: Cigarette Years Smoked: 20 years Advance Directives Date on File: 06/08/23 service: No Meds Allergies Allergy/AdvReac Type Severity Reaction Status Date / Time No Known Allergies Allergy Verified 01/09/24 08:53 [No Known Allergies*] Active Medications: Current Medications Acetaminophen (Acetaminophen 325 Mg Tablet) 650 mg PO Q6H PRN PRN Reason: Mild Pain (Scale Score 1-4) Al Hydroxide/Mg Hydroxide (Magnesium Hydrox/Alum Hydrox 30 Ml Oral.Susp) 5 ml PO Q4H PRN PRN Reason: Dyspepsia Ascorbic Acid (Ascorbic Acid 250 Mg Tablet) 250 mg PO BID [facility] Last Admin: 01/17/24 10:53 Dose: 250 mg Baclofen (Baclofen 10 Mg Tablet) 5 mg PO TID PRN PRN Reason: spasms Betamethasone Dipropion Augmented (Betamethasone Dip Aug 0.05% Cr 15 Gm Tube) 1 appl TOPICAL BID [facility] Last Admin: 01/17/24 00:22 Dose: Not Given Collagenase (Collagenase Clostridium Hist. 30 Gm Tube) 1 appl TOPICAL DAILY [facility]; Protocol Last Admin: 01/17/24 11:14 Dose: 1 appl Docusate Sodium (Docusate Sodium 100 Mg Capsule) 100 mg PO BID PRN PRN Reason: constipation Last Admin: 01/15/24 22:06 Dose: 100 mg Escitalopram Oxalate (Escitalopram Oxalate 10 Mg Tablet) 10 mg PO DAILY [facility] Last Admin: 01/17/24 10:54 Dose: 10 mg Ferrous Sulfate (Ferrous Sulfate 324 Mg Tablet.) 324 mg PO DAILY [facility] Last Admin: 01/17/24 10:54 Dose: 324 mg Fluconazole (Fluconazole 100 Mg Tablet) 100 mg PO DAILY [facility] Last Admin: 01/17/24 10:54 Dose: 100 mg Gabapentin (Gabapentin 300 Mg Capsule) 300 mg PO TID [facility] Heparin Sodium (Porcine) (Heparin Sodium,Porcine 5,000 Unit/Ml Vial) 5,000 unit SUBCUT Q8H [facility] Last Admin: 01/17/24 14:37 Dose: 5,000 unit Diltiazem HCl 125 mg/ Sodium (Chloride) 125 mls @ 0 mls/hr IVCONT .Q0M [facility]; Protocol Last Titration: 01/17/24 14:55 Dose: 0 mg/hr, 0 mls/hr Piperacillin Sod/Tazobactam (Sod 4.5 gm/ Sodium Chloride) 100 mls @ 200 mls/hr IV Q6H [facility] Last Admin: 01/17/24 15:30 Dose: 200 mls/hr Sodium Chloride (Ns) 100 mls @ 100 mls/hr IV ONCE ONE Stop: 01/17/24 17:49 Levetiracetam (Levetiracetam Oral Soln 500 Mg/5 Ml) 1,000 mg PO BID [facility] Last Admin: 01/17/24 10:53 Dose: 1,000 mg Methenamine Hippurate (Methenamine Hippurate 1 Gm Tablet) 1 gm PO BID [facility] Last Admin: 01/17/24 10:53 Dose: 1 gm Metoprolol Tartrate (Metoprolol Tartrate 5 Mg/5 Ml Vial) 2.5 mg IVPUSH Q6H [facility]; Protocol PRN Reason: Heart Rate > 110 Multivitamins/Vitamin C (Multivitamin Tablet) 1 tab PO DAILY [facility] Last Admin: 01/17/24 10:54 Dose: 1 tab Nystatin (Nystatin Powder 15 Gm Bottle) 1 appl TOPICAL TID [facility]; Protocol Last Admin: 01/17/24 11:15 Dose: 1 appl Omeprazole (Omeprazole 20 Mg Capsule.Dr) 20 mg PO BID@0630,1630 [facility] Last Admin: 01/17/24 05:43 Dose: 20 mg Oxybutynin Chloride (Oxybutynin Chloride Er 5 Mg Tab.Er.24) 5 mg PO BEDTIME [facility] Last Admin: 01/16/24 21:17 Dose: 5 mg Simethicone (Simethicone 80 Mg Tab.Chew) 80 mg PO TID [facility] Last Admin: 01/17/24 10:56 Dose: 80 mg Sodium Chloride (0.9 % Sodium Chloride Flush 3 Ml Syringe) 3 ml IVFLUSH QSHIFT [facility] Last Admin: 01/17/24 10:54 Dose: 3 ml Vancomycin HCl (Vancomycin Hcl 125 Mg Capsule) 125 mg PO BID [facility] Last Admin: 01/17/24 10:53 Dose: 125 mg Home Medications ?Medication ?Instructions ?Recorded ?Confirmed ?Last Taken ?Type CPAP (CPAP Machine/Device) 07/19/21 11/14/23 11/13/23 History apixaban 5 mg tablet (Eliquis) 5 mg PO BID 07/19/21 01/09/24 11/13/23 History ascorbic acid (vitamin C) 250 mg 250 mg PO BID 07/19/21 01/09/24 11/13/23 History tablet pantoprazole 40 mg tablet,delayed 40 mg PO BID 07/19/21 01/09/24 11/13/23 History release gabapentin 300 mg capsule 300 mg PO TID 10/15/21 01/09/24 11/13/23 History methenamine hippurate 1 gram tablet 1 g PO BID 01/27/22 01/09/24 11/13/23 History docusate sodium 100 mg capsule 100 mg PO BID PRN constipation 06/08/23 01/09/24 11/13/23 History escitalopram oxalate 10 mg tablet 10 mg PO DAILY 06/08/23 01/09/24 11/13/23 History multivitamin 1 tab PO DAILY 06/08/23 01/09/24 11/13/23 History baclofen 10 mg tablet 10 mg PO TID PRN Muscle Spasm 07/03/23 01/09/24 11/13/23 History acetaminophen 325 mg tablet 650 mg PO Q6H PRN Mild Pain (Scale 01/09/24 01/09/24 Unknown History Score 1-4) aluminum-magnesium hydroxide 200 5 ml PO Q4H PRN Dyspepsia 01/09/24 01/09/24 Unknown History mg-200 mg/5 mL oral suspension clobetasol 0.05 % topical cream 1 appl topical BID 01/09/24 01/09/24 Unknown History midodrine 5 mg tablet 5 mg PO BID@0900,1500 01/09/24 01/09/24 Unknown History nystatin 100,000 unit/gram topical 1 appl topical TID 01/09/24 01/09/24 Unknown History powder psyllium husk 0.4 gram capsule 2 g PO Q6H PRN Constipation 01/09/24 01/09/24 Unknown History simethicone 80 mg chewable tablet 80 mg PO TID 01/09/24 01/09/24 Unknown History vancomycin 125 mg capsule 125 mg PO QID 01/09/24 01/09/24 Unknown History Physical Exam Vital Signs: Vital Signs: Last Vital Signs Temp 97.4 F 01/17/24 11:00 Pulse 149 H 01/17/24 14:50 Resp 14 01/17/24 15:58 BP 103/70 01/17/24 14:50 Pulse Ox 96 01/17/24 15:58 O2 Del Method Room Air 01/17/24 15:58 O2 Flow Rate 25 01/09/24 18:00 FiO2 21 01/14/24 12:00 BMI result Body Mass Index 29.8 Const: General: cooperative, healthy appearing, comfortable and no acute distress Orientation/consciousness: patient oriented x3 HEENT: Face and sinus: Yes normal facial exam Mouth: moist mucous membranes Neck: Neck: Yes normal visual inspection, Yes full ROM and Yes trachea midline Chest: Chest palpation & inspection: normal inspection of the chest Resp: Effort & Inspection: normal respiratory effort, able to speak in complete sentences and no respiratory distress GI: Inspection: Yes normal to inspection Back/Spine/Pelvis: Cervical Spine: normal cervical lordosis Thoracic/Lumbar Spine: thoracic and lumbar spine normal to inspection Skin: General skin exam: no rashes or lesions noted Neuro: General: patient oriented x3, tone normal and moves all extremities Extrem: General: Yes normal to inspection and Yes capillary refill normal Results Labs 01/17/24 15:51 01/17/24 11:48 Labs: Abnormal lab results 01/17/24 01/17/24 Range/Units 11:48 15:51 RBC 3.14 L 2.74 L (4.60-5.80) X10*6/uL Hgb 8.4 L 7.4 L (14.0-18.0) g/dl Hct 26.9 L 24.4 L (42.0-52.0) % MCH 26.8 L (27.0-33.0) pg MCHC 30.3 L (31.0-36.0) g/dl RDW 16.8 H 17.0 H (11.0-16.0) % Chloride 109 H (96-108) mmol/L BUN 18 H (9-16) mg/dL Short CBC 01/17/24 01/17/24 Range/Units 11:48 15:51 WBC 6.2 6.4 (4.8-10.8) X10*3/uL Hgb 8.4 L 7.4 L (14.0-18.0) g/dl Hct 26.9 L 24.4 L (42.0-52.0) % Plt Count 177 203 (160-400) X10*3/uL BMP 01/17/24 11:48 Sodium 145 Potassium 3.4 Chloride 109 H Carbon Dioxide 25 BUN 18 H Creatinine 0.79 Calcium 9.2 Urine 01/09/24 Range/Units 10:03 Urine Color Yellow Urine Appearance Turbid Urine pH 6.5 (5.0-9.0) Ur Specific [place] 1.010 (1.005-1.025) Urine Protein 300 (3+) H (Neg-Trace) mg/dL Urine Glucose (UA) Negative (Negative) mg/dL All other labs normal. Assessment and Plan (1) Gross hematuria: Status: Acute (2) Chronic suprapubic catheter: Status: Acute Plan Watch anticoagulation with hematuria Continue appropriate bladder suppression Follow-up with outpatient urologist regarding left indwelling stent management Procedures Date of Service Date of Service: 01/17/24
[2024-01-17 17:31] LABS: Alanine Aminotransferase 14 U/L (0-40); Albumin Level 3.2 g/dL (3.5-5.0); Alkaline Phosphatase 66 U/L (39-117); Anion Gap 15 (12-20); Aspartate Amino Transferase 24 U/L (5-37); Bilirubin Direct 0.1 mg/dL (0.0-0.5); Bilirubin Total 0.4 mg/dL (0.0-1.0); Blood Urea Nitrogen 18 mg/dL (9-16); Calcium 9.1 mg/dL (8.4-10.2); Carbon Dioxide 23 mmol/L (22-29); Chloride 110 mmol/L (96-108); Estimated Glomerular Filt Rate > 60; Glucose Random 98 mg/dL (60-115); Potassium 3.1 mmol/L (3.3-5.1); Sodium 145 mmol/L (135-145)
[2024-01-17 17:33] LABS: Troponin-I High Sensitivity 24.2 ng/L (<3.5-35.0)
--- NOTE | 2024-01-17 17:40 | P.EN_ITS ---
Event Note Date of Service: 01/17/24 Event Note: The patient developed AFib with RVR this afternoon, with heart rates ranging from 140 to 170s, initially maintaining blood pressure. He was given IV metoprolol 5 mg and IV cardizem 5 mg without significant improvement in HR but with a drop in BP. IV fluids were started to maintain BP. Cardiology consultation was requested. Dr. Little recommended IV lopressor 2.5 mg Q6 and a digoxin load with IV digoxin 0.25 mg x 2. A sepsis workup was initiated: blood cultures were sent, lactic acid is normal, BMP shows K+ of 3.1, and WBC is normal. Hemoglobin has decreased, and a type and screen were completed for 1 unit of RBCs. The Gregg catheter shows trace blood. Antibiotics were broadened to Zosyn.The patient remains in AFib with HR in the 140 to 150s, and BP is trending down despite IVF. Transfer to the ICU was discussed with the main entree cook and cashier. Potassium is lower since this morning, and IV replacement has been ordered. I discussed the clinical course with the in-person, and over the phone - Time Spent With Patient Time: Total time managing care of this patient today ____ minutes.
[2024-01-17] MEDS: Amiodarone/Dextrose 150 MG/100 ML PLAST..BAG 600 MG IV (18:30)
[2024-01-17] MEDS: Potassium Chloride/H20 10 MEQ/100 ML PIGGYBACK 100 MEQ IV ×6 (18:34→23:45)
[2024-01-17] MEDS: Amiodarone HCL 900 MG in 0.9 % Sodium Chloride 500 ML 34.53 MG IVCONT (18:47)
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
[2024-01-17] MEDS: Norepinephrine Bitartrate/D5W 8 MG/250 ML PLAST..BAG 9.36 MG IVCONT (19:40)
--- NOTE | 2024-01-17 19:40 | PC.NURSE ---
Pt tolerated meds crushed in applesauce today, continues to be drowsy and confused. This afternoon he went into afib with RVR of 139 -170. pt assessed at bedside and denied symptoms. bp takenand was 116/56 manual. No activity happening to explain the high rate and as rate was persisting a rapid response was called. Pt given meds as noted in JUL. His blood pressure was sensitive to the meds and was dipping with readings from upper 70's- 110's. ecg done, 's, cardiology down to assess. and as pt's blood pressure was stabalized 90's-low 100's pt remained on the unit. Later this evening bp was noted to be in the 80's again and Dr. Baer at bedside. Pt given additional bolus and transferred to ICU. Report given at pt bedside and he was transferred without incident with his belongings.
[2024-01-17 20:28] LABS: Levetiracetam Keppra 47.8 mcg/mL (6.0-46.0)
[2024-01-17] MEDS: Metoprolol Tartrate 5 MG/5 ML VIAL 2.5 MG IVPUSH (20:33)
[2024-01-17] MEDS: Gabapentin 300 MG CAPSULE PO (21:07)
[2024-01-17] MEDS: Betamethasone Dip Aug 0.05% Cr 15 GM TUBE 1 APPL TOPICAL (21:07)
[2024-01-17] MEDS: oxyBUTYnin chloride ER 5 MG TAB.ER.24 PO (21:08)
[2024-01-18] VITALS (39 sets, daily range): BP systolic 81–194; BP diastolic 36–84; PULSE 56–129; RESP 11–23; TEMP 36.5–36.8; O2SAT 90–98; BMI 30.5
[2024-01-18] MEDS: Piperacillin Sodium/Tazobactam 4.5 GM in 0.9 % Sodium Chloride 100 ML IV ×4 (04:22→22:25)
[2024-01-18 05:28] LABS: VBG Base Excess 0.5 mmol/L; VBG HCO3 22 mmol/L (22-26); VBG pCO2 29 mmHg; VBG pO2 63 mmHg
[2024-01-18 05:45] LABS: Venous Blood Gas Refer to POC result
[2024-01-18 05:46] LABS: MANUAL DIFF FLAG NO
[2024-01-18 05:47] LABS: Basophils Percent Auto 0.6 % (0-2); Eosinophils Absolute Auto 0.2 X10*3/uL (0.0-0.4); Eosinophils Percent Auto 4.2 % (0-4); Hematocrit 25.5 % (42.0-52.0); Hemoglobin 7.9 g/dl (14.0-18.0); Imm Gran Abs Auto 0.01 X10*3/uL (0.00-0.03); Imm Gran Pct Auto 0.2 % (0.0-0.4); Lymphocytes Percent Auto 19.9 % (20-40); Mean Platelet Volume 9.7 fL (9.4-12.4); Monocytes Absolute Auto 0.3 X10*3/uL (0.1-1.2); Monocytes Percent Auto 6.1 % (2-11); Neutrophils Absolute Auto 3.6 x10*3/uL (2.0-8.3); Platelet Count 170 X10*3/uL (160-400); Red Blood Count 2.93 X10*6/uL (4.60-5.80); Red Cell Distribution Width 16.9 % (11.0-16.0); White Blood Count 5.2 X10*3/uL (4.8-10.8)
[2024-01-18] MEDS: Omeprazole 20 MG CAPSULE.DR PO (05:48)
[2024-01-18 06:13] LABS: Alanine Aminotransferase 16 U/L (0-40); Alkaline Phosphatase 69 U/L (39-117); Anion Gap 14 (12-20); Aspartate Amino Transferase 31 U/L (5-37); Bilirubin Total 0.4 mg/dL (0.0-1.0); Blood Urea Nitrogen 17 mg/dL (9-16); Calcium 8.5 mg/dL (8.4-10.2); Carbon Dioxide 23 mmol/L (22-29); Chloride 112 mmol/L (96-108); Creatinine Clr Calc Pharmacy 105.9; Estimated Glomerular Filt Rate > 60; Glucose Random 94 mg/dL (60-115); Magnesium 1.4 mg/dL (1.6-2.6); Phosphorus 3.4 mg/dL (2.7-4.5); Potassium 3.8 mmol/L (3.3-5.1); Sodium 145 mmol/L (135-145); Total Protein 6.6 g/dL (6.5-8.0)
[2024-01-18] MEDS: Magnesium Sulfate/H2O 2 GM/50 ML PIGGYBACK IV (06:28)
[2024-01-18] MEDS: Betamethasone Dip Aug 0.05% Cr 15 GM TUBE 1 APPL TOPICAL ×2 (08:15→20:17)
[2024-01-18] MEDS: Nystatin Powder 15 GM BOTTLE 1 APPL TOPICAL ×3 (08:15→20:17)
[2024-01-18] MEDS: Fluconazole 100 MG TABLET PO (08:20)
[2024-01-18] MEDS: Simethicone 80 MG TAB.CHEW PO ×2 (08:20→20:15)
[2024-01-18] MEDS: vancomycin HCL 125 MG CAPSULE PO ×2 (08:20→20:14)
[2024-01-18] MEDS: Multivitamin TABLET 1 TAB PO (08:20)
[2024-01-18] MEDS: Gabapentin 300 MG CAPSULE PO ×2 (08:20→20:14)
[2024-01-18] MEDS: Ferrous Sulfate 324 MG TABLET.DR PO (08:20)
[2024-01-18] MEDS: Albumin Human 25 % 100 ML IV ×3 (08:21→20:02)
[2024-01-18] MEDS: 0.9 % Sodium Chloride Flush 3 ML SYRINGE IVFLUSH ×3 (08:21→20:26)
[2024-01-18] MEDS: Escitalopram Oxalate 10 MG TABLET PO (08:21)
[2024-01-18] MEDS: Ascorbic Acid 500 MG TABLET 1000 MG PO (08:21)
[2024-01-18] MEDS: levETIRAcetam Oral Soln 500 MG/5 ML 1000 MG PO ×2 (08:22→20:08)
[2024-01-18] MEDS: Amiodarone HCL 200 MG TABLET PO ×2 (08:42→20:14)
[2024-01-18] MEDS: Midodrine HCl 5 MG TABLET PO ×2 (09:48→12:11)
[2024-01-18] MEDS: Collagenase Clostridium Hist. 30 GM TUBE 1 APPL TOPICAL (09:48)
[2024-01-18] MEDS: Methenamine Hippurate 1 GM TABLET PO ×2 (09:48→20:15)
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
[2024-01-18] MEDS: Heparin Sodium,Porcine 5,000 UNIT/ML VIAL 5000 UNIT SUBCUT ×2 (12:10→20:16)
--- NOTE | 2024-01-18 13:59 | MHC.SLORD ---
Speech Language Pathology Order Status: Patient transferred to ICU overnight, not seen for swallow tx 01/18/24.
--- NOTE | 2024-01-18 14:07 | MHC.CM.PN ---
Addendum entered by Galina Rivera 01/18/24 14:11: Consuelo [phone] Original Note: Pt transferred back to ICU for BP management needs. Original d/c plan of a return to home w/24 hour [facility] care and likely new VNA for skilled visits. Pt has a RN CM in the community from 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 named Consuelo who is closely following and can assist w/d/c planning and DME should pt need anything. At this time, it is uncertain what pt's needs will be as he remains seriously ill - spoke w/Consuelo today to update her on pt's return to ICU - she will follow up after the weekend. CM to follow.
--- NOTE | 2024-01-18 15:17 | HO.WOUND ---
Wound Consult: Follow up 73yr old? male admitted to [facility] on 01/09/24 - See progress notes and H&P for detailed history.? Wound consult follow up for Sacral Wound POA.? Patient was re-admitted to the ICU unit for care.? Sacrococcygeal (Sacrum, coccyx and buttock) on Admission 01/09/24 01/16/24 01/18/24 Sacrum and Coccyx Etiology: ?remains Unstageable Pressure Injury ?Present on Admission Measurements: 4cm x 6cm x 0.8cm Wound Bed: Full thickness tissue loss, red moist tissue, improving yellow moist slough Right Sacrum resolving almost healed - Left Sacrum and coccyx improving with less slough noted Drainage / Odor: yellow faust Edges: ? irregular Emely wound: ?Perirectal area noted for suspected MASD - blanchable purple pigmentation noted Goals of Treatment: ? Off Load Pressure and continue Santly to necrotic tissue wound beds for enzymatic debridement and foam dressing to protect from friction and aid in off loading pressure No new topical recommendations needed at this time. Pressure Injury measures currently in place, LINO mattress, wedges for off loading, Q 2 hrs turns, heels off loaded with pillows, barrier cream in place and nutrition following. Recommendations: 1. Turn and Reposition every 2 hours and as needed for patient comfort.? Use pillows or wedges to support off loading positions. 2. Off Load all bony prominences with use of pillows and heel boots if needed.? Apply Preventative foams where needed. ? 3. Monitor for incontinence and moisture control, use barrier creams when needed for prevention and treatment. 4. Provide adequate and supplemental nutrition.? Nutrition following. 5. Continue low air loss mattress. 6. When applicable maintain blood glucose levels per Providers order. 7. Sacrum - Off Load Pressure? - Cleanse with PH balance spray or wipes, and irrigate wound bed with NS, pat dry. ?Apply thin layer of Triad to periwound. ?Apply thick layer of Santyl to wound beds, cover / pack with saline moist gauze. Cover with ABD pad. Change Daily. Re-consult wound care Nurse for wound deterioration or wound changes.
--- NOTE | 2024-01-18 15:53 | PC.NURSE ---
1400 - This RN woke patient up for med administration - patient drowsy but arousable to name - unable to swallow medication despite multiple attempts - positive tracking - no verbal response to questions - shaking head yes and no to questions - denies pain - MD notified and at bedside. No new orders at this time.
--- NOTE | 2024-01-18 16:06 | PC.NURSE ---
1400 - This RN woke patient up for med administration - patient drowsy but arousable to name - unable to swallow medication despite multiple attempts - positive tracking - minimal soft spoken response to questions - shaking head yes and no to questions - denies pain - following simple commands - unable to assess extremity strength. MD notified and at bedside. No new orders at this time.
[2024-01-18] MEDS: oxyBUTYnin chloride ER 5 MG TAB.ER.24 PO (20:15)
--- NOTE | 2024-01-18 22:12 | P.CNID_ITS ---
History of Present Illness Data of Consult Service Date: 01/15/24 Requesting physician: Sunil Portillo Primary Care Provider: Aba Linares MD HPI Reason for consult: seizures,suprapubic catheter He presents with hematuria He has recently been at [facility] and thought to have fungal and bacterial infection He is doing better but has been on levaqun,Difluca as as well from [facility] He has no abdomina pain. Review of Systems 2 Review of Systems: Yes all other systems are reviewed and are negative REPLACED BY [facility] Past Medical History Medical History Chronic hypercapnic respiratory failure Restrictive lung mechanics due to neuromuscular disease Paraplegia LATANYA on CPAP CAD (coronary artery disease) Paroxysmal atrial fibrillation HTN (hypertension) Family History Family History Father Diabetes HTN (hypertension) CVD (cardiovascular disease) Mother CVD (cardiovascular disease) Diabetes HTN (hypertension) Brother CVD (cardiovascular disease) Diabetes HTN (hypertension) Surgical History Surgical History History of carpal tunnel release Hx of colonoscopy Hx of rotator cuff surgery History of hip surgery Social History Social History Household Members: Spouse Housing: House Do you presently have visiting nurse or other home services: Yes (visiting nurses, cnas daily) Alcohol intake: former Comment: private [employer] in room Patient Tobacco Use Status: Former Tobacco user Tobacco use type: Cigarette Years Smoked: 20 years Advance Directives Date on File: 06/08/23 service: No Meds Allergies Allergy/AdvReac Type Severity Reaction Status Date / Time No Known Allergies Allergy Verified 01/09/24 08:53 [No Known Allergies*] Active Medications: Current Medications Acetaminophen (Acetaminophen 325 Mg Tablet) 650 mg PO Q6H PRN PRN Reason: Mild Pain (Scale Score 1-4) Al Hydroxide/Mg Hydroxide (Magnesium Hydrox/Alum Hydrox 30 Ml Oral.Susp) 5 ml PO Q4H PRN PRN Reason: Dyspepsia Amiodarone HCl (Amiodarone Hcl 200 Mg Tablet) 200 mg PO BID PAUL Last Admin: 01/18/24 20:14 Dose: 200 mg Ascorbic Acid (Ascorbic Acid 500 Mg Tablet) 1,000 mg PO DAILY [facility] Last Admin: 01/18/24 08:21 Dose: 1,000 mg Baclofen (Baclofen 10 Mg Tablet) 5 mg PO TID PRN PRN Reason: spasms Betamethasone Dipropion Augmented (Betamethasone Dip Aug 0.05% Cr 15 Gm Tube) 1 appl TOPICAL BID [facility] Last Admin: 01/18/24 20:17 Dose: 1 appl Collagenase (Collagenase Clostridium Hist. 30 Gm Tube) 1 appl TOPICAL DAILY [facility]; Protocol Last Admin: 01/18/24 09:48 Dose: 1 appl Docusate Sodium (Docusate Sodium 100 Mg Capsule) 100 mg PO BID PRN PRN Reason: constipation Last Admin: 01/15/24 22:06 Dose: 100 mg Escitalopram Oxalate (Escitalopram Oxalate 10 Mg Tablet) 10 mg PO DAILY [facility] Last Admin: 01/18/24 08:21 Dose: 10 mg Ferrous Sulfate (Ferrous Sulfate 324 Mg Tablet.) 324 mg PO DAILY [facility] Last Admin: 01/18/24 08:20 Dose: 324 mg Fluconazole (Fluconazole 100 Mg Tablet) 100 mg PO DAILY [facility] Last Admin: 01/18/24 08:20 Dose: 100 mg Gabapentin (Gabapentin 300 Mg Capsule) 300 mg PO TID [facility] Last Admin: 01/18/24 20:14 Dose: 300 mg Heparin Sodium (Porcine) (Heparin Sodium,Porcine 5,000 Unit/Ml Vial) 5,000 unit SUBCUT Q8H [facility] Last Admin: 01/18/24 20:16 Dose: 5,000 unit Piperacillin Sod/Tazobactam (Sod 4.5 gm/ Sodium Chloride) 100 mls @ 200 mls/hr IV Q6H [facility] Last Infusion: 01/18/24 17:00 Dose: Infused Norepinephrine Bitartrate (Levophed) 8 mg in 250 mls @ 0 mls/hr IVCONT .Q0M [facility]; Protocol Last Titration: 01/18/24 21:09 Dose: 0 mcg/kg/min, 0 mls/hr Albumin Human (Kedbumin 25 %) 100 mls @ 100 mls/hr IV Q6H [facility] Stop: 01/19/24 02:59 Last Infusion: 01/18/24 21:09 Dose: Infused Levetiracetam (Levetiracetam Oral Soln 500 Mg/5 Ml) 1,000 mg PO BID [facility] Last Admin: 01/18/24 20:08 Dose: 1,000 mg Methenamine Hippurate (Methenamine Hippurate 1 Gm Tablet) 1 gm PO BID [facility] Last Admin: 01/18/24 20:15 Dose: 1 gm Metoprolol Tartrate (Metoprolol Tartrate 5 Mg/5 Ml Vial) 2.5 mg IVPUSH Q6H PRN; Protocol PRN Reason: Heart Rate > 110 Last Admin: 01/17/24 20:33 Dose: 2.5 mg Midodrine (Midodrine Hcl 5 Mg Tablet) 5 mg PO TID@0900,1300,1700 [facility] Last Admin: 01/18/24 16:55 Dose: Not Given Multivitamins/Vitamin C (Multivitamin Tablet) 1 tab PO DAILY [facility] Last Admin: 01/18/24 08:20 Dose: 1 tab Nystatin (Nystatin Powder 15 Gm Bottle) 1 appl TOPICAL TID [facility]; Protocol Last Admin: 01/18/24 20:17 Dose: 1 appl Omeprazole (Omeprazole 20 Mg Capsule.Dr) 20 mg PO BID@0630,1630 [facility] Last Admin: 01/18/24 16:27 Dose: Not Given Oxybutynin Chloride (Oxybutynin Chloride Er 5 Mg Tab.Er.24) 5 mg PO BEDTIME [facility] Last Admin: 01/18/24 20:15 Dose: 5 mg Simethicone (Simethicone 80 Mg Tab.Chew) 80 mg PO TID [facility] Last Admin: 01/18/24 20:15 Dose: 80 mg Sodium Chloride (0.9 % Sodium Chloride Flush 3 Ml Syringe) 3 ml IVFLUSH QSHIFT [facility] Last Admin: 01/18/24 20:26 Dose: 3 ml Vancomycin HCl (Vancomycin Hcl 125 Mg Capsule) 125 mg PO BID [facility] Last Admin: 01/18/24 20:14 Dose: 125 mg Home Medications ?Medication ?Instructions ?Recorded ?Confirmed ?Last Taken ?Type CPAP (CPAP Machine/Device) 07/19/21 11/14/23 11/13/23 History apixaban 5 mg tablet (Eliquis) 5 mg PO BID 07/19/21 01/09/24 11/13/23 History ascorbic acid (vitamin C) 250 mg 250 mg PO BID 07/19/21 01/09/24 11/13/23 History tablet pantoprazole 40 mg tablet,delayed 40 mg PO BID 07/19/21 01/09/24 11/13/23 History release gabapentin 300 mg capsule 300 mg PO TID 10/15/21 01/09/24 11/13/23 History methenamine hippurate 1 gram tablet 1 g PO BID 01/27/22 01/09/24 11/13/23 History docusate sodium 100 mg capsule 100 mg PO BID PRN constipation 06/08/23 01/09/24 11/13/23 History escitalopram oxalate 10 mg tablet 10 mg PO DAILY 06/08/23 01/09/24 11/13/23 History multivitamin 1 tab PO DAILY 06/08/23 01/09/24 11/13/23 History baclofen 10 mg tablet 10 mg PO TID PRN Muscle Spasm 07/03/23 01/09/24 11/13/23 History acetaminophen 325 mg tablet 650 mg PO Q6H PRN Mild Pain (Scale 01/09/24 01/09/24 Unknown History Score 1-4) aluminum-magnesium hydroxide 200 5 ml PO Q4H PRN Dyspepsia 01/09/24 01/09/24 Unknown History mg-200 mg/5 mL oral suspension clobetasol 0.05 % topical cream 1 appl topical BID 01/09/24 01/09/24 Unknown History midodrine 5 mg tablet 5 mg PO BID@0900,1500 01/09/24 01/09/24 Unknown History nystatin 100,000 unit/gram topical 1 appl topical TID 01/09/24 01/09/24 Unknown History powder psyllium husk 0.4 gram capsule 2 g PO Q6H PRN Constipation 01/09/24 01/09/24 Unknown History simethicone 80 mg chewable tablet 80 mg PO TID 01/09/24 01/09/24 Unknown History vancomycin 125 mg capsule 125 mg PO QID 01/09/24 01/09/24 Unknown History Physical Exam 2 Vital Signs: Vital Signs: Last Vital Signs Temp 97.9 F 01/18/24 19:53 Pulse 70 01/18/24 21:09 Resp 14 01/18/24 21:18 BP 141/68 H 01/18/24 21:09 Pulse Ox 90 L 01/18/24 21:00 O2 Del Method CPAP 01/18/24 21:00 O2 Flow Rate 25 01/09/24 18:00 FiO2 21 01/18/24 21:00 BMI result Body Mass Index 30.5 Const: General: cooperative Orientation/consciousness: patient oriented x3 HEENT: Head: Yes normal to inspection Mouth: Normal oral and palatal mucosa present Eyes: General: appearance normal, both eyes and all related structures P upils: Equal, round and reactive pupils present Resp: Effort & Inspection: normal respiratory effort Cardio: Rate: regular rate Rhythm: regular rhythm GI: Palpation (GI): Soft to palpation and nontender : General: Yes no CVA tenderness Back/Spine/Pelvis: Back: no CVA tenderness Skin: General skin exam: no rashes or lesions noted Neuro: General: patient oriented x3 Cranial nerves: Yes CN's II-XII intact bilaterally and Yes Equal, round and reactive pupils present Extrem: General: Yes normal to inspection Psych: Appearance: grossly normal Results Labs 01/19/24 05:29 01/19/24 05:29 Labs: Short CBC 01/18/24 Range/Units 05:21 WBC 5.2 (4.8-10.8) X10*3/uL Hgb 7.9 L (14.0-18.0) g/dl Hct 25.5 L (42.0-52.0) % Plt Count 170 (160-400) X10*3/uL BMP 01/18/24 05:21 Sodium 145 Potassium 3.8 D Chloride 112 H Carbon Dioxide 23 BUN 17 H Creatinine 0.79 Calcium 8.5 D Liver Function 01/18/24 Range/Units 05:21 Total Bilirubin 0.4 (0.0-1.0) mg/dL AST 31 (5-37) U/L ALT 16 (0-40) U/L Alkaline Phosphatase 69 (39-117) U/L Albumin 3.0 L (3.5-5.0) g/dL Microbiology Microbiology Results: Microbiology 01/17/24 16:57 Blood - Venous Blood Culture - Preliminary No growth after 24 hours. 01/17/24 15:51 Blood - Venous Blood Culture - Preliminary No growth after 24 hours. 01/13/24 15:40 Tracheal Aspirate Gram Stain - Final 01/13/24 15:40 Tracheal Aspirate Sputum Culture - Final Era glabrata 01/11/24 11:24 Cerebrospinal Fluid Gram Stain - Final 01/11/24 11:24 Cerebrospinal Fluid CSF Examination - Final 01/11/24 11:24 Cerebrospinal Fluid Fluid Description - Final 01/11/24 11:24 Cerebrospinal Fluid CSF Culture - Final No growth after 3 days. 01/09/24 09:09 Blood - Venous Blood Culture - Final No growth after 5 days. 01/09/24 08:50 Blood - Venous Blood Culture - Final No growth after 5 days. 01/09/24 Unknown Urine Catheterized - Gregg Catheter Urine Culture - Final No growth. Assessment and Plan (1) Seizure: Status: Acute He has been treated for UTI Possibly Levaquin cause for seizure Would hold Levaquin. Po Diflucan and po Vancomycin per [facility] plan. Stop Zosyn if no bactermia or urine culture suggestive of Pseudomonas this admissiotn. (2) Atrial fibrillation with RVR: Status: Acute (3) Spasticity: Status: Acute Plan Hold Levaqui, Watch for symptoms
[2024-01-19] VITALS (19 sets, daily range): BP systolic 123–153; BP diastolic 51–69; PULSE 49–76; RESP 11–20; TEMP 36.3–36.7; O2SAT 94–99; BMI 30.5
[2024-01-19] MEDS: Albumin Human 25 % 100 ML IV (02:05)
[2024-01-19] MEDS: Piperacillin Sodium/Tazobactam 4.5 GM in 0.9 % Sodium Chloride 100 ML IV ×4 (03:09→21:16)
[2024-01-19] MEDS: Heparin Sodium,Porcine 5,000 UNIT/ML VIAL 5000 UNIT SUBCUT ×3 (04:59→21:17)
[2024-01-19] MEDS: Omeprazole 20 MG CAPSULE.DR PO ×2 (04:59→16:03)
[2024-01-19 05:36] LABS: VBG Base Excess 1.2 mmol/L; VBG HCO3 26 mmol/L (22-26); VBG pCO2 44 mmHg; VBG pH 7.38 (7.32-7.43); VBG pO2 60 mmHg
[2024-01-19 05:44] LABS: MANUAL DIFF FLAG NO
[2024-01-19 05:45] LABS: Venous Blood Gas Refer to POC result
[2024-01-19 05:46] LABS: Basophils Percent Auto 0.4 % (0-2); Eosinophils Absolute Auto 0.2 X10*3/uL (0.0-0.4); Eosinophils Percent Auto 4.9 % (0-4); Hematocrit 24.3 % (42.0-52.0); Hemoglobin 7.6 g/dl (14.0-18.0); Imm Gran Abs Auto 0.01 X10*3/uL (0.00-0.03); Imm Gran Pct Auto 0.2 % (0.0-0.4); Lymphocytes Absolute Auto 0.8 X10*3/uL (1.2-4.9); Lymphocytes Percent Auto 15.4 % (20-40); Mean Corpuscular HGB Conc 31.3 g/dl (31.0-36.0); Mean Corpuscular Hemoglobin 27.4 pg (27.0-33.0); Mean Corpuscular Volume 87.7 fL (80.0-98.0); Mean Platelet Volume 9.6 fL (9.4-12.4); Monocytes Absolute Auto 0.3 X10*3/uL (0.1-1.2); Monocytes Percent Auto 5.5 % (2-11); Neutrophils Absolute Auto 3.6 x10*3/uL (2.0-8.3); Neutrophils Percent Auto 73.6 % (45-73); Platelet Count 132 X10*3/uL (160-400); Red Blood Count 2.77 X10*6/uL (4.60-5.80); Red Cell Distribution Width 16.8 % (11.0-16.0); White Blood Count 4.9 X10*3/uL (4.8-10.8)
[2024-01-19 06:05] LABS: Albumin Level 4.3 g/dL (3.5-5.0); Anion Gap 16 (12-20); Blood Urea Nitrogen 15 mg/dL (9-16); Calcium 9.4 mg/dL (8.4-10.2); Carbon Dioxide 25 mmol/L (22-29); Chloride 113 mmol/L (96-108); Creatinine Clr Calc Pharmacy 85.4; Estimated Glomerular Filt Rate > 60; Glucose Random 94 mg/dL (60-115); Magnesium 1.8 mg/dL (1.6-2.6); Phosphorus 3.6 mg/dL (2.7-4.5); Potassium 3.5 mmol/L (3.3-5.1); Sodium 150 mmol/L (135-145)
[2024-01-19] MEDS: Escitalopram Oxalate 10 MG TABLET PO (08:29)
[2024-01-19] MEDS: Ascorbic Acid 500 MG TABLET 1000 MG PO (08:29)
[2024-01-19] MEDS: vancomycin HCL 125 MG CAPSULE PO ×2 (08:29→21:17)
[2024-01-19] MEDS: Simethicone 80 MG TAB.CHEW PO ×3 (08:29→21:16)
[2024-01-19] MEDS: Amiodarone HCL 200 MG TABLET PO ×2 (08:30→21:17)
[2024-01-19] MEDS: Methenamine Hippurate 1 GM TABLET PO ×2 (08:30→21:17)
[2024-01-19] MEDS: Gabapentin 300 MG CAPSULE PO (08:30)
[2024-01-19] MEDS: Ferrous Sulfate 324 MG TABLET.DR PO (08:30)
[2024-01-19] MEDS: Multivitamin TABLET 1 TAB PO (08:30)
[2024-01-19] MEDS: Fluconazole 100 MG TABLET PO (08:30)
[2024-01-19] MEDS: Potassium Chloride Packet 20 MEQ PACKET 40 MEQ PO (08:31)
[2024-01-19] MEDS: levETIRAcetam Oral Soln 500 MG/5 ML 1000 MG PO ×2 (08:31→21:16)
[2024-01-19] MEDS: 0.9 % Sodium Chloride Flush 3 ML SYRINGE IVFLUSH ×2 (08:31→15:04)
[2024-01-19] MEDS: Midodrine HCl 5 MG TABLET PO ×2 (09:32→13:42)
[2024-01-19] MEDS: Nystatin Powder 15 GM BOTTLE 1 APPL TOPICAL ×3 (09:33→21:19)
[2024-01-19] MEDS: Dextrose 5 % 1,000 ML 125 ML IVCONT (09:33)
[2024-01-19] MEDS: Collagenase Clostridium Hist. 30 GM TUBE 1 APPL TOPICAL (09:33)
[2024-01-19] MEDS: Betamethasone Dip Aug 0.05% Cr 15 GM TUBE 1 APPL TOPICAL ×2 (09:34→21:18)
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
--- NOTE | 2024-01-19 11:20 | MHC.CLN ---
F/U PT TRANSFERRED BACK TO ICU DISCUSSED AT ROUND WITH PT WITH POOR PO DIET ADVANCED TO GRD M/S WITH HT LIQ-APPROPRIATE PT WITH INCREASED NUTRITION RISK R/T PRESSURE INJURY PT RECEIVING ENSURE MAX BID TO PROMOTE WOUND HEALING SUPP TO PROVIDE 300KCALS, 60G PROTEIN WILL ADD MAGIC CUP WITH MEALS TO INCREASE KCALS MONITOR PO INTAKE AND ENCOURAGE SUPPLEMENT
--- NOTE | 2024-01-19 13:26 | PC.NURSE ---
arrived to 485 from ICU ,dressing to sacrum changed as ordered
--- NOTE | 2024-01-19 13:58 | MHC.CM.PN ---
EMR REVIEWED AND PER MD ROUNDS, PT HAS BEEN DOWNGRADED FROM ICU TO MED-TELE. CM WILL CONTINUE TO FOLLOW FOR ANY CHANGE TO DC PLAN/NEEDS.
--- NOTE | 2024-01-19 15:22 | MHC.SL.SWA ---
Speech Pathologist Impression: Mild to moderate pharyngeal dysphagia, new onset aphonia Risk of Aspiration Due to: Medically Fragile Aphonia Generalized weakness Dysphasia Diet Status: Continue ground/mechanical soft diet with honey thickened consistencies, recc MBSS to visualize swallow in advancing/changing diet Liquid Consistency and Strategies for Safe Swallow: Liquid Intake Recommendation: Honey Thick Liquid Intake Strategies: Small Sips Double Swallow Solid Food Consistency: Dietary Recommendations: Grnd/Mech Altered (NDD2) Additional Modifications to Solid Foods: Mildly oral phase with presence of oral residue on trials of solids. Patient tolerated softer solids without difficulty. Patient exhibited no overt s/s of aspiration on first few sips of water by teaspoon, but had coughing episode when drinking from a straw. Patient was fearful and refused to try more liquids, including thickened liquids, despite reassurance from [employer]ESALE [employer]S SALESPERSON. WH[employer]ALE [employer] SALESPERSON discussed with Dr. De Jesus. Recommend GROUND/MECHANICALLY SOFT solids (NDD2), per Dr. De Jesus, start on HONEY THICK by teaspoon as a precaution, pills to be CRUSHED in PUREE. Strict aspiration precautions apply. Patient will need 1:1 feed, monitor closely, upright positioning for all PO intake. If any difficulties are observed with this diet, downgrade to NPO and WH[employer]ALE [employer] SALESPERSON will repeat assessment. Oral Medication Intake: Crushed with Puree Please contact the pharmacy regarding appropriate crushable or liquid drug formulations that are available whenever modified delivery is recommended. Compensatory Strategies and Precautions to be Taken for Safe Swallow: Double Swallow Liquids from Cup Liquids from Straw Small Bites and Sips Rate of Ingestion Change Oral Check Supervision While Eating and Drinking for Safe Swallow: Total Assistance (1:1) Foods to Avoid: Mixed consistencies, hard tough to chew solids Swallowing Recommended Treatments: Compens. Strategy Educat. Recommendation for Speech: Inpatient Speech Therapy Comment: WH[employer] SALESPERSON will continue to follow to monitor patient's tolerance of modified diet, re-assess for potential upgrade/feeding needs. Frequency/Duration: PRN M-F Date Range for Service Req: Timeline to reassess: Netsuite Consultant Clinican/Clinical Fellow: No Supervisory Statement: I have reviewed and agree with the student/clinical fellow's documentation: N/A Speech Language Pathologist: Kelsey Jacobo M.S. [facility]-[employer] SAL[employer]ERSON
--- NOTE | 2024-01-19 15:25 | PC.NURSE ---
urine punch color in the collection bag , clarified with DR Soares to continue heparin SQ as ordered
--- NOTE | 2024-01-19 15:52 | PC.NURSE ---
Sponge bath was given by RN and CAN SEALER this afternoon , bed linen were changed
--- NOTE | 2024-01-19 16:23 | PC.NURSE ---
suprapubic cath flushed with 30 ml NS at 15:00 , no blood clots noted
--- NOTE | 2024-01-19 16:34 | PM.EVENT ---
Event Note Date of Service: 01/19/24 Event Note: hospitalist accept note 73yo M with paraplegia, spasticity on baclofen pump, neurogenic bladder with SPC, HTN, CAD, AF, LATANYA on CPAP admitted to ICU 01/09/24 with AMS + seizure activity, intubated for airway protection and started on levetiracetam MRI with no acute findings, baclofen pump working appropriately extubated 01/14/24 and downgraded to telemetry 01/15/24 on 01/17/24 developed AF/RVR that could not be controlled with IV metoprolol + digoxin and started to have low BP so transferred to ICU and started on amiodarone drip and briefly required pressor support converted to NSR and changed to PO amiodarone, stepped down to telemetry 01/19/24 remains in NSR on piperacillin-tazobactam for Pseudmonas UTI with vanco prophylaxis given hx Cdiff on levetiracetam as above Na 150, getting D5W to replete free water; recheck BMP in AM anemic; on iron; recheck CBC and transfuse if Hb <7 mild hematuria, appreciate Urology consultation Time Spent With Patient Time: Total time managing care of this patient today ____ minutes.
[2024-01-19] MEDS: oxyBUTYnin chloride ER 5 MG TAB.ER.24 PO (21:16)
[2024-01-20 00:32] VITALS: PULSE 69; RESP 18; O2SAT 94
[2024-01-20] MEDS: 0.9 % Sodium Chloride Flush 3 ML SYRINGE IVFLUSH ×3 (01:28→16:11)
[2024-01-20 03:12] VITALS: BP 156/71; PULSE 63; RESP 18; TEMP 36.9; O2SAT 98
[2024-01-20] MEDS: Omeprazole 20 MG CAPSULE.DR PO ×2 (05:12→16:08)
[2024-01-20] MEDS: Piperacillin Sodium/Tazobactam 4.5 GM in 0.9 % Sodium Chloride 100 ML IV ×4 (05:12→23:17)
[2024-01-20 05:38] VITALS: BMI 30.3
[2024-01-20 05:54] LABS: MANUAL DIFF FLAG NO
[2024-01-20 05:56] LABS: Basophils Percent Auto 0.3 % (0-2); Eosinophils Absolute Auto 0.3 X10*3/uL (0.0-0.4); Hematocrit 24.5 % (42.0-52.0); Hemoglobin 7.7 g/dl (14.0-18.0); Imm Gran Abs Auto 0.02 X10*3/uL (0.00-0.03); Imm Gran Pct Auto 0.3 % (0.0-0.4); Lymphocytes Percent Auto 16.2 % (20-40); Mean Corpuscular HGB Conc 31.4 g/dl (31.0-36.0); Mean Corpuscular Hemoglobin 27.4 pg (27.0-33.0); Mean Corpuscular Volume 87.2 fL (80.0-98.0); Mean Platelet Volume 9.9 fL (9.4-12.4); Monocytes Absolute Auto 0.3 X10*3/uL (0.1-1.2); Monocytes Percent Auto 4.3 % (2-11); Neutrophils Absolute Auto 4.7 x10*3/uL (2.0-8.3); Neutrophils Percent Auto 73.9 % (45-73); Platelet Count 149 X10*3/uL (160-400); Red Blood Count 2.81 X10*6/uL (4.60-5.80); Red Cell Distribution Width 16.6 % (11.0-16.0); White Blood Count 6.4 X10*3/uL (4.8-10.8)
[2024-01-20 05:57] LABS: Venous Blood Gas Refer to POC result
[2024-01-20 06:00] LABS: VBG Base Excess 3.8 mmol/L; VBG HCO3 28 mmol/L (22-26); VBG pCO2 41 mmHg; VBG pH 7.44 (7.32-7.43); VBG pO2 107 mmHg
[2024-01-20 06:10] LABS: Albumin Level 3.7 g/dL (3.5-5.0); Anion Gap 13 (12-20); Blood Urea Nitrogen 13 mg/dL (9-16); Calcium 9.1 mg/dL (8.4-10.2); Carbon Dioxide 26 mmol/L (22-29); Chloride 112 mmol/L (96-108); Creatinine Clr Calc Pharmacy 88.8; Estimated Glomerular Filt Rate > 60; Glucose Random 92 mg/dL (60-115); Magnesium 1.6 mg/dL (1.6-2.6); Phosphorus 3.1 mg/dL (2.7-4.5); Potassium 3.1 mmol/L (3.3-5.1); Sodium 148 mmol/L (135-145)
[2024-01-20 07:23] VITALS: BP 136/75; PULSE 102; RESP 18; TEMP 36.1; O2SAT 98
[2024-01-20 11:15] VITALS: BP 134/60; PULSE 70; RESP 17; TEMP 37; O2SAT 97
[2024-01-20] MEDS: Heparin Sodium,Porcine 5,000 UNIT/ML VIAL 5000 UNIT SUBCUT ×2 (11:33→21:14)
[2024-01-20] MEDS: levETIRAcetam Oral Soln 500 MG/5 ML 1000 MG PO ×2 (11:33→21:13)
[2024-01-20] MEDS: Simethicone 80 MG TAB.CHEW PO ×3 (11:34→21:12)
[2024-01-20] MEDS: Escitalopram Oxalate 10 MG TABLET PO (11:34)
[2024-01-20] MEDS: Midodrine HCl 5 MG TABLET PO ×3 (11:34→16:12)
[2024-01-20] MEDS: Ferrous Sulfate 324 MG TABLET.DR PO (11:34)
[2024-01-20] MEDS: Methenamine Hippurate 1 GM TABLET PO ×2 (11:34→21:13)
[2024-01-20] MEDS: Multivitamin TABLET 1 TAB PO (11:34)
[2024-01-20] MEDS: Amiodarone HCL 200 MG TABLET PO ×2 (11:34→21:13)
[2024-01-20] MEDS: Fluconazole 100 MG TABLET PO (11:34)
[2024-01-20] MEDS: Ascorbic Acid 500 MG TABLET 1000 MG PO (11:34)
[2024-01-20] MEDS: Collagenase Clostridium Hist. 30 GM TUBE 1 APPL TOPICAL (11:35)
[2024-01-20] MEDS: vancomycin HCL 125 MG CAPSULE PO ×2 (11:35→21:13)
[2024-01-20] MEDS: Betamethasone Dip Aug 0.05% Cr 15 GM TUBE 1 APPL TOPICAL ×2 (11:36→21:14)
[2024-01-20] MEDS: Nystatin Powder 15 GM BOTTLE 1 APPL TOPICAL ×3 (14:27→21:15)
[2024-01-20 14:58] LABS: Lyme IgG CSF Immunoblot NO BANDS DETECTED; Lyme IgM CSF Immunoblot NO BANDS DETECTED
[2024-01-20 16:00] VITALS: BP 159/75; PULSE 72; RESP 18; TEMP 37.3; O2SAT 96
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
[2024-01-20] MEDS: Dextrose 5 % 1,000 ML 125 ML IVCONT (17:40)
[2024-01-20] MEDS: Potassium Chloride Packet 20 MEQ PACKET 40 MEQ PO (18:30)
[2024-01-20 20:00] VITALS: BP 176/78; PULSE 71; RESP 20; TEMP 36.9; O2SAT 97
[2024-01-20] MEDS: oxyBUTYnin chloride ER 5 MG TAB.ER.24 PO (21:13)
[2024-01-21] VITALS (8 sets, daily range): BP systolic 136–172; BP diastolic 60–84; PULSE 55–147; RESP 15–20; TEMP 36.4–36.8; O2SAT 91–98; BMI 30.2
[2024-01-21] MEDS: 0.9 % Sodium Chloride Flush 3 ML SYRINGE IVFLUSH ×2 (00:07→09:57)
--- NOTE | 2024-01-21 01:42 | PC.NURSE ---
Assumed care of patient at 19:00. Pt hypertensive on evening vitals, asymptomatic. Medicated per MAR for HTN. Tolerated without issue. Handoff report given to oncoming RN at 23:15.
[2024-01-21] MEDS: Dextrose 5 % 1,000 ML 125 ML IVCONT ×2 (01:54→16:45)
[2024-01-21] MEDS: Metoprolol Tartrate 5 MG/5 ML VIAL 2.5 MG IVPUSH (02:25)
--- NOTE | 2024-01-21 03:45 | MHC.PIE ---
P.AFIB I.Noted to be in AFIB RVR,HR 130-140,BP147/84.Med with PRN dose of IV Lopressor 2.5mg.Converted to SR,then continued to go in and of AFIB RVR,SR,HR 140-150,BP 172/78.Dr Bah notified.Order for Lopressor 5mg IV STAT x1 given.Med given,converted to SR,HR 70'S. E.Cont to monitor.
[2024-01-21] MEDS: Metoprolol Tartrate 5 MG/5 ML VIAL IVPUSH (04:05)
[2024-01-21] MEDS: Heparin Sodium,Porcine 5,000 UNIT/ML VIAL 5000 UNIT SUBCUT (04:08)
[2024-01-21] MEDS: Piperacillin Sodium/Tazobactam 4.5 GM in 0.9 % Sodium Chloride 100 ML IV ×4 (04:13→21:54)
--- NOTE | 2024-01-21 05:47 | PC.RT ---
Pt refused NOC CPAP
[2024-01-21] MEDS: Omeprazole 20 MG CAPSULE.DR PO ×2 (06:18→17:05)
[2024-01-21 06:21] LABS: MANUAL DIFF FLAG NO
[2024-01-21 06:26] LABS: Basophils Percent Auto 0.3 % (0-2); Eosinophils Absolute Auto 0.4 X10*3/uL (0.0-0.4); Hematocrit 24.4 % (42.0-52.0); Hemoglobin 7.5 g/dl (14.0-18.0); Imm Gran Abs Auto 0.02 X10*3/uL (0.00-0.03); Imm Gran Pct Auto 0.3 % (0.0-0.4); Lymphocytes Percent Auto 17.1 % (20-40); Mean Corpuscular HGB Conc 30.7 g/dl (31.0-36.0); Mean Corpuscular Volume 87.8 fL (80.0-98.0); Mean Platelet Volume 10.6 fL (9.4-12.4); Monocytes Absolute Auto 0.3 X10*3/uL (0.1-1.2); Monocytes Percent Auto 4.5 % (2-11); Neutrophils Absolute Auto 4.2 x10*3/uL (2.0-8.3); Neutrophils Percent Auto 70.8 % (45-73); Platelet Count 168 X10*3/uL (160-400); Red Blood Count 2.78 X10*6/uL (4.60-5.80); Red Cell Distribution Width 16.9 % (11.0-16.0)
[2024-01-21 07:46] LABS: Alanine Aminotransferase 16 U/L (0-40); Albumin Level 3.6 g/dL (3.5-5.0); Alkaline Phosphatase 61 U/L (39-117); Anion Gap 13 (12-20); Aspartate Amino Transferase 19 U/L (5-37); Bilirubin Total 0.5 mg/dL (0.0-1.0); Blood Urea Nitrogen 13 mg/dL (9-16); Carbon Dioxide 26 mmol/L (22-29); Chloride 112 mmol/L (96-108); Creatinine Clr Calc Pharmacy 83.2; Estimated Glomerular Filt Rate > 60; Glucose Fasting 111 mg/dL (60-99); Potassium 2.9 mmol/L (3.3-5.1); Sodium 148 mmol/L (135-145); Total Protein 6.9 g/dL (6.5-8.0)
[2024-01-21 08:25] LABS: Magnesium 1.5 mg/dL (1.6-2.6)
[2024-01-21] MEDS: Nystatin Powder 15 GM BOTTLE 1 APPL TOPICAL ×3 (09:00→21:55)
[2024-01-21] MEDS: Escitalopram Oxalate 10 MG TABLET PO (09:53)
[2024-01-21] MEDS: Ascorbic Acid 500 MG TABLET 1000 MG PO (09:53)
[2024-01-21] MEDS: Amiodarone HCL 200 MG TABLET PO ×2 (09:53→21:52)
[2024-01-21] MEDS: Ferrous Sulfate 324 MG TABLET.DR PO (09:54)
[2024-01-21] MEDS: Fluconazole 100 MG TABLET PO (09:54)
[2024-01-21] MEDS: levETIRAcetam Oral Soln 500 MG/5 ML 1000 MG PO ×2 (09:54→21:54)
[2024-01-21] MEDS: Multivitamin TABLET 1 TAB PO (09:55)
[2024-01-21] MEDS: Potassium Chloride Packet 20 MEQ PACKET 40 MEQ PO ×2 (09:55→21:50)
[2024-01-21] MEDS: Methenamine Hippurate 1 GM TABLET PO ×2 (09:55→21:52)
[2024-01-21] MEDS: Midodrine HCl 5 MG TABLET PO ×2 (09:55→17:04)
[2024-01-21] MEDS: Simethicone 80 MG TAB.CHEW PO ×3 (09:56→21:53)
[2024-01-21] MEDS: vancomycin HCL 125 MG CAPSULE PO ×2 (09:56→21:52)
[2024-01-21] MEDS: Betamethasone Dip Aug 0.05% Cr 15 GM TUBE 1 APPL TOPICAL ×2 (10:16→22:18)
[2024-01-21] MEDS: Collagenase Clostridium Hist. 30 GM TUBE 1 APPL TOPICAL (10:16)
[2024-01-21] MEDS: Magnesium Sulfate/H2O 2 GM/50 ML PIGGYBACK IV (10:28)
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
[2024-01-21] MEDS: Apixaban 5 MG TABLET PO (15:33)
[2024-01-21] MEDS: oxyBUTYnin chloride ER 5 MG TAB.ER.24 PO (22:17)
[2024-01-22 04:00] VITALS: BP 151/71; PULSE 52; RESP 15; TEMP 36.7; O2SAT 97
[2024-01-22] MEDS: Piperacillin Sodium/Tazobactam 4.5 GM in 0.9 % Sodium Chloride 100 ML IV ×2 (04:15→11:33)
[2024-01-22] MEDS: Dextrose 5 % 1,000 ML 125 ML IVCONT ×2 (04:18→11:35)
[2024-01-22 06:00] VITALS: BMI 30.1
[2024-01-22] MEDS: Omeprazole 20 MG CAPSULE.DR PO ×2 (06:19→16:35)
[2024-01-22 07:05] LABS: MANUAL DIFF FLAG NO
[2024-01-22 07:08] LABS: Basophils Percent Auto 0.4 % (0-2); Eosinophils Absolute Auto 0.4 X10*3/uL (0.0-0.4); Eosinophils Percent Auto 7.7 % (0-4); Hematocrit 23.9 % (42.0-52.0); Hemoglobin 7.5 g/dl (14.0-18.0); Imm Gran Abs Auto 0.02 X10*3/uL (0.00-0.03); Imm Gran Pct Auto 0.4 % (0.0-0.4); Mean Corpuscular HGB Conc 31.4 g/dl (31.0-36.0); Mean Corpuscular Hemoglobin 27.3 pg (27.0-33.0); Mean Corpuscular Volume 86.9 fL (80.0-98.0); Mean Platelet Volume 10.1 fL (9.4-12.4); Monocytes Absolute Auto 0.3 X10*3/uL (0.1-1.2); Monocytes Percent Auto 4.8 % (2-11); Neutrophils Absolute Auto 3.7 x10*3/uL (2.0-8.3); Neutrophils Percent Auto 67.7 % (45-73); Platelet Count 169 X10*3/uL (160-400); Red Blood Count 2.75 X10*6/uL (4.60-5.80); Red Cell Distribution Width 16.9 % (11.0-16.0); White Blood Count 5.5 X10*3/uL (4.8-10.8)
[2024-01-22 07:23] LABS: Anion Gap 13 (12-20); Blood Urea Nitrogen 11 mg/dL (9-16); Calcium 8.8 mg/dL (8.4-10.2); Carbon Dioxide 25 mmol/L (22-29); Chloride 111 mmol/L (96-108); Creatinine Clr Calc Pharmacy 85.7; Estimated Glomerular Filt Rate > 60; Glucose Fasting 120 mg/dL (60-99); Magnesium 1.6 mg/dL (1.6-2.6); Potassium 3.2 mmol/L (3.3-5.1); Sodium 146 mmol/L (135-145)
[2024-01-22 07:30] VITALS: BP 174/79; PULSE 54; RESP 18; TEMP 37.2; O2SAT 98
--- NOTE | 2024-01-22 10:11 | MHC.CLN ---
F/U PT TRANSFERRED BACK TO MEDICAL FLOOR PT CONTINUES WITH POOR PO DIET RX: GRD M/S WITH HT LIQ-APPROPRIATE PT WITH INCREASED NUTRITION RISK R/T PRESSURE INJURY PT RECEIVING ENSURE MAX BID AND MAGIC CUP TID TO PROMOTE WOUND HEALING ENSURE MAX PROVIDES 300KCALS, 60G PROTEIN MAGIC CUP TID PROVIDES 870KCALS, 27G PROTEIN (HONEY THICK CONSISTENCY) MONITOR PO INTAKE AND ENCOURAGE SUPPLEMENTS
[2024-01-22 11:22] VITALS: BP 150/71; PULSE 55; RESP 18; TEMP 37.1; O2SAT 97
[2024-01-22] MEDS: Simethicone 80 MG TAB.CHEW PO ×3 (11:33→21:29)
[2024-01-22] MEDS: Midodrine HCl 5 MG TABLET PO ×3 (11:33→18:08)
[2024-01-22] MEDS: levETIRAcetam Oral Soln 500 MG/5 ML 1000 MG PO ×2 (11:33→21:29)
[2024-01-22] MEDS: Apixaban 5 MG TABLET PO ×2 (11:33→21:29)
[2024-01-22] MEDS: Multivitamin TABLET 1 TAB PO (11:33)
[2024-01-22] MEDS: Ascorbic Acid 500 MG TABLET 1000 MG PO (11:34)
[2024-01-22] MEDS: Methenamine Hippurate 1 GM TABLET PO ×2 (11:34→21:28)
[2024-01-22] MEDS: Amiodarone HCL 200 MG TABLET PO ×2 (11:34→21:29)
[2024-01-22] MEDS: Ferrous Sulfate 324 MG TABLET.DR PO (11:34)
[2024-01-22] MEDS: vancomycin HCL 125 MG CAPSULE PO ×2 (11:34→21:29)
[2024-01-22] MEDS: Escitalopram Oxalate 10 MG TABLET PO (11:34)
[2024-01-22] MEDS: Fluconazole 100 MG TABLET PO (11:34)
[2024-01-22] MEDS: Nystatin Powder 15 GM BOTTLE 1 APPL TOPICAL ×3 (11:36→21:33)
[2024-01-22] MEDS: Collagenase Clostridium Hist. 30 GM TUBE 1 APPL TOPICAL (11:37)
[2024-01-22] MEDS: Betamethasone Dip Aug 0.05% Cr 15 GM TUBE 1 APPL TOPICAL ×2 (11:38→21:33)
[2024-01-22] MEDS: Potassium Chloride Packet 20 MEQ PACKET 40 MEQ PO ×2 (11:50→21:28)
--- NOTE | 2024-01-22 13:43 | MHC.CM.PN ---
EMR reviewed and per MD rounds, pt is not medically cleared for discharge, pt awaiting a MBSS.
[2024-01-22 16:00] VITALS: BP 172/88; PULSE 71; RESP 18; TEMP 35.9; O2SAT 99
--- NOTE | 2024-01-22 18:02 | MHC.SLORD ---
Speech Language Pathology Order Status: MBSS completed. Penetration noted above the vocal folds with thin consistency. No evidence of aspiration. Mild residue on the tongue base, valleculae, and posterior pharyngeal wall subsequently cleared. Recommend GROUND/MECH ALTERED (NDD2) diet and THIN liquids with aspiration precautions and 1:1 feeding. Results sent to Dr. Kline via [employer]. Full report to follow.
[2024-01-22] MEDS: 0.9 % Sodium Chloride Flush 3 ML SYRINGE IVFLUSH ×2 (18:08→23:23)
[2024-01-22 19:54] VITALS: BP 155/64; PULSE 58; RESP 17; TEMP 36.7; O2SAT 93
[2024-01-22] MEDS: oxyBUTYnin chloride ER 5 MG TAB.ER.24 PO (21:28)
[2024-01-22 23:13] VITALS: BP 171/87; PULSE 53; RESP 17; TEMP 37.3
[2024-01-23 04:00] VITALS: BP 181/79; PULSE 53; RESP 17; TEMP 37.1; O2SAT 100
[2024-01-23] MEDS: Omeprazole 20 MG CAPSULE.DR PO ×2 (05:56→16:38)
[2024-01-23 07:36] VITALS: BP 170/70; PULSE 56; RESP 16; TEMP 36.7; O2SAT 98
[2024-01-23] MEDS: levETIRAcetam Oral Soln 500 MG/5 ML 1000 MG PO ×2 (08:12→21:07)
[2024-01-23] MEDS: Methenamine Hippurate 1 GM TABLET PO ×2 (08:12→21:07)
[2024-01-23] MEDS: Apixaban 5 MG TABLET PO ×2 (08:12→21:07)
[2024-01-23] MEDS: Escitalopram Oxalate 10 MG TABLET PO (08:12)
[2024-01-23] MEDS: Simethicone 80 MG TAB.CHEW PO ×3 (08:12→21:08)
[2024-01-23] MEDS: Fluconazole 100 MG TABLET PO (08:12)
[2024-01-23] MEDS: Ascorbic Acid 500 MG TABLET 1000 MG PO (08:13)
[2024-01-23] MEDS: Amiodarone HCL 200 MG TABLET PO ×2 (08:13→21:07)
[2024-01-23] MEDS: Multivitamin TABLET 1 TAB PO (08:13)
[2024-01-23] MEDS: Ferrous Sulfate 324 MG TABLET.DR PO (08:13)
[2024-01-23] MEDS: vancomycin HCL 125 MG CAPSULE PO ×2 (08:13→21:07)
[2024-01-23] MEDS: 0.9 % Sodium Chloride Flush 3 ML SYRINGE IVFLUSH ×3 (08:13→23:11)
[2024-01-23] MEDS: Midodrine HCl 5 MG TABLET PO ×3 (08:13→16:38)
[2024-01-23] MEDS: Betamethasone Dip Aug 0.05% Cr 15 GM TUBE 1 APPL TOPICAL ×2 (08:26→21:20)
[2024-01-23] MEDS: Nystatin Powder 15 GM BOTTLE 1 APPL TOPICAL ×3 (08:26→21:20)
[2024-01-23] MEDS: Collagenase Clostridium Hist. 30 GM TUBE 1 APPL TOPICAL (08:27)
[2024-01-23 11:22] VITALS: BP 179/71; PULSE 50; RESP 18; TEMP 36.4; O2SAT 97
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
--- NOTE | 2024-01-23 14:04 | MHC.SPEECHCO ---
Pt seen with CABINET PROFESSIONAL present and his meal tray untouched. Per CABINET PROFESSIONAL, Pt refused to eat with TALENT DEVELOPMENT ANALYST. [place] attempted with Ice Cream, but he responded clearing stating no, clenching his lips, and turning his head to the side. [place] informed MD via [employer] over suspected regression.
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
[2024-01-23 15:30] VITALS: BP 183/66; PULSE 73; RESP 23; TEMP 36.7; O2SAT 96
[2024-01-23 20:00] VITALS: BP 157/65; PULSE 50; RESP 20; TEMP 37; O2SAT 97
[2024-01-23] MEDS: oxyBUTYnin chloride ER 5 MG TAB.ER.24 PO (21:08)
[2024-01-24] VITALS (8 sets, daily range): BP systolic 119–162; BP diastolic 51–83; PULSE 51–84; RESP 8–20; TEMP 36.2–37.6; O2SAT 95–100; BMI 29.5
[2024-01-24] MEDS: Omeprazole 20 MG CAPSULE.DR PO ×2 (05:38→16:53)
[2024-01-24 06:28] LABS: MANUAL DIFF FLAG NO
[2024-01-24 06:56] LABS: Alanine Aminotransferase 16 U/L (0-40); Albumin Level 3.5 g/dL (3.5-5.0); Alkaline Phosphatase 68 U/L (39-117); Anion Gap 12 (12-20); Aspartate Amino Transferase 19 U/L (5-37); Bilirubin Total 0.2 mg/dL (0.0-1.0); Blood Urea Nitrogen 12 mg/dL (9-16); Calcium 8.9 mg/dL (8.4-10.2); Carbon Dioxide 26 mmol/L (22-29); Chloride 110 mmol/L (96-108); Creatinine Clr Calc Pharmacy 100.5; Estimated Glomerular Filt Rate > 60; Glucose Fasting 89 mg/dL (60-99); Sodium 145 mmol/L (135-145); Total Protein 7.2 g/dL (6.5-8.0)
[2024-01-24 06:57] LABS: Basophils Percent Auto 0.5 % (0-2); Eosinophils Absolute Auto 0.4 X10*3/uL (0.0-0.4); Eosinophils Percent Auto 7.8 % (0-4); Hematocrit 24.6 % (42.0-52.0); Hemoglobin 7.8 g/dl (14.0-18.0); Imm Gran Abs Auto 0.02 X10*3/uL (0.00-0.03); Imm Gran Pct Auto 0.4 % (0.0-0.4); Lymphocytes Absolute Auto 1.3 X10*3/uL (1.2-4.9); Lymphocytes Percent Auto 23.4 % (20-40); Mean Corpuscular HGB Conc 31.7 g/dl (31.0-36.0); Mean Corpuscular Hemoglobin 27.3 pg (27.0-33.0); Mean Platelet Volume 10.4 fL (9.4-12.4); Monocytes Absolute Auto 0.2 X10*3/uL (0.1-1.2); Monocytes Percent Auto 3.4 % (2-11); Neutrophils Absolute Auto 3.7 x10*3/uL (2.0-8.3); Neutrophils Percent Auto 64.5 % (45-73); Platelet Count 206 X10*3/uL (160-400); Red Blood Count 2.86 X10*6/uL (4.60-5.80); Red Cell Distribution Width 16.7 % (11.0-16.0); White Blood Count 5.7 X10*3/uL (4.8-10.8)
[2024-01-24] MEDS: Multivitamin TABLET 1 TAB PO (09:26)
[2024-01-24] MEDS: Ascorbic Acid 500 MG TABLET 1000 MG PO (09:26)
[2024-01-24] MEDS: Fluconazole 100 MG TABLET PO (09:26)
[2024-01-24] MEDS: Amiodarone HCL 200 MG TABLET PO ×2 (09:26→21:15)
[2024-01-24] MEDS: Potassium Chloride Packet 20 MEQ PACKET 40 MEQ PO ×2 (09:26→21:15)
[2024-01-24] MEDS: Midodrine HCl 5 MG TABLET PO ×3 (09:26→16:59)
[2024-01-24] MEDS: Ferrous Sulfate 324 MG TABLET.DR PO (09:26)
[2024-01-24] MEDS: Methenamine Hippurate 1 GM TABLET PO ×2 (09:26→21:15)
[2024-01-24] MEDS: Escitalopram Oxalate 10 MG TABLET PO (09:26)
[2024-01-24] MEDS: Apixaban 5 MG TABLET PO ×2 (09:26→21:15)
[2024-01-24] MEDS: levETIRAcetam Oral Soln 500 MG/5 ML 1000 MG PO ×2 (09:26→21:16)
[2024-01-24] MEDS: Simethicone 80 MG TAB.CHEW PO ×3 (09:26→21:15)
[2024-01-24] MEDS: vancomycin HCL 125 MG CAPSULE PO ×2 (09:26→21:15)
[2024-01-24] MEDS: 0.9 % Sodium Chloride Flush 3 ML SYRINGE IVFLUSH ×2 (09:27→16:53)
[2024-01-24] MEDS: Nystatin Powder 15 GM BOTTLE 1 APPL TOPICAL ×3 (09:27→21:18)
[2024-01-24] MEDS: Betamethasone Dip Aug 0.05% Cr 15 GM TUBE 1 APPL TOPICAL ×2 (09:27→22:23)
[2024-01-24] MEDS: Collagenase Clostridium Hist. 30 GM TUBE 1 APPL TOPICAL (09:27)
--- NOTE | 2024-01-24 11:17 | MHC.CLN ---
F/U PT CONTINUES WITH VARIABLE PO DIET RX: GRD M/S -APPROPRIATE PT WITH INCREASED NUTRITION RISK R/T PRESSURE INJURY PT RECEIVING ENSURE MAX BID AND MAGIC CUP TID TO PROMOTE WOUND HEALING ENSURE MAX PROVIDES 300KCALS, 60G PROTEIN MAGIC CUP TID PROVIDES 870KCALS, 27G PROTEIN MONITOR PO INTAKE AND ENCOURAGE SUPPLEMENTS
--- NOTE | 2024-01-24 12:04 | MHC.CM.PN ---
EMR reviewed and per MD rounds, pt is not medically cleared for discharge due to monitoring of electrolytes.
--- NOTE | 2024-01-24 12:25 | MHC.SL.SWA ---
Speech Pathologist Impression: Mild dysphagia Risk of Aspiration Due to: Generalized weakness Dysphasia Diet Status: Tolerating ground/mechanical altered diet with thin liquids Liquid Consistency and Strategies for Safe Swallow: Liquid Intake Recommendation: Thin Liquid Intake Strategies: Small Sips Straws OK Solid Food Consistency: Dietary Recommendations: Grnd/Mech Altered (NDD2) Oral Medication Intake: Whole with Puree Please contact the pharmacy regarding appropriate crushable or liquid drug formulations that are available whenever modified delivery is recommended. Compensatory Strategies and Precautions to be Taken for Safe Swallow: Sitting Upright (90 deg) Double Swallow Small Bites and Sips Alternate Liquids/Solids Rate of Ingestion Change Supervision While Eating and Drinking for Safe Swallow: Total Assistance (1:1) Foods to Avoid: Hard tough to chew solids Swallowing Recommended Treatments: Compens. Strategy Educat. Recommendation for Speech: Inpatient Speech Therapy Comment: Intake Recommendations: Route: PO Diet Grade: Mechanical Soft Liquid Consistencies: Thin REACHER will continue to follow during inpatient stay to monitor tolerance and provide further education for compensatory strategies. Therapy Recommendations: Therapy will be continued while inpatient M-F PRN Prognosis for Improvement: The prognosis for the patient to meet nutritional needs by mouth is good based on degree of impairment, stimulability for treatment. Frequency/Duration: M-F PRN Date Range for Service Req: Timeline to reassess: PRN Die Maker Stamping Clinican/Clinical Fellow: No Supervisory Statement: I have reviewed and agree with the student/clinical fellow's documentation: N/A Speech Language Pathologist: Kelsey Jacobo M.S. [facility]
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
[2024-01-24] MEDS: oxyBUTYnin chloride ER 5 MG TAB.ER.24 PO (21:17)
[2024-01-25] MEDS: 0.9 % Sodium Chloride Flush 3 ML SYRINGE IVFLUSH ×3 (00:14→15:32)
[2024-01-25 04:00] VITALS: BP 149/73; PULSE 53; RESP 16; TEMP 37.7; O2SAT 97
[2024-01-25 06:00] VITALS: BMI 29.1
[2024-01-25] MEDS: Omeprazole 20 MG CAPSULE.DR PO ×2 (06:06→15:32)
[2024-01-25 06:35] LABS: MANUAL DIFF FLAG NO
[2024-01-25 06:56] LABS: Basophils Percent Auto 0.5 % (0-2); Eosinophils Absolute Auto 0.4 X10*3/uL (0.0-0.4); Imm Gran Abs Auto 0.02 X10*3/uL (0.00-0.03); Imm Gran Pct Auto 0.3 % (0.0-0.4); Lymphocytes Absolute Auto 1.2 X10*3/uL (1.2-4.9); Lymphocytes Percent Auto 20.1 % (20-40); Mean Corpuscular Hemoglobin 27.6 pg (27.0-33.0); Mean Corpuscular Volume 86.2 fL (80.0-98.0); Mean Platelet Volume 10.2 fL (9.4-12.4); Monocytes Absolute Auto 0.2 X10*3/uL (0.1-1.2); Monocytes Percent Auto 3.6 % (2-11); Neutrophils Absolute Auto 4.2 x10*3/uL (2.0-8.3); Neutrophils Percent Auto 68.5 % (45-73); Platelet Count 211 X10*3/uL (160-400); Red Cell Distribution Width 16.8 % (11.0-16.0); White Blood Count 6.1 X10*3/uL (4.8-10.8)
[2024-01-25 07:09] LABS: Alanine Aminotransferase 15 U/L (0-40); Albumin Level 3.6 g/dL (3.5-5.0); Alkaline Phosphatase 71 U/L (39-117); Anion Gap 14 (12-20); Aspartate Amino Transferase 20 U/L (5-37); Bilirubin Total 0.2 mg/dL (0.0-1.0); Blood Urea Nitrogen 18 mg/dL (9-16); Calcium 9.5 mg/dL (8.4-10.2); Carbon Dioxide 25 mmol/L (22-29); Chloride 109 mmol/L (96-108); Creatinine Clr Calc Pharmacy 94.7; Estimated Glomerular Filt Rate > 60; Glucose Fasting 101 mg/dL (60-99); Magnesium 1.5 mg/dL (1.6-2.6); Potassium 3.6 mmol/L (3.3-5.1); Sodium 144 mmol/L (135-145); Total Protein 7.3 g/dL (6.5-8.0)
[2024-01-25 08:00] VITALS: BP 158/75; PULSE 51; RESP 20; TEMP 36.8; O2SAT 98
[2024-01-25] MEDS: Magnesium Sulfate/H2O 2 GM/50 ML PIGGYBACK IV (08:18)
[2024-01-25] MEDS: levETIRAcetam Oral Soln 500 MG/5 ML 1000 MG PO ×2 (08:19→20:57)
[2024-01-25] MEDS: Apixaban 5 MG TABLET PO ×2 (08:19→20:56)
[2024-01-25] MEDS: Simethicone 80 MG TAB.CHEW PO ×3 (08:19→20:56)
[2024-01-25] MEDS: Ferrous Sulfate 324 MG TABLET.DR PO (08:19)
[2024-01-25] MEDS: vancomycin HCL 125 MG CAPSULE PO ×2 (08:19→20:56)
[2024-01-25] MEDS: Midodrine HCl 5 MG TABLET PO (08:19)
[2024-01-25] MEDS: Ascorbic Acid 500 MG TABLET 1000 MG PO (08:19)
[2024-01-25] MEDS: Methenamine Hippurate 1 GM TABLET PO ×2 (08:19→20:56)
[2024-01-25] MEDS: Escitalopram Oxalate 10 MG TABLET PO (08:19)
[2024-01-25] MEDS: Amiodarone HCL 200 MG TABLET PO ×2 (08:19→20:57)
[2024-01-25] MEDS: Multivitamin TABLET 1 TAB PO (08:19)
[2024-01-25] MEDS: Fluconazole 100 MG TABLET PO (08:19)
[2024-01-25] MEDS: Potassium Chloride Packet 20 MEQ PACKET 40 MEQ PO (08:20)
[2024-01-25] MEDS: Collagenase Clostridium Hist. 30 GM TUBE 1 APPL TOPICAL (08:23)
[2024-01-25] MEDS: Betamethasone Dip Aug 0.05% Cr 15 GM TUBE 1 APPL TOPICAL ×2 (08:23→21:06)
[2024-01-25] MEDS: Nystatin Powder 15 GM BOTTLE 1 APPL TOPICAL ×3 (08:23→21:02)
[2024-01-25 11:45] VITALS: BP 120/56; PULSE 50; RESP 20; TEMP 37.1; O2SAT 97
--- NOTE | 2024-01-25 13:41 | MHC.SL.SWA ---
Speech Pathologist Impression: Risk of Aspiration Due to: Hx of Recent Extubation Weak Cough Weak Voice Dysphasia Diet Status: Recommend continue on current diet of Ground Mechanical (NDD2) with THIN liquids, pills whole with puree, 1-1 feeding. Liquid Consistency and Strategies for Safe Swallow: Liquid Intake Recommendation: Thin Liquid Intake Strategies: Unrestricted Solid Food Consistency: Dietary Recommendations: Grnd/Mech Altered (NDD2) Additional Modifications to Solid Foods: Patient requires 1:1 feed, Oral Medication Intake: Whole with Puree Please contact the pharmacy regarding appropriate crushable or liquid drug formulations that are available whenever modified delivery is recommended. Compensatory Strategies and Precautions to be Taken for Safe Swallow: Sitting Upright (90 deg) Liquids from Straw Small Bites and Sips Supervision While Eating and Drinking for Safe Swallow: Total Assistance (1:1) Foods to Avoid: Hard tough to chew solids Swallowing Recommended Treatments: Compens. Strategy Educat. Recommendation for Speech: Inpatient Speech Therapy Comment: Patient seen at lunch for toleration of current diet. Patient requested TALENT PROGRAM MANAGER wipe his eyes X2, and is bothered by watery eyes. Patient requested soda from tray initially, was given sips by straw, which patient tolerated very well, demonstrating well timed/coordinated serial sips. Patient was given bites of ground meat with potatoes, again tolerating well with timely oral phase and timely swallow. Patient though ate approximately 1/4 of meal and then refused. Patient offered and encouraged to eat magic cup nutritional supplement that came with meal, also ate approximately 1/4 of this cup. Patient is tolerating diet well, but continues to eat only small amounts at each meal. Recommend continue on current diet of Ground Mechanical (NDD2) with THIN liquids, pills whole with puree, 1-1 feeding. Patient may benefit from nutritional snacks between meals to encourage PO. Frequency/Duration: M-F PRN Date Range for Service Req: Timeline to reassess: PRN Senior Painter Clinican/Clinical Fellow: No Supervisory Statement: I have reviewed and agree with the student/clinical fellow's documentation: N/A Speech Language Pathologist: Leola Escobar M.A., [facility]-TALENT PROGRAM MANAGER
--- NOTE | 2024-01-25 14:11 | HO.WOUND ---
Wound Consult: Follow up 73yr old? male admitted to [facility] on 01/09/24 - See progress notes and H&P for detailed history.? Wound consult follow up for Sacral Wound POA.? Patient was re-admitted to the ICU unit for care.? Sacrococcygeal (Sacrum, coccyx and buttock) on Admission 01/09/24 01/16/24 01/18/24 01/25/24 Sacrum and Coccyx Etiology: ?remains Unstageable Pressure Injury ?Present on Admission Wound Bed: Full thickness tissue loss, red moist tissue, improving yellow moist slough Right Sacrum open partial thickness tissue loss, clean wound bed noted with s/s of MASD - Left Sacrum reopening to inferior aspect with adherent yellow slough post ICU admission Drainage / Odor: yellow faust Edges: ? irregular Emely wound: ?Perirectal area noted for MASD - blanchable purple pigmentation noted Goals of Treatment: ? Off Load Pressure and continue Santyl to necrotic tissue wound beds for enzymatic debridement and foam dressing to protect from friction and aid in off loading pressure No new topical recommendations needed at this time. Pressure Injury measures currently in place, LINO mattress, wedges for off loading, Q 2 hrs turns, heels off loaded with pillows and or heel protector boots, barrier cream in place and nutrition following. Recommendations: 1. Turn and Reposition every 2 hours and as needed for patient comfort.? Use pillows or wedges to support off loading positions. 2. Off Load all bony prominences with use of pillows and heel boots if needed.? Apply Preventative foams where needed. ? 3. Monitor for incontinence and moisture control, use barrier creams when needed for prevention and treatment. 4. Provide adequate and supplemental nutrition.? Nutrition following. 5. Continue low air loss mattress. 6. When applicable maintain blood glucose levels per Providers order. 7. Sacrum - Off Load Pressure? - Cleanse with PH balance spray or wipes, and irrigate wound bed with NS, pat dry. ?Apply thin layer of Triad to periwound. ?Apply thick layer of Santyl to wound beds, cover / pack with saline moist gauze. Cover with ABD pad. Change Daily. Re-consult wound care Nurse for wound deterioration or wound changes.
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
[2024-01-25 16:00] VITALS: BP 110/54; RESP 19; TEMP 36.6; O2SAT 97
[2024-01-25 20:00] VITALS: BP 124/59; PULSE 51; RESP 20; TEMP 36.1; O2SAT 96
[2024-01-25] MEDS: oxyBUTYnin chloride ER 5 MG TAB.ER.24 PO (20:56)
[2024-01-25] MEDS: Midodrine HCl 2.5 MG TABLET PO (20:56)
[2024-01-26] VITALS: BP 128/61; PULSE 50; RESP 18; TEMP 36.7; O2SAT 97
[2024-01-26] MEDS: 0.9 % Sodium Chloride Flush 3 ML SYRINGE IVFLUSH ×3 (01:00→16:40)
--- NOTE | 2024-01-26 02:28 | PC.NURSE ---
1053; Patient's HR dropped to 35 on tele, pt asymptomatic and alert. Dr Marin notified , no new orders at this time
[2024-01-26 03:59] VITALS: BP 146/67; PULSE 49; RESP 18; TEMP 36; O2SAT 98
[2024-01-26 06:00] VITALS: BMI 29.1
[2024-01-26] MEDS: Omeprazole 20 MG CAPSULE.DR PO ×2 (06:13→16:39)
--- NOTE | 2024-01-26 06:29 | PC.RT ---
Pt refused NOC BIPAP
[2024-01-26 07:44] VITALS: BP 138/60; PULSE 49; RESP 20; TEMP 36.7; O2SAT 99
[2024-01-26] MEDS: levETIRAcetam Oral Soln 500 MG/5 ML 1000 MG PO ×2 (10:29→21:10)
[2024-01-26] MEDS: Amiodarone HCL 200 MG TABLET PO ×2 (10:30→21:11)
[2024-01-26] MEDS: Apixaban 5 MG TABLET PO (10:30)
[2024-01-26] MEDS: Simethicone 80 MG TAB.CHEW PO ×3 (10:30→21:11)
[2024-01-26] MEDS: vancomycin HCL 125 MG CAPSULE PO ×2 (10:30→21:11)
[2024-01-26] MEDS: Ascorbic Acid 500 MG TABLET 1000 MG PO (10:30)
[2024-01-26] MEDS: Methenamine Hippurate 1 GM TABLET PO ×2 (10:30→21:11)
[2024-01-26] MEDS: Escitalopram Oxalate 10 MG TABLET PO (10:30)
[2024-01-26] MEDS: Midodrine HCl 2.5 MG TABLET PO ×3 (10:30→21:11)
[2024-01-26] MEDS: Ferrous Sulfate 324 MG TABLET.DR PO (10:30)
[2024-01-26] MEDS: Multivitamin TABLET 1 TAB PO (10:30)
[2024-01-26] MEDS: Collagenase Clostridium Hist. 30 GM TUBE 1 APPL TOPICAL (10:31)
[2024-01-26] MEDS: Betamethasone Dip Aug 0.05% Cr 15 GM TUBE 1 APPL TOPICAL (10:31)
[2024-01-26] MEDS: Nystatin Powder 15 GM BOTTLE 1 APPL TOPICAL ×3 (10:32→21:11)
--- NOTE | 2024-01-26 11:04 | MHC.SL.SWA ---
Speech Pathologist Impression: Risk of Aspiration Risk of Aspiration Due to: Hx of Recent Extubation Weak Cough Weak Voice Dysphasia Diet Status: Recommend continue on current diet of Ground Mechanical (NDD2) with THIN liquids, pills whole with puree, 1-1 feeding. Liquid Consistency and Strategies for Safe Swallow: Liquid Intake Recommendation: Thin Liquid Intake Strategies: Unrestricted Solid Food Consistency: Dietary Recommendations: Grnd/Mech Altered (NDD2) Oral Medication Intake: Whole with Puree Please contact the pharmacy regarding appropriate crushable or liquid drug formulations that are available whenever modified delivery is recommended. Compensatory Strategies and Precautions to be Taken for Safe Swallow: Sitting Upright (90 deg) Liquids from Straw Small Bites and Sips Supervision While Eating and Drinking for Safe Swallow: Total Assistance (1:1) Foods to Avoid: Hard tough to chew solids Swallowing Recommended Treatments: Compens. Strategy Educat. Recommendation for Speech: Inpatient Speech Therapy Comment: Intake Recommendations: Route: PO Diet Grade: Mechanical Soft Liquid Consistencies: Thin Post-Study Functional Oral Intake Scale (FOIS): 5- Total oral intake of multiple consistencies requiring special preparation Mild oropharyngeal dysphagia characterized by disorganized mastication pattern, delayed lingual transport, incomplete laryngeal elevation, and partial epiglottic inversion. Minimal oral and pharyngeal residue was cleared with subsequent swallows. Trace penetration with thin liquids also spontaneously cleared. No evidence of aspiration during this exam. Recommend continue on GROUND/MECH ALTERED (NDD2) diet for ease of mastication and UPGRADE to THIN liquids, with pills administered WHOLE in PUREE. Patient will continue to require 1:1 feeding and is recommended strategies to maximize safety: upright positioning during meal time, give small bites/sips, alternate bites/sips, dry swallow as needed to clear residue. TILE GRADER will continue to follow during inpatient stay to monitor tolerance and provide further education for compensatory strategies. Therapy Recommendations: Therapy will be continued while inpatient M-F PRN Prognosis for Improvement: The prognosis for the patient to meet nutritional needs by mouth is good based on degree of impairment, stimulability for treatment. Frequency/Duration: M-F PRN Date Range for Service Req: Timeline to reassess: PRN [employer] Clinican/Clinical Fellow: No Supervisory Statement: I have reviewed and agree with the student/clinical fellow's documentation: N/A Speech Language Pathologist: Pamela Peralta M.A., [facility]-TILE GRADER
[2024-01-26 11:45] VITALS: BP 113/56; PULSE 58; RESP 20; TEMP 36.1; O2SAT 100
--- NOTE | 2024-01-26 13:28 | MHC.CLN ---
F/U PT CONTINUES WITH VARIABLE PO DIET RX: GRD M/S -APPROPRIATE PT WITH INCREASED NUTRITION RISK R/T PRESSURE INJURY PT RECEIVING ENSURE MAX BID AND MAGIC CUP TID TO PROMOTE WOUND HEALING ENSURE MAX PROVIDES 300KCALS, 60G PROTEIN MAGIC CUP TID PROVIDES 870KCALS, 27G PROTEIN CONTINUE TO MONITOR PO INTAKE AND ENCOURAGE SUPPLEMENTS
[2024-01-26 14:21] LABS: Hematocrit 25.9 % (42.0-52.0)
--- NOTE | 2024-01-26 14:33 | P.DS_ITS ---
DS: Providers Provider Date of Service: 01/26/24 Date of admission: 01/09/24 12:10 Date of discharge: 01/26/24 Primary care physician: Aba Linares MD Consults: 01/09/24 15:16 Consult to Neurology Stat Consulting Provider: Lorena Milligan Reason for consultation: c/f Status Epilepticus Has provider been notified: Yes 01/09/24 19:15 Consult to Wound Care Routine Reason for consultation: pressure injury to buttocks 01/15/24 04:40 Consult to Urology Routine Consulting Provider: [facility] [place] [facility] Reason for consultation: hematuria/suprapubic cath Has provider been notified: No 01/15/24 11:38 Consult to Infectious Diseases Routine Consulting Provider: [facility] [place] [facility] Reason for consultation: uti(recently dc from [facility] [place] -on levaquin/fluconazole/vanco) Has provider been notified: Yes 01/17/24 11:27 Consult to Infectious Diseases Routine Consulting Provider: [facility] [place] [facility] Reason for consultation: recurrent pseudomonas uti 01/17/24 14:58 Consult to Cardiology Routine Consulting Provider: [facility] [place] [facility] Reason for consultation: afib rvr Attending physician on discharge: Marty Beard Discharging clinician: Mallory Goldman DS: Diagnosis Discharge Diagnosis (1) Atrial fibrillation with RVR: Status: Acute (2) Status epilepticus: Status: Acute DS: Summary Hospital Course Hospital Course: From H&P on the day of admission Patient is a 73 Y M with traumatic spinal cord injury c/b paraplegia, neurogenic bladder w/ chronic suprapubic catheter, c/b pseudomonas urinary tract infection, hypertension, CAD, atrial fibrillation on apixaban, and LATANYA on CPAP, presenting to emergency department on 01/08 with question seizure; per EMS, [facility] noted prior prolonged episodes of shaking and loss of consciousness for upwards of 40 minutes, developed episode of shaking w/ loss of consciousness for greater than 20 minutes; on arrival to emergency department, patient intubated; broad work-up initiated; laboratories suggestive of acute renal insufficiency; CT H, C, A/P demonstrating possible pyelonephrit is; otherwise, work-up grossly unrevealing 73yo M with paraplegia, spasticity on baclofen pump, neurogenic bladder with SPC, HTN, CAD, AF, LATANYA on CPAP admitted to ICU 01/09/24 with AMS + seizure activity, intubated for airway protection and started on levetiracetam MRI with no acute findings, baclofen pump working appropriately extubated 01/14/24 and downgraded to telemetry 01/15/24 on 01/17/24 developed AF/RVR that could not be controlled with IV metoprolol + digoxin and started to have low BP so transferred to ICU and started on amiodarone drip and briefly required pressor support converted to NSR and changed to PO amiodarone, stepped down to telemetry 01/19/24 remains in NSR Hospital course by problem: Seizures--controlled Initially admitted for status epilepticus requiring propofol and Versed drips in the ICU and intubated for airway protection. Started on Keppra. With no recurrent seizure activity. Acute metabolic encephalopathy due to status epilepticus Resolved s/p intubation due to status epilepticus leading to poor respiratory effort- extubated 01/13 Status post MRI of the brain with no acute intracranial pathology LP with normal cell count, normal sugars History of Pseudomonas UTI Initially treated with Zosyn due to history of Pseudomonas urine culture negative Zosyn stopped Hypernatremia resolved with free water replacement Hx CDiff completed course - ID rec MWF dosing until follow up with [facility] Paroxysmal atrial fibrillation Heart rate significantly elevated and blood pressure dropped requiring transfer back to the ICU on January 16 Was started on amiodarone drip and briefly required pressor support Converted to normal sinus rhythm and changed to p.o. amiodarone, downgraded back to medical floor on January 18 eliquis on hold or hematuria Hypokalemia/hypomagnesemia Improved with replacement hematuria eliquis initially placed on hold, resumed 01/20. With some persistent hematuria, discussed with Urology, we will hold Eliquis for 7 days. CBC has remained stable despite mild hematuria, no need for continued hospitalization per Urology. Recommend to follow-up with primary urologist for close monitoring. Recommend repeat CBC in 1 week. h/o spastic paraplegia baclofen pump confirmed to be working neurogenic bladder with chronic suprapubic catheter DYLAN Resolved Chronic anemia at baseline Decubitus ulcer, POA Continue local wound care Time Attestation Discharge Coordination Time (in mins): 45 Quality: Safe Use of Opioids Does Pt have an Active Cancer Diagnosis on the Problem List?: No Quality: Stroke Does the patient have a stroke diagnosis?: No Physical Exam Vital Signs: Vital Signs: Last Vital Signs Temp 97.0 F 01/26/24 11:45 Pulse 58 01/26/24 11:45 Resp 20 01/26/24 11:45 BP 113/56 L 01/26/24 11:45 Pulse Ox 100 01/26/24 11:45 O2 Del Method Room Air 01/26/24 11:45 O2 Flow Rate 25 01/09/24 18:00 FiO2 21 01/19/24 07:00 BMI result Body Mass Index 29.1 Const: General: cooperative, comfortable, alert and awake Nutritional Appearance: overweight Orientation/consciousness: patient oriented x3 GI: Inspection: No distended Palpation (GI): Soft to palpation and nontender : Other: Suprapubic catheter, punch colored Neuro: General: patient oriented x3 Extrem: Other: legs in off loading boots;b/l upper extremity contractures DS: Data Data Completed and Pending Completed studies during hospitalization [Text1]: Procedures Assistance with Respiratory Ventilation, Less than 24 Consecutive Hours, Continuous Positive Airway Pressure (11/13/23) Insertion of Infusion Device into Left Basilic Vein, Percutaneous Approach (11/13/23) Transfusion of Nonautologous Red Blood Cells into Peripheral Vein, Percutaneous Approach (11/13/23) Labs on day of discharge: Laboratory Results - last 24 hr 01/26/24 14:06 Hgb 8.0 L Hct 25.9 L Discharge Plan Discharge Anticipated Discharge Date/Time: 01/26/24 14:39 Patient Disposition: Home Health Service Discharge Diagnosis: Metabolic encephalopathy Status epilepticus Hematuria Referrals: [facility] [Outside] - 1 Week Aba Linares MD [Primary Care Provider] - 1 Week Lorena Milligan MD [Physician] - 1 Month Tj Little MD [Physician] - 1 Month Candida Schreiber MD [Physician] - 2 Weeks Discharge Medications: New baclofen 10 mg Tablet 5 mg PO TID PRN (Reason: spasms) Qty: 30 0RF midodrine 2.5 mg Tablet 2.5 mg PO TID 60 Days Qty: 180 0RF amiodarone 200 mg Tablet 200 mg PO BID 90 Days Qty: 180 0RF levetiracetam 500 mg/5 mL (5 mL) Solution 1,000 mg PO BID 90 Days Qty: 1800 0RF Santyl 250 unit/gram Ointment 1 appl topical DAILY Qty: 30 0RF Protocol: Apply to: Apply to: Sacrum vancomycin 125 mg Capsule 125 mg PO .MWF Qty: 30 0RF Continued multivitamin Tablet 1 tab PO DAILY docusate sodium 100 mg capsule 100 mg PO BID PRN (Reason: constipation) escitalopram oxalate 10 mg tablet 10 mg PO DAILY oxybutynin chloride 5 mg Tablet Extended Release 24hr 5 mg PO BEDTIME Qty: 90 0RF ferrous sulfate 324 mg (65 mg iron) tablet,delayed release (DR/EC) 324 mg PO DAILY Qty: 90 0RF clobetasol 0.05 % cream 1 appl topical BID acetaminophen 325 mg Tablet 650 mg PO Q6H PRN (Reason: Mild Pain (Scale Score 1-4)) vancomycin 125 mg Capsule 125 mg PO QID nystatin 100,000 unit/gram Powder 1 appl TOPICAL TID simethicone 80 mg Tablet,Chewable 80 mg PO TID aluminum-magnesium hydroxide 200-200 mg/5 mL Suspension 5 ml PO Q4H PRN (Reason: Dyspepsia) psyllium husk 0.4 gram Capsule 2 g PO Q6H PRN (Reason: Constipation) Rx Instructions: take with at least 8 oz. of water pantoprazole 40 mg tablet,delayed release (DR/EC) 40 mg PO BID ascorbic acid (vitamin C) 250 mg tablet 250 mg PO BID methenamine hippurate 1 gram tablet 1 g PO BID Held Eliquis 5 mg tablet 5 mg PO BID Hold Instructions: hold for 7 days, starting 01/25 Discontinued midodrine 5 mg Tablet 5 mg PO BID@0900,1500 Rx Instructions: do not give last dose of day after 6PM or within 4 hrs of bedtime gabapentin 300 mg capsule 300 mg PO TID baclofen 10 mg tablet 10 mg PO TID PRN (Reason: Muscle Spasm) No Action (DME) CPAP Machine/Device Device See Rx Instructions .Route Rx Instructions: As directed Discharge Orders: Discharge Order (Routine); Ordered 01/26/24 Ordered By: Mallory Goldman Activity on Discharge: As tolerated Stand Alone Forms: Patient Portal Discharge page Print Language: Vincentian Other Ambulatory Orders: Basic Metabolic Panel (Routine) Timeframe: 1 Week Facility: [facility] - Location: Laboratory Ordered By: Mallory Goldman Complete Blood Count no Diff (Routine) Timeframe: 1 Week Facility: [facility] - Location: Laboratory Ordered By: Mallory Goldman Care Plan Goals: see below Health Concerns: Status epilepticus/seizures Encephalopathy-resolved Hypokalemia-resolved Hematuria Atrial fibrillation Plan of Treatment: for h/o kidney stone and hematuria - call to schedule a follow-up appointment with your primary urologist; hold Eliquis for the next 7 days repeat CBC and chemistry in 1 week for seizures- take Keppra 1000 mg twice daily as prescribed. Call to schedule follow-up appointment with Neurology speech - NDD2 - ground/mechanically altered diet call to schedule follow up appointment with PCP dose of midodrine decreased to 2/5 bid for atrial fibrillation - started on amiodorone, take as prescribed. call to schedule follow up with smoke jumper dose of oral vancomycin has been decreased to once daily on monday, Monday, Monday until follow-up with Infectious diseases at [facility] wound care for sacrum - Off Load Pressure? - Cleanse with PH balance spray or wipes, and irrigate wound bed with NS, pat dry. ?Apply thin layer of Triad to periwound. ?Apply thick layer of Santyl to wound beds, cover / pack with saline moist gauze. Cover with ABD pad. Change Daily. Turn and Reposition every 2 hours and as needed for patient comfort.? Use pillows or wedges to support off loading positions. Recommend outpatient follow up in wound care clinic for ongoing wound care Assessment: see discharge summary
--- NOTE | 2024-01-26 15:42 | MHC.CM.PN ---
Addendum entered by Octavia Mahajan 01/26/24 15:47: Pt is active with [facility], DC info sent to them via [facility]. Original Note: Pt has been medically cleared for DC, he will go home today via BLS and resume his 24 hour care.
[2024-01-26 15:54] VITALS: BP 109/56; PULSE 48; RESP 18; TEMP 36.6; O2SAT 96
--- NOTE | 2024-01-26 16:13 | W.MHC.F2F ---
Service Date Service Date: 01/26/24 Encounter Date of encounter: 01/26/24 Reasons for Services Signs and symptoms assessed: needs penitentiary med reconciliation, assistance with wound care, care of suprapubic catheter Reason for penitentiary: wound care and medication management Reason for speech therapy: swallowing impairment Overseeing Care: Aba Linares Homebound: Leaving the home is medically contraindicated at this time without the asist of a device and/or another person due th the listed conditions above and below. Reason homebound: bedbound/chairbound Certification: Based on the above findings, I certify that this patient is confined to the home and needs intermittent penitentiary care, physical therapy and/or speech therapy, or continues to need occupational therapy. The patient is under my care, and I have initiated the establishment of the plan of care. The patient will be followed by a physician who will periodically review the plan of care. Time Spent With Patient Time: Total time managing care of this patient today ____ minutes.
[2024-01-26 20:00] VITALS: BP 120/63; PULSE 50; RESP 18; TEMP 36.6; O2SAT 99
[2024-01-26] MEDS: oxyBUTYnin chloride ER 5 MG TAB.ER.24 PO (21:10)
== END 2024-01-26 21:00 | disposition home health service (06) | DRG 100 ==
LOC: HO.ED 11:21 → HO.EDOVER 12:17 → HO.ICU 12:31 → HO.IMC 01-15 10:55 → HO.ICU 01-17 17:44 → HO.IMC 01-19 11:41
PROVIDERS: Family Medicine; Hospitalist; Internal Medicine; Internal Medicine Critical Care Medicine; Internal Medicine Pulmonary Disease; Nurse Practitioner Acute Care; Nurse Practitioner Family; Physician Assistant; Registered Nurse Community Health; Admitting Provider Internal Medicine Critical Care Medicine; Emergency Provider Emergency Medicine; PCP Internal Medicine; Visit Provider Physician Assistant Medical
DX: G40.901 Epilepsy, unspecified, not intractable, with status epilepticus (principal); J96.01 Acute respiratory failure with hypoxia; G82.20 Paraplegia, unspecified; N17.9 Acute kidney failure, unspecified; E87.0 Hyperosmolality and hypernatremia; D62 Acute posthemorrhagic anemia; V89.2XXS Person injured in unspecified motor-vehicle accident, traffic, sequela; L89.150 Pressure ulcer of sacral region, unstageable; E87.6 Hypokalemia; I25.10 Atherosclerotic heart disease of native coronary artery without angina pectoris; I48.0 Paroxysmal atrial fibrillation; N31.9 Neuromuscular dysfunction of bladder, unspecified; R31.0 Gross hematuria; G47.33 Obstructive sleep apnea (adult) (pediatric); I95.9 Hypotension, unspecified; Z97.8 Presence of other specified devices; Z20.822 Contact with and (suspected) exposure to COVID-19; Z93.1 Gastrostomy status; Z87.891 Personal history of nicotine dependence; Z79.01 Long term (current) use of anticoagulants; Z79.899 Other long term (current) drug therapy
CPT/HCPCS: 0241U; 36415; 62328; 70450; 70553; 71045; 71250; 74176; 74230; 80048; 80053; 80076; 80143; 80177; 80179; 80307; 81001; 82040; 82140; 82803; 82945; 82947; 83605; 83735; 83880; 84100; 84145; 84157; 84443; 84478; 84484; 85014; 85018; 85025; 85027; 85610; 85730; 86592; 86617; 86850; 86900; 86901; 86923; 87015; 87040; 87070; 87077; 87086; 87205; 87476; 87483; 87493; 87798; 89051; 92526; 92610; 92611; 93005; 94002; 94003; 94660; 94799; 95816; 99284; A9585; J0282; J0283; J0613; J0692; J1160; J1644; J1650; J1953; J1956; J2185; J2250; J2251; J2470; J2543; J2704; J3010; J3475; J3480; J7120; P9047

== ENCOUNTER 2024-01-09 12:10 | Outpatient (BNV) | payer OTHER, SELFPAY | END 2024-01-22 10:15 | PROVIDERS: Admitting Provider Internal Medicine Critical Care Medicine; Emergency Provider Emergency Medicine; PCP Internal Medicine; Visit Provider Radiology Diagnostic Radiology | DX: R13.10 Dysphagia, unspecified (principal) | CPT/HCPCS: 74230 ==

== ENCOUNTER 2024-01-09 12:10 | Outpatient (BNV) | payer OTHER, SELFPAY | END 2024-01-11 11:00 | PROVIDERS: Admitting Provider Internal Medicine Critical Care Medicine; Emergency Provider Emergency Medicine; PCP Internal Medicine; Visit Provider Radiology Diagnostic Radiology | DX: R56.9 Unspecified convulsions (principal) | CPT/HCPCS: 62328 ==

== ENCOUNTER → 2024-01-09 12:10 | Outpatient (BNV) | payer OTHER, SELFPAY | PROVIDERS: Admitting Provider Internal Medicine Critical Care Medicine; Emergency Provider Emergency Medicine; PCP Internal Medicine; Visit Provider Urology | DX: R31.0 Gross hematuria (principal); Z93.59 Other cystostomy status | CPT/HCPCS: 99222 ==

== ENCOUNTER → 2024-01-09 12:10 | Outpatient (BNV) | payer OTHER, SELFPAY | PROVIDERS: Admitting Provider Internal Medicine Critical Care Medicine; Emergency Provider Emergency Medicine; PCP Internal Medicine; Visit Provider Psychiatry & Neurology Neurology | DX: G40.901 Epilepsy, unspecified, not intractable, with status epilepticus (principal) | CPT/HCPCS: 99222 ==

== ENCOUNTER → 2024-01-09 12:10 | Outpatient (BNV) | payer OTHER, SELFPAY | PROVIDERS: Admitting Provider Internal Medicine Critical Care Medicine; Emergency Provider Emergency Medicine; PCP Internal Medicine; Visit Provider Internal Medicine | DX: R56.9 Unspecified convulsions (principal); I48.91 Unspecified atrial fibrillation; R25.2 Cramp and spasm | CPT/HCPCS: 99222 ==

== ENCOUNTER → 2024-01-09 12:10 | Outpatient (BNV) | payer OTHER, SELFPAY | PROVIDERS: Admitting Provider Internal Medicine Critical Care Medicine; Emergency Provider Emergency Medicine; PCP Internal Medicine; Visit Provider Internal Medicine Critical Care Medicine | DX: G40.901 Epilepsy, unspecified, not intractable, with status epilepticus (principal); N10 Acute pyelonephritis | CPT/HCPCS: 99222; 99291 ==

== ENCOUNTER → 2024-01-09 12:10 | Outpatient (BNV) | payer OTHER, SELFPAY | PROVIDERS: Admitting Provider Internal Medicine Critical Care Medicine; Emergency Provider Emergency Medicine; PCP Internal Medicine; Visit Provider Internal Medicine | DX: I48.91 Unspecified atrial fibrillation (principal); G40.901 Epilepsy, unspecified, not intractable, with status epilepticus | CPT/HCPCS: 99231; 99232; 99239; 99499; G0180 ==

== ENCOUNTER → 2024-01-09 12:10 | Outpatient (BNV) | payer OTHER, SELFPAY | PROVIDERS: Admitting Provider Internal Medicine Critical Care Medicine; Emergency Provider Emergency Medicine; PCP Internal Medicine; Visit Provider Internal Medicine Cardiovascular Disease | DX: I48.0 Paroxysmal atrial fibrillation (principal) | CPT/HCPCS: 99223 ==

== ENCOUNTER → 2024-01-09 12:10 | Outpatient (BNV) | payer OTHER, SELFPAY | PROVIDERS: Admitting Provider Internal Medicine Critical Care Medicine; Emergency Provider Emergency Medicine; PCP Internal Medicine; Visit Provider Internal Medicine Pulmonary Disease | DX: I48.91 Unspecified atrial fibrillation (principal); R56.9 Unspecified convulsions; G82.20 Paraplegia, unspecified; R25.2 Cramp and spasm | CPT/HCPCS: 99232; 99233; 99291 ==

== ENCOUNTER 2024-03-18 14:27 | Outpatient (AMB) | payer OTHER, SELFPAY ==
[2024-03-18 14:30] VITALS: BP 88/48; PULSE 59; BMI 24.5
--- NOTE | 2024-03-18 14:30 | MHC.OFFVIS ---
Vital Signs 03/18/24 14:30 Height 6 ft Weight 181 lb BMI 24.5 BP 88/48 L Blood Pressure Location Lt brachial Position Sitting Pulse 59 Pulse Source Monitor Intake Visit Reasons: [facility] [place]/01-[place]/Seizure(NS) Clerk Analyst Required: No Senior Brand Manager: Senior Brand Manager Present Allergies No Known Allergies [No Known Allergies*] Allergy (Verified 03/18/24 14:33) Medication List - Last Reconciled 03/18/24 by VISHNU Mohamud acetaminophen 650 mg PO Q6H PRN aluminum-magnesium hydroxide 200-200 mg/5 mL 5 mL PO Q4H PRN amiodarone 200 mg PO DAILY ascorbic acid (vitamin C) 250 mg PO BID baclofen 5 mg (1/2 x 10 mg) PO TID PRN clobetasol 0.05% 1 appl topical BID collagenase clostridium histo. (Santyl) 1 appl See Protocol topical DAILY CPAP (CPAP Machine/Device) As directed docusate sodium 100 mg PO BID PRN escitalopram oxalate 10 mg PO DAILY ferrous sulfate 324 mg PO DAILY levetiracetam 1,000 mg (10 mL) PO BID 90 days methenamine hippurate 1 g PO BID midodrine 2.5 mg PO TID 60 days multivitamin 1 tab PO DAILY nystatin 1 appl topical TID oxybutynin chloride ER 5 mg PO BEDTIME pantoprazole 40 mg PO BID psyllium husk 2 grams PO Q6H PRN simethicone 80 mg PO TID vancomycin 125 mg PO QID vancomycin 125 mg PO .MWF HPI HPI [facility] Inpatient/01-08/Seizure(NS): Details: Eran is a 73-year-old male with past medical history of cervical spinal cord injury, quadriplegia, sleep apnea with CPAP use, hypertension, paroxysmal atrial fibrillation who was admitted to [facility] November 2023 with hematuria. During that admission he was found to have sinus bradycardia with rates into the 40s. He was kept off all rate slowing medications. He was readmitted to [facility] 01/2024 with seizure activity, status epilepticus requiring intubation. During that admission he again had issues with hematuria and had AFib RVR that eventually required start of amiodarone. Today he reports that he did start Eliquis and again had hematuria. He is now off Eliquis and his urine is clear. He says he has had issues with kidney stones and currently is doing well with no planned procedures, no ureteral stents in place. He has a suprapubic catheter that is changed routinely. No reports of chest discomfort, shortness of breath, heart palpitations. He says he did not feel the atrial fibrillation when he was in the hospital. He normally uses CPAP at night but tells me that his machine needs repair. This is being taken care of. He has assistance with all levels of care. His nurse was on the phone and able to communicate with us during the visit. His personal financial planner and are present as well. Patient in an electric wheelchair. [facility] Medical History Spasticity Bladder spasm Neurogenic bladder Chronic hypercapnic respiratory failure Restrictive lung mechanics due to neuromuscular disease Paraplegia LATANYA on CPAP CAD (coronary artery disease) Paroxysmal atrial fibrillation HTN (hypertension) Surgical History Chronic suprapubic catheter History of carpal tunnel release Hx of colonoscopy Hx of rotator cuff surgery History of hip surgery Family History Father Diabetes HTN (hypertension) CVD (cardiovascular disease) Mother CVD (cardiovascular disease) Diabetes HTN (hypertension) Brother CVD (cardiovascular disease) Diabetes HTN (hypertension) Social History Household Members: Spouse Housing: House Do you presently have visiting nurse or other home services: Yes (visiting nurses, cnas daily) Alcohol intake: former 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 Patient Tobacco Use Status: Former Tobacco user Tobacco use type: Cigarette Years Smoked: 20 years Advance Directives Date on File: 06/08/23 service: No Review of Systems Const Details: in electric wheelchair All systems reviewed & are unremarkable except as noted in HPI and below ENT Denies dizziness Card Denies chest pain, Denies chest pain at rest, Denies chest pain with activity, Denies rapid heart rate, Reports pedal edema, Reports edema, Denies leg edema, Denies lightheadedness, Denies palpitations, Denies dyspnea, Denies dyspnea on exertion and Denies orthopnea Resp Denies cough, Denies dyspnea and Denies dyspnea on exertion GI Denies hematochezia and Denies change in stool character Musc Details: paraplegia, s/p spinal cord injury Reports limited range of motion Neuro Denies dizziness Endo Denies palpitations Physical Exam Vital Signs: Last Vital Signs Pulse 59 03/18/24 14:30 BP 88/48 L 03/18/24 14:30 BMI result Body Mass Index 24.5 Const General: cooperative, comfortable and no acute distress Orientation/consciousness: patient oriented x3 HEENT Head: Yes normal to inspection Resp Effort & Inspection: normal respiratory effort Auscultation: clear to auscultation bilaterally, no rales, no rhonchi and no wheezes Cardio Rate: regular rate Rhythm: regular rhythm Heart sounds: S1 normal heart sound present, S2 normal heart sound present, no murmurs and no rubs Neuro General: patient oriented x3 Extrem General: No no pedal edema and No calf tenderness Psych Appearance: grossly normal Mental Status: mental status grossly normal Office Procedures EKG Details: Today, read by me, sinus bradycardia, rate 59, QTC 465 milliseconds [id number], Complete Assessment & Plan Assessment & Plan (1) Atrial fibrillation with RVR: Code(s): I48.91 - Unspecified atrial fibrillation Category: Medical Plan: History of paroxysmal atrial fibrillation that had been suppressed without any rate slowing agents. He did have AFib RVR during 01/2024 [facility] admission for status epilepticus. He was started on amiodarone load at that time. He currently is still taking amiodarone 200 mg b.i.d.. He has not had any known recurrent AFib since then. EKG today is showing sinus bradycardia, rate 59, QTC 465 milliseconds. He has been on and off Eliquis for anticoagulation. He reports recurrent issues with hematuria whenever Eliquis is taken. He has been hospitalized and had ER evaluation for this problem. Spent time reviewing the need for anticoagulation in the stroke risk that atrial fibrillation carries. He does not want to restart Eliquis at this time. He has not had hospitalization in the last month and wants to keep it that way. Informed him that while off Eliquis he does carry an increased risk of stroke and he states understanding. Spent time reviewing Watchman device and gave pamphlets to patient's regarding this procedure. Informed him that with a Watchman he will need to take anticoagulation for a short period of time however long-term anticoagulation will not be indicated. At this time he does not want to agree to any procedures. He will think about it and let us know. Will plan to reach out to his urologist and discuss this plan. At this time will reduce his amiodarone down to 200 mg daily. Will have him check labs today including BMP, liver profile, CBC and TSH. Will arrange for cardiology follow-up in 3 months, sooner if needed. Goal at that visit would be to rediscuss anticoagulation/Watchman if not already completed. (2) Gross hematuria: Code(s): R31.0 - Gross hematuria Category: Medical Plan: As above - currently urine is clear (3) HTN (hypertension): Code(s): I10 - Essential (primary) hypertension Category: Medical Plan: Notes indicate a history of hypertension however he tells me his blood pressure runs low. He does have midodrine as part of his usual medication regime. His blood pressure is on the low side today, asymptomatic. No med changes made (4) Paraplegia: Code(s): G82.20 - Paraplegia, unspecified Category: Medical Plan: Status post C-spine injury (5) LATANYA on CPAP: Code(s): G47.33 - Obstructive sleep apnea (adult) (pediatric); Z99.89 - Dependence on other enabling machines and devices Category: Medical Plan: Patient currently reports there is a problem with his CPAP machine. He is working on having it fixed. (6) Hospital discharge follow-up: Code(s): Z09 - Encounter for follow-up examination after completed treatment for conditions other than malignant neoplasm Category: Medical Plan: As above Plan Time spent on chart review, documentation, interview and assessment Orders: Orders Liver Panel Today I48.91 - Unspecified atrial fibrillation TSH reflex Free T4 Today I48.91 - Unspecified atrial fibrillation Complete Blood Count no Diff Today R31.0 - Gross hematuria Basic Metabolic Panel Today E87.0 - Hyperosmolality and hypernatremia Medications: New amiodarone 200 mg PO DAILY 90 tabs 1RF amiodarone 200 mg PO DAILY 90 tabs 1RF Discontinued amiodarone Discontinued Reason: Doctor's Order 200 mg PO BID 90 days 180 tabs 0RF Coding Level of Care Code Est Pt Level 4 (80066) Complex EM visit Add On G2211 Diagnoses Atrial fibrillation with RVR I48.91 Gross hematuria R31.0 HTN (hypertension) I10 Paraplegia G82.20 LATANYA on CPAP G47.33; Z99.89 Hospital discharge follow-up Z09 CPT Codes EKG - CPT: 60075-[id number], Complete ([id number]) Time Spent (min) 40
== END 2024-03-18 15:22 | disposition home or self-care (01) ==
PROVIDERS: PCP Internal Medicine; Visit Provider Nurse Practitioner Family
DX: I48.91 Unspecified atrial fibrillation (principal); R31.0 Gross hematuria; I10 Essential (primary) hypertension; G82.20 Paraplegia, unspecified; G47.33 Obstructive sleep apnea (adult) (pediatric); Z99.89 Dependence on other enabling machines and devices; Z09 Encounter for follow-up examination after completed treatment for conditions other than malignant neoplasm
CPT/HCPCS: 93010; 99214; G2211

== ENCOUNTER 2024-03-18 14:27 | Outpatient (REF) | payer OTHER, SELFPAY ==
[2024-03-18 16:56] LABS: Alanine Aminotransferase 8 U/L (0-40); Albumin Level 3.1 g/dL (3.5-5.0); Alkaline Phosphatase 63 U/L (39-117); Aspartate Amino Transferase 15 U/L (5-37); Bilirubin Direct < 0.2 mg/dL (0.0-0.5); Bilirubin Total 0.2 mg/dL (0.0-1.0); TSH reflex Free T4 2.25 uIU/mL (0.32-4.0); Total Protein 7.2 g/dL (6.5-8.0)
[2024-03-18 17:01] LABS: VBG pCO2 35 mmHg; VBG pH 7.53 (7.32-7.43); VBG pO2 100 mmHg
[2024-03-18 17:02] LABS: VBG Base Excess 7.6 mmol/L; VBG HCO3 30 mmol/L (22-26)
[2024-03-18 17:10] LABS: Venous Blood Gas Refer to POC result
== END 2024-03-18 14:28 | disposition home or self-care (01) ==
LOC: HO.LAB 14:27
PROVIDERS: Hospitalist; PCP Internal Medicine; Visit Provider Nurse Practitioner Family
DX: I48.91 Unspecified atrial fibrillation (principal); J98.4 Other disorders of lung; G70.9 Myoneural disorder, unspecified; J96.12 Chronic respiratory failure with hypercapnia; R31.0 Gross hematuria; I10 Essential (primary) hypertension; G82.20 Paraplegia, unspecified; G47.33 Obstructive sleep apnea (adult) (pediatric); Z99.89 Dependence on other enabling machines and devices
CPT/HCPCS: 36415; 80076; 82803; 84443; 93005; 99212

== ENCOUNTER 2024-03-19 14:20 | Outpatient (AMB) | payer OTHER, SELFPAY ==
--- NOTE | 2024-03-19 14:27 | MHC.OFFVIS ---
Vital Signs 03/19/24 14:30 BP 102/56 L Blood Pressure Location Lt brachial Position Sitting Pulse 64 Pulse Oximetry (%) 96 Oxygen Delivery Method Room Air Intake Visit Reasons: latanya Manager Metrology Required: No Medicine Teacher: Medicine Teacher offered & declined Allergies No Known Allergies [No Known Allergies*] Allergy (Verified 03/19/24 14:28) Medication List - Last Reconciled 03/19/24 by Antonietta Rios LPN acetaminophen 650 mg PO Q6H PRN aluminum-magnesium hydroxide 200-200 mg/5 mL 5 mL PO Q4H PRN amiodarone 100 mg PO DAILY ascorbic acid (vitamin C) 250 mg PO BID baclofen 5 mg (1/2 x 10 mg) PO TID PRN clobetasol 0.05% 1 appl topical BID collagenase clostridium histo. (Santyl) 1 appl See Protocol topical DAILY CPAP (CPAP Machine/Device) As directed docusate sodium 100 mg PO BID PRN escitalopram oxalate 10 mg PO DAILY ferrous sulfate 324 mg PO DAILY levetiracetam 1,000 mg (10 mL) PO BID 90 days methenamine hippurate 1 g PO BID midodrine 2.5 mg PO TID 60 days multivitamin 1 tab PO DAILY nystatin 1 appl topical TID oxybutynin chloride ER 5 mg PO BEDTIME pantoprazole 40 mg PO BID psyllium husk 2 grams PO Q6H PRN simethicone 80 mg PO TID vancomycin 125 mg PO QID vancomycin 125 mg PO .[facility] HPI Comments Details: The patient is a 73-year-old gentleman who had an unfortunate accident while working back in August 2020 resulting in a cervical spinal cord injury. He was admitted to [facility]. Underwent number surgery for decompression of the C3/C4 spinal cord area. The patient was monitored in the intensive care but he did not require a tracheostomy. The patient has minimal movement to the upper extremities. Ultimately the patient was transferred to [facility] in [place]. There he had issues with urosepsis and was briefly admitted at [facility]. Subsequently the patient was then transferred over to an acute rehab at [facility]. While he was there he was noted to be hypoxic at nighttime. He did undergo a sleep study which was personally by me is also in the records which demonstrates that he had AHI up to 50 events an hour. Most of the events were either obstructive or hypopneas. No evidence of any significant central sleep apnea. He did desaturate down to the 70s. The patient was then placed on PAP therapy with good response. He has been tolerating the therapy. The patient ultimately after prolonged hospitalization and rehab was transferred home and now he is going to the transition of getting his care situated in the [place]. while the patient was at [facility] he was able to get a CPAP with a [place] DME. However, now that he is in [place] he cannot continue with this DME for his mattress spring encaser. The patient needs to establish with a local DME company for supplies. In addition to that the patient does have issues with a weak cough due to the high spinal cord injury. He denies any chest congestion at this time. He is currently not using any oxygen at nighttime. He does get around with the use of a power wheelchair. 10/15/2021 the patient is here for pulmonary follow-up visit. Overall he is doing well. He is working with his teen to keep him home in safe. He has been tolerating the CPAP. The CPAP therapy continues to be affecting beneficial. He is using a nasal pillow mask. He is very reluctant to use a fullface mask because of some difficulties that he has had in the past that were pretty dramatic and traumatic for him. he does complaint of a dry mouth. It is likely that he is opening his mouth while sleeping. I did provide him a chin strap that he can try along with the nasal pillows. His apnea scores are within normal limits. His cough is overall better. We did talk about the staff regarding doing manual chest PT or considering a percussion device. In addition to that I did request that they can check or point check his pulse ox while sleeping specially since he has 24 hour care to make sure that he does not require oxygen supplementation. There is still struggling to find him a DME company that will work under the worker's comp insurance. Once he is accepted into a DME company then we can continue getting supplies. 01/27/2022 the patient is here for a pulmonary follow-up visit. Overall he is doing well. He is tolerating his CPAP therapy. The CPAP therapy has been affecting beneficial. He is using nasal pillows. Although he does have issues with opening his mouth even with a chin strap and he does complain of a dry mouth. Therefore, we did talk about the importance of a fullface mask. He is willing to try 1. I did encourage him to try the F 30 medium mask. I will submit went to his [employer] company. Otherwise his AHI is very good below 2 events an hour. He feels sometimes the pressure is too high so therefore I did decrease some of the pressures from a maximum of 20 down to a maximum of 14. His average pressure that he needs to treat his sleep apnea is 12.5 cmH2O. The patient does have a cough. It is mild to moderate at times. He does expectorate. He needs to be performed CPT. We his spoken before about a percussion valve. I will submit 1 again to his [employer] company. If his symptoms worsen if he gets more congested then we can consider a percussion wrap that will be more effective for him. Otherwise the patient is without any other complaints. 09/13/2022 The patient is here for a pulmonary follow up visit. Overall he is doing well. He is tolerating his CPAP therapy. The CPAP therapy has been affecting beneficial. He is using nasal mask. He could not tolerate the full face mask. Although he does have issues with opening his mouth. He needs to start isung the chin strap. Also, he was taken to the ED with encephalopathy. ABH with chronic hypercarbic respiratory failure. Not medication related per the pt. May have been related to a UTI. He was also referred to [facility] and had a holter monitor. No further episodes of confusion noted. 07/03/2023 the patient is here for a pulmonary follow-up visit. The patient overall has been doing well. Although, he has been having hard time with his fullface mask. He was doing better with the nasal pillows. He would like to go back on that type of mask. He is mouth breather and he was wearing a chinstrap in the past. Therefore will go ahead and attempt to get him back on the previous therapy. Otherwise patient is not tolerating CPAP. Will request a an urgent mask change from his [employer] company, reliable. Hopefully they can supply them mask soon so he can start his therapy soon as possible. In the meantime he is also complaining of chest congestion. He is able to expectorate usually yellowish phlegm. Typically is on a daily basis. Denies any fevers or chills or any worsening shortness of breath. Likely has a component of chronic bronchitis. We could try macrolide therapy Monday for about a month just to see if we can improve his secretions in addition to improve his promotility issues that may be also contributing to his underlying chronic bronchitis. If the patient finds the medication helpful and he would like to stand medication would have to get an EKG to make sure that I can can tolerated. Patient also she got a chest x-ray although be difficult for him to do so we can make arrangements for him to have 1 done. Therefore, the patient is not improving on the current therapy he should have an x-ry. The order is available already. The patient also would like to decrease the pressure on his CPAP. I did go down to the maximum pressure of 12. His average pressure is around 11 so therefore we do want bring a lower than that. At the same time I made the ramp maximum 45 minutes in order for him to be able to fall asleep with the mask and then let the pressures increased. His sleep hygiene is not very good however. Will continue to monitor his progress on the CPAP. Otherwise the other option would be to check a blood gas and make sure that his CO2 is within normal limits. Will discuss that further during the next visit or if his symptoms worsen. 11/03/2023 the patient is here for a pulmonary follow-up visit. Overall he is doing well he has tolerating the nasal pillows. No significant air leakage based on his download from the machine. He still tolerates it just for short bout and then he takes it off after an hour. Seems like once the ramp is completed 45 minutes then the PAP pressures increased and he develops a hard time tolerating it. We did download the CPAP is seems that his AHI is slightly below 5. He understands that if he decrease the pressures it may be that his AHI will increase. Although at this point we need to make sure he tolerates the machine better so therefore I will decrease the pressures at this time. If the patient still has a hard time tolerating he can always call. He is also complains of the air. We also adjusted the temperature slightly from 80-78 and he can always adjusted accordingly to his comfort. The humidity is set at auto. The patient also has been little bit more sleepy. It may be from the fact that he has been using the CPAP regularly. Although because of his history of restrictive lung disease will go ahead and request blood work including a blood gas. If his CO2 is elevated then we have to consider changing his machine to a BiPAP or a noninvasive ventilator. 03/19/2024 the patient is here for a pulmonary follow-up visit. Since we last spoke he has had a very eventful few months. The patient developed a seizures and subsequently required intubation for status epilepticus. During the time he also was found to have acute kidney failure. Hydronephrosis. The patient was noted to have a significant obstructing stone that had to remove. The patient also had issue atrial fibrillation. He was subsequently person Eliquis. Unfortunately has significant hematuria and could not tolerate the Eliquis. He has been off the Eliquis although he has high risk for strokes. 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 He was initially reluctant to do so now he is thinking more serious about it. As far as his CPAP he continues use it every night. CPAP therapy has been affecting beneficial beneficial. The patient has been trying to use it. Still complains about the cold air. I did teach him how to increase the temperature to try to warm up the air. He is going to try to do so. In the meantime he did have a blood gas done actually a few while he was in the hospital. Does not have any evidence of any hypercarbia so at this point he does not require a ventilator. Download in the CPAP his AHI is actually 0 and he only requires between 4-5 cm of pressure. Therefore he will continue with a fullface mask he is tolerating it fairly well. Will follow-up in the springtime. If he has any issues he will call for an earlier assessment. [facility] Medical History Spasticity Bladder spasm Neurogenic bladder Chronic hypercapnic respiratory failure Restrictive lung mechanics due to neuromuscular disease Paraplegia LATANYA on CPAP CAD (coronary artery disease) Paroxysmal atrial fibrillation HTN (hypertension) Surgical History Chronic suprapubic catheter History of carpal tunnel release Hx of colonoscopy Hx of rotator cuff surgery History of hip surgery Family History Father Diabetes HTN (hypertension) CVD (cardiovascular disease) Mother CVD (cardiovascular disease) Diabetes HTN (hypertension) Brother CVD (cardiovascular disease) Diabetes HTN (hypertension) Social History Household Members: Spouse Housing: House Do you presently have visiting nurse or other home services: Yes (visiting nurses, cnas daily) Alcohol intake: former Comment: private MARKETING INFORMATION COORDINATOR in room Patient Tobacco Use Status: Former Tobacco user Tobacco use type: Cigarette Years Smoked: 20 years Advance Directives Date on File: 06/08/23 service: No Review of Systems Const Reports daytime sleepiness, Denies difficulty sleeping, Denies fever(s) and Denies snoring Eyes Denies change in vision ENT Denies change in voice and Reports dry mouth Card Denies chest pain Resp Denies change in phlegm color, Denies chest congestion, Reports cough, Denies excessive phlegm production and Denies snoring GI Reports no additional complaints Reports as per HPI Musc Reports as per HPI Skin/Breast Denies rash Neuro Reports as per HPI Physical Exam Vital Signs: Last Vital Signs Pulse 64 03/19/24 14:30 BP 102/56 L 03/19/24 14:30 Pulse Ox 96 03/19/24 14:30 Oxygen Delivery Method Room Air 03/19/24 14:30 Const General: alert Limitations: physical limitations (quadriplegia) Neck Neck: Yes normal visual inspection, Yes full ROM and Yes no lymphadenopathy Chest Chest palpation & inspection: normal inspection of the chest Resp Auscultation: diminished lung sounds Cardio Rate: regular rate Rhythm: regular rhythm Heart sounds: S1 normal heart sound present and S2 normal heart sound present GI Palpation (GI): Soft to palpation and nontender Auscultation: normal bowel sounds Skin General skin exam: rashes and/or lesions noted Assessment & Plan Assessment & Plan (1) LATANYA on CPAP: Code(s): G47.33 - Obstructive sleep apnea (adult) (pediatric); Z99.89 - Dependence on other enabling machines and devices Category: Medical (2) Paraplegia: Code(s): G82.20 - Paraplegia, unspecified Category: Medical (3) Restrictive lung mechanics due to neuromuscular disease: Code(s): J98.4 - Other disorders of lung; G70.9 - Myoneural disorder, unspecified Category: Medical (4) Chronic hypercapnic respiratory failure: Code(s): J96.12 - Chronic respiratory failure with hypercapnia Category: Medical Plan continue APAP therapy, adjusted pressure 6-12->4>8 FM, will increase temperature for comfort consider using APAP during his afternoon nap CPT with acapella valve. Consider percussion wrap if worsens F/U 4-6months Coding Level of Care Code Est Pt Level 4 (21994) Diagnoses LATANYA on CPAP G47.33; Z99.89 Paraplegia G82.20 Restrictive lung mechanics due to neuromuscular disease J98.4; G70.9 Chronic hypercapnic respiratory failure J96.12 Time Spent (min) 17
[2024-03-19 14:30] VITALS: BP 102/56; PULSE 64; O2SAT 96
== END 2024-03-19 14:58 | disposition home or self-care (01) ==
PROVIDERS: PCP Internal Medicine; Visit Provider Hospitalist
DX: G47.33 Obstructive sleep apnea (adult) (pediatric) (principal); Z99.89 Dependence on other enabling machines and devices; G82.20 Paraplegia, unspecified; J98.4 Other disorders of lung; G70.9 Myoneural disorder, unspecified; J96.12 Chronic respiratory failure with hypercapnia
CPT/HCPCS: 99214

== ENCOUNTER → 2024-03-19 14:20 | Outpatient (BNVA) | payer OTHER, SELFPAY | PROVIDERS: PCP Internal Medicine; Visit Provider Hospitalist | DX: G47.33 Obstructive sleep apnea (adult) (pediatric) (principal); J98.4 Other disorders of lung; G70.9 Myoneural disorder, unspecified; J96.12 Chronic respiratory failure with hypercapnia; G82.20 Paraplegia, unspecified; Z99.89 Dependence on other enabling machines and devices | CPT/HCPCS: 99212 ==

== ENCOUNTER 2024-07-15 16:07 | Outpatient (REF) | payer OTHER, SELFPAY ==
[2024-07-15 17:42] LABS: MANUAL DIFF FLAG NO
--- OUTSIDE RECORDS SUMMARY | 2024-07-15 18:01 | XMS_ITS | Continuity of Care Document ---
Author Organization [facility] Address [address] [facility] [address] [place] [address]- Care Team Providers Care Scraper Burrer Name Role Phone Aba Linares DO Primary Care Physician [phone] Encounter [facility] [place] Date(s): 06/05/24 - 07/05/24 [facility] [address] [place] [id number]- Encounter Type: Triage Allergies, Adverse Reactions, Alerts No Known Allergies Immunizations Given and Recorded Vaccine Date Status Refusal Reason influenza virus vaccine, inactivated 02/24/24 Rohit rded influenza virus vaccine, inactivated 02/03/23 Rohit rded influenza virus vaccine, inactivated 03/10/22 Rohit rded influenza virus vaccine, inactivated 01/20/21 Rohit rded influenza virus vaccine, inactivated 01/25/20 Rohit rded influenza virus vaccine, inactivated 02/25/18 Rohit rded influenza virus vaccine, inactivated 06/03/17 Rohit rded influenza virus vaccine, inactivated 04/17/16 Rohit rded SARS-CoV-2(COVID-19)mRNA-LNP vac([id number]) 02/24/24 Recorded SARS-CoV-2(COVID-19)mRNA-LNP vac([id number]) 04/15/23 Recorded RSV vaccine preF3, recombinant 04/15/23 Recorded [id number] bivalent booster vax 11/3/22 Recorded zoster vaccine, inactivated 01/13/22 Recorded zoster vaccine, inactivated 02/25/18 Recorded SARS-CoV-2 (COVID-19) mRNA-1273 vaccine 08/01/20 R ecorded SARS-CoV-2 (COVID-19) mRNA-1273 vaccine 07/04/20 R ecorded pneumococcal 23-valent vaccine 12/22/11 Recorded tetanus-diphtheria toxoids (Td) 04/21/03 Recorded Medications amiodarone 200 mg oral tablet 100 mg, 0.5, tablet, By Mouth, 2 times a day, # 30 tablet, Refills 0, Tot. Refills 0, Maintenance, 04/09/24 11:37:00 AM EST, Route to Pharmacy Electronically, [facility], Partial fill upon patient request if the prescription is for a schedule II opioid drug., 173, cm, 04/09/24 3:53:[address], Height, 98, kg, 03/26/24 12:19:00 EST, Dry Weight Start Date: 04/09/24 Stop Date: 05/09/24 Status: Ordered Quantity: 30.0 Unit: tablet Repeat number: 1 ascorbic acid 500 mg oral tablet 1 tablet = 500 mg, By Mouth, 2 times a day, # 30 tablet, 0 Refills, Maintenance, 03/26/24 2:22:00 PM EST, Tablet, Partial fill upon patient request if the prescription is for a schedule II opioid drug. Start Date: 03/26/24 Status: Ordered Quantity: 30.0 Unit: tablet Repeat number: 1 baclofen 5 mg oral tablet 1 tablet = 5 mg, By Mouth, 3 times a day, # 90 tablet, 1 Refills, Maintenance, 07/01/24 2:04:00 PM EST, Tablet, [facility] [id number] ([facility]), Partial fill upon patient request if the prescription is for a schedule II opioid drug., 178, cm, 07/01/24 7:28:00 EST, Height, 88, kg, 06/18/24 22:32:00 EST, Dry Weight Start Date: 07/01/24 Status: Ordered Quantity: 90.0 Unit: tablet Repeat number: 2 baclofen 5 mg oral tablet 1 tablet = 5 mg, By Mouth, 3 times a day, PRN Spasm, # 90 tablet, 0 Refills, Maintenance, 07/01/24 2:04:00 PM EST, Tablet, Rodney [id number] ([employer] [facility] 827), Partial fill upon patient request if the prescription is for a schedule II opioid drug., 178, cm, 07/01/24 7:28:00 EST, Height, 88, kg, 06/18/24 22:32:00 EST, Dry Weight Start Date: 07/01/24 Status: Ordered Quantity: 90.0 Unit: tablet Repeat number: 1 bisacodyl 10 mg rectal suppository UNWRAP AND INSERT 1 SUPPOSITORY RECTALLY DAILY AFTER DINNER Start Date: 03/26/24 Status: Ordered Repeat number: 1 CBC w/ Diff, CMP, ESR and CRP CBC w/ Diff, CMP, ESR and CRP, See Instructions, # 1 each, Refills 0, Tot. Refills 0, Maintenance, Please obtain weekly while on antibiotics on Monday and fax results to [facility] ID [phone] and PCP, 04/08/24 2:27:00 PM EST, Supply Start Date: 04/08/24 Status: Ordered Quantity: 1.0 Unit: each Repeat number: 1 Dakins Quarter Strength 0.125% topical solution APPLY A DAKINS SOAKED GAUZE TO WOUND FOR 5 MINUTES EVERY OTHER DAY Start Date: 03/26/24 Status: Ordered Repeat number: 1 diazepam 2 mg oral tablet 2 mg, 1, tablet, By Mouth, 2 times a day, PRN, Refills 0, Maintenance, Pain , Mild, 06/05/24 9:50:00AM EST, Partial fill upon patient request if the prescription is for a schedule II opioid drug. Start Date: 06/05/24 Status: Ordered Repeat number: 1 docusate sodium 100 mg oral capsule 1 capsule = 100 mg, By Mouth, Daily at bedtime, 0 Refills, Maintenance, 03/26/24 2:22:00 PM EST, Partial fill upon patient request if the prescription is for a schedule II opioid drug. Start Date: 03/26/24 Status: Ordered Repeat number: 1 doughnut pillow doughnut pillow, See Instructions, # 1 each, Refills 0, Tot. Refills 0, Maintenance, Use while sitting down to prevent pressure in the sacral wound, 04/26/24 12:24:00 PM EST, Supply, 173, cm, 04/26/24 11:43:00 EST, Height, 98, kg, 03/26/24 12:19:00 EST, Dry Weight Start Date: 04/26/24 Status: Ordered Quantity: 1.0 Unit: each Repeat number: 1 ferrous sulfate 324 mg (65 mg elemental iron) oral delayed release tablet 1 tablet = 324 mg, By Mouth, Daily, # 1,000 tablet, 0 Refills, Maintenance, 06/05/24 9:50:00 AM EST,CR Tablet, Partial fill upon patient request if the prescription is for a schedule II opioid drug. Start Date: 06/05/24 Status: Ordered Quantity: 1000.0 Unit: tablet Repeat number: 1 Home health aid Home health aid, See Instructions, # 1 each, Refills 0, Tot. Refills 0, Maintenance, 28/11 home health aid and an overlap of 4 hours for the morning routine with nursing 1 per week for bowel and bladder oversight and medication management. Dx: Tetraplegia, 03/05/24 4:58:00 PM EDT, Supply Start Date: 03/05/24 Status: Ordered Quantity: 1.0 Unit: each Repeat number: 1 levETIRAcetam 100 mg/mL oral solution 5 mL = 500 mg, By Mouth, 2 times a day, # 300 mL, 0 Refills, Maintenance, 03/26/24 2:23:00 PM EST, Solution, Partial fill upon patient request if the prescription is for a schedule II opioid drug. Start Date: 03/26/24 Status: Ordered Quantity: 300.0 Unit: mL Repeat number: 1 melatonin 10 mg oral tablet 1 tablet = 10 mg, By Mouth, Daily at bedtime, # 200 tablet, 0 Refills, Maintenance, 06/05/24 9:51:00AM EST, Tablet, Partial fill upon patient request if the prescription is for a schedule II opioid drug. Start Date: 06/05/24 Status: Ordered Quantity: 200.0 Unit: tablet Repeat number: 1 MELATONIN TR 10 MG Tablet Extended Release MELATONIN TR 10 MG Tablet Extended Release, TAKE ONE TABLET BY MOUTH AT BEDTIME Start Date: 03/26/24 Status: Ordered Repeat number: 1 methenamine hippurate 1 gm oral tablet TAKE ONE TABLET BY MOUTH TWICE A DAY WITH VITAMIN C Start Date: 03/26/24 Status: Ordered Repeat number: 1 midodrine 5 mg oral tablet See Instructions, PRN, 2 tablet PRN sys BP <90, Refills 0, Maintenance, Blood Pressure, 09/09/20 7:49:00 AM EDT, Instructions Replace Required Details Start Date: 09/09/20 Status: Ordered Repeat number: 1 Multivitamin With Minerals 1 tablet, By Mouth, Daily, Maintenance, 09/23/20 12:29:00 PM EDT Start Date: 09/23/20 Status: Ordered Repeat number: 1 Nursing: Increase baclofen to 15 mg 3/xday Nursing: Increase baclofen to 15 mg 3/xday, See Instructions, # 1 kit, Refills 0, Tot. Refills 0, Maintenance, Dx: Spasticity, 06/11/24 10:53:00 AM EST, Supply Start Date: 06/11/24 Status: Ordered Quantity: 1.0 Unit: kit Repeat number: 1 nystatin topical [id number] u/gm powder APPLY TOPICALLY TO THE AFFECTED AREA TWICE A DAY Start Date: 03/26/24 Status: Ordered Repeat number: 1 pantoprazole 40 mg oral delayed release tablet 1 tablet = 40 mg, By Mouth, 2 times a day, # 120 tablet, 0 Refills, Maintenance, 06/05/24 9:51:00 AMEST, CR Tablet Start Date: 06/05/24 Status: Ordered Quantity: 120.0 Unit: tablet Repeat number: 1 Please provide 28/11 CAR RENTAL MANAGER care and weekly VNA visits for medication management. Please provide 28/11 CAR RENTAL MANAGER care and weekly VNA visits for medication management., See Instructions, # 1 each, Refills 0, Tot. Refills 0, Maintenance, Dx: Tetraplegia, 12/06/21 10:20:00 AM EDT, Supply Start Date: 12/06/21 Status: Ordered Quantity: 1.0 Unit: each Repeat number: 1 Senna-Time 8.6 mg oral tablet TAKE ONE TABLET BY MOUTH TWICE A DAY NEEDED Start Date: 03/26/24 Status: Ordered Repeat number: 1 Sodium Chloride 1000 mg oral tablet = 1 Gm, By Mouth, 3 times a day, # 90 tablet, 0 Refills, Maintenance, 07/01/24 2:03:00 PM EST, Tablet, [id number] ([facility] 827), Partial fill upon patient request if the prescription is for a schedule II opioid drug., 178, cm, 07/01/24 7:28:00 EST, Height, 88, kg, 06/18/24 22:32:00 EST, Dry Weight Start Date: 07/01/24 Stop Date: 07/31/24 Status: Ordered Quantity: 90.0 Unit: tablet Repeat number: 1 Tylenol 325 mg oral tablet 650 mg, 2, tablet, By Mouth, Every 6 hours, PRN, Refills 0, Maintenance, as needed for mild pain orfever, 09/09/20 7:49:00 AM EDT Start Date: 09/09/20 Status: Ordered Repeat number: 1 Wet to Dry Dressing Changes Daily Wet to Dry Dressing Changes Daily, See Instructions, # 1 each, Refills 0, Tot. Refills 0, Maintenance, Lightly moisten Kerlix in normal saline and apply to wound packing daily for managment of sacraldecubitius ulcer (L89.159) Cover wound with Mepilex, 04/09/24 2:01:00 PM EST, Supply Start Date: 04/09/24 Status: Ordered Quantity: 1.0 Unit: each Repeat number: 1 Problem List Condition Confirmation Course Effective Dates Status Health St atus Informant Anemia 1 Confirmed Active Weakness Confirmed Active Atrial fibrillation Confirmed Active Hematuria Confirmed Active Elevated troponin Confirmed Active Spinal cord injury, cervical region Confirmed Active COPD (chronic obstructive pulmonary disease) Confirmed Active Constipation Confirmed Active CAD in [place] artery Confirmed Active Presence of intrathecal baclofen pump Confirmed Active Lower extremity edema Confirmed Active GERD (gastroesophageal reflux disease) Confirmed Active Neurogenic bladder Confirmed Active Seizure-like activity Confirmed Active Sacral decubitus ulcer, stage IV Confirmed Active Suprapubic catheter Confirmed Active Quadriplegia Confirmed Active 1Hemoglobin 06/29/23-10 Social History Social History Type Response Smoking Status Former smoker, quit more than 30 days ago; Type: Cigarettes; Other: quit smoking 2020; entered on: 12/12/23 Sex Sex Representation Male (finding) Patient Care team information Care Team Personnel Name: Danny Whittaker RN Position: [facility] ED RN W/OE and Tasks Member Role: Primary Care Nurse Name: Drea Rodriguez RN Position: S RN Member Role: Primary Care Nurse Name: Aba Linares DO Position: Reference Physician Member Role: PCP Address: [address] [place] [address] Internal Medicine [address] Telecom: Name: Renata Cantu RN Position: [facility] RN Supv Member Role: Primary Care Nurse Name: Magaly Allan RN Position: [facility] RN Member Role: Primary Care Nurse Name: Tesha Kirkpatrick RN Position: [facility] RN Member Role: Primary Care Nurse Name: Karoline Rader RN Position: [facility] RN Member Role: Primary Care Nurse Name: Clay Dunham RN Position: [facility] RN Member Role: Primary Care Nurse Name: Clay Najera RN Position: [facility] RN Member Role: Primary Care Nurse Name: Elsi Paulino RN Position: [facility] RN Member Role: Primary Care Nurse Name: Adriel Mahmood RN Position: [facility] RN Member Role: Primary Care Nurse Name: Vera Patricia RN Position: [facility] RN Member Role: Primary Care Nurse Name: Troy Ni RN Position: [facility] RN Member Role: Primary Care Nurse Name: [place] RN Position: [facility] RN Member Role: Primary Care Nurse Name: Ramya Bella NP Position: [facility] Associate Professional Member Role: Lifetime Consulting Provider Address: [address] [facility] [address] Telecom: Name: Gaby Byrd RN Position: [facility] RN Member Role: Primary Care Nurse Name: Brittnee Inman RN Position: [facility] RN Member Role: Primary Care Nurse Name: Hung Tamez DO Position: [facility] Renal MD Member Role: Lifetime Consulting Physician Address: [address] [facility] [address] Telecom: Name: Cecilia Thompson RN Position: [facility] RN Member Role: Primary Care Nurse Name: Brittany Loredo RN Position: [facility] RN Member Role: Primary Care Nurse Name: Cate Pantoja Position: [facility] RN Member Role: Primary Care Nurse Name: Genevieve Orozco RN Position: [facility] RN Member Role: Primary Care Nurse Name: Trudy Prakash RN Position: [facility] RN Member Role: Primary Care Nurse Name: Nicole Upton RN Position: [facility] RN Member Role: Primary Care Nurse Name: Lance Vegas RN Position: [facility] RN Member Role: Primary Care Nurse Name: Zi Soler RN Position: [facility] RN Member Role: Primary Care Nurse Name: Kenya Corrigan RN Position: [facility] RN Member Role: Primary Care Nurse Name: Eriberto Ruffin RN Position: [facility] RN Member Role: Primary Care Nurse Name: Madai Joy RN Position: [facility] RN Member Role: Primary Care Nurse Name: Urban Perrin LPN Position: [facility] RN Member Role: Primary Care Nurse Name: Sonja Cage RN Position: [facility] RN Member Role: Primary Care Nurse Name: Alec Chahal RN Position: [facility] RN Member Role: Primary Care Nurse Name: Dawson Zavala RN Position: [facility] RN Member Role: Primary Care Nurse Name: Анна Brock RN Position: [facility] RN Anjumv Member Role: Primary Care Nurse Care Team Related Persons Name: LACY TORREZINE Name: LOC BAKER Insurance Providers Guarantor name: ADRIAN TORREZ Health Plan Information #: 1 Payer: WORK COMP NON EM Member Number: NA Policy Number: NA Group Number: NA Health Plan Information #: 2 Payer: MEDICARE A INPT 25 Member Number: NA Policy Number: NA Group Number: NA Health Plan Information #: 3 Payer: HNE FF NON P HMO Member Number: NA Policy Number: NA Group Number: NA
--- OUTSIDE RECORDS SUMMARY | 2024-07-15 18:02 | XMS_ITS | Continuity of Care Document ---
Author Organization [facility] Address [address] [place] [address] [facility] Name Relationship Address Phone LORE, CIRO Personal Relationship Unknown Unavailable ZATES, FARNAZ Other Unknown Unavailable CHOQUETTE, CIRO spouse Unknown Unavaila ble CHOQUETTE, CIRO spouse Unknown Unavaila ble CHOQUETTE, CIRO Personal Relationship Unknown Unavailable KADI, PAULA Other Unknown Unavailable CHOQUETTE, CIRO spouse Unknown Unavaila ble Care Team Providers Care China Decorator Name Role Phone Milagros CHUNG Aba Gee Primary Care Physician Encounter [facility] Date(s): 05/31/24 - 06/30/24 [facility] [address] [place] [id number] Encounter Type: Triage Allergies, Adverse Reactions, Alerts [...] virus vaccine, inactivated 04/17/16 Rohit rded SARS-CoV-2(COVID-19)mRNA-LNP vac([id number]) 02/24/24 Recorded SARS-CoV-2(COVID-19)mRNA-LNP vac([id number]) 04/15/23 Recorded RSV vaccine preF3, recombinant 04/15/23 Recorded [id number] bivalent booster vax 03/10/22 Recorded zoster vaccine, inactivated 01/13/22 Recorded zoster [...] 11:37:00 AM EST, Route to Pharmacy Electronically, [facility], Partial fill upon patient request if [...] 30.0 Unit: tablet Repeat number: 1 baclofen 10 mg oral tablet 15 mg, 1.5, tablet, By Mouth, 3 times a day, # 135 tablet, Refills 2, Tot. Refills 2, Maintenance, 06/11/24 10:52:00 AM EST, Route to Pharmacy Electronically, [facility], Partial fill upon patient request if the prescription is for a schedule II opioid drug., 179, cm, 06/08/24 3:23:00 EST, Height, 82.1, kg, 06/05/24 18:12:00 EST, Dry Weight Start Date: 06/11/24 Stop Date: 09/09/24 Status: Ordered Quantity: 135.0 Unit: tablet Repeat number: 3 bisacodyl 10 mg rectal suppository UNWRAP AND INSERT 1 SUPPOSITORY RECTALLY DAILY AFTER DINNER Start Date: 03/26/24 Status: Ordered Repeat number: 1 CBC w/ Diff, CMP, ESR and CRP CBC w/ Diff, CMP, ESR and CRP, See Instructions, # 1 each, Refills 0, Tot. Refills 0, Maintenance, Please obtain weekly while on antibiotics on Monday and fax results to [facility] ID [phone] and PCP, 04/08/24 2:27:00 PM EST, Supply [...] Unit: kit Repeat number: 1 nystatin topical [id number] u/gm powder APPLY TOPICALLY TO THE AFFECTED AREA TWICE A DAY Start Date: 03/26/24 Status: Ordered Repeat number: 1 pantoprazole 40 mg oral delayed release tablet 1 tablet = 40 mg, By Mouth, 2 times a day, # 120 tablet, 0 Refills, Maintenance, 06/05/24 9:51:00 AMEST, CR Tablet Start Date: 06/05/24 Status: Ordered Quantity: 120.0 Unit: tablet Repeat number: 1 Please provide 28/11 MACHINE ERECTOR care and weekly VNA visits for medication management. Please provide 28/11 MACHINE ERECTOR care and weekly VNA visits for medication management., See Instructions, # 1 each, Refills 0, Tot. Refills 0, Maintenance, Dx: Tetraplegia, 12/06/21 10:20:00 AM EDT, Supply Start Date: 12/06/21 Status: Ordered Quantity: 1.0 Unit: each Repeat number: 1 Senna-Time 8.6 mg oral tablet TAKE ONE TABLET BY MOUTH TWICE A DAY NEEDED Start Date: 03/26/24 Status: Ordered Repeat number: 1 Tylenol 325 mg oral [...] Confirmed Active Constipation Confirmed Active CAD in [place] artery Confirmed Active Presence of intrathecal baclofen [...] Position: Reference Physician Member Role: PCP Address: [address] [place] [address] Internal Medicine [place], [place] [address] Telecom: Name: Renata Cantu RN Position: [facility] RN Supv Member Role: Primary Care Nurse Name: Magaly Allan RN Position: [facility] RN Member Role: Primary Care Nurse Name: eTsha Kirkpatrick RN Position: [facility] RN Member Role: Primary Care Nurse Name: Karoline Rader RN Position: [facility] RN Member Role: Primary Care Nurse Name: Clay Dunham RN Position: [facility] RN Member Role: Primary Care Nurse Name: Clay Najera RN Position: [facility] RN Member Role: Primary Care Nurse Name: Elsi Paulino RN Position: [facility] RN Member Role: Primary Care Nurse Name: Adriel Mahmood RN Position: [facility] RN Member Role: Primary Care Nurse Name: Vera Patricia RN Position: [facility] RN Member Role: Primary Care Nurse Name: Troy Ni RN Position: [facility] RN Member Role: Primary Care Nurse Name: [place] RN Position: [facility] RN Member Role: Primary Care Nurse Name: Ramya Bella NP Position: [facility] Associate Professional Member Role: Lifetime Consulting Provider Address: [address] [place], [place] [address] [place] [address]- Telecom: Name: Gaby Byrd RN Position: [facility] RN Member Role: Primary Care Nurse Name: Brittnee Inman RN Position: [facility] RN Member Role: Primary Care Nurse Name: Dashawn CHUNG Hung Alessandra Position: [facility] Renal MD Member Role: Lifetime Consulting Physician Address: [address] [place], [place] [address] [place], [place] [address] Telecom: Name: Cecilia Thompson RN Position: [facility] RN Member Role: Primary Care Nurse Name: Brittany Loredo RN Position: [facility] RN Member Role: Primary Care Nurse Name: Cate Pantoja Position: [facility] RN Member Role: Primary Care Nurse Name: Genevieve Orozco RN Position: [facility] RN Member Role: Primary Care Nurse Name: Trudy Prakash RN Position: [facility] RN Member Role: Primary Care Nurse Name: Nicole Upton RN Position: [facility] RN Member Role: Primary Care Nurse Name: Lance Vegas RN Position: [facility] RN Member Role: Primary Care Nurse Name: Zi Soler RN Position: [facility] RN Member Role: Primary Care Nurse Name: Kenya Corrigan RN Position: [facility] RN Member Role: Primary Care Nurse Name: Eriberto Ruffin RN Position: [facility] RN Member Role: Primary Care Nurse Name: Madai Joy RN Position: [facility] RN Member Role: Primary Care Nurse Name: Urban Perrin LPN Position: [facility] RN Member Role: Primary Care Nurse Name: Sonja Cage RN Position: [facility] RN Member Role: Primary Care Nurse Name: Alec Chahal RN Position: [facility] RN Member Role: Primary Care Nurse Name: Dawson Zavala RN Position: [facility] RN Member Role: Primary Care Nurse Name: Анна Brock RN Position: [facility] RN Suplaurie Member Role: Primary Care Nurse Care Team Related Persons Name: CIRO TORREZ Name: FARNAZ HANNAH Insurance Providers Guarantor name: ADRIAN TORREZ [facility] Plan Information #: 1 Payer: MEDICARE A INPT 25 Member Number: NA Policy Number: NA Group Number: NA
--- OUTSIDE RECORDS SUMMARY | 2024-07-15 18:02 | XMS_ITS | Continuity of Care Document ---
Author Organization [place] - [facility], [facility] Address [address] [place] [address] Assessment No assessment recorded. Plan of Treatment Reminders Order Date Submit Date Provider Last Modified By Organization Details Last Modified Time Details Appointments Hospital F/U 2024 03:00P M JASMYNE PIZANO Not available Not available Not available Lab CMP, serum or plasma 2024 025 [facility], [address] [place] [address], [place], [address], 07/15/2024 16:20:10 magnesium , serum or plasma 2024 025 [facility], [address] [place] [place] [address], [place], [address], 07/15/2024 16:20:10 CBC w/ auto diff 2024 025 [facility], [address] [place] [address], [place], [address], 07/15/2024 16:20:10 Referral gastroent erologist referral - 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 Surgeries None recorded. Imaging None recorded. Medication Orders None recorded. Patient TargetsNo targets recorded. Patient InstructionsNo instructions recorded. Reason for Referral Inside Outside Sales Representative Referral for Esophageal dysmotility ? 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, ?if it is affecting his esophagus, always has to sip water to swallow anything Referring Physician: Ashley Price, Internal Medicine, Encounter Date: 07/15/2024 Problems Name Problem SNOMED Code Status Onset Date Resolution Date Notes Provider Name and Address Organization Details Recorded Time Tobacco dependen ce syndrome 84451880 Completed 201704/02/2019 Aba Linares, DO [address] [place] [address], [address], [facility] 9 15:59:49 Alcohol abuse 33921229 Completed 201712/20/2017 Aba Linares DO [address] [place] [address], [address], [facility] 8 11:19:44 Polyp of colon 17490690 Active 2017 Not Available [facility] 3 10:33:08 History of hernia repair 67499541969 109 Active 2017 x2 Not Available [facility] 3 10:33:08 Atrial fibrilla tion 00342278 Active 2017 Not Available [facility] 3 10:33:08 Renal failure syndrome 49151726 Active 2017 Not Available [facility] 3 10:33:08 Osteoart hritis 853799721 Active 2017 Not Available [facility] 3 10:33:08 Glaucoma 71412730 Active 2017 Not Available [facility] 3 10:33:07 Gastroes ophageal reflux disease 431928341 Active 2017 Not Available [facility] 3 10:33:07 Hemorrho ids 77936508 Active 2017 Not Available [facility] 3 10:33:08 Coronary arterios clerosis 57441599 Active 2017 Not Available [facility] 3 10:33:08 Hyperten sive disorder 40553223 Active 2017 Not Available [facility] 3 10:33:07 Obesity 635498621 Active 2017 Not Available [facility] 3 10:33:08 Hyperlip idemia 52844707 Active 2017 Not Available [facility] 3 10:33:08 Abdomina l aortic aneurysm 317523544 Active 03/27 is 3.1cm Not Available [facility] 3 10:33:07 Neurogen ic urinary bladder 850866135 Active 2021 Not Available [facility] 3 10:33:08 Cholecys titis 65297715 Active 2021 Not Available [facility] 3 10:33:08 COVID-19 251433362 Active 2021 Not Available [facility] 3 10:33:08 Neuropat hy 975635363 Active 2021 Not Available [facility] 3 10:33:08 Hypotens ashley episode 94677080 Active 2021 Not Available [facility] 3 10:33:08 Constipa tion 43981258 Active 2021 Not Available [facility] 3 10:33:07 Candidia sis of skin 74283953 Active 2021 Not Available [facility] 3 10:33:08 Acute urinary tract infectio n 210327080 Active 2021 Not Available [facility] 3 10:33:08 Ingrowin g nail of toe of right foot 69586892599 411151 Active 2021 Not Available [facility] 3 10:33:07 Psoriasi s 4353284 Active 2021 Not Available [facility] 3 10:33:08 Cervical spinal cord injury 121494671 Active 2021 Not Available [facility] 3 10:33:08 Parapleg ia 67378813 Active 2022 Not Available [facility] 3 10:33:08 Anxiety 19100081 Active 2022 Not Available [facility] 3 10:33:08 Internal hemorrho ids 72403180 Active 2022 Not Available [facility] 3 10:33:08 Syncope 439230765 Active 2022 Not Available [facility] 3 10:33:07 Pain of left shoulder joint 04924759557 764331 Active 2022 Not Available [facility] 3 10:33:07 Pressure injury of buttock stage I 57292487531 364463 Active 2022 Not Available [facility] 3 10:33:07 Allergic conjunct ivitis 238533864 Active 2022 Not Available [facility] 3 10:33:08 Sepsis caused by Pseudomo og 339495458 Active 2022 Not Available [facility] 3 10:33:08 Urethral strictur e 29261306 Active 2022 Not Available [facility] 3 10:33:08 Skin lesion 46147742 Active 2023 JASMYNE PIZANO [address] [place], [address], [facility] 4 12:27:06 Cataract 558678953 Active 2023 Aba Linares DO [address] [place] [address], [address], [facility] 4 14:23:35 Allergic conjunct ivitis 483907673 Active 2023 JASMYNE PIZANO [address] [place], [address], [facility] 4 13:52:55 Recurren t urinary tract infectio n 527861110 Active 2023 Aba Linares DO [address] [place] [address], [address], [facility] 4 22:30:00 Hyponatr emia 39227570 Active 2023 JASMYNE PIZANO [address] [place], [address], [facility] 4 08:45:39 Iron deficien cy anemia 58202155 Active 2023 JASMYNE PIZANO [address] [place], [address], [facility] 4 08:45:49 Pressure injury of buttock stage IV 68407453733 077846 Active 2023 JASMYNE PIZANO [address] [place], [address], [facility] 4 15:32:31 Clostrid ium difficil e colitis 225395111 Active 2023 JASMYNE PIZANO [address] [place] [address], [address], [facility] 4 15:37:24 Sore throat 171825250 Active 2023 JASMYNE PIZANO [address] [place] [address], [address], [facility] 4 15:38:00 Infectio n by Era albicans 79530225 Active 2023 JASMYNE PIZANO [address] [place] [address], [address], [facility] 4 12:30:56 Depressi ve disorder 62884996 Active 2023 Aba Linares DO [address] [place], [address], [facility] 4 14:06:56 Memory impairme nt 520173971 Active 2023 JASMYNE PIZANO [address] [place] [address], [address], [facility] 4 15:41:42 Bilatera l shoulder joint pain 46573834927 171848 Active 2023 JASMYNE PIZANO [address] [place] [address] [place], [address], [facility] 4 15:48:53 Kidney stone 99870627 Active 2023 JASMYNE PIZANO [address] [place] [address], [address], [facility] 4 15:50:22 Osteomye litis of coccyx 677918004 Active 2023 Aba Linares DO [address] [place] [address], [address], [facility] 4 15:23:34 Anemia 609551447 Active 2024 Aba Linares DO [address] [place] [address], [address], [facility] 5 09:04:44 Esophage al dysmotil ity 371910266 Active 2024 JASMYNE PIZANO [address] [place] [address], [address], [facility] 5 15:57:39 Problem Notes None recorded. Procedures Surgical History Date Name Laterality Status Provider Name and Address Organization Details Recorded Time 022 WOUND CARE completed JASMYNE PIZANO [address] [place] [address], [address], [facility] 08/30/2021 14:12:41 022 Joint Injection completed JASMYNE PIZANO [address] [place] [address], [address], [facility] 07/23/2021 14:48:14 020 Corticosteroid Injection completed Aba Linares DO [address] [place] [address], [address], [facility] 01/03/2020 15:39:03 018 Corticosteroid Injection completed Aba Linares DO [address] [place] [address], [address], [facility] 12/04/2017 16:42:28 Imaging Results None recorded. Procedure Notes None recorded. Medical Equipment None Reported. Allergies Allergen ID Allergen Name Allergen Category Reaction Reaction Severity Criticality Documentation Date Start Date Code Code System Note Provider Name and Address Organization Details Recorded Time 8611 tramadol medicatio n hallucina tions Not available Not available 04/23/2024 31955 RxNorm JASMYNE PIZANO [address] [place], [address], [facility] 15:09:52 Medications Name Sig Start Date Stop Date Status Note LastModified by Organization Details LastModified Time xarelto no dispense - refill NO DISPENSE 07/23 completed Not Available Not Available Not Available tetracycli ne 500 mg capsule TAKE 1 CAPSULE BY MOUTH FOUR TIMES A DAY FOR 7 DAYS 07/12 completed Not Available Not Available Not Available amoxicilli n 500 mg capsule TAKE 1 CAPSULE BY MOUTH 3 TIMES A DAY 08/23 completed Not Available Not Available Not Available fluconazol e 100 mg tablet TAKE 1 TABLET BY MOUTH EVERY DAY FOR 21 DAYS active Not Available Not Available No t Available bupropion HCl SR 150 mg tablet,12 hr sustained- release TAKE 1 TABLET BY MOUTH TWICE DAILY active Not Available Not Available No t Available azelastine 0.05 % eye drops Instill 1 drop twice a day by ophthalm ic route for 30 days. active Not Available Not Available No t Available acetaminop hen 325 mg tablet TAKE 2 TABLETS BY MOUTH EVERY 6 HOURS X 7 DAYS NEEDED FOR PAIN,MAX 4000 MG/DAY active Not Available Not Available No t Available atorvastat in 10 mg tablet TAKE 1 TABLET BY MOUTH EVERY DAY 07/23 completed Not Available Not Available Not Available azithromyc in 250 mg tablet TAKE 2 TABLETS BY MOUTH TODAY, THEN TAKE 1 TABLET DAILY FOR 4 DAYS DIRECTED 08/22 completed Not Available Not Available Not Available fosfomycin tromethami ne 3 gram oral packet active Not Available Not Available Not Available miconazole nitrate 2 % topical cream APPLY TO PERIWOUN D TWICE DAILY active Not Available Not Available No t Available fluconazol e 150 mg tablet TAKE 1 TABLET BY MOUTH EVERY DAY FOR 5 DAYS active Not Available Not Available No t Available amiodarone 200 mg tablet TAKE 1/2 TABLET BY MOUTH DAILY active Not Available Not Available No t Available benzonatat e 200 mg capsule TAKE 1 CAPSULE BY MOUTH 3 TIMES A DAY NEEDED FOR 14 DAYS 05/31 completed Not Available Not Available Not Available metoprolol succinate ER 50 mg tablet,ext ended release 24 hr TAKE 1 TABLET BY MOUTH DAILY 07/23 completed Not Available Not Available Not Available ampicillin 500 mg capsule TAKE 1 CAPSULE BY MOUTH TWICE DAILY active Not Available Not Available No t Available levetirace paulino 500 mg tablet TAKE 2 TABLETS BY MOUTH TWICE DAILY active Not Available Not Available No t Available senna 8.6 mg tablet TAKE ONE TABLET BY MOUTH TWICE A DAY NEEDED active Not Available Not Available No t Available Milk of Magnesia 400 mg/5 mL oral suspension TAKE 30 ML BY MOUTH DAILY NEEDED active Not Available Not Available No t Available clobetasol 0.05 % topical cream APPLY A THIN LAYER OF CREAM TOPICALL Y TO THE AFFECTED AREA(S) TWICE A DAY active Not Available Not Available No t Available ciprofloxa shahid 250 mg tablet TAKE 1 TABLET BY MOUTH TWICE A DAY 07/27 completed Not Available Not Available Not Available sulfametho xazole 800 mg-trimeth oprim 160 mg tablet TAKE 1 TABLET BY MOUTH EVERY 12 HOURS FOR 10 DAYS active Not Available Not Available No t Available tramadol 50 mg tablet TAKE 1 TABLET BY MOUTH THREE TIMES DAILY NEEDED active Not Available Not Available No t Available vancomycin 125 mg capsule TAKE 1 CAPSULE BY MOUTH TWO TIMES A DAY FOR 36 DAYS. MUST REFILL TO COMPLETE COURSE. active Not Available Not Available No t Available cefadroxil 500 mg capsule 02/28 completed Not Available Not Available Not Available hydrocorti sone 2.5 % topical cream with perineal applicator apply rectally bid for 10 days active Not Available Not Available No t Available methenamin e hippurate 1 gram tablet TAKE ONE TABLET BY MOUTH TWICE A DAY WITH VITAMIN C active Not Available Not Available No t Available Pill Splitter misc FOR USE WITH BACLOFEN 10 MG 07/12 completed Not Available Not Available Not Available Fleet Bisacodyl 10 mg/30 mL enema USE 1 ENEMA RECTALLY DAILY 07/12 completed Not Available Not Available Not Available diazepam 2 mg tablet TAKE 1 TABLET BY MOUTH TWICE DAILY FOR 14 DAYS active Not Available Not Available No t Available baclofen 10 mg tablet TAKE ONE AND ONE HALF TABLETS BY MOUTH THREE TIMES A DAY active Not Available Not Available No t Available bisacodyl 10 mg rectal suppositor y UNWRAP AND INSERT 1 SUPPOSIT ORY RECTALLY DAILY AFTER DINNER active Not Available Not Available No t Available cephalexin 500 mg capsule 09/30 completed Not Available Not Available Not Available pantoprazo le 40 mg tablet,del ayed release TAKE 1 TABLET BY MOUTH TWICE DAILY 2023 active Not Available Not Available Not Avmonse lable olopatadin e 0.1 % eye drops INSTILL 1 DROP INTO AFFECTED EYE(S) BY OPHTHALM IC ROUTE 2 TIMES PER DAY AT AN INTERVAL OF 6 TO 8 HOURS active Not Available Not Available No t Available docusate sodium 100 mg capsule TAKE ONE CAPSULE BY MOUTH TWICE A DAY NEEDED FOR CONSTIPA TION active Not Available Not Available No t Available oxybutynin chloride ER 5 mg tablet,ext ended release 24 hr TAKE 1 TABLET BY MOUTH AT BEDTIME 2023 active Not Available Not Available Not Avai lable gabapentin 300 mg capsule TAKE ONE CAPSULE BY MOUTH THREE TIMES A DAY AT 8AM, 1PM AND 10PM active Not Available Not Available No t Available omeprazole 20 mg capsule,de layed release TAKE 2 CAPSULES BY MOUTH EVERY DAY 2020 active Not Available Not Available Not Avmonse labernesto Culturelle 10 billion cell capsule TAKE 1 CAPSULE BY MOUTH EVERY DAY active Not Available Not Available No t Available lisinopril 5 mg tablet TAKE 1 TABLET BY MOUTH EVERY DAY 12/12 completed Not Available Not Available Not Available midodrine 2.5 mg tablet TAKE 1 TABLET BY MOUTH THREE TIMES A DAY active Not Available Not Available No t Available nystatin 100,000 unit/gram topical powder APPLY TOPICALL Y TO THE AFFECTED AREA TWICE A DAY active Not Available Not Available No t Available cefuroxime axetil 500 mg tablet 08/30 completed Not Available Not Available Not Available levofloxac in 500 mg tablet Take 1 tablet every 24 hours by oral route for 10 days. 2023 active Not Available Not Available Not Avai lable levofloxac in 750 mg tablet TAKE 1 TABLET BY MOUTH EVERY DAY FOR 21 DAYS active Not Available Not Available No t Available methylpred nisolone 4 mg tablets in a dose pack TAKE 6 TABLETS ON DAY 1 DIRECTED ON PACKAGE AND DECREASE BY 1 TAB EACH DAY FOR A TOTAL OF 6 DAYS 03/22 /2024 completed Not Available Not Available Not Available SSD 1 % topical cream APPLY A 1/16TH INCH THICK LAYER TO ENTIRE BURN AREA TOPICALL Y TWICE DAILY active Not Available Not Available No t Available doxycyclin e hyclate 100 mg tablet TAKE 1 TABLET BY MOUTH TWICE DAILY FOR 5 DAYS active Not Available Not Available No t Available loratadine 10 mg tablet Take 1 tablet every day by oral route as needed. active Not Available Not Available No t Available amoxicilli n 875 mg-potassi um clavulanat e 125 mg tablet TAKE 1 TABLET BY MOUTH EVERY 12 HOURS 07/23 completed Not Available Not Available Not Available oxycodone 5 mg tablet PLEASE SEE ATTACHED FOR DETAILED DIRECTIO NS 07/27 completed Not Available Not Available Not Available midodrine 10 mg tablet TAKE 1 TAB BY MOUTH AT 8AM AND 1/2 TAB AT NIGHTTIM E (HOLD IF SYSTOLIC BP>120). 15 MG TOTAL DAILY active Not Available Not Available No t Available escitalopr am 10 mg tablet TAKE ONE TABLET BY MOUTH DAILY active Not Available Not Available No t Available levetirace paulino 100 mg/mL oral solution TAKE 1000MG (10ML) BY MOUTH 2 TIMES DAILY active Not Available Not Available No t Available cranberry extract 500 mg capsule TAKE 1 CAPSULE BY MOUTH EVERY DAY 07/12 completed Not Available Not Available Not Available trospium 20 mg tablet TAKE 1 TABLET BY MOUTH TWICE DAILY active Not Available Not Available No t Available chlorhexid ine gluconate 0.12 % mouthwash RINSE 15 ML AND SPIT ( MOUTH AND THROAT ) BEFORE MEALS AND DIRECTED ( DONT SWALLOW ) active Not Available Not Available No t Available sodium chloride 1,000 mg soluble tablet TAKE 1 TABLET BY MOUTH THREE TIMES DAILY active Not Available Not Available No t Available Dakin's Solution 0.125 % APPLY A DAKINS SOAKED GAUZE TO WOUND FOR 5 MINUTES EVERY OTHER DAY active Not Available Not Available No t Available ferrous sulfate 324 mg (65 mg iron) tablet,del ayed release TAKE 1 TABLET BY MOUTH DAILY active Not Available Not Available No t Available Prevnar 13 (PF) 0.5 mL intramuscu lar syringe 12/04 completed Not Available Not Available Not Available Purelax 17 gram/dose oral powder TAKE 17 GM BY MOUTH DAILY NEEDED FOR CONSTIPA TION. DISSOLVE IN WATER BEFORE TAKING 08/23 completed Not Available Not Available Not Available Suprep Bowel Prep Kit 17.5 gram-3.13 gram-1.6 gram oral solution 12/04 completed Not Available Not Available Not Available ferrous gluconate 324 mg (37.5 mg iron) tablet TAKE 1 TABLET BY MOUTH EVERY DAY 07/27 completed Not Available Not Available Not Available Antacid-An tigas 200 mg-200 mg-20 mg/5 mL oral suspension TAKE 30 ML BY MOUTH EVERY 6 HOURS NEEDED active Not Available Not Available No t Available Xarelto 20 mg tablet TAKE 1 TABLET BY MOUTH EVERY DAY WITH EVENING MEAL 07/23 completed Not Available Not Available Not Available melatonin 10 mg tablet Take 1 tablet every day by oral route at bedtime for 90 days. 2022 active Not Available Not Available Not Avai lable Wal-Mucil Fiber (aspartame ) 3.4 gram/5.8 gram oral powder MIX 2 TABLESPO ONS WITH 8 OZ OF LIQUID AND DRINK BY MOUTH DAILY active Not Available Not Available No t Available Eliquis 5 mg tablet TAKE 1 TABLET BY MOUTH TWICE DAILY 04/23 completed reduce to 2.5 mg BID Not Available Not Available Not Available melatonin ER 10 mg tablet,ext ended release TAKE ONE TABLET BY MOUTH AT BEDTIME active Not Available Not Available No t Available Metamucil 3.4 gram/5.4 gram oral powder Take 2 tbsp every day by oral route as directed for 30 days. 2023 active Not Available Not Available Not Avai lable Flucelvax Quad 8499-3738 (PF) 60 mcg (15 mcg x 4)/0.5 mL IM syringe 12/04 completed Not Available Not Available Not Available Shingrix (PF) 50 mcg/0.5 mL intramuscu lar suspension , kit 04/02 completed Not Available Not Available Not Available baclofen 5 mg tablet TAKE 1 TABLET BY MOUTH THREE TIMES DAILY active Not Available Not Available No t Available Fluzone High-Dose (PF) 180 mcg/0.5 mL intramuscu lar syringe 04/02 completed Not Available Not Available Not Available Venelex topical ointment APPLY TOPICALL Y 3 TIMES A DAY TO AFFECTED AREA NEEDED active Not Available Not Available No t Available Fluzone High-Dose (PF) 180 mcg/0.5 mL intramuscu lar syringe 04/02 completed Not Available Not Available Not Available Fluzone High-Dose Quad 2019- (PF) 240 mcg/0.7 mL IM syringe 03/03 completed Not Available Not Available Not Available BinaxNOW COVID-19 Ag Self Test kit DIRECTED 05/31 completed Not Available Not Available Not Available Paxlovid 300 mg (150 mg x 2)-100 mg tablets in a dose pack 07/23 completed Not Available Not Available Not Available molnupirav ir 200 mg capsule (EUA) TAKE 4 CAPSULE BY MOUTH EVERY 12 HOURS FOR 5 DAYS 05/31 completed Not Available Not Available Not Available Paxlovid 150 mg-100 mg tablets in a dose pack (Renal Dose) TAKE 2 TABLETS BY MOUTH TWICE A DAY FOR 5 DAYS 07/27 completed Not Available Not Available Not Available Vitals Date Recorded Body height Systolic blood pressure Diastolic blood pressure Provider Name and Address Organization Details Last Updated DateTime 07/15/2024 173.36 cm 110 mm[Hg] 68 mm[Hg] Cris Otto [facility] 07/15/2024 15:09:42 Social History Question Answer Notes LastModified by Organizat ion Details LastModified Time Tobacco Smoking Status Former Smoker Aba GeeEmma Milagros, DO [address] [place] [address], [place], [address], [facility] 04/02/2019 15:39:17 What Was The Date Of Your Most Recent Tobacco Screening? 04/29/2024 [email or web address] Information not available 04/29/2024 Do You Or Have You Ever Used Any Other Forms Of Tobacco Or Nicotine? No [email or web address] Information not available 08/30/2021 Sex: Unknown Functional Status None recorded. Mental Status None recorded. Family History Nothing Reported. Medical History No medical history recorded. Immunizations Vaccine Type Date Status Note Provider Nam e and Address Organization Details Recorded Time Influenza, split virus, quadrivalent, preservative 1 completed Not Available [facility] 03/11/2021 16:08:46 Influenza, split virus, quadrivalent, preservative 2 completed Consuelo echeverria [facility] 03/14/2022 07:46:37 COVID-19, mRNA, LNP-S, PF, 100 mcg/0.5mL dose or 50 mcg/0.25mL dose 2 completed Consuelo echeverria [facility] 03/14/2022 07:46:47 zoster, unspecified formulation 2 completed Aba Linares DO [address] [facility], [place], [address], [facility] 07/12/2022 13:59:55 zoster, unspecified formulation 8 completed Fang echeverria [facility] 07/12/2022 14:03:45 Influenza, split virus, quadrivalent, preservative 8 completed Not Available [facility] 03/11/2021 16:08:46 Influenza, split virus, quadrivalent, preservative 9 completed Not Available [facility] 03/11/2021 16:08:46 zoster live 9 completed Not Available [facility] 03/11/2021 16:08:46 Influenza, split virus, quadrivalent, preservative 0 completed Not Available [facility] 03/11/2021 16:08:46 COVID-19, mRNA, LNP-S, PF, 100 mcg/0.5mL dose or 50 mcg/0.25mL dose 1 completed Not Available [facility] 03/11/2021 16:08:46 COVID-19, mRNA, LNP-S, PF, 100 mcg/0.5mL dose or 50 mcg/0.25mL dose 1 completed Not Available [facility] 03/11/2021 16:08:46 Past Encounters Encounter ID Performer Location Encounter Start Date Encounter Closed Date Diagnosis/Indication Diagnosis SNOMED-CT Code Diagnosis ICD10 Code Diagnosis Note [id number] JASMYNE PIZANO [facility] [address] [facility] [facility],[place] [address] 07/15/2024 14:45:27 07/15/2024 16:07:22 Esophageal dysmotility 191048431 K22.4 will set up with GI consult Hyponatremia 69275411 E8 7.1 will set up with fu lab work Health Concerns Section Related Observation LastModified by Organization Detai ls LastModified Time None Recorded Concern Status LastModified by Organization Details LastModified Time None Recorded Payers Encounter Date Sequence Insurance Name Policy Number Policy Kahn Covered Member ID Kahn Member ID Guarantor Name 07/15/[address] [place] [address] [id number] Eran Guerrero [id number] Eran Guerrero Notes Date Note Type Note Provider Name a nd Address Organization Details Recorded Time 5 text/html hospital f/u patient has pressure ulcer, goes to wound clinic, has wound clinicthe patient reports that he was just started on the wound vac (new one) the patient is refusing eating and drinkingthe patient states the patient is currently on sodium pills for the hyponatremiathe patient is getting the watchman procedure the patient is very pale todaylost sig amount of weight having hypotension due to thishas fu with public area attendant, having watchman donehas midodrine, doesn't like the side effects the patient reports that the wound is deepeningthe patient reports that he is having issues swallowing, tends to sip water after everything, the patient the patient reports that he is doing okaythe patient denies depression though he seems like he is depressedthe patient reports that JASMYNE PIZANO [address] [place] [address], [place], [id number], [facility] 07/15/2024 16:05:26
--- OUTSIDE RECORDS SUMMARY | 2024-07-15 18:02 | XMS_ITS ---
Author Name [facility] Organization Unknown History of Medication Use Medication Directions Dispensed Refills Start Date End Date Stat gabapentin (NEURONTIN) 300 MG capsule Take 300 mg by mouth 2 (two) times a day. 02/01/2021 active nirmatrelvir-ritonavi r (PAXLOVID EMERGENCY USE) therapy pack Take 3 Tablets - 300 mg Nirmatrelvir (2 x 150 mg tablets) with 100 mg Ritonavir (1 x 100 mg tablet) twice daily by mouth for 5 Days. Dispense #20 Nirmatrelvir 150 mg Tablets and #10 Ritonavir 100 mg tablets. 05/25/2021 active ascorbic acid (ascorbic acid) 250 MG tablet Take 250 mg by mouth daily. active aluminum-magnesium hydroxide-simethicone (aluminum-magnesium hydroxide-simethicone ) suspension Take 30 mL by mouth 4 times daily (every 6 hours) as needed for indigestion or heartburn. active acetaminophen (TYLENOL) 325 MG tablet Take 650 mg by mouth every 4 (four) hours as needed for mild pain or fever. 02/01/2021 active Problems Problem Status Onset Date Problem Type Date of Resoluti on Source Presence of intrathecal baclofen pump active 2021-04-12 ProblemAct [facility] Transaminitis active 2021-04-12 ProblemAct [facility] T Neurogenic bladder active 2021-03-11 ProblemAct [facility] Gastro-esophageal reflux disease without esophagitis active 2021-02-03 ProblemAct [facility] Tetraplegia active 2021-02-03 ProblemAct [facility] Anemia of chronic disease active 2020-12-10 ProblemAct [facility] Atrial fibrillation active 2020-12-11 ProblemAct [facility] Chronic obstructive pulmonary disease, unspecified active 2021-02-03 ProblemAct [facility] Neurogenic orthostatic hypotension active 2021-04-12 ProblemAct [facility] Constipation active 2021-04-12 ProblemAct [facility] Suprapubic catheter active 2021-04-12 ProblemAct [facility] Traumatic fracture of cervical spine active 2021-04-12 ProblemAct [facility] Sepsis active 2021-04-11 ProblemAct [facility] Acute calculous cholecystitis active 2021-04-12 ProblemAct [facility] Encounters Encounter Type Encounter Reason Primary Diagnosis Location Date Ambulatory Calculus of gallbladder with acute cholecystitis without obstruction [facility] 06/17/2021 Ambulatory Calculus of gallbladder with acute cholecystitis without obstruction [facility] 05/03/2021 Inpatient Cholecystitis, unspecified [facility] 04/10/2021 Inpatient Mechanical complication due to urethral (indwelling) catheter (HC Code) (HC CODE) [facility] 03/10/2021
--- OUTSIDE RECORDS SUMMARY | 2024-07-15 18:02 | XMS_ITS | Clinical Summary ---
Author Organization [facility] Address [address] [place] [address] Care Team Providers Care Trimmer Machine Name Role Phone Unavailable Primary Care Provider Unavailabl e Medications Medication Sig Dispensed Refills Start Date End Date Status tiZANidine (ZANAFLEX) 4 MG tablet Take 4 mg by mouth. 0 10/01/2020 Activ e simethicone (MYLICON) 80 MG chewable tablet Chew 80 mg by mouth. 0 Active senna-docusate (PERICOLACE) 8.6-50 MG Take 1 tablet by mouth daily. 0 04/16/2021 Active senna (SENOKOT) 8.6 MG tablet Take 1 tablet by mouth. 0 Active rivaroxaban (XARELTO) 20 MG TABS tablet Take 20 mg by mouth. 0 09/09/2020 Acti ve psyllium (METAMUCIL) 58.12 % PACK packet Take 1 packet by mouth. 0 04/16/2021 Active [facility] Purelax 17 GM/SCOOP powder TAKE 17GM DISSOLVED IN BEVERAGE EVERY 12 HOURS NEEDED 0 07/16/2021 Active polyethylene glycol (GLYCOLAX) 17 GM/SCOOP powder Take 17 g by mouth every 12 (twelve) hours as needed. 0 Active pantoprazole (PROTONIX) 40 MG tablet Take 40 mg by mouth 2 (two) times a day. 0 07/05/2021 Active pantoprazole (PROTONIX) 40 MG tablet Take 40 mg by mouth. 0 09/09/2020 Acti ve omeprazole (PriLOSEC) 20 MG capsule Take 20 mg by mouth. 0 02/01/2021 Acti ve nystatin (MYCOSTATIN) powder Apply 1 application topically. 0 02/01/2021 Active Paxlovid 20 x 150 MG & 10 x 100MG TBPK tablet therapy pack 0 05/25/2021 Activ e nirmatrelvir & ritonavir (PAXLOVID) 20 x 150 MG & 10 x 100MG TBPK tablet therapy pack Take 3 Tablets - 300 mg Nirmatrelvir (2 x 150 mg tablets) with 100 mg Ritonavir (1 x 100 mg tablet) twice daily by mouth for 5 Days. Dispense #20 Nirmatrelvir 150 mg Tablets and #10 Ritonavir 100 mg tablets. 0 05/25/2021 Active naloxone (NARCAN) 0.4 MG/ML injection Inject 0.4 mg into the vein. 0 04/16/2021 Active Multiple Vitamin (Multi-Vitamin) tablet Take 1 tablet by mouth daily. 0 02/01/2021 Active Multiple Vitamin (Multi-Vitamin) tablet Take 1 tablet by mouth daily. 0 02/01/2021 Active midodrine (PROAMATINE) 10 MG tablet TAKE 1 TABLET BY MOUTH AT 8AM AND 1PM (HOLD IF SYSTOLIC BP>120 0 07/05/2021 Active midodrine (PROAMATINE) 5 MG tablet Take 15 mg by mouth. 0 09/09/2020 Acti ve metoprolol succinate (TOPROL-XL) 24 hr tablet 50 mg Take 50 mg by mouth. 0 09/09/2020 Ac tive melatonin 3 MG TABS tablet Take 9 mg by mouth. 0 09/23/2020 Activ e magnesium oxide (MAG-OX) 400 MG tablet Take 400 mg by mouth. 0 02/02/2021 Active [facility] Milk of Magnesia 400 MG/5ML suspension TAKE 30 ML BY MOUTH DAILY NEEDED 0 07/16/2021 Active magnesium hydroxide (MILK OF MAGNESIA) 400 MG/5ML suspension Take 30 mL by mouth daily as needed. 0 Active lidocaine (LIDODERM) 5 % Apply topically. 0 09/23/2020 Active gabapentin (NEURONTIN) 400 MG capsule Take 400 mg by mouth. 0 09/23/2020 Active gabapentin (NEURONTIN) 300 MG capsule TAKE 1 CAPSULE BY MOUTH TWICE A DAY (AT 8AM AND AT10PM) 0 07/05/2021 Active gabapentin (NEURONTIN) 300 MG capsule Take 300 mg by mouth. 0 09/23/2020 Active Docusate Sodium (DSS) 100 MG CAPS Take 100 mg by mouth. 0 Active Diclofenac Sodium 1 % GEL Apply 2 g topically. 0 02/01/2021 Acti ve chlorhexidine (PERIDEX) 0.12 % solution RINSE 15 ML AND SPIT (MOUTH/THROAT) BEFORE MEALS AND DIRECTED (DO NOT SWALLOW) 0 07/05/2021 Active Fleet Bisacodyl 10 MG/30ML ENEM 0 07/16/2021 Active bisacodyl (DULCOLAX) [address] 10 mg rectally. 0 09/09/2020 Active balsam anita-castor oil (VENELEX) OINT ointment APPLY TO COCCYX AND BUTTOCKS 3 TIMES A DAY 0 07/05/2021 Active Baclofen 55580 MCG/20ML SOSY 20 mL by Intrathecal route. 0 02/01/2021 Active baclofen (LIORESAL) 10 MG tablet Take 10 mg by mouth. 0 09/09/2020 Ac tive baclofen (LIORESAL) 5 MG tablet TAKE 1 & 1/2 TABLET BY MOUTH DAILY AT 7AM, 12PM, 5PM AND AT 11PM 0 07/05/2021 Active baclofen (LIORESAL) 5 MG tablet Take 7.5 mg by mouth. 0 Active atorvastatin (LIPITOR) tablet 10 mg Take 10 mg by mouth. 0 09/09/2020 Acti ve ascorbic acid (VITAMIN C) 250 MG tablet Take 250 mg by mouth. 0 Active Eliquis 5 MG TABS tablet Take 5 mg by mouth every 12 (twelve) hours. 0 07/08/2021 Active apixaban (ELIQUIS) 5 MG TABS tablet Take 5 mg by mouth. 0 A ctive amoxicillin-clavulan ate (AUGMENTIN) 875-125 MG per tablet Take 1 tablet by mouth every 12 (twelve) hours. 0 07/07/2021 Active [facility] Antacid/Anti-Gas 200-200-20 MG/5ML suspension TAKE 30 ML BY MOUTH EVERY 6 HOURS NEEDED 0 07/16/2021 Active alum & mag hydroxide-simethicon e 200-200-20 MG/5ML suspension Take 30 mL by mouth every 6 (six) hours as needed. 0 Active acetaminophen (TYLENOL) 325 MG tablet TAKE 2 TABLETS (650MG) BY MOUTH EVERY 4 HOURS NEEDED 0 07/16/2021 Active acetaminophen (TYLENOL) 325 MG tablet Take 650 mg by mouth every 4 (four) hours as needed. 0 09/09/2020 Active UNABLE TO FIND Take 1 tablet by mouth. 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 Social History Tobacco Use Types Packs/Day Years Used Date Smoking Tobacco: Former Smokeless Tobacco: Former Alcohol Use Standard Drinks/Week Comments Not Currently 0 (1 standard drink = 0.6 oz pur e alcohol) Sex and Gender Information Value Date Recorded Sex Assigned at Not on file Gender Identity Not on file Sexual Orientation Not on file Job Start Date Occupation Industry Not on file Not on file Not on file Last Filed Vital Signs Vital Sign Reading Time Taken Comments Blood Pressure 101/58 07/22/2021 10:48 AM EDT Pulse 60 07/22/2021 10:48 AM EDT Temperature 36.6 ??C (97.8 ??F) 07/22/2021 10:48 AM E DT Respiratory Rate - - Oxygen Saturation - - Inhaled Oxygen Concentration - - Weight 95.3 kg (210 lb) 07/22/2021 10:48 AM EDT Height 172.7 cm (5' 8 ) 07/22/2021 10:48 AM EDT Body Mass Index 31.93 07/22/2021 10:48 AM EDT Plan of Treatment Health Maintenance Due Date Last Done Comments Hepatitis C Screening 1950 COVID-19 Vaccine (#1) 02[birth year]06/1951 Depression Screening 1964 BMI Counseling 1970 Preventative Health Evaluation 1970 DTap / Tdap / Td (1 - Tdap) 08/08/1971 Colon Cancer Screening (Colonoscopy) 1997 Shingrix-Zoster Vaccine (1 of 2) 2002 Fall Risk Assessment 2017 Pneumococcal Vaccine (1 of 1 - PCV) 2017 Influenza Vaccine (#1) 2024 01/20/2021 RSV Adult > 60+ Yrs or Pregn ant (1 - 1-dose 75+ series) 08/08/2027 Hepatitis B Vaccines Aged Out No long er eligible based on patient's age to complete this topic RSV Ped < 20 months Aged Out No longe r eligible based on patient's age to complete this topic Eran Guerrero Workers Comp Self 1950 [address] [facility] [place], [place] Eran Guerrero Personal/Family Self 1950 [address] [facility], [place] Eran Guerrero TPL/AUTO Self 1950 [address] [place] [address]
--- OUTSIDE RECORDS SUMMARY | 2024-07-15 18:02 | XMS_ITS | Continuity of Care Document ---
Author Organization [facility] ter Address [address] [place] [id number]- Care Team Providers Care Inspector Plumbing Name Role Phone Aidenne Aba Gee Primary Care Physician [place] [facility] [place]): [place] 07/01/[address] [address]- Discharge Disposition: A-Transfer VNA/Home Health Attending Physician: Julio Faust MD Admitting Physician: Javon Quintanilla MD Referring Physician: Not on Staff, Referring MD Encounter Type: Disch IP Allergies, Adverse Reactions, Alerts No Known Allergies [...] virus vaccine, inactivated 04/17/16 Rohit rded SARS-CoV-2(COVID-19)mRNA-LNP vac([id number]) 02/24/24 Recorded SARS-CoV-2(COVID-19)mRNA-LNP vac([id number]) 04/15/23 Recorded RSV vaccine preF3, recombinant 04/15/23 Recorded [id number] bivalent booster vax 03/10/22 Recorded zoster vaccine, [...] 11:37:00 AM EST, Route to Pharmacy Electronically, [facility], Partial fill upon patient request [...] number: 1 baclofen 10 mg oral tablet 5 mg, Tablet, By Mouth, 07/01/24 9:00:00 AM EST Start Date: 07/01/24 Stop Date: 07/01/24 Status: Completed Repeat number: 1 baclofen 5 mg oral tablet 1 tablet = 5 mg, By Mouth, 3 times a day, # 90 tablet, 1 Refills, Maintenance, 07/01/24 2:04:00 PM EST, Tablet, [id number] ([facility]), Partial fill upon patient request [...] Maintenance, 07/01/24 2:04:00 PM EST, Tablet, [facility] [id number] ([facility]), Partial fill upon patient request [...] antibiotics on Monday and fax results to [facility] [place] [phone] and PCP, 04/08/24 2:27:00 PM EST, Supply [...] each, Refills 0, Tot. Refills 0, Maintenance, 24/ home health aid and an overlap of [...] Unit: kit Repeat number: 1 nystatin topical 623896 u/gm powder APPLY TOPICALLY TO THE AFFECTED AREA TWICE A DAY Start Date: 03/26/24 Status: Ordered Repeat number: 1 pantoprazole 40 mg oral delayed release tablet 1 tablet = 40 mg, By Mouth, 2 times a day, # 120 tablet, 0 Refills, Maintenance, 06/05/24 9:51:00 AMEST, CR Tablet Start Date: 06/05/24 Status: Ordered Quantity: 120.0 Unit: tablet Repeat number: 1 Please provide 28/11 REGISTERED NURSE FLOAT POOL care and weekly VNA visits for medication management. Please provide 28/11 REGISTERED NURSE FLOAT POOL care and weekly VNA visits for medication [...] Refills, Maintenance, 07/01/24 2:03:00 PM EST, Tablet, [facility] [id number] ([facility] 827), Partial fill upon patient request if [...] Confirmed Active Constipation Confirmed Active CAD in [place] artery Confirmed Active Presence of intrathecal baclofen pump Confirmed Active Lower extremity edema Confirmed Active GERD (gastroesophageal reflux disease) Confirmed Active Neurogenic bladder Confirmed Active Seizure-like activity Confirmed Active Sacral decubitus ulcer, stage IV Confirmed Active Suprapubic catheter Confirmed Active Quadriplegia Confirmed Active 1Hemoglobin 06/29/23-10 Results Radiology Reports * Exam Date Time Procedure Performing Provider Status 06/30/24 6:36 PM Abdomen AP Sathya Tavares; Auth (V erified) Notes: (Abdomen AP) Reason For Exam: Diarrhea RESULT: XR Abdomen AP PROCEDURE: XR Abdomen AP CLINICAL INDICATION: 73 years old Male with Reason: Diarrhea; Clinical Question(s): Obstruction. TECHNIQUE: AP supine KUB obtained. COMPARISON: October 13, 2023, enhanced CT abdomen and pelvis June 04, 2024.. FINDINGS: Two views required for complete evaluation. Lines and tubes: None Bowel gas pattern: Gas in small and large bowel loops in a nonspecific pattern. Soft tissues: No masses or visceromegaly. No calcifications. Bones: The patient's RIGHT hand projects over the RIGHT upper quadrant. Moderate degenerative changes in the lumbar spine. Mild osteopenia suspected. IMPRESSION: 1. No evidence of acute abdominal abnormality. Thank you for allowing me to participate in the care of this patient. WSN: [id number] Ordering Physician: Kristofer Azul Dictated By: Levy Coyne MD Dictated Date/Time: 06/30/24 7:52 pm Reviewed By: Levy Coyne MD Signed By: Levy Coyne MD Signed Date/Time: 06/30/24 7:52 pm Transcribed By: JEANETTE Transcribed Date/Time: 06/30/24 7:47 pm * Exam Date Time Procedure Performing Provider Status 06/17/24 9:31 PM Chest 2 Views Frontal and Lat Rosalba Keith; Auth (Verified) Notes: (Chest 2 Views Frontal and Lat) Reason For Exam: Shortness of Breath RESULT: Chest 2 Views Frontal and Lat Chest 2 Views Frontal and Lat Hx of Present Illness: decrease PO for a few days, general malaise; Reason: Shortness of Breath; Clinical Question(s): Pneumonia COMPARISON: 06/04/2024 FINDINGS: LINES AND TUBES: None. LUNGS AND PLEURA: Clear lungs. Normal pulmonary vascularity. No pleural effusion. No pneumothorax. HEART, MEDIASTINUM AND AURELIO: Heart is normal in size. Normal mediastinal and hilar contour. BONES AND SOFT TISSUES: No acute abnormality. IMPRESSION: No acute abnormality. WSN: [id number] Ordering Physician: Eriberto Snigh Dictated By: Sheng Sarkar MD Dictated Date/Time: 06/17/24 9:38 pm Reviewed By: Sheng Sarkar MD Signed By: Sheng Sarkar MD Signed Date/Time: 06/17/24 9:38 pm Transcribed By: JEANETTE Transcribed Date/Time: 06/17/24 9:37 pm Vital Signs Most recent to oldest [Reference Range]: 1 2 3 Height 178 cm (07/01/24 3:27 PM) 178 cm (07/01/24 7:28 AM) 178 cm (06/29/24 9:30 PM) Weight 88 kg (06/18/24 10:32 PM) Oxygen Saturation [94-100 %] 100 % (07/01/24 3:27 PM) 100 % (07/01/24 7:28 AM) 98 % (06/30/24 11:08 PM) Pulse Rate [55-90 bpm] 44 bpm *L* (07/01/24 3:27 PM) 49 bpm *L* (07/01/24 7:28 AM) 49 bpm *L* (06/30/24 8:00 PM) Body Mass Index [18.5-24.99 kg/m2] 27.77 kg/m2 *H* (06/18/24 10:32 PM) Blood Pressure [90-138/55-84 mm Hg] 89/43mm Hg *L* (07/01/24 3:27 PM) 92/45mm Hg (07/01/24 7:28 AM) 95/47mm Hg (06/30/24 8:00 PM) Respiratory Rate [16-30 br/min] 16 br/min (07/01/24 3:27 PM) 18 br/min (07/01/24 9:54 AM) 16 br/min (07/01/24 7:28 AM) Temperature [96.8-100.4 DegF] 98.2 DegF (07/01/24 3:27 PM) 98.1 DegF (07/01/24 7:28 AM) 97.5 DegF (06/30/24 8:00 PM) Liters per Minute 2 L/min (06/29/24 8:00 PM) 2 L/min (06/29/24 3:19 PM) 1 L/min (06/28/24 8:07 PM) Mode of Delivery (Oxygen) Room air (07/01/24 3:27 PM) Room air (07/01/24 7:28 AM) Room air (06/30/24 8:00 PM) Blood pressure sites Arm, right (07/01/24 3:27 PM) Arm, left (07/01/24 7:28 AM) Arm, right (06/30/24 8:00 PM) Temperature Route Oral (07/01/24 3:27 PM) Oral (07/01/24 7:28 AM) Oral (06/30/24 8:00 PM) Dry Weight 88 kg (06/18/24 10:32 PM) Social History Social History Type Response Smoking Status Former smoker, quit more than 30 days ago; Type: Cigarettes; Other: quit smoking 2020; entered on: 12/12/23 Sex Sex Representation Male (finding) Consult note * Sudhakar Knox MD: PERFORM Event Display: Consult Authored Date: [id number] Patient: ??ADRIAN TORREZ ? Age:??73 Years?Sex:??Male?:??1950?? History of Present Illness 73-year-old male??with past medical history significant for quadriplegia??due to cervical spine injury in 2020, intrathecal baclofen pump,??chronic sacral decubitus ulcer with recent wound vac placement,??neurogenic bladder with suprapubic catheter in place,??multiple prior UTIs,??nephrolithiasis with chronic left-sided??hydronephrosis??after urologic procedures??12/2023,??C. difficile??diarrhea 12/2023,??atrial fibrillation, coronary artery disease,??COPD,??seizure-like activity,??and recent hospitalization??06/04/2024 to 06/08/2024??for sepsis secondary to??MRSA UTI (completed a course of doxycyc line??and prophylactic??oral vancomycin), presented for??worsening lethargy and fever 101 per??homePCA. Nephrology consulted for hyponatremia management. ?? Patient was admitted 06/18 and treated for a complicated UTI w/ bactrim.??Abx??treatment completed 06/23 and patient was pending dispo. On??06/25 patient was noted to by hyponatremic to 126 and was assessed to be possibly hypovolemic at the time. He was given a 1L NS bolus w/ repeat sodium decreasing further to 122. Review of Systems A full review of systems was completed and is otherwise negative except as mentioned in history of present illness. Objective Measurements?? Height: 178 cm (06/26/24) Weight: 88 kg (06/18/24) Dry Weight: 88 kg (06/18/24) Body Mass Index:??27.77 kg/m2??High (06/18/24) ? Vital Signs?? Temperature: 97.4 DegF (06/26/24 08:14:00) Temperature Route: Oral (06/26/24 08:14:00) Pulse Rate: 55 bpm (06/26/24 08:14:00) Respiratory Rate: 17 br/min (06/26/24 14:21:00) Systolic Blood Pressure: 129 mm Hg (06/26/24 08:14:00) Diastolic Blood Pressure:??48 mm Hg??Low (06/26/24 08:14:00) Blood pressure sites: Leg, left (06/26/24 08:14:00) Mean Arterial Pressure: 75 mm Hg (06/26/24 08:14:00) Pulse Pressure: 81 mm Hg (06/26/24 08:14:00) Oxygen Saturation: 96 % (06/26/24 08:14:00) Mode of Delivery (Oxygen): Room air (06/26/24 08:14:00) FiO2: 21 % (06/25/24 23:00:00) Early Warning Score: 4 (06/26/24 14:26:35) ? Physical Exam General: Patient in no acute distress?? HEENT: normocephalic, atraumatic, moist mucous membranes with no oral lesions. Respiratory: bilateral equal air entry, clear to auscultation with no wheezes or crackles. Adequaterespiratory rate and effort on room air.?? CVS: regular rate and rhythm, S1 and S2 present, no murmurs, rubs or gallops. No JVD.?? Abdomen: soft, non tender, non distended, bowel sounds present, no organomegaly.?? Extremities: no cyanosis, pulses present and equal bilaterally. No edema noted b/l.?? Assessment/Plan ?? Assessment:??73-year-old male??with past medical history significant for quadriplegia, chronic sacral decubitus ulcer,??neurogenic bladder with suprapubic catheter,??multiple prior UTIs,??nephrolithiasis with chronic left- sided??hydronephrosis, C. difficile??diarrhea 12/2023,??atrial fibrillation, coronary artery disease,??COPD,??seizure-like activity who??was treated for a UTI and developed hypoosmolar hyponatremia, worsening to Na 122 after NS bolus concerning for SIADH. ?? Hypoosmolar Hyponatremia Patient is euvolemic on exam Serum Osm??275, w/ high urine sodium suggestive of SIADH, likely in the setting of infection ?? -1L fluid restriction -repeat BMP in AM -ordered repeat urine Na and Osm??for AM -ordered urine urea testing ?? Sudhakar Knox MD Internal Medicine, PGY1 Pager: [phone] ? Histories Allergies Allergies ?(Active and Proposed Allergies Only) NKA? (Severity: Unknown severity, Onset: Unknown) ? Past Medical History/Problem List Active Problems(17) Anemia Atrial fibrillation CAD in [place] artery Constipation COPD (chronic obstructive pulmonary disease) Elevated troponin GERD (gastroesophageal reflux disease) Hematuria Lower extremity edema Neurogenic bladder Presence of intrathecal baclofen pump Quadriplegia Sacral decubitus ulcer, stage IV Seizure-like activity Spinal cord injury, cervical region Suprapubic catheter Weakness ? Past Surgical History Carpal tunnel release-b/l Rotator cuff repair-L Baclofen pump implant Decompression of cervical spine Suprapubic catheter Inguinal herniorrhaphy ? Social History Alcohol Details:??Use: Past. ??Type: Liquor. ??Other: last alcoholic beverage was 2020. Employment/School Details:??Status: Retired. Home/Environment Details:??Living situation: Home with assistance. ??Lives with: Spouse. ??Other: has 28/11 home health staff. Substance Abuse Details:??Use: Never. Tobacco Details:??Use: Former smoker, quit more than 30 days ago. ??Other: quit smoking 2020. ??Type: Cigarettes. Electronic Cigarette/Vaping Details:??Electronic Cigarette Use: Never. ? Family History Mother: Diabetes mellitus Father: Diabetes mellitus Brother: Diabetes mellitus ? Medications Home Medications Acetaminophen (Tylenol 325 mg oral tablet)??650 Milligram 2 tablet By Mouth Every 6 hours as neededas needed for mild pain or fever amiODARONE (amiodarone 200 mg oral tablet)??100 Milligram 0.5 tablet By Mouth 2 times a day for 30 Days Ascorbic Acid (ascorbic acid 500 mg oral tablet)??1 tab(s) 500 Milligram By Mouth 2 times a day Baclofen (baclofen 10 mg oral tablet)??15 Milligram 1.5 tablet By Mouth 3 times a day for 30 Days Bisacodyl (bisacodyl 10 mg rectal suppository)??UNWRAP AND INSERT 1 SUPPOSITORY RECTALLY DAILY AFTER DINNER Diazepam (diazepam 2 mg oral tablet)??2 Milligram 1 tablet By Mouth 2 times a day as needed Pain , Mild Docusate (docusate sodium 100 mg oral capsule)??1 capsule 100 Milligram By Mouth Daily at bedtime Durable Medical Equipment (doughnut pillow)??See Instructions Use while sitting down to prevent pressure in the sacral wound Durable Medical Equipment (Wet to Dry Dressing Changes Daily)??See Instructions Lightly moisten Kerlix in normal saline and apply to wound packing daily for managment of sacral decubitius ulcer (L89.159) Cover wound with Mepilex Ferrous Sulfate (ferrous sulfate 324 mg (65 mg elemental iron) oral delayed release tablet)??1 tab(s) 324 Milligram By Mouth Daily levETIRAcetam (levETIRAcetam 100 mg/mL oral solution)??5 Milliliter 500 Milligram By Mouth 2 times a day Melatonin (melatonin 10 mg oral tablet)??1 tab(s) 10 Milligram By Mouth Daily at bedtime Methenamine (methenamine hippurate 1 gm oral tablet)??TAKE ONE TABLET BY MOUTH TWICE A DAY WITH VITAMIN C Midodrine (midodrine 5 mg oral tablet)??See Instructions as needed 2 tablet PRN sys BP <90 BloodPressure Miscellaneous Rx (CBC w/ Diff, CMP, ESR and CRP)??See Instructions Please obtain weekly while on antibiotics on Monday and fax results to [facility] [place] [phone] and PCP Miscellaneous Rx (Home health aid)??See Instructions 24/ home health aid and an overlap of 4 hoursfor the morning routine with nursing 1 per week for bowel and bladder oversight and medication management.Dx: Tetraplegia Miscellaneous Rx (MELATONIN TR 10 MG Tablet Extended Release)??TAKE ONE TABLET BY MOUTH AT BEDTIME Miscellaneous Rx (Nursing: Increase baclofen to 15 mg )??See Instructions Dx: Spasticity Miscellaneous Rx (Please provide 24/ REGISTERED NURSE FLOAT POOL care and weekly VNA visits for medication management.)??See Instructions Dx: Tetraplegia Multivitamin With Minerals??1 tab(s) By Mouth Daily Nystatin Topical (nystatin topical 640027 u/gm powder)??APPLY TOPICALLY TO THE AFFECTED AREA TWICE A DAY Pantoprazole (pantoprazole 40 mg oral delayed release tablet)??1 tab(s) 40 Milligram By Mouth 2 times a day Senna (Senna-Time 8.6 mg oral tablet)??TAKE ONE TABLET BY MOUTH TWICE A DAY NEEDED Sodium Hypochlorite Topical (Dakins Quarter Strength 0.125% topical solution)??APPLY A DAKINS SOAKED GAUZE TO WOUND FOR 5 MINUTES EVERY OTHER DAY ? Inpatient Medications Medications (21) Active SCHEDULED: (12) Amiodarone 200 mg Tablet (amiodarone 200 mg oral tablet) ??100 mg, By Mouth, 2 times a day Baclofen 10 mg Tablet (baclofen 10 mg oral tablet) ??5 mg, By Mouth, 3 times a day Docusate Sodium 100 mg Capsule (docusate sodium 100 mg oral capsule) ??100 mg 1 capsule, By Mouth, Daily at bedtime Enoxaparin 40 mg Inj (Enoxaparin Inj) ??40 mg 0.4 mL, Subcutaneous Injection, Daily Fluticasone Propionate 50mcg/inh Nasal [place] (fluticasone 50 mcg/inh nasal spray) ??100 mcg 2 sprays, Nares, Both, Daily levETIRAcetam 500 mg/5mL Solu (levETIRAcetam Liquid) ??500 mg 5 mL, By Mouth, 2 times a day Multivitamin Therapeutic / Minerals [...] Capsule (Vancomycin Capsule) ??125 mg, By Mouth, 2 times a day Vashe Wound Care Emollient/Cleanser (Vashe Topical Solution) ??475 mL, Topically, Every other day CONTINUOUS: (0) PRN: (9) Acetaminophen 325 mg Tablet (Acetaminophen Tablet) ??650 mg, By Mouth, Every 4 hours Al hydroxide/Mg hydroxide/simethicone 200 mg-200 mg-20 mg/5 mL Susp UD (Maalox Plus Liquid) ??30 mL, By Mouth, Every 8 hours Baclofen 10 mg Tablet (baclofen 10 mg oral tablet) ??5 mg, By Mouth, 3 times a day Bisacodyl 10 mg Suppository (Dulcolax Supp) ??10 mg 1 supp, Rectally, Daily Diazepam 2 mg Tablet (diazepam 2 mg oral tablet) ??2 mg, By Mouth, 2 times a day Melatonin 3 mg Tablet (Melatonin Tablet) ??9 mg, By Mouth, Daily at bedtime NaCl 0.9% Flush 3ml (NaCL 0.9% Flush) ??3 mL, IV Push, Every 8 hours Polyethylene Glycol 17 Gm Powder (MiraLax Powder) ??17 Gm 1 pack/packet, By Mouth, Daily Senna Tablet ??8.6 mg 1 tablet, By Mouth, 2 times a day ? Results Recent Labs BLOOD COUNT & DIFF WBC 6.5 k/mm3 ()?? 06/26/2024 00:35 RBC 2.93 m/mm3 (Low)?? 06/26/2024 00:35 Hgb 7.8 Gm/dL (Low)?? 06/26/2024 00:35 Hct 24.0 % (Low)?? 06/26/2024 00:35 MCV 81.9 femtoliters ()?? 06/26/2024 00:35 MCH 26.6 pg (Low)?? 06/26/2024 00:35 MCHC 32.5 Gm/dL (Low)?? 06/26/2024 00:35 Platelet Count 273 k/mm3 ()?? 06/26/2024 00:35 RDW-SD 46.1 femtoliters ()?? 06/26/2024 00:35 MPV 9.3 femtoliters (Low)?? 06/26/2024 00:35 Nucleated RBC (Automated) 0.0 #/100 WBC'S ()?? 06/26/2024 00:35 Abs. NRBC 0.0 k/mm3 ()?? 06/26/2024 00:35 ?? CHEM GENERAL Sodium 125 mmol/L (Low)?? 06/26/2024 10:27 Potassium 4.4 mmol/L ()?? 06/26/2024 10:27 Chloride 89 mmol/L (Low)?? 06/26/2024 10:27 Bicarbonate Level 25 mmol/L ()?? 06/26/2024 10:27 Anion Gap 11 mmol/L ()?? 06/26/2024 10:27 Glucose Level 113 mg/dL (High)?? 06/26/2024 10:27 BUN 21 mg/dL ()?? 06/26/2024 10:27 Creatinine-Blood 0.74 mg/dL ()?? 06/26/2024 10:27 Estimated GFR Creatinine 97 ML/MIN/1.73 M2 ()?? 06/26/2024 10:27 Osmolality 275 mOs/kg (Low)?? 06/25/2024 10:56 Calcium 8.8 mg/dL ()?? 06/26/2024 10:27 ?? ENDOCRINE/TUMOR MARKER TSH 0.95 uIU/mL ()?? 06/26/2024 10:27 Cortisol Level 10.9 ??g/dL ()?? 06/26/2024 10:27 ?? URINE OTHER Sodium, Urine Random 59 mmol/L ()?? 06/26/2024 14:46 Osmolality, Urine Random 296 mOsm/kg ()?? 06/26/2024 14:46 Est Creatinine Clearance 94.77 mL/min ()?? 06/26/2024 11:13 ? * Hung Tamez DO: PERFORM Event Display: Consult Authored Date: Renal attending addendum: Patient seen and examined on date of service and I agree with the above described assessment and recommendations put forward by the resident physician.?? Hypoosmolar hyponatremia with appearance of euvolemia.?? His urine osmolality is not consistent with SIADH as I do suspect that some relative excess free water and relative decrement of adequate osmotic/solute intake isplaying a role here.?? Recommendations as above. * Adrian Garcia MD: PERFORM Event Display: Consultation Note Authored Date: [id number] Patient: ??ADRIAN TORREZ ? Age:??73 Years?Sex:??Male?:??1950?? 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 difficile??diarrhea 12/2023,??atrial fibrillation (not on anticoagulation due to hematuria), coronary artery disease,??COPD,??seizure-like activity,??and recent hospitalization? ?06/04/2024 to 06/08/2024??for sepsis secondary to??MRSA UTI. ?? The patient has recently had a wound VAC in place for his chronic sacral decubitus ulcer, and goes to the wound clinic weekly. ??The patient was brought to the hospital on 06/18??today??due to worsening lethargy??low-grade fever. ?? Social history: He lives at home with his and??has/had extensive nursing care??but apparently there have been??and his and many agencies??resulting in gaps in care. ?? I was asked to consult given my knowledge of the patient and??possible ability to help with discharge planning. ?? August 01, 2024, 2:00 PM Physical Exam Vitals & Measurements T:??98?F?? HR:??58??(Peripheral)?? RR:??16?? BP:??110/62?? SpO2:??100%?? HT:??178??cm?? WT:??88??kg?? BMI:??27.77?? Well-developed man.?? Slightly sleepy??with impaired attention. Oriented x 2. ?? Detailed neurological exam deferred due to mentation.?? Seems to be at baseline. ?? Spasticity??extremely minimal to none. ??A little difficult to assess due to contractures. Assessment/Plan 73-year-old man with??C5 EMILY A??plegia??and an intrathecal baclofen pump??with??numerous??comorbidities including??chronic sacral decubitus ulcer. ?? His lower??extremity??spasticity is extremely well-controlled??on a medium dose of intrathecal baclofen. He has some residual upper extremity spasticity for which he takes??baclofen??10 to 15 mg three times a day. Given how Agnes is currently??as well as his??likely mild delirium,??I would recommend decreasing itto 10 mg three times a day??and monitoring for any discomfort??resulting from emerging spasticity??which I suspect will not be a problem.??In several days, if he is still loose??with impaired sensorium could decrease it to 5 mg three times a day. ?? His low reservoir alarm date is August 07 and he has an appointment with us on August 01 for a pump refill. ?? Regarding his disposition,??it appears his needs are not being met at home,??I could join??a familymeeting??on 06/25??if that would be helpful. ?? Note: It does not appear that the patient needs any MRIs??but the presence of a pump is not a barrier to this.?? Ideally we should see him within 24 hours of the MRI to interrogate his pump. ?? Case discussed with??Dr. Gavin Vital, hospitalist resident. Problem List/Past Medical History Ongoing Anemia Atrial fibrillation CAD in [place] artery Constipation COPD (chronic obstructive pulmonary disease) Elevated troponin GERD (gastroesophageal reflux disease) Hematuria Lower extremity edema Neurogenic bladder Presence of intrathecal baclofen pump Quadriplegia Sacral decubitus ulcer, stage IV Seizure-like activity Spinal cord injury, cervical region Suprapubic catheter Weakness Procedure/Surgical History Carpal tunnel release-b/l Rotator cuff repair-L Baclofen pump implant Inguinal herniorrhaphy Decompression of cervical spine Suprapubic catheter Home Medications Acetaminophen: 650 mg = 2 tablet, By Mouth, Every 6 hours, PRN (Pain , Mild) amiODARONE: 100 mg = 0.5 tablet, By Mouth, 2 times a day Ascorbic Acid: 500 mg = 1 tablet, By Mouth, 2 times a day Baclofen: 15 mg = 1.5 tablet, By Mouth, 3 times a day Bisacodyl: UNWRAP AND INSERT 1 SUPPOSITORY RECTALLY DAILY AFTER DINNER Diazepam: 2 mg = 1 tablet, By Mouth, 2 times a day, PRN (Pain , Mild) Docusate: 100 mg = 1 capsule, By Mouth, Daily at bedtime Durable Medical Equipment (doughnut pillow) (doughnut pillow) (doughnut pillow): See Instructions, Use while sitting down to prevent pressure in the sacral wound Durable Medical Equipment (Wet to Dry Dressing Changes Daily): See Instructions, Lightly moisten Kerlix in normal saline and apply to wound packing daily for managment of sacral decubitius ulcer (L89.159) Cover wound with Mepilex Ferrous Sulfate: 324 mg = 1 tablet, By Mouth, Daily levETIRAcetam: 500 mg = 5 mL, By Mouth, 2 times a day Melatonin: 10 mg = 1 tablet, By Mouth, Daily at bedtime Methenamine: TAKE ONE TABLET BY MOUTH TWICE A DAY WITH VITAMIN C Midodrine: See Instructions, PRN (Blood Pressure), 2 tablet PRN sys BP <90 Miscellaneous Rx (Home health aid): See Instructions, / home health aid and an overlap of 4 hours for the morning routine with nursing 1 per week for bowel and bladder oversight and medication management.Dx: Tetraplegia Miscellaneous Rx (MELATONIN TR 10 MG Tablet Extended Release): TAKE ONE TABLET BY MOUTH AT BEDTIME Miscellaneous Rx (CBC w/ Diff, CMP, ESR and CRP): See Instructions, Please obtain weekly while on antibiotics on Monday and fax results to [facility] [place] [phone] and PCP Miscellaneous Rx (Please provide 24/7 REGISTERED NURSE FLOAT POOL care and weekly VNA visits for medication management.) (Please provide 24/ REGISTERED NURSE FLOAT POOL care and weekly VNA visits for medication management.) (Please provide 24/ REGISTERED NURSE FLOAT POOL care and weekly VNA visits for medication management.): See Instructions, Dx: Tetraplegia Miscellaneous Rx (Nursing: Increase baclofen to 15 mg 3) (Nursing: Increase baclofen to 15 mg 3): See Instructions, Dx: Spasticity Multivitamin With Minerals: 1 tablet, By Mouth, Daily Nystatin Topical: APPLY TOPICALLY TO THE AFFECTED AREA TWICE A DAY Pantoprazole: 40 mg = 1 tablet, By Mouth, 2 times a day Senna: TAKE ONE TABLET BY MOUTH TWICE A DAY NEEDED Sodium Hypochlorite Topical: APPLY A DAKINS SOAKED GAUZE TO WOUND FOR 5 MINUTES EVERY OTHER DAY Hospital Medications Medications (20) Active SCHEDULED: (12) Amiodarone 200 mg Tablet (amiodarone 200 mg oral tablet) ??100 mg, By Mouth, 2 times a day Baclofen 10 mg Tablet (baclofen 10 mg oral tablet) ??15 mg, By Mouth, 3 times a day Docusate Sodium 100 mg Capsule (docusate sodium 100 mg oral capsule) ??100 mg 1 capsule, By Mouth, Daily at bedtime Enoxaparin 40 mg Inj (Enoxaparin Inj) ??40 mg 0.4 mL, Subcutaneous Injection, Daily levETIRAcetam 500 mg/5mL Solu (levETIRAcetam Liquid) ??500 mg 5 mL, By Mouth, 2 times a day Multivitamin Therapeutic / Minerals Tablet (Multivit Therapeutic/Minerals Tablet) ??1 tablet, By Mouth, Daily NaCl 0.9% Flush 3ml (NaCL 0.9% Flush) ??3 mL, IV Push, Every 8 hours Nystatin Powder ??1 application, Topically, 2 times a day Pantoprazole 40 mg EC Tablet (pantoprazole 40 mg oral delayed release tablet) ??40 mg, By Mouth, 2 times a day Sulfamethoxazole 800 mg/Trimethoprim 160 mg Tablet (Bactrim DS Tablet) ??1 tablet, By Mouth, 2 times a day Vancomycin 125 mg Capsule (Vancomycin Capsule) ??125 mg, By Mouth, 2 times a day Vashe Wound Care Emollient/Cleanser (Vashe Topical Solution) ??475 mL, Topically, Every other day CONTINUOUS: (0) PRN: (8) Acetaminophen 325 mg Tablet (Acetaminophen Tablet) ??650 mg, By Mouth, Every 4 hours Al hydroxide/Mg hydroxide/simethicone 200 mg-200 mg-20 mg/5 mL Susp UD (Maalox Plus Liquid) ??30 mL, By Mouth, Every 8 hours Bisacodyl 10 mg Suppository (Dulcolax Supp) ??10 mg 1 supp, Rectally, Daily Diazepam 2 mg Tablet (diazepam 2 mg oral tablet) ??2 mg, By Mouth, 2 times a day Melatonin 3 mg Tablet (Melatonin Tablet) ??9 mg, By Mouth, Daily at bedtime NaCl 0.9% Flush 3ml (NaCL 0.9% Flush) ??3 mL, IV Push, Every 8 hours Polyethylene Glycol 17 Gm Powder (MiraLax Powder) ??17 Gm 1 pack/packet, By Mouth, Daily Senna Tablet ??8.6 mg 1 tablet, By Mouth, 2 times a day Lab Results PM&R Labs ?? Tox Screen?? WBC: 5.8 k/mm3 (06/21/24) Vancomycin Level, Trough: 16.1 mg/L (06/08/24) Platelet Count: 313 k/mm3 (06/21/24) ?? Sodium: 137 mmol/L (06/21/24) ?? BUN: 20 mg/dL (06/21/24) ?? Creatinine-Blood: 0.9 mg/dL (06/21/24) ?? Vancomycin Level, Trough: 16.1 mg/L (06/08/24) ?? AST (SGOT): 19 units/L (06/17/24 20:27:00) AST (SGOT): 13 units/L (06/04/24 15:24:00) ALT (SGPT): 12 units/L (06/17/24 20:27:00) ALT (SGPT): 5 units/L (06/04/24 15:24:00) * Adi Rueda MD: PERFORM, MODIFY, SIGN, VERIFY, MODIFY, SIGN Event Display: Consultation Note Authored Date: Patient: ADRIAN TORREZ Age: 73 years Sex: Male : 1950 Associated Diagnoses: None Author: Adi Rueda MD INFECTIOUS DISEASES CONSULTATION NOTE Requesting Attending/Provider: Dr. 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 Patient is brought into the hospital with concerns of increased lethargy. It seems that the patient had a wound VAC placed over the sacral decubitus ulcer the he had been noted previously with but his nurse stopped working with a reason for which no further wound VAC care have been provided in some time. Nosignificant symptomatology during the initial triage without any evidence of fever or chills. Evaluation in the emergency room showed sacral decubitus ulcer with some erythema surrounding the wound itself but no obvious drainage after the wound VAC was removed. He was noted to be mildly lethargic bu t no other concerning findings suggestive of sepsis. Blood pressures were noted to be somewhat softbut stable after fluid resuscitation. Further blood work noted that the patient had a significantlydecreased hemoglobin. Given abnormal urinalysis, there was concern of potential UTI and the patientwas admitted. Although no fever reported to the primary team in the emergency room it seems that one of his REGISTERED NURSE FLOAT POOL stated that he had a fever of 101 ??F at home. Beyond this no other symptomatology. Since that the patient was started on broad-spectrum antibiotic therapy with vancomycin and Zosyn for suspected UTI? Also started on C. difficile prophylaxis. Patient consulted to provide further recommendations regarding management. Went to see the patient and he was oriented to person and place but appears to be somewhat confused. He seemed to have difficulty word finding and have persistence in the phrase my.. ummm . Unsure if this is the patient's baseline although per notes on admission yesterday seemed that the patient was already at baseline bythe time he was admitted. Past Medical and Surgical History: Patient with cervical spinal cord injury and subsequent paraplegia back in 2020. Due to spasticity the patient did undergo baclofen pump placement. Also noted with a chronic sacral decubitus ulcer with the previously identified infection with Klebsiella pneumoniae (ESBL) and Streptococcus group B which the patient did complete a 6-week course of ertapenem back in March 2024. Also related to his neurological injury he does have neurogenic bladder with suprapubic catheter in place having issues with recurrent UTIs. Also noted issues with kidney stones and chronic left-sided hydronephrosis requiring urological intervention back in December 2023, specifically left-sided uretero-nephroscopic stone laser lithotripsy, left ureteral dilatation, cystoscopy with left sided stent placement and dilatations of urethral strictures and bladder irrigation. Given evidence of joyce pus at the time the patient was managed with levofloxacin and fluconazole (culture showed evidence of Era). Patient also noted with previous issue of C. difficile diarrhea back in December 2023 requiring oral antibiotic therapy as well as subsequent prophylaxis every time that the patient received broad-spectrum antibiotic therapy. Further record review seems to indicate evidence of COPD as well as CAD and atrial fibrillation, not on anticoagulation due to issues with hematuria. Record review also seems to indicate previous concern for seizure-like activity but no definitive seizure identified Several other surgeries including carpal tunnel release bilaterally, left rotator cuff repair. Did have decompression of cervical spine during original injury in 2020 Recent Antimicrobials: -Presently on vancomycin and Zosyn -Presently on oral vancomycin for C. difficile prophylaxis Medications: Reviewed Antimicrobial Allergies: No known antimicrobial allergies. Family History: No notable recurrent or chronic infectious diseases Social History: Previous tobacco use but seems that has not smoked since his accident in 2020. No heavy alcohol or illicit drug use documented Review of Systems Denies any fever, chills, visual disturbance, oral problems, hearing issues, chest pain, palpitations, shortness of breath, nausea, vomiting, diarrhea, problems with urination, decreased sensation orstrength in any extremities, easy bruising or swollen lymph nodes, joint pains, muscle aches, or any changes in weight or sensation of temperature. Unsure of reliability since the patient appears to be somewhat confused Physical Examination (06821: 2-7 organ systems or comprehensive single system exam; 68904/88357: 8 organ systems or comprehensive single system exam) .VitalsTemperature 97.6 (08:37) Systolic Blood Pressure 127 (08:37) Diastolic Blood Pressure 53 (08:37) Pulse 63 (08:37) SpO2 100 (08:37) Respiratory Rate 20 (08:50) GENERAL: In no acute distress HEENT: Anicteric, no subconjunctival petechiae, moist oral mucosa without lesions or thrush NECK: Neck supple, without cervical lymphadenopathy CARDIOVASCULAR: Not able to appreciate any murmurs, rubs, or gallops RESPIRATORY: Somewhat diminished sounds over bases GASTROINTESTINAL: Non-distended, normoactive bowel sounds, non-tender GENITOURINARY: No CVAT, suprapubic catheter noted in place without any concerning findings MUSCULOSKELETAL: Without joint effusions, no tenderness over spine SKIN: No diffuse rash present, no stigmata of infective endocarditis, unable to roll the patient toexamine wound NEUROLOGICAL/PSYCH: Sleeping but arousable, oriented to person and place and partially to time, seems to have word persistence and difficulty time getting a full sentence out Results Review General results All Labs : LABORATORY 06/20/2024 4:47 EST WBC 6.2 k/mm3 RBC 3.13 m/mm3 L Hgb 8.4 Gm/dL L Hct 26.3 % L MCV 84.0 femtoliters MCH 26.8 pg L MCHC 31.9 Gm/dL L Platelet Count 273 k/mm3 Sodium 135 mmol/L Potassium 4.0 mmol/L Chloride 104 mmol/L Bicarbonate Level 19 mmol/L L Anion Gap 12 mmol/L Glucose Level 124 mg/dL H BUN 32 mg/dL H Creatinine-Blood 0.91 mg/dL 06/19/2024 22:12 EST WBC 5.7 k/mm3 Hgb 7.7 Gm/dL L 06/19/2024 8:25 EST WBC 6.8 k/mm3 Hgb 6.7 Gm/dL L 06/18/2024 2:35 EST Appear/Color, Urine YELLOW Specific Elcho, Urine 1.017 pH, Urine 6.0 Albumin, Urine 3+ Glucose, Urine NEGATIVE Ketones, Urine NEGATIVE Bilirubin, Urine NEGATIVE Hemoglobin, Urine 2+ Nitrite, Urine NEGATIVE Leukocyte, Urine 3+ Urobilinogen NORMAL mg/dL WBC's, Urine >182 /HPF RBC's, Urine 52 /HPF H Bacteria SLIGHT HPF Squamous Epith 6 /HPF Mucus SLIGHT /LPF WBC Clumps SLIGHT /HPF Budding Yeast MODERATE /HPF 06/17/2024 20:27 EST WBC 9.7 k/mm3 Hgb 8.9 Gm/dL L 06/17/2024 2:35 EST Influenza A PCR NEGATIVE Influenza B PCR NEGATIVE RSV PCR NEGATIVE COVID-19 PCR Specimen Source NASAL COVID-19 PCR Result NEGATIVE 06/08/2024 1:52 EST WBC 4.3 k/mm3 Hgb 8.0 Gm/dL L 06/07/2024 3:28 EST WBC 5.2 k/mm3 Hgb 7.8 Gm/dL L 06/06/2024 4:31 EST Hgb 8.6 Gm/dL L 06/05/2024 11:36 EST Hgb 8.1 Gm/dL L Result type: Chest 2 Views Frontal and Lat Result date: June 17, 2024 21:31 EST Result status: Auth (Verified) Result title: XR Chest 2 Views Frontal and Lat Performed by: Sheng Sarkar MD on June 17, 2024 21:38 EST Verified by: Sheng Sarkar MD on June 17, 2024 21:38 EST [place]: [id number][place] [facility] [place] - Reason For Exam Shortness of Breath RESULT: Chest 2 Views Frontal and Lat Chest 2 Views Frontal and Lat Hx of Present Illness: decrease PO for a few days, general malaise; Reason: Shortness of Breath; Clinical Question(s): Pneumonia COMPARISON: 06/04/2024 FINDINGS: LINES AND TUBES: None. LUNGS AND PLEURA: Clear lungs. Normal pulmonary vascularity. No pleural effusion. No pneumothorax. HEART, MEDIASTINUM AND AURELIO: Heart is normal in size. Normal mediastinal and hilar contour. BONES AND SOFT TISSUES: No acute abnormality. IMPRESSION: No acute abnormality. Microbiology: Culture/Event_id: Urine Culture/[id number] Collect date: 06/18/24 02:35 Result Status: Auth (Verified) Result Date: 06/19/24 18:06 Specimen: URINE > Hold Urine Culture: Testing available 48 hours from time of collection. > Budding Yeast: MODERATE > Squamous Epith: 6 > WBC Clumps: SLIGHT > Bacteria: SLIGHT > RBC's, Urine: 52 > Leukocyte, Urine: 3+ > Hemoglobin, Urine: 2+ > Albumin, Urine: 3+ > pH, Urine: 6.0 > Appear/Color, Urine: YELLOW > Mucus: SLIGHT > WBC's, Urine: >182 > Bilirubin, Urine: NEGATIVE > Urobilinogen: NORMAL > Ketones, Urine: NEGATIVE > Glucose, Urine: NEGATIVE > Nitrite, Urine: NEGATIVE > Specific Elcho, Urine: 1.017 > Urine Culture Results: Final report Testing performed at [facility], [facility] [address], [place] [address] Dir: Jayy Reza MD > Urine Culture Isolate 1: Mixed urogenital bruce 50,000-100,000 colony forming units per mL Testing performed at [place] [address], [place] [address] Dir: Jayy Reza MD Culture/Event_id: Blood Culture #[id number] Collect date: 06/17/24 21:33 Result Status: Auth (Verified) Result Date: 06/20/24 10:11 Specimen: BLOOD > Blood Cult 2 Results: Preliminary report Testing performed at [facility] [address], [place] [address] Dir: Jayy Reza MD > Blood Culture 2 Specimen Source: BLOOD RT. ARM > Blood Culture 2 Isolate 1: No growth in 48 hours. [facility] [place] [address] Dir: Jayy Reza MD Culture/Event_id: Blood Culture/[id number] Collect date: 06/17/24 20:40 Result Status: Auth (Verified) Result Date: 06/20/24 10:11 Specimen: BLOOD > Blood Culture Results: Preliminary report Testing performed at [facility], [address] [facility], [address], [place] [address] Dir: Jayy Reza MD > Blood Culture Specimen Source: BLOOD LH > Blood Culture Isolate 1: No growth in 48 hours. Testing performed at [facility], [address] [facility], [address], [place] [address] Dir: Jayy Reza MD Impression and Plan Impression: This is a 73-year-old man with above-mentioned problems and comorbidities. Patient being evaluated because of abnormal urinalysis. At this time, I am fully unsure if the patient truly has a UTI. There has been no fever reported, leukocytosis, left shifting, tachycardia, or tachypnea. Blood pressurehas been fairly stable all things considered and it seems that he runs somewhat soft over the past year or so. The urinalysis is not useful to identify the UTI in a patient with a suprapubic catheter, For a fact that the urinalysis cannot be a normal infection such as this. The urine culture only has 50,000-100,000 colony-forming units which is not a lot of most would consider a slam dunk for UTI. Does not seem that the patient necessarily has infection of the sacral wound. Although it was only able to see it peripherally since the patient could not turn on his own and I had no aid in the room, pictures from last night showed a fairly benign appearing wound. Some of the redness associated tothe wound itself might be related to the wound VAC itself and pressure they are off. At this time I will be more concerned about the patient's anemia. He did have what appears to be a significant drop in hemoglobin that required blood transfusion. This anemia on its own can certainlycause lethargy. Wonder if there might be some unidentified slow GI bleed or perhaps bleeding through the sacral wound, take into account he was not receiving the consistent care should have per notes. Will defer further evaluation of this to the primary team. In terms of what to do with the antibiotic therapy, unsure if the patient requires broad-spectrum antibiotic treatment. If there is no evidence of sacral wound infection, broad-spectrum therapy with vancomycin and Zosyn would seem excessive. If the primary team was concerned for potential UTI, which as noted above seems somewhat less likely with available information, could consider perhaps even oral therapy. Would not use doxycycline for this patient for 2 reasons: #1) penetration of tetracyclines into the urine is not ideal and typically reserved when we have no other options, and #2) previous MRSA's identified in the urine have been resistant to tetracycline, raising concern for heterogeneous MRSA population. Could entertain 3 days of Bactrim since we would be essentially treating a cystitis. Given how Bactrim hyper-concentrates in the urine, this would take care of not only the identified MRSA but other gram- negative's might still be in the urine. There might be some concern with the patient's renal function although it is noted to be normal at this time. Given short course, possible that this might be feasible to use. Alternatively, could consider something like fosfomycin that will have less of renal impact. Regardless, should bear in mind that the patient seems to be colonized with MRSA and there should be no expectation that this will completely go away/clear with antibiotic therapy particular in patients that have chronic catheters. Again would argue in favor of monitoring perhaps off antibiotic therapy while evaluating potential source of anemia. Would however suggest that the patient remain on prophylactic oral vancomycin for C. difficile and should continue for at least 5 to 7 days after finishing broad-spectrum antibiotic therapy Recommendations: -Unclear that the patient has a UTI -Highly suggest evaluation for source of anemia, which likely caused the patient's lethargy -Your primary team highly interested in ongoing treatment for UTI, currently taking Bactrim for 3 days take into account potential renal implications; alternatively could entertain fosfomycin -Please continue C. difficile prophylaxis with oral vancomycin for at least 5 to 7 days after finishing broad-spectrum antibiotic therapy Thank you for the consultation. Infectious Diseases will sign-off, please call with any questions or concerns. Disclaimer: This dictation was accomplished with use of [employer] voice recognition software, prone tomedical word misidentifications and grammatical errors. The physician does strive to identify and correct these, but some could still be present. Please do not hesitate to contact physician for clarifications. 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) Description: full thickness skin loss; wound bed with pale pink tissue; moist Measurements: 2cm x 2cm x 1.5cm with undermining from 1-5 o'clock with a max depth of 2cm Drainage: moderate amount of thin yellow opaque drainage Odor: none Edges: epibole; regular; defined; unattached 1-5 o'clock, otherwise attached Periwound: maroon, nonblanchable discoloration noted at the 2, 4 and 8 o'clock locations; otherwise, red, blanchable denuded skin with scattered areas of partial thickness skin loss and desquamation Pain: insensate from the neck down Goal of treatment: antimicrobial; management of drainage; protect from moisture and friction; offload pressure . sacrococcygeal 06/07/24 sacral wound and periwound 06/19/24 Received wound RN consult to assess chronic sacral decubitus wound and provide appropriate topical wound care recommendations. [place] [facility] [place] to increased [place]argy, and sacralwound not being care for as [facility] stopped coming to change it. He has a PMH significant for tetraplegia due to cervical spine injury, baclofen pump and suprapubic catheter for neurogenic bladder and chronic sacral wound. Upon entry into patient's room, he is found lying in bed, alert and oriented x 3. Staff (Romi) from care agency present and is on the phone with patient's . Role of wound RN is explained and they are amenable to continuing with consult and photodocumentation. Of note, direct care RN present aswellEmma Llanos tells me that patient follows with [facility] in [place]. They manage his wound vac and was seen last on 06/12/24. On Mondays and Fridays, the [facility]NA comes and changes the wound vac. Lastseen on 06/14/24. She confirms that the existing wound vac sponge has been in place since that date. Romi and both state that they do not want the wound vac reapplied. They state that due to the location, it is very difficult to maintain a proper seal, despite the track pad being bridged to thefront on the patient. Every time that boost him in bed, or he slides down, the drape of the wound vac rolls up and the seal is compromised. The drainage then gets all over the skin around his wound and starts breaking it down. It was healing better when he had the Aquacel and the Triad. Can we just do that? . I explained that I would need to assess the wound in order to make any topical recommendation alternatives. They verbalized understanding. With the assistance of the direct care RN and Romi, patient is rolled onto his left side. They wound vac sponge is in the wound bed, however, the drape is rolled up to the inferior aspect. The [facility] wound vac is alarming that there is a leak. The vac is shut off, and the black sponge is removed easily from the wound bed. The bridge and drape extending from the sacral wound to the right abdomen is removed as well. The wound is cleansed and described above. As the wound bed is clean, draining a moderate amount of drainage and there is periwound denudement, I wound recommend restarting Aquacel Agto the wound bed and Triad to the periwound and then covering with a Mepilex foam dressing. The packing and Triad can be left in place for up to 3 days. If the Mepilex dressing gets soiled/saturated in between dressing changes, only that can be changed. All verbalized understanding and are in agreement with the plan of care. On my way out of the room, Romi asked to speak to me in the hallway. She reported that she is employed by [employer] (contracted by [employer]) to care for the patient. She states the has driven away every single one of the nurses. The last nurse on Monday refuses to come back. She has exhausted all of our nursing resources. refuses to learn/perform the wound care herself . In addition, Romi is asking what to do if the wound clinic is insistent on reapplying the wound vac, despite she and the telling them it doesn't work for Adrian. I explained [facility] and gave her the names of several other wound clinics in the area. I told Romi that I would give this information to the continuous pillowcase cutter who can hopefully assist with other resources available. Romi thanked me for my time. I spoke with continuous pillowcase cutter, Darshana Marin, in person and explained above to her and she thanks me forthe information and update. [place] text sent to Dr Vital as well. Recommendations: 1. sacral wound- Gently place VASHE solution moistened gauze into wound bed and allow to soak for 5minutes then remove. Ensure to irrigate cavernous undermining areas. Cleanse the periwound with VASHE solution. Allow to dry. Apply Triad to periwound ensure to apply to affected skin loss. Cut Aquacel ag in a spiral shape creating one long piece. Pack wound loosely with Aquacel ag, leaving a wick to allow for easy removal. Cover with a Mepilex foam dressing. Change every other day and as needed for soiling/saturation. 2. Continue use of low air loss mattress 3. Continue to turn and reposition every 2 hours and as needed 4. Continue to provide incontinence care and moisture management as needed 5. Continue to offload all bony prominences 6. Continue to float heels off of all surfaces 7. Continue to provide optimal nutritional support 8. Gaymar cushion to seat when/if OOB to chair Please reconsult wound RN for deterioration in wound/skin status. Plan Recommendations Nutrition Plan Consult Director Sales Maximize nutritional support Mobility Eliminate heel pressure Turn & reposition every 2-4 hours Low air loss bed in pressure relief settings Gaymar soft chair cushion Moisture Management Incontinence care Friction/Sheer Interventions Minimize sheer forces by lifting Utilize draw sheet or transfer board Patient Teaching Discussed plan of care with patient Discussed plan of care with RN Time spent 46-60 minutes History and physical note * Je CAMACHO, Sathya Estrada: PERFORM Event Display: History and Physical Hospital Authored Date: Patient: ??ADRIAN TORREZ ? Age:??73 Years?Sex:??Male?:??1950?? 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 difficile??diarrhea 12/2023,??atrial fibrillation (not on anticoagulation due to hematuria), coronary artery disease,??COPD,??seizure-like activity,??and recent hospitalization??06/04/2024 to 06/08/2024??for sepsis secondary to??MRSA UTI (completed a course of doxycycline??and prophylactic??oral vancomycin).?The patient has recently had a wound VAC in place for his chronic sacral decubitus ulcer,??but his states??he only gets wound care once weekly??at the clinic.?? They have been frustrated as they do??not feel the wound VAC is??operating correctly at home, and??there is no VNA nursingto address it.?? He does have REGISTERED NURSE FLOAT POOL service??at home,??but they do not??address the wound VAC.?? The p katie was brought to the hospital today??due to worsening lethargy over the past few days,??and his REGISTERED NURSE FLOAT POOL states fever 101 at home.?? He complains of chronic pain.?? No reported upper respiratory congestion, coughing,??or shortness of breath.?? No chest pain.?? No vomiting, abdominal pain,??or diarrhea.?? Of note, his suprapubic catheter was just changed yesterday per urology. ?? In the emergency room, the patient has remained afebrile.?? Blood pressure has been soft down to93/46, but stable with IV fluid hydration (he received 1 L NS IV bolus).?? He has had no respiratory distress or hypoxia.?? His mentation appears at baseline per his .?? The wound was examined bythe ER clinician,??with no reported drainage.?Urine sample showed significant pyuria with slightbacteria, and the patient was started on empiric IV Zosyn and vancomycin.?? Laboratory workup was unremarkable with stable chronic anemia, and minimally elevated BUN 43/creatinine 1.03 compared to previous baseline.?? LFTs were unremarkable.?? Lactate was 0.9.?? Respiratory viral PCR was negative.?? Chest x-ray was unremarkable. Review of Systems Other than those positives as noted in the HPI above, all other systems were reviewed and are negative. Objective ? Vital Signs?? Temperature: 99.2 DegF (06/18/24 15:36:00) Temperature Route: Oral (06/18/24 15:36:00) Pulse Rate: 66 bpm (06/18/24 15:36:00) Respiratory Rate: 18 br/min (06/18/24 15:46:00) Systolic Blood Pressure: 100 mm Hg (06/18/24 15:36:00) Diastolic Blood Pressure:??49 mm Hg??Low (06/18/24 15:36:00) Blood pressure sites: Arm, left (06/18/24 15:36:00) Mean Arterial Pressure: 67 mm Hg (06/18/24 01:52:00) Pulse Pressure: 55 mm Hg (06/18/24 08:01:00) Oxygen Saturation: 98 % (06/18/24 15:36:00) Mode of Delivery (Oxygen): Room air (06/18/24 15:36:00) Early Warning Score: 2 (06/18/24 15:54:25) ? Pain Scores?? No qualifying data available. ? Physical Exam General Appearance: Alert, no distress, answers questions appropriately HEENT: Normocephalic, atraumatic, PERRL, EOMI, no nystagmus, no scleral icterus, no facial droop, moist mucous membranes, no oropharynx lesions?? Neck: Supple, no JVD, no LAD Cardiac: RRR, S1 & S2 present, no m / r / g appreciated Chest: Clear to auscultation bilaterally, no wheezing / ronchi / rales, no tenderness to percussion Abdomen: Soft, nontender, no distention, no rebound or guarding, suprapubic??catheter in place, normal bowel sounds in all quadrants Back: Unable to examine sacral wound as patient is in the hallway of the ER, no room currently available due to capacity issues Extremities: No clubbing, cyanosis, or edema. ??2+ distal pulses. 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 difficile??diarrhea 12/2023,??atrial fibrillation (not on anticoagulation due to hematuria), coronary artery disease,??COPD,??seizure-like activity,??and recent hospitalization??06/04/2024 to 06/08/2024??for sepsis secondary to??MRSA UTI (completed a course of doxycycline??and prophylactic??oral vancomycin).?The patient has recently had a wound VAC in place for his chronic sacral decubitus ulcer,??but his states??he only gets wound care once weekly??at the clinic.?The patient was brought to the hospital today??due to worsening lethargy over the past few days,??and his REGISTERED NURSE FLOAT POOL states fever 101 at home.??Of note, his suprapubic catheter was just changed yesterday per urology.?Per the ER clinician, his sacral wound did not have increased drainage.??Laboratory workup shows pyuria.??Admission requested for ongoing management. ?? Fever (R50.9) Complicated UTI (urinary tract infection) (N39.0) Suprapubic catheter (Z93.59) Dehydration (E86.0):??The patient's reports that his mentation is currently at baseline.??No respiratory distress or hypoxia.??No significant lower abdominal pain.??No criteria for sepsis other than reported fever at home.??Recurrent UTI is suspected.??Suprapubic catheter was changed yesterdayat the urology clinic. -Continue broad-spectrum IV antibiotic coverage with??Zosyn??3.375 g IV every 8 hours and vancomycin 15 mg/kg per creatinine clearance -Continue gentle IV fluid hydration with NS at 75 cc/h,??and midodrine??as needed, with close hemodynamic monitoring -Follow-up urine culture??and blood cultures -Add oral vancomycin 125 mg twice daily??as C. difficile prophylaxis while using broad-spectrum IV antibiotics as above -Follow-up CBC with differential and comprehensive metabolic panel -Consider repeat??CT??of the abdomen/pelvis??if any clinical deterioration or worsening pain -Consider ID consultation based on above??findings ?? Anemia (D64.9):??Hemoglobin at baseline. No evidence for??active bleeding at this time. Continue to monitor CBC. Resume iron supplementation once infection treated. ?? Atrial fibrillation (I48.91):??Currently the patient is in a normal sinus rhythm. Continue amiodarone as prescribed. He is not on??anticoagulation due to recurrent hematuria. ?? Quadriplegia (G82.50) Sacral decubitus ulcer, stage IV (L89.154):??Per previous documentation, the patient has had ongoing issues with his sacral wound.??He has a wound VAC, and family has been frustrated as it is only evaluated once weekly at the clinic.??The wound is managed by [facility] in [place].?Home VNA has not??been managing??the wound VAC, per??the patient's .??No active drainage today per ER clinician assessment. -We will continue wound care instructions as per previous wound care consultation 06/07/2024. -Consult chief digital media officer here in the hospital??for updated recommendations and wound VAC??evaluation. -Continue use of specialty bed/low air loss mattress -Turn and reposition every 2 hours and PRN. Encourage utilization of foam wedges unless contraindicated.?? -Continue incontinence care as well as moisture management; do not utilize Mepilex foam dressing with incontinence.?? -Continue to offload bony prominences.?? -Continue to provide optimal nutritional support. -Provide Gaymar cushion to chair when patient OOB. -The patient does have intrathecal baclofen pump,??with refill due??in August. -Continue oral baclofen 15 mg 3 times daily. -Continue diazepam as needed for spasm or pain. -Continue bowel regimen. -Case management consultation to evaluate discharge disposition. ?? Seizure-like activity (R56.9):??No current seizure activity. Continue levetiracetam as prescribed. ?? GERD (gastroesophageal reflux disease) (K21.9):??Continue PPI as prescribed. ?? VTE Prophylaxis:??Lovenox 40 mg subcutaneously daily. ?VTE Prophylaxis Assessment:??VTE Prophylaxis Ordered ?? Discharge Planning:??Disposition pending. Anticipate 2 to 4 days hospitalization. ?? Code Status:??FULL. ?Order Code Status:??Code Status Ordered ?? I spent a total of??85 minutes today reviewing the chart / medical records, evaluating the patient,evaluating and interpreting laboratory and imaging data, formulating and discussing the treatment plan, and documenting the encounter. ? Histories Allergies Allergies ?(Active and Proposed Allergies Only) NKA? (Severity: Unknown severity, Onset: Unknown) ? Past Medical History/Problem List Active Problems(17) Anemia Atrial fibrillation CAD in [place] artery Constipation COPD (chronic obstructive pulmonary disease) Elevated troponin GERD (gastroesophageal reflux disease) Hematuria Lower extremity edema Neurogenic bladder Presence of intrathecal baclofen pump Quadriplegia Sacral decubitus ulcer, stage IV Seizure-like activity Spinal cord injury, cervical region Suprapubic catheter Weakness ? Past Surgical History Carpal tunnel release-b/l Rotator cuff repair-L Baclofen pump implant Inguinal herniorrhaphy Decompression of cervical spine Suprapubic catheter ? Social History Alcohol Details:??Use: Past. ??Type: Liquor. ??Other: last alcoholic beverage was 2020. Employment/School Details:??Status: Retired. Home/Environment Details:??Living situation: Home with assistance. ??Lives with: Spouse. ??Other: has 28/11 home health staff. Substance Abuse Details:??Use: Never. Tobacco Details:??Use: Former smoker,??Other: quit smoking 2020. ??Type: Cigarettes. Electronic Cigarette/Vaping Details:??Electronic Cigarette Use: Never. ? Family History Mother: Diabetes mellitus Father: Diabetes mellitus Brother: Diabetes mellitus ? Medications Home Medications Acetaminophen (Tylenol 325 mg oral tablet)??650 Milligram 2 tablet By Mouth Every 6 hours as neededas needed for mild pain or fever amiODARONE (amiodarone 200 mg oral tablet)??100 Milligram 0.5 tablet By Mouth 2 times a day for 30 Days Ascorbic Acid (ascorbic acid 500 mg oral tablet)??1 tab(s) 500 Milligram By Mouth 2 times a day Baclofen (baclofen 10 mg oral tablet)??15 Milligram 1.5 tablet By Mouth 3 times a day for 30 Days Bisacodyl (bisacodyl 10 mg rectal suppository)??UNWRAP AND INSERT 1 SUPPOSITORY RECTALLY DAILY AFTER DINNER Diazepam (diazepam 2 mg oral tablet)??2 Milligram 1 tablet By Mouth 2 times a day as needed Pain , Mild Docusate (docusate sodium 100 mg oral capsule)??1 capsule 100 Milligram By Mouth Daily at bedtime Durable Medical Equipment (doughnut pillow)??See Instructions Use while sitting down to prevent pressure in the sacral wound Durable Medical Equipment (Wet to Dry Dressing Changes Daily)??See Instructions Lightly moisten Kerlix in normal saline and apply to wound packing daily for managment of sacral decubitius ulcer (L89.159) Cover wound with Mepilex Ferrous Sulfate (ferrous sulfate 324 mg (65 mg elemental iron) oral delayed release tablet)??1 tab(s) 324 Milligram By Mouth Daily levETIRAcetam (levETIRAcetam 100 mg/mL oral solution)??5 Milliliter 500 Milligram By Mouth 2 times a day Melatonin (melatonin 10 mg oral tablet)??1 tab(s) 10 Milligram By Mouth Daily at bedtime Methenamine (methenamine hippurate 1 gm oral tablet)??TAKE ONE TABLET BY MOUTH TWICE A DAY WITH VITAMIN C Midodrine (midodrine 5 mg oral tablet)??See Instructions as needed 2 tablet PRN sys BP <90 BloodPressure Miscellaneous Rx (CBC w/ Diff, CMP, ESR and CRP)??See Instructions Please obtain weekly while on antibiotics on Monday and fax results to [facility] [place] [phone] and PCP Miscellaneous Rx (Home health aid)??See Instructions 28/11 home health aid and an overlap of 4 hoursfor the morning routine with nursing 1 per week for bowel and bladder oversight and medication management.Dx: Tetraplegia Miscellaneous Rx (MELATONIN TR 10 MG Tablet Extended Release)??TAKE ONE TABLET BY MOUTH AT BEDTIME Miscellaneous Rx (Nursing: Increase baclofen to 15 mg )??See Instructions Dx: Spasticity Miscellaneous Rx (Please provide 28/11 REGISTERED NURSE FLOAT POOL care and weekly VNA visits for medication management.)??See Instructions Dx: Tetraplegia Multivitamin With Minerals??1 tab(s) By Mouth Daily Nystatin Topical (nystatin topical 870847 u/gm powder)??APPLY TOPICALLY TO THE AFFECTED AREA TWICE A DAY Pantoprazole (pantoprazole 40 mg oral delayed release tablet)??1 tab(s) 40 Milligram By Mouth 2 times a day Senna (Senna-Time 8.6 mg oral tablet)??TAKE ONE TABLET BY MOUTH TWICE A DAY NEEDED Sodium Hypochlorite Topical (Dakins Quarter Strength 0.125% topical solution)??APPLY A DAKINS SOAKED GAUZE TO WOUND FOR 5 MINUTES EVERY OTHER DAY ? Results Recent Labs BACTERIOLOGY Blood Culture Results Preliminary report ()?? 06/17/2024 20:40 Blood Culture Isolate 1 Comment ()?? 06/17/2024 20:40 Blood Cult 2 Results Preliminary report ()?? 06/17/2024 21:33 Blood Culture 2 Isolate 1 Comment ()?? 06/17/2024 21:33 ?? BLOOD COUNT & DIFF WBC 9.7 k/mm3 ()?? 06/17/2024 20:27 RBC 3.40 m/mm3 (Low)?? 06/17/2024 20:27 Hgb 8.9 Gm/dL (Low)?? 06/17/2024 20:27 Hct 28.9 % (Low)?? 06/17/2024 20:27 MCV 85.0 femtoliters ()?? 06/17/2024 20:27 MCH 26.2 pg (Low)?? 06/17/2024 20:27 MCHC 30.8 Gm/dL (Low)?? 06/17/2024 20:27 Platelet Count 251 k/mm3 ()?? 06/17/2024 20:27 RDW-SD 51.5 femtoliters (High)?? 06/17/2024 20:27 MPV 10.9 femtoliters ()?? 06/17/2024 20:27 Nucleated RBC (Automated) 0.0 #/100 WBC'S ()?? 06/17/2024 20:27 Abs. NRBC 0.0 k/mm3 ()?? 06/17/2024 20:27 Abs. Neut 7.8 k/mm3 (High)?? 06/17/2024 20:27 Abs. Lymph 0.9 k/mm3 ()?? 06/17/2024 20:27 Abs. [place] 0.7 k/mm3 ()?? 06/17/2024 20:27 Abs. Eo 0.2 k/mm3 ()?? 06/17/2024 20:27 Abs. Baso 0.0 k/mm3 ()?? 06/17/2024 20:27 Neut % 81.2 % (High)?? 06/17/2024 20:27 Lymph % 9.6 % (Low)?? 06/17/2024 20:27 Laurel % 6.8 % ()?? 06/17/2024 20:27 Eos % 1.6 % ()?? 06/17/2024 20:27 Baso % 0.4 % ()?? 06/17/2024 20:27 Imm Gran 0.4 % ()?? 06/17/2024 20:27 Abs. Imm Gran 0.0 k/mm3 ()?? 06/17/2024 20:27 ?? CHEM GENERAL Sodium 134 mmol/L ()?? 06/17/2024 20:27 Potassium 4.7 mmol/L ()?? 06/17/2024 20:27 Chloride 98 mmol/L ()?? 06/17/2024 20:27 Bicarbonate Level 21 mmol/L (Low)?? 06/17/2024 20:27 Anion Gap 15 mmol/L ()?? 06/17/2024 20:27 Glucose Level 102 mg/dL (High)?? 06/17/2024 20:27 BUN 43 mg/dL (High)?? 06/17/2024 20:27 Creatinine-Blood 1.03 mg/dL ()?? 06/17/2024 20:27 Estimated GFR Creatinine 78 ML/MIN/1.73 M2 ()?? 06/17/2024 20:27 Calcium 8.9 mg/dL ()?? 06/17/2024 20:27 Protein, Total 7.3 Gm/dL ()?? 06/17/2024 20:27 Albumin 3.0 Gm/dL (Low)?? 06/17/2024 20:27 AG Ratio 0.7 ()?? 06/17/2024 20:27 Alkaline Phosphatase 64 units/L ()?? 06/17/2024 20:27 Lipase, Serum/Plasma 12 units/L (Low)?? 06/17/2024 20:27 AST (SGOT) 19 units/L ()?? 06/17/2024 20:27 ALT (SGPT) 12 units/L ()?? 06/17/2024 20:27 Bilirubin, Total 0.2 mg/dL ()?? 06/17/2024 20:27 Lactate 0.9 mmol/L ()?? 06/17/2024 20:27 ?? UA/URINALYSIS Appear/Color, Urine YELLOW ()?? 06/18/2024 02:35 Specific [place], Urine 1.017 ()?? 06/18/2024 02:35 pH, Urine 6.0 ()?? 06/18/2024 02:35 Albumin, Urine 3+ (Abnormal)?? 06/18/2024 02:35 Glucose, Urine NEGATIVE ()?? 06/18/2024 02:35 Ketones, Urine NEGATIVE ()?? 06/18/2024 02:35 Bilirubin, Urine NEGATIVE ()?? 06/18/2024 02:35 Hemoglobin, Urine 2+ (Abnormal)?? 06/18/2024 02:35 Nitrite, Urine NEGATIVE ()?? 06/18/2024 02:35 Leukocyte, Urine 3+ (Abnormal)?? 06/18/2024 02:35 Urobilinogen NORMAL mg/dL ()?? 06/18/2024 02:35 WBC's, Urine >182 /HPF (High)?? 06/18/2024 02:35 RBC's, Urine 52 /HPF (High)?? 06/18/2024 02:35 Bacteria SLIGHT HPF (Abnormal)?? 06/18/2024 02:35 Squamous Epith 6 /HPF ()?? 06/18/2024 02:35 Mucus SLIGHT /LPF ()?? 06/18/2024 02:35 WBC Clumps SLIGHT /HPF ()?? 06/18/2024 02:35 Budding Yeast MODERATE /HPF ()?? 06/18/2024 02:35 Hold Urine Culture Testing available 48 hours from time of collection. ()?? 06/18/2024 02:35 ?? VIROLOGY Influenza A PCR NEGATIVE ()?? 06/17/2024 02:35 Influenza B PCR NEGATIVE ()?? 06/17/2024 02:35 RSV PCR NEGATIVE ()?? 06/17/2024 02:35 COVID-19 PCR Specimen Source NASAL ()?? 06/17/2024 02:35 COVID-19 PCR Result NEGATIVE ()?? 06/17/2024 02:35 ? Image ?XR Chest 2 Views Frontal and Lat??06/17/2024 21:31 by Rosalba Keith ?IMPRESSION: No acute abnormality. ?? EKG study * Event Display: EKG Authored Date: * Event Display: ECG 12-Lead Authored Date: Please click on pdf link to open report * Event Display: ECG 12-Lead Authored Date: [id number] Ventricular Rate: 59 BPM Atrial Rate: 59 BPM P-R Interval: 162 ms QRS Duration: 94 ms Q-T Interval: 446 ms QTC Calculation(Bazett): 441 ms P [place]: 56 degrees R [place]: 19 degrees T [place]: 48 degrees Sinus bradycardia Otherwise normal ECG When compared with ECG of 04-Jun-2024 15:31, No significant change was found Confirmed by Srini Novak ([id number]) on 06/28/2024 1:38:26 PM [place]: Srini Novak [facility] Progress note * Mary Temple RN: PERFORM, SIGN, VERIFY Event Display: Progress Note [facility] Authored Date: [id number] Patient: ADRIAN TORREZ Age: 73 years Sex: Male : 1950 Associated Diagnoses: None Author: Mary Temple RN Findings Problem Related to Alteration in Genitourinary : Alteration in Genitourinary Function/new 07/01/2024 15:00 EST Alteration in Status Related to UTI Goals & Outcomes, Genitourinary Pt will achieve normal/improved fluid balance, Pt will maintain adequate GI function appropriate for pt, Pt will maintain adequate function appropriate for pt,Pt will maintain normal fluid balance, Pt will resume normal pattern of elimination, Pt/caregiver will state understanding of self-care skills Interventions, Assess/monitor/maintain Genitourinary status BH Goals/Interventions, Genitourinary Yes Genitourinary, Problem Start 06/20/2024 23:52 Reviewed Plan with, Genitourinary Patient Patient Progression, Genitourinary Patient progressing according to plan Genitourinary, Problem Ongoing Yes . Alteration in Integumentary : Alteration in Integumentary/new 07/01/2024 15:00 EST Alteration in Integumentary Related to Pressure Goals & Outcomes, Integumentary Nutritional intake is adequate for metabolic needs Interventions, Integumentary Cleanse all wounds with Normal Saline, Consult Wound Care as needed for further interventions, Encourage & assist with range of motion exercises, Encourage family participation in pt's care as they are able, Ensure relief modes are on mattress surface & utilized, Keep bed as flat as tolerated to reduce shearing, Keep linen clean, dry and wrinkle free, Keep skin clean & dry, Maintain sterile technique with dressing changes, Minimize friction, shear and moisture, Monitor reddened areas for continued or increasing reddness, Record extent of impaired skin integrity, Relieve pressure off bony areas, Reposition pt off reddened areas, Teach Pt/caregiver s/sof infection, Teach Pt/S.O. risks of & measures to prevent skin breakdown, Use barrier cream/ointment if pt's skin is frequently moist, Use heel & elbow protectors to relieve friction, Use pHbalanced no rinse cleanser if incontinent, Use pressure dispersing devices as appropriate BH Goals/Interventions, Integumentary Yes Integumentary, Problem Start 07/01/2024 15:19 Reviewed plan with, Integumentary Patient Patient Progression, Integumentary Pt progressing according to plan . Nursing Data Vital Signs : VITAL SIGNS SECTION 07/01/2024 7:28 EST Temperature 98.1 DegF Temperature Route Oral Pulse Rate 49 bpm L Respiratory Rate 16 br/min Systolic Blood Pressure 92 mm Hg Diastolic Blood Pressure 45 mm Hg L Blood pressure sites Arm, left Mean Arterial Pressure 61 mm Hg Pulse Pressure 47 mm Hg Oxygen Saturation 100 % Mode of Delivery (Oxygen) Room air . Narrative/Incidental Pt is A+O x3. Quadriplegic, Frequent repositioning provided throughout shift by staff and caregivers. Lungs dim on RA. Suprapubic patent voiding concentrated yellow urine with CDI incision site. IV D/C, tip intact. D/C education provided to caregiver. bed is locked and in lowest position with bed alarm engaged and bed alarm engaged. . Discharge Information Case Management Discharge Plan : Case Management Discharge Plan Data 07/01/2024 14:54 EST Discharge Level of Care at Discharge Homehealth/VNA Discharge VNA/Hospice/Home Care [facility] Discharge Transportation Arranged [facility] [address] [place] [phone] Discharge Arranged Transport Date/Time 07/01/2024 17:30 Mode of Transportation Arranged Ambulance Name of Agency #1 [facility] Service Categories #1 Occupational Therapy, Physical Therapy, Penitentiary Service Comments #1 Patient discharging home with [facility] for senior living, PT and OT. The agency is aware and will be in contact with you in 1-2 days. If you do not hear from them, please contact the agency directly. Pulmonary Rehab Discharge : Pulmonary Rehab Discharge Status 06/30/2024 23:08 EST CPAP/BiPAP Mask Type Pillows CPAP/BiPAP Mask Size Medium 06/30/2024 4:25 EST CPAP/BiPAP Mask Type Pillows CPAP/BiPAP Mask Size Medium 06/30/2024 0:16 EST CPAP/BiPAP Mask Type Pillows CPAP/BiPAP Mask Size Medium 06/29/2024 2:52 EST CPAP/BiPAP Mask Type Pillows CPAP/BiPAP Mask Size Medium 06/28/2024 22:00 EST CPAP/BiPAP Mask Type Pillows CPAP/BiPAP Mask Size Medium 06/27/2024 22:26 EST CPAP/BiPAP Mask Type Pillows CPAP/BiPAP Mask Size Medium 06/26/2024 22:08 EST CPAP/BiPAP Mask Type Pillows CPAP/BiPAP Mask Size Medium * Julius Conner MD, I: PERFORM, SIGN, VERIFY Event Display: Progress Note Hospital Authored Date: Patient: ADRIAN TORREZ Age: 73 years Sex: Male : 1950 Associated Diagnoses: None Author: Julius Conner MD, I stable from enal perspective, BP is soft Review of Systems Review of Systems Constitutional: no fever. Gastrointestinal: no vomiting, no diarrhea. Physical Examination Vitals Vitals : VITAL SIGNS SECTION 06/30/2024 7:59 EST Temperature 98.3 DegF Temperature Route Oral Pulse Rate 56 bpm Respiratory Rate 20 br/min Systolic Blood Pressure 100 mm Hg Diastolic Blood Pressure 54 mm Hg L Blood pressure sites Arm, left Oxygen Saturation 98 % Mode of Delivery (Oxygen) Room air . General Appearance No apparent distress. Respiratory Lungs: no rales, no rhonchi. Cardiac No pericardial rub. Results Review General results Most recent results All : ALL RESULT SECTIONS 06/30/2024 0:25 EST Sodium 132 mmol/L L 06/29/2024 7:13 EST Sodium 125 mmol/L L 06/29/2024 0:33 EST Sodium 126 mmol/L L Sodium 126 mmol/L L 06/28/2024 17:59 EST Sodium 125 mmol/L L 06/28/2024 15:28 EST Sodium 124 mmol/L L 06/28/2024 5:54 EST Sodium 124 mmol/L L Sodium 124 mmol/L L 06/27/2024 21:01 EST Sodium 120 mmol/L L 06/27/2024 13:29 EST Sodium 125 mmol/L L 06/27/2024 9:35 EST Sodium 125 mmol/L L 06/27/2024 6:40 EST Sodium 126 mmol/L L 06/26/2024 16:48 EST Sodium 126 mmol/L L 06/26/2024 10:27 EST Sodium 125 mmol/L L 06/26/2024 0:35 EST Sodium 122 mmol/L L 06/25/2024 10:56 EST Sodium 128 mmol/L L 06/25/2024 6:10 EST Sodium 126 mmol/L L 06/23/2024 7:56 EST Sodium 133 mmol/L Impression and Plan 73-year-old gentleman with a history of quadriplegia complicated by neurogenic bladder with multiple UTIs, nephrolithiasis and chronic left-sided hydronephrosis and sacral decubitus ulcer, coronary disease, COPD, and atrial fibrillation who we are following for hypoosmolar hyponatremia likely related to a combination of low osmole intake and perfusion dependent as well as perfusion independent ADH secretion. I doubt reset osmostat. Excess free water intake seems less likely. - ok to stop urea pwoder - continue salt tablets - dose of salt tablets can be increased if needed - encouarge po - will arrange follow up * Ashley James RN: PERFORM, SIGN, VERIFY Event Display: Progress Note Hospital Authored Date: Patient: ADRIAN TORREZ Age: 73 years Sex: Male : 1950 Associated Diagnoses: None Author: Ashley James RN Findings Nursing Data Cardiac Data. : Cardiac Data. 06/30/2024 21:00 EST Nail Bed Color, Fingers [place] Nail Bed Color, Toes [place] Skin Temperature Upper Extremities Warm Skin Temperature Lower Extremities Warm Dorsalis Pedis Pulse, Left Normal Dorsalis Pedis Pulse, Right Normal Homans' Sign Negative (Normal) Edema None production sorter No Cardiovascular WNL except . Gastrointestinal Data. : Gastrointestinal Data. 06/30/2024 21:00 EST Gastrointestinal Symptoms Incontinence, stool Abdomen Non-tender, Semi-firm Bowel Sounds LUQ Present Bowel Sounds RUQ Present Bowel Sounds LLQ Present Bowel Sounds RLQ Present Last Bowel Movement 06/30/2024 GI WNL except . Genitourinary Data. : Genitourinary Data. 06/30/2024 21:00 EST Urinary catheter type Suprapubic Catheter Urine Color Yellow Urine Description Clear WNL except . Integumentary Data. : Integumentary Data. 06/30/2024 21:00 EST Sensory Perception No impairment Activity Bedfast Mobility Very limited . Musculoskeletal Data. : Musculoskeletal Data. 06/30/2024 21:00 EST Musculoskeletal Symptoms Weakness Musculoskeletal Abnormality Contracture Musculoskeletal WNL except . Neurological Data. : Neurological Data. 06/30/2024 21:00 EST Tongue Disposition Midline Neurological Symptoms Weakness or loss of muscle strength Level of Consciousness Full Consciousness Orientated to person, place, time Person, Place, Time Facial Symmetry Intact Characteristics of Speech Clear and normal Swallowing Difficulty None Tone LUE Unable to test Tone RUE Unable to test Tone LLE Unable to test Tone RLE Unable to test Sensation LLE Diminished Sensation RLE Diminished Gait Unable to assess Response Eye Opening Spontaneously Motor Response-Adult Obeys commands Verbal Response-Adult Oriented and converses [place] Coma Score 15 Neuro WNL except Memory Intact Swallow - Neuro Normal . Respiratory/Pulmonary Data. : Respiratory/Pulmonary Data. 06/30/2024 21:00 EST Chest expansion Symmetrical Cough Productive, Occasional Left Upper Lobe Breath Sounds Clear Right Upper Lobe Breath Sounds Clear Right Middle Lobe Breath Sounds Clear Left Lower Lobe Breath Sounds Diminished Right Lower Lobe Breath Sounds Diminished Respiratory Treatment(s) Cough and deep breathe, Suctioned Respiratory WNL except . Vital Signs : VITAL SIGNS SECTION 06/30/2024 20:00 EST Early Warning Score 5.00 06/30/2024 20:00 EST Temperature 97.5 DegF Temperature Route Oral Pulse Rate 49 bpm L Respiratory Rate 18 br/min Systolic Blood Pressure 95 mm Hg Diastolic Blood Pressure 47 mm Hg L Blood pressure sites Arm, right Pulse Pressure 48 mm Hg Oxygen Saturation 99 % Mode of Delivery (Oxygen) Room air . Narrative/Incidental Pt. is a/o/3, vs--see cis, taking meds as ordered. LS dim. at bases, occ. prod. cough, using cpap at hs. Suprapubic cath in place yellow urine/sediment. Bilat. lower ext. no edema/pp palp. Pt. t/r q 2 hrs, pillows under bony prominences, falls risk protacol in place. See biophysical for add. details. . Note * Luiz CAMACHO, Susy: MODIFY Jorge Alberto CAMACHO, Kristofer: PERFORM, MODIFY Jorge Alberto CAMACHO, Kristofer: MODIFY Event Display: Discharge/Transfer Note Hospital Authored Date: [id number] Patient: ??ADRIAN TORREZ ? Age:??73 Years?Sex:??Male?:??1950?? Patient Information Discharge Location: A Primary Care Physician: Aba Linares DO Admit Date/Time: 06/18/2024 07:38 Discharge Disposition Discharge Disposition: Home with Home Health Discharge Diagnosis Fever (R50.9) Complicated UTI (urinary tract infection) (N39.0) Suprapubic catheter (Z93.59) Dehydration (E86.0) Anemia (D64.9) Atrial fibrillation (I48.91) Quadriplegia (G82.50) Sacral decubitus ulcer, stage IV (L89.154) Seizure-like activity (R56.9) GERD (gastroesophageal reflux disease) (K21.9) Spasticity (R25.2) _ Discharge Medications Acetaminophen (Tylenol 325 mg oral tablet)??650 Milligram 2 tablet By Mouth Every 6 hours as neededas needed for mild pain or fever amiODARONE (amiodarone 200 mg oral tablet)??100 Milligram 0.5 tablet By Mouth 2 times a day for 30 Days Ascorbic Acid (ascorbic acid 500 mg oral tablet)??1 tab(s) 500 Milligram By Mouth 2 times a day Baclofen (baclofen 5 mg oral tablet)??1 tab(s) 5 Milligram By Mouth 3 times a day Baclofen (baclofen 5 mg oral tablet)??1 tab(s) 5 Milligram By Mouth 3 times a day as needed Spasm Bisacodyl (bisacodyl 10 mg rectal suppository)??UNWRAP AND INSERT 1 SUPPOSITORY RECTALLY DAILY AFTER DINNER Diazepam (diazepam 2 mg oral tablet)??2 Milligram 1 tablet By Mouth 2 times a day as needed Pain , Mild Docusate (docusate sodium 100 mg oral capsule)??1 capsule 100 Milligram By Mouth Daily at bedtime Durable Medical Equipment (doughnut pillow)??See Instructions Use while sitting down to prevent pressure in the sacral wound Durable Medical Equipment (Wet to Dry Dressing Changes Daily)??See Instructions Lightly moisten Kerlix in normal saline and apply to wound packing daily for managment of sacral decubitius ulcer (L89.159) Cover wound with Mepilex Ferrous Sulfate (ferrous sulfate 324 mg (65 mg elemental iron) oral delayed release tablet)??1 tab(s) 324 Milligram By Mouth Daily levETIRAcetam (levETIRAcetam 100 mg/mL oral solution)??5 Milliliter 500 Milligram By Mouth 2 times a day Melatonin (melatonin 10 mg oral tablet)??1 tab(s) 10 Milligram By Mouth Daily at bedtime Methenamine (methenamine hippurate 1 gm oral tablet)??TAKE ONE TABLET BY MOUTH TWICE A DAY WITH VITAMIN C Midodrine (midodrine 5 mg oral tablet)??See Instructions as needed 2 tablet PRN sys BP <90 BloodPressure Miscellaneous Rx (CBC w/ Diff, CMP, ESR and CRP)??See Instructions Please obtain weekly while on antibiotics on Monday and fax results to [facility] ID [phone] and PCP Miscellaneous Rx (Home health aid)??See Instructions 24/ home health aid and an overlap of 4 hoursfor the morning routine with nursing 1 per week for bowel and bladder oversight and medication management.Dx: Tetraplegia Miscellaneous Rx (MELATONIN TR 10 MG Tablet Extended Release)??TAKE ONE TABLET BY MOUTH AT BEDTIME Miscellaneous Rx (Nursing: Increase baclofen to 15 mg )??See Instructions Dx: Spasticity Miscellaneous Rx (Please provide 24/ REGISTERED NURSE FLOAT POOL care and weekly VNA visits for medication management.)??See Instructions Dx: Tetraplegia Multivitamin With Minerals??1 tab(s) By Mouth Daily Nystatin Topical (nystatin topical 100998 u/gm powder)??APPLY TOPICALLY TO THE AFFECTED AREA TWICE A DAY Pantoprazole (pantoprazole 40 mg oral delayed release tablet)??1 tab(s) 40 Milligram By Mouth 2 times a day Senna (Senna-Time 8.6 mg oral tablet)??TAKE ONE TABLET BY MOUTH TWICE A DAY NEEDED Sodium Chloride (Sodium Chloride 1000 mg oral tablet)??1 gram By Mouth 3 times a day for 30 Days Sodium Hypochlorite Topical (Dakins Quarter Strength 0.125% topical solution)??APPLY A DAKINS SOAKED GAUZE TO WOUND FOR 5 MINUTES EVERY OTHER DAY Medications Started Sodium Chloride (Sodium Chloride 1000 mg oral tablet)??1 gram By Mouth 3 times a day Medications Discontinued None Doses Changed Baclofen (baclofen 5 mg oral tablet)??1 tab(s) 5 Milligram By Mouth 3 times a day Baclofen (baclofen 5 mg oral tablet)??1 tab(s) 5 Milligram By Mouth 3 times a day as needed for Spasm Allergies Allergies ?(Active and Proposed Allergies Only) NKA? (Severity: Unknown severity, Onset: Unknown) ? PCP Follow-Up/Heads-Up Patient will need follow-up with nephrology regarding hyponatremia Continue patient on salt tablets and fluid restriction per nephrology Recommend patient follow-up with urology regarding??replacing suprapubic??catheter?? Future Appointments Monday 12:00 PM EST ?? Where: Cardiac Coater Hand Status: Pending Monday 12:00 PM EST ?? Where: Anesthesia Remote Sites Status: Pending 2024 2:00 PM EDT ?? With: Adrian Garcia MD Where: [facility] [address] [place] [id number] Status: Pending Hospital Course 73-year-old male??with past medical history significant for quadriplegia??due to cervical spine injury in 2020, intrathecal baclofen pump,??chronic sacral decubitus ulcer with recent wound vac placement,??neurogenic bladder with suprapubic catheter in place,??multiple prior UTIs,??nephrolithiasis with chronic left-sided??hydronephrosis??after urologic procedures??12/2023,??C. difficile??diarrhea 12/2023,??atrial fibrillation, coronary artery disease,??COPD,??seizure-like activity,??and recent hospitalization??06/04/2024 to 06/08/2024??for sepsis secondary to??MRSA UTI (completed a course of doxycyc line??and prophylactic??oral vancomycin), who presented for??worsening lethargy and fever 101 per??home REGISTERED NURSE FLOAT POOL.??Of note, his suprapubic catheter was just changed day prior per urology.??Admitted for concern of recurrent UTI. Patient received IV Zosyn 06/18 through 06/20, and Bactrim from 06/21 through 06/23. Patient also treated with oral vancomycin for C. difficile prophylaxis from 06/23 through 06/28. Hospital??course c/b hyponatremia, likely in setting of low osmole intake and perfusion dependent/independent secretion of ADH per nephrology. Patient treated with urea powder and salt tablets, ultimately leading to resolution of hyponatremia.?Course also complicated by??acute diarrhea??which resolved, patient was C. difficile negative??and negative for GI PCR??panel.?On day of discharge patient was hemodynamically stable,??afebrile,??minimally sodium levels??and overall clinically well-appearing. ?? Acute Hypo-osmolar Hyponatremia Labs consistent w/ Hypo-osmolar hyponatremia. Initially thought to be in setting of hypovolemia, given 1L 0.9 NaCl on 06/25. Na worsened to 122 06/26 AM, repeat 125. Pt euvolemic on exam. Nephrology consulted. Likely a combination of low osmole intake and perfusion dependent/independentADH secretion. Started on urea 30 g BID to increase osmotic load and concentrate urine. Salt tabs started 06/29 with good effect, as patient's hyponatremia improving on 06/30 Per Nephro recommend continuing sodium chloride tablets outpatient, continuing fluid restriction, and Nephrology will follow up with patient after discharge. ?? Recommendations: - Salt tablets 1g TID - Fluid restriction 1L/day, limit fluid intake to daytime. - Outpatient follow up appointment w/ Nephrology ? Chronic, stable, resolved: Acute diarrhea: Patient has had 7 bowel movement from 06/29-06/30, and per nursing staff many of themwere loose stools. Patient was on GI ppx for C diff after abx course for UTI. C diff negative, GI PCR negative during this admission. Patient afebrile, no leukocytosis, well appearing with normal lactate ?? Anemia (D64.9):??Baseline appears to be 8-9. No sign of active bleed. ?? Atrial fibrillation (I48.91):??Currently the patient is in a normal sinus rhythm. Continue amiodarone as prescribed. He is not on anticoagulation due to recurrent hematuria. ?? GERD (gastroesophageal reflux disease) (K21.9):??Continue PPI as prescribed. ?? Seizure-like activity (R56.9):??No current seizure activity. Continue levetiracetam as prescribed. ?? Quadriplegia (G82.50), Sacral decubitus ulcer, stage IV (L89.154), Spasticity (R25.2):??Per previous documentation, the patient has had ongoing issues with his sacral wound. He has a wound VAC, and family has been frustrated as it is only evaluated once weekly at the clinic. [facility] [place]??Home [facility]NA has not been managing the wound VAC, per the patient's .??Evaluated by PM&R, patient??reluctant to decrease baclofen to 5mg TID, however able tonegotiate w/ patient 5mg TID, with 5mg PRN up to TID.??Continue wound care instructions as per previous wound care consultation 06/07/2024. Continue??intrathecal baclofen pump (refill due in August),??diazepam as needed for spasm or pain,??bowel regimen. ?? Complicated UTI (urinary tract infection) (N39.0),??Chronic??Suprapubic catheter (Z93.59):??Patientreceived IV Zosyn 06/18 through 06/20, and Bactrim from 06/21 through 06/23. Patient also treated with oral vancomycin for C. difficile prophylaxis from 06/23 through 06/28. Discussed w/ Urology, suprapubic catheter??changed within past 4 weeks therefore does not need to be replaced even in setting of??UTI concern. Recommended outpt follow up ? Quality Measures During this Admission?? VTE Prophylaxis:??Lovenox?? Diet: Regular Code Status:??Full code ?? Objective Measurements?? Height: 178 cm (07/01/24) Weight: 88 kg (06/18/24) Dry Weight: 88 kg (06/18/24) Body Mass Index:??27.77 kg/m2??High (06/18/24) ? Vital Signs?? Temperature: 98.1 DegF (07/01/24 07:28:00) Temperature Route: Oral (07/01/24 07:28:00) Pulse Rate:??49 bpm??Low (07/01/24 07:28:00) Respiratory Rate: 18 br/min (07/01/24 09:54:00) Systolic Blood Pressure: 92 mm Hg (07/01/24 07:28:00) Diastolic Blood Pressure:??45 mm Hg??Low (07/01/24 07:28:00) Blood pressure sites: Arm, left (07/01/24 07:28:00) Mean Arterial Pressure: 61 mm Hg (07/01/24 07:28:00) Pulse Pressure: 47 mm Hg (07/01/24 07:28:00) Oxygen Saturation: 100 % (07/01/24 07:28:00) Mode of Delivery (Oxygen): Room air (07/01/24 07:28:00) FiO2: 28 % (06/30/24 23:08:00) Early Warning Score: 3 (07/01/24 11:27:02) ? . Physical Exam General: Patient in no acute distress, appears more tired today HEENT: normocephalic, atraumatic Respiratory: bilateral equal air entry, clear to auscultation with no wheezes or crackles. CVS: regular rate and rhythm, S1 and S2 present, no murmurs. No JVD.?? Abdomen: soft, non tender, non distended, bowel sounds present. Extremities: No edema noted bilaterally. Neuro: alert and oriented x3. Moving all extremities spontaneously. Following simple commands. Consultants Infectious disease Nephrology PMR Patient Education Titles WebMD Ignite Patient Education - Hyponatremia?? WebMD Ignite Patient Education - Understanding Urinary Tract Infections (UTIs)?? Follow-Up Appointments Added Follow Up ?Time Frame ?Comments Milagros DO, Aba A?3-5 day: call to discuss follow up visit Patient Instructions You came to the hospital because you had a fever when you are at home??and there was concern here that you had a urinary tract infection so you were treated with??antibiotics including Zosyn,??Bactrim.?You were also treated with oral vancomycin in order to prevent??an infection called Clostridium ??difficile.?Infectious disease team was consulted to help??with your antibiotic treatment.??While here in the hospital you were found to have??low sodium??concentration in your blood.?Nephrology was consulted and provided the recommendations for your management.?You were given urea??powder and salt tablets which helped improve your??sodium levels.?During your hospitalization you had??intermittent diarrhea??however you were negative for??any GI infections??including C. difficile.? Per the nephrology team you should continue taking??1 g of salt tablets 3 times a day??and??[facility]-up with[facility]outpatient follow-up with the nephrology team.?Per the physical medic send and rehabilitation team??they recommended decreasing baclofen to 5 mg??3 times a day and??an additional??5 mg as needed??up to 3 times a day.?? Please follow up??with your??Urologist??regarding??replacement and??care??of your catheter.??Please call your primary care??provider to discuss??follow-up regarding your recent hospitalization. ?? If you??develop any chest pain, shortness of breath, fevers or chills,??profuse diarrhea you should??either??call your primary care provider or come??to[facility] ED for medical evaluation. ?? Thank you for letting [facility]??participate in your care! Post Discharge Care Wound Care: ??Wound Site: sacral wound every other day Yes ?? Discharge ?07/01/24 14:39:00 EST ?Order Comment:?? Home Health Face to Face *Denotes mandatory rangel ?? *I certify that this patient is under my care and that I or an allowed non- physician working with me had a face to face encounter with the patient on this date:??07/01/2024 14:34 ?? *The encounter with the patient was in whole, or in part, for the following medical condition, which is the primary diagnosis(es) for home health care:??Fever (R50.9) Complicated UTI (urinary tract infection) (N39.0) Suprapubic catheter (Z93.59) Dehydration (E86.0) Anemia (D64.9) Atrial fibrillation (I48.91) Quadriplegia (G82.50) Sacral decubitus ulcer, stage IV (L89.154) Seizure-like activity (R56.9) GERD (gastroesophageal reflux disease) (K21.9) Spasticity (R25.2) ?? *Select the indications for the discipline/s that are being arranged for this patient. Nursing (select all that apply): [_] None [_X] Medication management (reconciliation, teaching)?? [_X] Chronic disease management?? [_X] Wound care and treatment?? [_X] Home safety evaluation [_] Administer SQ/IM/IV medications?? [_X] Cath care?? [_] Drain care?? [_] Trach or GT care?? Other _ Occupation Therapy (select all that apply): [_] None [_] ADL Management [_] Fall prevention training [_] Energy conservation [_X] Cognitive training Other _ Physical Therapy (select all that apply): [_] None [_] Functional mobility training [_] Home exercise program to strengthen [_] Increase ROM?? [_] Falls prevention training [_X] Home maintenance program for chronic disease Other _ Speech Therapy (select all that apply): [_] None [_] Swallow evaluation and training [_] Speech and language training [_] Cognitive training to process, organize, and/or recall information Other _ ? *Homebound due to (select all that apply): [_X] Inability to leave home without assistance/supervision [_] Inability to ambulate without assistance [_] Pain [_] Decreased strength and endurance [_] Unsteady gait [_] Severe SOB and fatigue [_] Impaired transfers [_] Inability to negotiate stairs [_] Limited weight bearing [_] Mental status change? *Physician Signature:??Kristofer Azul MD ?? *By signing this, I certify that I have personally evaluated the patient and agree with the findings and recommendations as documented above. ? Results Discharge Labs BACTERIOLOGY Urine Culture Results Final report ()?? 06/18/2024 02:35 Blood Culture Results Final report ()?? 06/17/2024 20:40 Blood Culture Specimen Source BLOOD ()?? 06/17/2024 20:40 Blood Culture Isolate 1 Comment ()?? 06/17/2024 20:40 Blood Cult 2 Results Final report ()?? 06/17/2024 21:33 Blood Culture 2 Specimen Source BLOOD ()?? 06/17/2024 21:33 Blood Culture 2 Isolate 1 Comment ()?? 06/17/2024 21:33 Urine Culture Specimen Source URINE ()?? 06/18/2024 02:35 Urine Culture Isolate 1 Comment ()?? 06/18/2024 02:35 ? BLOOD BANK Blood Type A Positive ()?? 06/19/2024 13:37 Antibody Screen Negative ()?? 06/19/2024 13:37 RBC Unit ID [id number] ()?? 06/19/2024 17:46 RBC Available PT ()?? 06/19/2024 17:46 ?? BLOOD COUNT & DIFF WBC 6.7 k/mm3 ()?? 07/01/2024 02:30 RBC 3.24 m/mm3 (Low)?? 07/01/2024 02:30 Hgb 8.5 Gm/dL (Low)?? 07/01/2024 02:30 Hct 26.9 % (Low)?? 07/01/2024 02:30 MCV 83.0 femtoliters ()?? 07/01/2024 02:30 MCH 26.2 pg (Low)?? 07/01/2024 02:30 MCHC 31.6 Gm/dL (Low)?? 07/01/2024 02:30 Platelet Count 315 k/mm3 ()?? 07/01/2024 02:30 RDW-SD 45.2 femtoliters ()?? 07/01/2024 02:30 MPV 9.4 femtoliters ()?? 07/01/2024 02:30 Nucleated RBC (Automated) 0.0 #/100 WBC'S ()?? 07/01/2024 02:30 Abs. NRBC 0.0 k/mm3 ()?? 07/01/2024 02:30 Abs. Neut 6.1 k/mm3 ()?? 06/30/2024 10:43 Abs. Lymph 0.9 k/mm3 ()?? 06/30/2024 10:43 Abs. Laurel 0.5 k/mm3 ()?? 06/30/2024 10:43 Abs. Eo 0.2 k/mm3 ()?? 06/30/2024 10:43 Abs. Baso 0.0 k/mm3 ()?? 06/30/2024 10:43 Neut % 78.5 % (High)?? 06/30/2024 10:43 Lymph % 11.9 % (Low)?? 06/30/2024 10:43 Laurel % 6.1 % ()?? 06/30/2024 10:43 Eos % 2.5 % ()?? 06/30/2024 10:43 Baso % 0.5 % ()?? 06/30/2024 10:43 Retic Count 1.2 % ()?? 06/19/2024 08:25 Retic Count Corrected 0.6 % (Low)?? 06/19/2024 08:25 Retic Production Index 0.3 % (Low)?? 06/19/2024 08:25 Imm Gran 0.5 % ()?? 06/30/2024 10:43 Abs. Imm Gran 0.0 k/mm3 ()?? 06/30/2024 10:43 ? CHEM GENERAL Sodium 134 mmol/L ()?? 07/01/2024 10:38 Potassium 4.1 mmol/L ()?? 07/01/2024 10:38 Chloride 96 mmol/L (Low)?? 07/01/2024 10:38 Bicarbonate Level 27 mmol/L ()?? 07/01/2024 10:38 Anion Gap 11 mmol/L ()?? 07/01/2024 10:38 Glucose Level 110 mg/dL (High)?? 07/01/2024 02:30 Glucose, POC 129 mg/dL (High)?? 06/20/2024 16:39 BUN 105 mg/dL (High)?? 07/01/2024 02:30 Creatinine-Blood 0.71 mg/dL ()?? 07/01/2024 02:30 Estimated GFR Creatinine 98 ML/MIN/1.73 M2 ()?? 07/01/2024 02:30 Osmolality 266 mOs/kg (Low)?? 06/28/2024 05:54 Calcium 9.7 mg/dL ()?? 07/01/2024 02:30 Phosphorus 3.1 mg/dL ()?? 06/30/2024 08:50 Magnesium 2.4 mg/dL (High)?? 06/30/2024 08:50 Protein, Total 7.3 Gm/dL ()?? 06/17/2024 20:27 Albumin 3.0 Gm/dL (Low)?? 06/17/2024 20:27 AG Ratio 0.7 ()?? 06/17/2024 20:27 Alkaline Phosphatase 64 units/L ()?? 06/17/2024 20:27 Lipase, Serum/Plasma 12 units/L (Low)?? 06/17/2024 20:27 AST (SGOT) 19 units/L ()?? 06/17/2024 20:27 ALT (SGPT) 12 units/L ()?? 06/17/2024 20:27 Bilirubin, Total 0.2 mg/dL ()?? 06/17/2024 20:27 Lactate 1.1 mmol/L ()?? 06/30/2024 10:43 Uric Acid 4.3 mg/dL ()?? 06/26/2024 16:48 ?? ENDOCRINE/TUMOR MARKER TSH 0.95 uIU/mL ()?? 06/26/2024 10:27 Cortisol Level 10.9 ??g/dL ()?? 06/26/2024 10:27 ?? HEME OTHER Hold Lavender Top SPECIMEN DISCARDED AFTER 24 HOURS. ()?? 06/29/2024 07:13 ? MISC. CHEMISTRY Hold Green Top SPECIMEN DISCARDED AFTER 1 WEEK ()?? 07/01/2024 02:30 ? SEROLOGY INF DISEASE C. Difficile Toxin by PCR NEGATIVE ()?? 06/30/2024 16:53 ? UA/URINALYSIS Appear/Color, Urine YELLOW ()?? 06/18/2024 02:35 Specific [place], Urine 1.017 ()?? 06/18/2024 02:35 pH, Urine 6.0 ()?? 06/18/2024 02:35 Albumin, Urine 3+ (Abnormal)?? 06/18/2024 02:35 Glucose, Urine NEGATIVE ()?? 06/18/2024 02:35 Ketones, Urine NEGATIVE ()?? 06/18/2024 02:35 Bilirubin, Urine NEGATIVE ()?? 06/18/2024 02:35 Hemoglobin, Urine 2+ (Abnormal)?? 06/18/2024 02:35 Nitrite, Urine NEGATIVE ()?? 06/18/2024 02:35 Leukocyte, Urine 3+ (Abnormal)?? 06/18/2024 02:35 Urobilinogen NORMAL mg/dL ()?? 06/18/2024 02:35 WBC's, Urine >182 /HPF (High)?? 06/18/2024 02:35 RBC's, Urine 52 /HPF (High)?? 06/18/2024 02:35 Bacteria SLIGHT HPF (Abnormal)?? 06/18/2024 02:35 Squamous Epith 6 /HPF ()?? 06/18/2024 02:35 Mucus SLIGHT /LPF ()?? 06/18/2024 02:35 WBC Clumps SLIGHT /HPF ()?? 06/18/2024 02:35 Budding Yeast MODERATE /HPF ()?? 06/18/2024 02:35 Hold Urine Culture Testing available 48 hours from time of collection. ()?? 06/26/2024 14:46 Hold Urine Testing Available 24 hours from Time of Collection ()?? 06/28/2024 07:00 ?? URINE OTHER Creatinine, Urine Random 16.0 mg/dL ()?? 06/29/2024 13:39 Sodium, Urine Random 41 mmol/L ()?? 06/28/2024 07:00 Osmolality, Urine Random 267 mOsm/kg ()?? 06/28/2024 07:00 Uric Acid, Urine Random 15.2 mg/dL ()?? 06/29/2024 13:39 Est Creatinine Clearance 98.78 mL/min ()?? 07/01/2024 03:28 ? VIROLOGY Influenza A PCR NEGATIVE ()?? 06/17/2024 02:35 Influenza B PCR NEGATIVE ()?? 06/17/2024 02:35 RSV PCR NEGATIVE ()?? 06/17/2024 02:35 COVID-19 PCR Specimen Source NASAL ()?? 06/17/2024 02:35 COVID-19 PCR Result NEGATIVE ()?? 06/17/2024 02:35 ? Microbiology ?? C.diff PCR, w Rfx Toxin/Ag?? Completed?? Source: Stool Body Site: ?? Collected Dt/Tm: 06/30/2024 16:53 Last Updated Dt/Tm: 06/30/2024 18:57 ?? Blood Culture #2?? Completed?? Source: Blood Body Site: ?? Collected Dt/Tm: 06/17/2024 21:33 Last Updated Dt/Tm: 06/18/2024 12:08 ?? Blood Culture 2 Results?? Completed?? Source: Blood Body Site: ?? Collected Dt/Tm: 06/17/2024 21:33 Last Updated Dt/Tm: 06/18/2024 12:09 ?? Blood Culture?? Completed?? Source: Blood Body Site: ?? Collected Dt/Tm: 06/17/2024 20:40 Last Updated Dt/Tm: 06/18/2024 12:08 ?? Blood Culture Result?? Completed?? Source: Blood Body Site: ?? Collected Dt/Tm: 06/17/2024 20:40 Last Updated Dt/Tm: 06/18/2024 12:09 ?? COVID-19, RSV, and Flu A/B, Rapid PCR?? Completed?? Source: Nasal Body Site: Nose Collected Dt/Tm: 06/17/2024 20:05 Last Updated Dt/Tm: 06/18/2024 07:18 ? Image ?XR Abdomen AP??06/30/2024 18:36 by Sathya Tavares ?IMPRESSION: 1. No evidence of acute abdominal abnormality. ?? Microbiology ?Urine Culture Isolate 1 Comment??06/19/2024 18:06 by Contributor_system , [email or web address] ?Mixed urogenital bruce 50,000-100,000 colony forming units per mL ?? 45 minutes spent on discharge ?? Patient seen and discussed with attending physician Dr. Christianne Azul MD Internal Medicine, PGY1 * Christianne CAMACHO, Julio Mcgarry: PERFORM Event Display: Discharge/Transfer Note Hospital Authored Date: [id number] Attending Attestation:??I have seen and evaluated this patient. ??I have discussed the case and itsmanagement with the resident and agree with the findings and plan as documented in the resident???snote. This patient was seen today with the medical team at??approximately 12:35 PM The patient was doing pretty well today. ??Overall he is improved nicely since he was admitted.?? He feels ready to go home today. ?? He was wearing CPAP when we came into the room but he sometimes does that at home even during the daytime when he is awake anyway. ?? He felt fine with going home though. ?? No new pains no new aches no shortness of breath no nausea no vomiting. ?? On exam??patient appeared chronically ill.?? Catheter in place draining clear yellow urine.?? The??patient was wearing CPAP as noted??nasal pillows. ?? Vital signs are stable afebrile??temperature is??afebrile.?? Heart rate is low but that is where heusually is at 49 blood pressure on the low side but that is where he usually is as well.?? O2 sat 100% on room air ?? See above for other details. ?? Laboratory studies reviewed:??White count normal H&H low but stable platelet count good electrolytes are renal numbers are good sugar about 100 ?? Abdominal x-ray overnight showed??no obstruction. ?? Assessment plan: Improved nicely over the last 2 weeks. ??I just met??him for the first time today but everything seems stabilized.?? He is ready to go home today.?? Chronic issues need to be followed up closely of course.?? His sodium has normalized. ??Will go home on salt tablets and follow-up closely. ?? Urology was asked about whether the suprapubic tube needed to be changed at this point they indicated that it does not. ??Follow-up as an outpatient for that. ?? Patient will go home with VNA services as indicated. ?? Please see above for the rest of the details of our assessments and plans. ? * Jorge Alberto CAMACHO, Kristofer: PERFORM Event Display: Discharge/Transfer Note Hospital Authored Date: [id number] ?? Woundcare Recommendations: ?? 1.) Sacrococcygeal: Gently place VASHE solution moistened gauze into wound bed and allow to soak for 5 minutes then remove. Ensure to irrigate cavernous undermining areas. Cleanse the periwound with VASHE solution. Allow to dry. Apply Triad to periwound ensure to apply to affected skin loss. Cut Aquacel ag in a spiral shape creating one long piece. Pack wound loosely with Aquacel ag, leaving a wick to allow for easy removal. Cover with a Mepilex foam dressing. Change every other day and as needed for soiling/saturation.? *Do not use multiple pieces of Aquacel ag - concern for leaving pieces inside wound d/t depth and unable to visualize wound bed* *If aquacel ag is difficult to remove with dressing changes , please re-consult Inpatient Wound Care Team. Trauma can occur when removing a dry adhered dressing from a dry wound.?? *For increased episodes of incontinence discontinue Mepilex foam use and utilize DSD/Medipore tape as secondary dressing. ? 2.) Continue use of specialty bed/low air loss mattress 3.) Turn and reposition every 2 hours and PRN. Encourage utilization of foam wedges unless contraindicated.?? 4.) Continue incontinence care as well as moisture management; do not utilize Mepilex foam dressingwith incontinence.?? 5.) Do not utilize brief use?? 6.) Continue to offload bony prominences. ?? 7.) Continue to provide optimal nutritional support; nutrition consulted8.) Provide Gaymar cushion to chair when patient?? * Mary Temple RN: PERFORM Event Display: Patient Education/Instruction Authored Date: [id number] Inpatient Adult Discharge Instructions. [address] [address] Name: ADRIAN TORREZ : 1950?? Visit: 06/18/2024 07:38?? Current Date: 07/01/2024 14:44 ?? Account: [id number]?? Inpatient Adult Discharge Instructions We would like [...] and their families. Surveys are administered by [employer] ?? If further treatment with your primary care physician or another doctor is recommended, it is important for you to keep the appointment. Call your primary care physician or return to the Emergency Department immediately if your condition worsens, fails to improve, or new symptoms develop. If you need to find a doctor, you can call [facility] for a referral at [phone] or toll free at [phone] ([phone]) or log in to [email or web address].. ?? [facility], in keeping with [facility] guidance, no longer requires face masks for [...] a health care joshua of your choosing. [employer] is a website that allows you to securely view your medical information including your hospital discharge summary, office visit summaries, medications and follow-up visits. You can also request appointments, renew medications, and request access to your medical information using a health care joshua of your choosing, or just ask a question. You can enroll at [email or web address] or register during your next office visit. You have been discharged from [facility], Patient Care Unit: D6A??. If you have any questions regarding these instructions, including results of studies pending, afteryou leave, please call us and we will be happy to assist you 28/11. [facility] Your Care Team Attending Physician Christianne CAMACHO, Julio Mcgarry?? Consulting Providers Julio Faust MD?? Discharging Providers Kristofer Azul MD Reason for Your Visit pt is quadraplegic, has wound vac, here for FTT, not acting right or eating right, general malaise?? Your Diagnosis Fever Complicated UTI (urinary tract infection) Suprapubic catheter Dehydration Anemia Atrial fibrillation Quadriplegia Sacral decubitus ulcer, stage IV Seizure-like activity GERD (gastroesophageal reflux disease) Spasticity Tests Performed Below is a partial list of the tests performed during your hospitalization. You may have had other tests and procedures not included in this list. Please discuss all test results with your provider. Basic Metabolic Panel Blood Culture Blood Culture #2 Blood Culture 2 Results Blood Culture Result C.diff PCR, w Rfx Toxin/Ag CBC CBC w/ Differential Comprehensive Metabolic Panel CORTISOL COVID-19, RSV, and Flu A/B, Rapid PCR Electrolytes GLUCOSE POC HOLD GREEN TUBE HOLD LAVENDER TUBE HOLD URINE CULTURE HOLD URINE, HEMATOLOGY Lactate Level Lipase Magnesium Level Mg Level OSMOLALITY, SERUM Phosphorus Level RETICULOCYTE COUNT Sodium Urine TSH Type and Screen Uric Acid Uric Acid Urine Urinalysis w/hold for Urine Culture Urine Creatinine Urine Culture Result Urine Culture, Routine Urine Osmolality Urine Sodium XR Chest 2 Views Frontal and Lat XR KUB or Abdomen Add On Lab Order?? Basic Metabolic Panel?? Blood Culture?? Blood Culture #2?? Blood Culture 2 Results?? Blood Culture Result?? C.diff PCR, w Rfx Toxin/Ag?? CBC?? CBC w/ Differential?? COVID-19, RSV, and Flu A/B, Rapid PCR?? Comprehensive Metabolic Panel?? Cortisol Level (CORTISOL)?? Creatinine Urine (Urine Creatinine)?? Electrolytes?? Glucose POC?? Hold Green Top Tube (HOLD GREEN TUBE)?? Hold Lavender Top Tube (HOLD LAVENDER TUBE)?? Hold Urine (HOLD URINE, HEMATOLOGY)?? Hold Urine Culture?? Lactic Acid Level (Lactate Level)?? Lipase?? Magnesium Level (Mg Level)?? Osmolality (OSMOLALITY, SERUM)?? Osmolality Urine (Urine Osmolality)?? Phosphorus Level?? Reticulocyte Ct (RETICULOCYTE COUNT)?? Sodium Urine?? TSH?? Transfuse RBCs?? Type and Screen?? Uric Acid?? Uric Acid Urine?? Urinalysis w/hold for Urine Culture?? Urine Culture (Urine Culture, Routine)?? Urine Culture Result?? XR Abdomen AP (XR KUB or Abdomen)?? Chest 2 Views Frontal and Lat (XR Chest 2 Views Frontal and Lat)?? Primary Care Provider Milagros CHUNG, Aba Gee? Advance Directive Health Care Proxy on File Yes - Health Care Proxy Yes - MOLST Discharge Vitals Temperature: 98.1 DegF Height: 178 cm Pulse Rate:??49 bpm??Low Weight: 88 kg Respiratory Rate: 18 br/min Body Mass Index:??27.77 kg/m2??High Systolic Blood Pressure: 92 mm Hg Body surface area: 2.09 Diastolic Blood Pressure:??45 mm Hg??Low ?? Oxygen Saturation: 100 % ?? Studies Pending All studies ordered during this hospital stay have been completed unless listed below. Please discuss all pending results with your provider listed above in these instructions. ?? Add On Lab Order?? Electrolytes?? Transfuse RBCs?? What to do next Instructions From Your Doctor You came to the hospital because you had a fever when you are at home??and there was concern here that you had a urinary tract infection so you were treated with??antibiotics including Zosyn,??Bactrim.?You were also treated with oral vancomycin in order to prevent??an infection called Clostridium ??difficile.?Infectious disease team was consulted to help??with your antibiotic treatment.??While here in the hospital you were found to have??low sodium??concentration in your blood.?Nephrology was consulted and provided the recommendations for your management.?You were given urea??powder and salt tablets which helped improve your??sodium levels.?During your hospitalization you had??intermittent diarrhea??however you were negative for??any GI infections??including C. difficile.? Per the nephrology team you should continue taking??1 g of salt tablets 3 times a day??and??follow-up with??the [facility]??outpatient follow-up with the nephrology team.?Per the physical medic send and rehabilitation team??they recommended decreasing baclofen to 5 mg??3 times a day and??an additional??5 mg as needed??up to 3 times a day.?? Please follow up??with your??Urologist??regarding??replacement and??care??of your catheter.??Please call your primary care??provider to discuss??follow-up regarding your recent hospitalization. ?? If you??develop any chest pain, shortness of breath, fevers or chills,??profuse diarrhea you should??either??call your primary care provider or come??to??[facility] ED for medical evaluation. ?? Thank you for letting [facility]??participate in your care! ?? Orders? 07/01/24 14:39:00 EST?? Scheduled Follow-Up Appointments Monday 12:00 PM EST ?? Where: Cardiac Coater Hand Status: Pending Monday 12:00 PM EST ?? Where: Anesthesia Remote Sites Status: Pending 2024 2:00 PM EDT ?? With: Adrian Garcia MD Where: [facility] [address] [place] [id number]- Status: Pending You Need to Schedule the Following Appointments Follow Up with??Milagros CHUNG, Aba A When:??Within 3-5 day: call to discuss follow up visit Where: [address] [facility] [place] [address]- Discharge Medications ADRIAN TORREZ:1950 Visit Date:06/18/2024 Medications: Please continue your medications until treatment is completed or stopped by your provider. Medications not listed below should be discontinued. Discuss any questions related to medications with your provider. What How Much When Instructions Next Dose New Sodium Chloride (Sodium Chloride 1000 mg oral tablet) 1 gram Oral 3 times a day Duration: 30 Days Pickup at [place] [address]) 07/01 5 pm Changed Baclofen (baclofen 5 mg oral tablet) 1 tab(s) Oral 3 times a day as needed for Spasm Pickup at [place] [address]) 07/01 pm Changed Baclofen (baclofen 5 mg oral tablet) 1 tab(s) Oral 3 times a day Pickup at [place] [address]) 07/01 pm Unchanged Acetaminophen (Tylenol 325 mg oral tablet) 2 tab(s) Oral Every 6 hours as needed for as needed for mild pain or fever 07/01 pm Unchanged amiODARONE (amiodarone 200 mg oral tablet) 0.5 tab(s) Oral Twice a day Duration: 30 Days 07/01 pm Unchanged Ascorbic Acid (ascorbic acid 500 mg oral tablet) 1 tab(s) Oral Twice a day 07/01 Unchanged Bisacodyl (bisacodyl 10 mg rectal suppository) UNWRAP AND INSERT 1 SUPPOSITORY RECTALLY DAILY AFTER DINNER ?? Unchanged Diazepam (diazepam 2 mg oral tablet) 1 tab(s) Oral Twice a day as needed for Pain , Mild 07/01 Unchanged Docusate (docusate sodium 100 mg oral capsule) 1 capsule Oral Daily at Bedtime 07/01 Unchanged Durable Medical Equipment (doughnut pillow) See instructions Use while sitting down to prevent pressure in the sacral wound ?? Unchanged Durable Medical Equipment (Wet to Dry Dressing Changes Daily) See instructions Lightly moisten Kerlix in normal saline and apply to wound packing daily for managment of sacral decubitius ulcer (L89.159) Cover wound with Mepilex ?? Unchanged Ferrous Sulfate (ferrous sulfate 324 mg (65 mg elemental iron) oral delayed release tablet) 1 tab(s) Oral Daily Unchanged levETIRAcetam (levETIRAcetam 100 mg/ mL oral solution) 5 Milliliter Oral Twice a day Unchanged Melatonin (melatonin 10 mg oral tablet) 1 tab(s) Oral Daily at Bedtime Unchanged Methenamine (methenamine hippurate 1 gm oral tablet) TAKE ONE TABLET BY MOUTH TWICE A DAY WITH VITAMIN C ?? Unchanged Midodrine (midodrine 5 mg oral tablet) See instructions 2 tablet PRN sys BP <90, As needed for Blood Pressure ?? Unchanged Miscellaneous Rx (CBC w/ Diff, CMP, ESR and CRP) See instructions Please obtain weekly while on antibiotics on Monday and [phone] ?? Unchanged Miscellaneous Rx (Home health aid) See instructions home health aid and an overlap of 4 hours for the morning routine with nursing 1 per week forbowel and bladder oversight and medication management. Dx: Tetraplegia ?? Unchanged Miscellaneous Rx (MELATONIN TR 10 MG Tablet Extended Release) TAKE ONE TABLET BY MOUTH AT BEDTIME ?? 07/01 9 pm Unchanged Miscellaneous Rx (Nursing: Increase baclofen to 15 mg ) See instructions Dx: Spasticity ?? Unchanged Miscellaneous Rx (Please provide REGISTERED NURSE FLOAT POOL care and weekly VNA visits for medication management.) See instructions Dx: Tetraplegia ?? Unchanged Multivitamin With Minerals 1 tab(s) Oral Daily Unchanged Nystatin Topical (nystatin topical 099418 u/ gm powder) APPLY TOPICALLY TO THE AFFECTED AREA TWICE A DAY ?? Unchanged Pantoprazole (pantoprazole 40 mg oral delayed release tablet) 1 tab(s) Oral Twice a day Unchanged Senna (Senna-Time 8.6 mg oral tablet) TAKE ONE TABLET BY MOUTH TWICE A DAY NEEDED ?? Unchanged Sodium Hypochlorite Topical (Dakins Quarter Strength 0.125% topical solution) APPLY A DAKINS SOAKED GAUZE TO WOUND FOR 5 MINUTES EVERY OTHER DAY ?? Pharmacy Information [facility] [id number] ([facility]): [address], [place] [id number] [phone] Prescription Given During Visit Baclofen (baclofen 5 mg oral tablet) - 1 tablet = 5 mg, By Mouth, 3 times a day, # 90 tablet, 0 Refills, [facility] [id number] ([facility]), [address] [place] [address] [phone]?? Baclofen (baclofen 5 mg oral tablet) - 1 tablet = 5 mg, By Mouth, 3 times a day, # 90 tablet, 1 Refills, [facility] [address] ([facility] [address]), [address] [place] [address] [phone]?? Sodium Chloride (Sodium Chloride 1000 mg oral tablet) - 1 Gm, By Mouth, 3 times a day, # 90 tablet,0 Refills, [facility] [address] ([facility] [address]), [address] [place] [address] [phone]?? Laboratory Results Below is a partial list of the most recent Laboratory test results done prior to this discharge. You may have had other tests and procedures not included in this list. Please discuss all test resultswith your provider. Est Creatinine Clearance - 98.78 mL/min (07/01/2024) RBC Available - PT (06/19/2024) RBC Unit ID - [id number] (06/19/2024) Basic Metabolic Panel (07/01/2024) ???Sodium - 133 mmol/L???Potassium - 4.3 mmol/L???Chloride - 96 mmol/L???Bicarbonate Level - 28 mmol/L???Anion Gap - 9 mmol/L???Glucose Level - 110 mg/dL???BUN - 105 mg/dL???Creatinine-Blood - 0.71 mg/dL???Estimated GFR Creatinine - 98 ML/MIN/1.73 M2???Calcium - 9.7 mg/dL Blood Culture (06/17/2024) ???Blood Culture Results - Final report???Blood Culture Specimen Source - BLOOD Blood Culture #2 (06/17/2024) ???Blood Cult 2 Results - Final report???Blood Culture 2 Specimen Source - BLOOD Blood Culture 2 Results (06/17/2024) ???Blood Culture 2 Isolate 1 - Comment Blood Culture Result (06/17/2024) ???Blood Culture Isolate 1 - Comment C.diff PCR, w Rfx Toxin/Ag (06/30/2024) ???C. Difficile Toxin by PCR - NEGATIVE CBC (07/01/2024) ???WBC - 6.7 k/mm3???RBC - 3.24 m/mm3???Hgb - 8.5 Gm/dL???Hct - 26.9 %???MCV - 83.0 femtoliters???MCH - 26.2 pg???MCHC - 31.6 Gm/dL???Platelet Count - 315 k/mm3???RDW-SD - 45.2 femtoliters???MPV - 9.4 femtoliters???Nucleated RBC (Automated) - 0.0 #/100 WBC'S???Abs. NRBC - 0.0 k/mm3 CBC w/ Differential (06/30/2024) ???WBC - 7.7 k/mm3???RBC - 3.27 m/mm3???Hgb - 8.7 Gm/dL???Hct - 27.7 %???MCV - 84.7 femtoliters???MCH - 26.6 pg???MCHC - 31.4 Gm/dL???Platelet Count - 326 k/mm3???RDW-SD - 46.0 femtoliters???MPV - 9.5 femtoliters???Nucleated RBC (Automated) - 0.0 #/100 WBC'S???Abs. NRBC - 0.0 k/mm3???Abs. Neut - 6.1 k/mm3???Abs. Lymph - 0.9 k/mm3???Abs. Laurel - 0.5 k/mm3???Abs. Eo - 0.2 k/mm3???Abs. Baso - 0.0 k/mm3???Neut % - 78.5 %???Lymph % - 11.9 %???Laurel % - 6.1 %???Eos % - 2.5 %???Baso % - 0.5 %???Imm Gran- 0.5 %???Abs. Imm Gran - 0.0 k/mm3 Comprehensive Metabolic Panel (06/17/2024) ???Sodium - 134 mmol/L???Potassium - 4.7 mmol/L???Chloride - 98 mmol/L???Bicarbonate Level - 21 mmol/L???Anion Gap - 15 mmol/L???Glucose Level - 102 mg/dL???BUN - 43 mg/dL???Creatinine-Blood - 1.03 mg/dL???Estimated GFR Creatinine - 78 ML/MIN/1.73 M2???Calcium - 8.9 mg/dL???Protein, Total - 7.3 Gm/d L???Albumin - 3.0 Gm/dL???AG Ratio - 0.7???Alkaline Phosphatase - 64 units/L???AST (SGOT) - 19 units/L???ALT (SGPT) - 12 units/L???Bilirubin, Total - 0.2 mg/dL CORTISOL (06/26/2024) ???Cortisol Level - 10.9 ??g/dL COVID-19, RSV, and Flu A/B, Rapid PCR (06/17/2024) ???Influenza A PCR - NEGATIVE???Influenza B PCR - NEGATIVE???RSV PCR - NEGATIVE???COVID-19 PCR Specimen Source - NASAL???COVID-19 PCR Result - NEGATIVE Electrolytes (07/01/2024) ???Sodium - 134 mmol/L???Potassium - 4.1 mmol/L???Chloride - 96 mmol/L???Bicarbonate Level - 27 mmol/L???Anion Gap - 11 mmol/L GLUCOSE POC (06/20/2024) ???Glucose, POC - 129 mg/dL HOLD GREEN TUBE (07/01/2024) ???Hold Green Top - SPECIMEN DISCARDED AFTER 1 WEEK HOLD LAVENDER TUBE (06/29/2024) ???Hold Lavender Top - SPECIMEN DISCARDED AFTER 24 HOURS. HOLD URINE CULTURE (06/26/2024) ???Hold Urine Culture - Testing available 48 hours from time of collection. HOLD URINE, HEMATOLOGY (06/28/2024) ???Hold Urine - Testing Available 24 hours from Time of Collection Lactate Level (06/30/2024) ???Lactate - 1.1 mmol/L Lipase (06/17/2024) ???Lipase, Serum/Plasma - 12 units/L Magnesium Level (06/19/2024) ???Magnesium - 2.1 mg/dL Mg Level (06/30/2024) ???Magnesium - 2.4 mg/dL OSMOLALITY, SERUM (06/28/2024) ???Osmolality - 266 mOs/kg Phosphorus Level (06/30/2024) ???Phosphorus - 3.1 mg/dL RETICULOCYTE COUNT (06/19/2024) ???Retic Count - 1.2 %???Retic Count Corrected - 0.6 %???Retic Production Index - 0.3 % Sodium Urine (06/28/2024) ???Sodium, Urine Random - 41 mmol/L TSH (06/26/2024) ???TSH - 0.95 uIU/mL Type and Screen (06/19/2024) ???Blood Type - A Positive???Antibody Screen - Negative Uric Acid (06/26/2024) ???Uric Acid - 4.3 mg/dL Uric Acid Urine (06/29/2024) ???Uric Acid, Urine Random - 15.2 mg/dL Urinalysis w/hold for Urine Culture (06/18/2024) ???Appear/Color, Urine - YELLOW???Specific [place], Urine - 1.017???pH, Urine - 6.0???Albumin, Urine - 3+???Glucose, Urine - NEGATIVE???Ketones, Urine - NEGATIVE???Bilirubin, Urine - NEGATIVE???Hemoglobin, Urine - 2+???Nitrite, Urine - NEGATIVE???Leukocyte, Urine - 3+???Urobilinogen - NORMAL???WBC's, Urine - >182 /HPF? ?RBC's, Urine - 52 /HPF? ?Bacteria - SLIGHT? ?Squamous Epith - 6 /HPF? ?Mucus - SLIGHT???WBC Clumps - SLIGHT???Budding Yeast - MODERATE???Hold Urine Culture - Testing available 48 hours from time of collection. Urine Creatinine (06/29/2024) ???Creatinine, Urine Random - 16.0 mg/dL Urine Culture Result (06/18/2024) ???Urine Culture Isolate 1 - Comment Urine Culture, Routine (06/18/2024) ???Urine Culture Results - Final report???Urine Culture Specimen Source - URINE Urine Osmolality (06/28/2024) ???Osmolality, Urine Random - 267 mOsm/kg Urine Sodium (06/26/2024) ???Sodium, Urine Random - 59 mmol/L You will be contacted within 72 hours with your results. Allergies (NKA means No Known Allergies) NKA Problems Active Problems??(17) Anemia?? Atrial fibrillation?? CAD in [place] artery?? Constipation?? COPD (chronic obstructive pulmonary disease)?? Elevated troponin?? GERD (gastroesophageal reflux disease)?? Hematuria?? Lower extremity edema?? Neurogenic bladder?? Presence of intrathecal baclofen pump?? Quadriplegia?? Sacral decubitus ulcer, stage IV?? Seizure-like activity?? Spinal cord injury, cervical region?? Suprapubic catheter?? Weakness?? Education Materials Below is the list of Educational Leaflet Providered with your Discharge Instructions. [employer] Patient Education - Hyponatremia?? [employer] Patient Education - Understanding Urinary Tract Infections (UTIs)?? Valuables and Belongings I fully understand and agree that [facility] accepts no responsibility for all my personal [...] to send valuables and belongings home. ?? No Valuables/Belongings: No valuables/belongings present Review of Valuable and Belonging List: With witness Date for Pt to Sign Valuables/Belongings: 06/18/24 23:17:00 ?? Other Discharge Information ? Pulmonary Rehab Status?? Pulmonary Rehab Discharge Status?? CPAP/BiPAP Mask Type: Pillows CPAP/BiPAP Mask Size: Medium Respiratory Rate: 18 br/min ? Common Emergency Awareness Tips IS [...] are strongly encouraged to quit. Please call [facility] at [phone] or [phone] ([phone]) or log in to [email or web address] for referrals to smoking cessation programs. ?? 006 Suicide & Crisis Lifeline is available 28/11 if you or someone you know needs to find a reason to keep living. By calling 941 you'll be connected to a skilled, trained counselor at a crisis center in your area. INPATIENT DISCHARGE INSTRUCTIONS SIGNATURE PAGE ADRIAN TORREZ Location:[facility] Registration Date and Time:06/18/2024 07:38 EST Primary Care Physician: Aba Linares DO, Attending Physician: Julio Faust MD, I ADRIAN TORREZ, have received the above patient education materials/instructions and have verbalized understanding. If ambulance or transport services are being used I further acknowledge being given a choice of service. ?? If you need to contact me, please call me at this number: . Patient/Alterations Expert Name: Patient/Alterations Expert Signature: Relationship to Patient: Witness Name/Signature: Date: * Kristofer Azul MD: PERFORM Event Display: Patient Education Leaflets Authored Date: [id number] Hyponatremia ?? [id number] Hyponatremia Hyponatremia means low sodium levels in the blood. This health problem most often occurs after prolonged vomiting or diarrhea. Both of these conditions cause your body to lose too much water and sodium. Hyponatremia can also result from drinking large amounts of water or using diuretics (water pills).Rarely, it can occur from: ??? Disorders of the endocrine system ??? Illegal drug use (ecstasy) ??? Some cancers, especially small cell lung cancer ??? Kidney and liver disease ??? Heart failure ??? Certain medicines Mild hyponatremia causes no symptoms. It is only found with a blood test. As sodium levels in the blood drop, symptoms start to appear. This includes weakness, confusion, muscle cramping, and seizures. Home care ??? You need to reduce your daily water intake until the problem goes away. ??? If you have been taking diuretics, you may be asked to stop taking them for a short time. ??? If you are having symptoms of weakness or confusion, don't drive or operate dangerous machinery until symptoms go away. ??? If your sodium levels are too low to be managed at home, you will be asked to go to the hospital to have your sodium replaced through your vein. ?? Follow-up care Follow up with your??healthcare provider??for a repeat blood test within the next week, or as advised. ?? When to get medical advice Call your healthcare provider if you have: ??? Increasing weakness ??? Dizziness ??? Increasing confusion ?? Call 911 Call 911 if any of the following occur: ??? Loss of consciousness ??? Seizure ??? New onset of irregular heartbeat, extra beats, or very fast heart rate ?? Last Reviewed Date: 2022 ?? [employer]. All rights reserved. This information is not intended as a substitute for professional medical care. Always follow your healthcare professional's instructions. ?? * Kristofer Azul MD: PERFORM Event Display: Patient Education Leaflets Authored Date: [id number] Understanding Urinary Tract Infections (UTIs) ?? 42094 Understanding Urinary Tract Infections (UTIs) Most UTIs are caused by bacteria. But they may also be caused by viruses or fungi. Bacteria from the bowel are the most common source of infection.??An infection may be more likely due to any of these: ??? Having sex. During sex, bacteria can go from the penis, vagina, or rectum into the urethra. ???Bacteria outside the rectum getting into the urethra. Bacteria on the skin??outside the rectum may go into the urethra. This is more common in people who were assigned female at . That's because, for them, the rectum and urethra are closer to each other than in people who were assigned male atbirth. Wiping from front to back after using the toilet can help prevent germs from getting to the urethra. So can keeping the area clean. ??? Blocked urine flow through the urinary tract. If urine sits too long, germs may start to grow out of control. ??? A new sex partner within the last year. ??? A history of recurrent UTIs and antibiotic use. ??? Use of spermicide and diaphragm. Parts of the urinary tract The infection can??occur in any part of the urinary tract. ??? The kidneys. These organs filter blood. They remove wastes and extra water to make urine. ??? The ureters. These tubes carry urine from the kidneys to the bladder. ??? The bladder. This holds urine until you're ready to pee. ??? The urethra. This tube carries urine from the bladder out of the body. It's shorter in people who were assigned female at . So, for them, bacteria can move through??it more easily.??The urethra is longer in people who were assigned male at . So a UTI is less likely to reach the bladder or kidneys for them. ?? Last Reviewed Date: 2023 ?? [id number] [employer]. All rights reserved. This information is not intended as a substitute for professional medical care. Always follow your healthcare professional's instructions. ?? * Event Display: Provider Clarification Note Please click on pdf link to open report Patient Care team information Care Team Personnel Name: Danny Whittaker RN Position: [facility] ED RN W/OE and Tasks Member Role: Primary Care Nurse Name: Drea Rodriguez RN Position: S RN Member Role: Primary Care Nurse Name: Aba Linares DO Position: Reference Physician Member Role: PCP Address: [address] [place] [address] [place] [address]- Telecom: Name: Renata Cantu RN Position: [facility] RN Supv Member Role: Primary Care Nurse Name: Magaly Allan RN Position: [facility] RN Member Role: Primary Care Nurse Name: Tesha Kirkpatrick RN Position: [facility] RN Member Role: Primary Care Nurse Name: Karoline Rader RN Position: S RN Member Role: Primary Care Nurse Name: Clay Dunham RN Position: S RN Member Role: Primary Care Nurse Name: Clay Najera RN Position: S RN Member Role: Primary Care Nurse Name: Elsi Paulino RN Position: S RN Member Role: Primary Care Nurse Name: Adriel Mahmood RN Position: S RN Member Role: Primary Care Nurse Name: Vera Patricia RN Position: S RN Member Role: Primary Care Nurse Name: Troy Ni RN Position: S RN Member Role: Primary Care Nurse Name: [place] RN Position: S RN Member Role: Primary Care Nurse Name: Ramya Bella NP Position: S Associate Professional Member Role: Lifetime Consulting Provider Address: [address] [place], [place] [address] [place] [address]- Telecom: Name: Gaby Byrd RN Position: [facility] RN Member Role: Primary Care Nurse Name: Brittnee Inman RN Position: [facility] RN Member Role: Primary Care Nurse Name: Hung Tamez DO Position: [facility] Renal MD Member Role: Lifetime Consulting Physician Address: [address] [place], [place] [address] [place], [place] [address] Telecom: Name: Cecilia Thompson RN Position: [facility] RN Member Role: Primary Care Nurse Name: Brittany Loredo RN Position: [facility] ED RN W/OE and Tasks Member Role: Primary Care Nurse Name: Cate Pantoja Position: [facility] RN Member Role: Primary Care Nurse Name: Genevieve Orozco RN Position: [facility] RN Member Role: Primary Care Nurse Name: Trudy Prakash RN Position: [facility] RN Member Role: Primary Care Nurse Name: Nicole Upton RN Position: [facility] RN Member Role: Primary Care Nurse Name: Lance Vegas RN Position: [facility] RN Member Role: Primary Care Nurse Name: Zi Soler RN Position: [facility] RN Member Role: Primary Care Nurse Name: Kenya Corrigan RN Position: [facility] RN Member Role: Primary Care Nurse Name: Eriberto Ruffin RN Position: [facility] RN Member Role: Primary Care Nurse Name: Madai Joy RN Position: [facility] RN Member Role: Primary Care Nurse Name: Urban Perrin LPN Position: [facility] RN Member Role: Primary Care Nurse Name: Sonja Cage RN Position: [facility] RN Member Role: Primary Care Nurse Name: Alec Chahal RN Position: [facility] RN Member Role: Primary Care Nurse Name: Dawson Zavala RN Position: [facility] RN Member Role: Primary Care Nurse Name: Анна Brock RN Position: [facility] RN Munir Member Role: Primary Care Nurse Care Team Related Persons Name: MIGUELTITOSEGUNDOLorettaCIRO Name: LOC BAKER Insurance Providers Guarantor name: [facility] Information #: 1 Payer: [facility] Member Number: [id number] Policy Number: NA Group Number: [employer] Health Plan Information #: 3 Payer: [facility] FF NON [employer] HMO Member Number: [id number] Policy Number: [employer] Group Number: [id number] Health Plan Information #: 2 Payer: [place] Member Number: [id number] Policy Number: [employer] Group Number: NA
--- OUTSIDE RECORDS SUMMARY | 2024-07-15 18:02 | XMS_ITS | Data Portability ---
Author Organization [facility] Home Service Address [address] [place] [address] Assessment No assessment recorded. Plan of Treatment Reminders Order Date Submit Date Provider Last Modified By Organization Details Last Modified Time Details Appointments Hospital F/U 2024 03:00P M JASMYNE PIZANO Not available Not available Not available Lab CMP, serum or plasma 2024 025 [facility], [address] [place] [address], [address], 07/15/2024 16:20:10 magnesium , serum or plasma 2024 025 [facility], [address] [place] [address], [address], 07/15/2024 16:20:10 CBC w/ auto diff 2024 025 [facility], [address] [place] [address], [address], 07/15/2024 16:20:10 urinalysi s complete, reflex culture 2023 024 [facility], [address] [place] [address], [address], 12/21/2023 15:38:46 culture, throat 2023 024 [facility], [address] [place] [address], [address], 12/20/2023 12:18:48 C diff toxin A+B, qualitati ve, stool 2023 024 [facility], [address] [place] [address], [place], [address], 12/25/2023 11:25:33 CMP, serum or plasma 2023 024 [facility], [address] [place] [address], [place], [address], 12/18/2023 15:41:27 iron + TIBC + ferritin, serum 2023 024 [facility], [address] [place] [address], [place], [address], 12/18/2023 15:41:27 CBC w/ auto diff 2023 024 [facility], [address] [place] [address], [place], [address], 04/30/2024 08:41:32 Referral gastroent erologist referral - 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 Surgeries None recorded. Imaging CT, head + brain, w/o contrast 2023 024 [facility], [address] [facility], [facility], [place], [address], 02/21/2024 08:21:00 CT, kidney, w/o contrast - needs fu with for his urology after kidney surgery for stone removal 2023 024 [email or web address] [facility] [place], [address], [address], [place], [address], 03/01/2024 08:13:24 Medication Orders diazepam 2 mg tablet 2023 024 CORNELL Thomas [address] ([facility] 827), [address] [place], [id number], 04/23/2024 15:28:45 tramadol 50 mg tablet 2023 024 CORNELL Rodney [address] ([facility] 827), [address] [place], [place], [id number], 02/14/2024 15:50:21 Patient TargetsNo targets recorded. Patient Instructions Encounter Date Encounter Id Patient Instructions Last Modified By Organization Details Last Modified Time 12/18/2023 [id number] advance care planning: care instructions [email or web address] Not available 12/18/2023 15:21:10 Reason for Referral fax [phone] Referring Physician: Ashley Price, Internal Medicine, Encounter Date: 12/18/2023 Developer Analyst Referral for At rial fibrillation needs discussion of possible watchman, given issues with afib and blood thinner Referring Physician: Ashley Price, Internal Medicine, Encounter Date: 04/23/2024 Automotive Porter Referral for Esophageal dysmotility ? 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 [email or web address] [facility] (Medical Records) [address] [place], [address], 11/29/2023 13:28:25 01/09/20 24 01/09/2024 XR, chest , 2 view No observ ation record ed. [email or web address] [facility] (Medical Records) [address] [place], [address], 01/09/2024 09:35:33 01/09/20 24 01/09/2024 CT, head + neck, w/o contr ast No observ ation record ed. [address] (Medical Records) [address] [place], [address], 01/09/2024 13:47:26 01/09/20 24 01/09/2024 CT, abdom en, w/o contr ast No observ ation record ed. [address] (Medical Records) [address] [facility], [address], 01/09/2024 13:47:48 01/09/20 24 01/09/2024 CT, chest + abdom en + pelvi s, w/o contr ast No observ ation record ed. [address] (Medical Records) [address] [facility], [address], 01/09/2024 13:48:14 01/10/20 24 01/09/2024 rhyth m EKG, 1-3 leads No observ ation record ed. [email or web address] [facility] (Medical Records) [address] [facility], [address], 01/10/2024 15:03:19 01/11/20 24 01/11/2024 XR, chest , 2 view No observ ation record ed. [email or web address] [facility] (Medical Records) [address] [facility], [address], 01/12/2024 07:02:30 01/12/20 24 01/11/2024 lumba r punct ure (PROC ) No observ ation record ed. [facility] (Medical Records) [address] [place], [address], 01/12/2024 13:29:29 01/12/20 24 01/11/2024 MRI, brain , w/o contr ast No observ ation record ed. [facility] (Medical Records) [address] [place], [address], 01/12/2024 13:50:57 01/13/20 24 01/10/2024 elect roenc ephal ogram No observ ation record ed. [email or web address] [facility] (Medical Records) [address] [place], [address], 01/14/2024 23:02:14 01/23/20 24 01/22/2024 guillermo green No observ ation record ed. [facility] (Medical Records) [address] [place], [address], 02/16/2024 13:46:16 02/09/20 24 02/09/2024 XR, pyelo gram No observ ation record ed. [facility] Diagnosit Imaging Dept [address] [place], [address], 02/16/2024 13:45:37 03/05/20 24 03/05/2024 CT, head + brain , w/o contr ast No observ ation record ed. [email or web address] [facility] [address] [place], [address], 03/05/2024 14:13:58 04/10/20 24 01/11/2024 fluor oscop ic guide d lumba r facet stero id injec tion (PROC ) No observ ation record ed. [email or web address] [facility] (Medical Records) [address] [place], [address], 04/10/2024 12:12:09 04/10/20 24 01/22/2024 guillermo bailey study No observ ation record ed. [facility] (Medical Records) [address] [place], [address], 04/10/2024 12:12:32 Result Notes None recorded. Problems Name Problem SNOMED Code Status Onset Date Resolution Date Notes Provider Name and Address Organization Details Recorded Time Tobacco dependen ce syndrome 74752340 Completed 201704/02/2019 Aba Linares, DO [address] [place], [address], [facility] 9 15:59:49 Alcohol abuse 90132267 Completed 201712/20/2017 Aba Linares, DO [address] [place], [address], [facility] 8 11:19:44 Polyp of colon 69997239 Active 2017 Not Available [facility] 3 10:33:08 History of hernia repair 28644358727 109 Active 2017 x2 Not Available [facility] 3 10:33:08 Atrial fibrilla tion 80280831 Active 2017 Not Available [facility] 3 10:33:08 Renal failure syndrome 47019963 Active 2017 Not Available [facility] 3 10:33:08 Osteoart hritis 805609489 Active 2017 Not Available [facility] 3 10:33:08 Glaucoma 11622927 Active 2017 Not Available [facility] 3 10:33:07 Gastroes ophageal reflux disease 749266897 Active 2017 Not Available [facility] 3 10:33:07 Hemorrho ids 19837903 Active 2017 Not Available [facility] 3 10:33:08 Coronary arterios clerosis 11892857 Active 2017 Not Available [facility] 3 10:33:08 Hyperten sive disorder 31555048 Active 2017 Not Available [facility] 3 10:33:07 Obesity 891822050 Active 2017 Not Available [facility] 3 10:33:08 Hyperlip idemia 52679686 Active 2017 Not Available [facility] 3 10:33:08 Abdomina l aortic aneurysm 517137498 Active 03/27 is 3.1cm Not Available [facility] 3 10:33:07 Neurogen ic urinary bladder 869980172 Active 2021 Not Available [facility] 3 10:33:08 Cholecys titis 32006748 Active 2021 Not Available [facility] 3 10:33:08 COVID-19 059497313 Active 2021 Not Available [facility] 3 10:33:08 Neuropat hy 277916363 Active 2021 Not Available [facility] 3 10:33:08 Hypotens ashley episode 57161903 Active 2021 Not Available [facility] 3 10:33:08 Constipa tion 30875620 Active 2021 Not Available [facility] 3 10:33:07 Candidia sis of skin 93461342 Active 2021 Not Available [facility] 3 10:33:08 Acute urinary tract infectio n 054165931 Active 2021 Not Available [facility] 3 10:33:08 Ingrowin g nail of toe of right foot 96176478669 604495 Active 2021 Not Available [facility] 3 10:33:07 Psoriasi s 7702311 Active 2021 Not Available [facility] 3 10:33:08 Cervical spinal cord injury 050791668 Active 2021 Not Available [facility] 3 10:33:08 Parapleg ia 51715308 Active 2022 Not Available [facility] 3 10:33:08 Anxiety 40802780 Active 2022 Not Available [facility] 3 10:33:08 Internal hemorrho ids 18866582 Active 2022 Not Available [facility] 3 10:33:08 Syncope 878591657 Active 2022 Not Available [facility] 3 10:33:07 Pain of left shoulder joint 05406042288 019829 Active 2022 Not Available [facility] 3 10:33:07 Pressure injury of buttock stage I 44905257322 044841 Active 2022 Not Available [facility] 3 10:33:07 Allergic conjunct ivitis 860475284 Active 2022 Not Available [facility] 3 10:33:08 Sepsis caused by Pseudomo og 950667761 Active 2022 Not Available [facility] 3 10:33:08 Urethral strictur e 90484738 Active 2022 Not Available [facility] 3 10:33:08 Skin lesion 30749337 Active 2023 JASMYNE PIZANO [address] [place], [address], [facility] 4 12:27:06 Cataract 271428631 Active 2023 Aba Linares DO [address] [place] [address], [address], [facility] 4 14:23:35 Allergic conjunct ivitis 762508976 Active 2023 JASMYNE PIZANO [address] [place], [address], [facility] 4 13:52:55 Recurren t urinary tract infectio n 074160402 Active 2023 Aba Linares DO [address] [place], [address], [facility] 4 22:30:00 Hyponatr emia 14777425 Active 2023 JASMYNE PIZANO [address] [place], [address], [facility] Internal [facility] 4 08:45:39 Iron deficien cy anemia 56722129 Active 2023 JASMYNE PIZANO [address] [place], [address], [facility] 4 08:45:49 Pressure injury of buttock stage IV 14197934105 340290 Active 2023 JASMYNE PIZANO [address] [place], [address], [facility] Internal [facility] 4 15:32:31 Clostrid ium difficil e colitis 786588515 Active 2023 JASMYNE PIZANO [address] [place], [address], [facility] Internal [facility] 4 15:37:24 Sore throat 491260017 Active 2023 JASMYNE PIZANO [address] [place], [address], [facility] Internal [facility] 4 15:38:00 Infectio n by Era albicans 98673702 Active 2023 JASMYNE PIZANO [address] [place], [address], [facility] 4 12:30:56 Depressi ve disorder 61962139 Active 2023 Aba Linares, DO [address] [place], [address], [facility] 4 14:06:56 Memory impairme nt 384894556 Active 2023 JASMYNE PIZANO [address] [place], [address], [facility] 4 15:41:42 Bilatera l shoulder joint pain 55829172458 669835 Active 2023 JASMYNE PIZANO [address] [place] [address], [address], [facility] 4 15:48:53 Kidney stone 69368506 Active 2023 JASMYNE PIZANO [address] [place] [address], [address], [facility] 4 15:50:22 Osteomye litis of coccyx 372492168 Active 2023 Aba Linares DO [address] [place] [address], [address], [facility] 4 15:23:34 Anemia 605835244 Active 2024 Aba Linares DO [address] [place] [address], [address], [facility] 5 09:04:44 Esophage al dysmotil ity 597836544 Active 2024 JASMYNE PIZANO [address] [place] [address], [address], [facility] 5 15:57:39 Problem Notes None recorded. Procedures Surgical History Date Name Laterality Status Provider Name and Address Organization Details Recorded Time WOUND CARE completed JASMYNE PIZANO [address] [place] [address], [address], [facility] 08/30/2021 14:12:41 022 Joint Injection completed JASMYNE PIZANO [address] [place] [address], [address], [facility] 07/23/2021 14:48:14 020 Corticosteroid Injection completed Aba Linares DO [address] [place] [address], [address], [facility] 01/03/2020 15:39:03 018 Corticosteroid Injection completed Aba Linares DO [address] [place] [address], [address], [facility] 12/04/2017 16:42:28 Imaging Results Imaging Date Name Status LastModified by Organization Details LastModified Time 11/03/2023 XR, chest, 2 view completed [address] (Medical Records) [address] [place], [address], 11/29/2023 13:28:25 01/09/2024 XR, chest, 2 view completed [email or web address] [facility] (Medical Records) [address] [place], [address], 01/09/2024 09:35:33 01/09/2024 CT, head + neck, w/o contrast completed [address] (Medical Records) [address] [place], [address], 01/09/2024 13:47:26 01/09/2024 CT, abdomen, w/o contrast completed [address] (Medical Records) [address] [place], [address], 01/09/2024 13:47:48 01/09/2024 CT, chest + abdomen + pelvis, w/o contrast completed [address] (Medical Records) [address] [place], [address], 01/09/2024 13:48:14 01/09/2024 rhythm EKG, 1-3 leads completed [facility] (Medical Records) [address] [place], [address], 01/10/2024 15:03:19 01/11/2024 XR, chest, 2 view completed [email or web address] [facility] (Medical Records) [address] [place], [address], 01/12/2024 07:02:30 01/11/2024 lumbar puncture (PROC) completed [facility] (Medical Records) [address] [place], [address], 01/12/2024 13:29:29 01/11/2024 MRI, brain, w/o contrast completed [facility] (Medical Records) [address] [place], [address], 01/12/2024 13:50:57 01/10/2024 electroencephalogram completed [address] (Medical Records) [address] [place] [address], [address], 01/14/2024 23:02:14 01/22/2024 barium swallow study completed [facility] (Medical Records) [address] [place] [address], [address], 02/16/2024 13:46:16 02/09/2024 XR, pyelogram completed [facility] Diagnosit Imaging Dept [address] [place] [address], [address], 02/16/2024 13:45:37 03/05/2024 CT, head + brain, w/ o contrast completed [address] [place], [address], 03/05/2024 14:13:58 01/11/2024 fluoroscopic guided lumbar facet steroid injection (PROC) completed [facility] (Medical Records) [address] [place] [address], [address], 04/10/2024 12:12:09 01/22/2024 barium swallow study completed [facility] (Medical Records) [address] [place] [address], [address], 04/10/2024 12:12:32 Procedure Notes None recorded. Medical Equipment None Reported. Allergies Allergen ID Allergen Name Allergen Category Reaction Reaction Severity Criticality Documentation Date Start Date Code Code System Note Provider Name and Address Organization Details Recorded Time 8611 tramadol medicatio n hallucina tions Not available Not available 04/23/2024 01474 RxNorm JASMYNE PIZANO [address] [place], [address], [facility] 4 15:09:52 Medications Name Sig Start Date Stop [...] hr TAKE 1 TABLET BY MOUTH DAILY 03/18 /2022 completed Not Available Not Available Not Available [...] Not Available No t Available Pill [facility] FOR USE WITH BACLOFEN 10 MG 07/12 completed Not Available Not Available Not Available Fleeamon Bisacodyl 10 mg/30 mL enema USE 1 [...] Not Available Not Available Not Avmonse labernesto olopatadin e 0.1 % eye drops INSTILL [...] 2020 active Not Available Not Available Not Ry labernesto Culturelle 10 billion cell capsule TAKE [...] Not Available Not Available Not Avmonse lable levofloxac in 750 mg tablet TAKE 1 TABLET BY MOUTH EVERY DAY FOR 21 DAYS active Not Available Not Available No t Available methylpred nisolone 4 mg tablets in a dose pack TAKE 6 TABLETS ON DAY 1 DIRECTED ON PACKAGE AND DECREASE BY 1 TAB EACH DAY FOR A TOTAL OF 6 DAYS 07/27 completed Not Available Not Available [...] Not Available Not Avai lable Flucelvax Quad 5019-2219 (PF) 60 mcg (15 mcg x 4)/0.5 [...] Not Available Not Available Fluzone High-Dose Quad (PF) 240 mcg/0.7 mL IM syringe 03/03 [...] Not Available Vitals Date Recorded Body height Heart rate Oxygen saturation Oxygen saturation in Arterial blood by Pulse oximetry Systolic blood pressure Diastolic blood pressure Provider Name and Address Organization Details Last Updated DateTime 4 173.36 cm 58 /min 97 % 97 % 128 mm[Hg] 80 mm[Hg] Keren Lucio [facility] 4 15:11:55 Date Recorded Body height Heart rate Oxygen saturation Oxygen saturation in Arterial blood by Pulse oximetry Systolic blood pressure Diastolic blood pressure Provider Name and Address Organization Details Last Updated DateTime 4 173.36 cm 51 /min 95 % 95 % 128 mm[Hg] 78 mm[Hg] Keren Lucio [facility] 4 15:09:19 Date Recorded Body height Oxygen saturation Oxygen saturation in Arterial blood by Pulse oximetry Heart rate Systolic blood pressure Diastolic blood pressure Provider Name and Address Organization Details Last Updated DateTime 4 173.36 cm 95 % 95 % 62 /min 100 mm[Hg] 60 mm[Hg] Cris Otto [facility] 4 14:57:17 Date Recorded Body height Body mass index (BMI) Body weight Heart rate Oxygen saturation Oxygen saturation in Arterial blood by Pulse oximetry Systolic blood pressure Diastolic blood pressure Provider Name and Address Organization Details Last Updated DateTime 4 173.36 cm 27.2 kg/m2 12989.6 3 g 66 /min 95 % 95 % 92 mm[Hg] 58 mm[Hg] Mazin Marin [facility] 4 15:04:39 Date Recorded Body height Systolic blood pressure Diastolic blood pressure Provider Name and Address Organization Details Last Updated DateTime 07/15/2024 173.36 cm 110 mm[Hg] 68 mm[Hg] Cris Otto [facility] 07/15/2024 15:09:42 Social History Question Answer Notes LastModified by Organizat ion Details LastModified Time Tobacco Smoking Status Former Smoker Aba Linares, [address] [place] [address], [address], [facility] Internal [facility] 04/02/2019 15:39:17 What Was The Date Of [...] virus, quadrivalent, preservative 1 completed Not Available [facility] 03/11/2021 16:08:46 Influenza, split virus, quadrivalent, preservative 2 completed Consuelo echeverria [facility] 03/14/2022 07:46:37 COVID-19, mRNA, LNP-S, PF, 100 mcg/0.5mL dose or 50 mcg/0.25mL dose 2 completed Consuelo echeverria [facility] 03/14/2022 07:46:47 zoster, unspecified formulation 2 completed Aba Linares DO [address] [place] [address], [address], [facility] Internal [facility] 07/12/2022 13:59:55 zoster, unspecified formulation 8 completed Fang echeverria [facility] Internal [facility] 07/12/2022 14:03:45 Influenza, split virus, quadrivalent, preservative 8 completed Not Available [facility] 03/11/2021 16:08:46 Influenza, split virus, quadrivalent, preservative 9 completed Not Available [facility] 03/11/2021 16:08:46 zoster live 9 completed Not Available [facility] 03/11/2021 16:08:46 Influenza, split virus, quadrivalent, preservative 0 completed Not Available [facility] 03/11/2021 16:08:46 COVID-19, mRNA, LNP-S, PF, 100 mcg/0.5mL dose or 50 mcg/0.25mL dose 1 completed Not Available [facility] 03/11/2021 16:08:46 COVID-19, mRNA, LNP-S, PF, 100 mcg/0.5mL dose or 50 mcg/0.25mL dose 1 completed Not Available [facility] 03/11/2021 16:08:46 Past Encounters Encounter ID Performer Location Encounter Start Date Encounter Closed Date Diagnosis/Indication Diagnosis SNOMED-CT Code Diagnosis ICD10 Code Diagnosis Note [id number] Aba Linares [facility] [address] [facility], [place] [address] 12/04/2017 16:12:34 12/07/2017 10:13:24 Osteoarthritis 861646231 M19.90 cortisone inject well tolerated if not helpful will need mri try advil and tylenol [id number] Aba Linares DO [facility] Medicine [address] [facility], [place] [address] 12/20/2017 10:17:49 12/20/2017 11:34:27 Hypertensive disorder 44630983 I10 home bp and office are excellent Osteoarthritis 382338166 M19.90 cortisone inject did great and is feeling much better try advil and tylenol Atrial fibrillation 4943 6004 I48.91 quiet and no palpitatio ns Coronary arteriosclerosis 73215833 I25.10 no cp is asymptomat ic reviewed in detail the need to tonny aware of cp syndromes and the diff variants of cp Hyperlipidemia 37239237 E78.5 highly recco he start a statin med long discussion re this [id number] Aba Linares DO [facility] Medicine [address] [facility], [place] [address] 06/06/2018 15:39:31 06/08/2018 08:53:29 Hypertensive disorder 47902914 I10 home bp and office are fair Atrial fibrillation 4943 6004 I48.91 quiet and no palpitatio ns Hyperlipidemia 03956603 E78.5 highly recco he start a statin med long discussion re this Tobacco de pendence syndrome 98465208 F17.200 still smoking Abdominal aortic aneurysm screening 850396607 Z13.6 Hepatitis C screening 41 6454395 Z11.59 Coronary arteriosclerosis 91512593 I25.10 no cp is asymptomat ic reviewed in detail the need to tonny aware of cp syndromes and the diff variants of cp Obstructiv e sleep apnea syndrome 73008274 G47.33 [id number] Aba Linares [facility] [address] [facility],[place] [address] 04/02/2019 15:33:04 04/02/2019 16:05:16 Adult health examination 018043406 Z00.00 doing great and is careful with eating encouraged to walk etc Atrial fibrillation 4943 6004 I48.91 quiet and no palpitatio ns Gastroesop hageal reflux disease 087757838 K21.9 no issues since quitting diet soda, will follow as needed Hyperlipidemia 65685729 E78.5 highly recco he start a statin med long discussion re this Coronary arteriosclerosis 19403153 I25.10 no cp is asymptomat ic reviewed in detail the need to tonny aware of cp syndromes and the diff variants of cp [id number] Aba Linares [facility] Medicine [address] [facility] [place] [address] 10/01/2019 15:49:01 10/01/2019 16:17:23 Atrial fibrillation 36339151 I48.91 quiet and no palpitatio ns Coronary arteriosclerosis 95585514 I25.10 no cp is asymptomat ic reviewed in detail the need to tonny aware of cp syndromes and the diff variants of cp Hypertensive disorder 38 011602 I10 home bp and office are fair [id number] Ab[facility]res [facility] [facility] [address], [place] [address] 12/13/2019 16:02:42 12/13/2019 17:01:26 Atrial fibrillation 02334587 I48.91 quiet and no palpitatio ns Hypertensive disorder 38 108854 I10 home bp and office are ok but has noticed an ongoing cough so we will stop the lisinopril Cough 28851178 R05 stop lisinopril if cough goes away we will substitute with losartan Left Achil les tendinitis [id number] 34892 M76.62 will do exercises and stretches and add advil on reg basis and let me know [id number] Aba Linares, DO [facility] Internal Medicine [address],[place] [address] 01/03/2020 15:05:31 01/03/2020 15:48:43 Osteoarthritis 428188194 M19.90 cortisone inject to the left knee did great and hopefully will be feeling much better try advil and tylenol as needed [id number] Aba Linares, [facility] Internal Medicine [address],[place] [address] 03/03/2020 15:22:46 03/03/2020 16:05:24 Hypertensive disorder 86554366 I10 home bp and office are ok but has noticed an ongoing cough so we will stop the lisinopril cough is still just a mild and uncommon event will chk bps at home with a new cuff and will report next visit Atrial fibrillation 4943 6004 I48.91 quiet and no palpitatio ns Abdominal aortic aneurysm screening 175501515 Z13.6 [id number] JASMYNE PIZANO [facility] Internal Medicine [address], [place] [address] 07/23/2021 14:07:20 07/27/2021 09:06:44 Dysuria 83184429 R30.9 will send out urine Pressure i njury of sacral region of back 946902404 L89.151 will start with silvadene cream Pain of ri ght shoulder joint 0530500131 5305018 M25.511 given cortisone Recurrent urinary tract infection 731087491 N30.81 will start on cranberry tablets Retrolisthesis 380283973 M43.12 C4 to C5, stable Paraplegia 75450142 G82. 22 has fu with neuro [id number] JASMYNE PIZANO [facility] Internal Medicine [address] [facility] [place] [address] 08/30/2021 13:18:11 08/30/2021 14:20:59 Constipation 81174459 K59.01 will hold XRwill continue Miralax and doculax with the patientmon itor bowel movementma y need XR Acute urin kwame tract infection 357546677 N39.0 N10 will need to continue abx, last day is tomorrowur ine is yellow and clear today Ingrowing nail of toe of right foot 2004182448 9846184 L60.0 dressed in officefu with podiatry [id number] Aba Linares DO [facility] Internal Medicine [address],[place] [address] 02/28/2022 13:59:42 02/28/2022 16:01:10 Atrial fibrillation 04923877 I48.91 quiet and no palpitatio ns Hepatitis C screening 41 0290749 Z11.59 Hyperlipidemia 31903779 E78.5 highly recco he start a statin med long discussion re this Hypertensive disorder 38 332924 I10 home bp and office are ok but has noticed an ongoing cough so we will stop the lisinopril cough is still just a mild and uncommon event will chk bps at home with a new cuff and will report next visit Active or passive immunization 582031891 Z23 patient advised he is due for flu, tdap, pneu & shingles Psoriasis 5458262 L40.9 [id number] JASMYNE PIZANO [facility] Internal Medicine [address], [place] [address] 05/31/2022 15:22:17 06/01/2022 09:24:55 Pre-surgery evaluation 187092038 Z01.818 The patient was seen in the office today for pre-op evaluation . All medical conditions on patient's problem list were addressed and are currently stable, no interventi on needed at this time. Based on history and physical performed, the patient is cleared for surgery. Cervical s usman cord injury 813157487 S14.109D stable Chronic ob structive pulmonary disease 59660265 J41.1 stable Hypertensive disorder 38 692277 I10 stable [id number] Aba Linares DO [facility] Internal Medicine [address],[place] [address] 07/12/2022 13:51:01 07/12/2022 14:24:01 Chronic obstructive pulmonary disease 57467233 J41.1 no issue with breathingh ad been seen by pulmonary for the dimas and copd using nasal pillows Hypertensive disorder 38 434249 I10 home bp and office are ok but has noticed an ongoing cough so we will stop the lisinopril cough is still just a mild and uncommon event will chk bps at home with a new cuff and will report next visit Atrial fibrillation 4943 6004 I48.91 quiet and no palpitatio ns Hyperlipidemia 25526390 E78.5 highly recco he start a statin med long discussion re this Paraplegia 72355036 G82. 22 has noted his contractio ns of the upper limb Advance care planning 71 5294055 Z71.89 done Coronary arteriosclerosis 62042457 I25.10 no cp is asymptomat ic reviewed in detail the need to tonny aware of cp syndromes and the diff variants of cp Cervical s usman cord injury 768327602 S14.109D his skin remains free of decubiti at the presentno swallow issues [id number] Aba Linares [facility] Internal Medicine [address],[place] [address] 08/23/2022 10:52:48 08/23/2022 12:00:28 Syncope 366114554 R55 [id number] JASMYNE PIZANO [facility] Internal Medicine [address],[place] [address] 12/23/2022 11:33:33 12/23/2022 14:20:43 Anxiety 99691468 F41.1 stable Atrial fibrillation 4943 6004 I48.11 stable Constipation 55701907 K5 9.01 no change Gastroesop hageal reflux disease 158117490 K21.9 stable Hemorrhoids 03054897 K64 .1 stable Hyperlipidemia 67150770 E78.2 stable Hypertensive disorder 38 399079 I10 stable [id number] Aba Linares [facility] Internal Medicine [address],[place] [address] 01/27/2023 13:54:48 01/27/2023 15:48:08 Abdominal aortic aneurysm 251355664 I71.40 Atrial fibrillation 4943 6004 I48.11 quiet and no palpitatio ns Chronic ob structive pulmonary disease 49536094 J41.1 no issue with breathingh ad been seen by pulmonary for the dimas and copd using nasal pillows Hyperlipidemia 34013699 E78.2 highly recco he start a statin med long discussion re this Hypertensive disorder 38 109538 I10 home bp and office are ok but has noticed an ongoing cough so we will stop the lisinopril cough is still just a mild and uncommon event will chk bps at home with a new cuff and will report next visit Pressure i njury of buttock stage I 2355186538 5742282 L89.309 wound care nurse [id number] JASMYNE PIZANO [facility] Internal Medicine [address], [place] [address] 03/27/2023 15:15:03 03/27/2023 16:27:30 Sepsis caused by Pseudomonas 733030270 A41.52 resolved Urethral stricture 69291 002 N35.119 ? anatomical issues Suprapubic urinary catheter in situ 149861443 Z96.[address]. ? correct placement [id number] Aba Linares DO [facility] Internal Medicine [address], [place] [place] [address] 07/28/2023 13:42:45 07/28/2023 14:42:41 Atrial fibrillation 35562346 I48.11 quiet and no palpitatio ns Hypertensive disorder 38 562000 I10 home bp and office are ok but has noticed an ongoing cough so we will stop the lisinopril cough is still just a mild and uncommon event will chk bps at home with a new cuff and will report next visit Coronary arteriosclerosis 62756693 I25.10 no cp is asymptomat ic reviewed in detail the need to tonny aware of cp syndromes and the diff variants of cp Pressure i njury of buttock stage I 0993464560 7667086 L89.309 wound care nurse treating with silvadene Cataract 382694116 H26.9 [id number] JASMYNE PIZANO [facility] Internal Medicine [address] [address] 12/18/2023 15:02:22 12/18/2023 16:09:34 Sepsis caused by Pseudomonas 377830090 A41.52 resolved Acute urin kwame tract infection 195711260 N30.81 will set up with Hyponatremia 46835091 E8 7.1 Iron defic iency anemia 19250520 D50.0 will recheck his blood work Suprapubic urinary catheter in situ 531813568 Z96.0 causing the recurrent UTI plus due to the kidney stones Chronic ob structive pulmonary disease 81163372 J41.1 stable At [facility] ed risk for falls 529526425 Z91.81 stable today in office 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 0884384017 0975044 L89.304 will set up with fax number per his Demian crane difficile colitis 592032379 A04.72 will need to be retested after finishing abx Sore throat 362602155 J0 2.8 swab taken [id number] JASMYNE PIZANO [facility] Internal Medicine [address],[place] [address] 02/14/2024 14:47:38 02/14/2024 15:59:32 Atrial fibrillation 42705951 I48.11 quiet and no palpitatio ns Memory impairment 830094 006 R41.3 [address] up with CT scan Bilateral shoulder joint pain 3735435621 9324830 M25.511 PRN tramadol Kidney stone 89287377 N2 0.[address] up [address] for uro to get it scheduled sooner Anxiety 33445895 F41.1 d/c bupropion [id number] JASMYNE PIZANO [facility] Internal Medicine [address], [place] [address] 04/23/2024 14:49:10 04/23/2024 16:26:14 Paraplegia 53159188 G82.22 stable Memory impairment 797216 [address] Atrial fibrillation 4943 6004 I48.11 will have to change his cardiologi st over [facility] since [facility] doesn't seem clear about the watchman procedure Bilateral shoulder joint pain 3477844766 5221835 M25.511 will set up with small script for the muscle pain [id number] Aba Linares DO [facility] Internal Medicine [address] [address] 04/29/2024 14:53:46 04/29/2024 15:33:04 Pre-surgery evaluation 118376323 Z01.818 per the 2020 ACC cardiac risk stratifica tion, this patient is deemed a low risk for the cataract surgery under the condition that hIS IV antibiotic is finished treating the coccyx infection caused by a decubitust his should be finished on the of this month . He can not undergo surgery if still receiving ths treatment. [id number] JASMYNE PIZANO [facility] Internal Medicine [address] [address] 07/15/2024 14:45:27 07/15/2024 16:07:22 Esophageal dysmotility 140012674 K22.4 will set up with GI consult Hyponatremia 49489616 E8 7.1 will set up with fu lab work Health Concerns Section Related Observation LastModified by Organization Detai ls LastModified Time None Recorded Concern Status LastModified by Organization Details LastModified Time None Recorded Advance Directives Directive None Recorded Payers Encounter Date Sequence Insurance Name Policy Number Policy Kahn Covered Member ID Kahn Member ID Guarantor Name 12/18/2023 1 [facility] [id number] Eran C Choquette [id number] Eran Choquette 02/14/2024 1 [facility] [id number] Eran C Choquette [id number] Eran Choquette 04/23/2024 1 [facility] [id number] Eran C Choquette [id number] Eran Choquette 04/29/2024 1 [facility] [id number] Eran C Choquette [id number] Eran Choquette 07/15/2024 1 [facility] [id number] Eran C Choquette [id number] Eran Choquette Notes Date Note Type Note Provider Name and Address Organization Details Recorded Time text/html TCM 7 patient developed acute onset mental status changePMH significant for paraplegia, chronic suprapubic catheter, hx of sepsis related to pseudomonas UTI, afib, and chronic respiratory failure patient was febrile with elevated WBC, hyponatremia, and findings of UTI on urinalysisnegative for flu, RSV, COVID was admitted under sepsis protocol, had another pseudomonas UTI, started on IV zosyn for 10 days of which he was admitted for the full 10 day treatment lengthgiven 1 U PRBC and IV iron for 3 days after finding of significant iron def anemia in the setting of cystitis with a patient on eliquis, eliquis was held until discharge needs outpatient f/u with Dr. Rodrigues (urology) given persistant issues with UTIs in relation to his cathether, was previously tried on oxybutynin resulting in need of the suprapubic catheter due to urethral leakage was restarted on oxybutynin 5 mg, eliquis, started on ferrous sulfate 324 mg (65 mg) QDno other medications adjusted, continue as prior to inpatient care needs f/u lab work to assess sodium and iron levelsneeds repeat urinalysis TODAY:the patient reports that he has a pressure ulceradjusted wound care referral needs lab workadjusted eliquis dose2.5 mg of eliquis BID due to the significant bleeding he is having in his urine otherwise has surgery scheduled Monday, 12/24 at 7:30 am JASMYNE PIZANO [address] [place], [address], [facility] Internal Medicine 12/18/2023 15:52:14 4 text/html hospital f/u the patient reports that he is doing okaywas in the hospital for 17 days has uro fuwill take over CT to get sooner appt having slurred speech, Mental status changesrecommended fu CT d/c bupropion start tramadol PRN for shoulder pain instructions written JASMYNE PIZANO [address] [place], [address], [facility] Internal Medicine 02/14/2024 15:54:59 4 text/html TCM the patient was in the hospital due to ongoing issues with wound and infection of the pressure injury wound that he has to see ID for on Monday he is having the hematuria again due to the blood thinner being added again to the regimen due to afiburology recommended f/u with cardio to discuss alt previous appt with cardio ROLE PLAYER recommended watchman, having issues with the doc at [facility] who keeps referring them back to have uro f/u with a watchman which is not something done by uro recommended cardio [facility] for more information and follow through with the watchman procedure needed DME order for trash bags for his medical waste disposal, given order to be given 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 tramadol caused hallucinations added to listshoulder still causing paincan cont APAP > added valium for msk relaxer since he hasn't had issues JASMYNE PIZANO [address] [place], [address], [facility] Internal Medicine 04/23/2024 16:14:59 4 text/html Pre-OpReported bypatient.Risk Factorsno cognitive impairment; no functional impairment; no malnutrition; no frailty; able to climb a flight of stairs (exercise capacity>4 METS); no obstructive sleep apnea; non-smoker; no alcohol misuse; no illicit drug use; no chronic cardiopulmonary condition; not obese Anesthesia hx:no hx of anesthesia complications; no allergy to anesthetic agents; no family history of anesthesia complications Functional Ability:able to walk up stairs; able to perform heavy work around the house; no difficulty walking up hills; able to walk 4 mph Aba Linares DO [address] [place], [address], [facility] Internal Medicine 04/29/2024 15:31:19 5 text/html hospital f/u patient has pressure [...] having hypotension due to thishas fu with production artist, having watchman donehas midodrine, doesn't like the side effects the patient reports that the wound is deepeningthe patient reports that he is having issues swallowing, tends to sip water after everything, the patient the patient reports that he is doing okaythe patient denies depression though he seems like he is depressedthe patient reports that JASMYNE PIZANO [address] [place] [address], [place], [address], [facility] 07/15/2024 16:05:26
--- OUTSIDE RECORDS SUMMARY | 2024-07-15 18:02 | XMS_ITS ---
Author Organization [facility] Care Team Providers Care All Source Intelligence Technician Name Role Phone Zaira Gross Unavailable Unavailable Jacob Marquez Unavailable Unavailable Marbin Kirkpatrick Unavailable Unavailable Allergies and adverse reactions No Known Allergies Care Team Name Role Address Phone Organization Dates Zaira Gross PCP [address] [place], [address], [facility] (Office): : [facility] 02/03/2021 - 02/16/2021 Jacob Marquez Attending Physician [place] (Office): [facility] 02/03/2021 - 02/16/2021 Marbin Kirkpatrick Attending Physician [address] [place], [address], [facility] (Office): [facility] 02/03/2021 - 02/16/2021 Immunizations Immunization Status Vaccine Details Vaccine Code CodeSystem Date Notes Influenza completed Influenza, split virus, trivalent, injectable, contains preservative 141 CVX created date: 02/03/2021 administere d date: 01/20/2021 PPSV23 (Previous Pneumococcal Polysaccharide)Tx ccine completed pneumococcal polysaccharide vaccine, 23 valent 33 CVX created date: 02/03/2021 administere d date: 12/22/2011 SARS-COV-2 (COVID-19) completed SARS-COV-2 (COVID-19) vaccine, mRNA, spike protein, LNP, preservative free, 100 mcg/0.5mL dose or 50 mcg/0.25mL dose Mfg: Moderna Given 0.5 ml intramuscularly Step 2 of Multi-step with next step required 207 CVX created date: 02/03/2021 administere d date: 08/01/2020 SARS-COV-2 (COVID-19) completed SARS-COV-2 (COVID-19) vaccine, mRNA, spike protein, LNP, preservative free, 100 mcg/0.5mL dose or 50 mcg/0.25mL dose Mfg: Moderna Given 0.5 ml intramuscularly Step 1 of Multi-step with next step required 207 CVX created date: 02/03/2021 administere d date: 07/04/2020 Mental Status Section Date Assessment Total Score Description 02/16/2021 CAM 0 No delirium ind icated 02/08/2021 BIMS 15 cognitively int act CAM 0 No delirium ind icated PHQ-9 02 minimal depress ion Problems Problem # Description Date of onset Resolved Date Code CodeSystem Concern Status 1 URINARY TRACT INFECTION, SITE NOT SPECIFIED [address] active 2 CHRONIC OBSTRUCTIVE PULMONARY DISEASE WITH (ACUTE) EXACERBATION [address] active 3 CHRONIC OBSTRUCTIVE PULMONARY DISEASE, UNSPECIFIED [address] active 4 GASTRO-ESOPHAGEAL REFLUX DISEASE WITHOUT ESOPHAGITIS [address] active 5 MORBID (SEVERE) OBESITY DUE TO EXCESS CALORIES [address] active 6 MUSCLE WEAKNESS (GENERALIZED) [address] active 7 OTHER LACK OF COORDINATION [address] active 8 PSEUDOMONAS (AERUGINOSA) (MALLEI) (PSEUDOMALLEI) THE CAUSE OF DISEASES CLASSIFIED ELSEWHERE [address] active 9 QUADRIPLEGIA, UNSPECIFIED [address] active 10 RESISTANCE TO MULTIPLE ANTIMICROBIAL DRUGS [address] active 11 UNSPECIFIED ATRIAL FIBRILLATION [address] active Reason for Referral No Reasons for Referral Entered Social History Social History Observation Description Start Date End Date Code Code System Current Smoking Status Tobacco smoking consumption unknown 819769374 SNOMED CT Sex Assigned At Male 1950 [address]15-9 [facility] Vital Signs Code Code System Vitals Name Values and Units Timing Information 74088-3 [facility] Pain Level Value=0.0 02/16/2021 9279-1 [facility] Respiratory Rate Value=18.0 Units=/m in 02/15/2021 8462-4 [facility] Blood Pressure-Diastolic Value=70 Un its=mmHg 02/15/2021 8480-6 [facility] Blood Pressure-Systolic Bazbm=484 Un its=mmHg 02/15/2021 8310-5 [facility] Body Temperature Value=97.7 Units=?? F 02/15/2021 8867-4 [facility] Heart rate Value=60.0 Units=/min 03/2021 44037-7 [facility] O2 % BldC Oximetry Value=94.0 Units= % 02/15/2021 8302-2 [facility] Height Value=69.0 Units=Inches 02/08/2021 24674-8 [facility] Weight Btcie=207.9 Units=Lbs 08/2020
--- OUTSIDE RECORDS SUMMARY | 2024-07-15 18:02 | XMS_ITS | Encounter Summary ---
Author Organization [facility] Address [address] [place] [address] Care Team Providers Care Relations Mgr Name Role Phone Pcp, No Primary Care Provider Unavailabl e Encounter Details Date Type Department Care Team (Late st Contact Info) Description 07/22/2021 Scanned Document [facility] General Surgery [facility] [address] [place] [address] Dorie Callahan APRN [facility] [place] [address] Social History Tobacco Use Types Packs/Day Years Used Date Smoking Tobacco: Never Assessed Smokeless Tobacco: Never Alcohol Use Standard Drinks/Week Comments Not Currently 0 (1 standard drink = 0.6 oz pur e alcohol) Sex and Gender Information Value Date Recorded Sex Assigned at Not on file Gender Identity Not on file Sexual Orientation Not on file documented as of this encounter Plan of Treatment Not on file documented as of this encounter Visit Diagnoses Not on filedocumented in this encounter Care Teams Relations Mgr Relationship Specialty Start Date End Date Pcp, No PCP - General General Medicine 04/10/21 documented as of this encounter
--- OUTSIDE RECORDS SUMMARY | 2024-07-15 18:02 | XMS_ITS | Continuity of Care Document ---
Author Organization [facility] Address [address] [place] [phone]- Care Team Providers Care Hunting Sales Associate Name Role Phone Milagros CHUNG Aba Gee Primary Care Physician Encounter [facility] Date(s): 05/31/24 - 06/30/24 [facility] [address] [place] [address]- Attending Physician: AdmHector [email or web address] Admitting Physician: Admtr, Ar8 Referring Physician: Admtr, Ar8 Encounter Type: Triage Allergies, Adverse Reactions, Alerts [...] virus vaccine, inactivated 04/17/16 Rohit rded SARS-CoV-2(COVID-19)mRNA-LNP vac([id number]) 02/24/24 Recorded SARS-CoV-2(COVID-19)mRNA-LNP vac([id number]) 04/15/23 Recorded RSV vaccine preF3, recombinant 04/15/23 Recorded [id number] bivalent booster vax 03/10/22 Recorded zoster vaccine, [...] 11:37:00 AM EST, Route to Pharmacy Electronically, [facility], Partial fill upon patient request [...] 10:52:00 AM EST, Route to Pharmacy Electronically, [facility], Partial fill upon patient [...] antibiotics on Monday and fax results to [facility] ID [phone] and PCP, 04/08/24 2:27:00 PM EST, Supply [...] Unit: kit Repeat number: 1 nystatin topical [id number] u/gm powder APPLY TOPICALLY TO THE AFFECTED AREA TWICE A DAY Start Date: 03/26/24 Status: Ordered Repeat number: 1 pantoprazole 40 mg oral delayed release tablet 1 tablet = 40 mg, By Mouth, 2 times a day, # 120 tablet, 0 Refills, Maintenance, 06/05/24 9:51:00 AMEST, CR Tablet Start Date: 06/05/24 Status: Ordered Quantity: 120.0 Unit: tablet Repeat number: 1 Please provide 28/11 CONTRACT PROGRAMMER care and weekly VNA visits for medication management. Please provide 28/11 CONTRACT PROGRAMMER care and weekly VNA visits for medication [...] Confirmed Active Constipation Confirmed Active CAD in [place] artery Confirmed Active Presence of intrathecal baclofen [...] on: 12/12/23 Sex Sex Representation Male (finding) Laboratory * Event Display: Non Lab Results Authored Date: Patient Care team information Care Team Personnel Name: Danny Whittaker RN Position: [facility] ED RN W/OE and Tasks Member Role: Primary Care Nurse Name: Drea Rodriguez RN Position: [facility] RN Member Role: Primary Care Nurse Name: Aba Linares DO Position: Reference Physician Member Role: PCP Address: [address] [place] [address] Internal Medicine [address] Telecom: Name: Renata Cantu RN Position: [facility] RN Supv Member Role: Primary Care Nurse Name: Magaly Allan RN Position: [facility] RN Member Role: Primary Care Nurse Name: Tesha Kirkpatrick RN Position: [facility] RN Member Role: Primary Care Nurse Name: Karoline Rader RN Position: [facility] RN Member Role: Primary Care Nurse Name: Clay Dunham RN Position: [facility] RN Member Role: Primary Care Nurse Name: Clay Najera RN Position: [facility] RN Member Role: Primary Care Nurse Name: Elsi Paulino RN Position: [facility] RN Member Role: Primary Care Nurse Name: Adriel Mahmood RN Position: [facility] RN Member Role: Primary Care Nurse Name: Vera Patricia RN Position: [facility] RN Member Role: Primary Care Nurse Name: Troy Ni RN Position: [facility] RN Member Role: Primary Care Nurse Name: [place] RN Position: [facility] RN Member Role: Primary Care Nurse Name: Ramya Bella NP Position: [facility] Associate Professional Member Role: Lifetime Consulting Provider Address: [address] [facility] [place] [address]- Telecom: Name: Gaby Byrd RN Position: S RN Member Role: Primary Care Nurse Name: Brittnee Inman RN Position: S RN Member Role: Primary Care Nurse Name: Hung Tamez DO Position: [facility] Renal MD Member Role: Lifetime Consulting Physician Address: [address] [place] [address] [address] [facility] [place] [address]- Telecom: Name: Cecilia Thompson RN Position: [facility] RN Member Role: Primary Care Nurse Name: Brittany Loredo RN Position: S RN Member Role: Primary Care Nurse Name: Cate Pantoja Position: [facility] RN Member Role: Primary Care Nurse Name: Genevieve Orozco RN Position: S RN Member Role: Primary Care Nurse Name: Trudy Prakash RN Position: S RN Member Role: Primary Care Nurse Name: Nicole Upton RN Position: [facility] RN Member Role: Primary Care Nurse Name: Lance Vegas RN Position: [facility] RN Member Role: Primary Care Nurse Name: Zi Soler RN Position: [facility] RN Member Role: Primary Care Nurse Name: Kenya Corrigan RN Position: [facility] RN Member Role: Primary Care Nurse Name: Eriberto Ruffin RN Position: [facility] RN Member Role: Primary Care Nurse Name: Madai Joy RN Position: [facility] RN Member Role: Primary Care Nurse Name: Urban Perrin LPN Position: [facility] RN Member Role: Primary Care Nurse Name: Sonja Cage RN Position: [facility] RN Member Role: Primary Care Nurse Name: Alec Chahal RN Position: [facility] RN Member Role: Primary Care Nurse Name: Dawson Zavala RN Position: [facility] RN Member Role: Primary Care Nurse Name: Анна Brock RN Position: [facility] RN Munir Member Role: Primary Care Nurse Care Team Related Persons Name: CARILorettaCIRO Name: FARNAZ HANNAH Insurance Providers Guarantor name: [facility] Plan Information #: 1 Payer: MEDICARE A INPT 25 Member Number: NA Policy Number: NA Group Number: NA
--- OUTSIDE RECORDS SUMMARY | 2024-07-15 18:02 | XMS_ITS | Encounter Summary ---
Author Organization [facility] Address [address] [place] [phone] Care Team Providers Care Boiler Attendant Name Role Phone Aba Linares Primary Care Provider [phone] Encounter Details Date Type Department Care Team ([facility] st Contact Info) Description 03/10/2021 Scanned Document INTERFACE DEFAULT [address] [place] [address] System, Provider Not In Social History Tobacco Use Types Packs/Day Years Used Date Smoking Tobacco: Never Assessed Sex and Gender Information Value Date Recorded Sex Assigned at Not on file Legal Sex Male 2:29 PM EDT Gender Identity Not on file Sexual Orientation Not on file COVID-19 Exposure Response Date Recorded In the last month, have you been in contact with someone who was confirmed or suspected to have Coronavirus / COVID-19? No / Unsure 03/10/2021 4:24 PM EDT documented as of this encounter Plan of Treatment Not on file documented as of this encounter Procedures Procedure Name Priority Date/Time Associated Diagnosis Comments US RESULT SCAN 03/10/2021 12:00 AM EDT documented in this encounter Results * US RESULT SCAN (03/10/2021 12:00 AM EDT) 03/10/2021 us Provider Not In System IMG SCAN REPORTS Final Re sult documented in this encounter Visit Diagnoses Not on filedocumented in this encounter Additional Health Concerns Infection Onset Date Last Indicated Resolved Time R/O COVID-19 03/10/2021 03/10/2021 03/10/2021 6:55 PM EDT documented as of this encounter Care Teams Boiler Attendant Relationship Specialty Start Date End Date MilagrosAba DO [address] [facility] [place] [id number] PCP - General Internal Medicine 03/10/21 documented as of this encounter
--- OUTSIDE RECORDS SUMMARY | 2024-07-15 18:02 | XMS_ITS | Clinical Summary ---
Author Organization [facility] [place] [address] Care Team Providers Care Mosaic Worker Name Role Phone Unavailable Primary Care Provider Unavailabl e Surgical History Surgery Date Site/Laterality Comments MULTIPLE TOOTH EXTRACTIONS PROCEDURE: EACH ADD TOOTH EXTRACTION; COMMENT: REMOVAL TOP TEETH Medical History Medical History Date Comments Essential hypertension, benign 01/31/2007 D X:Essential hypertension, benign Alcohol abuse, unspecified 01/31/2007 DX:Al cohol abuse, unspecified Family History Relation Name Status Comments Brother 1 Alive ETOH Brother 2 Alive 3 BROTHERS WITH DM Father (Age 68) EMPHYSEMA- SMOKER,DM Maternal Grandfather Maternal Grandmother Mother Alive DM, SKIN CA Paternal Grandfather Paternal Grandmother Social History Tobacco Use Types Packs/Day Years Used Date Smoking Tobacco: Every Day Cigarettes Alcohol Use Standard Drinks/Week Comments Yes 0 (1 standard drink = 0.6 oz pur e alcohol) Sex and Gender Information Value Date Recorded Sex Assigned at Not on file Legal Sex Male 1:29 PM EST Gender Identity Not on file Sexual Orientation Not on file Obstetrics History Last Filed Vital Signs Vital Sign Reading Time Taken Comments Blood Pressure 101/58 07/22/2021 10:48 AM EDT Pulse 60 07/22/2021 10:48 AM EDT Temperature - - Respiratory Rate - - Oxygen Saturation - - Inhaled Oxygen Concentration - - Weight 95.3 kg (210 lb) 07/22/2021 10:48 AM EDT Height 172.7 cm (5' 8 ) 07/22/2021 10:48 AM EDT Body Mass Index 31.93 07/22/2021 10:48 AM EDT Plan of Treatment Health Maintenance Due Date Last Done Comments Hepatitis A Vaccines (1 of 2 - Risk 2-dose series) 08/08/1971 Pneumococcal Vaccine: 50+ Ye ars (1 of 2 - PCV) 08/08/1971 Zoster Vaccines (1 of 2) 2002 DTaP,Tdap,and Td Vaccines (2 - Td or Tdap) 04/21/2013 04/21/2003 Abdominal Aortic Aneurysm (A AA) Screen 04/05/2022 Cholesterol Screening (Lipid Panel) 04/05/2022 Colorectal Cancer Screening: Stool Based Tests (FOBT/FIT) 04/05/2022 Depression Screening 04/05/2022 Falls Risk Assessment 04/05/2022 Hepatitis C Screening 04/05/2022 Social Influencers of Health Screening 04/05/2022 Hypertension/CHF/CAD Annual BMP Blood Test 06/22/2023 COVID-19 Vaccine ( - 2023-2 5 season) 2024 Influenza Vaccine (#1) 2024 RSV Immunization Patients 60 + Years Old (1 - 1-dose 75+ series) 08/08/2027 HIB Vaccines Aged Out No longer eligi ble based on patient's age to complete this topic HPV Vaccines Aged Out No longer eligi ble based on patient's age to complete this topic Hepatitis B Vaccines Aged Out No long er eligible based on patient's age to complete this topic IPV Vaccines Aged Out No longer eligi ble based on patient's age to complete this topic MMR Vaccines Aged Out No longer eligi ble based on patient's age to complete this topic Meningococcal ACWY Vaccine Aged Out N o longer eligible based on patient's age to complete this topic Meningococcal B Vacine Aged Out No lo nger eligible based on patient's age to complete this topic RSV Immunization Patients Un rusty 20 months Aged Out No longer eligible b ased on patient's age to complete this topic Varicella Vaccines Aged Out No longer eligible based on patient's age to complete this topic Advance Directives Documents on File Type Date Recorded 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 Health Care Decision (hx) 10/07/2020 AD GUARDADO DIRECTIVE Health Care Decision (hx) 10/07/2020 AD GUARDADO DIRECTIVE Health Care Decision (hx) 10/07/2020 AD GUARDADO DIRECTIVE Health Care Decision (hx) 10/07/2020 AD GUARDADO DIRECTIVE Health Care Decision (hx) 10/07/2020 AD GUARDADO DIRECTIVE Health Care Decision (hx) 09/25/2020 AD GUARDADO DIRECTIVE Health Care Decision (hx) 09/25/2020 AD GUARDADO DIRECTIVE Health Care Decision (hx) 09/25/2020 AD GUARDADO DIRECTIVE Health Care Decision (hx) 09/25/2020 AD GUARDADO DIRECTIVE Health Care Decision (hx) 09/25/2020 AD GUARDADO DIRECTIVE Health Care Decision (hx) 09/11/2020 AD GUARDADO DIRECTIVE Health Care Decision (hx) 09/11/2020 AD GUARDADO DIRECTIVE Health Care Decision (hx) 09/11/2020 AD GUARDADO DIRECTIVE Health Care Decision (hx) 09/11/2020 AD GUARDADO DIRECTIVE Health Care Decision (hx) 09/11/2020 AD GUARDADO DIRECTIVE
--- OUTSIDE RECORDS SUMMARY | 2024-07-15 18:02 | XMS_ITS | Clinical Summary ---
Author Organization [facility] Address [address] [place] [address] Care Team Providers Care Logistics Intern Name Role Phone Pcp, No Primary Care Provider Unavailabl e Allergies No known active allergies Medications Medication Sig Dispensed Refills Start Date End Date Status acetaminophen (TYLENOL) 325 MG tablet Take 650 mg by mouth every 4 (four) hours as needed for mild pain or fever. 02/01/2021 Active bisacodyl (DULCOLAX) 10 MG suppository Insert 10 mg into the rectum every evening. 1900 Active docusate sodium (COLACE) 100 MG capsule Take 100 mg by mouth 2 (two) times a day. Active gabapentin (NEURONTIN) 300 MG capsule Take 300 mg by mouth 2 (two) times a day. 02/01/2021 Active melatonin 3 MG Tab tablet Take 9 mg by mouth nightly. 02/01/2021 Active Multiple Vitamin (Multi-Vitamin) tablet Take 1 tablet by mouth daily. 02/01/2021 Active rivaroxaban (XARELTO) 20 MG tablet Take 20 mg by mouth every evening with dinner. Active senna (senna) 8.6 MG Tab tablet Take 1 tablet by mouth daily. 1300 Active aluminum-magnesium hydroxide-simethico ne (aluminum-magnesium hydroxide-simethico ne) suspension Take 30 mL by mouth 4 times daily (every 6 hours) as needed for indigestion or heartburn. Active magnesium hydroxide (MILK OF MAGNESIA) 400 mg/5 mL suspension Take 30 mL by mouth daily as needed for constipation. Active polyethylene glycol (polyethylene glycol) 17 g packet Take 17 g by mouth 2 times daily (every 12 hours) as needed for constipation. Active baclofen (LIORESAL) 5 MG tablet Take 7.5 mg by mouth 3 (three) times a day. Active simethicone (MYLICON) 80 MG chewable tablet Chew 80 mg 4 (four) times a day. Active ascorbic acid (ascorbic acid) 250 MG tablet Take 250 mg by mouth daily. Active PANTOprazole (PROTONIX) 40 MG EC tablet Take 40 mg by mouth every morning before breakfast. Active UNABLE TO FIND Take 1 tablet by mouth daily. Psyllium Hydrophilic Mucilloid Active midodrine (ProAmatine) 5 MG tablet Take 15 mg by mouth 2 (two) times a day. Take during daytime hours. Active naloxone (NARCAN) 0.4 mg/mL injectionIndication s:Cholecystitis Infuse 1 mL (0.4 mg total) into a venous catheter every 5 (five) minutes as needed for opioid reversal or respiratory depression. 1 mL 04/16/2021 Active psyllium (METAMUCIL) 58.12 % Pack packetIndications:C holecystitis Take 1 packet by mouth daily. 30 packet 04/16/2021 Active senna-docusate (SENNA-S) 8.6-50 MGIndications:Isabel cystitis Take 1 tablet by mouth daily. 30 tablet 04/16/2021 Active nirmatrelvir-ritona vir (PAXLOVID EMERGENCY USE) therapy packIndications:COV ID-19 Take 3 Tablets - 300 mg Nirmatrelvir (2 x 150 mg tablets) with 100 mg Ritonavir (1 x 100 mg tablet) twice daily by mouth for 5 Days. Dispense #20 Nirmatrelvir 150 mg Tablets and #10 Ritonavir 100 mg tablets. 30 tablet 05/25/2021 Active apixaban (ELIQUIS) 5 MG tablet Take 5 mg by mouth 2 (two) times a day. Active Active Problems Problem Noted Date Diagnosed Date Suprapubic catheter 04/12/2021 Acute calculous cholecystitis 04/12/2021 Neurogenic orthostatic hypotension 04/12/2021 Transaminitis 04/12/2021 Presence of intrathecal baclofen pump 04/12/2021 Traumatic fracture of cervical spine 04/12/2021 Constipation 04/12/2021 Neurogenic bladder 03/11/2021 Chronic obstructive pulmonary disease, unspecifi ed 02/03/2021 Gastro-esophageal reflux disease without esophag itis 02/03/2021 Tetraplegia 02/03/2021 Atrial fibrillation 12/11/2020 Overview (04/12/2021): Last Assessment & Plan: Atrial Fibrillation - Rate: HR x<110 at rest with no upper limit on exertion, self rate controlled - Rhythm: NSR since admission - ATC: Restarted Xarelto 20mg qD on 12/10. It was initially held for SBT placement on 12/08. It continued to be held due to concern for occult bleed. Patient does not have any obvious signs of bleeding at this time. CTAP w/o any evidence of hematomas or active extravasation. - CHADsVASC score of 1 unclear when initiated and what other risk factors for this particular patient. Anemia of chronic disease 12/10/2020 Overview (04/12/2021): Last Assessment & Plan: - Iron studies c/w ACD - Restarted Xarelto on 12/10 PM given no signs of overt bleeding. Resolved Problems Problem Noted Date Diagnosed Date Resolved Date Sepsis 04/11/2021 07/20/2023 Social History Tobacco Use Types Packs/Day Years Used Date Smoking Tobacco: Never Assessed Smokeless Tobacco: Never Alcohol Use Standard Drinks/Week Comments Not Currently 0 (1 standard drink = 0.6 oz pur e alcohol) Sex and Gender Information Value Date Recorded Sex Assigned at Not on file Gender Identity Not on file Sexual Orientation Not on file Last Filed Vital Signs Vital Sign Reading Time Taken Comments Blood Pressure 135/79 06/17/2021 10:32 AM EST Pulse 57 06/17/2021 10:32 AM EST Temperature 36.7 ??C (98 ??F) 05/03/2021 8:54 AM EST Respiratory Rate 16 04/16/2021 2:51 PM EST Oxygen Saturation 98% 04/16/2021 2:51 PM EST Inhaled Oxygen Concentration - - Weight 91.2 kg (201 lb) 06/17/2021 10:32 AM EST Height 172.7 cm (5' 8 ) 06/17/2021 10:32 AM EST Body Mass Index 30.56 06/17/2021 10:32 AM EST Plan of Treatment Health Maintenance Due Date Last Done Comments Hepatitis C Virus Screening 1950 DTaP/Tdap/Td Vaccines (1 - Tdap) 08/08/1971 Pneumococcal Vaccines 50+ (1 of 2 - PCV) 08/08/1971 Colonoscopy 1997 Zoster (Shingles) Vaccine (1 of 2) 2002 RSV Vaccine 60 years and older and Patients (1 - Risk 60-74 years 1-dose series) 2012 Influenza Vaccine 12/07/2023 01/20/2021 COVID-19 Vaccine (4 - 2023-2 5 season) 2024 03/19/2021, 08/01/2020, 07/04/2020 Hepatitis B Vaccines Aged Out No long er eligible based on patient's age to complete this topic Advance Directives * Full Code (Latest Code Status on File) Date Activated Date Inactivated Comments 04/11/2021 4:40 AM Care Teams Logistics Intern Relationship Specialty Start Date End Date Pcp, No PCP - General General Medicine 04/10/21
--- OUTSIDE RECORDS SUMMARY | 2024-07-15 18:02 | XMS_ITS | Continuity of Care Document ---
Author Organization [facility] Address [address] [facility] [address] [place] [address]- Care Team Providers Care Industry Analyst Name Role Phone Aba Linares DO Primary Care Physician [place] [facility] [place]24 - 07/11/24 [facility] [address] [place] [id number]- Encounter Type: Triage Allergies, Adverse Reactions, Alerts [...] virus vaccine, inactivated 04/17/16 Rohit rded SARS-CoV-2(COVID-19)mRNA-LNP vac([id number]) 02/24/24 Recorded SARS-CoV-2(COVID-19)mRNA-LNP vac([id number]) 04/15/23 Recorded RSV vaccine preF3, recombinant 04/15/23 Recorded [id number] bivalent booster vax 03/10/22 Recorded zoster vaccine, [...] 11:37:00 AM EST, Route to Pharmacy Electronically, [facility], Partial fill upon patient request [...] Refills, Maintenance, 07/01/24 2:04:00 PM EST, Tablet, [facility] [id number] ([facility] 827), Partial fill upon patient request if [...] Maintenance, 07/01/24 2:04:00 PM EST, Tablet, Rodney [id number] ([employer] 827), Partial fill upon patient request if [...] antibiotics on Monday and fax results to [facility] ID [phone] and PCP, 04/08/24 2:27:00 PM EST, Supply [...] 1 Nursing: Increase baclofen to 15 mg 3xday Nursing: Increase baclofen to 15 mg 3/xday, See Instructions, # 1 kit, Refills 0, Tot. Refills 0, Maintenance, Dx: Spasticity, 06/11/24 10:53:00 AM EST, Supply Start Date: 06/11/24 Status: Ordered Quantity: 1.0 Unit: kit Repeat number: 1 nystatin topical [id number] u/gm powder APPLY TOPICALLY TO THE AFFECTED AREA TWICE A DAY Start Date: 03/26/24 Status: Ordered Repeat number: 1 pantoprazole 40 mg oral delayed release tablet 1 tablet = 40 mg, By Mouth, 2 times a day, # 120 tablet, 0 Refills, Maintenance, 06/05/24 9:51:00 AMEST, CR Tablet Start Date: 06/05/24 Status: Ordered Quantity: 120.0 Unit: tablet Repeat number: 1 Please provide 28/11 CROSS TIE MAKER care and weekly VNA visits for medication management. Please provide 28/11 CROSS TIE MAKER care and weekly VNA visits for medication [...] Maintenance, 07/01/24 2:03:00 PM EST, Tablet, [id number] ([facility] 827), Partial fill upon patient request [...] Confirmed Active Constipation Confirmed Active CAD in [place] artery Confirmed Active Presence of intrathecal baclofen [...] Name: Danny Whittaker RN Position: [facility] ED RN W/OE and Tasks Member Role: Primary Care Nurse Name: Drea Rodriguez RN Position: S RN Member Role: Primary Care Nurse Name: Aba Linares DO Position: Reference Physician Member Role: PCP Address: [address] [place] [address] Internal Medicine [address] Telecom: Name: Renata Cantu RN Position: [facility] RN Supv Member Role: Primary Care Nurse Name: Magaly Allan RN Position: [facility] RN Member Role: Primary Care Nurse Name: Tesha Kirkpatrick RN Position: [facility] RN Member Role: Primary Care Nurse Name: Karoline Rader RN Position: [facility] RN Member Role: Primary Care Nurse Name: Clay Dunham RN Position: [facility] RN Member Role: Primary Care Nurse Name: Clay Najera RN Position: [facility] RN Member Role: Primary Care Nurse Name: Elsi Paulino RN Position: [facility] RN Member Role: Primary Care Nurse Name: Adriel Mahmood RN Position: [facility] RN Member Role: Primary Care Nurse Name: Vera Patricia RN Position: [facility] RN Member Role: Primary Care Nurse Name: Troy Ni RN Position: [facility] RN Member Role: Primary Care Nurse Name: [place] RN Position: [facility] RN Member Role: Primary Care Nurse Name: Ramya Bella NP Position: [facility] Associate Professional Member Role: Lifetime Consulting Provider Address: [facility] [address] [facility] [address] Telecom: Name: Gaby Byrd RN Position: [facility] RN Member Role: Primary Care Nurse Name: Brittnee Inman RN Position: [facility] RN Member Role: Primary Care Nurse Name: Hung Tamez DO Position: [facility] Renal MD Member Role: Lifetime Consulting Physician Address: [address] [facility] [address] Telecom: Name: Cecilia Thompson RN Position: [facility] RN Member Role: Primary Care Nurse Name: Brittany Loredo RN Position: [facility] RN Member Role: Primary Care Nurse Name: Cate Pantoja Position: [facility] RN Member Role: Primary Care Nurse Name: Genevieve Orozco RN Position: [facility] RN Member Role: Primary Care Nurse Name: Trudy Prakash RN Position: [facility] RN Member Role: Primary Care Nurse Name: Nicole Upton RN Position: [facility] RN Member Role: Primary Care Nurse Name: Lance Vegas RN Position: [facility] RN Member Role: Primary Care Nurse Name: Zi Soler RN Position: S RN Member Role: Primary Care Nurse Name: Kenya Corrigan RN Position: [facility] RN Member Role: Primary Care Nurse Name: Eriberto Ruffin RN Position: [facility] RN Member Role: Primary Care Nurse Name: Madai Joy RN Position: [facility] RN Member Role: Primary Care Nurse Name: Urban Perrin LPN Position: [facility] RN Member Role: Primary Care Nurse Name: Sonja Cage RN Position: [facility] RN Member Role: Primary Care Nurse Name: Alec Chahal RN Position: [facility] RN Member Role: Primary Care Nurse Name: Dawson Zavala RN Position: [facility] RN Member Role: Primary Care Nurse Name: Анна Brock RN Position: [facility] RN Munir Member Role: Primary Care Nurse Care Team Related Persons Name: RANDI TORREZANNINE Name: LOC BAKER Insurance Providers Guarantor name: ADRIAN TORREZ Health Plan Information #: 1 Payer: WORK COMP NON BH EM Member Number: NA Policy Number: NA Group Number: NA Health Plan Information #: 2 Payer: HNE FF NON BHP HMO Member Number: NA Policy Number: NA Group Number: NA
--- OUTSIDE RECORDS SUMMARY | 2024-07-15 18:02 | XMS_ITS | Continuity of Care Document ---
Author Organization [facility] Address [address] [address]- Care Team Providers Care Plater Hot Dip Name Role Phone Aba Linares DO A Primary Care Physician [phone] Encounter [facility] [place] Date(s): 04/11/24 - 07/06/24 [facility] [address] [place] [id number]- Referring Physician: Aba Linares DO Encounter Type: Pre Office Visit Allergies, Adverse Reactions, Alerts No Known Allergies [...] virus vaccine, inactivated 04/17/16 Rohit rded SARS-CoV-2(COVID-19)mRNA-LNP vac([id number]) 02/24/24 Recorded SARS-CoV-2(COVID-19)mRNA-LNP vac([id number]) 04/15/23 Recorded RSV vaccine preF3, recombinant 04/15/23 Recorded [id number] bivalent booster vax 03/10/22 Recorded zoster vaccine, [...] 11:37:00 AM EST, Route to Pharmacy Electronically, [facility], Partial fill upon patient request if [...] Refills, Maintenance, 07/01/24 2:04:00 PM EST, Tablet, [id number] ([facility] 827), Partial fill upon patient request [...] Maintenance, 07/01/24 2:04:00 PM EST, Tablet, Rodney [id number] (FamilyMeds 827), Partial fill upon patient request [...] antibiotics on Monday and fax results to [facility] ID [phone] and PCP, 04/08/24 2:27:00 PM EST, Supply [...] 3xday Nursing: Increase baclofen to 15 mg 3xday, See Instructions, # 1 kit, Refills 0, Tot. Refills 0, Maintenance, Dx: Spasticity, 06/11/24 10:53:00 AM EST, Supply Start Date: 06/11/24 Status: Ordered Quantity: 1.0 Unit: kit Repeat number: 1 nystatin topical [id number] u/gm powder APPLY TOPICALLY TO THE AFFECTED AREA TWICE A DAY Start Date: 03/26/24 Status: Ordered Repeat number: 1 pantoprazole 40 mg oral delayed release tablet 1 tablet = 40 mg, By Mouth, 2 times a day, # 120 tablet, 0 Refills, Maintenance, 06/05/24 9:51:00 AMEST, CR Tablet Start Date: 06/05/24 Status: Ordered Quantity: 120.0 Unit: tablet Repeat number: 1 Please provide 28/11 PUMPER HELPER care and weekly VNA visits for medication management. Please provide 28/11 PUMPER HELPER care and weekly VNA visits for [...] Refills, Maintenance, 07/01/24 2:03:00 PM EST, Tablet, [facility] [id number] (FamilyMeds 827), Partial fill upon patient request [...] Confirmed Active Constipation Confirmed Active CAD in [place] artery Confirmed Active Presence of intrathecal baclofen [...] Position: Reference Physician Member Role: PCP Address: [address] [place] [address] Internal Medicine [place], [place] [address] Telecom: Name: Renata Cantu RN Position: [facility] RN Supv Member Role: Primary Care Nurse Name: Magaly Allan RN Position: [facility] RN Member Role: Primary Care Nurse Name: Tesha Kirkpatrick RN Position: [facility] RN Member Role: Primary Care Nurse Name: Karoline Rader RN Position: [facility] RN Member Role: Primary Care Nurse Name: Clay Dunham RN Position: [facility] RN Member Role: Primary Care Nurse Name: Clay Najera RN Position: [facility] RN Member Role: Primary Care Nurse Name: Elsi Paulino RN Position: [facility] RN Member Role: Primary Care Nurse Name: Adriel Mahmood RN Position: [facility] RN Member Role: Primary Care Nurse Name: Vera Patricia RN Position: [facility] RN Member Role: Primary Care Nurse Name: Troy Ni RN Position: [facility] RN Member Role: Primary Care Nurse Name: [place] RN Position: [facility] RN Member Role: Primary Care Nurse Name: Ramya Bella NP Position: [facility] Associate Professional Member Role: Lifetime Consulting Provider Address: [address] [facility] [place], [place] [address] Telecom: Name: Gaby Byrd RN Position: [facility] RN Member Role: Primary Care Nurse Name: Brittnee Inman RN Position: [facility] RN Member Role: Primary Care Nurse Name: Hung Tamez DO Position: [facility] Renal MD Member Role: Lifetime Consulting Physician Address: [address] [facility] [place], [place] [address] Telecom: Name: Cecilia Thompson RN Position: [facility] RN Member Role: Primary Care Nurse Name: Brittany Loredo RN Position: [facility] ED RN W/OE and Tasks Member Role: Primary Care Nurse Name: Cate Pantoja Position: [facility] RN Member Role: Primary Care Nurse Name: Genevieve Orozco RN Position: [facility] RN Member Role: Primary Care Nurse Name: Trudy Prakash RN Position: [facility] RN Member Role: Primary Care Nurse Name: Nicole Upton RN Position: [facility] RN Member Role: Primary Care Nurse Name: Lance Vegas RN Position: S RN Member Role: Primary Care Nurse Name: Zi Soler RN Position: [facility] RN Member Role: Primary Care Nurse Name: Kenya Corrigan RN Position: S RN Member Role: Primary Care Nurse Name: Eriberto Ruffin RN Position: [facility] RN Member Role: Primary Care Nurse Name: Madai Joy RN Position: [facility] RN Member Role: Primary Care Nurse Name: Urban Perrin LPN Position: [facility] RN Member Role: Primary Care Nurse Name: Sonja Cage RN Position: [facility] RN Member Role: Primary Care Nurse Name: Alec Chahal RN Position: [facility] RN Member Role: Primary Care Nurse Name: Dawson Zavala RN Position: [facility] RN Member Role: Primary Care Nurse Name: Анна Brock RN Position: [facility] RN Supv Member Role: Primary Care Nurse Care Team Related Persons Name: CIRO TORREZ Name: LOC BAKER Insurance Providers Guarantor name: ADRIAN RIVERATITOJABARI Health Plan Information #: 4 Payer: I10 MEDICARE SUPPL 2NDRY Member Number: [id number] Policy Number: NA Group Number: NA Health Plan Information #: 2 Payer: MEDICARE PART B OUTPT Member Number: [id number] Policy Number: NA Group Number: NA Health Plan Information #: 3 Payer: [facility] HMO Member Number: [id number] Policy Number: NA Group Number: NA Health Plan Information #: 1 Payer: HNE FF NON BHP HMO Member Number: [id number] Policy Number: NA Group Number: [id number] Health Plan Information #: 5 Payer: WORK COMP NON BH EM Member Number: NA Policy Number: NA Group Number: NA Health Plan Information #: 6 Payer: MEDICARE A INPT 25 Member Number: NA Policy Number: NA Group Number: NA
--- OUTSIDE RECORDS SUMMARY | 2024-07-15 18:02 | XMS_ITS | Clinical Summary ---
Author Organization [address] Address [address] [place] [phone] Phone Care Team Providers Care Avian Keeper Name Role Phone AidenAba olivia Primary Care Provider [phone] Allergies No known active allergies Active Problems Problem Noted Date Diagnosed Date Neurogenic bladder 03/11/2021 Suprapubic catheter dysfunct ion, initial encounter (HC Code) (HC CODE) 03/10/2021 Social History Tobacco Use Types Packs/Day Years Used Date Smoking Tobacco: Never Assessed Sex and Gender Information Value Date Recorded Sex Assigned at Not on file Legal Sex Male 2:29 PM EDT Gender Identity Not on file Sexual Orientation Not on file Last Filed Vital Signs Vital Sign Reading Time Taken Comments Blood Pressure 122/63 03/11/2021 10:53 AM EDT Pulse 68 03/11/2021 10:53 AM EDT Temperature 36.5 ??C (97.7 ??F) 03/11/2021 10:53 AM E DT Respiratory Rate 16 03/11/2021 10:53 AM EDT Oxygen Saturation 98% 03/11/2021 10:53 AM EDT Inhaled Oxygen Concentration - - Weight 97.5 kg (215 lb) 03/10/2021 4:27 PM EDT Height - - Body Mass Index - - Plan of Treatment Health Maintenance Due Date Last Done Comments HIV screening 1965 Hepatitis C screening 1970 Tetanus adult (Td q 10,TDAP once) 1972 Lipid disorder screening 1992 Colon cancer screening, Colonoscopy 1997 Diabetes screening 1997 Shingles vaccine (Shingrix) (1 of 2 - Shingrix (RZV) 2 Dose Standard Series) 2002 Pneumococcal Vaccine (50+ years) (2 of 2 - PCV) 2017 12/22/2011 Influenza vaccine 12/07/2023 03/10/2022, , 01/20/2021, Additional history exists Covid-19 vaccine series ( - 2023- season) 2024 03/10/2022, 08/01/2020, 07/04/2020 RSV Discussion (1 - 1-dose 75+ series) 08/08/2027 Meningococcal Vaccine Aged Out No tasneem kareen eligible based on patient's age to complete this topic Medical Devices Implanted Type Area Galvanizer Device Identifier Shelf Expiration Date Model / Serial / Lot Pin Pin Insurance MEDICARE Member Subscriber Plan / Payer (Ef fective 2017-Present) Name:Eran Guerrero Member ID:[id number] Relation to Subscriber:Self Name:Eran Guerrero Subscriber ID:[id number] Payer ID:[id number] Group ID:Not on file Type:Not on file Address: [address] MEDICARE Member Subscriber Plan / Payer (Ef fective 2017-Present) Name:Eran Guerrero Member ID:[id number] Relation to Subscriber:Self Name:Eran Guerrero Subscriber ID:[id number] Payer ID:[id number] Group ID:Not on file Type:Not on file Address: [address] [employer] [address] [place] [address] [employer] Advance Directives * Full ACLS (Latest Code Status on File) Date Activated Date Inactivated Comments 03/11/2021 12:12 AM 03/11/2021 3:08 PM Care Teams Avian Keeper Relationship Specialty Start Date End Date Aba Linares DO [address] [place] [address] PCP - General Internal Medicine 03/10/21
--- OUTSIDE RECORDS SUMMARY | 2024-07-15 18:02 | XMS_ITS | Continuity of Care Document ---
Author Organization [facility] Address [address] [place] [address]- Care Team Providers Care Bookmobile Librarian Name Role Phone Milagros CHUNG Aba Gee Primary Care Physician Encounter [facility] [place] Date(s): 05/15/24 - 06/14/24 [facility] [address] [place] [id number] Encounter Type: Triage Allergies, Adverse Reactions, Alerts [...] virus vaccine, inactivated 04/17/16 Rohit rded SARS-CoV-2(COVID-19)mRNA-LNP vac([id number]) 02/24/24 Recorded SARS-CoV-2(COVID-19)mRNA-LNP vac([id number]) 04/15/23 Recorded RSV vaccine preF3, recombinant 04/15/23 Recorded [id number] bivalent booster vax 03/10/22 Recorded zoster vaccine, [...] 11:37:00 AM EST, Route to Pharmacy Electronically, [facility], Partial fill upon patient request if [...] 10:52:00 AM EST, Route to Pharmacy Electronically, [facility], Partial fill upon patient [...] antibiotics on Monday and fax results to [facility] ID [phone] and PCP, 04/08/24 2:27:00 PM EST, Supply [...] Unit: kit Repeat number: 1 nystatin topical [id number] u/gm powder APPLY TOPICALLY TO THE AFFECTED AREA TWICE A DAY Start Date: 03/26/24 Status: Ordered Repeat number: 1 pantoprazole 40 mg oral delayed release tablet 1 tablet = 40 mg, By Mouth, 2 times a day, # 120 tablet, 0 Refills, Maintenance, 06/05/24 9:51:00 AMEST, CR Tablet Start Date: 06/05/24 Status: Ordered Quantity: 120.0 Unit: tablet Repeat number: 1 Please provide 28/11 PRECISION LENS GRINDER care and weekly VNA visits for medication management. Please provide 28/11 PRECISION LENS GRINDER care and weekly VNA visits for [...] Active Hypokalemia Confirmed Active Hyponatremia Confirmed Active Bedsores Confirmed Active Pyelonephritis Confirmed Active Suprapubic catheter Confirmed Active Quadriplegia Confirmed Active 1Hemoglobin 06/29/23-10 Social History Social History Type Response Smoking Status Former smoker, quit more than 30 days ago; Type: Cigarettes; Other: quit smoking 2020; entered on: 12/12/23 Sex Sex Representation Male (finding) Patient Care team information Care Team Personnel Name: Danny Whittaker RN Position: [facility] ED RN W/OE and Tasks Member Role: Primary Care Nurse Name: Drea Rodriguez RN Position: [facility] RN Member Role: Primary Care Nurse Name: Aba Linares DO Position: Reference Physician Member Role: PCP Address: [address] [place] [address] Internal Medicine [place], [place] [address] Telecom: Name: Magaly Allan RN Position: [facility] RN Member Role: Primary Care Nurse Name: Tesha Kirkpatrick RN Position: [facility] RN Member Role: Primary Care Nurse Name: Karoline Rader RN Position: [facility] RN Member Role: Primary Care Nurse Name: Clay Dunham RN Position: [facility] RN Member Role: Primary Care Nurse Name: Clay Najera RN Position: [facility] RN Member Role: Primary Care Nurse Name: Elsi Paulino RN Position: [facility] RN Member Role: Primary Care Nurse Name: Vera Patricia RN Position: [facility] RN Member Role: Primary Care Nurse Name: Troy Ni RN Position: [facility] RN Member Role: Primary Care Nurse Name: [place] RN Position: [facility] RN Member Role: Primary Care Nurse Name: Gaby Byrd RN Position: [facility] RN Member Role: Primary Care Nurse Name: Brittnee Inman RN Position: [facility] RN Member Role: Primary Care Nurse Name: Cecilia Thompson RN Position: [facility] RN Member Role: Primary Care Nurse Name: Brittany Loredo RN Position: [facility] RN Member Role: Primary Care Nurse Name: Gneevieve Orozco RN Position: [facility] RN Member Role: Primary Care Nurse Name: Trudy Prakash RN Position: [facility] RN Member Role: Primary Care Nurse Name: Nicole Upton RN Position: [facility] RN Member Role: Primary Care Nurse Name: Lance Vegas RN Position: [facility] RN Member Role: Primary Care Nurse Name: Kenya Corrigan RN Position: [facility] RN Member Role: Primary Care Nurse Name: Eriberto Ruffin RN Position: [facility] RN Member Role: Primary Care Nurse Name: Madai Joy RN Position: [facility] RN Member Role: Primary Care Nurse Name: Urban Perrin LPN Position: [facility] RN Member Role: Primary Care Nurse Name: Sonja Cage RN Position: [facility] RN Member Role: Primary Care Nurse Name: Alec Chahal RN Position: [facility] RN Member Role: Primary Care Nurse Name: Dawson Zavala RN Position: [facility] RN Member Role: Primary Care Nurse Name: Анна Brock RN Position: [facility] RN Supv Member Role: Primary Care Nurse Care Team Related Persons Name: CIRO TORREZ Name: FARNAZ HANNAH Insurance Providers Guarantor name: ADRIAN TORREZ Health Plan Information #: 1 Payer: MEDICARE PART B OUTPT Member Number: NA Policy Number: NA Group Number: NA Health Plan Information #: 2 Payer: [facility] FF NON BHP HMO Member Number: NA Policy Number: NA Group Number: NA Health Plan Information #: 3 Payer: [place] Member Number: NA Policy Number: NA Group Number: NA
--- OUTSIDE RECORDS SUMMARY | 2024-07-15 18:02 | XMS_ITS | Continuity of Care Document ---
Author Organization [facility] ter Address [address] [place] [address]- Care Team Providers Care Street Light Lamp Cleaner Name Role Phone Milagros CHUNG Aba Gee Primary Care Physician [id number] Date(s): 06/09/24 - 07/09/[address] [address]- Attending Physician: Not on Staff, Attending MD Admitting Physician: Not on Staff, Admitting MD Referring Physician: Not on Staff, Referring MD Encounter Type: Pre-Outpt Allergies, Adverse Reactions, Alerts No Known Allergies [...] virus vaccine, inactivated 04/17/16 Rohit rded SARS-CoV-2(COVID-19)mRNA-LNP vac([id number]) 02/24/24 Recorded SARS-CoV-2(COVID-19)mRNA-LNP vac([id number]) 04/15/23 Recorded RSV vaccine preF3, recombinant 04/15/23 Recorded [id number] bivalent booster vax 03/10/22 Recorded zoster vaccine, [...] 11:37:00 AM EST, Route to Pharmacy Electronically, [facility] 3, Partial fill upon patient request if [...] Refills, Maintenance, 07/01/24 2:04:00 PM EST, Tablet, [employer] [id number] ([employer])MedTopTenREVIEWS 827), Partial fill upon patient request if [...] Maintenance, 07/01/24 2:04:00 PM EST, Tablet, Rodney [id number] ([employer] 827), Partial fill upon patient request if [...] antibiotics on Monday and fax results to [facility] ID [phone] and PCP, 04/08/24 2:27:00 PM EST, Supply [...] Unit: kit Repeat number: 1 nystatin topical [id number] u/gm powder APPLY TOPICALLY TO THE AFFECTED AREA TWICE A DAY Start Date: 03/26/24 Status: Ordered Repeat number: 1 pantoprazole 40 mg oral delayed release tablet 1 tablet = 40 mg, By Mouth, 2 times a day, # 120 tablet, 0 Refills, Maintenance, 06/05/24 9:51:00 AMEST, CR Tablet Start Date: 06/05/24 Status: Ordered Quantity: 120.0 Unit: tablet Repeat number: 1 Please provide 28/11 SQL BI DEVELOPER care and weekly VNA visits for medication management. 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 Confirmed Active Presence of intrathecal baclofen [...] RN Position: [facility] ED RN W/OE and Tasks Member Role: Primary Care Nurse Name: Drea Rodriguez RN Position: S RN Member Role: Primary Care Nurse Name: Aba Linares DO Position: Reference Physician Member Role: PCP Address: [address] [place] [address] Internal Medicine [place], [place] [address] Telecom: Name: Renata Cantu RN Position: [facility] RN Supv Member Role: Primary Care Nurse Name: Magaly Allan RN Position: [facility] RN Member Role: Primary Care Nurse Name: Tesha Kirkpatrick RN Position: [facility] RN Member Role: Primary Care Nurse Name: Karoline Rader RN Position: [facility] RN Member Role: Primary Care Nurse Name: Clay Dunham RN Position: [facility] RN Member Role: Primary Care Nurse Name: Clay Najera RN Position: [facility] RN Member Role: Primary Care Nurse Name: Elsi Paulino RN Position: [facility] RN Member Role: Primary Care Nurse Name: Adriel Mahmood RN Position: [facility] RN Member Role: Primary Care Nurse Name: Vera Patricia RN Position: [facility] RN Member Role: Primary Care Nurse Name: Troy Ni RN Position: [facility] RN Member Role: Primary Care Nurse Name: [place] RN Position: [facility] RN Member Role: Primary Care Nurse Name: Ramya Bella NP Position: [facility] Associate Professional Member Role: Lifetime Consulting Provider Address: [address] [facility] [address] Telecom: Name: Gaby Byrd RN Position: [facility] RN Member Role: Primary Care Nurse Name: Brittnee Inman RN Position: [facility] RN Member Role: Primary Care Nurse Name: Hung Tamez DO Position: [facility] Renal MD Member Role: Lifetime Consulting Physician Address: [address] [facility] [place], [place] [address] Telecom: Name: Cecilia Thompson RN Position: [facility] RN Member Role: Primary Care Nurse Name: Brittany Loredo RN Position: [facility] RN Member Role: Primary Care Nurse Name: Cate Pantoja Position: [facility] RN Member Role: Primary Care Nurse Name: Genevieve Orozoc RN Position: [facility] RN Member Role: Primary Care Nurse Name: Trudy Prakash RN Position: [facility] RN Member Role: Primary Care Nurse Name: Nicole Upton RN Position: [facility] RN Member Role: Primary Care Nurse Name: Lance Vegas RN Position: [facility] RN Member Role: Primary Care Nurse Name: Zi Soler RN Position: [facility] RN Member Role: Primary Care Nurse Name: Kenya Corrigan RN Position: [facility] RN Member Role: Primary Care Nurse Name: Eriberto Ruffin RN Position: [facility] RN Member Role: Primary Care Nurse Name: Madai Joy RN Position: [facility] RN Member Role: Primary Care Nurse Name: Urban Perrin LPN Position: [facility] RN Member Role: Primary Care Nurse Name: Sonja Cage RN Position: [facility] RN Member Role: Primary Care Nurse Name: Alec Chahal RN Position: [facility] RN Member Role: Primary Care Nurse Name: Dawson Zavala RN Position: [facility] RN Member Role: Primary Care Nurse Name: Анна Brock RN Position: [facility] RN Supv Member Role: Primary Care Nurse Care Team Related Persons Name: CIRO TORREZ Name: LOC BAKER Insurance Providers Guarantor name: ADRIAN TORREZ [facility] Plan Information #: 1 Payer: MEDICARE A INPT 25 Member Number: NA Policy Number: NA Group Number: NA
[2024-07-15 18:07] LABS: Basophils Absolute Auto 0.1 X10*3/uL (0.0-0.2); Basophils Percent Auto 0.5 % (0-2); Eosinophils Absolute Auto 0.4 X10*3/uL (0.0-0.4); Eosinophils Percent Auto 4.1 % (0-4); Hematocrit 28.3 % (42.0-52.0); Hemoglobin 8.8 g/dl (14.0-18.0); Imm Gran Abs Auto 0.04 X10*3/uL (0.00-0.03); Imm Gran Pct Auto 0.4 % (0.0-0.4); Lymphocytes Absolute Auto 1.6 X10*3/uL (1.2-4.9); Lymphocytes Percent Auto 14.7 % (20-40); Mean Corpuscular HGB Conc 31.1 g/dl (31.0-36.0); Mean Corpuscular Hemoglobin 26.6 pg (27.0-33.0); Mean Corpuscular Volume 85.5 fL (80.0-98.0); Mean Platelet Volume 9.8 fL (9.4-12.4); Monocytes Absolute Auto 0.4 X10*3/uL (0.1-1.2); Monocytes Percent Auto 3.6 % (2-11); Neutrophils Absolute Auto 8.3 x10*3/uL (2.0-8.3); Neutrophils Percent Auto 76.7 % (45-73); Platelet Count 259 X10*3/uL (160-400); Red Blood Count 3.31 X10*6/uL (4.60-5.80); Red Cell Distribution Width 17.1 % (11.0-16.0); White Blood Count 10.8 X10*3/uL (4.8-10.8)
[2024-07-15 18:17] LABS: Alanine Aminotransferase 13 U/L (0-40); Albumin Level 2.9 g/dL (3.5-5.0); Alkaline Phosphatase 59 U/L (39-117); Anion Gap 15 (12-20); Aspartate Amino Transferase 14 U/L (5-37); Bilirubin Total 0.2 mg/dL (0.0-1.0); Blood Urea Nitrogen 20 mg/dL (9-16); Calcium 8.7 mg/dL (8.4-10.2); Carbon Dioxide 20 mmol/L (22-29); Chloride 111 mmol/L (96-108); Estimated Glomerular Filt Rate > 60; Glucose Random 84 mg/dL (60-115); Magnesium 1.7 mg/dL (1.6-2.6); Potassium 3.6 mmol/L (3.3-5.1); Sodium 142 mmol/L (135-145); Total Protein 7.3 g/dL (6.5-8.0)
== END 2024-07-15 16:08 | disposition home or self-care (01) ==
LOC: HO.MANLDS 16:07
PROVIDERS: Visit Provider Physician Assistant
DX: E87.1 Hypo-osmolality and hyponatremia (principal)
CPT/HCPCS: 36415; 80053; 83735; 85025

== ENCOUNTER 2024-08-20 14:02 | Outpatient (REF) | payer OTHER, SELFPAY ==
[2024-08-20 15:23] LABS: MANUAL DIFF FLAG NO
[2024-08-20 15:37] LABS: Basophils Absolute Auto 0.1 X10*3/uL (0.0-0.2); Basophils Percent Auto 0.6 % (0-2); Eosinophils Absolute Auto 0.4 X10*3/uL (0.0-0.4); Eosinophils Percent Auto 4.9 % (0-4); Hematocrit 30.3 % (42.0-52.0); Hemoglobin 9.8 g/dl (14.0-18.0); Imm Gran Abs Auto 0.01 X10*3/uL (0.00-0.03); Imm Gran Pct Auto 0.1 % (0.0-0.4); Lymphocytes Absolute Auto 1.3 X10*3/uL (1.2-4.9); Lymphocytes Percent Auto 16.2 % (20-40); Mean Corpuscular HGB Conc 32.3 g/dl (31.0-36.0); Mean Corpuscular Hemoglobin 27.3 pg (27.0-33.0); Mean Corpuscular Volume 84.4 fL (80.0-98.0); Mean Platelet Volume 10.1 fL (9.4-12.4); Monocytes Absolute Auto 0.4 X10*3/uL (0.1-1.2); Monocytes Percent Auto 4.8 % (2-11); Neutrophils Percent Auto 73.4 % (45-73); Platelet Count 226 X10*3/uL (160-400); Red Blood Count 3.59 X10*6/uL (4.60-5.80); Red Cell Distribution Width 16.6 % (11.0-16.0); White Blood Count 8.1 X10*3/uL (4.8-10.8)
[2024-08-20 16:12] LABS: Alanine Aminotransferase 6 U/L (0-40); Albumin Level 3.1 g/dL (3.5-5.0); Anion Gap 11 (12-20); Aspartate Amino Transferase 17 U/L (5-37); Bilirubin Total 0.3 mg/dL (0.0-1.0); Blood Urea Nitrogen 26 mg/dL (9-16); C Reactive Protein 3.08 mg/dL (< or = 0.50); Calcium 9.2 mg/dL (8.4-10.2); Carbon Dioxide 28 mmol/L (22-29); Chloride 102 mmol/L (96-108); Estimated Glomerular Filt Rate > 60; Glucose Random 116 mg/dL (60-115); Potassium 3.9 mmol/L (3.3-5.1); Sodium 137 mmol/L (135-145); Total Protein 6.9 g/dL (6.5-8.0)
[2024-08-20 17:31] LABS: Alkaline Phosphatase 66 U/L (39-117)
--- OUTSIDE RECORDS SUMMARY | 2024-08-20 18:18 | XMS_ITS | Clinical Summary ---
Author Organization [facility] Address [address] [place] [address] Care Team Providers Care Career Development Engineer Name Role Phone Unavailable Primary Care Provider [...] TIMES A DAY 0 07/05/2021 Active Baclofen 62338 MCG/20ML SOSY 20 mL by Intrathecal route. [...] Eran Guerrero Workers Comp Self 1950 [address] [facility] [place], [place] Eran Guerrero Personal/Family Self 1950 [address] [facility], [place] Eran Guerrero TPL/AUTO Self 1950 [address] [place] [address]
--- OUTSIDE RECORDS SUMMARY | 2024-08-20 18:18 | XMS_ITS | Clinical Summary ---
Author Organization [facility] Address [address] [place] [address] Care Team Providers Care Cloth Worker Name Role Phone Pcp, No Primary Care [...] Inactivated Comments 04/11/2021 4:40 AM Care Teams Cloth Worker Relationship Specialty Start Date End Date Pcp, No PCP - General General Medicine 04/10/21
--- OUTSIDE RECORDS SUMMARY | 2024-08-20 18:18 | XMS_ITS | Clinical Summary ---
Author Organization [facility] Address [address] [place] [address] Care Team Providers Care Electrical Apprentice Name Role Phone Unavailable Primary Care Provider [...] Documents on File Type Date Recorded Patient Medical Records Specialist Expl anation Health Care Decision (hx) 10/07/2020 [...]
--- OUTSIDE RECORDS SUMMARY | 2024-08-20 18:18 | XMS_ITS | Encounter Summary ---
Author Organization [facility] Address [address] [place] [address] Care Team Providers Care Mechanical Cad Designer Name Role Phone Pcp, No Primary Care Provider Unavailabl e Encounter Details Date Type Department Care Team (Late st Contact Info) Description 07/22/2021 Scanned Document [facility] General Surgery [facility] [address] [place] [address] Dorie Callahan APRN [facility] [place] [address] Social History Tobacco Use Types [...] on filedocumented in this encounter Care Teams Mechanical Cad Designer Relationship Specialty Start Date End Date Pcp, No PCP - General General Medicine 04/10/21 documented as of this encounter
[2024-08-21 04:08] LABS: Immunoglobulin A 345 mg/dL (70-320)
[2024-08-21 20:34] LABS: Transglutaminase IgA <1.0 U/mL
== END 2024-08-20 14:03 | disposition home or self-care (01) ==
LOC: HO.LAB 14:02
PROVIDERS: Absent Provider Physician Assistant; PCP Internal Medicine
DX: G47.33 Obstructive sleep apnea (adult) (pediatric) (principal); Z99.89 Dependence on other enabling machines and devices; G82.20 Paraplegia, unspecified; J98.4 Other disorders of lung; G70.9 Myoneural disorder, unspecified; J96.12 Chronic respiratory failure with hypercapnia; G47.39 Other sleep apnea
CPT/HCPCS: 36415; 80053; 82784; 83735; 85025; 86140; 86364; 99212

== ENCOUNTER 2024-08-20 14:02 | Outpatient (AMB) | payer OTHER, SELFPAY ==
[2024-08-20 14:09] VITALS: O2SAT 96
--- NOTE | 2024-08-20 14:09 | MHC.OFFVIS ---
Vital Signs 08/20/24 14:09 Height 6 ft BMI Reason not done Patient refused/unable Pulse Source Pulse Oximeter Pulse Oximetry (%) 96 Oxygen Delivery Method Room Air Intake Visit Reasons: Obstructive sleep apnea Allergies No Known Allergies [No Known Allergies*] Allergy (Verified 08/20/24 14:12) HPI Comments Details: The patient is a 74-year-old gentleman who had an unfortunate accident while working back in August 2020 resulting in a cervical spinal cord injury. He was admitted to [facility]. Underwent number surgery for decompression of the C3/C4 spinal cord area. The patient was monitored in the intensive care but he did not require a tracheostomy. The patient has minimal movement to the upper extremities. Ultimately the patient was transferred to [facility] in [place]. There he had issues with urosepsis and was briefly admitted at [facility]. Subsequently the patient was then transferred over to an acute rehab at [facility] and [place]. While he was there he was noted to be hypoxic at nighttime. He did undergo a sleep study which was personally by me is also in the records which demonstrates that he had AHI up to 50 events an hour. Most of the events were either obstructive or hypopneas. No evidence of any significant central sleep apnea. He did desaturate down to the 70s. The patient was then placed on PAP therapy with good response. He has been tolerating the therapy. The patient ultimately after prolonged hospitalization and rehab was transferred home and now he is going to the transition of getting his care situated in the [place]. while the patient was at [facility] he was able to get a CPAP with a [place] [facility]. However, now that he is in [place] he cannot continue with this DME for his caseworker protective services. The patient needs to establish with a local DME company for supplies. In addition to that the patient does have issues with a weak cough due to the high spinal cord injury. He denies any chest congestion at this time. He is currently not using any oxygen at nighttime. He does get around with the use of a power wheelchair. 10/15/2021 the patient is here for pulmonary follow-up visit. Overall he is doing well. He is working with his teen to keep him home in safe. He has been tolerating the CPAP. The CPAP therapy continues to be affecting beneficial. He is using a nasal pillow mask. He is very reluctant to use a fullface mask because of some difficulties that he has had in the past that were pretty dramatic and traumatic for him. he does complaint of a dry mouth. It is likely that he is opening his mouth while sleeping. I did provide him a chin strap that he can try along with the nasal pillows. His apnea scores are within normal limits. His cough is overall better. We did talk about the staff regarding doing manual chest PT or considering a percussion device. In addition to that I did request that they can check or point check his pulse ox while sleeping specially since he has 24 hour care to make sure that he does not require oxygen supplementation. There is still struggling to find him a [employer] company that will work under the [employer] insurance. Once he is accepted into a [employer] company then we can continue getting supplies. 01/27/2022 the patient is here for a pulmonary follow-up visit. Overall he is doing well. He is tolerating his CPAP therapy. The CPAP therapy has been affecting beneficial. He is using nasal pillows. Although he does have issues with opening his mouth even with a chin strap and he does complain of a dry mouth. Therefore, we did talk about the importance of a fullface mask. He is willing to try 1. I did encourage him to try the F 30 medium mask. I will submit went to his [employer]. Otherwise his AHI is very good below 2 events an hour. He feels sometimes the pressure is too high so therefore I did decrease some of the pressures from a maximum of 20 down to a maximum of 14. His average pressure that he needs to treat his sleep apnea is 12.5 cmH2O. The patient does have a cough. It is mild to moderate at times. He does expectorate. He needs to be performed CPT. We his spoken before about a percussion valve. I will submit 1 again to his [employer] company. If his symptoms worsen if he gets more congested then we can consider a percussion wrap that will be more effective for him. Otherwise the patient is without any other complaints. 09/13/2022 The patient is here for a pulmonary follow up visit. Overall he is doing well. He is tolerating his CPAP therapy. The CPAP therapy has been affecting beneficial. He is using nasal mask. He could not tolerate the full face mask. Although he does have issues with opening his mouth. He needs to start isung the chin strap. Also, he was taken to the ED with encephalopathy. ABH with chronic hypercarbic respiratory failure. Not medication related per the pt. May have been related to a UTI. He was also referred to [facility] and had a holter monitor. No further episodes of confusion noted. 07/03/2023 the patient is here for a pulmonary follow-up visit. The patient overall has been doing well. Although, he has been having hard time with his fullface mask. He was doing better with the nasal pillows. He would like to go back on that type of mask. He is mouth breather and he was wearing a chinstrap in the past. Therefore will go ahead and attempt to get him back on the previous therapy. Otherwise patient is not tolerating CPAP. Will request a an urgent mask change from his [employer] company, [employer]. Hopefully they can supply them mask soon so he can start his therapy soon as possible. In the meantime he is also complaining of chest congestion. He is able to expectorate usually yellowish phlegm. Typically is on a daily basis. Denies any fevers or chills or any worsening shortness of breath. Likely has a component of chronic bronchitis. We could try macrolide therapy Monday for about a month just to see if we can improve his secretions in addition to improve his promotility issues that may be also contributing to his underlying chronic bronchitis. If the patient finds the medication helpful and he would like to stand medication would have to get an EKG to make sure that I can can tolerated. Patient also she got a chest x-ray although be difficult for him to do so we can make arrangements for him to have 1 done. Therefore, the patient is not improving on the current therapy he should have an x-ry. The order is available already. The patient also would like to decrease the pressure on his CPAP. I did go down to the maximum pressure of 12. His average pressure is around 11 so therefore we do want bring a lower than that. At the same time I made the ramp maximum 45 minutes in order for him to be able to fall asleep with the mask and then let the pressures increased. His sleep hygiene is not very good however. Will continue to monitor his progress on the CPAP. Otherwise the other option would be to check a blood gas and make sure that his CO2 is within normal limits. Will discuss that further during the next visit or if his symptoms worsen. 11/03/2023 the patient is here for a pulmonary follow-up visit. Overall he is doing well he has tolerating the nasal pillows. No significant air leakage based on his download from the machine. He still tolerates it just for short bout and then he takes it off after an hour. Seems like once the ramp is completed 45 minutes then the PAP pressures increased and he develops a hard time tolerating it. We did download the CPAP is seems that his AHI is slightly below 5. He understands that if he decrease the pressures it may be that his AHI will increase. Although at this point we need to make sure he tolerates the machine better so therefore I will decrease the pressures at this time. If the patient still has a hard time tolerating he can always call. He is also complains of the air. We also adjusted the temperature slightly from 80-78 and he can always adjusted accordingly to his comfort. The humidity is set at auto. The patient also has been little bit more sleepy. It may be from the fact that he has been using the CPAP regularly. Although because of his history of restrictive lung disease will go ahead and request blood work including a blood gas. If his CO2 is elevated then we have to consider changing his machine to a BiPAP or a noninvasive ventilator. 03/19/2024 the patient is here for a pulmonary follow-up visit. Since we last spoke he has had a very eventful few months. The patient developed a seizures and subsequently required intubation for status epilepticus. During the time he also was found to have acute kidney failure. Hydronephrosis. The patient was noted to have a significant obstructing stone that had to remove. The patient also had issue atrial fibrillation. He was subsequently person Eliquis. Unfortunately has significant hematuria and could not tolerate the Eliquis. He has been off the Eliquis although he has high risk for strokes. The shelter case manager has been talked to about potentially a Watchman procedure. He was initially reluctant to do so now he is thinking more serious about it. As far as his CPAP he continues use it every night. CPAP therapy has been affecting beneficial beneficial. The patient has been trying to use it. Still complains about the cold air. I did teach him how to increase the temperature to try to warm up the air. He is going to try to do so. In the meantime he did have a blood gas done actually a few while he was in the hospital. Does not have any evidence of any hypercarbia so at this point he does not require a ventilator. Download in the CPAP his AHI is actually 0 and he only requires between 4-5 cm of pressure. Therefore he will continue with a fullface mask he is tolerating it fairly well. Will follow-up in the springtime. If he has any issues he will call for an earlier assessment. 08/20/2024 the patient is here for a pulmonary follow-up visit. Overall he is doing okay. Still struggling with the CPAP. The nasal pillows are little uncomfortable for him. He sometimes feels burning sensation. He does not want to try fullface mask pretty adamant about that. I did have an N30 mask available and did provide for him. Seems to be a good fit. He will try to see if this provides him some relief when using the CPAP. I did download the data. Seems like he has a complex sleep apnea with both obstructive and central sleep apneas. Will set up the machine over ramp of 4 and then APAP between 4-10. Will be able to monitor the response to therapy when he returns. Otherwise he also had a very low blood pressure on arrival. It was checked by 3 people in the systolic blood pressure ranged between 76-84 and diastolic blood pressure in the 40s. We did call his caseworker protective services. The patient because of spinal cord injury does have issues with autonomic dysfunction. He denies any dizziness chest pain shortness of breath or any other symptoms. He does appear to be pale although he is going to get blood work. He does have midodrine at home as needed. When he goes home he can recheck the blood pressure he can take the midodrine. If he continues to be low if he becomes symptomatic he needs to seek out medical care. In addition, the patient does complaint of a weak cough. Hard to clear secretions. He does work with the staff in the house. He has been able to cough some secretions out per report. Still though I am concerned that with the we can cough he may not be able to clear central obstructions and a cough assist device will be helpful at this time. I also provide him with incentive spirometer that he can use twice a day and also the Acapella valve that he should use right afterwards. [facility] Medical History (Updated 08/20/24 @ 22:59 by Davy Soler MD) Complex sleep apnea syndrome Spasticity Bladder spasm Neurogenic bladder Chronic hypercapnic respiratory failure Restrictive lung mechanics due to neuromuscular disease Paraplegia LATANYA on CPAP CAD (coronary artery disease) Paroxysmal atrial fibrillation HTN (hypertension) Surgical History Chronic suprapubic catheter History of carpal tunnel release Hx of colonoscopy Hx of rotator cuff surgery History of hip surgery Family History Father Diabetes HTN (hypertension) CVD (cardiovascular disease) Mother CVD (cardiovascular disease) Diabetes HTN (hypertension) Brother CVD (cardiovascular disease) Diabetes HTN (hypertension) Social History Household Members: Spouse Housing: House Do you presently have visiting nurse or other home services: Yes (visiting nurses, cnas daily) Alcohol intake: former Comment: private AIRLINE CAPTAIN in room Patient Tobacco Use Status: Former Tobacco user Tobacco use type: Cigarette Years Smoked: 20 years Advance Directives Date on File: 06/08/23 service: No Review of Systems Const Denies chills, Denies fatigue, Denies fever(s), Denies weight gain and Denies weight loss Eyes Denies change in vision ENT Denies dizziness Card Denies chest pain, Denies leg edema, Denies lightheadedness, Denies palpitations, Denies dyspnea on exertion, Denies orthopnea and Denies other Resp Denies cough and Denies dyspnea on exertion GI Denies hematochezia and Denies change in stool character Reports as per HPI Musc Denies abnormal gait, Denies muscle weakness, Denies numbness, Denies radiating pain into limb and Denies tingling Skin/Breast Denies rash Neuro Denies abnormal gait, Denies dizziness, Denies numbness and Denies tingling Endo Denies fatigue and Denies palpitations Physical Exam Vital Signs: Last Vital Signs Pulse Ox 96 08/20/24 14:09 Oxygen Delivery Method Room Air 08/20/24 14:09 Const General: alert Limitations: physical limitations (quadriplegia) Neck Neck: Yes normal visual inspection, Yes full ROM and Yes no lymphadenopathy Chest Chest palpation & inspection: normal inspection of the chest Resp Auscultation: diminished lung sounds Cardio Rate: regular rate Rhythm: regular rhythm Heart sounds: S1 normal heart sound present and S2 normal heart sound present GI Palpation (GI): Soft to palpation and nontender Auscultation: normal bowel sounds Skin General skin exam: rashes and/or lesions noted Assessment & Plan Assessment & Plan (1) LATANYA on CPAP: Code(s): G47.33 - Obstructive sleep apnea (adult) (pediatric); Z99.89 - Dependence on other enabling machines and devices Category: Medical (2) Paraplegia: Code(s): G82.20 - Paraplegia, unspecified Category: Medical (3) Restrictive lung mechanics due to neuromuscular disease: Code(s): J98.4 - Other disorders of lung; G70.9 - Myoneural disorder, unspecified Category: Medical (4) Chronic hypercapnic respiratory failure: Code(s): J96.12 - Chronic respiratory failure with hypercapnia Category: Medical (5) Complex sleep apnea syndrome: Code(s): G47.39 - Other sleep apnea Category: Medical Plan continue APAP therapy, adjusted pressure 6-12->4>8->4-10 will trial N30i small. Will have to monitor the central episodes. If they worsen may need an inlab titration study ISS BID Acapella valve BID Would benefit from a cough assist device BP very low today Systolic 77-84. diastolic in the 40's. Pt asymptomatic. Will take midodrine once he goes home, otherwise will go to the ED if it does not improve or becomes symtomatic. We did speak to his assistant farm operations manager. F/U 4-6months Coding Level of Care Code Est Pt Level 5 (59432) Complex EM visit Add On G2211 Diagnoses LATANYA on CPAP G47.33; Z99.89 Paraplegia G82.20 Restrictive lung mechanics due to neuromuscular disease J98.4; G70.9 Chronic hypercapnic respiratory failure J96.12 Complex sleep apnea syndrome G47.39 Time Spent (min) 40
--- OUTSIDE RECORDS SUMMARY | 2024-08-20 17:20 | XMS_ITS | Clinical Summary ---
Author Organization [facility] Address [address] [place] [address] Care Team Providers Care Maltster Name Role Phone Pcp, No Primary Care [...] Inactivated Comments 04/11/2021 4:40 AM Care Teams Maltster Relationship Specialty Start Date End Date Pcp, No PCP - General General Medicine 04/10/21
--- OUTSIDE RECORDS SUMMARY | 2024-08-20 17:20 | XMS_ITS | Encounter Summary ---
Author Organization [facility] Address [address] [place] [address] Care Team Providers Care Liquid Sugar Fortifier Name Role Phone Pcp, No Primary Care Provider Unavailabl e Encounter Details Date Type Department Care Team (Late st Contact Info) Description 07/22/[address] [facility] General Surgery [facility] [address] [place] [id number] Dorie Callahan APRN [facility] [place] [address] Social History Tobacco Use Types [...] on filedocumented in this encounter Care Teams Liquid Sugar Fortifier Relationship Specialty Start Date End Date Pcp, No PCP - General General Medicine 04/10/21 documented as of this encounter
--- OUTSIDE RECORDS SUMMARY | 2024-08-20 17:20 | XMS_ITS | Clinical Summary ---
Author Organization [facility] Address [address] [place] [address] Care Team Providers Care Camp Dining Room Attendant Name Role Phone Unavailable Primary Care Provider [...] TIMES A DAY 0 07/05/2021 Active Baclofen 65608 MCG/20ML SOSY 20 mL by Intrathecal route. [...] Eran Guerrero Workers Comp Self 1950 [address] [facility] [place], [place] Eran Guerrero Personal/Family Self 1950 [address] [facility], [place] Eran Guerrero TPL/AUTO Self 1950 [address] [place] [address]
--- OUTSIDE RECORDS SUMMARY | 2024-08-20 17:20 | XMS_ITS | Clinical Summary ---
Author Organization [facility] Address [address] [place] [address] Care Team Providers Care Maintenance Director Name Role Phone Unavailable Primary Care Provider [...] Risk 2-dose series) 08/08/1971 Pneumococcal Vaccine: 50+ Years (2 of 2 - PCV) 12/21/2012 12/22/2011 DTaP,Tdap,and Td Vaccines (2 - Td or Tdap) 04/21/2013 04/21/2003 Abdominal Aortic Aneurysm (AAA) Screen 04/05/2022 Cholesterol Screening (Lipid Panel) 04/05/2022 Colorectal Cancer Screening: Stool Based Tests (FOBT/FIT) 04/05/2022 Depression Screening 04/05/2022 Falls Risk Assessment 04/05/2022 Hepatitis C Screening 04/05/2022 Lung Cancer Screening (Low Dose CT) 04/05/2022 Social Influencers of Health Screening 04/05/2022 Hypertension/CHF/CAD Annual BMP Blood Test 03/29/2024 03/29/2023, 03/20/2023, 04/14/2021, Additional history exists COVID-19 Vaccine ( season) 2024 02/24/2024, 04/15/2023, 08/01/2020, Additional history exists Zoster Vaccines Completed 01/13/2022, 02/25/2018 RSV Immunization Adult Patients Completed 04/15/2023 Influenza Vaccine Completed 02/24/2024, , 03/10/2022, Additional history exists HIB Vaccines Aged Out No longer eligi [...] age to complete this topic Meningococcal B Vaccine Aged Out No l onger eligible based on patient's age to complete this topic RSV Immunization Patients Under 20 months Aged Out No longer eligible based on patient's age to complete this topic Varicella Vaccines Aged Out No longer eligible based on patient's age to complete this topic Advance Directives Documents on File Type Date Recorded Patient Electrical Machine Builder Expl anation Health Care Decision (hx) 10/07/2020 [...]
--- OUTSIDE RECORDS SUMMARY | 2024-08-20 17:20 | XMS_ITS | Data Portability ---
Author Organization [facility], Home Service Address [address] [place] [address] Assessment No assessment recorded. Plan of Treatment Reminders Order Date Submit Date Provider Last Modified By Organization Details Last Modified Time Details Appointments None recorded. Lab CMP, serum or plasma 2024 025 [facility], [address] [place] [address], [address], 5 13:21:07 magnesium, serum or plasma 2024 025 [facility], [address] [place] [address], [address], 5 16:20:10 CBC w/ auto diff 2024 025 [facility], [address] [place] [address], [address], 5 13:21:07 urinalysis complete, reflex culture 2023 024 [facility], [address] [place] [address], [address], 4 15:38:46 culture, throat 2023 024 [facility], [address] [place] [address], [address], 4 12:18:48 C diff toxin A+B, qualitativ e, stool 2023 024 [facility], [address] [place], [place] [address], [place], [address], 4 11:25:33 CMP, serum or plasma 2023 [facility], [address] [place] [address], [place], [address], 4 15:41:27 iron + TIBC + ferritin, serum 2023 [facility], [address] [place] [address], [address], 4 15:41:27 CBC w/ auto diff 2023 [facility], [address] [place] [address], [address], 4 08:41:32 Referral gastroente rologist referral - 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 Surgeries None recorded. Imaging CT, head + brain, w/o contrast 2023 024 [facility], [address] [facility], [facility], [place], [address], 4 08:21:00 CT, kidney, w/o contrast - needs fu with for his urology after kidney surgery for stone removal 2023 024 [email or web address] [facility], [address] [facility], [address], [place], [address], 08:13:24 Medication Orders diazepam 2 mg tablet 2023 HAL Thomas [address] ([facility] 827), [address] [place], [place], [id number], 15:28:45 tramadol 50 mg tablet 2023 024 [facility] [address] ([facility] 827), [address] [place], [place], [id number], 15:50:21 Patient TargetsNo targets recorded. Patient Instructions Encounter Date Encounter Id Patient Instructions Last Modified By Organization Details Last Modified Time 12/18/2023 [id number] advance care planning: care instructions [email or web address] Not available 12/18/2023 15:21:10 Reason for Referral fax [phone] Referring Physician: Ashley Price, Internal Medicine, Encounter Date: 12/18/2023 Forest Firefighter Referral for At rial fibrillation needs discussion of possible watchman, given issues with afib and blood thinner Referring Physician: Ashley Price, Internal Medicine, Encounter Date: 04/23/2024 Tone Cabinet Assembler Referral for Esophageal dysmotility ? esophageal dysmotility, [...] 2 view No observ ation record ed. [email or web address] (Medical Records) [address] [place], [address], 11/29/2023 13:28:25 01/09/20 24 01/09/2024 XR, chest , 2 view No observ ation record ed. [email or web address] [facility] (Medical Records) [address] [place], [address], 01/09/2024 09:35:33 01/09/20 24 01/09/2024 CT, head + neck, w/o contr ast No observ ation record ed. [address] (Medical Records) [address] [place], [address], 01/09/2024 13:47:26 01/09/20 24 01/09/2024 CT, abdom en, w/o contr ast No observ ation record ed. [address] (Medical Records) [address] [place], [address], 01/09/2024 13:47:48 01/09/20 24 01/09/2024 CT, chest + abdom en + pelvi s, w/o contr ast No observ ation record ed. [address] (Medical Records) [address] [place], [address], 01/09/2024 13:48:14 01/10/20 24 01/09/2024 rhyth m EKG, 1-3 leads No observ ation record ed. [facility] (Medical Records) [address] [place], [address], 01/10/2024 15:03:19 01/11/20 24 01/11/2024 XR, chest , 2 view No observ ation record ed. [email or web address] [facility] (Medical Records) [address] [place], [address], 01/12/2024 07:02:30 01/12/20 24 01/11/2024 lumba r punct ure (PROC ) No observ ation record ed. [facility] (Medical Records) [address] [place], [address], 01/12/2024 13:29:29 01/12/20 24 01/11/2024 MRI, brain , w/o contr ast No observ ation record ed. [facility] (Medical Records) [address] [place], [address], 01/12/2024 13:50:57 01/13/20 24 01/10/2024 elect roenc ephal ogram No observ ation record ed. [email or web address] [facility] (Medical Records) [address] [place], [address], 01/14/2024 23:02:14 01/23/20 24 01/22/2024 guillermo green No observ ation record ed. [facility] (Medical Records) [address] [place], [address], 02/16/2024 13:46:16 02/09/20 24 02/09/2024 XR, pyelo gram No observ ation record ed. [facility] [address] [place] [address], [address], 02/16/2024 13:45:37 03/05/20 24 03/05/2024 CT, head + brain , w/o contr ast No observ ation record ed. [email or web address] [facility] [address] [place], [address], 03/05/2024 14:13:58 04/10/20 24 01/11/2024 fluor oscop ic guide d lumba r facet stero id injec tion (PROC ) No observ [facility]ion [facility] ed. [facility] [address] [place], [address], 04/10/2024 12:12:09 04/10/20 24 01/22/2024 guillermo bailey study No observ ation record ed. [facility] (Medical Records) [address] [facility], [place], [address], 04/10/2024 12:12:32 Result Notes None recorded. Problems Name Problem SNOMED Code Status Onset Date Resolution Date Notes Provider Name and Address Organization Details Recorded Time Tobacco dependen ce syndrome 41686520 Completed 201704/02/2019 Aba Linares DO [address] [place] [address], [address], [facility] 9 15:59:49 Alcohol abuse 01146754 Completed 201712/20/2017 Aba Linares DO [address] [place] [address], [address], [facility] 8 11:19:44 Polyp of colon 75076700 Active 2017 Not Available [facility] 3 10:33:08 History of hernia repair 56986536960 109 Active 2017 x2 Not Available [facility] 3 10:33:08 Atrial fibrilla tion 72181942 Active 2017 Not Available [facility] 3 10:33:08 Renal failure syndrome 01465840 Active 2017 Not Available [facility] 3 10:33:08 Osteoart hritis 086277634 Active 2017 Not Available [facility] 3 10:33:08 Glaucoma 95173077 Active 2017 Not Available [facility] 3 10:33:07 Gastroes ophageal reflux disease 493462906 Active 2017 Not Available [facility] 3 10:33:07 Hemorrho ids 76135999 Active 2017 Not Available [facility] 3 10:33:08 Coronary arterios clerosis 28229137 Active 2017 Not Available [facility] 3 10:33:08 Hyperten sive disorder 20481339 Active 2017 Not Available [facility] 3 10:33:07 Obesity 100381959 Active 2017 Not Available [facility] 3 10:33:08 Hyperlip idemia 39665737 Active 2017 Not Available [facility] 3 10:33:08 Abdomina l aortic aneurysm 335970465 Active 03/27 is 3.1cm Not Available [facility] 3 10:33:07 Neurogen ic urinary bladder 715647238 Active 2021 Not Available [facility] 3 10:33:08 Cholecys titis 29219858 Active 2021 Not Available [facility] 3 10:33:08 COVID-19 225548427 Active 2021 Not Available [facility] 3 10:33:08 Neuropat hy 697452733 Active 2021 Not Available [facility] 3 10:33:08 Hypotens ashley episode 53181642 Active 2021 Not Available [facility] 3 10:33:08 Constipa tion 41023436 Active 2021 Not Available [facility] 3 10:33:07 Candidia sis of skin 00373048 Active 2021 Not Available [facility] 3 10:33:08 Acute urinary tract infectio n 715254341 Active 2021 Not Available [facility] 3 10:33:08 Ingrowin g nail of toe of right foot 22830343300 055381 Active 2021 Not Available [facility] 3 10:33:07 Psoriasi s 8753598 Active 2021 Not Available [facility] 3 10:33:08 Cervical spinal cord injury 769821460 Active 2021 Not Available [facility] 3 10:33:08 Parapleg ia 08416892 Active 2022 Not Available [facility] 3 10:33:08 Anxiety 55475860 Active 2022 Not Available [facility] 3 10:33:08 Internal hemorrho ids 72207679 Active 2022 Not Available [facility] 3 10:33:08 Syncope 919263782 Active 2022 Not Available [facility] 3 10:33:07 Pain of left shoulder joint 80641073425 499830 Active 2022 Not Available [facility] 3 10:33:07 Pressure injury of buttock stage I 56747451435 902136 Active 2022 Not Available [facility] 3 10:33:07 Allergic conjunct ivitis 913363133 Active 2022 Not Available [facility] 3 10:33:08 Sepsis caused by Pseudomo og 852041781 Active 2022 Not Available [facility] 3 10:33:08 Urethral strictur e 33485955 Active 2022 Not Available [facility] 3 10:33:08 Skin lesion 38380597 Active 2023 JASMYNE PIZANO [address] [place], [address], [facility] 4 12:27:06 Cataract 506919646 Active 2023 Aba Linares DO [address] [place], [address], [facility] 4 14:23:35 Allergic conjunct ivitis 279947663 Active 2023 JASMYNE PIZANO [address] [place], [address], [facility] 4 13:52:55 Recurren t urinary tract infectio n 162512975 Active 2023 Aba Linares DO [address] [place] [address], [address], [facility] 4 22:30:00 Hyponatr emia 99349455 Active 2023 JASMYNE PIZANO [address] [place], [address], [facility] 4 08:45:39 Iron deficien cy anemia 22467850 Active 2023 JASMYNE PIZANO [address] [place] [address], [address], [facility] 4 08:45:49 Pressure injury of buttock stage IV 66691140870 046998 Active 2023 JASMYNE PIZANO [address] [place] [address], [address], [facility] 4 15:32:31 Clostrid ium difficil e colitis 532700469 Active 2023 JASMYNE PIZANO [address] [place] [address], [address], [facility] 4 15:37:24 Sore throat 813845452 Active 2023 JASMYNE PIZANO [address] [place] [address], [address], [facility] 4 15:38:00 Infectio n by Era albicans 94398109 Active 2023 JASMYNE PIZANO [address] [place] [address], [address], [facility] 4 12:30:56 Depressi ve disorder 86980167 Active 2023 Aba Linares DO [address] [place] [address], [address], [facility] 4 14:06:56 Memory impairme nt 589829726 Active 2023 JASMYNE PIZANO [address] [place] [address], [address], [facility] 4 15:41:42 Bilatera l shoulder joint pain 57321567434 711779 Active 2023 JASMYNE PIZANO [address] [place] [address], [address], [facility] 4 15:48:53 Kidney stone 74308881 Active 2023 JASMYNE PIZANO [address] [place] [address], [address], [facility] 4 15:50:22 Osteomye litis of coccyx 139039169 Active 2023 Aba Linares DO [address] [place] [address], [address], [facility] 4 15:23:34 Anemia 354492173 Active 2024 Aba Linares DO [address] [place] [address], [address], [facility] 5 09:04:44 Esophage al dysmotil ity 442233597 Active 2024 JASMYNE PIZANO [address] [place] [address], [address], [facility] 5 15:57:39 Problem Notes None recorded. Procedures Surgical History Date Name Laterality Status Provider Name and Address Organization Details Recorded Time 022 WOUND CARE completed JASMYNE PIZANO [address] [place] [address], [address], [facility] 08/30/2021 14:12:41 022 Joint Injection completed JASMYNE PIZANO [address] [place] [address], [address], [facility] 07/23/2021 14:48:14 020 Corticosteroid Injection completed Aba Linares DO [address] [place] [address], [address], [facility] 01/03/2020 15:39:03 018 Corticosteroid Injection completed Aba Linares DO [address] [place] [address], [address], [facility] 12/04/2017 16:42:28 Imaging Results Imaging Date Name Status LastModified by Organization Details LastModified Time 11/03/2023 XR, chest, 2 view completed [address] (Medical Records) [address] [place], [address], 11/29/2023 13:28:25 01/09/2024 XR, chest, 2 view completed [email or web address] [facility] (Medical Records) [address] [place], [address], 01/09/2024 09:35:33 01/09/2024 CT, head + neck, w/o contrast completed [address] (Medical Records) [address] [place], [address], 01/09/2024 13:47:26 01/09/2024 CT, abdomen, w/o contrast completed [address] (Medical Records) [address] [place], [address], 01/09/2024 13:47:48 01/09/2024 CT, chest + abdomen + pelvis, w/o contrast completed [address] (Medical Records) [address] [place], [address], 01/09/2024 13:48:14 01/09/2024 rhythm EKG, 1-3 leads completed [facility] (Medical Records) [address] [place], [address], 01/10/2024 15:03:19 01/11/2024 XR, chest, 2 view completed [email or web address] [facility] (Medical Records) [address] [place], [address], 01/12/2024 07:02:30 01/11/2024 lumbar puncture (PROC) completed [facility] (Medical Records) [address] [place], [address], 01/12/2024 13:29:29 01/11/2024 MRI, brain, w/o contrast completed [facility] (Medical Records) [address] [place], [address], 01/12/2024 13:50:57 01/10/2024 electroencephalogram completed [address] (Medical Records) [address] [place], [address], 01/14/2024 23:02:14 01/22/2024 barium swallow study completed [facility] (Medical Records) [address] [place], [address], 02/16/2024 13:46:16 02/09/2024 XR, pyelogram completed [facility] [address] [place], [address], 02/16/2024 13:45:37 03/05/2024 CT, head + brain, w/ o contrast completed [email or web address] [facility] [address] [place], [address], 03/05/2024 14:13:58 01/11/2024 fluoroscopic guided lumbar facet steroid injection (PROC) completed [facility] (Medical Records) [address] [place], [address], 04/10/2024 12:12:09 01/22/2024 barium swallow study completed [facility] (Medical Records) [address] [place], [address], 04/10/2024 12:12:32 Procedure Notes None recorded. Medical Equipment None Reported. Allergies Allergen ID Allergen Name Allergen Category Reaction Reaction Severity Criticality Documentation Date Start Date Code Code System Note Provider Name and Address Organization Details Recorded Time 8611 tramadol medicatio n hallucina tions Not available Not available 04/23/2024 00161 RxNorm JASMYNE PIZANO [address] [place], [address] , [facility] 15:09:52 Medications Name Sig Start [...] hen 325 mg tablet TAKE 2 TABLETS (650MG) BY MOUTH EVERY 4 HOURS NEEDED 2024 active Not Available Not Available Not Avai lable atorvastat in 10 mg tablet TAKE 1 [...] completed Not Available Not Available Not Available ciprofloxa shahid 500 mg tablet TAKE 1 TABLET BY MOUTH EVERY 12 HOURS FOR 7 DAYS active Not Available Not Available No t Available sulfametho xazole 800 mg-trimeth oprim 160 [...] Not Available No t Available Pill [facility] FOR USE WITH BACLOFEN 10 MG 07/12 completed Not Available Not Available Not Available Doni Bisacodyl 10 mg/30 mL enema USE 1 [...] Not Available Not Available No t Available olopatadin e 0.1 % eye drops INSTILL [...] active Not Available Not Available Not Avai labernesto gabapentin 300 mg capsule TAKE ONE CAPSULE [...] Not Available Not Available Not Avmonse labernesto levofloxac in 750 mg tablet TAKE 1 [...] Available sodium chloride 1,000 mg soluble tablet Take 1 tablet 3 times a day by miscell. route as directed for 90 days. 2024 active Not Available Not Available Not Avai lable Dakin's Solution 0.125 % APPLY A DAKINS [...] Not Available Not Avai lable Flucelvax Quad 2842-3347 (PF) 60 mcg (15 mcg x 4)/0.5 [...] BinaxNOW COVID-19 Ag Self Test kit DIRECTED 01/24 /2023 completed Not Available Not Available Not Available [...] % 128 mm[Hg] 80 mm[Hg] Keren Lucio [facility] 4 15:11:55 Date Recorded Body height Heart rate Oxygen saturation Oxygen saturation in Arterial blood by Pulse oximetry Systolic blood pressure Diastolic blood pressure Provider Name and Address Organization Details Last Updated DateTime 4 173.36 cm 51 /min 95 % 95 % 128 mm[Hg] 78 mm[Hg] Keren Lucio [facility] 4 15:09:19 Date Recorded Body height Oxygen saturation Oxygen saturation in Arterial blood by Pulse oximetry Heart rate Systolic blood pressure Diastolic blood pressure Provider Name and Address Organization Details Last Updated DateTime 4 173.36 cm 95 % 95 % 62 /min 100 mm[Hg] 60 mm[Hg] Cris Otto [facility] 4 14:57:17 Date Recorded Body height Body mass index (BMI) Body weight Heart rate Oxygen saturation Oxygen saturation in Arterial blood by Pulse oximetry Systolic blood pressure Diastolic blood pressure Provider Name and Address Organization Details Last Updated DateTime 4 173.36 cm 27.2 kg/m2 43891.6 3 g 66 /min 95 % 95 % 92 mm[Hg] 58 mm[Hg] Mazin Marin [facility] 4 15:04:39 Date Recorded Body height Systolic blood pressure Diastolic blood pressure Provider Name and Address Organization Details Last Updated DateTime 07/15/2024 173.36 cm 110 mm[Hg] 68 mm[Hg] Cris Otto [facility] 07/15/2024 15:09:42 Social History Question Answer Notes LastModified by Organizat ion Details LastModified Time Tobacco Smoking Status Former Smoker Aba GeeEmma Linares, [address] [place] [address], [address], [facility] 04/02/2019 15:39:17 What Was The [...] virus, quadrivalent, preservative 1 completed Not Available [facility] 03/11/2021 16:08:46 Influenza, split virus, quadrivalent, preservative 2 completed Consuelo echeverria [facility] 03/14/2022 07:46:37 COVID-19, mRNA, LNP-S, PF, 100 mcg/0.5mL dose or 50 mcg/0.25mL dose 2 completed Consuelo echeverria [facility] 03/14/2022 07:46:47 zoster, unspecified formulation 2 completed Aba Linares DO [address] [place] [address], [address], [facility] 07/12/2022 13:59:55 zoster, unspecified formulation 8 completed Fang echeverria [facility] Internal [facility] 07/12/2022 14:03:45 Influenza, split virus, quadrivalent, preservative 8 completed Not Available [facility] 03/11/2021 16:08:46 Influenza, split virus, quadrivalent, preservative 9 completed Not Available [facility] 03/11/2021 16:08:46 zoster live 9 completed Not Available [facility] 03/11/2021 16:08:46 Influenza, split virus, quadrivalent, preservative 0 completed Not Available [facility] 03/11/2021 16:08:46 COVID-19, mRNA, LNP-S, PF, 100 mcg/0.5mL dose or 50 mcg/0.25mL dose 1 completed Not Available [facility] 03/11/2021 16:08:46 COVID-19, mRNA, LNP-S, PF, 100 mcg/0.5mL dose or 50 mcg/0.25mL dose 1 completed Not Available [facility] 03/11/2021 16:08:46 Past Encounters Encounter ID Performer Location Encounter Start Date Encounter Closed Date Diagnosis/Indication Diagnosis SNOMED-CT Code Diagnosis ICD10 Code Diagnosis Note [id number] Aba Linares [facility] [address] [facility], [place] [address] 12/04/2017 16:12:34 12/07/2017 10:13:24 Osteoarthritis 785423864 M19.90 cortisone inject well tolerated if not helpful will need mri try advil and tylenol [id number] Aba Linares DO [facility] [address] [facility], [place] [address] 12/20/2017 10:17:49 12/20/2017 11:34:27 Hypertensive disorder 67635005 I10 home bp and office are excellent Osteoarthritis 663992815 M19.90 cortisone inject did great and is feeling much better try advil and tylenol Atrial fibrillation 4943 6004 I48.91 quiet and no palpitatio ns Coronary arteriosclerosis 35158890 I25.10 no cp is asymptomat ic reviewed in detail the need to tonny aware of cp syndromes and the diff variants of cp Hyperlipidemia 24681141 E78.5 highly recco he start a statin med long discussion re this [id number] Aba Linares [facility] [address] [facility], [place] [address] 06/06/2018 15:39:31 06/08/2018 08:53:29 Hypertensive disorder 53118449 I10 home bp and office are fair Atrial fibrillation 4943 6004 I48.91 quiet and no palpitatio ns Hyperlipidemia 96392201 E78.5 highly recco he start a statin med long discussion re this Tobacco de pendence syndrome 58642606 F17.200 still smoking Abdominal aortic aneurysm screening 552341657 Z13.6 Hepatitis C screening 41 3817613 Z11.59 Coronary arteriosclerosis 89445559 I25.10 no cp is asymptomat ic reviewed in detail the need to tonny aware of cp syndromes and the diff variants of cp Obstructiv e sleep apnea syndrome 02246111 G47.33 [id number] Aba Linares [facility] [address] [facility],[place] [address] 04/02/2019 15:33:04 04/02/2019 16:05:16 Adult health examination 507298263 Z00.00 doing great and is careful with eating encouraged to walk etc Atrial fibrillation 4943 6004 I48.91 quiet and no palpitatio ns Gastroesop hageal reflux disease 676195776 K21.9 no issues since quitting diet soda, will follow as needed Hyperlipidemia 75982191 E78.5 highly recco he start a statin med long discussion re this Coronary arteriosclerosis 17062449 I25.10 no cp is asymptomat ic reviewed in detail the need to tonny aware of cp syndromes and the diff variants of cp [id number] Aba Linares [facility] [address] [facility],[place] [address] 10/01/2019 15:49:01 10/01/2019 16:17:23 Atrial fibrillation 67077466 I48.91 quiet and no palpitatio ns Coronary arteriosclerosis 54493922 I25.10 no cp is asymptomat ic reviewed in detail the need to tonny aware of cp syndromes and the diff variants of cp Hypertensive disorder 38 466264 I10 home bp and office are fair [id number] Aba Linares [facility] [address] [facility], [place] [address] 12/13/2019 16:02:42 12/13/2019 17:01:26 Atrial fibrillation 92431329 I48.91 quiet and no palpitatio ns Hypertensive disorder 38 053976 I10 home bp and office are ok but has noticed an ongoing cough so we will stop the lisinopril Cough 55661110 R05 stop lisinopril if cough goes away we will substitute with losartan Left Achil les tendinitis 1758199541 12552 M76.62 will do exercises and stretches and add advil on reg basis and let me know [id number] Aba Linares DO [facility] Internal Medicine [address] [facility],[place] [address] 01/03/2020 15:05:31 01/03/2020 15:48:43 Osteoarthritis 173480388 M19.90 cortisone inject to the left knee did great and hopefully will be feeling much better try advil and tylenol as needed [id number] Aba Linares, [facility] Internal Medicine [address] [facility],[place] [address] 03/03/2020 15:22:46 03/03/2020 16:05:24 Hypertensive disorder 59467167 I10 home bp and office are ok but has noticed an ongoing cough so we will stop the lisinopril cough is still just a mild and uncommon event will chk bps at home with a new cuff and will report next visit Atrial fibrillation 4943 6004 I48.91 quiet and no palpitatio ns Abdominal aortic aneurysm screening 395600511 Z13.6 [id number] JASMYNE PIZANO [facility] Internal Medicine [address] [facility], [facility] [address] 07/23/2021 14:07:20 07/27/2021 09:06:44 Dysuria 19224977 R30.9 will send out urine Pressure i njury of sacral region of back 960087067 L89.151 will start with silvadene cream Pain of ri ght shoulder joint 9960662464 8224780 M25.511 given cortisone Recurrent urinary tract infection 617314384 N30.81 will start on cranberry tablets Retrolisthesis 082354570 M43.12 C4 to C5, stable Paraplegia 71454799 G82. 22 has fu with neuro [id number] JASMYNE PIZANO [facility] Internal Medicine [address] [facility] [address] [place] [address] 08/30/2021 13:18:11 08/30/2021 14:20:59 Constipation 45799171 K59.01 will hold XRwill continue Miralax and doculax with the patientmon itor bowel movementma y need XR Acute urin kwame tract infection 184553992 N39.0 N10 will need to continue abx, last day is tomorrowur ine is yellow and clear today Ingrowing nail of toe of right foot 0289067223 9793176 L60.0 dressed in officefu with podiatry [id number] Aba Linares DO [facility] Internal Medicine [address] [facility],[place] [address] 02/28/2022 13:59:42 02/28/2022 16:01:10 Atrial fibrillation 65691478 I48.91 quiet and no palpitatio ns Hepatitis C screening 41 4624970 Z11.59 Hyperlipidemia 21232484 E78.5 highly recco he start a statin med long discussion re this Hypertensive disorder 38 327484 I10 home bp and office are ok but has noticed an ongoing cough so we will stop the lisinopril cough is still just a mild and uncommon event will chk bps at home with a new cuff and will report next visit Active or passive immunization 303879655 Z23 patient advised he is due for flu, tdap, pneu & shingles Psoriasis 2761231 L40.9 [id number] JASMYNE PIZANO [facility] Internal Medicine [address] [facility] [place] [address] 05/31/2022 15:22:17 06/01/2022 09:24:55 Pre-surgery evaluation 460482083 Z01.818 The patient was seen in the office today for pre-op evaluation . All medical conditions on patient's problem list were addressed and are currently stable, no interventi on needed at this time. Based on history and physical performed, the patient is cleared for surgery. Cervical s usman cord injury 839856198 S14.109D stable Chronic ob structive pulmonary disease 94927447 J41.1 stable Hypertensive disorder 38 684391 I10 stable [id number] Aba Linares [facility] Internal Medicine [address] [facility], [place] [address] 07/12/2022 13:51:01 07/12/2022 14:24:01 Chronic obstructive pulmonary disease 19290297 J41.1 no issue with breathingh ad been seen by pulmonary for the dimas and copd using nasal pillows Hypertensive disorder 38 659701 I10 home bp and office are ok but has noticed an ongoing cough so we will stop the lisinopril cough is still just a mild and uncommon event will chk bps at home with a new cuff and will report next visit Atrial fibrillation 4943 6004 I48.91 quiet and no palpitatio ns Hyperlipidemia 75465738 E78.5 highly recco he start a statin med long discussion re this Paraplegia 12845096 G82. 22 has noted his contractio ns of the upper limb Advance care planning 71 7612753 Z71.89 done Coronary arteriosclerosis 20840064 I25.10 no cp is asymptomat ic reviewed in detail the need to tonny aware of cp syndromes and the diff variants of cp Cervical s usman cord injury 042282683 S14.109D his skin remains free of decubiti at the presentno swallow issues [id number] Aba Linares DO [facility] Internal Medicine [address] [facility], [place] [address] 08/23/2022 10:52:48 08/23/2022 12:00:28 Syncope 510676535 R55 [id number] JASMYNE PIZANO [facility] Internal Medicine [address] [facility] [address] 12/23/2022 11:33:33 12/23/2022 14:20:43 Anxiety 90319702 F41.1 stable Atrial fibrillation 4943 6004 I48.11 stable Constipation 88757104 K5 9.01 no change Gastroesop hageal reflux disease 388630961 K21.9 stable Hemorrhoids 66154382 K64 .1 stable Hyperlipidemia 55057203 E78.2 stable Hypertensive disorder 38 158022 I10 stable [id number] Aba Linares DO [facility] Internal Medicine [address] [facility], [address] [facility] [place] [address] 01/27/2023 13:54:48 01/27/2023 15:48:08 Abdominal aortic aneurysm 352305119 I71.40 Atrial fibrillation 4943 6004 I48.11 quiet and no palpitatio ns Chronic ob structive pulmonary disease 79494144 J41.1 no issue with breathingh ad been seen by pulmonary for the dimas and copd using nasal pillows Hyperlipidemia 53944452 E78.2 highly recco he start a statin med long discussion re this Hypertensive disorder 38 186538 I10 home bp and office are ok but has noticed an ongoing cough so we will stop the lisinopril cough is still just a mild and uncommon event will chk bps at home with a new cuff and will report next visit Pressure i njury of buttock stage I 0724504516 8080484 L89.309 wound care nurse [id number] JASMYNE PIZANO [facility] Internal Medicine [address] [facility],[place] [address] 03/27/2023 15:15:03 03/27/2023 16:27:30 Sepsis caused by Pseudomonas 073696845 A41.52 resolved Urethral stricture 40685 002 N35.119 ? anatomical issues Suprapubic urinary catheter in situ 989160911 Z96.[address]. ? correct placement [id number] Aba Linares DO [facility] Internal Medicine [address] [place] [address],[place] [address] 07/28/2023 13:42:45 07/28/2023 14:42:41 Atrial fibrillation 23249316 I48.11 quiet and no palpitatio ns Hypertensive disorder 38 693110 I10 home bp and office are ok but has noticed an ongoing cough so we will stop the lisinopril cough is still just a mild and uncommon event will chk bps at home with a new cuff and will report next visit Coronary arteriosclerosis 57364216 I25.10 no cp is asymptomat ic reviewed in detail the need to tonny aware of cp syndromes and the diff variants of cp Pressure i njury of buttock stage I 9629048780 2052060 L89.309 wound care nurse treating with silvadene Cataract 229420811 H26.9 [id number] JASMYNE PIZANO [facility] Internal Medicine [address] [facility],[place] [address] 12/18/2023 15:02:22 12/18/2023 16:09:34 Sepsis caused by Pseudomonas 910323141 A41.52 resolved Acute urin kwame tract infection 119742119 N30.81 will set up with Hyponatremia 27077814 E8 7.1 Iron defic iency anemia 49473407 D50.0 will recheck his blood work Suprapubic urinary catheter in situ 571734441 Z96.0 causing the recurrent UTI plus due to the kidney stones Chronic ob structive pulmonary disease 10170312 J41.1 stable At [facility] ed risk for falls 278297064 Z91.81 stable today in office 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 4734478995 3738750 L89.304 will set up with fax number per his Erickidinima m difficile colitis 371037211 A04.72 will need to be retested after finishing abx Sore throat 787806064 J0 2.8 swab taken [id number] JASMYNE PIZANO Internal Medicine [address] [facility],[place] [address] 02/14/2024 14:47:38 02/14/2024 15:59:32 Atrial fibrillation 22896645 I48.11 quiet and no palpitatio ns Memory impairment 872908 006 R41.3 [address] up with CT scan Bilateral shoulder joint pain 2824114892 6964536 M25.511 PRN tramadol Kidney stone 15260977 N2 0.[address] up [address] for uro to get it scheduled sooner Anxiety 06923877 F41.1 d/c bupropion [id number] JASMYNE PIZANO Internal Medicine [address] [facility],[place] [address] 04/23/2024 14:49:10 04/23/2024 16:26:14 Paraplegia 30101868 G82.22 stable Memory impairment 941887 [address] Atrial fibrillation 4943 6004 I48.11 will have to change his cardiologi st over [facility] [place] [facility] [place]'t seem clear about the watchman procedure Bilateral shoulder joint pain 0400279485 6828359 M25.511 will set up with small script for the muscle pain [id number] DO Britney Loredo Internal Medicine [address] [facility],[place] [address] 04/29/2024 14:53:46 04/29/2024 15:33:04 Pre-surgery evaluation 191498853 Z01.818 per the 2020 ACC cardiac risk stratifica tion, this patient is deemed a low risk for the cataract surgery under the condition that hIS IV antibiotic is finished treating the coccyx infection caused by a decubitust his should be finished on the of this month . He can not undergo surgery if still receiving ths treatment. [id number] Aretha Patino [facility] Internal Medicine [address] [facility],[place] [address] 07/15/2024 14:45:27 07/15/2024 16:07:22 Esophageal dysmotility 346057474 K22.4 will set up with GI consult Hyponatremia 65972124 E8 7.1 will set up with fu lab work Health Concerns Section Related Observation LastModified by Organization Detai ls LastModified Time None Recorded Concern Status LastModified by Organization Details LastModified Time None Recorded Advance Directives Directive None Recorded Payers Encounter Date Sequence Insurance Name Policy Number Policy Kahn Covered Member ID Kahn Member ID Guarantor Name 12/18/2023 1 [facility] [id number] Eran C Choquette [id number] Eran Choquette 02/14/2024 1 [facility] [id number] Eran C Choquette [id number] Eran Choquette 04/23/2024 1 [facility] [id number] Eran C Choquette [id number] Eran Choquette 04/29/2024 1 [facility] [id number] Eran C Choquette [id number] Eran Choquette 07/15/2024 1 [facility] [id number] Eran C Choquette [id number] Eran Choquette Notes Date Note Type Note [...] 12/24 at 7:30 am JASMYNE PIZANO [address] [place], [address], [facility] Internal Medicine 12/18/2023 15:52:14 4 text/html hospital f/u the patient reports that he is doing okaywas in the hospital for 17 days has uro fuwill take over CT to get sooner appt having slurred speech, Mental status changesrecommended fu CT d/c bupropion start tramadol PRN for shoulder pain instructions written JASMYNE PIZANO [address] [place], [address], [facility] Internal Medicine 02/14/2024 15:54:59 4 text/html TCM [...] to discuss alt previous appt with cardio [employer]ER recommended watchman, having issues with [place] [facility] [place] who keeps referring them back to have uro f/u with a watchman which is not something done by uro recommended cardio through [facility] for more information and follow through with the watchman procedure needed DME order for trash bags for his medical waste disposal, given order to be given 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 tramadol caused hallucinations added to listshoulder still causing paincan cont APAP > added valium for msk relaxer since he hasn't had issues JASMYNE PIZANO [address] [place], [address], [facility] Internal Medicine 04/23/2024 16:14:59 4 text/html Pre-OpReported [...] walk 4 mph Aba Linares DO [address] [place], [address], [facility] Internal Medicine 04/29/2024 15:31:19 5 text/html hospital [...] having hypotension due to thishas fu with head butler, having watchman donehas midodrine, doesn't like the side effects the patient reports that the wound is deepeningthe patient reports that he is having issues swallowing, tends to sip water after everything, the patient the patient reports that he is doing okaythe patient denies depression though he seems like he is depressedthe patient reports that JASMYNE PIZANO [address] [place] [address], [place], [address], [facility] Internal Medicine 07/15/2024 16:05:26
== END 2024-08-20 14:55 | disposition home or self-care (01) ==
LOC: HO.HPS 14:02
PROVIDERS: PCP Internal Medicine; Visit Provider Hospitalist
DX: G47.33 Obstructive sleep apnea (adult) (pediatric) (principal); Z99.89 Dependence on other enabling machines and devices; J98.4 Other disorders of lung; G82.20 Paraplegia, unspecified; G70.9 Myoneural disorder, unspecified; J96.12 Chronic respiratory failure with hypercapnia; G47.39 Other sleep apnea
CPT/HCPCS: 99215; G2211

== ENCOUNTER 2024-09-09 14:47 | Outpatient (AMB) | payer OTHER, SELFPAY ==
--- NOTE | 2024-09-09 14:49 | A.OFFVIS_ITS ---
Vital Signs 09/09/24 14:50 Height 6 ft BMI Reason not done Patient refused/unable BP 118/74 Blood Pressure Location Lt brachial Position Sitting Pulse 57 Intake Visit Reasons: 1 Year Follow up Intake Note: 1 year follow-up with ekg feeling good having watchman next month Concrete Pipe Making Machine Operator Required: No Fiber Product Cutting Machine Operator: Fiber Product Cutting Machine Operator Present Accompanied by: Spouse Allergies No Known Allergies [No Known Allergies*] Allergy (Verified 08/20/24 14:12) Medication List - Last Reconciled 09/09/24 by Robert Rai MD acetaminophen 650 mg PO Q6H PRN amiodarone 100 mg (1/2 x 200 mg) PO DAILY ascorbic acid (vitamin C) 250 mg PO BID baclofen 10 mg PO TID PRN clobetasol 0.05% 1 appl topical BID CPAP (CPAP Machine/Device) As directed docusate sodium 100 mg PO BID PRN ferrous sulfate 324 mg PO DAILY levetiracetam 1,000 mg (10 mL) PO BID 90 days melatonin 10 mg PO BEDTIME PRN methenamine hippurate 1 g PO BID multivitamin 1 tab PO DAILY nystatin 1 appl topical TID pantoprazole 40 mg PO BID [sodium PO] trospium 20 mg PO BID HPI Comments Details: Eran comes for follow-up. He has not had any fibrillation. He is scheduled to undergo Watchman device placement in the near future. He denies any neurologic symptoms. No bleeding issues. Continues to have sacral decubitus but without any infection or drainage. No fever or chills at home. No shortness of breath, orthopnea, PND. CT scan of the chest for Watchman device suggest presence of significant coronary artery disease. There was no evidence of chest pain [facility] Medical History (Updated 09/09/24 @ 15:14 by Robert Rai MD) Paroxysmal atrial fibrillation Complex sleep apnea syndrome Spasticity Bladder spasm Neurogenic bladder Chronic hypercapnic respiratory failure Restrictive lung mechanics due to neuromuscular disease Paraplegia LATANYA on CPAP CAD (coronary artery disease) HTN (hypertension) Surgical History Chronic suprapubic catheter History of carpal tunnel release Hx of colonoscopy Hx of rotator cuff surgery History of hip surgery Family History Father Diabetes HTN (hypertension) CVD (cardiovascular disease) Mother CVD (cardiovascular disease) Diabetes HTN (hypertension) Brother CVD (cardiovascular disease) Diabetes HTN (hypertension) Social History Household Members: Spouse Housing: House Do you presently have visiting nurse or other home services: Yes (visiting nurses, cnas daily) Alcohol intake: former Comment: private CHIEF CREW SCHEDULER in room Patient Tobacco Use Status: Former Tobacco user Tobacco use type: Cigarette Years Smoked: 20 years Advance Directives Date on File: 06/08/23 service: No Review of Systems Const Denies chills, Denies fatigue, Denies fever(s), Denies frequent falls, Denies weakness, Denies weight gain and Denies weight loss ENT Denies dizziness Card Denies chest pain, Denies leg edema, Denies lightheadedness, Denies palpitations, Denies dyspnea, Denies dyspnea on exertion, Denies orthopnea and Denies other (loss of consciousness) Resp Denies cough, Denies dyspnea and Denies dyspnea on exertion GI Denies hematochezia and Denies change in stool character Musc Denies abnormal gait, Denies muscle weakness, Denies numbness, Denies radiating pain into limb and Denies tingling Neuro Denies abnormal gait, Denies dizziness, Denies frequent falls, Denies numbness, Denies tingling and Denies weakness Endo Denies fatigue and Denies palpitations Physical Exam Vital Signs: Last Vital Signs Pulse 57 09/09/24 14:50 BP 118/74 09/09/24 14:50 Const General: cooperative, comfortable and no acute distress Orientation/consciousness: patient oriented x3 HEENT Head: Yes normal to inspection Resp Effort & Inspection: normal respiratory effort Auscultation: clear to auscultation bilaterally, no rales, no rhonchi and no wheezes Cardio Rate: regular rate Rhythm: regular rhythm Heart sounds: S1 normal heart sound present, S2 normal heart sound present, no murmurs and no rubs Neuro General: patient oriented x3 Extrem General: No no pedal edema and No calf tenderness Psych Appearance: grossly normal Mental Status: mental status grossly normal Office Procedures EKG Details: EKG shows sinus bradycardia at 57 beats per minute with normal EKG 27825-Mratqrdjwjovjzqan, Complete Assessment & Plan Assessment & Plan (1) Paroxysmal atrial fibrillation: Code(s): I48.0 - Paroxysmal atrial fibrillation Category: Medical Plan: Paroxysmal atrial fibrillation suppressed on amiodarone therapy with no recurrent episodes. CHADSVASc score of 3, off oral anticoagulation therapy with recurrent bleeding related to the catheter and recurrent urinary tract infection. Can not be on long-term oral anticoagulation therapy. He is scheduled to undergo Watchman device which should help him take off oral anticoagulation therapy in the future. Continue treatment of sleep apnea. Continue amiodarone therapy to suppress atrial fibrillation to avoid hospitalization. Overall long-term prognosis guarded given his limited mobility and bedridden status. Will follow up in the clinic in 6 months time. Coding Level of Care Code Est Pt Level 4 (31040) Complex EM visit Add On G2211 Diagnoses Paroxysmal atrial fibrillation I48.0 CPT Codes EKG - CPT: 41494-Hhmlntkqhpfcztggs, Complete ([id number])
[2024-09-09 14:50] VITALS: BP 118/74; PULSE 57
--- OUTSIDE RECORDS SUMMARY | 2024-09-09 16:22 | XMS_ITS | Encounter Summary ---
Author Organization [facility] Address [address] [place] [address] Care Team Providers Care Signal Fitter Name Role Phone Aba Linares Primary Care Provider Encounter Details Date Type Department Care Team ([facility] st Contact Info) Description 03/10/2021 Scanned Document INTERFACE DEFAULT [address] [place] [address] System, Provider Not In Social History [...] documented as of this encounter Care Teams Signal Fitter Relationship Specialty Start Date End Date MilagrosAba DO [address] [facility] [place] [phone] PCP - General Internal Medicine 03/10/21 documented as of this encounter
--- OUTSIDE RECORDS SUMMARY | 2024-09-09 16:22 | XMS_ITS | Clinical Summary ---
Author Organization [address] Address [address] [place] [address] Phone Care Team Providers Care Italian Teacher Name Role Phone AidenAba olivia Primary Care Provider [phone] Allergies No known active allergies Active Problems Problem Noted Date Diagnosed Date Neurogenic bladder 03/11/2021 Suprapubic catheter dysfunction, initial encount er 03/10/2021 Social History Tobacco Use Types Packs/Day [...] (50+ years) (2 of 2 - PCV) 12/21/2012 12/22/2011 Covid-19 vaccine series (4 - season) 2024 03/10/2022, 08/01/2020, 07/04/2020 Influenza vaccine 01/06/2025 03/10/2022, , 01/20/2021, Additional history exists RSV Immunization (1 - 1-dose 75+ series) 08/08/2027 Meningococcal Vaccine Aged Out No tasneem kareen eligible based on patient's age to complete this topic Medical Devices Implanted Type Area Financial Aids Officer Device Identifier Shelf Expiration Date Model / Serial / Lot Pin Pin Insurance MEDICARE MEDICARE WORKERS COMP GENERIC WORKERS COMP GENERIC Advance Directives * Full ACLS (Latest Code Status on File) Date Activated Date Inactivated Comments 03/11/2021 12:12 AM 03/11/2021 3:08 PM Care Teams Italian Teacher Relationship Specialty Start Date End Date Aba Linares DO [address] [place] [address] PCP - General Internal Medicine 03/10/21
--- OUTSIDE RECORDS SUMMARY | 2024-09-09 16:22 | XMS_ITS | Clinical Summary ---
Author Organization [facility] Address [address] [place] [address] Care Team Providers Care Medical Biller/Coder Name Role Phone Unavailable Primary Care Provider [...] Documents on File Type Date Recorded Patient Wound Care Specialist Expl anation Health Care Decision (hx) [...]
--- OUTSIDE RECORDS SUMMARY | 2024-09-09 16:22 | XMS_ITS | Data Portability ---
Author Organization [facility] Home Service Address [address] [place] [address] Assessment No assessment recorded. Plan of Treatment Reminders Order Date Submit Date Provider Last Modified By Organization Details Last Modified Time Details Appointments None recorded. Lab CMP, serum or plasma 2024 025 [facility], [address] [place] [address], [address], 5 13:21:07 magnesium, serum or plasma 2024 025 [facility], [address] [place] [address], [address], 5 16:20:10 CBC w/ auto diff 2024 025 [facility], [address] [place] [address], [address], 5 13:21:07 urinalysis complete, reflex culture 2023 024 [facility], [address] [place] [address], [address], 4 15:38:46 culture, throat 2023 024 [facility], [address] [place] [address], [address], 4 12:18:48 C diff toxin A+B, qualitativ e, stool 2023 024 [facility], [address] [place], [place] [address], [place], [address], 4 11:25:33 CMP, serum or plasma 2023 [facility], [address] [place] [address], [place], [address], 4 15:41:27 iron + TIBC + ferritin, serum 2023 [facility], [address] [place] [address], [address], 4 15:41:27 CBC w/ auto diff 2023 [facility], [address] [place] [address], [address], 4 08:41:32 Referral gastroente rologist referral - 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 Surgeries None recorded. Imaging CT, head + brain, w/o contrast 2023 024 [facility], [address] [facility] [facility], [place], [address], 4 08:21:00 CT, kidney, w/o contrast - needs fu with for his urology after kidney surgery for stone removal 2023 024 [email or web address] [facility] [place], [address] [facility], [address], [place], [address], 08:13:24 Medication Orders diazepam 2 mg tablet 2023 HAL Thomas [id number] ([facility]), [address] [place], [place], [id number], 15:28:45 tramadol 50 mg tablet 2023 024 [facility] [address] ([facility]27), [address] [place], [place], [id number], 15:50:21 Patient TargetsNo targets recorded. Patient Instructions Encounter Date Encounter Id Patient Instructions Last Modified By Organization Details Last Modified Time 12/18/2023 [id number] advance care planning: care instructions [email or web address] Not available 12/18/2023 15:21:10 Reason for Referral fax [phone] Referring Physician: Ashley Price, Internal Medicine, Encounter Date: 12/18/2023 [employer] Referral for At rial fibrillation needs discussion of possible watchman, given issues with afib and blood thinner Referring Physician: Ashley Price, Internal Medicine, Encounter Date: 04/23/2024 [employer] Referral for Esophageal dysmotility ? esophageal dysmotility, [...] 2 view No observ ation record ed. [email or web address] (Medical Records) [address] [place], [address], 11/29/2023 13:28:25 01/09/20 24 01/09/2024 XR, chest , 2 view No observ ation record ed. [email or web address] [facility] (Medical Records) [address] [place], [address], 01/09/2024 09:35:33 01/09/20 24 01/09/2024 CT, head + neck, w/o contr ast No observ ation record ed. [address] (Medical Records) [address] [facility] [place] [address], 01/09/2024 13:47:26 01/09/20 24 01/09/2024 CT, abdom en, w/o contr ast No observ ation record ed. [address] (Medical Records) [address] [place], [address], 01/09/2024 13:47:48 01/09/20 24 01/09/2024 CT, chest + abdom en + pelvi s, w/o contr ast No observ ation record ed. [address] (Medical Records) [address] [place], [address], 01/09/2024 13:48:14 01/10/20 24 01/09/2024 rhyth m EKG, 1-3 leads No observ ation record ed. [facility] (Medical Records) [address] [place], [address], 01/10/2024 15:03:19 01/11/20 24 01/11/2024 XR, chest , 2 view No observ ation record ed. [email or web address] [facility] (Medical Records) [address] [place], [address], 01/12/2024 07:02:30 01/12/20 24 01/11/2024 lumba r punct ure (PROC ) No observ ation record ed. [facility] (Medical Records) [address] [place], [address], 01/12/2024 13:29:29 01/12/20 24 01/11/2024 MRI, brain , w/o contr ast No observ ation record ed. [facility] (Medical Records) [address] [place], [address], 01/12/2024 13:50:57 01/13/20 24 01/10/2024 elect roenc ephal ogram No observ ation record ed. [email or web address] [facility] (Medical Records) [address] [place], [address], 01/14/2024 23:02:14 01/23/20 24 01/22/2024 guillermo green No observ ation record ed. [facility] (Medical Records) [address] [place], [address], 02/16/2024 13:46:16 02/09/20 24 02/09/2024 XR, pyelo gram No observ ation record ed. [facility] Diagn[facility] Imaging Dept [address] [place] [address], [address], 02/16/2024 13:45:37 03/05/20 24 03/05/2024 CT, head + brain , w/o contr ast No observ ation record ed. [email or web address] [facility] [address] [place], [address], 03/05/2024 14:13:58 04/10/20 24 01/11/2024 fluor oscop ic guide d lumba r facet stero id injec tion (PROC ) No observ [facility]ion [facility] ed. [email or web address] [address] [place], [address], 04/10/2024 12:12:09 04/10/20 24 01/22/2024 guillermo bailey study No observ ation record ed. [facility] (Medical Records) [address] [facility], [place], [address], 04/10/2024 12:12:32 Result Notes None recorded. Problems Name Problem SNOMED Code Status Onset Date Resolution Date Notes Provider Name and Address Organization Details Recorded Time Tobacco dependen ce syndrome 52513092 Completed 201704/02/2019 Aba Linares DO [address] [place] [address], [address], [facility] 9 15:59:49 Harmful pattern of use of alcohol 88811921 Completed 201712/20/2017 Aba Linares DO [address] [place] [address], [address], [facility] 8 11:19:44 Polyp of colon 93761472 Active 2017 Not Available [facility] 3 10:33:08 History of hernia repair 35497406249 109 Active 2017 x2 Not Available [facility] 3 10:33:08 Atrial fibrilla tion 24665631 Active 2017 Not Available [facility] 3 10:33:08 Renal failure syndrome 95545826 Active 2017 Not Available [facility] 3 10:33:08 Osteoart hritis 095747969 Active 2017 Not Available [facility] 3 10:33:08 Glaucoma 39602343 Active 2017 Not Available [facility] 3 10:33:07 Gastroes ophageal reflux disease 506904852 Active 2017 Not Available [facility] 3 10:33:07 Hemorrho ids 60904111 Active 2017 Not Available [facility] 3 10:33:08 Coronary arterios clerosis 17096736 Active 2017 Not Available [facility] 3 10:33:08 Hyperten sive disorder 59976827 Active 2017 Not Available [facility] 3 10:33:07 Obesity 117027083 Active 2017 Not Available [facility] 3 10:33:08 Hyperlip idemia 05507363 Active 2017 Not Available [facility] 3 10:33:08 Abdomina l aortic aneurysm 769742535 Active 03/27 is 3.1cm Not Available [facility] 3 10:33:07 Neurogen ic urinary bladder 317307487 Active 2021 Not Available [facility] 3 10:33:08 Cholecys titis 33902884 Active 2021 Not Available [facility] 3 10:33:08 COVID-19 823674485 Active 2021 Not Available [facility] 3 10:33:08 Neuropat hy 987900927 Active 2021 Not Available [facility] 3 10:33:08 Hypotens ashley episode 90829564 Active 2021 Not Available [facility] 3 10:33:08 Constipa tion 57796663 Active 2021 Not Available [facility] 3 10:33:07 Candidia sis of skin 54573432 Active 2021 Not Available [facility] 3 10:33:08 Acute urinary tract infectio n 430751863 Active 2021 Not Available [facility] 3 10:33:08 Ingrowin g nail of toe of right foot 53671892815 557418 Active 2021 Not Available [facility] 3 10:33:07 Psoriasi s 9046093 Active 2021 Not Available [facility] 3 10:33:08 Cervical spinal cord injury 119740591 Active 2021 Not Available [facility] 3 10:33:08 Parapleg ia 81088772 Active 2022 Not Available [facility] 3 10:33:08 Anxiety 67148056 Active 2022 Not Available [facility] 3 10:33:08 Internal hemorrho ids 27790301 Active 2022 Not Available [facility] 3 10:33:08 Syncope 525289554 Active 2022 Not Available [facility] 3 10:33:07 Pain of left shoulder joint 07838299774 373810 Active 2022 Not Available [facility] 3 10:33:07 Pressure injury of buttock stage I 63280673399 535152 Active 2022 Not Available [facility] 3 10:33:07 Allergic conjunct ivitis 746980102 Active 2022 Not Available [facility] 3 10:33:08 Sepsis caused by Pseudomo og 368306882 Active 2022 Not Available [facility] 3 10:33:08 Urethral strictur e 66451727 Active 2022 Not Available [facility] 3 10:33:08 Skin lesion 98013608 Active 2023 JASMYNE PIZANO [address] [place], [address], [facility] 4 12:27:06 Cataract 938709917 Active 2023 Aba Linares DO [address] [place] [address], [address], [facility] 4 14:23:35 Allergic conjunct ivitis 513520090 Active 2023 JASMYNE PIZANO [address] [place], [address], [facility] 4 13:52:55 Recurren t urinary tract infectio n 262603111 Active 2023 Aba Linares DO [address] [place] [address], [address], [facility] 4 22:30:00 Hyponatr emia 61135968 Active 2023 JASMYNE PIZANO [address] [place], [address], [facility] 4 08:45:39 Iron deficien cy anemia 82846340 Active 2023 JASMYNE PIZANO [address] [place], [address], [facility] 4 08:45:49 Pressure injury of buttock stage IV 76022908788 438649 Active 2023 JASMYNE PIZANO [address] [place] [address], [address], [facility] 4 15:32:31 Clostrid ium difficil e colitis 483243474 Active 2023 JASMYNE PIZANO [address] [place] [address], [address], [facility] 4 15:37:24 Sore throat 492308545 Active 2023 JASMYNE PIZANO [address] [place] [address], [address], [facility] 4 15:38:00 Infectio n by Era albicans 28497602 Active 2023 JASMYNE PIZANO [address] [place] [address], [address], [facility] 4 12:30:56 Depressi ve disorder 87709532 Active 2023 Aba Linares, [address] [place] [address], [address], [facility] 4 14:06:56 Memory impairme nt 084685846 Active 2023 JASMYNE PIZANO [address] [place] [address], [address], [facility] 4 15:41:42 Bilatera l shoulder joint pain 05264562191 367433 Active 2023 JASMYNE PIZANO [address] [place] [address], [address], [facility] 4 15:48:53 Kidney stone 92323680 Active 2023 JASMYNE PIZANO [address] [place] [address], [address], [facility] 4 15:50:22 Osteomye litis of coccyx 717368520 Active 2023 Aba Linares DO [address] [place] [address], [address], [facility] 4 15:23:34 Anemia 911170870 Active 2024 Aba Linares DO [address] [place] [address], [address], [facility] 5 09:04:44 Esophage al dysmotil ity 020964867 Active 2024 JASMYNE PIZANO [address] [place] [address], [address], [facility] 5 15:57:39 Problem Notes None recorded. Procedures Surgical History Date Name Laterality Status Provider Name and Address Organization Details Recorded Time 022 WOUND CARE completed JASMYNE PIZANO [address] [place] [address], [address], [facility] 08/30/2021 14:12:41 022 Joint Injection completed JASMYNE PIZANO [address] [place] [address], [address], [facility] 07/23/2021 14:48:14 020 Corticosteroid Injection completed Aba Linares DO [address] [place] [address], [address], [facility] 01/03/2020 15:39:03 018 Corticosteroid Injection completed Aba Linares DO [address] [place] [address], [address], [facility] 12/04/2017 16:42:28 Imaging Results Imaging Date Name Status LastModified by Organization Details LastModified Time 11/03/2023 XR, chest, 2 view completed [address] (Medical Records) [address] [facility] [place], [address], 11/29/2023 13:28:25 01/09/2024 XR, chest, 2 view completed [email or web address] [facility] (Medical Records) [address] [facility] [place], [address], 01/09/2024 09:35:33 01/09/2024 CT, head + neck, w/o contrast completed [address] (Medical Records) [address] [place], [address], 01/09/2024 13:47:26 01/09/2024 CT, abdomen, w/o contrast completed [address] (Medical Records) [address] [place], [address], 01/09/2024 13:47:48 01/09/2024 CT, chest + abdomen + pelvis, w/o contrast completed [address] (Medical Records) [address] [place], [address], 01/09/2024 13:48:14 01/09/2024 rhythm EKG, 1-3 leads completed [facility] (Medical Records) [address] [place], [address], 01/10/2024 15:03:19 01/11/2024 XR, chest, 2 view completed [email or web address] [facility] (Medical Records) [address] [place], [address], 01/12/2024 07:02:30 01/11/2024 lumbar puncture (PROC) completed [facility] (Medical Records) [address] [place], [address], 01/12/2024 13:29:29 01/11/2024 MRI, brain, w/o contrast completed [facility] (Medical Records) [address] [place], [address], 01/12/2024 13:50:57 01/10/2024 electroencephalogram completed [email or web address] [place] [address] (Medical Records) [address] [place], [address], 01/14/2024 23:02:14 01/22/2024 barium swallow study completed [facility] (Medical Records) [address] [place], [address], 02/16/2024 13:46:16 02/09/2024 XR, pyelogram completed [facility] Dept [address] [place], [address], 02/16/2024 13:45:37 03/05/2024 CT, head + brain, w/ o contrast completed [email or web address] [facility] [address] [place], [address], 03/05/2024 14:13:58 01/11/2024 fluoroscopic guided lumbar facet steroid injection (PROC) completed [facility] (Medical Records) [address] [place], [address], 04/10/2024 12:12:09 01/22/2024 barium swallow study completed [facility] (Medical Records) [address] [place], [address], 04/10/2024 12:12:32 Procedure Notes None recorded. Medical Equipment None Reported. Allergies Allergen ID Allergen Name Allergen Category Reaction Reaction Severity Criticality Documentation Date Start Date Code Code System Note Provider Name and Address Organization Details Recorded Time 8611 tramadol medicatio n hallucina tions Not available Not available 04/23/2024 24149 RxNorm JASMYNE PIZANO [address] [place], [address], [facility] 4 15:09:52 Medications Name Sig Start [...] 2020 active Not Available Not Available Not Avai lable Culturelle 10 billion cell capsule TAKE 1 [...] Not Available Not Avai lable Flucelvax Quad 1241-0837 (PF) 60 mcg (15 mcg x 4)/0.5 [...] completed Not Available Not Available Not Available [employer] COVID-19 Ag Self Test kit DIRECTED 05/31 [...] mg-100 mg tablets in a dose pack (Moderate Renal Dose) TAKE 2 TABLETS BY MOUTH TWICE [...] % 128 mm[Hg] 80 mm[Hg] Keren Lucio [facility] 4 15:11:55 Date Recorded Body height Heart rate Oxygen saturation Oxygen saturation in Arterial blood by Pulse oximetry Systolic blood pressure Diastolic blood pressure Provider Name and Address Organization Details Last Updated DateTime 4 173.36 cm 51 /min 95 % 95 % 128 mm[Hg] 78 mm[Hg] Keren Lucio [facility] 4 15:09:19 Date Recorded Body height Oxygen saturation Oxygen saturation in Arterial blood by Pulse oximetry Heart rate Systolic blood pressure Diastolic blood pressure Provider Name and Address Organization Details Last Updated DateTime 4 173.36 cm 95 % 95 % 62 /min 100 mm[Hg] 60 mm[Hg] Cris Otto [facility] 4 14:57:17 Date Recorded Body height Body mass index (BMI) Body weight Heart rate Oxygen saturation Oxygen saturation in Arterial blood by Pulse oximetry Systolic blood pressure Diastolic blood pressure Provider Name and Address Organization Details Last Updated DateTime 4 173.36 cm 27.2 kg/m2 25499.6 3 g 66 /min 95 % 95 % 92 mm[Hg] 58 mm[Hg] Mazin Marin [facility] 4 15:04:39 Date Recorded Body height Systolic blood pressure Diastolic blood pressure Provider Name and Address Organization Details Last Updated DateTime 07/15/2024 173.36 cm 110 mm[Hg] 68 mm[Hg] Cris Otto [facility] 07/15/2024 15:09:42 Social History Question Answer Notes LastModified by Organizat ion Details LastModified Time Tobacco Smoking Status Former Smoker Aba MarlenEmma Linares, [address] [place], [address], [facility] 04/02/2019 15:39:17 What Was The [...] virus, quadrivalent, preservative 1 completed Not Available [facility] 03/11/2021 16:08:46 Influenza, split virus, quadrivalent, preservative 2 completed Consuelo echeverria [facility] Internal [facility] 03/14/2022 07:46:37 COVID-19, mRNA, LNP-S, PF, 100 mcg/0.5mL dose or 50 mcg/0.25mL dose 2 completed Consuelo echeverria [facility] 03/14/2022 07:46:47 zoster, unspecified formulation 2 completed Aba Linares DO [address] [place] [address], [address], [facility] 07/12/2022 13:59:55 zoster, unspecified formulation 8 completed Fang echeverria [facility] 07/12/2022 14:03:45 Influenza, split virus, quadrivalent, preservative 8 completed Not Available [facility] 03/11/2021 16:08:46 Influenza, split virus, quadrivalent, preservative 9 completed Not Available [facility] 03/11/2021 16:08:46 zoster live 9 completed Not Available [facility] 03/11/2021 16:08:46 Influenza, split virus, quadrivalent, preservative 0 completed Not Available [facility] 03/11/2021 16:08:46 COVID-19, mRNA, LNP-S, PF, 100 mcg/0.5mL dose or 50 mcg/0.25mL dose 1 completed Not Available [facility] 03/11/2021 16:08:46 COVID-19, mRNA, LNP-S, PF, 100 mcg/0.5mL dose or 50 mcg/0.25mL dose 1 completed Not Available [facility] 03/11/2021 16:08:46 Past Encounters Encounter ID Performer Location Encounter Start Date Encounter Closed Date Diagnosis/Indication Diagnosis SNOMED-CT Code Diagnosis ICD10 Code Diagnosis Note [id number] Aba Linares [facility] [address] [facility], [place] [address] 12/04/2017 16:12:34 12/07/2017 10:13:24 Osteoarthritis 092968274 M19.90 cortisone inject well tolerated if not helpful will need mri try advil and tylenol [id number] Aba Linares DO [facility] [address] [facility], [place] [address] 12/20/2017 10:17:49 12/20/2017 11:34:27 Hypertensive disorder 98192663 I10 home bp and office are excellent Osteoarthritis 173559842 M19.90 cortisone inject did great and is feeling much better try advil and tylenol Atrial fibrillation 4943 6004 I48.91 quiet and no palpitatio ns Coronary arteriosclerosis 09453545 I25.10 no cp is asymptomat ic reviewed in detail the need to tonny aware of cp syndromes and the diff variants of cp Hyperlipidemia 06355674 E78.5 highly recco he start a statin med long discussion re this [id number] Aba Linares [facility] [address] [facility],[place] [address] 06/06/2018 15:39:31 06/08/2018 08:53:29 Hypertensive disorder 90072624 I10 home bp and office are fair Atrial fibrillation 4943 6004 I48.91 quiet and no palpitatio ns Hyperlipidemia 42804390 E78.5 highly recco he start a statin med long discussion re this Tobacco de pendence syndrome 07733497 F17.200 still smoking Abdominal aortic aneurysm screening 062398345 Z13.6 Hepatitis C screening 41 7551907 Z11.59 Coronary arteriosclerosis 98580056 I25.10 no cp is asymptomat ic reviewed in detail the need to tonny aware of cp syndromes and the diff variants of cp Obstructiv e sleep apnea syndrome 36002480 G47.33 [id number] Aba Linares [facility] [address] [facility],[place] [address] 04/02/2019 15:33:04 04/02/2019 16:05:16 Adult health examination 492654291 Z00.00 doing great and is careful with eating encouraged to walk etc Atrial fibrillation 4943 6004 I48.91 quiet and no palpitatio ns Gastroesop hageal reflux disease 414292194 K21.9 no issues since quitting diet soda, will follow as needed Hyperlipidemia 71463982 E78.5 highly recco he start a statin med long discussion re this Coronary arteriosclerosis 79863679 I25.10 no cp is asymptomat ic reviewed in detail the need to tonny aware of cp syndromes and the diff variants of cp [id number] Aba Linares [facility] [address] [facility] [employer] [facility] [place] [address] 10/01/2019 15:49:01 10/01/2019 16:17:23 Atrial fibrillation 54388926 I48.91 quiet and no palpitatio ns Coronary arteriosclerosis 23275154 I25.10 no cp is asymptomat ic reviewed in detail the need to tonny aware of cp syndromes and the diff variants of cp Hypertensive disorder 38 808000 I10 home bp and office are fair [id number] Aba Linares [facility] [address] [facility] [place] [address] 12/13/2019 16:02:42 12/13/2019 17:01:26 Atrial fibrillation 07738874 I48.91 quiet and no palpitatio ns Hypertensive disorder 38 635055 I10 home bp and office are ok but has noticed an ongoing cough so we will stop the lisinopril Cough 49688998 R05 stop lisinopril if cough goes away we will substitute with losartan Left Achil les tendinitis 5370392181 35337 M76.62 will do exercises and stretches and add advil on reg basis and let me know [id number] Aba Linares [facility] Medicine [address] [facility],[employer] [place] [address] 01/03/2020 15:05:31 01/03/2020 15:48:43 Osteoarthritis 627048372 M19.90 cortisone inject to the left knee did great and hopefully will be feeling much better try advil and tylenol as needed [id number] Aba Linares [facility] [address] [place] [address],[place] [address] 03/03/2020 15:22:46 03/03/2020 16:05:24 Hypertensive disorder 35177507 I10 home bp and office are ok but has noticed an ongoing cough so we will stop the lisinopril cough is still just a mild and uncommon event will chk bps at home with a new cuff and will report next visit Atrial fibrillation 4943 6004 I48.91 quiet and no palpitatio ns Abdominal aortic aneurysm screening 339617502 Z13.6 12168 Aba Linares [facility] [address] [place] [address],[employer] [place] [place] [address] 07/23/2021 14:07:20 07/27/2021 09:06:44 Dysuria 10453213 R30.9 will send out urine Pressure i njury of sacral region of back 245788154 L89.151 will start with silvadene cream Pain of ri ght shoulder joint 2490453139 0357906 M25.511 given cortisone Recurrent urinary tract infection 405806746 N30.81 will start on cranberry tablets Retrolisthesis 464508209 M43.12 C4 to C5, stable Paraplegia 95564081 G82. 22 has fu with neuro 23064 Aba Linares [facility] [address] [facility] [place] [address] 08/30/2021 13:18:11 08/30/2021 14:20:59 Constipation 41973026 K59.01 will hold XRwill continue Miralax and doculax with the patientmon itor bowel movementma y need XR Acute urin kwame tract infection 555483025 N39.0 N10 will need to continue abx, last day is tomorrowur ine is yellow and clear today Ingrowing nail of toe of right foot 2324851530 0839363 L60.0 dressed in officefu with podiatry 36950 bAa Linares [facility] [address] [facility],[place] [address] 02/28/2022 13:59:42 02/28/2022 16:01:10 Atrial fibrillation 59667112 I48.91 quiet and no palpitatio ns Hepatitis C screening 41 1023428 Z11.59 Hyperlipidemia 29288394 E78.5 highly recco he start a statin med long discussion re this Hypertensive disorder 38 713568 I10 home bp and office are ok but has noticed an ongoing cough so we will stop the lisinopril cough is still just a mild and uncommon event will chk bps at home with a new cuff and will report next visit Active or passive immunization 321407756 Z23 patient advised he is due for flu, tdap, pneu & shingles Psoriasis 0236976 L40.9 79566 Aba Linares [facility] [address] [place] [address],[place] [address] 05/31/2022 15:22:17 06/01/2022 09:24:55 Pre-surgery evaluation 383613500 Z01.818 The patient was seen in the office today for pre-op evaluation . All medical conditions on patient's problem list were addressed and are currently stable, no interventi on needed at this time. Based on history and physical performed, the patient is cleared for surgery. Cervical s usman cord injury 433597275 S14.109D stable Chronic ob structive pulmonary disease 19115248 J41.1 stable Hypertensive disorder 38 935232 I10 stable 35581 Aba Linares [facility] [address] [facility],[place] [address] 07/12/2022 13:51:01 07/12/2022 14:24:01 Chronic obstructive pulmonary disease 04774315 J41.1 no issue with breathingh ad been seen by pulmonary for the dimas and copd using nasal pillows Hypertensive disorder 38 655347 I10 home bp and office are ok but has noticed an ongoing cough so we will stop the lisinopril cough is still just a mild and uncommon event will chk bps at home with a new cuff and will report next visit Atrial fibrillation 4943 6004 I48.91 quiet and no palpitatio ns Hyperlipidemia 16258008 E78.5 highly recco he start a statin med long discussion re this Paraplegia 57988252 G82. 22 has noted his contractio ns of the upper limb Advance care planning 71 7630475 Z71.89 done Coronary arteriosclerosis 21997306 I25.10 no cp is asymptomat ic reviewed in detail the need to tonny aware of cp syndromes and the diff variants of cp Cervical s usman cord injury 188237616 S14.109D his skin remains free of decubiti at the presentno swallow issues 05375 Aba Linares [facility] [address] [facility],[place] [address] 08/23/2022 10:52:48 08/23/2022 12:00:28 Syncope 583355832 R55 18585 Aba Linares [facility] [address] [facility],[place] [address] 12/23/2022 11:33:33 12/23/2022 14:20:43 Anxiety 40022703 F41.1 stable Atrial fibrillation 4943 6004 I48.11 stable Constipation 29702843 K5 9.01 no change Gastroesop hageal reflux disease 733520186 K21.9 stable Hemorrhoids 97570654 K64 .1 stable Hyperlipidemia 25302073 E78.2 stable Hypertensive disorder 38 868308 I10 stable 30800 Aba Linares [facility] [address] [facility],[place] [address] 01/27/2023 13:54:48 01/27/2023 15:48:08 Abdominal aortic aneurysm 890719314 I71.40 Atrial fibrillation 4943 6004 I48.11 quiet and no palpitatio ns Chronic ob structive pulmonary disease 61588639 J41.1 no issue with breathingh ad been seen by pulmonary for the dimas and copd using nasal pillows Hyperlipidemia 67300715 E78.2 highly recco he start a statin med long discussion re this Hypertensive disorder 38 301375 I10 home bp and office are ok but has noticed an ongoing cough so we will stop the lisinopril cough is still just a mild and uncommon event will chk bps at home with a new cuff and will report next visit Pressure i njury of buttock stage I 6102340618 1362811 L89.309 wound care nurse 90889 Aba Linares [facility] [address] [facility], [place] [address] 03/27/2023 15:15:03 03/27/2023 16:27:30 Sepsis caused by Pseudomonas 563358911 A41.52 resolved Urethral stricture 44612 002 N35.119 ? anatomical issues Suprapubic urinary catheter in situ 569007603 Z96.[address]. ? correct placement [id number] Aba Linares [facility] [address] [facility], [place] [address] 07/28/2023 13:42:45 07/28/2023 14:42:41 Atrial fibrillation 61700527 I48.11 quiet and no palpitatio ns Hypertensive disorder 38 281254 I10 home bp and office are ok but has noticed an ongoing cough so we will stop the lisinopril cough is still just a mild and uncommon event will chk bps at home with a new cuff and will report next visit Coronary arteriosclerosis 50453812 I25.10 no cp is asymptomat ic reviewed in detail the need to tonny aware of cp syndromes and the diff variants of cp Pressure i njury of buttock stage I 9806397256 5345317 L89.309 wound care nurse treating with silvadene Cataract 063660508 H26.9 480645 Aba Linares [facility] [address] [facility],[place] [address] 12/18/2023 15:02:22 12/18/2023 16:09:34 Sepsis caused by Pseudomonas 324135790 A41.52 resolved Acute urin kwame tract infection 453990144 N30.81 will set up with Hyponatremia 81546486 E8 7.1 Iron defic iency anemia 43410858 D50.0 will recheck his blood work Suprapubic urinary catheter in situ 025006126 Z96.0 causing the recurrent UTI plus due to the kidney stones Chronic ob structive pulmonary disease 99080895 J41.1 stable [facility] 069008171 Z91.81 stable today in office 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 0135428943 3638663 L89.304 will set up with fax number per his Demian crane difficile colitis 894949105 A04.72 will need to be retested after finishing abx Sore throat 641311122 J0 2.8 swab taken [id number] Aba Linares [facility] [address] [facility], [place] [address] 02/14/2024 14:47:38 02/14/2024 15:59:32 Atrial fibrillation 64969533 I48.11 quiet and no palpitatio ns Memory impairment 331701 006 R41.3 [address] up with CT scan Bilateral shoulder joint pain 8892351792 0101231 M25.511 PRN tramadol Kidney stone 73390822 N2 0.[address] up [address] for uro to get it scheduled sooner Anxiety 83906307 F41.1 d/c bupropion 059011 Aba Linares [facility] [address] [facility], [place] [address] 04/23/2024 14:49:10 04/23/2024 16:26:14 Paraplegia 00010300 G82.22 stable Memory impairment 331943 [address] Atrial fibrillation 4943 6004 I48.11 will have to change his cardiologi st over [facility] since [facility] doesn't seem clear about the watchman procedure Bilateral shoulder joint pain 9376869217 7236206 M25.511 will set up with small script for the muscle pain [id number] Aba Linares DO [facility] Internal Medicine [address] [facility], [place] [address] 04/29/2024 14:53:46 04/29/2024 15:33:04 Pre-surgery evaluation 794969441 Z01.818 per the 2020 ACC cardiac risk stratifica tion, this patient is deemed a low risk for the cataract surgery under the condition that hIS IV antibiotic is finished treating the coccyx infection caused by a decubitust his should be finished on the of this month . He can not undergo surgery if still receiving ths treatment. [id number] Aba MarlenEmma Milagros [facility] [address] [facility],[place] [address] 07/15/2024 14:45:27 07/15/2024 16:07:22 Esophageal dysmotility 864547204 K22.4 will set up with GI consult Hyponatremia 87633894 E8 7.1 will set up with fu lab work Health Concerns Section Related Observation LastModified by Organization Detai ls LastModified Time None Recorded Concern Status LastModified by Organization Details LastModified Time None Recorded Advance Directives Directive None Recorded Payers Encounter Date Sequence Insurance Name Policy Number Policy Kahn Covered Member ID Kahn Member ID Guarantor Name 12/18/2023 1 [facility] [id number] Eran C Choquette [id number] Eran Choquette 02/14/2024 1 [facility] [id number] Eran C Choquette [id number] Eran Choquette 04/23/2024 1 [facility] [id number] Eran C Choquette [id number] Eran Choquette 04/29/2024 1 [facility] [id number] Eran C Choquette [id number] Eran Choquette 07/15/2024 1 [facility] [id number] Eran C Choquette [id number] Eran Choquette Notes Date Note Type Note Provider Name and Address Organization Details Recorded Time 08/12/202 4 text/html TCM 7 patient developed acute onset [...] 12/24 at 7:30 am JASMYNE PIZANO [address] [place], [address], [facility] 12/18/2023 15:52:14 4 text/html hospital f/u the patient reports that he is doing okaywas in the hospital for 17 days has uro fuwill take over CT to get sooner appt having slurred speech, Mental status changesrecommended fu CT d/c bupropion start tramadol PRN for shoulder pain instructions written JASMYNE PIZANO [address] [place], [address], [facility] 02/14/2024 15:54:59 4 [...] to discuss alt previous appt with cardio GED TUTOR recommended watchman, having issues with the doc at [facility] cardio who keeps referring them back to have uro f/u with a watchman which is not something done by uro recommended cardio through [facility] for more information and follow through with the watchman procedure needed DME order for trash bags for his medical waste disposal, given order to be given 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 tramadol caused hallucinations added to listshoulder still causing paincan cont APAP > added valium for msk relaxer since he hasn't had issues JASMYNE PIZANO [address] [place], [address], [facility] 04/23/2024 16:14:59 4 [...] walk 4 mph Aba Linares DO [address] [place], [address], [facility] 04/29/2024 15:31:19 5 [...] having hypotension due to thishas fu with compliance clerk, having watchman donehas midodrine, doesn't like the side effects the patient reports that the wound is deepeningthe patient reports that he is having issues swallowing, tends to sip water after everything, the patient the patient reports that he is doing okaythe patient denies depression though he seems like he is depressedthe patient reports that JASMYNE PIZANO [address] [place] [address], [place], [address], [facility] 07/15/2024 16:05:26
--- OUTSIDE RECORDS SUMMARY | 2024-09-09 16:22 | XMS_ITS | Clinical Summary ---
Author Organization [facility] Address [address] [place] [address] Care Team Providers Care Mens Locker Room Attendant Name Role Phone Unavailable Primary [...] TIMES A DAY 0 07/05/2021 Active Baclofen 68185 MCG/20ML SOSY 20 mL by Intrathecal route. [...] Eran Guerrero Workers Comp Self 1950 [address] [facility] [place], [place] Eran Guerrero Personal/Family Self 1950 [address] [facility], [place] Eran Guerrero TPL/AUTO Self 1950 [address] [place] [address]
== END 2024-09-09 15:25 | disposition home or self-care (01) ==
LOC: HO.HCS 14:48
PROVIDERS: PCP Internal Medicine; Visit Provider Internal Medicine Cardiovascular Disease
DX: I48.0 Paroxysmal atrial fibrillation (principal)
CPT/HCPCS: 93010; 99214; G2211

== ENCOUNTER → 2024-09-09 14:47 | Outpatient (BNVA) | payer OTHER, SELFPAY | PROVIDERS: PCP Internal Medicine; Visit Provider Internal Medicine Cardiovascular Disease | DX: I48.0 Paroxysmal atrial fibrillation (principal); Z87.891 Personal history of nicotine dependence | CPT/HCPCS: 93005; 99212 ==

== ENCOUNTER 2024-10-23 18:14 | Outpatient (REF) | payer OTHER, SELFPAY ==
--- OUTSIDE RECORDS SUMMARY | 2024-10-17 23:59 | XMS_ITS | Continuity of Care Document ---
Author Organization [facility] Address [address] [place] [address]- Care Team Providers Care Lode Miner Blasting Name Role Phone Aba Linares DO Marlen Primary Care Physician [phone] Encounter [facility] Date(s): 09/17/24 - 10/17/24 [facility] [address] [place] [address]- Attending Physician: Sumaya Rod Admitting Physician: AdmtrSumaya Referring Physician: AdmtrSumaya Encounter Type: Triage Allergies, Adverse Reactions, Alerts [...] virus vaccine, inactivated 04/17/16 Rohit rded SARS-CoV-2(COVID-19)mRNA-LNP vac(stw583) 02/24/24 Recorded SARS-CoV-2(COVID-19)mRNA-LNP vac(pxi159) 04/15/23 Recorded RSV vaccine preF3, recombinant 04/15/23 Recorded [id number] bivalent booster vax 03/10/22 Recorded zoster vaccine, [...] 11:37:00 AM EST, Route to Pharmacy Electronically, [facility], Partial fill upon patient [...] Refills, Maintenance, 07/01/24 2:04:00 PM EST, Tablet, [facility] [address] ([facility] 827), Partial fill upon patient request [...] Spasm, # 90 tablet, 0 Refills, Maintenance, 2/24/25 2:04:00 PM EST, Tablet, [facility] [address]74 ([facility] 827), Partial fill upon patient request if the prescription is for a schedule II opioid drug., 178, cm, 07/01/24 7:28:00 EST, Height, 88, kg, 06/18/24 22:32:00 EST, Dry Weight Start Date: 07/01/24 Status: Ordered Quantity: 90.0 Unit: tablet Repeat number: 1 Bedside Table Bedside Table, See Instructions, # 1 kit, Refills 0, Tot. Refills 0, Maintenance, Dx: Tetraplegia, 08/01/24 2:29:00 PM EDT, Supply Start Date: 08/01/24 Status: Ordered Quantity: 1.0 Unit: kit Repeat number: 1 bisacodyl 10 mg rectal suppository UNWRAP AND INSERT 1 SUPPOSITORY RECTALLY DAILY AFTER DINNER Start Date: 03/26/24 Status: Ordered Repeat number: 1 CBC w/ Diff, CMP, ESR and CRP CBC w/ Diff, CMP, ESR and CRP, See Instructions, # 1 each, Refills 0, Tot. Refills 0, Maintenance, Please obtain weekly while on antibiotics on Monday and fax results to [facility] ID [phone] and PCP, 04/08/24 2:27:00 PM EST, Supply [...] 1000.0 Unit: tablet Repeat number: 1 Home Health Agency: Please resume medication management Home Health Agency: Please resume medication management, See Instructions, # 1 kit, Refills 0, Tot.Refills 0, Maintenance, Dx: Tetraplegia, 09/05/24 9:34:00 AM EDT, Supply Start Date: 09/05/24 Status: Ordered Quantity: 1.0 Unit: kit Repeat number: 1 Home health aid Home health aid, See Instructions, # 1 each, Refills 0, Tot. Refills 0, Maintenance, 24/7 home health aid and an overlap of [...] Unit: kit Repeat number: 1 nystatin topical 396508 u/gm powder APPLY TOPICALLY TO THE AFFECTED AREA TWICE A DAY Start Date: 03/26/24 Status: Ordered Repeat number: 1 pantoprazole 40 mg oral delayed release tablet 1 tablet = 40 mg, By Mouth, 2 times a day, # 120 tablet, 0 Refills, Maintenance, 06/05/24 9:51:00 AMEST, CR Tablet Start Date: 06/05/24 Status: Ordered Quantity: 120.0 Unit: tablet Repeat number: 1 Please provide 24/7 BRADDER care and weekly VNA visits for medication management. Please provide 24/7 BRADDER care and weekly VNA visits for medication [...] Refills, Maintenance, 07/01/24 2:03:00 PM EST, Tablet, [facility] 53769 ([facility]dresses [id number]), Partial fill upon patient request if [...] Confirmed Active Constipation Confirmed Active CAD in [place] artery Confirmed Active Presence of intrathecal baclofen [...] Team Personnel Name: Danny Whittaker RN Position: [facility] ED RN W/OE and Tasks Member Role: Primary Care Nurse Name: Drea Rodriguez RN Position: [facility] RN Member Role: Primary Care Nurse Name: Aba Linares DO Position: Reference Physician Member Role: PCP Address: [address] [place] [address] [place] [address]- Telecom: Name: Renata Cantu RN Position: [facility] RN Supv Member Role: Primary Care Nurse Name: Magaly Allan RN Position: [facility] SN RN Member Role: Primary Care Nurse Name: Tesha Kirkpatrick RN Position: [facility] RN Member Role: Primary Care Nurse Name: Karoline Rader RN Position: [facility] RN Member Role: Primary Care Nurse Name: Clay Dunham RN Position: [facility] RN Member Role: Primary Care Nurse Name: Elsi Paulino RN Position: [facility] RN Member Role: Primary Care Nurse Name: Adriel Mahmood RN Position: [facility] RN Member Role: Primary Care Nurse Name: Vera Patricia RN Position: [facility] RN Member Role: Primary Care Nurse Name: Troy Ni RN Position: [facility] RN Member Role: Primary Care Nurse Name: [place] RN Position: [facility] RN Member Role: Primary Care Nurse Name: Ramya Bella NP Position: [facility] Associate Professional Member Role: Lifetime Consulting Provider Address: [address] [facility] [place] [address]- Telecom: Name: Gaby Byrd RN Position: [facility] ED RN W/OE and Tasks Member Role: Primary Care Nurse Name: Brittnee Inman RN Position: [facility] RN Member Role: Primary Care Nurse Name: Hung Tamez DO Position: [facility] Renal MD Member Role: Lifetime Consulting Physician Address: [address] [facility] [place] [place] [address]- Telecom: Name: Cecilia Thompson RN Position: [facility] RN Member Role: Primary Care Nurse Name: Brittany Loredo RN Position: S RN Member Role: Primary Care Nurse Name: Cate Pantoja Position: [facility] RN Member Role: Primary Care Nurse Name: Genevieve Orozco RN Position: [facility] RN Member Role: Primary Care Nurse Name: Trudy Prakash RN Position: [facility] RN Member Role: Primary Care Nurse Name: Nicole Upton RN Position: [facility] RN Member Role: Primary Care Nurse Name: Lance Vegas RN Position: [facility] OB RN Member Role: Primary Care Nurse Name: Zi Soler RN Position: [facility] RN Member Role: Primary Care Nurse Name: Kenya Corrigan RN Position: [facility] RN Member Role: Primary Care Nurse Name: Eriberto Ruffin RN Position: [facility] RN Member Role: Primary Care Nurse Name: Madai Joy RN Position: [facility] RN Member Role: Primary Care Nurse Name: Urban Perrin LPN Position: [facility] RN Member Role: Primary Care Nurse Name: Sonja Cage RN Position: [facility] RN Member Role: Primary Care Nurse Name: Alec Chahal RN Position: [facility] RN Member Role: Primary Care Nurse Name: Dawson Zavala RN Position: [facility] RN Member Role: Primary Care Nurse Name: Анна Brock RN Position: [facility] RN Suplaurie Member Role: Primary Care Nurse Care Team Related Persons Name: CIRO TORREZ Name: LOC BAKER Insurance Providers Guarantor name: ADRIAN TORREZ [facility] Plan Information #: 1 Payer: WORK COMP NON EM Payer Identifier: NA Member Number: [id number] Group Number: NA Subscriber Identifier: [id number] Relationship to Subscriber: self Coverage Type: Worker's Compensation Coverage Verification Date: Telecom: NA Address:
[2024-10-24 11:36] LABS: CDiff Gene PCR NEGATIVE (Negative)
== END 2024-10-23 18:15 | disposition home or self-care (01) ==
LOC: HO.MANLNP 18:14
PROVIDERS: Visit Provider Physician Assistant
DX: R19.7 Diarrhea, unspecified (principal)
CPT/HCPCS: 87493

== ENCOUNTER 2024-11-27 13:22 | Outpatient (AMB) | payer OTHER, SELFPAY ==
--- OUTSIDE RECORDS SUMMARY | 2024-11-27 13:56 | XMS_ITS | Encounter Summary ---
Author Organization [facility] Address [address] [place], [place] [id number] Care Team Providers Care Java Software Name Role Phone Pcp, No Primary Care Provider Unavailabl e Encounter Details Date Type Department Care Team (Late st Contact Info) Description 07/22/2021 Scanned Document [facility] [address] [place] [address] Dorie Callahan APRN [facility] [place] [address] Social History Tobacco Use Types Packs/Day Years Used Date Smoking Tobacco: Never Assessed Smokeless Tobacco: Never Alcohol Use Standard Drinks/Week Comments Not Currently 0 (1 standard drink = 0.6 oz pur e alcohol) Sex and Gender Information Value Date Recorded Sex Assigned at Not on file Legal Sex Male 6:08 PM EST Gender Identity Not on file Sexual Orientation Not on file documented as of this encounter Plan of Treatment Not on file documented as of this encounter Visit Diagnoses Not on filedocumented in this encounter Care Teams Java Software Relationship Specialty Start Date End Date Pcp, No PCP - General General Medicine 04/10/21 documented as of this encounter
--- OUTSIDE RECORDS SUMMARY | 2024-11-27 13:56 | XMS_ITS | Encounter Summary ---
Author Organization [facility] Address [address] [place] [address] Care Team Providers Care Applied Behavior Science Specialist Name Role Phone Aba Linares DO Primary Care Provider [phone] Encounter Details Date Type Department Care Team (Late st Contact Info) Description 11/07/2024 Lab Requisition [facility] - Main Lab [address] [facility] [place] [address] Curtis Rodrigues MD [address] [facility] [address] [place] [phone] Urinary tract infection, site not specified Social History Tobacco Use Types Packs/Day Years [...] Procedure Name Priority Date/Time Associated Diagnosis Comments CULTURE URINE Routine 11/07/2024 3:42 PM EDT Urinary tract infection, site not specified documented in this encounter Results * (ABNORMAL) Culture urine (11/07/2024 3:42 PM EDT) Culture, Urine <1,000 CFU/mL Era albicans/du bliniensis( A) 11/10/2024 12:42 PM EDT [facility] Comment: The organism value for this result has been updated. These results have been appended to the previously preliminary verified report. Edited result: Previously reported as Yeast on 11/09/2024 at 0957 EDT. 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
--- OUTSIDE RECORDS SUMMARY | 2024-11-27 13:56 | XMS_ITS | Encounter Summary ---
Author Organization [facility] Address [address] [place] [address] Phone Care Team Providers Care Truss Builder Name Role Phone Milagros Aba Gee DO Unavailable Man Ambriz MD Unavailable [phone] Aba Linares DO Primary Care Provider [phone] Encounter Details Date Type Department Care Team (Late st Contact Info) Description 12/22/2020 Procedure Pass [facility] [address] [place] [address] Social History Tobacco Use Types Packs/Day Years Used Date Smoking Tobacco: Former Cigarettes 1 41 0 10/01/1978 - 10/02/2019 Smokeless Tobacco: Never Alcohol Use Standard Drinks/Week Comments Not Currently 12 (1 standard drink = 0.6 oz pu re alcohol) Sex and Gender Information Value Date Recorded Sex Assigned at Male 12/03/2022 12:49 PM EDT Legal Sex Male 9:59 PM EDT Gender Identity Male 12/03/2022 12:49 PM EDT Sexual Orientation Not on file documented as of this encounter Plan of Treatment Upcoming Encounters Date Type Department Care Team (Late st Contact Info) Description 11/28/2024 2:00 AM EDT Appointment [facility] [address] [place] [phone] Janet Byrd RN [address] [place] [address], [place] [id number] 11/29/2024 1:00 AM EDT [facility] [address] [place] [address] Janet yBrd RN [address] [place] [address] [email or web address] 11/30/2024 12:30 AM EDT [facility] [address] [place] [address] Janet Byrd RN [address] [place] [address] [email or web address] 12/01/2024 Home [facility] Visit [facility] [address] [place] [phone] Janet Byrd RN [address] [place] [address] [email or web address] 12/02/2024 2:30 AM EDT [facility] [address] [place] [phone] Janet Byrd RN [address] [place] [address] [email or web address] 12/03/2024 12:30 AM EDT [facility] [address] [place] [address] Janet Byrd RN [address] [place] [address] [email or web address] 12/04/2024 2:30 AM EDT [facility] [address] [place] [address] Janet Byrd RN [address] [place] [address] [email or web address] 12/05/2024 1:00 AM EDT [facility] [address] [place] [address] Janet Byrd RN [address] [place] [address] [email or web address] 12/06/2024 1:30 AM EDT [facility] [address] [place] [address] Janet Byrd RN [address] [place] [address] [email or web address] 12/07/2024 Home [facility] [address] [place] [address] Janet Byrd RN [address] [place] [address] [email or web address] 12/08/2024 12:30 AM EDT [facility] [address] [place] [address] Janet Byrd RN [address] [place] [address] [email or web address] 12/09/2024 1:00 AM EDT [facility] [address] [place] [address] Janet Byrd RN [address] [place] [address] [email or web address] 12/10/2024 1:00 AM EDT [facility] [address] [place] [address] Janet Byrd RN [address] [place] [address] [email or web address] 12/11/2024 12:30 AM EDT [facility] [address] [place] [address] Janet Byrd RN [address] [place] [address] [email or web address] 12/12/2024 1:00 AM EDT [facility] [address] [place] [phone] Janet Byrd RN [address] [place] [address] [email or web address] 12/13/2024 12:30 AM EDT [facility] [address] [place] [phone] Janet Byrd RN [address] [place] [address] [email or web address] 12/14/2024 12:30 AM EDT [facility] [address] [place] [phone] Janet Byrd RN [address] [place] [address] [email or web address] 12/15/2024 Home [facility] Visit [facility] [address] [place] [phone] Janet Byrd RN [address] [place] [address] [email or web address] 12/16/2024 1:00 AM EDT [facility] [address] [place] [phone] Janet Byrd RN [address] [place] [address] [email or web address] 12/17/2024 12:30 AM EDT [facility] [address] [place] [phone] Janet Byrd RN [address] [place] [address] [email or web address] 12/18/2024 1:30 AM EDT [facility] [address] [place] [address] Janet Byrd RN [address] [place] [address] [email or web address] 12/19/2024 1:00 AM EDT [facility] [address] [place] [address] Janet Byrd RN [address] [place] [address] [email or web address] 12/20/2024 1:00 AM EDT [facility] [address] [place] [address] Janet Byrd RN [address] [place] [address] [email or web address] 12/21/2024 Home [facility] Visit [facility] [address] [place] [address] Janet Byrd RN [address] [place] [address] [email or web address] 12/22/2024 Home [facility] Visit [facility] [address] [place] [address] Janet Byrd RN [address] [place] [address] [email or web address] 12/23/2024 1:00 AM EDT Home [facility] Visit [facility] [address] [place] [address] Janet Byrd RN [address] [place] [address] [place] [address] [email or web address] 12/24/2024 [facility] Visit [facility] [address] [place] [address] Janet Byrd RN [address] [place] [address] [email or web address] 12/25/2024 Home Care Visit [facility] [address] [place] [phone] Janet Byrd RN [address] [place] [address] [email or web address] 12/26/2024 [facility] Visit [facility] [address] [place] [phone] Janet Byrd RN [address] [place] [address] [email or web address] 12/27/2024 [facility] Visit [facility] [address] [place] [phone] Janet Byrd RN [address] [place] [address] [email or web address] 12/28/2024 [facility] [address] [place] [phone] Janet Byrd RN [address] [place] [address] [email or web address] 12/29/2024 Home Care Visit [facility] [address] [place] [phone] Janet Byrd RN [address] [place] [address] [email or web address] documented as of this encounter Visit Diagnoses Not on filedocumented in this encounter Care Teams Truss Builder Relationship Specialty Start Date End Date Aba Linares DO PCP - General 05/11/17 AidenAba olivia DO Historical LMR Provider 02/23/17 Man Ambriz MD [address] [place] [address] Historical LMR Provider 02/23/17 documented as of this encounter Additional Source Comments The information contained in this document represents components of the legal health record. It is not the complete legal health record.[facility]
--- OUTSIDE RECORDS SUMMARY | 2024-11-27 13:57 | XMS_ITS | Data Portability ---
Author Organization [facility], Telehealth Patient Home Address [address] [place] [address] Assessment No assessment recorded. Plan of Treatment Reminders Order Date Submit Date Provider Last Modified By Organization Details Last Modified Time Details Appointments None recorded. 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 Surgeries None recorded. Imaging CT, head + brain, w/o contrast 2023 [facility]iology & Imaging, [address], [place], [address], 4 08:21:00 CT, kidney, w/o contrast - needs fu with for his urology after kidney surgery for stone removal 2023 [email or web address], [address], [place], [address], 4 08:13:24 Medication Orders diazepam 2 mg tablet 2023 [email or web address] [employer] [address] ([employer] 827), [address] [place], [place], [id number], 5 15:18:52 tramadol 50 mg tablet 2023 024 [email or web address] [employer] [address] ([employer] 8[facility]), [address], [place], [place], [id number], 5 15:17:31 Patient TargetsNo targets recorded. Patient InstructionsNo instructions recorded. Reason for Referral Personal Counselor Referral for At rial fibrillation needs discussion of possible watchman, given issues with afib and blood thinner Referring Physician: Ashley Price, Internal Medicine, Encounter Date: 04/23/2024 Parts Identification Technician Referral for Esophageal dysmotility ? 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 [facility] (Medical Records) [address] [place], [address], 02/16/2024 13:46:16 02/09/20 24 02/09/2024 XR, pyelo gram No observ ation record ed. [facility] Diagnosit Imaging Dept [address] [facility], [place], [address], 02/16/2024 13:45:37 03/05/20 24 03/05/2024 CT, head + brain , w/o contr ast No observ ation record ed. [email or web address] [facility] [address] [place], [address], 03/05/2024 14:13:58 04/10/20 24 01/11/2024 fluor oscop ic guide d lumba r facet stero id injec tion (PROC ) No observ ation record ed. [facility] (Medical Records) [address] [place], [address], 04/10/2024 12:12:09 04/10/20 24 01/22/2024 guillermo gonsales ow study No observ ation record ed. [facility] (Medical Records) [address] [place], [address], 04/10/2024 12:12:32 10/25/19 25 10/17/2024 CT, abdom en + pelvi s, w/o contr ast No observ ation record ed. [facility] [address] [place], [address], 10/24/2024 15:06:49 Result Notes None recorded. Problems Name Problem SNOMED Code Status Onset Date Resolution Date Notes Provider Name and Address Organization Details Recorded Time Tobacco dependen ce syndrome 76719822 Completed 201704/02/2019 Aba Linares, [address] [place], [address], [facility] 9 15:59:49 Harmful pattern of use of alcohol 58253700 Completed 201712/20/2017 Aba Linares, DO [address] [facility], [place], [address], [facility] 8 11:19:44 Polyp of colon 21834381 Active 2017 Not Available [facility] 3 10:33:08 History of hernia repair 32213622582 109 Active 2017 x2 Not Available [facility] 3 10:33:08 Atrial fibrilla tion 31260066 Active 2017 Not Available [facility] 3 10:33:08 Renal failure syndrome 49233662 Active 2017 Not Available [facility] 3 10:33:08 Osteoart hritis 719022235 Active 2017 Not Available [facility] 3 10:33:08 Glaucoma 32512803 Active 2017 Not Available [facility] 3 10:33:07 Gastroes ophageal reflux disease 958625227 Active 2017 Not Available [facility] 3 10:33:07 Hemorrho ids 07514000 Active 2017 Not Available [facility] 3 10:33:08 Coronary arterios clerosis 02339992 Active 2017 Not Available [facility] 3 10:33:08 Hyperten sive disorder 37877686 Active 2017 Not Available [facility] 3 10:33:07 Obesity 964653041 Active 2017 Not Available [facility] 3 10:33:08 Hyperlip idemia 34358106 Active 2017 Not Available [facility] 3 10:33:08 Abdomina l aortic aneurysm 870601220 Active 03/27 is 3.1cm Not Available [facility] 3 10:33:07 Neurogen ic urinary bladder 239481920 Active 2021 Not Available [facility] 3 10:33:08 Cholecys titis 02891599 Active 2021 Not Available [facility] 3 10:33:08 COVID-19 623201834 Active 2021 Not Available [facility] 3 10:33:08 Neuropat hy 182464130 Active 2021 Not Available [facility] 3 10:33:08 Hypotens ashley episode 50332382 Active 2021 Not Available [facility] 3 10:33:08 Constipa tion 08148665 Active 2021 Not Available [facility] 3 10:33:07 Candidia sis of skin 16217989 Active 2021 Not Available [facility] 3 10:33:08 Acute urinary tract infectio n 572185270 Active 2021 Not Available [facility] 3 10:33:08 Ingrowin g nail of toe of right foot 74630853135 664185 Active 2021 Not Available [facility] 3 10:33:07 Psoriasi s 1139859 Active 2021 Not Available [facility] 3 10:33:08 Cervical spinal cord injury 361082554 Active 2021 Not Available [facility] 3 10:33:08 Parapleg ia 51990263 Active 2022 Not Available [facility] 3 10:33:08 Anxiety 30274686 Active 2022 Not Available [facility] 3 10:33:08 Internal hemorrho ids 94258342 Active 2022 Not Available [facility] 3 10:33:08 Syncope 962340958 Active 2022 Not Available [facility] 3 10:33:07 Pain of left shoulder joint 42111123963 137857 Active 2022 Not Available [facility] 3 10:33:07 Pressure injury of buttock stage I 14385137902 766416 Active 2022 Not Available [facility] 3 10:33:07 Allergic conjunct ivitis 066861485 Active 2022 Not Available [facility] 3 10:33:08 Sepsis caused by Pseudomo og 467930756 Active 2022 Not Available [facility] 3 10:33:08 Urethral strictur e 87314213 Active 2022 Not Available [facility] 3 10:33:08 Skin lesion 93226300 Active 2023 JASMYNE PIZANO [address] [place], [address], [facility] 4 12:27:06 Cataract 982396040 Active 2023 Aba Linares DO [address] [place] [address], [address], [facility] 4 14:23:35 Allergic conjunct ivitis 495821880 Active 2023 JASMYNE PIZANO [address] [place], [address], [facility] 4 13:52:55 Recurren t urinary tract infectio n 672715381 Active 2023 Aba Linares DO [address] [place] [address], [address], [facility] 4 22:30:00 Hyponatr emia 60329126 Active 2023 JASMYNE PIZANO [address] [place], [address], [facility] 4 08:45:39 Iron deficien cy anemia 87061615 Active 2023 JASMYNE PIZANO [address] [place], [address], [facility] 4 08:45:49 Pressure injury of buttock stage IV 83551503646 409737 Active 2023 JASMYNE PIZANO [address] [place], [address], [facility] 4 15:32:31 Clostrid ium difficil e colitis 271923609 Active 2023 JASMYNE PIZANO [address] [place] [address], [address], [facility] 4 15:37:24 Sore throat 028001024 Active 2023 JASMYNE PIZANO [address] [place], [address], [facility] 4 15:38:00 Infectio n by Era albicans 37891119 Active 2023 JASMYNE PIZANO [address] [place] [address], [address], [facility] 4 12:30:56 Depressi ve disorder 40172052 Active 2023 Aba Linares DO [address] [place] [address], [address], [facility] 4 14:06:56 Memory impairme nt 182631234 Active 2023 JASMYNE PIZANO [address] [place] [address], [address], [facility] 4 15:41:42 Bilatera l shoulder joint pain 70507754526 198609 Active 2023 JASMYNE PIZANO [address] [place] [address], [address], [facility] 4 15:48:53 Kidney stone 89502715 Active 2023 JASMYNE PIZANO [address] [place] [address], [address], [facility] 5 15:27:40 Osteomye litis of coccyx 253641422 Active 2023 Aba Linares DO [address] [place] [address], [address], [facility] 4 15:23:34 Anemia 933786955 Active 2024 Aba Linares DO [address] [place] [address], [address], [facility] 5 09:04:44 Esophage al dysmotil ity 478875098 Active 2024 JASMYNE PIZANO [address] [place], [address], [facility] 5 15:57:39 Acute diarrhea 956664221 Active 2024 Aba Linares DO [address] [place] [address], [address], [facility] 5 21:30:44 Diarrhea 42001850 Active 2024 JASMYNE PIZANO [address] [place] [address], [address], [facility] 5 12:34:16 Sepsis 84806346 Active 2024 JASMYNE PIZANO [address] [place] [address], [address], [facility] 5 15:26:36 Pressure injury of right buttock stage III Active 2024 JASMYNE PIZANO [address] [place] [address], [address], [facility] 5 15:27:12 Problem Notes None recorded. Procedures Surgical History Date Name Laterality Status Provider Name and Address Organization Details Recorded Time 022 WOUND CARE completed JASMYNE PIZANO [address] [place] [address], [address], [facility] 08/30/2021 14:12:41 022 Joint Injection completed JASMYNE PIZANO [address] [place] [address], [address], [facility] 07/23/2021 14:48:14 020 Corticosteroid Injection completed Aba Linares DO [address] [place] [address], [address], [facility] 01/03/2020 15:39:03 018 Corticosteroid Injection completed Aba Linares DO [address] [place], [address], [facility] 12/04/2017 16:42:28 Imaging Results None recorded. Procedure Notes None recorded. Medical Equipment None Reported. Allergies Allergen ID Allergen Name Allergen Category Reaction Reaction Severity Criticality Documentation Date Start Date Code Code System Note Provider Name and Address Organization Details Recorded Time 8611 tramadol medicatio n hallucina tions Not available Not available 04/23/2024 80038 RxNorm JASMYNE PIZANO [address] [place], [address], [facility] 15:09:52 Medications Name Sig Start [...] BY MOUTH EVERY DAY FOR 21 DAYS 11/06 completed Not Available Not Available Not Available bupropion HCl SR 150 mg tablet,12 hr sustained- release TAKE 1 TABLET BY MOUTH TWICE DAILY 11/06 completed Not Available Not Available Not Available azelastine 0.05 % eye drops Instill 1 drop twice a day by ophthalm ic route for 30 days. active Not Available Not Available No t Available acetaminop hen 325 mg tablet TAKE 2 TABLETS (650MG) BY MOUTH EVERY 4 HOURS NEEDED active Not Available Not Available [...] fosfomycin tromethami ne 3 gram oral packet 09/27 completed Not Available Not Available Not Available miconazole nitrate 2 % topical cream APPLY TO PERIWOUN D TWICE DAILY active Not Available Not Available No t Available fluconazol e 150 mg tablet TAKE 1 TABLET BY MOUTH EVERY DAY FOR 5 DAYS 11/06 completed Not Available Not Available Not Available amiodarone 200 mg tablet TAKE 1/2 [...] TABLET BY MOUTH TWICE A DAY NEEDED 2024 active Not Available Not Available Not Avai lable Milk of Magnesia 400 mg/5 mL oral suspension TAKE 30 ML BY MOUTH DAILY NEEDED active Not Available Not Available No t Available clobetasol 0.05 % topical cream APPLY A THIN LAYER OF CREAM TOPICALL Y TO THE AFFECTED AREA(S) TWICE A DAY 11/06 completed Not Available Not Available Not Available ciprofloxa shahid 250 mg tablet TAKE 1 TABLET BY MOUTH TWICE A DAY 07/27 completed Not Available Not Available Not Available ciprofloxa shahid 500 mg tablet TAKE 1 TABLET BY MOUTH EVERY 12 HOURS FOR 7 DAYS 11/06 completed Not Available Not Available Not Available sulfametho xazole 800 mg-trimeth oprim 160 mg tablet TAKE 1 TABLET BY MOUTH TWO TIMES A DAY FOR 14 DAYS 11/06 completed Not Available Not Available Not Available tramadol 50 mg tablet TAKE 1 TABLET BY MOUTH THREE TIMES DAILY NEEDED 11/06 completed Not Available Not Available Not Available vancomycin 125 mg capsule TAKE 1 CAPSULE BY MOUTH TWO TIMES A DAY FOR 36 DAYS. MUST REFILL TO COMPLETE COURSE. 11/06 completed Not Available Not Available Not Available cefadroxil 500 mg capsule 02/28 completed Not Available Not Available Not Available hydrocorti sone 2.5 % topical cream with perineal applicator apply rectally bid for 10 days active Not Available Not Available No t Available methenamin e hippurate 1 gram tablet TAKE ONE TABLET BY MOUTH TWICE A DAY WITH VITAMIN C active Not Available Not Available No t Available Pill Splitter mis FOR USE WITH BACLOFEN 10 MG 07/12 completed Not Available Not Available Not Available Doni Bisacodyl 10 mg/30 mL enema USE 1 ENEMA RECTALLY DAILY 07/12 completed Not Available Not Available Not Available diazepam 2 mg tablet TAKE 1 TABLET BY MOUTH TWICE DAILY FOR 14 DAYS 11/06 completed Not Available Not Available Not Available baclofen 10 mg tablet TAKE ONE AND ONE HALF TABLETS BY MOUTH THREE TIMES A DAY 11/06 completed Not Available Not Available Not Available bisacodyl 10 mg rectal suppositor y UNWRAP AND INSERT 1 SUPPOSIT ORY RECTALLY DAILY AFTER DINNER 11/06 completed Not Available Not Available Not Available cephalexin 500 mg capsule 09/30 completed Not Available Not Available Not Available pantoprazo le 40 mg tablet,del ayed release TAKE 1 TABLET BY MOUTH TWICE DAILY 2024 active Not Available Not Available Not Avai lable olopatadin e 0.1 % eye drops [...] TAKE 2 CAPSULES BY MOUTH EVERY DAY 07/23 completed Not Available Not Available Not Available Culturelle 10 billion cell capsule TAKE 1 CAPSULE BY MOUTH EVERY DAY 11/06 completed Not Available Not Available Not Available lisinopril 5 mg tablet TAKE 1 TABLET BY MOUTH EVERY DAY 12/12 completed Not Available Not Available Not Available midodrine 2.5 mg tablet TAKE 1 TABLET BY MOUTH THREE TIMES A DAY active Not Available Not Available No t Available nystatin 100,000 unit/gram topical powder APPLY TOPICALL Y TO THE AFFECTED AREA TWICE A DAY 2024 active Not Available Not Available Not Avai lable cefuroxime axetil 500 mg tablet 08/30 completed Not Available Not Available Not Available levofloxac in 500 mg tablet Take 1 tablet every 24 hours by oral route for 10 days. 09/27 completed Not Available Not Available Not Available levofloxac in 750 mg tablet TAKE 1 TABLET BY MOUTH EVERY DAY FOR 21 DAYS 09/27 completed Not Available Not Available Not Available methylpred nisolone 4 mg tablets in [...] BY MOUTH TWICE DAILY FOR 5 DAYS 09/27 completed Not Available Not Available Not Available loratadine 10 mg tablet Take 1 [...] MEALS AND DIRECTED ( DONT SWALLOW ) 11/06 completed Not Available Not Available Not Available sodium chloride 1,000 mg soluble tablet TAKE 1 TABLET BY MOUTH THREE TIMES DAILY DIRECTED . active Not Available Not Available No t Available Dakin's Solution 0.125 % APPLY A DAKINS SOAKED GAUZE TO WOUND FOR 5 MINUTES EVERY OTHER DAY 11/06 completed Not Available Not Available Not Available ferrous sulfate 324 mg (65 mg [...] TAKE ONE TABLET BY MOUTH AT BEDTIME 2024 active Not Available Not Available Not Avai lable Metamucil 3.4 gram/5.4 gram oral powder Take 2 tbsp every day by oral route as directed for 30 days. 2023 active Not Available Not Available Not Avai lable Flucelvax Quad (PF) 60 mcg (15 mcg x 4)/0.5 mL IM syringe 12/04 completed Not Available Not Available Not Available Shingrix (PF) 50 mcg/0.5 mL intramuscu lar suspension , kit 04/02 completed Not Available Not Available Not Available baclofen 5 mg tablet TAKE 1 TABLET BY MOUTH THREE TIMES DAILY NEEDED FOR SPASM active Not Available Not Available No t [...] Available Vitals Date Recorded Body height Systolic And Diastolic Provider Name and Address Organization Details Last Updated DateTime 07/15/2024 173.36 cm 110/68 mm[Hg] [facility] 07/15/2024 15:09:42 Date Recorded Body height Oxygen saturation Oxygen saturation in Arterial blood by Pulse oximetry Heart rate Systolic And Diastolic Provider Name and Address Organization Details Last Updated DateTime 173.36 cm 98 % 98 % 56 /min 108/70 mm[Hg] Nikki Devries [facility] 5 15:00:12 Date Recorded Body height Heart rate Oxygen saturation Oxygen saturation in Arterial blood by Pulse oximetry Systolic And Diastolic Provider Name and Address Organization Details Last Updated DateTime 4 173.36 cm 51 /min 95 % 95 % 128/78 mm[Hg] Keren Lucio [facility] 4 15:09:19 Date Recorded Body height Oxygen saturation Oxygen saturation in Arterial blood by Pulse oximetry Heart rate Systolic And Diastolic Provider Name and Address Organization Details Last Updated DateTime 4 173.36 cm 95 % 95 % 62 /min 100/60 mm[Hg] Cris Otto [facility] 4 14:57:17 Date Recorded Body height Body mass index (BMI) Body weight Heart rate Oxygen saturation Oxygen saturation in Arterial blood by Pulse oximetry Systolic And Diastolic Provider Name and Address Organization Details Last Updated DateTime 4 173.36 cm 27.2 kg/m2 14623.6 3 g 66 /min 95 % 95 % 92/58 mm[Hg] Mazin Marin [facility] 4 15:04:39 Social History Question Answer Notes LastModified by Organizat ion Details LastModified Time Tobacco Smoking Status Former Smoker Aba GeeEmma Milagros, DO [address] [place] [address], [place], [address] 04/02/2019 15:39:17 What Was The Date Of Your Most Recent Tobacco Screening? 11/06/2024 [email or web address] Information not available 11/06/2024 Sex: Unknown Functional Status Question Answer Note LastModified by Organization D etails LastModified Time Do you or have you ever used any other forms of tobacco or nicotine? No [email or web address] Information not available 08/30/2021 Mental Status None recorded. Family History Nothing Reported. Medical History No medical history recorded. Immunizations Vaccine Type Date Status Note Provider Nam e and Address Organization Details Recorded Time Influenza, split virus, quadrivalent, preservative 1 completed Not Available [facility] 03/11/2021 16:08:46 Influenza, split virus, quadrivalent, preservative 2 completed Consuelo echeverria [facility] Internal [facility] 03/14/2022 07:46:37 COVID-19, mRNA, LNP-S, PF, 100 mcg/0.5mL dose or 50 mcg/0.25mL dose 2 completed Consuelo echeverria [facility] Internal [facility] 03/14/2022 07:46:47 zoster, unspecified formulation 2 completed Aba Linares DO [address] [place] [address], [address] Internal [facility] 07/12/2022 13:59:55 zoster, unspecified formulation 8 completed Fang echeverria [facility] Internal [facility] 07/12/2022 14:03:45 Influenza, split virus, quadrivalent, preservative 8 completed Not Available [facility] 03/11/2021 16:08:46 Influenza, split virus, quadrivalent, preservative 9 completed Not Available [facility] 03/11/2021 16:08:46 zoster live 9 completed Not Available [facility] 03/11/2021 16:08:46 Influenza, split virus, quadrivalent, preservative 0 completed Not Available [facility] 03/11/2021 16:08:46 COVID-19, mRNA, LNP-S, PF, 100 mcg/0.5mL dose or 50 mcg/0.25mL dose 1 completed Not Available [facility] 03/11/2021 16:08:46 COVID-19, mRNA, LNP-S, PF, 100 mcg/0.5mL dose or 50 mcg/0.25mL dose 1 completed Not Available [facility] 03/11/2021 16:08:46 Past Encounters Encounter ID Performer Location Encounter Start Date Encounter Closed Date Diagnosis/Indication Diagnosis SNOMED-CT Code Diagnosis ICD10 Code Diagnosis Note [id number] Aba Linares DO [facility] [address] [facility] [address] 12/04/2017 16:12:34 12/07/2017 10:13:24 Osteoarthritis 254147126 M19.90 cortisone inject well tolerated if not helpful will need mri try advil and tylenol [id number] Aba Bateman Milagros [facility] [address] [facility] [address] [address] 12/20/2017 10:17:49 12/20/2017 11:34:27 Hypertensive disorder 02888168 I10 home bp and office are excellent Osteoarthritis 673955924 M19.90 cortisone inject did great and is feeling much better try advil and tylenol Atrial fibrillation 4943 6004 I48.91 quiet and no palpitatio ns Coronary arteriosclerosis 91387300 I25.10 no cp is asymptomat ic reviewed in detail the need to tonny aware of cp syndromes and the diff variants of cp Hyperlipidemia 14972295 E78.5 highly recco he start a statin med long discussion re this [id number] Aba Bateman Milagros [facility] [address] [facility] [address] [facility] [place] [address] 06/06/2018 15:39:31 06/08/2018 08:53:29 Hypertensive disorder 24978577 I10 home bp and office are fair Atrial fibrillation 4943 6004 I48.91 quiet and no palpitatio ns Hyperlipidemia 12297849 E78.5 highly recco he start a statin med long discussion re this Tobacco de pendence syndrome 48312635 F17.200 still smoking Abdominal aortic aneurysm screening 186366778 Z13.6 Hepatitis C screening 41 0851925 Z11.59 Coronary arteriosclerosis 69176759 I25.10 no cp is asymptomat ic reviewed in detail the need to tonny aware of cp syndromes and the diff variants of cp Obstructiv e sleep apnea syndrome 91062325 G47.33 [id number] Aba GeeEmma Linares [facility] [address] [facility] [address] 04/02/2019 15:33:04 04/02/2019 16:05:16 Adult health examination 856986970 Z00.00 doing great and is careful with eating encouraged to walk etc Atrial fibrillation 4943 6004 I48.91 quiet and no palpitatio ns Gastroesop hageal reflux disease 486787222 K21.9 no issues since quitting diet soda, will follow as needed Hyperlipidemia 60890919 E78.5 highly recco he start a statin med long discussion re this Coronary arteriosclerosis 54892644 I25.10 no cp is asymptomat ic reviewed in detail the need to tonny aware of cp syndromes and the diff variants of cp [id number] Aba Linares [facility] Internal Medicine [address] [facility], [place] [address] 10/01/2019 15:49:01 10/01/2019 16:17:23 Atrial fibrillation 37761810 I48.91 quiet and no palpitatio ns Coronary arteriosclerosis 30847191 I25.10 no cp is asymptomat ic reviewed in detail the need to tonny aware of cp syndromes and the diff variants of cp Hypertensive disorder 38 751379 I10 home bp and office are fair [id number] Aba Linares [facility] Internal Medicine [address] [facility], [place] [address] 12/13/2019 16:02:42 12/13/2019 17:01:26 Atrial fibrillation 37458323 I48.91 quiet and no palpitatio ns Hypertensive disorder 38 978597 I10 home bp and office are ok but has noticed an ongoing cough so we will stop the lisinopril Cough 30114805 R05 stop lisinopril if cough goes away we will substitute with losartan Left Achil les tendinitis 8088493229 39258 M76.62 will do exercises and stretches and add advil on reg basis and let me know [id number] Aba Linares DO [facility] Internal Medicine [address] [facility],[place] [address] 01/03/2020 15:05:31 01/03/2020 15:48:43 Osteoarthritis 001401132 M19.90 cortisone inject to the left knee did great and hopefully will be feeling much better try advil and tylenol as needed [id number] Aba Linares DO [facility] Internal Medicine [address] [facility] [address] 03/03/2020 15:22:46 03/03/2020 16:05:24 Hypertensive disorder 03178758 I10 home bp and office are ok but has noticed an ongoing cough so we will stop the lisinopril cough is still just a mild and uncommon event will chk bps at home with a new cuff and will report next visit Atrial fibrillation 4943 6004 I48.91 quiet and no palpitatio ns Abdominal aortic aneurysm screening 995373898 Z13.6 [id number] Aba Linares [facility] Internal Medicine [address] [facility], [place] [address] 07/23/2021 14:07:20 07/27/2021 09:06:44 Dysuria 89826058 R30.9 will send out urine Pressure i njury of sacral region of back 340242586 L89.151 will start with silvadene cream Pain of ri ght shoulder joint 7106233896 2236889 M25.511 given cortisone Recurrent urinary tract infection 522604897 N30.81 will start on cranberry tablets Retrolisthesis 715741415 M43.12 C4 to C5, stable Paraplegia 85330269 G82. 22 has fu with neuro [id number] Aba Linares [facility] Internal Medicine [address] [facility] [address] 08/30/2021 13:18:11 08/30/2021 14:20:59 Constipation 76821013 K59.01 will hold XRwill continue Miralax and doculax with the patientmon itor bowel movementma y need XR Acute urin kwame tract infection 276092538 N39.0 N10 will need to continue abx, last day is tomorrowur ine is yellow and clear today Ingrowing nail of toe of right foot 2386900135 4735418 L60.0 dressed in officefu with podiatry [id number] Aba Linares [facility] Internal Medicine [address] [facility], [place] [address] 02/28/2022 13:59:42 02/28/2022 16:01:10 Atrial fibrillation 57503592 I48.91 quiet and no palpitatio ns Hepatitis C screening 41 6752251 Z11.59 Hyperlipidemia 07912541 E78.5 highly recco he start a statin med long discussion re this Hypertensive disorder 38 410165 I10 home bp and office are ok but has noticed an ongoing cough so we will stop the lisinopril cough is still just a mild and uncommon event will chk bps at home with a new cuff and will report next visit Active or passive immunization 320601155 Z23 patient advised he is due for flu, tdap, pneu & shingles Psoriasis 2697868 L40.9 [id number] [facility] [address] [facility],[place] [address] 05/31/2022 15:22:17 06/01/2022 09:24:55 Pre-surgery evaluation 770070284 Z01.818 The patient was seen in the office today for pre-op evaluation . All medical conditions on patient's problem list were addressed and are currently stable, no interventi on needed at this time. Based on history and physical performed, the patient is cleared for surgery. Cervical s usman cord injury 537092215 S14.109D stable Chronic ob structive pulmonary disease 65813471 J41.1 stable Hypertensive disorder 38 583395 I10 stable [id number] [facility]eman [facility] [address] [facility],[place] [address] 07/12/2022 13:51:01 07/12/2022 14:24:01 Chronic obstructive pulmonary disease 92779107 J41.1 no issue with breathingh ad been seen by pulmonary for the dimas and copd using nasal pillows Hypertensive disorder 38 060892 I10 home bp and office are ok but has noticed an ongoing cough so we will stop the lisinopril cough is still just a mild and uncommon event will chk bps at home with a new cuff and will report next visit Atrial fibrillation 4943 6004 I48.91 quiet and no palpitatio ns Hyperlipidemia 06333143 E78.5 highly recco he start a statin med long discussion re this Paraplegia 05819135 G82. 22 has noted his contractio ns of the upper limb Advance care planning 71 0091309 Z71.89 done Coronary arteriosclerosis 71618470 I25.10 no cp is asymptomat ic reviewed in detail the need to tonny aware of cp syndromes and the diff variants of cp Cervical s usman cord injury 716662050 S14.109D his skin remains free of decubiti at the presentno swallow issues [id number] Aba Linares [facility] Internal Medicine [address] [place] [address] 08/23/2022 10:52:48 08/23/2022 12:00:28 Syncope 058737663 R55 [id number] Aba Lianres [facility] Internal Medicine [address] [facility],[place] [address] 12/23/2022 11:33:33 12/23/2022 14:20:43 Anxiety 70726822 F41.1 stable Atrial fibrillation 4943 6004 I48.11 stable Constipation 63694389 K5 9.01 no change Gastroesop hageal reflux disease 985575672 K21.9 stable Hemorrhoids 01937322 K64 .1 stable Hyperlipidemia 63936038 E78.2 stable Hypertensive disorder 38 491435 I10 stable [id number] Aba Linares [facility] Internal Medicine [address] [facility],[place] [address] 01/27/2023 13:54:48 01/27/2023 15:48:08 Abdominal aortic aneurysm 194723802 I71.40 Atrial fibrillation 4943 6004 I48.11 quiet and no palpitatio ns Chronic ob structive pulmonary disease 74770591 J41.1 no issue with breathingh ad been seen by pulmonary for the dimas and copd using nasal pillows Hyperlipidemia 51972935 E78.2 highly recco he start a statin med long discussion re this Hypertensive disorder 38 123089 I10 home bp and office are ok but has noticed an ongoing cough so we will stop the lisinopril cough is still just a mild and uncommon event will chk bps at home with a new cuff and will report next visit Pressure i njury of buttock stage I 4755869221 6576696 L89.309 wound care nurse [id number] Aba Wolfene [facility] Internal Medicine [address] [facility],[place] [address] 03/27/2023 15:15:03 03/27/2023 16:27:30 Sepsis caused by Pseudomonas 160338040 A41.52 resolved Urethral stricture 35448 002 N35.119 ? anatomical issues Suprapubic urinary catheter in situ 694055363 Z96.[address]. ? correct placement [id number] Aba Linares [facility] Internal Medicine [address] [facility],[place] [address] 07/28/2023 13:42:45 07/28/2023 14:42:41 Atrial fibrillation 93379090 I48.11 quiet and no palpitatio ns Hypertensive disorder 38 231933 I10 home bp and office are ok but has noticed an ongoing cough so we will stop the lisinopril cough is still just a mild and uncommon event will chk bps at home with a new cuff and will report next visit Coronary arteriosclerosis 24187526 I25.10 no cp is asymptomat ic reviewed in detail the need to tonny aware of cp syndromes and the diff variants of cp Pressure i njury of buttock stage I 9508399583 7133575 L89.309 wound care nurse treating with silvadene Cataract 108714489 H26.9 [id number] Aba Linares [facility] Internal Medicine [address] [facility],[place] [address] 12/18/2023 15:02:22 12/18/2023 16:09:34 Sepsis caused by Pseudomonas 910936204 A41.52 resolved Acute urin kwame tract infection 919970621 N30.81 will set up with Hyponatremia 09910077 E8 7.1 Iron defic iency anemia 11304874 D50.0 will recheck his blood work Suprapubic urinary catheter in situ 373180762 Z96.0 causing the recurrent UTI plus due to the kidney stones Chronic ob structive pulmonary disease 51966140 J41.1 stable At [facility] ed risk for falls 851522676 Z91.81 stable today in office 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 2164665955 3101728 L89.304 will set up with fax number per his Demian m difficile colitis 645244637 A04.72 will need to be retested after finishing abx Sore throat 450349340 J0 2.8 swab taken [id number] Aba Linares [facility] Internal Medicine [address] [facility], [place] [address] 02/14/2024 14:47:38 02/14/2024 15:59:32 Atrial fibrillation 74212973 I48.11 quiet and no palpitatio ns Memory impairment 642064 006 R41.[address] up with [address] scan Bilateral shoulder joint pain 2974061688 5965401 M25.511 PRN tramadol Kidney stone 67446853 N2 0.[address] up [address] for uro to get it scheduled sooner Anxiety 51699536 F41.1 d/c bupropion [id number] Aba Linares [facility] Internal Medicine [address] [facility],[place] [address] 04/23/2024 14:49:10 04/23/2024 16:26:14 Paraplegia 74026873 G82.22 stable Memory impairment 018182 [address] Atrial fibrillation 4943 6004 I48.11 will have to change his cardiologi st over [facility] since [facility] doesn't seem clear about the watchman procedure Bilateral shoulder joint pain 7223991786 7279449 M25.511 will set up with small script for the muscle pain [id number] Aba Linares [facility] Internal Medicine [address] [facility],[place] [address] 04/29/2024 14:53:46 04/29/2024 15:33:04 Pre-surgery evaluation 787065415 Z01.818 per the 2019 ACC cardiac risk stratifica tion, this patient is deemed a low risk for the cataract surgery under the condition that hIS IV antibiotic is finished treating the coccyx infection caused by a decubitust his should be finished on the of this month . He can not undergo surgery if still receiving ths treatment. [id number] Aba Linares [facility] Internal Medicine [address] [facility],[place] [address] 07/15/2024 14:45:27 07/15/2024 16:07:22 Esophageal dysmotility 828497423 K22.4 will set up with GI consult Hyponatremia 31247552 E8 7.1 will set up with fu lab work [id number] Aba Linares DO [facility] [address] [facility],[place] [address] 11/06/2024 14:32:32 11/06/2024 15:43:34 Sepsis 70032517 A41.9 stable Pressure i njury of right buttock stage III 3860086620 5104 L89.313 seeing wound care every week on Monday Kidney stone 05211057 N2 0.[address] for uro to get it scheduled sooner Health Concerns Section Related Observation LastModified by Organization Detai ls LastModified Time None Recorded Concern Status LastModified by Organization Details LastModified Time None Recorded Advance Directives Directive None Recorded Payers Insurance Date Sequence Insurance Name Policy Number Policy Kahn Covered Member ID Kahn Member ID Guarantor Name 07/08/2022 [employer] Eran Guerrero 11/05/[address] [place] [address] [id number] Eran Guerrero [id number] Eran Guerrero Notes Date Note Type Note Provider Name and Address Organization Details Recorded Time 4 text/html hospital f/u the patient reports that he is doing okaywas in the hospital for 17 days has uro fuwill take over CT to get sooner appt having slurred speech, Mental status changesrecommended fu CT d/c bupropion start tramadol PRN for shoulder pain instructions written JASMYNE PIZANO [address] [place] [address], [place], [address], [facility] 02/14/2024 15:54:59 4 text/html [...] to discuss alt previous appt with cardio ADMINISTRATIVE ASSISTANT recommended watchman, having issues with the doc at [facility] cardio who keeps referring them back to have uro f/u with a watchman which is not something done by uro recommended cardio through [facility] for more information and follow through with the watchman procedure needed DME order for trash bags for his medical waste disposal, given order to be given 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 tramadol caused hallucinations added to listshoulder still causing paincan cont APAP > added valium for msk relaxer since he hasn't had issues JASMYNE PIZANO [address] [place], [address], [facility] Medicine 04/23/2024 16:14:59 4 text/html [...] walk 4 mph Aba Linares DO [address] [place], [address], [facility] Medicine 04/29/2024 15:31:19 5 text/html [...] having hypotension due to thishas fu with chief deputy coroner, having watchman donehas midodrine, doesn't like the side effects the patient reports that the wound is deepeningthe patient reports that he is having issues swallowing, tends to sip water after everything, the patient the patient reports that he is doing okaythe patient denies depression though he seems like he is depressedthe patient reports that JASMYNE PIZANO [address] [place], [address], [facility] Medicine 07/15/2024 16:05:26 5 text/html TCM 7 the patient was admitted to the hospital with for sepsis alertgiven AMS, fever, chills, and general fatigue the patient has a new kidney stone, left side, which will need to be removed the patient is seeing urology tomorrow JASMYNE PIZANO [address] [place] [address], [place], [address], [facility] 11/06/2024 15:33:59
--- OUTSIDE RECORDS SUMMARY | 2024-11-27 13:57 | XMS_ITS ---
[facility] Name [facility] Unknown History of Medication Use Medication Directions Dispensed Refills Start Date End Date Stat nirmatrelvir-ritonavi r (PAXLOVID EMERGENCY USE) therapy pack Take 3 Tablets - 300 mg Nirmatrelvir (2 x 150 mg tablets) with 100 mg Ritonavir (1 x 100 mg tablet) twice daily by mouth for 5 Days. Dispense #20 Nirmatrelvir 150 mg Tablets and #10 Ritonavir 100 mg tablets. 05/25/2021 active acetaminophen (TYLENOL) 325 MG tablet Take 650 mg by mouth every 4 (four) hours as needed for mild pain or fever. 02/01/2021 active gabapentin (NEURONTIN) 300 MG capsule Take 300 mg by mouth 2 (two) times a day. 02/01/2021 active aluminum-magnesium hydroxide-simethicone (aluminum-magnesium hydroxide-simethicone ) suspension Take 30 mL by mouth 4 times daily (every 6 hours) as needed for indigestion or heartburn. active ascorbic acid (ascorbic acid) 250 MG tablet Take 250 mg by mouth daily. active Problems Problem Status Onset Date Problem Type Date of Resoluti on Source Presence of intrathecal baclofen pump active 2021-04-12 [facility]Act [facility] Transaminitis active 2021-04-12 ProblemAct [facility] T Chronic obstructive pulmonary disease, unspecified active 2021-02-03 ProblemAct [facility] Neurogenic bladder active 2021-03-11 ProblemAct [facility] Neurogenic orthostatic hypotension active 2021-04-12 ProblemAct [facility] Atrial fibrillation active 2020-12-11 ProblemAct [facility] Gastro-esophageal reflux disease without esophagitis active 2021-02-03 ProblemAct [facility] Suprapubic catheter active 2021-04-12 ProblemAct [facility] Tetraplegia active 2021-02-03 ProblemAct [facility] Traumatic fracture of cervical spine active 2021-04-12 ProblemAct [facility] Constipation active 2021-04-12 ProblemAct [facility] Sepsis active 2021-04-11 ProblemAct [facility] Anemia of chronic disease active 2020-12-10 ProblemAct [facility] Acute calculous cholecystitis active 2021-04-12 ProblemAct [facility] Encounters Encounter Type Encounter Reason Primary Diagnosis Location Date Ambulatory Calculus of gallbladder with acute cholecystitis without obstruction [facility] 06/17/2021 Ambulatory Calculus of gallbladder with acute cholecystitis without obstruction [facility] 05/03/2021 Inpatient Cholecystitis, unspecified [facility] 04/10/2021 Inpatient Mechanical complication due to urethral (indwelling) catheter (HC Code) (HC CODE) [facility] 03/10/2021 Care Team Organization Name Specialty Phone Email Start Date End Da te [facility] PCP,No Primary Care 06/17/2021 12/25/2023 [facility] NO PCP Primary Care 04/10/2021 06/17/2021 [facility] JOSE ALEJANDRO PINTO Primary Care 03/10/2021 03/10/2021
--- OUTSIDE RECORDS SUMMARY | 2024-11-27 13:57 | XMS_ITS | Clinical Summary ---
Author Organization [facility] Address [address] [place] [address] Care Team Providers Care Electrical Solderer Name Role Phone Unavailable Primary Care Provider [...] TIMES A DAY 0 07/05/2021 Active Baclofen 75187 MCG/20ML SOSY 20 mL by Intrathecal route. [...] 60 07/22/2021 10:48 AM EDT Temperature 36.6 C (97.8 F) 07/22/2021 10:48 AM EDT Respiratory Rate - - Oxygen Saturation - [...] 1 - PCV) 2017 Influenza Vaccine (#1) 2025 01/20/2021 RSV Adult > 60+ Yrs or Pregn ant (1 - 1-dose 75+ series) 08/08/2027 Hepatitis B Vaccines Aged Out No long er eligible based on patient's age to complete this topic RSV Ped < 20 months Aged Out No longe r eligible based on patient's age to complete this topic Eran Guerrero Workers Comp Self 1950 [address] [facility] [place], [place] Eran Guerrero Personal/Family Self 1950 3 [facility], [place] Eran Guerrero TPL/AUTO Self 1950 [address] [place] [address]
--- NOTE | 2024-11-27 14:11 | MHC.OFFVIS ---
Intake Visit Reasons: 6 mnts Sz Allergies No Known Allergies (No Known Allergies*) Allergy (Verified 08/20/24 14:12) HPI Comments Details: 74 yo man with traumatic spinal cord injury causing paraplegia, neurogenic bladder with suprapubic catheter, HTN, CAD, A fibb, LATANYA on CPAP, and seizure disorder. He was initially seen at [facility] in Jan 2024 with severe encephalopathy while his EEG revealed bilateral epileptic discharges. CSF analysis revealed mildly elevated protein but no other abnormality. He did not have any more seizures. His stated that he did not have any more seizures and may be he should not be taking the med for seizures. He was not having any issues with the drug. [facility] Medical History (Updated 11/27/24 @ 14:13 by Lorena Milligan MD) Paraplegia Seizure disorder Paroxysmal atrial fibrillation Complex sleep apnea syndrome Spasticity Bladder spasm Neurogenic bladder Chronic hypercapnic respiratory failure Restrictive lung mechanics due to neuromuscular disease LATANYA on CPAP CAD (coronary artery disease) HTN (hypertension) Surgical History Chronic suprapubic catheter History of carpal tunnel release Hx of colonoscopy Hx of rotator cuff surgery History of hip surgery Family History Father Diabetes HTN (hypertension) CVD (cardiovascular disease) Mother CVD (cardiovascular disease) Diabetes HTN (hypertension) Brother CVD (cardiovascular disease) Diabetes HTN (hypertension) Social History Household Members: Spouse Housing: House Do you presently have visiting nurse or other home services: Yes (visiting nurses, cnas daily) Alcohol intake: former 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 HEENT:?No headache, vision changes, hearing loss, nasal congestion, sore throat. Neurological:?No dizziness, syncope, seizures, numbness, tingling, weakness, tremors, memory loss. Psychiatric:?No anxiety, depression, mood swings, sleep disturbance, or hallucinations. Endocrine:?No heat/cold intolerance, polydipsia, polyuria, or hair/skin changes. Hematologic/Lymphatic:?No easy bruising, bleeding, or lymphadenopathy. Integumentary (Skin):?No rash, lesions, itching, or color changes. ? Physical Exam Neuro Other: He is alert and awake answering questions mostly keeping quite. He was not in any distress. He was in a motorized chair with paraplegia. Assessment & Plan Assessment & Plan (1) Paraplegia: Comment: MRI brain WO at [facility] in Jan 2024: Brain OK, L maxillary/forntal/ethmoid?sinus area disease EEG at [facility] in Jan 2024: Severe gen slowing EEG at [facility] in Jan 2024: Freq bilateral epileptic discharges LP at [facility] in Jan 2024: OP 14cm, WBCs 0, RBCs 1, Glu 49, Pro 49.6, No bands, negative meningitis panel. 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 Orders: Orders EEG electroencephalogram Today G40.909 - Epilepsy, unspecified, not intractable, without status epilepticus Coding Level of Care Code Tele Est Pt Level 4 (83958) Diagnoses Paraplegia G82.20 Seizure disorder G40.909
== END 2024-11-27 14:23 | disposition home or self-care (01) ==
LOC: HO.HSM 13:23
PROVIDERS: PCP Internal Medicine; Visit Provider Psychiatry & Neurology Neurology
DX: G82.20 Paraplegia, unspecified (principal); G40.909 Epilepsy, unspecified, not intractable, without status epilepticus
CPT/HCPCS: 99214

== ENCOUNTER 2024-12-05 13:24 | Outpatient (REF) | payer OTHER, SELFPAY ==
--- OUTSIDE RECORDS SUMMARY | 2024-11-30 | XMS_ITS | Encounter Summary ---
Author Organization [facility] Address [address] [place] [address] Phone Care Team Providers Care Phys Therapist Name Role Phone Aba Linares DO Unavailable AidenAba olivia DO Primary Care Provider [phone] Reason for Visit * Auth/Cert (Routine) Specialty Diagnoses / Procedures Referred By Contac t Referred To Contact Referral ID Status Reason Start Date Expiration Date Visits Re quested Visits Authorized [id number] 1 1 Encounter Details Date Type Department Care Team (Late st Contact Info) Description 11/30/2024 Home [facility] Visit [facility] [address] [place] [address] Xiang Abreu LPN [address] [place] [address] [email or web address] 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 Not on robert e 09/02/2022 Are you concerned about learning? Not on file 09/02/2022 No 09/02/2022 No 09/02/2022 Digital Access Answer Date Recorded No 10/01/2022 No 10/01/2022 Reliable internet access at home? Not on file 10/01/2022 Device with a working camera? Not on file Intimate Partner Violence Answer Date R ecorded Are you denied basic needs s uch as food, clothing, or medical care? No 08/29/2024 In the past 12 months have y ou been in a relationship with a person who hurts, threatens, or tries to control you? No 08/29/2024 Are you denied basic needs s uch as food, clothing, or medical care? No 08/29/2024 In the past 12 months have y ou been in a relationship with a person who hurts, threatens, or tries to control you? No 08/29/2024 Sex and Gender Information Value Date Recorded Sex Assigned at Male 12/03/2022 12:49 PM EDT Legal Sex Male 9:59 PM EDT Gender Identity Male 12/03/2022 12:49 PM EDT Sexual Orientation Not on file documented as of this encounter Last Filed Vital Signs Vital Sign Reading Time Taken Comments Blood Pressure 98/58 11/30/2024 12:15 PM EDT Pulse 64 11/30/2024 12:15 PM EDT Temperature 36.9 C (98.4 F) 11/30/2024 12:15 PM EDT Respiratory Rate 16 11/30/2024 12:15 PM EDT Oxygen Saturation 94% 11/30/2024 12:15 PM EDT Inhaled Oxygen Concentration - - Weight - - Height - - Body Mass Index - - documented in this encounter Plan of Treatment Upcoming Encounters Date Type Department Care Team (Late st Contact Info) Description 12/06/2024 1:30 AM EDT Home Care Visit [facility] [address] [place], [place] [phone] Janet Byrd RN [address] [place] [phone] [email or web address] 12/07/2024 Home Care Visit [facility] [address] [place] [address], [place] [phone] Janet Byrd RN [address] [place] [address] [email or web address] 12/08/2024 12:30 AM EDT Home [facility] Visit [facility] [address] [place] [phone] Janet Byrd RN [address] [place] [address] [email or web address] 12/09/2024 1:00 AM EDT Home Care Visit [facility] [address] [place] [phone] Janet Byrd RN [address] [place] [address] [email or web address] 12/10/2024 1:00 AM EDT Home Care Visit [facility] [address] [place] [phone] Janet Byrd RN [address] [place] [address] [email or web address] 12/11/2024 12:30 AM EDT Home Care Visit [facility] [address] [place] [phone] Janet Byrd RN [address] [place] [address] [email or web address] 12/12/2024 1:00 AM EDT Home Care Visit [facility] [address] [place] [phone] Janet Byrd RN [address] [place] [address] [email or web address] 12/13/2024 12:30 AM EDT Home Care Visit [facility] [address] [place] [phone] Janet Byrd RN [address] [place] [address] [email or web address] 12/14/2024 12:30 AM EDT Home Care Visit [facility] [address] [place] [phone] Janet Byrd RN [address] [place] [address] [email or web address] 12/15/2024 Home Care Visit [facility] [address] [place] [phone] Janet Byrd RN [address] [place] [address] [email or web address] 12/16/2024 1:00 AM EDT Home Care Visit [facility] [address] [place] [phone] Janet Byrd RN [address] [place] [address] [email or web address] 12/17/2024 12:30 AM EDT Home Care Visit [facility] [address] [place] [phone] Janet Byrd RN [address] [place] [address] [email or web address] 12/18/2024 1:30 AM EDT Home Care Visit [facility] [address] [place] [phone] Janet Byrd RN [address] [place] [address] [email or web address] 12/19/2024 1:00 AM EDT Home Care Visit [facility] [address] [place] [phone] Janet Byrd RN [address] [place] [address] [email or web address] 12/20/2024 1:00 AM EDT Home [facility] Visit [facility] [address] [place] [phone] Janet Byrd RN [address] [place] [address] [email or web address] 12/21/2024 Home Care Visit [facility] [address] [place] [phone] Janet Byrd RN [address] [place] [address] [email or web address] 12/22/2024 Home Care Visit [facility] [address] [place] [phone] Janet Byrd RN [address] [place] [address] [email or web address] 12/23/2024 1:00 AM EDT Home Care Visit [facility] [address] [place] [phone] Janet Byrd RN [address] [place] [address] [email or web address] 12/24/2024 Home Care Visit [facility] [address] [place] [phone] Janet Byrd RN [address] [place] [address] [email or web address] 12/25/2024 Home Care Visit [facility] [address] [place] [phone] Janet Byrd RN [address] [place] [address] [email or web address] 12/26/2024 Home Care Visit [facility] [address] [place], [place] [phone] Janet Byrd RN [address] [place] [address] [email or web address] 12/27/2024 Home Care Visit [facility] [address] [place] [phone] Janet Byrd RN [address] [place] [address] [email or web address] 12/28/2024 Home Care Visit [facility] [address] [place] [phone] Janet Byrd RN [address] [place] [address] [email or web address] 12/29/2024 Home Care Visit [facility] [address] [place] [phone] Janet Byrd RN [address] [place] [address] [email or web address] documented as of this encounter Visit Diagnoses Not on filedocumented in this encounter Home Health Visit - Care Plan Visit Details Visit Type -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 VISIT Discipline -Alf Problems Problem Description Start Date Status Goals Interve ntions HH - Medication Management Disciplines: All Active Home Health Disciplines, Alf 07/03/2024 Active 1 goal linked to scheduled/document ed intervention 2 goal interventions scheduled/document ed in this visit HH - Focus of Care and Teaching Disciplines: All Active Home Health Disciplines w/RD 07/03/2024 Active 1 goal linked to scheduled/document ed intervention 1 goal intervention scheduled/document ed in this visit HH - Emergency Planning - Knowledge of Disciplines: All Active Home Health Disciplines 07/03/2024 Active 1 goal linked to scheduled/document ed intervention 2 goal interventions scheduled/document ed in this visit HH - Infection - Actual or Risk of Disciplines: All Active Home Health Disciplines 07/03/2024 Active 1 goal linked to scheduled/document ed intervention 1 goal intervention scheduled/document ed in this visit HH - Standard of Care Disciplines: All Active Home Health Disciplines 07/03/2024 Active 1 goal linked to scheduled/document ed intervention 3 goal interventions scheduled/document ed in this visit HH - Pain Disciplines: All Active Home Health Disciplines 07/03/2024 Active 1 goal linked to scheduled/document ed intervention 1 goal intervention scheduled/document ed in this visit HH - Wound Disciplines: All Active Home Health Disciplines, Alf 07/03/2024 Active 1 goal linked to scheduled/document ed intervention 2 problem interventions scheduled/document ed in this visit HH - Urinary Elimination - Impaired Disciplines: All Active Home Health Disciplines, Alf 07/03/2024 Active 1 goal linked to scheduled/document ed intervention 1 problem intervention scheduled/document ed in this visit 1 goal intervention scheduled/document ed in this visit Goals Goal Associated Problem Outcome Goal Met? Visit Notes HH - Safe medication management, avoid unnecessary harm related to medication errors and/or interactions HH - Medication Management No HH - Communication and collaboration to achieve patient goals HH - Focus of Care and Teaching No HH - Knowledge of options for managing care in the event of an emergency related situation. HH - Emergency Planning - Knowledge of No HH - Patient will have no new infection; any new infection that occurs will be identified and treated promptly; existing infection will resolve without complication Description: Patient and caregiver(s) will demonstrate understanding of infection prevention, monitoring, and treatment as appropriate HH - Infection - Actual or Risk of No HH - Achieve care management for a safe to home/community discharge from homecare HH - Standard of Care No HH - Frequency of pain interfering with patient's activity or movement will improve with activity or movement by discharge. Description: Pain will be managed over the course of care. Patient's acceptable level of pain is 1 - pain that doesn't interfere. HH - Pain Progressing No HH - Demonstrate/verbalize wound care management, wound/lesion will be free from complications HH - Wound Progressing No HH - Demonstrate/verbalize management of genitourinary disease, treatment, and s/s of complication HH - Urinary Elimination - Impaired No Interventions Intervention Associated Problem/Goal Status Variance Visit Notes HH - I/E medication management: administration, purpose, dosages, preparation, setup, scheduling, side effects, food/drug interactions, and potential complications as indicated Description: Update patient's copy of medication list as needed. Problem:HH - Medication Management Goal:HH - Safe medication management, avoid unnecessary harm related to medication errors and/or interactions Completed HH - Complete medication review every visit and medication reconciliation as indicated. Pharmacy information: Problem:HH - Medication Management Goal:HH - Safe medication management, avoid unnecessary harm related to medication errors and/or interactions Completed HH - Focus of care, teaching completed and plan for next visit Problem:HH - Focus of Care and Teaching Goal:HH - Communication and collaboration to achieve patient goals Completed Primary Clinical Focus this Visit & Instruction Provided: Aide present during visit. Pt very sleepy but easy to arouse. Pt seen for wound care. Wound care provided with no issues. Pt follows up with [facility] next week. FC draining clear dark reddish/brown urine. Pt last BM was today. Discussed wound care orders, s/s of infection and when to call [facility]//911. Instruction Provided to: patient and caregiver Response to Instruction/Teaching: Is partially able to teach back topics as evidenced by verbal recall. Plan for Next Visit Specific Focus & Education Needed: wound care New Orders: None at this time Updated Discharge Plan: Discharge once pt/cg is indep with wound care and knowledgeable of s/s of infection or complications to report to provider. HH - I/E management of care in an urgent or emergency (ER) situation: When to call your Home Care Team/911, ER plans, supplies, evacuation, when to contact local ER officials and how to stay informed Problem:HH - Emergency Planning - Knowledge of Goal:HH - Knowledge of options for managing care in the event of an emergency related situation. Completed - Emergency planning assessment: the emergency plan, supplies needed, emergency contact numbers and an evacuation plan were reviewed Description: Patient and Caregiver is/are knowledgeable of emergency plans. Problem:HH - Emergency Planning - Knowledge of Goal:HH - Knowledge of options for managing care in the event of an emergency related situation. Completed HH - Assess infection risk and s/s Problem: - Infection - Actual or Risk of Goal:HH - Patient will have no new infection; any new infection that occurs will be identified and treated promptly; existing infection will resolve without complication Completed HH - Assess vital signs, pulse oximetry, pain, and as indicated, orthostatic vital signs Description: use agency-specific parameters Problem: - Standard of Care Goal:HH - Achieve care management for a safe to home/community discharge from homecare Completed HH - Assess skin integrity Problem:HH - Standard of Care Goal:HH - Achieve care management for a safe to home/community discharge from homecare Completed HH - I/E management of skin integrity and non-wound impairment Description: s/s of pressure injury, pressure reduction, and injury prevention measures Problem:HH - Standard of Care Goal:HH - Achieve care management for a safe to home/community discharge from homecare Completed HH - Assess pain Problem: - Pain Goal: - Frequency of pain interfering with patient's activity or movement will improve with activity or movement by discharge. Completed HH - Wound care: Description: Left foot Cleanse with normal saline Pat dry with guaze apply xeroform and cover with foam bordered dressing. change three times a week and PRN. Problem:HH - Wound Completed HH - Wound care: Description: Coccyx wound care daily and prn Cleanse with vashe 5 minute, then saline Zinc paste to periwound Aquacel ag to wound bed Cover with foam adhesive Problem:HH - Wound Completed HH - I/E management of urinary elimination/catheter care Description: s/p cath managed by urology Problem:HH - Urinary Elimination - Impaired Goal:HH - Demonstrate/verbalize management of genitourinary disease, treatment, and s/s of complication Completed HH - I/E management of urinary elimination/catheter care Description: Flush Nephrostomy catheter with 5cc of NS/water using for injection using sterile technique daily Document that the catheter is not twisted or blocked Maintain drainage bag to gravity. Dressing change as needed if soil or dirty. Problem:HH - Urinary Elimination - Impaired Completed documented in this encounter Care Teams Phys Therapist Relationship Specialty Start Date End Date Aba Linares DO [email or web address] PCP - General 05/11/17 Aba Linares DO [email or web address] Historical LMR Provider 02/23/17 documented as of this encounter Additional Source Comments The information contained in this document represents components of the legal health record. It is not the complete legal health record.[facility]
--- OUTSIDE RECORDS SUMMARY | 2024-12-05 13:41 | XMS_ITS | Encounter Summary ---
Author Organization [facility] Address [address] [place] [address] Care Team Providers Care Bottle Blowing Machine Tender Name Role Phone Aba Linares DO Primary Care Provider [phone] Encounter Details Date Type Department Care Team (Late st Contact Info) Description 11/07/2024 Lab Requisition [facility] [address] [facility] [place] [address] Curtis Rodrigues MD [address] [facility] [address] [address] [place] [phone] Urinary tract infection, site not specified Social [...] bliniensis( A) 11/10/2024 12:42 PM EDT [facility] Comment: The organism value for this result has been updated. These results have been appended to the previously preliminary verified report. Edited result: Previously reported as Yeast on 11/09/2024 at 0957 EDT. 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
--- OUTSIDE RECORDS SUMMARY | 2024-12-05 13:41 | XMS_ITS | Clinical Summary ---
Author Organization [facility] Address [address] [place] [address] Care Team Providers Care Strip Mine Supervisor Name Role Phone Unavailable Primary Care Provider [...] TIMES A DAY 0 07/05/2021 Active Baclofen 55632 MCG/20ML SOSY 20 mL by Intrathecal route. [...] Guerrero Workers Comp Self 1950 [address] [facility] [place], [place] Eran Guerrero Personal/Family Self 1950 [address] [facility], [place] Eran Guerrero TPL/AUTO Self 1950 [address] [place] [address]
--- OUTSIDE RECORDS SUMMARY | 2024-12-05 13:41 | XMS_ITS | Encounter Summary ---
Author Organization [facility] Address [address] [place] [phone] Care Team Providers Care Bottle Washing Machine Operator Name Role Phone Aba Linares Primary Care Provider [phone] Encounter Details Date Type Department Care Team ([facility] st Contact Info) Description 03/10/2021 Scanned Document INTERFACE DEFAULT [address] [place] [address] System, Provider Not In Social History [...] as of this encounter Care Teams Bottle Washing Machine Operator Relationship Specialty Start Date End Date MilagrosAba DO [address] [facility] [place] [phone] PCP - General Internal Medicine 03/10/21 documented as of this encounter
--- OUTSIDE RECORDS SUMMARY | 2024-12-05 13:41 | XMS_ITS | Encounter Summary ---
Author Organization [facility] Address [address] [place], [place] [id number] Care Team Providers Care Senior Capital Markets Specialist Name Role Phone Pcp, No Primary Care Provider Unavailabl e Encounter Details Date Type Department Care Team (Late st Contact Info) Description 07/22/2021 Scanned Document [facility] General Surgery [facility] [address] [place] [phone] Dorie Callahan APRN [facility] [place] [address] Social History Tobacco Use Types [...] on filedocumented in this encounter Care Teams Senior Capital Markets Specialist Relationship Specialty Start Date End Date Pcp, No PCP - General General Medicine 04/10/21 documented as of this encounter
--- NOTE | 2024-12-06 09:01 | EEG_ITS ---
This is a 16 channel EEG with an EKG lead. Patient is reported awake during the tracing. Background EEG rhythm is 5-20 microvolt mostly in theta range with no obvious asymmetry or paroxysmal tendency. Photic stimulation does not produce any significant driving. Hyperventilation is not performed. No sharp wave spikes or paroxysmal tendency noted. Cardiac lead does not reveal any significant abnormality. Impression: Generalized slowing with no evidence of seizure disorder MTDD
== END 2024-12-05 13:25 | disposition home or self-care (01) ==
LOC: HO.NEURO 13:24
PROVIDERS: PCP Internal Medicine; Visit Provider Psychiatry & Neurology Neurology
DX: G40.909 Epilepsy, unspecified, not intractable, without status epilepticus (principal)
CPT/HCPCS: 95816

== ENCOUNTER → 2024-12-06 09:01 | Outpatient (BNV) | payer OTHER, SELFPAY | PROVIDERS: PCP Internal Medicine; Visit Provider Psychiatry & Neurology Neurology | DX: G40.909 Epilepsy, unspecified, not intractable, without status epilepticus (principal) | CPT/HCPCS: 95816 ==

== ENCOUNTER 2024-12-26 12:01 | Outpatient (AMB) | payer OTHER, SELFPAY ==
--- NOTE | 2024-12-26 12:20 | A.OFFVIS_ITS ---
Intake Visit Reasons: follow up after EEG Allergies No Known Allergies (No Known Allergies*) Allergy (Verified 08/20/24 14:12) HPI Comments Details: 74 yo man with traumatic spinal cord injury causing paraplegia, neurogenic bladder with suprapubic catheter, HTN, CAD, A fibb, LATANYA on CPAP, and seizure disorder. He was [place] [facility] [place] with severe encephalopathy while his EEG revealed bilateral epileptic discharges. CSF analysis revealed mi ldly elevated protein but no other abnormality. He did not have anymore seizures. His recent EEG revealed slowing but no epileptic discharges. [facility] Medical History (Updated 12/26/24 @ 12:51 by Lorena Milligan MD) Paraplegia Seizure disorder Paroxysmal atrial fibrillation Complex sleep apnea syndrome Spasticity Bladder spasm Neurogenic bladder Chronic hypercapnic respiratory failure Restrictive lung mechanics due to neuromuscular disease LATANYA on CPAP CAD (coronary artery disease) HTN (hypertension) Surgical History Chronic suprapubic catheter History of carpal tunnel release Hx of colonoscopy Hx of rotator cuff surgery History of hip surgery Family History Father Diabetes HTN (hypertension) CVD (cardiovascular disease) Mother CVD (cardiovascular disease) Diabetes HTN (hypertension) Brother CVD (cardiovascular disease) Diabetes HTN (hypertension) Social History Household Members: Spouse Housing: House Do you presently have visiting nurse or other home services: Yes (visiting nurses, cnas daily) Alcohol intake: former Comment: private SECURITY CONTROL ROOM OFFICER in room Patient Tobacco Use Status: Former Tobacco user Tobacco use type: Cigarette Years Smoked: 20 years Advance Directives Date on File: 06/08/23 service: No Review of Systems Const Details: No seizures. Physical Exam Neuro Other: Alert and awake with no significant change from previous exam Assessment & Plan Assessment & Plan (1) Paraplegia: Comment: EEG at [facility] [place]: Slowing but no epileptic activity MRI brain WO at [facility] [place]: Brain OK, L maxillary/frontal/ethmoid?sinus area disease EEG at [facility] [place] 20[place]: Severe gen slowing EEG at [facility] [place]: Freq bilateral epileptic discharges LP at [facility] [place]: OP 14cm, WBCs 0, RBCs 1, Glu 49, Pro 49.6, No bands, negative meningitis panel. Code(s): G82.20 - Paraplegia, unspecified Category: Medical Plan Impression: a: Traumatic spinal cord injury resulting in paraplegia b: Seizure disorder diagnosed in 2023 when he was admitted at [facility] with encephalopathy with no recurrence Rec: Decrease levetiracetam to 500mg twice a day for a month. If no seizure at that point, decrease it to 250mg twice a day for a month. If ok on that dose for a month, decrease it to 250mg one at night for a month. After that, if no seizure, stop this med. Medications: New levetiracetam 500 mg (5 mL) PO BID 900 mL 0RF 90 days Discontinued levetiracetam Discontinued Reason: Doctor's Order 1,000 mg (10 mL) PO BID 90 days 1,800 mL 0RF Coding Level of Care Code Tele New Pt Level 4 (21634) Diagnoses Paraplegia G82.20
== END 2024-12-26 14:53 | disposition home or self-care (01) ==
PROVIDERS: PCP Internal Medicine; Visit Provider Psychiatry & Neurology Neurology
DX: G82.20 Paraplegia, unspecified (principal)
CPT/HCPCS: 99214

== ENCOUNTER → 2024-12-26 12:01 | Outpatient (BNVA) | payer OTHER, SELFPAY | PROVIDERS: PCP Internal Medicine; Visit Provider Psychiatry & Neurology Neurology | DX: G82.20 Paraplegia, unspecified (principal) | CPT/HCPCS: 99212 ==

== ENCOUNTER 2024-12-27 15:28 | Outpatient (REF) | payer OTHER, SELFPAY ==
--- OUTSIDE RECORDS SUMMARY | 2024-12-25 23:59 | XMS_ITS | Continuity of Care Document ---
Author Organization [facility] Raymond lalito Address [address] [place] [address] [address] [place] [address]- Care Team Providers Care Jd Edwards Consultant Name Role Phone Aidenne Aba CHUNG Primary Care Physician [phone] Encounter [facility] Date(s): 11/25/24 - 12/25/24 [facility] [address] [place] [id number] Encounter Type: Triage Allergies, Adverse Reactions, Alerts Substance Criticality Severity Reaction Reaction Severity Status traMADol 1 Active 1mental status change Immunizations Given and Recorded Vaccine Date Status [...] virus vaccine, inactivated 04/17/16 Rohit rded SARS-CoV-2(COVID-19)mRNA-LNP vac([id number]) 02/24/24 Recorded SARS-CoV-2(COVID-19)mRNA-LNP vac([id number]) 04/15/23 Recorded RSV vaccine preF3, recombinant 04/15/23 Recorded [id number] bivalent booster vax 03/10/22 Recorded zoster vaccine, [...] 11:37:00 AM EST, Route to Pharmacy Electronically, [facility], Partial fill upon patient request if [...] Maintenance, 07/01/24 2:04:00 PM EST, Tablet, [id number] ([facility]), Partial fill upon patient request if the prescription is for a schedule II opioid drug., 178, cm, 07/01/24 7:28:00 EST, Height, 88, kg, 06/18/24 22:32:00 EST, Dry Weight Start Date: 07/01/24 Status: Ordered Quantity: 90.0 Unit: tablet Repeat number: 1 Bedside Table Bedside Table, See Instructions, # 1 kit, Refills 0, Tot. Refills 0, Maintenance, Dx: Tetraplegia, 3/27/25 2:29:00 PM EDT, Supply Start Date: 08/01/24 [...] antibiotics on Monday and fax results to [facility] ID [id number] and PCP, 04/08/24 2:27:00 PM EST, Supply Start Date: 04/08/24 Status: Ordered Quantity: 1.0 Unit: each Repeat number: 1 Clobetasol (Eqv-Temovate) 0.05% topical cream APPLY A THIN LAYER OF CREAM TOPICALLY TO THE AFFECTED AREA(S) TWICE A DAY Start Date: 10/24/24 Status: Ordered Repeat number: 1 Dakins Quarter Strength 0.125% topical solution APPLY A DAKINS SOAKED GAUZE TO WOUND FOR 5 MINUTES EVERY OTHER DAY Start Date: 03/26/24 Status: Ordered Repeat number: 1 docusate sodium [...] Quantity: 200.0 Unit: tablet Repeat number: 1 methenamine hippurate 1 gm [...] Unit: kit Repeat number: 1 nystatin topical [id number] u/gm powder APPLY TOPICALLY TO THE AFFECTED AREA TWICE A DAY Start Date: 03/26/24 Status: Ordered Repeat number: 1 Please provide 28/11 TYPEWRITER RIBBON WINDER care and weekly VNA visits for medication management. Please provide 28/11 TYPEWRITER RIBBON WINDER care and weekly VNA visits for medication [...] Maintenance, 07/01/24 2:03:00 PM EST, Tablet, [facility] [id number] ([facility] 827), Partial fill upon patient request if the prescription is for a schedule II opioid drug., 178, cm, 07/01/24 7:28:00 EST, Height, 88, kg, 06/18/24 22:32:00 EST, Dry Weight Start Date: 07/01/24 Stop Date: 07/31/24 Status: Ordered Quantity: 90.0 Unit: tablet Repeat number: 1 trospium chloride 20 mg oral tablet 1 tablet = 20 mg, By Mouth, 2 times a day, TAKE 1 TABLET BY MOUTH TWICE DAILY Start Date: 10/24/24 Status: Ordered Repeat number: 1 Tylenol 325 [...] Confirmed Active Constipation Confirmed Active CAD in [place] artery Confirmed Active Presence of intrathecal baclofen [...] Team Personnel Name: Danny Whittaker RN Position: [facility] ED RN W/OE and Tasks Member Role: Primary Care Nurse Name: Drea Rodriguez RN Position: S RN Member Role: Primary Care Nurse Name: Aba Linares DO Position: Reference Physician Member Role: PCP Address: [address] [place] [address] Internal [address] Telecom: Name: Renata Cantu RN Position: [facility] RN Supv Member Role: Primary Care Nurse Name: Magaly Allan RN Position: [facility] SN RN Member Role: Primary Care Nurse Name: Tesha Kirkpatrick RN Position: S RN Member Role: Primary Care Nurse Name: Karoline Rader RN Position: [facility] RN Member Role: Primary Care Nurse Name: Clay Dunham RN Position: [facility] RN Member Role: Primary Care Nurse Name: Elsi Paulino RN Position: [facility] RN Member Role: Primary Care Nurse Name: Adriel Mahmood RN Position: S RN Member Role: Primary Care Nurse Name: Vera Patricia RN Position: [facility] RN Member Role: Primary Care Nurse Name: Troy Ni RN Position: [facility] Rad RN Member Role: Primary Care Nurse Name: Pau Mills RN Position: [facility] RN Member Role: Primary Care Nurse Name: Ramya Bella NP Position: [facility] Associate Professional Member Role: Lifetime Consulting Provider Address: [address] [facility] [place] [place] [address]- Telecom: Name: Leila Black RN Position: [facility] RN Member Role: Primary Care Nurse Name: Gaby Byrd RN Position: [facility] ED RN W/OE and Tasks Member Role: Primary Care Nurse Name: Brittnee Inman RN Position: [facility] RN Member Role: Primary Care Nurse Name: Hung Tamez DO Position: [facility] Renal MD Member Role: Lifetime Consulting Physician Address: [address] [facility] [address] [facility] [place], [place] [address] Telecom: Name: Cecilia Thompson RN Position: [facility] RN Member Role: Primary Care Nurse Name: Brittany Loredo RN Position: [facility] RN Member Role: Primary Care Nurse Name: Cate Pantoja Position: [facility] RN Member Role: Primary Care Nurse Name: Genevieve Orozco RN Position: [facility] RN Member Role: Primary Care Nurse Name: Trudy Prakash RN Position: [facility] RN Member Role: Primary Care Nurse Name: Nicole Upton RN Position: [facility] RN Member Role: Primary Care Nurse Name: Lance Vegas RN Position: [facility] OB RN Member Role: Primary Care Nurse Name: Zi Soler RN Position: [facility] RN Member Role: Primary Care Nurse Name: Kenya Corrigan RN Position: [facility] RN Member Role: Primary Care Nurse Name: Eriberto Ruffin RN Position: [facility] RN Member Role: Primary Care Nurse Name: Madai Joy RN Position: [facility] RN Member Role: Primary Care Nurse Name: Urban Perrin LPN Position: [facility] RN Member Role: Primary Care Nurse Name: Sonja Cage RN Position: [facility] RN Member Role: Primary Care Nurse Name: Alec Chahal RN Position: [facility] RN Member Role: Primary Care Nurse Name: Dawson Zavala RN Position: [facility] RN Member Role: Primary Care Nurse Name: Анна Brock RN Position: [facility] RN Supv Member Role: Primary Care Nurse Care Team Related Persons Name: CIRO TORREZ Name: LOC BAKER Insurance Providers Guarantor name: [facility] Information #: 1 Payer: WORK COMP NON EM Payer Identifier: LENNY Member Number: [id number] Group Number: [id number] Subscriber Identifier: [id number] Relationship to Subscriber: self Coverage Type: Worker's Compensation Coverage Verification Date: NA Telecom: LENNY Address:
--- OUTSIDE RECORDS SUMMARY | 2024-12-27 15:32 | XMS_ITS | Encounter Summary ---
Author Organization [facility] Address [address] [facility] [address] [place] [address] Phone Care Team Providers Care Er Medical Technician Name Role Phone Aba Linares DO Unavailable Man Ambriz MD Unavailable [phone] Aba Linares DO Primary Care Provider [phone] Encounter Details Date Type Department Care Team (Late st Contact Info) Description 12/22/2020 Procedure Pass [facility] Periop [address] [place] [address] Social History Tobacco Use Types Packs/Day Years [...] Care Team (Late st Contact Info) Description 12/28/2024 Home Care Visit [facility] [address] [place] [address] Unscheduled, [facility] [address] [place] [address] 12/29/2024 Home Care Visit [facility] [address] [place] [address] Janet Byrd RN [address] [place] [address] documented as of this encounter Visit Diagnoses Not on filedocumented in this encounter Care Teams Er Medical Technician Relationship Specialty Start Date End Date Aba Linares DO PCP - General 05/11/17 Aba Linares DO Historical LMR Provider 02/23/17 Man Ambriz MD [address] [place] [address] Historical LMR Provider 02/23/17 documented as of this encounter Additional Source Comments The information contained in this document represents components of the legal health record. It is not the complete legal health record.[facility]
--- OUTSIDE RECORDS SUMMARY | 2024-12-27 15:32 | XMS_ITS | Encounter Summary ---
Author Organization [facility] Address [address] [place] [phone] Care Team Providers Care Religion Department Chair Name Role Phone Aba Linares Primary Care Provider [phone] Encounter Details Date Type Department Care Team ([facility] st Contact Info) Description 03/10/2021 Scanned Document INTERFACE DEFAULT [address] [place] [address] System, Provider Not In Social History [...] documented as of this encounter Care Teams Religion Department Chair Relationship Specialty Start Date End Date MilagrosAba DO [address] [facility] [place] [phone] PCP - General Internal Medicine 03/10/21 documented as of this encounter
--- OUTSIDE RECORDS SUMMARY | 2024-12-27 15:32 | XMS_ITS | Encounter Summary ---
Author Organization [facility] Address [address] [place], [place] [id number] Care Team Providers Care Store Clerk Name Role Phone Pcp, No Primary Care Provider Unavailabl e Encounter Details Date Type Department Care Team (Late st Contact Info) Description 07/22/2021 Scanned Document [facility] General Surgery [facility] [address] [place] [phone] Dorie Callahan APRN [facility] [place] [address] Social History Tobacco Use Types [...] on filedocumented in this encounter Care Teams Store Clerk Relationship Specialty Start Date End Date Pcp, No PCP - General General Medicine 04/10/21 documented as of this encounter
--- OUTSIDE RECORDS SUMMARY | 2024-12-27 15:32 | XMS_ITS | Clinical Summary ---
Author Organization [facility] Address [address] [place] [address] Care Team Providers Care Distributor Sales Consultant Name Role Phone Unavailable Primary Care Provider [...] TIMES A DAY 0 07/05/2021 Active Baclofen 93409 MCG/20ML SOSY 20 mL by Intrathecal route. [...] Eran Guerrero Workers Comp Self 1950 [address] [facility] [place], [place] Eran Guerrero Personal/Family Self 1950 [address] [facility], [place] Eran Guerrero TPL/AUTO Self 1950 [address] [place] [address]
[2024-12-27 18:18] LABS: Iron 19 mcg/dL (45-160); Percent Iron Saturation 8 % (15-50); Total Iron Binding Capacity 248 mcg/dL (228-428); Unsaturated Iron Binding 229 ug/dL
[2024-12-27 18:34] LABS: Ferritin 111 ng/mL (20-250)
== END 2024-12-27 15:29 | disposition home or self-care (01) ==
LOC: HO.LAB 15:28
PROVIDERS: PCP Internal Medicine; Visit Provider Internal Medicine
DX: D64.9 Anemia, unspecified (principal)
CPT/HCPCS: 36415; 82728; 83540

== ENCOUNTER 2025-03-25 13:56 | Outpatient (REF) | payer OTHER, SELFPAY ==
[2025-03-25 14:21] LABS: MANUAL DIFF FLAG NO
[2025-03-25 14:29] LABS: Hematocrit 32.5 % (42.0-52.0); Hemoglobin 10.4 g/dl (14.0-18.0); Imm Gran Abs Auto 0.02 X10*3/uL (0.00-0.03); Imm Gran Pct Auto 0.3 % (0.0-0.4); Lymphocytes Absolute Auto 1.5 X10*3/uL (1.2-4.9); Mean Corpuscular HGB Conc 32.0 g/dl (31.0-36.0); Mean Corpuscular Hemoglobin 26.7 pg (27.0-33.0); Mean Corpuscular Volume 83.3 fL (80.0-98.0); NRBC Abs Auto 0.000 X10*3/uL (0.0-0.012); NRBC Pct Auto 0.0 /100WBC (0.0-0.2); Platelet Count 129 X10*3/uL (160-400); Red Blood Count 3.90 X10*6/uL (4.60-5.80); White Blood Count 7.0 X10*3/uL (4.8-10.8)
[2025-03-25 14:59] LABS: Alanine Aminotransferase 17 U/L (0-40); Albumin Level 3.2 g/dL (3.5-5.0); Alkaline Phosphatase 76 U/L (39-117); Anion Gap 11 (12-20); Aspartate Amino Transferase 23 U/L (5-37); Blood Urea Nitrogen 23 mg/dL (9-16); Calcium 8.6 mg/dL (8.4-10.2); Carbon Dioxide 19 mmol/L (22-29); Chloride 103 mmol/L (96-108); Estimated Glomerular Filt Rate > 60; Iron 41 mcg/dL (45-160); Percent Iron Saturation 20 % (15-50); Potassium 3.9 mmol/L (3.3-5.1); Sodium 129 mmol/L (135-145); Total Iron Binding Capacity 209 mcg/dL (228-428); Total Protein 6.6 g/dL (6.5-8.0); Unsaturated Iron Binding 168 ug/dL
[2025-03-25 15:17] LABS: Ferritin 76 ng/mL (20-250); Free T4 (Free Thyroxine) 1.21 ng/dL (0.71-1.85); Thyroid Stimulating Hormone 2.38 uIU/mL (0.32-4.0); Vitamin B12 751 pg/mL (200-900)
--- OUTSIDE RECORDS SUMMARY | 2025-03-26 07:48 | XMS_ITS | Clinical Summary ---
Author Organization [address] Address [address] [place] [address] Phone Care Team Providers Care Drafter Mechanical Name Role Phone Aba Linares DO Primary Care Provider [phone] Allergies Active Allergy Reactions Criticality Noted Date Comments Tramadol Hallucinations High 08/28/2024 Medications acetaminophen (TYLENOL) 325 mg tablet Take 1 tablet (325 mg total) by mouth every 4 (four) hours if needed. 1 Active amiodarone (PACERONE) 200 mg tablet Take 0.5 tablets (100 mg total) by mouth 1 (one) time each day. Active bisacodyL (DULCOLAX) 10 mg suppository Insert 1 suppository (10 mg total) into the rectum 1 (one) time each day. Active fluconazole (DIFLUCAN) 100 mg tablet Take 1 tablet (100 mg total) by mouth every 21 (twenty-one) days. 4 Active levETIRAcetam (KEPPRA) 500 mg tablet Take 2 tablets (1,000 mg total) by mouth 2 (two) times a day. Active methenamine hippurate (HIPREX) 1 gram tablet Take 1 tablet (1 g total) by mouth 2 (two) times a day with meals. 4 Active nystatin (MYCOSTATIN) 100,000 unit/gram powder Apply 1 Application topically 2 (two) times a day. 1 Active sodium chloride 1,000 mg soluble tablet Take 1 tablet (1 g total) by mouth 3 (three) times a day. Active trospium (SANCTURA) 20 mg tablet Take 1 tablet (20 mg total) by mouth 2 (two) times a day. 5 Active baclofen (LIORESAL) 10 mg tablet Take 1 tablet (10 mg total) by mouth 3 times daily. 1 Active baclofen 1,000 mcg/mL intrathecal solution 20 mL by intrathecal route continuously. 1 Active pantoprazole (PROTONIX) 40 mg EC tablet Take 1 tablet (40 mg total) by mouth 2 (two) times a day. Do not crush, chew, or split. Active Encounters Date Type Department Care Team Description 02/26/2025 Lab Requisition [facility] - Main Lab [address] [place] [address] Shu Ramachandran PA Gross hematuria 02/20/2025 8:17 PM EDT - 02/20/2025 11:10 PM EDT Emergency [facility] Emergency [address] [place] [address] Nelda Brothers MD Mechanical complication of suprapubic catheter, initial encounter ([facility] V24) (Primary Dx); Urinary catheter change required Discharge Disposition: Home or Self Care from Last 3 Months Surgical History Surgery Date Site/Laterality Comments MULTIPLE TOOTH EXTRACTIONS PROCEDURE: EACH ADD TOOTH EXTRACTION; COMMENT: REMOVAL TOP TEETH SPINE SURGERY 05/08/2020 - 05/07/2021 stabilization surgery ROTATOR CUFF REPAIR KIDNEY STONE SURGERY Medical History Medical History Date Comments Essential hypertension, benign 01/31/2007 D X:Essential hypertension, benign Alcohol abuse, unspecified 01/31/2007 DX:Al cohol abuse, unspecified Quadriplegia, unspecified (C MS/HCC V24, [facility] V28) Seizures (CMS/HCC V24, [facility] V28) Atrial fibrillation (CMS/HCC V24, [facility] V28) COPD (chronic obstructive pu lmonary disease) (CMS/HCC V24, [facility] V28) Neuromuscular dysfunction of bladder, unspecified GERD (gastroesophageal reflux disease) Sleep apnea Kidney stones Family History Relation Name Status Comments Brother 1 Alive ETOH Brother 2 Alive 3 BROTHERS WITH DM Father (Age 68) EMPHYSEMA- SMOKER,DM Maternal Grandfather Maternal Grandmother Mother Alive DM, SKIN CA Paternal Grandfather Paternal Grandmother Social History Tobacco Use Types Packs/Day Years Used Date Smoking Tobacco: Former Cigarettes Tobacco Cessation:Counseling Given: Not Answered Alcohol Use Standard Drinks/Week Comments Not Currently 0 (1 standard drink = 0.6 oz pur e alcohol) Interpersonal Safety Answer Date Record ed Physical Abuse Unrecognized value 11/18/2024 Verbal Abuse Unrecognized value 11/18/2024 Sex and Gender Information Value Date Recorded Sex Assigned at Not on file Legal Sex Male 1:29 PM EST Gender Identity Not on file Sexual Orientation Not on file Obstetrics History Last Filed Vital Signs Vital Sign Reading Time Taken Comments Blood Pressure 101/56 02/20/2025 8:49 PM EDT Pulse 103 02/20/2025 10:45 PM EDT Temperature 36.7 C (98 F) 02/20/2025 8:49 PM EDT Respiratory Rate 18 02/20/2025 10:45 PM EDT Oxygen Saturation 99% 02/20/2025 10:45 PM EDT Inhaled Oxygen Concentration - - Weight 70.3 kg (155 lb) 02/20/2025 8:56 PM EDT Height 172.7 cm (5' 8 ) 02/20/2025 8:56 PM EDT Body Mass Index 23.57 02/20/2025 8:56 PM EDT Plan of Treatment Health Maintenance Due Date Last Done Comments Hepatitis A Vaccines (1 of 2 - Risk 2-dose series) 08/08/1971 Pneumococcal Vaccine: 50+ Years (2 of 2 - PCV) 12/21/2012 12/22/2011 DTaP,Tdap,and Td Vaccines (2 - Td or Tdap) 04/21/2013 04/21/2003 Cholesterol Screening (Lipid Panel) 04/05/2022 Colorectal Cancer Screening: Stool Based Tests (FOBT/FIT) 04/05/2022 07/31/2003 Hepatitis C Screening 04/05/2022 Social Influencers of Health Screening 04/05/2022 Hypertension/CHF/CAD Annual BMP Blood Test 03/29/2024 03/29/2023, 03/20/2023, 04/14/2021, Additional history exists Depression Screening 05/08/2024 COVID-19 Vaccine ( season) 2025 02/24/2024, 04/15/2023, 03/10/2022, Additional history exists Falls Risk Assessment 11/18/2025 11/18/2024 Zoster Vaccines Completed 03/10/2022, 12/2021, 10/06/2018, Additional history exists RSV Immunization Adult Patients Completed 04/15/2023 Influenza Vaccine Completed 02/07/2025, , 02/03/2023, Additional history exists Abdominal Aortic Aneurysm (AAA) Screen Discontinued 02/14/2025, 10/23/2020 HIB Vaccines Aged Out No longer eligi [...] this topic Medical Devices Implanted Type Area Spinner Continuous Device Identifier Shelf Expiration Date Model / Serial / Lot Stent Uret [id number] Stretch W/O Gw - Snone - [id number] Implanted:Qty: 1 on 11/18/2024 by Aristides Gant MD at [facility] Stents Left: Ureter [employer]GYNECOLG Y 06/06/2027 [id number] / NONE / [id number] Procedures Procedure Name Priority Date/Time Associated Diagnosis Comments BACTERIAL IDENTIFICATION AND SUSCEPTIBILITY, AEROBIC Routine 02/25/2025 5:47 PM EDT Gross hematuria from Last 3 Months Results * (ABNORMAL) Baterial identification and susceptibility, aerobic (02/25/2025 5:47 PM EDT) Culture, Bacterial ID and Sensitivity Klebsiella pneumoniae ESBL(A) RANDOLPH 03/01/2025 8:55 AM EDT [facility] Comment: THIS ORGANISM IS POSITIVE FOR EXTENDED SPECTRUM BETA-LACTAMASE (ESBL). EXTENDED SPECTRUM BETA-LACTAMASE PRODUCING ORGANISMS DEMONSTRATE DECREASED ACTIVITY WITH PENICILLINS, CEPHALOSPORINS AND AZTREONAM. This is an edited result. Previous organism was Gram negative bacilli on 02/27/2025 at 1126 EDT. This is an edited result. Previous organism was Klebsiella pneumoniae ssp pneumoniae on 02/28/2025 at 0851 EDT. Culture, Bacterial ID and Sensitivity Providencia rettgeri(A) RANDOLPH 03/01/2025 8:55 AM EDT [facility] Comment: The organism value for this result has been updated. These results have been appended to the previously preliminary verified report. Urine Umbilical catheter / Unknown Non-blood Collection / Unknown 02/25/2025 5:47 PM EDT 02/26/2025 10:05 AM EDT Narrative Organism Antibiotic Method Susceptibility Klebsiella pneumoniae ESBL Amoxicillin/Clavulanate RANDOLPH 16 ug/ml: Intermediate Klebsiella pneumoniae ESBL Ampicillin/Sulbactam RANDOLPH >=32 ug/ml: Resistant Klebsiella pneumoniae ESBL Piperacillin/Tazobactam RANDOLPH 16 ug/ml: Intermediate Klebsiella pneumoniae ESBL Cefazolin (Urine) RANDOLPH >=32 ug/ml: Resistant Klebsiella pneumoniae ESBL Cefoxitin RANDOLPH <=4 ug/ml: Susceptible Klebsiella pneumoniae ESBL Ceftazidime RANDOLPH 8 ug/ml: Intermediate Klebsiella pneumoniae ESBL Ceftriaxone RANDOLPH >=64 ug/ml: Resistant Klebsiella pneumoniae ESBL Cefepime RANDOLPH >=32 ug/ml: Resistant Klebsiella pneumoniae ESBL Meropenem RANDOLPH <=0.25 ug/ml: Susceptible Klebsiella pneumoniae ESBL Amikacin RANDOLPH 4 ug/ml: Susceptible Klebsiella pneumoniae ESBL Gentamicin RANDOLPH >=16 ug/ml: Resistant Klebsiella pneumoniae ESBL Ciprofloxacin RANDOLPH >=4 ug/ml: Resistant Klebsiella pneumoniae ESBL Levofloxacin RANDOLPH >=8 ug/ml: Resistant Klebsiella pneumoniae ESBL Nitrofurantoin RANDOLPH 64 ug/ml: Intermediate Klebsiella pneumoniae ESBL Trimethoprim/Sulfamethoxazo le RANDOLPH >=320 ug/ml: Resistant Providencia rettgeri Ampicillin/Sulbactam RANDOLPH >=32 ug/ml: Resistant Providencia rettgeri Piperacillin/Tazobactam RANDOLPH >=128 ug/ml: Resistant Providencia rettgeri Cefoxitin RANDOLPH <=4 ug/ml: Susceptible Providencia rettgeri Ceftazidime RANDOLPH >=32 ug/ml: Resistant Providencia rettgeri Ceftriaxone RANDOLPH 0.5 ug/ml: Susceptible Providencia rettgeri Cefepime RANDOLPH 1 ug/ml: Susceptible Providencia rettgeri Ciprofloxacin RANDOLPH <=0.06 ug/ml: Susceptible Providencia rettgeri Levofloxacin RANDOLPH 0.25 ug/ml: Susceptible Providencia rettgeri Nitrofurantoin RANDOLPH 64 ug/ml: Resistant Providencia rettgeri Trimethoprim/Sulfam ethoxazo le RANDOLPH <=20 ug/ml: Susceptible us Shu [facility] MICROBIOLOGY - GENERAL ORDERABLES Final Result [facility] ([facility]) [facility] [address] [place] [address], from Last 3 Months Additional Health Concerns Infection Onset Date Last 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 [place] [address] [facility] [place] [address] [facility] [place] [address] 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
--- OUTSIDE RECORDS SUMMARY | 2025-03-26 07:49 | XMS_ITS | Encounter Summary ---
Author Organization [facility] Address [address] [place], [place] [id number] Care Team Providers Care Adult Daycare Coordinator Name Role Phone Pcp, No Primary Care Provider Unavailabl e Encounter Details Date Type Department Care Team (Late st Contact Info) Description 07/22/2021 Scanned Document [facility] General Surgery [facility] [address] [place] [phone] Dorie Callahan APRN [facility] [place] [address] Social History Tobacco Use Types [...] on filedocumented in this encounter Care Teams Adult Daycare Coordinator Relationship Specialty Start Date End Date Pcp, No PCP - General General Medicine 04/10/21 documented as of this encounter
--- OUTSIDE RECORDS SUMMARY | 2025-03-26 07:49 | XMS_ITS | Patient Health Record ---
Author Organization [facility] Address [address] [facility] [address] [place] [address] Care Team Providers Care Metal Polisher Name Role Phone Aba Linares Primary Care Provider UnavailTone Tovar Unavailable [phone] Sudhakar Taveras Unavailable [phone] Ashley Jones Unavailable [phone] Solis Harrell Unavailable [phone] Allergies No Known Allergies Reason For Referral No Information Medications Medication SIG (Take, Route, Frequency, Duration) Notes Start Date End Date Status Senna 8.6 MG 2 tablets at bedtime as needed Orally Once a day Active Baclofen 0.05 MG/ML as directed Intrathecal 483.7 mcg/day Active Clobetasol Propionate 0.05 % 1 application Externally Twice a day As needed to ears Active Methenamine Hippurate 1 GM 1 tablet Oral ly Twice a day; Duration: 10 day(s) Active Melatonin 10 MG as directed Orally Active Vitamin C 500 MG 1 tablet Orally twic e a day; Duration: 30 day(s) Active Multivitamin - 1 tablet Orally Once a day; Duration: 30 day(s) Active Desitin 40 % as directed Externally As needed to asa area for barrier Active Bisacodyl 10 MG 1 tablet Orally Once a day; Duration: 30 days Active Valium 2 MG 1 tablet as needed Orally Once a day As needed For pain Active Docusate Sodium 100 MG 1 capsule Orally Once a day; Duration: 30 days If loose stools, take one every other day Active Hydrocortisone 0.5 % 1 application Externally daily As needed to hemorrhoids Active Nystatin 486382 UNIT/GM 1 application Externally Once a Day As needed To Groin Active Sodium Chloride 1 GM as directed Orally Three times a day Active Iron 325 (65 Fe) MG 1 tablet Orally daily Active Amiodarone HCl 100 MG 1 tablet Orally tw ice a day; Duration: 30 days Active Baclofen 5 MG 1 tablet as needed Orally 3 times a day; Duration: 30 days Active Trospium Chloride 20 MG 1 tablet at bedt [place] on an empty stomach Orally Twice a day Active Midodrine HCl 10 MG 1 tablet Orally; Duration: 30 days As needed Blood pressure less than 90 mm/hg systolic Active Keppra 1000 MG 1 tablet Orally celestina y; Duration: 30 days Active Problems Problem Type SNOMED Code ICD Code Onset Dates Problem Status W/U Status Risk Notes Problem Paraplegia (06755836) Paraplegia, unspecified (G82.20) Active confirmed Problem Essential hypertension (73857266) Essential (primary) hypertension (I10) Active confirmed Problem Pressure injury of sacral region of back stage III (disorder) (40742110675998) Pressure ulcer of sacral region, stage 3 (L89.153) Active confirmed Problem Pressure injury of right buttock stage II (disorder) (19127869738380) Pressure ulcer of right buttock, stage 2 (L89.312) Active confirmed Problem Pressure injury of right buttock stage III (disorder) (64981013871439) Pressure ulcer of right buttock, stage 3 (L89.313) Active confirmed Problem Pressure injury of left buttock stage III (disorder) (54847444306841) Pressure ulcer of left buttock, stage 3 (L89.323) Active confirmed Problem Neurogenic dysfunction of the urinary bladder (941662769) Neuromuscular dysfunction of bladder, unspecified (N31.9) Active confirmed Problem Dependence on wheelchair (228767202) Dependence on wheelchair (Z99.3) Active confirmed Problem Hyperlipidemia (88463889) Other hyperlipidemia (E78.49) Active confirmed Problem Chronic osteoarthritis (62111894) Chronic osteoarthritis (M19.90) Active confirmed Problem Chronic osteomyelitis (79303088) Chronic osteomyelitis (M86.60) Active confirmed Problem Pressure injury of sacral region of back stage IV (disorder) (42681431498986) Decubitus ulcer of sacral region, stage 4 (L89.154) Active confirmed Vital Signs Heart Rate 63 /min 03/19/2025 Temperature 98.6 degrees Fahrenheit 03/19/2025 Respiratory Rate 16 /min 03/19/2025 Oximetry 100 % 03/19/2025 Blood pressure diastolic 70 mm Hg 03/19/2025 Weight-kg 69.4 kg 03/19/2025 Height 68 in 03/19/2025 Blood pressure systolic 98 mm Hg 03/19/2025 Weight 153 lbs 03/19/2025 BMI 23.26 kg/m2 03/19/2025 Encounters Encounter Location Date Provider Diagnosis [address] [address] 04/10/2024 Jooyun Harrell Pressure ulcer of sacral region, stage 3 L89.153 ; Pressure ulcer of left buttock, stage 3 L89.323 ; Unspecified open wound of right elbow, subsequent encounter S51.001D ; Paraplegia, unspecified G82.20 ; Dependence on wheelchair Z99.3 ; Essential (primary) hypertension I10 ; Other hyperlipidemia E78.49 ; Neuromuscular dysfunction of bladder, unspecified N31.9 and Pressure ulcer of right buttock, stage 3 L89.313 [place] [address] [address] 04/16/2024 Jooyun Harrell Pressure ulcer of sacral region, stage 3 L89.153 ; Paraplegia, unspecified G82.20 ; Dependence on wheelchair Z99.3 ; Essential (primary) hypertension I10 ; Other hyperlipidemia E78.49 and Neuromuscular dysfunction of bladder, unspecified N31.[address] [address] 04/23/2024 Jooyun Harrell Paraplegia, unspecified G82.20 ; Pressure ulcer of sacral region, stage 3 L89.153 ; Dependence on wheelchair Z99.3 ; Essential (primary) hypertension I10 ; Other hyperlipidemia E78.49 and Neuromuscular dysfunction of bladder, unspecified N31.9 [place] [address] [address] 04/30/2024 Jooyun Harrell Pressure ulcer of sacral region, stage 3 L89.153 ; Decubitus ulcer of sacral region, stage 4 L89.154 ; Paraplegia, unspecified G82.20 ; Dependence on wheelchair Z99.3 ; Essential (primary) hypertension I10 ; Other hyperlipidemia E78.49 and Neuromuscular dysfunction of bladder, unspecified N31.[address] [address] 05/07/2024 Jooyun Harrell Pressure ulcer of sacral region, stage 3 L89.153 ; Decubitus ulcer of sacral region, stage 4 L89.154 ; Paraplegia, unspecified G82.20 ; Dependence on wheelchair Z99.3 ; Essential (primary) hypertension I10 ; Other hyperlipidemia E78.49 and Neuromuscular dysfunction of bladder, unspecified N31.[address] [address] 05/14/2024 Jooyun Harrell Pressure ulcer of sacral region, stage 3 L89.153 ; Decubitus ulcer of sacral region, stage 4 L89.154 ; Paraplegia, unspecified G82.20 ; Dependence on wheelchair Z99.3 ; Essential (primary) hypertension I10 ; Other hyperlipidemia E78.49 and Neuromuscular dysfunction of bladder, unspecified N31.[address] [address] 05/21/2024 Jooyun Harrell Pressure ulcer of sacral region, stage 3 L89.153 ; Decubitus ulcer of sacral region, stage 4 L89.154 ; Paraplegia, unspecified G82.20 ; Dependence on wheelchair Z99.3 ; Essential (primary) hypertension I10 ; Other hyperlipidemia E78.49 and Neuromuscular dysfunction of bladder, unspecified N31.[address] [address] 05/29/2024 Jooyun Harrell Pressure ulcer of sacral region, stage 3 L89.153 ; Decubitus ulcer of sacral region, stage 4 L89.154 ; Paraplegia, unspecified G82.20 ; Dependence on wheelchair Z99.3 ; Essential (primary) hypertension I10 ; Other hyperlipidemia E78.49 and Neuromuscular dysfunction of bladder, unspecified N31.[address] [address] 06/12/2024 Jooyun Harrell Pressure ulcer of sacral region, stage 3 L89.153 ; Decubitus ulcer of sacral region, stage 4 L89.154 ; Paraplegia, unspecified G82.20 ; Dependence on wheelchair Z99.3 ; Essential (primary) hypertension I10 ; Other hyperlipidemia E78.49 and Neuromuscular dysfunction of bladder, unspecified N31.9 [facility] [address] 07/03/2024 Anzhela Savonina Paraplegia, unspecified G82.20 ; Decubitus ulcer of sacral region, stage 4 L89.154 ; Dependence on wheelchair Z99.3 and Neuromuscular dysfunction of bladder, unspecified N31.9 [place] [address] 07/10/2024 Anzhela Savonina Paraplegia, unspecified G82.20 ; Decubitus ulcer of sacral region, stage 4 L89.154 ; Dependence on wheelchair Z99.3 ; Neuromuscular dysfunction of bladder, unspecified N31.9 and Local infection of skin and subcutaneous tissue L08.9 [place] [address] 07/17/2024 Anzhela Savonina Paraplegia, unspecified G82.20 ; Decubitus ulcer of sacral region, stage 4 L89.154 ; Dependence on wheelchair Z99.3 ; Neuromuscular dysfunction of bladder, unspecified N31.9 and Local infection of skin and subcutaneous tissue L08.9 [place] [address] 07/24/2024 Anzhela Savonina Paraplegia, unspecified G82.20 ; Decubitus ulcer of sacral region, stage 4 L89.154 ; Dependence on wheelchair Z99.3 and Neuromuscular dysfunction of bladder, unspecified N31.9 [place] [address] [address] 07/31/2024 Anzhela Savonina Paraplegia, unspecified G82.20 ; Decubitus ulcer of sacral region, stage 4 L89.154 ; Dependence on wheelchair Z99.3 and Neuromuscular dysfunction of bladder, unspecified N31.9 [facility] [address] 2024 Anzhela Savonina Paraplegia, unspecified G82.20 ; Decubitus ulcer of sacral region, stage 4 L89.154 ; Dependence on wheelchair Z99.3 and Neuromuscular dysfunction of bladder, unspecified N31.9 [place] [address] 08/14/2024 Anzhela Savonina Paraplegia, unspecified G82.20 ; Decubitus ulcer of sacral region, stage 4 L89.154 ; Dependence on wheelchair Z99.3 and Neuromuscular dysfunction of bladder, unspecified N31.9 [place] [address] 08/21/2024 Anzhela Savonina Paraplegia, unspecified G82.20 ; Decubitus ulcer of sacral region, stage 4 L89.154 ; Dependence on wheelchair Z99.3 and Neuromuscular dysfunction of bladder, unspecified N31.9 [place] [address] 08/28/2024 Anzhela Savonina Paraplegia, unspecified G82.20 ; Decubitus ulcer of sacral region, stage 4 L89.154 ; Dependence on wheelchair Z99.3 and Neuromuscular dysfunction of bladder, unspecified N31.9 [place] [address] 09/03/2024 Sudhakar Darcy Paraplegia, unspecified G82.20 ; Decubitus ulcer of sacral region, stage 4 L89.154 ; Dependence on wheelchair Z99.3 and Neuromuscular dysfunction of bladder, unspecified N31.9 [place] [address] 09/11/2024 Anzhela Savonina Paraplegia, unspecified G82.20 ; Decubitus ulcer of sacral region, stage 4 L89.154 ; Dependence on wheelchair Z99.3 and Neuromuscular dysfunction of bladder, unspecified N31.[address] 09/18/2024 Anzhela Savonina Paraplegia, unspecified G82.20 ; Decubitus ulcer of sacral region, stage 4 L89.154 ; Dependence on wheelchair Z99.3 ; Neuromuscular dysfunction of bladder, unspecified N31.9 and Hypotension I95.9 [facility] [address] 09/25/2024 Anzhela Savonina Paraplegia, unspecified G82.20 ; Decubitus ulcer of sacral region, stage 4 L89.154 ; Dependence on wheelchair Z99.3 ; Neuromuscular dysfunction of bladder, unspecified N31.9 and Hypotension I95.9 [facility] [address] 10/09/2024 Anzhela Savonina Paraplegia, unspecified G82.20 ; Decubitus ulcer of sacral region, stage 4 L89.154 ; Dependence on wheelchair Z99.3 ; Neuromuscular dysfunction of bladder, unspecified N31.9 and Hypotension I95.9 [facility] [address] 10/16/2024 Anzhela Savonina Paraplegia, unspecified G82.20 ; Decubitus ulcer of sacral region, stage 4 L89.154 ; Dependence on wheelchair Z99.3 ; Neuromuscular dysfunction of bladder, unspecified N31.9 and Hypotension I95.9 [facility] [address] 10/23/2024 Anzhela Savonina Paraplegia, unspecified G82.20 ; Decubitus ulcer of sacral region, stage 4 L89.154 ; Dependence on wheelchair Z99.3 ; Neuromuscular dysfunction of bladder, unspecified N31.9 and Hypotension I95.9 [facility] [address] 10/30/2024 Anzhela Savonina Diaper dermatitis L22 ; Decubitus ulcer of sacral region, stage 4 L89.154 ; Chronic osteoarthritis M19.90 ; Paraplegia, unspecified G82.20 ; Dependence on wheelchair Z99.3 ; Neuromuscular dysfunction of bladder, unspecified N31.9 and Hypotension I95.9 [facility] [address] 11/06/2024 Ashley Jones Diaper dermatitis L2 2 ; Chronic osteoarthritis M19.90 ; Decubitus ulcer of sacral region, stage 4 L89.154 ; Paraplegia, unspecified G82.20 ; Dependence on wheelchair Z99.3 ; Neuromuscular dysfunction of bladder, unspecified N31.9 ; Hypotension I95.9 and Osteomyelitis of sacrum M46.[address] [facility] [address] [address] 11/13/2024 Anzhela Savonina Diaper dermatitis L22 ; Decubitus ulcer of sacral region, stage 4 L89.154 ; Chronic osteoarthritis M19.90 ; Paraplegia, unspecified G82.20 ; Dependence on wheelchair Z99.3 ; Neuromuscular dysfunction of bladder, unspecified N31.9 and Hypotension I95.9 [facility] [address] [address] 11/19/2024 Anzhela Savonina Chronic osteomyelitis M86.60 ; Diaper dermatitis L22 ; Decubitus ulcer of sacral region, stage 4 L89.154 ; Paraplegia, unspecified G82.20 ; Dependence on wheelchair Z99.3 and Neuromuscular dysfunction of bladder, unspecified N31.[address] [facility] [address] [address] 11/26/2024 Anzhela Savonina Chronic osteomyelitis M86.60 ; Diaper dermatitis L22 ; Decubitus ulcer of sacral region, stage 4 L89.154 ; Paraplegia, unspecified G82.20 ; Dependence on wheelchair Z99.3 and Neuromuscular dysfunction of bladder, unspecified N31.[address] [facility] [address] [address] 12/04/2024 Anzhela Savonina Chronic osteomyelitis M86.60 ; Diaper dermatitis L22 ; Decubitus ulcer of sacral region, stage 4 L89.154 ; Paraplegia, unspecified G82.20 ; Dependence on wheelchair Z99.3 and Neuromuscular dysfunction of bladder, unspecified N31.[address] [facility] [address] [address] 12/18/2024 Anzhela Savonina Chronic osteomyelitis M86.60 ; Diaper dermatitis L22 ; Decubitus ulcer of sacral region, stage 4 L89.154 ; Paraplegia, unspecified G82.20 ; Dependence on wheelchair Z99.3 and Neuromuscular dysfunction of bladder, unspecified N31.[address] [facility] [address] 12/25/2024 Anzhela Savonina Chronic osteomyelitis M86.60 ; Diaper dermatitis L22 ; Decubitus ulcer of sacral region, stage 4 L89.154 ; Paraplegia, unspecified G82.20 ; Dependence on wheelchair Z99.3 and Neuromuscular dysfunction of bladder, unspecified N31.[address] [facility] [address] 01/02/2025 Anzhela Savonina Chronic osteomyelitis M86.60 ; Diaper dermatitis L22 ; Decubitus ulcer of sacral region, stage 4 L89.154 ; Paraplegia, unspecified G82.20 ; Dependence on wheelchair Z99.3 and Neuromuscular dysfunction of bladder, unspecified N31.[address] [facility] [address] 01/07/2025 Anzhela Savonina Chronic osteomyelitis M86.60 ; Diaper dermatitis L22 ; Decubitus ulcer of sacral region, stage 4 L89.154 ; Paraplegia, unspecified G82.20 ; Dependence on wheelchair Z99.3 and Neuromuscular dysfunction of bladder, unspecified N31.[address] [facility] [address] 01/22/2025 Anzhela Savonina Chronic osteomyelitis M86.60 ; Diaper dermatitis L22 ; Decubitus ulcer of sacral region, stage 4 L89.154 ; Paraplegia, unspecified G82.20 ; Dependence on wheelchair Z99.3 and Neuromuscular dysfunction of bladder, unspecified N31.[address] [facility] [address] 01/29/2025 Anzhela Savonina Chronic osteomyelitis M86.60 ; Diaper dermatitis L22 ; Decubitus ulcer of sacral region, stage 4 L89.154 ; Paraplegia, unspecified G82.20 ; Dependence on wheelchair Z99.3 and Neuromuscular dysfunction of bladder, unspecified N31.9 [facility] [address] [address] 02/05/2025 Anzhela Savonina Chronic osteomyelitis M86.60 ; Diaper dermatitis L22 ; Decubitus ulcer of sacral region, stage 4 L89.154 ; Paraplegia, unspecified G82.20 ; Dependence on wheelchair Z99.3 and Neuromuscular dysfunction of bladder, unspecified N31.9 [facility] [address] 02/12/2025 Anzhela Savonina Chronic osteomyelitis M86.60 ; Diaper dermatitis L22 ; Decubitus ulcer of sacral region, stage 4 L89.154 ; Paraplegia, unspecified G82.20 ; Dependence on wheelchair Z99.3 and Neuromuscular dysfunction of bladder, unspecified N31.9 [facility] [address] [address] 02/19/2025 Anzhela Savonina Chronic osteomyelitis M86.60 ; Diaper dermatitis L22 ; Decubitus ulcer of sacral region, stage 4 L89.154 ; Paraplegia, unspecified G82.20 ; Dependence on wheelchair Z99.3 and Neuromuscular dysfunction of bladder, unspecified N31.9 [facility] [address] [address] 02/26/2025 Anzhela Savonina Chronic osteomyelitis M86.60 ; Diaper dermatitis L22 ; Decubitus ulcer of sacral region, stage 4 L89.154 ; Paraplegia, unspecified G82.20 ; Dependence on wheelchair Z99.3 and Neuromuscular dysfunction of bladder, unspecified N31.9 [facility] [address] [address] 03/05/2025 Anzhela Savonina Chronic osteomyelitis M86.60 ; Diaper dermatitis L22 ; Decubitus ulcer of sacral region, stage 4 L89.154 ; Paraplegia, unspecified G82.20 ; Dependence on wheelchair Z99.3 and Neuromuscular dysfunction of bladder, unspecified N31.9 [facility] [address] [address] 03/12/2025 Anzhela Savonina Chronic osteomyelitis M86.60 ; Diaper dermatitis L22 ; Decubitus ulcer of sacral region, stage 4 L89.154 ; Paraplegia, unspecified G82.20 ; Dependence on wheelchair Z99.3 and Neuromuscular dysfunction of bladder, unspecified N31.9 [facility] [address] [facility] [address] [place] [address] 03/19/2025 Anzhela Jevononina Chronic osteomyelitis M86.60 ; Diaper dermatitis L22 ; Decubitus ulcer of sacral region, stage 4 L89.154 ; Paraplegia, unspecified G82.20 ; Dependence on wheelchair Z99.3 and Neuromuscular dysfunction of bladder, unspecified N31.[address] [address] 04/11/2024 Jooyun Harrell [facility] [address] [address] 04/30/2024 Jooyun Harrell [facility] [address] [address] 05/20/2024 Jooyun Harrell [facility] [address] [address] 05/29/2024 Jooyun Harrell [address] [address] 05/29/2024 Jooyun Harrell [address] [address] 06/04/2024 Jooyun Harrell [facility] [address] [address] 06/05/2024 Jooyun Harrell [address] [address] 06/10/2024 Jooyun Harrell [facility] [address] [address] 06/13/2024 Jooyun Harrell [facility] [address] [address] 06/14/2024 Jooyun Harrell [facility] [address] [address] 06/14/2024 Jooyun Harrell [facility] [address] [address] 06/14/2024 Jooyun Harrell [facility] [address] [address] 06/14/2024 Jooyun Harrell [facility] [address] [place] [address] 06/17/2024 Jooyun Harrell [facility] [address] [place] [address] 06/17/2024 Jooyun Harrell [facility] [address] [address] 06/17/2024 Jooyun Harrell [facility] [address] [address] 06/17/2024 Jooyun Harrell [facility] [address] [place] [address] 07/03/2024 Anzhela Savonina [facility] [address] [place] [address] 07/08/2024 Anzhela Savonina [facility] [address] [place] [address] 07/10/2024 Anzhela Savonina [facility] [address] [address] 07/10/2024 Anzhela Savonina [facility] [address] [address] 07/16/2024 Anzhela Savonina [facility] [address] [address] 08/12/2024 Anzhela Savonina [facility] [address] [place] [address] 08/22/2024 Anzhela Savonina [facility] [address] [address] 08/30/2024 Anzhela Savonina [facility] [address] [address] 09/27/2024 Anzhela Savonina [facility] [address] [place] [address] 10/01/2024 Anzhela Savonina [facility] [address] [place] [address] 10/09/2024 Anzhela Savonina [facility] [address] [address] 10/16/2024 Anzhela Savonina [facility] [address] [place] [address] 10/16/2024 Anzhela Savonina [facility] [address] [place] [address] 10/24/2024 Anzhela Savonina [facility] [address] [place] [address] 10/30/2024 Anzhela Savonina [facility] [address] [place] [address] 11/06/2024 Anzhela Savonina [facility] [address] [place] [address] 11/06/2024 Anzhela Savonina [facility] [address] [place] [address] 11/06/2024 Anzhela Savonina [facility] [address] [place] [address] 11/25/2024 Anzhela Savonina [facility] [address] [place] [address] 11/26/2024 Anzhela Savonina [facility] [address] [place] [address] 01/02/2025 Anzhela Savonina [facility] [address] [place] [address] 01/02/2025 Anzhela Savonina [facility] [address] [place] [address] 01/07/2025 Anzhela Savonina [facility] [address] [place] [address] 01/09/2025 Anzclovera Savonina [facility] [address] [place] [address] 01/13/2025 Anzhela Savonina [facility] [address] [place] [address] 01/28/2025 Anzhela Jevononina [facility] [address] [place] [address] 02/06/2025 Anzhela Savonina [facility] [address] [place] [address] 02/21/2025 Anzclovera Jevononina [facility] [address] [place] [address] 03/05/2025 Anzclovera Jevononina [facility] [address] [place] [address] 03/14/2025 Liatzclovera Jevononina [facility] [address] [place] [address] 03/19/2025 [facility] Assessments Encounter Date Diagnosis (ICD Code) Assessment Notes Treatment Notes Treatment Clinical Notes Section Notes 04/10/2024 Pressure ulcer of sacral region, stage 3 (ICD-10 - L89.153) On assessment today, Eran noted to be afebrile and other VS were within normal limits. The patient denies pain or discomfort related to wound . We removed dressings, and examined the wound site. The coccyx wound measuring larger and deeper s/t I& D done, and the wound bed has small amount of slough with granulation noted. The periwound area slightly macerated and excoriated. After examination, I discussed the indication of the debridement and he is agreeable. I then performed debridement to remove devitalized tissues as outlined. He tolerated procedure well..The wound site were then cleansed with saline, HFB gently packed to the wound bed, and zinc to periwound area. The site were then covered with a foam dressing. Patient and his caregive were educated to protect wound site, continue to reposition and off load. Pt's nurse will perform the dressing changes every other day or as needed. S/S of infection reviewed and when to go to ED.Patient will have FU in one week. Carroll Harrell [facility], examined, evaluated and treated the patient. Dr. Linette Cesar was available for any question or concerns that I may have had. 04/16/2024 Paraplegia, unspecified (ICD-10 - G82.20) 04/16/2024 Pressure ulcer of sacral region, stage 3 (ICD-10 - L89.153) On assessment today, Eran noted to be afebrile and other VS were within normal limits. The patient denies pain or discomfort related to wound . We removed dressings, and examined the wound site. The coccyx wound is improving, measuring smaller with less undernining, and the wound bed has small amount of slough with granulation noted. The periwound area slightly macerated. After examination, I discussed the indication of the debridement and he is agreeable. I then performed debridement to remove devitalized tissues as outlined. He tolerated procedure well..The wound site were then cleansed with saline, HFB gently packed to the wound bed, and zinc to periwound area. The site were then covered with a foam dressing. Patient and his caregive were educated to protect wound site, continue to reposition and off load. Pt's nurse will perform the dressing changes every other day or PRN. S/S of infection reviewed and when to go to ED.Patient will have FU in one week. Carroll Harrell [facility], examined, evaluated and treated the patient. Dr. Linette Cesar was available for any question or concerns that I may have had. 04/23/2024 Paraplegia, unspecified (ICD-10 - G82.20) 04/30/2024 Pressure ulcer of sacral region, stage 3 (ICD-10 - L89.153) 04/30/2024 Decubitus ulcer of sacral region, stage 4 (ICD-10 - L89.154) On assessment today, Eran noted to be afebrile and other VS were within normal limits. The patient denies pain or discomfort related to wound . We removed dressings, and examined the wound site. The coccyx wound deteriorating, length and width is smller and less undermining, from 11 to 5, and deepest 2.8 at 2 oclock. However, the wound is deeper and now bone exposured. The wound bed has small amount of slough with granulation noted. The periwound area has less maceration. After examination, I discussed the indication of the debridement and he is agreeable. I then performed debridement to remove devitalized tissues as outlined. He tolerated procedure well..The wound site were then cleansed with saline, applied adaptic, HFB gently packed to the wound bed, and zinc to periwound area. The site were then covered with a foam dressing. He currently is on IV antibiotic to treat osteomyelitis. However, Eran's wound is deteriorating with bone exposure. We will try wound vac at the next visit. Advised his residential case manager to contact ID for re-evaluation for osteomyelitis. Patient and his caregive were educated to protect wound site, continue to reposition and off load. Pt's nurse will perform the dressing changes every other day or PRN. Advised patient's personal care aids to minimize shearing forces on the skin wehn lifting or transferring patients to prevent undermining. S/S of infection reviewed and when to go to ED.Patient will have FU in one week. I Solis Harrell [facility] examined, evaluated and treated the patient. Dr. Linette Cesar was available for any question or concerns that I may have had. 05/07/2024 Pressure ulcer of sacral region, stage 3 (ICD-10 - L89.153) 05/14/2024 Pressure ulcer of sacral region, stage 3 (ICD-10 - L89.153) 05/21/2024 Pressure ulcer of sacral region, stage 3 (ICD-10 - L89.153) 05/29/2024 Pressure ulcer of sacral region, stage 3 (ICD-10 - L89.153) 06/12/2024 Pressure ulcer of sacral region, stage 3 (ICD-10 - L89.153) 07/03/2024 Paraplegia, unspecified (ICD-10 - G82.20) 07/10/2024 Paraplegia, unspecified (ICD-10 - G82.20) 07/17/2024 Paraplegia, unspecified (ICD-10 - G82.20) 07/24/2024 Paraplegia, unspecified (ICD-10 - G82.20) 07/31/2024 Paraplegia, unspecified (ICD-10 - G82.20) 2024 Paraplegia, unspecified (ICD-10 - G82.20) 08/14/2024 Paraplegia, unspecified (ICD-10 - G82.20) 08/21/2024 Paraplegia, unspecified (ICD-10 - G82.20) 08/28/2024 Paraplegia, unspecified (ICD-10 - G82.20) 09/03/2024 Paraplegia, unspecified (ICD-10 - G82.20) 09/11/2024 Paraplegia, unspecified (ICD-10 - G82.20) 09/18/2024 Paraplegia, unspecified (ICD-10 - G82.20) 09/25/2024 Paraplegia, unspecified (ICD-10 - G82.20) 10/09/2024 Paraplegia, unspecified (ICD-10 - G82.20) 10/16/2024 Paraplegia, unspecified (ICD-10 - G82.20) 10/23/2024 Paraplegia, unspecified (ICD-10 - G82.20) 10/30/2024 Diaper dermatitis (ICD-10 - L22) 11/06/2024 Diaper dermatitis (ICD-10 - L22) 11/13/2024 Diaper dermatitis (ICD-10 - L22) 11/19/2024 Chronic osteomyelitis (ICD-10 - M86.60) 11/26/2024 Chronic osteomyelitis (ICD-10 - M86.60) 12/04/2024 Chronic osteomyelitis (ICD-10 - M86.60) 12/18/2024 Chronic osteomyelitis (ICD-10 - M86.60) 12/25/2024 Chronic osteomyelitis (ICD-10 - M86.60) 01/02/2025 Chronic osteomyelitis (ICD-10 - M86.60) 01/07/2025 Chronic osteomyelitis (ICD-10 - M86.60) 01/22/2025 Chronic osteomyelitis (ICD-10 - M86.60) 01/29/2025 Chronic osteomyelitis (ICD-10 - M86.60) 02/05/2025 Chronic osteomyelitis (ICD-10 - M86.60) 02/12/2025 Chronic osteomyelitis (ICD-10 - M86.60) 02/19/2025 Chronic osteomyelitis (ICD-10 - M86.60) 02/26/2025 Chronic osteomyelitis (ICD-10 - M86.60) 03/05/2025 Chronic osteomyelitis (ICD-10 - M86.60) 03/12/2025 Chronic osteomyelitis (ICD-10 - M86.60) 03/19/2025 Chronic osteomyelitis (ICD-10 - M86.60) 03/12/2025 Diaper dermatitis (ICD-10 - L22) 03/19/2025 Diaper dermatitis (ICD-10 - L22) 03/05/2025 Diaper dermatitis (ICD-10 - L22) 02/26/2025 Diaper dermatitis (ICD-10 - L22) 02/19/2025 Diaper dermatitis (ICD-10 - L22) 02/12/2025 Diaper dermatitis (ICD-10 - L22) 02/05/2025 Diaper dermatitis (ICD-10 - L22) 01/29/2025 Diaper dermatitis (ICD-10 - L22) 01/07/2025 Diaper dermatitis (ICD-10 - L22) 01/22/2025 Diaper dermatitis (ICD-10 - L22) 01/02/2025 Diaper dermatitis (ICD-10 - L22) 12/25/2024 Diaper dermatitis (ICD-10 - L22) 12/18/2024 Diaper dermatitis (ICD-10 - L22) 12/04/2024 Diaper dermatitis (ICD-10 - L22) 11/19/2024 Decubitus ulcer of sacral region, stage 4 (ICD-10 - L89.154) On exam, afebrile, VSS, he is conversant, has no complaints. I removed the dressing and examined the wound located on the sacrum. Ulcer is measuring smaller, less depth and undermining has improved. The wound bed has granulated tissue with overlying slough and areas of hypergranulation. There is no odor, no purulence. With patients permission, I performed debridement of the ulcer as outlined above and used silver nitrate to cauterize the hypergranulated tissue. I cleaned the ulcer with Vashe and Aquacel was applied to the wound bed, Miconazole and zinc applied to periwound secured with DSD. He tolerated the procedure well. Eran presents today for a follow-up visit for treatment of a stage 4 pressure ulcer to the sacrum in the setting of paraplegia. His ulcer improved this week. We made referral for surgical opinion, he is pending appointment. We will follow up with his today. He does not have acute signs of wound infection. Recommend to clean the ulcer for 5 minutes with Vashe, rinse, apply Aquacel to the wound bed, zinc to periwound, miconazole to the rash daily. Encouraged pressure relief, repositioning Q hour & PRN along with appropriate dietary and protein supplementation to aid in wound healing. Eran and are agreeable to plan. Plan also was discussed with the ULTRASOUND TECH in the room. He will return in 1 week for a follow-up visit. I Tone FORRESTER, examined, evaluated and treated the patient. Dr. Linette Cesar was available for any question or concerns that I may have had. 11/26/2024 Diaper dermatitis (ICD-10 - L22) 11/13/2024 Decubitus ulcer of sacral region, stage 4 (ICD-10 - L89.154) On exam, afebrile, VSS, he is conversant, has no complaints, non-ill appearing, denies dizziness, SOB, PRYOR, or chest pain. I removed the dressing and examined the wound located on the sacrum. Ulcer is measuring smaller, less depth and undermining has improved. The surrounding rash has improved, faintly erythemic. The wound bed has granulated tissue with overlying slough and areas of hypergranulation. There is no odor, no purulence. With patients permission, I performed debridement of the ulcer as outlined above. I cleaned the ulcer with Vashe and Aquacel was applied to the wound bed, Miconazole and zinc applied to periwound secured with DSD. He tolerated the procedure well. Eran presents today for a follow-up visit for treatment of a stage 4 pressure ulcer to the sacrum in the setting of paraplegia. His ulcer improved this week. I reviewed the results of his CT scan revealing chronic osteomyelitis. He was previously treated with 6 week course of Ertapenem. He does not have acute signs of wound infection. We had made a referral for a surgical consult, he is pending an appointment. Recommend to clean the ulcer for 5 minutes with Vashe, rinse, apply Aquacel to the wound bed, zinc to periwound, miconazole to the rash daily. Encouraged pressure relief, repositioning Q hour & PRN along with appropriate dietary and protein supplementation to aid in wound healing. Eran and are agreeable to plan. Plan also was discussed with the ULTRASOUND TECH in the room. He will return in 1 week for a follow-up visit. I Tone FORRESTER, examined, evaluated and treated the patient. Dr. Linette Cesar was available for any question or concerns that I may have had. 11/19/2024 Diaper dermatitis (ICD-10 - L22) 10/30/2024 Decubitus ulcer of sacral region, stage 4 (ICD-10 - L89.154) On exam, afebrile, VSS, he is conversant, has no complaints, non-ill appearing, denies dizziness, SOB, PRYOR, or chest pain. I removed the dressing and examined the wound located on the sacrum. Ulcer is measuring larger with increased depth. There is erythemic scaly rash around the sacral and macerated skin.There is a deeper pocket within the wound bed that is close to bone however there does appear to be a thin layer to tissue over the bone. The wound bed has granulated tissue with overlying slough and areas of hypergranulation. There is blanchable erythema around the wound. There is no odor, no purulence. With patients permission, I performed debridement of the ulcer as outlined above. I cleaned the ulcer with Vashe and Aquacel was applied to the wound bed, Miconazole and zinc applied to periwound secured with DSD. He tolerated the procedure well. Eran presents today for a follow-up visit for treatment of a stage 4 pressure ulcer to the sacrum in the setting of paraplegia. His ulcer is measuring larger and deeper, he was hospitalized last week and may have been on his buttocks more. Unclear treatment of the wound during his hospitalization. I reviewed the results of his CT scan revealing chronic osteomyelitis. He was previously treated with 6 week course of Ertapenem. He does not have acute signs of wound infection and is currently taking Bactrim for UTI. I again offered a surgical consult evaluation to possible have a surgical debridement with removal of infected bone. Eran and are agreeable, we will make referral. I reviewed discharge summary from his hospitalization. He will have a follow up with urology on 11/07 to discuss removal of stone and nephrostomy tube. Recommendation to clean the ulcer for 5 minutes with Vashe, rinse, apply Aquacel to the wound bed, zinc to periwound, miconazole to the rash daily. Encouraged pressure relief, repositioning Q hour & PRN along with appropriate dietary and protein supplementation to aid in wound healing. I again discussed nutrition with him and recommended different foods high in protein. Eran and are agreeable to plan. Plan also was discussed with the ULTRASOUND TECH in the room. He will return in 1 week for a follow-up visit. I spent 30 minutes of direct and indirect care of this patient reviewing records, gathering H&P, evaluation, formulating plan, education and documentation. I Tone MICHAEL-Milady, examined, evaluated and treated the patient. Dr. Linette Cesar was available for any question or concerns that I may have had. 11/06/2024 Chronic osteoarthritis (ICD-10 - M19.90) 10/30/2024 Chronic osteoarthritis (ICD-10 - M19.90) 10/23/2024 Decubitus ulcer of sacral region, stage 4 (ICD-10 - L89.154) On exam, afebrile, VSS, he is conversant, has no complaints, non-ill appearing, denies dizziness, SOB, PRYOR, or chest pain. I removed the dressing and examined the wound located on the sacrum. Ulcer is approximately the same. There is a deeper pocket within the wound bed that is close to bone however there does appear to be a thin layer to tissue over the bone. The wound bed has granulated tissue with overlying slough and areas of hypergranulation. There is blanchable erythema around the wound. There is no odor, no purulence. With patients permission, I performed debridement of the ulcer as outlined above and used silver nitrate to the epibole. I cleaned the ulcer with Vashe and Purocol was applied to the wound bed, Miconazole and zinc applied to periwound secured with DSD. He tolerated the procedure well. Eran presents today for a follow-up visit for treatment of a stage 4 pressure ulcer to the sacrum in the setting of paraplegia. His ulcer stable, there does not appear to be signs of acute infection. He is pending CT scan results, will follow up. He completed the Bactrim. Recommendation to clean the ulcer for 5 minutes with Vashe, rinse, apply Purocol to the wound bed, zinc to periwound, miconazole to the rash daily. If CT scan is negative, I would like to trial a wound vac. Encouraged pressure relief, repositioning Q hour & PRN along with appropriate dietary and protein supplementation to aid in wound healing. I again discussed nutrition with him and recommended different foods high in protein. He will return in 1 week for a follow-up visit. I Tone FORRESTER, examined, evaluated and treated the patient. Dr. Linette Cesar was available for any question or concerns that I may have had. 10/09/2024 Decubitus ulcer of sacral region, stage 4 (ICD-10 - L89.154) On exam, afebrile,VSS, he is conversant, has no complaints, non-ill appearing, denies dizziness, SOB, PRYOR, or chest pain. I removed the dressing and examined the wound located on the sacrum. Ulcer is measuring larger with increased depth in the tunnel. There is a deeper pocket within the wound bed that is close to bone however there does appear to be a thin layer to tissue over the bone. The wound bed has granulated tissue with overlying slough and areas of hypergranulation. There is blanchable erythema around the wound. There is no odor, no purulence. With patients permission, I performed debridement of the ulcer as outlined above, cleaned the ulcer with saline and cleaned with Vashe and Aquacel AG was applied to the wound bed, Miconazole and zinc applied to periwound secured with DSD. He tolerated the procedure well. Eran presents today for a follow-up visit for treatment of a stage 4 pressure ulcer to the sacrum in the setting of paraplegia. His ulcer is larger and has increased depth within the wound bed today. There does not appear to be signs of acute infection. I will order a CT scan to rule out osteomyelitis. He will continue with Bactrim for the full course. Contineu to clean the ulcer with Vashe soak for 15 minutes with dressing change, apply Aquacel AG to the wound bed, continue with Miconazole and zinc to periwound to be changed daily. If CT scan is negative, I would like to trial a wound vac. I discussed this with Eran and his and residential case manager Consuelo. Encourage pressure relief, repositioning Q hour & PRN along with appropriate dietary and protein supplementation to aid in wound healing. I again discussed nutrition with him and recommended different foods high in protein. I again offered a surgical consult however patient declines at this time. Patient and are agreeable. He will return in 1 week for a follow-up visit. I spent 35 minutes of direct and indirect care of this patient discussing and coordinating above plan with patient, and residential case manager Consuelo. I Tone FORRESTER, examined, evaluated and treated the patient. Dr. Linette Cesar was available for any question or concerns that I may have had. 10/16/2024 Decubitus ulcer of sacral region, stage 4 (ICD-10 - L89.154) On exam, afebrile, VSS, he is conversant, has no complaints, non-ill appearing, denies dizziness, SOB, PRYOR, or chest pain. I removed the dressing and examined the wound located on the sacrum. Ulcer is measuring smaller and depth has lessened. There is a deeper pocket within the wound bed that is close to bone however there does appear to be a thin layer to tissue over the bone. The wound bed has granulated tissue with overlying slough and areas of hypergranulation. There is blanchable erythema around the wound. There is no odor, no purulence. With patients permission, I performed debridement of the ulcer as outlined above and used silver nitrate to the epibole. I cleaned the ulcer with Vashe and Purocol was applied to the wound bed, Miconazole and zinc applied to periwound secured with DSD. He tolerated the procedure well. Eran presents today for a follow-up visit for treatment of a stage 4 pressure ulcer to the sacrum in the setting of paraplegia. His ulcer improved this week however it is close to bone. There does not appear to be signs of acute infection. I ordered a CT scan to rule out osteomyelitis, he is scheduled for the CT scan tomorrow. He completed the Bactrim. Recommendation to clean the ulcer for 5 minutes with Vashe, rinse, apply Purocol to the wound bed, zinc to periwound, miconazole to the rash daily. If CT scan is negative, I would like to trial a wound vac. Encouraged pressure relief, repositioning Q hour & PRN along with appropriate dietary and protein supplementation to aid in wound healing. I again discussed nutrition with him and recommended different foods high in protein. He will return in 1 week for a follow-up visit. I Tone FORRESTER, examined, evaluated and treated the patient. Dr. Linette Cesar was available for any question or concerns that I may have had. 09/18/2024 Decubitus ulcer of sacral region, stage 4 (ICD-10 - L89.154) On exam, afebrile, BP 70/48, patient normally hypotensive, he is conversant, has no complaints, non-ill appearing, denies dizziness, SOB, PRYOR, or chest pain. I removed the dressing and examined the wound located on the sacrum. Ulcer is measuring smaller, however there is a new deeper area within the wound bed with depth of 2.2cm, close to bone, however I not able to palpate bone. The wound bed has granulated tissue with overlying slough and areas of hypergranulation. There is blanchable erythema around the wound. There is no odor, no purulence. With patients permission, I performed debridement of the ulcer as outlined above and used silver nitrate to cauterizes hypergranulation. I cleaned with Vashe and Aquacel AG was applied to the wound bed, Miconazole and zinc applied to periwound secured with DSD. He tolerated the procedure well. Eran presents today for a follow-up visit for treatment of a stage 4 pressure ulcer to the sacrum in the setting of paraplegia. He is hypotensive on arrival, EMT noted a BP of 70/46 when they initially picked him. He is asymptomatic today. I advised him to recheck his BP when he gets home and advised to take the Midodrine if it remains low. Continue with Vashe soak for 15 minutes with dressing change, applying Aquacel AG to the wound bed, continue with Miconazole and zinc to periwound to be changed daily. Encourage pressure relief, repositioning Q2 hours & PRN along with appropriate dietary and protein supplementation to aid in wound healing. I have previously offered a surgical consult however patient declines at this time. Patient and are agreeable. He will return in 1 week for a follow-up visit. I discussed the above plan with his and is agreeable. I Tone FORRESTER, examined, evaluated and treated the patient. Dr. S. Waien was available for any question or concerns that I may have had. 09/25/2024 Decubitus ulcer of sacral region, stage 4 (ICD-10 - L89.154) On exam, afebrile,VSS, he is conversant, has no complaints, non-ill appearing, denies dizziness, SOB, PRYOR, or chest pain. I removed the dressing and examined the wound located on the sacrum. Ulcer is measuring larger with increased depth in the tunnel. There is no bone exposure today. The wound bed has granulated tissue with overlying slough and areas of hypergranulation. There is blanchable erythema around the wound. There is no odor, no purulence. With patients permission, I performed debridement of the ulcer as outlined above, cleaned the ulcer with saline and obtained a wound culture. I cleaned with Vashe and Aquacel AG was applied to the wound bed, Miconazole and zinc applied to periwound secured with DSD. He tolerated the procedure well. Eran presents today for a follow-up visit for treatment of a stage 4 pressure ulcer to the sacrum in the setting of paraplegia. His ulcer is larger today. I obtained a wound culture to ensure there is no infection. Clean the ulcer with Vashe soak for 15 minutes with dressing change, apply Aquacel AG to the wound bed, continue with Miconazole and zinc to periwound to be changed daily. I would like to trial a wound vac as the wound is getting deeper. I discussed this with Eran and his and they requested that I contact his residential case manager Consuelo to discuss. Encourage pressure relief, repositioning Q hour & PRN along with appropriate dietary and protein supplementation to aid in wound healing. I again discussed nutrition with him and recommended different foods high in protein. I have previously offered a surgical consult however patient declines at this time. Patient and are agreeable. He will return in 1 week for a follow-up visit. I discussed the above plan with his and is agreeable. I Tone FORRESTER, examined, evaluated and treated the patient. Dr. Linette Cesar was available for any question or concerns that I may have had. 09/18/2024 Dependence on wheelchair (ICD-10 - Z99.3) 09/11/2024 Decubitus ulcer of sacral region, stage 4 (ICD-10 - L89.154) On exam, afebrile, conversant, has no complaints, non-ill appearing, denies dizziness, or chest pain. I removed the dressing and examined the wound located on the sacrum. Ulcer is measuring approximately the same, stable, undermining is present however less than visit. The wound bed has granulated tissue with overlying slough and areas of hypergranulation. There is blanchable erythema around the wound. There is no odor, no purulence. With patients permission, I performed debridement of the ulcer as outlined above and used silver nitrate to cauterizes hypergranulation. I cleaned with Vashe and Aquacel AG was applied to the wound bed, Miconazole and zinc applied to periwound secured with DSD. He tolerated the procedure well. Eran presents today for a follow-up visit for treatment of a stage 4 pressure ulcer to the sacrum in the setting of paraplegia. Continue with Vashe soak for 15 minutes with dressing change, applying Aquacel AG to the wound bed, continue with Miconazole and zinc to periwound to be changed daily. Encourage pressure relief, repositioning Q2 hours & PRN along with appropriate dietary and protein supplementation to aid in wound healing. I have previously offered a surgical consult however patient declines at this time. Patient and are agreeable. He will return in 1 week for a follow-up visit. I discussed the above plan with his . I Tone FORRESTER, examined, evaluated and treated the patient. Dr. Linette Cesar was available for any question or concerns that I may have had. 09/03/2024 Decubitus ulcer of sacral region, stage 4 (ICD-10 - L89.154) On exam, Eran is afebrile and all other VSS. We removed his dressing and I examined the wound with no over s/s of underlying infection noted at today's visit. His sacral wound is stable at today's visit based on assessment and measurements. The wound base has sloughed with a tunnel at 1 o'clock with max depth of 3.5cm. The periwound is noted with a thick rolled edge. At 11 o'clock there is a DTI noted to outer periwound. Nursing cleansed with Vashe and Aquacel AG was applied to the wound bed, Miconazole and zinc applied to periwound secured with DSD. Silver nitrated to epibole. He tolerated the procedure well. Continue with pressure relief with frequent repositioning and off loading, ROHO while in WC and special mattress while in bed consider a RD for nutrition review to aid with wound healing as well I discussed the above plan with his , ULTRASOUND TECH Carroll Taveras, MSN, PICK UP OPERATOR, [employer], examined, evaluated and treated the patient. Dr. Linette Cesar was available for any question or concerns that I may have had. 08/28/2024 Decubitus ulcer of sacral region, stage 4 (ICD-10 - L89.154) On exam, vss, afebrile, conversant, has no complaints, non-ill appearing, denies dizziness, or chest pain. I removed the dressing and examined the wound located on the sacrum. Ulcer is measuring smaller and tunnel is less deep. The wound bed has granulated tissue with overlying slough and areas of hypergranulation. There is blanchable erythema around the wound. Wound bed contains slough, no odor, no purulence. With patients permission, I performed debridement of the ulcer as outlined above and used silver nitrate to cauterizes hypergranulation. I cleaned with Vashe and Aquacel AG was applied to the wound bed, Miconazole and zinc applied to periwound secured with DSD. He tolerated the procedure well. Eran presents today for a follow-up visit for treatment of a stage 4 pressure ulcer to the sacrum in the setting of paraplegia. Ulcer is stable today, measuring smaller, no signs of acute infection. Continue with Vashe soak for 15 minutes with dressing change, applying Aquacel AG to the wound bed, continue with Miconazole and zinc to periwound to be changed daily. Encourage pressure relief, repositioning Q2 hours & PRN along with appropriate dietary and protein supplementation to aid in wound healing. I have previously offered a surgical consult however patient declines at this time. Patient and are agreeable. He will return in 1 week for a follow-up visit. I discussed the above plan with his , ULTRASOUND TECH and residential case manager. Carroll Cuevas [employer], examined, evaluated and treated the patient. Dr. Linette Cesar was available for any question or concerns that I may have had. 08/21/2024 Decubitus ulcer of sacral region, stage 4 (ICD-10 - L89.154) On exam, vss, afebrile, conversant, has no complaints, non-ill appearing, denies dizziness, or chest pain. I removed the dressing and examined the wound located on the sacrum. Ulcer is measuring larger with increase in depth of the tunnel at 1:00. There is a deeper purple discoloration within the wound bed today and hypergranulated tissue. There is blanchable erythema around the wound. Wound bed contains slough, no odor, no purulence. With patients permission, I performed debridement of the ulcer as outlined above, cleaned with Vashe and Aquacel AG was applied to the wound bed, Miconazole and zinc applied to periwound secured with DSD. He tolerated the procedure well. Eran presents today for a follow-up visit for treatment of a stage 4 pressure ulcer to the sacrum in the setting of paraplegia. Ulcer deteroriated this week most likely due to him sitting in a wheelchair for prolonged period of time.There are no acute signs of infection today. Continue with Vashe soak for 15 minutes with dressing change, applying Aquacel AG to the wound bed, continue with Miconazole and zinc to periwound to be changed daily. Encourage pressure relief, repositioning Q2 hours & PRN along with appropriate dietary and protein supplementation to aid in wound healing. I have offered a surgical consult however patient declines at this time. Patient and are agreeable. He will return in 1 week for a follow-up visit. I discussed the above plan with his , ULTRASOUND TECH and residential case manager. I Tone MICHAEL-Milady, examined, evaluated and treated the patient. Dr. Linette Cesar was available for any question or concerns that I may have had. 08/14/2024 Decubitus ulcer of sacral region, stage 4 (ICD-10 - L89.154) On exam, vss, afebrile, conversant, reports no complaints, non-ill appearing, denies dizziness, or chest pain. I removed the dressing and examined the wound located on the sacrum. Ulcer is measuring smaller today with less undermining today. The blanchable erythema around the wound improved. Wound bed contains slough, no odor, no purulence. With patients permission, I performed debridement of the ulcer as outlined above, cleaned with Vashe and Aquacel AG was applied to the wound bed, Miconazole and zinc applied to periwound secured with DSD. He tolerated the procedure well. Eran presents today for a follow-up visit for treatment of a stage 4 pressure ulcer to the sacrum in the setting of paraplegia. Ulcer is improved this week and surrounding fungal rash is improving. There are no acute signs of infection today. Continue with Vashe soak for 15 minutes with dressing change, applying Aquacel AG to the wound bed, continue with Miconazole and zinc to periwound to be changed daily. Encourage pressure relief, repositioning Q2 hours & PRN along with appropriate dietary and protein supplementation to aid in wound healing. Given the chronicity of the ulcer, I would like to consider a skin sub to promote wound healing. Patient and are agreeable. He will return in 1 week for a follow-up visit. I discussed the above plan with his , ULTRASOUND TECH and residential case manager. I Tone MICHAEL-Milady, examined, evaluated and treated the patient. Dr. Linette Cesar was available for any question or concerns that I may have had. 2024 Decubitus ulcer of sacral region, stage 4 (ICD-10 - L89.154) On exam, vss, afebrile, conversant, reports no complaints, non-ill appearing, denies dizziness, or chest pain. I removed the dressing and examined the wound located on the sacrum. Ulcer is measuring smaller today, continues to have undermining. The blanchable erythema around the wound improved. Wound bed contains slough, no odor, no purulence. With patients permission, I performed debridement of the ulcer as outlined above, cleaned with Vashe and Aquacel AG was applied to the wound bed, Miconazole and zinc applied to periwound secured with DSD. He tolerated the procedure well. Eran presents today for a follow-up visit for treatment of a stage 4 pressure ulcer to the sacrum in the setting of paraplegia. Ulcer is improved this week, less depth and surrounding DTI improved. There are no acute signs of infection today. Continue with Vashe soak for 15 minutes with dressing change, applying Aquacel AG to the wound bed, continue with Miconazole and zinc to periwound to be changed daily. Encourage pressure relief, repositioning Q2 hours & PRN along with appropriate dietary and protein supplementation to aid in wound healing. I did offer a surgical consult for possible surgical closure of the ulcer, they decline this option at this time. Given the chronicity of the ulcer with minimal healing, will consider application of skin sub to aid in wound healing. He will return in 1 week for a follow-up visit. I discussed the above plan with his , ULTRASOUND TECH and residential case manager. I Tone FORRESTER, examined, evaluated and treated the patient. Dr. Linette Cesar was available for any question or concerns that I may have had. 07/31/2024 Decubitus ulcer of sacral region, stage 4 (ICD-10 - L89.154) On exam, initial BP 78/40, pt asymptomatic, repeat BP 120/70, afebrile, conversant, reports no complaints, non-ill appearing, denies dizziness, or chest pain. I removed the dressing and examined the wound located on the sacrum. Ulcer is measuring larger today, increased depth and undermining, continues to have blanchable erythema around the ulcer, wound bed contains slough, no odor, no purulence. There is a new DTI on the right buttock and purple discoloration noted within the wound bed signs of increased pressue. With patients permission, I performed debridement of the ulcer as outlined above, cleaned with saline and Aquacel AG was applied to the wound bed, antifungal and zinc applied to periwound secured with DSD. He tolerated the procedure well. Eran presents today for a follow-up visit for treatment of a stage 4 pressure ulcer to the sacrum in the setting of paraplegia. Ulcer is measuring deeper with more undermining however no odor, no purulence. There is areas of DTI which I am concerned that there is more pressure to the wound and buttocks. Continue with Vashe soak for 15 minutes with dressing change, applying Aquacel AG to the wound bed, continue with Miconazole and zinc to periwound to be changed daily. Encourage pressure relief, repositioning Q2 hours & PRN along with appropriate dietary and protein supplementation to aid in wound healing. I also spoke on the phone with his residential case manager to discuss the request of the Dolphin mattress. Recommend further discussing this with PMR. I had a lengthy discussion on the importance of minimal pressure to the wound and recommended sponge baths to limit sitting in a shower chair. He will return in 1 week for a follow-up visit. I discussed the above plan with his , ULTRASOUND TECH and residential case manager. I spent 25 minutes of direct and indirect care of this patient reviewing records, gathering H&P, evaluation, formulating plan, education and documentation. I Tone FORRESTER, examined, evaluated and treated the patient. Dr. Linette Cesar was available for any question or concerns that I may have had. 07/24/2024 Dependence on wheelchair (ICD-10 - Z99.3) 07/24/2024 Decubitus ulcer of sacral region, stage 4 (ICD-10 - L89.154) On exam, VSS, afebrile, conversant, reports no complaints, non-ill appearing. I removed the dressing and examined the wound located on the sacrum. Ulcer is measuring larger today, increased depth and undermining, continues to have blanchable erythema around the ulcer, wound bed contains slough, no odor, no purulence. With patients permission, I performed debridement of the ulcer as outlined above, cleaned with saline and Aquacel AG was applied to the wound bed, antifungal and zinc applied to periwound secured with DSD. He tolerated the procedure well. Eran presents today for a follow-up visit for treatment of a stage 4 pressure ulcer to the sacrum in the setting of paraplegia. Ulcer is measuring less deep with decreased undermining, surrounding blanchable erythema. Wound cultures were positive for pseudomonas and enterococcus faecalis, he completed the Ciprofloxacin this week. Continue with Vashe soak for 15 minutes with dressing change, applying Aquacel AG to the wound bed, continue with Miconazole and zinc to periwound to be changed daily. Encourage pressure relief, repositioning Q2 hours & PRN along with appropriate dietary and protein supplementation to aid in wound healing. He will return in 1 week for a follow-up visit. I discussed the above plan with his , ULTRASOUND TECH and residential case manager. I Tone FORRESTER, examined, evaluated and treated the patient. Dr. Linette Cesar was available for any question or concerns that I may have had. 07/10/2024 Decubitus ulcer of sacral region, stage 4 (ICD-10 - L89.154) On exam, initial bp 80/50, HR 55, patient asymptomatic, recheck BP 120/70, afebrile, non-ill appearing. I removed the dressing and examined the wound located on the sacrum. Ulcer is measuring larger today, continues to have blanchable erythema around the ulcer, wound bed contains slough, undermining is present, no odor, no purulence, no signs of acute infectious process. With patients permission, I performed debridement of the ulcer as outlined above, cleaned with saline and obtained a wound culture. Ulcer was cleaned with saline and Aquacel ag was applied to the wound bed, antifungal and zinc applied to periwound secured with dsd. He tolerated the procedure well. Eran presents today for a follow up visit for treatment of a stage 4 pressure ulcer to the sacrum in the setting of paraplegia. Ulcer is larger today with surrounding blanchable erythema, wound culture was obtained to rule out any infection. I will begin Vashe soak for 15minutes with dressing change, applying Aquacel ag to the wound bed, continue with Miconazole and zinc to periwound to be changed daily. Will request VNA to change dressing daily. We are waiting for wound vac approval. Will hold off on the wound vac until wound cultures results return. Given the depth and undermining, a wound vac would be an appropriate treatment which I discussed with his , patient and staff. Had a lengthy discussion on the importance of frequent repositioning, high protein diet in wound healing. He will return in 1 week for a follow up visit. I Tone FORRESTER, examined, evaluated and treated the patient. Dr. Linette Cesar was available for any question or concerns that I may have had. 07/17/2024 Decubitus ulcer of sacral region, stage 4 (ICD-10 - L89.154) On exam, VSS, afebrile, conversant, reports no complaints, non-ill appearing. I removed the dressing and examined the wound located on the sacrum. Ulcer is measuring larger today, increased depth and undermining, continues to have blanchable erythema around the ulcer, wound bed contains slough, no odor, no purulence. With patients permission, I performed debridement of the ulcer as outlined above, cleaned with saline and Aquacel AG was applied to the wound bed, antifungal and zinc applied to periwound secured with DSD. He tolerated the procedure well. Eran presents today for a follow-up visit for treatment of a stage 4 pressure ulcer to the sacrum in the setting of paraplegia. Ulcer is measuring deeper with increased undermining, surrounding blanchable erythema. Wound cultures were positive for pseudomonas and enterococcus faecalis therefore I began Ciprofloxacin yesterday which he is taking without any issues. I will hold the wound vac at this time. Begin Vashe soak for 15 minutes with dressing change, applying Aquacel AG to the wound bed, continue with Miconazole and zinc to periwound to be changed daily. Will request VNA to change dressing daily. Encourage pressure relief, repositioning Q2 hours & PRN along with appropriate dietary and protein supplementation to aid in wound healing. He will return in 1 week for a follow-up visit. I discussed the above plan with his , ULTRASOUND TECH and residential case manager. I Tone FORRESTER, examined, evaluated and treated the patient. Dr. Linette Cesar was available for any question or concerns that I may have had. 07/10/2024 Dependence on wheelchair (ICD-10 - Z99.3) 07/03/2024 Dependence on wheelchair (ICD-10 - Z99.3) 07/03/2024 Decubitus ulcer of sacral region, stage 4 (ICD-10 - L89.154) On exam, vital signs stable, afebrile, non-ill appearing. I removed the dressing and examined the wound located on the sacrum. Ulcer contains slough, undermining is present, depth of the ulcer improved since last visit, there is surrounding blanchable erythema, dry flaky skin, no odor, no purulence, no signs of infectious process. With patients permission, I performed debridement of the ulcer as outlined above. Ulcer was cleaned with saline and Aquacel ag was applied to the wound bed, antifungal and zinc applied to periwound secured with dsd. He tolerated the procedure well. Eran presents today for a follow up visit for treatment of a stage 4 pressure ulcer to the sacrum in the setting of paraplegia. UIcer has no signs of acute infection however there is a fungal rash surrounding the ulcer. Prescription for Miconazole provided to . Given the depth and undermining, a wound vac would be an appropriate treatment which I discussed with his , patient and staff. They are agreeable to trial the wound vac again, we will order this. In the meantime, they will clean the wound with saline and apply Aquacel ag to the wound bed, Miconazole to periwound with Zinc and cover with dsd, change daily and prn if soiled. Had a lengthy discussion on the importance of frequent repositioning, high protein diet in wound healing. Start wound vac once recieved. He will return in 1 week for a follow up visit. I spent 50 minutes of direct and indirect care of this patient reviewing records, gathering H&P, evaluation, formulating plan, education and documentation. I Tone Cuevas [employer], examined, evaluated and treated the patient. Dr. Linette Cesar was available for any question or concerns that I may have had. 06/12/2024 Decubitus ulcer of sacral region, stage 4 (ICD-10 - L89.154) On assessment today, Eran noted to be afebrile and other VS were within normal limits. The patient denies pain or discomfort related to wound . We removed dressings, and examined the wound site. The coccyx wound has deteriorated this week, measuring larger with undermining 1-7 of 2.3. However, now I can't see the bone on the wound bed. The wound bed has small amount of slough with granulation noted. The periwound area has less maceration and excoriation. After examination, I discussed the indication of the debridement and he is agreeable. I then performed debridement to remove devitalized tissues as outlined. He tolerated procedure well..The wound site were then cleansed with saline, applied wound vac at 125 mmHg. Advised patient's nurse . Advised the nurse to Vashe soak to the wound for 5 min and apply wound vac. Patient and his caregive were educated to protect wound site, continue to reposition and off load. Pt's nurse will perform the dressing changes every other day or PRN. Advised patient's personal care aids to minimize shearing forces on the skin wehn lifting or transferring patients to prevent undermining. S/S of infection reviewed and when to go to ED.Patient will have FU in one week. I Solis Harrell [employer] TE[employer]ER-BC, examined, evaluated and treated the patient. Dr. Linette Cesar was available for any question or concerns that I may have had. 05/29/2024 Decubitus ulcer of sacral region, stage 4 (ICD-10 - L89.154) On assessment today, Eran noted to be afebrile and other VS were within normal limits. The patient denies pain or discomfort related to wound . We removed dressings, and examined the wound site. The coccyx wound has deteriorated this week, measuring larger with undermining 2-2 of 1.4, 7-10 of 1.6. The wound still has bone exposured. The wound bed has small amount of slough with granulation noted. The periwound area has less maceration and excoriation. After examination, I discussed the indication of the debridement and he is agreeable. I then performed debridement to remove devitalized tissues as outlined. He tolerated procedure well..The wound site were then cleansed with saline, applied adaptic and wound vac at 125 mmHg. However, his wound vac continues beeping and does not work correctly. We contact [facility] to request new wound vac. Advised patient's and nurse to change to HFB if the wound vac continues beeping and not working correctly. Patient and his caregive were educated to protect wound site, continue to reposition and off load. Pt's nurse will perform the dressing changes every other day or PRN. Advised patient's personal care aids to minimize shearing forces on the skin wehn lifting or transferring patients to prevent undermining. S/S of infection reviewed and when to go to ED.Patient will have FU in one week. I Solis Harrell [facility], examined, evaluated and treated the patient. Dr. Linette Cesar was available for any question or concerns that I may have had. 05/14/2024 Decubitus ulcer of sacral region, stage 4 (ICD-10 - L89.154) On assessment today, Eran noted to be afebrile and other VS were within normal limits. The patient denies pain or discomfort related to wound . We removed dressings, and examined the wound site. The coccyx wound has improved a little bit this week, measuring smaller with less undermining, from 11 to 5, and deepest 2.3 at 2 oclock. The wound still has bone exposured. The wound bed has small amount of slough with granulation noted. The periwound area has less maceration. After examination, I discussed the indication of the debridement and he is agreeable. I then performed debridement to remove devitalized tissues as outlined. He tolerated procedure well..The wound site were then cleansed with saline, applied adaptic, HFB gently packed to the wound bed, and zinc to periwound area. The site were then covered with a foam dressing. We re-ordered wound vac last week, but not delivered yet. Advised VNA to apply it when it is delivered. Patient and his caregive were educated to protect wound site, continue to reposition and off load. Pt's nurse will perform the dressing changes every other day or PRN. Advised patient's personal care aids to minimize shearing forces on the skin wehn lifting or transferring patients to prevent undermining. S/S of infection reviewed and when to go to ED.Patient will have FU in one week. I Solis Harrell [facility] examined, evaluated and treated the patient. Dr. Linette Cesar was available for any question or concerns that I may have had. 05/21/2024 Decubitus ulcer of sacral region, stage 4 (ICD-10 - L89.154) On assessment today, Eran noted to be afebrile and other VS were within normal limits. The patient denies pain or discomfort related to wound . We removed dressings, and examined the wound site. The coccyx wound has improved a little bit this week, measuring smaller with less undermining 1-5 of 2.0, deepest point is at 2. The wound still has bone exposured. The wound bed has small amount of slough with granulation noted. The periwound area has less maceration. After examination, I discussed the indication of the debridement and he is agreeable. I then performed debridement to remove devitalized tissues as outlined. He tolerated procedure well..The wound site were then cleansed with saline, applied adaptic, HFB gently packed to the wound bed, and zinc to periwound area. The site were then covered with a foam dressing. We will hold the wound vac for a week due to surround the wound excoriation and also his case manage will order supplies for wound vac bridge. Patient and his caregive were educated to protect wound site, continue to reposition and off load. Pt's nurse will perform the dressing changes every other day or PRN. Advised patient's personal care aids to minimize shearing forces on the skin wehn lifting or transferring patients to prevent undermining. S/S of infection reviewed and when to go to ED.Patient will have FU in one week. Carroll Harrell [facility], examined, evaluated and treated the patient. Dr. Linette Cesar was available for any question or concerns that I may have had. 05/07/2024 Decubitus ulcer of sacral region, stage 4 (ICD-10 - L89.154) On assessment today, Eran noted to be afebrile and other VS were within normal limits. The patient denies pain or discomfort related to wound . We removed dressings, and examined the wound site. The coccyx wound stable, measuring same with undermining, from 11 to 5, and deepest 2.8 at 2 oclock. The wound has now bone exposured. The wound bed has small amount of slough with granulation noted. The periwound area has less maceration. After examination, I discussed the indication of the debridement and he is agreeable. I then performed debridement to remove devitalized tissues as outlined. He tolerated procedure well..The wound site were then cleansed with saline, applied adaptic, HFB gently packed to the wound bed, and zinc to periwound area. The site were then covered with a foam dressing. We ordered wound vac, but not delivered yet. Re-ordered wound vac, and advised VNA to apply it when it is delivered. Patient and his caregive were educated to protect wound site, continue to reposition and off load. Pt's nurse will perform the dressing changes every other day or PRN. Advised patient's personal care aids to minimize shearing forces on the skin wehn lifting or transferring patients to prevent undermining. S/S of infection reviewed and when to go to ED.Patient will have FU in one week. Craroll Harrell [facility], examined, evaluated and treated the patient. Dr. Linette Cesar was available for any question or concerns that I may have had. 04/23/2024 Pressure ulcer of sacral region, stage 3 (ICD-10 - L89.153) On assessment today, Eran noted to be afebrile and other VS were within normal limits. The patient denies pain or discomfort related to wound . We removed dressings, and examined the wound site. The coccyx wound is stable, but has undernining from 11 to 5, and deepest 3.5 at 2 oclock. The wound bed has small amount of slough with granulation noted. The periwound area has less maceration. After examination, I discussed the indication of the debridement and he is agreeable. I then performed debridement to remove devitalized tissues as outlined. He tolerated procedure well..The wound site were then cleansed with saline, HFB gently packed to the wound bed, and zinc to periwound area. The site were then covered with a foam dressing. Patient and his caregive were educated to protect wound site, continue to reposition and off load. Pt's nurse will perform the dressing changes every other day or PRN. Advised patient's personal care aids to minimize shearing forces on the skin wehn lifting or transferring patients to prevent undermining. S/S of infection reviewed and when to go to ED.Patient will have FU in one week. I Solis Harrell [facility] examined, evaluated and treated the patient. Dr. Linette Cesar was available for any question or concerns that I may have had. 04/30/2024 Paraplegia, unspecified (ICD-10 - G82.20) 04/16/2024 Dependence on wheelchair (ICD-10 - Z99.3) 04/10/2024 Pressure ulcer of left buttock, stage 3 (ICD-10 - L89.323) 04/16/2024 Essential (primary) hypertension (ICD-10 - I10) 04/10/2024 Unspecified open wound of right elbow, subsequent encounter (ICD-10 - S51.001D) 04/23/2024 Dependence on wheelchair (ICD-10 - Z99.3) 05/14/2024 Paraplegia, unspecified (ICD-10 - G82.20) 05/07/2024 Paraplegia, unspecified (ICD-10 - G82.20) 04/30/2024 Dependence on wheelchair (ICD-10 - Z99.3) 05/29/2024 Paraplegia, unspecified (ICD-10 - G82.20) 05/21/2024 Paraplegia, unspecified (ICD-10 - G82.20) 06/12/2024 Paraplegia, unspecified (ICD-10 - G82.20) 07/03/2024 Neuromuscular dysfunction of bladder, unspecified (ICD-10 - N31.9) 07/10/2024 Neuromuscular dysfunction of bladder, unspecified (ICD-10 - N31.9) 07/17/2024 Dependence on wheelchair (ICD-10 - Z99.3) 07/24/2024 Neuromuscular dysfunction of bladder, unspecified (ICD-10 - N31.9) 07/31/2024 Dependence on wheelchair (ICD-10 - Z99.3) 2024 Dependence on wheelchair (ICD-10 - Z99.3) 08/14/2024 Dependence on wheelchair (ICD-10 - Z99.3) 08/21/2024 Dependence on wheelchair (ICD-10 - Z99.3) 08/28/2024 Dependence on wheelchair (ICD-10 - Z99.3) 09/03/2024 Dependence on wheelchair (ICD-10 - Z99.3) 09/11/2024 Dependence on wheelchair (ICD-10 - Z99.3) 09/18/2024 Neuromuscular dysfunction of bladder, unspecified (ICD-10 - N31.9) 09/25/2024 Dependence on wheelchair (ICD-10 - Z99.3) 10/09/2024 Dependence on wheelchair (ICD-10 - Z99.3) 10/16/2024 Dependence on wheelchair (ICD-10 - Z99.3) 10/30/2024 Paraplegia, unspecified (ICD-10 - G82.20) 10/23/2024 Dependence on wheelchair (ICD-10 - Z99.3) 11/06/2024 Paraplegia, unspecified (ICD-10 - G82.20) 11/06/2024 Decubitus ulcer of sacral region, stage 4 (ICD-10 - L89.154) On exam, afebrile, VSS, appropriate affect and cooperative with care. We removed the dressing and examined the wound located on the sacrum. Ulcer is measuring smaller today, appears improved from previous picture for comparison. Nursing reports this wound chronically waxes and wanes. The fungal rash to the periwound noted last week appears resolved. Muscle and adipose are exposed without bone or tendon. The wound bed has granulated tissue with overlying slough and areas of hypergranulation. There is no odor, no purulence. With patients permission, I performed debridement and application of silver nitrate to the ulcer as detailed above. I cleaned the ulcer with normal saline as no vashe is available and nursing applied Aquacel into the wound, Miconazole and zinc applied to periwound secured with DCD. He tolerated the procedures well after an application of lidocaine. His routine provider will discuss surgical referral (patient and report still pending and have not heard anything) vs restarting the wound vac. He was recently reimaged, revealing chronic OM. I have discussed this with the patient and his . He will have a follow up with urology on 11/07 to discuss removal of stone and nephrostomy tube and time to discontinue antibiotics. Recommendation to clean the ulcer for 5 minutes with Vashe, rinse, apply Aquacel to the wound bed, zinc to periwound, miconazole to the rash daily. Encouraged pressure relief, repositioning Q hour & PRN along with appropriate dietary and protein supplementation to aid in wound healing. I again discussed nutrition with him and recommended different foods high in protein. Eran and are agreeable to plan. He will return in 1 week for a follow-up visit. Patient and agree w plan of care and their questions were answered to their satisfaction. I spent 34 minutes of direct and indirect care of this patient reviewing records, gathering H&P, evaluation, formulating plan, education and documentation. I Ashley Jones MSN, [facility]- examined, evaluated and treated the patient. Dr. Linette Cesar was available for any question or concerns that I may have had. 11/13/2024 Chronic osteoarthritis (ICD-10 - M19.90) 11/19/2024 Paraplegia, unspecified (ICD-10 - G82.20) 12/04/2024 Decubitus ulcer of sacral region, stage 4 (ICD-10 - L89.154) On exam, afebrile, VSS, he is conversant, has no complaints. I removed the dressing and examined the wound located on the sacrum. Ulcer is measuring smaller, less depth and undermining has improved. The wound bed has granulated tissue with overlying slough and areas of hypergranulation. The surrounding rash has improved. There is no odor, no purulence. With patients permission, I performed debridement of the ulcer as outlined above and used silver nitrate to cauterize the hypergranulated tissue. I cleaned the ulcer with Vashe and Aquacel was applied to the wound bed, Miconazole and zinc applied to periwound secured with DSD. He tolerated the procedure well. Eran presents today for a follow-up visit for treatment of a stage 4 pressure ulcer to the sacrum in the setting of paraplegia. His ulcer improved this week. We made referral for surgical opinion, he is scheduled in December. He does not have acute signs of wound infection. Recommend to clean the ulcer for 5 minutes with Vashe, rinse, apply Aquacel to the wound bed, zinc to periwound, miconazole to the rash daily. Encouraged pressure relief, repositioning Q hour & PRN along with appropriate dietary and protein supplementation to aid in wound healing. I provided with a script for Maikel. Eran and are agreeable to plan. Plan also was discussed with the ULTRASOUND TECH in the room. He will return in 1 week for a follow-up visit. I Tone FORRESTER, examined, evaluated and treated the patient. Dr. Linette Cesar was available for any question or concerns that I may have had. 11/26/2024 Decubitus ulcer of sacral region, stage 4 (ICD-10 - L89.154) On exam, afebrile, VSS, he is conversant, has no complaints. I removed the dressing and examined the wound located on the sacrum. Ulcer is measuring smaller, less depth and undermining has improved. The wound bed has granulated tissue with overlying slough and areas of hypergranulation. There is darker non-blanchable erythema noted around the wound indicating more pressure to the wound. does note he has been on his buttocks for the last 4 hours due to urology appointment this morning. There is no odor, no purulence. With patients permission, I performed debridement of the ulcer as outlined above and used silver nitrate to cauterize the hypergranulated tissue. I cleaned the ulcer with Vashe and Aquacel was applied to the wound bed, Miconazole and zinc applied to periwound secured with DSD. He tolerated the procedure well. Eran presents today for a follow-up visit for treatment of a stage 4 pressure ulcer to the sacrum in the setting of paraplegia. His ulcer improved this week. We made referral for surgical opinion, he is pending appointment. We have reached to the surgical office, they are reviewing his records prior to making him an appointment. He does not have acute signs of wound infection. Recommend to clean the ulcer for 5 minutes with Vashe, rinse, apply Aquacel to the wound bed, zinc to periwound, miconazole to the rash daily. Encouraged pressure relief, repositioning Q hour & PRN along with appropriate dietary and protein supplementation to aid in wound healing. He will begin Maikel to increase protein intake. Eran and are agreeable to plan. Plan also was discussed with the ULTRASOUND TECH in the room. He will return in 1 week for a follow-up visit. I Tone FORRESTER, examined, evaluated and treated the patient. Dr. Linette Cesar was available for any question or concerns that I may have had. 12/18/2024 Decubitus ulcer of sacral region, stage 4 (ICD-10 - L89.154) On exam, afebrile, VSS, he is conversant, has no complaints. I removed the dressing and examined the wound located on the sacrum. Ulcer is measuring approximately the same, however appears to have less undermining and more healthy tissue. The wound bed has granulated tissue with overlying slough and areas of hypergranulation. The surrounding rash has improved. There is no odor, no purulence. With patients permission, I performed debridement of the ulcer as outlined above and used silver nitrate to cauterize the hypergranulated tissue. I cleaned the ulcer with Vashe and Aquacel was applied to the wound bed, zinc applied to periwound secured with DSD. He tolerated the procedure well. Eran presents today for a follow-up visit for treatment of a stage 4 pressure ulcer to the sacrum in the setting of paraplegia. His ulcer is stable. We made referral for surgical opinion, he is scheduled in January 01. He does not have acute signs of wound infection. Recommend to clean the ulcer for 5 minutes with Vashe, rinse, apply Aquacel to the wound bed, zinc to periwound, daily. DC Miconazole. Encouraged pressure relief, repositioning Q hour & PRN along with appropriate dietary and protein supplementation to aid in wound healing. He is now drinking 2-3 Maikel drinks. Eran and are agreeable to plan. Plan also was discussed with the ULTRASOUND TECH in the room. He will return in 1 week for a follow-up visit. I Tone FORRESTER, examined, evaluated and treated the patient. Dr. Linette Cesar was available for any question or concerns that I may have had. 12/25/2024 Decubitus ulcer of sacral region, stage 4 (ICD-10 - L89.154) On exam, afebrile, VSS, he is conversant, has no complaints. I removed the dressing and examined the wound located on the sacrum. Ulcer is measuring approximately the same. The wound bed has granulated tissue with overlying slough and areas of hypergranulation. There is no odor, no purulence. With patients permission, I performed debridement of the ulcer as outlined above and used silver nitrate to cauterize the hypergranulated tissue. I cleaned the ulcer with Vashe and Aquacel was applied to the wound bed, zinc applied to periwound secured with DSD. He tolerated the procedure well. Eran presents today for a follow-up visit for treatment of a stage 4 pressure ulcer to the sacrum in the setting of paraplegia. Wound healing has been stagnant. We made referral for surgical opinion, he is scheduled in January 01. He does not have acute signs of wound infection. Recommend to clean the ulcer for 5 minutes with Vashe, rinse, apply Aquacel to the wound bed, zinc to periwound, daily. Encouraged pressure relief, repositioning Q hour & PRN along with appropriate dietary and protein supplementation to aid in wound healing. He is now drinking 2-3 Maikel drinks. Eran and are agreeable to plan. Plan also was discussed with the ULTRASOUND TECH in the room. He will return in 1 week for a follow-up visit. I Tone FORRESTER, examined, evaluated and treated the patient. Dr. Linette Cesar was available for any question or concerns that I may have had. 01/02/2025 Decubitus ulcer of sacral region, stage 4 (ICD-10 - L89.154) On exam, afebrile, VSS, he is conversant, has no complaints. I removed the dressing and examined the wound located on the sacrum. Ulcer is measuring approximately the same. The wound bed has granulated tissue with overlying slough and areas of hypergranulation. There is no odor, no purulence. With patients permission, I performed debridement of the ulcer as outlined above and used silver nitrate to cauterize the hypergranulated tissue. I cleaned the ulcer with Dakins, rinsed with saline and Aquacel was applied to the wound bed, zinc applied to periwound secured with DSD. He tolerated the procedure well. Eran presents today for a follow-up visit for treatment of a stage 4 pressure ulcer to the sacrum in the setting of paraplegia. Wound healing has been stagnant. We made referral for surgical opinion, he was seen yesterday however they were not able to evaluate the wound due to not having a anabel lift. We will follow up on this. He does not have acute signs of wound infection. Recommend to clean the ulcer for 5 minutes with Vashe, rinse, apply Aquacel extra (not AG) to the wound bed, zinc to periwound, daily. I discussed application a wound vac as previously tried this but he ended up in the hospital for different issue and wound vac was discontinued. He will be getting a different residential case manager, has a call with them today. ULTRASOUND TECH also notes a 3 lb weight loss with diarrhea for the last 2 weeks. I advised me to notify the PCP of this urgently. They will let the residential case manager know of this today. Encouraged pressure relief, repositioning Q hour & PRN along with appropriate dietary and protein supplementation to aid in wound healing. He is now drinking 2-3 Maikel drinks. Eran and are agreeable to plan. Plan also was discussed with the ULTRASOUND TECH in the room. He will return in 1 week for a follow-up visit. I Tone FORRESTER, examined, evaluated and treated the patient. Dr. Linette Cesar was available for any question or concerns that I may have had. 01/07/2025 Decubitus ulcer of sacral region, stage 4 (ICD-10 - L89.154) On exam, afebrile, VSS, he is conversant, has no complaints. I removed the dressing and examined the wound located on the sacrum. Ulcer is measuring approximately the same. The wound bed has granulated tissue with overlying slough and areas of hypergranulation. There is undermining present. There is no odor, no purulence. With patients permission, I performed debridement of the ulcer as outlined above and used silver nitrate to cauterize the hypergranulated tissue. I cleaned the ulcer with Dakins, rinsed with saline and Aquacel extra was applied to the wound bed, zinc applied to periwound secured with DSD. He tolerated the procedure well. Eran presents today for a follow-up visit for treatment of a stage 4 pressure ulcer to the sacrum in the setting of paraplegia and chronic osteomyelitis. Wound healing has been stagnant. We made referral for surgical opinion, he was seen last week however they were not able to evaluate the wound due to not having a anabel lift. They did recommend surgical opinion in [place] or [place], they decline this option. He is currently on vacation and requested that he contacts me to discuss further option once he returns. He does not have acute signs of wound infection. Recommend to clean the ulcer for 5 minutes with Vashe, rinse, apply Aquacel extra (not AG) to the wound bed, zinc to periwound, daily. I discussed application a wound vac as previously tried this but he ended up in the hospital for different issue and wound vac was discontinued. He is in the process of getting a different residential case manager, I requested that they contact me to discuss application for wound vac. Encouraged pressure relief, repositioning Q hour & PRN along with appropriate dietary and protein supplementation to aid in wound healing. He is now drinking 2-3 Maikel drinks. Eran and are agreeable to plan. Plan also was discussed with the ULTRASOUND TECH in the room. He will return in 1 week for a follow-up visit. I spent 25 minutes of direct and indirect care of this patient reviewing records, gathering H&P, evaluation, formulating plan, education and documentation. I Tone FORRESTER, examined, evaluated and treated the patient. Dr. Linette Cesar was available for any question or concerns that I may have had. 01/22/2025 Decubitus ulcer of sacral region, stage 4 (ICD-10 - L89.154) On exam, afebrile, VSS, he is conversant, has no complaints. I removed the dressing and examined the wound located on the sacrum. Ulcer is measuring approximately the same. The wound bed has granulated tissue with overlying slough and areas of hypergranulation. There is undermining present. There is no odor, no purulence. With patients permission, I performed debridement of the ulcer as outlined above and used silver nitrate to cauterize the hypergranulated tissue. I cleaned the ulcer with Dakins. Nursing applied wound vac today to 125mmhg suction. He tolerated the procedure well. Eran presents today for a follow-up visit for treatment of a stage 4 pressure ulcer to the sacrum in the setting of paraplegia and chronic osteomyelitis. Wound healing has been stagnant. We made referral for surgical opinion, he went for appt however they did not have a anabel lift therefore they were not able to evaluate the wound. They did recommend surgical opinion in [place] or [place], they decline this option. He does not have acute signs of wound infection. Wound vac initiated today. He will have [facility]NA change the wound vac every other day. I advised to remove the wound vac if it looses suction for more than 2 hours and apply a wet to dry dressing and contact VNA. Continue with vashe soak for 5 minutes with each wound vac change. Encouraged pressure relief, repositioning Q hour & PRN along with appropriate dietary and protein supplementation to aid in wound healing. He is now drinking 2-3 Maikel drinks. Eran and are agreeable to plan. Plan also was discussed with the ULTRASOUND TECH in the room. He will return in 1 week for a follow-up visit. I spent 30 minutes of direct and indirect care of this patient reviewing records, gathering H&P, evaluation, formulating plan, education and documentation. I Tone MICHEAL-Milady, examined, evaluated and treated the patient. Dr. Linette Cesar was available for any question or concerns that I may have had. 01/29/2025 Decubitus ulcer of sacral region, stage 4 (ICD-10 - L89.154) On exam, afebrile, VSS, he is conversant, has no complaints. I removed the dressing and examined the wound located on the sacrum. Ulcer is measuring approximately the same however the undermining appears to have improved. There is skin irritation around the wound today. There is no odor, no purulence, no signs of infectious process.The wound bed has granulated tissue with overlying slough and areas of hypergranulation. With patients permission, I performed debridement of the ulcer as outlined above and used silver nitrate to cauterize the hypergranulated tissue. I cleaned the ulcer with Dakins. Nursing applied wound vac today to 125mmhg suction. He tolerated the procedure well. Eran presents today for a follow-up visit for treatment of a stage 4 pressure ulcer to the sacrum in the setting of paraplegia and chronic osteomyelitis. Wound is stable. There is surrounding rash around the wound. We applied nystatin powder with Triamcinolone to the rash. There are no signs of acute infection within the wound bed. Nursing noted that the wound vac setting were changed to intermittent suction at 25mmhg. The order was for 125mmhg suction constantly. I will have our nurse educator contact the [employer] to provide education. We made referral for surgical opinion, he went for appt however they did not have a anabel lift therefore they were not able to evaluate the wound. They did recommend surgical opinion in [place] or [place], they decline this option. He does not have acute signs of wound infection. Continue with vashe soak for 5 minutes with each wound vac change. Encouraged pressure relief, repositioning Q hour & PRN along with appropriate dietary and protein supplementation to aid in wound healing. He is now drinking 2-3 Maikel drinks. Eran and are agreeable to plan. Plan also was discussed with the ULTRASOUND TECH in the room. He will return in 1 week for a follow-up visit. I spent 38 minutes of direct and indirect care of this patient reviewing records, gathering H&P, evaluation, formulating plan, education and documentation. I Tone FORRESTER, examined, evaluated and treated the patient. Dr. Linette Cesar was available for any question or concerns that I may have had. 02/12/2025 Decubitus ulcer of sacral region, stage 4 (ICD-10 - L89.154) On exam, afebrile, VSS, he is conversant, has no complaints. I removed the dressing and examined the wound located on the sacrum. Ulcer is measuring approximately the same from previous visit. The surrounding fungal rash and excoriation has resolved. There is no odor, no purulence, no signs of infectious process.The wound bed has granulated tissue with overlying slough and areas of hypergranulation. With patients permission, I performed debridement of the ulcer as outlined above and used silver nitrate to cauterize the hypergranulated tissue. I cleaned the ulcer with Dakins, rinsed with saline and nursing applied the wound vac to 125mmhg suction. He tolerated the procedure well. Eran presents today for a follow-up visit for treatment of a stage 4 pressure ulcer to the sacrum in the setting of paraplegia and chronic osteomyelitis. The wound is stable and surrounding skin rash has improved. Wound vac was reapplied today to 125mmhg suction to be changed every 72 hours. He has 24 hour care at home and they are aware to contact the [facility]NA if the wound vac loses suction and alarms are sounding. Previous wound vac application was applied incorrectly, our Nurse educator did contact the VNA and provided education on proper application of the wound vac. We made referral for surgical opinion, he went for appt however they did not have a anabel lift therefore they were not able to evaluate the wound. They did recommend surgical opinion in [place] or [place], they decline this option. Encouraged pressure relief, repositioning Q hour & PRN along with appropriate dietary and protein supplementation to aid in wound healing. He is now drinking 2-3 Maikel drinks. Eran and are agreeable to plan. He will return in 1 week for a follow-up visit. I Tone FORRESTER, examined, evaluated and treated the patient. Dr. Linette Cesar was available for any question or concerns that I may have had. 02/05/2025 Decubitus ulcer of sacral region, stage 4 (ICD-10 - L89.154) On exam, afebrile, VSS, he is conversant, has no complaints. I removed the dressing and examined the wound located on the sacrum. Ulcer is measuring deeper with increased depth in the undermining. There is macerated and excoriated skin irritation around the wound today. There is no odor, no purulence, no signs of infectious process.The wound bed has granulated tissue with overlying slough and areas of hypergranulation. With patients permission, I performed debridement of the ulcer as outlined above and used silver nitrate to cauterize the hypergranulated tissue. I cleaned the ulcer with Dakins, rinsed with saline and Aquacel ag was applied to wound bed, Triamcinolone with Nystatin was applied to periwound secured with foam border dressing. He tolerated the procedure well. Eran presents today for a follow-up visit for treatment of a stage 4 pressure ulcer to the sacrum in the setting of paraplegia and chronic osteomyelitis. The wound detoriated and there is worsening fungal rash/skin irritation around the ulcer. Nursing noted that the sponge from the wound vac was applied to the top of the ulcer instead of being packed into the ulcer causing increased maceration and skin irritation. I will hold off on the wound vac today. Continue with Vashe soak for 5 minutes, rinse with saline, apply Aquacel ag to the wound bed, Miconazole to the fungal rash, zinc to immediate periwound and cover with foam border dressing. There are no signs of acute infection within the wound bed. I will have our nurse educator contact the [employer] to provide education. We made referral for surgical opinion, he went for appt however they did not have a anabel lift therefore they were not able to evaluate the wound. They did recommend surgical opinion in [place] or [place], they decline this option. Encouraged pressure relief, repositioning Q hour & PRN along with appropriate dietary and protein supplementation to aid in wound healing. He is now drinking 2-3 Maikel drinks. Eran and are agreeable to plan. He will return in 1 week for a follow-up visit. I Tone FORRESTER, examined, evaluated and treated the patient. Dr. Linette Cesar was available for any question or concerns that I may have had. 02/19/2025 Decubitus ulcer of sacral region, stage 4 (ICD-10 - L89.154) On exam, afebrile, VSS, he is conversant, has no complaints. I removed the dressing and examined the wound located on the sacrum. Ulcer is measuring approximately the same from previous visit. He does have well defined rash around the ulcer from the use of adhesive with wound vac with scaly excoriated skin. There is no odor, no purulence, no signs of infectious process.The wound bed has granulated tissue with overlying slough and areas of hypergranulation. With patients permission, I performed debridement of the ulcer as outlined above and used silver nitrate to cauterize the hypergranulated tissue. I cleaned the ulcer with Dakins, rinsed with saline and Aquacel ag was applied to the wound bed. Miconazole with Triamcinolone was applied to the periwound. He tolerated the procedure well. Eran presents today for a follow-up visit for treatment of a stage 4 pressure ulcer to the sacrum in the setting of paraplegia and chronic osteomyelitis. His wound is stable. 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 We will hold off on the wound vac for 2 days to allow surrounding skin to recover. I will request [facility] to apply Miconazole with Betamethasone to the surrounding skin and apply Aquacel ag to the wound bed. Wound vac should be resumed in 2 days to 125mmhg suction to be changed every 72 hours. He has 24 hour care at home and they are aware to contact the [facility] if the wound vac loses suction and alarms are sounding. We made referral for surgical opinion, he went for appt however they did not have a anabel lift therefore they were not able to evaluate the wound. They did recommend surgical opinion in [place] or [place], they decline this option. Encouraged pressure relief, repositioning Q hour & PRN along with appropriate dietary and protein supplementation to aid in wound healing. He is now drinking 2-3 Maikel drinks. Eran and are agreeable to plan. He will return in 1 week for a follow-up visit. I Tone FORRESTER, examined, evaluated and treated the patient. Dr. Linette Cesar was available for any question or concerns that I may have had. 02/26/2025 Decubitus ulcer of sacral region, stage 4 (ICD-10 - L89.154) On exam, afebrile, VSS, he is conversant, has no complaints. I removed the dressing and examined the wound located on the sacrum. Ulcer is measuring approximately the same from previous visit. The surrounding maceration has improved, there is light erythema at baseline, with dry scaly skin. There is no excoriation. There is no odor, no purulence, no signs of infectious process.The wound bed has granulated tissue with overlying slough and areas of hypergranulation. With patients permission, I performed debridement of the ulcer as outlined above and used silver nitrate to cauterize the hypergranulated tissue. I cleaned the ulcer with Dakins, rinsed with saline and Nursing applied the wound vac to 125mmhg suction. Miconazole with Triamcinolone was applied to the periwound. He tolerated the procedure well. Eran presents today for a follow-up visit for treatment of a stage 4 pressure ulcer to the sacrum in the setting of paraplegia and chronic osteomyelitis. His wound is stable. His surrounding dermatitis has improved, there is no maceration therefore we will proceed with the wound vac to 125mmhg continouus suction. Wound vac should be changed every other day the [facility]. He has 24 hour care at home and they are aware to contact the [facility] if the wound vac loses suction and alarms are sounding. Encouraged pressure relief, repositioning Q hour & PRN along with appropriate dietary and protein supplementation to aid in wound healing. He is now drinking 2-3 Maikel drinks. Eran and are agreeable to plan. He will return in 1 week for a follow-up visit. I Tone FORRESTER, examined, evaluated and treated the patient. Dr. Lientte Cesar was available for any question or concerns that I may have had. 03/05/2025 Decubitus ulcer of sacral region, stage 4 (ICD-10 - L89.154) On exam, afebrile, VSS, he is conversant, has no complaints. I removed the dressing and examined the wound located on the sacrum. Ulcer has less depth and tissue within the wound bed appears healthier. The surrounding maceration has improved, there is light erythema at baseline, with dry scaly skin. There is no excoriation. There is no odor, no purulence, no signs of infectious process.The wound bed has granulated tissue with overlying slough and areas of hypergranulation. With patients permission, I performed debridement of the ulcer as outlined above and used silver nitrate to cauterize the hypergranulated tissue. I cleaned the ulcer with Dakins, rinsed with saline and Nursing applied the wound vac to 125mmhg suction. Miconazole with Triamcinolone was applied to the periwound. He tolerated the procedure well. Eran presents today for a follow-up visit for treatment of a stage 4 pressure ulcer to the sacrum in the setting of paraplegia and chronic osteomyelitis. His wound appears to have improved this week. We will proceed with the wound vac to 125mmhg continouus suction. Wound vac should be changed every other day the [facility]. He is being ruled out for CDiff however he had stooling during his visit today which appeared solid. Nursing did collect a sample and provided it to his . also notes that he needs to go to colonoscopy. I did recommend a flexiseal if possible to capture some of the stool. He has 24 hour care at home and they are aware to contact the [facility] if the wound vac loses suction and alarms are sounding. Encouraged pressure relief, repositioning Q hour & PRN along with appropriate dietary and protein supplementation to aid in wound healing. He is now drinking 2-3 Maikel drinks. Eran and are agreeable to plan. He will return in 1 week for a follow-up visit. I Tone FORRESTER, examined, evaluated and treated the patient. Dr. Linette Cesar was available for any question or concerns that I may have had. 03/12/2025 Decubitus ulcer of sacral region, stage 4 (ICD-10 - L89.154) On exam, afebrile, VSS, he is conversant, has no complaints. I removed the dressing and examined the wound located on the sacrum. Ulcer appears to have improved and undermining is filling in. There is light erythema at baseline, with dry scaly skin. There is no excoriation. There is no odor, no purulence, no signs of infectious process.The wound bed has granulated tissue with overlying slough and areas of hypergranulation. With patients permission, I performed debridement of the ulcer as outlined above and used silver nitrate to cauterize the hypergranulated tissue. I cleaned the ulcer with Dakins, rinsed with saline and Nursing applied the wound vac to 125mmhg suction. Miconazole with Triamcinolone was applied to the periwound. He tolerated the procedure well. Eran presents today for a follow-up visit for treatment of a stage 4 pressure ulcer to the sacrum in the setting of paraplegia and chronic osteomyelitis. His wound appears to have improved this week. We will proceed with the wound vac to 125mmhg continouus suction. Wound vac should be changed every other day the [facility]. He has 24 hour care at home and they are aware to contact the [facility]NA if the wound vac loses suction and alarms are sounding. Encouraged pressure relief, repositioning Q hour & PRN along with appropriate dietary and protein supplementation to aid in wound healing. He is now drinking 2-3 Maikel drinks. Eran and are agreeable to plan. He will return in 1 week for a follow-up visit. I Tone FORRESTER, examined, evaluated and treated the patient. Dr. Linette Cesar was available for any question or concerns that I may have had. 03/19/2025 Decubitus ulcer of sacral region, stage 4 (ICD-10 - L89.154) On exam, afebrile, VSS, he is conversant, has no complaints. I removed the dressing and examined the wound located on the sacrum. Ulcer appears to have improved and undermining is filling in. There is light erythema at baseline, with dry scaly skin. There is no excoriation. There is no odor, no purulence, no signs of infectious process.The wound bed has granulated tissue with overlying slough and areas of hypergranulation. With patients permission, I performed debridement of the ulcer as outlined above and used silver nitrate to cauterize the hypergranulated tissue. I cleaned the ulcer with Dakins, rinsed with saline and Nursing applied the wound vac to 125mmhg suction. Miconazole with Triamcinolone was applied to the periwound. He tolerated the procedure well. Eran presents today for a follow-up visit for treatment of a stage 4 pressure ulcer to the sacrum in the setting of paraplegia and chronic osteomyelitis. His wound appears to be making slow healing progress. We will proceed with the wound vac to 125mmhg continouus suction. Wound vac should be changed every other day the [facility]. He has 24 hour care at home and they are aware to contact the [facility]NA if the wound vac loses suction and alarms are sounding. Encouraged pressure relief, repositioning Q hour & PRN along with appropriate dietary and protein supplementation to aid in wound healing. Prescription for Maikel was provided to . Recommend drink 2 packs daily. Eran and are agreeable to plan. He will return in 1 week for a follow-up visit. I Tone FORRESTER, examined, evaluated and treated the patient. Dr. Linette Cesar was available for any question or concerns that I may have had. 03/19/2025 Paraplegia, unspecified (ICD-10 - G82.20) 03/12/2025 Paraplegia, unspecified (ICD-10 - G82.20) 03/05/2025 Paraplegia, unspecified (ICD-10 - G82.20) 02/26/2025 Paraplegia, unspecified (ICD-10 - G82.20) 02/12/2025 Paraplegia, unspecified (ICD-10 - G82.20) 02/19/2025 Paraplegia, unspecified (ICD-10 - G82.20) 02/05/2025 Paraplegia, unspecified (ICD-10 - G82.20) 01/29/2025 Paraplegia, unspecified (ICD-10 - G82.20) 01/22/2025 Paraplegia, unspecified (ICD-10 - G82.20) 01/07/2025 Paraplegia, unspecified (ICD-10 - G82.20) 01/02/2025 Paraplegia, unspecified (ICD-10 - G82.20) 12/25/2024 Paraplegia, unspecified (ICD-10 - G82.20) 12/04/2024 Paraplegia, unspecified (ICD-10 - G82.20) 11/19/2024 Dependence on wheelchair (ICD-10 - Z99.3) 12/18/2024 Paraplegia, unspecified (ICD-10 - G82.20) 11/26/2024 Paraplegia, unspecified (ICD-10 - G82.20) 11/13/2024 Paraplegia, unspecified (ICD-10 - G82.20) 10/30/2024 Dependence on wheelchair (ICD-10 - Z99.3) 11/06/2024 Dependence on wheelchair (ICD-10 - Z99.3) 10/16/2024 Neuromuscular dysfunction of bladder, unspecified (ICD-10 - N31.9) 10/23/2024 Neuromuscular dysfunction of bladder, unspecified (ICD-10 - N31.9) 10/09/2024 Neuromuscular dysfunction of bladder, unspecified (ICD-10 - N31.9) 09/18/2024 Hypotension (ICD-10 - I95.9) 09/25/2024 Neuromuscular dysfunction of bladder, unspecified (ICD-10 - N31.9) 09/11/2024 Neuromuscular dysfunction of bladder, unspecified (ICD-10 - N31.9) 09/03/2024 Neuromuscular dysfunction of bladder, unspecified (ICD-10 - N31.9) 08/28/2024 Neuromuscular dysfunction of bladder, unspecified (ICD-10 - N31.9) 08/21/2024 Neuromuscular dysfunction of bladder, unspecified (ICD-10 - N31.9) 08/14/2024 Neuromuscular dysfunction of bladder, unspecified (ICD-10 - N31.9) 2024 Neuromuscular dysfunction of bladder, unspecified (ICD-10 - N31.9) 07/31/2024 Neuromuscular dysfunction of bladder, unspecified (ICD-10 - N31.9) 07/17/2024 Neuromuscular dysfunction of bladder, unspecified (ICD-10 - N31.9) 07/10/2024 Local infection of skin and subcutaneous tissue (ICD-10 - L08.9) 06/12/2024 Dependence on wheelchair (ICD-10 - Z99.3) 05/29/2024 Dependence on wheelchair (ICD-10 - Z99.3) 05/21/2024 Dependence on wheelchair (ICD-10 - Z99.3) 05/07/2024 Dependence on wheelchair (ICD-10 - Z99.3) 05/14/2024 Dependence on wheelchair (ICD-10 - Z99.3) 04/30/2024 Essential (primary) hypertension (ICD-10 - I10) 04/23/2024 Essential (primary) hypertension (ICD-10 - I10) 04/16/2024 Other hyperlipidemia (ICD-10 - E78.49) 04/10/2024 Paraplegia, unspecified (ICD-10 - G82.20) 04/16/2024 Neuromuscular dysfunction of bladder, unspecified (ICD-10 - N31.9) 04/10/2024 Dependence on wheelchair (ICD-10 - Z99.3) 04/23/2024 Other hyperlipidemia (ICD-10 - E78.49) 05/14/2024 Essential (primary) hypertension (ICD-10 - I10) 04/30/2024 Other hyperlipidemia (ICD-10 - E78.49) 05/07/2024 Essential (primary) hypertension (ICD-10 - I10) 05/29/2024 Essential (primary) hypertension (ICD-10 - I10) 05/21/2024 Essential (primary) hypertension (ICD-10 - I10) 06/12/2024 Essential (primary) hypertension (ICD-10 - I10) 07/17/2024 Local infection of skin and subcutaneous tissue (ICD-10 - L08.9) 10/09/2024 Hypotension (ICD-10 - I95.9) 09/25/2024 Hypotension (ICD-10 - I95.9) 10/16/2024 Hypotension (ICD-10 - I95.9) 10/23/2024 Hypotension (ICD-10 - I95.9) 10/30/2024 Neuromuscular dysfunction of bladder, unspecified (ICD-10 - N31.9) 11/06/2024 Neuromuscular dysfunction of bladder, unspecified (ICD-10 - N31.9) 11/13/2024 Dependence on wheelchair (ICD-10 - Z99.3) 11/19/2024 Neuromuscular dysfunction of bladder, unspecified (ICD-10 - N31.9) 11/26/2024 Dependence on wheelchair (ICD-10 - Z99.3) 12/04/2024 Dependence on wheelchair (ICD-10 - Z99.3) 12/18/2024 Dependence on wheelchair (ICD-10 - Z99.3) 12/25/2024 Dependence on wheelchair (ICD-10 - Z99.3) 01/02/2025 Dependence on wheelchair (ICD-10 - Z99.3) 01/07/2025 Dependence on wheelchair (ICD-10 - Z99.3) 01/22/2025 Dependence on wheelchair (ICD-10 - Z99.3) 01/29/2025 Dependence on wheelchair (ICD-10 - Z99.3) 02/05/2025 Dependence on wheelchair (ICD-10 - Z99.3) 02/12/2025 Dependence on wheelchair (ICD-10 - Z99.3) 02/19/2025 Dependence on wheelchair (ICD-10 - Z99.3) 02/26/2025 Dependence on wheelchair (ICD-10 - Z99.3) 03/05/2025 Dependence on wheelchair (ICD-10 - Z99.3) 03/12/2025 Dependence on wheelchair (ICD-10 - Z99.3) 03/19/2025 Dependence on wheelchair (ICD-10 - Z99.3) 03/19/2025 Neuromuscular dysfunction of bladder, unspecified (ICD-10 - N31.9) 03/12/2025 Neuromuscular dysfunction of bladder, unspecified (ICD-10 - N31.9) 03/05/2025 Neuromuscular dysfunction of bladder, unspecified (ICD-10 - N31.9) 02/19/2025 Neuromuscular dysfunction of bladder, unspecified (ICD-10 - N31.9) 02/26/2025 Neuromuscular dysfunction of bladder, unspecified (ICD-10 - N31.9) 02/12/2025 Neuromuscular dysfunction of bladder, unspecified (ICD-10 - N31.9) 01/22/2025 Neuromuscular dysfunction of bladder, unspecified (ICD-10 - N31.9) 01/07/2025 Neuromuscular dysfunction of bladder, unspecified (ICD-10 - N31.9) 01/29/2025 Neuromuscular dysfunction of bladder, unspecified (ICD-10 - N31.9) 02/05/2025 Neuromuscular dysfunction of bladder, unspecified (ICD-10 - N31.9) 01/02/2025 Neuromuscular dysfunction of bladder, unspecified (ICD-10 - N31.9) 12/18/2024 Neuromuscular dysfunction of bladder, unspecified (ICD-10 - N31.9) 12/25/2024 Neuromuscular dysfunction of bladder, unspecified (ICD-10 - N31.9) 12/04/2024 Neuromuscular dysfunction of bladder, unspecified (ICD-10 - N31.9) 11/26/2024 Neuromuscular dysfunction of bladder, unspecified (ICD-10 - N31.9) 11/13/2024 Neuromuscular dysfunction of bladder, unspecified (ICD-10 - N31.9) 11/06/2024 Hypotension (ICD-10 - I95.9) 10/30/2024 Hypotension (ICD-10 - I95.9) 06/12/2024 Other hyperlipidemia (ICD-10 - E78.49) 05/29/2024 Other hyperlipidemia (ICD-10 - E78.49) 05/21/2024 Other hyperlipidemia (ICD-10 - E78.49) 04/30/2024 Neuromuscular dysfunction of bladder, unspecified (ICD-10 - N31.9) 05/07/2024 Other hyperlipidemia (ICD-10 - E78.49) 05/14/2024 Other hyperlipidemia (ICD-10 - E78.49) 04/23/2024 Neuromuscular dysfunction of bladder, unspecified (ICD-10 - N31.9) 04/10/2024 Essential (primary) hypertension (ICD-10 - I10) 04/10/2024 Other hyperlipidemia (ICD-10 - E78.49) 05/14/2024 Neuromuscular dysfunction of bladder, unspecified (ICD-10 - N31.9) 05/07/2024 Neuromuscular dysfunction of bladder, unspecified (ICD-10 - N31.9) 05/21/2024 Neuromuscular dysfunction of bladder, unspecified (ICD-10 - N31.9) 05/29/2024 Neuromuscular dysfunction of bladder, unspecified (ICD-10 - N31.9) 06/12/2024 Neuromuscular dysfunction of bladder, unspecified (ICD-10 - N31.9) 11/06/2024 Osteomyelitis of sacrum (ICD-10 - M46.28) chronic 11/13/2024 Hypotension (ICD-10 - I95.9) 04/10/2024 Neuromuscular dysfunction of bladder, unspecified (ICD-10 - N31.9) 04/10/2024 Pressure ulcer of right buttock, stage 3 (ICD-10 - L89.313) 04/30/2024 Other Js Hodges MD confirm that [facility] understands and adheres to the guidelines of the established clinical protocols in the office. I confirm the above care provided was rendered under my general supervision as initially planned and subsequently discussed and supervised by me. 05/14/2024 Other Js Hodges MD confirm that [facility] understands and adheres to the guidelines of the established clinical protocols in the office. I confirm the above care provided was rendered under my general supervision as initially planned and subsequently discussed and supervised by me. 05/21/2024 Other 11/06/2024 Other Plan Of Treatment Next Appt Details Provider Name:Tone macias, 03/26/2025 01:00:00 PM, [address], [address], [place], [address], Provider Name:Tone macias, 04/02/2025 11:00:00 AM, [address], [address], [place], [address], Provider Name:Tone macias, 04/09/2025 01:00:00 PM, [address], [address], [place], [address], Provider Name:Tone macias, 04/16/2025 01:00:00 PM, [address], [address], [place], [address], Provider Name:Tone Pryor na, 04/23/2025 03:00:00 PM, [address], [address], [place], [address], Insurance Providers Payer Name Payer Address Payer Phone Subscriber Number Group Number Insured Name Patient Relationship to Insured Coverage Start Date Coverage End Date [facility] [address] [place] [phone] [id number] Eran Maki Self - patient is the insured 5 [facility] Medical Billing [address] [place] [address] [phone] [id number] Eran Maki Self - patient is the insured 5 Medical (General) History Medical History History ICD Code Sepsis due to Pseudomonas A41.52 Anxiety F41.9 Paraplegia G82.20 Cataract H26.9 Allergic conjunctivitis H10.10 Urethral stricture N35.919 Skin lesion L98.9 Syncope R55 Pressure injury of skin of buttock L89.3 09 Cervical spinal cord injury S14.109A Psoriasis L40.9 Abdominal aortic aneurysm I71.40 Neuropathy G62.9 Neurogenic bladder N31.9 Candidiasis of skin B37.2 Cholecystitis K81.9 GERD (gastroesophageal reflux disease) K 21.9 Glaucoma H40.9 Hypertension I10 Osteoarthritis M19.90 Obesity E66.9 Renal failure N19 Atrial fibrillation I48.91 Coronary arteriosclerosis I25.10 Hyperlipidemia E78.5 Polyp of colon K63.5 Pressure ulcer of sacral region, stage 3 L89.153 Dependence on wheelchair Z99.3 Neuromuscular dysfunction of bladder, un specified N31.9 Paraplegia, unspecified G82.20
--- OUTSIDE RECORDS SUMMARY | 2025-03-26 07:49 | XMS_ITS | Encounter Summary ---
Author Organization [facility] Address [address] [place] [address] Care Team Providers Care Freight Forwarder Name Role Phone Aba Linares DO Primary Care Provider [phone] Encounter Details Date Type Department Care Team (Late st Contact Info) Description 02/26/2025 Lab Requisition [facility] - Main Lab [address] [facility] [place] [address] [place] [address] [place] [address] Gross hematuria Social History Tobacco Use Types Packs/Day Years Used Date Smoking Tobacco: Former Cigarettes Alcohol Use Standard Drinks/Week Comments Not Currently [...] Routine 02/25/2025 5:47 PM EDT Gross hematuria documented in this encounter Results * (ABNORMAL) Baterial identification and susceptibility, aerobic (02/25/2025 5:47 PM EDT) Culture, Bacterial ID and Sensitivity Klebsiella pneumoniae ESBL(A) RANDOLPH 03/01/2025 8:55 AM EDT [facility] Comment: THIS ORGANISM IS POSITIVE [...] Providencia rettgeri(A) RANDOLPH 03/01/2025 8:55 AM EDT [facility] Comment: The organism value for [...] LAB MICROBIOLOGY - GENERAL ORDERABLES Final Result 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
--- OUTSIDE RECORDS SUMMARY | 2025-03-26 07:50 | XMS_ITS | Encounter Summary ---
Author Organization [facility] Address [address] [place] [address] Care Team Providers Care Student Driving Instructor Name Role Phone Aba Linares DO Primary Care Provider [phone] Encounter Details Date Type Department Care Team (Late st Contact Info) Description 12/06/2024 Lab Requisition [facility] - Main Lab [address] [facility] [place] [address] Curtis Rodrigues MD [address] [place] [phone] Urinary tract infection, site not specified Social [...] Comments BACTERIAL IDENTIFICATION AND SUSCEPTIBILITY, AEROBIC Routine 12/06/2024 10:00 AM EDT Urinary tract infection, site not specified documented in this encounter Results * (ABNORMAL) Bacterial identification and susceptibility, aerobic (12/06/2024 10:00 AM EDT) Culture, Bacterial ID and Sensitivity Escherichia coli ESBL(A) RANDOLPH 12/08/2024 8:10 AM EDT [facility] Comment: THIS ORGANISM IS POSITIVE FOR EXTENDED SPECTRUM BETA-LACTAMASE (ESBL). EXTENDED SPECTRUM BETA-LACTAMASE PRODUCING ORGANISMS DEMONSTRATE DECREASED ACTIVITY WITH PENICILLINS, CEPHALOSPORINS AND AZTREONAM. This is an edited result. Previous organism was Gram negative bacilli on 12/06/2024 at 1024 EDT. Edited result: Previously reported as Escherichia coli on 12/07/2024 at 1011 EDT. Other Urine specimen from urinary conduit / Unknown Non-blood Collection / Unknown 12/06/2024 10:00 AM EDT 12/06/2024 10:00 AM EDT Narrative Organism Antibiotic Method Susceptibility Escherichia coli ESBL Amoxicillin/Clavulanate RANDOLPH 16 ug/ml: Intermediate Escherichia coli ESBL Ampicillin/Sulbactam RANDOLPH >=32 ug/ml: Resistant Escherichia coli ESBL Piperacillin/Tazobactam RANDOLPH 64 ug/ml: Resistant Escherichia coli ESBL Cefazolin (Urine) RANDOLPH >=32 ug/ml: Resistant Escherichia coli ESBL Cefoxitin RANDOLPH <=4 ug/ml: Susceptible Escherichia coli ESBL Ceftazidime RANDOLPH 16 ug/ml: Resistant Escherichia coli ESBL Ceftriaxone RANDOLPH >=64 ug/ml: Resistant Escherichia coli ESBL Cefepime RANDOLPH 16 ug/ml: Resistant Escherichia coli ESBL Meropenem RANDOLPH <=0.25 ug/ml: Susceptible Escherichia coli ESBL Amikacin RANDOLPH 4 ug/ml: Susceptible Escherichia coli ESBL Gentamicin RANDOLPH >=16 ug/ml: Resistant Escherichia coli ESBL Ciprofloxacin RANDOLPH >=4 ug/ml: Resistant Escherichia coli ESBL Levofloxacin RANDOLPH >=8 ug/ml: Resistant Escherichia coli ESBL Nitrofurantoin RANDOLPH 64 ug/ml: Intermediate Escherichia coli ESBL Trimethoprim/Sulfa methoxazol e RANDOLPH >=320 ug/ml: Resistant us Curtis Rodrigues MD LAB MICROBIOLOGY - GENERAL ORDER SONU Final Result [facility] [address] [place] [address], documented in this encounter Visit Diagnoses Diagnosis Urinary tract infection, site not specified documented in this encounter Additional Health Concerns Infection Onset Date Last Indicated Resolved Time 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
--- OUTSIDE RECORDS SUMMARY | 2025-03-26 07:50 | XMS_ITS | Continuity of Care Document ---
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 REVIEW OF PRIOR EXTERNAL NOTES/RESULTS, ORDERING OF TEST(S) CATEGORY 2. ASSESSMENT REQUIRING INDEPENDENT HISTORIAN(S) INCLUDE WHO THE HISTORIAN IS AND RELATION TO PT AND WHY PT IS UNABLE TO GIVE COMPLETE HISTORY ELEMENT 3: RISK (LOW) RISK OF COMPLICATIONS AND/OR MORBIDITY OR MORTALITY OF PATIENT MANAGEMENT PROVIDER MUST THOROUGHLY DOCUMENT ALL OF THE ELEMENTS COVERED [email or web address] Not available 03/24/2025 22:09:30 Plan of Treatment Reminders Order Date Submit Date Provider Last Modified By Organization Details Last Modified Time Details Appointments None recorded. Lab vitamin B12, serum 2024 025 [facility], [address] [place] [address], [place], [address], 16:30:18 C-reactive protein, quantitati ve, serum or plasma 2024 025 [facility], [address] [place] [address], [address], 5 16:30:18 CBC 2024 [facility], [address] [place] [address], [address], 5 16:30:18 CMP, serum or plasma 2024 [facility], [address] [place] [address], [address], 5 16:30:18 ESR (erythrocy te sedimentat ion rate), blood 2024 [facility], [address] [place] [address], [address], 5 16:30:19 TSH, serum or plasma 2024 [facility], [address] [place] [address], [address], 5 16:30:19 iron + TIBC + ferritin, serum 2024 [facility], [address] [place] [address], [address], 5 16:30:18 vitamin D, 25-hydroxy , total, serum 2024 [facility], [address] [place] [address], [address], 5 16:30:19 TSH + free T4, serum 2024 [facility], [address] [place] [address], [address], 5 16:30:18 Referral None recorded. Procedures None recorded. Surgeries None recorded. Imaging None recorded. Medication Orders None recorded. Patient TargetsNo targets recorded. Patient InstructionsNo instructions recorded. Reason for Referral None Reported. Results Created Date Observation Date Name Description Value Unit Range Abnormal Flag Note LastModifiedBy Organization Detail LastModifiedTime Result Notes None recorded. Problems Name Problem SNOMED Code Status Onset Date Resolution Date Notes Provider Name and Address Organization Details Recorded Time Tobacco dependen ce syndrome 19725211 Completed 201704/02/2019 Aba GeeEmma Linares, DO [address] [place], [address], [facility] 9 15:59:49 Harmful pattern of use of alcohol 87259073 Completed 201712/20/2017 Aba GeeEmma Linares DO [address] [place], [address], [facility] 8 11:19:44 Polyp of colon 90976212 Active 2017 Not Available [facility] 3 10:33:08 History of hernia repair 15380343273 109 Active 2017 x2 Not Available [facility] 3 10:33:08 Atrial fibrilla tion 02097682 Active 2017 Not Available [facility] 3 10:33:08 Renal failure syndrome 10536500 Active 2017 Not Available [facility] 3 10:33:08 Osteoart hritis 142784281 Active 2017 Not Available [facility] 3 10:33:08 Glaucoma 72966503 Active 2017 Not Available [facility] 3 10:33:07 Gastroes ophageal reflux disease 665582610 Active 2017 Not Available [facility] 3 10:33:07 Hemorrho ids 60413037 Active 2017 Not Available [facility] 3 10:33:08 Coronary arterios clerosis 16845909 Active 2017 Not Available [facility] 3 10:33:08 Hyperten sive disorder 80833592 Active 2017 Not Available [facility] 3 10:33:07 Obesity 684495683 Active 2017 Not Available [facility] 3 10:33:08 Hyperlip idemia 16975041 Active 2017 Not Available [facility] 3 10:33:08 Abdomina l aortic aneurysm 528482378 Active 03/27 is 3.1cm Not Available [facility] 3 10:33:07 Neurogen ic urinary bladder 674366101 Active 2021 Not Available [facility] 3 10:33:08 Cholecys titis 88478250 Active 2021 Not Available [facility] 3 10:33:08 COVID-19 421906276 Active 2021 Not Available [facility] 3 10:33:08 Neuropat hy 004072999 Active 2021 Not Available [facility] 3 10:33:08 Hypotens ashley episode 16749057 Active 2021 Not Available [facility] 3 10:33:08 Constipa tion 02068740 Active 2021 Not Available [facility] 3 10:33:07 Candidia sis of skin 27546475 Active 2021 Not Available [facility] 3 10:33:08 Acute urinary tract infectio n 739578881 Active 2021 Not Available [facility] 3 10:33:08 Ingrowin g nail of toe of right foot 65925131759 995701 Active 2021 Not Available [facility] 3 10:33:07 Psoriasi s 1688719 Active 2021 Not Available [facility] 3 10:33:08 Cervical spinal cord injury 996112064 Active 2021 Not Available [facility] 3 10:33:08 Parapleg ia 24564181 Active 2022 Not Available [facility] 3 10:33:08 Anxiety 21379795 Active 2022 Not Available [facility] 3 10:33:08 Internal hemorrho ids 89935181 Active 2022 Not Available [facility] 3 10:33:08 Syncope 373285149 Active 2022 Not Available [facility] 3 10:33:07 Pain of left shoulder joint 24541676124 554364 Active 2022 Not Available [facility] 3 10:33:07 Pressure injury of buttock stage I 27364455960 424511 Active 2022 Not Available [facility] 3 10:33:07 Allergic conjunct ivitis 636760523 Active 2022 Not Available [facility] 3 10:33:08 Sepsis caused by Pseudomo og 061531360 Active 2022 Not Available [facility] 3 10:33:08 Urethral strictur e 36352653 Active 2022 Not Available [facility] 3 10:33:08 Skin lesion 57900816 Active 2023 JASMYNE PIZANO [address] [place], [address], [facility] 4 12:27:06 Cataract 741188116 Active 2023 Aba Linares DO [address] [place] [address], [address], [facility] 4 14:23:35 Allergic conjunct ivitis 323258869 Active 2023 JASMYNE PIZANO [address] [place], [address], [facility] 4 13:52:55 Recurren t urinary tract infectio n 677945531 Active 2023 Aba Linares DO [address] [place] [address], [address], [facility] 4 22:30:00 Hyponatr emia 46757139 Active 2023 JASMYNE PIZANO [address] [place], [address], [facility] 4 08:45:39 Iron deficien cy anemia 41419983 Active 2023 JASMYNE PIZANO [address] [place], [address], [facility] 4 08:45:49 Pressure injury of buttock stage IV 17324305262 733037 Active 2023 JASMYNE PIZANO [address] [place], [address], [facility] 4 15:32:31 Clostrid ium difficil e colitis 445448184 Active 2023 JASMYNE PIZANO [address] [place], [address], [facility] 4 15:37:24 Sore throat 285318807 Active 2023 JASMYNE PIZANO [address] [place], [address], [facility] 4 15:38:00 Infectio n by Era albicans 13275745 Active 2023 JASMYNE PIZANO [address] [place], [address], [facility] 4 12:30:56 Depressi ve disorder 35606668 Active 2023 Aba Linares DO [address] [place], [address], [facility] 4 14:06:56 Memory impairme nt 892952651 Active 2023 JASMYNE PIZANO [address] [place], [address], [facility] 4 15:41:42 Bilatera l shoulder joint pain 59556496543 160510 Active 2023 JASMYNE PIZANO [address] [place], [address], [facility] 4 15:48:53 Kidney stone 87521407 Active 2023 JASMYNE PIZANO [address] [place], [address], [facility] 5 15:27:40 Osteomye litis of coccyx 443764207 Active 2023 Aba Linares, DO [address] [place] [address], [address], [facility] 4 15:23:34 Anemia 222692702 Active 2024 Aba Linares, DO [address] [place] [address], [address], [facility] 5 09:04:44 Esophage al dysmotil ity 112420023 Active 2024 JASMYNE PIZANO [address] [place] [address], [address], [facility] 5 15:57:39 Acute diarrhea 329789741 Active 2024 Aba Linares, DO [address] [place] [address], [address], [facility] 5 21:30:44 Diarrhea 49622438 Active 2024 JASMYNE PIZANO [address] [place] [address], [address], [facility] 5 12:34:16 Sepsis 35652501 Active 2024 JASMYNE PIZANO [address] [place] [address], [address], [facility] 5 15:26:36 Pressure injury of right buttock stage III Active 2024 JASMYNE PIZANO [address] [place] [address], [address], [facility] 5 15:27:12 Iron deficien cy anemia due to blood loss 412836117 Active 2024 JASMYNE PIZANO [address] [place] [address], [address], [facility] 09:45:53 Colorect al cancer detected by DNA-base d stool screenin g 989270628 Active 2024 JASMYNE PIZANO [address] [place] [address], [address], [facility] 5 15:52:45 Chronic pain of right upper limb 43486835064 837741 Active 2024 Aba Linares DO [address] [place] [address], [address], [facility] 15:34:38 Fatigue 45125873 Active 2024 Aba Linares DO [address] [place] [address], [address], [facility] 16:26:40 Problem Notes None recorded. Procedures Surgical History Date Name Laterality Status Provider Name and Address Organization Details Recorded Time 025 Corticosteroid Injection completed Aba Linares DO [address] [place] [address], [address], [facility] 03/24/2025 22:08:07 025 Corticosteroid Injection completed Aba Linares DO [address] [place] [address], [address], [facility] 03/10/2025 15:33:35 022 WOUND CARE completed JASMYNE PIZANO [address] [place] [address], [address], [facility] 08/30/2021 14:12:41 022 Joint Injection completed JASMYNE PIZANO [address] [place] [address], [address], [facility] 07/23/2021 14:48:14 020 Corticosteroid Injection completed Aba Linares DO [address] [place] [address], [address], [facility] 01/03/2020 15:39:03 018 Corticosteroid Injection completed Aba Linares DO [address] [place], [address], [facility] 12/04/2017 16:42:28 Imaging Results None recorded. Procedure Notes None recorded. Medical Equipment None Reported. Allergies Allergen ID Allergen Name Allergen Category Reaction Reaction Severity Criticality Documentation Date Start Date Code Code System Note Provider Name and Address Organization Details Recorded Time 8611 tramadol medicatio n hallucina tions Not available Not available 04/23/2024 29333 RxNorm JASMYNE PIZANO [address] [place], [address], [facility] 4 15:09:52 9646 Adhesive agent (substanc e) environme nt,medica tion Not available Not available Not available 03/24/20252024 71079 0007 SNOMED Not Available [employer] - External Data Service - prod 5 04:00:34 Medications Name Sig Start Date Stop Date [...] mg tablet TAKE 1 TABLET BY MOUTH DAILY FOR 7 DAYS active Not Available Not Available No t Available bupropion HCl SR 150 mg tablet,12 hr sustained- release TAKE 1 TABLET BY MOUTH TWICE DAILY 11/06 completed Not Available Not Available Not Available azelastine 0.05 % eye drops Instill 1 drop twice a day by ophthalm ic route for 30 days. active Not Available Not Available No t Available cefprozil 500 mg tablet TAKE 1 TABLET BY [...] fosfomycin tromethami ne 3 gram oral packet 02/04 completed Not Available Not Available Not Available [...] TAKE 1 CAPSULE BY MOUTH TWICE DAILY 02/07 completed Not Available Not Available Not Available levetirace paulino 500 mg tablet TAKE 1 TABLET BY MOUTH TWICE DAILY active Not Available Not Available No t Available senna 8.6 mg tablet TAKE ONE TABLET BY MOUTH TWICE A DAY NEEDED active Not Available Not Available No t Available fluconazol e 200 mg tablet TAKE 1 TABLET BY MOUTH EVERY DAY active Not Available [...] 1 TABLET BY MOUTH TWICE DAILY FOR 7 DAYS 02/04 completed Not Available Not Available Not Available [...] completed Not Available Not Available Not Available oxycodone- acetaminop hen 5 mg-325 mg tablet TAKE 1 TABLET BY MOUTH EVERY 6 HOURS NEEDED FOR PAIN active Not Available Not Available No t Available hydrocorti sone 2.5 % topical cream [...] levetirace paulino 100 mg/mL oral solution TAKE 5 ML BY MOUTH TWICE DAILY active Not Available [...] Not Available Not Available Not Avai labernesto [facility]-Mucil Fiber (aspartame ) 3.4 gram/5.8 gram [...] oral route as directed for 30 days. 2024 active Not Available Not Available [...] completed Not Available Not Available Not Available OneLAX Bisacodyl 10 mg rectal suppositor y UNWRAP AND INSERT 1 SUPPOSIT ORY RECTALLY DAILY AFTER DINNER FOR CONSTIPA TION active Not Available Not Available No t Available Paxlovid 300 mg (150 mg x [...] Not Available Not Available Not Available Vitals None Recorded Social History Question Answer Notes LastModified by Organizat ion Details LastModified Time Tobacco Smoking Status Former Smoker Aba A. Bigda, DO [address] [place] [address], [address], [facility] 04/02/2019 15:39:17 What Was The Date Of Your Most Recent Tobacco Screening? 02/07/2025 [email or web address] Information not available 02/07/2025 Sex: Unknown Functional Status Question Answer Note [...] virus, quadrivalent, preservative 1 completed Not Available [facility] 03/11/2021 16:08:46 Influenza, split virus, quadrivalent, preservative 2 completed Consuelo echeverria [facility] 03/14/2022 07:46:37 COVID-19, mRNA, LNP-S, PF, 100 mcg/0.5mL dose or 50 mcg/0.25mL dose 2 completed Consuelo echeverria [facility] 03/14/2022 07:46:47 zoster, unspecified formulation 2 completed Aba GeeEmma Linares, DO [address] [place] [address], [address], [facility] 07/12/2022 13:59:55 zoster, unspecified formulation 8 completed Fang echeverria [facility] 07/12/2022 14:03:45 Influenza, split virus, quadrivalent, preservative 8 completed Not Available [facility] 03/11/2021 16:08:46 Influenza, split virus, quadrivalent, preservative 9 completed Not Available [facility] 03/11/2021 16:08:46 zoster live 9 completed Not Available [facility] 03/11/2021 16:08:46 Influenza, split virus, quadrivalent, preservative 0 completed Not Available [facility] 03/11/2021 16:08:46 COVID-19, mRNA, LNP-S, PF, 100 mcg/0.5mL dose or 50 mcg/0.25mL dose 1 completed Not Available [facility] 03/11/2021 16:08:46 COVID-19, mRNA, LNP-S, PF, 100 mcg/0.5mL dose or 50 mcg/0.25mL dose 1 completed Not Available [facility] 03/11/2021 16:08:46 Past Encounters Encounter ID Performer Location Encounter Start Date Encounter Closed Date Diagnosis/Indication Diagnosis SNOMED-CT Code Diagnosis ICD10 Code Diagnosis IMO Codes Diagnosis Note [id number] Aba Linares DO [facility] [address] [facility],[place] [address] 03/10/2025 15:07:20 03/10/2025 15:36:17 Chronic pain of right upper limb 1257091879 0489574 M25.511 G89.29 [id number] milana cor t inj will sched left [id number] Aba Linares DO [facility] [address] [place] [address], [place] [address] 03/24/2025 15:50:00 03/25/2025 08:44:33 Pain of left shoulder joint 8198129436 3677203 M25.512 to rosemarie inj Fatigue 74327213 R53.83 [id number] Health Concerns Section Related Observation LastModified by Organization Detai ls LastModified Time None Recorded Concern Status LastModified by Organization Details LastModified Time None Recorded Payers Encounter Date Sequence Insurance Name Policy Number Policy Kahn Covered Member ID Kahn Member ID Guarantor Name 03/24/2025 RADHA Guerrero Notes Date Note Type Note Provider Name a nv Address Organization Details Recorded Time 03/24/2025 text/html ROS as noted in the HPI here for rosemarie injnoted severe muscle atrophy and joint distortion also c/o fatigue staff saying also pt has become very pale Aba Linares DO [address] [place] [address], [address], [facility] 03/24/2025 22:09:54
--- OUTSIDE RECORDS SUMMARY | 2025-03-26 07:50 | XMS_ITS | Clinical Summary ---
Author Organization [facility] Address [address] [place] [address] Care Team Providers Care [place] [facility] Name Role Phone Pcp, No Primary Care Provider Unavailabl e Allergies No known active allergies Medications acetaminophen (TYLENOL) 325 MG tablet Take 650 mg by mouth every 4 (four) hours as needed for mild pain or fever. 1 Active bisacodyl (DULCOLAX) 10 MG suppository Insert 10 mg into the rectum every evening. 1900 Active docusate sodium (COLACE) 100 MG capsule Take 100 mg by mouth 2 (two) times a day. Active gabapentin (NEURONTIN) 300 MG capsule Take 300 mg by mouth 2 (two) times a day. 1 Active melatonin 3 MG Tab tablet Take 9 mg by mouth nightly. 1 Active Multiple Vitamin (Multi-Vitamin) tablet Take 1 tablet by mouth daily. 1 Active rivaroxaban (XARELTO) 20 MG tablet Take 20 mg by mouth every evening with dinner. Active senna (senna) 8.6 MG Tab tablet Take 1 tablet by mouth daily. 1300 Active aluminum-magnes ium hydroxide-simet hicone (aluminum-magne sium hydroxide-simet hicone) suspension Take 30 mL by mouth 4 [...] daytime hours. Active naloxone (NARCAN) 0.4 mg/mL injectionIndica tions:Cholecyst itis Infuse 1 mL (0.4 mg total) into a venous catheter every 5 (five) minutes as needed for opioid reversal or respiratory depression. 1 mL 1 Active psyllium (METAMUCIL) 58.12 % Pack packetIndicatio ns:Cholecystiti s Take 1 packet by mouth daily. 30 packet 1 Active senna-docusate (SENNA-S) 8.6-50 MGIndications:C holecystitis Take 1 tablet by mouth daily. 30 tablet 1 Active nirmatrelvir-ri tonavir (PAXLOVID EMERGENCY USE) therapy packIndications :COVID-19 Take 3 Tablets - 300 mg Nirmatrelvir (2 x 150 mg tablets) with 100 mg Ritonavir (1 x 100 mg tablet) twice daily by mouth for 5 Days. Dispense #20 Nirmatrelvir 150 mg Tablets and #10 Ritonavir 100 mg tablets. 30 tablet 2 Active apixaban (ELIQUIS) 5 MG tablet Take [...] 57 06/17/2021 10:32 AM EST Temperature 36.7 C (98 F) 05/03/2021 8:54 AM EST Respiratory Rate 16 04/16/2021 2:51 PM EST Oxygen Saturation 98% 04/16/2021 2:51 PM EST Inhaled Oxygen Concentration - - Weight 91.2 kg (201 lb) 06/17/2021 10:32 AM EST Height 172.7 cm (5' 8 ) 06/17/2021 10:32 AM EST Body Mass Index 30.56 06/17/2021 10:32 AM EST Plan of Treatment Health Maintenance Due Date Last Done Comments Advance Care Planning 1950 Hepatitis C Virus Screening 1950 DTaP/Tdap/Td Vaccines (1 - Tdap) 08/08/1971 Pneumococcal Vaccines 50+ (1 of 2 - PCV) 08/08/1971 Colonoscopy 1997 RSV Vaccine 50 years and older and Patients (1 - Risk 50-74 years 1-dose series) 2002 Zoster (Shingles) Vaccine (1 of 2) 2002 Influenza Vaccine 12/06/2024 01/20/2021 COVID-19 Vaccine (2024-2 6 season) 2025 03/19/2021, 08/01/2020, 07/04/2020 Hepatitis B Vaccines Aged Out No long er eligible based on patient's age to complete this topic Insurance MEDICARE PART A RADHA GARDNER Advance Directives * Full Code (Latest Code Status on File) Date Activated Date Inactivated Comments 04/11/2021 4:40 AM Care Teams [place] [employer] Relationship Specialty Start Date End Date Pcp, No PCP - General General Medicine 04/10/21
--- OUTSIDE RECORDS SUMMARY | 2025-03-26 07:50 | XMS_ITS | Data Portability ---
Author Organization [facility], Telehealth Patient Home Address [address] [place] [address] Care Team Providers Care Energy Crop Farmer Name Role Phone CHAVEZKIARA Online Facilitator Unavailable Assessment Encounter Date Assessment Date Assessment LastModified by Organization Details LastModified Time 03/10/2025 03/10/2025 [id number] [place] [id number] (MELT SUPERINTENDANT) : JASWINDER LOW MUST MEET 2 OF 3 ELEMENTS: [...] THOROUGHLY DOCUMENT ALL OF THE ELEMENTS COVERED Not available 03/10/2025 15:34:18 03/24/2025 03/24/2025 [id number] [place] [id number] (MELT SUPERINTENDANT) : JASWINDER LOW MUST MEET 2 OF 3 ELEMENTS: [...] THOROUGHLY DOCUMENT ALL OF THE ELEMENTS COVERED Not available 03/24/2025 22:09:30 Plan of Treatment Reminders Order Date Submit Date Provider Last Modified By Organization Details Last Modified Time Details Appointments None record ed. Lab vitami n B12, serum 2024 [facility], [address] [place] [address], [address], 5 16:30:18 C-reac tive protei n, quanti tative , serum or plasma 2024 [facility], [address] [place] [address], [address], 5 16:30:18 CBC 2024 [facility], [address] [place] [address], [address], 5 16:30:18 CMP, serum or plasma 2024 [facility], [address] [place] [address], [address], 5 16:30:18 ESR (eryth rocyte sedime ntatio n rate), blood 2024 [facility], [address] [place] [address], [address], 5 16:30:19 TSH, serum or plasma 2024 [facility], [address] [place] [address], [address], 5 16:30:19 iron + TIBC + ferrit in, serum 2024 [facility], [address] [place] [address], [address], 5 16:30:18 vitami n D, 25-hyd ave, total, serum 2024 [facility], [address] [place] [address], [address], 5 16:30:19 TSH + free T4, serum 2024 025 [facility], [address] [place] [address], [address], 5 16:30:18 CMP, serum or plasma 2024 025 [facility], [address] [place] [address], [address], 5 13:21:07 magnes ium, serum or plasma 2024 025 [facility], [address] [place] [address], [address], 5 16:20:10 CBC w/ auto diff 2024 025 [facility], [address] [place] [address], [address], 5 13:21:07 Referral gastro entero logist referr nguyen 2024 025 [email or web address] 10 [facility], [address] [place], [address], 08:28:54 gastro entero logist referr al - pt suffer ed a forkli ft accide nt, parapl egic, ?if it is affect ing his esopha norma, always has to sip water to swarleeno w anythi ng 2024 025 [email or web address] [facility], [address] [place], [address], 16:46:13 Procedures None record ed. Surgeries None record ed. Imaging None record ed. Medication Orders bisaco dyl 10 mg rectal suppos itory 2024 025 ANIA Stevens [id number] ([facility] 827), [address] [place], [place], [id number], 15:45:31 Metamu cil 3.4 gram/5 .4 gram oral powder 2024 025 ANIA Stevens 41689 ([facility] 827), [address] [place], [place], [id number], 15:45:27 Patient TargetsNo targets recorded. Patient InstructionsNo instructions recorded. Reason for Referral Charge Master Analyst Referral for Esophageal dysmotility ? 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, ?if it is affecting his esophagus, always has to sip water to swallow anything Referring Physician: Ashley Price, Internal Medicine, Encounter Date: 07/15/2024 Charge Master Analyst Referral for Colorectal cancer detected by DNA-based stool screening ?alt to colonoscopy due to pt being paralyzed, ?swallow camera Referring Physician: Ashley Price, Internal Medicine, Encounter Date: 02/07/2025 Results Created Date Observation Date Name Description Value Unit Range Abnormal Flag Note LastModifiedBy Organization Detail LastModifiedTime 10/25/1910/17/2024 CT, abdom en + pelvi s, w/o contr ast No observ ation record ed. [facility] [address] [facility], [place], [address], 10/24/2024 15:06:49 12/08/1912/06/2024 gilda nuous EEG monit oring , jose solison al compo nent; 12-26 hrs, with VEEG (PROC ) No observ ation record ed. [facility] (Medical Records) [address] [place], [address], 12/07/2024 09:15:39 01/01/20 25 12/27/2024 CT, kidne y, w/o contr ast No observ ation record ed. [facility] [address] , [place], [address], 12/31/2024 13:30:43 Result Notes None recorded. Problems Name Problem SNOMED Code Status Onset Date Resolution Date Notes Provider Name and Address Organization Details Recorded Time Tobacco dependen ce syndrome 39556967 Completed 201704/02/2019 Aba Linares DO [address] [place] [address], [address], [facility] 9 15:59:49 Harmful pattern of use of alcohol 25639444 Completed 201712/20/2017 Aba Linares DO [address] [place] [address], [address], [facility] 8 11:19:44 Polyp of colon 91781396 Active 2017 Not Available [facility] 3 10:33:08 History of hernia repair 94528705691 109 Active 2017 x2 Not Available [facility] 3 10:33:08 Atrial fibrilla tion 70776748 Active 2017 Not Available [facility] 3 10:33:08 Renal failure syndrome 37054167 Active 2017 Not Available [facility] 3 10:33:08 Osteoart hritis 229399013 Active 2017 Not Available [facility] 3 10:33:08 Glaucoma 85541662 Active 2017 Not Available [facility] 3 10:33:07 Gastroes ophageal reflux disease 417696538 Active 2017 Not Available [facility] 3 10:33:07 Hemorrho ids 91613549 Active 2017 Not Available [facility] 3 10:33:08 Coronary arterios clerosis 41349561 Active 2017 Not Available [facility] 3 10:33:08 Hyperten sive disorder 76519883 Active 2017 Not Available [facility] 3 10:33:07 Obesity 006753954 Active 2017 Not Available [facility] 3 10:33:08 Hyperlip idemia 54102274 Active 2017 Not Available [facility] 3 10:33:08 Abdomina l aortic aneurysm 178267398 Active 03/27 is 3.1cm Not Available [facility] 3 10:33:07 Neurogen ic urinary bladder 557829228 Active 2021 Not Available [facility] 3 10:33:08 Cholecys titis 55871717 Active 2021 Not Available [facility] 3 10:33:08 COVID-19 276664542 Active 2021 Not Available [facility] 3 10:33:08 Neuropat hy 702685609 Active 2021 Not Available [facility] 3 10:33:08 Hypotens ashley episode 64598461 Active 2021 Not Available [facility] 3 10:33:08 Constipa tion 27212789 Active 2021 Not Available [facility] 3 10:33:07 Candidia sis of skin 61647145 Active 2021 Not Available [facility] 3 10:33:08 Acute urinary tract infectio n 589673024 Active 2021 Not Available [facility] 3 10:33:08 Ingrowin g nail of toe of right foot 01351305694 483501 Active 2021 Not Available [facility] 3 10:33:07 Psoriasi s 1029931 Active 2021 Not Available [facility] 3 10:33:08 Cervical spinal cord injury 941680365 Active 2021 Not Available [facility] 3 10:33:08 Parapleg ia 76867621 Active 2022 Not Available [facility] 3 10:33:08 Anxiety 57569643 Active 2022 Not Available [facility] 3 10:33:08 Internal hemorrho ids 38814375 Active 2022 Not Available [facility] 3 10:33:08 Syncope 426802956 Active 2022 Not Available [facility] 3 10:33:07 Pain of left shoulder joint 51709306192 690254 Active 2022 Not Available [facility] 3 10:33:07 Pressure injury of buttock stage I 82832762018 551508 Active 2022 Not Available [facility] 3 10:33:07 Allergic conjunct ivitis 251577388 Active 2022 Not Available [facility] 3 10:33:08 Sepsis caused by Pseudomo og 719529231 Active 2022 Not Available [facility] 3 10:33:08 Urethral strictur e 23801644 Active 2022 Not Available [facility] 3 10:33:08 Skin lesion 93183784 Active 2023 JASMYNE PIZANO [address] [place], [address], [facility] 4 12:27:06 Cataract 746706027 Active 2023 Aba Linares DO [address] [place] [address], [address], [facility] 4 14:23:35 Allergic conjunct ivitis 547336751 Active 2023 JASMYNE PIZANO [address] [place], [address], [facility] 4 13:52:55 Recurren t urinary tract infectio n 485689609 Active 2023 Aba Linares DO [address] [place], [address], [facility] 4 22:30:00 Hyponatr emia 66357011 Active 2023 JASMYNE PIZANO [address] [place], [address], [facility] 4 08:45:39 Iron deficien cy anemia 84930430 Active 2023 JASMYNE PIZANO [address] [place], [address], [facility] 4 08:45:49 Pressure injury of buttock stage IV 66367722830 503625 Active 2023 JASMYNE PIZANO [address] [place], [address], [facility] 4 15:32:31 Clostrid ium difficil e colitis 411439306 Active 2023 JASMYNE PIZANO [address] [place], [address], [facility] 4 15:37:24 Sore throat 564382140 Active 2023 JASMYNE PIZANO [address] [place], [address], [facility] 4 15:38:00 Infectio n by Era albicans 06304841 Active 2023 JASMYNE PIZANO [address] [place], [address], [facility] 4 12:30:56 Depressi ve disorder 73256294 Active 2023 Aba Linares DO [address] [place], [address], [facility] 4 14:06:56 Memory impairme nt 683238786 Active 2023 JASMYNE PIZANO [address] [place], [address], [facility] 4 15:41:42 Bilatera l shoulder joint pain 47291933691 372348 Active 2023 JASMYNE PIZANO [address] [place], [address], [facility] 4 15:48:53 Kidney stone 94304947 Active 2023 JASMYNE PIZANO [address] [place], [address], [facility] 5 15:27:40 Osteomye litis of coccyx 144942247 Active 2023 Aba Linares, DO [address] [place] [address], [address], [facility] 4 15:23:34 Anemia 051714335 Active 2024 Aba Linares, DO [address] [place] [address], [address], [facility] 5 09:04:44 Esophage al dysmotil ity 922845178 Active 2024 JASMYNE PIZANO [address] [place] [address], [address], [facility] 5 15:57:39 Acute diarrhea 053822111 Active 2024 Aba Linares, DO [address] [place] [address], [address], [facility] 5 21:30:44 Diarrhea 82341191 Active 2024 JASMYNE PIZANO [address] [place] [address], [address], [facility] 5 12:34:16 Sepsis 82989321 Active 2024 JASMYNE PIZANO [address] [place] [address], [address], [facility] 5 15:26:36 Pressure injury of right buttock stage III Active 2024 JASMYNE PIZANO [address] [place] [address], [address], [facility] 15:27:12 Iron deficien cy anemia due to blood loss 302384169 Active 2024 JASMYNE PIZANO [address] [place] [address], [address], [facility] 09:45:53 Colorect al cancer detected by DNA-base d stool screenin g 694820693 Active 2024 JASMYNE PIZANO [address] [place] [address], [address], [facility] 15:52:45 Chronic pain of right upper limb 94297510130 761574 Active 2024 Aba Linares DO [address] [place] [address], [address], [facility] 15:34:38 Fatigue 69714989 Active 2024 Aba Linares DO [address] [place] [address], [address], [facility] 16:26:40 Problem Notes None recorded. Procedures Surgical History Date Name Laterality Status Provider Name and Address Organization Details Recorded Time 025 Corticosteroid Injection completed Aba Linares DO [address] [place] [address], [address], [facility] 03/24/2025 22:08:07 025 Corticosteroid Injection completed Aba Linares DO [address] [place] [address], [address], [facility] 03/10/2025 15:33:35 022 WOUND CARE completed JASMYNE PIZANO [address] [place] [address], [address], [facility] 08/30/2021 14:12:41 022 Joint Injection completed JASMYNE PIZANO [address] [place] [address], [address], [facility] 07/23/2021 14:48:14 020 Corticosteroid Injection completed Aba Linares DO [address] [place], [address], [facility] 01/03/2020 15:39:03 018 Corticosteroid Injection completed Aba Linares DO [address] [place], [address], [facility] 12/04/2017 16:42:28 Imaging Results None recorded. Procedure Notes None recorded. Medical Equipment None Reported. Allergies Allergen ID Allergen Name Allergen Category Reaction Reaction Severity Criticality Documentation Date Start Date Code Code System Note Provider Name and Address Organization Details Recorded Time 8611 tramadol medicatio n hallucina tions Not available Not available 04/23/2024 93254 RxNorm JASMYNE PIZANO [address] [place], [address], [facility] 4 15:09:52 9646 Adhesive agent (substanc e) environme nt,medica tion Not available Not available Not available 03/24/20252024 72812 0007 SNOMED Not Available ania - External [...] Not Available Not Avai lable Flucelvax Quad 7227-6078 (PF) 60 mcg (15 mcg x 4)/0.5 [...] DateTime 07/15/2024 173.36 cm 110/68 mm[Hg] Cris Fam [facility] 07/15/2024 15:09:42 Date Recorded Body height Oxygen saturation Oxygen saturation in Arterial blood by Pulse oximetry Heart rate Systolic And Diastolic Provider Name and Address Organization Details Last Updated DateTime 173.36 cm 98 % 98 % 56 /min 108/70 mm[Hg] TERRENCE RHODES [facility] 5 15:00:12 Social History Question Answer Notes LastModified by Organizat ion Details LastModified Time Tobacco Smoking Status Former Smoker Aba Linares, DO [address] [place] [address], [address], [facility] 04/02/2019 15:39:17 What Was The Date Of Your Most Recent Tobacco Screening? 02/07/2025 [email or web address] Information not available 02/07/2025 Sex: Unknown Functional [...] virus, quadrivalent, preservative 2 completed Consuelo echeverria [facility] 03/14/2022 07:46:37 COVID-19, mRNA, LNP-S, PF, 100 mcg/0.5mL dose or 50 mcg/0.25mL dose 2 completed Consuelo echeverria [facility] 03/14/2022 07:46:47 zoster, unspecified formulation 2 completed Aba Linares DO [address] [place], [address], [facility] 07/12/2022 13:59:55 zoster, unspecified formulation 8 completed Fang echeverria [facility] 07/12/2022 14:03:45 Influenza, split virus, quadrivalent, preservative 8 completed Not Available [facility] 03/11/2021 16:08:46 Influenza, split virus, quadrivalent, preservative 9 completed Not Available [facility] 03/11/2021 16:08:46 zoster live 9 completed Not Available [facility] 03/11/2021 16:08:46 Influenza, split virus, quadrivalent, preservative 0 completed Not Available [facility] 03/11/2021 16:08:46 COVID-19, mRNA, LNP-S, PF, 100 mcg/0.5mL dose or 50 mcg/0.25mL dose 1 completed Not Available [facility] 03/11/2021 16:08:46 COVID-19, mRNA, LNP-S, PF, 100 mcg/0.5mL dose or 50 mcg/0.25mL dose 1 completed Not Available [facility] 03/11/2021 16:08:46 Past Encounters Encounter ID Performer Location Encounter Start Date Encounter Closed Date Diagnosis/Indication Diagnosis SNOMED-CT Code Diagnosis ICD10 Code Diagnosis IMO Codes Diagnosis Note [id number] Aba Linares DO [facility] [address] [facility] [address] 12/04/2017 16:12:34 12/07/2017 10:13:24 Osteoarthritis 493608040 M19.90 cortisone inject well tolerated if not helpful will need mri try advil and tylenol [id number] Aba Linares DO [facility] [address] [facility] [address] 12/20/2017 10:17:49 12/20/2017 11:34:27 Hypertensive disorder 26611447 I10 home bp and office are excellent Osteoarthritis 399248228 M19.90 cortisone inject did great and is feeling much better try advil and tylenol Atrial fibrillation 4943 6004 I48.91 quiet and no palpitatio ns Coronary arteriosclerosis 19417280 I25.10 no cp is asymptomat ic reviewed in detail the need to tonny aware of cp syndromes and the diff variants of cp Hyperlipidemia 38477079 E78.5 highly recco he start a statin med long discussion re this [id number] Aba Linares [facility] [address] [facility], [place] [address] 06/06/2018 15:39:31 06/08/2018 08:53:29 Hypertensive disorder 31535734 I10 home bp and office are fair Atrial fibrillation 4943 6004 I48.91 quiet and no palpitatio ns Hyperlipidemia 30600282 E78.5 highly recco he start a statin med long discussion re this Tobacco de pendence syndrome 88883215 F17.200 still smoking Abdominal aortic aneurysm screening 468229677 Z13.6 Hepatitis C screening 41 8457423 Z11.59 Coronary arteriosclerosis 90906717 I25.10 no cp is asymptomat ic reviewed in detail the need to tonny aware of cp syndromes and the diff variants of cp Obstructiv e sleep apnea syndrome 05727495 G47.33 [id number] Aba Linares [facility] [address] [facility], [address] [place] [address] 04/02/2019 15:33:04 04/02/2019 16:05:16 Adult health examination 755407851 Z00.00 doing great and is careful with eating encouraged to walk etc Atrial fibrillation 4943 6004 I48.91 quiet and no palpitatio ns Gastroesop hageal reflux disease 603212349 K21.9 no issues since quitting diet soda, will follow as needed Hyperlipidemia 09474806 E78.5 highly recco he start a statin med long discussion re this Coronary arteriosclerosis 06315016 I25.10 no cp is asymptomat ic reviewed in detail the need to tonny aware of cp syndromes and the diff variants of cp [id number] Aba Linares [facility] [address] [facility] [address] 10/01/2019 15:49:01 10/01/2019 16:17:23 Atrial fibrillation 03848627 I48.91 quiet and no palpitatio ns Coronary arteriosclerosis 10078867 I25.10 no cp is asymptomat ic reviewed in detail the need to tonny aware of cp syndromes and the diff variants of cp Hypertensive disorder 38 602082 I10 home bp and office are fair [id number] Aba Linares [facility] [address] [facility] [address] 12/13/2019 16:02:42 12/13/2019 17:01:26 Atrial fibrillation 55820357 I48.91 quiet and no palpitatio ns Hypertensive disorder 38 029198 I10 home bp and office are ok but has noticed an ongoing cough so we will stop the lisinopril Cough 00323754 R05 stop lisinopril if cough goes away we will substitute with losartan Left Achil les tendinitis 1842000943 61228 M76.62 will do exercises and stretches and add advil on reg basis and let me know [id number] Aba Linares [facility] [address] [facility] [facility] [address] 01/03/2020 15:05:31 01/03/2020 15:48:43 Osteoarthritis 406661804 M19.90 cortisone inject to the left knee did great and hopefully will be feeling much better try advil and tylenol as needed [id number] Aba Linares [facility] [address] [facility] [address] 03/03/2020 15:22:46 03/03/2020 16:05:24 Hypertensive disorder 14133082 I10 home bp and office are ok but has noticed an ongoing cough so we will stop the lisinopril cough is still just a mild and uncommon event will chk bps at home with a new cuff and will report next visit Atrial fibrillation 4943 6004 I48.91 quiet and no palpitatio ns Abdominal aortic aneurysm screening 426141105 Z13.6 [id number] Aba Linares [facility] [address] [facility],[place] [address] 07/23/2021 14:07:20 07/27/2021 09:06:44 Dysuria 08758557 R30.9 will send out urine Pressure i njury of sacral region of back 430570555 L89.151 will start with silvadene cream Pain of ri ght shoulder joint 3641299137 1116067 M25.511 given cortisone Recurrent urinary tract infection 358115776 N30.81 will start on cranberry tablets Retrolisthesis 964468276 M43.12 C4 to C5, stable Paraplegia 76722518 G82. 22 has fu with neuro [id number] Aba Linares [facility] [address] [facility] [address],[place] [address] 08/30/2021 13:18:11 08/30/2021 14:20:59 Constipation 50835485 K59.01 will hold XRwill continue Miralax and doculax with the patientmon itor bowel movementma y need XR Acute urin kwame tract infection 440403499 N39.0 N10 will need to continue abx, last day is tomorrowur ine is yellow and clear today Ingrowing nail of toe of right foot 1233238570 8665443 L60.0 dressed in officefu with podiatry [id number] Aba Linares [facility] [address] [facility],[place] [address] 02/28/2022 13:59:42 02/28/2022 16:01:10 Atrial fibrillation 55056254 I48.91 quiet and no palpitatio ns Hepatitis C screening 41 2022809 Z11.59 Hyperlipidemia 09070992 E78.5 highly recco he start a statin med long discussion re this Hypertensive disorder 38 641614 I10 home bp and office are ok but has noticed an ongoing cough so we will stop the lisinopril cough is still just a mild and uncommon event will chk bps at home with a new cuff and will report next visit Active or passive immunization 646504833 Z23 patient advised he is due for flu, tdap, pneu & shingles Psoriasis 2191949 L40.9 [id number] Aba Linares [facility] [address] [facility],[place] [address] 05/31/2022 15:22:17 06/01/2022 09:24:55 Pre-surgery evaluation 189374113 Z01.818 The patient was seen in the office today for pre-op evaluation . All medical conditions on patient's problem list were addressed and are currently stable, no interventi on needed at this time. Based on history and physical performed, the patient is cleared for surgery. Cervical s usman cord injury 185666447 S14.109D stable Chronic ob structive pulmonary disease 14816146 J41.1 stable Hypertensive disorder 38 057310 I10 stable [id number] Aba Linares [facility] [address] [facility] [address] 07/12/2022 13:51:01 07/12/2022 14:24:01 Chronic obstructive pulmonary disease 33569590 J41.1 no issue with breathingh ad been seen by pulmonary for the dimas and copd using nasal pillows Hypertensive disorder 38 543489 I10 home bp and office are ok but has noticed an ongoing cough so we will stop the lisinopril cough is still just a mild and uncommon event will chk bps at home with a new cuff and will report next visit Atrial fibrillation 4943 6004 I48.91 quiet and no palpitatio ns Hyperlipidemia 21957558 E78.5 highly recco he start a statin med long discussion re this Paraplegia 29236530 G82. 22 has noted his contractio ns of the upper limb Advance care planning 71 3341743 Z71.89 done Coronary arteriosclerosis 26955750 I25.10 no cp is asymptomat ic reviewed in detail the need to tonny aware of cp syndromes and the diff variants of cp Cervical s usman cord injury 805532231 S14.109D his skin remains free of decubiti at the presentno swallow issues [id number] Aba Linares [facility] [address] [facility],[place] [address] 08/23/2022 10:52:48 08/23/2022 12:00:28 Syncope 860496751 R55 [id number] Aba Linares [facility] [address] [facility], [place] [address] 12/23/2022 11:33:33 12/23/2022 14:20:43 Anxiety 00640236 F41.1 stable Atrial fibrillation 4943 6004 I48.11 stable Constipation 20125847 K5 9.01 no change Gastroesop hageal reflux disease 892884260 K21.9 stable Hemorrhoids 86034154 K64 .1 stable Hyperlipidemia 96468186 E78.2 stable Hypertensive disorder 38 497883 I10 stable [id number] Aba Linares [facility] [address] [facility], [place] [address] 01/27/2023 13:54:48 01/27/2023 15:48:08 Abdominal aortic aneurysm 140591401 I71.40 Atrial fibrillation 4943 6004 I48.11 quiet and no palpitatio ns Chronic ob structive pulmonary disease 82056509 J41.1 no issue with breathingh ad been seen by pulmonary for the dimas and copd using nasal pillows Hyperlipidemia 45022600 E78.2 highly recco he start a statin med long discussion re this Hypertensive disorder 38 761832 I10 home bp and office are ok but has noticed an ongoing cough so we will stop the lisinopril cough is still just a mild and uncommon event will chk bps at home with a new cuff and will report next visit Pressure i njury of buttock stage I 7689230956 3396090 L89.309 wound care nurse 80049 Aba Linares [facility] [address] [facility], [place] [address] 03/27/2023 15:15:03 03/27/2023 16:27:30 Sepsis caused by Pseudomonas 356305815 A41.52 resolved Urethral stricture 61325 002 N35.119 ? anatomical issues Suprapubic urinary catheter in situ 046866011 Z96.[address]. ? correct placement [id number] Aba Linares [facility] [address] [facility], [place] [address] 07/28/2023 13:42:45 07/28/2023 14:42:41 Atrial fibrillation 91232025 I48.11 quiet and no palpitatio ns Hypertensive disorder 38 635419 I10 home bp and office are ok but has noticed an ongoing cough so we will stop the lisinopril cough is still just a mild and uncommon event will chk bps at home with a new cuff and will report next visit Coronary arteriosclerosis 42685356 I25.10 no cp is asymptomat ic reviewed in detail the need to tonny aware of cp syndromes and the diff variants of cp Pressure i njury of buttock stage I 1670084260 0390124 L89.309 wound care nurse treating with silvadene Cataract 590079137 H26.9 [id number] Aba Linares [facility] [address] [facility],[place] [address] 12/18/2023 15:02:22 12/18/2023 16:09:34 Sepsis caused by Pseudomonas 766068997 A41.52 resolved Acute urin kwame tract infection 352559369 N30.81 will set up with Hyponatremia 52844620 E8 7.1 Iron defic iency anemia 86068771 D50.0 will recheck his blood work Suprapubic urinary catheter in situ 588498522 Z96.0 causing the recurrent UTI plus due to the kidney stones Chronic ob structive pulmonary disease 62145076 J41.1 stable At [facility] ed risk for falls 342911049 Z91.81 stable today in office 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 8767822625 9311196 L89.304 will set up with fax number per his Clostrdiego m difficile colitis 863162294 A04.72 will need to be retested after finishing abx Sore throat 999316668 J0 2.8 swab taken [id number] Aba Linares [facility] [address] [facility],[place] [address] 02/14/2024 14:47:38 02/14/2024 15:59:32 Atrial fibrillation 64596724 I48.11 quiet and no palpitatio ns Memory impairment 732264 006 R41.[address] up [address] scan Bilateral shoulder joint pain 5938122754 5690940 M25.511 PRN tramadol Kidney stone 99888809 N2 0.[address] up [address] for uro to get it scheduled sooner Anxiety 76527263 F41.1 d/c bupropion [id number] Aba Linares [facility] [address] [facility], [place] [facility] [place] [address] 04/23/2024 14:49:10 04/23/2024 16:26:14 Paraplegia 75453418 G82.22 stable Memory impairment 358009 [address] Atrial fibrillation 4943 6004 I48.11 will have to change his cardiologi st over [facility] since [facility] doesn't seem clear about the watchman procedure Bilateral shoulder joint pain 4644814671 9190968 M25.511 will set up with small script for the muscle pain 737004 Aba Linares [facility] [address] [facility], [place] [address] 04/29/2024 14:53:46 04/29/2024 15:33:04 Pre-surgery evaluation 223973510 Z01.818 per the 2020 ACC cardiac risk stratifica tion, this patient is deemed a low risk for the cataract surgery under the condition that hIS IV antibiotic is finished treating the coccyx infection caused by a decubitust his should be finished on the of this month . He can not undergo surgery if still receiving ths treatment. 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 8555528021 5104 L89.313 8780382789 seeing wound care every week on Monday Kidney stone 47619877 N2 0.0 [address]171 will set up with CT for uro to get it scheduled sooner [id number] Aba Linares DO [facility] [address] [facility],[place] [address] 02/07/2025 15:21:55 02/07/2025 16:34:58 Constipation 42346632 K59.01 no change Acute diarrhea 394682582 R19.7 99099 will set up with metamucil for bulking did discuss with patient about the colonoscop y which he keeps refusing despite concern about Colorectal cancer detected by DNA-based stool screening 650616653 R19.5 6203960557 agreed to consult with GI to discuss options [id number] Aba Linares [facility] [address] [facility],[place] [address] 03/10/2025 15:07:20 03/10/2025 15:36:17 Chronic pain of right upper limb 3478225531 3628949 M25.511 G89.29 158144 milana cor t inj will sched left [id number] Aba Linares [facility] [address] [facility],[place] [address] 03/24/2025 15:50:00 03/25/2025 08:44:33 Pain of left shoulder joint 5345329402 2740394 M25.512 to rosemarie inj Fatigue 44387898 R53.83 60096754 Health Concerns Section Related Observation LastModified by Organization Detai ls LastModified Time None Recorded Concern Status LastModified by Organization Details LastModified Time None Recorded Advance Directives Directive None Recorded Payers Insurance Date Sequence Insurance Name Policy Number Policy Kahn Covered Member ID Kahn Member ID Guarantor Name 07/08/2022 [facility] [employer] Marcos Guerrero 03/21/[address] [place] [address] [id number] Eran Guerrero [id number] Eran Guerrero 03/11/2025 RADHA Guerrero Notes Date Note Type Note Provider Name a mi Address Organization Details Recorded Time 03/10/202 5 text/html hospital f/u patient has pressure [...] having hypotension due to thishas fu with 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 floor 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, having watchman donehas midodrine, doesn't like the side effects the patient reports that the wound is deepeningthe patient reports that he is having issues swallowing, tends to sip water after everything, the patient the patient reports that he is doing okaythe patient denies depression though he seems like he is depressedthe patient reports that JASMYNE PIZANO [address] [place], [address], [facility] 07/15/2024 16:05:26 5 text/html TCM 7 the patient was admitted to the hospital with for sepsis alertgiven AMS, fever, chills, and general fatigue the patient has a new kidney stone, left side, which will need to be removed the patient is seeing urology tomorrow JASMYNE PIZANO [address] [place], [address], [facility] 11/06/2024 15:33:59 5 text/html ROS as noted in the HPI c/o bilateral shoulder pain and the patient reports that he is having bilateral shoulder painthe patient's right shoulder is worse than the leftthe most conservative treatment would be cortisone injwill set up pt the patient reports that he has been having looser stools, no blood, patient does have dark stool (currently on iron)the patient does have rash on his buttock that is related to the excess wiping they have to do the pt denies abdominal pain right nowdenies nausea, vomitingdenies fever or chillsthe patient reports that he has had the diarrhea for about 3 weekshappens when he is turned in bed by his staffthe patient reports that he has a normal bowel movement in the morning was able to discuss options for GIsince colonoscopy would be hard for the pt?swallowing a camera JASMYNE PIZANO [address] [place], [address], [facility] 02/07/2025 15:57:40 5 text/html Musculoskeletal PainReported by PatientHPIFor location, patient reportspain is not radiating. For severity, patient reportsimproving. For associated symptoms, patient reportsno fever,no weak limbs,no tingling,no numbness of the legs/feet, andno incontinence. For adl (activities of daily living), patient reportsimprove with medication.ROS as noted in the HPI severe right shoulder pain Aba Linares DO [address] [place], [address], [facility] 03/10/2025 15:35:26 5 text/html ROS as noted in the HPI here for rosemarie injnoted severe muscle atrophy and joint distortion also c/o fatigue staff saying also pt has become very pale Aba Linares DO [address] [place], [address], [facility] 03/24/2025 22:09:54
--- OUTSIDE RECORDS SUMMARY | 2025-03-26 07:51 | XMS_ITS | Encounter Summary ---
Author Organization [facility] Address [address] [place] [address] Care Team Providers Care Blade Worker Name Role Phone Aba Linares Primary Care Provider [phone] Encounter Details Date Type Department Care Team ([facility] st Contact Info) Description 03/10/2021 Scanned Document INTERFACE DEFAULT [address] [place] [address] System, Provider Not In Social History [...] documented as of this encounter Care Teams Blade Worker Relationship Specialty Start Date End Date MilagrosAba DO [address] [facility] [place] [address] PCP - General Internal Medicine 03/10/21 documented as of this encounter
--- OUTSIDE RECORDS SUMMARY | 2025-03-26 07:51 | XMS_ITS | Encounter Summary ---
Author Organization [facility] Address [address] [place] [address] Care Team Providers Care Refresh Technician Name Role Phone Aba Linares DO Primary Care Provider [phone] Encounter Details Date Type Department Care Team (Late st Contact Info) Description 11/07/2024 Lab Requisition [facility] - Main Lab [address] [facility] [place] [address] Curtis Rodrigues MD [address] [place] [id number] Urinary tract infection, site not specified Social [...] albicans/du bliniensis( A) 11/10/2024 12:42 PM EDT [facility] Comment: The organism value for this result has been updated. These results have been appended to the previously preliminary verified report. Edited result: Previously reported as Yeast on 11/09/2024 at 0957 EDT. 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
--- OUTSIDE RECORDS SUMMARY | 2025-03-26 07:51 | XMS_ITS | Clinical Summary ---
Author Organization [facility] Address [address] [place] [address] Care Team Providers Care Technical Artist Name Role Phone Unavailable Primary Care Provider [...] TIMES A DAY 0 07/05/2021 Active Baclofen 50471 MCG/20ML SOSY 20 mL by Intrathecal route. [...] Workers Comp Self 1950 [address] [facility] [place], [place] Eran Guerrero Personal/Family Self 1950 [address] [facility], [place] Eran Guerrero TPL/AUTO Self 1950 [address] [place] [address]
--- OUTSIDE RECORDS SUMMARY | 2025-03-26 07:51 | XMS_ITS | Patient Health Record ---
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 Section Notes: He does smoke and drinks occ asionally on the weekends, although he does report a distant history of heavier alcohol use He does smoke and drinks occ asionally on the weekends, although he does report a distant history of heavier alcohol use Problems Problem Type SNOMED Code ICD Code Onset Dates Problem Status W/U Status Risk Notes Problem Benign neoplasm of colon (06363184) Benign neoplasm of colon (211.3) Active confirmed Problem Esophageal reflux (815981624) Esophageal reflux (530.81) Active confirmed Problem Blood in stool (273221600) Blood in stool (578.1) Active confirmed Problem History of malignant neoplasm of colon (660156793) Personal history of malignant neoplasm of large intestine (V10.05) Active confirmed Problem History of polyp of colon (situation) (700623818) Personal history of colonic polyps (V12.72) Active confirmed Problem Screening for malignant neoplasm of colon (965225802) Special screening for malignant neoplasms, colon (V76.51) Active confirmed Plan Of Treatment Future Test Test Name Order Date COLONOSCOPY 04/20/2011 Insurance Providers Payer Name Payer Address Payer Phone Subscriber Number Group Number Insured Name Patient Relationship to Insured Coverage Start Date Coverage End Date [facility] [address] [place] [address] [id number] ADRIAN SANCHEZ Self - patient is the insured Medical (General) History Medical History History ICD Code hypertension mild heart attack several years ago and without any subsequent cardiac problems he denies any history of diabetes, strok e, lung disease nor kidney disease Colon polyps as above
--- OUTSIDE RECORDS SUMMARY | 2025-03-26 07:51 | XMS_ITS | Clinical Summary ---
Author Organization [facility] Address [address] [place] [address] Phone Care Team Providers Care University Relations Vice President Name Role Phone AidenAba olivia Primary Care Provider [phone] Allergies No known active allergies Active Problems [...] 68 03/11/2021 10:53 AM EDT Temperature 36.5 C (97.7 F) 03/11/2021 10:53 AM EDT Respiratory Rate 16 03/11/2021 10:53 AM EDT [...] (2 of 2 - PCV) 12/21/2012 12/22/2011 Influenza vaccine 12/06/2024 03/10/2022, , 01/20/2021, Additional history exists Covid-19 vaccine series ( - 2024- season) 2025 03/10/2022, 08/01/2020, 07/04/2020 RSV Immunization (1 - 1-dose 75+ series) 08/08/2027 Meningococcal B Vaccine Aged Out No l onger eligible based on patient's age to complete this topic Meningococcal Vaccine Aged Out No tasneem kareen eligible based on patient's age to complete this topic Medical Devices Implanted Type Area Physician Office Assistant Device Identifier Shelf Expiration Date Model / Serial / Lot Pin Pin Insurance MEDICARE MEDICARE WORK[employer] [address] [place], [place] [id number] [employer] Advance Directives * Full ACLS (Latest Code Status on File) Date Activated Date Inactivated Comments 03/11/2021 12:12 AM 03/11/2021 3:08 PM Care Teams University Relations Vice President Relationship Specialty Start Date End Date Aba Linares DO [address] [facility] [place] [address] PCP - General Internal Medicine 03/10/21
== END 2025-03-25 13:57 | disposition home or self-care (01) ==
LOC: HO.LAB 13:56
PROVIDERS: PCP Internal Medicine; Visit Provider Internal Medicine
DX: I48.0 Paroxysmal atrial fibrillation (principal); Z79.01 Long term (current) use of anticoagulants
CPT/HCPCS: 36415; 80053; 82306; 82607; 82728; 83540; 84439; 84443; 85025; 85652; 86140; 93005

== ENCOUNTER 2025-03-25 14:27 | Outpatient (AMB) | payer OTHER, SELFPAY ==
--- OUTSIDE RECORDS SUMMARY | 2025-02-24 09:30 | XMS_ITS | Encounter Summary ---
Author Organization [facility] Address [address] [facility] [address] [place] [address] Phone Care Team Providers Care Car Oiler Name Role Phone Aba Linares DO Unavailable AidenAba olivia Primary Care Provider [phone] Reason for Visit * Auth/Cert (Routine) Specialty Diagnoses / Procedures Referred By Ellie t Referred To Contact Referral ID Status Reason Start Date Expiration Date Visits Re quested Visits Authorized [id number] 1 1 Encounter Details Date Type Department Care Team (Late st Contact Info) Description 02/24/2025 10:30 AM EDT Home Care Visit [facility] [address] [place] [address] Janet Byrd RN [address] [place] [address] [email or web address] SN OASIS RECERTIFICATION/FUP Social History Tobacco Use Types Packs/Day Years Used Date Smoking Tobacco: Former Cigarettes 1 41 0 10/01/1978 - 10/02/2019 Smokeless Tobacco: Never Alcohol Use Standard Drinks/Week Comments Never 0 (1 standard drink = 0.6 oz pur e alcohol) none since 08/2020 Home Health Assessment: Transportation Answer Date Recorded [...] as food, clothing, or medical care? No 12/11/2024 In the past 12 months have y ou been in a relationship with a person who hurts, threatens, or tries to control you? No 12/11/2024 Are you denied basic needs s uch as food, clothing, or medical care? No 12/11/2024 In the past 12 months have y ou been in a relationship with a person who hurts, threatens, or tries to control you? No 12/11/2024 Sex and Gender Information Value Date Recorded Sex Assigned at Male 12/03/2022 12:49 PM EDT Legal Sex Male 9:59 PM EDT Gender Identity Male 12/03/2022 12:49 PM EDT Sexual Orientation Not on file documented as of this encounter Last Filed Vital Signs Vital Sign Reading Time Taken Comments Blood Pressure 90/60 02/24/2025 11:41 AM EDT Pulse 60 02/24/2025 11:41 AM EDT Temperature 37.5 C (99.5 F) 02/24/2025 11:41 AM EDT Respiratory Rate 18 02/24/2025 11:41 AM EDT Oxygen Saturation 95% 02/24/2025 11:41 AM EDT Inhaled Oxygen Concentration - - Weight - - Height - - Body Mass Index - - documented in this encounter Plan of Treatment Upcoming Encounters Date Type Department Care Team (Late st Contact Info) Description 03/28/2025 3:00 AM EST Appointment [facility] [address] [place] [address] Shellie Elena, KARENA [address] [place] [address] 03/31/2025 3:30 AM EST Appointment [facility] [address] [place] [address] Shellie Elena RN [address] [place] [address] 04/04/2025 3:00 AM EST Appointment [facility] [address] [place] [address] Shellie Elena RN [address] [place] [address] 04/07/2025 3:00 AM EST Appointment [facility] [address] [place] [address] Shellie Elena RN [address] [place] [address] 04/11/2025 3:00 AM EST Appointment [facility] [address] [place] [address] Shellie Elena RN [address] [place] [address] 04/14/2025 2:00 AM EST Appointment [facility] [address] [place] [address] Shellie Elena RN [address] [place] [address] 04/18/2025 1:30 AM EST Appointment [facility] [address] [place] [address] Shellie Elena RN [address] [place] [address] 04/21/2025 1:30 AM EST Appointment [facility] [address] [place], [place] [phone] Shellie Elena RN [address] [place] [address] 04/25/2025 1:30 AM EST Appointment [facility] [address] [place], [place] [phone] Shellie Elena RN [address] [place] [address] documented as of this encounter Visit Diagnoses Not on filedocumented in this encounter Additional Health Concerns Infection Onset Date Last Indicated Resolved 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 documented as of this encounter Home Health Visit - Care Plan Visit Details Visit Type -SN OASIS RECERTI FICATION/FUP Discipline -Senior Living Problems Problem Description Start Date Status Goals Interve ntions HH - Medication Management Disciplines: All Active Home Health Disciplines, Senior Living 07/03/2024 Active 1 goal linked to scheduled/document [...] Wound Disciplines: All Active Home Health Disciplines, Senior Living 07/03/2024 Active 1 goal linked to scheduled/document ed intervention 1 problem intervention scheduled/document ed in this visit 1 goal intervention scheduled/document ed in this visit HH - Urinary Elimination - Impaired Disciplines: All Active Home Health Disciplines, Senior Living 07/03/2024 Active - 1 problem intervention scheduled/document ed in this visit Goals [...] Planning - Knowledge of No HH - Achieve care management for a safe to home/community discharge from homecare HH - Standard of Care No HH - Demonstrate/verbalize wound care management, wound/lesion will be free from complications HH - Wound No Interventions Intervention Associated Problem/Goal Status Variance Visit Notes HH - I/E medication management: administration, purpose, dosages, preparation, setup, scheduling, side effects, food/drug interactions, and potential complications as indicated Description: Update patient's copy of medication list as needed. Problem:HH - Medication Management Goal:HH - Safe medication management, avoid unnecessary harm related to medication errors and/or interactions Performed HH - Complete medication review every visit and medication reconciliation as indicated. Pharmacy information: Problem:HH - Medication Management Goal:HH - Safe medication management, avoid unnecessary harm related to medication errors and/or interactions Performed HH - Focus of care, teaching completed and plan for next visit Problem:HH - Focus of Care and Teaching Goal:HH - Communication and collaboration to achieve patient goals Performed Primary Clinical Focus this Visit & Instruction Provided: 74 year old male seen for recertification. Alert and oriented x3. Vital signs within baseline. Patient had a low grade fever during assessment. No cloudy urine but small amount of blood coming fro m patient's penis for the past 2-3 days. Appointment set with urologist for evaluation on 02/25/25 at 3 pm. Patient was a daily visit at the beginning of the cert period then was switch to wound vac for every other day and decreased to Mon, Wed, Fri a we ek. Periwound was deteriorating and daily wound care was initiated again until wound clinic appointment on 02/26/25 then will review a follow up order. SN educated caregivers to continue to reposition patient every 1-2 hours to prevent wound from deteri orating. Instruction Provided to: patient and caregiver Response to Instruction/Teaching: Is partially able to teach back topics as evidenced by Verbalizes understanding. Plan for Next Visit Specific Focus & Education Needed: Wound care and teachin g New Orders: None Updated Discharge Plan: Patient will be discharge when available and willing caregiver able to perform wound care. HH - I/E management of care in an urgent or emergency (ER) situation: When to call your Home Care Team/911, ER plans, supplies, evacuation, when to contact local ER officials and how to stay informed Problem:HH - Emergency Planning - Knowledge of Goal:HH - Knowledge of options for managing care in the event of an emergency related situation. Performed HH - Emergency planning assessment: the emergency plan, supplies needed, emergency contact numbers and an evacuation plan were reviewed Description: Patient and Caregiver is/are knowledgeable of emergency plans. Problem:HH - Emergency Planning - Knowledge of Goal:HH - Knowledge of options for managing care in the event of an emergency related situation. Performed HH - Assess vital signs, pulse oximetry, pain, and as indicated, orthostatic vital signs Description: use agency-specific parameters Problem: - Standard of Care Goal:HH - Achieve care management for a safe to home/community discharge from homecare Performed HH - Assess skin integrity Problem: - Standard of Care Goal:HH - Achieve care management for a safe to home/community discharge from homecare Performed - Wound care: Description: Daily wound care to coccyx Vasche 5-10 min then saline Nystatin powder, let dry then apply triad to periwound Aquacel ag to wound bed Foam adhesive wound clinic f/u on 02/26 Problem: - Wound Goal:HH - Demonstrate/verbalize wound care management, wound/lesion will be free from complications Performed HH - Wound care: Description: Verbal order per wound clinic Daily wound care from Mon02/21/25-Tu02/25/25 Coccyx Wound Vasche 5-10 min then saline Nystatin and betamethasone to periwound Aquacel ag to wound bed Foam adhesive Problem:HH - Wound Performed HH - I/E management of urinary elimination/catheter care Description: Flush Nephrostomy catheter with 5cc of NS/water using for injection using sterile technique daily Document that the catheter is not twisted or blocked Maintain drainage bag to gravity. Dressing change as needed if soil or dirty. Problem:HH - Urinary Elimination - Impaired Performed documented in this encounter Care Teams Car Oiler Relationship Specialty Start Date End Date Aba Linares DO [address] [place] [address] [email or web address] PCP - General Internal Medicine 02/14/25 Aba Linares DO [email or web address] Historical LMR Provider 02/23/17 documented as of this encounter Additional Source Comments The information contained in this document represents components of the legal health record. It is not the complete legal health record.[facility]
--- OUTSIDE RECORDS SUMMARY | 2025-03-21 13:00 | XMS_ITS | Encounter Summary ---
Author Organization [facility] Address [address] [place] [address] Phone Care Team Providers Care Helper Metal Hanging Name Role Phone Aba Linares DO Unavailable AidenAba olivia Primary Care Provider [phone] Reason for Visit * Auth/Cert (Routine) Specialty Diagnoses / Procedures Referred By Ellie t Referred To Contact Referral ID Status Reason Start Date Expiration Date Visits Re quested Visits Authorized [id number] 1 1 Encounter Details Date Type Department Care Team (Late st Contact Info) Description 03/21/2025 1:00 PM EST Home Care Visit [facility] [address] [place] [address] Shellie Elena, KARENA [address] [place] [address] [email or web address] SN HOME VISIT Social History Tobacco Use Types [...] Sign Reading Time Taken Comments Blood Pressure 127/76 03/21/2025 1:00 PM EST Pulse 76 03/21/2025 1:00 PM EST Temperature 37 C (98.6 F) 03/21/2025 1:00 PM EST Respiratory Rate 20 03/21/2025 1:00 PM EST Oxygen Saturation 95% 03/21/2025 1:00 PM EST Inhaled Oxygen Concentration - - Weight - - Height - - Body Mass Index - - documented in this encounter Plan of Treatment Upcoming Encounters Date Type Department Care Team (Late st Contact Info) Description 03/28/2025 3:00 AM EST [facility]ointment [facility] [address] [place] [address] Shellie Elena, KARENA [address] [place] [address] 03/31/2025 3:30 AM EST Appointment [facility] [address] [place] [address] Shellie Elena RN [address] [place] [address] 04/04/2025 3:00 AM EST Appointment [facility] [address] [place] [address] Shellie Elena RN [address] [place] [address] 04/07/2025 3:00 AM EST Appointment [facility] [address] [place] [address] Shellie Elena RN [address] [place] [address] 04/11/2025 3:00 AM EST Appointment [facility] [address] [place] [address] Shellie Elena RN [address] [place] [address] 04/14/2025 2:00 AM EST Appointment [facility] [address] [place] [address] Shellie Elena RN [address] [place] [address] 04/18/2025 1:30 AM EST Appointment [facility] [address] [place] [address] Shellie Elena RN [address] [place] [address] 04/21/2025 1:30 AM EST Appointment [facility] [address] [place], [place] [phone] Shellie Elena RN [address] [place] [address] [email or web address] 04/25/2025 1:30 AM EST Appointment [facility] [address] [place], [place] [phone] Shellie Elena RN [address] [place] [address] documented as of this encounter Visit Diagnoses Not on filedocumented in this encounter Additional Health Concerns Infection Onset Date Last Indicated Resolved 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 documented as of this encounter Home Health Visit - Care Plan Visit Details Visit Type -SN HOME VISIT Discipline -Fpc Problems Problem Description Start Date Status Goals Interve ntions HH - Medication Management Disciplines: All Active Home Health Disciplines, Fpc 07/03/2024 Active 1 goal linked to scheduled/document [...] Wound Disciplines: All Active Home Health Disciplines, Fpc 07/03/2024 Active - 3 problem interventions scheduled/document ed in this visit HH - Urinary Elimination - Impaired Disciplines: All Active Home Health Disciplines, Fpc 07/03/2024 Active - 1 problem intervention scheduled/document [...] homecare HH - Standard of Care No Interventions Intervention Associated Problem/Goal Status Variance Visit Notes HH - I/E medication management: administration, purpose, dosages, preparation, setup, scheduling, side effects, food/drug interactions, and potential complications as indicated Description: Update patient's copy of medication list as needed. Problem: - Medication Management Goal:HH - Safe medication management, avoid unnecessary harm related to medication errors and/or interactions Performed - Complete medication review every visit and medication reconciliation as indicated. Pharmacy information: Problem:HH - Medication Management Goal:HH - Safe medication management, avoid unnecessary harm related to medication errors and/or interactions Performed - Focus of care, teaching completed and plan for next visit Problem: - Focus of Care and Teaching Goal: - Communication and collaboration to achieve patient goals Performed Primary Clinical Focus this Visit & Instruction Provided: SNV conducted, small serosanguineous drainage noted from wound, no s/s of an infection, wound vac applied, no issues noted. Pt c/o of pain to sacral area, teaching provided to caregiver of the imp ortance of repositioning chirrs. Vitals WNL, no safety concerns noted at this time. Instruction Provided to: patient and caregiver Response to Instruction/Teaching: Is partially able to teach back topics as evidenced by verbalization. Plan for Next Vi sit Specific Focus & Education Needed: wound care, assess for s/s of an infection, application of wound vac,teaching of the importance of repositioning to prevent pain/skin breakdown New Orders: no new orders Updated Discharge Plan: when wound is heal ed, pt/caregiver can provided wound care HH - I/E management of care in an urgent or emergency (ER) situation: When to call your Home Care Team/911, ER plans, supplies, evacuation, when to contact local ER officials and how to stay informed Problem: - Emergency Planning - Knowledge of Goal: - Knowledge of options for managing care in the event of an emergency related situation. Performed - Emergency planning assessment: the emergency plan, supplies needed, emergency contact numbers and an evacuation plan were reviewed Description: Patient and Caregiver is/are knowledgeable of emergency plans. Problem: - Emergency Planning - Knowledge of Goal: - Knowledge of options for managing care in the event of an emergency related situation. Performed HH - Assess vital signs, pulse oximetry, pain, and as indicated, orthostatic vital signs Description: use agency-specific parameters Problem:HH - Standard of Care Goal:HH - Achieve care management for a safe to home/community discharge from homecare Performed HH - Assess skin integrity Problem:HH - Standard of Care Goal:HH - Achieve care management for a safe to home/community discharge from homecare Performed HH - Wound care: Description: Coccyx Wound 2x/wk (Mon/Mon) Cleanse w/ Saline Skin prep and tegaderm then apply black foam to wound bed 125mmHg continuous Problem:HH - Wound Performed HH - Other: Description: 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 Dressing change as needed if soil or dirty. Problem:HH - Urinary Elimination - Impaired Performed documented in this encounter Care Teams Helper Metal Hanging Relationship Specialty Start Date End Date Aba Linares DO [address] [place] [address] PCP - General Internal Medicine 02/14/25 Aba Linares DO Historical LMR Provider 02/23/17 documented as of this encounter Additional Source Comments The information contained in this document represents components of the legal health record. It is not the complete legal health record.[facility]
--- OUTSIDE RECORDS SUMMARY | 2025-03-21 13:00 | XMS_ITS | Encounter Summary ---
Author Organization [facility] Address [address] [place] [address] Phone Care Team Providers Care Gluing Machine Operator Automatic Name Role Phone Aba Linares DO Unavailable AidenAab olivia Primary Care Provider [phone] Reason for Visit * Auth/Cert (Routine) Specialty Diagnoses / Procedures Referred By Ellie t Referred To Contact Referral ID Status Reason Start Date Expiration Date Visits Re quested Visits Authorized [id number] 1 1 Encounter Details Date Type Department Care Team (Late st Contact Info) Description 03/21/2025 1:00 PM EST Home Care Visit [facility] [address] [place] [phone] Janet Byrd RN [address] [place] [address] [email or web address] SN PRECEPTOR CO-VISIT Social History Tobacco Use Types Packs/Day Years [...] Sign Reading Time Taken Comments Blood Pressure 100/60 03/21/2025 1:47 PM EST Pulse 62 03/21/2025 1:47 PM EST Temperature 36.5 C (97.7 F) 03/21/2025 1:47 PM EST Respiratory Rate 18 03/21/2025 1:47 PM EST Oxygen Saturation 97% 03/21/2025 1:47 PM EST Inhaled Oxygen Concentration - - Weight - - Height - - Body Mass Index - - documented in this encounter Plan of Treatment Upcoming Encounters Date Type Department Care Team (Late st Contact Info) Description 03/28/2025 3:00 AM EST Appointment [facility] [address] [place] [address] Shellie Elena, KARENA [address] [place] [address] 03/31/2025 3:30 AM EST Appointment [facility] [address] [place] [address] Shellie Elena RN [address] [place] [address] 04/04/2025 3:00 AM EST Appointment [facility] [address] [place] [address] Shellie Elena RN [address] [place] [address] 04/07/2025 3:00 AM EST Appointment [facility] [address] [place] [address] Shellie Elena RN [address] [place] [address] 04/11/2025 3:00 AM EST Appointment [facility] [address] [place] [address] Shellie Elena RN [address] [place] [address] 04/14/2025 2:00 AM EST Appointment [facility] [address] [place] [address] Shellie Elena RN [address] [place] [address] 04/18/2025 1:30 AM EST Appointment [facility] [address] [place] [address] Shellie Elena RN [address] [place] [address] 04/21/2025 1:30 AM EST Appointment [facility] [address] [place], [place] [phone] Shellie Elena RN [address] [place] [address] 04/25/2025 1:30 AM EST Appointment [facility] [address] [place], [place] [phone] Shellie Elena RN [address] [place] [address] documented as of this encounter Visit Diagnoses Not on filedocumented in this encounter Additional Health Concerns Infection Onset Date Last Indicated Resolved 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 documented as of this encounter Home Health Visit - Care Plan Visit Details Visit Type -SN PRECEPTOR CO- VISIT Discipline -Usp Problems Problem Description Start Date Status Goals Interve ntions HH - Medication Management Disciplines: All Active Home Health Disciplines, Usp 07/03/2024 Active 1 goal linked to scheduled/document [...] Wound Disciplines: All Active Home Health Disciplines, Usp 07/03/2024 Active - 3 problem interventions scheduled/document ed in this visit HH - Urinary Elimination - Impaired Disciplines: All Active Home Health Disciplines, Usp 07/03/2024 Active - 1 problem intervention scheduled/document [...] harm related to medication errors and/or interactions Scheduled - Complete medication review every visit and medication reconciliation as indicated. Pharmacy information: Problem: - Medication Management Goal: - Safe medication management, avoid unnecessary harm related to medication errors and/or interactions Scheduled - Focus of care, teaching completed and plan for next visit Problem: - Focus of Care and Teaching Goal: - Communication and collaboration to achieve patient goals Scheduled - I/E management of care in an urgent or emergency (ER) situation: When to call your Home Care Team/1, ER plans, supplies, evacuation, when to contact local ER officials and how to stay informed Problem: - Emergency Planning - Knowledge of Goal: - Knowledge of options for managing care in the event of an emergency related situation. Scheduled - Emergency planning assessment: the emergency plan, supplies needed, emergency contact numbers and an evacuation plan were reviewed Description: Patient and Caregiver is/are knowledgeable of emergency plans. Problem: - Emergency Planning - Knowledge of Goal: - Knowledge of options for managing care in the event of an emergency related situation. Scheduled - Assess vital signs, pulse oximetry, pain, and as indicated, orthostatic vital signs Description: use agency-specific parameters Problem: - Standard of Care Goal: - Achieve care management for a safe to home/community discharge from homecare Scheduled - Assess skin integrity Problem: - Standard of Care Goal: - Achieve care management for a safe to home/community discharge from homecare Scheduled - Wound care: Description: Coccyx Wound 2x/wk (Fri/Mon) Cleanse w/ Saline Skin prep and tegaderm then apply black foam to wound bed 125mmHg continuous Problem:HH - Wound Scheduled HH - Other: Description: 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 Dressing change as needed if soil or dirty. Problem:HH - Urinary Elimination - Impaired Scheduled documented in this encounter Care Teams Gluing Machine Operator Automatic Relationship Specialty Start Date End Date Aba Linares DO [address] [place] [address] PCP - General Internal Medicine 02/14/25 Aba Linares DO Historical LMR Provider 02/23/17 documented as of this encounter Additional Source Comments The information contained in this document represents components of the legal health record. It is not the complete legal health record.[facility]
--- OUTSIDE RECORDS SUMMARY | 2025-03-23 14:00 | XMS_ITS | Encounter Summary ---
Author Organization [facility] Address [address] [place] [address] Phone Care Team Providers Care Biology Instructor Name Role Phone Aba Linares DO Unavailable AidenAba olivia DO Primary Care Provider [phone] Reason for Visit * Auth/Cert (Routine) Specialty Diagnoses / Procedures Referred By Ellie t Referred To Contact Referral ID Status Reason Start Date Expiration Date Visits Re quested Visits Authorized [id number] 1 1 Encounter Details Date Type Department Care Team (Late st Contact Info) Description 03/23/2025 2:00 PM EST [facility] [address] [place] [phone] Pam Acuna, RN [address] [place] [address] [email or web address] SN PRN HOME VISIT Social History Tobacco Use Types [...] Appointment [facility] [address] [place], [place] [phone] Shellie Elena RN [address] [place] [address] 03/31/2025 3:30 AM EST Appointment [facility] [address] [place] [address] Shellie Elena RN [address] [place] [address] 04/04/2025 3:00 AM EST Appointment [facility] [address] [place], [place] [phone] Shellie Elena RN [address] [place] [address] 04/07/2025 3:00 AM EST Appointment [facility] [address] [place] [phone] Shellie Elena RN [address] [place] [address] 04/11/2025 3:00 AM EST Appointment [facility] [address] [place] [address] Shellie Elena RN [address] [place] [address] 04/14/2025 2:00 AM EST Appointment [facility] [address] [place] [address] Shellie Elena RN [address] [place] [address] 04/18/2025 1:30 AM EST Appointment [facility] [address] [place] [address] Shellie Elena RN [address] [place] [address] 04/21/2025 1:30 AM EST Appointment [facility] [address] [place] [address] Shellie Elena RN [address] [place] [address] 04/25/2025 1:30 AM EST Appointment [facility] [address] [place] [phone] Shellie Elena RN [address] [place] [address] [email or web address] documented as of this encounter Visit Diagnoses Not on filedocumented in this encounter Additional Health Concerns Infection Onset Date Last Indicated Resolved 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 HH - Pain No Interventions Intervention Associated Problem/Goal Status Variance [...] Clinical Focus this Visit & Instruction Provided: PRN visit for wound vac alarming - vac running at 125mmgh upon arrival; although patient was lying on area; when pt turned in bed to get cleaned up by negative spotter vac begins alarming. Noted bottom of dres sing peeling up. Reinforced with wound vac tape and vac running again with no issues. Due to be changed tomorrow. Instruction Provided to: patient and caregiver Response to Instruction/Teachin g: Is fully able to teach back topics as evidenced by verbal izes understanding. Plan for Next Visit Specific Focus & Education Needed: wound care New Orders: Updated Discharge Plan: - I/E management of care in an [...] an emergency related situation. Performed HH - I/E infection Description: s/s of infection Problem:HH - Infection - Actual or Risk of Goal:HH - Patient will have no new infection; any new infection that occurs will be identified and treated promptly; existing infection will resolve without complication Performed HH - Assess infection risk and s/s Problem:HH - Infection - Actual or Risk of Goal:HH - Patient will have no new infection; any new infection that occurs will be identified and treated promptly; existing infection will resolve without complication Performed HH - Assess vital signs, pulse [...] discharge from homecare Performed HH - Assess pain Problem: - Pain Goal: - Frequency of pain interfering with patient's activity or movement will improve with activity or movement by discharge. 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 It is not the complete legal health record.[facility]
--- OUTSIDE RECORDS SUMMARY | 2025-03-24 10:00 | XMS_ITS | Encounter Summary ---
Author Organization [facility] Address [address] [place] [address] Phone Care Team Providers Care Natural Gas Engineer Name Role Phone Aba Linares DO Unavailable AidenAba olivia Primary Care Provider [phone] Reason for Visit * Auth/Cert (Routine) Specialty Diagnoses / Procedures Referred By Ellie t Referred To Contact Referral ID Status Reason Start Date Expiration Date Visits Re quested Visits Authorized [id number] 1 1 Encounter Details Date Type Department Care Team (Late st Contact Info) Description 03/24/2025 10:00 AM EST [facility] [address] [place] [address] Shellie Elena, KARENA [address] [place] [address] [email or web address] SN HOME VISIT Social History Tobacco Use [...] Sign Reading Time Taken Comments Blood Pressure 96/68 03/24/2025 10:27 AM EST Pulse 60 03/24/2025 10:27 AM EST Temperature 36.6 C (97.8 F) 03/24/2025 10:27 AM EST Respiratory Rate 20 03/24/2025 10:27 AM EST Oxygen Saturation 97% 03/24/2025 10:27 AM EST Inhaled Oxygen Concentration - - Weight - - Height - - Body Mass Index - - documented in this encounter Plan of Treatment Upcoming Encounters Date Type Department Care Team (Late st Contact Info) Description 03/28/2025 3:00 AM EST Appointment [facility] [address] [place] [address] Shellie Elena, KARENA [address] [place] [address] 03/31/2025 3:30 AM EST Appointment [facility] [address] [place] [address] Shellie Elena RN [address] [place] [address] 04/04/2025 3:00 AM EST Appointment [facility] [address] [place] [address] Shellie Elena RN [address] [place] [address] 04/07/2025 3:00 AM EST Appointment [facility] [address] [place] [address] Shellie Elena RN [address] [place] [address] 04/11/2025 3:00 AM EST Appointment [facility] [address] [place] [address] Shellie Elena RN [address] [place] [address] 04/14/2025 2:00 AM EST Appointment [facility] [address] [place] [address] Shellie Elena RN [address] [place] [address] 04/18/2025 1:30 AM EST Appointment [facility] [address] [place] [address] Shellie Elena RN [address] [place] [address] 04/21/2025 1:30 AM EST Appointment [facility] [address] [place], [place] [phone] Shellie Elena RN [address] [place] [address] [email or web address] 04/25/2025 1:30 AM EST Appointment [facility] [address] [place], [place] [phone] Shellie Elena RN [address] [place] [address] [email or web address] documented as of this encounter Visit Diagnoses Not on filedocumented in this encounter Additional Health Concerns Infection Onset Date Last Indicated Resolved 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 documented as of this encounter Home Health Visit - Care Plan Visit Details Visit Type -SN HOME VISIT Discipline -Mcc Problems Problem Description Start Date Status Goals Interve ntions HH - Medication Management Disciplines: All Active Home Health Disciplines, Mcc 07/03/2024 Active 1 goal linked to scheduled/document [...] Wound Disciplines: All Active Home Health Disciplines, Mcc 07/03/2024 Active - 3 problem interventions scheduled/document ed in this visit HH - Urinary Elimination - Impaired Disciplines: All Active Home Health Disciplines, Mcc 07/03/2024 Active - 1 problem intervention scheduled/document [...] this Visit & Instruction Provided: SNV conducted, area excoriated around wound to coccyx, wound bed soaked for 5 minutes with Vashe, wound vac applied, no issues noted. Teaching provided to caregiver on the importance of reposition ing frequently to prevent skin break down, nutrition to promote wound healing. Pt c/o of pain to lower back and shoulder, no safety concerns noted at this time. Instruction Provided to: patient Response to Instruction/Teaching: Is partially able to t each back topics as evidenced by verbalization. 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 It is not the complete legal health record.[facility]
--- OUTSIDE RECORDS SUMMARY | 2025-03-24 10:00 | XMS_ITS | Encounter Summary ---
Author Organization [facility] Address [address] [place] [address] Phone Care Team Providers Care Complex Director Name Role Phone Aba Linares DO Unavailable AidenAba olivia DO Primary Care Provider [phone] Reason for Visit * Auth/Cert (Routine) Specialty Diagnoses / Procedures Referred By Ellie t Referred To Contact Referral ID Status Reason Start Date Expiration Date Visits Re quested Visits Authorized [id number] 1 1 Encounter Details Date Type Department Care Team (Late st Contact Info) Description 03/24/2025 10:00 AM EST [facility] [address] [place] [phone] Janet Byrd RN [address] [place] [address] [email or web address] SN PRECEPTOR CO-VISIT Social History Tobacco Use [...] Appointment [facility] [address] [place], [place] [phone] Shellie Elena RN [address] [place] [address] 03/31/2025 3:30 AM EST Appointment [facility] [address] [place], [place] [phone] Shellie Elena RN [address] [place] [address] 04/04/2025 3:00 AM EST Appointment [facility] [address] [place], [place] [phone] Shellie Elena RN [address] [place] [address] 04/07/2025 3:00 AM EST Appointment [facility] [address] [place] [address] Shellie Elena RN [address] [place] [address] 04/11/2025 3:00 AM EST Appointment [facility] [address] [place] [address] Shellie Elena RN [address] [place] [address] 04/14/2025 2:00 AM EST Appointment [facility] [address] [place] [phone] Shellie Elena RN [address] [place] [address] 04/18/2025 1:30 AM EST Appointment [facility] [address] [place] [phone] Shellie Elena RN [address] [place] [address] 04/21/2025 1:30 AM EST Appointment [facility] [address] [place] [address] Shellie Elena RN [address] [place] [address] 04/25/2025 1:30 AM EST Appointment [facility] [address] [place] [phone] Shellie Elena RN [address] [place] [address] [email or web address] documented as of this encounter Visit Diagnoses [...] related to medication errors and/or interactions Scheduled HH - Complete medication review every visit and medication reconciliation as indicated. Pharmacy information: Problem:HH - Medication Management Goal:HH - Safe medication management, avoid unnecessary harm related to medication errors and/or interactions Scheduled - Focus of care, teaching completed and plan for next visit Problem: - Focus of Care and Teaching Goal:HH - Communication and collaboration to achieve patient goals Scheduled - I/E management of care in an urgent or emergency (ER) situation: When to call your Home Care Team/91, ER plans, supplies, evacuation, when to contact [...] event of an emergency related situation. Scheduled HH - Assess vital signs, pulse oximetry, pain, and as indicated, orthostatic vital signs Description: use agency-specific parameters Problem: - Standard of Care Goal: - Achieve care management for a safe to home/community discharge from homecare Scheduled HH - Assess skin integrity Problem: - Standard of Care Goal:HH - Achieve care management for a safe to home/community discharge from homecare Scheduled HH - Wound care: Description: Coccyx Wound 2x/wk (Fri/Mon) Cleanse w/ Saline Skin prep and tegaderm then apply black foam to wound bed 125mmHg continuous Problem:HH - Wound Scheduled HH - Other: Description: 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 It is not the complete legal health record.[facility]
--- NOTE | 2025-03-25 14:41 | A.OFFVIS_ITS ---
Vital Signs 03/25/25 14:42 Height 6 ft BMI Reason not done Patient refused/unable BP 92/62 Blood Pressure Location Lt brachial Position Sitting Pulse 63 Intake Visit Reasons: 6m follow up Intake Note: 6 month follow-up with ekg Technology Project Manager Required: No Allergies No Known Allergies (No Known Allergies*) Allergy (Verified 08/20/24 14:12) Medication List - Last Reconciled 03/25/25 by Robert Rai MD acetaminophen 650 mg PO Q6H PRN amiodarone 100 mg (1/2 x 200 mg) PO DAILY ascorbic acid (vitamin C) 250 mg PO BID baclofen 10 mg PO TID PRN clobetasol 0.05% 1 appl topical BID CPAP (CPAP Machine/Device) As directed docusate sodium 100 mg PO BID PRN ferrous sulfate 324 mg PO DAILY levetiracetam 500 mg PO BID melatonin 10 mg PO BEDTIME PRN methenamine hippurate 1 g PO BID multivitamin 1 tab PO DAILY nystatin 1 appl topical TID sodium chloride 1,000 mg PO TID trospium 20 mg PO BID HPI Comments Details: Eran comes for follow-up. He is accompanied by his . He had seen Watchman team and consultation September. Watchman was deferred. Patient has had no cardiac symptoms and no prolonged palpitation irregular heartbeat. Remains pretty limited. Continues to have hematuria related to UTI. Takes his medications. [facility] Medical History Paraplegia Seizure disorder Paroxysmal atrial fibrillation Complex sleep apnea syndrome Spasticity Bladder spasm Neurogenic bladder Chronic hypercapnic respiratory failure Restrictive lung mechanics due to neuromuscular disease LATANYA on CPAP CAD (coronary artery disease) HTN (hypertension) Surgical History Chronic suprapubic catheter History of carpal tunnel release Hx of colonoscopy Hx of rotator cuff surgery History of hip surgery Family History Father Diabetes HTN (hypertension) CVD (cardiovascular disease) Mother CVD (cardiovascular disease) Diabetes HTN (hypertension) Brother CVD (cardiovascular disease) Diabetes HTN (hypertension) Social History Household Members: Spouse Housing: House Do you presently have visiting nurse or other home services: Yes (visiting nurses, cnas daily) Alcohol intake: former 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 Patient Tobacco Use Status: Former Tobacco user Tobacco use type: Cigarette Years Smoked: 20 years Advance Directives Date on File: 06/08/23 service: No Review of Systems Const Denies chills, Denies fatigue, Denies fever(s), Denies frequent falls, Denies weakness, Denies weight gain and Denies weight loss ENT Denies dizziness Card Denies chest pain, Denies leg edema, Denies lightheadedness, Denies palpitations, Denies dyspnea, Denies dyspnea on exertion, Denies orthopnea and Denies other (loss of consciousness) Resp Denies cough, Denies dyspnea and Denies dyspnea on exertion GI Denies hematochezia and Denies change in stool character Musc Denies abnormal gait, Denies muscle weakness, Denies numbness, Denies radiating pain into limb and Denies tingling Neuro Denies abnormal gait, Denies dizziness, Denies frequent falls, Denies numbness, Denies tingling and Denies weakness Endo Denies fatigue and Denies palpitations Physical Exam Vital Signs: Last Vital Signs Pulse 63 03/25/25 14:42 BP 92/62 03/25/25 14:42 Const General: cooperative, comfortable and no acute distress Orientation/consciousness: patient oriented x3 HEENT Head: Yes normal to inspection Resp Effort & Inspection: normal respiratory effort Auscultation: clear to auscultation bilaterally, no rales, no rhonchi and no wheezes Cardio Rate: regular rate Rhythm: regular rhythm Heart sounds: S1 normal heart sound present, S2 normal heart sound present, no murmurs and no rubs Neuro General: patient oriented x3 Extrem General: No no pedal edema and No calf tenderness Psych Appearance: grossly normal Mental Status: mental status grossly normal Office Procedures EKG Details: EKGs shows normal sinus rhythm with normal EKGs 16699-[id number], Complete Assessment & Plan Assessment & Plan (1) Paroxysmal atrial fibrillation: Code(s): I48.0 - Paroxysmal atrial fibrillation Category: Medical Plan: Paroxysmal atrial fibrillation which has remained suppressed on low-dose amiodarone therapy. Was induced by medical issues but has had atrial fibrillation in the past without medical issues. Currently very limited functionality related to his quadriplegia. Continue amiodarone therapy. Discuss with him the findings of consult. Will readdress this issue with the Watchman consult team. At this point time he is currently off all oral anticoagulation continues to have issues with hematuria related to his UTI. Avoidance of stimulants was discussed. Blood pressure appears to be well controlled without any medications. Will follow up in the clinic in 1 year's time, sooner PRN. Thank you for allowing me to partake in his care Coding Level of Care Code Est Pt Level 4 (56350) Complex EM visit Add On G2211 Diagnoses Paroxysmal atrial fibrillation I48.0 CPT Codes EKG - CPT: 57807-[id number], Complete ([id number])
[2025-03-25 14:42] VITALS: BP 92/62; PULSE 63
--- OUTSIDE RECORDS SUMMARY | 2025-03-26 11:55 | XMS_ITS | Encounter Summary ---
Author Organization [facility] Address [address] [place] [address] [place] [address] Phone Care Team Providers Care Molecular Technologist Name Role Phone AidenAba olivia DO Unavailable Man Ambriz MD Unavailable [phone] Bigda, Aba A DO Primary Care Provider [phone] Bigda, Aba A DO Primary Care Provider [phone] Encounter Details Date Type Department Care Team (Late Contact Info) Description 12/22/2020 Procedure Pass [facility] Periop [address] [place] [address] Social History Tobacco Use Types Packs/Day Years [...] Encounters Date Type Department Care Team (Late Contact Info) Description 03/28/2025 3:00 AM EST Appointment [facility] [address] [place] [phone] Shellie Elena RN [address] [place] [address] [email or web address] 03/31/2025 3:30 AM EST Appointment [facility] [address] [place] [address] Shellie Elena RN [address] [place] [address] [email or web address] 04/04/2025 3:00 AM EST Appointment [facility] [address] [place] [address] Shellie Elena RN [address] [place] [address] [email or web address] 04/07/2025 3:00 AM EST Appointment [facility] [address] [place] [address] Shellie Elena RN [address] [place] [address] [email or web address] 04/11/2025 3:00 AM EST Appointment [facility] [address] [place] [address] Shellie Elena RN [address] [place] [address] [email or web address] 04/14/2025 2:00 AM EST Appointment [facility] [address] [place] [address] Shellie Elena RN [address] [place] [address] [email or web address] 04/18/2025 1:30 AM EST Appointment [facility] [address] [place] [address] Shellie Elena RN [address] [place] [address] [email or web address] 04/21/2025 1:30 AM EST Appointment [facility] [address] [place], [place] [phone] Shellie Elena, KARENA [address] [place] [address] 04/25/2025 1:30 AM EST Appointment [facility] [address] [place], [place] [phone] Shellie Elena RN [address] [place] [address] documented as of this encounter Visit Diagnoses Not on filedocumented in this encounter Additional Health Concerns Infection Onset Date Last Indicated Resolved 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 It is not the complete legal health record.[facility]
--- OUTSIDE RECORDS SUMMARY | 2025-03-26 11:56 | XMS_ITS | Encounter Summary ---
Author Organization [facility] Address [address] [place] [address] [place] [address] Phone Care Team Providers Care Stripper Apprentice Name Role Phone AidenAba olivia DO Unavailable Man Ambriz MD Unavailable [phone] Bigda, Aba A DO Primary Care Provider [phone] Bigda, Aba A DO Primary Care Provider [phone] Encounter Details Date Type Department Care Team (Late st Contact Info) Description 12/09/2020 Procedure Pass [facility] [place], [address] [address] [facility], 6th [place] [address] Social History Tobacco Use Types Packs/Day Years [...] on file documented as of this encounter Functional Status * Calculated C-SSRS Risk Score (Lifetime/Recent) Answer Date of Assessment Author No Risk Indicated 12/11/2020 5:45 AM EDT Elsi Fonseca RN * [place] Suicide Severity Rating Scale (Screener/Recent Self-Report) Question Answer Date of Assessment Author 1. Wish to be (Past 1 Month) No 12/11/2020 5:45 AM EDT Jani Cyr RN 2. Non-Specific Active Suici isidro Thoughts (Past 1 Month) No 12/11/2020 5:45 AM EDT Marlen Cyr RN 6. Suicidal Behavior (Lifetime) No 5:45 AM EDT Elsi Cyr RN documented as of this encounter Plan of Treatment Upcoming Encounters Date Type Department Care Team (Late st Contact Info) Description 03/28/2025 3:00 AM EST Appointment [facility] [address] [place] [phone] Shellie Elena RN [address] [place] [address] 03/31/2025 3:30 AM EST Appointment [facility] [address] [place] [phone] Shellie Elena RN [address] [place] [address] 04/04/2025 3:00 AM EST Appointment [facility] [address] [place] [address] Shlelie Elena RN [address] [place] [address] 04/07/2025 3:00 AM EST Appointment [facility] [address] [place] [phone] Shellie Elena RN [address] [place] [address] 04/11/2025 3:00 AM EST Appointment [facility] [address] [place] [phone] Shellie Elena RN [address] [place] [address] 04/14/2025 2:00 AM EST Appointment [facility] [address] [place] [phone] Shellie Elena RN [address] [place] [address] 04/18/2025 1:30 AM EST Appointment [facility] [address] [place] [phone] Shellie Elena RN [address] [place] [address] 04/21/2025 1:30 AM EST Appointment [facility] [address] [place] [phone] Shellie Elena RN [address] [place] [address] 04/25/2025 1:30 AM EST Appointment [facility] [address] [place] [phone] Shellie Elena RN [address] [place] [address] documented as of this encounter Visit Diagnoses Not on filedocumented in this encounter Additional Health Concerns Infection Onset Date Last Indicated Resolved Time CoV-Risk Comment:Per note documentation 12/09/2020 12/09/2020 9:31 PM EDT 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 documented as of this encounter Care Teams Stripper Apprentice Relationship Specialty Start Date End Date Aba Linares DO PCP - General 05/11/17 02/13/25 Aba Linares DO [address] [place] [address] PCP - General Internal Medicine 02/14/25 Aba Linares DO Historical LMR Provider 02/23/17 Man Ambriz MD [address] [place] [address] Historical LMR Provider 02/23/17 documented as of this encounter Additional Source Comments The information contained in this document represents components of the legal health record. It is not the complete legal health record.[facility]
--- OUTSIDE RECORDS SUMMARY | 2025-03-26 11:57 | XMS_ITS | Encounter Summary ---
Author Organization [facility] Address [address] [place] [address] [place] [address] Phone Care Team Providers Care Director Of Casework Department Name Role Phone AidenAba olivia DO Unavailable Man Ambriz MD Unavailable [phone] Bigda, Aba A DO Primary Care Provider [phone] Bigda, Aba A DO Primary Care Provider [phone] Encounter Details Date Type Department Care Team (Late st Contact Info) Description 12/09/2020 Procedure Pass [facility] [place] [address] 55 [facility], 6th [place] [address] Social History Tobacco Use Types Packs/Day Years [...] 5:45 AM EDT Elsi Fonseca RN * [place] Suicide Severity Rating Scale (Screener/Recent Self-Report) Question [...] EST Appointment [facility] [address] [place] [phone] Shellie Elena RN [address] [place] [address] 03/31/2025 3:30 AM EST Appointment [facility] [address] [place] [phone] Shellie Elena RN [address] [place] [address] 04/04/2025 3:00 AM EST Appointment [facility] [address] [place] [address] Shellie Elena RN [address] [place] [address] 04/07/2025 3:00 AM EST Appointment [facility] [address] [place] [phone] Shellie Elena RN [address] [place] [address] 04/11/2025 3:00 AM EST Appointment [facility] [address] [place] [phone] Shellie Elena RN [address] [place] [address] 04/14/2025 2:00 AM EST Appointment [facility] [address] [place] [phone] Shellie Elena RN [address] [place] [address] 04/18/2025 1:30 AM EST Appointment [facility] [address] [place] [phone] Shellie Elena RN [address] [place] [address] 04/21/2025 1:30 AM EST Appointment [facility] [address] [place] [phone] Shellie Elena RN [address] [place] [address] 04/25/2025 1:30 AM EST Appointment [facility] [address] [place] [phone] Shellie Elena RN [address] [place] [address] documented as of this encounter Visit Diagnoses Not on filedocumented in this encounter Additional Health Concerns Infection Onset Date Last Indicated Resolved Time CoV-Risk Comment:Per note documentation 12/09/2020 12/09/2020 9:31 PM EDT 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 documented as of this encounter Care Teams Director Of Casework Department Relationship Specialty Start Date End Date Aba Linares DO PCP - General 05/11/17 02/13/25 Aba Linares DO [address] [place] [address] PCP - General Internal Medicine 02/14/25 Aba Linares DO Historical LMR Provider 02/23/17 Man Ambriz MD [address] [place] [address] Historical LMR Provider 02/23/17 documented as of this encounter Additional Source Comments The information contained in this document represents components of the legal health record. It is not the complete legal health record.[facility]
--- OUTSIDE RECORDS SUMMARY | 2025-03-26 11:58 | XMS_ITS | Encounter Summary ---
Author Organization [facility] Address [address] [place] [address] [place] [address] Phone Care Team Providers Care Convention Services Manager Name Role Phone Aba Linares DO Unavailable Man Ambriz MD Unavailable [phone] Bigda, Aba A DO Primary Care Provider [phone] Bigda, Aba A DO Primary Care Provider [phone] Encounter Details Date Type Department Care Team (Late st Contact Info) Description 11/13/2020 Procedure Pass [facility] Imaging - RF/IR 55 [facility], 2nd [place] [address] Social History Tobacco Use Types Packs/Day Years [...] Description 03/28/2025 3:00 AM EST Appointment [facility] [address] [place] [phone] Shellie Elena RN [address] [place] [address] [email or web address] 03/31/2025 3:30 AM EST Appointment [facility] [address] [place] [phone] Shellie Elena RN [address] [place] [address] [email or web address] 04/04/2025 3:00 AM EST Appointment [facility] [address] [place] [address] Shellie Elena RN [address] [place] [address] [email or web address] 04/07/2025 3:00 AM EST Appointment [facility] [address] [place] [phone] Shellie Elena RN [address] [place] [address] [email or web address] 04/11/2025 3:00 AM EST Appointment [facility] [address] [place] [address] Shellie Elena RN [address] [place] [address] [email or web address] 04/14/2025 2:00 AM EST Appointment [facility] [address] [place] [address] Shellie Elena RN [address] [place] [address] [email or web address] 04/18/2025 1:30 AM EST Appointment [facility] [address] [place] [address] Shellie Elena RN [address] [place] [address] [email or web address] 04/21/2025 1:30 AM EST Appointment [facility] [address] [place], [place] [phone] Shellie Elena RN [address] [place] [address] 04/25/2025 1:30 AM EST Appointment [facility] [address] [place], [place] [phone] Shellie Elena RN [address] [place] [address] documented as of this encounter Visit Diagnoses Not on filedocumented in this encounter Additional Health Concerns Infection Onset Date Last Indicated Resolved Time CoV-Risk Comment:Per note documentation 12/09/2020 12/09/2020 9:31 PM EDT 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 documented as of this encounter Care Teams Convention Services Manager Relationship Specialty Start Date End Date Aba Linares DO PCP - General 05/11/17 02/13/25 Aba Linares DO [address] [place] [address] [email or web address] PCP - General Internal Medicine 02/14/25 Aba Linares DO [email or web address] Historical LMR Provider 02/23/17 Man Ambriz MD [address] [place] [address] Historical LMR Provider 02/23/17 documented as of this encounter Additional Source Comments The information contained in this document represents components of the legal health record. It is not the complete legal health record.[facility]
--- OUTSIDE RECORDS SUMMARY | 2025-03-26 11:59 | XMS_ITS | Encounter Summary ---
Author Organization [facility] Address [address] [place] [address] [place] [address] Phone Care Team Providers Care Seismology Technical Officer Name Role Phone Aba Linares DO Unavailable Man Ambriz MD Unavailable [phone] Bigda, Aba A DO Primary Care Provider [phone] Bigda, Aba A DO Primary Care Provider [phone] Encounter Details Date Type Department Care Team (Late st Contact Info) Description 12/08/2020 Procedure Pass [facility] [place] Imaging - RF/IR [address] [facility], 2nd [place] [address] Social History Tobacco Use Types Packs/Day Years [...] 5:45 AM EDT Elsi Fonseca RN * [place] Suicide Severity Rating Scale (Screener/Recent Self-Report) Question [...] Info) Description 03/28/2025 3:00 AM EST Appointment [facility] [address] [place] [phone] Shellie Elena RN [address] [place] [address] [email or web address] 03/31/2025 3:30 AM EST Appointment [facility] [address] [place] [phone] Shellie Elena RN [address] [place] [address] [email or web address] 04/04/2025 3:00 AM EST Appointment [facility] [address] [place] [address] Shellie Elena RN [address] [place] [address] [email or web address] 04/07/2025 3:00 AM EST Appointment [facility] [address] [place] [phone] Shellie Elena RN [address] [place] [address] [email or web address] 04/11/2025 3:00 AM EST Appointment [facility] [address] [place] [phone] Shellie Elena RN [address] [place] [address] 04/14/2025 2:00 AM EST Appointment [facility] [address] [place] [phone] Shellie Elena RN [address] [place] [address] 04/18/2025 1:30 AM EST Appointment [facility] [address] [place] [phone] Shellie Elena RN [address] [place] [address] 04/21/2025 1:30 AM EST Appointment [facility] [address] [place] [phone] Shellie Elena RN [address] [place] [address] 04/25/2025 1:30 AM EST Appointment [facility] [address] [place] [phone] Shellie Elena RN [address] [place] [address] documented as of this encounter Visit Diagnoses Not on filedocumented in this encounter Additional Health Concerns Infection Onset Date Last Indicated Resolved Time CoV-Risk Comment:Per note documentation 12/09/2020 12/09/2020 9:31 PM EDT 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 It is not the complete legal health record.[facility]
--- OUTSIDE RECORDS SUMMARY | 2025-03-26 12:00 | XMS_ITS | Encounter Summary ---
Author Organization [facility] Address [address] [place] [address] [place] [address] Phone Care Team Providers Care Explosive Man Name Role Phone Aba Linares DO Unavailable Bigda, Aba A DO Primary Care Provider Bigda, Aba A DO Primary Care Provider Encounter Details Date Type Department Care Team (Latest Contact Info) Description 01/15/2025 Ancillary Orders Curtis Rodrigues MD [facility], [place] [address] [email or web address] Social History Tobacco Use Types Packs/Day Years [...] Date of Assessment Author No Risk Indicated 01/15/2025 1:31 PM EDT Jovana Anguiano RN * [place] Suicide Severity Rating Scale (Screener/Recent Self-Report) Question Answer Date of Assessment Author 2. Non-Specific Active Suici isidro Thoughts (Past 1 Month) No 01/15/2025 1:31 PM EDT Daisha Anglin RN documented as of this encounter Plan of Treatment Upcoming Encounters Date Type Department Care Team (Late st Contact Info) Description 03/28/2025 3:00 AM EST Appointment [facility] [address] [place], [place] [phone] Shellie Elena RN [address] [place] [address] 03/31/2025 3:30 AM EST Appointment [facility] [address] [place], [place] [phone] Shellie Elena RN [address] [place] [address] 04/04/2025 3:00 AM EST Appointment [facility] [address] [place] [address] Shellie Elena RN [address] [place] [address] 04/07/2025 3:00 AM EST Appointment [facility] [address] [place] [address] Shellie Elena RN [address] [place] [address] 04/11/2025 3:00 AM EST Appointment [facility] [address] [place] [address] Shellie Elena RN [address] [place] [address] 04/14/2025 2:00 AM EST Appointment [facility] [address] [place] [address] Shellie Elena, KARENA [address] [place] [address] 04/18/2025 1:30 AM EST Appointment [facility] [address] [place] [phone] Shellie Elena RN [address] [place] [address] 04/21/2025 1:30 AM EST Appointment [facility] [address] [place] [address] Shellie Elena RN [address] [place] [address] 04/25/2025 1:30 AM EST Appointment [facility] [address] [place] [phone] Shellie Elena, KARENA [address] [place] [address] documented as of this encounter Visit Diagnoses Not on filedocumented in this encounter Additional Health Concerns Infection Onset Date Last Indicated Resolved 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 It is not the complete legal health record.[facility]
--- OUTSIDE RECORDS SUMMARY | 2025-03-26 12:00 | XMS_ITS | Encounter Summary ---
Author Organization [facility] Address [address] [place] [address] [place] [address] Phone Care Team Providers Care Hop Separator Name Role Phone AidenAba olivia DO Unavailable Man Ambriz MD Unavailable [phone] Bigda, Aba A DO Primary Care Provider [phone] Bigda, Aba A DO Primary Care Provider [phone] Encounter Details Date Type Department Care Team (Late st Contact Info) Description 12/22/2020 Procedure Pass [facility] [address] [place] [address] Social History Tobacco Use Types Packs/Day Years [...] Appointment [facility] [address] [place] [address] Shellie Elena RN [address] [place] [address] [email or web address] 03/31/2025 3:30 AM EST Appointment [facility] [address] [place] [phone] Shellie Elena RN [address] [place] [address] 04/04/2025 3:00 AM EST Appointment [facility] [address] [place] [address] Shellie Elena RN [address] [place] [address] [email or web address] 04/07/2025 3:00 AM EST Appointment [facility] [address] [place] [address] Shellie Elena RN [address] [place] [address] [email or web address] 04/11/2025 3:00 AM EST Appointment [facility] [address] [place] [address] Shellie Elena RN [address] [place] [address] [email or web address] 04/14/2025 2:00 AM EST Appointment [facility] [address] [place] [address] Shellie Elena RN [address] [place] [address] [email or web address] 04/18/2025 1:30 AM EST Appointment [facility] [address] [place] [phone] Shellie Elena RN [address] [place] [address] [email or web address] 04/21/2025 1:30 AM EST Appointment [facility] [address] [place] [address] Shellie Elena RN [address] [place] [address] [email or web address] 04/25/2025 1:30 AM EST Appointment [facility] [address] [place] [address] Shellie Elena RN [address] [place] [address] documented as of this encounter Visit Diagnoses Not on filedocumented in this encounter Additional Health Concerns Infection Onset Date Last Indicated Resolved 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 It is not the complete legal health record.[facility]
--- OUTSIDE RECORDS SUMMARY | 2025-03-26 12:00 | XMS_ITS | Encounter Summary ---
Author Organization [facility] Address [address] [place] [address] [place] [address] Phone Care Team Providers Care Septic Tank Installer Name Role Phone Aba Linares DO Unavailable Bigda, Aba A DO Primary Care Provider [phone] Bigda, Aba A DO Primary Care Provider [phone] Encounter Details Date Type Department Care Team (Late st Contact Info) Description 01/15/2025 Procedure Pass [place] Admitting Dept - Virtual Department [address] [place], [place] [phone] Social History Tobacco Use Types Packs/Day Years [...] 1:31 PM EDT Jovana Anguiano RN * [place] Suicide Severity Rating Scale (Screener/Recent Self-Report) Question Answer Date of Assessment Author 2. Non-Specific Active Suici isidro Thoughts (Past 1 Month) No 01/15/2025 1:31 PM EDT Daisha Anglin RN documented as of this encounter Plan of Treatment Upcoming Encounters Date Type Department Care Team (Late st Contact Info) Description 03/28/2025 3:00 AM EST Appointment [facility] [address] [place], [place] [phone] Shellie Elena RN [address] [place] [address] 03/31/2025 3:30 AM EST Appointment [facility] [address] [place], [place] [phone] Shellie Elena RN [address] [place] [address] 04/04/2025 3:00 AM EST Appointment [facility] [address] [place] [address] Shellie Elena RN [address] [place] [address] 04/07/2025 3:00 AM EST Appointment [facility] [address] [place] [address] Shellie Elena RN [address] [place] [address] 04/11/2025 3:00 AM EST Appointment [facility] [address] [place] [address] Shellie Elena RN [address] [place] [address] 04/14/2025 2:00 AM EST Appointment [facility] [address] [place] [address] Shellie Elena RN [address] [place] [address] 04/18/2025 1:30 AM EST Appointment [facility] [address] [place] [address] Shellie Elena RN [address] [place] [address] 04/21/2025 1:30 AM EST Appointment [facility] [address] [place] [address] Shellie Elena RN [address] [place] [address] 04/25/2025 1:30 AM EST Appointment [facility] [address] [place] [address] Shellie Elena, KARENA [address] [place] [address] documented as of this encounter Visit Diagnoses Not on filedocumented in this encounter Additional Health Concerns Infection Onset Date Last Indicated Resolved 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 It is not the complete legal health record.[facility]
--- OUTSIDE RECORDS SUMMARY | 2025-03-26 12:01 | XMS_ITS | Clinical Summary ---
Author Organization [facility] Address [address] [place] [address] [place] [phone] Phone Care Team Providers Care Roll Examiner Name Role Phone Aba Linares Unavailable Aba Linares Marlen Primary Care Provider [phone] Allergies Active Allergy Reactions Criticality Noted Date Comments Adhesive 01/14/2025 Tramadol Hallucinations High 08/28/2024 Medications bisacodyl (DULCOLAX) [address] 10 mg rectally daily. Active docusate sodium (COLACE) 100 MG capsule Take 100 mg by mouth nightly at bedtime. Active acetaminophen (TYLENOL) 325 mg tablet Take 2 tablets (650 mg total) by mouth every 6 (six) hours as needed for mild pain. 0 1 Active baclofen, PF, (GABLOFEN) 1,000 mcg/mL INTRATHECAL syringe 20 mL by Intrathecal route continuous. 1 Active nystatin (NYSTOP) powder Apply 1 application topically 2 (two) times a day. 15 g 1 Active multivitamin per tablet Take 1 tablet by mouth daily. 1 Active pantoprazole (PROTONIX) 40 MG tablet Take 40 mg by mouth 2 (two) times a day. Active ascorbic acid, vitamin C, (VITAMIN C) 250 MG tablet Take 500 mg by mouth 2 (two) times a day. 5 Active methenamine (HIPREX) 1 gram tablet Take 1 g by mouth 2 (two) times a day. Active melatonin 10 mg TbER Take 10 mg by mouth nightly at bedtime as needed. 3 Active midodrine (PROAMATINE) 10 MG tablet Take 10 mg by mouth as needed (sys bp <90). 5 Active ferrous gluconate 324 mg (38 mg elemental) tablet Take 1 tablet (324 mg total) by mouth daily. 30 tablet 3 Active lactobacillus rhamnosus, GG, (CULTURELLE) 10 billion cell capsule Take 1 capsule by mouth daily. 10 capsule 3 Active Additional Information Patient not taking.Reported on 01/15/2025 amiodarone (PACERONE) 200 MG tablet Take 100 mg by mouth 2 (two) times a day. 5 Active diazePAM (VALIUM) 2 MG tablet Take 2 mg by mouth 2 (two) times a day as needed for anxiety (pain). 5 Active levETIRAcetam (KEPPRA) 100 mg/mL solution Take 5 mL by mouth 2 (two) times a day. 5 Active senna 8.6 mg tablet Take 1 tablet by mouth 2 (two) times a day as needed for constipation. 5 Active sodium chloride 1,000 mg tablet Take 1 g by mouth 3 (three) times a day. 5 Active miconazole 2 % cream APPLY TO PERIWOUND TWICE DAILY Active baclofen (LIORESAL) 10 MG tablet Take 10 mg by mouth 3 (three) times a day. 5 Active lactobacillus rhamnosus, GG, (CULTURELLE) 10 billion cell capsule Take 1 tablet by mouth daily. Active levETIRAcetam (KEPPRA) 500 MG tablet Take 1 tablet by mouth once. Active melatonin 10 mg TbER Take 1 tablet by mouth nightly at bedtime. 4 Active midodrine (PROAMATINE) 2.5 MG tablet Take 1 tablet by mouth as needed (SBP < 90). Active clobetasol (TEMOVATE) 0.05 % cream Apply topically 2 (two) times a day as needed. 5 Active trospium (SANCTURA) 20 mg tablet Take 1 tablet by mouth 2 (two) times a day. Active Active Problems Problem Noted Date Diagnosed Date Sepsis due to Pseudomonas sp ecies without acute organ dysfunction 03/11/2023 Assessment & Plan (03/19/2023 3:20 PM EST): Presented with hematuria. Seen in consultation by urology catheter changed to hematuria catheter which has metal spiral to keep catheter from collapsing especially when irrigated. Blood cultures growing Enterococcus and Pseudomonas species. Repeat blood cultures negative for 48 hours. Urine culture is growing MSSA, Pseudomonas aeruginosa, Enterococcus. Source of the bacteremia is likely urologic from manipulation of suprapubic Gregg catheter. Fever resoved, blood cultures remain negative. Pseudomonas is sensitive to bruce quinolone, though RANDOLPH not ideal. Patient will need to remain on IV antibiotics to complete course. Changed to IV ampicillin 03/18 to complete course of 7 days Pseudomonas coverage, 14 days of Enterococcus coverage -Continue probiotic -Infectious disease appreciated -Tunnel cath placed on 03/16 -TTE to eval for IE given enterococcus, negative for vegetation -Gregg catheter now draining yellow, clear urine -Urology follow-up on discharge -Patient would benefit from antibiotic prophylaxis targeted against Pseudomonas during future suprapubic catheter changes -CT scan showed 2 nonobstructing left renal stones, measuring up to 1.3 cm. Suprapubic catheter in place, correct positioning within collapsed urinary bladder. -Infectious disease follow-up on 03/22 at 3:30 PM virtually or by phone -Weekly Monday CBC, CMP labs sent to [facility], [facility] Patient is medically ready for discharge but we have been unable to procure his IV ampicillin because of limitations of the only available compounding pharmacy. Hopeful for discharge tomorrow if antibiotics available, his staff has been trained on administration. Will check the weekly CBC/CMP tomorrow morning. Paroxysmal atrial fibrillation 12/11/2020 Assessment & Plan (03/16/2023 7:58 PM EST): Continue apixaban Assessment & Plan (12/11/2020 7:05 AM EDT): Atrial Fibrillation - Rate: HR x<110 at [...] other risk factors for this particular patient. Urinary tract infection asso ciated with catheterization of urinary tract, initial encounter 12/10/2020 Assessment & Plan (12/11/2020 7:17 AM EDT): #Sepsis #Enterococcus & Psuedomonas UTI - S/p recent placement of SPT on 12/08, positive urine culture, erythema around SPT site, and rapid improvement with fluids and antibiotics. - S/p Cefepime (d1 12/09-12/15) - Narrowed to Ciprofloxacin (QTC 440 on 12/10) given susceptibilities for both organisms -Plan for 7 day course (D1 12/09) - F/u BCx x2 from 12/09 Anemia of chronic disease 12/10/2020 Assessment & Plan (03/19/2023 3:17 PM EST): Patient has a normochromic, normocytic anemia at 9.1 which was stable as of last check 03/15. No further hematuria. History of anemia of chronic disease, iron panel shows low serum iron and iron saturation. B12 within normal limits. Patient had small amount of blood from penis overnight 03/18, appears to have resolved. Suprapubic catheter draining yellow urine. -continue iron supplement daily Assessment & Plan (12/11/2020 7:01 AM EDT): - Iron studies c/w ACD - Restarted Xarelto on 12/10 PM given no signs of overt bleeding. Tetraplegia 10/01/2020 Assessment & Plan (03/17/2023 8:44 AM EST): Has neurogenic bladder, baclofen pump. -patient's blood pressure is checked 3 times daily at home and is given midodrine if it is less than 100 systolic. -At home he has to be hand fed by [employer] ST[employer] ASSISTANT they turn him regularly he has a bowel regimen that involves Colace once at night and Dulcolax suppository in the morning. RETAIL STORE ASSISTANT is present 24 hours a day. -Rotate routinely, offloading -Wound care nurse appreciated -Continue Colace twice daily, Dulcolax suppository in morning. -Discontinue MiraLAX, moving bowels regularly Assessment & Plan (12/11/2020 7:04 AM EDT): - Spasm - C/w Baclofen 20mg QID - C/w Flexeril 7.5mg TID - C/w Tizanidine 10mg TID - S/p Intrathecal Baclofen Tiral via LP at [facility] on 12/07 - GI/ - C/w Dulcolax 10mg [place] qD, Colace 100mg BID and Senna 2 tabs qD - S/p SBT placement on 12/08 - Plan for SBT exchange today - Pain - C/w Gabapentin 600mg BID - C/w Diclofenac 2g QID Gross hematuria Resolved Problems Problem Noted Date Diagnosed Date Resolved Date Ketonuria 12/10/2020 12/11/2020 Assessment & Plan (12/10/2020 3:38 AM EDT): Likely due to starvation ketoacidosis given pt has been NPO for multiple procedures. - D5-NS - regular diet - nutrition consult Hyponatremia 12/10/2020 12/11/2020 Assessment & Plan (12/10/2020 3:42 AM EDT): Mild. Likely due to volume depletion given recent NPO, ketonuria, and improvement with fluids. - f/u urine lytes - D5NS for now - f/u Encounters Date Type Department Care Team Description 03/24/2025 10:00 AM EST Home Care Visit [facility] [address] [place] [phone] Shellie Elena RN SN HOME VISIT 03/24/2025 10:00 AM EST Home Care Visit [facility] [address] [place] [phone] Janet ByrdKARENA SN PRECEPTOR CO-VISIT 03/23/2025 2:00 PM EST Home Care Visit [facility] [address] [place] [address] Pam Acuna, RN SN PRN HOME VISIT 03/21/2025 1:00 PM EST Home Care Visit [facility] [address] [place] [address] Janet Byrd RN SN PRECEPTOR CO-VISIT 03/21/2025 1:00 PM EST Home Care Visit [facility] [address] [place] [address] Shellie Elena RN SN HOME VISIT 03/19/2025 Home Care Visit [facility] [address] [place] [address] Mallory Ventura RN CASE COMMUNICATION 03/17/2025 1:00 PM EST Home Care Visit [facility] [address] [place] [address] Janet Byrd RN SN HOME VISIT 03/14/2025 2:31 PM EST - 03/14/2025 11:59 PM EST Hospital Encounter [facility] [address] [place] [id number] Curtis Rodrigues MD Discharge Disposition: Home or Self Care 03/14/2025 11:00 AM EST Home Care Visit [facility] [address] [place] [address] Janet Byrd RN SN HOME VISIT 03/14/2025 Episode Documentation [facility] [address] [place] [address] Yenny Moon 03/12/2025 Home Care Visit [facility] [address] [place] [address] Mallory Ventura RN CASE COMMUNICATION 03/10/2025 10:00 AM EST Home Care Visit [facility] [address] [place] [phone] Caryn Abbott RN SN HOME VISIT 03/09/2025 Home Care Visit [facility] [address] [place] [phone] Alison Linn, KARENA CASE COMMUNICATION 03/07/2025 11:00 AM EDT [facility] [address] [place] [phone] Janet Byrd RN SN HOME VISIT 03/05/2025 [facility] [address] [place] [address] Mallory Ventura RN CASE COMMUNICATION 03/04/2025 Procedure Pass [facility] [address] [place] [id number] 03/04/2025 Transcribe Orders Virtual Department [address] [place] [id number] Curtis Rodrigues MD Calculus of kidney (Primary Dx) 03/03/2025 1:00 PM EDT [facility] [address] [place] [address] Janet Byrd RN SN HOME VISIT 02/28/2025 2:00 PM EDT [facility] [address] [place] [address] Janet Byrd RN SN HOME VISIT 02/26/2025 [facility] [address] [place] [address] Mallory Ventura RN CASE COMMUNICATION 02/25/2025 8:00 AM EDT [facility] [address] [place] [address] Mary Andrew, KARENA SN HOME VISIT 02/25/2025 Plan of Care Documentation [facility] [address] [place] [address] 02/24/2025 10:30 AM EDT [facility] [address] [place] [address] Janet Byrd, KARENA SN OASIS RECERTIFICATION/FUP 02/23/2025 12:30 AM EDT Home Care Visit [facility] [address] [place] [address] Brenda Trujillo LPN UKE DRIVER HOME VISIT 02/22/2025 12:30 AM EDT Home Care Visit [facility] [address] [place] [address] Brenda Trujillo LPN UKE DRIVER HOME VISIT 02/21/2025 1:30 PM EDT Home Care Visit [facility] [address] [place] [address] Janet Byrd RN SN HOME VISIT 02/21/2025 Home Care Visit [facility] [address] [place] [address] Hayde Steiner, RN CASE COMMUNICATION 02/20/2025 11:00 AM EDT Home Care Visit [facility] [address] [place] [address] Janet Byrd, KARENA SN HOME VISIT 02/19/2025 Home Care Visit [facility] [address] [place] [address] Mallroy Ventura, RN CASE COMMUNICATION 02/17/2025 3:30 PM EDT Home Care Visit [facility] [address] [place] [address] Lorraine Watson LPN UKE DRIVER HOME VISIT 02/14/2025 2:38 PM EDT - 02/14/2025 11:59 PM EDT Hospital Encounter [address] [address] Curtis Rodrigues MD Discharge Disposition: Home or Self Care 02/14/2025 1:00 PM EDT [facility] [address] [place] [address] Janet Byrd, KARENA SN HOME VISIT 02/12/2025 Home [facility] [address] [place] [address] Mallory Ventura RN CASE COMMUNICATION 02/11/2025 11:00 AM EDT [facility] [address] [place] [address] Janet Byrd RN SN HOME VISIT 02/10/2025 11:00 AM EDT [facility] [address] [place] [address] Janet Byrd RN SN HOME VISIT 02/09/2025 7:00 PM EDT [facility] [address] [place] [address] Leola De Luna RN SN HOME VISIT 02/08/2025 3:00 AM EDT [facility] [address] [place] [address] Sharon Aguero, RN SN HOME VISIT 02/07/2025 11:45 AM EDT Home Care Visit [facility] [address] [place] [address] Tova Brown LPN LPN HOME VISIT 02/06/2025 12:30 PM EDT [facility] [address] [place] [address] Tova Brown LPN UKE DRIVER HOME VISIT 02/06/2025 Transcribe Orders [address] [phone] Curtis Rodrigues MD Calculus of kidney (Primary Dx); Other neuromuscular dysfunction of bladder 02/05/2025 Home Care Visit [facility] [address] [place] [address] Mallory Ventura, RN CASE COMMUNICATION 02/03/2025 11:15 AM EDT Home Care Visit [facility] [address] [place] [address] Tova Brown LPN LPN HOME VISIT 01/31/2025 10:00 AM EDT Home Care Visit [facility] [address] [place] [address] Janet Byrd RN SN HOME VISIT 01/30/2025 Home Care Visit [facility] [address] [place] [address] Rachael Dennis, RN TELEPHONE ENCOUNTER 01/29/2025 Home Care Visit [facility] [address] [place] [address] Mallory Ventura RN CASE COMMUNICATION 01/28/2025 12:30 PM EDT Home Care Visit [facility] [address] [place] [address] Janet Byrd RN SN HOME VISIT 01/26/2025 10:00 AM EDT Home Care Visit [facility] [address] [place] [address] Xiang Abreu LPN LPN HOME VISIT 01/26/2025 Home Care Visit [facility] [address] [place] [address] Xiang Abreu LPN MISSED VISIT 01/24/2025 10:30 AM EDT Home Care Visit [facility] [address] [place] [address] Janet Byrd RN SN HOME VISIT 01/24/2025 Episode Documentation Update [facility] [address] [place] [phone] Rosie Woodson Malgorzata 01/23/2025 10:00 AM EDT Home Care Visit [facility] [address] [place] [address] Tova Brown LPN UKE DRIVER HOME VISIT 01/21/2025 11:30 AM EDT Home Care Visit [facility] [address] [place] [phone] Janet Byrd RN SN HOME VISIT 01/20/2025 10:00 AM EDT Home Care Visit [facility] [address] [place] [phone] Tova Brown LPN UKE DRIVER HOME VISIT 01/19/2025 11:45 AM EDT Home Care Visit [facility] [address] [place] [phone] Galina Alcala LPN UKE DRIVER HOME VISIT 01/18/2025 1:15 PM EDT Home Care Visit [facility] [address] [place] [phone] Tova Brown LPN LPN HOME VISIT 01/17/2025 12:30 PM EDT Home Care Visit [facility] [address] [place] [phone] Janet Byrd RN SN HOME VISIT 01/16/2025 11:30 AM EDT Home Care Visit [facility] [address] [place] [phone] Janet Byrd RN SN HOME VISIT 01/15/2025 3:09 PM EDT - 01/15/2025 4:43 PM EDT Surgery OR Admitting Dept - Virtual Department [address] [place] [id number] Curtis Rodrigues MD LASER LITHOTRIPSY CYSTOSCOPY URETEROSCOPY RETROGRADE STENT PLACEMENT 01/15/2025 2:35 PM EDT Anesthesia Event OR Admitting Dept - Virtual Department [address] [place] [phone] Sudhakar León MD Wanner, John Amos, CRNA 01/15/2025 1:00 PM EDT - 01/15/2025 5:37 PM EDT Hospital Encounter OR Admitting Dept - Virtual Department [address] [place] [id number] Curtis Rodrigues MD Discharge Disposition: Home or Self Care 01/15/2025 11:00 AM EDT Home Care Visit [facility] [address] [place] [phone] Janet Byrd RN SN HOME VISIT 01/15/2025 Ancillary Orders Curtis Rodrigues MD 01/15/2025 Home Care Visit [facility] [address] [place] [phone] Mallory Ventura RN CASE COMMUNICATION 01/15/2025 Home Care Visit [facility] [address] [place] [phone] Mallory Ventura RN CASE COMMUNICATION 01/15/2025 Procedure Pass OR Admitting Dept - Virtual Department [address] [place] [id number] 01/14/2025 9:30 AM EDT Pre-Admission Testing Pre Procedure Evaluation [address] [place] [id number] Curtis Rodrigues MD 01/13/2025 10:30 AM EDT Home Care Visit [facility] [address] [place] [phone] Tova Brown LPN UKE DRIVER HOME VISIT 01/11/2025 1:45 PM EDT Home Care Visit [facility] [address] [place] [phone] Tova Brown LPN UKE DRIVER HOME VISIT 01/09/2025 11:00 AM EDT Home Care Visit [facility] [address] [place] [phone] Tova Brown LPN LPN HOME VISIT 01/09/2025 Home Care Visit [facility] [address] [place], [place] [phone] Mallory Ventura, PIPE PROCESSOR CLINICAL COMMUNICATION 01/07/2025 Home Care Visit [facility] [address] [place], [place] [phone] Mallory Ventura, RN CASE COMMUNICATION 01/06/2025 1:30 AM EDT Home Care Visit [facility] [address] [place], [place] [phone] Brenda Trujillo LPN LPN HOME VISIT 01/05/2025 11:00 AM EDT Home Care Visit [facility] [address] [place] [address] Janet Byrd RN SN HOME VISIT 01/04/2025 Home Care Visit [facility] [address] [place] [address] Brenda Trujillo LPN LPN HOME VISIT 01/03/2025 11:00 AM EDT Home Care Visit [facility] [address] [place] [address] Janet Byrd RN SN HOME VISIT 01/01/2025 11:00 AM EDT Home Care Visit [facility] [address] [place] [address] Tova Brown LPN LPN HOME VISIT 12/31/2024 12:30 PM EDT Home Care Visit [facility] [address] [place] [address] Janet Byrd RN SN HOME VISIT 12/31/2024 Episode Documentation Update [facility] [address] [place], [place] [phone] Rosie Woodson 12/30/2024 10:30 AM EDT Home Care Visit [facility] [address] [place] [address] Janet Byrd RN SN HOME VISIT 12/29/2024 12:30 PM EDT Home Care Visit [facility] [address] [place] [address] Pam Acuna, KARENA SN HOME VISIT 12/29/2024 Plan of Care [facility]ation [facility] [address] [place] [address] 12/28/2024 12:00 PM EDT [facility] [address] [place] [address] Pam Acuna, KARENA SN HOME VISIT 12/27/2024 2:25 PM EDT - 12/27/2024 11:59 PM EDT Hospital Encounter [address] [address] Maura Colmenares PA-C Discharge Disposition: Home or Self Care 12/27/2024 12:30 PM EDT [facility] [address] [place] [address] Janet Byrd RN SN OASIS RECERTIFICATION/FUP 12/26/2024 10:30 AM EDT [facility] [address] [place] [address] Tova Brown LPN LPN HOME VISIT 12/24/2024 12:45 PM EDT [facility] [address] [place] [address] Galina Alcala LPN LPN HOME VISIT 12/16/2024 Procedure Pass [address] [id number] from Last 3 Months Immunizations Immunization Administration Dates Next Due COVID-19 (Pre-02/27) Moderna Vaccine, mRNA, PF 0 08/01/2020,07/04/2020 Influenza High-Dose Quadrivalent Preservative Fr ee IM 01/20/2021 Social History Tobacco Use Types Packs/Day Years Used Date Smoking Tobacco: Former Cigarettes 1 41 0 10/01/1978 - 10/02/2019 Smokeless Tobacco: Never Tobacco Cessation:Counseling Given: Not Answered Alcohol Use Standard Drinks/Week Comments Never 0 [...] PM EDT Sexual Orientation Not on file Last Filed Vital Signs Vital Sign Reading Time Taken Comments Blood Pressure 96/68 03/24/2025 10:27 AM EST Pulse 60 03/24/2025 10:27 AM EST Temperature 36.6 C (97.8 F) 03/24/2025 10:27 AM EST Respiratory Rate 20 03/24/2025 10:27 AM EST Oxygen Saturation 97% 03/24/2025 10:27 AM EST Inhaled Oxygen Concentration - - Weight 69.9 kg (154 lb) 01/15/2025 1:25 PM EDT Height 172.7 cm (5' 8 ) 01/15/2025 1:25 PM EDT Body Mass Index 23.42 01/15/2025 1:25 PM EDT Plan of Treatment Upcoming Encounters Date Type Department Care Team (Late st Contact Info) Description 03/28/2025 3:00 AM EST Appointment [facility] [address] [place] [phone] Shellie Elena RN [address] [place] [address] 03/31/2025 3:30 AM EST Appointment [facility] [address] [place] [phone] Shellie Elena RN [address] [place] [address] 04/04/2025 3:00 AM EST Appointment [facility] [address] [place] [phone] Shellie Elena RN [address] [place] [address] 04/07/2025 3:00 AM EST Appointment [facility] [address] [place] [phone] Shellie Elena RN [address] [place] [address] 04/11/2025 3:00 AM EST Appointment [facility] [address] [place] [phone] Shellie Elena RN [address] [place] [address] 04/14/2025 2:00 AM EST Appointment [facility] [address] [place] [phone] Shellie Elena RN [address] [place] [address] 04/18/2025 1:30 AM EST Appointment [facility] [address] [place] [phone] Shellie Elena RN [address] [place] [address] 04/21/2025 1:30 AM EST Appointment [facility] [address] [place] [phone] Shellie Elena RN [address] [place] [address] 04/25/2025 1:30 AM EST Appointment [facility] [address] [place] [phone] Shellie Elena RN [address] [place] [address] Health Maintenance Due Date Last Done Comments LIPID PANEL 1952 TSH LEVEL 1952 DEPRESSION SCREENING 1964 HEPATITIS C SCREENING 1970 COLOGUARD 1997 COLONOSCOPY 1997 COLORECTAL CANCER SCREENING 1997 FIT TEST 1997 FOBT 1997 SIGMOIDOSCOPY 1997 VIRTUAL COLONOSCOPY 1997 LUNG CANCER SCREENING (LDCT Only) 2002 PNEUMOCOCCAL VACCINES (50+ years) (2 of 2 - PCV) 12/21/2012 12/22/2011 Adult Td,Tdap Booster 04/21/2013 04/21/2003 ALT LEVEL (ALANINE AMINOTRANSFERASE) 03/29/2024 03/29/2023, 03/20/2023, 12/03/2022, Additional history exists INFLUENZA VACCINE (#1) 2024 , 02/03/2023, 03/10/2022, Additional history exists COVID-19 VACCINE ( season) 2025 02/24/2024, 04/15/2023, 03/10/2022, Additional history exists ZOSTER VACCINES Completed 03/10/2022, 12/2021, 10/06/2018, Additional history exists RSV VACCINE Completed 04/15/2023 ABDOMINAL AORTIC ANEURYSM (AAA) SCREENING Completed 03/14/2025, 12/27/2024, 10/17/2024, Additional history exists HEPATITIS A VACCINES Aged Out No long er eligible based on patient's age to complete this topic HIB VACCINES Aged Out No longer eligi ble based on patient's age to complete this topic MENINGOCOCCAL VACCINES (ACWY) Aged Out No longer eligible based on patient's age to complete this topic MENINGOCOCCAL VACCINES (B) Aged Out N o longer eligible based on patient's age to complete this topic Medical Devices Implanted Type Area Health Unit Clerk Device Identifier Shelf Expiration Date Model / Serial / Lot Catheter Intrathecal [id number] Ascenda Polyester Polyurethane Silicone Pump Titanium Baclofen Therapy - [id number] Implanted:Qty: 1 on 12/22/2020 by Sherman Mccarthy MD at [facility] N/A: Back [employer] 09/16/2022 [id number] / / [id number] Pump Infusion 20ml Pain Synchromed Ii Programmable - [id number] Implanted:Qty: 1 on 12/22/2020 by Sherman Mccarthy MD at [facility] Right: Abdomen [employer] 04/18/2022 8637-20 / [id number] / Catheter Drainage 14fr 25cm .038in Multipurpose Single Lumen Ultrathane Hydrophilic Coated Radiopaque Firm Mac Loc Loop Locking Lf - [id number] Implanted:Qty: 1 on 12/08/2020 by Danyel Armijo MD at [facility] N/A: Bladder [employer] 10/09/2023 [id number] / / [id number] Envelope Neuro Large Tyrx Absorbable Antibacterial - [id number] Implanted:Qty: 1 on 12/22/2020 by Sherman Mccarthy MD at [facility] Right: Abdomen [employer] 09/12/2021 [id number] / / [id number] Kit Stent 7.0fr 22 30cm Double Pigtail Taper Tip Threaded Guidewire Hydroplus Coated Percuflex Radiopaque Y Contour - [id number] Implanted:Qty: 1 on 01/15/2025 by Curtis Rodrigues MD at [facility] Left: Ureter [employer]EN [id number] 11/05/2026 [id number] / / [id number] Procedures Procedure Name Priority Date/Time Associated Diagnosis Comments CT ABDOMEN/PELVIS (KIDNEY STONE) WITHOUT CONTRAST Routine 03/14/2025 2:53 PM EST Calculus of kidney US KIDNEYS Routine 02/14/2025 3:02 PM EDT Calculus of kidney Other neuromuscular dysfunction of bladder [place] FLUOROSCOPY Routine 01/15/2025 4:03 PM EDT URINE CULTURE STAT 01/15/2025 3:07 PM EDT AIRWAY PLACEMENT Routine 01/15/2025 2:44 PM EDT [place] CYSTO/URETERO W/LITHOTRIPSY &INDWELL STENT INSRT 01/15/2025 2:35 PM EDT left stone CT ABDOMEN/PELVIS (KIDNEY STONE) WITHOUT CONTRAST Routine 12/27/2024 2:42 PM EDT Renal calculi COMPREHENSIVE METABOLIC PANEL (CMP) Routine 03/29/2023 2:40 PM EST Gross hematuria Urinary tract infection associated with catheterization of urinary tract, unspecified indwelling urinary catheter type, initial encounter Sepsis due to Pseudomonas species without acute organ dysfunction from Last 3 Months or Most Recently Relevant to Health Maintenance Results * CT ABDOMEN/PELVIS (KIDNEY STONE) WITHOUT CONTRAST (03/14/2025 2:53 PM EST) Anatomical Region Laterality Modality Abdomen, Pelvis Computed Tomogra phy 03/20/2025 11:1 4 AM EST Impressions 03/20/2025 11:38 AM EST 1. Stable left nephrolithiasis as compared with 12/27/2024, with persistent hydroureteronephrosis following ureteral catheter removal, apparently related to residual small distal ureteral calculi versus ureteral stricture. Small bladder calculus. 2. Chronic large colonic and rectal stool burden consistent with obstipation. No progressive wall thickening apparent. 3. Probable splenomegaly. Additional chronic findings as above. Narrative 03/20/2025 11:[address] ABDOMEN/PELVIS (KIDNEY STONE) WITHOUT CONTRAST Referring clinician's provided indication for this examination in Epic: Outside Radiology Order; NO IV OR ORAL CONTERAST TECHNIQUE: Multidetector-row CT of the abdomen and pelvis was performed without intravenous contrast using tailored dose modulation techniques. Images were reconstructed in the axial, coronal, and sagittal planes. COMPARISON: 12/27/2024 non-contrast abdominal pelvic CT and 02/14/2025 renal ultrasound ABSENCE OF INTRAVENOUS CONTRAST DECREASES SENSITIVITY FOR DETECTION OF FOCAL LESIONS AND VASCULAR PATHOLOGY. FINDINGS: Lower Chest: Stable bibasilar linear scarring versus subsegmental atelectasis without pleural effusion or new airspace consolidation. Liver: Stable in size and contour with chronic elongation of the right hepatic lobe. Biliary: Cholelithiasis and chronic gallbladder wall calcification. No extrahepatic duct dilatation. Spleen: Probable splenomegaly, difficult to confirm as the entire spleen was not included on the initial imaging acquisition. Pancreas: Stable in size. Adrenal Glands: Stable. Kidneys/Ureters: Left ureteral catheter has been removed. Residual intrarenal calculi appear overall stable with persistent collecting system and mild ureteral distention above the level of small chronic calcifications in the left pelvis previously noted to be along the margin of the catheter (3:311, 900:72) which may contribute to obstruction. No progression of left perirenal stranding. Chronic left renal cortical cyst. No right-sided hydronephrosis or urinary calculi. Bowel: Chronic large hiatal hernia. No evidence of gastric distention or small bowel obstruction. Large amount of fecal contents again noted consistent with chronic obstipation without progressive rectal wall thickening or paracolic fat infiltration. Peritoneum/Retroperitoneum: No free fluid or mass. Lymph Nodes: No grossly enlarged mesenteric, para-aortic, iliac chain, or inguinal nodes noted to have developed in the interim. Stable nodularity near the left renal hilum. Pelvic Organs/Bladder: Bladder empty secondary to suprapubic catheter. Urethral catheter has been removed. New 4 mm bladder calculus. Vessels: No evidence of aortoiliac aneurysm. Bones/Soft Tissues: No abdominal wall mass or new bowel containing hernia. Stable right inguinal hernia. Chronic sacral deformity with interval decrease in size of overlying decubitus ulcer since 12/27/2024 and without new abscess apparent. Procedure Note Sudhakar Lin MD - 03/20/2025 CT ABDOMEN/PELVIS (KIDNEY STONE) WITHOUT CONTRAST Referring clinician's provided indication for this examination in Epic:Outside Radiology Order; NO IV OR ORAL CONTERAST TECHNIQUE: Multidetector-row CT of the abdomen and pelvis was performedwithout intravenous contrast using tailored dose modulation techniques.Images were reconstructed in the axial, coronal, and sagittal planes. COMPARISON: 12/27/2024 non-contrast abdominal pelvic CT and 02/14/2025renal ultrasound ABSENCE OF INTRAVENOUS CONTRAST DECREASES SENSITIVITY FOR DETECTION OFFOCAL LESIONS AND VASCULAR PATHOLOGY. FINDINGS: Lower Chest: Stable bibasilar linear scarring versus subsegmentalatelectasis without pleural effusion or new airspace consolidation. Liver: Stable in size and contour with chronic elongation of the righthepatic lobe. Biliary: Cholelithiasis and chronic gallbladder wall calcification. Noextrahepatic duct dilatation. Spleen: Probable splenomegaly, difficult to confirm as the entire spleenwas not included on the initial imaging acquisition. Pancreas: Stable in size. Adrenal Glands: Stable. Kidneys/Ureters: Left ureteral catheter has been removed. Residualintrarenal calculi appear overall stable with persistent collecting systemand mild ureteral distention above the level of small chroniccalcifications in the left pelvis previously noted to be along the marginof the catheter (3:311, 900:72) which may contribute to obstruction. Noprogression of left perirenal stranding. Chronic left renal cortical cyst.No right-sided hydronephrosis or urinary calculi. Bowel: Chronic large hiatal hernia. No evidence of gastric distention orsmall bowel obstruction. Large amount of fecal contents again notedconsistent with chronic obstipation without progressive rectal wallthickening or paracolic fat infiltration. Peritoneum/Retroperitoneum: No free fluid or mass. Lymph Nodes: No grossly enlarged mesenteric, para-aortic, iliac chain, oringuinal nodes noted to have developed in the interim. Stable nodularitynear the left renal hilum. Pelvic Organs/Bladder: Bladder empty secondary to suprapubic catheter.Urethral catheter has been removed. New 4 mm bladder calculus. Vessels: No evidence of aortoiliac aneurysm. Bones/Soft Tissues: No abdominal wall mass or new bowel containing hernia.Stable right inguinal hernia. Chronic sacral deformity with intervaldecrease in size of overlying decubitus ulcer since 12/27/2024 and withoutnew abscess apparent. IMPRESSION: 1. Stable left nephrolithiasis as compared with 12/27/2024, withpersistent hydroureteronephrosis following ureteral catheter removal,apparently related to residual small distal ureteral calculi versusureteral stricture. Small bladder calculus. 2. Chronic large colonic and rectal stool burden consistent withobstipation. No progressive wall thickening apparent. 3. Probable splenomegaly. Additional chronic findings as above. us Curtis Rodrigues MD IMG CT ABD/PELVIS Final Result * US Kidneys (02/14/2025 3:02 PM EDT) Anatomical Region Laterality Modality Abdomen, Kidney Ultrasound 02/14/2025 4:26 PM EDT Impressions 02/14/2025 4:28 PM EDT 1. Negative exam of the right kidney. 2. Urinary bladder decompressed with Gregg catheter. 3. Very poor visualization of the left kidney (nondiagnostic). Narrative 02/14/2025 4:28 PM EDT US KIDNEYS INDICATION: Urinary stone. TECHNIQUE: Kidney Ultrasound. COMPARISON: CT from December 2024. FINDINGS: Urinary bladder is decompressed with Gregg catheter in place. Right kidney: Normal. No hydronephrosis. No stones seen. Left kidney: Very poor visualization due to limited acoustic windows. Procedure Note Lexa Galan MD - 02/14/2025 US KIDNEYS INDICATION: Urinary stone. TECHNIQUE: Kidney Ultrasound. COMPARISON: CT from December 2024. FINDINGS: Urinary bladder is decompressed with Gregg catheter in place. Right kidney: Normal. No hydronephrosis. No stones seen. Left kidney: Very poor visualization due to limited acoustic windows. IMPRESSION: 1. Negative exam of the right kidney. 2. Urinary bladder decompressed with Gregg catheter. 3. Very poor visualization of the left kidney (nondiagnostic). us Curtis Rodrigues MD IMG US RENAL Final Result * [place] Fluoroscopy (01/15/2025 4:03 PM EDT) Narrative SYSTEMGENERATED, DOCUMENTATION - 01/15/2025 4:03 PM EDT Fluoroscopy was provided during this procedure. us Curtis Rodrigues MD [facility] [place] MISC Final Result * (ABNORMAL) Urine Culture (01/15/2025 3:07 PM EDT) Special Requests None 01/15/2025 3:07 PM EDT [facility] Urine Culture 10,000 to 100,000 colony forming units per mL STAPHYLOCOCCUS AUREUS(A) 01/18/2025 10:45 AM EDT [facility] Urine Culture 10,000 to 100,000 colony forming units per mL ENTEROCOCCUS FAECALIS Vancomycin resistant Enterococci(A) 01/18/2025 10:45 AM [facility] Urine Culture 10,000 to 100,000 colony forming units per mL KLEBSIELLA PNEUMONIAE This is an extended spectrum beta-lactamase (ESBL+) organism.(A) 01/18/2025 10:45 AM EDT [facility] Urine Culture 10,000 to 100,000 colony forming units per mL KLEBSIELLA PNEUMONIAE of a second type This is an extended spectrum beta-lactamase (ESBL+) organism.(A) 01/18/2025 10:45 AM T [facility] Urine (Urine) 01/15/2025 3:0 7 PM EDT 01/15/2025 4:43 PM EDT Comment:BLADDER URINE FOR CU LTURE Narrative Organism Antibiotic Method Susceptibility Staphylococcus aureus Penicillin G RANDOLPH METHOD >=0.5: Resistant Staphylococcus aureus Gentamicin RANDOLPH METHOD <=0.5: Susceptible Staphylococcus aureus inducible clindamycin RANDOLPH METHOD Positive Staphylococcus aureus Levofloxacin RANDOLPH METHOD 4: Intermediate Staphylococcus aureus Nitrofurantoin RANDOLPH METHOD <=16: Susceptible Staphylococcus aureus Oxacillin(methicillin) RANDOLPH METHO D 0.5: Susceptible Staphylococcus aureus Rifampin RANDOLPH METHOD <=0.5: Susceptible Staphylococcus aureus Tetracycline RANDOLPH METHOD <=1: Susceptible Staphylococcus aureus Trimethoprim/sulfamethoxazole AL C METHOD <=10: Susceptible Staphylococcus aureus Vancomycin RANDOLPH METHOD <=0.5: Susceptible Staphylococcus aureus Cefoxitin RANDOLPH METHOD Negative Comment: Enterococcus faecalis Ampicillin RANDOLPH METHOD <=2: Susceptible Enterococcus faecalis Penicillin G RANDOLPH METHOD 8: Susceptible Enterococcus faecalis Gentamicin High Level RANDOLPH METHOD Susceptible Enterococcus faecalis Levofloxacin RANDOLPH METHOD >=8: Resistant Enterococcus faecalis Linezolid RANDOLPH METHOD 2: Susceptible Enterococcus faecalis Nitrofurantoin RANDOLPH METHOD <=16: Susceptible Enterococcus faecalis streptomycin high lev RANDOLPH METHOD Susceptible Enterococcus faecalis Tetracycline RANDOLPH METHOD >=16: Resistant Enterococcus faecalis Vancomycin RANDOLPH METHOD >=32: Resistant Comment:Vancomycin r esistant Enterococci Comment: Klebsiella pneumoniae Ampicillin RANDOLPH METHOD >=32: Resistant Klebsiella pneumoniae Cefepime RANDOLPH METHOD >=32: Resistant Klebsiella pneumoniae Ceftazidime RANDOLPH METHOD >=32: Resistant Klebsiella pneumoniae Ceftriaxone RANDOLPH METHOD >=64: Resistant Comment:Carbapenems should be considered first line for systemic infections caused by organisms with ceftriaxone resistance (e.g., extended spectrum beta-lactamase (ESBL)). Piperacillin/tazobactam and cefepime are not recommended for severe non-urinary ESBL infections. Contact Infectious Diseases or ID pharmacy, where available, with questions. Klebsiella pneumoniae Ciprofloxacin RANDOLPH METHOD >=4: Resistant Klebsiella pneumoniae Ertapenem RANDOLPH METHOD <=0.12: Susceptible Klebsiella pneumoniae Extended Spectrum B-lactamase AL C METHOD Positive Comment:This is an e xtended spectrum beta-lactamase (ESBL+) organism. Klebsiella pneumoniae Gentamicin RANDOLPH METHOD <=1: Susceptible Klebsiella pneumoniae Levofloxacin RANDOLPH METHOD 4: Resistant Klebsiella pneumoniae Nitrofurantoin RANDOLPH METHOD 64: Intermediate Klebsiella pneumoniae Piperacillin-tazobactam RANDOLPH METH OD 8: Susceptible Klebsiella pneumoniae Trimethoprim/sulfamethoxazole AL C METHOD >=320: Resistant Klebsiella pneumoniae Cefazolin(urine) RANDOLPH METHOD >=32: Resistant Klebsiella pneumoniae Piperacillin RANDOLPH METHOD >=128: Resistant Klebsiella pneumoniae Cefuroxime RANDOLPH METHOD >=64: Resistant Klebsiella pneumoniae Cefoxitin RANDOLPH METHOD <=4: Susceptible Klebsiella pneumoniae Aztreonam RANDOLPH METHOD >=64: Resistant Klebsiella pneumoniae Meropenem RANDOLPH METHOD <=0.25: Susceptible Klebsiella pneumoniae Amikacin RANDOLPH METHOD <=2: Susceptible Klebsiella pneumoniae Tetracycline RANDOLPH METHOD 4: Susceptible Comment: Klebsiella pneumoniae Ampicillin RANDOLPH METHOD >=32: Resistant Klebsiella pneumoniae Cefepime RANDOLPH METHOD 8: Intermediate Klebsiella pneumoniae Ceftazidime RANDOLPH METHOD 8: Intermediate Klebsiella pneumoniae Ceftriaxone RANDOLPH METHOD >=64: Resistant Comment:Carbapenems should be considered first line for systemic infections caused by organisms with ceftriaxone resistance (e.g., extended spectrum beta-lactamase (ESBL)). Piperacillin/tazobactam and cefepime are not recommended for severe non-urinary ESBL infections. Contact Infectious Diseases or ID pharmacy, where available, with questions. Klebsiella pneumoniae Ciprofloxacin RANDOLPH METHOD >=4: Resistant Klebsiella pneumoniae Ertapenem RANDOLPH METHOD <=0.12: Susceptible Klebsiella pneumoniae Extended Spectrum B-lactamase AL C METHOD Positive Comment:This is an e xtended spectrum beta-lactamase (ESBL+) organism. Klebsiella pneumoniae Gentamicin RANDOLPH METHOD >=16: Resistant Klebsiella pneumoniae Levofloxacin RANDOLPH METHOD >=8: Resistant Klebsiella pneumoniae Nitrofurantoin RANDOLPH METHOD 64: Intermediate Klebsiella pneumoniae Piperacillin-tazobactam RANDOLPH METH OD 16: Intermediate Klebsiella pneumoniae Trimethoprim/sulfamethoxazole AL C METHOD >=320: Resistant Klebsiella pneumoniae Cefazolin(urine) RANDOLPH METHOD >=32: Resistant Klebsiella pneumoniae Piperacillin RANDOLPH METHOD >=128: Resistant Klebsiella pneumoniae Cefuroxime RANDOLPH METHOD >=64: Resistant Klebsiella pneumoniae Cefoxitin RANDOLPH METHOD <=4: Susceptible Klebsiella pneumoniae Aztreonam RANDOLPH METHOD 16: Resistant Klebsiella pneumoniae Meropenem RANDOLPH METHOD <=0.25: Susceptible Klebsiella pneumoniae Amikacin RANDOLPH METHOD <=2: Susceptible Klebsiella pneumoniae Tetracycline RANDOLPH METHOD >=16: Resistant Comment: us Curtis Rodrigues MD LAB MICROBIOLOGY CULTURE ORDERA BLES Final Result [facility] [address] [place] [address] * ANES ETT DOUBLE LUMEN - AIRWAY LDA (01/15/2025 2:44 PM EDT) Narrative Swapnil Ferreira CRNA - 01/15/2025 2:44 PM EDT Swapnil Ferreira CRNA 01/15/2025 2:54 PM Airway Placement Procedure Note: Procedure performed by: fellow/resident/AFTER SCHO[employer] TE[employer]ER Anesthesiologist: Sudhakar León MD Fellow/Resident/AFTER SCHOOL TEACHER: Swapnil Ferreira CRNA Airway procedure initiated at:01/15/2025 2:44 PM and ended at. Personal Protective Equipment: Mask: surgical mask Gloves: gloves Mask Ventilation: Quality: not attempted Airway Placement: Technique: LMA LMA Insertion: LMA size: 4 LMA type: flexible LMA placement attempts: 1. Outcomes: Evidence of dental injury? no Complications observed? no us Sudhakar León MD [place] ANESTHESIA Final Result * CT ABDOMEN/PELVIS (KIDNEY STONE) WITHOUT CONTRAST (12/27/2024 2:42 PM EDT) Anatomical Region Laterality Modality Abdomen, Pelvis Computed Tomogra phy 12/31/2024 11:2 0 AM EDT Impressions 12/31/2024 11:52 AM EDT 1. Resolution of left hydronephrosis following insertion of ureteral catheter, with residual distal fragments present along the tube margin. Grossly stable left nephrolithiasis. 2. Progressive rectosigmoid stool, luminal distention, and probable wall thickening difficult to characterize on this non-contrast study. Stercoral colitis cannot be excluded and must be correlated with clinical findings. 3. Chronic cholelithiasis and gallbladder wall calcification. 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 4. A message regarding the results of this examination was relayed to the ordering clinician's service. Narrative 12/31/2024 11:[address] ABDOMEN/PELVIS (KIDNEY STONE) WITHOUT CONTRAST Referring clinician's provided indication for this examination in Epic: Outside Radiology Order; NEEDS BRADFORD TECHNIQUE: Multidetector-row CT of the abdomen and pelvis was performed without intravenous contrast using tailored dose modulation techniques. Images were reconstructed in the axial, coronal, and sagittal planes. COMPARISON: 10/17/2024 contrast-enhanced abdominal pelvic CT ABSENCE OF INTRAVENOUS CONTRAST DECREASES SENSITIVITY FOR DETECTION OF FOCAL LESIONS AND VASCULAR PATHOLOGY. FINDINGS: Lower Chest: No acute airspace consolidation or pleural effusion. Liver: Stable in size and contour. Biliary: No gross extrahepatic duct dilatation or choledocholithiasis. Chronic cholelithiasis and gallbladder wall calcification. Spleen: Stable in size and contour. Pancreas: Stable in size. Adrenal Glands: No nodules. Kidneys/Ureters: Interval placement of left ureterostomy with proximal tube coiled in pelvis and distal tube in bladder decompressed by suprapubic catheter. Resolution of left hydronephrosis with left distal ureteral calculi fragments now measuring up to 4 mm and with stable numerous smaller intrarenal calculi. No right-sided hydronephrosis or nephrolithiasis. No abnormal perirenal fluid collection. Grossly stable left upper pole cyst. Bowel: Large chronic hiatal hernia. No evidence of small bowel obstruction. Large apparently non-formed stool burden again evident in rectum, now measuring approximately 9.0 cm in transverse dimensions versus 8.0 cm previously, with stool extending more proximally into the distal sigmoid but without evidence of more proximal luminal distention to confirm colonic obstruction. There appears to be rectal wall thickening up to 7 mm without definitive progression of paracolic fat haziness or development of extraluminal abscess. Peritoneum/Retroperitoneum: No free fluid, free air, or mass. Lymph Nodes: No grossly enlarged nodes identified. Pelvic Organs/Bladder: No free fluid or mass. Vessels: No aortoiliac aneurysm. Bones/Soft Tissues: No abdominal wall mass or bowel containing hernia. Stable deformity of sacrum and coccyx with new small overlying decubitus ulcer (3:331, 901:71) but without discrete tissue abscess. Procedure Note Sudhakar Lin MD - 12/31/2024 CT ABDOMEN/PELVIS (KIDNEY STONE) WITHOUT CONTRAST Referring clinician's provided indication for this examination in Epic:Outside Radiology Order; NEEDS BRADFORD TECHNIQUE: Multidetector-row CT of the abdomen and pelvis was performedwithout intravenous contrast using tailored dose modulation techniques.Images were reconstructed in the axial, coronal, and sagittal planes. COMPARISON: 10/17/2024 contrast-enhanced abdominal pelvic CT ABSENCE OF INTRAVENOUS CONTRAST DECREASES SENSITIVITY FOR DETECTION OFFOCAL LESIONS AND VASCULAR PATHOLOGY. FINDINGS: Lower Chest: No acute airspace consolidation or pleural effusion. Liver: Stable in size and contour. Biliary: No gross extrahepatic duct dilatation or choledocholithiasis.Chronic cholelithiasis and gallbladder wall calcification. Spleen: Stable in size and contour. Pancreas: Stable in size. Adrenal Glands: No nodules. Kidneys/Ureters: Interval placement of left ureterostomy with proximaltube coiled in pelvis and distal tube in bladder decompressed bysuprapubic catheter. Resolution of left hydronephrosis with left distalureteral calculi fragments now measuring up to 4 mm and with stablenumerous smaller intrarenal calculi. No right-sided hydronephrosis ornephrolithiasis. No abnormal perirenal fluid collection. Grossly stableleft upper pole cyst. Bowel: Large chronic hiatal hernia. No evidence of small bowelobstruction. Large apparently non-formed stool burden again evident inrectum, now measuring approximately 9.0 cm in transverse dimensions versus8.0 cm previously, with stool extending more proximally into the distalsigmoid but without evidence of more proximal luminal distention toconfirm colonic obstruction. There appears to be rectal wall thickening upto 7 mm without definitive progression of paracolic fat haziness ordevelopment of extraluminal abscess. Peritoneum/Retroperitoneum: No free fluid, free air, or mass. Lymph Nodes: No grossly enlarged nodes identified. Pelvic Organs/Bladder: No free fluid or mass. Vessels: No aortoiliac aneurysm. Bones/Soft Tissues: No abdominal wall mass or bowel containing hernia.Stable deformity of sacrum and coccyx with new small overlying decubitusulcer (3:331, 901:71) but without discrete tissue abscess. IMPRESSION: 1. Resolution of left hydronephrosis following insertion of ureteralcatheter, with residual distal fragments present along the tube margin.Grossly stable left nephrolithiasis. 2. Progressive rectosigmoid stool, luminal distention, and probable wallthickening difficult to characterize on this non-contrast study. Stercoralcolitis cannot be excluded and must be correlated with clinicalfindings. 3. Chronic cholelithiasis and gallbladder wall calcification. 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 4. A message regarding the results of this examination was relayed to theordering clinician's service. us Maura Colmenares PA-C IMG CT ABD/PELVIS Final Result * (ABNORMAL) Comprehensive metabolic panel (03/29/2023 2:40 PM EST) SODIUM 142 133 - 146 mmol/L [facility] POTASSIUM 3.7 3.3 - 5.1 mmol/L [facility] CHLORIDE 103 96 - 108 mmol/L [facility] CO2 30 21 - 35 mmol/L [facility] BUN 13 6 - 19 mg/dL [facility] CREATININE 0.40(L) 0.5 - 1.5 mg/dL [facility] GLUCOSE 107(H) 70 - 99 mg/dL [facility] ALBUMIN 3.6(L) 3.9 - 4.8 g/dL [facility] TOTAL PROTEIN 6.6 6.5 - 8.0 g/dL [facility] CALCIUM 8.7 8.4 - 10.3 mg/dL [facility] ALKALINE PHOSPHATASE 63 39 - 117 U/L [facility] TOTAL BILIRUBIN <0.2 0.0 - 1.2 mg/dL [facility] AST 13 0 - 37 U/L [facility] ALT 9 0 - 40 U/L [facility] GLOBULIN 3.0 1 - 4.8 g/dL [facility] EGFR 117 >59 mL/min/1.7 3m2 [facility] Comment:Estimated glomerular filtration rate calculated using the CKD-EPI refit equation. 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 Insurance MEDICARE A [facility] MEDICARE [place] [address] MEDICARE A [facility] MEDICARE A MEDICARE A [facility] MEDICARE A [facility] MEDIC[facility] A Member Subscriber Plan / Payer (Ef fective 2017-Present) Name:Adrian Torrez Member ID:[id number] Relation to Subscriber:Self Name:Adrian Torrez Subscriber ID:[id number] Payer ID:[id number] Group ID:Not on file Type:Medicare Address: [facility].[address] [address] [facility] HMO [facility] INSURANCE [facility] INSURANCE [address] Advance Directives For more information, please contact: [phone] (9AM - 5PM Janna/[facility], Monday-Monday) Documents on File Type Date Recorded Patient Mother'S Helper Expl anation Healthcare Proxy 03/22/2023 2:50 PM * Full Code (Latest Code Status on File) Date Activated Date Inactivated Comments 03/11/2023 10:59 PM Question Answer Comments Code Status Confirmed With: Patient * Full Code Date Activated Date Inactivated Comments 12/11/2020 3:23 PM 03/11/2023 10:59 PM Question Answer Comments Code Status Confirmed With: Patient * Full Code Date Activated Date Inactivated Comments 10/02/2020 10:45 AM 12/11/2020 3:23 PM Question Answer Comments Code Status Confirmed With: Patient Code Status Communicated To: Inpatient Attending Care Teams Roll Examiner Relationship Specialty Start Date End Date Aba Linares DO [address] [place] [address], [place] [address] PCP - General Internal Medicine 02/14/25 Aba Linares DO Historical LMR Provider 02/23/17 Additional Source Comments The information contained in this document represents components of the legal health record. It is not the complete legal health record.[facility]
--- OUTSIDE RECORDS SUMMARY | 2025-03-26 12:02 | XMS_ITS | Encounter Summary ---
Author Organization [facility] Address [address] [place] [address] [place] [address] Phone Care Team Providers Care Carpet Sewer Name Role Phone Aba Linares DO Unavailable Bigda, Aba A DO Primary Care Provider [phone] Bigda, Aba A DO Primary Care Provider [phone] Encounter Details Date Type Department Care Team (Late st Contact Info) Description 12/11/2024 Procedure Pass OR Admitting Dept - Virtual Department [address] [place], [place] [id number] Social History Tobacco Use Types Packs/Day Years [...] EST Appointment [facility] [address] [place] [phone] Shellie Elena RN [address] [place] [address] 03/31/2025 3:30 AM EST Appointment [facility] [address] [place] [address] Shellie Elena RN [address] [place] [address] 04/04/2025 3:00 AM EST Appointment [facility] [address] [place] [phone] Shellie Elena RN [address] [place] [address] 04/07/2025 3:00 AM EST Appointment [facility] [address] [place] [phone] Shellie Elena RN [address] [place] [address] 04/11/2025 3:00 AM EST Appointment [facility] [address] [place] [phone] Shellie Elena RN [address] [place] [address] 04/14/2025 2:00 AM EST Appointment [facility] [address] [place] [phone] Shellie Elena RN [address] [place] [address] 04/18/2025 1:30 AM EST Appointment [facility] [address] [place] [phone] Shellie Elena RN [address] [place] [address] 04/21/2025 1:30 AM EST Appointment [facility] [address] [place] [phone] Shellie Elena RN [address] [place] [address] 04/25/2025 1:30 AM EST Appointment [facility] [address] [place] [phone] Shellie Elena RN [address] [place] [address] documented as of this encounter Visit Diagnoses Not on filedocumented in this encounter Additional Health Concerns Infection Onset Date 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 It is not the complete legal health record.[facility]
--- OUTSIDE RECORDS SUMMARY | 2025-03-26 12:02 | XMS_ITS | Encounter Summary ---
Author Organization [facility] Address [address] [place] [address] [place] [address] Phone Care Team Providers Care Sports Doctor Name Role Phone Aba Linares DO Unavailable Bigda, Aba A DO Primary Care Provider [phone] Bigda, Aba A DO Primary Care Provider [phone] Encounter Details Date Type Department Care Team (Late st Contact Info) Description 12/16/2024 Transcribe Orders Virtual Department [address] [place], [place] [phone] Maura Colmenares, PAInderC [address] [place] [address], [address] [place] [address] [email or web address] Social History Tobacco Use Types Packs/Day Years [...] EST Appointment [facility] [address] [place] [address] Shellie Elena RN [address] [place] [phone] [email or web address] 03/31/2025 3:30 AM EST Appointment [facility] [address] [place], [place] [phone] Shellie Elena RN [address] [place] [address] [email or web address] 04/04/2025 3:00 AM EST Appointment [facility] [address] [place], [place] [phone] Shellie Elena RN [address] [place] [address] [email or web address] 04/07/2025 3:00 AM EST Appointment [facility] [address] [place] [address] Shellie Elena RN [address] [place] [address] [email or web address] 04/11/2025 3:00 AM EST Appointment [facility] [address] [place] [phone] Shellie Elena RN [address] [place] [address] [email or web address] 04/14/2025 2:00 AM EST Appointment [facility] [address] [place] [phone] Shellie Elena RN [address] [place] [address] [email or web address] 04/18/2025 1:30 AM EST Appointment [facility] [address] [place] [phone] Shellie Elena RN [address] [place] [address] [email or web address] 04/21/2025 1:30 AM EST Appointment [facility] [address] [place] [phone] Shellie Elena RN [address] [place] [address] [email or web address] 04/25/2025 1:30 AM EST Appointment [facility] [address] [place] [phone] Shellie Elena RN [address] [place] [address] [email or web address] documented as of this encounter Visit Diagnoses Not on filedocumented in this encounter Additional Health Concerns Infection Onset Date Last 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 It is not the complete legal health record.[facility]
--- OUTSIDE RECORDS SUMMARY | 2025-03-26 12:03 | XMS_ITS | Encounter Summary ---
Author Organization [facility] Address [address] [place] [address] Phone Care Team Providers Care Street Supervisor Name Role Phone Aba Linares DO Unavailable Bigda, Aba A DO Primary Care Provider [phone] Bigda, Aba A DO Primary Care Provider [phone] Encounter Details Date Type Department Care Team (Late st Contact Info) Description 12/16/2024 Procedure Pass [facility], Ct Scan - [address] [address] Social History Tobacco Use Types Packs/Day Years [...] Description 03/28/2025 3:00 AM EST Appointment [facility] [address] [place] [phone] Shellie Elena RN [address] [place] [phone] [email or web address] 03/31/2025 3:30 AM EST Appointment [facility] [address] [place] [address] Shellie Elena RN [address] [place] [address] [email or web address] 04/04/2025 3:00 AM EST Appointment [facility] [address] [place] [address] Shellie Elena RN [address] [place] [address] [email or web address] 04/07/2025 3:00 AM EST Appointment [facility] [address] [place] [address] Shellie Elena RN [address] [place] [address] [email or web address] 04/11/2025 3:00 AM EST Appointment [facility] [address] [place] [phone] Shellie Elena RN [address] [place] [address] [email or web address] 04/14/2025 2:00 AM EST Appointment [facility] [address] [place] [phone] Shellie Elena RN [address] [place] [address] [email or web address] 04/18/2025 1:30 AM EST Appointment [facility] [address] [place] [phone] Shellie Elena RN [address] [place] [address] [email or web address] 04/21/2025 1:30 AM EST Appointment [facility] [address] [place] [phone] Shellie Elena RN [address] [place] [address] [email or web address] 04/25/2025 1:30 AM EST Appointment [facility] [address] [place] [phone] Shellie Elena RN [address] [place] [address] [email or web address] documented as of this encounter Visit Diagnoses Not on filedocumented in this encounter Additional Health Concerns Infection Onset Date Last Indicated Resolved 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 It is not the complete legal health record.[facility]
--- OUTSIDE RECORDS SUMMARY | 2025-03-26 12:05 | XMS_ITS | Encounter Summary ---
Author Organization [facility] Address [address] [place] [address] Phone Care Team Providers Care Nut Roaster Helper Name Role Phone Aba Linares DO Unavailable Bigda, Aba A DO Primary Care Provider [phone] Bigda, Aba A DO Primary Care Provider [phone] Encounter Details Date Type Department Care Team (Late st Contact Info) Description 10/09/2024 Procedure Pass [facility], Ct Scan - [address] [id number] Social History Tobacco Use Types Packs/Day Years Used Date Smoking Tobacco: Former Cigarettes 1 41 0 10/01/1978 - 10/02/2019 Smokeless Tobacco: Never Alcohol Use Standard Drinks/Week Comments Not Currently 12 (1 standard drink = 0.6 oz pu re alcohol) Home Health Assessment: Transportation Answer Date Recorded Lack of Transportation (Medical) No 07/03/2024 Lack of Transportation (Non-Medical) No 07/03/2024 Patient Unable or Declines to Respond No 07/03/2024 Education Answer Date Recorded Are you interested [...] Description 03/28/2025 3:00 AM EST Appointment [facility] [address] [place] [phone] Shellie Elena RN [address] [place] [address] [email or web address] 03/31/2025 3:30 AM EST Appointment [facility] [address] [place] [address] Shellie Elena RN [address] [place] [address] [email or web address] 04/04/2025 3:00 AM EST Appointment [facility] [address] [place] [address] Shellie Elena RN [address] [place] [address] [email or web address] 04/07/2025 3:00 AM EST Appointment [facility] [address] [place] [address] Shellie Elena RN [address] [place] [address] [email or web address] 04/11/2025 3:00 AM EST Appointment [facility] [address] [place] [phone] Shellie Elena RN [address] [place] [address] [email or web address] 04/14/2025 2:00 AM EST Appointment [facility] [address] [place] [phone] Shellie Elena RN [address] [place] [address] [email or web address] 04/18/2025 1:30 AM EST Appointment [facility] [address] [place] [phone] Shellie Elena RN [address] [place] [address] [email or web address] 04/21/2025 1:30 AM EST Appointment [facility] [address] [place] [phone] Shellie Elena RN [address] [place] [address] [email or web address] 04/25/2025 1:30 AM EST Appointment [facility] [address] [place] [phone] Shellie Elena RN [address] [place] [address] [email or web address] documented as of this encounter Visit Diagnoses Not on filedocumented in this encounter Additional Health Concerns Infection Onset Date Last Indicated Resolved 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 It is not the complete legal health record.[facility]
--- OUTSIDE RECORDS SUMMARY | 2025-03-26 12:05 | XMS_ITS | Encounter Summary ---
Author Organization [facility] Address [address] [place] [address] Phone Care Team Providers Care Infusion Pharmacist Name Role Phone Aba Linares Unavailable Aba Linares Marlen Primary Care Provider [phone] Encounter Details Date Type Department Care Team (Late st Contact Info) Description 03/04/2025 Procedure Pass [facility], Ct Scan - [facility] [address] [place], [place] [phone] Social History Tobacco Use Types Packs/Day Years [...] EST Appointment [facility] [address] [place] [address] Shellie Elena RN [address] [place] [address] 03/31/2025 3:30 AM EST Appointment [facility] [address] [place] [address] Shellie Elena RN [address] [place] [address] 04/04/2025 3:00 AM EST Appointment [facility] [address] [place], [place] [phone] Shellie Elena RN [address] [place] [address] 04/07/2025 3:00 AM EST Appointment [facility] [address] [place] [address] Shellie Elena RN [address] [place] [address] [place] [address] 04/11/2025 3:00 AM EST Appointment [facility] [address] [place] [phone] Shellie Elena RN [address] [place] [address] 04/14/2025 2:00 AM EST Appointment [facility] [address] [place] [phone] Shellie Elena RN [address] [place] [address] 04/18/2025 1:30 AM EST Appointment [facility] [address] [place] [phone] Shellie Elena RN [address] [place] [address] 04/21/2025 1:30 AM EST Appointment [facility] [address] [place] [phone] Shellie Elena RN [address] [place] [address] 04/25/2025 1:30 AM EST Appointment [facility] [address] [place] [phone] Shellie Elena RN [address] [place] [address] documented as of this encounter Visit Diagnoses Not on filedocumented in this encounter Additional Health Concerns Infection Onset Date Last Indicated Resolved 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 It is not the complete legal health record.[facility]
--- OUTSIDE RECORDS SUMMARY | 2025-03-26 12:06 | XMS_ITS | Encounter Summary ---
Author Organization [facility] Address [address] [place] [address] Phone Care Team Providers Care Clerk Guide Name Role Phone Milagros, Aba Gee DO Unavailable Bigda, Aba A DO Primary Care Provider [phone] Bigda, Aba A DO Primary Care Provider [phone] Reason for Referral * MRI/CAT Scan - Closed Specialty Diagnoses / Procedures Referred By Contac t Referred To Contact Radiology Diagnoses Stage III pressure ulcer of sacral region Osteomyelitis, unspecified site, unspecified type Procedures CT Abdomen/Pelvis CHG CT SCAN,ABDOMENT AND PELVIS,W CONTRAST CHG CT SCAN,ABDOMENT AND PELVIS,COMBO CHG CT SCAN,ABDOMENT AND PELVIS,W/O CONTRAST Tone Cuevas NP [address] [place] [address] Phone: tel: fax: mailto:[email or web address] Referral ID Status Reason Start Date Expiration Date Visits Re quested Visits Authorized [id number] Closed 10/09/2024 11/16/2024 1 1 Encounter Details Date Type Department Care Team (Latest Contact Info) Description 10/09/2024 Transcribe Orders [facility] Department [address] [place], [place] [id number] Tone Cuevas NP [address] [place] [address] [email or web address] Stage III pressure ulcer of sacral region (Primary Dx); Osteomyelitis, unspecified site, unspecified type Social History Tobacco Use Types Packs/Day Years [...] Appointment [facility] [address] [place] [address] Shellie Elena RN [address] [place] [address] [email or web address] 03/31/2025 3:30 AM EST Appointment [facility] [address] [place] [address] Shellie Elena RN [address] [place] [address] [email or web address] 04/04/2025 3:00 AM EST Appointment [facility] [address] [place] [address] Shellie Elena RN [address] [place] [address] [email or web address] 04/07/2025 3:00 AM EST Appointment [facility] [address] [place] [address] Shellie Elena RN [address] [place] [address] [email or web address] 04/11/2025 3:00 AM EST Appointment [facility] [address] [place] [address] Shellie Elena RN [address] [place] [address] [email or web address] 04/14/2025 2:00 AM EST Appointment [facility] [address] [place] [address] Shellie Elena RN [address] [place] [address] [email or web address] 04/18/2025 1:30 AM EST Appointment [facility] [address] [place], [place] [phone] Shellie Elena RN [address] [place] [address] [email or web address] 04/21/2025 1:30 AM EST Appointment [facility] [address] [place], [place] [phone] Shellie Elena RN [address] [place] [address] [email or web address] 04/25/2025 1:30 AM EST Appointment [facility] [address] [place], [place] [phone] Shellie Elena RN [address] [place] [address] [email or web address] Scheduled Orders Name Type Priority Associated Diagnoses Orde r Schedule XR Pelvis Imaging Routine Stage III pressure ulcer of sacral region Osteomyelitis, unspecified site, unspecified type Expected: 10/09/2024, Expires: 10/09/2025 documented as of this encounter Results * CT ABDOMEN/PELVIS WITH CONTRAST (10/17/2024 6:40 PM EDT) Anatomical Region Laterality Modality Abdomen, Pelvis Computed Tomogra phy 10/23/2024 2:29 PM EDT Impressions 10/23/2024 3:20 PM EDT 1. Incidental demonstration of obstructing distal left ureteral calculus with moderate to marked hydroureter and hydronephrosis. 2. Density changes adjacent to the lower sacrum and coccyx with bony remodeling in keeping with effects of chronic osteomyelitis. 3. Cholelithiasis without evidence of superimposed acute cholecystitis. 4. Pelvic floor insufficiency (low-lying rectum that contains moderate quantity retained fecal material approaching impaction but without proximal colonic dilation). 5. Ordering provider has been notified about incidental finding of distal left ureteral obstruction and finding of coccygeal osteomyelitis. Narrative 10/23/2024 3:[address] ABDOMEN/PELVIS WITH CONTRAST Referring clinician's provided indication for this examination in [facility]: Outside Radiology Order; osteomyelitis Clinical information obtained from EMR: Past history of neck injury with secondary quadriplegia. Neurogenic bladder with suprapubic catheter and baclofen pump in place. Paroxysmal atrial fibrillation treated with Apixaban. Stage IV sacral pressure ulcer. Question sacral osteomyelitis. TECHNIQUE: Multidetector-row CT of the abdomen and pelvis was performed after administration of intravenous contrast using tailored dose modulation techniques. Images were reconstructed in the axial, coronal, and sagittal planes. COMPARISON: CT abdomen and pelvis with IV contrast 03/12/2023 and 12/09/2020. FINDINGS: Lower Chest: Mild dependent density both lung bases. No consolidation or effusion. Moderate size sliding-type hiatal hernia. Liver: Normal. No focal lesions. Biliary: Nondistended gallbladder containing peripheral hyperdensity/calcification posterior mid to inferior gallbladder suggesting element of porcelain gallbladder. There are discrete alterations in intraluminal density suggesting cholelithiasis. No intra or extrahepatic biliary dilation. Spleen: Borderline splenomegaly, spleen measuring just under 13 cm AP and craniocaudal diameter. No focal abnormality. Pancreas: Normal. No masses or ductal dilatation. Adrenal Glands: Normal. No nodules. Kidneys/Ureters: There is new moderate to severe left-sided hydroureter above 8.4 x 11.0 mm distal ureteral hyperdense calculus (882 Hounsfield Unit density). Diminished intensity of left renal enhancement and moderate generalized volume loss. Additional intrarenal calculi posterior mid pole. No right-sided calculi or hydronephrosis. Posterior lateral 3.7 cm AP diameter hypodense mass that is somewhat denser than expected for simple fluid. Similar appearance on previous CT imaging. No suspicious change. Bowel: There is confluent stool within low-lying rectal fault (dentate line projects 4.6 cm below the pubococcygeal line). Stool ball extends just under 15 cm and measures 7.5 x 8.0 cm transverse diameter. No colonic or small bowel dilation. No mural thickening or adjacent fat stranding. Peritoneum/Retroperitoneum: Normal. No masses, pneumoperitoneum, or fluid. Lymph Nodes: Normal. No lymphadenopathy. Pelvic Organs/Bladder: Suprapubic catheter in place within decompressed urinary bladder. Vessels: Normal. No abdominal aortic aneurysm. Bones/Soft Tissues: There is confluent soft tissue density adjacent to the lower sacrum. Sclerosis and remodeling of the coccyx evident exhibiting an attenuated curved appearance. Milder density changes anterior to the coccyx without coalescence into a discrete, drainable collection. Degenerative changes about both hips and within the spine. Multilevel spurring. Baclofen pump evident within lateral soft tissues of the lower abdomen/upper pelvis. Tubing enters the central canal at the T12-L1 level. Procedure Note Fox Macias MD - 10/23/2024 CT ABDOMEN/PELVIS WITH CONTRAST Referring clinician's provided indication for this examination in Epic:Outside Radiology Order; osteomyelitis Clinical information obtained from EMR: Past history of neck injury withsecondary quadriplegia. Neurogenic bladder with suprapubic catheter andbaclofen pump in place. Paroxysmal atrial fibrillation treated withApixaban. Stage IV sacral pressure ulcer. Question sacral osteomyelitis. TECHNIQUE: Multidetector-row CT of the abdomen and pelvis was performedafter administration of intravenous contrast using tailored dosemodulation techniques. Images were reconstructed in the axial, coronal,and sagittal planes. COMPARISON: CT abdomen and pelvis with IV contrast 03/12/2023 and12/09/2020. FINDINGS: Lower Chest: Mild dependent density both lung bases. No consolidation oreffusion. Moderate size sliding-type hiatal hernia. Liver: Normal. No focal lesions. Biliary: Nondistended gallbladder containing peripheralhyperdensity/calcification posterior mid to inferior gallbladdersuggesting element of porcelain gallbladder. There are discretealterations in intraluminal density suggesting cholelithiasis. No intra orextrahepatic biliary dilation. Spleen: Borderline splenomegaly, spleen measuring just under 13 cm AP andcraniocaudal diameter. No focal abnormality. Pancreas: Normal. No masses or ductal dilatation. Adrenal Glands: Normal. No nodules. Kidneys/Ureters: There is new moderate to severe left-sided hydroureterabove 8.4 x 11.0 mm distal ureteral hyperdense calculus (882 HounsfieldUnit density). Diminished intensity of left renal enhancement and moderategeneralized volume loss. Additional intrarenal calculi posterior mid pole.No right-sided calculi or hydronephrosis. Posterior lateral 3.7 cm APdiameter hypodense mass that is somewhat denser than expected for simplefluid. Similar appearance on previous CT imaging. No suspicious change. Bowel: There is confluent stool within low-lying rectal fault (dentateline projects 4.6 cm below the pubococcygeal line). Stool ball extendsjust under 15 cm and measures 7.5 x 8.0 cm transverse diameter. No colonicor small bowel dilation. No mural thickening or adjacent fat stranding. Peritoneum/Retroperitoneum: Normal. No masses, pneumoperitoneum, orfluid. Lymph Nodes: Normal. No lymphadenopathy. Pelvic Organs/Bladder: Suprapubic catheter in place within decompressedurinary bladder. Vessels: Normal. No abdominal aortic aneurysm. Bones/Soft Tissues: There is confluent soft tissue density adjacent to thelower sacrum. Sclerosis and remodeling of the coccyx evident exhibiting anattenuated curved appearance. Milder density changes anterior to thecoccyx without coalescence into a discrete, drainable collection.Degenerative changes about both hips and within the spine. Multilevelspurring. Baclofen pump evident within lateral soft tissues of the lowerabdomen/upper pelvis. Tubing enters the central canal at the [id number]-[id number]. IMPRESSION: 1. Incidental demonstration of obstructing distal left ureteral calculuswith moderate to marked hydroureter and hydronephrosis. 2. Density changes adjacent to the lower sacrum and coccyx with bonyremodeling in keeping with effects of chronic osteomyelitis. 3. Cholelithiasis without evidence of superimposed acute cholecystitis. 4. Pelvic floor insufficiency (low-lying rectum that contains moderatequantity retained fecal material approaching impaction but withoutproximal colonic dilation). 5. Ordering provider has been notified about incidental finding of distalleft ureteral obstruction and finding of coccygeal osteomyelitis. 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 It is not the complete legal health record.[facility]
--- OUTSIDE RECORDS SUMMARY | 2025-03-26 12:06 | XMS_ITS | Encounter Summary ---
Author Organization [facility] Address [address] [place] [address] Phone Care Team Providers Care Key Account Director Name Role Phone Aba Linares DO Unavailable Bigda, Aba A DO Primary Care Provider [phone] Bigda, Aba A DO Primary Care Provider [phone] Encounter Details Date Type Department Care Team (Late st Contact Info) Description 10/27/2024 Home Health [facility] [address] [place] [phone] Cami Hopper RN [address] [place] [address] [email or web address] Social History Tobacco Use Types Packs/Day Years [...] Appointment [facility] [address] [place] [address] Shellie Elena RN [address] [place] [address] 03/31/2025 3:30 AM EST Appointment [facility] [address] [place], [place] [phone] Shellie Elena RN [address] [place] [address] 04/04/2025 3:00 AM EST Appointment [facility] [address] [place], [place] [phone] Shellie Elena RN [address] [place] [address] 04/07/2025 3:00 AM EST Appointment [facility] [address] [place] [address] Shellie Elena RN [address] [place] [address] 04/11/2025 3:00 AM EST Appointment [facility] [address] [place] [phone] Shellie Elena RN [address] [place] [address] 04/14/2025 2:00 AM EST Appointment [facility] [address] [place] [phone] Shellie Elena RN [address] [place] [address] 04/18/2025 1:30 AM EST Appointment [facility] [address] [place] [phone] Shellie Elena RN [address] [place] [address] 04/21/2025 1:30 AM EST Appointment [facility] [address] [place] [phone] Shellie Elena, KARENA [address] [place] [address] 04/25/2025 1:30 AM EST Appointment [facility] [address] [place] [address] Shellie Elena RN [address] [place] [address] documented as of this encounter Visit Diagnoses Not on filedocumented in this encounter Additional Health Concerns Infection Onset Date Last Indicated Resolved 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 It is not the complete legal health record.[facility]
--- OUTSIDE RECORDS SUMMARY | 2025-03-26 12:07 | XMS_ITS | Encounter Summary ---
Author Organization [facility] Address [address] [place] [address] [place] [address] Phone Care Team Providers Care Blade Bender Furnace Tender Name Role Phone Aba Linares DO Unavailable Man Ambriz MD Unavailable [phone] Bigda, Aba A DO Primary Care Provider [phone] Bigda, Aba A DO Primary Care Provider [phone] Encounter Details Date Type Department Care Team (Late st Contact Info) Description 02/17/2021 Documentation [facility] [address] [place] [address] Cecilia Garcia, RN [address] [place] [phone] [email or web address] Social History Tobacco Use Types Packs/Day Years [...] on file documented as of this encounter Nursing Notes * Cecilia Garcia, KARENA - 02/17/2021 10:08 AM EDT SPT placement report sent to nurse Peggy at in [place]. Pt will have f/u with urologist at [facility]. Pt states his SPT should be flushed TID - no indication inchart or orders for flushing. SPT functioning properly according to Peggy. documented in this encounter Plan of Treatment Upcoming Encounters Date Type Department Care Team (Late st Contact Info) Description 03/28/2025 3:00 AM EST Appointment [facility] [address] [place] [phone] Shellie Elena RN [address] [place] [phone] [email or web address] 03/31/2025 3:30 AM EST Appointment [facility] [address] [place] [phone] Shellie Elena RN [address] [place] [address] [email or web address] 04/04/2025 3:00 AM EST Appointment [facility] [address] [place] [address] Shellie Elena RN [address] [place] [address] [email or web address] 04/07/2025 3:00 AM EST Appointment [facility] [address] [place] [address] Shellie Elena RN [address] [place] [address] [email or web address] 04/11/2025 3:00 AM EST Appointment [facility] [address] [place] [address] Shellie Elena RN [address] [place] [address] [email or web address] 04/14/2025 2:00 AM EST Appointment [facility] [address] [place] [phone] Shellie Elena RN [address] [place] [address] [email or web address] 04/18/2025 1:30 AM EST Appointment [facility] [address] [place] [phone] Shellie Elena RN [address] [place] [address] [email or web address] 04/21/2025 1:30 AM EST Appointment [facility] [address] [place] [phone] Shellie Elena RN [address] [place] [address] [email or web address] 04/25/2025 1:30 AM EST Appointment [facility] [address] [place] [phone] Shellie Elena RN [address] [place] [address] documented as of this encounter Visit Diagnoses Not on filedocumented in this encounter Additional Health Concerns Infection Onset Date Last Indicated Resolved 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 It is not the complete legal health record.[facility]
--- OUTSIDE RECORDS SUMMARY | 2025-03-26 12:07 | XMS_ITS | Encounter Summary ---
Author Organization [facility] Address [address] [place] [address] [address] [place] [address] Phone Care Team Providers Care Construction Technology Instructor Name Role Phone Milagros Aba Gee DO Unavailable Man Ambriz MD Unavailable Milagros, Aba Gee DO Primary Care Provider [phone] Milagros, Aba Gee DO Primary Care Provider [phone] Encounter Details Date Type Department Care Team (Late st Contact Info) Description 03/04/2020 Transcribe Orders Virtual Department [address] [place] [address] Aba Linares DO [address] [facility] [place] [address] [place] [address] Screening for AAA (abdominal aortic aneurysm) (Primary Dx) Social History Tobacco Use Types Packs/Day Years [...] Appointment [facility] [address] [place] [address] Shellie Elena RN [address] [place] [address] 03/31/2025 3:30 AM EST Appointment [facility] [address] [place] [address] Shellie Elena RN [address] [place] [address] 04/04/2025 3:00 AM EST Appointment [facility] [address] [place] [phone] Shellie Elena RN [address] [place] [address] 04/07/2025 3:00 AM EST Appointment [facility] [address] [place] [address] Shellie Elena RN [address] [place] [address] 04/11/2025 3:00 AM EST Appointment [facility] [address] [place], [place] [phone] Shellie Elena RN [address] [place] [address] 04/14/2025 2:00 AM EST Appointment [facility] [address] [place] [address] Shellie Elena RN [address] [place] [address] 04/18/2025 1:30 AM EST Appointment [facility] [address] [place] [address] Shellie Elena RN [address] [place] [address] 04/21/2025 1:30 AM EST Appointment [facility] [address] [place] [address] Shellie Elena RN [address] [place] [address] 04/25/2025 1:30 AM EST Appointment [facility] [address] [place] [address] Shellie Elena RN [address] [place] [address] documented as of this encounter Visit Diagnoses Diagnosis Screening for AAA (abdominal aortic aneurysm)- Primary Screening for other and unspecified cardiovascular conditions documented in this encounter Additional Health Concerns Infection Onset Date Last Indicated Resolved Time CoV-Risk Comment:Per note documentation 12/09/2020 12/09/2020 9:31 PM EDT 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 It is not the complete legal health record.[facility]
--- OUTSIDE RECORDS SUMMARY | 2025-03-26 12:07 | XMS_ITS | Encounter Summary ---
Author Organization [facility] Address [address] [place] [address] [place] [address] Phone Care Team Providers Care Envelope Machine Adjuster Name Role Phone Aba Linares DO Unavailable Bigda, Aba A DO Primary Care Provider [phone] Bigda, Aba A DO Primary Care Provider [phone] Encounter Details Date Type Department Care Team (Late st Contact Info) Description 08/29/2024 Procedure Pass [facility] Endoscopy Admitting Dept Virtual Department [address] [place], [place] [id number] Social History Tobacco Use Types Packs/Day Years [...] EST Appointment [facility] [address] [place] [phone] Shellie Elena RN [address] [place] [phone] [email or web address] 03/31/2025 3:30 AM EST Appointment [facility] [address] [place] [address] Shellie Elena RN [address] [place] [phone] [email or web address] 04/04/2025 3:00 AM EST Appointment [facility] [address] [place] [phone] Shellie Elena RN [address] [place] [address] [email or web address] 04/07/2025 3:00 AM EST Appointment [facility] [address] [place] [phone] Shellie Elena RN [address] [place] [address] [email or web address] 04/11/2025 3:00 AM EST Appointment [facility] [address] [place] [phone] Shellie Elena RN [address] [place] [address] [email or web address] 04/14/2025 2:00 AM EST Appointment [facility] [address] [place] [phone] Shellie Elena RN [address] [place] [address] [email or web address] 04/18/2025 1:30 AM EST Appointment [facility] [address] [place] [phone] Shellie Elena RN [address] [place] [address] [email or web address] 04/21/2025 1:30 AM EST Appointment [facility] [address] [place] [phone] Shellie Elena RN [address] [place] [address] [email or web address] 04/25/2025 1:30 AM EST Appointment [facility] [address] [place] [phone] Shellie Elena RN [address] [place] [address] [email or web address] documented as of this encounter Visit Diagnoses Not on filedocumented in this encounter Additional Health Concerns Infection Onset Date Last Indicated Resolved 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 It is not the complete legal health record.[facility]
--- OUTSIDE RECORDS SUMMARY | 2025-03-26 12:08 | XMS_ITS | Encounter Summary ---
Author Organization [facility] Address [address] [place] [address] [place] [address] Phone Care Team Providers Care Agricultural Lender Name Role Phone Aba Linares DO Unavailable Bigda, Aba A DO Primary Care Provider [phone] Bigda, Aba A DO Primary Care Provider [phone] Encounter Details Date Type Department Care Team (Late st Contact Info) Description 03/14/2023 Procedure Pass [facility] [address] [place], [place] [id number] Social History Tobacco Use Types Packs/Day Years Used Date Smoking Tobacco: Former Cigarettes 1 41 0 10/01/1978 - 10/02/2019 Smokeless Tobacco: Never Alcohol Use Standard Drinks/Week Comments Not Currently 12 (1 standard drink = 0.6 oz pu re alcohol) Education Answer Date Recorded Are you interested [...] as food, clothing, or medical care? No 03/11/2023 In the past 12 months have y ou been in a relationship with a person who hurts, threatens, or tries to control you? No 03/11/2023 Are you denied basic needs s uch as food, clothing, or medical care? No 03/11/2023 In the past 12 months have y ou been in a relationship with a person who hurts, threatens, or tries to control you? No 03/11/2023 Sex and Gender Information Value Date Recorded Sex Assigned at Male 12/03/2022 12:49 PM EDT Legal Sex Male 9:59 PM EDT Gender Identity Male 12/03/2022 12:49 PM EDT Sexual Orientation Not on file documented as of this encounter Plan of Treatment Upcoming Encounters Date Type Department Care Team (Late st Contact Info) Description 03/28/2025 3:00 AM EST Appointment [facility] [address] [place] [phone] Shellie Elena RN [address] [place] [phone] 03/31/2025 3:30 AM EST Appointment [facility] [address] [place] [address] Shellie Elena RN [address] [place] [phone] 04/04/2025 3:00 AM EST Appointment [facility] [address] [place], [place] [phone] Shellie Elena RN [address] [place] [address] 04/07/2025 3:00 AM EST Appointment [facility] [address] [place] [phone] Shellie Elena RN [address] [place] [address] 04/11/2025 3:00 AM EST Appointment [facility] [address] [place] [phone] Shellie Elena RN [address] [place] [address] 04/14/2025 2:00 AM EST Appointment [facility] [address] [place] [phone] Shellie Elena RN [address] [place] [address] 04/18/2025 1:30 AM EST Appointment [facility] [address] [place] [phone] Shellie Elena RN [address] [place] [address] 04/21/2025 1:30 AM EST Appointment [facility] [address] [place] [phone] Shellie Elena RN [address] [place] [address] 04/25/2025 1:30 AM EST Appointment [facility] [address] [place] [phone] Shellie Elena RN [address] [place] [address] documented as of this encounter Visit Diagnoses Not on filedocumented in this encounter Additional Health Concerns Infection Onset Date 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 It is not the complete legal health record.[facility]
--- OUTSIDE RECORDS SUMMARY | 2025-03-26 12:08 | XMS_ITS | Encounter Summary ---
Author Organization [facility] Address [address] [place] [address] [place] [address] Phone Care Team Providers Care Cardiovascular Sonographer Name Role Phone Aba Linares DO Unavailable Bigda, Aba A DO Primary Care Provider Bigda, Aba A DO Primary Care Provider [phone] Encounter Details Date Type Department Care Team (Late st Contact Info) Description 03/27/2023 Procedure Pass [facility] Cardiovascular And Interventional Radiology [address] [place], [place] [phone] Social History Tobacco Use Types Packs/Day Years [...] EST Appointment [facility] [address] [place] [phone] Shellie Elena RN [address] [place] [phone] [email or web address] 03/31/2025 3:30 AM EST Appointment [facility] [address] [place], [place] [phone] Shellie Elena RN [address] [place] [address] [email or web address] 04/04/2025 3:00 AM EST Appointment [facility] [address] [place], [place] [phone] Shellie Elena RN [address] [place] [address] [email or web address] 04/07/2025 3:00 AM EST Appointment [facility] [address] [place], [place] [phone] Shellie Elena RN [address] [place] [phone] [email or web address] 04/11/2025 3:00 AM EST Appointment [facility] [address] [place] [phone] Shellie Elena RN [address] [place] [address] [email or web address] 04/14/2025 2:00 AM EST Appointment [facility] [address] [place] [phone] Shellie Elena RN [address] [place] [address] [email or web address] 04/18/2025 1:30 AM EST Appointment [facility] [address] [place] [phone] Shellie Elena RN [address] [place] [address] [email or web address] 04/21/2025 1:30 AM EST Appointment [facility] [address] [place] [phone] Shellie Elena RN [address] [place] [address] [email or web address] 04/25/2025 1:30 AM EST Appointment [facility] [address] [place] [phone] Shellie Elena RN [address] [place] [address] documented as of this encounter Visit Diagnoses Not on filedocumented in this encounter Additional Health Concerns Infection Onset Date Last Indicated 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 It is not the complete legal health record.[facility]
--- OUTSIDE RECORDS SUMMARY | 2025-03-26 12:08 | XMS_ITS | Encounter Summary ---
Author Organization [facility] Address [address] [place] [address] [place] [address] Phone Care Team Providers Care Parts Finisher Name Role Phone Aba Linares DO Unavailable Bigda, Aba A DO Primary Care Provider [phone] Bigda, Aba A DO Primary Care Provider Encounter Details Date Type Department Care Team (Late st Contact Info) Description 03/12/2023 Procedure Pass [facility], [facility] Scan - [address] [address] Social History Tobacco Use Types Packs/Day Years [...] Date of Assessment Author No Risk Indicated 03/12/2023 12:07 AM EDT Jimena Hameed, RN * [place] Suicide Severity Rating Scale (Screener/Recent Self-Report) Question Answer Date of Assessment Author 1. Wish to be (Past 1 Month) No 023 12:07 AM MIKET Jimena Ansari, KARENA 2. Non-Specific Active Suici isidro Thoughts (Past 1 Month) No 03/12/2023 12:07 AM MIKET Daiana Ansari, RN 6. Suicidal Behavior (Lifetime) No 12:07 AM MIKET Jimena Ansari, RN documented as of this encounter Plan of Treatment Upcoming Encounters Date Type Department Care Team (Late st Contact Info) Description 03/28/2025 3:00 AM EST Appointment [facility] [address] [place], [place] [phone] Shellie Elena RN [address] [place] [address] 03/31/2025 3:30 AM EST Appointment [facility] [address] [place], [place] [phone] Shellie Elena, KARENA [address] [place] [address] 04/04/2025 3:00 AM EST Appointment [facility] [address] [place] [phone] Shellie Elena RN [address] [place] [address] 04/07/2025 3:00 AM EST Appointment [facility] [address] [place] [phone] Shellie Elena RN [address] [place] [address] 04/11/2025 3:00 AM EST Appointment [facility] [address] [place] [phone] Shellie Elena RN [address] [place] [address] 04/14/2025 2:00 AM EST Appointment [facility] [address] [place] [phone] Shellie Elena RN [address] [place] [address] 04/18/2025 1:30 AM EST Appointment [facility] [address] [place] [phone] Shellie Elena RN [address] [place] [address] 04/21/2025 1:30 AM EST Appointment [facility] [address] [place] [phone] Shellie Elena RN [address] [place] [address] 04/25/2025 1:30 AM EST Appointment [facility] [address] [place] [phone] Shellie Elena, KARENA [address] [place] [address] documented as of this encounter Visit Diagnoses Not on filedocumented in this encounter Additional Health Concerns Infection Onset Date Last Indicated 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 It is not the complete legal health record.[facility]
--- OUTSIDE RECORDS SUMMARY | 2025-03-26 12:09 | XMS_ITS | Encounter Summary ---
Author Organization [facility] Address [address] [place] [address] [place] [address] Phone Care Team Providers Care Parts Casting Machine Operator Name Role Phone Aba Linares DO Unavailable Bigda, Aba A DO Primary Care Provider Bigda, Aba A DO Primary Care Provider [phone] Encounter Details Date Type Department Care Team (Late st Contact Info) Description 03/16/2023 Procedure Pass [facility] Cardiovascular And Interventional Radiology [address] [place], [place] [phone] Social History Tobacco Use Types Packs/Day Years [...] EST Appointment [facility] [address] [place] [phone] Shellie Elena RN [address] [place] [phone] [email or web address] 03/31/2025 3:30 AM EST Appointment [facility] [address] [place], [place] [phone] Shellie Elena RN [address] [place] [phone] [email or web address] 04/04/2025 3:00 AM EST Appointment [facility] [address] [place], [place] [phone] Shellie Elena RN [address] [place] [address] [email or web address] 04/07/2025 3:00 AM EST Appointment [facility] [address] [place], [place] [phone] Shellie Elena RN [address] [place] [phone] [email or web address] 04/11/2025 3:00 AM EST Appointment [facility] [address] [place] [phone] Shellie Elena RN [address] [place] [address] [email or web address] 04/14/2025 2:00 AM EST Appointment [facility] [address] [place] [phone] Shellie Elena RN [address] [place] [address] [email or web address] 04/18/2025 1:30 AM EST Appointment [facility] [address] [place] [phone] Shellie Elena RN [address] [place] [address] [email or web address] 04/21/2025 1:30 AM EST Appointment [facility] [address] [place] [phone] Shellie Elena RN [address] [place] [address] [email or web address] 04/25/2025 1:30 AM EST Appointment [facility] [address] [place] [phone] Shellie Elena RN [address] [place] [address] documented as of this encounter Visit Diagnoses Not on filedocumented in this encounter Additional Health Concerns Infection Onset Date Last Indicated 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 It is not the complete legal health record.[facility]
== END 2025-03-25 15:10 | disposition home or self-care (01) ==
LOC: HO.HCS 14:27
PROVIDERS: PCP Internal Medicine; Visit Provider Internal Medicine Cardiovascular Disease
DX: I48.0 Paroxysmal atrial fibrillation (principal)
CPT/HCPCS: 93010; 99214; G2211